=== PATIENT | female | born 1940 | race Asian ===

== ENCOUNTER 2024-04-13 18:06 | Inpatient (IN) | payer MEDICARE, MEDICAID, OTHER, SELFPAY ==
--- NOTE | 2024-04-13 15:10 | PC.SS ---
This SSD spoke with patient son Rashel, he said patient is DNR with selective treatment, send out for treatment. No spiritual care visits, he will be here on Tuesday to meet with this SSD.
--- NOTE | 2024-04-13 16:45 | EKG_ITS ---
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
[2024-04-13 18:00] VITALS: BP 124/56; PULSE 77; RESP 26; TEMP 36.6; O2SAT 98
--- NOTE | 2024-04-13 19:00 | XR_ITS ---
Examination: AP chest single view Technique: AP portable semiupright chest single view Exam date and time: April 13, 2024 at 0724 hrs. Indications: Status post tracheostomy tube placement Findings: Significant opacity left lung with volume loss Moderate right mild vascular congestion Tracheostomy tube tip 6.2 cm above segundo Impression: Interval significant atelectasis and possible pneumonia left lung, consider mucus plugging left mainstem bronchus, clinical correlation advised and follow-up recommended
[2024-04-13 19:10] VITALS: PULSE 73; RESP 18; O2SAT 95
[2024-04-13 19:26] LABS: Basophils # (Auto) 0.1 Thou/mm3 (0.0-0.2); Basophils % (Auto) 0 % (0-2.5); Eosinophils # (Auto) 0.1 Thou/mm3 (0.0-0.5); Eosinophils % (Auto) 1 % (0-10); Hematocrit 26.8 % (36.0-46.0); Hemoglobin 8.5 g/dL (12.0-16.0); Immature Granulocytes % (Auto) 1 % (0-0); Immature Granulocytes Auto 0.06 Thou/mm3 (0.00-0.00); Lymphocytes # (Auto) 1.3 Thou/mm3 (1.0-4.8); Lymphocytes % (Auto) 11 % (10-50); Mean Corpuscular HGB Conc 31.7 g/dl (31.0-37.0); Mean Corpuscular Hemoglobin 29.4 pg (25.0-35.0); Mean Corpuscular Volume 93 fL (80-100); Monocytes # (Auto) 0.8 Thou/mm3 (0.0-0.8); Monocytes % (Auto) 6 % (0-12); Neutrophils # (Auto) 10.1 Thou/mm3 (1.8-7.7); Neutrophils % (Auto) 81 % (37-80); Nucleated Red Blood Cell % 0 /100 WBC (0); Platelet Count 384 Thou/mm3 (140-440); RDW Standard Deviation 54.6 fL (36.4-46.3); Red Blood Count 2.89 Miln/mm3 (4.00-5.20); White Blood Count 12.4 Thou/mm3 (3.6-11.0)
--- NOTE | 2024-04-13 19:40 | PC.ADMIT ---
REsident was admitted to this unit under the care of Dr. Hernandez resident arrived from [facility] via gurney accompanied by Ambulance crew and RT. Resident awake upon arrival able to track, does not follow verbal commands. trach in place on blow by mist with 8L 30% fio2. No respiratory distress noted upon arrival. complete body assessment done. Skin dry and scaly throughout, Pressure injury (deep tissue injury noted to sacral area, pictures taken, initiated treatment, trace edema noted to feet elevated extremities, repositioned on her side, Hector catheter will be considered due to wound issue. Carried out most of new orders hand off report given to Shanel MONROY.
--- NOTE | 2024-04-13 19:44 | PC.NURSE ---
Resident admit from [facility] at 1804, awake and does not appear to be in any distress. Patient has oxygen in place, Blow-by. 11/24. moving all extremities. patient has two pressure area noted, on sacrum and her right side. appear to be in no pain at this time.Vital signs are within normal limits, will continue to monitor.
--- NOTE | 2024-04-13 20:00 | PC.NURSE ---
RESIDENT RESTING WITH EYES CLOSED. RESIDENT AWAKENED/OPENED EYES WHEN CALLED BY NAME. WHEN CALLED BY NAME BY OTHER NURSE, RESIDENT TURNED TO HER. NO DISTRESS/ NO DISCOMFORT NOTED. DAUGHTER ELISEO AT THE BEDSIDE.
[2024-04-13 20:17] LABS: Alanine Aminotransferase 22 U/L (10-49); Albumin, Serum 3.3 gm/dL (3.4-4.8); Albumin/Globulin Ratio 1.1 (1.2-2.2); Alkaline Phosphatase 68 U/L (46-116); Anion Gap 7 (7-16); Aspartate Amino Transferase 32 U/L (0-34); BUN/Creatinine Ratio 40 Ratio (12-20); Bilirubin,Total 0.7 mg/dL (0.3-1.2); Blood Urea Nitrogen 32 mg/dL (9-23); Calcium 8.8 mg/dL (8.3-10.6); Calcium (Corrected) 9.4 mg/dL (8.5-10.1); Chloride 105 mMol/L (98-107); Creatinine (Component) 0.8 mg/dL (0.6-1.3); Globulin 3.1 gm/dL (2.3-3.5); Glucose 172 mg/dL (74-106); Osmolality,Calculated 295 (275-295); Potassium 4.2 mMol/L (3.4-5.1); Sodium 143 mMol/L (136-145); Total Protein 6.4 gm/dL (5.7-8.2); eGFR > 60 See Note
[2024-04-13 20:30] LABS: Base Excess 9 (-3-3); HCO3 33 mEq/L (20-26); Inspired Oxygen, FIO2 30 %; O2 Saturation 92 % (91-98); PCO2 42 mmHg (32.0-48.0); pH, Arterial 7.51 (7.35-7.45)
[2024-04-13 20:31] LABS: Allen Test Not Performed; Puncture Site Left Radial
[2024-04-13 20:38] LABS: PO2 59 mmHg (83-108)
[2024-04-13 20:40] VITALS: BP 119/59; PULSE 78; RESP 22; TEMP 36.8; O2SAT 97
--- NOTE | 2024-04-13 20:45 | PC.NURSE ---
DR. POND NOTIFIED OF LAB RESULTS. ABG(METABOLIC ALKALOSIS PER MD) ORDERED ABG F/U IN ONE WEEK. REVIEWED CBC AND CMP WITH DR. POND. NEW ORDERS RECEIVED TO F/U LABS IN 4 DAYS.
[2024-04-13 21:28] VITALS: BP 119/59; PULSE 78
--- NOTE | 2024-04-13 23:05 | PD.SAHP ---
Physical exam Physical Exam Vital signs: Temp Pulse Resp BP Pulse Ox O2 Del Method O2 Flow Rate 98.4 F 72 19 112/54 L 94 L Blow-by 8 04/15/24 11:46 04/15/24 11:46 04/15/24 11:46 04/15/24 11:46 04/15/24 09:00 04/14/24 17:05 04/15/24 09:00 FiO2 30 04/15/24 09:00 Narrative: Elderly female, bed bound and not moving her extremities. Comfortable and in no distress and occasionally operns her eyes and some eye tracking but no evident response to verbal commands. Constitutional Comments: VSS HEENT Exam Head: Present normocephalic and atraumatic Eye: Present PERRL ENT: Present mucous membranes moist and nares patent Neck Exam Neck: Present supple Comments: Tracheostomy in place, site clean Chest/Breast/Axilla Exam Comments: NAD Respiratory Exam Respiratory: Present chest non-tender, lungs clear, normal breath sounds and no resp distress Cardiovascular Exam Comments: Irregularly irregular pulse, S2 +, no evident murmurs or rubs Abdominal Exam Abdominal: Present soft and normoactive bowel sounds Comments: Feeding G tube in place, site clean Rectal Exam Comments: deferred Exam Comments: deferred Extremities Exam Extremities: Present edema and pulses intact Back/Spine/Pelvis Exam Comments: NAD Skin Exam Skin: Present intact Comments: Decubitus over coccyx/sacrum Neurological Exam Comments: Altered mental status secondary to h/o multiple strokes and other comorbidities. Occasional eye tracking, no cognizant response, general weakness and not mocing any of her extremities. Incontinent of B and B Rehabilitation potential Diagnosis (1) CVA (cerebrovascular accident): Status: Chronic (2) Altered mental status: Status: Chronic (3) Deep venous thrombosis: Status: Chronic (4) Decubital ulcer: Status: Chronic (5) Tracheostomy in place: Status: Chronic (6) G tube feedings: Status: Chronic Assessment & Plan Assessment: Pt bed bound with all above etilologies, chronic, and fully dependent for all care . Current medications reviewed and continued as ongoing from the previous facility and reassess Prognosis Prognosis: Poor for recovery towards any kind of independent living Goals Full support and ensure comfort HPI History of Present Illness HPI: Pt is a 83 yrs of age female being admitted to long term acute care registered nurse care at [facility] at [facility], [place], [place]. with the diagnosis of: Altered mental status, chronic and multifactorial; Multiple vascular territory strokes; h/o SVT; Chronic A-Fibrillation / DVT on anticoagulants, and bed bound with Tracheostomy and feeding G tube
[2024-04-13 23:54] VITALS: BP 142/66; PULSE 79; RESP 17; TEMP 36.2; O2SAT 98
[2024-04-14] VITALS (9 sets, daily range): BP systolic 115–136; BP diastolic 56–63; PULSE 68–85; RESP 17–21; TEMP 36.6–37; O2SAT 92–99
[2024-04-14] MEDS: IPRATROPIUM/ALBUTEROL 3 ML AMPUL.NEB INH ×2 (01:07→18:38)
[2024-04-14] MEDS: INSULIN REGULAR, HUMAN 100 UNIT/ML VIAL SC ×2 (05:30→17:26)
[2024-04-14] MEDS: AMLODIPINE 10 MG TABLET GT (09:10)
[2024-04-14] MEDS: APIXABAN 2.5 MG TABLET GT ×2 (09:10→20:27)
[2024-04-14] MEDS: VIT D3 GT (09:10)
[2024-04-14] MEDS: CALCIUM GT (09:10)
[2024-04-14] MEDS: AMIODARONE 200 MG TABLET GT (09:10)
[2024-04-14] MEDS: METOPROLOL 25 MG TABLET GT ×2 (09:10→20:27)
[2024-04-14] MEDS: SENNOSIDES 8.6 MG TABLET GT ×2 (09:10→20:28)
--- NOTE | 2024-04-14 12:49 | PC.NURSE ---
Called Dr Hernandez and verbally reported resident's EKG result, no new orders made. Verbally reported chest x-ray result with order received for mucomyst BID x 3 days, re-eval. RT Bianka made aware. Resident stable at this time. No s/s of respiratory distress noted.
[2024-04-14] MEDS: ATORVASTATIN 40 MG TABLET 80 MG GT (20:27)
[2024-04-15] VITALS (14 sets, daily range): BP systolic 112–131; BP diastolic 51–65; PULSE 55–88; RESP 16–24; TEMP 36.6–37.6; O2SAT 94–100
[2024-04-15] MEDS: INSULIN REGULAR, HUMAN 100 UNIT/ML VIAL SC ×3 (00:10→18:45)
[2024-04-15] MEDS: ACETYLCYSTEINE 10% 3 ML VIAL INH ×2 (01:06→12:46)
[2024-04-15] MEDS: IPRATROPIUM/ALBUTEROL 3 ML AMPUL.NEB INH ×4 (01:06→18:47)
[2024-04-15] MEDS: AMIODARONE 200 MG TABLET GT (09:25)
[2024-04-15] MEDS: APIXABAN 2.5 MG TABLET GT ×2 (09:26→21:02)
[2024-04-15] MEDS: AMLODIPINE 10 MG TABLET GT (09:26)
[2024-04-15] MEDS: VIT D3 GT (09:27)
[2024-04-15] MEDS: CALCIUM GT (09:27)
[2024-04-15] MEDS: METOPROLOL 25 MG TABLET GT ×2 (09:27→21:03)
[2024-04-15] MEDS: SENNOSIDES 8.6 MG TABLET GT ×2 (09:28→21:03)
[2024-04-15] MEDS: ATORVASTATIN 40 MG TABLET 80 MG GT (21:03)
[2024-04-16] VITALS (11 sets, daily range): BP systolic 114–143; BP diastolic 53–65; PULSE 62–78; RESP 16–20; TEMP 36.6–36.9; O2SAT 90–100; BMI 19.3
[2024-04-16] MEDS: IPRATROPIUM/ALBUTEROL 3 ML AMPUL.NEB INH ×4 (00:33→18:29)
[2024-04-16] MEDS: ACETYLCYSTEINE 10% 3 ML VIAL INH ×2 (00:33→12:49)
[2024-04-16] MEDS: INSULIN REGULAR, HUMAN 100 UNIT/ML VIAL SC ×3 (00:43→11:55)
[2024-04-16] MEDS: AMIODARONE 200 MG TABLET GT (08:49)
[2024-04-16] MEDS: AMLODIPINE 10 MG TABLET GT (08:49)
[2024-04-16] MEDS: VIT D3 GT (08:52)
[2024-04-16] MEDS: CALCIUM GT (08:52)
[2024-04-16] MEDS: METOPROLOL 25 MG TABLET GT ×2 (08:52→20:52)
[2024-04-16] MEDS: APIXABAN 2.5 MG TABLET GT (08:52)
[2024-04-16] MEDS: SENNOSIDES 8.6 MG TABLET GT ×2 (08:53→20:53)
--- NOTE | 2024-04-16 16:20 | PD.SAPROG ---
Progress Note - SubAcute DIAGNOSIS (1) CVA (cerebrovascular accident): Status: Chronic (2) Altered mental status: Status: Chronic (3) Deep venous thrombosis: Status: Chronic (4) Decubital ulcer: Status: Chronic (5) Tracheostomy in place: Status: Chronic (6) G tube feedings: Status: Chronic SUBJECTIVE Fever:: none GI:: unchanged Shortness of Breath:: none Pain:: none OBJECTIVE Most recent vital signs: Last Vital Signs Temp 96.8 F 04/20/24 17:22 Pulse 84 04/20/24 17:22 Resp 18 04/20/24 17:22 BP 118/52 L 04/20/24 17:22 Pulse Ox 100 04/20/24 17:22 O2 Del Method Blow-by 04/20/24 17:22 O2 Flow Rate 10 04/20/24 12:20 FiO2 40 04/20/24 12:20 Neurological:: eye tracking (sometimes) Answers questions:: no Respiratory:: lungs clear and shallow breathing Cardiovascular: RRR Abdomen: soft and nontender Tracheostomy:: to blow by Feeding per:: G tube ASSESSMENT & PLAN Assessment: Pt bed bound with all above etilologies, chronic, and fully dependent for all care . Current medications reviewed and continued as ongoing from the previous facility and reassessed. Prognosis for meaningful recovery towards independent status is very poor Plan: Current treatment reviewed and continued.
[2024-04-16] MEDS: ATORVASTATIN 40 MG TABLET 80 MG GT (20:52)
[2024-04-17] VITALS (11 sets, daily range): BP systolic 101–131; BP diastolic 55–88; PULSE 60–88; RESP 16–20; TEMP 36.4–37; O2SAT 94–100
[2024-04-17] MEDS: INSULIN REGULAR, HUMAN 100 UNIT/ML VIAL SC ×4 (00:43→16:55)
[2024-04-17] MEDS: IPRATROPIUM/ALBUTEROL 3 ML AMPUL.NEB INH ×4 (00:49→19:07)
[2024-04-17] MEDS: ACETYLCYSTEINE 10% 3 ML VIAL INH (00:49)
[2024-04-17 07:49] LABS: Basophils % (Auto) 0 % (0-2.5); Eosinophils % (Auto) 0 % (0-10); Hematocrit 23.8 % (36.0-46.0); Immature Granulocytes % (Auto) 0 % (0-0); Immature Granulocytes Auto 0.07 Thou/mm3 (0.00-0.00); Lymphocytes # (Auto) 0.9 Thou/mm3 (1.0-4.8); Lymphocytes % (Auto) 5 % (10-50); Mean Corpuscular HGB Conc 32.8 g/dl (31.0-37.0); Mean Corpuscular Hemoglobin 29.8 pg (25.0-35.0); Mean Corpuscular Volume 91 fL (80-100); Monocytes % (Auto) 6 % (0-12); Neutrophils # (Auto) 14.6 Thou/mm3 (1.8-7.7); Neutrophils % (Auto) 88 % (37-80); Nucleated Red Blood Cell % 0 /100 WBC (0); Platelet Count 366 Thou/mm3 (140-440); RDW Standard Deviation 51.4 fL (36.4-46.3); Red Blood Count 2.62 Miln/mm3 (4.00-5.20); White Blood Count 16.6 Thou/mm3 (3.6-11.0)
[2024-04-17 07:56] LABS: Hemoglobin 7.8 g/dL (12.0-16.0)
[2024-04-17] MEDS: AMLODIPINE 10 MG TABLET GT (08:08)
[2024-04-17] MEDS: AMIODARONE 200 MG TABLET GT (08:08)
[2024-04-17] MEDS: VIT D3 GT (08:09)
[2024-04-17] MEDS: METOPROLOL 25 MG TABLET GT ×2 (08:09→20:30)
[2024-04-17] MEDS: CALCIUM GT (08:09)
[2024-04-17] MEDS: SENNOSIDES 8.6 MG TABLET GT ×2 (08:10→20:30)
[2024-04-17 08:17] LABS: Alanine Aminotransferase 18 U/L (10-49); Albumin, Serum 3.2 gm/dL (3.4-4.8); Alkaline Phosphatase 63 U/L (46-116); Anion Gap 7 (7-16); Aspartate Amino Transferase 16 U/L (0-34); BUN/Creatinine Ratio 31 Ratio (12-20); Bilirubin,Total 0.5 mg/dL (0.3-1.2); Blood Urea Nitrogen 25 mg/dL (9-23); Calcium 8.4 mg/dL (8.3-10.6); Chloride 100 mMol/L (98-107); Creatinine (Component) 0.8 mg/dL (0.6-1.3); Estimated Creatinine Clearance 39.1 mL/min (>60); Globulin 3.1 gm/dL (2.3-3.5); Glucose 235 mg/dL (74-106); Osmolality,Calculated 282 (275-295); Potassium 4.7 mMol/L (3.4-5.1); Sodium 135 mMol/L (136-145); Total Protein 6.3 gm/dL (5.7-8.2); eGFR > 60 See Note
[2024-04-17] MEDS: APIXABAN 2.5 MG TABLET GT ×2 (09:12→20:30)
--- NOTE | 2024-04-17 12:55 | PC.SS ---
This SSD met with resident RP son Pepe and his , resident was asleep for most of the visit. Family denies history of anxiety and depression no trauma. Family stated they are unsure if they will bring her any clothing, Family declines to have spiritual care visits from sales account executive. They are aware if they do it will be labeled and added to inventory. This SSF will continue to make daily contact with resident and will monitor for changes in mood and behavior.
--- NOTE | 2024-04-17 15:42 | PC.DIETICIAN ---
Dietitian note: IDT agrees to increase TF formula for wound care and wt maintenance/gain. Glucerna 1.2 @ 55ml/hr x 22hrs via Gtube by pump to provide: 1210ml total vol, 1452kcal, 72g protein. Thank you
[2024-04-17] MEDS: ATORVASTATIN 40 MG TABLET 80 MG GT (20:30)
[2024-04-18] VITALS (12 sets, daily range): BP systolic 118–133; BP diastolic 54–62; PULSE 72–94; RESP 18–26; TEMP 36.2–36.9; O2SAT 92–100
[2024-04-18] MEDS: INSULIN REGULAR, HUMAN 100 UNIT/ML VIAL SC ×4 (05:15→17:15)
[2024-04-18] MEDS: IPRATROPIUM/ALBUTEROL 3 ML AMPUL.NEB INH ×4 (06:49→18:40)
[2024-04-18] MEDS: AMLODIPINE 10 MG TABLET GT (08:21)
[2024-04-18] MEDS: CALCIUM GT (08:24)
[2024-04-18] MEDS: APIXABAN 2.5 MG TABLET GT ×2 (08:24→20:27)
[2024-04-18] MEDS: VIT D3 GT (08:24)
[2024-04-18] MEDS: METOPROLOL 25 MG TABLET GT ×2 (08:24→20:27)
[2024-04-18] MEDS: SENNOSIDES 8.6 MG TABLET GT ×2 (08:25→20:28)
[2024-04-18] MEDS: MULTIVITAMIN W MINERALS 1 EACH TABLET GT (08:25)
--- NOTE | 2024-04-18 15:07 | PC.NURSE ---
Resident's latest WBC 16.6, stable , afebrile at this time. Called Dr Hernandez and made aware with order received to repeat CBC in 4 days.
--- NOTE | 2024-04-18 15:15 | PC.IP ---
Spoke with son regarding Pneumococcal vaccine and defers until he is able to read the CDC VIS. Agreed to leave copy in resident room. Will call again to confirm receipt of information after this weekend.
[2024-04-18] MEDS: ATORVASTATIN 40 MG TABLET 80 MG GT (20:27)
[2024-04-19] VITALS (11 sets, daily range): BP systolic 111–135; BP diastolic 52–64; PULSE 74–97; RESP 17–24; TEMP 36.6–36.9; O2SAT 92–100
[2024-04-19] MEDS: IPRATROPIUM/ALBUTEROL 3 ML AMPUL.NEB INH ×4 (00:20→18:35)
[2024-04-19] MEDS: INSULIN REGULAR, HUMAN 100 UNIT/ML VIAL SC ×3 (05:36→17:07)
[2024-04-19] MEDS: APIXABAN 2.5 MG TABLET GT ×2 (09:19→20:27)
[2024-04-19] MEDS: AMLODIPINE 10 MG TABLET GT (09:19)
[2024-04-19] MEDS: AMIODARONE 200 MG TABLET GT (09:19)
[2024-04-19] MEDS: SENNOSIDES 8.6 MG TABLET GT ×2 (09:20→20:28)
[2024-04-19] MEDS: VIT D3 GT (09:20)
[2024-04-19] MEDS: METOPROLOL 25 MG TABLET GT ×2 (09:20→20:28)
[2024-04-19] MEDS: CALCIUM GT (09:20)
[2024-04-19] MEDS: MULTIVITAMIN W MINERALS 1 EACH TABLET GT (09:20)
[2024-04-19] MEDS: ATORVASTATIN 40 MG TABLET 80 MG GT (20:27)
[2024-04-19 22:45] LABS: Basophils # (Auto) 0.1 Thou/mm3 (0.0-0.2); Basophils % (Auto) 0 % (0-2.5); Eosinophils % (Auto) 0 % (0-10); Immature Granulocytes % (Auto) 1 % (0-0); Immature Granulocytes Auto 0.17 Thou/mm3 (0.00-0.00); Lymphocytes % (Auto) 5 % (10-50); Mean Corpuscular HGB Conc 33.6 g/dl (31.0-37.0); Mean Corpuscular Hemoglobin 29.8 pg (25.0-35.0); Mean Corpuscular Volume 89 fL (80-100); Monocytes # (Auto) 1.6 Thou/mm3 (0.0-0.8); Monocytes % (Auto) 7 % (0-12); Neutrophils # (Auto) 19.3 Thou/mm3 (1.8-7.7); Neutrophils % (Auto) 87 % (37-80); Nucleated Red Blood Cell % 0 /100 WBC (0); Platelet Count 407 Thou/mm3 (140-440); RDW Standard Deviation 48.8 fL (36.4-46.3); Red Blood Count 2.82 Miln/mm3 (4.00-5.20); White Blood Count 22.2 Thou/mm3 (3.6-11.0)
[2024-04-19 22:48] LABS: Collection Type, Urine Catheter
[2024-04-19 22:54] LABS: Hemoglobin 8.4 g/dL (12.0-16.0)
[2024-04-19 23:13] LABS: Procalcitonin 0.45 ng/ml (0.0-0.49)
[2024-04-19 23:13] LABS: Bilirubin,Urine Negative (Negative); Blood,Urine 1+ (Negative); Clarity,Urine Clear (Clear/Hazy); Color,Urine Lt-Yellow (Lt Yel-Yel); Culture Indicated,Urine Not Indicated; Glucose, Urine Negative (Negative); Ketones,Urine Negative (Negative); Leukocyte Esterase,Urine Positive (Negative); Nitrite,Urine Negative (Negative); PH,Urine 8.5 (5.0-7.0); Protein,Urine 3+ (Neg - Trace); RBC,Urine 22 /hpf (0-3); Specific Gravity,Urine 1.014 (1.001-1.035); Squamous Epithelial Cell,Urine < 1 /hpf (0-5); WBC,Urine 8 /hpf (0-5)
[2024-04-19 23:37] LABS: COVID-19 Antigen (In-House) Negative (Negative); Influenza A Ag Negative; Influenza B Ag Negative
[2024-04-20] VITALS (11 sets, daily range): BP systolic 109–126; BP diastolic 52–78; PULSE 75–94; RESP 16–20; TEMP 36–38.4; O2SAT 92–100
[2024-04-20] MEDS: IPRATROPIUM/ALBUTEROL 3 ML AMPUL.NEB INH ×4 (00:20→18:45)
[2024-04-20] MEDS: CEFTRIAXONE 1 GM VIAL.PORT IVP ×2 (00:32→20:47)
[2024-04-20] MEDS: INSULIN REGULAR, HUMAN 100 UNIT/ML VIAL SC ×4 (00:36→17:12)
--- NOTE | 2024-04-20 00:56 | PC.NURSE ---
Was notified by staff that resident had rectal temp of 102.3 at 2100, cooling measures initiated after one hour rectal temp was 101.5. Temp protocol initiated, notified Dr Hernandez of lab results and recent chest x-ray, episodes of desaturation and elevated temps, new order to start resident on Rocephin IV daily for PNA x 5 days or until culture results are back.
[2024-04-20 08:11] LABS: Base Excess 6 (-3-3); HCO3 29 mEq/L (20-26); Inspired Oxygen, FIO2 35 %; O2 Saturation 95 % (91-98); PCO2 36 mmHg (32.0-48.0); PO2 64 mmHg (83-108); pH, Arterial 7.51 (7.35-7.45)
[2024-04-20 08:12] LABS: Allen Test Performed/OK; Puncture Site Right Radial
[2024-04-20] MEDS: AMIODARONE 200 MG TABLET GT (08:52)
[2024-04-20] MEDS: SENNOSIDES 8.6 MG TABLET GT ×2 (08:53→21:13)
[2024-04-20] MEDS: CALCIUM GT (08:53)
[2024-04-20] MEDS: APIXABAN 2.5 MG TABLET GT ×2 (08:53→21:11)
[2024-04-20] MEDS: AMLODIPINE 10 MG TABLET GT (08:53)
[2024-04-20] MEDS: VIT D3 GT (08:53)
[2024-04-20] MEDS: METOPROLOL 25 MG TABLET GT ×2 (08:53→21:14)
[2024-04-20] MEDS: MULTIVITAMIN W MINERALS 1 EACH TABLET GT (08:53)
--- NOTE | 2024-04-20 13:30 | PC.PT ---
PT eval completed. Patient is referred to RNA/OPHTHALMIC LENS INSPECTOR program.
--- NOTE | 2024-04-20 17:21 | PC.NURSE ---
Seen by Dr Hernandez,no new orders made.
--- NOTE | 2024-04-20 19:21 | PC.NURSE ---
No adverse reaction noted from Rocephin for PNA. Not in any form of distress. No s/s of pain or discomfort. GT feeding tolerated well. Afebrile.
--- NOTE | 2024-04-20 19:22 | PC.NURSE ---
Resident's son Jemal came in to visit today and LEAVE SPECIALIST in charge gave update and made aware of the antibiotic.
--- NOTE | 2024-04-20 20:44 | PD.SAPROG ---
Progress Note - SubAcute DIAGNOSIS (1) CVA (cerebrovascular accident): Status: Chronic (2) Altered mental status: Status: Chronic (3) Deep venous thrombosis: Status: Chronic (4) Decubital ulcer: Status: Chronic (5) Tracheostomy in place: Status: Chronic (6) G tube feedings: Status: Chronic SUBJECTIVE Fever:: none GI:: unchanged Shortness of Breath:: none Pain:: none OBJECTIVE Most recent vital signs: Last Vital Signs Temp 96.8 F 04/20/24 17:22 Pulse 84 04/20/24 17:22 Resp 18 04/20/24 17:22 BP 118/52 L 04/20/24 17:22 Pulse Ox 100 04/20/24 17:22 O2 Del Method Blow-by 04/20/24 17:22 O2 Flow Rate 10 04/20/24 12:20 FiO2 40 04/20/24 12:20 Neurological:: eye tracking (sometimes) Answers questions:: no Respiratory:: lungs clear and shallow breathing Cardiovascular: RRR Abdomen: soft and nontender Tracheostomy:: to blow by Feeding per:: G tube ASSESSMENT & PLAN Assessment: Pt bed bound with all above etilologies, chronic, and fully dependent for all care . Current medications reviewed and continued as ongoing from the previous facility and reassessed. Prognosis for meaningful recovery towards independent status is very poor. No new issues Plan: Current treatment reviewed and continued.
[2024-04-20] MEDS: ATORVASTATIN 40 MG TABLET 80 MG GT (21:14)
[2024-04-21] VITALS: BP 114/53; PULSE 77; RESP 20; TEMP 37.6; O2SAT 100
[2024-04-21] MEDS: INSULIN REGULAR, HUMAN 100 UNIT/ML VIAL SC ×2 (00:03→05:43)
[2024-04-21] MEDS: IPRATROPIUM/ALBUTEROL 3 ML AMPUL.NEB INH (00:20)
[2024-04-21 00:25] VITALS: PULSE 78; PULSE 84; RESP 18; RESP 20; O2SAT 99
[2024-04-21 05:52] VITALS: BP 116/54; PULSE 83; RESP 18; TEMP 38.9; O2SAT 92
--- NOTE | 2024-04-21 06:43 | PC.NURSE ---
made aware of gram positive cocci to both aerobic bottles for blood cultures, resident had a temp. of 102F rectally at 0528, tyl. 650mg administered and temp. came down to 100.7F, new order to send resident to ER for evaluation and treatment if indicated for possible sepsis, report given to ER charge nurse, this nurse left a voicemail to next of kin to call back facility, RT, nurse and CALL MANAGER took resident to ER via bed at 0715, report given to day shift nurse.
--- NOTE | 2024-04-21 08:06 | PC.NURSE ---
Called Rashel Prince. for resident to notified Resident had been sent out for further tx evaluation. Full report also given to Kiarra charge nurse at ED.
[2024-04-27 13:30] VITALS: BP 134/69; PULSE 65; RESP 20; TEMP 36
--- NOTE | 2024-04-27 14:13 | PC.NURSE ---
Resident came back from Tele at 13:09 via bed with RT, RN, CERTIFIED OPTICIAN . Resident awake and non verbal. No s/s of respiratory distress noted. Resident with discharge orders to start on Augmentin BID x 7 days, CBC in one week. With order of Eliquis on hold and to ask PCP when to resume the medicine. As per RN report, resident doesn't have any episode of bleeding, medicine was on hold due to hemoglobin of 6.7 previously. Order received from Dr Hernandez to give it x 3 months and evaluate it after. With discharge recommendation to do echocardiogarm, no need to do at this time as per Dr Hernandez. Called resident's son Rashel and made aware that resident is back in subacute and made him aware of the order of antibiotic.
--- NOTE | 2024-04-27 16:51 | PD.SAPROG ---
Progress Note - SubAcute DIAGNOSIS (1) CVA (cerebrovascular accident): Status: Chronic (2) Altered mental status: Status: Chronic (3) Deep venous thrombosis: Status: Chronic (4) Decubital ulcer: Status: Chronic (5) Tracheostomy in place: Status: Chronic (6) G tube feedings: Status: Chronic SUBJECTIVE Fever:: none GI:: unchanged Shortness of Breath:: none Pain:: none OBJECTIVE Most recent vital signs: Last Vital Signs Temp 102.0 F H 04/21/24 05:52 Pulse 83 04/21/24 05:52 Resp 18 04/21/24 05:52 BP 116/54 L 04/21/24 05:52 Pulse Ox 92 L 04/21/24 05:52 O2 Del Method Blow-by 04/21/24 05:52 O2 Flow Rate 10 04/21/24 05:52 FiO2 40 04/21/24 05:52 Neurological:: eye tracking (sometimes) Answers questions:: no Respiratory:: lungs clear and shallow breathing Cardiovascular: RRR Abdomen: soft and nontender Tracheostomy:: to blow by Feeding per:: G tube ASSESSMENT & PLAN Assessment: Pt bed bound with all above etilologies, chronic, and fully dependent for all care . Current medications reviewed and continued as ongoing from the previous facility and reassessed. Prognosis for meaningful recovery towards independent status is very poor. Received back from acute care on antibiotics. Now afebrile. Will disciss Hospice care with family. Plan: Current treatment reviewed and continued.
--- NOTE | 2024-04-27 17:11 | PC.NURSE ---
Seen by Dr Hernandez today, no new orders made
[2024-04-27] MEDS: INSULIN REGULAR, HUMAN 100 UNIT/ML VIAL SC (17:48)
[2024-04-27 18:00] VITALS: BP 152/78; PULSE 66; RESP 20; TEMP 36.4; O2SAT 97
[2024-04-27 19:40] VITALS: PULSE 64; PULSE 68; RESP 18; O2SAT 99
[2024-04-27] MEDS: IPRATROPIUM/ALBUTEROL 3 ML AMPUL.NEB INH (19:40)
[2024-04-27] MEDS: ATORVASTATIN 40 MG TABLET 80 MG GT (21:44)
[2024-04-27] MEDS: APIXABAN 2.5 MG TABLET GT (21:44)
[2024-04-27] MEDS: AMOX/CLAV POT 875 MG 1 EACH TABLET GT (21:44)
[2024-04-27 21:45] VITALS: BP 140/61; PULSE 67
[2024-04-27] MEDS: SENNOSIDES 8.6 MG TABLET GT (21:45)
[2024-04-27] MEDS: METOPROLOL 25 MG TABLET GT (21:45)
[2024-04-27 23:49] VITALS: BP 145/71; PULSE 64; RESP 17; TEMP 36.1
[2024-04-28] VITALS (12 sets, daily range): BP systolic 114–159; BP diastolic 55–72; PULSE 58–80; RESP 16–24; TEMP 36.1–36.7; O2SAT 98–100
[2024-04-28] MEDS: IPRATROPIUM/ALBUTEROL 3 ML AMPUL.NEB INH ×4 (01:32→19:20)
[2024-04-28] MEDS: INSULIN REGULAR, HUMAN 100 UNIT/ML VIAL SC ×4 (05:51→23:22)
--- NOTE | 2024-04-28 06:49 | PC.NURSE ---
resident laying in bed resting at this time. no s/s of distress and discomfort. started atb for PNA with no adverse reaction noted.
[2024-04-28 07:44] LABS: Basophils # (Auto) 0.1 Thou/mm3 (0.0-0.2); Basophils % (Auto) 0 % (0-2.5); Eosinophils # (Auto) 0.2 Thou/mm3 (0.0-0.5); Eosinophils % (Auto) 2 % (0-10); Hematocrit 29.6 % (36.0-46.0); Hemoglobin 9.6 g/dL (12.0-16.0); Immature Granulocytes % (Auto) 1 % (0-0); Immature Granulocytes Auto 0.11 Thou/mm3 (0.00-0.00); Lymphocytes # (Auto) 1.2 Thou/mm3 (1.0-4.8); Lymphocytes % (Auto) 9 % (10-50); Mean Corpuscular HGB Conc 32.4 g/dl (31.0-37.0); Mean Corpuscular Hemoglobin 29.2 pg (25.0-35.0); Mean Corpuscular Volume 90 fL (80-100); Monocytes # (Auto) 0.7 Thou/mm3 (0.0-0.8); Monocytes % (Auto) 5 % (0-12); Neutrophils % (Auto) 84 % (37-80); Nucleated Red Blood Cell % 0 /100 WBC (0); Platelet Count 451 Thou/mm3 (140-440); RDW Standard Deviation 48.5 fL (36.4-46.3); Red Blood Count 3.29 Miln/mm3 (4.00-5.20); White Blood Count 14.4 Thou/mm3 (3.6-11.0)
[2024-04-28 08:15] LABS: Alanine Aminotransferase 37 U/L (10-49); Albumin, Serum 2.7 gm/dL (3.4-4.8); Albumin/Globulin Ratio 0.9 (1.2-2.2); Alkaline Phosphatase 75 U/L (46-116); Anion Gap 7 (7-16); Aspartate Amino Transferase 26 U/L (0-34); BUN/Creatinine Ratio 33 Ratio (12-20); Bilirubin,Total 0.4 mg/dL (0.3-1.2); Blood Urea Nitrogen 20 mg/dL (9-23); Calcium 8.3 mg/dL (8.3-10.6); Calcium (Corrected) 9.3 mg/dL (8.5-10.1); Chloride 99 mMol/L (98-107); Creatinine (Component) 0.6 mg/dL (0.6-1.3); Estimated Creatinine Clearance 53.6 mL/min (>60); Globulin 2.9 gm/dL (2.3-3.5); Glucose 196 mg/dL (74-106); Osmolality,Calculated 277 (275-295); Potassium 4.7 mMol/L (3.4-5.1); Sodium 135 mMol/L (136-145); Total Protein 5.6 gm/dL (5.7-8.2); eGFR > 60 See Note
[2024-04-28] MEDS: AMIODARONE 200 MG TABLET GT (08:33)
[2024-04-28] MEDS: AMLODIPINE 10 MG TABLET GT (08:34)
[2024-04-28] MEDS: AMOX/CLAV POT 875 MG 1 EACH TABLET GT ×2 (08:35→21:07)
[2024-04-28] MEDS: VIT D3 GT (08:36)
[2024-04-28] MEDS: MULTIVITAMIN W MINERALS 1 EACH TABLET GT (08:36)
[2024-04-28] MEDS: CALCIUM GT (08:36)
[2024-04-28] MEDS: METOPROLOL 25 MG TABLET GT ×2 (08:36→21:07)
[2024-04-28] MEDS: APIXABAN 2.5 MG TABLET GT ×2 (08:36→21:07)
[2024-04-28] MEDS: SENNOSIDES 8.6 MG TABLET GT ×2 (08:37→21:08)
[2024-04-28] MEDS: ATORVASTATIN 40 MG TABLET 80 MG GT (21:07)
[2024-04-29] VITALS (11 sets, daily range): BP systolic 105–144; BP diastolic 57–69; PULSE 58–78; RESP 16–20; TEMP 36.1–36.4; O2SAT 95–100
[2024-04-29] MEDS: IPRATROPIUM/ALBUTEROL 3 ML AMPUL.NEB INH ×4 (01:02→19:26)
--- NOTE | 2024-04-29 03:42 | PC.NURSE ---
Resident currently on Augmentin for PNA, no side effects or adverse reaction noted, water given via GTube, resident aferile, resident in room sleeping with eyes closed, respirations even and unlabored, HOB elevated.
[2024-04-29] MEDS: INSULIN REGULAR, HUMAN 100 UNIT/ML VIAL SC ×3 (05:38→17:21)
[2024-04-29] MEDS: SENNOSIDES 8.6 MG TABLET GT ×2 (08:33→20:35)
[2024-04-29] MEDS: MULTIVITAMIN W MINERALS 1 EACH TABLET GT (08:33)
[2024-04-29] MEDS: VIT D3 GT (08:34)
[2024-04-29] MEDS: AMIODARONE 200 MG TABLET GT (08:34)
[2024-04-29] MEDS: AMOX/CLAV POT 875 MG 1 EACH TABLET GT ×2 (08:34→20:35)
[2024-04-29] MEDS: CALCIUM GT (08:34)
[2024-04-29] MEDS: APIXABAN 2.5 MG TABLET GT ×2 (08:34→20:35)
--- NOTE | 2024-04-29 17:51 | PC.NURSE ---
Resident continues on Augmentin per GT for PNA, no adverse reactions noted, resting quietly in bed, family visiting, continue to monitor
[2024-04-29] MEDS: METOPROLOL 25 MG TABLET GT (20:35)
[2024-04-29] MEDS: ATORVASTATIN 40 MG TABLET 80 MG GT (20:35)
[2024-04-30] VITALS (13 sets, daily range): BP systolic 123–155; BP diastolic 61–78; PULSE 64–86; RESP 16–20; TEMP 36.3–36.9; O2SAT 93–98; BMI 19.5
[2024-04-30] MEDS: INSULIN REGULAR, HUMAN 100 UNIT/ML VIAL SC ×3 (00:01→11:57)
[2024-04-30] MEDS: IPRATROPIUM/ALBUTEROL 3 ML AMPUL.NEB INH (01:35)
--- NOTE | 2024-04-30 05:31 | PC.NURSE ---
resident laying in bed and resting at this time. no s/s of distress and discomfort noted. remained on atb for PNA with no adverse reaction noted. will continue to monitor.
[2024-04-30] MEDS: AMLODIPINE 10 MG TABLET GT (08:38)
[2024-04-30] MEDS: AMIODARONE 200 MG TABLET GT (08:38)
[2024-04-30] MEDS: AMOX/CLAV POT 875 MG 1 EACH TABLET GT ×2 (08:41→21:00)
[2024-04-30] MEDS: APIXABAN 2.5 MG TABLET GT ×2 (08:41→21:01)
[2024-04-30] MEDS: VIT D3 GT (08:41)
[2024-04-30] MEDS: CALCIUM GT (08:41)
[2024-04-30] MEDS: METOPROLOL 25 MG TABLET GT ×2 (08:42→21:01)
[2024-04-30] MEDS: SENNOSIDES 8.6 MG TABLET GT ×2 (08:43→21:01)
[2024-04-30] MEDS: MULTIVITAMIN W MINERALS 1 EACH TABLET GT (08:43)
[2024-04-30] MEDS: ATORVASTATIN 40 MG TABLET 80 MG GT (21:01)
[2024-05-01] VITALS (11 sets, daily range): BP systolic 107–142; BP diastolic 63–70; PULSE 65–94; RESP 17–18; TEMP 36.2–36.4; O2SAT 96–100
[2024-05-01] MEDS: INSULIN REGULAR, HUMAN 100 UNIT/ML VIAL SC ×4 (00:28→17:19)
--- NOTE | 2024-05-01 06:07 | PC.NURSE ---
Resident continues on antibiotics for pneumonia. No adverse reaction noted. Fluids tolerated well via g-tube. SpOO2 @ 98% on 8L 30% FiO2. Bilateral lung sounds with noted wheezes. Suctioned as needed via trach with noted clear secretions, no s/s of pain or discomfort.
[2024-05-01] MEDS: IPRATROPIUM/ALBUTEROL 3 ML AMPUL.NEB INH ×3 (06:30→18:11)
[2024-05-01] MEDS: AMIODARONE 200 MG TABLET GT (08:46)
[2024-05-01] MEDS: AMLODIPINE 10 MG TABLET GT (08:46)
[2024-05-01] MEDS: AMOX/CLAV POT 875 MG 1 EACH TABLET GT ×2 (08:47→20:14)
[2024-05-01] MEDS: APIXABAN 2.5 MG TABLET GT ×2 (08:48→20:14)
[2024-05-01] MEDS: MULTIVITAMIN W MINERALS 1 EACH TABLET GT (08:49)
[2024-05-01] MEDS: CALCIUM GT (08:49)
[2024-05-01] MEDS: VIT D3 GT (08:49)
[2024-05-01] MEDS: METOPROLOL 25 MG TABLET GT (08:49)
[2024-05-01] MEDS: SENNOSIDES 8.6 MG TABLET GT ×2 (08:50→20:16)
--- NOTE | 2024-05-01 12:45 | PD.SAPROG ---
Progress Note - SubAcute DIAGNOSIS (1) CVA (cerebrovascular accident): Status: Chronic (2) Altered mental status: Status: Chronic (3) Deep venous thrombosis: Status: Chronic (4) Decubital ulcer: Status: Chronic (5) Tracheostomy in place: Status: Chronic (6) G tube feedings: Status: Chronic SUBJECTIVE Fever:: none GI:: unchanged Shortness of Breath:: none Pain:: none OBJECTIVE Most recent vital signs: Last Vital Signs Temp 96.8 F 05/04/24 05:29 Pulse 74 05/04/24 08:07 Resp 18 05/04/24 05:29 BP 134/65 H 05/04/24 08:07 Pulse Ox 98 05/04/24 05:29 O2 Del Method Blow-by 05/03/24 17:41 O2 Flow Rate 8 05/04/24 00:30 FiO2 30 05/04/24 00:30 Neurological:: eye tracking (sometimes) Answers questions:: no Respiratory:: lungs clear and shallow breathing Cardiovascular: RRR Abdomen: soft and nontender Tracheostomy:: to blow by Feeding per:: G tube ASSESSMENT & PLAN Assessment: Pt bed bound with all above etilologies, chronic, and fully dependent for all care . Current medications reviewed and continued as ongoing from the previous facility and reassessed. Prognosis for meaningful recovery towards independent status is very poor. Received back from acute care on antibiotics. Now afebrile. Will disciss Hospice care with family. No decisions yet. Plan: Current treatment reviewed and continued.
[2024-05-01] MEDS: ATORVASTATIN 40 MG TABLET 80 MG GT (20:14)
[2024-05-02] VITALS (13 sets, daily range): BP systolic 104–129; BP diastolic 55–64; PULSE 66–90; RESP 18–24; TEMP 36.4–36.6; O2SAT 97–100
[2024-05-02] MEDS: IPRATROPIUM/ALBUTEROL 3 ML AMPUL.NEB INH ×4 (00:15→18:55)
[2024-05-02] MEDS: INSULIN REGULAR, HUMAN 100 UNIT/ML VIAL SC ×2 (00:36→12:25)
[2024-05-02] MEDS: AMIODARONE 200 MG TABLET GT (08:07)
[2024-05-02] MEDS: AMLODIPINE 10 MG TABLET GT (08:08)
[2024-05-02] MEDS: AMOX/CLAV POT 875 MG 1 EACH TABLET GT ×2 (08:09→20:51)
[2024-05-02] MEDS: VIT D3 GT (08:14)
[2024-05-02] MEDS: APIXABAN 2.5 MG TABLET GT ×2 (08:14→21:30)
[2024-05-02] MEDS: CALCIUM GT (08:14)
[2024-05-02] MEDS: SENNOSIDES 8.6 MG TABLET GT ×2 (08:15→20:53)
[2024-05-02] MEDS: MULTIVITAMIN W MINERALS 1 EACH TABLET GT (08:15)
[2024-05-02] MEDS: METOPROLOL 25 MG TABLET GT (08:15)
--- NOTE | 2024-05-02 11:17 | PC.SS ---
Room visit: Resident is laying in bed with head of the bed elevated with call light properly placed with no signs of distress. Resident has no changes in care or condition, remains on blow by with trach in place and GT for medication and nutrition. Resident son is her decision maker as she is unable to make needs known. Resident will remain in current care and will continue to have all subacute care needs met by staff.
--- NOTE | 2024-05-02 19:12 | PC.NURSE ---
Resident is awake and alert, in no apparent distress. Vital signs are stable, no temperature. 97.7-86-22. Remains on Augmentin for pneumonia, will continue to monitor.
[2024-05-02] MEDS: ATORVASTATIN 40 MG TABLET 80 MG GT (20:52)
[2024-05-03] VITALS (11 sets, daily range): BP systolic 118–144; BP diastolic 58–71; PULSE 66–90; RESP 16–20; TEMP 36.6–36.8; O2SAT 95–100
[2024-05-03] MEDS: IPRATROPIUM/ALBUTEROL 3 ML AMPUL.NEB INH ×4 (00:05→16:46)
[2024-05-03] MEDS: INSULIN REGULAR, HUMAN 100 UNIT/ML VIAL SC ×4 (00:05→17:10)
[2024-05-03] MEDS: SENNOSIDES 8.6 MG TABLET GT ×2 (08:27→21:18)
[2024-05-03] MEDS: CALCIUM GT (08:28)
[2024-05-03] MEDS: METOPROLOL 25 MG TABLET GT ×2 (08:28→21:19)
[2024-05-03] MEDS: MULTIVITAMIN W MINERALS 1 EACH TABLET GT (08:28)
[2024-05-03] MEDS: VIT D3 GT (08:28)
[2024-05-03] MEDS: APIXABAN 2.5 MG TABLET GT ×2 (08:28→21:19)
[2024-05-03] MEDS: AMOX/CLAV POT 875 MG 1 EACH TABLET GT ×2 (08:28→21:20)
[2024-05-03] MEDS: AMLODIPINE 10 MG TABLET GT (08:28)
[2024-05-03] MEDS: AMIODARONE 200 MG TABLET GT (08:29)
--- NOTE | 2024-05-03 18:18 | PC.NURSE ---
Resident continues on Augmentin for PNA via Gtube, no adverse reactions noted, afebrile, resting quietly, continue to monitor
[2024-05-03] MEDS: ATORVASTATIN 40 MG TABLET 80 MG GT (21:19)
[2024-05-04] VITALS (13 sets, daily range): BP systolic 112–144; BP diastolic 60–72; PULSE 55–78; RESP 16–20; TEMP 36–36.6; O2SAT 95–99
[2024-05-04] MEDS: IPRATROPIUM/ALBUTEROL 3 ML AMPUL.NEB INH ×4 (00:30→18:45)
[2024-05-04] MEDS: INSULIN REGULAR, HUMAN 100 UNIT/ML VIAL SC ×3 (00:47→17:05)
[2024-05-04] MEDS: AMIODARONE 200 MG TABLET GT (08:05)
[2024-05-04] MEDS: AMOX/CLAV POT 875 MG 1 EACH TABLET GT (08:06)
[2024-05-04] MEDS: AMLODIPINE 10 MG TABLET GT (08:06)
[2024-05-04] MEDS: SENNOSIDES 8.6 MG TABLET GT ×2 (08:07→20:32)
[2024-05-04] MEDS: VIT D3 GT (08:07)
[2024-05-04] MEDS: MULTIVITAMIN W MINERALS 1 EACH TABLET GT (08:07)
[2024-05-04] MEDS: CALCIUM GT (08:07)
[2024-05-04] MEDS: METOPROLOL 25 MG TABLET GT ×2 (08:07→20:32)
[2024-05-04] MEDS: APIXABAN 2.5 MG TABLET GT ×2 (08:08→20:31)
[2024-05-04 13:15] LABS: Basophils # (Auto) 0.1 Thou/mm3 (0.0-0.2); Basophils % (Auto) 0 % (0-2.5); Eosinophils # (Auto) 0.1 Thou/mm3 (0.0-0.5); Eosinophils % (Auto) 1 % (0-10); Hematocrit 28.4 % (36.0-46.0); Hemoglobin 9.5 g/dL (12.0-16.0); Immature Granulocytes % (Auto) 0 % (0-0); Immature Granulocytes Auto 0.04 Thou/mm3 (0.00-0.00); Lymphocytes % (Auto) 8 % (10-50); Mean Corpuscular HGB Conc 33.5 g/dl (31.0-37.0); Mean Corpuscular Hemoglobin 29.6 pg (25.0-35.0); Mean Corpuscular Volume 89 fL (80-100); Monocytes # (Auto) 0.5 Thou/mm3 (0.0-0.8); Monocytes % (Auto) 4 % (0-12); Neutrophils # (Auto) 10.5 Thou/mm3 (1.8-7.7); Neutrophils % (Auto) 86 % (37-80); Nucleated Red Blood Cell % 0 /100 WBC (0); Platelet Count 277 Thou/mm3 (140-440); RDW Standard Deviation 47.5 fL (36.4-46.3); Red Blood Count 3.21 Miln/mm3 (4.00-5.20); White Blood Count 12.2 Thou/mm3 (3.6-11.0)
--- NOTE | 2024-05-04 14:50 | PC.NURSE ---
Resident completed the Augmentin BID x 7 days for PNA. nO adverse reaction noted. Remains afebrile. F/U CBC with WBC of 12.2, called Dr Hernandez and made aware , no new orders made
--- NOTE | 2024-05-04 18:11 | PC.NURSE ---
Resident received last dose of antibiotic for PNA, no adverse reactions noted, afebrile, O2 sat 98%, resting quietly, continue to monitor
[2024-05-04] MEDS: ATORVASTATIN 40 MG TABLET 80 MG GT (20:31)
[2024-05-04] MEDS: MAGNESIUM HYDROXIDE 30 ML ORAL SUSP ML GT (22:48)
[2024-05-05] VITALS (11 sets, daily range): BP systolic 108–143; BP diastolic 52–66; PULSE 62–72; RESP 18–23; TEMP 36–36.5; O2SAT 95–99
[2024-05-05] MEDS: INSULIN REGULAR, HUMAN 100 UNIT/ML VIAL SC ×4 (00:22→17:42)
[2024-05-05] MEDS: IPRATROPIUM/ALBUTEROL 3 ML AMPUL.NEB INH ×4 (00:35→18:35)
--- NOTE | 2024-05-05 00:37 | PC.NURSE ---
Resident is S/P x1 antibiotics for pneumonia. No delayed adverse reactions noted. Respirations even and unlabored on 8L 30% FiO2. Left lung sounds clear to auscultation, right lungs with noted expiratory wheezes to upper base. breathing treatments administered by RT as ordered. No s/s of distress noted, no cough noted. Tracheal secretions suctioned, noted clear in color. HOB elevated to facilitate O2 exchange. All fluids administered via g-tube and tolerated well.
[2024-05-05] MEDS: AMLODIPINE 10 MG TABLET GT (08:41)
[2024-05-05] MEDS: AMIODARONE 200 MG TABLET GT (08:41)
[2024-05-05] MEDS: SENNOSIDES 8.6 MG TABLET GT ×2 (08:42→20:42)
[2024-05-05] MEDS: CALCIUM GT (08:42)
[2024-05-05] MEDS: APIXABAN 2.5 MG TABLET GT ×2 (08:42→20:41)
[2024-05-05] MEDS: VIT D3 GT (08:42)
[2024-05-05] MEDS: METOPROLOL 25 MG TABLET GT ×2 (08:42→20:41)
[2024-05-05] MEDS: MULTIVITAMIN W MINERALS 1 EACH TABLET GT (08:42)
[2024-05-05] MEDS: ACETAMINOPHEN 325 MG TABLET 650 MG GT (12:00)
[2024-05-05] MEDS: ATORVASTATIN 40 MG TABLET 80 MG GT (20:41)
--- NOTE | 2024-05-05 20:48 | PD.SAPROG ---
Progress Note - SubAcute DIAGNOSIS (1) CVA (cerebrovascular accident): Status: Chronic (2) Altered mental status: Status: Chronic (3) Deep venous thrombosis: Status: Chronic (4) Decubital ulcer: Status: Chronic (5) Tracheostomy in place: Status: Chronic (6) G tube feedings: Status: Chronic SUBJECTIVE Fever:: none GI:: unchanged Shortness of Breath:: none Pain:: none OBJECTIVE Most recent vital signs: Last Vital Signs Temp 97.2 F 05/05/24 17:11 Pulse 69 05/05/24 20:41 Resp 20 05/05/24 17:11 BP 136/66 H 05/05/24 20:41 Pulse Ox 95 05/05/24 17:11 O2 Del Method Blow-by 05/05/24 06:00 O2 Flow Rate 8 05/05/24 12:40 FiO2 30 05/05/24 12:40 Neurological:: eye tracking (sometimes) Answers questions:: no Respiratory:: lungs clear and shallow breathing Cardiovascular: RRR Abdomen: soft and nontender Tracheostomy:: to blow by Feeding per:: G tube ASSESSMENT & PLAN Assessment: Pt bed bound with all above etilologies, chronic, and fully dependent for all care . Current medications reviewed and continued as ongoing from the previous facility and reassessed. Prognosis for meaningful recovery towards independent status is very poor. Received back from acute care on antibiotics. Now afebrile. Will discuss Hospice care with family. No decisions yet. Plan: Current treatment reviewed and continued.
[2024-05-06] VITALS (11 sets, daily range): BP systolic 121–131; BP diastolic 59–65; PULSE 62–77; RESP 16–20; TEMP 36.2–36.6; O2SAT 96–99
[2024-05-06] MEDS: INSULIN REGULAR, HUMAN 100 UNIT/ML VIAL SC ×4 (00:10→17:31)
[2024-05-06] MEDS: IPRATROPIUM/ALBUTEROL 3 ML AMPUL.NEB INH ×4 (00:50→18:19)
[2024-05-06] MEDS: AMIODARONE 200 MG TABLET GT (08:09)
[2024-05-06] MEDS: AMLODIPINE 10 MG TABLET GT (08:10)
[2024-05-06] MEDS: APIXABAN 2.5 MG TABLET GT ×2 (08:11→20:33)
[2024-05-06] MEDS: VIT D3 GT (08:11)
[2024-05-06] MEDS: CALCIUM GT (08:11)
[2024-05-06] MEDS: METOPROLOL 25 MG TABLET GT ×2 (08:12→20:34)
[2024-05-06] MEDS: MULTIVITAMIN W MINERALS 1 EACH TABLET GT (08:13)
[2024-05-06] MEDS: SENNOSIDES 8.6 MG TABLET GT ×2 (08:13→20:35)
[2024-05-06] MEDS: ATORVASTATIN 40 MG TABLET 80 MG GT (20:34)
[2024-05-07] VITALS (12 sets, daily range): BP systolic 110–141; BP diastolic 54–70; PULSE 61–93; RESP 18–22; TEMP 35.9–36.7; O2SAT 98–100
[2024-05-07] MEDS: IPRATROPIUM/ALBUTEROL 3 ML AMPUL.NEB INH ×4 (00:20→18:15)
[2024-05-07] MEDS: INSULIN REGULAR, HUMAN 100 UNIT/ML VIAL SC ×2 (05:50→17:31)
[2024-05-07] MEDS: METOPROLOL 25 MG TABLET GT ×2 (08:33→20:52)
[2024-05-07] MEDS: APIXABAN 2.5 MG TABLET GT ×2 (08:33→20:51)
[2024-05-07] MEDS: SENNOSIDES 8.6 MG TABLET GT ×2 (08:33→20:52)
[2024-05-07] MEDS: CALCIUM GT (08:33)
[2024-05-07] MEDS: AMLODIPINE 10 MG TABLET GT (08:33)
[2024-05-07] MEDS: VIT D3 GT (08:33)
[2024-05-07] MEDS: MULTIVITAMIN W MINERALS 1 EACH TABLET GT (08:33)
[2024-05-07] MEDS: AMIODARONE 200 MG TABLET GT (08:34)
[2024-05-07] MEDS: ATORVASTATIN 40 MG TABLET 80 MG GT (20:51)
[2024-05-07] MEDS: MAGNESIUM HYDROXIDE 30 ML ORAL SUSP ML GT (20:53)
[2024-05-08] VITALS (10 sets, daily range): BP systolic 107–133; BP diastolic 56–66; PULSE 62–82; RESP 18–19; TEMP 36.2–37.2; O2SAT 94–100
[2024-05-08] MEDS: IPRATROPIUM/ALBUTEROL 3 ML AMPUL.NEB INH ×4 (00:05→18:40)
[2024-05-08] MEDS: INSULIN REGULAR, HUMAN 100 UNIT/ML VIAL SC ×3 (00:26→17:08)
[2024-05-08] MEDS: AMIODARONE 200 MG TABLET GT (08:51)
[2024-05-08] MEDS: METOPROLOL 25 MG TABLET GT (08:52)
[2024-05-08] MEDS: MULTIVITAMIN W MINERALS 1 EACH TABLET GT (08:52)
[2024-05-08] MEDS: CALCIUM GT (08:52)
[2024-05-08] MEDS: VIT D3 GT (08:52)
[2024-05-08] MEDS: AMLODIPINE 10 MG TABLET GT (08:52)
[2024-05-08] MEDS: APIXABAN 2.5 MG TABLET GT ×2 (08:52→20:20)
[2024-05-08] MEDS: SENNOSIDES 8.6 MG TABLET GT ×2 (08:53→20:22)
[2024-05-08] MEDS: ATORVASTATIN 40 MG TABLET 80 MG GT (20:21)
[2024-05-09] VITALS (11 sets, daily range): BP systolic 118–138; BP diastolic 59–66; PULSE 64–97; RESP 16–24; TEMP 36.1–36.5; O2SAT 96–99
[2024-05-09] MEDS: INSULIN REGULAR, HUMAN 100 UNIT/ML VIAL SC ×4 (00:19→17:12)
[2024-05-09] MEDS: IPRATROPIUM/ALBUTEROL 3 ML AMPUL.NEB INH ×3 (00:25→13:45)
[2024-05-09] MEDS: SENNOSIDES 8.6 MG TABLET GT ×2 (08:51→20:02)
[2024-05-09] MEDS: MULTIVITAMIN W MINERALS 1 EACH TABLET GT (08:52)
[2024-05-09] MEDS: CALCIUM GT (08:52)
[2024-05-09] MEDS: METOPROLOL 25 MG TABLET GT ×2 (08:52→20:01)
[2024-05-09] MEDS: AMLODIPINE 10 MG TABLET GT (08:52)
[2024-05-09] MEDS: APIXABAN 2.5 MG TABLET GT ×2 (08:52→20:01)
[2024-05-09] MEDS: VIT D3 GT (08:52)
[2024-05-09] MEDS: AMIODARONE 200 MG TABLET GT (08:53)
--- NOTE | 2024-05-09 12:45 | PD.SAPROG ---
Progress Note - SubAcute DIAGNOSIS (1) CVA (cerebrovascular accident): Status: Chronic (2) Altered mental status: Status: Chronic (3) Deep venous thrombosis: Status: Chronic (4) Decubital ulcer: Status: Chronic (5) Tracheostomy in place: Status: Chronic (6) G tube feedings: Status: Chronic SUBJECTIVE Fever:: none GI:: unchanged Shortness of Breath:: none Pain:: none OBJECTIVE Most recent vital signs: Last Vital Signs Temp 98.2 F 05/12/24 06:00 Pulse 67 05/12/24 06:00 Resp 17 05/12/24 06:00 BP 126/61 05/12/24 06:00 Pulse Ox 98 05/12/24 06:00 O2 Del Method Blow-by 05/12/24 06:00 O2 Flow Rate 6 05/12/24 00:19 FiO2 28 05/12/24 00:19 Neurological:: eye tracking (sometimes) Answers questions:: no Respiratory:: lungs clear and shallow breathing Cardiovascular: RRR Abdomen: soft and nontender Tracheostomy:: to blow by Feeding per:: G tube ASSESSMENT & PLAN Assessment: Pt bed bound with all above etilologies, chronic, and fully dependent for all care . Current medications reviewed and continued as ongoing from the previous facility and reassessed. Prognosis for meaningful recovery towards independent status is very poor. Received back from acute care on antibiotics. Now afebrile. Will discuss Hospice care with family. No decisions yet. Plan: Current treatment reviewed and continued.
[2024-05-09] MEDS: ATORVASTATIN 40 MG TABLET 80 MG GT (20:01)
[2024-05-10] VITALS (11 sets, daily range): BP systolic 122–145; BP diastolic 51–66; PULSE 64–82; RESP 16–22; TEMP 36.6–36.8; O2SAT 96–99
[2024-05-10] MEDS: INSULIN REGULAR, HUMAN 100 UNIT/ML VIAL SC ×3 (00:10→12:04)
[2024-05-10] MEDS: IPRATROPIUM/ALBUTEROL 3 ML AMPUL.NEB INH ×4 (00:55→18:12)
[2024-05-10] MEDS: AMIODARONE 200 MG TABLET GT (08:39)
[2024-05-10] MEDS: SENNOSIDES 8.6 MG TABLET GT ×2 (08:40→20:28)
[2024-05-10] MEDS: CALCIUM GT (08:40)
[2024-05-10] MEDS: APIXABAN 2.5 MG TABLET GT ×2 (08:40→20:27)
[2024-05-10] MEDS: METOPROLOL 25 MG TABLET GT ×2 (08:40→20:27)
[2024-05-10] MEDS: VIT D3 GT (08:40)
[2024-05-10] MEDS: AMLODIPINE 10 MG TABLET GT (08:40)
[2024-05-10] MEDS: MULTIVITAMIN W MINERALS 1 EACH TABLET GT (08:40)
[2024-05-10] MEDS: ATORVASTATIN 40 MG TABLET 80 MG GT (20:27)
[2024-05-10] MEDS: ACETAMINOPHEN 325 MG TABLET 650 MG GT (20:28)
[2024-05-11] VITALS (12 sets, daily range): BP systolic 112–146; BP diastolic 58–69; PULSE 59–71; RESP 18–22; TEMP 35.9–36.7; O2SAT 97–100
[2024-05-11] MEDS: INSULIN REGULAR, HUMAN 100 UNIT/ML VIAL SC ×3 (00:12→17:02)
[2024-05-11] MEDS: IPRATROPIUM/ALBUTEROL 3 ML AMPUL.NEB INH ×4 (00:21→19:50)
[2024-05-11] MEDS: APIXABAN 2.5 MG TABLET GT ×2 (08:39→20:37)
[2024-05-11] MEDS: AMIODARONE 200 MG TABLET GT (08:39)
[2024-05-11] MEDS: AMLODIPINE 10 MG TABLET GT (08:39)
[2024-05-11] MEDS: METOPROLOL 25 MG TABLET GT ×2 (08:40→20:38)
[2024-05-11] MEDS: CALCIUM GT (08:40)
[2024-05-11] MEDS: VIT D3 GT (08:40)
[2024-05-11] MEDS: SENNOSIDES 8.6 MG TABLET GT ×2 (08:41→20:38)
[2024-05-11] MEDS: MULTIVITAMIN W MINERALS 1 EACH TABLET GT (08:41)
--- NOTE | 2024-05-11 12:16 | PC.SS ---
Room visit: Resident is laying in bed with head of the bed elevated with call light properly placed with no signs of distress. Resident has no changes in care or condition, she remains on blow by with trach in place and GT for medication and nutrition. Resident is unable to make needs known, she is total care. Resident will remain in current care and will continue to have all subacute care needs met by staff. This SSD will continue to monitor for changes in mood and behavior.
[2024-05-11] MEDS: ATORVASTATIN 40 MG TABLET 80 MG GT (20:37)
[2024-05-12] VITALS (11 sets, daily range): BP systolic 113–140; BP diastolic 51–72; PULSE 54–86; RESP 16–20; TEMP 36–36.8; O2SAT 93–99
[2024-05-12] MEDS: INSULIN REGULAR, HUMAN 100 UNIT/ML VIAL SC ×3 (00:12→17:28)
[2024-05-12] MEDS: IPRATROPIUM/ALBUTEROL 3 ML AMPUL.NEB INH ×4 (00:19→19:51)
[2024-05-12] MEDS: MAGNESIUM HYDROXIDE 30 ML ORAL SUSP ML GT (05:51)
[2024-05-12] MEDS: AMLODIPINE 10 MG TABLET GT (08:40)
[2024-05-12] MEDS: AMIODARONE 200 MG TABLET GT (08:40)
[2024-05-12] MEDS: APIXABAN 2.5 MG TABLET GT ×2 (08:41→20:26)
[2024-05-12] MEDS: VIT D3 GT (08:41)
[2024-05-12] MEDS: METOPROLOL 25 MG TABLET GT ×2 (08:41→20:26)
[2024-05-12] MEDS: CALCIUM GT (08:41)
[2024-05-12] MEDS: SENNOSIDES 8.6 MG TABLET GT ×2 (08:42→20:27)
[2024-05-12] MEDS: MULTIVITAMIN W MINERALS 1 EACH TABLET GT (08:42)
[2024-05-12] MEDS: ACETAMINOPHEN 325 MG TABLET 650 MG GT (08:43)
[2024-05-12] MEDS: ATORVASTATIN 40 MG TABLET 80 MG GT (20:26)
[2024-05-13] VITALS (13 sets, daily range): BP systolic 103–133; BP diastolic 58–65; PULSE 60–78; RESP 18–19; TEMP 36.1–36.6; O2SAT 94–100
[2024-05-13] MEDS: INSULIN REGULAR, HUMAN 100 UNIT/ML VIAL SC ×2 (00:21→12:15)
[2024-05-13] MEDS: IPRATROPIUM/ALBUTEROL 3 ML AMPUL.NEB INH ×4 (01:54→19:09)
[2024-05-13] MEDS: AMIODARONE 200 MG TABLET GT (08:20)
[2024-05-13] MEDS: AMLODIPINE 10 MG TABLET GT (08:21)
[2024-05-13] MEDS: APIXABAN 2.5 MG TABLET GT ×2 (08:22→20:38)
[2024-05-13] MEDS: CALCIUM GT (08:22)
[2024-05-13] MEDS: VIT D3 GT (08:22)
[2024-05-13] MEDS: MULTIVITAMIN W MINERALS 1 EACH TABLET GT (08:23)
[2024-05-13] MEDS: METOPROLOL 25 MG TABLET GT (08:23)
[2024-05-13] MEDS: SENNOSIDES 8.6 MG TABLET GT ×2 (08:24→20:39)
--- NOTE | 2024-05-13 10:50 | PD.SAPROG ---
Progress Note - SubAcute DIAGNOSIS (1) CVA (cerebrovascular accident): Status: Chronic (2) Altered mental status: Status: Chronic (3) Deep venous thrombosis: Status: Chronic (4) Decubital ulcer: Status: Chronic (5) Tracheostomy in place: Status: Chronic (6) G tube feedings: Status: Chronic SUBJECTIVE Fever:: none GI:: unchanged Shortness of Breath:: none Pain:: none OBJECTIVE Most recent vital signs: Last Vital Signs Temp 96.9 F 05/13/24 05:52 Pulse 78 05/13/24 08:23 Resp 18 05/13/24 06:47 BP 133/61 H 05/13/24 08:23 Pulse Ox 99 05/13/24 06:47 O2 Del Method Blow-by 05/13/24 05:52 O2 Flow Rate 6 05/13/24 06:47 FiO2 28 05/13/24 06:47 Neurological:: eye tracking (sometimes) Answers questions:: no Respiratory:: lungs clear and shallow breathing Cardiovascular: RRR Abdomen: soft and nontender Tracheostomy:: to blow by Feeding per:: G tube ASSESSMENT & PLAN Assessment: Pt bed bound with all above etilologies, chronic, and fully dependent for all care . Current medications reviewed and continued as ongoing from the previous facility and reassessed. Prognosis for meaningful recovery towards independent status is very poor. Received back from acute care on antibiotics. Now afebrile. Will discuss Hospice care with family. No decisions yet. Plan: Current treatment reviewed and continued.
[2024-05-13] MEDS: ATORVASTATIN 40 MG TABLET 80 MG GT (20:38)
[2024-05-14] VITALS (12 sets, daily range): BP systolic 117–140; BP diastolic 56–72; PULSE 61–85; RESP 17–20; TEMP 36–36.5; O2SAT 96–99
[2024-05-14] MEDS: INSULIN REGULAR, HUMAN 100 UNIT/ML VIAL SC ×3 (00:20→23:14)
[2024-05-14] MEDS: IPRATROPIUM/ALBUTEROL 3 ML AMPUL.NEB INH ×4 (00:30→20:02)
[2024-05-14] MEDS: AMIODARONE 200 MG TABLET GT (08:30)
[2024-05-14] MEDS: APIXABAN 2.5 MG TABLET GT ×2 (08:31→21:02)
[2024-05-14] MEDS: METOPROLOL 25 MG TABLET GT ×2 (08:31→21:03)
[2024-05-14] MEDS: AMLODIPINE 10 MG TABLET GT (08:31)
[2024-05-14] MEDS: MULTIVITAMIN W MINERALS 1 EACH TABLET GT (08:32)
[2024-05-14] MEDS: VIT D3 GT (08:32)
[2024-05-14] MEDS: CALCIUM GT (08:32)
[2024-05-14] MEDS: SENNOSIDES 8.6 MG TABLET GT ×2 (08:32→21:03)
[2024-05-14 12:06] LABS: Basophils % (Auto) 0 % (0-2.5); Eosinophils # (Auto) 0.1 Thou/mm3 (0.0-0.5); Eosinophils % (Auto) 1 % (0-10); Hematocrit 27.9 % (36.0-46.0); Hemoglobin 9.2 g/dL (12.0-16.0); Immature Granulocytes % (Auto) 0 % (0-0); Immature Granulocytes Auto 0.03 Thou/mm3 (0.00-0.00); Lymphocytes # (Auto) 0.8 Thou/mm3 (1.0-4.8); Lymphocytes % (Auto) 8 % (10-50); Mean Corpuscular Hemoglobin 29.2 pg (25.0-35.0); Mean Corpuscular Volume 89 fL (80-100); Monocytes # (Auto) 0.8 Thou/mm3 (0.0-0.8); Monocytes % (Auto) 8 % (0-12); Neutrophils # (Auto) 8.3 Thou/mm3 (1.8-7.7); Neutrophils % (Auto) 83 % (37-80); Nucleated Red Blood Cell % 0 /100 WBC (0); Platelet Count 356 Thou/mm3 (140-440); RDW Standard Deviation 47.8 fL (36.4-46.3); Red Blood Count 3.15 Miln/mm3 (4.00-5.20)
[2024-05-14] MEDS: ATORVASTATIN 40 MG TABLET 80 MG GT (21:02)
[2024-05-15] VITALS (11 sets, daily range): BP systolic 121–147; BP diastolic 57–69; PULSE 64–88; RESP 16–19; TEMP 36.3–36.6; O2SAT 97–99
[2024-05-15] MEDS: IPRATROPIUM/ALBUTEROL 3 ML AMPUL.NEB INH ×4 (01:13→20:40)
[2024-05-15] MEDS: AMIODARONE 200 MG TABLET GT (08:56)
[2024-05-15] MEDS: CALCIUM GT (08:59)
[2024-05-15] MEDS: VIT D3 GT (08:59)
[2024-05-15] MEDS: APIXABAN 2.5 MG TABLET GT ×2 (08:59→21:15)
[2024-05-15] MEDS: METOPROLOL 25 MG TABLET GT ×2 (08:59→21:16)
[2024-05-15] MEDS: AMLODIPINE 10 MG TABLET GT (08:59)
[2024-05-15] MEDS: SENNOSIDES 8.6 MG TABLET GT ×2 (09:00→21:16)
[2024-05-15] MEDS: MULTIVITAMIN W MINERALS 1 EACH TABLET GT (09:00)
[2024-05-15] MEDS: INSULIN REGULAR, HUMAN 100 UNIT/ML VIAL SC ×2 (11:34→17:02)
[2024-05-15] MEDS: ATORVASTATIN 40 MG TABLET 80 MG GT (21:16)
[2024-05-16] VITALS (11 sets, daily range): BP systolic 128–153; BP diastolic 59–70; PULSE 66–85; RESP 18–20; TEMP 36.7–36.9; O2SAT 95–99
[2024-05-16] MEDS: INSULIN REGULAR, HUMAN 100 UNIT/ML VIAL SC ×4 (00:15→17:07)
[2024-05-16] MEDS: IPRATROPIUM/ALBUTEROL 3 ML AMPUL.NEB INH ×4 (00:46→19:55)
[2024-05-16] MEDS: AMIODARONE 200 MG TABLET GT (09:04)
[2024-05-16] MEDS: AMLODIPINE 10 MG TABLET GT (09:05)
[2024-05-16] MEDS: VIT D3 GT (09:05)
[2024-05-16] MEDS: METOPROLOL 25 MG TABLET GT ×2 (09:05→20:26)
[2024-05-16] MEDS: APIXABAN 2.5 MG TABLET GT ×2 (09:05→20:26)
[2024-05-16] MEDS: CALCIUM GT (09:05)
[2024-05-16] MEDS: SENNOSIDES 8.6 MG TABLET GT ×2 (09:06→20:27)
[2024-05-16] MEDS: MULTIVITAMIN W MINERALS 1 EACH TABLET GT (09:06)
[2024-05-16] MEDS: ATORVASTATIN 40 MG TABLET 80 MG GT (20:26)
[2024-05-17] VITALS (12 sets, daily range): BP systolic 115–142; BP diastolic 59–69; PULSE 62–90; RESP 16–20; TEMP 36.6–37.2; O2SAT 92–98; BMI 19.9
[2024-05-17] MEDS: INSULIN REGULAR, HUMAN 100 UNIT/ML VIAL SC (00:02)
[2024-05-17] MEDS: IPRATROPIUM/ALBUTEROL 3 ML AMPUL.NEB INH ×4 (00:16→19:05)
[2024-05-17] MEDS: AMLODIPINE 10 MG TABLET GT (08:56)
[2024-05-17] MEDS: AMIODARONE 200 MG TABLET GT (08:56)
[2024-05-17] MEDS: SENNOSIDES 8.6 MG TABLET GT ×2 (08:57→21:58)
[2024-05-17] MEDS: VIT D3 GT (08:57)
[2024-05-17] MEDS: CALCIUM GT (08:57)
[2024-05-17] MEDS: METOPROLOL 25 MG TABLET GT ×2 (08:57→21:58)
[2024-05-17] MEDS: APIXABAN 2.5 MG TABLET GT ×2 (08:57→21:58)
[2024-05-17] MEDS: MULTIVITAMIN W MINERALS 1 EACH TABLET GT (08:57)
[2024-05-17] MEDS: ACETAMINOPHEN 325 MG TABLET 650 MG GT (08:58)
--- NOTE | 2024-05-17 15:56 | PD.SAPROG ---
Progress Note - SubAcute DIAGNOSIS (1) CVA (cerebrovascular accident): Status: Chronic (2) Altered mental status: Status: Chronic (3) Deep venous thrombosis: Status: Chronic (4) Decubital ulcer: Status: Chronic (5) Tracheostomy in place: Status: Chronic (6) G tube feedings: Status: Chronic SUBJECTIVE Fever:: none GI:: unchanged Shortness of Breath:: none Pain:: none OBJECTIVE Most recent vital signs: Last Vital Signs Temp 97.9 F 05/17/24 12:00 Pulse 70 05/17/24 13:20 Resp 16 05/17/24 13:20 BP 115/59 L 05/17/24 12:00 Pulse Ox 98 05/17/24 13:20 O2 Del Method Blow-by 05/17/24 05:21 O2 Flow Rate 6 05/17/24 13:20 FiO2 28 05/17/24 13:20 Neurological:: eye tracking (sometimes) Answers questions:: no Respiratory:: lungs clear and shallow breathing Cardiovascular: RRR Abdomen: soft and nontender Tracheostomy:: to blow by Feeding per:: G tube ASSESSMENT & PLAN Assessment: Pt bed bound with all above etilologies, chronic, and fully dependent for all care . Current medications reviewed and continued as ongoing from the previous facility and reassessed. Prognosis for meaningful recovery towards independent status is very poor. Received back from acute care on antibiotics. Now afebrile. Will discuss Hospice care with family. No decisions yet. VSS Plan: Current treatment reviewed and continued.
[2024-05-17] MEDS: ATORVASTATIN 40 MG TABLET 80 MG GT (21:58)
[2024-05-17] MEDS: MAGNESIUM HYDROXIDE 30 ML ORAL SUSP ML GT (22:05)
[2024-05-18] VITALS (11 sets, daily range): BP systolic 100–137; BP diastolic 57–64; PULSE 67–92; RESP 16–20; TEMP 38.1–38.6; O2SAT 94–99
[2024-05-18] MEDS: INSULIN REGULAR, HUMAN 100 UNIT/ML VIAL SC ×2 (00:27→11:29)
[2024-05-18] MEDS: IPRATROPIUM/ALBUTEROL 3 ML AMPUL.NEB INH ×4 (01:58→18:25)
--- NOTE | 2024-05-18 04:05 | PC.NURSE ---
RESIDENT FEBRILE WITH RECTAL TEMP OF 101.5. COOLING MEASURES. FEVER PROTOCOL INITIATED. RESIDENT AWAKE, NO S/S DISTRESS/DISCOMFORT.
[2024-05-18] MEDS: ACETAMINOPHEN 325 MG TABLET 650 MG GT ×2 (04:25→11:05)
[2024-05-18 05:09] LABS: Collection Type, Urine Catheter
[2024-05-18 05:15] LABS: Basophils % (Auto) 0 % (0-2.5); Eosinophils % (Auto) 0 % (0-10); Hematocrit 26.9 % (36.0-46.0); Hemoglobin 9.2 g/dL (12.0-16.0); Immature Granulocytes % (Auto) 1 % (0-0); Immature Granulocytes Auto 0.09 Thou/mm3 (0.00-0.00); Lymphocytes # (Auto) 0.6 Thou/mm3 (1.0-4.8); Lymphocytes % (Auto) 4 % (10-50); Mean Corpuscular HGB Conc 34.2 g/dl (31.0-37.0); Mean Corpuscular Hemoglobin 29.3 pg (25.0-35.0); Mean Corpuscular Volume 86 fL (80-100); Monocytes # (Auto) 1.4 Thou/mm3 (0.0-0.8); Monocytes % (Auto) 8 % (0-12); Neutrophils % (Auto) 88 % (37-80); Nucleated Red Blood Cell % 0 /100 WBC (0); Platelet Count 397 Thou/mm3 (140-440); Red Blood Count 3.14 Miln/mm3 (4.00-5.20); White Blood Count 18.2 Thou/mm3 (3.6-11.0)
[2024-05-18 05:19] LABS: RBC,Urine 23 /hpf (0-3); Squamous Epithelial Cell,Urine 1 /hpf (0-5); WBC,Urine 5 /hpf (0-5)
[2024-05-18 05:21] LABS: Bilirubin,Urine Negative (Negative); Blood,Urine 2+ (Negative); COVID-19 Antigen (In-House) Negative (Negative); Clarity,Urine Clear (Clear/Hazy); Color,Urine Lt Yellow (Lt Yel-Yel); Glucose, Urine Negative (Negative); Ketones,Urine Negative (Negative); Leukocyte Esterase,Urine Negative (Negative); Nitrite,Urine Negative (Negative); PH,Urine 8.5 (5.0-7.0); Protein,Urine 3+ (Neg - Trace); Specific Gravity,Urine 1.015 (1.001-1.035); Urobilinogen,Urine 0.2 mg/dL (0.0-1.0)
[2024-05-18 05:47] LABS: Influenza A Ag Negative; Influenza B Ag Negative
[2024-05-18 06:13] LABS: Procalcitonin 0.33 ng/ml (0.0-0.49)
--- NOTE | 2024-05-18 06:30 | PC.NURSE ---
REVIEWED LABS WITH DR. POND. NEW ORDERS RECEIVED FOR ROCEPHIN IV DAILY 1 GM UNTIL CULTURES ARE AVAILABLE.
--- NOTE | 2024-05-18 07:04 | PC.NURSE ---
Around 0405 resident temp 101.5 rectally, notified RN and applied cooling measures and gave Tylenol around 0425 for her temperature. Temp protocol was done and DR was called by the RN and the RN received orders and orders where carried out.Also around 0525 temp was recheck and temp was 100.5 rectally, RN aware and cooling measures still applied. An hour later temp was rechecked and temp went down to 98.7, made in coming OCCUPATIONAL PSYCHOLOGIST know about temp of 98.7. No s\s of discomfort or respiratory distress. Call light within reach.
[2024-05-18] MEDS: cefTRIAXone 1,000 MG in SODIUM CHLORIDE 0.9% (Popper) 50 ML 100 MG IV (08:03)
[2024-05-18] MEDS: SENNOSIDES 8.6 MG TABLET GT ×2 (08:15→21:13)
[2024-05-18] MEDS: AMIODARONE 200 MG TABLET GT (08:16)
[2024-05-18] MEDS: VIT D3 GT (08:16)
[2024-05-18] MEDS: APIXABAN 2.5 MG TABLET GT ×2 (08:16→21:11)
[2024-05-18] MEDS: AMLODIPINE 10 MG TABLET GT (08:16)
[2024-05-18] MEDS: CALCIUM GT (08:16)
[2024-05-18] MEDS: MULTIVITAMIN W MINERALS 1 EACH TABLET GT (08:16)
[2024-05-18] MEDS: METOPROLOL 25 MG TABLET GT (08:16)
--- NOTE | 2024-05-18 10:11 | PC.NURSE ---
Tried to call resident's son Jemal to update him about the resident and the new order for antibiotic but unable to get hold of him . left message on his voicemail to call us back.
--- NOTE | 2024-05-18 12:42 | PC.SS ---
Room visit: Resident is laying in bed with head of the bed elevated with call light properly placed with no signs of distress. Resident is alert and non verbal unable to make needs known, her son is her decision maker. Resident has no changes in care or condition, she will remain in current care and will continue to have all subacute care needs met by staff as she remains on blow by with trach in place and GT for medication and nutrition.
--- NOTE | 2024-05-18 13:18 | XR_ITS ---
Examination: AP chest single view Technique one AP portable upright chest single view Exam date and time: May 18, 2024 1342 hours Comparison April 25, 2024 INDICATIONS: Fever shortness of breath today. FINDINGS: Mild prominence left ventricle Large left pleural effusion Accentuation bronchovascular markings. Tracheostomy tube tip 7.3 cm above segundo IMPRESSION: Large left pleural effusion Bronchitis pattern
--- NOTE | 2024-05-18 13:20 | PC.NURSE ---
Resident with history of pleural fluid . Resident was started on Rocephin 1 gm today due to fever, no adverse reaction noted. No s/s of respiratory distress noted on BB at 28% at 6L , O2 saturation 100%. No s/s of pain or discomfort. Order received from Dr Hernandez to obtain Chest xray.
--- NOTE | 2024-05-18 15:17 | PC.NURSE ---
Resident's chest x-ray result with large left pleural effusion with rectal temp of 101.1, O2 saturation 94% at 6L 28% BB, RR 22. Called Dr Hernandez and made aware and verbally reported resident's chest x-ray result with order received to transfer resident to ER for further evaluation . Called ER and gave a report. Called resident's son Jemal and updated him about the resident and the order to transfer resident to ER. Resident was sent out to ER via bed with OPEN CUT EXAMINER and ELECTRONICS PARTS SALES REPRESENTATIVE at 15:05.
--- NOTE | 2024-05-18 18:20 | PC.NURSE ---
Received a call from the ER doctor notifying this newspaper writer that they will send back the resident . As per ER doctor, resident looks stable at this time and not in distress and doesn't need an emergency thoracentesis at this time. ER doctor had added that thoracentecis can wait until Tuesday when Dr hou comes. And resident will just have to continue the antibiotic. Asked ER doctor to discuss it with Dr Hernandez. Called Dr hernandez and asked him if ER doctor had contacted him about the resident and he said he has a missed call and a message from the ER doctor. Notified Dr hernandez what ER had mentioned and he said to call ER and tell them that it's okay for them to send back the resident to the unit. Order received to repeat chest x-ray on tuesday and he'll decide for the thoracentesis base on the chest x-ray result.
--- NOTE | 2024-05-18 20:30 | PC.NURSE ---
Resident's family, Kristyi, called to inform Resident is back in SubAcute. No questions at this time.
--- NOTE | 2024-05-18 21:00 | PC.NURSE ---
Dr. Hernandez updated that resident if back in the unit. Resident on 30% fIo2 with o2 sat 93-94% , no distress noted, sleeping and easily awakens. May increase fio2 as needed per Dr. Hernandez.
[2024-05-18] MEDS: ATORVASTATIN 40 MG TABLET 80 MG GT (21:12)
--- NOTE | 2024-05-18 22:17 | PC.NURSE ---
patient return from ER around 193,resting in bed,blow by attach by RT,feeding connected to gtube,b/p 100/57,pulse 87,hr 20/02 sat at 95%,charge nurse aware.
--- NOTE | 2024-05-18 22:29 | PC.NURSE ---
Resident sleeping, no discomfort noted, on continuos pulse oximetry. Oxygen saturation at this time 96% on 30% fiO2. Resident sleeping. Continue to monitor.
[2024-05-19] VITALS: BP 122/59; PULSE 68; RESP 20; TEMP 36.8
[2024-05-19] MEDS: INSULIN REGULAR, HUMAN 100 UNIT/ML VIAL SC (00:28)
[2024-05-19 00:58] VITALS: PULSE 70; RESP 18; O2SAT 99
[2024-05-19] MEDS: IPRATROPIUM/ALBUTEROL 3 ML AMPUL.NEB INH ×2 (00:58→07:08)
[2024-05-19 06:00] VITALS: BP 122/67; PULSE 81; RESP 20; TEMP 36.4
[2024-05-19 07:08] VITALS: PULSE 114; PULSE 122; RESP 28; RESP 30; O2SAT 92; O2SAT 93
--- NOTE | 2024-05-19 07:40 | PC.NURSE ---
Resident having labored breathing, saturation rate was 85-90% in 10L and 50% Fi02, HR - 10-120, MD. made aware and order to transfer to E.R, order noted and carried out, family made aware.
--- NOTE | 2024-05-31 16:04 | PC.IP ---
At 1500 today TST placed RUE with good wheal appreciated. Notified [facility], of placement. 0.1 ml Aplisol Lot [id number] Exp 06/26/25. Resident did not respond in any way. Is positioned on Lt. side, seemingly comfortable and clean.
--- NOTE | 2024-06-18 10:40 | ESDS_ITS ---
RE: DAJUAN PAZ : 1940 DATE OF ADMISSION: 04/13/2024 DATE OF DISCHARGE: 05/26/2024 ADMITTING DIAGNOSES: Multiple cerebrovascular accident with occlusive stroke in 2023 with severe altered mental status; seizure disorder; essential hypertension; diabetes mellitus; with a tracheostomy and a feeding percutaneous endoscopic gastrostomy tube; and history of deep vein thrombosis with atrial fibrillation, on Eliquis. DISCHARGE DIAGNOSES: Multiple cerebrovascular accident with occlusive stroke in 2023 with severe altered mental status; seizure disorder; essential hypertension; diabetes mellitus; with a tracheostomy and a feeding percutaneous endoscopic gastrostomy tube; history of deep vein thrombosis with atrial fibrillation, on Eliquis; and fever/oxygen desaturation/respiratory discomfort with possible sepsis. HOSPITAL COURSE AND RELEVANT DATA: The patient is an 83-year-old female admitted to the [facility] for long-term care on 04/13/2024 with the above- stated diagnoses. The patient's general condition included multiple organ compromise with poor prognostic outlook for any meaningful independent recovery. Family kept apprised. The patient was a DNR with current treatment as needed. The patient had one previous transfer to the emergency room for fever. Subsequently stabilized, but no general improvement in her mental status. On 05/18/2024, the patient again was noted to be tachypneic with moderate fever with oxygen desaturation and respiratory discomfort, at which point, the patient was transferred to the emergency room as per protocol. In the ER, she was found to have recurrence of a large pleural effusion and admitted to acute care for further workup and management. (Pt's bed hold in [facility] ended on 05-26-24) DT: 16:59:27 TT: 17:42:00 Ref: [id number] - TID: [id number] [facility]
== END 2024-05-26 00:01 | disposition admitted as inpatient to this hospital (09) | DRG 189 ==
PROVIDERS: Admitting Provider Specialist; Visit Provider Specialist
DX: J96.10 Chronic respiratory failure, unspecified whether with hypoxia or hypercapnia (principal); L89.154 Pressure ulcer of sacral region, stage 4; A41.9 Sepsis, unspecified organism; I48.20 Chronic atrial fibrillation, unspecified; E87.0 Hyperosmolality and hypernatremia; J90 Pleural effusion, not elsewhere classified; E11.9 Type 2 diabetes mellitus without complications; G40.909 Epilepsy, unspecified, not intractable, without status epilepticus; I10 Essential (primary) hypertension; E78.5 Hyperlipidemia, unspecified; I69.398 Other sequelae of cerebral infarction; R41.82 Altered mental status, unspecified; R53.1 Weakness; Z66 Do not resuscitate; Z93.1 Gastrostomy status; Z93.0 Tracheostomy status; Z86.718 Personal history of other venous thrombosis and embolism; Z74.01 Bed confinement status; Z79.01 Long term (current) use of anticoagulants
CPT/HCPCS: 36415; 36600; 71045; 80053; 81001; 82803; 84145; 85025; 87040; 87077; 87086; 87106; 87186; 87205; 87502; 87811; 92523; 93005; 94640; 94762; J0696; J7050

== ENCOUNTER 2024-04-21 07:21 | Inpatient (IN) | payer MEDICARE, OTHER, SELFPAY ==
[2024-04-21] VITALS (11 sets, daily range): BP systolic 116–144; BP diastolic 54–68; PULSE 71–87; RESP 16–34; TEMP 36.3–37.6; O2SAT 92–99
--- NOTE | 2024-04-21 07:30 | PC.NURSE ---
Pt. brought here from [facility] for a fever and gram positive cocci blood culture, pt. has been on Rocephin since 04/20/24 in sub acute, per staff today Dr. Hernandez wanted to rule out sepsis so pt. was brought to ER room 3. Pt. has 3 Allevyn on pt., 1 to coccyx, pt. has a wound to coccyx that is hard black/brown in color, not draining any fluid, has some open skin that is red and has minimal bleeding, new Allevyn place on coccyx, pt. has 1 Allevyn to each hip for prevention. Pt. has a G tube with feeding infusing. Pt. came with a 22 G IV to left hand. Pt. opens her eyes but no verbal communication. Pt. cleaned pt. had a small soft brown BM. Pt. has a peace draining to peace bag that is hanging below. Pt. has a trach with blow by and tolerating well.
--- NOTE | 2024-04-21 07:43 | XR_ITS ---
Examination: AP chest single view Technique one AP portable supine chest single view Exam date and time: April 21, 2024 0921 hrs. Comparison April 13, 2024 Indications: Significant opacity left lung including layering left pleural fluid Tracheostomy tube tip 6 cm above segundo Prominent vascular congestion Prominent osteopenia Impression: Mild heart failure Prominent left lung pneumonia Significant layering left pleural fluid, consider ultrasound left hemithorax follow-up
--- NOTE | 2024-04-21 07:43 | EKG_ITS ---
[facility] Test Date: 2024-04-21 Pat Name: DAJUAN PAZ Department: Room: - Gender: Female Manager Acute: : 1940 Requested By: Mike Navarro Order Number: [id number] Reading MD: Mike Navarro Measurements Intervals [place] Rate: 73 P: 10 ID: [id number] QRS: -20 QRSD: 94 T: 33 QT: 441 QTc: 489 Interpretive Statements SINUS RHYTHM Compared to ECG 04/14/2024 10:51:47 Atrial fibrillation no longer present T-wave abnormality no longer present /store/S0/[id number]
--- NOTE | 2024-04-21 07:43 | XR_ITS ---
Examination: CT brain head without contrast. 2-D sagittal coronal reconstructions Date and time of exam:April 21, 2024 at 0812 hours INDICATIONS: Onset fever loss of consciousness episode this morning followed by altered mental status CTDI: vol (mGy):47.9 DLP: (mGycm):968 Technique: Multiple CT axial sections of the brain have been obtained, 5 mm slice thickness. Contrast has not been administered. 2-D sagittal, coronal reconstructions have been obtained Low dose protocols were performed. One or more of the following dose reduction techniques were used; automated exposure control, adjustment of the mA and/or KV according to patient size, use of iterative reconstruction technique. Findings: No significant ventricular enlargement. Small old bilateral cerebellar hemisphere infarcts Low density 38 mm in the left temporal lobe suspicious for acute infarct Intra-axial or extra-axial hemorrhage density is not seen. No mass effect or midline shift Basal cisterns are not remarkable. Fourth ventricle is midline. Cranial vault intact. Impression: Negative for acute hemorrhage, mass effect or midline shift Low-density in the left temporal lobe, axial image 28, suspicious for acute infarct, clinical correlation is advised Consider brain MRI follow-up
--- NOTE | 2024-04-21 07:46 | PD.EDFEVER ---
ED Fever RME/HPI General Chief Complaint: Fever Stated Complaint: FEVER Time Seen by Provider: 04/21/24 07:35 Arrival date/time: 04/21/24 07:21 RME / HPI RME / HPI Narrative: DR. NAVARRO MAIN ED EVALUATION: Patient is an 83-year-old trach patient coming from subacute who has a fever sent here for septic evaluation from the subacute area of the hospital. And evidently his feeding tube and tracheostomy/ventilator dependent. No other information is available there is no family present patient was reported to have a fever of 102 prior to coming over here. Evidently patient is already on ceftriaxone for uncertain reasons. Related Data Allergies Allergy/AdvReac Type Severity Reaction Status Date / Time No Known Allergies Allergy Verified 04/13/24 19:30 Review of Systems Review of Systems ROS Unobtainable: unobtainable due to medical condition (Patient evidently is nonverbal gives eye contact only is the best response.) Past Medical History Past Medical History NEUROLOGIC: Positive Neurological Disorders and Cerebrovascular Accident CARDIAC: Positive Cardiac Disorders, Atrial Fibrillation, Hypercholesterolemia, Edema and Hypertension ENDOCRINE: Positive Endocrine Disorders and Diabetes Mellitus Type 2 Surgical History SURGICAL: Positive Tracheostomy and Gastrostomy Social History SMOKING STATUS: Unknown if ever smoked SECOND HAND EXPOSURE: No SUBSTANCE USE: does not use ALCOHOL: Never Physical Exam Narrative Physical exam: Physical Exam: General: The vital signs were reviewed. Patient is on a ventilator his trached t he has minimal interaction with eyes nonverbal for obvious reasons Head & Scalp: Normocephalic, atraumatic. Face: Appears normal and is without lesions, deformity. Ears: Left external pinna appears normal. Right external pinna appears normal. Eyes: The sclera is anicteric. No obvious photophobia. The Left and Right Orbit/Lid/Conjunctiva appears normal without swelling, discoloration or injection. Nose: The nose is without deformity, discharge or tenderness; Throat: Appears normal. The mucous membranes are pink and moist without exudates, redness or mass seen. The tongue appears normal. Neck: The neck is supple and no apparent mass or adenopathy. Chest: The chest wall is normal in size and symmetry and has no chest wall tenderness or crepitus. The patient displays normal ventilator effort without retractions, accessory muscle use and has adequate air movement bilaterally with no wheezes and no rales. Cardiovascular: Regular rate and rhythm; No murmurs, rubs, or gallops; Gastrointestinal: The abdomen appears normal. No obvious hernias or mass. The abdomen is soft and benign, non-distended, with no pain, no guarding and no rebound tenderness. Bowel sounds are present and normal sounding. No CVA tenderness. Genitourinary: Back/Spine: Appears clean Extremities/Musculoskeletal/lymphatic: Padding on bilateral hips to prevent decubiti and a dressing on the sacral stage I decubitus Skin: The skin is warm, dry and intact. No rashes. No petechia. No purpura. No abnormal bruising. The color is appropriate with no cyanosis. Mental status/Psychiatric: Mental status is baseline noninteractive eye contact only Neurological: The patient is not interactive eye contact nonverbal does not follow commands. ED Exam Narrative Physical exam: Physical Exam:? General:?? ? Patient is ventilator dependent with a tracheostomy in place. The vital signs were reviewed. Fever was present with a temperature 102 in subacute before bringing over here. Evidently given Tylenol as the temperature is now normalized The patient is arousable with verbal and painful stimuli but immediately falls back to sleep and becomes inattentive. Patient had a respirations per ventilator but with coarse breath sounds and. O2 sats are adequate at the present time. Head & Scalp:?? ? Normocephalic, atraumatic. Face:?? ? Appears normal and is without lesions, deformity. No apparent trauma Ears:??? Left external pinna appears normal. Right external pinna appears normal. Eyes:?? ? The sclera is anicteric. The Left and Right Orbit/Lid/Conjunctiva appears normal without swelling, discoloration or injection. Nose: ? ? The nose is without deformity, discharge or tenderness; Throat: ? ? Appears normal.? The mucous membranes are pink and moist without exudates, redness or mass seen.? The tongue appears normal. Neck: The neck is supple and no apparent mass or adenopathy. Chest: The chest wall is normal in size and symmetry and has no chest wall tenderness or crepitus. The patient displays adequate ventilator effort without retractions, accessory muscle use. Patient has adequate air movement bilaterally with no wheezes and no rales. ? Cardiovascular: Regular rate and rhythm; No murmurs, rubs, or gallops; Gastrointestinal: The abdomen appears normal.? No obvious hernias or mass. The abdomen is soft and benign, non-distended, with no pain, no guarding and no rebound tenderness.? Bowel sounds are present and normal sounding.? No CVA tenderness. Genitourinary: No apparent injury or trauma. Back/Spine: No apparent injury or trauma Extremities/Musculoskeletal/lymphatic:? ? ? The bilateral upper and lower extremities are warm. There is no evidence of arterial? insufficiency. There is no evidence of venous insufficiency/edema. The patient is obtunded but displays no obvious focal deficits and spontaneously moves bilateral upper and lower extremities with painful or verbal stimuli There is no apparent, injury or trauma. Skin:??? Patient was rolled and looked the whole back and hips were looked at both hips have protective padding in place there is a grade 1 to decubitus in the sacral area again with a there is no drainage or discharge. There is a large area of eschar present which is dry. The skin is warm, dry and intact.? No rashes. No petechia. No purpura. No abnormal bruising.? The color is appropriate with no cyanosis. Mental status/Psychiatric: Mental status is obtunded no further evaluation can be made Neurological:? The patient is her usual baseline mental status with eye contact otherwise no other response. Course Course Course Narrative: 0730: Sepsis alert initiated. Orders made at this time are congruent with ED Adult Sepsis Order List. Re-evaluation is to be completed. 0846: Fluids started. 0916: Sepsis reassessment performed consisting of lab review, vitals, physical exam including auscultation of heart, lungs, and visual evaluation of capillary refills, mucosal membranes and extremities. Quality Measures none Orders Category Date Time Status Bedside Blood Glucose NOW Care 04/21/24 07:43 Active EKG (ED ONLY) *Do not use* NOW Care 04/21/24 07:[address] head/brain wo con Stat Exams 04/21/24 07:43 Completed EKG (ED Only) Stat Exams 04/21/24 07:43 Draft XR chest 1V portable Stat Exams 04/21/24 07:43 Completed Alcohol, Blood Medical Stat Lab 04/21/24 07:50 Completed Ammonia Stat Lab 04/21/24 07:50 Completed B-Type Natriuretic Peptide Stat Lab 04/21/24 07:50 Completed Blood Culture (Lab) Stat Lab 04/21/24 07:50 Received CBC Stat Lab 04/21/24 07:50 Completed Comprehensive Metabolic Panel Stat Lab 04/21/24 07:50 Completed Drug Screen,Urine Stat Lab 04/21/24 08:53 Completed Lactate (Lactic Acid) Stat Lab 04/21/24 07:50 Completed Procalcitonin Stat Lab 04/21/24 07:50 Completed Prothrombin Time with INR Stat Lab 04/21/24 07:50 Completed Troponin I Stat Lab 04/21/24 07:50 Completed Type and Screen Stat Lab 04/21/24 07:50 Completed Urinalysis Stat Lab 04/21/24 08:53 Completed Urinalysis, C/S if Indicated Stat Lab 04/21/24 08:53 Completed Venous Blood Gas Stat Lab 04/21/24 07:50 Completed Piper/Tazo 3.375 gm [Zosyn] Med 04/21/24 07:42 Discontinued 3.375 gm in 50 ml IV X1 Sodium Chloride 0.9% 1000 ml [Ns] 1,000 ml Med 04/21/24 07:42 Discontinued IV 2,000 mls/hr Vancomycin Inj 1,000 mg Med 04/21/24 07:43 Discontinued Sodium Chloride 0.9% 250 ml [Ns] 250 ml IV X1 Vital Signs Vital signs: Vital Signs Temperature 99.6 F 04/21/24 07:27 Pulse Rate 75 04/21/24 07:27 Respiratory Rate 16 04/21/24 07:27 Blood Pressure 125/60 04/21/24 07:27 Pulse Oximetry (%) 92 L 04/21/24 07:27 Oxygen Delivery Method Blow-by 04/21/24 07:27 Oxygen Flow Rate 10 04/21/24 07:27 Fever MDM Narrative MDM Narrative:: Patient 83-year-old that has a fever from the subacute already on antibiotics and obviously debilitated. Medical workup was initiated. Because of the fever and debilitated state go ahead and start on broad-spectrum antibiotics as already on ceftriaxone and still has a breakthrough fever. White count came back elevated 14.3 hemoglobin is low at 8.7 but is at baseline. Venous blood gas pH is 7.51 sodium 130 potassium 4.4 chloride 96 CO2 27 BUN is 37 creatinine is 0.8 and note the BUN is normally in this range. Lactic acid came back at 1.3 BNP was elevated at 823 troponin was negative. Urinalysis came back with 11 red cells and 3 white cells urine drug screen came back negative alcohol level was negative Chest x-ray was read by myself reveals obvious pneumonia CT of the head was unremarkable and no acute seen. Patient is at the subacute spiking fevers concern for sepsis was sent here and started on broad-spectrum antibiotics and be admitted to confirm stabilization before can go back to subacute. Hospitalist was called and they will be admitting. Eliza Strickland, am scribing for and in the presence of Dr. Navarro. Patient data External records reviewed:: [facility] previous records (Reviewed subacute note by Dr. Hernandez, dated 04/20/24.) Clinical information provided by:: none (subacute nurse) Social determinants that could affect healthcare access:: housing (subacute) Patient has the following chronic illnesses:: CVA, atrial fibrillation, hypercholesterolemia, hypertension, diabetes, tracheostomy and gastrostomy. How is presenting disease/condition affected by chronic disease/condition?: exacerbated by Evaluation data The following diagnostics were reviewed and interpreted by me:: lab results, radiology exam(s) and EKG tracing(s) (EKG#1: Dated 04/21/2024 at 1047 hours. Interpreted by me: sinus rhythm, rate 73, no STEMI) Lab and/or radiology exams considered but not ordered:: none Interpretation Summary: See above under MDM narrative. RADIOLOGY Procedure(s): XR chest 1V portable Accession Number(s): [id number] cc: Mike Navarro MD; Prem Dowd MD; Misha Hernandez MD~ Examination: AP chest single view Technique one AP portable supine chest single view Exam date and time: April 21, 2024 0921 hrs. Comparison April 13, 2024 Indications: Significant opacity left lung including layering left pleural fluid Tracheostomy tube tip 6 cm above segundo Prominent vascular congestion Prominent osteopenia Impression: Mild heart failure Prominent left lung pneumonia Significant layering left pleural fluid, consider ultrasound left hemithorax follow-up Dictated By: Prem Dowd MD Procedure(s): CT head/brain wo con Accession Number(s): [id number] cc: Mike Navarro MD; Prem Dowd MD; Misha Hernandez MD~ Examination: CT brain head without contrast. 2-D sagittal coronal reconstructions Date and time of exam:April 21, 2024 at 0812 hours INDICATIONS: Onset fever loss of consciousness episode this morning followed by altered mental status CTDI: vol (mGy):47.9 DLP: (mGycm):968 Technique: Multiple CT axial sections of the brain have been obtained, 5 mm slice thickness. Contrast has not been administered. 2-D sagittal, coronal reconstructions have been obtained Low dose protocols were performed. One or more of the following dose reduction techniques were used; automated exposure control, adjustment of the mA and/or KV according to patient size, use of iterative reconstruction technique. Findings: No significant ventricular enlargement. Small old bilateral cerebellar hemisphere infarcts Low density 38 mm in the left temporal lobe suspicious for acute infarct Intra-axial or extra-axial hemorrhage density is not seen. No mass effect or midline shift Basal cisterns are not remarkable. Fourth ventricle is midline. Cranial vault intact. Impression: Negative for acute hemorrhage, mass effect or midline shift Low-density in the left temporal lobe, axial image 28, suspicious for acute infarct, clinical correlation is advised Consider brain MRI follow-up Dictated By: Prem Dowd MD Medications / Prescriptions Medications or Prescriptions considered but not ordered:: none Medication administrations:: Medication Administration History Acetaminophen (Acetaminophen 325 Mg Tablet) 650 mg PO Q6H PRN PRN Reason: PAIN SCALE 1-3 (mild Stop: 05/21/24 16:46 Acetaminophen (Acetaminophen 325 Mg Tablet) 650 mg PO Q6H PRN PRN Reason: Fever >100 Stop: 05/21/24 16:46 Albuterol/Ipratropium (Albuterol/Ipratropium (Duoneb) Rt Viviana 3 Ml Nebu) 3 ml INH Q6HRRT AMARJIT Stop: 05/21/24 18:59 Last Admin: 04/21/24 19:05 Dose: 3 ml Documented By: MOISE Amiodarone HCl (Amiodarone Hcl 200 Mg Tablet) 200 mg GT QDAY AMARJIT Stop: 05/21/24 17:44 Last Admin: 04/21/24 18:29 Dose: 200 mg Documented By: ED Apixaban (Apixaban 2.5 Mg Tablet) 2.5 mg GT BID AMARJIT Stop: 05/21/24 20:59 Dextrose (Dextrose 50%-Water Inj 50 Ml Syringe) 25 ml IV Q15MIN PRN PRN Reason: BG 50-70 responsive npo pt Stop: 05/21/24 17:33 Dextrose (Dextrose 50%-Water Inj 50 Ml Syringe) 50 ml IV Q15MIN PRN PRN Reason: BG <50 OR BG <70 & pt unresponsive Stop: 05/21/24 17:33 Glucagon (Glucagon Inj 1 Mg Vial) 1 mg IM Q15MIN PRN PRN Reason: BG <70, and no IV access Piperacillin/Tazobactam/Dextrose (Zosyn) 3.375 gm in 50 mls @ 12.5 mls/hr IV Q8HR AMARJIT Stop: 04/28/24 21:59 Vancomycin/Sodium Chloride (Vancomycin/Ns 1 Gm Ivpb) 200 mls @ 120 mls/hr IV Q24H AMARJIT Stop: 04/29/24 09:59 Sodium Chloride (Ns) 500 mls @ 60 mls/hr IV .Q8H20M ONE Stop: 04/22/24 02:18 Last Admin: 04/21/24 18:27 Dose: 60 mls/hr Documented By: ED Insulin Human Lispro (Insulin Lispro (Admelog) 1 Unit/0.01 Ml Unit) 0 unit SC ACHS AMARJIT; Protocol Stop: 05/21/24 20:59 Lactulose (Lactulose Syrup 20 Gm/30 Ml Udc) 20 gm GT BID AMARJIT; Protocol Stop: 05/21/24 20:59 Metoprolol Tartrate (Metoprolol Tartrate 25 Mg Tablet) 25 mg GT BID AMARJIT Stop: 05/21/24 20:59 Ondansetron HCl (Ondansetron Inj 2 Mg/Ml Inj 2 Ml) 4 mg IV Q6H PRN; Protocol PRN Reason: NAUSEA OR VOMITING Stop: 05/21/24 16:46 Pantoprazole Sodium (Pantoprazole Inj 40 Mg Vial) 40 mg IVP QDAY [facility] Stop: 05/22/24 08:59 Pharmacy Consult (Vancomycin Pharmacy To Dose 1 Each Each) 1 each IV QDAY PRN PRN Reason: PROTOCOL Stop: 05/22/24 08:59 Sennosides (Senna Tablet) 1 tab GT QDAY PRN; Protocol PRN Reason: Constipation Stop: 05/21/24 17:50 Discontinued Medications Amlodipine Besylate (Amlodipine Besylate 5 Mg Tablet) 10 mg PO QDAY [facility] Stop: 05/22/24 08:59 Piperacillin/Tazobactam/Dextrose (Zosyn) 3.375 gm in 50 mls @ 100 mls/hr IV X1 ONE Stop: 04/21/24 08:11 Last Infusion: 04/21/24 09:14 Dose: Infused Documented By: Admin: 04/21/24 08:44 Dose: 100 mls/hr Documented By: ED Vancomycin HCl 1,000 mg/ (Sodium Chloride) 250 mls @ 150 mls/hr IV X1 ONE Stop: 04/21/24 09:22 Last Infusion: 04/21/24 12:33 Dose: Infused Documented By: Admin: 04/21/24 09:41 Dose: 150 mls/hr Documented By: ED Sodium Chloride (Ns) 1,000 mls @ 2,000 mls/hr IV .Q30M ONE Stop: 04/21/24 08:11 Last Infusion: 04/21/24 12:33 Dose: Infused Documented By: Admin: 04/21/24 08:46 Dose: 2,000 mls/hr Documented By: ED Piperacillin/Tazobactam/Dextrose (Zosyn) 3.375 gm in 50 mls @ 100 mls/hr IV X1 ONE Stop: 04/21/24 17:29 Last Admin: 04/21/24 18:27 Dose: 100 mls/hr Documented By: ED Sodium Chloride (Sodium Chloride Rt 10% 15 Ml Nebu) 5 ml INH X1 ONE Stop: 04/21/24 16:48 Last Admin: 04/21/24 19:06 Dose: Not Given Documented By: MOISE Non-Admin Reason: Not needed for sputum induction see above Consultations Consultation(s) initiated? (list below): Yes Consultation #1 (Physician, Specialty, Details): Discussed test HPI, PMHx, lab, radiology results and/or management with hospitalist. Will admit for further evaluation and management. Accepts patient for admission. Time: 15:43 Diagnosis Fever Differential Diagnosis: community acquired pneumonia, viral infection, sepsis, influenza and other Most likely diagnosis given after review of the tests above:: Left lower lobe pneumonia AMS Tracheostomy in place Admission Indicated Admission indicated?: indicated Admission Request Was there a request for admission?: Yes Admission Attestation Admission request attestation: Discussed case with [] from Hospitalist service regarding admission. Discussed patients ED course, exam findings, labs, and radiology results. The Hospitalist [agrees,declines] to accept the patient for admission. Disposition Plan Disposition Plan: Admit Critical Care Time Critical Care Time Critical Care Time: Yes Total Critical Care Time (min.): 30 Attestation: The high probability of sudden, clinically significant deterioration in the patient?s condition required the highest level of my preparedness to intervene urgently. The services I provided to this patient were to treat and/or prevent clinically significant deterioration. Services included the following: chart data review, reviewing nursing notes and/or old charts, documentation time, design consultant collaboration regarding findings and treatment options, medication orders and management, direct patient care, vital sign assessments and ordering, interpreting and reviewing diagnostic studies and lab tests. Aggregate critical care time includes only time during which I was engaged in work directly related to the patient?s care, as described above, whether at bedside or elsewhere in the Emergency Department. It did not include time spent performing other reported procedures or the services of residents, students, nurses or physician assistants. Discharge Plan Plan Patient Disposition: Admit Acute Care w/in Hospital Disposition Comment: Hospitalist to admit Problem List Clinical Impression: Left lower lobe pneumonia, Altered mental status, Tracheostomy in place
[2024-04-21 08:12] LABS: Base Excess, Venous 5 (-3-3); Lactate (Lactic Acid) 1.3 mMol/L (0.4-2.0); O2 Saturation, Venous 100 % (96-97); PCO2, Venous 36 mmHg (36-56); PO2, Venous 99 mmHg (15-58); pH, Venous 7.51 (7.33-7.66)
[2024-04-21 08:28] LABS: INR 1.2 (0.9-1.3); Prothrombin Time 13.1 Seconds (9.0-12.2)
[2024-04-21 08:35] LABS: Ammonia < 10 uMol/L (11-32)
[2024-04-21 08:36] LABS: Basophils # (Auto) 0.1 Thou/mm3 (0.0-0.2); Basophils % (Auto) 1 % (0-2.5); Eosinophils # (Auto) 0.1 Thou/mm3 (0.0-0.5); Eosinophils % (Auto) 0 % (0-10); Immature Granulocytes % (Auto) 1 % (0-0); Immature Granulocytes Auto 0.07 Thou/mm3 (0.00-0.00); Lymphocytes # (Auto) 0.7 Thou/mm3 (1.0-4.8); Lymphocytes % (Auto) 5 % (10-50); Mean Corpuscular HGB Conc 33.5 g/dl (31.0-37.0); Mean Corpuscular Hemoglobin 29.3 pg (25.0-35.0); Mean Corpuscular Volume 88 fL (80-100); Monocytes # (Auto) 0.9 Thou/mm3 (0.0-0.8); Monocytes % (Auto) 7 % (0-12); Neutrophils # (Auto) 12.5 Thou/mm3 (1.8-7.7); Neutrophils % (Auto) 88 % (37-80); Nucleated Red Blood Cell % 0 /100 WBC (0); Platelet Count 360 Thou/mm3 (140-440); RDW Standard Deviation 48.3 fL (36.4-46.3); Red Blood Count 2.97 Miln/mm3 (4.00-5.20); White Blood Count 14.3 Thou/mm3 (3.6-11.0)
[2024-04-21 08:39] LABS: Hemoglobin 8.7 g/dL (12.0-16.0)
[2024-04-21] MEDS: PIPER/TAZO 3.375 GM 3.375 GM/50 ML BAG IV ×3 (08:44→21:48)
[2024-04-21] MEDS: SODIUM CHLORIDE 0.9% 1000 ML 1,000 ML 2000 ML IV (08:46)
[2024-04-21 08:47] LABS: Alanine Aminotransferase 22 U/L (10-49); Albumin, Serum 3.1 gm/dL (3.4-4.8); Albumin/Globulin Ratio 1.1 (1.2-2.2); Alcohol, Blood Medical < 3.0 mg/dL (0-10.0); Alkaline Phosphatase 64 U/L (46-116); Anion Gap 7 (7-16); Aspartate Amino Transferase 28 U/L (0-34); BUN/Creatinine Ratio 46 Ratio (12-20); Bilirubin,Total 0.2 mg/dL (0.3-1.2); Blood Urea Nitrogen 37 mg/dL (9-23); Calcium 7.9 mg/dL (8.3-10.6); Calcium (Corrected) 8.6 mg/dL (8.5-10.1); Carbon Dioxide 26.6 mMol/L (20.0-31.0); Chloride 96 mMol/L (98-107); Creatinine (Component) 0.8 mg/dL (0.6-1.3); Estimated Creatinine Clearance 40.2 mL/min (>60); Globulin 2.9 gm/dL (2.3-3.5); Glucose 198 mg/dL (74-106); Osmolality,Calculated 275 (275-295); Potassium 4.4 mMol/L (3.4-5.1); Procalcitonin 0.95 ng/ml (0.0-0.49); Sodium 130 mMol/L (136-145); Troponin I 0.045 ng/mL (0.0-0.045); eGFR > 60 See Note
[2024-04-21 08:59] LABS: B-Type Natriuretic Peptide 823 pg/mL (0-100)
[2024-04-21 09:16] LABS: Collection Type, Urine Clean Catch
[2024-04-21 09:31] LABS: Amphetamine/Methamp Scrn,U Negative (Negative); Barbiturate Screen,Urine Negative (Negative); Benzodiazepines Screen,Urine Negative (Negative); Benzoylecgonine Screen, Ur Negative (Negative); Fentanyl Screen,Urine Negative (Negative); Opiate Screen,Urine Negative (Negative); THC Screen,Urine Negative (Negative)
[2024-04-21] MEDS: Vancomycin Inj 1,000 MG in SODIUM CHLORIDE 0.9% 250 ML 250 ML 150 MG IV (09:41)
--- NOTE | 2024-04-21 09:45 | PC.NURSE ---
Pt. has Glucerna 1.2 tasia infusing 55 ml an hour through G tube. Pt. tolerating well.
[2024-04-21 10:12] LABS: Bilirubin,Urine Negative (Negative); Blood,Urine 1+ (Negative); Clarity,Urine Clear (Clear/Hazy); Color,Urine Yellow (Lt Yel-Yel); Culture Indicated,Urine Not Indicated; Glucose, Urine Negative (Negative); Ketones,Urine Negative (Negative); Leukocyte Esterase,Urine Negative (Negative); Nitrite,Urine Negative (Negative); PH,Urine 6.5 (5.0-7.0); Protein,Urine 3+ (Neg - Trace); RBC,Urine 11 /hpf (0-3); Squamous Epithelial Cell,Urine 3 /hpf (0-5); Urobilinogen,Urine Negative mg/dL (0.0-1.0); WBC,Urine 3 /hpf (0-5)
--- NOTE | 2024-04-21 16:58 | ESHP_ITS ---
Documentation for date of: 04/21/24 HPI History of Present Illness History of present illness: This is an 83-year-old female, chronically trach with PEG tube secondary to multiple strokes, seizure disorder, A-fib, HTN, T2DM on INSULIN. She is coming from [facility] with fever of 102. At baseline patient nonverbal, does not follow command, opens eyes spontaneously, thus history is limited. Remainder of history obtained from [facility], who stated patient was recently admitted under their service, roughly a week ago. She has a history of large cerebral occlusion in 2023, which is how she ended up with her current condition. He was started about a day ago. They've ordered cultures which are currently pending and have given 1 dose of CEFTRIAXONE. [facility] does not have a source of infection other than deep tissue sacral ulcer. No stool abnormalities other than soft stools secondary to LACTULOSE which she takes twice daily. Next of kin is Xochitl, son. We have reached out to Xochitl and informed him of the patient's admission. Will admit patient for further workup. ED COURSE: T102.0, HR 80s, BP 125/60, RR 20, satting 92% on 35 blow-by. WBC 22.2, Hgb 8.4, PLT 407, normal coag studies. VBG showed pH 7.51, CO2 36, O2 99. Sodium 130, GLUCOSE 198, BNP 823, Pro-Calc 0.95. Troponin normal, EKG sinus rhythm without acute ST changes. CXR showed mild heart failure, prominent left lung pneumonia, significant left lower fluid concerning for left hemothorax. PMHx: CVA 2023, seizure, HTN, DM, A-fib PSHx: Unclear MEDS: AMIODARONE 200 daily, NORVASC 10 mg daily, ELIQUIS 2.5 BID, LOPRESSOR 25 BID, DuoNebs, ATORVASTATIN 80 HS, LACTULOSE 20 g BID. ALLERGIES: No known allergy SH: Unknown Exam Vital Signs Temp Pulse Resp BP Pulse Ox O2 Del Method O2 Flow Rate 98.1 F 82 34 H 136/66 H 97 Room Air 10 04/21/24 15:04 04/21/24 15:04 04/21/24 15:04 04/21/24 15:04 04/21/24 15:04 04/21/24 15:04 04/21/24 15:04 Narrative Exam GENERAL * Appears comfortable, nonfebrile, no apparent distress. HEENT * NCAT.?BLAISE. Oral mucosa is moist. Patent Nares NECK * Supple, nontender, no thyromegaly, no meningismus, no JVD, no step offs CHEST * RRR, unable to appreciate M/G/R secondary to coarse breath sounds * Severely coarse breath sounds bilaterally. No intercostal subcostal retraction * Atraumatic, nontender, no crepitus, symmetrical expansion. ABDOMEN * Soft, flat, nontender. No guarding/rebound tenderness/masses. * Bowel sounds presents EXTREMITIES * Nontender, no cyanosis, no edema * No edema/cyanosis.? SKIN * Warm and dry, no jaundice/rashes. NEUROMUSCULAR/PSYCH * Limited exam. Does not follow command. Opens eyes spontaneously. Results: Labs 04/23/24 08:18 04/23/24 05:15 Labs: Short CBC 04/21/24 Range/Units 07:50 WBC 14.3 H D (3.6-11.0) Thou/mm3 Hgb 8.7 L (12.0-16.0) g/dL Hct 26.0 L (36.0-46.0) % Plt Count 360 D (140-440) Thou/mm3 BMP 04/21/24 07:50 Sodium 130 L Potassium 4.4 Chloride 96 L Carbon Dioxide 26.6 BUN 37 H Creatinine 0.8 Glucose 198 H Calcium 7.9 L Cardiac Enzymes 04/21/24 Range/Units 07:50 Troponin I 0.045 (0.0-0.045) ng/mL Liver Function 04/21/24 Range/Units 07:50 Total Bilirubin 0.2 L (0.3-1.2) mg/dL AST 28 (0-34) U/L ALT 22 (10-49) U/L Alkaline Phosphatase 64 (46-116) U/L Albumin 3.1 L (3.4-4.8) gm/dL Urine 04/21/24 Range/Units 08:53 Urine Color Yellow (Lt Yel-Yel) Urine Clarity Clear (Clear/Hazy) Urine pH 6.5 (5.0-7.0) Ur Specific [place] 1.020 (1.001-1.035) Urine Protein 3+ A (Neg - Trace) Urine Glucose (UA) Negative (Negative) ABG Interpretation ABG results: 04/21/24 07:50 VBG pH 7.51 VBG pCO2 36 VBG pO2 99 H VBG Base Excess 5 H Quality Measures Quality Measures none Advance care planning discussed with:: patient Medications Home Medications and Allergies Allergies Allergy/AdvReac Type Severity Reaction Status Date / Time No Known Allergies Allergy Verified 04/13/24 19:30 Visit Medications Acetaminophen (Acetaminophen 325 Mg Tablet) 650 mg PO Q6H PRN PRN Reason: PAIN SCALE 1-3 (mild Stop: 05/21/24 16:46 Acetaminophen (Acetaminophen 325 Mg Tablet) 650 mg PO Q6H PRN PRN Reason: Fever >100 Stop: 05/21/24 16:46 Piperacillin/Tazobactam/Dextrose (Zosyn) 3.375 gm in 50 mls @ 12.5 mls/hr IV Q8HR AMARJIT Stop: 04/28/24 21:59 Piperacillin/Tazobactam/Dextrose (Zosyn) 3.375 gm in 50 mls @ 100 mls/hr IV X1 ONE Stop: 04/21/24 17:29 Ondansetron HCl (Ondansetron Inj 2 Mg/Ml Inj 2 Ml) 4 mg IV Q6H PRN; Protocol PRN Reason: NAUSEA OR VOMITING Stop: 05/21/24 16:46 Pantoprazole Sodium (Pantoprazole Inj 40 Mg Vial) 40 mg IVP QDAY AMARJIT Stop: 05/22/24 08:59 Pharmacy Consult (Vancomycin Pharmacy To Dose 1 Each Each) 1 each IV QDAY PRN PRN Reason: PROTOCOL Stop: 05/22/24 08:59 Discontinued Medications Piperacillin/Tazobactam/Dextrose (Zosyn) 3.375 gm in 50 mls @ 100 mls/hr IV X1 ONE Stop: 04/21/24 08:11 Last Infusion: 04/21/24 09:14 Dose: Infused Vancomycin HCl 1,000 mg/ (Sodium Chloride) 250 mls @ 150 mls/hr IV X1 ONE Stop: 04/21/24 09:22 Last Infusion: 04/21/24 12:33 Dose: Infused Sodium Chloride (Ns) 1,000 mls @ 2,000 mls/hr IV .Q30M ONE Stop: 04/21/24 08:11 Last Infusion: 04/21/24 12:33 Dose: Infused Sodium Chloride (Sodium Chloride Rt 10% 15 Ml Nebu) 5 ml INH X1 ONE Stop: 04/21/24 16:48 Assessment & Plan Plan In summary: 83-year-old nonverbal female with 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 Sepsis 2/2 Pneumonia, CAP vs Aspiration vs HAP Significant left lung fluid Acute on Chronic Respiratory Failure Medical history is unclear. Patient was recently accepted at subacute unit. She is chronically pegged and trached. Apparently she has been spiking fevers of 102 over the last few days. Met 3/4 SIRS criteria with fever, tachypnea and leukocytosis. CXR showed prominent left lung pneumonia, significant left lung fluid. Will follow-up with CT She received 1 dose CEFTRIAXONE in subacute. Gentle fluid resuscitation given concern for CHF. ? Admit to telemetry ? Continue DuoNebs ? Continue ZOSYN (04/21 to present) ? Continue VANCOMYCIN (04/21 to present) ? Continue TYLENOL for fever ? Continued by flow ? Pending pancultures ? Pending CT chest to evaluate fluids HTN A-fib, likely paroxysmal HLD BP 136/66, HR 84, EKG shows sinus rhythm. Troponin normal. HASBLED 4 indicates high risk for major bleed. [id number] indicates 17% stroke/TIA/embolism. Will continue with home ELIQUIS based on clinical judgment and history of CVA. ? Continue home AMIODARONE 200 mg daily ? Continue home AMLODIPINE 10 mg daily ? Continue home ATORVASTATIN 80 mg HS ? Continue home ELIQUIS 2.5 mg BID Concern for new onset CHF exacerbation History of CHF per subacute. BNP 823. Coarse breath sounds on exam, unable to distinguish crackles. No lower extremity edema. No previous echo or BNP on record. CXR suggested CHF pattern. ? Holding home METOPROLOL 25 mg BID in settings of CHF exacerbation. ? Pending echocardiogram ? Pending TSH, lipid panel, A1c T2DM, insulin-dependent Admission GLUCOSE 198. A1c pending ? INSULIN sliding scale ? Accu-Cheks Hx of seizure disorder Not on home ANTIEPILEPTICS. No signs of seizures. ? Seizure precaution Deep sacral ulcer ? Wound care ? ANTIBIOTICS as above Mild hyponatremia Likely malnutrition. Admission sodium 130. Anticipate correction with rehydration. ? Daily CMP Chronic constipation Likely secondary to CVA. Patient on chronic LAXATIVES. ? Continue LACTULOSE 20 mg BID ? Continue senna daily Chronic PEG tube PEG tube appears intact without signs of infection. ? Continue PEG tube feed ? Consult dietitian Hx of CVA History of large cerebral vessel occlusion. Chronically trached and pegged. Opens eyes spontaneously. Does not follow command. Health maintenance Diet: PEG tube GI prophylaxis: PROTONIX DVT prophylaxis: ELIQUIS Antibiotics: ZOSYN, VANCOMYCIN CODE STATUS: DNR Disposition: Pending further workup Patient case was discussed with attending, Fahad Bansal MD and senior resident Dr. Andres. 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 We will start the patient on vanc and zosyn and follow up on cultures. I discussed with and supervised the video intern physician involved in the care of this patient. I personally saw and examined the patient and discussed the assessment and plan with the entire medicine team, including my attending. I agree with the assessment and plan as documented above. Benjamin Andres MD PGY2 Internal Medicine Attending Provider Attestation/Addendum I attest that I was physically present for the evaluation, physical examination, lab and imaging review of the patient with the residents. I discussed the case with the residents and agree with the findings and plans of care as documented above. Madeline Bansal MD
--- NOTE | 2024-04-21 17:06 | PC.RT ---
Sputum sent to lab
--- NOTE | 2024-04-21 17:31 | XR_ITS ---
Examination: CT chest, without intravenous contrast. Sagittal and coronal 2-D reconstructions. Exam date and time: April 22, 2024 at 12 0 5:00 PM INDICATIONS: Fever beginning yesterday CTDI:vol (mGy) 12.5 DLP: (mGycm) 397 Technique: Multiple 3.0 mm axial sections of the chest to been obtained. Bone and lung density settings are obtained. Sagittal and coronal 2-D reconstructions have been obtained. Low dose protocols were performed. One or more of the following dose reduction techniques were used; automated exposure control, adjustment of the mA and/or KV according to patient size, use of iterative reconstruction technique. Findings: Significant thyromegaly with bilateral prominent thyroid nodules Tracheal tube 5.3 cm above segundo Heavy thoracic aortic calcification Pulmonary artery segments are not enlarged Diffuse left lung pneumonia, large left moderate right pleural effusions Pneumonia right base Prominent vascular congestion Mild enlargement cardiac contour No focal liver or splenic lesions Kidneys partially visualized no hydronephrosis Prominent osteopenia IMPRESSION: Significant thyromegaly with prominent bilateral thyroid nodules Diffuse left lung pneumonia, right base pneumonia Large left moderate right pleural effusions
[2024-04-21] MEDS: SODIUM CHLORIDE 0.9% 500 ML 500 ML 60 ML IV (18:27)
[2024-04-21] MEDS: AMIODARONE HCL 200 MG TABLET GT (18:29)
[2024-04-21] MEDS: ALBUTEROL/IPRATROPIUM (Duoneb) RT SOL 3 ML NEBU INH (19:05)
--- NOTE | 2024-04-21 19:24 | PC.NURSE ---
Received report from Zeenat MONROY. Awake, no distress noted. Trach inplace and secured. Fio2 35% via T piece.
[2024-04-21] MEDS: LACTULOSE SYRUP 20 GM/30 ML UDC GT (21:45)
[2024-04-21] MEDS: APIXABAN 2.5 MG TABLET GT (21:46)
[2024-04-21] MEDS: METOPROLOL TARTRATE 25 MG TABLET GT (21:46)
[2024-04-21] MEDS: INSULIN LISPRO (AdmeLOG) 1 UNIT/0.01 ML UNIT SC (21:58)
[2024-04-22] VITALS (13 sets, daily range): BP systolic 110–137; BP diastolic 51–68; PULSE 68–86; RESP 19–30; TEMP 36.1–36.4; O2SAT 94–100
--- NOTE | 2024-04-22 00:05 | PC.NURSE ---
0004 per MD Bolivar, start tube feeding at 15mls water flushes 50ml every 2hrs, increase to 30mls at 0600
[2024-04-22] MEDS: ALBUTEROL/IPRATROPIUM (Duoneb) RT SOL 3 ML NEBU INH ×4 (00:37→18:25)
[2024-04-22] MEDS: PIPER/TAZO 3.375 GM 3.375 GM/50 ML BAG IV ×3 (05:49→21:00)
[2024-04-22 06:58] LABS: Glucose Estimated Average 137 mg/dL (80-131); Hemoglobin A1C 6.4 % Hgb (4.8-6.0)
[2024-04-22 07:07] LABS: Alanine Aminotransferase 45 U/L (10-49); Albumin, Serum 3.2 gm/dL (3.4-4.8); Albumin/Globulin Ratio 1.1 (1.2-2.2); Alkaline Phosphatase 64 U/L (46-116); Anion Gap 7 (7-16); Aspartate Amino Transferase 49 U/L (0-34); BUN/Creatinine Ratio 43 Ratio (12-20); Bilirubin,Total 0.3 mg/dL (0.3-1.2); Blood Urea Nitrogen 30 mg/dL (9-23); Calcium 8.2 mg/dL (8.3-10.6); Calcium (Corrected) 8.8 mg/dL (8.5-10.1); Carbon Dioxide 27.6 mMol/L (20.0-31.0); Cardiac Risk Estimate 2.7 RATIO (3.7-5.6); Chloride 101 mMol/L (98-107); Cholesterol 85 mg/dL (132-200); Creatinine (Component) 0.7 mg/dL (0.6-1.3); Free T4 (Free Thyroxine) 2.01 ng/dL (0.89-1.76); Glucose 166 mg/dL (74-106); HDL Cholesterol 31 mg/dL (40-60); LDL Cholesterol,Calculated 39 mg/dL (0-130); Osmolality,Calculated 282 (275-295); Phosphorous 3.9 mg/dL (2.4-5.1); Potassium 4.4 mMol/L (3.4-5.1); Sodium 136 mMol/L (136-145); Thyroid Stimulating Hormone 0.14 uIU/mL (0.55-4.78); Total Protein 6.2 gm/dL (5.7-8.2); Triglycerides 75 mg/dL (30-150); eGFR > 60 See Note
[2024-04-22 07:41] LABS: Basophils # (Auto) 0.1 Thou/mm3 (0.0-0.2); Basophils % (Auto) 0 % (0-2.5); Eosinophils # (Auto) 0.1 Thou/mm3 (0.0-0.5); Eosinophils % (Auto) 0 % (0-10); Hematocrit 22.3 % (36.0-46.0); Immature Granulocytes % (Auto) 1 % (0-0); Immature Granulocytes Auto 0.07 Thou/mm3 (0.00-0.00); Lymphocytes % (Auto) 7 % (10-50); Mean Corpuscular HGB Conc 33.6 g/dl (31.0-37.0); Mean Corpuscular Hemoglobin 29.3 pg (25.0-35.0); Mean Corpuscular Volume 87 fL (80-100); Monocytes # (Auto) 1.4 Thou/mm3 (0.0-0.8); Monocytes % (Auto) 10 % (0-12); Neutrophils % (Auto) 82 % (37-80); Nucleated Red Blood Cell % 0 /100 WBC (0); Platelet Count 401 Thou/mm3 (140-440); Red Blood Count 2.56 Miln/mm3 (4.00-5.20); White Blood Count 14.6 Thou/mm3 (3.6-11.0)
[2024-04-22 07:43] LABS: Hemoglobin 7.5 g/dL (12.0-16.0)
[2024-04-22] MEDS: LACTULOSE SYRUP 20 GM/30 ML UDC GT ×2 (08:07→20:53)
[2024-04-22] MEDS: INSULIN LISPRO (AdmeLOG) 1 UNIT/0.01 ML UNIT SC ×4 (08:07→20:57)
[2024-04-22] MEDS: AMIODARONE HCL 200 MG TABLET GT (08:07)
[2024-04-22] MEDS: APIXABAN 2.5 MG TABLET GT ×2 (08:08→20:53)
[2024-04-22] MEDS: PANTOPRAZOLE INJ 40 MG VIAL IVP (08:08)
--- NOTE | 2024-04-22 09:53 | PC.SS ---
Patient Monisha Guaman is a 83 Year old female admitted for fever. Patient is from [facility]. SS attempted to contact patient's son Rashel however did not answer. SS contacted patient's son, Jemal and he informed SS that Rashel Her is patient's surrogate decision maker [phone]. Patient's son reports patient has been in [facility] subacute for obly 2 Weeks. patient in non verbal and trach. Patient is bed bound. At time of discharge patient will return to Subacute. Discharge plan [facility] Next of Kin: Rashel Her [phone]
--- NOTE | 2024-04-22 10:14 | ESPR_ITS ---
Documentation for date of: 04/22/24 Subjective Subjective Interval history: Patient was examined bedside this morning, Patient was examined bedside this morning, no acute overnight event. Pending CT chest and echo . started her home metoprolol,discontinue the vancomycin. Will continue Zosyn and azithromycin. Exam Vital Signs Temp Pulse Resp BP Pulse Ox O2 Del Method O2 Flow Rate 96.9 F 80 20 134/68 H 100 T-Piece 7 04/22/24 07:51 04/22/24 08:07 04/22/24 07:51 04/22/24 08:07 04/22/24 07:51 04/22/24 07:51 04/22/24 07:51 FiO2 30 04/22/24 07:51 Narrative Exam GENERAL: Comfortable adult seen resting comfortably in hospital bed, no acute distress, chronically trec and pegged HEENT: Normocephalic, atraumatic. Pupils are equal and reactive. NECK: Supple, nontender, no JVD CHEST: Symmetrical, atraumatic and with equal expansion ,Nontender on palpation CARDIOVASCULAR: Heart regular rhythm & rate. S1/S2. no murmur or gallop rub or extra beats. LUNGS: Clear to auscultation bilaterally with symmetrical chest rise. No laboring tachypnea or wheezing. No intercostal subcostal retraction. No rales and no rhonchi. ABDOMEN: Soft, flat, nontender to palpation, no guarding or rebound tenderness. Active and normal bowel sounds.peg tube in place EXTREMITIES:No B/L LE edema. SKIN: Warm and dry, no jaundice or rashes noted. NEURO: could not be obtained PSYCHIATRIC: could not be obtained Objective Labs 04/23/24 05:15 04/23/24 05:15 Labs: Laboratory Results - last 24 hr 04/21/24 04/22/24 08:53 05:27 WBC 14.6 H RBC 2.56 L Hgb 7.5 L Hct 22.3 L MCV 87 MCH 29.3 MCHC 33.6 RDW Std Deviation 48.0 H Plt Count 401 D Neut % (Auto) 82 H Lymph % (Auto) 7 L Gordon % (Auto) 10 Eos % (Auto) 0 Baso % (Auto) 0 Neut # (Auto) 12.0 H Lymph # (Auto) 1.0 Gordon # (Auto) 1.4 H Eos # (Auto) 0.1 Baso # (Auto) 0.1 Immature Gran # (Auto) 0.07 H Absolute Nucleated RBC 0.00 Immature Gran % 1 H Nucleated RBC % 0 Sodium 136 Potassium 4.4 Chloride 101 Carbon Dioxide 27.6 Anion Gap 7 BUN 30 H Creatinine 0.7 Estim Creat Clear Calc 46.0 L eGFR > 60 BUN/Creatinine Ratio 43 H Glucose [address] Glu mg/dL 137 H Hemoglobin A1c 6.4 H Calculated Osmolality 282 Calcium 8.2 L Corrected Calcium 8.8 Phosphorus 3.9 Magnesium 2.0 Total Bilirubin 0.3 AST 49 H ALT 45 Alkaline Phosphatase 64 Total Protein 6.2 Albumin 3.2 L Globulin 3.0 Albumin/Globulin Ratio 1.1 L Triglycerides 75 Cholesterol 85 L LDL Cholesterol, Calc 39 HDL Cholesterol 31 L Cholesterol/HDL Ratio 2.7 L TSH 0.14 L Free T4 2.01 H Ur Collection Type Clean Catch Urine Color Yellow Urine Clarity Clear Urine pH 6.5 Ur Specific [place] 1.020 Urine Protein 3+ A Urine Glucose (UA) Negative Urine Ketones Negative Urine Blood 1+ A Urine Nitrite Negative Urine Bilirubin Negative Urine Urobilinogen (Auto) Negative Ur Leukocyte Esterase Negative Urine RBC 11 H Urine WBC 3 Ur Squamous Epith Cells 3 Urine Bacteria None Ur Culture Indicated? Not Indicated ABG Interpretation ABG results: 04/21/24 07:50 VBG pH 7.51 VBG pCO2 36 VBG pO2 99 H VBG Base Excess 5 H Quality Measures Quality Measures none Advance care planning discussed with:: patient Assessment & Plan Assessment Current Active Medications: Generic Name Dose Route Start Last Admin Trade Name Freq PRN Reason Stop Dose Admin Acetaminophen 650 mg 04/21/24 16:47 Acetaminophen 325 Mg Tablet PO 05/21/24 16:46 Q6H PRN PAIN SCALE 1-3 (mild Acetaminophen 650 mg 04/21/24 16:47 Acetaminophen 325 Mg Tablet PO 05/21/24 16:46 Q6H PRN Fever >100 Albuterol/Ipratropium 3 ml 04/21/24 19:00 04/22/24 07:07 Albuterol/Ipratropium (Duoneb) Rt Viviana 3 Ml Nebu INH 05/21/24 18:59 3 ml Q6HRRT AMARJIT Administration Amiodarone HCl 200 mg 04/21/24 17:45 04/22/24 08:07 Amiodarone Hcl 200 Mg Tablet GT 05/21/24 17:44 200 mg QDAY AMARJIT Administration Apixaban 2.5 mg 04/21/24 21:00 04/22/24 08:08 Apixaban 2.5 Mg Tablet GT 05/21/24 20:59 2.5 mg BID AMARJIT Administration Dextrose 25 ml 04/21/24 17:34 Dextrose 50%-Water Inj 50 Ml Syringe IV 05/21/24 17:33 Q15MIN PRN BG 50-70 responsive npo pt Dextrose 50 ml 04/21/24 17:34 Dextrose 50%-Water Inj 50 Ml Syringe IV 05/21/24 17:33 Q15MIN PRN BG <50 OR BG <70 & pt unresponsive Glucagon 1 mg 04/21/24 17:34 Glucagon Inj 1 Mg Vial IM Q15MIN PRN BG <70, and no IV access Piperacillin/Tazobactam/Dextrose 3.375 gm in 50 mls @ 12.5 mls/hr 04/21/24 22:00 04/22/24 05:49 Zosyn IV 04/28/24 21:59 12.5 mls/hr Q8HR AMARJIT Administration Azithromycin 500 mg/ Sodium 250 mls @ 250 mls/hr 04/22/24 09:59 Chloride IV 04/29/24 09:58 QDAY AMARJIT Insulin Human Lispro 0 unit 04/21/24 21:00 04/22/24 08:07 Insulin Lispro (Admelog) 1 Unit/0.01 Ml Unit SC 05/21/24 20:59 1 unit ACHS AMARJIT Administration Protocol Lactulose 20 gm 04/21/24 21:00 04/22/24 08:07 Lactulose Syrup 20 Gm/30 Ml Udc GT 05/21/24 20:59 20 gm BID AMARJIT Administration Protocol Metoprolol Tartrate 25 mg 04/21/24 21:00 04/21/24 21:46 Metoprolol Tartrate 25 Mg Tablet GT 05/21/24 20:59 25 mg BID AMARJIT Administration Ondansetron HCl 4 mg 04/21/24 16:47 Ondansetron Inj 2 Mg/Ml Inj 2 Ml IV 05/21/24 16:46 Q6H PRN NAUSEA OR VOMITING Protocol Pantoprazole Sodium 40 mg 04/22/24 09:00 04/22/24 08:08 Pantoprazole Inj 40 Mg Vial IVP 05/22/24 08:59 40 mg QDAY AMARJIT Administration Pharmacy Consult 1 each 04/22/24 09:00 Vancomycin Pharmacy To Dose 1 Each Each IV 05/22/24 08:59 QDAY PRN PROTOCOL Sennosides 1 tab 04/21/24 17:51 Senna Tablet GT 05/21/24 17:50 QDAY PRN Constipation Protocol Plan 83-year-old nonverbal female with 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 Sepsis 2/2 Pneumonia, CAP vs Aspiration vs HAP Significant left lung fluid Acute on Chronic Respiratory Failure Medical history is unclear. Patient was recently accepted at subacute unit. She is chronically pegged and trached. Apparently she has been spiking fevers of 102 over the last few days. Met 3/4 SIRS criteria with fever, tachypnea and leukocytosis. CXR showed prominent left lung pneumonia, significant left lung fluid. Will follow-up with CT She received 1 dose CEFTRIAXONE in subacute. Gentle fluid resuscitation given concern for CHF. ? Continue DuoNebs and Azithromycin ? Continue ZOSYN (04/21 to present) ? Discontinue VANCOMYCIN (04/21 to present) ? Continue TYLENOL for fever ? Continued by flow ? Pending pancultures ? Pending CT chest to evaluate fluids HTN A-fib, likely paroxysmal HLD BP 136/66, HR 84, EKG shows sinus rhythm. Troponin normal. HASBLED 4 indicates high risk for major bleed. [id number] indicates 17% stroke/TIA/embolism. Will continue with home ELIQUIS based on clinical judgment and history of CVA. ? Continue home AMIODARONE 200 mg daily ? Continue home AMLODIPINE 10 mg daily ? Continue home ATORVASTATIN 80 mg HS ? Continue home ELIQUIS 2.5 mg BID Concern for new onset CHF exacerbation History of CHF per subacute. BNP 823. Coarse breath sounds on exam, unable to distinguish crackles. No lower extremity edema. No previous echo or BNP on record. CXR suggested CHF pattern. ? Holding home METOPROLOL 25 mg BID in settings of CHF exacerbation. ? Pending echocardiogram ? Pending TSH, lipid panel, - A1c- 6.4 T2DM, insulin-dependent Admission GLUCOSE 198. A1c pending ? INSULIN sliding scale ? Accu-Cheks Hx of seizure disorder Not on home ANTIEPILEPTICS. No signs of seizures. ? Seizure precaution Deep sacral ulcer ? Wound care ? ANTIBIOTICS as above Mild hyponatremia Likely malnutrition. Admission sodium 130. Anticipate correction with rehydration. ? Daily CMP Chronic constipation Likely secondary to CVA. Patient on chronic LAXATIVES. ? Continue LACTULOSE 20 mg BID ? Continue senna daily Chronic PEG tube PEG tube appears intact without signs of infection. ? Continue PEG tube feed ? Consult dietitian Hx of CVA History of large cerebral vessel occlusion. Chronically trached and pegged. Opens eyes spontaneously. Does not follow command. Health maintenance Diet: PEG tube GI prophylaxis: PROTONIX DVT prophylaxis: ELIQUIS CODE STATUS: DNR Disposition: Pending further workup Patient case was discussed with attending Dr Figueroa, Garry Keen MD,PGY-3 Attending Provider Attestation/Addendum I reviewed labs, imaging, EKG, home medications and prior available records. Face to face evaluation was performed by me. I have personally examined the patient and discussed assessment and plan with the IM team. I reviewed the resident note and agree with the plan with exceptions as below. Sepsis likely secondary to left-sided pneumonia Left pleural effusion Atrial fibrillation with controlled ventricular rhythm: History of CVA status post trach and PEG Possible CHF Changed to Zosyn and and azithromycin and discontinued vancomycin. Follow-up MRSA. Follow-up CT chest. If confirmed consult IR for pleurocentesis Continue amiodarone and apixaban Continue oxygen via tracheostomy and tube feeds via PEG tube Follow-up echocardiogram. Hold IV fluids.
[2024-04-22] MEDS: AZITHROMYCIN INJ 500 MG in SODIUM CHLORIDE 0.9% 250 ML 250 ML 250 MG IV (10:47)
--- NOTE | 2024-04-22 11:55 | PC.NURSE ---
Patient transported to CT via gurney per ITZ Sullivan and Idris RT. Patient awake and alert.
--- NOTE | 2024-04-22 12:24 | PC.NURSE ---
Patient returned from CT. No signs of acute distress.
[2024-04-22] MEDS: METOPROLOL TARTRATE 25 MG TABLET GT (20:52)
[2024-04-23] VITALS (19 sets, daily range): BP systolic 118–132; BP diastolic 52–79; PULSE 61–75; RESP 21–39; TEMP 35.7–36.4; O2SAT 95–100; BMI 13.9
[2024-04-23] MEDS: ALBUTEROL/IPRATROPIUM (Duoneb) RT SOL 3 ML NEBU INH ×4 (01:23→19:10)
[2024-04-23] MEDS: PIPER/TAZO 3.375 GM 3.375 GM/50 ML BAG IV ×3 (05:21→21:39)
[2024-04-23 06:27] LABS: Basophils % (Auto) 0 % (0-2.5); Eosinophils # (Auto) 0.1 Thou/mm3 (0.0-0.5); Eosinophils % (Auto) 1 % (0-10); Hematocrit 21.5 % (36.0-46.0); Immature Granulocytes % (Auto) 1 % (0-0); Immature Granulocytes Auto 0.06 Thou/mm3 (0.00-0.00); Lymphocytes # (Auto) 0.9 Thou/mm3 (1.0-4.8); Lymphocytes % (Auto) 9 % (10-50); Mean Corpuscular HGB Conc 32.1 g/dl (31.0-37.0); Mean Corpuscular Volume 90 fL (80-100); Monocytes # (Auto) 1.1 Thou/mm3 (0.0-0.8); Monocytes % (Auto) 10 % (0-12); Neutrophils # (Auto) 8.3 Thou/mm3 (1.8-7.7); Neutrophils % (Auto) 79 % (37-80); Nucleated Red Blood Cell % 0 /100 WBC (0); Platelet Count 391 Thou/mm3 (140-440); RDW Standard Deviation 48.8 fL (36.4-46.3); Red Blood Count 2.38 Miln/mm3 (4.00-5.20); White Blood Count 10.5 Thou/mm3 (3.6-11.0)
[2024-04-23 06:32] LABS: Hemoglobin 6.9 g/dL (12.0-16.0)
--- NOTE | 2024-04-23 06:35 | PC.NURSE ---
[address] Bolivar of pt Hgb of 6.9
[2024-04-23 07:00] LABS: Alanine Aminotransferase 46 U/L (10-49); Albumin, Serum 2.9 gm/dL (3.4-4.8); Albumin/Globulin Ratio 0.9 (1.2-2.2); Alkaline Phosphatase 66 U/L (46-116); Anion Gap 5 (7-16); Aspartate Amino Transferase 38 U/L (0-34); BUN/Creatinine Ratio 36 Ratio (12-20); Bilirubin,Total 0.3 mg/dL (0.3-1.2); Blood Urea Nitrogen 25 mg/dL (9-23); Calcium (Corrected) 8.9 mg/dL (8.5-10.1); Carbon Dioxide 27.2 mMol/L (20.0-31.0); Chloride 103 mMol/L (98-107); Creatinine (Component) 0.7 mg/dL (0.6-1.3); Estimated Creatinine Clearance 32.2 mL/min (>60); Globulin 3.1 gm/dL (2.3-3.5); Glucose 197 mg/dL (74-106); Osmolality,Calculated 279 (275-295); Phosphorous 3.7 mg/dL (2.4-5.1); Sodium 135 mMol/L (136-145); eGFR > 60 See Note
--- NOTE | 2024-04-23 07:48 | ESPR_ITS ---
Documentation for date of: 04/23/24 Subjective Subjective Interval history: No acute overnight events. Non-verbal. Open eyes spontaneously. Able to squeeze my hand when asked, but unsure if it's reflexive or truly following command. No apparent distress. Exam Vital Signs Temp Pulse Resp BP Pulse Ox O2 Del Method O2 Flow Rate 96.5 F L 75 23 H 118/52 L 99 Blow-by 9 04/23/24 07:44 04/23/24 07:44 04/23/24 07:44 04/23/24 07:44 04/23/24 07:44 04/23/24 07:44 04/23/24 07:44 FiO2 30 04/23/24 07:44 Narrative Exam GENERAL * Appears comfortable, nonfebrile, no apparent distress. HEENT * NCAT.?BLAISE. Oral mucosa is moist. Patent Nares NECK * Supple, nontender, no thyromegaly, no meningismus, no JVD, no step offs CHEST * RRR, unable to appreciate M/G/R secondary to coarse breath sounds * Severely coarse breath sounds bilaterally. No intercostal subcostal retraction * Atraumatic, nontender, no crepitus, symmetrical expansion. ABDOMEN * Soft, flat, nontender. No guarding/rebound tenderness/masses. * Bowel sounds presents EXTREMITIES * Nontender, no cyanosis, no edema * No edema/cyanosis.? SKIN * Warm and dry, no jaundice/rashes. NEUROMUSCULAR/PSYCH * Limited exam. Does not follow command. Opens eyes spontaneously. Objective Labs 04/24/24 05:40 04/24/24 05:40 Labs: Laboratory Results - last 24 hr 04/23/24 05:15 WBC 10.5 RBC 2.38 L Hgb 6.9 L* Hct 21.5 L* MCV 90 MCH 29.0 MCHC 32.1 RDW Std Deviation 48.8 H Plt Count 391 Neut % (Auto) 79 Lymph % (Auto) 9 L [place] % (Auto) 10 Eos % (Auto) 1 Baso % (Auto) 0 Neut # (Auto) 8.3 H Lymph # (Auto) 0.9 L [place] # (Auto) 1.1 H Eos # (Auto) 0.1 Baso # (Auto) 0.0 Immature Gran # (Auto) 0.06 H Absolute Nucleated RBC 0.00 Immature Gran % 1 H Nucleated RBC % 0 Sodium 135 L Potassium 4.0 Chloride 103 Carbon Dioxide 27.2 Anion Gap 5 L BUN 25 H Creatinine 0.7 Estim Creat Clear Calc 32.2 L eGFR > 60 BUN/Creatinine Ratio 36 H Glucose 197 H Calculated Osmolality 279 Calcium 8.0 L Corrected Calcium 8.9 Phosphorus 3.7 Magnesium 2.0 Total Bilirubin 0.3 AST 38 H ALT 46 Alkaline Phosphatase 66 Total Protein 6.0 Albumin 2.9 L Globulin 3.1 Albumin/Globulin Ratio 0.9 L ABG Interpretation ABG results: 04/21/24 07:50 VBG pH 7.51 VBG pCO2 36 VBG pO2 99 H VBG Base Excess 5 H Quality Measures Quality Measures none Advance care planning discussed with:: child Assessment & Plan Assessment Current Active Medications: Generic Name Dose Route Start Last Admin Trade Name Freq PRN Reason Stop Dose Admin Acetaminophen 650 mg 04/21/24 16:47 Acetaminophen 325 Mg Tablet PO 05/21/24 16:46 Q6H PRN PAIN SCALE 1-3 (mild Acetaminophen 650 mg 04/21/24 16:47 Acetaminophen 325 Mg Tablet PO 05/21/24 16:46 Q6H PRN Fever >100 Albuterol/Ipratropium 3 ml 04/21/24 19:00 04/23/24 06:21 Albuterol/Ipratropium (Duoneb) Rt Viviana 3 Ml Nebu INH 05/21/24 18:59 3 ml Q6HRRT AMARJIT Administration Amiodarone HCl 200 mg 04/21/24 17:45 04/22/24 08:07 Amiodarone Hcl 200 Mg Tablet GT 05/21/24 17:44 200 mg QDAY AMARJIT Administration Apixaban 2.5 mg 04/21/24 21:00 04/22/24 20:53 Apixaban 2.5 Mg Tablet GT 05/21/24 20:59 2.5 mg BID AMARJIT Administration Dextrose 25 ml 04/21/24 17:34 Dextrose 50%-Water Inj 50 Ml Syringe IV 05/21/24 17:33 Q15MIN PRN BG 50-70 responsive npo pt Dextrose 50 ml 04/21/24 17:34 Dextrose 50%-Water Inj 50 Ml Syringe IV 05/21/24 17:33 Q15MIN PRN BG <50 OR BG <70 & pt unresponsive Glucagon 1 mg 04/21/24 17:34 Glucagon Inj 1 Mg Vial IM Q15MIN PRN BG <70, and no IV access Piperacillin/Tazobactam/Dextrose 3.375 gm in 50 mls @ 12.5 mls/hr 04/21/24 22:00 04/23/24 05:21 Zosyn IV 04/28/24 21:59 12.5 mls/hr Q8HR AMARJIT Administration Azithromycin 500 mg/ Sodium 250 mls @ 250 mls/hr 04/22/24 09:59 04/22/24 10:47 Chloride IV 04/29/24 09:58 250 mls/hr QDAY AMARJIT Administration Insulin Human Lispro 0 unit 04/21/24 21:00 04/22/24 20:57 Insulin Lispro (Admelog) 1 Unit/0.01 Ml Unit SC 05/21/24 20:59 1 unit ACHS AMARJIT Administration Protocol Lactulose 20 gm 04/21/24 21:00 04/22/24 20:53 Lactulose Syrup 20 Gm/30 Ml Udc GT 05/21/24 20:59 20 gm BID AMARJIT Administration Protocol Lansoprazole 30 mg 04/23/24 09:00 Lansoprazole 30 Mg Tab.Rap. GT 05/22/24 08:59 QDAY AMARJIT Metoprolol Tartrate 25 mg 04/21/24 21:00 04/22/24 20:52 Metoprolol Tartrate 25 Mg Tablet GT 05/21/24 20:59 25 mg BID AMARJIT Administration Ondansetron HCl 4 mg 04/21/24 16:47 Ondansetron Inj 2 Mg/Ml Inj 2 Ml IV 05/21/24 16:46 Q6H PRN NAUSEA OR VOMITING Protocol Sennosides 1 tab 04/21/24 17:51 Senna Tablet GT 05/21/24 17:50 QDAY PRN Constipation Protocol Plan 83-year-old nonverbal female with 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 Spoke with son, Rashel, over the phone regarding goals of care. Informed about acute GI bleed anemia. Family does not want to proceed with colonoscopy or EGD at this time. They would like to proceed with blood transfusions and holding ELIQUIS and monitoring. I explained the risk of holding anticoagulations given the patient's history of CVA and A-fib, which are not limited to recurrent stroke. Family understands the risk and would like to proceed with holding ELIQUIS. Rashel said he might be able to come to the hospital today for in person goals of care discussions. Additionally, we discussed thoracentesis, patient wants to proceed with therapeutic thora for now, opted no for cytology and fluid analysis. Vitals okay, blow-by Hgb 6.9 transfuse 1 unit, platelets okay CMP okay NO growth on Cx Sepsis 2/2 Pneumonia, CAP vs Aspiration vs HAP Significant left lung fluid Acute on Chronic Respiratory Failure Medical history is unclear. Patient was recently accepted at subacute unit. She is chronically pegged and trached. Apparently she has been spiking fevers of 102 over the last few days. Met 3/4 SIRS criteria with fever, tachypnea and leukocytosis. CXR showed prominent left lung pneumonia, significant left lung fluid. Will follow-up with CT She received 1 dose CEFTRIAXONE in subacute. Gentle fluid resuscitation given concern for CHF. MRSA screen negative, discontinue VANCOMYCIN. CT Large left moderate right pleural effusions ? Continue DuoNebs ? Continue ZOSYN (04/21 to present) ? Continue AZITHROMYCIN (04/22 to present) ? Continue TYLENOL for fever ? Continue by flow ? Pending therapeutic thoracentesis (no fluid analysis) ? Pending pancultures Acute blood loss anemia Hgb 6.9 this morning. Positive FOBT. Family refused endoscopy as explained above. ? Transfuse 1 unit PRBCs ? HOLDING ELIQUIS ? Posttransfusion H&H ? Transfuse if Hgb <7 HTN A-fib, likely paroxysmal HLD BP 136/66, HR 84, EKG shows sinus rhythm. Troponin normal. HASBLED 4 indicates high risk for major bleed. [id number] indicates 17% stroke/TIA/embolism. Will continue with home ELIQUIS based on clinical judgment and history of CVA. ? Continue home AMIODARONE 200 mg daily ? Continue home AMLODIPINE 10 mg daily ? Continue home ATORVASTATIN 80 mg HS ? HOLD home ELIQUIS 2.5 mg BID 2/2 GI bleed Concern for new onset CHF exacerbation History of CHF per subacute. BNP 823. Coarse breath sounds on exam, unable to distinguish crackles. No lower extremity edema. No previous echo or BNP on record. CXR suggested CHF pattern. TSH 0.14, free T4 2.01, TG 75, cholesterol 85, LDL 39, A1c 6.4 ? Continue home METOPROLOL 25 mg BID in settings of CHF exacerbation. ? Pending echocardiogram T2DM, insulin-dependent Admission GLUCOSE 198. A1c 6.4. GLUCOSE control. ? INSULIN sliding scale ? Accu-Cheks Hx of seizure disorder Not on home ANTIEPILEPTICS. No signs of seizures. ? Seizure precaution Deep sacral ulcer ? Wound care ? ANTIBIOTICS as above Mild hyponatremia Likely malnutrition. Admission sodium 130. Anticipate correction with rehydration. ? Daily CMP Chronic constipation Likely secondary to CVA. Patient on chronic LAXATIVES. ? Continue LACTULOSE 20 mg BID ? Continue senna daily Chronic PEG tube PEG tube appears intact without signs of infection. ? Continue PEG tube feed ? Dietitian consulted ? Restarted tube feed ? Monitor for refeeding syndrome Hx of CVA History of large cerebral vessel occlusion. Chronically trached and pegged. Opens eyes spontaneously. Does not follow command. Mild hyperthyroidism TSH 0.14, free T4 2.01 ? Recommended outpatient follow-up Health maintenance Diet: PEG tube GI prophylaxis: PROTONIX DVT prophylaxis: HOLD ELIQUIS (GI bleed) CODE STATUS: DNR Disposition: Pending further workup Patient case was discussed with attending, Oliver Figueroa MD and senior resident Dr. Keen. Ed Solorio DO PGYI Attending Provider Attestation/Addendum I reviewed labs, imaging, EKG, home medications and prior available records. Face to face evaluation was performed by me. I have personally examined the patient and discussed assessment and plan with the IM team. I reviewed the resident note and agree with the plan with exceptions as below. Sepsis likely secondary to left-sided pneumonia Left pleural effusion Atrial fibrillation with controlled ventricular rhythm: History of CVA status post trach and PEG Possible CHF Acute anemia Changed to Zosyn and and azithromycin and discontinued vancomycin. Follow-up MRSA. Follow-up CT chest: Showed large right-sided effusion. Consulted IR for pleurocentesis Continue amiodarone. Held Eliquis in the setting of acute anemia Hemoglobin was 6.9. FOBT is positive. Ordered 1 PRBC. Stopped Eliquis. Monitor H&H posttransfusion Continue oxygen via tracheostomy and tube feeds via PEG tube Follow-up echocardiogram. Hold IV fluids.
[2024-04-23] MEDS: INSULIN LISPRO (AdmeLOG) 1 UNIT/0.01 ML UNIT SC ×3 (07:57→17:20)
[2024-04-23] MEDS: AMIODARONE HCL 200 MG TABLET GT (08:02)
[2024-04-23] MEDS: METOPROLOL TARTRATE 25 MG TABLET GT ×2 (08:03→21:38)
[2024-04-23] MEDS: LANSOPRAZOLE 30 MG TAB.RAP.DR GT (08:03)
[2024-04-23] MEDS: AZITHROMYCIN INJ 500 MG in SODIUM CHLORIDE 0.9% 250 ML 250 ML 250 MG IV (09:01)
[2024-04-23 09:07] LABS: Hematocrit 21.2 % (36.0-46.0)
[2024-04-23 09:32] LABS: Hemoglobin 6.9 g/dL (12.0-16.0)
--- NOTE | 2024-04-23 10:57 | PC.DIETICIAN ---
Nutrition prescription Glucerna 1.2 at 30 ml/hr via PEG tube by pump. Advance 10 ml every 8 hrs to goal rate of 50 ml/hr x 24 hrs. If no IV fluids, water flushes of 25 ml/hr (or per MD).
--- NOTE | 2024-04-23 14:27 | PC.SS ---
Rounding Note: Plan is to provide patient with blood transfusion. Goals of care discussion planned for tomorrow.
[2024-04-23 16:18] LABS: Hematocrit 26.9 % (36.0-46.0); Hemoglobin 9.1 g/dL (12.0-16.0)
[2024-04-24] VITALS (12 sets, daily range): BP systolic 125–142; BP diastolic 64–84; PULSE 58–73; RESP 21–96; TEMP 35.9–36.4; O2SAT 92–100
[2024-04-24] MEDS: INSULIN LISPRO (AdmeLOG) 1 UNIT/0.01 ML UNIT SC ×3 (00:48→23:50)
[2024-04-24] MEDS: PIPER/TAZO 3.375 GM 3.375 GM/50 ML BAG IV ×3 (05:40→21:13)
[2024-04-24] MEDS: ALBUTEROL/IPRATROPIUM (Duoneb) RT SOL 3 ML NEBU INH ×3 (06:38→18:50)
[2024-04-24 06:39] LABS: Basophils % (Auto) 0 % (0-2.5); Eosinophils # (Auto) 0.1 Thou/mm3 (0.0-0.5); Eosinophils % (Auto) 1 % (0-10); Hematocrit 28.2 % (36.0-46.0); Hemoglobin 9.3 g/dL (12.0-16.0); Immature Granulocytes % (Auto) 1 % (0-0); Immature Granulocytes Auto 0.06 Thou/mm3 (0.00-0.00); Lymphocytes % (Auto) 10 % (10-50); Mean Corpuscular Hemoglobin 29.2 pg (25.0-35.0); Mean Corpuscular Volume 88 fL (80-100); Monocytes # (Auto) 0.9 Thou/mm3 (0.0-0.8); Monocytes % (Auto) 9 % (0-12); Neutrophils # (Auto) 8.1 Thou/mm3 (1.8-7.7); Neutrophils % (Auto) 79 % (37-80); Nucleated Red Blood Cell % 0 /100 WBC (0); Platelet Count 404 Thou/mm3 (140-440); RDW Standard Deviation 47.3 fL (36.4-46.3); Red Blood Count 3.19 Miln/mm3 (4.00-5.20); White Blood Count 10.2 Thou/mm3 (3.6-11.0)
[2024-04-24 07:08] LABS: Alanine Aminotransferase 60 U/L (10-49); Alkaline Phosphatase 75 U/L (46-116); Anion Gap 8 (7-16); Aspartate Amino Transferase 55 U/L (0-34); BUN/Creatinine Ratio 30 Ratio (12-20); Bilirubin,Total 0.4 mg/dL (0.3-1.2); Blood Urea Nitrogen 21 mg/dL (9-23); Calcium 8.1 mg/dL (8.3-10.6); Calcium (Corrected) 8.9 mg/dL (8.5-10.1); Carbon Dioxide 25.9 mMol/L (20.0-31.0); Chloride 101 mMol/L (98-107); Creatinine (Component) 0.7 mg/dL (0.6-1.3); Estimated Creatinine Clearance 32.2 mL/min (>60); Glucose 193 mg/dL (74-106); Osmolality,Calculated 278 (275-295); Phosphorous 3.3 mg/dL (2.4-5.1); Potassium 4.5 mMol/L (3.4-5.1); Sodium 135 mMol/L (136-145); eGFR > 60 See Note
--- NOTE | 2024-04-24 07:38 | ESPR_ITS ---
<Statement entered by Garry Keen MD - 04/24/24 14:44> Pending therapeutic paracentesis, family denied any for the studies of the fluid. Her hemoglobin today is 9 after 1 unit of PRBC. Family does not want to do GI workup . I discussed with and supervised my co-resident involved in the care of this patient. I agree with the assessment and plan as documented above. Garry Keen,PGY-[id number] Disclaimer: Despite multiple revisions, due to the dictation software being used, the document below may not be free of grammatical errors including phonetic/typographic errors. However, this does not deter from our commitment to providing health care in the patient's best interest in mind. Documentation for date of: 04/24/24 Subjective Subjective Interval history: No acute overnight events. Alert, and appears comfortable. No signs of agitations. Opening eyes continuously, but tracks movements. Exam Vital Signs Temp Pulse Resp BP Pulse Ox O2 Del Method O2 Flow Rate 97.5 F 61 23 H 129/64 99 Blow-by 8 04/24/24 00:00 04/24/24 00:52 04/24/24 00:52 04/24/24 00:00 04/24/24 00:52 04/24/24 00:00 04/24/24 00:52 FiO2 30 04/24/24 00:52 Narrative Exam GENERAL * Appears comfortable, nonfebrile, no apparent distress. HEENT * NCAT.?BLAISE. Oral mucosa is moist. Patent Nares NECK * Supple, nontender, no thyromegaly, no meningismus, no JVD, no step offs CHEST * RRR, unable to appreciate M/G/R secondary to coarse breath sounds * Severely coarse breath sounds bilaterally. No intercostal subcostal retraction * Atraumatic, nontender, no crepitus, symmetrical expansion. ABDOMEN * Soft, flat, nontender. No guarding/rebound tenderness/masses. * Bowel sounds presents EXTREMITIES * Nontender, no cyanosis, no edema * No edema/cyanosis.? SKIN * Warm and dry, no jaundice/rashes. NEUROMUSCULAR/PSYCH * Limited exam. Does not follow command. Opens eyes spontaneously. Objective Labs 04/24/24 05:40 04/24/24 05:40 Labs: Laboratory Results - last 24 hr 04/23/24 04/23/2404/24/25 08:18 15:51 05:40 WBC 10.2 RBC 3.19 L Hgb 6.9 L* 9.1 L D 9.3 L Hct 21.2 L* 26.9 L 28.2 L MCV 88 MCH 29.2 MCHC 33.0 RDW Std Deviation 47.3 H Plt Count 404 Neut % (Auto) 79 Lymph % (Auto) 10 [place] % (Auto) 9 Eos % (Auto) 1 Baso % (Auto) 0 Neut # (Auto) 8.1 H Lymph # (Auto) 1.0 [place] # (Auto) 0.9 H Eos # (Auto) 0.1 Baso # (Auto) 0.0 Immature Gran # (Auto) 0.06 H Absolute Nucleated RBC 0.00 Immature Gran % 1 H Nucleated RBC % 0 Sodium 135 L Potassium 4.5 D Chloride 101 Carbon Dioxide 25.9 Anion Gap 8 BUN 21 Creatinine 0.7 Estim Creat Clear Calc 32.2 L eGFR > 60 BUN/Creatinine Ratio 30 H Glucose 193 H Calculated Osmolality 278 Calcium 8.1 L Corrected Calcium 8.9 Phosphorus 3.3 Magnesium 2.0 Total Bilirubin 0.4 AST 55 H ALT 60 H Alkaline Phosphatase 75 Total Protein 6.0 Albumin 3.0 L Globulin 3.0 Albumin/Globulin Ratio 1.0 L Blood Type A Positive Antibody Screen NEGATIVE Crossmatch See Detail Blood Bank Wristband ID Yes ABG Interpretation ABG results: 04/21/24 07:50 VBG pH 7.51 VBG pCO2 36 VBG pO2 99 H VBG Base Excess 5 H Quality Measures Quality Measures none Advance care planning discussed with:: child Assessment & Plan Assessment Current Active Medications: Generic Name Dose Route Start Last Admin Trade Name Freq PRN Reason Stop Dose Admin Acetaminophen 650 mg 04/21/24 16:47 Acetaminophen 325 Mg Tablet PO 05/21/24 16:46 Q6H PRN PAIN SCALE 1-3 (mild Acetaminophen 650 mg 04/21/24 16:47 Acetaminophen 325 Mg Tablet PO 05/21/24 16:46 Q6H PRN Fever >100 Albuterol/Ipratropium 3 ml 04/21/24 19:00 04/23/24 19:10 Albuterol/Ipratropium (Duoneb) Rt Viviana 3 Ml Nebu INH 05/21/24 18:59 3 ml Q6HRRT AMARJIT Administration Amiodarone HCl 200 mg 04/21/24 17:45 04/23/24 08:02 Amiodarone Hcl 200 Mg Tablet GT 05/21/24 17:44 200 mg QDAY AMARJIT Administration Apixaban 2.5 mg 04/21/24 21:00 04/23/24 08:03 Apixaban 2.5 Mg Tablet GT 05/21/24 20:59 Not Given BID AMARJIT Azithromycin 500 mg 04/24/24 09:00 Azithromycin 250 Mg Tablet PO 04/29/24 09:58 QDAY AMARJIT Dextrose 25 ml 04/21/24 17:34 Dextrose 50%-Water Inj 50 Ml Syringe IV 05/21/24 17:33 Q15MIN PRN BG 50-70 responsive npo pt Dextrose 50 ml 04/21/24 17:34 Dextrose 50%-Water Inj 50 Ml Syringe IV 05/21/24 17:33 Q15MIN PRN BG <50 OR BG <70 & pt unresponsive Glucagon 1 mg 04/21/24 17:34 Glucagon Inj 1 Mg Vial IM Q15MIN PRN BG <70, and no IV access Piperacillin/Tazobactam/Dextrose 3.375 gm in 50 mls @ 12.5 mls/hr 04/21/24 22:00 04/23/24 21:39 Zosyn IV 04/28/24 21:59 12.5 mls/hr Q8HR AMARJIT Administration Insulin Human Lispro 0 unit 04/23/24 12:00 04/24/24 00:48 Insulin Lispro (Admelog) 1 Unit/0.01 Ml Unit SC 05/23/24 11:59 1 unit Q6HR AMARJIT Administration Protocol Lactulose 20 gm 04/21/24 21:00 04/23/24 21:40 Lactulose Syrup 20 Gm/30 Ml Udc GT 05/21/24 20:59 Not Given BID AMARJIT Protocol Lansoprazole 30 mg 04/23/24 09:00 04/23/24 08:03 Lansoprazole 30 Mg Tab. 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 Spoke with son, Rashel, over the phone regarding goals of care. Informed about acute GI bleed anemia. Family does not want to proceed with colonoscopy or EGD at this time. They would like to proceed with blood transfusions and holding ELIQUIS and monitoring. I explained the risk of holding anticoagulations given the patient's history of CVA and A-fib, which are not limited to recurrent stroke. Family understands the risk and would like to proceed with holding ELIQUIS. Rashel said he might be able to come to the hospital today for in person goals of care discussions. Additionally, we discussed thoracentesis, patient wants to proceed with therapeutic thora for now, opted no for cytology and fluid analysis. Disposition: Pending therapeutic thoracentesis, final ET culture. Sepsis 2/2 Pneumonia, CAP vs Aspiration vs HAP Significant left lung fluid Acute on Chronic Respiratory Failure Medical history is unclear. Patient was recently accepted at subacute unit. She is chronically pegged and trached. Apparently she has been spiking fevers of 102 over the last few days. Met 3/4 SIRS criteria with fever, tachypnea and leukocytosis. CXR showed prominent left lung pneumonia, significant left lung fluid. Will follow-up with CT CT Large left moderate right pleural effusions 48H blood culture negative. ET secretion grew yeast. Pending confirmation. Patient overall improving. ? Continue DuoNebs ? Continue ZOSYN (04/21 to present) ? Continue AZITHROMYCIN (04/22 to present) ? Continue TYLENOL for fever ? Continue by flow ? Pending therapeutic thoracentesis (no fluid analysis) ? Pending final ET culture Acute blood loss anemia Hgb 6.9 this morning. Positive FOBT. Family refused endoscopy as explained above. ? Transfuse 1 unit PRBCs ? HOLDING ELIQUIS ? Posttransfusion H&H ? Transfuse if Hgb <7 Mild transaminitis Likely ischemic hepatopathy secondary to blood loss. S/p transfusions, anticipate improvement. ? Daily CMP HTN A-fib, likely paroxysmal HLD BP 136/66, HR 84, EKG shows sinus rhythm. Troponin normal. HASBLED 4 indicates high risk for major bleed. [id number] indicates 17% stroke/TIA/embolism. Will continue with home ELIQUIS based on clinical judgment and history of CVA. ? Continue home AMIODARONE 200 mg daily ? Continue home AMLODIPINE 10 mg daily ? Continue home ATORVASTATIN 80 mg HS ? HOLD home ELIQUIS 2.5 mg BID 2/2 GI bleed Concern for new onset CHF exacerbation History of CHF per subacute. BNP 823. Coarse breath sounds on exam, unable to distinguish crackles. No lower extremity edema. No previous echo or BNP on record. CXR suggested CHF pattern. TSH 0.14, free T4 2.01, TG 75, cholesterol 85, LDL 39, A1c 6.4 ? Continue home METOPROLOL 25 mg BID in settings of CHF exacerbation. ? Pending echocardiogram T2DM, insulin-dependent Admission GLUCOSE 198. A1c 6.4. GLUCOSE control. ? INSULIN sliding scale ? Accu-Cheks Hx of seizure disorder Not on home ANTIEPILEPTICS. No signs of seizures. ? Seizure precaution Deep sacral ulcer ? Wound care ? ANTIBIOTICS as above Mild hyponatremia Likely malnutrition. Admission sodium 130. Anticipate correction with rehydration. ? Daily CMP Chronic constipation Likely secondary to CVA. Patient on chronic LAXATIVES. ? Continue LACTULOSE 20 mg BID ? Continue senna daily Chronic PEG tube PEG tube appears intact without signs of infection. ? Continue PEG tube feed ? Dietitian consulted ? Restarted tube feed ? Monitor for refeeding syndrome * Glucerna 1.2 at 30 ml/hr via PEG tube by pump. * Advance 10 ml every 8 hrs to goal rate of 50 ml/hr x 24 hrs. * If no IV fluids, water flushes of 25 ml/hr (or per MD). Hx of CVA History of large cerebral vessel occlusion. Chronically trached and pegged. Opens eyes spontaneously. Does not follow command. Mild hyperthyroidism TSH 0.14, free T4 2.01 ? Recommended outpatient follow-up Health maintenance Diet: PEG tube GI prophylaxis: PROTONIX DVT prophylaxis: HOLD ELIQUIS (GI bleed) CODE STATUS: DNR Disposition: Pending thoracentesis and final ET culture Patient case was discussed with attending, Oliver Figueroa MD and senior residents Dr. Keen and Dr. Andres. Ed Solorio DO PGYI Attending Provider Attestation/Addendum I reviewed labs, imaging, EKG, home medications and prior available records. Face to face evaluation was performed by me. I have personally examined the patient and discussed assessment and plan with the IM team. I reviewed the resident note and agree with the plan with exceptions as below. Sepsis likely secondary to left-sided pneumonia Left pleural effusion Atrial fibrillation with controlled ventricular rhythm: History of CVA status post trach and PEG Possible CHF Acute anemia Changed to Zosyn and and azithromycin and discontinued vancomycin. Follow-up MRSA: Negative Follow-up CT chest: Showed large right-sided effusion. Consulted IR for pleurocentesis Continue amiodarone. Held Eliquis in the setting of acute anemia Hemoglobin improved to 9.3 after 1 PRBC transfusion. Stopped Eliquis. Monitor H&H posttransfusion Continue oxygen via tracheostomy and tube feeds via PEG tube Follow-up echocardiogram. Hold IV fluids.
--- NOTE | 2024-04-24 09:21 | PC.NURSE ---
[facility] downtime occurred on 04-24-24 from 0100 to 0700
[2024-04-24] MEDS: AMIODARONE HCL 200 MG TABLET GT (09:44)
[2024-04-24] MEDS: AZITHROMYCIN 250 MG TABLET 500 MG PO (09:44)
[2024-04-24] MEDS: LANSOPRAZOLE 30 MG TAB.RAP.DR GT (09:44)
[2024-04-24] MEDS: METOPROLOL TARTRATE 25 MG TABLET GT ×2 (09:45→21:13)
[2024-04-25] VITALS (12 sets, daily range): BP systolic 136–152; BP diastolic 62–73; PULSE 61–82; RESP 18–28; TEMP 36.2–36.7; O2SAT 95–100; BMI 14.0
[2024-04-25] MEDS: ALBUTEROL/IPRATROPIUM (Duoneb) RT SOL 3 ML NEBU INH ×4 (01:40→18:30)
[2024-04-25] MEDS: PIPER/TAZO 3.375 GM 3.375 GM/50 ML BAG IV ×3 (05:49→20:54)
[2024-04-25] MEDS: INSULIN LISPRO (AdmeLOG) 1 UNIT/0.01 ML UNIT SC ×3 (05:51→18:01)
[2024-04-25 06:57] LABS: Basophils % (Auto) 0 % (0-2.5); Eosinophils # (Auto) 0.1 Thou/mm3 (0.0-0.5); Eosinophils % (Auto) 1 % (0-10); Hematocrit 29.1 % (36.0-46.0); Hemoglobin 9.7 g/dL (12.0-16.0); Immature Granulocytes % (Auto) 1 % (0-0); Immature Granulocytes Auto 0.09 Thou/mm3 (0.00-0.00); Lymphocytes # (Auto) 1.1 Thou/mm3 (1.0-4.8); Lymphocytes % (Auto) 8 % (10-50); Mean Corpuscular HGB Conc 33.3 g/dl (31.0-37.0); Mean Corpuscular Hemoglobin 29.2 pg (25.0-35.0); Mean Corpuscular Volume 88 fL (80-100); Monocytes # (Auto) 0.9 Thou/mm3 (0.0-0.8); Monocytes % (Auto) 6 % (0-12); Neutrophils # (Auto) 11.4 Thou/mm3 (1.8-7.7); Neutrophils % (Auto) 84 % (37-80); Nucleated Red Blood Cell % 0 /100 WBC (0); Platelet Count 429 Thou/mm3 (140-440); RDW Standard Deviation 47.8 fL (36.4-46.3); Red Blood Count 3.32 Miln/mm3 (4.00-5.20); White Blood Count 13.6 Thou/mm3 (3.6-11.0)
[2024-04-25 07:19] LABS: Alanine Aminotransferase 57 U/L (10-49); Albumin, Serum 3.1 gm/dL (3.4-4.8); Alkaline Phosphatase 78 U/L (46-116); Anion Gap 10 (7-16); Aspartate Amino Transferase 41 U/L (0-34); BUN/Creatinine Ratio 30 Ratio (12-20); Bilirubin,Total 0.5 mg/dL (0.3-1.2); Blood Urea Nitrogen 18 mg/dL (9-23); Calcium 8.3 mg/dL (8.3-10.6); Carbon Dioxide 24.9 mMol/L (20.0-31.0); Chloride 99 mMol/L (98-107); Creatinine (Component) 0.6 mg/dL (0.6-1.3); Estimated Creatinine Clearance 37.7 mL/min (>60); Glucose 181 mg/dL (74-106); Osmolality,Calculated 275 (275-295); Phosphorous 3.5 mg/dL (2.4-5.1); Potassium 4.1 mMol/L (3.4-5.1); Sodium 134 mMol/L (136-145); Total Protein 6.1 gm/dL (5.7-8.2); eGFR > 60 See Note
[2024-04-25] MEDS: LANSOPRAZOLE 30 MG TAB.RAP.DR GT (10:10)
[2024-04-25] MEDS: LACTULOSE SYRUP 20 GM/30 ML UDC GT ×2 (10:10→20:54)
[2024-04-25] MEDS: METOPROLOL TARTRATE 25 MG TABLET GT ×2 (10:10→20:54)
[2024-04-25] MEDS: AMIODARONE HCL 200 MG TABLET GT (10:10)
[2024-04-25] MEDS: AZITHROMYCIN 250 MG TABLET 500 MG PO (10:11)
[2024-04-25] MEDS: COLLAGENASE OINT 30 GM TUBE TOP (10:14)
--- NOTE | 2024-04-25 11:00 | XR_ITS ---
Examination: Ultrasound-guided left thoracentesis Ultrasound right hemithorax Ultrasound left hemithorax Exam date and time: April 25, 2024 11:48 AM INDICATIONS: Difficulty breathing this week, large pleural effusions on CT chest study April 22, 2024 FINDINGS: Grayscale sonographic images right and left hemithoraces demonstrate large bilateral pleural effusions Informed consent provided. Timeout performed. Skin prepped over the left hemithorax and sterile drape applied hand hygiene ultrasound sterile technique 1% lidocaine administered for local anesthesia Utilizing ultrasonographic guidance successful placement 5 [place]i catheter in the left pleural space 1200 cc pleural fluid removed Estimated blood loss 0 cc IMPRESSION: Successful ultrasound-guided left thoracentesis, 1200 cc pleural fluid removed
--- NOTE | 2024-04-25 13:05 | XR_ITS ---
Examination: AP chest single view Technique one AP portable semiupright chest single view Exam date and time: April 25, 2024 1335 hours INDICATIONS: Postthoracentesis today. FINDINGS: Significant decrease in left pleural fluid compared with April 13, 2024 Masslike area in the left upper lobe is noted on this study, 21 mm, recommend repeating the CT chest at this time as there is no fluid in the left hemithorax on the current study Significant vascular congestion Tracheostomy tube tip 6.2 cm above segundo IMPRESSION: Recommend repeat CT chest without contrast follow-up to confirm 21 mm pulmonary mass left upper lobe
--- NOTE | 2024-04-25 14:20 | ESPR_ITS ---
Documentation for date of: 04/25/24 Subjective Subjective Interval history: No acute overnight events. Again she is looking better, more alert, tracing object. Still does not follow command. Likely she is at baseline. Exam Vital Signs Temp Pulse Resp BP Pulse Ox O2 Del Method O2 Flow Rate 97.5 F 77 20 152/70 H 100 Trach Collar 8 04/25/24 08:00 04/25/24 12:09 04/25/24 12:09 04/25/24 10:10 04/25/24 12:09 04/25/24 08:00 04/25/24 12:09 FiO2 30 04/25/24 12:09 Narrative Exam GENERAL * Appears comfortable, nonfebrile, no apparent distress. HEENT * NCAT.?BLAISE. Oral mucosa is moist. Patent Nares NECK * Supple, nontender, no thyromegaly, no meningismus, no JVD, no step offs CHEST * RRR, unable to appreciate M/G/R secondary to coarse breath sounds * Severely coarse breath sounds bilaterally. No intercostal subcostal retraction * Atraumatic, nontender, no crepitus, symmetrical expansion. ABDOMEN * Soft, flat, nontender. No guarding/rebound tenderness/masses. * Bowel sounds presents EXTREMITIES * Nontender, no cyanosis, no edema * No edema/cyanosis.? SKIN * Warm and dry, no jaundice/rashes. NEUROMUSCULAR/PSYCH * Limited exam. Does not follow command. Opens eyes spontaneously. Objective Labs 04/25/24 06:08 04/25/24 06:08 Labs: Laboratory Results - last 24 hr 04/25/24 06:08 WBC 13.6 H RBC 3.32 L Hgb 9.7 L Hct 29.1 L MCV 88 MCH 29.2 MCHC 33.3 RDW Std Deviation 47.8 H Plt Count 429 Neut % (Auto) 84 H Lymph % (Auto) 8 L [place]verse % (Auto) 6 Eos % (Auto) 1 Baso % (Auto) 0 Neut # (Auto) 11.4 H Lymph # (Auto) 1.1 [place] # (Auto) 0.9 H Eos # (Auto) 0.1 Baso # (Auto) 0.0 Immature Gran # (Auto) 0.09 H Absolute Nucleated RBC 0.00 Immature Gran % 1 H Nucleated RBC % 0 Sodium 134 L Potassium 4.1 Chloride 99 Carbon Dioxide 24.9 Anion Gap 10 BUN 18 Creatinine 0.6 Estim Creat Clear Calc 37.7 L eGFR > 60 BUN/Creatinine Ratio 30 H Glucose 181 H Calculated Osmolality 275 Calcium 8.3 Corrected Calcium 9.0 Phosphorus 3.5 Magnesium 2.0 Total Bilirubin 0.5 AST 41 H ALT 57 H Alkaline Phosphatase 78 Total Protein 6.1 Albumin 3.1 L Globulin 3.0 Albumin/Globulin Ratio 1.0 L ABG Interpretation ABG results: 04/21/24 07:50 VBG pH 7.51 VBG pCO2 36 VBG pO2 99 H VBG Base Excess 5 H Quality Measures Quality Measures none Advance care planning discussed with:: child Assessment & Plan Assessment Current Active Medications: Generic Name Dose Route Start Last Admin Trade Name Freq PRN Reason Stop Dose Admin Acetaminophen 650 mg 04/21/24 16:47 Acetaminophen 325 Mg Tablet PO 05/21/24 16:46 Q6H PRN PAIN SCALE 1-3 (mild Acetaminophen 650 mg 04/21/24 16:47 Acetaminophen 325 Mg Tablet PO 05/21/24 16:46 Q6H PRN Fever >100 Albuterol/Ipratropium 3 ml 04/21/24 19:00 04/25/24 12:08 Albuterol/Ipratropium (Duoneb) Rt Viviana 3 Ml Nebu INH 05/21/24 18:59 3 ml Q6HRRT AMARJIT Administration Amiodarone HCl 200 mg 04/21/24 17:45 04/25/24 10:10 Amiodarone Hcl 200 Mg Tablet GT 05/21/24 17:44 200 mg QDAY AMARJIT Administration Apixaban 2.5 mg 04/21/24 21:00 04/23/24 08:03 Apixaban 2.5 Mg Tablet GT 05/21/24 20:59 Not Given BID AMARJIT Azithromycin 500 mg 04/24/24 09:00 04/25/24 10:11 Azithromycin 250 Mg Tablet PO 04/29/24 09:58 500 mg QDAY AMARJIT Administration Collagenase 0 gm 04/25/24 09:00 04/25/24 10:14 Collagenase Oint 30 Gm Tube TOP 05/25/24 08:59 1 applicatio QDAY AMARJIT Administration Dextrose 25 ml 04/21/24 17:34 Dextrose 50%-Water Inj 50 Ml Syringe IV 05/21/24 17:33 Q15MIN PRN BG 50-70 responsive npo pt Dextrose 50 ml 04/21/24 17:34 Dextrose 50%-Water Inj 50 Ml Syringe IV 05/21/24 17:33 Q15MIN PRN BG <50 OR BG <70 & pt unresponsive Glucagon 1 mg 04/21/24 17:34 Glucagon Inj 1 Mg Vial IM Q15MIN PRN BG <70, and no IV access Piperacillin/Tazobactam/Dextrose 3.375 gm in 50 mls @ 12.5 mls/hr 04/21/24 22:00 04/25/24 05:49 Zosyn IV 04/28/24 21:59 12.5 mls/hr Q8HR AMARJIT Administration Insulin Human Lispro 0 unit 04/23/24 12:00 04/25/24 05:55 Insulin Lispro (Admelog) 1 Unit/0.01 Ml Unit SC 05/23/24 11:59 Not Given Q6HR AMARJIT Protocol Lactulose 20 gm 04/21/24 21:00 04/25/24 10:10 Lactulose Syrup 20 Gm/30 Ml Udc GT 05/21/24 20:59 20 gm BID AMARJIT Administration Protocol Lansoprazole 30 mg 04/23/24 09:00 04/25/24 10:10 Lansoprazole 30 Mg Tab. 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 Spoke with son, Rashel, over the phone regarding goals of care. Informed about acute GI bleed anemia. Family does not want to proceed with colonoscopy or EGD at this time. They would like to proceed with blood transfusions and holding ELIQUIS and monitoring. I explained the risk of holding anticoagulations given the patient's history of CVA and A-fib, which are not limited to recurrent stroke. Family understands the risk and would like to proceed with holding ELIQUIS. Rashel said he might be able to come to the hospital today for in person goals of care discussions. Additionally, we discussed thoracentesis, patient wants to proceed with therapeutic thora for now, opted no for cytology and fluid analysis. Completed successful US guided thoracentesis with 1200 cc pleural fluid removed. Patient stable to be discharged home. Sepsis 2/2 Pneumonia, CAP vs Aspiration vs HAP Significant left lung fluid Acute on Chronic Respiratory Failure Medical history is unclear. Patient was recently accepted at subacute unit. She is chronically pegged and trached. Apparently she has been spiking fevers of 102 over the last few days. Met 3/4 SIRS criteria with fever, tachypnea and leukocytosis. CXR showed prominent left lung pneumonia, significant left lung fluid. Will follow-up with CT CT Large left moderate right pleural effusions 48H blood culture negative. ET secretion grew yeast, likely contaminant. Symptoms overall improved following thoracentesis. ? Continue DuoNebs ? Continue ZOSYN (04/21 to present) ? Continue AZITHROMYCIN (04/22 to present) ? Continue TYLENOL for fever ? Continue by flow Acute blood loss anemia Hgb 6.9 this morning. Positive FOBT. Family refused endoscopy as explained above. ? Transfuse 1 unit PRBCs ? HOLDING ELIQUIS ? Posttransfusion H&H ? Transfuse if Hgb <7 ? Recommended repeat CBC in 1 week Mild transaminitis Likely ischemic hepatopathy secondary to blood loss. S/p transfusions, anticipate improvement. ? Daily CMP HTN A-fib, likely paroxysmal HLD BP 136/66, HR 84, EKG shows sinus rhythm. Troponin normal. HASBLED 4 indicates high risk for major bleed. [id number] indicates 17% stroke/TIA/embolism. Will continue with home ELIQUIS based on clinical judgment and history of CVA. ? Continue home AMIODARONE 200 mg daily ? Continue home AMLODIPINE 10 mg daily ? Continue home ATORVASTATIN 80 mg HS ? HOLD home ELIQUIS 2.5 mg BID 2/2 GI bleed Concern for new onset CHF exacerbation History of CHF per subacute. BNP 823. Coarse breath sounds on exam, unable to distinguish crackles. No lower extremity edema. No previous echo or BNP on record. CXR suggested CHF pattern. TSH 0.14, free T4 2.01, TG 75, cholesterol 85, LDL 39, A1c 6.4 ? Continue home METOPROLOL 25 mg BID in settings of CHF exacerbation. ? Pending echocardiogram T2DM, insulin-dependent Admission GLUCOSE 198. A1c 6.4. GLUCOSE control. ? INSULIN sliding scale ? Accu-Cheks Hx of seizure disorder Not on home ANTIEPILEPTICS. No signs of seizures. ? Seizure precaution Deep sacral ulcer ? Wound care ? ANTIBIOTICS as above Mild hyponatremia Likely malnutrition. Admission sodium 130. Anticipate correction with rehydration. ? Daily CMP Chronic constipation Likely secondary to CVA. Patient on chronic LAXATIVES. ? Continue LACTULOSE 20 mg BID ? Continue senna daily Chronic PEG tube PEG tube appears intact without signs of infection. ? Continue PEG tube feed ? Dietitian consulted ? Restarted tube feed ? Monitor for refeeding syndrome * Glucerna 1.2 at 30 ml/hr via PEG tube by pump. * Advance 10 ml every 8 hrs to goal rate of 50 ml/hr x 24 hrs. * If no IV fluids, water flushes of 25 ml/hr (or per MD). Hx of CVA History of large cerebral vessel occlusion. Chronically trached and pegged. Opens eyes spontaneously. Does not follow command. Mild hyperthyroidism TSH 0.14, free T4 2.01 ? Recommended outpatient follow-up Health maintenance Diet: PEG tube GI prophylaxis: PROTONIX DVT prophylaxis: HOLD ELIQUIS (GI bleed) CODE STATUS: DNR Disposition: Pending thoracentesis and final ET culture Patient case was discussed with attending, Oliver Figueroa MD and senior residents Dr. Keen and Dr. Andres. Ed Solorio, PGYI Senior Resident Attestation: The patient is a 83-year-old nonverbal female with chronic tracheostomy and PEG 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, seizures, A-fib, hypertension, type 2 diabetes mellitus on insulin presented from subacute rehab with chief complaint of fever of 102 degree F is currently being treated for pneumonia with DDx: Community- acquired pneumonia, aspiration versus HAP, and there were significant left lung fluid that was successfully drained 1200 cc. Will continue with current IV antibiotics, and possibly discharge the patient to subacute rehab tomorrow morning. I discussed with and supervised the senior internet sales consultant physician involved in the care of this patient. I personally saw and examined the patient and discussed the assessment and plan with the entire medicine team, including my attending. I agree with the assessment and plan as documented above. Benjamin Andres MD PGY2 Internal Medicine Attending Provider Attestation/Addendum I reviewed labs, imaging, EKG, home medications and prior available records. Face to face evaluation was performed by me. I have personally examined the patient and discussed assessment and plan with the IM team. I reviewed the resident note and agree with the plan with exceptions as below. Sepsis likely secondary to left-sided pneumonia Left pleural effusion Atrial fibrillation with controlled ventricular rhythm: History of CVA status post trach and PEG Possible CHF Acute anemia Changed to Zosyn and and azithromycin and discontinued vancomycin. Follow-up MRSA: Negative Follow-up CT chest: Showed large right-sided effusion. Status post pleurocentesis on 04/25 Continue amiodarone. Held Eliquis in the setting of acute anemia Hemoglobin is a stable. Stopped Eliquis. Monitor H&H posttransfusion Continue oxygen via tracheostomy and tube feeds via PEG tube Pending SNF placement
[2024-04-26] VITALS (13 sets, daily range): BP systolic 115–140; BP diastolic 61–72; PULSE 61–657; RESP 17–26; TEMP 36–36.7; O2SAT 94–100; BMI 13.8
[2024-04-26] MEDS: INSULIN LISPRO (AdmeLOG) 1 UNIT/0.01 ML UNIT SC ×5 (00:09→23:39)
[2024-04-26] MEDS: ALBUTEROL/IPRATROPIUM (Duoneb) RT SOL 3 ML NEBU INH ×4 (01:30→18:20)
[2024-04-26] MEDS: PIPER/TAZO 3.375 GM 3.375 GM/50 ML BAG IV ×3 (05:23→20:24)
[2024-04-26] MEDS: LACTULOSE SYRUP 20 GM/30 ML UDC GT ×2 (08:00→20:24)
[2024-04-26] MEDS: METOPROLOL TARTRATE 25 MG TABLET GT ×2 (08:00→20:24)
[2024-04-26] MEDS: LANSOPRAZOLE 30 MG TAB.RAP.DR GT (08:06)
[2024-04-26] MEDS: AMIODARONE HCL 200 MG TABLET GT (08:06)
[2024-04-26] MEDS: AZITHROMYCIN 250 MG TABLET 500 MG PO (08:06)
[2024-04-26] MEDS: COLLAGENASE OINT 30 GM TUBE TOP (08:08)
--- NOTE | 2024-04-26 10:31 | PC.SS ---
Update: Plan is to discharge patient back to sub-acute. TOURIST CABIN KEEPER informed bedside nurse.
--- NOTE | 2024-04-26 10:37 | PC.SS ---
ADMINISTRATIVE TECHNICIAN confirmed discharge order present. ADMINISTRATIVE TECHNICIAN updated Sub-Acute staff to patient's discharge order. Nurse to provide report to sub-acute nursing staff, patient to be transitioned to sub-acute prior to 02:00 pm today. Bedside nurse made aware of timeframe.
--- NOTE | 2024-04-26 11:00 | PC.SS ---
SWEATBAND DECORATING MACHINE OPERATOR informed by Sub-Acute staff, that patient's elevated WBC and removal of 1200 cc's from pleural effusion are concerns to patient transtioning back to Sub-Acute today. Sub-Acute requesting doctor to doctor discussion. SWEATBAND DECORATING MACHINE OPERATOR contacted medical team and provided update to request.
[2024-04-26 12:38] LABS: Basophils % (Auto) 0 % (0-2.5); Eosinophils # (Auto) 0.2 Thou/mm3 (0.0-0.5); Eosinophils % (Auto) 1 % (0-10); Hematocrit 28.4 % (36.0-46.0); Hemoglobin 9.1 g/dL (12.0-16.0); Immature Granulocytes % (Auto) 1 % (0-0); Immature Granulocytes Auto 0.09 Thou/mm3 (0.00-0.00); Lymphocytes # (Auto) 1.3 Thou/mm3 (1.0-4.8); Lymphocytes % (Auto) 8 % (10-50); Mean Corpuscular Volume 90 fL (80-100); Monocytes # (Auto) 0.9 Thou/mm3 (0.0-0.8); Monocytes % (Auto) 6 % (0-12); Neutrophils # (Auto) 13.7 Thou/mm3 (1.8-7.7); Neutrophils % (Auto) 84 % (37-80); Nucleated Red Blood Cell % 0 /100 WBC (0); Platelet Count 423 Thou/mm3 (140-440); RDW Standard Deviation 49.1 fL (36.4-46.3); Red Blood Count 3.14 Miln/mm3 (4.00-5.20); White Blood Count 16.2 Thou/mm3 (3.6-11.0)
--- NOTE | 2024-04-26 13:09 | PD.RESDS ---
Planned Discharge Date 04/26/24 DS: Providers Provider Date of admission: 04/21/24 16:47 Primary care physician: Misha Hernandez MD Admitting Provider: Madeline Bansal MD Attending Provider on Admission: Oliver Figueroa MD Consults: 04/21/24 17:53 Referral Registered Dietitian Routine Comment: PEG tube feed 04/22/24 03:26 Referral Wound Care Routine Comment: Attending Provider on DC: Benjamin Andres MD Discharging Provider: Benjamin Andres MD Hospital Course Hospital Course Hospital course: The patient is an 83-year-old female with significant past medical history of tracheostomy tube with PEG 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, seizure disorder, A-fib, hypertension, hyper diabetes mellitus on insulin resident of subacute rehab presented with chief complaint of being found to have fever of 102 ?F. She was treated with IV antibiotics, received 1 unit PRBC transfusion. US guided thoracentesis successfully removed around 1200 cc of pleural fluid that was therapeutic only. This morning, patient was evaluated and was clinically safe to be discharged to subacute rehab. Problems: Sepsis 2/2 Pneumonia, CAP vs Aspiration vs HAP Significant left lung fluid Acute on Chronic Respiratory Failure Acute blood loss anemia Mild transaminitis HTN A-fib, likely paroxysmal HLD Concern for new onset CHF exacerbation T2DM, insulin-dependent Hx of seizure disorder Deep sacral ulcer Mild hyponatremia Chronic constipation Chronic PEG tube Hx of CVA Mild hyperthyroidism Plans: Follow-up with PCP within 1-2 weeks of discharge. Return to Emergency Room if symptoms persist, worsen, or new symptoms develop. Repeat CBC within 1 week to check hemoglobin. Recommended outpatient echocardiogram. -Started on augmentin 875-125mg BID for 7 days Continue taking medications as prescribed before. The patient's management plan was discussed with my attending physician MD Benjamin Toscano MD, PGY2 Time Spent with Patient Time attestation: Total time spent providing and/or coordinating discharge services: Exam Vital Signs Temp Pulse Resp BP Pulse Ox O2 Del Method O2 Flow Rate 96.9 F 61 20 132/72 H 99 Trach Collar 8 04/26/24 12:00 04/26/24 12:01 04/26/24 12:01 04/26/24 12:00 04/26/24 12:01 04/26/24 04:00 04/26/24 12:01 FiO2 30 04/26/24 12:01 Discharge Plan Plan Patient Disposition: Xfer Skilled Nsg Fac (SNF) Care Plan Goals: Follow-up with PCP within 1-2 weeks of discharge. Return to Emergency Room if symptoms persist, worsen, or new symptoms develop. Repeat CBC within 1 week to check hemoglobin. Recommended outpatient echocardiogram. -Started on augmentin 875-125mg BID for 7 days Continue taking medications as prescribed before. Prescriptions/Referrals Prescriptions/Med Rec: New amoxicillin-pot clavulanate 875-125 mg tablet 1 tab PO BID Qty: 14 0RF Continued atorvastatin 80 mg tablet 80 mg feeding tube HS acetaminophen 325 mg tablet 325 mg feeding tube Q6H PRN (Reason: fever or pain) ipratropium-albuterol 0.5 mg-3 mg(2.5 mg base)/3 mL solution for nebulization 3 ml INHALATION Q8H PRN (Reason: shortness of breath) amiodarone 200 mg tablet 200 mg feeding tube BID amlodipine 10 mg tablet 10 mg feeding tube QDAY acetylcysteine 100 mg/mL (10 %) solution 2 ml feeding tube Q8H bisacodyl [Gentle Laxative (bisacodyl)] 5 mg tablet,delayed release (DR/EC) 5 mg feeding tube Q6H PRN (Reason: constipation) Novolin R FlexPen 100 unit/mL (3 mL) insulin pen 1 sliding scale dose SUBCUT Q6H metoprolol tartrate 25 mg tablet 25 mg feeding tube Q12H lactulose [Enulose] 10 gram/15 mL solution 10 g feeding tube Q6H Held Eliquis 2.5 mg tablet 2.5 mg feeding tube BID Hold Instructions: In setting of GI bleed , untill you see PCP Discontinued cephalexin 500 mg capsule 500 mg feeding tube Q12H Patient Comments: TAKE 1 CAPSULE (=500MG) BY MOUTH EVERY 8 HOURS FOR URINARY TRACT INFECTION Referrals: Misha Hernandez MD [Primary Care Provider] - Patient/Caregiver Discharge Instructions Education Materials: Thoracentesis Dc Print Language: Hmong Stand Alone Forms: Rani Award Info., Patient Portal Info Letter Discharge Order Discharge Orders: Discharge (Routine); Ordered 04/26/24 Ordered By: Garry Keen
--- NOTE | 2024-04-26 14:15 | ESPR_ITS ---
Documentation for date of: 04/26/24 Subjective Subjective Interval history: No acute overnight events. Again she is looking better, more alert, tracing object. Still does not follow command. Likely she is at baseline. Exam Vital Signs Temp Pulse Resp BP Pulse Ox O2 Del Method O2 Flow Rate 96.9 F 65 20 132/72 H 100 Trach Collar 8 04/26/24 12:00 04/26/24 12:01 04/26/24 12:01 04/26/24 12:00 04/26/24 12:01 04/26/24 04:00 04/26/24 12:01 FiO2 30 04/26/24 12:01 Narrative Exam GENERAL * Appears comfortable, nonfebrile, no apparent distress. HEENT * NCAT.?BLAISE. Oral mucosa is moist. Patent Nares NECK * Supple, nontender, no thyromegaly, no meningismus, no JVD, On blow-by. CHEST * RRR, unable to appreciate M/G/R secondary to coarse breath sounds * Severely coarse breath sounds bilaterally. No intercostal subcostal retraction * Atraumatic, nontender, no crepitus, symmetrical expansion. ABDOMEN * Soft, flat, nontender. No guarding/rebound tenderness/masses. * Bowel sounds presents EXTREMITIES * Nontender, no cyanosis, no edema * No edema/cyanosis.? SKIN * Warm and dry, no jaundice/rashes. NEUROMUSCULAR/PSYCH * Limited exam. Does not follow command. Opens eyes spontaneously. Objective Labs 04/26/24 12:09 04/25/24 06:08 Labs: Laboratory Results - last 24 hr 04/26/24 12:09 WBC 16.2 H RBC 3.14 L Hgb 9.1 L Hct 28.4 L MCV 90 MCH 29.0 MCHC 32.0 RDW Std Deviation 49.1 H Plt Count 423 Neut % (Auto) 84 H Lymph % (Auto) 8 L [place] % (Auto) 6 Eos % (Auto) 1 Baso % (Auto) 0 Neut # (Auto) 13.7 H Lymph # (Auto) 1.3 [place] # (Auto) 0.9 H Eos # (Auto) 0.2 Baso # (Auto) 0.0 Immature Gran # (Auto) 0.09 H Absolute Nucleated RBC 0.00 Immature Gran % 1 H Nucleated RBC % 0 ABG Interpretation ABG results: 04/21/24 07:50 VBG pH 7.51 VBG pCO2 36 VBG pO2 99 H VBG Base Excess 5 H Quality Measures Quality Measures none Advance care planning discussed with:: child Assessment & Plan Assessment Current Active Medications: Generic Name Dose Route Start Last Admin Trade Name Freq PRN Reason Stop Dose Admin Acetaminophen 650 mg 04/21/24 16:47 Acetaminophen 325 Mg Tablet PO 05/21/24 16:46 Q6H PRN PAIN SCALE 1-3 (mild Acetaminophen 650 mg 04/21/24 16:47 Acetaminophen 325 Mg Tablet PO 05/21/24 16:46 Q6H PRN Fever >100 Albuterol/Ipratropium 3 ml 04/21/24 19:00 04/26/24 12:00 Albuterol/Ipratropium (Duoneb) Rt Viviana 3 Ml Nebu INH 05/21/24 18:59 3 ml Q6HRRT AMARJIT Administration Amiodarone HCl 200 mg 04/21/24 17:45 04/26/24 08:06 Amiodarone Hcl 200 Mg Tablet GT 05/21/24 17:44 200 mg QDAY AMARJIT Administration Apixaban 2.5 mg 04/21/24 21:00 04/23/24 08:03 Apixaban 2.5 Mg Tablet GT 05/21/24 20:59 Not Given BID AMARJIT Azithromycin 500 mg 04/24/24 09:00 04/26/24 08:06 Azithromycin 250 Mg Tablet PO 04/29/24 09:58 500 mg QDAY AMARJIT Administration Collagenase 0 gm 04/25/24 09:00 04/26/24 08:08 Collagenase Oint 30 Gm Tube TOP 05/25/24 08:59 1 applicatio QDAY AMARJIT Administration Dextrose 25 ml 04/21/24 17:34 Dextrose 50%-Water Inj 50 Ml Syringe IV 05/21/24 17:33 Q15MIN PRN BG 50-70 responsive npo pt Dextrose 50 ml 04/21/24 17:34 Dextrose 50%-Water Inj 50 Ml Syringe IV 05/21/24 17:33 Q15MIN PRN BG <50 OR BG <70 & pt unresponsive Glucagon 1 mg 04/21/24 17:34 Glucagon Inj 1 Mg Vial IM Q15MIN PRN BG <70, and no IV access Piperacillin/Tazobactam/Dextrose 3.375 gm in 50 mls @ 12.5 mls/hr 04/21/24 22:00 04/26/24 05:23 Zosyn IV 04/28/24 21:59 12.5 mls/hr Q8HR AMARJIT Administration Insulin Human Lispro 0 unit 04/23/24 12:00 04/26/24 12:43 Insulin Lispro (Admelog) 1 Unit/0.01 Ml Unit SC 05/23/24 11:59 2 unit Q6HR AMARJIT Administration Protocol Lactulose 20 gm 04/21/24 21:00 04/26/24 08:00 Lactulose Syrup 20 Gm/30 Ml Udc GT 05/21/24 20:59 20 gm BID AMARJIT Administration Protocol Lansoprazole 30 mg 04/23/24 09:00 04/26/24 08:06 Lansoprazole 30 Mg Tab. 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 Spoke with son, Rashel, over the phone regarding goals of care. Informed about acute GI bleed anemia. Family does not want to proceed with colonoscopy or EGD at this time. They would like to proceed with blood transfusions and holding ELIQUIS and monitoring. I explained the risk of holding anticoagulations given the patient's history of CVA and A-fib, which are not limited to recurrent stroke. Family understands the risk and would like to proceed with holding ELIQUIS. Rashel said he might be able to come to the hospital today for in person goals of care discussions. Additionally, we discussed thoracentesis, patient wants to proceed with therapeutic thora for now, opted no for cytology and fluid analysis. Goals of care discussion The patient's son Rashel was contacted via phone and updated regarding patients present condition. He was reported that the patient prognosis is poor and if we are not going to continue with further invasive interventions, her condition is going to worsen further. He was given different options for further treatment and wished to proceed with Hospice, but final decision will be given by him when he will come to see the patient on upcoming Tuesday. AHRF 2/2 Pneumonia, resolved Pneumonia, CAP vs Aspiration vs HAP, resolving Significant left lung fluid, s/p thoracocentesis Chronic Respiratory Failure Medical history is unclear. Patient was recently accepted at subacute unit. She is chronically pegged and trached. Apparently she has been spiking fevers of 102 over the last few days. Met 3/4 SIRS criteria with fever, tachypnea and leukocytosis. CXR showed prominent left lung pneumonia, significant left lung fluid. Will follow-up with CT CT Large left moderate right pleural effusions 48H blood culture negative. ET secretion grew yeast, likely contaminant. Symptoms overall improved following thoracentesis. ? Continue DuoNebs ? Continue ZOSYN (04/21 to present) ? Continue AZITHROMYCIN (04/22 to 04/26) ? Continue TYLENOL for fever ? Continue blow by Acute blood loss anemia Hgb 6.9 this morning. Positive FOBT. Family refused endoscopy as explained above. S/p Transfusion 1 unit PRBCs ? HOLDING ELIQUIS ? Transfuse if Hgb <7 ? Recommended repeat CBC in 1 week Mild transaminitis Etiology unknown at this time ? Daily CMP HTN A-fib, likely paroxysmal HLD BP 136/66, HR 84, EKG shows sinus rhythm. Troponin normal. HASBLED 4 indicates high risk for major bleed. [id number] indicates 17% stroke/TIA/embolism. Will continue with home ELIQUIS based on clinical judgment and history of CVA. ? Continue home AMIODARONE 200 mg daily ? Continue home AMLODIPINE 10 mg daily ? Continue home ATORVASTATIN 80 mg HS ? HOLD home ELIQUIS 2.5 mg BID 2/2 GI bleed Concern for new onset CHF exacerbation History of CHF per subacute. BNP 823. Coarse breath sounds on exam, unable to distinguish crackles. No lower extremity edema. No previous echo or BNP on record. CXR suggested CHF pattern. TSH 0.14, free T4 2.01, TG 75, cholesterol 85, LDL 39, A1c 6.4 ? Continue home METOPROLOL 25 mg BID in settings of CHF exacerbation. ? Pending echocardiogram T2DM, insulin-dependent Admission GLUCOSE 198. A1c 6.4. GLUCOSE control. ? INSULIN sliding scale ? Accu-Cheks Hx of seizure disorder Not on home ANTIEPILEPTICS. No signs of seizures. ? Seizure precaution Deep sacral ulcer ? Wound care ? ANTIBIOTICS as above Mild hyponatremia Likely malnutrition. Admission sodium 130. Anticipate correction with rehydration. ? Daily CMP Chronic constipation Likely secondary to CVA. Patient on chronic LAXATIVES. ? Continue LACTULOSE 20 mg BID ? Continue senna daily Chronic PEG tube PEG tube appears intact without signs of infection. ? Continue PEG tube feed ? Dietitian consulted ? Restarted tube feed ? Monitor for refeeding syndrome * Glucerna 1.2 at 30 ml/hr via PEG tube by pump. * Advance 10 ml every 8 hrs to goal rate of 50 ml/hr x 24 hrs. * If no IV fluids, water flushes of 25 ml/hr (or per MD). Hx of CVA History of large cerebral vessel occlusion. Chronically trached and pegged. Opens eyes spontaneously. Does not follow command. Mild hyperthyroidism TSH 0.14, free T4 2.01 ? Recommended outpatient follow-up Health maintenance Diet: PEG tube GI prophylaxis: Lansoprazole DVT prophylaxis: HOLD ELIQUIS (GI bleed) CODE STATUS: DNR Disposition: Pending improvement in WBC count and The patient's management plan was discussed with my attending physician MD Benjamin Toscano MD, PGY2 Attending Provider Attestation/Addendum I reviewed labs, imaging, EKG, home medications and prior available records. Face to face evaluation was performed by me. I have personally examined the patient and discussed assessment and plan with the IM team. I reviewed the resident note and agree with the plan with exceptions as below. Sepsis likely secondary to left-sided pneumonia Left pleural effusion status post pleurocentesis Atrial fibrillation with controlled ventricular rhythm History of CVA status post trach and PEG Possible CHF Acute anemia Patient's WBC increased. Cannot discharge the patient. Family refused further workup for both GI bleed as well as the pleural fluid. Concern for worsening infection for which the patient is high risk for readmission. Will discuss goals of care with family. She is a candidate for SNF/hospice given that the family does not want to pursue any further investigation Antibiotics: She is on Zosyn. Follow-up MRSA: Negative Follow-up CT chest: Showed large right-sided effusion. Status post pleurocentesis on 04/25 Continue amiodarone. Held Eliquis in the setting of acute anemia. Hemoglobin is a stable. Stopped Eliquis. Monitor H&H posttransfusion. Per family, declined further GI workup for which we will continue to stop Eliquis upon discharge Continue oxygen via tracheostomy and tube feeds via PEG tube
[2024-04-26] MEDS: FUROSEMIDE INJ 10 MG/ML 4ML VIAL 40 MG IVP (15:41)
--- NOTE | 2024-04-26 16:01 | PC.SS ---
UX VISUAL DESIGNER informed by resident that patient's family will be at patient's bedside on Tuesday to conduct goals of care discussion with medical team.
[2024-04-27] VITALS (9 sets, daily range): BP systolic 136–144; BP diastolic 66–90; PULSE 63–97; RESP 20–24; TEMP 36.3–36.6; O2SAT 95–99; BMI 13.4
[2024-04-27] MEDS: ALBUTEROL/IPRATROPIUM (Duoneb) RT SOL 3 ML NEBU INH ×3 (01:00→12:29)
[2024-04-27] MEDS: INSULIN LISPRO (AdmeLOG) 1 UNIT/0.01 ML UNIT SC ×2 (05:20→12:46)
[2024-04-27] MEDS: PIPER/TAZO 3.375 GM 3.375 GM/50 ML BAG IV (05:21)
[2024-04-27 08:09] LABS: Basophils % (Auto) 0 % (0-2.5); Eosinophils # (Auto) 0.3 Thou/mm3 (0.0-0.5); Eosinophils % (Auto) 2 % (0-10); Hematocrit 29.3 % (36.0-46.0); Hemoglobin 9.5 g/dL (12.0-16.0); Immature Granulocytes % (Auto) 1 % (0-0); Immature Granulocytes Auto 0.11 Thou/mm3 (0.00-0.00); Lymphocytes # (Auto) 1.4 Thou/mm3 (1.0-4.8); Lymphocytes % (Auto) 9 % (10-50); Mean Corpuscular HGB Conc 32.4 g/dl (31.0-37.0); Mean Corpuscular Hemoglobin 29.1 pg (25.0-35.0); Mean Corpuscular Volume 90 fL (80-100); Monocytes # (Auto) 0.8 Thou/mm3 (0.0-0.8); Monocytes % (Auto) 6 % (0-12); Neutrophils % (Auto) 82 % (37-80); Nucleated Red Blood Cell % 0 /100 WBC (0); Platelet Count 423 Thou/mm3 (140-440); Red Blood Count 3.27 Miln/mm3 (4.00-5.20); White Blood Count 14.5 Thou/mm3 (3.6-11.0)
[2024-04-27] MEDS: LACTULOSE SYRUP 20 GM/30 ML UDC GT (08:10)
[2024-04-27] MEDS: METOPROLOL TARTRATE 25 MG TABLET GT (08:10)
[2024-04-27] MEDS: AMIODARONE HCL 200 MG TABLET GT (08:11)
[2024-04-27] MEDS: COLLAGENASE OINT 30 GM TUBE TOP (08:12)
[2024-04-27] MEDS: LANSOPRAZOLE 30 MG TAB.RAP.DR GT (08:12)
[2024-04-27 08:26] LABS: Alanine Aminotransferase 40 U/L (10-49); Albumin/Globulin Ratio 0.9 (1.2-2.2); Alkaline Phosphatase 68 U/L (46-116); Anion Gap 7 (7-16); Aspartate Amino Transferase 30 U/L (0-34); BUN/Creatinine Ratio 27 Ratio (12-20); Bilirubin,Total 0.3 mg/dL (0.3-1.2); Blood Urea Nitrogen 19 mg/dL (9-23); Calcium 8.5 mg/dL (8.3-10.6); Calcium (Corrected) 9.3 mg/dL (8.5-10.1); Carbon Dioxide 29.4 mMol/L (20.0-31.0); Chloride 99 mMol/L (98-107); Creatinine (Component) 0.7 mg/dL (0.6-1.3); Estimated Creatinine Clearance 31.1 mL/min (>60); Globulin 3.3 gm/dL (2.3-3.5); Glucose 166 mg/dL (74-106); Osmolality,Calculated 276 (275-295); Potassium 4.6 mMol/L (3.4-5.1); Sodium 135 mMol/L (136-145); Total Protein 6.3 gm/dL (5.7-8.2); eGFR > 60 See Note
--- NOTE | 2024-04-27 14:15 | ESDS_ITS ---
<Statement entered by Manisha Kerr MD - 05/01/24 15:41> I reviewed above note and agree with findings and plans. I have also personally examined the patient with medicine team and went over assessment and plan with medical team including internal grinder and resident physician. Planned Discharge Date 04/27/24 DS: Providers Provider Date of admission: 04/21/24 16:47 Primary care physician: Misha Hernandez MD Admitting Provider: Madeline Bansal MD Attending Provider on Admission: Oliver Figueroa MD Consults: 04/21/24 17:53 Referral Registered Dietitian Routine Comment: PEG tube feed 04/22/24 03:26 Referral Wound Care Routine Comment: Attending Provider on DC: Leonie Daneilson MD Discharging Provider: Leonie Danielson MD DS: Diagnosis Problem List Completed Was Problem List Reviewed/Reconciled?: Yes Hospital Course Hospital Course Hospital course: The patient is an 83-year-old female with chronic trach tube as well as PEG tube secondary to multiple strokes, seizure disorder, A-fib, hypertension type II DM who presents from the subacute on 04/21/2024 with a fever of 102 degrees. Fever states that started about a day prior to presentation cultures have been ordered, patient had also received 1 dose of ceftriaxone. Per subacute, there was no known source of infection other than deep tissue sacral ulcer. In the ED, patient was febrile and labs were significant for leukocytosis. Chest x-ray showed mild heart failure and prominence left lung pneumonia as well as left lower fluid concerning for left hemothorax. Patient was admitted for management of sepsis secondary to and was treated with IV antibiotics, she also received 1 units of PRBC. For the pleural effusion, ultrasound guided thoracentesis was done on 04/25/2024 and about 1200 cc of clear fluid was removed. All cultures were negative except for exacerbations, positive for Sil albicans. Goals of care discussion was had on 04/26/2024 with son who expressed his wish to proceed with hospice, will continue further discussion with physicians at the subacute who have been made aware. Today, the patient is clinically and hemodynamically stable, back to her basel ine leukocytosis is improving and she is stable for discharge back to subacute. She was started on Augmentin to be continued for 7 days. Recommendations also included to follow-up with PCP within a week of discharge and repeat CBC within 1 week to check hemoglobin. Cariquis is held until her visit with PCP All other medications continued. #Acute hypoxic respiratory failure secondary to pneumonia #Left lung perforation, status post paracentesis #Acute blood loss anemia #Type II DM #History of seizure disorder #Sacral ulcer #Chronic PEG tube Case was discussed with Dr Andres PGY-2 and attending physician, Dr Cirilo Danielson MD PGY-1 Senior Resident Attestation: I discussed with and supervised the internal grinder physician involved in the care of this patient. I personally saw and examined the patient and discussed the assessment and plan with the entire medicine team, including my attending. I agree with the discharge plan as documented above. Benjamin Andres MD PGY2 Internal Medicine Time Spent with Patient Time attestation: Total time spent providing and/or coordinating discharge services: more than 30minutes Exam Vital Signs Temp Pulse Resp BP Pulse Ox O2 Del Method O2 Flow Rate 97.3 F 69 20 136/66 H 99 Trach Collar 8 04/27/24 12:00 04/27/24 12:30 04/27/24 12:30 04/27/24 12:00 04/27/24 12:30 04/27/24 04:00 04/27/24 12:30 FiO2 30 04/27/24 12:30 Narrative Exam GENERAL: Nonverbal at baseline, chronic trach tube visualized NEURO: Unable to follow commands, chronically bedbound s/p CVA with focal neurologic deficits, able to track. HEENT: Moist mucosa. Eyes open, symmetrical, & clear CARDIO: No chest pain on palpation. Heart RRR, no obvious murmurs PULM: Chronic trch tube, come coarse breath sounds on auscultation GI: Abdomen soft, nondistended, PEG tube in-situ SKIN/MSK/EXT: No wounds/rashes/edema/amputations, no pain on palpation. Pedal pulses present B/L Discharge Plan Plan Patient Disposition: Xfer Skilled Nsg Fac (SNF) Care Plan Goals: Follow-up with PCP within 1-2 weeks of discharge. Return to Emergency Room if symptoms persist, worsen, or new symptoms develop. Repeat CBC within 1 week to check hemoglobin. Recommended outpatient echocardiogram. -Started on augmentin 875-125mg BID for 7 days Continue taking medications as prescribed before. Prescriptions/Referrals Prescriptions/Med Rec: New amoxicillin-pot clavulanate 875-125 mg tablet 1 tab PO BID Qty: 14 0RF Continued atorvastatin 80 mg tablet 80 mg feeding tube HS acetaminophen 325 mg tablet 325 mg feeding tube Q6H PRN (Reason: fever or pain) ipratropium-albuterol 0.5 mg-3 mg(2.5 mg base)/3 mL solution for nebulization 3 ml INHALATION Q8H PRN (Reason: shortness of breath) amiodarone 200 mg tablet 200 mg feeding tube BID amlodipine 10 mg tablet 10 mg feeding tube QDAY acetylcysteine 100 mg/mL (10 %) solution 2 ml feeding tube Q8H bisacodyl [Gentle Laxative (bisacodyl)] 5 mg tablet,delayed release (DR/EC) 5 mg feeding tube Q6H PRN (Reason: constipation) Novolin R FlexPen 100 unit/mL (3 mL) insulin pen 1 sliding scale dose SUBCUT Q6H metoprolol tartrate 25 mg tablet 25 mg feeding tube Q12H lactulose [Enulose] 10 gram/15 mL solution 10 g feeding tube Q6H Held Eliquis 2.5 mg tablet 2.5 mg feeding tube BID Hold Instructions: In setting of GI bleed , untill you see PCP Discontinued cephalexin 500 mg capsule 500 mg feeding tube Q12H Patient Comments: TAKE 1 CAPSULE (=500MG) BY MOUTH EVERY 8 HOURS FOR URINARY TRACT INFECTION Referrals: Misha Hernandez MD [Primary Care Provider] - Patient/Caregiver Discharge Instructions Education Materials: Thoracentesis Dc Print Language: Hmong Stand Alone Forms: Rani Award Info., Patient Portal Info Letter Discharge Order Discharge Orders: Discharge (Routine); Ordered 04/27/24 Ordered By: Benjamin Andres Quality Discharge Quality Measures VTE prophylaxis
== END 2024-04-27 13:15 | disposition skilled nursing facility (03) | DRG 871 ==
LOC: SERX 08:03 → SERHOLD 17:15 → S2NX 20:47
PROVIDERS: Student in an Organized Health Care Education/Training Program; Admitting Provider Student in an Organized Health Care Education/Training Program; Emergency Provider Emergency Medicine; PCP Specialist; Visit Provider Student in an Organized Health Care Education/Training Program
DX: A41.9 Sepsis, unspecified organism (principal); J18.9 Pneumonia, unspecified organism; J96.21 Acute and chronic respiratory failure with hypoxia; D62 Acute posthemorrhagic anemia; E46 Unspecified protein-calorie malnutrition; E87.1 Hypo-osmolality and hyponatremia; Z68.1 Body mass index [BMI] 19.9 or less, adult; K92.2 Gastrointestinal hemorrhage, unspecified; J91.8 Pleural effusion in other conditions classified elsewhere; E05.90 Thyrotoxicosis, unspecified without thyrotoxic crisis or storm; L89.156 Pressure-induced deep tissue damage of sacral region; I11.0 Hypertensive heart disease with heart failure; I50.9 Heart failure, unspecified; E11.9 Type 2 diabetes mellitus without complications; E78.00 Pure hypercholesterolemia, unspecified; I48.91 Unspecified atrial fibrillation; R56.9 Unspecified convulsions; K59.09 Other constipation; Z86.73 Personal history of transient ischemic attack (TIA), and cerebral infarction without residual deficits; Z93.0 Tracheostomy status; Z66 Do not resuscitate; Z93.1 Gastrostomy status; Z79.4 Long term (current) use of insulin; Z79.899 Other long term (current) drug therapy; Z79.01 Long term (current) use of anticoagulants
CPT/HCPCS: 36415; 70450; 71045; 71250; 80053; 80061; 80307; 80320; 81001; 82140; 82803; 83036; 83605; 83735; 83880; 84100; 84145; 84439; 84443; 84484; 85014; 85018; 85025; 85610; 86850; 86900; 86901; 86923; 87040; 87081; 87086; 87106; 87205; 87400; 87811; 93005; 94640; 94664; 96365; 96366; 96367; 99291; A9270; C1729; J0456; J1815; J1940; J2470; J2543; J3371; J7030; J7040; J7050; P9016; G0480

== ENCOUNTER 2024-05-18 15:16 | Emergency (ER) | payer MEDICARE, OTHER, SELFPAY ==
[2024-05-18 15:22] VITALS: BMI 19.9
[2024-05-18 15:35] VITALS: BP 122/58; PULSE 77; RESP 20; TEMP 37.9; O2SAT 93
--- NOTE | 2024-05-18 15:45 | PC.NURSE ---
Pt BIB nursing staff from [facility] Subacute department with chief c/o of abnormal chest XR done today that showed large left pleural effusion/ Bronchitis pattern Pt also has been having fevers. On assessment the Pt has a tracheotomy with blowby on 7L O2. there is diminished breath-sound on the left mid/lower lobes with RR 22. Pt is warm to the touch, non verbal. Son at bedside in which he was given an update on plan of care.
[2024-05-18 16:17] VITALS: BP 123/60; PULSE 74; RESP 23; O2SAT 93
--- NOTE | 2024-05-18 16:38 | PD.EDRECHK ---
ED Recheck Abnl Lab Rx-RME/HPI General Chief Complaint: Shortness of Breath/Dyspnea Stated Complaint: Pleural Effusion on Xray Arrival date/time: 05/18/24 15:16 RME / HPI RME / HPI narrative: Patient is a 83-year-old Hmong female with past medical history of CVA s/p chronic trach and PEG, seizure disorder, A-fib, hypertension, type 2 diabetes on insulin who was brought to the ED from [facility] subacute today due to fevers since this morning to 101.5 and abnormal CXR this morning showing large left pleural effusion. Patient opens eyes to stimulation, tracks, and has some weak upper extremity spontaneous movement but unable to meaningfully interact or follow commands. Patient was recently admitted 04/21-04/27 for similar issue and had a thoracentesis of the left side with withdrawal of 1200 ml fluid. Discussed with son Nolan at the bedside. He states that there has been some talk regarding hospice in the family, however his brother is the primary decision maker and he has been wanting to continue with treatment. Spoke with Rashel Her, son and decision-maker for the patient on the phone. He would like to continue treatment, including any antibiotics or procedures, and will further discuss with the family about hospice care at a later point. Per POLST form patient is a DNR with selective treatment. Patient's son and decision-maker Rashel confirms this. Description of abnormal result: CXR - large left pleural effusion, bronchitis pattern Related Data Home Medications ?Medication ?Instructions ?Recorded ?Confirmed acetaminophen 325 mg tablet 325 mg feeding tube Q6H PRN fever 04/25/24 05/20/24 or pain acetylcysteine 100 mg/mL (10 %) 2 ml feeding tube Q8H 04/25/24 05/20/24 solution amiodarone 200 mg tablet 200 mg feeding tube DAILY 04/25/24 05/20/24 amlodipine 10 mg tablet 10 mg feeding tube QDAY 04/25/24 05/20/24 apixaban 2.5 mg tablet (Eliquis) 2.5 mg feeding tube BID 04/25/24 05/20/24 Held on 04/26/24. Instructions: In setting of GI bleed , untill you see PCP atorvastatin 80 mg tablet 80 mg feeding tube HS 04/25/24 05/20/24 bisacodyl 5 mg tablet,delayed 5 mg feeding tube Q6H PRN 04/25/24 05/20/24 release (Gentle Laxative constipation (bisacodyl)) insulin regular human 100 unit/mL 1 sliding scale dose subcut Q6H 04/25/24 05/20/24 (3 mL) subcutaneous pen (Novolin R FlexPen) ipratropium 0.5 mg-albuterol 3 mg 3 ml inhalation Q6H PRN shortness 04/25/24 05/20/24 (2.5 mg base)/3 mL nebulization of breath soln lactulose 10 gram/15 mL oral 10 g feeding tube Q6H 04/25/24 05/20/24 solution (Enulose) metoprolol tartrate 25 mg tablet 25 mg feeding tube Q12H 04/25/24 05/20/24 calcium 600 mg (as 1 cap PO DAILY 05/20/24 05/20/24 carbonate)-vitamin D3 5 mcg (200 unit) capsule (Calcium 600 + D(3)) sennosides 8.6 mg tablet 8.6 mg feeding tube BID 05/20/24 05/20/24 (Black-Draught Lax-Senna) Previous Rx's ?Medication ?Instructions ?Recorded amoxicillin 875 mg-potassium 1 tab PO BID #14 tabs 04/26/24 clavulanate 125 mg tablet Allergies Allergy/AdvReac Type Severity Reaction Status Date / Time No Known Allergies Allergy Verified 05/25/24 08:41 Past Medical History Past Medical History NEUROLOGIC: Positive Neurological Disorders and Cerebrovascular Accident CARDIAC: Positive Cardiac Disorders, Atrial Fibrillation, Hypercholesterolemia, Edema and Hypertension ENDOCRINE: Positive Endocrine Disorders and Diabetes Mellitus Type 2 Surgical History SURGICAL: Positive Tracheostomy and Gastrostomy Social History SMOKING STATUS: Unknown if ever smoked SECOND HAND EXPOSURE: No SUBSTANCE USE: does not use ALCOHOL: Never ED Exam Narrative Physical exam: Physical Exam General: Chronically trached and bedbound. Opens eyes to stimulation, tracks, but unable to demonstrate understanding. HEENT: Normocephalic, atraumatic, mucous membranes moist. Heart: Regular rate and rhythm, no murmurs. Lungs: Reduced breath sounds left lower base. Abdomen: Soft, nondistended, nontender, positive bowel sounds. ?No guarding or rebound tenderness. Neurologic: Unable to assess orientation, spontaneous movement of upper extremities, right side more weak. Extremities: No edema. Skin: No rash or ecchymoses. Course Quality Measures none Orders Category Date Time Status Piper/Tazo Inj [Zosyn Inj] 4.5 gm Med 05/18/24 17:18 Discontinued Sodium Chloride 0.9% (Pop) [NS 0.9% mini bag] 100 ml IV X1 Vital Signs Vital signs: Vital Signs Temperature 100.3 F 05/18/24 15:35 Pulse Rate 77 05/18/24 15:35 Respiratory Rate 20 05/18/24 15:35 Blood Pressure 122/58 L 05/18/24 15:35 Pulse Oximetry (%) 93 L 05/18/24 15:35 Oxygen Delivery Method Blow-by 05/18/24 15:35 Oxygen Flow Rate 6 05/18/24 15:35 Recheck / Abnormal Lab / Rx MDM Narrative MDM Narrative:: Patient was sent by [facility] subacute due to fevers this morning and CXR showing large left recurrent pleural effusion. Labs done this morning showed a WBC 18.2 but negative procal. COVID and influenza were negative. Patient has mild fever of 100.3, is not in respiratory distress, appears comfortable. Patient already started on antibiotics at the subacute. Discussed patient presentation and findings with attending Dr. Rodriguez. As it is late in the day, unfortunately IR services are unavailable for thoracentesis and will not be available over the weekend. It was discussed that with the patient's presentation, emergent thoracentesis is not needed but if the patient develops acute respiratory distress over the weekend the patient may be sent back to the ED. Patient should be scheduled for thoracentesis on Tuesday with IR and pleural studies ordered. Patient data External records reviewed:: [facility] previous records Clinical information provided by:: family Social determinants that could affect healthcare access:: none Patient has the following chronic illnesses:: As above How is presenting disease/condition affected by chronic disease/condition?: caused by Evaluation data The following diagnostics were reviewed and interpreted by me:: lab results and radiology exam(s) Lab and/or radiology exams considered but not ordered:: Chemistry panel, but not needed due to no systemic signs or symptoms of change in status. Interpretation Summary: Chest X-Ray AP chest single view FINDINGS: Mild prominence left ventricle Large left pleural effusion Accentuation bronchovascular markings. Tracheostomy tube tip 7.3 cm above segundo IMPRESSION: Large left pleural effusion Bronchitis pattern Medications / Prescriptions Medications or Prescriptions considered but not ordered:: Considered antibiotics but not necessary given the patient is already on. Medication administrations:: Medication Administration History Discontinued Medications Piperacillin Sod/Tazobactam (Sod 4.5 gm/ Sodium Chloride) 100 mls @ 200 mls/hr IV X1 ONE Stop: 05/18/24 17:47 Last Admin: 05/18/24 18:37 Dose: Not Given Documented By: DB Non-Admin Reason: Cancelled by Provider Medication not given. Patient already getting ceftriaxone. Consultations Consultation(s) initiated? (list below): No Diagnosis Recheck Differential Diagnosis: other Most likely diagnosis given after review of the tests above:: Recurrent left pleural effusion Admission Indicated Admission indicated?: not indicated Explain why admission is indicated or not indicated:: Patient can receive IV antibiotics at subacute. Currently no indication for inpatient treatment. Thoracentesis can be done on Tuesday with IR. Admission Request Was there a request for admission?: No Disposition Plan Disposition Plan: Discharge Discharge Attestation Discharge Attestation: The patient and all family members were given an opportunity to ask questions and understood the discharge instructions. Discharge instructions specifically effects, indications for sooner follow up or return to the emergency department, and the expected course of current diagnosis. Patient condition: Stable Discharge Plan Plan Patient Disposition: Xfer Nursing Home Acute Patient condition on transfer: Stable Prescriptions/Referrals Prescriptions/Med Rec: No Action atorvastatin 80 mg tablet 80 mg feeding tube HS acetaminophen 325 mg tablet 325 mg feeding tube Q6H PRN (Reason: fever or pain) ipratropium-albuterol 0.5 mg-3 mg(2.5 mg base)/3 mL solution for nebulization 3 ml INHALATION Q6H PRN (Reason: shortness of breath) amiodarone 200 mg tablet 200 mg feeding tube DAILY amlodipine 10 mg tablet 10 mg feeding tube QDAY acetylcysteine 100 mg/mL (10 %) solution 2 ml feeding tube Q8H bisacodyl [Gentle Laxative (bisacodyl)] 5 mg tablet,delayed release (DR/EC) 5 mg feeding tube Q6H PRN (Reason: constipation) Novolin R FlexPen 100 unit/mL (3 mL) insulin pen 1 sliding scale dose SUBCUT Q6H metoprolol tartrate 25 mg tablet 25 mg feeding tube Q12H lactulose [Enulose] 10 gram/15 mL solution 10 g feeding tube Q6H Eliquis 2.5 mg tablet 2.5 mg feeding tube BID amoxicillin-pot clavulanate 875-125 mg tablet 1 tab PO BID Qty: 14 0RF sennosides [Black-Draught Lax-Senna] 8.6 mg tablet 8.6 mg feeding tube BID Calcium 600 + D(3) 600 mg-5 mcg (200 unit) capsule 1 cap PO DAILY Rx Instructions: per Peg tube Referrals: No Primary/Family,Physician [Primary Care Provider] - In 1 week Problem List Clinical Impression: Recurrent left pleural effusion Patient/Caregiver Discharge Instructions Additional Instructions: As the patient is not currently seeming to be in respiratory distress, emergent thoracentesis is not needed at this time. Patient may be sent back to subacute and may continue IV antibiotics as already scheduled. Patient may be scheduled for IR guided thoracentesis on Tuesday. Recommend pleural fluid studies as well including glucose, amylase, cell count, protein, LDH, gram stain and culture. If respiratory status worsens and the patient seems in respiratory distress with significantly increased O2 requirements, sent the patient back to the ED for emergent thoracentesis. Print Language: [employer] Stand Alone Forms: Rani Award Info., Patient Portal Info Letter MD Attestation MD Attestation The patient was seen by the PGY 2. I, the supervising physician, also encountered and examined the patient and remained present during the entire ER visit. With the PGY 2 we formulated the encounter, workup, management, treatment, and medical decision making. I agree with the plan and documentation.
[2024-05-18 17:53] VITALS: BP 134/61; PULSE 78; RESP 22; TEMP 37.4; O2SAT 94
== END 2024-05-18 19:23 ==
PROVIDERS: Emergency Provider Emergency Medicine
DX: J90 Pleural effusion, not elsewhere classified (principal); Z93.0 Tracheostomy status; E11.9 Type 2 diabetes mellitus without complications; I10 Essential (primary) hypertension; I48.91 Unspecified atrial fibrillation
CPT/HCPCS: 99281

== ENCOUNTER 2024-05-19 07:42 | Inpatient (IN) | payer MEDICARE, OTHER, SELFPAY ==
[2024-05-19] VITALS (14 sets, daily range): BP systolic 102–141; BP diastolic 50–100; PULSE 64–121; RESP 14–31; TEMP 36–38.3; O2SAT 95–100; BMI 19.8; BMI 13.9; BMI 20.4
--- NOTE | 2024-05-19 07:55 | EKG_ITS ---
[facility] Test Date: 2024-05-19 Pat Name: DAJUAN PAZ Department: Room: - Gender: Female Variety Lathe Operator: : 1940 Requested By: Nick Rodriguez Order Number: [id number] Reading MD: Nick Rodriguez Measurements Intervals [place] Rate: 116 P: 33 TX: 167 QRS: -56 QRSD: 125 T: 80 QT: 346 QTc: 483 Interpretive Statements SINUS TACHYCARDIA MARKED LEFT AXIS DEVIATION [QRS AXIS < -30] RIGHT BUNDLE BRANCH BLOCK [120+ ms QRS DURATION, UPRIGHT V1, 40+ ms S IN I/aVL/V4/V5/V6] SEPTAL MYOCARDIAL INFARCTION , OF INDETERMINATE AGE [40+ ms Q WAVE IN V1/V2] Compared to ECG 04/21/2024 10:47:36 Left-axis deviation now present Right bundle-branch block now present Myocardial infarct finding now present Sinus rhythm no longer present /store/S0/[id number].pdf
--- NOTE | 2024-05-19 08:21 | XR_ITS ---
Examination: AP chest single view Technique one AP portable upright chest single view Exam date and time: May 19, 2024 0911 hrs. Comparison May 18, 2024 Indications: Sepsis alert today Findings: Total opacification left hemithorax with volume loss Prominent right lung vascular congestion Tracheostomy tube tip 7.3 cm Impression: Extensive pneumonia and atelectasis left lung, consider mucous plug in the left mainstem bronchus, consider bronchoscopy follow-up
[2024-05-19] MEDS: SODIUM CHLORIDE 0.9% 1000 ML 1,000 ML 999 ML IV ×2 (08:35→10:35)
[2024-05-19] MEDS: ACETAMINOPHEN SOL 325 MG/10 ML UDC 650 MG GT (08:38)
[2024-05-19] MEDS: IBUPROFEN SUSP 100 MG/5 ML UDC 600 MG GT (08:38)
[2024-05-19 09:42] LABS: Lactate (Lactic Acid) 2.8 mMol/L (0.4-2.0)
[2024-05-19 09:43] LABS: Collection Type, Urine Catheter
[2024-05-19 09:49] LABS: Basophils # (Auto) 0.1 Thou/mm3 (0.0-0.2); Basophils % (Auto) 0 % (0-2.5); Eosinophils % (Auto) 0 % (0-10); Hematocrit 23.9 % (36.0-46.0); Immature Granulocytes % (Auto) 0 % (0-0); Immature Granulocytes Auto 0.07 Thou/mm3 (0.00-0.00); Lymphocytes # (Auto) 0.3 Thou/mm3 (1.0-4.8); Lymphocytes % (Auto) 2 % (10-50); Mean Corpuscular HGB Conc 33.1 g/dl (31.0-37.0); Mean Corpuscular Hemoglobin 28.7 pg (25.0-35.0); Mean Corpuscular Volume 87 fL (80-100); Monocytes % (Auto) 6 % (0-12); Neutrophils # (Auto) 17.2 Thou/mm3 (1.8-7.7); Neutrophils % (Auto) 92 % (37-80); Nucleated Red Blood Cell % 0 /100 WBC (0); Platelet Count 302 Thou/mm3 (140-440); RDW Standard Deviation 46.7 fL (36.4-46.3); Red Blood Count 2.75 Miln/mm3 (4.00-5.20); White Blood Count 18.6 Thou/mm3 (3.6-11.0)
[2024-05-19 09:56] LABS: Hemoglobin 7.9 g/dL (12.0-16.0)
[2024-05-19 10:13] LABS: Alanine Aminotransferase 166 U/L (10-49); Albumin, Serum 2.5 gm/dL (3.4-4.8); Albumin/Globulin Ratio 0.9 (1.2-2.2); Alkaline Phosphatase 106 U/L (46-116); Anion Gap 9 (7-16); Aspartate Amino Transferase 121 U/L (0-34); BUN/Creatinine Ratio 73 Ratio (12-20); Bilirubin,Total 0.4 mg/dL (0.3-1.2); Blood Urea Nitrogen 51 mg/dL (9-23); Calcium 7.7 mg/dL (8.3-10.6); Calcium (Corrected) 8.9 mg/dL (8.5-10.1); Carbon Dioxide 25.8 mMol/L (20.0-31.0); Chloride 97 mMol/L (98-107); Creatinine (Component) 0.7 mg/dL (0.6-1.3); Estimated Creatinine Clearance 45.8 mL/min (>60); Globulin 2.8 gm/dL (2.3-3.5); Glucose 161 mg/dL (74-106); Osmolality,Calculated 281 (275-295); Potassium 4.4 mMol/L (3.4-5.1); Procalcitonin 8.52 ng/ml (0.0-0.49); Sodium 132 mMol/L (136-145); Total Protein 5.3 gm/dL (5.7-8.2); eGFR > 60 See Note
[2024-05-19 10:17] LABS: Troponin I 0.077 ng/mL (0.0-0.045)
[2024-05-19 10:25] LABS: Bilirubin,Urine Negative (Negative); Blood,Urine 2+ (Negative); Clarity,Urine Turbid (Clear/Hazy); Color,Urine Yellow (Lt Yel-Yel); Glucose, Urine Negative (Negative); Ketones,Urine Negative (Negative); Leukocyte Esterase,Urine Positive (Negative); Nitrite,Urine Negative (Negative); Protein,Urine 3+ (Neg - Trace); RBC,Urine 68 /hpf (0-3); Specific Gravity,Urine 1.018 (1.001-1.035); Squamous Epithelial Cell,Urine < 1 /hpf (0-5); Urobilinogen,Urine Negative mg/dL (0.0-1.0); WBC,Urine 22 /hpf (0-5)
--- NOTE | 2024-05-19 10:30 | XR_ITS ---
Examination: CT chest with intravenous contrast 2-D sagittal and coronal reconstructions Exam date and time: May 19, 2024 at 1314 hrs. Indications: Sepsis alert shortness of breath congestion today CTDI:vol (mGy) 13 DLP: (mGycm) 486 Technique: Multiple axial sections of the thorax have been obtained. Sections have been obtained, 3 mm slice thickness. Mediastinal and lung density settings have been obtained. Intravenous contrast administered, 60 cc Isovue-370. 2-D sagittal, coronal images obtained. Low dose protocols were performed. One or more of the following dose reduction techniques were used; automated exposure control, adjustment of the mA and/or KV according to patient size, use of iterative reconstruction technique. Findings: Significant thyromegaly with bilateral thyroid nodules including 3 cm right thyroid nodule as well as isthmus thyroid nodule Tracheostomy tube satisfactory position No thoracic aortic aneurysm dilatation No pulmonary artery emboli on this non-CTA study Large bilateral pleural effusions Atelectasis and pneumonia left lung Mild pneumonia right base Mild vascular congestion No visualized liver or splenic lesion Absent gallbladder Common bile duct 7 mm Minimal left hydronephrosis Heavy abdominal aortic calcification including heavy calcification origin right renal artery Gastrostomy tube satisfactory position Impression: Significant thyromegaly with multiple thyroid nodules Large bilateral pleural effusions Atelectasis and pneumonia left lung especially left lower lobe Mild pneumonia right base
[2024-05-19] MEDS: PIPER/TAZO INJ 3.375 GM in SODIUM CHLORIDE 0.9% (Popper) 50 ML IV ×3 (10:39→21:33)
[2024-05-19] MEDS: Vancomycin Inj 1,000 MG in SODIUM CHLORIDE 0.9% 250 ML 250 ML 150 MG IV (11:35)
--- NOTE | 2024-05-19 11:52 | EDNOTE_ITS ---
<Statement entered by Kaur Taylor MD - 05/19/24 23:41> As co-signing physician, I was present and available for consult prn. I concur with the plan and care as documented by the midlevel provider. ED SOB =RME/HPI General Chief Complaint: Shortness of Breath/Dyspnea Stated Complaint: LOW O2 Time Seen by Provider: 05/19/24 08:03 Arrival date/time: 05/19/24 07:42 RME / HPI RME / HPI Narrative: 83-year-old ong female with past medical history of CVA s/p chronic trach and PEG, seizure disorder, A-fib, hypertension, type 2 diabetes who was brought to the ED from subacute today due to fevers since yesterday. Patient is nonverbal. Was seen here yesterday and was sent back to the facility. Patient was sent back to us today for worsening pleural effusion on the left. No other pertinent information can be extracted at this time. Sepsis alert was initiated right away Related Data Home Medications ?Medication ?Instructions ?Recorded ?Confirmed acetaminophen 325 mg tablet 325 mg feeding tube Q6H WA N fever 04/25/24 04/25/24 or pain acetylcysteine 100 mg/mL (10 %) 2 ml feeding tube Q8H 04/25/24 04/25/24 solution amiodarone 200 mg tablet 200 mg feeding tube BID 03/2904/25/24 amlodipine 10 mg tablet 10 mg feeding tube QDAY 03/2904/25/24 apixaban 2.5 mg tablet (Eliquis) 2.5 mg feeding tube B ID 04/25/24 04/25/24 Held on 04/26/24. Instructions: In setting of GI bleed , untill you see PCP atorvastatin 80 mg tablet 80 mg feeding tube HS 04/25/24 bisacodyl 5 mg tablet,delayed 5 mg feeding tube Q6H WA N 04/25/24 04/25/24 release (Gentle Laxative constipation (bisacodyl)) insulin regular human 100 unit/mL 1 sliding scale dose subcut Q6H 04/25/24 04/25/24 (3 mL) subcutaneous pen (Novolin R FlexPen) ipratropium 0.5 mg-albuterol 3 mg 3 ml inhalation Q8H PRN shortness 04/25/24 04/25/24 (2.5 mg base)/3 mL nebulization of breath soln lactulose 10 gram/15 mL oral 10 g feeding tube Q6H 04/25/24 solution (Enulose) metoprolol tartrate 25 mg tablet 25 mg feeding tube Q1 2H 04/25/24 04/25/24 Previous Rx's ?Medication ?Instructions ?Recorded amoxicillin 875 mg-potassium 1 tab PO BID #14 tabs clavulanate 125 mg tablet Allergies Allergy/AdvReac Type Severity Reaction Status Date / Time No Known Allergies Allergy Verified 04/13/24 19:30 Review of Systems Review of Systems ROS Unobtainable: unobtainable due to mental status and unobtainable due to medical condition ED Exam Narrative Physical exam: VITAL SIGNS: Reviewed. GENERAL APPEARANCE: Open eyes spontaneously, nonverbal no acute distress, HEAD AND FACE: Non-traumatic. ENT: PERRL, pink conjunctivitis, eyelid no trauma, Mucous membrane moist. NECK: Supple, trach intact, attached to ventilator CHEST: Asymmetric, + right lung rales, no wheezing, no ronchi, no stridor, no breath sounds left HEART: Regular rate, regular rhythm, no murmur, no gallops. ABDOMEN: Soft, positive bowel sounds, nondistended, no guarding, PEG tube intact, no rebound, no masses, RECTAL: Deferred. GENITAL: Hector catheter intact NEUROLOGICAL: Spontaneous upper and lower extremity minimal movement MUSCULOSKELETAL: low back nontender, full range of motion. EXTREMITIES: Atrophied, contracted, limited range of motion. SKIN: Color pink, dry, no rash, no lacerations, no abrasions, no contusions. LYMPHATICS: Deferred. Course Quality Measures none Orders Category Date Time Status Bedside COVID-19 Antigen Test NOW Care 05/19/24 08:22 Active Bedside Influenza A&B Antigen Test NOW Care 05/19/24 08:22 Completed COVID-19 Screening Questionnaire NOW Care 05/19/24 13:[address] Screening NOW Care 05/19/24 10:30 Active Decision to Admit X1 Care 05/19/24 13:46 Completed EKG (ED ONLY) *Do not use* NOW Care 05/19/24 07:55 Completed Hector [Urinary Catheter, Remove] ONCE Care 05/19/24 08:58 Active Hector [Urinary Catheter] QS Care 05/19/24 08:[address] chest w con SEPSIS PROTOCOL Stat Exams 05/19/24 10:30 Completed EKG (ED Only) Stat Exams 05/19/24 07:55 Draft XR chest 1V Stat Exams 05/19/24 08:21 Completed Blood Culture (Lab) Stat Lab 05/19/24 09:35 Received CBC Stat Lab 05/19/24 09:35 Completed CMP [Comprehensive Metabolic Panel] Stat Lab 05/19/24 09:35 Completed Lactate (Lactic Acid) Stat Lab 05/19/24 09:35 Completed Lactic Acid, 3 HR Stat Lab 05/19/24 13:31 Completed Partial Thromboplastin Time Stat Lab 05/19/24 09:35 Completed Procalcitonin Stat Lab 05/19/24 09:35 Completed Prothrombin Time with INR Stat Lab 05/19/24 09:35 Completed Troponin I Stat Lab 05/19/24 09:35 Completed Urinalysis Stat Lab 05/19/24 09:32 Completed Acetaminophen Viviana [Tylenol Viviana] Med 05/19/24 08:17 Discontinued 650 mg GT X1 ONE Ibuprofen Susp [Motrin Susp] Med 05/19/24 08:17 Discontinued 600 mg GT X1 ONE Piper/Tazo Inj [Zosyn Inj] 3.375 gm Med 05/19/24 10:26 Discontinued SODIUM CHLORIDE 0.9% (Popper) [NS 0.9% (Popper)] 50 ml IV X1 Sodium Chloride 0.9% 1000 ml [Ns] 1,000 ml Med 05/19/24 08:17 Discontinued IV 999 mls/hr Sodium Chloride 0.9% 1000 ml [Ns] 1,000 ml Med 05/19/24 10:26 Discontinued IV 999 mls/hr Vancomycin Inj 1,000 mg Med 05/19/24 10:27 Discontinued Sodium Chloride 0.9% 250 ml [Ns] 250 ml IV X1 Oxygen Delivery NOW RT 05/19/24 12:08 Active Vital Signs Vital signs: Vital Signs Temperature 101.0 F H 05/19/24 07:51 Pulse Rate 121 H 05/19/24 07:51 Respiratory Rate 31 H 05/19/24 07:51 Blood Pressure 141/100 H 05/19/24 07:51 Pulse Oximetry (%) 95 05/19/24 07:51 Oxygen Delivery Method Blow-by 05/19/24 07:51 Shortness of Breath / Dyspnea [facility] Narrative [facility] Narrative:: 83-year-old Hmong female with past medical history of CVA s/p chronic trach and PEG, seizure disorder, A-fib, hypertension, type 2 diabetes who was brought to the ED from subacute today due to fevers since yesterday. Patient is nonverbal. Was seen here yesterday and was sent back to the facility. Patient was sent back to us today for worsening pleural effusion on the left. No other pertinent information can be extracted at this time. Sepsis alert was initiated right away EKG as interpreted by me showed sinus tachycardia, ventricular rate of 1 1 6 bpm, no ST segment elevation depression noted. Patient WBC count was noted to be 16.6. Pro-Saul was noted to be 8.52, lactic acid was noted initially to be 2.8. CT scan of the chest showed Significant thyromegaly with multiple thyroid nodules Large bilateral pleural effusions Atelectasis and pneumonia left lung especially left lower lobe Mild pneumonia right base Patient was given IV Vanco and IV Zosyn. Case discussed with hospitalist, who admitted the patient. Patient data External records reviewed:: [facility] previous records and None Clinical information provided by:: other (specify) Social determinants that could affect healthcare access:: none Patient has the following chronic illnesses:: CVA, chronic trach, PEG, seizure disorder A-fib, hypertension type 2 diabetes How is presenting disease/condition affected by chronic disease/condition?: exacerbated by Evaluation data The following diagnostics were reviewed and interpreted by me:: lab results, radiology exam(s) and EKG tracing(s) Lab and/or radiology exams considered but not ordered:: None Interpretation Summary: See results in MDM Medications / Prescriptions Medications or Prescriptions considered but not ordered:: None Medication administrations:: Medication Administration History Acetaminophen (Acetaminophen Viviana 325 Mg/10 Ml Udc) 650 mg GT Q6HR PRN PRN Reason: Pain Or Fever > 100.3 Stop: 06/18/24 14:45 Hydrocodone Bitart/Acetaminophen (Hydrocodone/Apap 5/325 Tablet) 1 tab GT Q4HR PRN PRN Reason: PAIN SCALE 4-10(Mod-Sev Stop: 05/24/24 14:28 Acetylcysteine (Acetylcysteine Rt Viviana 10% 4 Ml Nebu) 2 ml GT Q8HR AMARJIT Stop: 06/18/24 16:44 Last Admin: 05/19/24 16:45 Dose: 2 ml Documented By: VELMA Comments: VERIFIED WITH PHARMACY; MED TO BE GIVEN THROUGH PT'S GTUBE. Albuterol/Ipratropium (Albuterol/Ipratropium (Duoneb) Rt Viviana 3 Ml Nebu) 3 ml INH Q6HRRT AMARJIT Stop: 06/18/24 18:59 Last Admin: 05/19/24 19:02 Dose: 3 ml Documented By: SUBHASH Amiodarone HCl (Amiodarone Hcl 200 Mg Tablet) 200 mg GT DAILY AMARJIT Stop: 06/19/24 08:59 Atorvastatin Calcium (Atorvastatin Calcium 20 Mg Tablet) 40 mg GT HS [facility] Stop: 06/18/24 20:59 Dextrose (Dextrose 50%-Water Inj 50 Ml Syringe) 50 ml IV Q15MIN PRN PRN Reason: BG <50 OR BG <70 & pt unresponsive Stop: 06/18/24 14:49 Glucagon (Glucagon Inj 1 Mg Vial) 1 mg IM Q15MIN PRN PRN Reason: BG <70, and no IV access Piperacillin Sod/Tazobactam (Sod 3.375 gm/ Sodium Chloride) 50 mls @ 12.5 mls/hr IV Q8HR AMARJIT Stop: 05/26/24 21:59 Vancomycin/Sodium Chloride (Vancomycin/Ns 750 Mg Ivpb) 750 mg in 150 mls @ 120 mls/hr IV Q12H [facility] Stop: 05/26/24 21:59 Insulin Human Lispro (Insulin Lispro (Admelog) 1 Unit/0.01 Ml Unit) 0 unit SC Q6HR AMARJIT; Protocol Stop: 06/18/24 17:59 Last Admin: 05/19/24 18:28 Dose: Not Given Documented By: MAU Non-Admin Reason: Per Protocol Lactulose (Lactulose Syrup 20 Gm/30 Ml Udc) 10 gm GT DAILY PRN; Protocol PRN Reason: Constipation Stop: 06/19/24 08:59 Metoprolol Tartrate (Metoprolol Tartrate 25 Mg Tablet) 25 mg GT BID [facility] Stop: 06/18/24 20:59 Ondansetron HCl (Ondansetron Inj 2 Mg/Ml Inj 2 Ml) 4 mg IV Q6H PRN; Protocol PRN Reason: NAUSEA OR VOMITING Stop: 06/18/24 14:23 Pantoprazole Sodium (Pantoprazole Inj 40 Mg Vial) 40 mg IVP QDAY AMARJIT Stop: 06/18/24 14:29 Last Admin: 05/19/24 15:11 Dose: 40 mg Documented By: Pharmacy Consult (Vancomycin Pharmacy To Dose 1 Each Each) 1 each IV QDAY PRN PRN Reason: PROTOCOL Stop: 06/19/24 08:59 Sennosides (Senna Tablet) 1 tab GT QDAY AMARJIT; Protocol Stop: 06/19/24 08:59 Discontinued Medications Acetaminophen (Acetaminophen Viviana 325 Mg/10 Ml Udc) 650 mg GT X1 ONE Stop: 05/19/24 08:18 Last Admin: 05/19/24 08:38 Dose: 650 mg Documented By: Acetylcysteine (Acetylcysteine Rt 10% 10 Ml Nebu) 2 ml GT Q8HR AMARJIT Stop: 06/18/24 21:59 Acetylcysteine (Acetylcysteine Rt 10% 10 Ml Nebu) 2 ml GT Q6HRRT AMARJIT Stop: 06/18/24 18:59 Acetylcysteine (Acetylcysteine Rt 10% 10 Ml Nebu) 2 ml GT Q8HR AMARJIT Stop: 06/18/24 15:29 Acetylcysteine (Acetylcysteine Rt 10% 10 Ml Nebu) 2 ml GT Q8HR AMARJIT Stop: 06/18/24 15:29 Last Admin: 05/19/24 16:44 Dose: Not Given Documented By: Non-Admin Reason: Discontinued Sodium Chloride (Ns) 1,000 mls @ 999 mls/hr IV .Q1H1M ONE Stop: 05/19/24 09:17 Last Infusion: 05/19/24 09:38 Dose: Infused Documented By: Admin: 05/19/24 08:35 Dose: 999 mls/hr Documented By: Piperacillin Sod/Tazobactam (Sod 3.375 gm/ Sodium Chloride) 50 mls @ 100 mls/hr IV X1 ONE Stop: 05/19/24 10:55 Last Infusion: 05/19/24 11:27 Dose: Infused Documented By: Admin: 05/19/24 10:39 Dose: 100 mls/hr Documented By: Sodium Chloride (Ns) 1,000 mls @ 999 mls/hr IV .Q1H1M ONE Stop: 05/19/24 11:26 Last Infusion: 05/19/24 12:31 Dose: Infused Documented By: Admin: 05/19/24 10:35 Dose: 999 mls/hr Documented By: GM Vancomycin HCl 1,000 mg/ (Sodium Chloride) 250 mls @ 150 mls/hr IV X1 ONE Stop: 05/19/24 12:06 Last Infusion: 05/19/24 13:30 Dose: Infused Documented By: Admin: 05/19/24 11:35 Dose: 150 mls/hr Documented By: GM Piperacillin Sod/Tazobactam (Sod 3.375 gm/ Sodium Chloride) 50 mls @ 100 mls/hr IV X1 ONE Stop: 05/19/24 15:14 Last Infusion: 05/19/24 16:00 Dose: Infused Documented By: Admin: 05/19/24 15:13 Dose: 100 mls/hr Documented By: Dextrose (D10w 1000 Ml) 1,000 mls @ 100 mls/hr IV .Q10H AMARJIT Stop: 05/20/24 00:59 Last Admin: 05/19/24 15:09 Dose: Not Given Documented By: Non-Admin Reason: Discontinued Ibuprofen (Ibuprofen Susp 100 Mg/5 Ml Udc) 600 mg GT X1 ONE Stop: 05/19/24 08:18 Last Admin: 05/19/24 08:38 Dose: 600 mg Documented By: Sodium Chloride (Sodium Chloride Rt 10% 15 Ml Nebu) 5 ml INH X1 ONE Stop: 05/19/24 16:12 IV Zosyn and IV Vanco Consultations Consultation(s) initiated? (list below): No Diagnosis Shortness of Breath Differential Diagnosis: congestive heart failure, pulmonary embolism and other (Bilateral pleural effusion pneumonia, sepsis) Most likely diagnosis given after review of the tests above:: Sepsis, bilateral pleural effusion pneumonia Admission Indicated Admission indicated?: indicated Admission Request Was there a request for admission?: Yes Admission Attestation Admission request attestation: Discussed case with [Dr Judd] from Hospitalist service regarding admission. Discussed patients ED course, exam findings, labs, and radiology results. The Hospitalist [agrees] to accept the patient for admission. Disposition Plan Disposition Plan: Discharge Discharge Attestation Discharge Attestation: The patient and all family members were given an opportunity to ask questions and understood the discharge instructions. Discharge instructions specifically effects, indications for sooner follow up or return to the emergency department, and the expected course of current diagnosis. Patient condition: Stable Discharge Plan Plan Patient Disposition: Admit Acute Care w/in Hospital Problem List Clinical Impression: Sepsis, Pneumonia, Bilateral pleural effusion
[2024-05-19 12:40] LABS: Reflex Lactate? Y
[2024-05-19 13:35] LABS: Lactic Acid, 3 HR 0.8 mMol/L (0.4-2.0)
[2024-05-19 14:15] LABS: INR 1.3 (0.9-1.3); Partial Thromboplastin Time 38.9 Seconds (22.0-36.0); Prothrombin Time 13.6 Seconds (9.0-12.2)
--- NOTE | 2024-05-19 14:24 | ESHP_ITS ---
<Statement entered by Pelon Judd MD - 05/19/24 17:06> I discussed with and supervised the photography intern physician involved in the care of this patient. Patient assessment and plan was discussed with entire medicine team, including my attending. I agree with the assessment and plan as documented by photography intern doctor. Patient care was discussed with my attending physician Dr. Rei Judd, PGY-2 Documentation for date of: 05/19/24 HPI History of Present Illness Chief complaint: Fever History of present illness: HPI: Patient unable to verbalize. Attempted to contact next of kin listed on file, [facility] but was unsuccessful. Majority of history obtained from chart review. 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 Patient's previously presented to the ED yesterday from the subacute for recurrent fevers. She was treated with 1 dose of Zosyn 4.5 g IV and subsequently discharged back to the subacute. Today patient had persistent fevers, tachycardia and tachypnea and again presented to the emergency department. Of note patient was previously admitted from 04/21 to 04/27 and treated for acute respiratory failure with hypoxia secondary to community-acquired pneumonia. During her hospitalization she had a left lung thorascentesis performed for a large pleural effusion which drained 1200 cc of fluid. Fluid analysis was not done at the time. ED course: BP 127/68, pulse 82, RR 27, temp 96.8, SpO2 97% on 8 L via blow-by Labs significant for Hb 7.9, HCT 23.9, WBC 18.6, PLT 302, LA 2.8??>0.8, Trop 0.077, Pro-Saul 8.52. Chest x-ray significant for extensive pneumonia and atelectasis left lung. Chest CT significant for thyromegaly with multiple thyroid nodules, large bilateral pleural effusions, atelectasis and pneumonia left lung base. Mild pneumonia right lung base In the ED patient received 2 L normal saline IV fluid bolus, acetaminophen 650 Mg GT x 1, ibuprofen 600 Mg GT x 1, Zosyn 3.375 g IV x 1, vancomycin 250 Mg IV x 1. Patient will be admitted for acute respiratory failure with hypoxia secondary to large left-sided pleural effusion in the setting of community-acquired pneumonia. Review of Systems Review of Systems ROS Unobtainable: unobtainable due to medical condition Past Medical History Past Medical History Comments PMH COMMENT: 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 Seizure disorder Atrial fibrillation?paroxysmal Primary hypertension Insulin-dependent diabetes mellitus type 2 Medication list: Atorvastatin 80 Mg gt at bedtime Acetaminophen 325 mg DuoNebs Amiodarone 200 Mg GT twice daily Amlodipine 10 Mg GT daily Acetylcysteine 100 Mg/mL 2ml via feeding tube every 8 Insulin (sliding scale Metoprolol tartrate 25 Mg GT Lactulose 10 g every 6 hourly- Past surgical history: Unknown Allergies: NKFDA Social history: Unable to be obtained unknown Family History: Unknown Exam Vital Signs Temp Pulse Resp BP Pulse Ox O2 Del Method O2 Flow Rate 96.8 F 82 27 H 127/68 97 Blow-by 8 05/19/24 13:36 05/19/24 13:36 05/19/24 13:36 05/19/24 13:36 05/19/24 13:36 05/19/24 13:36 05/19/24 13:36 FiO2 40 05/19/24 13:36 Narrative Exam Constitutional Patient on O2 via trach on blow-by. Responsive to name HEENT Right pupil constricted nonreactive to light, left pupil reactive to light. Respiratory Chest normal on inspection and scattered wheeze, crackles and decreased air entry in all lung alfaro Cardiovascular S1 and S2 audible, RRR. No murmurs carotid bruit. No gross JVD. Abdominal Soft and non tender to palpation in all quadrants. PEG tube noted. Exit site clean BS + Genitourinary No bladder tenderness, no flank pain. Normal to palpation Musculoskeletal Increased tone in lower extremities. No lower extremity swollen Results: Labs 05/20/24 04:57 05/20/24 07:48 Labs: Short CBC 05/19/24 Range/Units 09:35 WBC 18.6 H (3.6-11.0) Thou/mm3 Hgb 7.9 L (12.0-16.0) g/dL Hct 23.9 L (36.0-46.0) % Plt Count 302 D (140-440) Thou/mm3 BMP 05/19/24 09:35 Sodium 132 L Potassium 4.4 Chloride 97 L Carbon Dioxide 25.8 BUN 51 H Creatinine 0.7 Glucose 161 H Calcium 7.7 L Cardiac Enzymes 05/19/24 Range/Units 09:35 Troponin I 0.077 H* (0.0-0.045) ng/mL Liver Function 05/19/24 Range/Units 09:35 Total Bilirubin 0.4 (0.3-1.2) mg/dL AST 121 H (0-34) U/L ALT 166 H (10-49) U/L Alkaline Phosphatase 106 (46-116) U/L Albumin 2.5 L (3.4-4.8) gm/dL Urine 05/19/24 Range/Units 09:32 Urine Color Yellow (Lt Yel-Yel) Urine Clarity Turbid A (Clear/Hazy) Urine pH 7.0 (5.0-7.0) Ur Specific [place] 1.018 (1.001-1.035) Urine Protein 3+ A (Neg - Trace) Urine Glucose (UA) Negative (Negative) Quality Measures Quality Measures VTE prophylaxis Advance care planning discussed with:: other (POLST) Medications Home Medications and Allergies Home Medications ?Medication ?Instructions ?Recorded ?Confirmed ?Type acetaminophen 325 mg tablet 325 mg feeding tube Q6H AR N fever 04/25/24 05/20/24 History or pain acetylcysteine 100 mg/mL (10 %) 2 ml feeding tube Q8H 04/25/24 05/20/24 History solution amiodarone 200 mg tablet 200 mg feeding tube DAILY 05/20/24 History amlodipine 10 mg tablet 10 mg feeding tube QDAY 03/2905/20/24 History apixaban 2.5 mg tablet (Eliquis) 2.5 mg feeding tube B ID 04/25/24 05/20/24 History Held on 04/26/24. Instructions: In setting of GI bleed , untill you see PCP atorvastatin 80 mg tablet 80 mg feeding tube HS 05/20/24 History bisacodyl 5 mg tablet,delayed 5 mg feeding tube Q6H AR N 04/25/24 05/20/24 History release (Gentle Laxative constipation (bisacodyl)) insulin regular human 100 unit/mL 1 sliding scale dose subcut Q6H 04/25/24 05/20/24 History (3 mL) subcutaneous pen (Novolin R FlexPen) ipratropium 0.5 mg-albuterol 3 mg 3 ml inhalation Q6H PRN shortness 04/25/24 05/20/24 History (2.5 mg base)/3 mL nebulization of breath soln lactulose 10 gram/15 mL oral 10 g feeding tube Q6H 05/20/24 History solution (Enulose) metoprolol tartrate 25 mg tablet 25 mg feeding tube Q1 2H 04/25/24 05/20/24 History calcium 600 mg (as 1 cap PO DAILY 05/20/2404/29 History carbonate)-vitamin D3 5 mcg (200 unit) capsule (Calcium 600 + D(3)) sennosides 8.6 mg tablet 8.6 mg feeding tube BID 04/2905/20/24 History (Black-Draught Lax-Senna) Allergies Allergy/AdvReac Type Severity Reaction Status Date / Time No Known Allergies Allergy Verified 04/13/24 19:30 Visit Medications Discontinued Medications Acetaminophen (Acetaminophen Viviana 325 Mg/10 Ml Udc) 650 mg GT X1 ONE Stop: 05/19/24 08:18 Last Admin: 05/19/24 08:38 Dose: 650 mg Sodium Chloride (Ns) 1,000 mls @ 999 mls/hr IV .Q1H1M ONE Stop: 05/19/24 09:17 Last Infusion: 05/19/24 09:38 Dose: Infused Piperacillin Sod/Tazobactam (Sod 3.375 gm/ Sodium Chloride) 50 mls @ 100 mls/hr IV X1 ONE Stop: 05/19/24 10:55 Last Infusion: 05/19/24 11:27 Dose: Infused Sodium Chloride (Ns) 1,000 mls @ 999 mls/hr IV .Q1H1M ONE Stop: 05/19/24 11:26 Last Infusion: 05/19/24 12:31 Dose: Infused Vancomycin HCl 1,000 mg/ (Sodium Chloride) 250 mls @ 150 mls/hr IV X1 ONE Stop: 05/19/24 12:06 Last Infusion: 05/19/24 13:30 Dose: Infused Ibuprofen (Ibuprofen Susp 100 Mg/5 Ml Udc) 600 mg GT X1 ONE Stop: 05/19/24 08:18 Last Admin: 05/19/24 08:38 Dose: 600 mg Assessment & Plan Plan Patient is an 83-year-old [facility] [place] female, 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 Patient will be admitted for acute respiratory failure with hypoxia secondary to large left-sided pleural effusion in the setting of community-acquired pneumonia. Acute respiratory failure with hypoxia Community-acquired versus hospital-acquired versus aspiration pneumonia Large Left sided Pleural effusion SIRS 4/4 Chronic Respiratory Failure Lactic acidosis?resolving Medical history is unclear. Patient was recently accepted at subacute unit. She is chronically pegged and trached. Apparently she has been spiking fevers of 101 over the last few days. Met 4/4 SIRS criteria with fever, tachypnea, tachycardia and leukocytosis. Chest x-ray significant for extensive pneumonia and atelectasis left lung. Chest CT significant for thyromegaly with multiple thyroid nodules, large bilateral pleural effusions, atelectasis and pneumonia left lung base. Mild pneumonia right lung base Lactic acid 2.8 down trended to 0.8 PSI/PORT : 163 points. Risk class V. Hospitalization recommended based on Plan: ? Pending MRSA nares ? Pending blood and urine cultures ? RSV and sputum culture ordered ? DuoNebs Q6 hourly ? Zosyn 4.5 g IV Q6 hourly for possible aspiration pneumonia started on [05/19? ? Vancomycin IV pharmacy to dose for MRSA coverage started on [05/19? ? For possible chest tube versus thoracentesis Primary HTN A-fib, likely paroxysmal NSTEMI type 1 vs type 2 HLD EKG shows sinus tachycardia. Troponin normal. HASBLED 4 indicates high risk for major bleed. [id number] indicates 17% stroke/TIA/embolism. Troponin 0.077 Plan: ? Resumed home medication amiodarone 200 Mg GT daily for rate control ? Resume home medication metoprolol tartrate 25 Mg GT twice daily ? Eliquis on hold for now in anticipation for possible procedure Insulin-dependent diabetes mellitus type 2 [6.4% Home medication insulin sliding scale Plan: ? Insulin sliding scale Hx of seizure disorder Not on home ANTIEPILEPTICS. No signs of seizures. ? Seizure precaution Deep sacral ulcer ? Wound care Chronic constipation Likely secondary to CVA. Patient on chronic LAXATIVES. ? Continue LACTULOSE 10 mg GT prn ? Continue senna daily Chronic PEG tube PEG tube appears intact without signs of infection. Plan: ? Tube feeds ? Registered dietitian referral Hx of CVA History of large cerebral vessel occlusion. Chronically trached and pegged. Opens eyes spontaneously. Does not follow command. Health maintenance: Disposition: IV antibiotics. Nebulizations. Possible thoracentesis versus chest tube Diet: Tube feeds Lines: pIVs GI Prophylaxis: Pantoprazole IV Thrombo Prophylaxis: SCDs Code status: DNR Plan of care discussed with Attending Dr. Minaya and PGY2 Dr. Binta Greene MD PGY 1 Attending Provider Attestation/Addendum I, Marlena Minaya, DO, attest that I was physically present for the tapia portions of the service and evaluated the patient with the resident and I reviewed and discussed the case with the resident and agree with the resident's findings and plans of care as documented above Patient is an 83-year-old female with past medical history of multiple CVAs, failure to thrive requiring trach and PEG, seizure, A-fib on chronic anticoagulation, hypertension, type II IDDM who was brought to the ED from subacute facility due to recurrent fever. Patient was recently seen in the ED yesterday during which she was given IV antibiotics and found to have a large left pleural effusion. Due to lack of IR services, patient was scheduled for thoracentesis for Tuesday. However, patient continued to have fevers. She is currently on blow-by requiring increased O2 settings of 8 L from 6. She is noted to have an elevated lactic acid of 2.8. CT chest was done showing large b/l pleural effusions, mild pneumonia in right base, significant thyromegaly with multiple thyroid nodules. CXR shows prominent heart failure and extensive pneumonia/ edema in left lung alfaro with large layered left pleural effusion. Patient last received eliquis last night. Will hold off anticoagulation. Patient had previously been admitted and AC was discontinued due to possible GIB. Will admit to telemetry for further workup and management of acute hypoxic respiratory failure 2/2 large b/l pleural effusions and pneumonia. Will f/u with fluid studies and start empiric IV abx. Patient has POLST form that shows that patient is DNR with selective treatment. Attempts made to call family, but unsucessful. Possible thorascentesis in AM due to recent eliquis administration. Patient is contracted on exam, able to track with eyes and will grimace to verbal and tactile stimuli. Minimal breath sounds in left lung base. Coarse breath sounds noted at left lung apex and right lung alfaro.
[2024-05-19] MEDS: PANTOPRAZOLE INJ 40 MG VIAL IVP (15:11)
--- NOTE | 2024-05-19 15:43 | PC.DIETICIAN ---
Nutrition prescription: Glucerna 1.2 at 30 ml/hr via PEG tube by pump. Advance 10 ml every 8 hrs to goal rate of 50 ml/hr x 24 hrs. If no IV fluids, water flushes of 25 ml/hr (or per MD).
[2024-05-19] MEDS: ACETYLCYSTEINE RT SOL 10% 4 ML NEBU 2 ML GT (16:45)
[2024-05-19] MEDS: ALBUTEROL/IPRATROPIUM (Duoneb) RT SOL 3 ML NEBU INH (19:02)
[2024-05-19] MEDS: ATORVASTATIN CALCIUM 20 MG TABLET 40 MG GT (20:52)
[2024-05-19] MEDS: METOPROLOL TARTRATE 25 MG TABLET GT (20:52)
[2024-05-19] MEDS: VANCOMYCIN/NS 750 MG IVPB 750 MG/150 ML BAG 120 MG IV (21:35)
[2024-05-20] VITALS (17 sets, daily range): BP systolic 109–141; BP diastolic 60–88; PULSE 64–112; RESP 19–30; TEMP 36.8–38; O2SAT 93–100
[2024-05-20] LABS: Respiratory Syncytial Virus Ag Negative (Negative)
[2024-05-20] MEDS: ACETYLCYSTEINE RT SOL 10% 4 ML NEBU 2 ML GT (00:15)
[2024-05-20] MEDS: INSULIN LISPRO (AdmeLOG) 1 UNIT/0.01 ML UNIT SC ×3 (00:25→17:32)
[2024-05-20] MEDS: ALBUTEROL/IPRATROPIUM (Duoneb) RT SOL 3 ML NEBU INH ×3 (01:19→18:27)
--- NOTE | 2024-05-20 03:55 | PC.RT ---
sod chrl not needed for sputum sample. Sample obtained and taken to lab.
[2024-05-20] MEDS: PIPER/TAZO INJ 3.375 GM in SODIUM CHLORIDE 0.9% (Popper) 50 ML IV ×3 (05:26→21:26)
[2024-05-20 06:14] LABS: Basophils % (Auto) 0 % (0-2.5); Eosinophils % (Auto) 0 % (0-10); Hematocrit 24.9 % (36.0-46.0); Immature Granulocytes % (Auto) 1 % (0-0); Immature Granulocytes Auto 0.08 Thou/mm3 (0.00-0.00); Lymphocytes # (Auto) 0.6 Thou/mm3 (1.0-4.8); Lymphocytes % (Auto) 4 % (10-50); Mean Corpuscular HGB Conc 33.3 g/dl (31.0-37.0); Mean Corpuscular Hemoglobin 29.1 pg (25.0-35.0); Mean Corpuscular Volume 87 fL (80-100); Monocytes # (Auto) 1.4 Thou/mm3 (0.0-0.8); Monocytes % (Auto) 8 % (0-12); Neutrophils # (Auto) 14.3 Thou/mm3 (1.8-7.7); Neutrophils % (Auto) 87 % (37-80); Nucleated Red Blood Cell % 0 /100 WBC (0); Platelet Count 342 Thou/mm3 (140-440); RDW Standard Deviation 47.6 fL (36.4-46.3); Red Blood Count 2.85 Miln/mm3 (4.00-5.20); White Blood Count 16.4 Thou/mm3 (3.6-11.0)
[2024-05-20 06:17] LABS: Hemoglobin 8.3 g/dL (12.0-16.0)
[2024-05-20 06:20] LABS: Alanine Aminotransferase 152 U/L (10-49); Albumin, Serum 2.8 gm/dL (3.4-4.8); Albumin/Globulin Ratio 0.9 (1.2-2.2); Alkaline Phosphatase 115 U/L (46-116); Anion Gap 8 (7-16); Aspartate Amino Transferase 94 U/L (0-34); BUN/Creatinine Ratio 60 Ratio (12-20); Bilirubin,Total 0.3 mg/dL (0.3-1.2); Blood Urea Nitrogen 42 mg/dL (9-23); Calcium 7.9 mg/dL (8.3-10.6); Calcium (Corrected) 8.9 mg/dL (8.5-10.1); Carbon Dioxide 26.8 mMol/L (20.0-31.0); Chloride 100 mMol/L (98-107); Cholesterol 78 mg/dL (132-200); Creatinine (Component) 0.7 mg/dL (0.6-1.3); Glucose 125 mg/dL (74-106); HDL Cholesterol 26 mg/dL (40-60); LDL Cholesterol,Calculated 34 mg/dL (0-130); Magnesium 2.3 mg/dL (1.6-2.6); Osmolality,Calculated 281 (275-295); Phosphorous 3.4 mg/dL (2.4-5.1); Potassium 4.1 mMol/L (3.4-5.1); Sodium 135 mMol/L (136-145); Total Protein 5.8 gm/dL (5.7-8.2); Triglycerides 89 mg/dL (30-150); eGFR > 60 See Note
--- NOTE | 2024-05-20 06:35 | PC.NURSE ---
Called to patients room, oxygen at 80% on 8 L / 40 % Blow by with trach. RR 40, patient struggling with each respiration. Rapid response called. Temp 100.1, BP 142/77. Orders to hold tube feeding. ABG and x ray ordered. Oxygen increased to 10L / 100%, at 94 %. Will monitor patient further.
--- NOTE | 2024-05-20 06:41 | XR_ITS ---
Examination: AP chest single view Technique : AP portable upright chest single view Exam date: May 17, 2024 0659 hrs. Comparison May 19, 2024 Indications: Shortness of breath. Rapid response today Findings: Better aeration in the left lung compared to the May 19, 2004 study Prominent heart failure with enlargement cardiac contour prominent vascular congestion central vascular engorgement and perihilar edema Consider superimposed bilateral pneumonia Large layering left pleural effusion Tracheostomy tube tip 6.6 cm above segundo Impression: Prominent heart failure Extensive pneumonia and/or edema throughout the lung alfaro with large layered left pleural effusion
[2024-05-20 07:07] LABS: Base Excess 3 (-3-3); HCO3 28 mEq/L (20-26); Inspired Oxygen, FIO2 100 %; PCO2 45 mmHg (32.0-48.0)
[2024-05-20 07:08] LABS: Allen Test Performed/OK; O2 Saturation 94 % (91-98); Puncture Site Right Radial
--- NOTE | 2024-05-20 07:08 | PD.RESEVENT ---
Documentation for date of: 05/20/24 Event Note Event Note: Around 6:30 AM, RR was called for patient was found desatting in the 80s. On arrival, she was on blow-by at 40% FiO2, satting 99%. Heart rate was 104. Patient did not appear symptomatic. Lung exam showed coarse breath sounds on the left. Labs from this morning were reviewed and did not show any significant changes. CXR and ABGs were ordered. At the time he left, patient was satting 99%, heart rate was in the 90s. It was stable. Patient case was discussed with attending, Sreedhar Disla MD. Ed Solorio DO PGYI
[2024-05-20 07:10] LABS: PO2 44 mmHg (83-108)
--- NOTE | 2024-05-20 07:22 | PC.NURSE ---
Rapid response ended at 0644. RT in room with patient using BVM. Pt pale, and diaphoretic. Increased work of breathing despite BVM by RT. A second Rapid Response called at 0722. Vitals during Rapid 98.8 temp, 141/79 bp, 108 HR, 33 RR, 100 O2 on 10L at 100%.
--- NOTE | 2024-05-20 07:23 | EKG_ITS ---
[facility] Test Date: 2024-05-20 Pat Name: DAJUAN PAZ [facility] Gender: Female [employer]: ELIANA : 1940 Requested By: Salvador Greene Order Number: [id number] Reading MD: Salvador Greene Measurements Intervals [place] Rate: 107 P: 30 CO: 154 QRS: 28 QRSD: 100 T: 28 QT: 374 QTc: 500 Interpretive Statements SINUS TACHYCARDIA SEPTAL MYOCARDIAL INFARCTION , OF INDETERMINATE AGE Compared to ECG 05/19/2024 08:01:47 Left-axis deviation no longer present Right bundle-branch block no longer present Myocardial infarct finding still present /store/S0/[id number]
--- NOTE | 2024-05-20 07:28 | ESPR_ITS ---
<Statement entered by Jared Baxter MD - 05/21/24 07:11> Agree with plan and examination finding on the note below. Patient seen and examined at bedside today. Labs and imaging reviewed. Patient care discussed with my attending Dr. Minaya and co-resident Dr. Greene. Documentation for date of: 05/20/24 Subjective Subjective Interval history: Patient was seen and examined at bedside this AM. Around 6:30 AM rapid response was called for hypoxia. Patient was saturating in the 70s on blow-by at 10 L, ABG and CXR were ordered. Patient tolerating tube feeds, adequate urine output and mentation is at baseline. Patient responsive to name and tracking with her eyes. ABG: pH 7.4, pCO2 45, pO2 44, HCO3 28 At around 7:30 AM another rapid response was called for diaphoresis and hypoxia. Patient was switched to mechanical ventilation from blow-by, EKG, troponin were ordered. Lasix 40 Mg IV x 1 and morphine 2 Mg IV x 1 were also ordered. Plan for therapeutic/diagnostic left thoracentesis today. Exam Vital Signs Temp Pulse Resp BP Pulse Ox O2 Del Method O2 Flow Rate 99.2 F 112 H 20 109/68 100 Blow-by 10 05/20/24 04:00 05/20/24 07:09 05/20/24 07:09 05/20/24 04:00 05/20/24 07:09 05/19/24 20:00 05/20/24 07:09 FiO2 40 05/20/24 07:09 Narrative Exam Constitutional Patient on O2 via trach on blow-by. Responsive to name HEENT Right pupil constricted nonreactive to light, left pupil reactive to light. Respiratory Chest normal on inspection and scattered wheeze, crackles and decreased air entry in all lung alfaro - improving Cardiovascular S1 and S2 audible, RRR. No murmurs carotid bruit. No gross JVD. Abdominal Soft and non tender to palpation in all quadrants. PEG tube noted. Exit site clean BS + Genitourinary No bladder tenderness, no flank pain. Normal to palpation Musculoskeletal Increased tone in lower extremities. No lower extremity swollen Objective Labs 05/20/24 04:57 05/20/24 07:48 Labs: Laboratory Results - last 24 hr 05/19/24 05/19/24 05/19/24 09:32 09:35 13:31 WBC 18.6 H RBC 2.75 L Hgb 7.9 L Hct 23.9 L MCV 87 MCH 28.7 MCHC 33.1 RDW Std Deviation 46.7 H Plt Count 302 D Neut % (Auto) 92 H Lymph % (Auto) 2 L Motley % (Auto) 6 Eos % (Auto) 0 Baso % (Auto) 0 Neut # (Auto) 17.2 H Lymph # (Auto) 0.3 L Motley # (Auto) 1.0 H Eos # (Auto) 0.0 Baso # (Auto) 0.1 Immature Gran # (Auto) 0.07 H Absolute Nucleated RBC 0.00 Immature Gran % 0 Nucleated RBC % 0 PT 13.6 H INR 1.3 APTT 38.9 H Puncture Site ABG pH ABG pCO2 ABG pO2 ABG HCO3 ABG O2 Saturation ABG Base Excess FiO2 Sodium 132 L Potassium 4.4 Chloride 97 L Carbon Dioxide 25.8 Anion Gap 9 BUN 51 H Creatinine 0.7 Estim Creat Clear Calc 45.8 L eGFR > 60 BUN/Creatinine Ratio 73 H Glucose 161 H Calculated Osmolality 281 Lactic Acid 2.8 H 0.8 Calcium 7.7 L Corrected Calcium 8.9 Phosphorus Magnesium Total Bilirubin 0.4 AST 121 H ALT 166 H Alkaline Phosphatase 106 Troponin I 0.077 H* Total Protein 5.3 L Albumin 2.5 L Globulin 2.8 Albumin/Globulin Ratio 0.9 L Triglycerides Cholesterol LDL Cholesterol, Calc HDL Cholesterol Cholesterol/HDL Ratio Procalcitonin 8.52 H Ur Collection Type Catheter Urine Color Yellow Urine Clarity Turbid A Urine pH 7.0 Ur Specific Central 1.018 Urine Protein 3+ A Urine Glucose (UA) Negative Urine Ketones Negative Urine Blood 2+ A Urine Nitrite Negative Urine Bilirubin Negative Urine Urobilinogen (Auto) Negative Ur Leukocyte Esterase Positive Urine RBC 68 H Urine WBC 22 H Ur Squamous Epith Cells < 1 Urine Bacteria None RSV Rapid 05/19/24 05/20/24 05/20/24 23:05 04:57 07:00 WBC 16.4 H RBC 2.85 L Hgb 8.3 L Hct 24.9 L MCV 87 MCH 29.1 MCHC 33.3 RDW Std Deviation 47.6 H Plt Count 342 D Neut % (Auto) 87 H Lymph % (Auto) 4 L Motley % (Auto) 8 Eos % (Auto) 0 Baso % (Auto) 0 Neut # (Auto) 14.3 H Lymph # (Auto) 0.6 L Motley # (Auto) 1.4 H Eos # (Auto) 0.0 Baso # (Auto) 0.0 Immature Gran # (Auto) 0.08 H Absolute Nucleated RBC 0.00 Immature Gran % 1 H Nucleated RBC % 0 PT INR APTT Puncture Site Right Radial ABG pH 7.40 ABG pCO2 45 ABG pO2 44 L* ABG HCO3 28 H ABG O2 Saturation 94 ABG Base Excess 3 FiO2 100 Sodium 135 L Potassium 4.1 Chloride 100 Carbon Dioxide 26.8 Anion Gap 8 BUN 42 H Creatinine 0.7 Estim Creat Clear Calc 46.0 L eGFR > 60 BUN/Creatinine Ratio 60 H Glucose 125 H Calculated Osmolality 281 Lactic Acid Calcium 7.9 L Corrected Calcium 8.9 Phosphorus 3.4 Magnesium 2.3 Total Bilirubin 0.3 AST 94 H ALT 152 H Alkaline Phosphatase 115 Troponin I Total Protein 5.8 Albumin 2.8 L Globulin 3.0 Albumin/Globulin Ratio 0.9 L Triglycerides 89 Cholesterol 78 L LDL Cholesterol, Calc 34 HDL Cholesterol 26 L Cholesterol/HDL Ratio 3.0 L Procalcitonin Ur Collection Type Urine Color Urine Clarity Urine pH Ur Specific Central Urine Protein Urine Glucose (UA) Urine Ketones Urine Blood Urine Nitrite Urine Bilirubin Urine Urobilinogen (Auto) Ur Leukocyte Esterase Urine RBC Urine WBC Ur Squamous Epith Cells Urine Bacteria RSV Rapid Negative ABG Interpretation ABG results: 05/20/24 07:00 ABG pH 7.40 ABG pCO2 45 ABG pO2 44 L* ABG HCO3 28 H ABG O2 Saturation 94 ABG Base Excess 3 Quality Measures Quality Measures none Advance care planning discussed with:: other (POLST) Assessment & Plan Assessment Current Active Medications: Generic Name Dose Route Start Last Admin Trade Name Freq PRN Reason Stop Dose Admin Acetaminophen 650 mg 05/19/24 14:46 Acetaminophen Viviana 325 Mg/10 Ml Udc GT 06/18/24 14:45 Q6HR PRN Pain Or Fever > 100.3 Hydrocodone Bitart/Acetaminophen 1 tab 05/19/24 14:29 Hydrocodone/Apap 5/325 Tablet GT 05/24/24 14:28 Q4HR PRN PAIN SCALE 4-10(Mod-Sev Acetylcysteine 2 ml 05/19/24 16:45 05/20/24 05:31 Acetylcysteine Rt Viviana 10% 4 Ml Nebu GT 06/18/24 16:44 Not Given Q8HR AMARJIT Albuterol/Ipratropium 3 ml 05/19/24 19:00 05/20/24 07:09 Albuterol/Ipratropium (Duoneb) Rt Viviana 3 Ml Nebu INH 06/18/24 18:59 3 ml Q6HRRT AMARJIT Administration Amiodarone HCl 200 mg 05/20/24 09:00 Amiodarone Hcl 200 Mg Tablet GT 06/19/24 08:59 DAILY AMARJIT Atorvastatin Calcium 40 mg 05/19/24 21:00 05/19/24 20:52 Atorvastatin Calcium 20 Mg Tablet GT 06/18/24 20:59 40 mg HS AMARJIT Administration Collagenase 0 gm 05/20/24 09:00 Collagenase Oint 30 Gm Tube TOP 06/19/24 08:59 BID AMARJIT Dextrose 50 ml 05/19/24 14:50 Dextrose 50%-Water Inj 50 Ml Syringe IV 06/18/24 14:49 Q15MIN PRN BG <50 OR BG <70 & pt unresponsive Glucagon 1 mg 05/19/24 14:50 Glucagon Inj 1 Mg Vial IM Q15MIN PRN BG <70, and no IV access Piperacillin Sod/Tazobactam 50 mls @ 12.5 mls/hr 05/19/24 22:00 05/20/24 05:26 Sod 3.375 gm/ Sodium Chloride IV 05/26/24 21:59 12.5 mls/hr Q8HR AMARJIT Administration Vancomycin/Sodium Chloride 750 mg in 150 mls @ 120 mls/hr 05/19/24 22:00 05/19/24 21:35 Vancomycin/Ns 750 Mg Ivpb IV 05/26/24 21:59 120 mls/hr Q12H AMARJIT Administration Insulin Human Lispro 0 unit 05/19/24 18:00 05/20/24 05:28 Insulin Lispro (Admelog) 1 Unit/0.01 Ml Unit SC 06/18/24 17:59 Not Given Q6HR AMARJIT Protocol Lactulose 10 gm 05/19/24 16:14 Lactulose Syrup 20 Gm/30 Ml Udc GT 06/19/24 08:59 DAILY PRN Constipation Protocol Metoprolol Tartrate 25 mg 05/19/24 21:00 05/19/24 20:52 Metoprolol Tartrate 25 Mg Tablet GT 06/18/24 20:59 25 mg BID AMARJIT Administration Ondansetron HCl 4 mg 05/19/24 14:24 Ondansetron Inj 2 Mg/Ml Inj 2 Ml IV 06/18/24 14:23 Q6H PRN NAUSEA OR VOMITING Protocol Pantoprazole Sodium 40 mg 05/19/24 14:30 05/19/24 15:11 Pantoprazole Inj 40 Mg Vial IVP 06/18/24 14:29 40 mg QDAY AMARJIT Administration Pharmacy Consult 1 each 05/20/24 09:00 Vancomycin Pharmacy To Dose 1 Each Each IV 06/19/24 08:59 QDAY PRN PROTOCOL Sennosides 1 tab 05/20/24 09:00 Senna Tablet GT 06/19/24 08:59 QDAY AMARJIT Protocol Plan Patient is an 83-year-old [facility] [place] female, 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 Patient will be admitted for acute respiratory failure with hypoxia secondary to large left-sided pleural effusion in the setting of community-acquired pneumonia. Acute on chronic respiratory failure with hypoxia Community-acquired versus hospital-acquired versus aspiration pneumonia Large Left sided Pleural effusion SIRS 4/4 - resolving Lactic acidosis?resolving Medical history is unclear. Patient was recently accepted at subacute unit. She is chronically pegged and trached. Apparently she has been spiking fevers of 101 over the last few days. Met 4/4 SIRS criteria with fever, tachypnea, tachycardia and leukocytosis. Chest x-ray significant for extensive pneumonia and atelectasis left lung. Repeat chest x-ray significant for extensive pneumonia/edema throughout all lung alfaro with large layering left pleural effusion. Chest CT significant for thyromegaly with multiple thyroid nodules, large bilateral pleural effusions, atelectasis and pneumonia left lung base. Mild pneumonia right lung base Lactic acid 2.8 down trended to 0.8 RSV negative Blood culture negative x 24 hours preliminary Pending urine culture PSI/PORT : 163 points. Risk class V. Hospitalization recommended based on risk Plan: ? Pending MRSA nares ? Pending urine cultures ? Pending sputum culture ordered ? Pleural fluid analysis ordered including cell count and Gram stain, amylase, protein, LDH, glucose, cell count and cytology. ? Continue DuoNebs Q6 hourly ? D2 Zosyn 4.5 g IV Q6 hourly for possible aspiration pneumonia started on [05/19? ? D2 vancomycin IV pharmacy to dose for MRSA coverage started on [05/19? ? For bedside therapeutic/diagnostic paracentesis today. Primary HTN A-fib, likely paroxysmal NSTEMI type 1 vs type 2 HLD HASBLED 4 indicates high risk for major bleed. [id number] indicates 17% stroke/TIA/embolism. Troponin 0.077 ---> 0.238 EKG significant for sinus tachycardia, rate 107. Q waves in septal leads. No acute ST changes. Increasing troponin likely due to stress from diaphoresis and hypoxia. Plan: ? Continue home medication amiodarone 200 Mg GT daily for rate control ? Continue home medication metoprolol tartrate 25 Mg GT twice daily ? Eliquis on hold for now in anticipation for possible procedure Insulin-dependent diabetes mellitus type 2 [6.4% Home medication insulin sliding scale Plan: ? Insulin sliding scale Hx of seizure disorder Not on home ANTIEPILEPTICS. No signs of seizures. ? Seizure precaution Deep sacral ulcer ? Wound care Chronic constipation Likely secondary to CVA. Patient on chronic LAXATIVES. ? Continue LACTULOSE 10 mg GT prn ? Continue senna daily Chronic PEG tube PEG tube appears intact without signs of infection. Plan: ? Tube feeds ? Registered dietitian referral Hx of CVA History of large cerebral vessel occlusion. Chronically trached and pegged. Opens eyes spontaneously. Does not follow command. Health maintenance: Disposition: IV antibiotics. Nebulizations. For Thoracentesis today Diet: Tube feeds Lines: pIVs GI Prophylaxis: Pantoprazole IV Thrombo Prophylaxis: SCDs Code status: DNR Plan of care discussed with Attending Dr. Minaya and PGY3 Dr. Sahil Greene MD PGY 1 Attending Provider Attestation/Addendum I, Marlena Minaya, DO, attest that I was physically present for the tapia portions of the service and evaluated the patient with the resident and I reviewed and discussed the case with the resident and agree with the resident's findings and plans of care as documented above Patient seen and evaluated this AM. Patient had a rapid response due to hypoxia. ABG shows PaO2 of 44, some improvement of saturation once blow by settings were increased to 7L. However, Patient had a second rapid response again due to hypoxia and patient was diaphoretic. Improved once patient was placed on vent. Patient is at baseline, tracking with eyes. Patient underwent bedside thorascentesis during which 1300cc of pleural fluid was removed. Will f/u fluid studies. Titrate O2 as tolerated following thorascentesis. Family updated following rapid response and is agreeable to thorascentesis and any necessary procedures.
[2024-05-20] MEDS: MORPHINE SULF INJ 10 MG/ML VIAL 2 MG IVP (07:32)
[2024-05-20] MEDS: FUROSEMIDE INJ 10 MG/ML 4ML VIAL 40 MG IVP (07:34)
[2024-05-20 08:55] LABS: Troponin I 0.238 ng/mL (0.0-0.045)
[2024-05-20] MEDS: PANTOPRAZOLE INJ 40 MG VIAL IVP (09:53)
[2024-05-20] MEDS: SENNA TABLET 1 TAB GT (09:53)
[2024-05-20] MEDS: AMIODARONE HCL 200 MG TABLET GT (09:54)
[2024-05-20] MEDS: METOPROLOL TARTRATE 25 MG TABLET GT ×2 (09:56→20:18)
[2024-05-20] MEDS: VANCOMYCIN/NS 750 MG IVPB 750 MG/150 ML BAG 120 MG IV ×2 (10:12→21:27)
[2024-05-20 11:10] LABS: Allen Test Not Performed; Base Excess 3 (-3-3); HCO3 27 mEq/L (20-26); O2 Saturation 100 % (91-98); PCO2 41 mmHg (32.0-48.0); Puncture Site Right Radial; pH, Arterial 7.43 (7.35-7.45)
[2024-05-20 11:12] LABS: Inspired Oxygen, FIO2 60 %; PO2 53 mmHg (83-108)
[2024-05-20 11:35] LABS: Glucose 147 mg/dL (74-106); LDH (Lactate Dehydrogenase) 242 U/L (120-246)
[2024-05-20] MEDS: COLLAGENASE OINT 30 GM TUBE TOP (12:28)
--- NOTE | 2024-05-20 13:20 | PC.NURSE ---
Dr. Greene at bedside. Contacted Pt's son Rashel to get consent over the phone for bedside thoracentesis. Son Consented to the procedure. Thoracentesis started at bedside at 1318 on 05/20. 1300ml removed. Pt tolerated well.
--- NOTE | 2024-05-20 13:53 | XR_ITS ---
Examination: AP chest single view Technique one AP portable upright chest single view Exam date and time: May 20, 2024 1402 hrs. Comparison May 20, 2024 0659 hrs. Indications: Post thoracentesis Findings: Decrease in left pleural fluid Probable skinfold over the left hemithorax but clinical correlation advised Enlarged cardiac contour with significant vascular congestion Moderate right pleural effusion Tracheostomy tube tip 9 cm above segundo Impression: Recommend repeat AP chest to confirm skinfold over the left hemithorax and exclude left pneumothorax
--- NOTE | 2024-05-20 13:55 | ESOP_ITS ---
Procedures Procedure Date / Time 05/20/24 1318 Procedure Narrative Procedure Narrative: Attending Attestation: I was present for entire procedure. Patient tolerated procedure well with no immediate complications. No significant blood loss. Follow up chest xray shows good rexpansion of left lung and removal of fluids with no significant PTX. Thoracentesis Indication(s): symptomatic Pleural Effusion (Left) Informed consent obtained from: surrogate (Son, Xochitl) Time out done, and the following verified: correct patient, side and site, procedure, patient position and implants and/or equipment Ultrasound used: Yes Procedure location: lt. post pleual space Amount pleural fluid removed (ml): 1,300 EBL(ml): 10 Procedure comment: Thoracentesis Procedure Note Indication: Left pleural effusion Procedure longshore equipment operator: Salvador Greene MD Attending Physician: Gokul Douglas MD CONSENT: During the informed consent discussion regarding the procedure, or treatment, I explained the following to the patient and designee: a.Nature of the procedure or treatment and who will perform the procedure or treatment. b.Necessity for the procedure and the possible benefits. c. Risks and complications (most common and serious). d.Alternative treatments and the risks, benefits and side effects of each (including no treatment). e. Likelihood of the patient achieving his/her goals without this procedure and surgery treatment. f. Problems that might occur during the recuperation. g. Conflicts of interest, if any PROCEDURE SUMMARY: A time out was performed and the chest x-ray was reviewed, the appropriate side was confirmed and marked. My hands were washed immediately prior to the procedure. I wore a surgical cap, mask with protective eyewear, sterile gown and sterile gloves throughout the procedure. The patient was prepped and draped in a sterile manner using chlorhexidine scrub after the appropriate level was percussed and confirmed by ultrasound. 1% lidocaine was used to anesthesize the skin, subcutaneous tissue, superior aspect of the rib periosteum and parietal pleura. A finder needle was then introduced over the superior aspect of the rib to locate the pleural fluid; Bloody colored fluid was aspirated at a depth of approximately 6 cm. A 10-blade scalpel was used to brian the skin at the insertion site. The [id number] needle was then introduced through the skin incision into the pleural space using negative aspiration pressure and the red colormetric indicator to confirm appropriate positioning of the needle. The thoracentesis catheter was then th readed without difficulty. 1300 ml of straw/bloody colored fluid was removed without difficulty. The catheter was then removed. No immediate complications were noted during the procedure. A post-procedure chest x-ray is pending at the time of this note. The fluid will be sent for studies. Estimated blood loss is 10ml. Entire procedure was supervised by my Attending Physician Dr. Stella Greene MD PGY1
--- NOTE | 2024-05-20 15:13 | PD.PUCONS ---
[facility] Pulmonology Consult Data of Consult Requesting Physician: Marlena Minaya DO Primary Care Provider: Misha Hernandez MD Consult Narrative History of present illness: Patient is a 83-year-old female status post trach and PEG secondary to multiple strokes and seizure disorder. Significant history also of atrial fibrillation, hypertension, diabetes mellitus who presented from home with fever. Patient noted to be septic with diagnostic evaluation revealing presence of bilateral, left greater than right pleural effusions. Probable superimposed pneumonia as primary source of her infectious etiology of presentation. Patient started on antibiotics with pulmonology consulted for evaluation of potential procedure for thoracentesis to optimize status. Patient notably not requiring ventilatory support and she is normally on room air via her trach. Patient is unable to communicate at baseline and significant history taken from chart review of. cc:: cc: Marlena Minaya DO Review of Systems Review of Systems ROS Unobtainable: due to endotracheal tube (Chronic tracheostomy/nonverbal at baseline) Past Medical History Past Medical History Comments PMH COMMENT: Past medical history/past surgical history, family history, social history obtained from chart review with no significant pertinent findings except as included in HPI above. Meds Home Medications and Allergies Home Medications ?Medication ?Instructions ?Recorded ?Confirmed ?Type acetaminophen 325 mg tablet 325 mg feeding tube Q6H PRN fever 04/25/24 05/20/24 History or pain amiodarone 200 mg tablet 200 mg feeding tube DAILY 04/25/24 05/20/24 History amlodipine 10 mg tablet 10 mg feeding tube QDAY 04/25/24 05/20/24 History apixaban 2.5 mg tablet (Eliquis) 2.5 mg feeding tube BID 04/25/24 05/20/24 History Held on 05/30/24. Instructions: Resume on 06/08/24. Hold until Hgb stable and no evidence of GI bleed atorvastatin 80 mg tablet 80 mg feeding tube HS 04/25/24 05/20/24 History bisacodyl 5 mg tablet,delayed 5 mg feeding tube Q6H PRN 04/25/24 05/20/24 History release (Gentle Laxative constipation (bisacodyl)) insulin regular human 100 unit/mL 1 sliding scale dose subcut Q6H 04/25/24 05/20/24 History (3 mL) subcutaneous pen (Novolin R FlexPen) ipratropium 0.5 mg-albuterol 3 mg 3 ml inhalation Q6H PRN shortness 04/25/24 05/20/24 History (2.5 mg base)/3 mL nebulization of breath soln lactulose 10 gram/15 mL oral 10 g feeding tube Q6H 04/25/24 05/20/24 History solution (Enulose) metoprolol tartrate 25 mg tablet 25 mg feeding tube Q12H 04/25/24 05/20/24 History calcium 600 mg (as 1 cap PO DAILY 05/20/24 05/20/24 History carbonate)-vitamin D3 5 mcg (200 unit) capsule (Calcium 600 + D(3)) sennosides 8.6 mg tablet 8.6 mg feeding tube BID 05/20/24 05/20/24 History (Black-Draught Lax-Senna) Allergies Allergy/AdvReac Type Severity Reaction Status Date / Time No Known Allergies Allergy Verified 05/25/24 08:41 Exam Vital Signs Temp Pulse Resp BP Pulse Ox O2 Del Method O2 Flow Rate 98.4 F 89 20 118/60 100 Mechanical Ventilation 10 05/20/24 12:00 05/20/24 12:46 05/20/24 12:46 05/20/24 12:00 05/20/24 12:46 05/20/24 12:00 05/20/24 12:00 FiO2 80 05/20/24 12:00 Narrative Exam GEN: Mild tachypnea on MV, adequate volumes HEENT: dry mucus membranes Neck: No JVD CVS: S1/S2+ RRR Pulm: absent breath sounds in both bases Abd: soft/ NT/ NDs/ BS+ Ext: contracted extremities, no clubbing or cyanosis Neuro: contractures noted Psych: flat affect, nonverbal at baseline Physical Exam Completion Physical Exam Complete?: Yes Results - Water Purifier Operator Labs 05/30/24 05:20 05/30/24 05:20 Labs: Short CBC 05/20/24 Range/Units 04:57 WBC 16.4 H (3.6-11.0) Thou/mm3 Hgb 8.3 L (12.0-16.0) g/dL Hct 24.9 L (36.0-46.0) % Plt Count 342 D (140-440) Thou/mm3 BMP 05/20/24 05/20/24 04:57 07:48 Sodium 135 L Potassium 4.1 Chloride 100 Carbon Dioxide 26.8 BUN 42 H Creatinine 0.7 Glucose 125 H 147 H Calcium 7.9 L Cardiac Enzymes 05/20/24 Range/Units 07:48 Troponin I 0.238 H* (0.0-0.045) ng/mL Liver Function 05/20/24 Range/Units 04:57 Total Bilirubin 0.3 (0.3-1.2) mg/dL AST 94 H (0-34) U/L ALT 152 H (10-49) U/L Alkaline Phosphatase 115 (46-116) U/L Albumin 2.8 L (3.4-4.8) gm/dL ABG Interpretation ABG results: 05/20/24 05/20/24 07:00 11:00 ABG pH 7.40 7.43 ABG pCO2 45 41 ABG pO2 44 L* 53 L* ABG HCO3 28 H 27 H ABG O2 Saturation 94 100 H ABG Base Excess 3 3 Assessment & Plan Additional Plan Additional Plan: Bilateral pleural effusion Acute on chronic hypoxic respiratory failure Patient adequately off of anticoagulation patient is appropriate candidate for proceeding with thoracentesis Suspect transudative process likely in setting of congestive heart failure/volume overload, follow-up fluid studies Discussed with medicine team ongoing plan for diuresis Care wean off mechanical ventilation as tolerated, remains vent dependent Follow-up chest x-ray shows no significant pneumothorax, likely skinfold leading to suggestion of pleural reflection and not true given presence of pulm markings to the chest wall I remain available should any other further questions arise Provider Notation Provider Notation: Although this document has been carefully reviewed, there may still be some phonetic and other typographical errors. These errors are purely grammatical due to imperfections in the software program and should not be construed in any way to compromise the substance of the patient's medical care during this visit. Thank you for the opportunity and privilege in assisting you with this patient's care and management.
[2024-05-20 15:23] LABS: Pleural Fluid WBC 970 /cmm
[2024-05-20 15:25] LABS: Pleural Fluid Appearance Cloudy; Pleural Fluid Color Red
[2024-05-20 15:26] LABS: Pleural Fluid Mononuclear 32 %; Pleural Fluid Polynuclear 68 %; Pleural Fluid RBC 36000 /cmm
[2024-05-20 15:34] LABS: Amylase,Pleural Fluid 22 IU/L; Glucose,Pleural Fluid 167 mg/dL; LDH,Pleural Fluid 124 IU/L; Protein Total,Pleural Fluid 2.9 g/dL
[2024-05-20] MEDS: ATORVASTATIN CALCIUM 20 MG TABLET 40 MG GT (20:18)
[2024-05-20] MEDS: ACETAMINOPHEN SOL 325 MG/10 ML UDC 650 MG GT (20:18)
[2024-05-21] VITALS (18 sets, daily range): BP systolic 107–133; BP diastolic 58–84; PULSE 63–92; RESP 17–29; TEMP 36.7–38.6; O2SAT 95–100; BMI 20.7
[2024-05-21] MEDS: ALBUTEROL/IPRATROPIUM (Duoneb) RT SOL 3 ML NEBU INH ×4 (00:03→18:28)
[2024-05-21] MEDS: INSULIN LISPRO (AdmeLOG) 1 UNIT/0.01 ML UNIT SC ×5 (00:07→23:26)
[2024-05-21] MEDS: PIPER/TAZO INJ 3.375 GM in SODIUM CHLORIDE 0.9% (Popper) 50 ML IV ×3 (05:44→21:18)
[2024-05-21 05:49] LABS: Basophils # (Auto) 0.1 Thou/mm3 (0.0-0.2); Basophils % (Auto) 0 % (0-2.5); Eosinophils % (Auto) 0 % (0-10); Hematocrit 24.6 % (36.0-46.0); Immature Granulocytes % (Auto) 1 % (0-0); Immature Granulocytes Auto 0.09 Thou/mm3 (0.00-0.00); Lymphocytes # (Auto) 1.1 Thou/mm3 (1.0-4.8); Lymphocytes % (Auto) 6 % (10-50); Mean Corpuscular HGB Conc 32.5 g/dl (31.0-37.0); Mean Corpuscular Hemoglobin 28.7 pg (25.0-35.0); Mean Corpuscular Volume 88 fL (80-100); Monocytes # (Auto) 1.4 Thou/mm3 (0.0-0.8); Monocytes % (Auto) 7 % (0-12); Neutrophils # (Auto) 16.5 Thou/mm3 (1.8-7.7); Neutrophils % (Auto) 86 % (37-80); Nucleated Red Blood Cell % 0 /100 WBC (0); Platelet Count 316 Thou/mm3 (140-440); RDW Standard Deviation 47.6 fL (36.4-46.3); Red Blood Count 2.79 Miln/mm3 (4.00-5.20); White Blood Count 19.1 Thou/mm3 (3.6-11.0)
[2024-05-21 06:12] LABS: Alanine Aminotransferase 100 U/L (10-49); Albumin, Serum 2.8 gm/dL (3.4-4.8); Albumin/Globulin Ratio 0.9 (1.2-2.2); Alkaline Phosphatase 128 U/L (46-116); Anion Gap 9 (7-16); Aspartate Amino Transferase 49 U/L (0-34); BUN/Creatinine Ratio 52 Ratio (12-20); Bilirubin,Total 0.2 mg/dL (0.3-1.2); Blood Urea Nitrogen 47 mg/dL (9-23); Calcium 7.8 mg/dL (8.3-10.6); Calcium (Corrected) 8.8 mg/dL (8.5-10.1); Chloride 100 mMol/L (98-107); Creatinine (Component) 0.9 mg/dL (0.6-1.3); Estimated Creatinine Clearance 35.7 mL/min (>60); Globulin 3.1 gm/dL (2.3-3.5); Glucose 180 mg/dL (74-106); Magnesium 2.4 mg/dL (1.6-2.6); Osmolality,Calculated 289 (275-295); Phosphorous 3.8 mg/dL (2.4-5.1); Potassium 4.2 mMol/L (3.4-5.1); Sodium 136 mMol/L (136-145); Total Protein 5.9 gm/dL (5.7-8.2); eGFR > 60 See Note
--- NOTE | 2024-05-21 07:34 | XR_ITS ---
Examination: AP chest single view Technique one AP portable semiupright chest single view Exam date and time: May 21, 2024 0808 hrs. Comparison May 20, 2024 Indications: Difficulty breathing this week Findings: [id number] heart failure Mild to moderate enlargement cardiac contour Prominent vascular congestion with perihilar basilar edema Moderate bilateral pleural effusions Tracheostomy tube tip 7.6 cm above segundo Prominent osteopenia Impression: [id number] heart failure Moderate bilateral pleural effusions
[2024-05-21] MEDS: SENNA TABLET 1 TAB GT (08:53)
[2024-05-21] MEDS: AMIODARONE HCL 200 MG TABLET GT (08:53)
[2024-05-21] MEDS: PANTOPRAZOLE INJ 40 MG VIAL IVP (08:53)
[2024-05-21] MEDS: METOPROLOL TARTRATE 25 MG TABLET GT ×2 (08:54→21:17)
[2024-05-21] MEDS: FUROSEMIDE INJ 10 MG/ML 4ML VIAL 40 MG IVP ×2 (08:54→18:19)
--- NOTE | 2024-05-21 08:58 | ECHO_ITS ---
Transthoracic Echo Report Ht (in): 61 Wt (lb): 110 Exam Location: Echo Lab Status: Inpatient Supervisor Diagnostic: NESTOR Marie^^^^ Indications: Procedure Performed: BP: 130 / 70 HR: 107 Technical Quality: Fair MEASUREMENTS (Male / Female) Normal Values 2D ECHO LV Diastolic Diameter PLAX 5.3 cm 4.2 - 5.9 / 3.9 - 5.3 cm LV Systolic Diameter PLAX 4.4 cm IVS Diastolic Thickness 0.9 cm 0.6 - 1.0 / 0.6 - 0.9 cm LVPW Diastolic Thickness 0.9 cm 0.6 - 1.0 / 0.6 - 0.9 cm LV Relative Wall Thickness 0.4 LVOT Diameter 1.8 cm Aortic Root Diameter 3.0 cm LA Systolic Diameter LX 3.3 cm 3.0 - 4.0 / 2.7 - 3.8 cm LV Ejection Fraction MOD BP 57.2 % >= 55 % LV Cardiac Index MOD BP 3829.8 cm?/min?m? LV Ejection Fraction MOD 4C 54.9 % LV Cardiac Index MOD 4C 3377.5 cm?/min?m? LV Ejection Fraction 4C AL 56.7 % LV Cardiac Index 4C AL 3992.4 cm?/min?m? LV Ejection Fraction MOD 2C 57.2 % LV Cardiac Index MOD 2C 3574.5 cm?/min?m? LV Ejection Fraction 2C AL 59.0 % LV Cardiac Index 2C AL 3721.1 cm?/min?m? LA Volume Index 35.4 cm?/m? 16 - 28 cm?/m? Ascending Aorta Diameter 3.3 cm DOPPLER AV Peak Velocity 163.0 cm/s AV Peak Gradient 10.6 mmHg AV Mean Gradient 8.0 mmHg AV Velocity Time Integral 40.1 cm AI Peak Velocity 369.0 cm/s AI Peak Gradient 54.5 mmHg AI Pressure Half Time 421.0 ms LVOT Peak Velocity 91.6 cm/s LVOT Peak Gradient 3.4 mmHg LVOT Velocity Time Integral 20.7 cm LVOT Cardiac Index 3842.6 cm?/min?m? AV Area Cont Eq vti 1.3 cm? AV Area Cont Eq pk 1.4 cm? MV Area PHT 3.6 cm? MR Peak Velocity 548.5 cm/s MR Peak Gradient 120.3 mmHg Mitral E Point Velocity 92.6 cm/s Mitral A Point Velocity 80.0 cm/s Mitral E to A Ratio 1.2 LV E' Lateral Velocity 13.6 cm/s Mitral E to LV E' Lateral Ratio 6.8 LV E' Septal Velocity 7.7 cm/s Mitral E to LV E' Septal Ratio 12.0 TR Peak Velocity 334.3 cm/s TR Peak Gradient 44.7 mmHg PV Peak Velocity 87.5 cm/s PV Peak Gradient 3.1 mmHg RVOT Peak Velocity 61.3 cm/s FINDINGS Left Ventricle Normal left ventricular size, wall thickness, systolic function with no obvious regional wall motion abnormalities.there is grade II diastolic dysfunction of the left ventricle (pseudonormal filling pattern). The left ventricular ejection fraction is normal, estimated at 55-60%. Right Ventricle The right ventricle is normal in size and systolic function. Estimated right ventricular systolic pressure is mildly elevated, 45 mmHg. Left Atrium The left atrium is normal by two-dimensional, color flow and Doppler imaging with no structural abnormalities, no thrombus formation present. Right Atrium The right atrium is normal by two-dimensional imaging, color flow and Doppler imaging with no structural abnormalities, no thrombus formation present. Atrial Septum The interatrial septum appears normal with no evidence of a shunt. Aorta The aortic root, ascending aorta, aortic arch and descending thoracic aorta are normal to two-dimensional, color flow and Doppler interrogation. Mitral Valve [id number] mitral regurgitation. Mild mitral annular calcification. Aortic Valve Aortic valve sclerosis. Tricuspid Valve There is mild to moderate tricuspid valve regurgitation. Pulmonic Valve trivial pulmonic valve regurgitation. Vessels The pulmonary artery appears normal. The inferior vena cava pulmonary and hepatic veins appear normal. Pericardium The pericardium is normal by two-dimensional imaging. There is no significant pericardial effusion. CONCLUSIONS indication: Pleural Effusion LV appears normal with EF 55-60%. Diastolic Dysfunction II is present. RV has mildly elevated RVSP of 45 mmHg MV has mod-severe MR. mild MAC AOV looks sclerotic. TV has mild to moderate TR. Large pleural Effusion present. Kavita Billings (Electronically Signed) Final Date: 21 May 2024 13:44
--- NOTE | 2024-05-21 09:21 | ESPR_ITS ---
<Statement entered by Jared Baxter MD - 05/22/24 09:05> Agree with plan and examination finding on the note below. Patient seen and examined at bedside today. Labs and imaging reviewed. Patient care discussed with my attending Dr. Minaya and co-resident Dr. Greene. Documentation for date of: 05/21/24 Subjective Subjective Interval history: Patient was seen and examined at bedside this AM. No acute exents overnight. Patient tolerating tube feeds, adequate urine output and mentation is at baseline. Patient more responsive today, tracking with her eyes and responsive to her name. Patient had diagnostic/therapeutic left thoracentesis on 05/20/2024. Drained 1300 cc of pleural fluid. Fluid analysis revealed a transudative effusion. Will increase Lasix to 40 Mg IV twice daily Transthoracic echocardiogram ordered Updated patient's NOK and decision maker, ANN about current hospital course and treatment measures. All questions and concerns were addressed. Exam Vital Signs Temp Pulse Resp BP Pulse Ox O2 Del Method O2 Flow Rate 98.6 F 83 19 133/84 H 100 Mechanical Ventilation 10 05/21/24 08:00 05/21/24 08:54 05/21/24 08:00 05/21/24 08:54 05/21/24 08:00 05/21/24 08:00 05/20/24 16:00 FiO2 40 05/21/24 06:48 Narrative Exam Constitutional Patient on O2 via ventillator HEENT Both eyes open and moving spontaneously, tracheostomy tube insitu, exit site clean Respiratory Chest normal on inspection and scattered, crackles - improving Cardiovascular S1 and S2 audible, RRR. No murmurs carotid bruit. No gross JVD. Abdominal Soft and non tender to palpation in all quadrants. PEG tube noted. Exit site clean BS + Genitourinary No bladder tenderness, no flank pain. Normal to palpation Musculoskeletal Increased tone in lower extremities. No lower extremity swelling Objective Labs 05/21/24 05:20 05/21/24 05:20 Labs: Laboratory Results - last 24 hr 05/20/24 05/20/24 05/20/24 07:48 11:00 13:45 WBC RBC Hgb Hct MCV MCH MCHC RDW Std Deviation Plt Count Neut % (Auto) Lymph % (Auto) Leon % (Auto) Eos % (Auto) Baso % (Auto) Neut # (Auto) Lymph # (Auto) Leon # (Auto) Eos # (Auto) Baso # (Auto) Immature Gran # (Auto) Absolute Nucleated RBC Immature Gran % Nucleated RBC % Puncture Site Right Radial ABG pH 7.43 ABG pCO2 41 ABG pO2 53 L* ABG HCO3 27 H ABG O2 Saturation 100 H ABG Base Excess 3 FiO2 60 Sodium Potassium Chloride Carbon Dioxide Anion Gap BUN Creatinine Estim Creat Clear Calc eGFR BUN/Creatinine Ratio Glucose 147 H Calculated Osmolality Calcium Corrected Calcium Phosphorus Magnesium Total Bilirubin AST ALT Alkaline Phosphatase Lactate Dehydrogenase 242 Total Protein Albumin Globulin Albumin/Globulin Ratio Pleural Color Red Pleural Appearance Cloudy Pleural WBC 970 Pleural RBC 25523 Pleural Polynuclear WBC 68 Pleural Mononuclear WBC 32 Pleural Total Protein 2.9 Pleural LDH 124 Pleural Glucose 167 Pleural Amylase 22 05/21/24 05:20 WBC 19.1 H RBC 2.79 L Hgb 8.0 L Hct 24.6 L MCV 88 MCH 28.7 MCHC 32.5 RDW Std Deviation 47.6 H Plt Count 316 Neut % (Auto) 86 H Lymph % (Auto) 6 L Leon % (Auto) 7 Eos % (Auto) 0 Baso % (Auto) 0 Neut # (Auto) 16.5 H Lymph # (Auto) 1.1 Leon # (Auto) 1.4 H Eos # (Auto) 0.0 Baso # (Auto) 0.1 Immature Gran # (Auto) 0.09 H Absolute Nucleated RBC 0.00 Immature Gran % 1 H Nucleated RBC % 0 Puncture Site ABG pH ABG pCO2 ABG pO2 ABG HCO3 ABG O2 Saturation ABG Base Excess FiO2 Sodium 136 Potassium 4.2 Chloride 100 Carbon Dioxide 27.0 Anion Gap 9 BUN 47 H Creatinine 0.9 Estim Creat Clear Calc 35.7 L eGFR > 60 BUN/Creatinine Ratio 52 H Glucose 180 H Calculated Osmolality 289 Calcium 7.8 L Corrected Calcium 8.8 Phosphorus 3.8 Magnesium 2.4 Total Bilirubin 0.2 L AST 49 H ALT 100 H Alkaline Phosphatase 128 H Lactate Dehydrogenase Total Protein 5.9 Albumin 2.8 L Globulin 3.1 Albumin/Globulin Ratio 0.9 L Pleural Color Pleural Appearance Pleural WBC Pleural RBC Pleural Polynuclear WBC Pleural Mononuclear WBC Pleural Total Protein Pleural LDH Pleural Glucose Pleural Amylase ABG Interpretation ABG results: 05/20/24 05/20/24 07:00 11:00 ABG pH 7.40 7.43 ABG pCO2 45 41 ABG pO2 44 L* 53 L* ABG HCO3 28 H 27 H ABG O2 Saturation 94 100 H ABG Base Excess 3 3 Quality Measures Quality Measures none Advance care planning discussed with:: other (POLST) Assessment & Plan Assessment Current Active Medications: Generic Name Dose Route Start Last Admin Trade Name Freq PRN Reason Stop Dose Admin Acetaminophen 650 mg 05/20/24 09:38 05/20/24 20:18 Acetaminophen Viviana 325 Mg/10 Ml Udc GT 06/18/24 14:45 650 mg Q6HR PRN Administration Pain(1-3) Or Fever > 100.3 Hydrocodone Bitart/Acetaminophen 1 tab 05/19/24 14:29 Hydrocodone/Apap 5/325 Tablet GT 05/24/24 14:28 Q4HR PRN PAIN SCALE 4-10(Mod-Sev Acetylcysteine 2 ml 05/19/24 16:45 05/21/24 05:45 Acetylcysteine Rt Viviana 10% 4 Ml Nebu GT 06/18/24 16:44 Not Given Q8HR AMARJIT Albuterol/Ipratropium 3 ml 05/19/24 19:00 05/21/24 06:46 Albuterol/Ipratropium (Duoneb) Rt Viviana 3 Ml Nebu INH 06/18/24 18:59 3 ml Q6HRRT AMARJIT Administration Amiodarone HCl 200 mg 05/20/24 09:00 05/21/24 08:53 Amiodarone Hcl 200 Mg Tablet GT 06/19/24 08:59 200 mg DAILY AMARJIT Administration Atorvastatin Calcium 40 mg 05/19/24 21:00 05/20/24 20:18 Atorvastatin Calcium 20 Mg Tablet GT 06/18/24 20:59 40 mg HS AMARJIT Administration Collagenase 0 gm 05/20/24 09:00 05/20/24 21:46 Collagenase Oint 30 Gm Tube TOP 06/19/24 08:59 Not Given BID AMARJIT Dextrose 50 ml 05/19/24 14:50 Dextrose 50%-Water Inj 50 Ml Syringe IV 06/18/24 14:49 Q15MIN PRN BG <50 OR BG <70 & pt unresponsive Furosemide 40 mg 05/21/24 18:00 Furosemide Inj 10 Mg/Ml 4ml Vial IVP 06/20/24 17:59 BIDD AMARJIT Glucagon 1 mg 05/19/24 14:50 Glucagon Inj 1 Mg Vial IM Q15MIN PRN BG <70, and no IV access Piperacillin Sod/Tazobactam 50 mls @ 12.5 mls/hr 05/19/24 22:00 05/21/24 05:44 Sod 3.375 gm/ Sodium Chloride IV 05/26/24 21:59 12.5 mls/hr Q8HR AMARJIT Administration Vancomycin/Sodium Chloride 750 mg in 150 mls @ 120 mls/hr 05/19/24 22:00 05/20/24 21:27 Vancomycin/Ns 750 Mg Ivpb IV 05/26/24 21:59 120 mls/hr Q12H AMARJIT Administration Insulin Human Lispro 0 unit 05/19/24 18:00 05/21/24 05:42 Insulin Lispro (Admelog) 1 Unit/0.01 Ml Unit SC 06/18/24 17:59 2 unit Q6HR AMARJIT Administration Protocol Lactulose 10 gm 05/19/24 16:14 Lactulose Syrup 20 Gm/30 Ml Udc GT 06/19/24 08:59 DAILY PRN Constipation Protocol Metoprolol Tartrate 25 mg 05/19/24 21:00 05/21/24 08:54 Metoprolol Tartrate 25 Mg Tablet GT 06/18/24 20:59 25 mg BID AMARJIT Administration Ondansetron HCl 4 mg 05/19/24 14:24 Ondansetron Inj 2 Mg/Ml Inj 2 Ml IV 06/18/24 14:23 Q6H PRN NAUSEA OR VOMITING Protocol Pantoprazole Sodium 40 mg 05/19/24 14:30 05/21/24 08:53 Pantoprazole Inj 40 Mg Vial IVP 06/18/24 14:29 40 mg QDAY AMARJIT Administration Pharmacy Consult 1 each 05/20/24 09:00 Vancomycin Pharmacy To Dose 1 Each Each IV 06/19/24 08:59 QDAY PRN PROTOCOL Sennosides 1 tab 05/20/24 09:00 05/21/24 08:53 Senna Tablet GT 06/19/24 08:59 1 tab QDAY AMARJIT Administration Protocol Plan Patient is [place] 83[place]year-[place] [facility] [place] [facility] 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 Patient will be admitted for acute respiratory failure with hypoxia secondary to large left-sided pleural effusion in the setting of community-acquired pneumonia. Acute on chronic respiratory failure with hypoxia - improving Community-acquired versus hospital-acquired versus aspiration pneumonia Large Left sided Pleural effusion s/p diagnostic/therapeutic thoracentesis 05/20/2024 SIRS 4/4 - resolving Lactic acidosis?resolving Medical history is unclear. Patient was recently accepted at subacute unit. She is chronically pegged and trached. Apparently she has been spiking fevers of 101 over the last few days. Met 4/4 SIRS criteria with fever, tachypnea, tachycardia and leukocytosis. Chest x-ray significant for extensive pneumonia and atelectasis left lung. Repeat chest x-ray significant for extensive pneumonia/edema throughout all lung alfaro with large layering left pleural effusion. Chest CT significant for thyromegaly with multiple thyroid nodules, large bilateral pleural effusions, atelectasis and pneumonia left lung base. Mild pneumonia right lung base Lactic acid 2.8 down trended to 0.8 RSV negative MRSA nares negative Blood culture negative x 48 hours preliminary Pending urine culture PSI/PORT : 163 points. Risk class V. Hospitalization recommended based on risk Patient had diagnostic/therapeutic left thoracentesis on 05/20/2024. Drained 1300 cc of pleural fluid. Fluid analysis revealed a transudative effusion. Will increase Lasix to 40 Mg IV twice daily Plan: - Will wean off of ventilator today - Transthoracic echocardiogram ordered to assess wall motion abnormalities, ejection fraction and valvular defects ? Pending sputum culture ? Pending pleural fluid analysis including Gram stain, culture and cytology. - Increased Lasix to 40mg IV BID ? Continue DuoNebs Q6 hourly ? D3 Zosyn 4.5 g IV Q6 hourly for possible aspiration pneumonia started on [05/19? ? D3 vancomycin IV pharmacy to dose for MRSA coverage started on [05/19? Primary HTN A-fib, likely paroxysmal NSTEMI type 1 vs type 2 HLD HASBLED 4 indicates high risk for major bleed. [id number] indicates 17% stroke/TIA/embolism. Troponin 0.077 ---> 0.238 EKG significant for sinus tachycardia, rate 107. Q waves in septal leads. No acute ST changes. Increasing troponin likely due to stress from diaphoresis and hypoxia. Plan: ? Continue home medication amiodarone 200 Mg GT daily for rate control ? Continue home medication metoprolol tartrate 25 Mg GT twice daily ? Eliquis on hold for now Insulin-dependent diabetes mellitus type 2 [6.4% Home medication insulin sliding scale Plan: ? Insulin sliding scale Hx of seizure disorder Not on home ANTIEPILEPTICS. No signs of seizures. ? Seizure precaution Deep sacral ulcer ? Wound care Chronic constipation Likely secondary to CVA. Patient on chronic LAXATIVES. ? Continue LACTULOSE 10 mg GT prn ? Continue senna daily Chronic PEG tube PEG tube appears intact without signs of infection. Plan: ? Tube feeds ? Registered dietitian referral Hx of CVA History of large cerebral vessel occlusion. Chronically trached and pegged. Opens eyes spontaneously. Does not follow command. Health maintenance: Disposition: IV antibiotics. Nebulizations. To wean off ventilator today. Anticipate discharge within next 24 to 48 hours Diet: Tube feeds Lines: pIVs GI Prophylaxis: Pantoprazole IV Thrombo Prophylaxis: SCDs Code status: DNR Plan of care discussed with Attending Dr. Minaya and PGY3 Dr. Sahil Greene MD PGY 1 Attending Provider Attestation/Addendum Em, Marlena Minaya, , attest that I was physically present for the tapia portions of the service and evaluated the patient with the resident and I reviewed and discussed the case with the resident and agree with the resident's findings and plans of care as documented above Patient seen and evaluated this AM. Patient appears more alert and tracking with eyes. Patient noted to have a sacral decubitus ulcer. lumbar xr does not show any cortical destruction. Will consult surgeon for possible bedside debridement. Pleural fluid done yesterday noted to have significant RBCs, likely due to recent eliquis use, but likely transudative. Repeat CXR appears improved, no other effusions present safe for thorascentesis. Continue with IV diuresis due to vascular congestion noted on CXR. Patient on Fio2 of 35%, requiring minimal support from vent, will switch back to [place] if tolerated. Patient likely canbe transferred back to subacute in next 24h
[2024-05-21 09:51] LABS: Vancomycin,Trough 32.4 mcg/mL (5.0-10.0)
[2024-05-21] MEDS: COLLAGENASE OINT 30 GM TUBE TOP ×2 (10:00→21:18)
--- NOTE | 2024-05-21 11:03 | XR_ITS ---
Examination: AP lumbar spine single view Technique: AP lumbar spine single view Indications: Assess for osteomyelitis Findings: Gastrostomy tube overlies the stomach Prominent osteopenia No gross bone destruction involving lumbar vertebral bodies on this AP view only Suspicious for 4 mm right renal calculus Impression: No tony cortical bone destruction involving the lumbar spine
--- NOTE | 2024-05-21 13:24 | PC.SS ---
HAMMERSM[facility] HELPER conducted phone contact with the patient?s son, Rashel Oh ; to conduct initial assessment and to discuss discharge plan.? Patient is a resident of sub-acute unit.? Patient has been placed at [facility] for approximately 2 months.? Patient is currently Trach/PEG.? Patient is bedbound.? The patient?s medical surrogate decision maker is Rashel topete.? The patient?s PCP is Dr. Hernandez.? The discharge plan is for the patient to return to sub-[facility] when medically cleared.? No discharge needs identified by the patient.? No further intervention required at this time, secondary social studies teacher will be available to address any further concerns.? Next of Kin: Xochitl Her D/C Plan: Sub-Acute
[2024-05-21] MEDS: ACETAMINOPHEN SOL 325 MG/10 ML UDC 650 MG GT (16:34)
[2024-05-21] MEDS: ATORVASTATIN CALCIUM 20 MG TABLET 40 MG GT (21:17)
[2024-05-21] MEDS: ACETYLCYSTEINE RT SOL 10% 4 ML NEBU 2 ML GT (21:18)
[2024-05-22] VITALS (17 sets, daily range): BP systolic 97–142; BP diastolic 58–89; PULSE 70–89; RESP 17–36; TEMP 36.1–37.3; O2SAT 88–100; BMI 21.9
[2024-05-22] MEDS: ALBUTEROL/IPRATROPIUM (Duoneb) RT SOL 3 ML NEBU INH ×4 (00:54→19:17)
[2024-05-22] MEDS: FUROSEMIDE INJ 10 MG/ML 4ML VIAL 40 MG IVP (05:11)
[2024-05-22] MEDS: ACETYLCYSTEINE RT SOL 10% 4 ML NEBU 2 ML GT (05:11)
[2024-05-22] MEDS: PIPER/TAZO INJ 3.375 GM in SODIUM CHLORIDE 0.9% (Popper) 50 ML IV (05:12)
[2024-05-22] MEDS: INSULIN LISPRO (AdmeLOG) 1 UNIT/0.01 ML UNIT SC ×3 (05:13→17:41)
[2024-05-22 05:32] LABS: Magnesium 2.2 mg/dL (1.6-2.6); Phosphorous 3.7 mg/dL (2.4-5.1); Vancomycin,Random 23.8 mcg/mL
--- NOTE | 2024-05-22 07:26 | XR_ITS ---
Examination: AP chest single view Technique one AP portable upright chest single view Exam date and time: May 22, 2024 at 0753 hrs. Indications: Shortness of breath today Comparison: May 21, 2024 Indications: Difficulty breathing this week. Findings: Heart failure mild to moderate Enlarged cardiac contour with prominent vascular congestion perihilar edema Suspicious for superimposed pneumonia at the lung bases Mild to moderate left pleural effusion Prominent osteopenia Tracheostomy tube tip 7 cm above [place] Impression: [id number] heart failure Consider superimposed pneumonia at the lung bases
[2024-05-22 08:08] LABS: Basophils % (Auto) 0 % (0-2.5); Eosinophils % (Auto) 0 % (0-10); Hematocrit 23.1 % (36.0-46.0); Immature Granulocytes % (Auto) 1 % (0-0); Lymphocytes # (Auto) 1.8 Thou/mm3 (1.0-4.8); Lymphocytes % (Auto) 6 % (10-50); Mean Corpuscular HGB Conc 32.5 g/dl (31.0-37.0); Mean Corpuscular Hemoglobin 28.8 pg (25.0-35.0); Mean Corpuscular Volume 89 fL (80-100); Monocytes # (Auto) 1.8 Thou/mm3 (0.0-0.8); Monocytes % (Auto) 6 % (0-12); Neutrophils # (Auto) 24.1 Thou/mm3 (1.8-7.7); Neutrophils % (Auto) 86 % (37-80); Nucleated Red Blood Cell % 0 /100 WBC (0); Platelet Count 342 Thou/mm3 (140-440); RDW Standard Deviation 49.1 fL (36.4-46.3); White Blood Count 27.9 Thou/mm3 (3.6-11.0)
[2024-05-22 08:14] LABS: Hemoglobin 7.5 g/dL (12.0-16.0)
[2024-05-22] MEDS: COLLAGENASE OINT 30 GM TUBE TOP ×2 (08:18→20:46)
[2024-05-22] MEDS: PANTOPRAZOLE INJ 40 MG VIAL IVP (08:18)
[2024-05-22] MEDS: METOPROLOL TARTRATE 25 MG TABLET GT ×2 (08:18→20:32)
[2024-05-22] MEDS: AMIODARONE HCL 200 MG TABLET GT (08:19)
[2024-05-22 08:28] LABS: Alanine Aminotransferase 78 U/L (10-49); Albumin, Serum 2.6 gm/dL (3.4-4.8); Albumin/Globulin Ratio 0.9 (1.2-2.2); Alkaline Phosphatase 129 U/L (46-116); Anion Gap 10 (7-16); Aspartate Amino Transferase 45 U/L (0-34); BUN/Creatinine Ratio 47 Ratio (12-20); Bilirubin,Total 0.2 mg/dL (0.3-1.2); Blood Urea Nitrogen 47 mg/dL (9-23); Calcium 7.5 mg/dL (8.3-10.6); Calcium (Corrected) 8.6 mg/dL (8.5-10.1); Chloride 99 mMol/L (98-107); Estimated Creatinine Clearance 32.2 mL/min (>60); Globulin 2.9 gm/dL (2.3-3.5); Glucose 179 mg/dL (74-106); Osmolality,Calculated 290 (275-295); Potassium 4.2 mMol/L (3.4-5.1); Sodium 137 mMol/L (136-145); Total Protein 5.5 gm/dL (5.7-8.2); eGFR 56 See Note
[2024-05-22] MEDS: CEFEPIME INJ 2 GM in SODIUM CHLORIDE 0.9% (Popper) 50 ML IV ×2 (10:24→20:32)
--- NOTE | 2024-05-22 11:24 | ESPR_ITS ---
<Statement entered by Pelon Judd MD - 05/23/24 05:54> I discussed with and supervised the video editing intern physician involved in the care of this patient. Patient assessment and plan was discussed with entire medicine team, including my attending. I agree with the assessment and plan as documented by video editing intern doctor. Patient care was discussed with my attending physician Dr. Rei Judd, PGY-2 Documentation for date of: 05/22/24 Subjective Subjective Interval history: Patient was seen and examined at bedside this AM. Yesterday patient had a temperature spike of 101.5 F around 4 PM Patient tolerating tube feeds, adequate urine output and mentation is at baseline. Patient more responsive today, tracking with her eyes and responsive to her name. From telemetry review patient and sinus rhythm overnight with heart rate between 80s?90s. K4.2, Mg 2.2. Will Keep K>4 and Mg >2 at all times to avoid arrhythmias Patient had fluid balance of -700 cc in past 24 hours. Lasix on hold due to suspicion for sepsis. Trans-thoracic echocardiogram completed on 05/21/2024 : LV appears normal with EF 55-60%. Diastolic Dysfunction II is present. RV has mildly elevated RVSP of 45 mmHg MV has mod-severe MR. mild MAC AOV looks sclerotic. WBC up trended to 27.9 from 19.1. Yesterday patient had a temperature spike of 101.5 F around 4 PM Sputum culture from 05/19/24 grew Staphylococcus aureus. With beta-lactamase activity against ampicillin and penicillin. Ordered repeat blood, urine cultures and chest x-ray. Discontinued Zosyn and started on cefepime 2 g IV Twice daily General Surgery, Dr. Garrett consulted. She will do debridement of sacral ulcer tomorrow. Appreciate recommendations. Cardiology, Dr. Guevara consulted for newly diagnosed diastolic heart failure. Appreciate recommendations Exam Vital Signs Temp Pulse Resp BP Pulse Ox O2 Del Method O2 Flow Rate 99.2 F 81 26 H 117/63 99 Mechanical Ventilation 10 05/22/24 07:52 05/22/24 08:19 05/22/24 08:09 05/22/24 08:19 05/22/24 08:09 05/22/24 07:52 05/22/24 08:09 FiO2 40 05/22/24 08:09 Narrative Exam Constitutional Patient on O2 via blow-by HEENT Both eyes open and moving spontaneously, tracheostomy tube insitu, exit site clean Respiratory Chest normal on inspection and scattered crackles worse on right. Cardiovascular S1 and S2 audible, RRR. No murmurs carotid bruit. No gross JVD. Abdominal Soft and non tender to palpation in all quadrants. PEG tube noted. Exit site clean BS + Genitourinary No bladder tenderness, no flank pain. Normal to palpation Musculoskeletal Increased tone in lower extremities. No lower extremity swelling Objective Labs 05/22/24 04:29 05/22/24 04:29 Labs: Laboratory Results - last 24 hr 05/22/24 04:29 WBC 27.9 H D RBC 2.60 L Hgb 7.5 L Hct 23.1 L MCV 89 MCH 28.8 MCHC 32.5 RDW Std Deviation 49.1 H Plt Count 342 Neut % (Auto) 86 H Lymph % (Auto) 6 L [place] % (Auto) 6 Eos % (Auto) 0 Baso % (Auto) 0 Neut # (Auto) 24.1 H Lymph # (Auto) 1.8 [place] # (Auto) 1.8 H Eos # (Auto) 0.0 Baso # (Auto) 0.0 Immature Gran # (Auto) 0.20 H Absolute Nucleated RBC 0.00 Immature Gran % 1 H Nucleated RBC % 0 Sodium 137 Potassium 4.2 Chloride 99 Carbon Dioxide 28.0 Anion Gap 10 BUN 47 H Creatinine 1.0 Estim Creat Clear Calc 32.2 L eGFR 56 L BUN/Creatinine Ratio 47 H Glucose 179 H Calculated Osmolality 290 Calcium 7.5 L Corrected Calcium 8.6 Phosphorus 3.7 Magnesium 2.2 Total Bilirubin 0.2 L AST 45 H ALT 78 H Alkaline Phosphatase 129 H Total Protein 5.5 L Albumin 2.6 L Globulin 2.9 Albumin/Globulin Ratio 0.9 L Random Vancomycin 23.8 ABG Interpretation ABG results: 05/20/24 05/20/24 07:00 11:00 ABG pH 7.40 7.43 ABG pCO2 45 41 ABG pO2 44 L* 53 L* ABG HCO3 28 H 27 H ABG O2 Saturation 94 100 H ABG Base Excess 3 3 Quality Measures Quality Measures none Advance care planning discussed with:: other (POLST) Assessment & Plan Assessment Current Active Medications: Generic Name Dose Route Start Last Admin Trade Name Freq PRN Reason Stop Dose Admin Acetaminophen 650 mg 05/20/24 09:38 05/21/24 16:34 Acetaminophen Viviana 325 Mg/10 Ml Udc GT 06/18/24 14:45 650 mg Q6HR PRN Administration Pain(1-3) Or Fever > 100.3 Hydrocodone Bitart/Acetaminophen 1 tab 05/19/24 14:29 Hydrocodone/Apap 5/325 Tablet GT 05/24/24 14:28 Q4HR PRN PAIN SCALE 4-10(Mod-Sev Acetylcysteine 2 ml 05/19/24 16:45 05/22/24 05:11 Acetylcysteine Rt Viviana 10% 4 Ml Nebu GT 06/18/24 16:44 2 ml Q8HR AMARJIT Administration Albuterol/Ipratropium 3 ml 05/19/24 19:00 05/22/24 06:24 Albuterol/Ipratropium (Duoneb) Rt Viviana 3 Ml Nebu INH 06/18/24 18:59 Not Given Q6HRRT AMARJIT Amiodarone HCl 200 mg 05/20/24 09:00 05/22/24 08:19 Amiodarone Hcl 200 Mg Tablet GT 06/19/24 08:59 200 mg DAILY AMARJIT Administration Atorvastatin Calcium 40 mg 05/19/24 21:00 05/21/24 21:17 Atorvastatin Calcium 20 Mg Tablet GT 06/18/24 20:59 40 mg HS AMARJIT Administration Collagenase 0 gm 05/20/24 09:00 05/22/24 08:18 Collagenase Oint 30 Gm Tube TOP 06/19/24 08:59 1 applicatio BID AMARJIT Administration Dextrose 50 ml 05/19/24 14:50 Dextrose 50%-Water Inj 50 Ml Syringe IV 06/18/24 14:49 Q15MIN PRN BG <50 OR BG <70 & pt unresponsive Furosemide 40 mg 05/21/24 18:00 05/22/24 05:11 Furosemide Inj 10 Mg/Ml 4ml Vial IVP 06/20/24 17:59 40 mg BIDD AMARJIT Administration Glucagon 1 mg 05/19/24 14:50 Glucagon Inj 1 Mg Vial IM Q15MIN PRN BG <70, and no IV access Cefepime HCl 2 gm/ Sodium 50 mls @ 100 mls/hr 05/22/24 09:09 05/22/24 10:24 Chloride IV 05/29/24 09:08 100 mls/hr Q12HR AMARJIT Administration Insulin Human Lispro 0 unit 05/19/24 18:00 05/22/24 05:13 Insulin Lispro (Admelog) 1 Unit/0.01 Ml Unit SC 06/18/24 17:59 3 unit Q6HR AMARJIT Administration Protocol Lactulose 10 gm 05/19/24 16:14 Lactulose Syrup 20 Gm/30 Ml Udc GT 06/19/24 08:59 DAILY PRN Constipation Protocol Metoprolol Tartrate 25 mg 05/19/24 21:00 05/22/24 08:18 Metoprolol Tartrate 25 Mg Tablet GT 06/18/24 20:59 25 mg BID AMARJIT Administration Ondansetron HCl 4 mg 05/19/24 14:24 Ondansetron Inj 2 Mg/Ml Inj 2 Ml IV 06/18/24 14:23 Q6H PRN NAUSEA OR VOMITING Protocol Pantoprazole Sodium 40 mg 05/19/24 14:30 05/22/24 08:18 Pantoprazole Inj 40 Mg Vial IVP 06/18/24 14:29 40 mg QDAY AMARJIT Administration Pharmacy Consult 1 each 05/20/24 09:00 Vancomycin Pharmacy To Dose 1 Each Each IV 06/19/24 08:59 QDAY PRN PROTOCOL Sennosides 1 tab 05/20/24 09:00 05/22/24 08:19 Senna Tablet GT 06/19/24 08:59 Not Given QDAY [facility] Protocol Plan Patient is an 83-year-old [facility] [place], 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 Patient will be admitted for acute respiratory failure with hypoxia secondary to large left-sided pleural effusion in the setting of community-acquired pneumonia. Acute on chronic respiratory failure with hypoxia - improving Community-acquired versus hospital-acquired versus aspiration pneumonia Large Left sided Pleural effusion s/p diagnostic/therapeutic thoracentesis 05/20/2024 SIRS 4/4 - resolving Leukocytosis Lactic acidosis?resolving Medical history is unclear. Patient was recently accepted at subacute unit. She is chronically pegged and trached. Apparently she has been spiking fevers of 101 over the last few days. Met 4/4 SIRS criteria with fever, tachypnea, tachycardia and leukocytosis. Chest x-ray significant for extensive pneumonia and atelectasis left lung. Repeat chest x-ray significant for extensive pneumonia/edema throughout all lung alfaro with large layering left pleural effusion. Chest CT significant for thyromegaly with multiple thyroid nodules, large bilateral pleural effusions, atelectasis and pneumonia left lung base. Mild pneumonia right lung base Lactic acid 2.8 down trended to 0.8 RSV negative MRSA nares negative Blood culture negative x 48 hours preliminary Pending urine culture PSI/PORT : 163 points. Risk class V. Hospitalization recommended based on risk Patient had diagnostic/therapeutic left thoracentesis on 05/20/2024. Drained 1300 cc of pleural fluid. Fluid analysis revealed a transudative effusion. WBC up trended to 27.9 from 19.1. Yesterday patient had a temperature spike of 101.5 F around 4 PM Sputum culture from 05/19/24 grew Staphylococcus aureus. With beta-lactamase activity against ampicillin and penicillin. Ordered repeat blood, urine cultures and chest x-ray. Discontinued Zosyn and started on cefepime 2 g IV twice daily Plan: - Wean from ventilator to blow-by ? Pending pleural fluid analysis including Gram stain, culture and cytology. - Held Lasix to 40mg IV BID ? Continue DuoNebs Q6 hourly ? Discontinued Zosyn 4.5 g IV Q6 hourly for possible aspiration pneumonia started on [05/19?05/22] ? Discontinued vancomycin IV pharmacy to dose for MRSA coverage started on [05/19?05/22] - Started on cefepime 2 g IV every 12 hourly for possible ventilator associated pneumonia on [05/22 Newly diagnosed chronic diastolic congestive heart failure with preserved ejection fraction [EF 55 to 60%] Patient has scattered crackles auscultation bilaterally worse on right CXR shows bilateral pleural effusion worse on the left and consolidation of the right around cardiac silhouette. Trans-thoracic echocardiogram completed on 05/21/2024 : LV appears normal with EF 55-60%. Diastolic Dysfunction II is present. RV has mildly elevated RVSP of 45 mmHg MV has mod-severe MR. mild MAC. AOV looks sclerotic Patient had fluid balance of -700 cc in past 24 hours. Lasix on hold due to concerns of sepsis Plan: ? Strict input output charting ? 2G sodium restricted diet ? 1500 cc/day fluid restriction ? Lasix on hold due to concern of sepsis - Cardiology, Dr. Guevara consulted for newly diagnosed diastolic heart failure. Appreciate recommendations Sacral ulcer stage II/III Patient has sacral ulcer with minimal slough and some purulent drainage Plan: - Wound care as per wound care nurse - General Surgery, Dr. Garrett consulted. She will do debridement of sacral ulcer tomorrow. Appreciate recommendations. Primary HTN A-fib, likely paroxysmal NSTEMI type 1 vs type 2 - resolving HLD HASBLED 4 indicates high risk for major bleed. [id number] indicates 17% stroke/TIA/embolism. Troponin 0.077 ---> 0.238 EKG significant for sinus tachycardia, rate 107. Q waves in septal leads. No acute ST changes. Increasing troponin likely due to stress from diaphoresis and hypoxia. Plan: ? Continue home medication amiodarone 200 Mg GT daily for rate control ? Continue home medication metoprolol tartrate 25 Mg GT twice daily ? Eliquis on hold for now due to concern for bleeding post procedure Insulin-dependent diabetes mellitus type 2 [6.4% Home medication insulin sliding scale Plan: ? Insulin sliding scale Hx of seizure disorder Not on home ANTIEPILEPTICS. No signs of seizures. ? Seizure precaution Chronic constipation Likely secondary to CVA. Patient on chronic LAXATIVES. ? Continue LACTULOSE 10 mg GT prn ? Continue senna daily Chronic PEG tube PEG tube appears intact without signs of infection. Plan: ? Tube feeds ? Registered dietitian referral Hx of CVA History of large cerebral vessel occlusion. Chronically trached and pegged. Opens eyes spontaneously. Does not follow command. Health maintenance: Disposition: IV antibiotics. Nebulizations. Pending repeat blood and urine culture. Cardiology recommendations. General surgery recommendations. Diet: NPO after midnight Lines: pIVs GI Prophylaxis: Pantoprazole IV Thrombo Prophylaxis: SCDs Code status: DNR Plan of care discussed with Attending Dr. Minaya and PGY2 Dr. Binta Greene MD PGY 1 Attending Provider Attestation/Addendum Em, Marlena Minaya DO, attest that I was physically present for the tapia portions of the service and evaluated the patient with the resident and I reviewed and discussed the case with the resident and agree with the resident's findings and plans of care as documented above Patient seen and evaluated this AM. She is back on blow by this morning in no acute distress. However, she is noted to have worsening leukocytosis of 27.9 and fevers of 101.5. Sputum noted to be positive for MSSA. Will place patient on cefepime for added pseudomonal coverage. Will dc vancomycin as she is MRSA negative. Will also blanca-culture to assess for other sources of infection. Will hold lasix as patient is septic. Will also hold tube feeds at midnight as surgeon plans for debridement of sacral decubitus ulcer.
--- NOTE | 2024-05-22 16:33 | ESCONSULT_ITS ---
<Statement entered by Alfa Guevara MD - 05/23/24 08:56> I have personally seen and examined the patient separately on the above date of service and discussed the plan of care with the resident. I reviewed the resident Dr. Leonela Hamilton consultation note and agree with the resident findings and plan in the note above and have also edited the documentation to reflect my findings and plan. A 83-year-old female from the subacute nursing facility with the significant past medical history with multiple comorbidities including chronic respiratory failure status post tracheostomy, multiple CVAs and history of PEG tube placement, diabetes mellitus, hypertension, seizure disorder, paroxysmal atrial fibrillation presented to the hospital for further evaluation of possible infection or sepsis as well as some shortness of breath. Patient admitted to the regular nursing floor and was started on IV antibiotics and also started on diuresis with which the patient diuresed well. Echocardiogram was already completed and showed normal ejection fraction at 55 to 60% and diastolic dysfunction stage II normal RV size and function and RVSP mild to moderately elevated at 45 mmHg along with moderate to severe MR, moderate TR and large pleural effusion was noted. Mild MAC and aortic valve stenosis without stenosis. Initial chest x-ray did show vascular congestion along with significant left- sided pleural effusion and possible underlying pneumonia. Patient had bedside precautions is number with removal of 1.3 L. Patient breathing has been better since then. Patient is already on antibiotics as well as some nebulizations for acute on chronic respiratory failure. 1. Acute on chronic hypoxic respiratory failure status post tracheostomy- Secondary to the large left pleural effusion, pneumonia and possible CHF exacerbation 2. Sepsis secondary to underlying pneumonia and possible sacral ulcer 3. New onset diastolic CHF HFpEF with acute exacerbation 4. Bilateral pneumonia 5. History of A-fib paroxysmal on anticoagulation and rate control 6. Multiple CVAs-bedbound 6. Diabetes mellitus type 2, 7. Hypertension 8. Chronic sacral ulcer- 9. Status post PEG tube 10. Seizure disorder Patient apparently was diuresed with Lasix IV is since admission and patient appears to have improvement but she still has around the 1+ edema mostly noted near the thighs, sacrum which is the most dependent area for the patient at the present point of time. Patient initial x-ray also showed vascular congestion and also had pleural effusions. Patient's initial ALT and AST were elevated and are all trending down indicating possible hepatic congestion versus abnormal LFTs could be also from the sepsis. BUN is improved from 51-47 with the diuresis which also indicates possible cardiorenal syndrome and will need additional diuresis and oral diuretic at the time of discharge. Check BMP for now. Strict input output, daily weights and low-sodium tube feeds Regarding the paroxysmal atrial fibrillation-rate is well-controlled and patient is in sinus rhythm and recommend to continue the beta-alysia as well as amiodarone and Eliquis for anticoagulation. Management of rest of the medical conditions as per primary team and other consultants. Thank you for the consult and allowing me to participate in the care of the patient. Cardiology will continue to follow. Alfa Guevara M.D. Interventional Cardiology HPI Data of Consult Requesting Physician: Marlena Minaya DO Admitting Provider: Marlena Minaya DO Attending Provider: Marlena Minaya DO Primary Care Provider: Misha Hernandez MD Consult Narrative History of present illness: Pt has history of multiple CVA's and chronically non verbal at baseline. Pt is from subacute facility chronically s/p tracheostomy and PEG tube placement. Pt and NOK unable to provide history therefore major of history is taken from chart reviewing and discussing the case with current the pt's primary hospitalist team. Ms. Guaman is an 83 year female with past medical history significant for Hypertension, non-insulin dependent type 2 diabetes, seizure disorder, Hx of a- fib and hx of multiple CVA's. Pt is chronically non verbal since the CVA's and has been tracheostomy with PEG tube placement unsure of when as Pt first arrived at [facility] subacute facility in March 2024. Pt was recently admitted to the hospital in mar 2024 with similar concerns of sepsis secondary to pneumonia and significant pleural effusions for which pt underwent thoracenthesis. Pt was on treatment with antibiotics and was discharged on 04/27/24 back to the facility after improvement of symptoms. Pt was brought back to the ED on 05/19/24 for recurrent fevers and reaccumulation of large left pleural effusions. Current Labs and Images Vitals: Current BP is 131/89, HR 79, RR 20, Pt is on a mechanical ventilation via tracheostomy Labs: Leukocytosis (WBC 27.9), Hgb 7.5, Hct 23.1, BUN 47, Cr 1.0 eGFR 56, Glucose 179, AST 45, ALT 78 Images: EKG Sinus tachycardia, possible old AR CRX- [id number] heart failure, Moderate bilateral pleural effusions, Prominent vascular congestion with perihilar basilar edema Lumbar spine XR- No tony cortical bone destruction involving the lumbar spine Echo done on 05/21/24 LV appears normal with EF 55-60%. Diastolic Dysfunction II is present. RV has mildly elevated RVSP of 45 mmHg MV has mod-severe MR. mild MAC AOV looks sclerotic. TV has mild to moderate TR. Large pleural Effusion present. PMH: Hx. of A-fib, Hx. of CVA, HTN, T2DM, seizures disorder PSH: unclear except tracheostomy and PEG tube placement SH: unknown Home Meds: amiodarone, amlodipine, eliquis, metoprolol tartrate, atorvastatin cc:: cc: Marlena Minaya DO Review of Systems Review of Systems Systems Reviewed: All systems reviewed, normal except as documented Exam Vital Signs Temp Pulse Resp BP Pulse Ox O2 Del Method O2 Flow Rate 97.0 F 79 20 131/89 H 97 Mechanical Ventilation 10 05/22/24 16:00 05/22/24 16:00 05/22/24 16:00 05/22/24 16:00 05/22/24 16:00 05/22/24 16:00 05/22/24 16:00 FiO2 40 05/22/24 16:00 Narrative Exam GENERAL: Elderly frail female, appears pale and chronically ill NEURO: unable to asses as pt is chronically non verbal and bedbound HEENT: Atraumatic, Normocephalic. mucous membranes moist. Eyes open, symmetrical, & clear HEART: Normal Heart Sounds LUNGS: Clear to auscultation with no wheezing or crackles. ABDOMEN: soft, non-distended, non-tender, bowel sounds heard, no guarding or rebound tenderness SKIN: No Rash or ecchymoses, deep sacral ulcer EXTREMITIES: No edema, pedal pulses palpated, unable to move her extremities - contracted LE , dependent edema Results Labs 05/22/24 04:29 05/22/24 04:29 Labs: Short CBC 05/22/24 Range/Units 04:29 WBC 27.9 H D (3.6-11.0) Thou/mm3 Hgb 7.5 L (12.0-16.0) g/dL Hct 23.1 L (36.0-46.0) % Plt Count 342 (140-440) Thou/mm3 BMP 05/22/24 04:29 Sodium 137 Potassium 4.2 Chloride 99 Carbon Dioxide 28.0 BUN 47 H Creatinine 1.0 Glucose 179 H Calcium 7.5 L Liver Function 05/22/24 Range/Units 04:29 Total Bilirubin 0.2 L (0.3-1.2) mg/dL AST 45 H (0-34) U/L ALT 78 H (10-49) U/L Alkaline Phosphatase 129 H (46-116) U/L Albumin 2.6 L (3.4-4.8) gm/dL ABG Interpretation ABG results: 05/20/24 05/20/24 07:00 11:00 ABG pH 7.40 7.43 ABG pCO2 45 41 ABG pO2 44 L* 53 L* ABG HCO3 28 H 27 H ABG O2 Saturation 94 100 H ABG Base Excess 3 3 Quality Measures Quality Measures none Advance care planning discussed with:: other Medications Home Medications and Allergies Home Medications ?Medication ?Instructions ?Recorded ?Confirmed ?Type acetaminophen 325 mg tablet 325 mg feeding tube Q6H SC N fever 04/25/24 05/20/24 History or pain acetylcysteine 100 mg/mL (10 %) 2 ml feeding tube Q8H 04/25/24 05/20/24 History solution amiodarone 200 mg tablet 200 mg feeding tube DAILY 05/20/24 History amlodipine 10 mg tablet 10 mg feeding tube QDAY 03/2905/20/24 History apixaban 2.5 mg tablet (Eliquis) 2.5 mg feeding tube B ID 04/25/24 05/20/24 History Held on 04/26/24. Instructions: In setting of GI bleed , untill you see PCP atorvastatin 80 mg tablet 80 mg feeding tube HS 05/20/24 History bisacodyl 5 mg tablet,delayed 5 mg feeding tube Q6H SC N 04/25/24 05/20/24 History release (Gentle Laxative constipation (bisacodyl)) insulin regular human 100 unit/mL 1 sliding scale dose subcut Q6H 04/25/24 05/20/24 History (3 mL) subcutaneous pen (Novolin R FlexPen) ipratropium 0.5 mg-albuterol 3 mg 3 ml inhalation Q6H PRN shortness 04/25/24 05/20/24 History (2.5 mg base)/3 mL nebulization of breath soln lactulose 10 gram/15 mL oral 10 g feeding tube Q6H 05/20/24 History solution (Enulose) metoprolol tartrate 25 mg tablet 25 mg feeding tube Q1 2H 04/25/24 05/20/24 History calcium 600 mg (as 1 cap PO DAILY 05/20/2404/29 History carbonate)-vitamin D3 5 mcg (200 unit) capsule (Calcium 600 + D(3)) sennosides 8.6 mg tablet 8.6 mg feeding tube BID 04/2905/20/24 History (Black-Draught Lax-Senna) Allergies Allergy/AdvReac Type Severity Reaction Status Date / Time No Known Allergies Allergy Verified 04/13/24 19:30 Visit Medications Acetaminophen (Acetaminophen Viviana 325 Mg/10 Ml Udc) 650 mg GT Q6HR PRN PRN Reason: Pain(1-3) Or Fever > 100.3 Stop: 06/18/24 14:45 Last Admin: 05/21/24 16:34 Dose: 650 mg Hydrocodone Bitart/Acetaminophen (Hydrocodone/Apap 5/325 Tablet) 1 tab GT Q4HR PRN PRN Reason: PAIN SCALE 4-10(Mod-Sev Stop: 05/24/24 14:28 Albuterol/Ipratropium (Albuterol/Ipratropium (Duoneb) Rt Viviana 3 Ml Nebu) 3 ml INH Q6HRRT AMARJIT Stop: 06/18/24 18:59 Last Admin: 05/22/24 13:33 Dose: 3 ml Amiodarone HCl (Amiodarone Hcl 200 Mg Tablet) 200 mg GT DAILY AMARJIT Stop: 06/19/24 08:59 Last Admin: 05/22/24 08:19 Dose: 200 mg Atorvastatin Calcium (Atorvastatin Calcium 20 Mg Tablet) 40 mg GT HS AMARJIT Stop: 06/18/24 20:59 Last Admin: 05/21/24 21:17 Dose: 40 mg Collagenase (Collagenase Oint 30 Gm Tube) 0 gm TOP BID AMARJIT Stop: 06/19/24 08:59 Last Admin: 05/22/24 08:18 Dose: 1 applicatio Dextrose (Dextrose 50%-Water Inj 50 Ml Syringe) 50 ml IV Q15MIN PRN PRN Reason: BG <50 OR BG <70 & pt unresponsive Stop: 06/18/24 14:49 Furosemide (Furosemide Inj 10 Mg/Ml 4ml Vial) 40 mg IVP BIDD [facility] Stop: 06/20/24 17:59 Last Admin: 05/22/24 05:11 Dose: 40 mg Glucagon (Glucagon Inj 1 Mg Vial) 1 mg IM Q15MIN PRN PRN Reason: BG <70, and no IV access Cefepime HCl 2 gm/ Sodium (Chloride) 50 mls @ 100 mls/hr IV Q12HR [facility] Stop: 05/29/24 09:08 Last Infusion: 05/22/24 10:54 Dose: Infused Insulin Human Lispro (Insulin Lispro (Admelog) 1 Unit/0.01 Ml Unit) 0 unit SC Q6HR [facility]; Protocol Stop: 06/18/24 17:59 Last Admin: 05/22/24 11:40 Dose: 2 unit Lactulose (Lactulose Syrup 20 Gm/30 Ml Udc) 10 gm GT DAILY PRN; Protocol PRN Reason: Constipation Stop: 06/19/24 08:59 Metoprolol Tartrate (Metoprolol Tartrate 25 Mg Tablet) 25 mg GT BID [facility] Stop: 06/18/24 20:59 Last Admin: 05/22/24 08:18 Dose: 25 mg Ondansetron HCl (Ondansetron Inj 2 Mg/Ml Inj 2 Ml) 4 mg IV Q6H PRN; Protocol PRN Reason: NAUSEA OR VOMITING Stop: 06/18/24 14:23 Pantoprazole Sodium (Pantoprazole Inj 40 Mg Vial) 40 mg IVP QDAY [facility] Stop: 06/18/24 14:29 Last Admin: 05/22/24 08:18 Dose: 40 mg Pharmacy Consult (Vancomycin Pharmacy To Dose 1 Each Each) 1 each IV QDAY PRN PRN Reason: PROTOCOL Stop: 06/19/24 08:59 Sennosides (Senna Tablet) 1 tab GT QDAY [facility]; Protocol Stop: 06/19/24 08:59 Last Admin: 05/22/24 08:19 Dose: Not Given Discontinued Medications Acetaminophen (Acetaminophen Viviana 325 Mg/10 Ml Udc) 650 mg GT X1 ONE Stop: 05/19/24 08:18 Last Admin: 05/19/24 08:38 Dose: 650 mg Acetaminophen (Acetaminophen Viviana 325 Mg/10 Ml Udc) 650 mg GT Q6HR PRN PRN Reason: Pain Or Fever > 100.3 Stop: 06/18/24 14:45 Acetylcysteine (Acetylcysteine Rt 10% 10 Ml Nebu) 2 ml GT Q8HR AMARJIT Stop: 06/18/24 21:59 Acetylcysteine (Acetylcysteine Rt 10% 10 Ml Nebu) 2 ml GT Q6HRRT AMARJIT Stop: 06/18/24 18:59 Acetylcysteine (Acetylcysteine Rt 10% 10 Ml Nebu) 2 ml GT Q8HR AMARJIT Stop: 06/18/24 15:29 Acetylcysteine (Acetylcysteine Rt 10% 10 Ml Nebu) 2 ml GT Q8HR AMARJIT Stop: 06/18/24 15:29 Last Admin: 05/19/24 16:44 Dose: Not Given Acetylcysteine (Acetylcysteine Rt Viviana 10% 4 Ml Nebu) 2 ml GT Q8HR AMARJIT Stop: 06/18/24 16:44 Last Admin: 05/22/24 15:12 Dose: Not Given Furosemide (Furosemide Inj 10 Mg/Ml 4ml Vial) 40 mg IVP X1 ONE Stop: 05/20/24 07:24 Last Admin: 05/20/24 07:34 Dose: 40 mg Furosemide (Furosemide Inj 10 Mg/Ml 4ml Vial) 40 mg IVP QDAY AMARJIT Stop: 06/20/24 08:59 Last Admin: 05/21/24 08:54 Dose: 40 mg Sodium Chloride (Ns) 1,000 mls @ 999 mls/hr IV .Q1H1M ONE Stop: 05/19/24 09:17 Last Infusion: 05/19/24 09:38 Dose: Infused Piperacillin Sod/Tazobactam (Sod 3.375 gm/ Sodium Chloride) 50 mls @ 100 mls/hr IV X1 ONE Stop: 05/19/24 10:55 Last Infusion: 05/19/24 11:27 Dose: Infused Sodium Chloride (Ns) 1,000 mls @ 999 mls/hr IV .Q1H1M ONE Stop: 05/19/24 11:26 Last Infusion: 05/19/24 12:31 Dose: Infused Vancomycin HCl 1,000 mg/ (Sodium Chloride) 250 mls @ 150 mls/hr IV X1 ONE Stop: 05/19/24 12:06 Last Infusion: 05/19/24 13:30 Dose: Infused Piperacillin Sod/Tazobactam (Sod 3.375 gm/ Sodium Chloride) 50 mls @ 12.5 mls/hr IV Q8HR AMARJIT Stop: 05/26/24 21:59 Last Infusion: 05/22/24 09:12 Dose: Infused Piperacillin Sod/Tazobactam (Sod 3.375 gm/ Sodium Chloride) 50 mls @ 100 mls/hr IV X1 ONE Stop: 05/19/24 15:14 Last Infusion: 05/19/24 16:00 Dose: Infused Vancomycin/Sodium Chloride (Vancomycin/Ns 750 Mg Ivpb) 750 mg in 150 mls @ 120 mls/hr IV Q12H AMARJIT Stop: 05/26/24 21:59 Last Infusion: 05/22/24 07:05 Dose: Infused Dextrose (D10w 1000 Ml) 1,000 mls @ 100 mls/hr IV .Q10H AMARJIT Stop: 05/20/24 00:59 Last Admin: 05/19/24 15:09 Dose: Not Given Ibuprofen (Ibuprofen Susp 100 Mg/5 Ml Udc) 600 mg GT X1 ONE Stop: 05/19/24 08:18 Last Admin: 05/19/24 08:38 Dose: 600 mg Morphine Sulfate (Morphine Sulf Inj 10 Mg/Ml Vial) 2 mg IVP X1 ONE Stop: 05/20/24 07:25 Last Admin: 05/20/24 07:32 Dose: 2 mg Morphine Sulfate (Morphine Sulf Inj 10 Mg/Ml Vial) 1 mg IVP X1 ONE Stop: 05/20/24 07:28 Sodium Chloride (Sodium Chloride Rt 10% 15 Ml Nebu) 5 ml INH X1 ONE Stop: 05/19/24 16:12 Last Admin: 05/20/24 03:54 Dose: Not Given Assessment & Plan Plan Ms. Guaman is an 83 year female with past medical history significant for Hypertension, non-insulin dependent type 2 diabetes, seizure disorder, Hx of a- fib and hx of multiple CVA's. Pt is chronically non verbal since the CVA's and has been tracheostomy with PEG tube placement unsure of when as Pt first arrived at [facility] subacute facility in March 2024. Pt was brought back to the ED on 05/19/24 for recurrent fevers and reaccumulation of large left pleural effusions. #Acute hypoxic respiratory failure in the setting of #Sepsis 2/2 #bilateraly pneumonia #Pleural effusions s/p thoracenthesis -Pt presented from subacute due to recurrent fevers -RSV, influenza A & B and COVID negative -SIRS 06/29 met: leukocytosis, tachycardia, tachyapnea and fever -CRX- [id number] heart failure, Moderate bilateral pleural effusions, Prominent vascular congestion with perihilar basilar edema. Extensive pneumonia and/or edema throughout the lung alfaro with large layered left pleural effusion -left thoracenthesis done on 05/20 drained 1300 cc of pleural fluid sent for cytology. -Pt is on antibiotics and Duonebs #New onset of diastolic CHF- HFpEF #Acute exacerbation of CHF- improved -although pt does appear to be fluid overloaded on physical examination and unable to provide history of symptoms echo done on 05/21/24 LV appears normal with EF 55-60%. Diastolic Dysfunction II is present. RV has mildly elevated RVSP of 45 mmHg MV has mod-severe MR. mild MAC AOV looks sclerotic. TV has mild to moderate TR. Large pleural Effusion present. -Pt is net negative 690 cc -Pt was on lasix however they are on hold due to concerns for sepsis. _recommend resuming lasix with albumin after sepsis has resolved #Hx of A-fib -Pt has history of A-fib which is rate and rhythm controlled with Amiodarone and metoprolol -EKG shows sinus rhythm -CHADsVAS score- 7 -HAS-BLED score 3 -Pt is rate and rhythm controlled with amiodarone and metoprolol and for anticoagulation pt is on eliquis #Primary Hypertension -Pt's home amlodipine is not resumed. Pt BP is well controlled #Insulin dependent type 2 diabetes -A1c 6.4 on 04/22/24 -Pt is on insulin sliding scale #Sacral ulcer -Pt has deep sacral ulcer for which she will undergo debrievement with general surgery on 05/22 #History of seizure disorder -Pt is currently not on antiepileptic meds #Hx of CVA -Pt has history of multiple CVA with residual deficit and non verbal -Pt is s/p tracheostomy and PEG tube placement -Pt is on statin Assessment and plan discussed with my attending physician Dr. Ismael Hamilton (PGY-1)- Internal medicine resident
--- NOTE | 2024-05-22 17:07 | PC.SS ---
Rounding Note: Patient developed a fever overnight. Sepsis workup has been ordered.
[2024-05-22] MEDS: ATORVASTATIN CALCIUM 20 MG TABLET 40 MG GT (20:32)
[2024-05-23] VITALS (16 sets, daily range): BP systolic 122–138; BP diastolic 46–61; PULSE 60–81; RESP 17–27; TEMP 36.7–37.6; O2SAT 92–100; BMI 20.5
[2024-05-23] MEDS: ALBUTEROL/IPRATROPIUM (Duoneb) RT SOL 3 ML NEBU INH ×4 (00:48→19:06)
[2024-05-23 06:09] LABS: Basophils % (Auto) 0 % (0-2.5); Eosinophils # (Auto) 0.1 Thou/mm3 (0.0-0.5); Eosinophils % (Auto) 0 % (0-10); Hematocrit 23.4 % (36.0-46.0); Immature Granulocytes % (Auto) 1 % (0-0); Immature Granulocytes Auto 0.13 Thou/mm3 (0.00-0.00); Lymphocytes # (Auto) 1.3 Thou/mm3 (1.0-4.8); Lymphocytes % (Auto) 6 % (10-50); Mean Corpuscular HGB Conc 32.1 g/dl (31.0-37.0); Mean Corpuscular Hemoglobin 28.7 pg (25.0-35.0); Mean Corpuscular Volume 90 fL (80-100); Monocytes # (Auto) 1.4 Thou/mm3 (0.0-0.8); Monocytes % (Auto) 6 % (0-12); Neutrophils # (Auto) 18.7 Thou/mm3 (1.8-7.7); Neutrophils % (Auto) 86 % (37-80); Nucleated Red Blood Cell % 0 /100 WBC (0); Platelet Count 315 Thou/mm3 (140-440); RDW Standard Deviation 48.2 fL (36.4-46.3); Red Blood Count 2.61 Miln/mm3 (4.00-5.20)
[2024-05-23 06:18] LABS: White Blood Count 21.6 Thou/mm3 (3.6-11.0)
[2024-05-23 06:19] LABS: Hemoglobin 7.5 g/dL (12.0-16.0)
[2024-05-23 06:36] LABS: B-Type Natriuretic Peptide 2371 pg/mL (0-100)
[2024-05-23 06:44] LABS: Alanine Aminotransferase 66 U/L (10-49); Albumin, Serum 2.8 gm/dL (3.4-4.8); Albumin/Globulin Ratio 0.9 (1.2-2.2); Anion Gap 9 (7-16); Aspartate Amino Transferase 31 U/L (0-34); BUN/Creatinine Ratio 39 Ratio (12-20); Bilirubin,Total 0.3 mg/dL (0.3-1.2); Blood Urea Nitrogen 35 mg/dL (9-23); Carbon Dioxide 28.4 mMol/L (20.0-31.0); Chloride 101 mMol/L (98-107); Creatinine (Component) 0.9 mg/dL (0.6-1.3); Estimated Creatinine Clearance 35.7 mL/min (>60); Globulin 3.2 gm/dL (2.3-3.5); Glucose 162 mg/dL (74-106); Magnesium 2.2 mg/dL (1.6-2.6); Osmolality,Calculated 287 (275-295); Phosphorous 3.3 mg/dL (2.4-5.1); Potassium 3.7 mMol/L (3.4-5.1); Sodium 138 mMol/L (136-145); Vancomycin,Random 16.3 mcg/mL; eGFR > 60 See Note
[2024-05-23 06:57] LABS: Alkaline Phosphatase 107 U/L (46-116)
[2024-05-23] MEDS: POTASSIUM CHL 10 mEq IVPB 10 MEQ/100 ML BAG 100 MEQ IV ×4 (08:22→12:00)
[2024-05-23] MEDS: CEFEPIME INJ 2 GM in SODIUM CHLORIDE 0.9% (Popper) 50 ML IV ×2 (08:22→21:00)
[2024-05-23] MEDS: AMIODARONE HCL 200 MG TABLET GT (08:24)
[2024-05-23] MEDS: PANTOPRAZOLE INJ 40 MG VIAL IVP (08:24)
[2024-05-23] MEDS: METOPROLOL TARTRATE 25 MG TABLET GT ×2 (08:24→21:00)
[2024-05-23] MEDS: COLLAGENASE OINT 30 GM TUBE TOP (08:25)
--- NOTE | 2024-05-23 09:22 | ESPR_ITS ---
<Statement entered by Pelon Judd MD - 05/23/24 18:42> I discussed with and supervised the manager of international physician involved in the care of this patient. Patient assessment and plan was discussed with entire medicine team, including my attending. I agree with the assessment and plan as documented by manager of international doctor. Patient care was discussed with my attending physician Dr. Carolina Judd, PGY-2 Documentation for date of: 05/23/24 Subjective Subjective Interval history: Patient was seen and examined at bedside this AM. Overnight patient desaturated and was placed on mechanical ventilation. Tube feeds held since midnight, adequate urine output and mentation is at baseline. Patient responsive today, tracking with her eyes and responsive to her name. From telemetry review patient and sinus rhythm overnight with heart rate between 80s?90s. K 3.7, Mg 2.2. Repleted with KCl 40 mEq IV x 1 will Keep K>4 and Mg >2 at all times to avoid arrhythmias Patient had fluid balance of - 680 cc in past 24 hours. Lasix on hold due to suspicion for sepsis. WBC downtrending to 21.6 from 27.9. Day 2 cefepime 2 g IV twice daily Blood culture no bacterial growth x 24 hours Urine culture pending Patient had debridement of sacral ulcer by general surgeon, Dr. Garrett today. Will restart Eliquis tomorrow once hemoglobin remains stable Exam Vital Signs Temp Pulse Resp BP Pulse Ox O2 Del Method O2 Flow Rate 99.5 F 74 22 H 122/46 L 100 Mechanical Ventilation 10 05/23/24 07:37 05/23/24 08:24 05/23/24 07:37 05/23/24 08:24 05/23/24 07:37 05/23/24 07:37 05/23/24 07:37 FiO2 40 05/23/24 07:37 Narrative Exam Constitutional Patient on mechanical ventilation HEENT Both eyes open and moving spontaneously, tracheostomy tube insitu, exit site clean Respiratory Chest normal on inspection and mechanically ventilated breath sounds Cardiovascular S1 and S2 audible, RRR. No murmurs carotid bruit. No gross JVD. Abdominal Soft and non tender to palpation in all quadrants. PEG tube noted. Exit site clean BS + Genitourinary No bladder tenderness, no flank pain. Normal to palpation Musculoskeletal Increased tone in lower extremities. No lower extremity swelling Objective Labs 05/24/24 05:02 05/24/24 05:02 Labs: Laboratory Results - last 24 hr 05/23/24 05:55 WBC 21.6 H D RBC 2.61 L Hgb 7.5 L Hct 23.4 L MCV 90 MCH 28.7 MCHC 32.1 RDW Std Deviation 48.2 H Plt Count 315 Neut % (Auto) 86 H Lymph % (Auto) 6 L [place] % (Auto) 6 Eos % (Auto) 0 Baso % (Auto) 0 Neut # (Auto) 18.7 H Lymph # (Auto) 1.3 [place] # (Auto) 1.4 H Eos # (Auto) 0.1 Baso # (Auto) 0.0 Immature Gran # (Auto) 0.13 H Absolute Nucleated RBC 0.00 Immature Gran % 1 H Nucleated RBC % 0 Sodium 138 Potassium 3.7 D Chloride 101 Carbon Dioxide 28.4 Anion Gap 9 BUN 35 H Creatinine 0.9 Estim Creat Clear Calc 35.7 L eGFR > 60 BUN/Creatinine Ratio 39 H Glucose 162 H Calculated Osmolality 287 Calcium 8.0 L Corrected Calcium 9.0 Phosphorus 3.3 Magnesium 2.2 Total Bilirubin 0.3 AST 31 ALT 66 H Alkaline Phosphatase 107 D B-Natriuretic Peptide 2371 H* Total Protein 6.0 Albumin 2.8 L Globulin 3.2 Albumin/Globulin Ratio 0.9 L Random Vancomycin 16.3 ABG Interpretation ABG results: 05/20/24 05/20/24 07:00 11:00 ABG pH 7.40 7.43 ABG pCO2 45 41 ABG pO2 44 L* 53 L* ABG HCO3 28 H 27 H ABG O2 Saturation 94 100 H ABG Base Excess 3 3 Quality Measures Quality Measures none Advance care planning discussed with:: other (POLST) Assessment & Plan Assessment Current Active Medications: Generic Name Dose Route Start Last Admin Trade Name Freq PRN Reason Stop Dose Admin Acetaminophen 650 mg 05/20/24 09:38 05/21/24 16:34 Acetaminophen Viviana 325 Mg/10 Ml Udc GT 06/18/24 14:45 650 mg Q6HR PRN Administration Pain(1-3) Or Fever > 100.3 Hydrocodone Bitart/Acetaminophen 1 tab 05/19/24 14:29 Hydrocodone/Apap 5/325 Tablet GT 05/24/24 14:28 Q4HR PRN PAIN SCALE 4-10(Mod-Sev Albuterol/Ipratropium 3 ml 05/19/24 19:00 05/23/24 06:27 Albuterol/Ipratropium (Duoneb) Rt Viviana 3 Ml Nebu INH 06/18/24 18:59 3 ml Q6HRRT AMARJIT Administration Amiodarone HCl 200 mg 05/20/24 09:00 05/23/24 08:24 Amiodarone Hcl 200 Mg Tablet GT 06/19/24 08:59 200 mg DAILY AMARJIT Administration Atorvastatin Calcium 40 mg 05/19/24 21:00 05/22/24 20:32 Atorvastatin Calcium 20 Mg Tablet GT 06/18/24 20:59 40 mg HS AMARJIT Administration Collagenase 0 gm 05/20/24 09:00 05/23/24 08:25 Collagenase Oint 30 Gm Tube TOP 06/19/24 08:59 1 applicatio BID AMARJIT Administration Dextrose 50 ml 05/19/24 14:50 Dextrose 50%-Water Inj 50 Ml Syringe IV 06/18/24 14:49 Q15MIN PRN BG <50 OR BG <70 & pt unresponsive Furosemide 40 mg 05/21/24 18:00 05/22/24 05:11 Furosemide Inj 10 Mg/Ml 4ml Vial IVP 06/20/24 17:59 40 mg BIDD AMARJIT Administration Glucagon 1 mg 05/19/24 14:50 Glucagon Inj 1 Mg Vial IM Q15MIN PRN BG <70, and no IV access Cefepime HCl 2 gm/ Sodium 50 mls @ 100 mls/hr 05/22/24 09:09 05/23/24 08:22 Chloride IV 05/29/24 09:08 100 mls/hr Q12HR AMARJIT Administration Potassium Chloride 10 meq in 100 mls @ 100 mls/hr 05/23/24 07:44 05/23/24 08:22 Kcl Ivpb IV 05/23/24 11:43 100 mls/hr Q1H AMARJIT Administration Insulin Human Lispro 0 unit 05/19/24 18:00 05/23/24 06:09 Insulin Lispro (Admelog) 1 Unit/0.01 Ml Unit SC 06/18/24 17:59 Not Given Q6HR AMARJIT Protocol Lactulose 10 gm 05/19/24 16:14 Lactulose Syrup 20 Gm/30 Ml Udc GT 06/19/24 08:59 DAILY PRN Constipation Protocol Metoprolol Tartrate 25 mg 05/19/24 21:00 05/23/24 08:24 Metoprolol Tartrate 25 Mg Tablet GT 06/18/24 20:59 25 mg BID AMARJIT Administration Ondansetron HCl 4 mg 05/19/24 14:24 Ondansetron Inj 2 Mg/Ml Inj 2 Ml IV 06/18/24 14:23 Q6H PRN NAUSEA OR VOMITING Protocol Pantoprazole Sodium 40 mg 05/19/24 14:30 05/23/24 08:24 Pantoprazole Inj 40 Mg Vial IVP 06/18/24 14:29 40 mg QDAY AMARJIT Administration Pharmacy Consult 1 each 05/20/24 09:00 Vancomycin Pharmacy To Dose 1 Each Each IV 06/19/24 08:59 QDAY PRN PROTOCOL Sennosides 1 tab 05/20/24 09:00 05/23/24 08:25 Senna Tablet GT 06/19/24 08:59 Not Given QDAY [facility] Protocol Plan Patient is an 83-year-old [facility] female, 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 Patient will be admitted for acute respiratory failure with hypoxia secondary to large left-sided pleural effusion in the setting of community-acquired pneumonia. Acute on chronic respiratory failure with hypoxia Community-acquired versus hospital-acquired versus aspiration pneumonia Large Left sided Pleural effusion s/p diagnostic/therapeutic thoracentesis 05/20/2024 SIRS 4/4 - resolving Leukocytosis?improving Lactic acidosis?resolving Medical history is unclear. Patient was recently accepted at subacute unit. She is chronically pegged and trached. Apparently she has been spiking fevers of 101 over the last few days. Met 4/4 SIRS criteria with fever, tachypnea, tachycardia and leukocytosis. Chest x-ray significant for extensive pneumonia and atelectasis left lung. Repeat chest x-ray significant for extensive pneumonia/edema throughout all lung alfaro with large layering left pleural effusion. Chest CT significant for thyromegaly with multiple thyroid nodules, large bilateral pleural effusions, atelectasis and pneumonia left lung base. Mild pneumonia right lung base Lactic acid 2.8 down trended to 0.8 RSV negative MRSA nares negative [05/19] sputum culture grew Staphylococcus aureus. With beta-lactamase activity against ampicillin and penicillin. [05/19] Blood culture negative x 48 hours preliminary [05/22] blood culture negative x 24 hours preliminary Pending urine culture PSI/PORT : 163 points. Risk class V. Hospitalization recommended based on risk Patient had diagnostic/therapeutic left thoracentesis on 05/20/2024. Drained 1300 cc of pleural fluid. Fluid analysis revealed a transudative effusion. Received Zosyn and vancomycin IV for 2 days from [05/19 - 05/21] WBC downtrending to 21.6 from 27.9. Day 2 cefepime 2 g IV twice daily Plan: - Wean from ventilator to blow-by as tolerated ? Pending pleural fluid analysis including Gram stain, culture and cytology. - Continue to hold Lasix due to sepsis ? Continue DuoNebs Q6 hourly - D2 cefepime 2 g IV every 12 hourly for possible ventilator associated pneumonia on [05/22 Newly diagnosed chronic diastolic congestive heart failure with preserved ejection fraction [EF 55 to 60%] Patient has scattered crackles auscultation bilaterally worse on right CXR shows bilateral pleural effusion worse on the left and consolidation of the right around cardiac silhouette. Trans-thoracic echocardiogram completed on 05/21/2024 : LV appears normal with EF 55-60%. Diastolic Dysfunction II is present. RV has mildly elevated RVSP of 45 mmHg MV has mod-severe MR. mild MAC. AOV looks sclerotic Patient had fluid balance of -680 cc in past 24 hours. Lasix on hold due to concerns of sepsis Plan: ? Strict input output charting ? 2G sodium restricted diet ? 1500 cc/day fluid restriction ? Lasix on hold due to concern of sepsis. ? To resume Lasix 40 Mg IV daily with albumin from 05/24 as per cardiology recommendations. - Cardiology, Dr. Guevara consulted for newly diagnosed diastolic heart failure. Appreciate recommendations Sacral ulcer stage II/III Patient has sacral ulcer with minimal slough and some purulent drainage Debridement by general surgeon, Dr. Garrett on 05/23/2024 Plan: - Wound care as per wound care nurse - General Surgery, Dr. Garrett consulted. Appreciate recommendations. Primary HTN A-fib, likely paroxysmal NSTEMI type 1 vs type 2 - resolving HLD HASBLED 4 indicates high risk for major bleed. [id number] indicates 17% stroke/TIA/embolism. Troponin 0.077 ---> 0.238 EKG significant for sinus tachycardia, rate 107. Q waves in septal leads. No acute ST changes. Increasing troponin likely due to stress from diaphoresis and hypoxia. Plan: ? Continue telemetry monitoring ? Continue home medication amiodarone 200 Mg GT daily for rate control ? Continue home medication metoprolol tartrate 25 Mg GT twice daily ? Eliquis on hold for now due to concern for bleeding post procedure. Will resume Eliquis on 05/24 Insulin-dependent diabetes mellitus type 2 [6.4% Home medication insulin sliding scale Plan: ? Insulin sliding scale Hx of seizure disorder Not on home ANTIEPILEPTICS. No signs of seizures. ? Seizure precaution Chronic constipation Likely secondary to CVA. Patient on chronic LAXATIVES. ? Continue LACTULOSE 10 mg GT prn ? Continue senna daily Chronic PEG tube PEG tube appears intact without signs of infection. Plan: ? Tube feeds ? Registered dietitian referral Hx of CVA History of large cerebral vessel occlusion. Chronically trached and pegged. Opens eyes spontaneously. Does not follow command. Health maintenance: Disposition: IV antibiotics. Nebulizations. Wean off ventilator Diet: Tube feeds Lines: pIVs GI Prophylaxis: Pantoprazole IV Thrombo Prophylaxis: SCDs Code status: DNR Plan of care discussed with Attending Dr. Figueroa and PGY2 Dr. Binta Greene MD PGY 1 Attending Provider Attestation/Addendum I reviewed labs, imaging, EKG, home medications and prior available records. Face to face evaluation was performed by me. I have personally examined the patient and discussed assessment and plan with the IM team. I reviewed the resident note and agree with the plan with exceptions as below. Acute on chronic hypoxic respiratory failure Ventilator associated pneumonia Leukocytosis Atrial fibrillation with RVR Chronic sacral wounds Anasarca Pleural effusion Sputum culture showed MSSA. Continue cefepime Trend WBC: Downtrending Continue p.o. amiodarone. Held Eliquis prior to surgical debridement of her chronic wounds Status post pleurocentesis. Examination of the fluid showed transudative pattern She received IV Lasix. That was held prior to surgical debridement Held the tube feeds prior to the surgical
--- NOTE | 2024-05-23 09:26 | PD.RESPRO ---
Documentation for date of: 05/23/24 Subjective Subjective Interval history: No overnight events reported. Patient seen and examined at bedside this morning patient is currently on mechanical ventilation through tracheostomy. Currently sleeping, patient is nonverbal at baseline therefore does not follow commands. Tube feedings are stopped in the morning because patient underwent sacral ulcer debridement today. Telemetry is reviewed patient is in sinus rhythm. Vitals are stable with blood pressure 131/61 and heart rate of 77. Leukocytosis is downtrending, hemoglobin is 7.5 and hematocrit 23.4 and platelet is 315. Potassium is 3.7 and magnesium is 2.2. Keep potassium above 4 and magnesium above 2 at all times. BUN 35, creatinine 0.9, GFR >60, AST 31, ALT 66. BNP 2371. Patient is currently net -461. Lasix is on hold due to concerns for sepsis. Pt will need Lasix upon discharge. Exam Vital Signs Temp Pulse Resp BP Pulse Ox O2 Del Method O2 Flow Rate 99.5 F 74 22 H 122/46 L 100 Mechanical Ventilation 10 05/23/24 07:37 05/23/24 08:24 05/23/24 07:37 05/23/24 08:24 05/23/24 07:37 05/23/24 07:37 05/23/24 07:37 FiO2 40 05/23/24 07:37 Narrative Exam GENERAL: Elderly frail female, appears pale and chronically ill NEURO: unable to asses as pt is chronically non verbal and bedbound HEENT: Atraumatic, Normocephalic. mucous membranes moist. Eyes open, symmetrical, & clear HEART: Normal Heart Sounds LUNGS: Clear to auscultation with no wheezing or crackles. ABDOMEN: soft, non-distended, non-tender, bowel sounds heard, no guarding or rebound tenderness SKIN: No Rash or ecchymoses, deep sacral ulcer EXTREMITIES: No edema, pedal pulses palpated, unable to move her extremities - contracted LE , dependent edema Objective Labs 05/23/24 05:55 05/23/24 05:55 Labs: Laboratory Results - last 24 hr 05/23/24 05:55 WBC 21.6 H D RBC 2.61 L Hgb 7.5 L Hct 23.4 L MCV 90 MCH 28.7 MCHC 32.1 RDW Std Deviation 48.2 H Plt Count 315 Neut % (Auto) 86 H Lymph % (Auto) 6 L [place] % (Auto) 6 Eos % (Auto) 0 Baso % (Auto) 0 Neut # (Auto) 18.7 H Lymph # (Auto) 1.3 [place] # (Auto) 1.4 H Eos # (Auto) 0.1 Baso # (Auto) 0.0 Immature Gran # (Auto) 0.13 H Absolute Nucleated RBC 0.00 Immature Gran % 1 H Nucleated RBC % 0 Sodium 138 Potassium 3.7 D Chloride 101 Carbon Dioxide 28.4 Anion Gap 9 BUN 35 H Creatinine 0.9 Estim Creat Clear Calc 35.7 L eGFR > 60 BUN/Creatinine Ratio 39 H Glucose 162 H Calculated Osmolality 287 Calcium 8.0 L Corrected Calcium 9.0 Phosphorus 3.3 Magnesium 2.2 Total Bilirubin 0.3 AST 31 ALT 66 H Alkaline Phosphatase 107 D B-Natriuretic Peptide 2371 H* Total Protein 6.0 Albumin 2.8 L Globulin 3.2 Albumin/Globulin Ratio 0.9 L Random Vancomycin 16.3 ABG Interpretation ABG results: 05/20/24 05/20/24 07:00 11:00 ABG pH 7.40 7.43 ABG pCO2 45 41 ABG pO2 44 L* 53 L* ABG HCO3 28 H 27 H ABG O2 Saturation 94 100 H ABG Base Excess 3 3 Quality Measures Quality Measures none Advance care planning discussed with:: other Assessment & Plan Assessment Current Active Medications: Generic Name Dose Route Start Last Admin Trade Name Freq PRN Reason Stop Dose Admin Acetaminophen 650 mg 05/20/24 09:38 05/21/24 16:34 Acetaminophen Viviana 325 Mg/10 Ml Udc GT 06/18/24 14:45 650 mg Q6HR PRN Administration Pain(1-3) Or Fever > 100.3 Hydrocodone Bitart/Acetaminophen 1 tab 05/19/24 14:29 Hydrocodone/Apap 5/325 Tablet GT 05/24/24 14:28 Q4HR PRN PAIN SCALE 4-10(Mod-Sev Albuterol/Ipratropium 3 ml 05/19/24 19:00 05/23/24 06:27 Albuterol/Ipratropium (Duoneb) Rt Viviana 3 Ml Nebu INH 06/18/24 18:59 3 ml Q6HRRT AMARJIT Administration Amiodarone HCl 200 mg 05/20/24 09:00 05/23/24 08:24 Amiodarone Hcl 200 Mg Tablet GT 06/19/24 08:59 200 mg DAILY AMARJIT Administration Atorvastatin Calcium 40 mg 05/19/24 21:00 05/22/24 20:32 Atorvastatin Calcium 20 Mg Tablet GT 06/18/24 20:59 40 mg HS AMARJIT Administration Collagenase 0 gm 05/20/24 09:00 05/23/24 08:25 Collagenase Oint 30 Gm Tube TOP 06/19/24 08:59 1 applicatio BID AMARJIT Administration Dextrose 50 ml 05/19/24 14:50 Dextrose 50%-Water Inj 50 Ml Syringe IV 06/18/24 14:49 Q15MIN PRN BG <50 OR BG <70 & pt unresponsive Furosemide 40 mg 05/21/24 18:00 05/22/24 05:11 Furosemide Inj 10 Mg/Ml 4ml Vial IVP 06/20/24 17:59 40 mg BIDD AMARJIT Administration Glucagon 1 mg 05/19/24 14:50 Glucagon Inj 1 Mg Vial IM Q15MIN PRN BG <70, and no IV access Cefepime HCl 2 gm/ Sodium 50 mls @ 100 mls/hr 05/22/24 09:09 05/23/24 08:22 Chloride IV 05/29/24 09:08 100 mls/hr Q12HR AMARJIT Administration Potassium Chloride 10 meq in 100 mls @ 100 mls/hr 05/23/24 07:44 05/23/24 08:22 Kcl Ivpb IV 05/23/24 11:43 100 mls/hr Q1H AMARJIT Administration Insulin Human Lispro 0 unit 05/19/24 18:00 05/23/24 06:09 Insulin Lispro (Admelog) 1 Unit/0.01 Ml Unit SC 06/18/24 17:59 Not Given Q6HR AMARJIT Protocol Lactulose 10 gm 05/19/24 16:14 Lactulose Syrup 20 Gm/30 Ml Udc GT 06/19/24 08:59 DAILY PRN Constipation Protocol Metoprolol Tartrate 25 mg 05/19/24 21:00 05/23/24 08:24 Metoprolol Tartrate 25 Mg Tablet GT 06/18/24 20:59 25 mg BID AMARJIT Administration Ondansetron HCl 4 mg 05/19/24 14:24 Ondansetron Inj 2 Mg/Ml Inj 2 Ml IV 06/18/24 14:23 Q6H PRN NAUSEA OR VOMITING Protocol Pantoprazole Sodium 40 mg 05/19/24 14:30 05/23/24 08:24 Pantoprazole Inj 40 Mg Vial IVP 06/18/24 14:29 40 mg QDAY [facility] Administration Pharmacy Consult 1 each 05/20/24 09:00 Vancomycin Pharmacy To Dose 1 Each Each IV 06/19/24 08:59 QDAY PRN PROTOCOL Sennosides 1 tab 05/20/24 09:00 05/23/24 08:25 Senna Tablet GT 06/19/24 08:59 Not Given QDAY [facility] Protocol Plan Ms. Guaman is an 83 year female with past medical history significant for Hypertension, non-insulin dependent type 2 diabetes, seizure disorder, Hx of a-fib and hx of multiple CVA's. Pt is chronically non verbal since the CVA's and has been tracheostomy with PEG tube placement unsure of when as Pt first arrived at [facility] subacute facility in March 2024. Pt was brought back to the ED on 05/19/24 for recurrent fevers and reaccumulation of large left pleural effusions. #Acute hypoxic respiratory failure in the setting of #Sepsis 2/2 #bilateraly pneumonia #Pleural effusions s/p thoracenthesis -Pt presented from subacute due to recurrent fevers -RSV, influenza A & B and COVID negative -SIRS 4/4 met: leukocytosis, tachycardia, tachyapnea and fever -CRX- Ouvg-[id number] heart failure, Moderate bilateral pleural effusions, Prominent vascular congestion with perihilar basilar edema. Extensive pneumonia and/or edema throughout the lung alfaro with large layered left pleural effusion -left thoracenthesis done on 05/20 drained 1300 cc of pleural fluid sent for cytology. -Pt is on antibiotics and Duonebs #Acute exacerbation of CHF- improved #New onset of diastolic CHF- HFpEF with EF 55-60% -although pt does appear to be fluid overloaded on physical examination with 1+ dependant edema in the upper thigh and unable to provide history of symptoms -CRX- evident of vascular congestion with pleural effusions -BNP 2371 echo done on 05/21/24 LV appears normal with EF 55-60%. Diastolic Dysfunction II is present. RV has mildly elevated RVSP of 45 mmHg MV has mod-severe MR. mild MAC AOV looks sclerotic. TV has mild to moderate TR. Large pleural Effusion present. -Pt is net negative 461cc -Pt was on lasix however they are on hold due to concerns for sepsis. - Strict input output, daily weights and low-sodium tube feeds -recommend resuming lasix with albumin after sepsis has resolved and upon discharge Pt will need Lasix #Hx of A-fib -Pt has history of A-fib which is rate and rhythm controlled with Amiodarone and metoprolol -EKG shows sinus rhythm -CHADsVAS score- 7 -HAS-BLED score 3 -Pt is rate and rhythm controlled with amiodarone and metoprolol and for anticoagulation pt is on eliquis #Primary Hypertension -Pt's home amlodipine is not resumed. Pt BP is well controlled #Insulin dependent type 2 diabetes -A1c 6.4 on 04/22/24 -Pt is on insulin sliding scale #Sacral ulcer -Pt has deep sacral ulcer -Excisional debridement of sacral decubitus ulcer done on 05/22 #History of seizure disorder -Pt is currently not on antiepileptic meds #Hx of CVA -Pt has history of multiple CVA with residual deficit and non verbal -Pt is s/p tracheostomy and PEG tube placement -Pt is on statin Assessment and plan discussed with my attending physician Dr. Ismael Hamilton (PGY-1)- Internal medicine resident Attending Provider Attestation/Addendum I have personally seen and examined the patient separately on the above date of service and discussed the plan of care with the resident. I reviewed the resident Dr. Leonela Hamilton consultation progress note and agree with the resident findings and plan in the note above and have also edited the documentation to reflect my findings and plan. Alfa Guevara M.D. Interventional Cardiology
[2024-05-23] MEDS: SILVER NITRATE 1 APPL EA 3 APPL TOP (09:30)
[2024-05-23] MEDS: MORPHINE SULF INJ 10 MG/ML VIAL 2 MG IVP (09:46)
--- NOTE | 2024-05-23 09:55 | PD.SURCONS ---
HPI Consult details History of present illness: 83F with afib on eliquis, DMII, CVA with trach and PEG in place who was admitted 05/19 with fevers and findings consistent with pneumonia. Pt additionally noted to have a sacral decubitus ulcer Review of Systems Review of Systems ROS Unobtainable: unobtainable due to mental condition Meds Home Medications and Allergies Home Medications ?Medication ?Instructions ?Recorded ?Confirmed ?Type acetaminophen 325 mg tablet 325 mg feeding tube Q6H PRN fever 04/25/24 05/20/24 History or pain acetylcysteine 100 mg/mL (10 %) 2 ml feeding tube Q8H 04/25/24 05/20/24 History solution amiodarone 200 mg tablet 200 mg feeding tube DAILY 04/25/24 05/20/24 History amlodipine 10 mg tablet 10 mg feeding tube QDAY 04/25/24 05/20/24 History apixaban 2.5 mg tablet (Eliquis) 2.5 mg feeding tube BID 04/25/24 05/20/24 History Held on 04/26/24. Instructions: In setting of GI bleed , untill you see PCP atorvastatin 80 mg tablet 80 mg feeding tube HS 04/25/24 05/20/24 History bisacodyl 5 mg tablet,delayed 5 mg feeding tube Q6H PRN 04/25/24 05/20/24 History release (Gentle Laxative constipation (bisacodyl)) insulin regular human 100 unit/mL 1 sliding scale dose subcut Q6H 04/25/24 05/20/24 History (3 mL) subcutaneous pen (Novolin R FlexPen) ipratropium 0.5 mg-albuterol 3 mg 3 ml inhalation Q6H PRN shortness 04/25/24 05/20/24 History (2.5 mg base)/3 mL nebulization of breath soln lactulose 10 gram/15 mL oral 10 g feeding tube Q6H 04/25/24 05/20/24 History solution (Enulose) metoprolol tartrate 25 mg tablet 25 mg feeding tube Q12H 04/25/24 05/20/24 History calcium 600 mg (as 1 cap PO DAILY 05/20/24 05/20/24 History carbonate)-vitamin D3 5 mcg (200 unit) capsule (Calcium 600 + D(3)) sennosides 8.6 mg tablet 8.6 mg feeding tube BID 05/20/24 05/20/24 History (Black-Draught Lax-Senna) Allergies Allergy/AdvReac Type Severity Reaction Status Date / Time No Known Allergies Allergy Verified 04/13/24 19:30 Exam Vital Signs Temp Pulse Resp BP Pulse Ox O2 Del Method O2 Flow Rate 99.5 F 74 22 H 122/46 L 100 Mechanical Ventilation 10 05/23/24 07:37 05/23/24 08:24 05/23/24 07:37 05/23/24 08:24 05/23/24 07:37 05/23/24 07:37 05/23/24 07:37 FiO2 40 05/23/24 07:37 Constitutional Constitutional: no acute distress Routine Respiratory Exam Respiratory: Present no resp distress and patient mechanically ventilated Routine Back/Spine/Pelvis Exam Comments: unstageable sacral decubitus ulcer with necrotic tissue Results Results: Laboratory Laboratory results: results reviewed Assessment & Plan Plan 83F with afib, history of CVAs requiring trach and PEG admitted for pneumonia, with an unstageable sacral decubitus ulcer containing necrotic tissue Tube feeds have been held since midnight, will perform excisional debridement at bedside Informed consent obtained from son
--- NOTE | 2024-05-23 09:57 | PD.SURPROC ---
Procedures - Surgery Procedure Comment Procedure Comment: Excisional debridement of sacral decubitus ulcer Informed consent obtained from son Confirmed that tube feeds were held since last night at midnight Area prepped with Betadine After timeout the necrotic skin was excised with a #11 blade Necrotic tissue was excised to the level of subcutaneous tissue Mild bleeding noted at left lateral aspect of incision which was controlled with direct pressure, silver nitrate cauterization and Surgicel Patient tolerated procedure well Wound packed with alginate and Surgicel and covered with Allevyn No bleeding noted at end of procedure
--- NOTE | 2024-05-23 10:40 | PC.WOUND ---
Assisted Dr. Garrett with bedside excision and debridement of sacrum after consent obtained. Pt tolerated well, morphine IV x 1 given after procedure RR 40's, HR 100's and grimicing. Decreasing to RR 20's, HR 80's appears calm. Placed supine to apply pressure x 1 hour and resumed feedings per Md orders. Nursing to monitor site for bleeding, calcium alginate, surgicel and silver nitrate used. Please call wound RN for any further bleeding. Marzena MONROY aware. Will continue to follow.
[2024-05-23] MEDS: INSULIN LISPRO (AdmeLOG) 1 UNIT/0.01 ML UNIT SC ×2 (11:27→18:05)
--- NOTE | 2024-05-23 12:07 | PC.WOUND ---
Pt seen at bedside obdulio Ivan RN, small dime size strike through on dressing nearest to rectum. Foam dressing lifted no oozing or active bleeding noted. Dressing to be held this evening and I will recheck pt in AM.
--- NOTE | 2024-05-23 14:47 | PC.SS ---
Rounding Note: Patient had debridement procedure conducted today.
[2024-05-23] MEDS: ATORVASTATIN CALCIUM 20 MG TABLET 40 MG GT (21:00)
[2024-05-24] VITALS (14 sets, daily range): BP systolic 111–137; BP diastolic 44–65; PULSE 65–87; RESP 17–36; TEMP 36.2–37.1; O2SAT 90–100; BMI 20.7; BMI 13.9
[2024-05-24] MEDS: ALBUTEROL/IPRATROPIUM (Duoneb) RT SOL 3 ML NEBU INH ×4 (00:50→17:45)
[2024-05-24] MEDS: INSULIN LISPRO (AdmeLOG) 1 UNIT/0.01 ML UNIT SC ×5 (01:17→23:52)
[2024-05-24 05:42] LABS: Basophils # (Auto) 0.1 Thou/mm3 (0.0-0.2); Basophils % (Auto) 0 % (0-2.5); Eosinophils # (Auto) 0.2 Thou/mm3 (0.0-0.5); Eosinophils % (Auto) 1 % (0-10); Hematocrit 22.1 % (36.0-46.0); Immature Granulocytes % (Auto) 1 % (0-0); Immature Granulocytes Auto 0.15 Thou/mm3 (0.00-0.00); Lymphocytes # (Auto) 1.5 Thou/mm3 (1.0-4.8); Lymphocytes % (Auto) 7 % (10-50); Mean Corpuscular HGB Conc 32.6 g/dl (31.0-37.0); Mean Corpuscular Volume 89 fL (80-100); Monocytes # (Auto) 1.5 Thou/mm3 (0.0-0.8); Monocytes % (Auto) 7 % (0-12); Neutrophils # (Auto) 18.1 Thou/mm3 (1.8-7.7); Neutrophils % (Auto) 85 % (37-80); Nucleated Red Blood Cell % 0 /100 WBC (0); Platelet Count 307 Thou/mm3 (140-440); RDW Standard Deviation 48.2 fL (36.4-46.3); Red Blood Count 2.48 Miln/mm3 (4.00-5.20); White Blood Count 21.4 Thou/mm3 (3.6-11.0)
[2024-05-24 05:44] LABS: Hemoglobin 7.2 g/dL (12.0-16.0)
[2024-05-24 06:06] LABS: Alanine Aminotransferase 50 U/L (10-49); Albumin, Serum 2.8 gm/dL (3.4-4.8); Albumin/Globulin Ratio 0.9 (1.2-2.2); Alkaline Phosphatase 105 U/L (46-116); Anion Gap 6 (7-16); Aspartate Amino Transferase 23 U/L (0-34); BUN/Creatinine Ratio 42 Ratio (12-20); Bilirubin,Total 0.4 mg/dL (0.3-1.2); Blood Urea Nitrogen 38 mg/dL (9-23); Calcium 8.1 mg/dL (8.3-10.6); Calcium (Corrected) 9.1 mg/dL (8.5-10.1); Carbon Dioxide 29.2 mMol/L (20.0-31.0); Chloride 103 mMol/L (98-107); Creatinine (Component) 0.9 mg/dL (0.6-1.3); Estimated Creatinine Clearance 35.7 mL/min (>60); Globulin 3.1 gm/dL (2.3-3.5); Glucose 168 mg/dL (74-106); Magnesium 2.3 mg/dL (1.6-2.6); Osmolality,Calculated 288 (275-295); Phosphorous 3.4 mg/dL (2.4-5.1); Potassium 4.6 mMol/L (3.4-5.1); Sodium 138 mMol/L (136-145); Total Protein 5.9 gm/dL (5.7-8.2); Vancomycin,Random 11.1 mcg/mL; eGFR > 60 See Note
--- NOTE | 2024-05-24 08:03 | PC.NURSE ---
Received Call from Dr. Greene. informed to ask RT to switch pt from Ventilator to Blow by. Informed RT Jojo to Switch Pt.
--- NOTE | 2024-05-24 08:17 | PC.NURSE ---
After patient switched to blow by patient dropped to 70's and became diaphoretic. Called RT and switched patient back to mechanical ventilation. Contacted Dr. vizcaino and made aware.
[2024-05-24] MEDS: ALBUMIN HUMAN 25% IVPB 25 GM/100 ML BTL IV (08:59)
[2024-05-24] MEDS: CEFEPIME INJ 2 GM in SODIUM CHLORIDE 0.9% (Popper) 50 ML IV ×2 (09:01→21:25)
[2024-05-24] MEDS: SENNA TABLET 1 TAB GT (09:03)
[2024-05-24] MEDS: PANTOPRAZOLE INJ 40 MG VIAL IVP (09:04)
[2024-05-24] MEDS: AMIODARONE HCL 200 MG TABLET GT (09:05)
[2024-05-24] MEDS: METOPROLOL TARTRATE 25 MG TABLET GT ×2 (09:11→21:26)
[2024-05-24] MEDS: FUROSEMIDE INJ 10 MG/ML 4ML VIAL 40 MG IVP (09:11)
--- NOTE | 2024-05-24 10:13 | ESPR_ITS ---
Documentation for date of: 05/24/24 Subjective Subjective Interval history: No overnight events. Patient seen and examined at bedside. patient remains trached, nonvebal, responds to pain. Patient remains sinus rhythm, heart rate 87, BP 136/65. Afebrile overnight. Labs showed WBC 21.4, Hg 7.2. Recommend further anemia workup including iron studies. Potassium 4.6, Mg 2.3. Keep potassium above 4.0 and magnesium above 2.0. Continue current medical management for afib. Discharge on atleast Lasix 20mg PO daily. Exam Vital Signs Temp Pulse Resp BP Pulse Ox O2 Del Method O2 Flow Rate 98.8 F 87 17 136/65 H 99 Mechanical Ventilation 10 05/24/24 08:00 05/24/24 09:11 05/24/24 08:00 05/24/24 09:11 05/24/24 08:00 05/24/24 08:00 05/24/24 08:00 FiO2 35 05/24/24 08:00 Narrative Exam GENERAL: Elderly frail female, appears pale and chronically ill NEURO: unable to asses as pt is chronically non verbal and bedbound. HEENT: Atraumatic, Normocephalic. mucous membranes moist. Eyes open, symmetrical, & clear HEART: Normal Heart Sounds, regular rate and rhythm. LUNGS: Clear to auscultation with no wheezing or crackles. ABDOMEN: soft, non-distended, non-tender, bowel sounds heard, no guarding or rebound tenderness SKIN: No Rash or ecchymoses, deep sacral ulcer s/p debridement EXTREMITIES: No edema, pedal pulses palpated, unable to move her extremities - contracted LE , minimal dependent edema Objective Labs 05/24/24 05:02 05/24/24 05:02 Labs: Laboratory Results - last 24 hr 05/24/24 05:02 WBC 21.4 H RBC 2.48 L Hgb 7.2 L Hct 22.1 L MCV 89 MCH 29.0 MCHC 32.6 RDW Std Deviation 48.2 H Plt Count 307 Neut % (Auto) 85 H Lymph % (Auto) 7 L [place] % (Auto) 7 Eos % (Auto) 1 Baso % (Auto) 0 Neut # (Auto) 18.1 H Lymph # (Auto) 1.5 [place] # (Auto) 1.5 H Eos # (Auto) 0.2 Baso # (Auto) 0.1 Immature Gran # (Auto) 0.15 H Absolute Nucleated RBC 0.00 Immature Gran % 1 H Nucleated RBC % 0 Sodium 138 Potassium 4.6 D Chloride 103 Carbon Dioxide 29.2 Anion Gap 6 L BUN 38 H Creatinine 0.9 Estim Creat Clear Calc 35.7 L eGFR > 60 BUN/Creatinine Ratio 42 H Glucose 168 H Calculated Osmolality 288 Calcium 8.1 L Corrected Calcium 9.1 Phosphorus 3.4 Magnesium 2.3 Total Bilirubin 0.4 AST 23 ALT 50 H Alkaline Phosphatase 105 Total Protein 5.9 Albumin 2.8 L Globulin 3.1 Albumin/Globulin Ratio 0.9 L Random Vancomycin 11.1 ABG Interpretation ABG results: 05/20/24 05/20/24 07:00 11:00 ABG pH 7.40 7.43 ABG pCO2 45 41 ABG pO2 44 L* 53 L* ABG HCO3 28 H 27 H ABG O2 Saturation 94 100 H ABG Base Excess 3 3 Quality Measures Quality Measures VTE prophylaxis Advance care planning discussed with:: patient Assessment & Plan Assessment Current Active Medications: Generic Name Dose Route Start Last Admin Trade Name Freq PRN Reason Stop Dose Admin Acetaminophen 650 mg 05/20/24 09:38 05/21/24 16:34 Acetaminophen Viviana 325 Mg/10 Ml Udc GT 06/18/24 14:45 650 mg Q6HR PRN Administration Pain(1-3) Or Fever > 100.3 Hydrocodone Bitart/Acetaminophen 1 tab 05/19/24 14:29 Hydrocodone/Apap 5/325 Tablet GT 05/24/24 14:28 Q4HR PRN PAIN SCALE 4-10(Mod-Sev Albuterol/Ipratropium 3 ml 05/19/24 19:00 05/24/24 06:46 Albuterol/Ipratropium (Duoneb) Rt Viviana 3 Ml Nebu INH 06/18/24 18:59 3 ml Q6HRRT AMARJIT Administration Amiodarone HCl 200 mg 05/20/24 09:00 05/24/24 09:05 Amiodarone Hcl 200 Mg Tablet GT 06/19/24 08:59 200 mg DAILY AMARJIT Administration Atorvastatin Calcium 40 mg 05/19/24 21:00 05/23/24 21:00 Atorvastatin Calcium 20 Mg Tablet GT 06/18/24 20:59 40 mg HS AMARJIT Administration Collagenase 0 gm 05/20/24 09:00 05/24/24 09:04 Collagenase Oint 30 Gm Tube TOP 06/19/24 08:59 Not Given BID AMARJIT Dextrose 50 ml 05/19/24 14:50 Dextrose 50%-Water Inj 50 Ml Syringe IV 06/18/24 14:49 Q15MIN PRN BG <50 OR BG <70 & pt unresponsive Fluconazole 200 mg 05/24/24 10:15 Fluconazole Susp 40 Mg/Ml Ml GT 05/31/24 10:14 QDAY AMARJIT Furosemide 40 mg 05/24/24 09:00 05/24/24 09:11 Furosemide Inj 10 Mg/Ml 4ml Vial IVP 06/23/24 08:59 40 mg QDAY AMARJIT Administration Glucagon 1 mg 05/19/24 14:50 Glucagon Inj 1 Mg Vial IM Q15MIN PRN BG <70, and no IV access Cefepime HCl 2 gm/ Sodium 50 mls @ 100 mls/hr 05/22/24 09:09 05/24/24 09:01 Chloride IV 05/29/24 09:08 100 mls/hr Q12HR AMARJIT Administration Insulin Human Lispro 0 unit 05/19/24 18:00 05/24/24 05:24 Insulin Lispro (Admelog) 1 Unit/0.01 Ml Unit SC 06/18/24 17:59 2 unit Q6HR AMARJIT Administration Protocol Lactulose 10 gm 05/19/24 16:14 Lactulose Syrup 20 Gm/30 Ml Udc GT 06/19/24 08:59 DAILY PRN Constipation Protocol Metoprolol Tartrate 25 mg 05/19/24 21:00 05/24/24 09:11 Metoprolol Tartrate 25 Mg Tablet GT 06/18/24 20:59 25 mg BID AMARJIT Administration Ondansetron HCl 4 mg 05/19/24 14:24 Ondansetron Inj 2 Mg/Ml Inj 2 Ml IV 06/18/24 14:23 Q6H PRN NAUSEA OR VOMITING Protocol Pantoprazole Sodium 40 mg 05/19/24 14:30 05/24/24 09:04 Pantoprazole Inj 40 Mg Vial IVP 06/18/24 14:29 40 mg QDAY AMARJIT Administration Sennosides 1 tab 05/20/24 09:00 05/24/24 09:03 Senna Tablet GT 06/19/24 08:59 1 tab QDAY AMARJIT Administration Protocol Plan Ms. Rowena is an 83 year female with past medical history significant for Hypertension, non-insulin dependent type 2 diabetes, seizure disorder, Hx of a- fib and hx of multiple CVA's. Pt is chronically non verbal since the CVA's and has been tracheostomy with PEG tube placement unsure of when as Pt first arrived at [facility] subacute facility in March 2024. Pt was brought back to the ED on 05/19/24 for recurrent fevers and reaccumulation of large left pleural effusions. #Acute hypoxic respiratory failure in the setting of #Sepsis 2/2 #bilateraly pneumonia #Pleural effusions s/p thoracenthesis Pt presented from subacute due to recurrent fevers. RSV, influenza A & B and COVID negative. SIRS 4/4 met: leukocytosis, tachycardia, tachyapnea and fever. CRX- [id number] heart failure, Moderate bilateral pleural effusions, Prominent vascular congestion with perihilar basilar edema. Extensive pneumonia and/or edema throughout the lung alfaro with large layered left pleural effusion. left thoracenthesis done on 05/20 drained 1300 cc of pleural fluid sent for cytology. -Pt is on antibiotics and Duonebs #Acute exacerbation of CHF- improved #New onset of diastolic CHF- HFpEF with EF 55-60% Although pt does appear to be fluid overloaded on physical examination with 1+ dependant edema in the upper thigh and unable to provide history of symptoms CRX- evident of vascular congestion with pleural effusions BNP 2371 Echo done on 05/21/24 LV appears normal with EF 55-60%. Diastolic Dysfunction II is present. RV has mildly elevated RVSP of 45 mmHg MV has mod-severe MR. mild MAC AOV looks sclerotic. TV has mild to moderate TR. Large pleural Effusion present. Pt is net negative 2L for length of stay. Pt was on lasix however they are on hold due to concerns for sepsis. -Strict input output, daily weights and low-sodium tube feeds -recommend discharging on atleast 20mg PO Lasix daily #Hx of A-fib Pt has history of A-fib which is rate and rhythm controlled with Amiodarone and metoprolol. EKG shows sinus rhythm . CHADsVAS score- 7 HAS-BLED score 3 Eliquis held for debridement of sacral ulcer, thoacentesis. -continue current medical management: amiodarone and metoprolol -resume Eliquis per surgery recs #Primary Hypertension -Pt's home amlodipine is not resumed. Pt BP is well controlled #Insulin dependent type 2 diabetes -A1c 6.4 on 04/22/24 -Pt is on insulin sliding scale #Sacral ulcer -Pt has deep sacral ulcer -Excisional debridement of sacral decubitus ulcer done on 05/22 #History of seizure disorder -Pt is currently not on antiepileptic meds #Hx of CVA -Pt has history of multiple CVA with residual deficit and non verbal -Pt is s/p tracheostomy and PEG tube placement -Pt is on statin Diet: Tube feeds Lines: PIVs GI Prophylaxis: Pantoprazole IV Thrombo Prophylaxis: SCDs Code status: DNR Assessment and plan discussed with my attending physician Dr. Guevara. Alonso Ball MD PGY-1 Attending Provider Attestation/Addendum I have personally seen and examined the patient separately on the above date of service and discussed the plan of care with the resident. I reviewed the resident Dr. Dr. Alonso Ball consultation progress note and agree with the resident findings and plan in the note above and have also edited the documentation to reflect my findings and plan. Alfa Guevara M.D. Interventional Cardiology
--- NOTE | 2024-05-24 10:49 | PD.RESPRO ---
Documentation for date of: 05/24/24 Subjective Subjective Interval history: Patient was seen and examined at bedside this AM. No acute events overnight Patient tolerating feeds via G-tube, adequate urine output and mentation is at baseline. Patient responsive today, tracking with her eyes and responsive to her name. From telemetry review patient and sinus rhythm overnight with heart rate between 80s?90s. K 4.6, Mg 2.3. Will Keep K>4 and Mg >2 at all times to avoid arrhythmias Patient had fluid balance of - 380 cc in past 24 hours. Resume Lasix 40 Mg IV daily with albumin WBC downtrending to 21.4 from 21.6. Day 3 cefepime 2 g IV twice daily Blood culture no bacterial growth x 48 hours Urine culture completed on 05/22/2024 grew yeast. ID to follow. Started on fluconazole 200 Mg GT daily Hemoglobin 7.2, HCT 22.1. Anemia workup ordered including iron panel, B12, folate, LDH, reticulocyte count and blood smear. Eliquis continues to be on hold due to anemia Cytology report from 05/19/2024 findings include: Suspicious for malignancy. Malignant cells exist as individual cells with high N; C ratios [in the background of the PI-RADS signet-ring cells]. Differential diagnosis include primary tumor of lung, breast. Colon Unlikely. May also represent a combination of metastases including urogenital tract primary, reactive mesothelial proliferation or mesothelioma. Exam Vital Signs Temp Pulse Resp BP Pulse Ox O2 Del Method O2 Flow Rate 98.8 F 87 17 136/65 H 99 Mechanical Ventilation 10 05/24/24 08:00 05/24/24 09:11 05/24/24 08:00 05/24/24 09:11 05/24/24 08:00 05/24/24 08:00 05/24/24 08:00 FiO2 35 05/24/24 08:00 Narrative Exam Constitutional Patient on mechanical ventilation HEENT Both eyes open and moving spontaneously, tracheostomy tube insitu, exit site clean Respiratory Chest normal on inspection and mechanically ventilated breath sounds Cardiovascular S1 and S2 audible, RRR. No murmurs carotid bruit. No gross JVD. Abdominal Soft and non tender to palpation in all quadrants. PEG tube noted. Exit site clean BS + Genitourinary No bladder tenderness, no flank pain. Normal to palpation Musculoskeletal Increased tone in lower extremities. No lower extremity swelling Objective Labs 05/24/24 05:02 05/24/24 05:02 Labs: Laboratory Results - last 24 hr 05/24/24 05:02 WBC 21.4 H RBC 2.48 L Hgb 7.2 L Hct 22.1 L MCV 89 MCH 29.0 MCHC 32.6 RDW Std Deviation 48.2 H Plt Count 307 Neut % (Auto) 85 H Lymph % (Auto) 7 L [place] % (Auto) 7 Eos % (Auto) 1 Baso % (Auto) 0 Neut # (Auto) 18.1 H Lymph # (Auto) 1.5 [place] # (Auto) 1.5 H Eos # (Auto) 0.2 Baso # (Auto) 0.1 Immature Gran # (Auto) 0.15 H Absolute Nucleated RBC 0.00 Immature Gran % 1 H Nucleated RBC % 0 Sodium 138 Potassium 4.6 D Chloride 103 Carbon Dioxide 29.2 Anion Gap 6 L BUN 38 H Creatinine 0.9 Estim Creat Clear Calc 35.7 L eGFR > 60 BUN/Creatinine Ratio 42 H Glucose 168 H Calculated Osmolality 288 Calcium 8.1 L Corrected Calcium 9.1 Phosphorus 3.4 Magnesium 2.3 Total Bilirubin 0.4 AST 23 ALT 50 H Alkaline Phosphatase 105 Total Protein 5.9 Albumin 2.8 L Globulin 3.1 Albumin/Globulin Ratio 0.9 L Random Vancomycin 11.1 ABG Interpretation ABG results: 05/20/24 05/20/24 07:00 11:00 ABG pH 7.40 7.43 ABG pCO2 45 41 ABG pO2 44 L* 53 L* ABG HCO3 28 H 27 H ABG O2 Saturation 94 100 H ABG Base Excess 3 3 Quality Measures Quality Measures VTE prophylaxis Advance care planning discussed with:: other (POLST) Assessment & Plan Assessment Current Active Medications: Generic Name Dose Route Start Last Admin Trade Name Freq PRN Reason Stop Dose Admin Acetaminophen 650 mg 05/20/24 09:38 05/21/24 16:34 Acetaminophen Viviana 325 Mg/10 Ml Udc GT 06/18/24 14:45 650 mg Q6HR PRN Administration Pain(1-3) Or Fever > 100.3 Hydrocodone Bitart/Acetaminophen 1 tab 05/19/24 14:29 Hydrocodone/Apap 5/325 Tablet GT 05/24/24 14:28 Q4HR PRN PAIN SCALE 4-10(Mod-Sev Albuterol/Ipratropium 3 ml 05/19/24 19:00 05/24/24 06:46 Albuterol/Ipratropium (Duoneb) Rt Viviana 3 Ml Nebu INH 06/18/24 18:59 3 ml Q6HRRT AMARJIT Administration Amiodarone HCl 200 mg 05/20/24 09:00 05/24/24 09:05 Amiodarone Hcl 200 Mg Tablet GT 06/19/24 08:59 200 mg DAILY AMARJIT Administration Atorvastatin Calcium 40 mg 05/19/24 21:00 05/23/24 21:00 Atorvastatin Calcium 20 Mg Tablet GT 06/18/24 20:59 40 mg HS AMARJIT Administration Collagenase 0 gm 05/20/24 09:00 05/24/24 09:04 Collagenase Oint 30 Gm Tube TOP 06/19/24 08:59 Not Given BID AMARJIT Dextrose 50 ml 05/19/24 14:50 Dextrose 50%-Water Inj 50 Ml Syringe IV 06/18/24 14:49 Q15MIN PRN BG <50 OR BG <70 & pt unresponsive Fluconazole 200 mg 05/24/24 10:15 Fluconazole Susp 40 Mg/Ml Ml GT 05/31/24 10:14 QDAY AMARJIT Furosemide 40 mg 05/24/24 09:00 05/24/24 09:11 Furosemide Inj 10 Mg/Ml 4ml Vial IVP 06/23/24 08:59 40 mg QDAY AMARJIT Administration Glucagon 1 mg 05/19/24 14:50 Glucagon Inj 1 Mg Vial IM Q15MIN PRN BG <70, and no IV access Cefepime HCl 2 gm/ Sodium 50 mls @ 100 mls/hr 05/22/24 09:09 05/24/24 09:01 Chloride IV 05/29/24 09:08 100 mls/hr Q12HR AMARJIT Administration Insulin Human Lispro 0 unit 05/19/24 18:00 05/24/24 05:24 Insulin Lispro (Admelog) 1 Unit/0.01 Ml Unit SC 06/18/24 17:59 2 unit Q6HR AMARJIT Administration Protocol Lactulose 10 gm 05/19/24 16:14 Lactulose Syrup 20 Gm/30 Ml Udc GT 06/19/24 08:59 DAILY PRN Constipation Protocol Metoprolol Tartrate 25 mg 05/19/24 21:00 05/24/24 09:11 Metoprolol Tartrate 25 Mg Tablet GT 06/18/24 20:59 25 mg BID AMARJIT Administration Ondansetron HCl 4 mg 05/19/24 14:24 Ondansetron Inj 2 Mg/Ml Inj 2 Ml IV 06/18/24 14:23 Q6H PRN NAUSEA OR VOMITING Protocol Pantoprazole Sodium 40 mg 05/19/24 14:30 05/24/24 09:04 Pantoprazole Inj 40 Mg Vial IVP 06/18/24 14:29 40 mg QDAY AMARJIT Administration Sennosides 1 tab 05/20/24 09:00 05/24/24 09:03 Senna Tablet GT 06/19/24 08:59 1 tab QDAY AMARJIT Administration Protocol Plan Patient is an 83-year-old ong female, 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 Patient will be admitted for acute respiratory failure with hypoxia secondary to large left-sided pleural effusion in the setting of community-acquired pneumonia. Acute on chronic respiratory failure with hypoxia Community-acquired versus hospital-acquired versus aspiration pneumonia Malignant, large Left sided Pleural effusion s/p diagnostic/therapeutic thoracentesis 05/20/2024 SIRS 4/4 - resolving Leukocytosis?improving Lactic acidosis?resolving Medical history is unclear. Patient was recently accepted at subacute unit. She is chronically pegged and trached. Apparently she has been spiking fevers of 101 over the last few days. Met 4/4 SIRS criteria with fever, tachypnea, tachycardia and leukocytosis. Chest x-ray significant for extensive pneumonia and atelectasis left lung. Repeat chest x-ray significant for extensive pneumonia/edema throughout all lung alfaro with large layering left pleural effusion. Chest CT significant for thyromegaly with multiple thyroid nodules, large bilateral pleural effusions, atelectasis and pneumonia left lung base. Mild pneumonia right lung base Lactic acid 2.8 down trended to 0.8 RSV negative MRSA nares negative [05/19] sputum culture grew Staphylococcus aureus. With beta-lactamase activity against ampicillin and penicillin. [05/19] Blood culture negative x 48 hours preliminary [05/22] blood culture negative x 48 hours preliminary PSI/PORT : 163 points. Risk class V. Hospitalization recommended based on risk Patient had diagnostic/therapeutic left thoracentesis on 05/20/2024. Drained 1300 cc of pleural fluid. Fluid analysis revealed a transudative effusion. Cytology report from 05/19/2024 findings include: Suspicious for malignancy. Malignant cells exist as individual cells with high N; C ratios [in the background of the PI-RADS signet-ring cells]. Differential diagnosis include primary tumor of lung, breast. Colon Unlikely. May also represent a combination of metastases including urogenital tract primary, reactive mesothelial proliferation or mesothelioma Received Zosyn and vancomycin IV for 2 days from [05/19 - 05/21] WBC downtrending to 21.4 from 21.6. Day 3 cefepime 2 g IV twice daily Plan: - Wean from ventilator to blow-by as tolerated ? Pending pleural fluid culture ? Continue DuoNebs Q6 hourly - D3 cefepime 2 g IV every 12 hourly for possible ventilator associated pneumonia on [05/22 - To have discussion with IR/pulmonology if patient may benefit from Pleurx catheter. Yeast urinary infection Urine culture completed on 05/22/2024 grew yeast. ID to follow. Plan: ? Started on fluconazole 200 Mg p.o. daily for 2 weeks. Newly diagnosed chronic diastolic congestive heart failure with preserved ejection fraction [EF 55 to 60%] Patient has scattered crackles auscultation bilaterally worse on right CXR shows bilateral pleural effusion worse on the left and consolidation of the right around cardiac silhouette. Trans-thoracic echocardiogram completed on 05/21/2024 : LV appears normal with EF 55-60%. Diastolic Dysfunction II is present. RV has mildly elevated RVSP of 45 mmHg MV has mod-severe MR. mild MAC. AOV looks sclerotic Patient had fluid balance of -380 cc in past 24 hours. Lasix on hold due to concerns of sepsis Plan: ? Strict input output charting ? 2G sodium restricted diet ? 1500 cc/day fluid restriction - Resumed Lasix 40 Mg IV daily with albumin 25g IV daily - Cardiology, Dr. Guevara consulted for newly diagnosed diastolic heart failure. Appreciate recommendations Chronic normocytic anemia for investigation On admission Hb 9.2. From chart review manage Hb between 8?9 Plan: ? Iron panel ordered ? B12, folate, LDH, blood smear and reticulocyte count ordered - Eliquis continues to be on hold due to anemia Sacral ulcer stage II/III Patient has sacral ulcer with minimal slough and some purulent drainage Debridement by general surgeon, Dr. Garrett on 05/23/2024 Plan: - Wound care as per wound care nurse - General Surgery, Dr. Garrett consulted. Appreciate recommendations. Primary HTN A-fib, likely paroxysmal NSTEMI type 1 vs type 2 - resolving HLD HASBLED 4 indicates high risk for major bleed. [id number] indicates 17% stroke/TIA/embolism. Troponin 0.077 ---> 0.238 EKG significant for sinus tachycardia, rate 107. Q waves in septal leads. No acute ST changes. Increasing troponin likely due to stress from diaphoresis and hypoxia. Plan: ? Continue telemetry monitoring ? Continue home medication amiodarone 200 Mg GT daily for rate control ? Continue home medication metoprolol tartrate 25 Mg GT twice daily - Eliquis continues to be on hold due to anemia Insulin-dependent diabetes mellitus type 2 [6.4%] Home medication insulin sliding scale Plan: ? Insulin sliding scale Hx of seizure disorder Not on home ANTIEPILEPTICS. No signs of seizures. ? Seizure precaution Chronic constipation Likely secondary to CVA. Patient on chronic LAXATIVES. ? Continue LACTULOSE 10 mg GT prn ? Continue senna daily Chronic PEG tube PEG tube appears intact without signs of infection. Plan: ? Tube feeds ? Registered dietitian referral Hx of CVA History of large cerebral vessel occlusion. Chronically trached and pegged. Opens eyes spontaneously. Does not follow command. Health maintenance: Disposition: IV antibiotics. Nebulizations. Wean off ventilator. Possible Pleurx catheter insertion tomorrow. Diet: Tube feeds Lines: pIVs GI Prophylaxis: Pantoprazole IV Thrombo Prophylaxis: SCDs Code status: DNR Plan of care discussed with Attending Dr. Figueroa and PGY2 Dr. Binta Greene MD PGY 1 Attending Provider Attestation/Addendum I reviewed labs, imaging, EKG, home medications and prior available records. Face to face evaluation was performed by me. I have personally examined the patient and discussed assessment and plan with the IM team. I reviewed the resident note and agree with the plan with exceptions as below. Acute on chronic hypoxic respiratory failure Ventilator associated pneumonia Leukocytosis Atrial fibrillation with RVR Chronic sacral wounds Anasarca Pleural effusion Status post wound debridement by general surgery on 05/23. Continue wound care Sputum culture showed MSSA. Continue cefepime Trend WBC: Downtrending Ordered urine culture: Showed yeast. Started Diflucan. Follow-up identification and sensitivity Continue p.o. amiodarone. Status post pleurocentesis. Examination of the fluid showed transudative pattern She received IV Lasix. That was held prior to surgical debridement Resume tube feeds
[2024-05-24] MEDS: FLUCONAZOLE SUSP 40 MG/ML ML 200 MG GT (11:18)
--- NOTE | 2024-05-24 16:14 | PC.SS ---
[employer] FIRST OFFICER informed by Sub-Acute staff that if patient is discharged to Sub-Acute on 05-25-24 after 11:59 pm, patient will be a new re-admit to sub-acute. Per sub-acute staff, patient will still be in possession of a bed after this date.
--- NOTE | 2024-05-24 16:16 | PC.SS ---
Rounding Note: Urine cultures are pending. Possible d/c tomorrow to sub-acute unit.
[2024-05-24] MEDS: ATORVASTATIN CALCIUM 20 MG TABLET 40 MG GT (21:26)
[2024-05-25] VITALS (20 sets, daily range): BP systolic 119–160; BP diastolic 53–129; PULSE 60–131; RESP 21–31; TEMP 36.5–37.1; O2SAT 93–100; BMI 20.5
[2024-05-25] MEDS: ALBUTEROL/IPRATROPIUM (Duoneb) RT SOL 3 ML NEBU INH ×4 (01:10→18:30)
--- NOTE | 2024-05-25 05:17 | XR_ITS ---
Examination: AP chest single view Technique one AP portable semiupright chest single view Exam date and time: May 25 2024 0526 hrs. Indications: Tachypnea today Findings: Comparison May 22, 2024 Significant CHF Mild enlargement cardiac contour Prominent vascular congestion with extensive edema and/or pneumonia in the mid and lower lung zones with significant pleural fluid Severe osteopenia Tracheostomy tube tip 7.2 cm above segundo Impression: Prominent CHF Consider superimposed bilateral pneumonia in the mid and lower lung zones Significant bilateral pleural effusions
--- NOTE | 2024-05-25 05:20 | PC.RT ---
Vent increased pressure support to 10 due to increased WOB and RR 45+. MD Montez notified, ok with increase in PS. CXR pending
[2024-05-25] MEDS: INSULIN LISPRO (AdmeLOG) 1 UNIT/0.01 ML UNIT SC ×3 (05:57→17:22)
[2024-05-25 06:16] LABS: Basophils % (Auto) 0 % (0-2.5); Eosinophils # (Auto) 0.2 Thou/mm3 (0.0-0.5); Eosinophils % (Auto) 1 % (0-10); Immature Granulocytes % (Auto) 1 % (0-0); Immature Granulocytes Auto 0.15 Thou/mm3 (0.00-0.00); Immature Reticulocyte Fraction 23.5 % (3.0-15.9); Lymphocytes # (Auto) 1.8 Thou/mm3 (1.0-4.8); Lymphocytes % (Auto) 10 % (10-50); Mean Corpuscular HGB Conc 32.7 g/dl (31.0-37.0); Mean Corpuscular Hemoglobin 28.7 pg (25.0-35.0); Mean Corpuscular Volume 88 fL (80-100); Monocytes # (Auto) 1.2 Thou/mm3 (0.0-0.8); Monocytes % (Auto) 7 % (0-12); Neutrophils # (Auto) 14.4 Thou/mm3 (1.8-7.7); Neutrophils % (Auto) 81 % (37-80); Nucleated Red Blood Cell % 0 /100 WBC (0); Platelet Count 306 Thou/mm3 (140-440); RDW Standard Deviation 47.4 fL (36.4-46.3); Red Blood Count 2.51 Miln/mm3 (4.00-5.20); Reticulocyte % (Auto) 1.3 % (0.5-1.5); Reticulocyte Absolute Auto 33.4 Biln/L (25.0-75.0); Reticulocyte Hgb Content 30.8 pg (28.0-35.0); White Blood Count 17.8 Thou/mm3 (3.6-11.0)
[2024-05-25 06:20] LABS: Alanine Aminotransferase 39 U/L (10-49); Albumin, Serum 3.1 gm/dL (3.4-4.8); Alkaline Phosphatase 93 U/L (46-116); Anion Gap 10 (7-16); Aspartate Amino Transferase 18 U/L (0-34); BUN/Creatinine Ratio 42 Ratio (12-20); Bilirubin,Total 0.5 mg/dL (0.3-1.2); Blood Urea Nitrogen 38 mg/dL (9-23); C-Reactive Protein 6.3 mg/dL (0.0-0.9); Calcium 8.3 mg/dL (8.3-10.6); Carbon Dioxide 27.3 mMol/L (20.0-31.0); Chloride 100 mMol/L (98-107); Creatinine (Component) 0.9 mg/dL (0.6-1.3); Globulin 3.2 gm/dL (2.3-3.5); Glucose 198 mg/dL (74-106); LDH (Lactate Dehydrogenase) 200 U/L (120-246); Osmolality,Calculated 288 (275-295); Potassium 4.5 mMol/L (3.4-5.1); Sodium 137 mMol/L (136-145); Total Protein 6.3 gm/dL (5.7-8.2); eGFR > 60 See Note
[2024-05-25 06:22] LABS: Hemoglobin 7.2 g/dL (12.0-16.0)
[2024-05-25 06:26] LABS: Folate 16.84 ng/mL (>5.38); Vitamin B12 758 pg/mL (211-911)
[2024-05-25 06:33] LABS: Sed Rate (ESR) 60 mm/hr (0-30)
[2024-05-25 06:41] LABS: Ferritin 634 ng/mL (7.3-270.7); Iron 26 mcg/dL (50-170); Percent Iron Saturation 16 % (20-55); Total Iron Binding Capacity 156 mcg/dL (250-425); Unsaturated Iron Binding 130 (225-295)
[2024-05-25] MEDS: FLUCONAZOLE SUSP 40 MG/ML ML 200 MG GT (08:31)
[2024-05-25] MEDS: CEFEPIME INJ 2 GM in SODIUM CHLORIDE 0.9% (Popper) 50 ML IV ×2 (08:31→20:37)
[2024-05-25] MEDS: PANTOPRAZOLE INJ 40 MG VIAL IVP (08:32)
[2024-05-25] MEDS: FUROSEMIDE INJ 10 MG/ML 4ML VIAL 40 MG IVP ×2 (08:32→20:38)
[2024-05-25] MEDS: SENNA TABLET 1 TAB GT (08:33)
[2024-05-25] MEDS: METOPROLOL TARTRATE 25 MG TABLET GT ×2 (08:33→20:38)
[2024-05-25] MEDS: AMIODARONE HCL 200 MG TABLET GT (08:33)
[2024-05-25 09:18] LABS: INR 1.1 (0.9-1.3); Partial Thromboplastin Time 31.3 Seconds (22.0-36.0); Prothrombin Time 12.3 Seconds (9.0-12.2)
--- NOTE | 2024-05-25 09:20 | ESPR_ITS ---
Documentation for date of: 05/25/24 Subjective Subjective Interval history: Overnight patient desatted to 70s and PEEP pressure was increased from 7 to 10 and has remained on mechanical ventilation. Patient is seen and examined at bedside this morning, patient is able to track with her eyes and opens her eyes but unable to communicate and does not follow commands which appears to be her baseline. Vitals are stable with blood pressure 136/61. Labs findings include WBC 17.8 which is improving from 21.4 yesterday. Hemoglobin is 7.2 and hematocrit 22, ESR 60, BUN 38 creatinine 0.9 GFR> 60, glucose 198. Iron panel today showed iron 26, TIBC 156, iron saturation 16%, unsaturated iron 130, ferritin 634 findings are aligned with inflammatory anemia. C-reactive protein 6.3. New chest x-rays show bilateral pleural effusion patient is scheduled to get a Pleurx cath. Her nurse at bedside patient's son does not want any invasive procedures done. Patient is net -1400, potassium 4.5, magnesium not collected for today's lab but yesterday was 2.3. Keep potassium above 4 and magnesium above 2 at all times. Patient's furosemide is resumed today. Exam Vital Signs Temp Pulse Resp BP Pulse Ox O2 Del Method O2 Flow Rate 97.8 F 76 29 H 136/61 H 99 Mechanical Ventilation 10 05/25/24 08:00 05/25/24 08:33 05/25/24 08:00 05/25/24 08:33 05/25/24 08:00 05/25/24 08:00 05/25/24 08:00 FiO2 35 05/25/24 08:00 Narrative Exam GENERAL: Elderly frail female, appears pale and chronically ill on mechanical ventilation NEURO: unable to asses as pt is chronically non verbal and bedbound HEENT: Atraumatic, Normocephalic. mucous membranes moist. Eyes open, symmetrical, & clear HEART: Normal Heart Sounds LUNGS: Clear to auscultation with no wheezing or crackles. ABDOMEN: soft, non-distended, non-tender, bowel sounds heard, no guarding or rebound tenderness SKIN: No Rash or ecchymoses, deep sacral ulcer EXTREMITIES: No edema, pedal pulses palpated, unable to move her extremities - contracted LE , dependent edema Objective Labs 05/25/24 05:34 05/25/24 05:34 Labs: Laboratory Results - last 24 hr 05/25/24 05:34 WBC 17.8 H RBC 2.51 L Hgb 7.2 L Hct 22.0 L MCV 88 MCH 28.7 MCHC 32.7 RDW Std Deviation 47.4 H Plt Count 306 Neut % (Auto) 81 H Lymph % (Auto) 10 Phillips % (Auto) 7 Eos % (Auto) 1 Baso % (Auto) 0 Neut # (Auto) 14.4 H Lymph # (Auto) 1.8 Phillips # (Auto) 1.2 H Eos # (Auto) 0.2 Baso # (Auto) 0.0 Immature Gran # (Auto) 0.15 H Absolute Nucleated RBC 0.00 Immature Gran % 1 H Nucleated RBC % 0 ESR 60 H Retic Count (auto) 1.3 Absolute Retic 33.4 Immature Retic Fraction 23.5 H Retic Hgb Content CHr 30.8 PT 12.3 H INR 1.1 APTT 31.3 Sodium 137 Potassium 4.5 Chloride 100 Carbon Dioxide 27.3 Anion Gap 10 BUN 38 H Creatinine 0.9 Estim Creat Clear Calc 25.0 L eGFR > 60 BUN/Creatinine Ratio 42 H Glucose 198 H Calculated Osmolality 288 Calcium 8.3 Corrected Calcium 9.0 Iron 26 L TIBC 156 L Iron Saturation 16 L Unsat Iron Binding 130 L Ferritin 634 H Total Bilirubin 0.5 AST 18 ALT 39 Alkaline Phosphatase 93 Lactate Dehydrogenase 200 C-Reactive Prot, Quant 6.3 H Total Protein 6.3 Albumin 3.1 L Globulin 3.2 Albumin/Globulin Ratio 1.0 L Vitamin B12 758 Folate 16.84 ABG Interpretation ABG results: 05/20/24 05/20/24 07:00 11:00 ABG pH 7.40 7.43 ABG pCO2 45 41 ABG pO2 44 L* 53 L* ABG HCO3 28 H 27 H ABG O2 Saturation 94 100 H ABG Base Excess 3 3 Quality Measures Quality Measures VTE prophylaxis Advance care planning discussed with:: child Assessment & Plan Assessment Current Active Medications: Generic Name Dose Route Start Last Admin Trade Name Freq PRN Reason Stop Dose Admin Acetaminophen 650 mg 05/20/24 09:38 05/21/24 16:34 Acetaminophen Viviana 325 Mg/10 Ml Udc GT 06/18/24 14:45 650 mg Q6HR PRN Administration Pain(1-3) Or Fever > 100.3 Albuterol/Ipratropium 3 ml 05/19/24 19:00 05/25/24 06:35 Albuterol/Ipratropium (Duoneb) Rt Viviana 3 Ml Nebu INH 06/18/24 18:59 3 ml Q6HRRT AMARJIT Administration Amiodarone HCl 200 mg 05/20/24 09:00 05/25/24 08:33 Amiodarone Hcl 200 Mg Tablet GT 06/19/24 08:59 200 mg DAILY AMARJIT Administration Atorvastatin Calcium 40 mg 05/19/24 21:00 05/24/24 21:26 Atorvastatin Calcium 20 Mg Tablet GT 06/18/24 20:59 40 mg HS AMARJIT Administration Collagenase 0 gm 05/20/24 09:00 05/25/24 08:34 Collagenase Oint 30 Gm Tube TOP 06/19/24 08:59 Not Given BID AMARJIT Dextrose 50 ml 05/19/24 14:50 Dextrose 50%-Water Inj 50 Ml Syringe IV 06/18/24 14:49 Q15MIN PRN BG <50 OR BG <70 & pt unresponsive Fluconazole 200 mg 05/24/24 10:15 05/25/24 08:31 Fluconazole Susp 40 Mg/Ml Ml GT 05/31/24 10:14 200 mg QDAY AMARJIT Administration Furosemide 40 mg 05/25/24 09:00 05/25/24 08:32 Furosemide Inj 10 Mg/Ml 4ml Vial IVP 06/24/24 08:59 40 mg BID AMARJIT Administration Glucagon 1 mg 05/19/24 14:50 Glucagon Inj 1 Mg Vial IM Q15MIN PRN BG <70, and no IV access Cefepime HCl 2 gm/ Sodium 50 mls @ 100 mls/hr 05/22/24 09:09 05/25/24 08:31 Chloride IV 05/29/24 09:08 100 mls/hr Q12HR AMARJIT Administration Insulin Human Lispro 0 unit 05/19/24 18:00 05/25/24 05:57 Insulin Lispro (Admelog) 1 Unit/0.01 Ml Unit SC 06/18/24 17:59 2 unit Q6HR AMARJIT Administration Protocol Lactulose 10 gm 05/19/24 16:14 Lactulose Syrup 20 Gm/30 Ml Udc GT 06/19/24 08:59 DAILY PRN Constipation Protocol Metoprolol Tartrate 25 mg 05/19/24 21:00 05/25/24 08:33 Metoprolol Tartrate 25 Mg Tablet GT 06/18/24 20:59 25 mg BID AMARJIT Administration Ondansetron HCl 4 mg 05/19/24 14:24 Ondansetron Inj 2 Mg/Ml Inj 2 Ml IV 06/18/24 14:23 Q6H PRN NAUSEA OR VOMITING Protocol Pantoprazole Sodium 40 mg 05/19/24 14:30 05/25/24 08:32 Pantoprazole Inj 40 Mg Vial IVP 06/18/24 14:29 40 mg QDAY AMARJIT Administration Sennosides 1 tab 05/20/24 09:00 05/25/24 08:33 Senna Tablet GT 06/19/24 08:59 1 tab QDAY AMARJIT Administration Protocol Plan Ms. Guaman is an 83 year female with past medical history significant for Hypertension, non-insulin dependent type 2 diabetes, seizure disorder, Hx of a- fib and hx of multiple CVA's. Pt is chronically non verbal since the CVA's and has been tracheostomy with PEG tube placement unsure of when as Pt first arrived at [facility] subacute facility in March 2024. Pt was brought back to the ED on 05/19/24 for recurrent fevers and reaccumulation of large left pleural effusions. #Acute hypoxic respiratory failure in the setting of #Sepsis 2/2 #bilateraly pneumonia #Pleural effusions s/p thoracenthesis # Pleural effusions -malignant cells -Pt presented from subacute due to recurrent fevers -RSV, influenza A & B and COVID negative -SIRS 4/4 met: leukocytosis, tachycardia, tachyapnea and fever -CRX- [id number] heart failure, Moderate bilateral pleural effusions, Prominent vascular congestion with perihilar basilar edema. Extensive pneumonia and/or edema throughout the lung alfaro with large layered left pleural effusion -left thoracenthesis done on 05/20 drained 1300 cc of -Will monitor consistent with exudative effusions -pleural fluid cytology is suspicious for malignant cells -Pt is on antibiotics and Duonebs -Chest x-rays from today shows bilateral pleural effusions patient is scheduled to get a Pleurx cath placed #Acute exacerbation of CHF- improved #New onset of diastolic CHF- HFpEF with EF 55-60% -although pt does appear to be fluid overloaded on physical examination with 1+ dependant edema in the upper thigh and unable to provide history of symptoms -CRX- evident of vascular congestion with pleural effusions -BNP 2371 echo done on 05/21/24 LV appears normal with EF 55-60%. Diastolic Dysfunction II is present. RV has mildly elevated RVSP of 45 mmHg MV has mod-severe MR. mild MAC AOV looks sclerotic. TV has mild to moderate TR. Large pleural Effusion present. -Pt is net negative 1400cc -Pt is restarted on Lasix 40 daily -Strict input output, daily weights and low-sodium tube feeds -Chest x-rays from today shows bilateral pleural effusions patient is scheduled to get a Pleurx cath placed #Hx of A-fib -Pt has history of A-fib which is rate and rhythm controlled with Amiodarone and metoprolol -EKG shows sinus rhythm -CHADsVAS score- 7 -HAS-BLED score 3 -Pt is rate and rhythm controlled with amiodarone and metoprolol and for anticoagulation pt is on eliquis #Acute Anemia -Hemoglobin is 7.2, hematocrit 22, MCV 88 -Iron panel today showed iron 26, TIBC 156, iron saturation 16%, unsaturated iron 130, ferritin 634 findings are aligned with inflammatory anemia likely in the setting of sepsis -Transfuse if hemoglobin <7 -Monitor daily CBC #Primary Hypertension -Pt's home amlodipine is not resumed. Pt BP is well controlled #Insulin dependent type 2 diabetes -A1c 6.4 on 04/22/24 -Pt is on insulin sliding scale #Sacral ulcer -Pt has deep sacral ulcer -Status post excisional debridement of sacral decubitus ulcer done on 05/22 #UTI -Urine culture from 05/22/2024 grew yeast -Patient is started on fluconazole and ID is following #History of seizure disorder -Pt is currently not on antiepileptic meds #Hx of CVA -Pt has history of multiple CVA with residual deficit and non verbal -Pt is s/p tracheostomy and PEG tube placement -Pt is on statin Assessment and plan discussed with my attending physician Dr. Ismael Hamilton ([id number])- Internal medicine resident Attending Provider Attestation/Addendum I have personally seen and examined the patient separately on the above date of service and discussed the plan of care with the resident. I reviewed the resident Dr. Leonela Hamilton consultation progress note and agree with the resident findings and plan in the note above and have also edited the documentation to reflect my findings and plan. Alfa Guevara M.D. Interventional Cardiology
--- NOTE | 2024-05-25 10:30 | PD.RESPRO ---
Documentation for date of: 05/25/24 Subjective Subjective Interval history: Patient was seen and examined at bedside this AM. Overnight patient became tachypneic and PEEP had to be increased to 10 from 7 on mechanical ventilator Patient tolerating feeds via G-tube, adequate urine output and mentation is at baseline. Patient responsive today, tracking with her eyes and responsive to her name. From telemetry review patient and sinus rhythm overnight with heart rate between 70s?80 80s. K 4.5, Mg 2.3. Will Keep K>4 and Mg >2 at all times to avoid arrhythmias Patient had fluid balance of - 1400cc in past 24 hours. Increased IV diuresis with Lasix to 40 Mg IV twice daily WBC downtrending to 17.8 from 21.4. Day 4 cefepime 2 g IV twice daily Urine culture completed on 05/22/2024 grew yeast. ID to follow. On fluconazole 200 Mg GT daily Iron 26, TIBC 156, iron saturation 16%, ferritin 634. CRP 6.3, B12 758, folate 16.84. Mixed picture of iron deficiency and anemia of chronic disease. Repeat chest x-ray this a.m. significant for large right-sided pleural effusion. Order placed for right Pleurx catheter by IR Discussed with certified medical assistant of subacute facility, Dr. Hernandez. He is in agreement with the plan for placement of Pleurx catheter and said whenever patient is fit for discharge it can be managed in the subacute facility. Exam Vital Signs Temp Pulse Resp BP Pulse Ox O2 Del Method O2 Flow Rate 97.8 F 76 29 H 136/61 H 99 Mechanical Ventilation 10 05/25/24 08:00 05/25/24 08:33 05/25/24 08:00 05/25/24 08:33 05/25/24 08:00 05/25/24 08:00 05/25/24 08:00 FiO2 35 05/25/24 08:00 Narrative Exam Constitutional Patient on mechanical ventilation HEENT Both eyes open and moving spontaneously, tracheostomy tube insitu, exit site clean Respiratory Chest normal on inspection and mechanically ventilated breath sounds, bilateral crackles on mid to lower zones of lungs Cardiovascular S1 and S2 audible, RRR. No murmurs carotid bruit. No gross JVD. Abdominal Soft and non tender to palpation in all quadrants. PEG tube noted. Exit site clean BS + Genitourinary No bladder tenderness, no flank pain. Normal to palpation Musculoskeletal Increased tone in lower extremities. No lower extremity swelling Objective Labs 05/25/24 05:34 05/25/24 05:34 Labs: Laboratory Results - last 24 hr 05/25/24 05:34 WBC 17.8 H RBC 2.51 L Hgb 7.2 L Hct 22.0 L MCV 88 MCH 28.7 MCHC 32.7 RDW Std Deviation 47.4 H Plt Count 306 Neut % (Auto) 81 H Lymph % (Auto) 10 Falls % (Auto) 7 Eos % (Auto) 1 Baso % (Auto) 0 Neut # (Auto) 14.4 H Lymph # (Auto) 1.8 Falls # (Auto) 1.2 H Eos # (Auto) 0.2 Baso # (Auto) 0.0 Immature Gran # (Auto) 0.15 H Absolute Nucleated RBC 0.00 Immature Gran % 1 H Nucleated RBC % 0 ESR 60 H Retic Count (auto) 1.3 Absolute Retic 33.4 Immature Retic Fraction 23.5 H Retic Hgb Content CHr 30.8 PT 12.3 H INR 1.1 APTT 31.3 Sodium 137 Potassium 4.5 Chloride 100 Carbon Dioxide 27.3 Anion Gap 10 BUN 38 H Creatinine 0.9 Estim Creat Clear Calc 25.0 L eGFR > 60 BUN/Creatinine Ratio 42 H Glucose 198 H Calculated Osmolality 288 Calcium 8.3 Corrected Calcium 9.0 Iron 26 L TIBC 156 L Iron Saturation 16 L Unsat Iron Binding 130 L Ferritin 634 H Total Bilirubin 0.5 AST 18 ALT 39 Alkaline Phosphatase 93 Lactate Dehydrogenase 200 C-Reactive Prot, Quant 6.3 H Total Protein 6.3 Albumin 3.1 L Globulin 3.2 Albumin/Globulin Ratio 1.0 L Vitamin B12 758 Folate 16.84 ABG Interpretation ABG results: 05/20/24 05/20/24 07:00 11:00 ABG pH 7.40 7.43 ABG pCO2 45 41 ABG pO2 44 L* 53 L* ABG HCO3 28 H 27 H ABG O2 Saturation 94 100 H ABG Base Excess 3 3 Quality Measures Quality Measures VTE prophylaxis Advance care planning discussed with:: other (POLST) Assessment & Plan Assessment Current Active Medications: Generic Name Dose Route Start Last Admin Trade Name Freq PRN Reason Stop Dose Admin Acetaminophen 650 mg 05/20/24 09:38 05/21/24 16:34 Acetaminophen Viviana 325 Mg/10 Ml Udc GT 06/18/24 14:45 650 mg Q6HR PRN Administration Pain(1-3) Or Fever > 100.3 Albuterol/Ipratropium 3 ml 05/19/24 19:00 05/25/24 06:35 Albuterol/Ipratropium (Duoneb) Rt Viviana 3 Ml Nebu INH 06/18/24 18:59 3 ml Q6HRRT AMARJIT Administration Amiodarone HCl 200 mg 05/20/24 09:00 05/25/24 08:33 Amiodarone Hcl 200 Mg Tablet GT 06/19/24 08:59 200 mg DAILY AMARJIT Administration Atorvastatin Calcium 40 mg 05/19/24 21:00 05/24/24 21:26 Atorvastatin Calcium 20 Mg Tablet GT 06/18/24 20:59 40 mg HS AMARJIT Administration Collagenase 0 gm 05/20/24 09:00 05/25/24 08:34 Collagenase Oint 30 Gm Tube TOP 06/19/24 08:59 Not Given BID AMARJIT Dextrose 50 ml 05/19/24 14:50 Dextrose 50%-Water Inj 50 Ml Syringe IV 06/18/24 14:49 Q15MIN PRN BG <50 OR BG <70 & pt unresponsive Fluconazole 200 mg 05/24/24 10:15 05/25/24 08:31 Fluconazole Susp 40 Mg/Ml Ml GT 05/31/24 10:14 200 mg QDAY AMARJIT Administration Furosemide 40 mg 05/25/24 09:00 05/25/24 08:32 Furosemide Inj 10 Mg/Ml 4ml Vial IVP 06/24/24 08:59 40 mg BID AMARJIT Administration Glucagon 1 mg 05/19/24 14:50 Glucagon Inj 1 Mg Vial IM Q15MIN PRN BG <70, and no IV access Cefepime HCl 2 gm/ Sodium 50 mls @ 100 mls/hr 05/22/24 09:09 05/25/24 08:31 Chloride IV 05/29/24 09:08 100 mls/hr Q12HR AMARJIT Administration Insulin Human Lispro 0 unit 05/19/24 18:00 05/25/24 05:57 Insulin Lispro (Admelog) 1 Unit/0.01 Ml Unit SC 06/18/24 17:59 2 unit Q6HR AMARJIT Administration Protocol Lactulose 10 gm 05/19/24 16:14 Lactulose Syrup 20 Gm/30 Ml Udc GT 06/19/24 08:59 DAILY PRN Constipation Protocol Metoprolol Tartrate 25 mg 05/19/24 21:00 05/25/24 08:33 Metoprolol Tartrate 25 Mg Tablet GT 06/18/24 20:59 25 mg BID AMARJIT Administration Ondansetron HCl 4 mg 05/19/24 14:24 Ondansetron Inj 2 Mg/Ml Inj 2 Ml IV 06/18/24 14:23 Q6H PRN NAUSEA OR VOMITING Protocol Pantoprazole Sodium 40 mg 05/19/24 14:30 05/25/24 08:32 Pantoprazole Inj 40 Mg Vial IVP 06/18/24 14:29 40 mg QDAY AMARJIT Administration Sennosides 1 tab 05/20/24 09:00 05/25/24 08:33 Senna Tablet GT 06/19/24 08:59 1 tab QDAY AMARJIT Administration Protocol Plan Patient is an 83-year-old [facility] female, 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 Patient will be admitted for acute respiratory failure with hypoxia secondary to large left-sided pleural effusion in the setting of community-acquired pneumonia. Acute on chronic respiratory failure with hypoxia Community-acquired versus hospital-acquired versus aspiration pneumonia Malignant, large Left sided Pleural effusion s/p diagnostic/therapeutic thoracentesis 05/20/2024 SIRS 4/4 - resolving Leukocytosis?improving Lactic acidosis?resolving Medical history is unclear. Patient was recently accepted at subacute unit. She is chronically pegged and trached. Apparently she has been spiking fevers of 101 over the last few days. Met 4/4 SIRS criteria with fever, tachypnea, tachycardia and leukocytosis. Chest x-ray significant for extensive pneumonia and atelectasis left lung. Repeat chest x-ray significant for extensive pneumonia/edema throughout all lung alfaro with large layering left pleural effusion. Chest CT significant for thyromegaly with multiple thyroid nodules, large bilateral pleural effusions, atelectasis and pneumonia left lung base. Mild pneumonia right lung base Lactic acid 2.8 down trended to 0.8 RSV negative MRSA nares negative [05/19] sputum culture grew Staphylococcus aureus. With beta-lactamase activity against ampicillin and penicillin. [05/19] Blood culture negative x 48 hours preliminary [05/22] blood culture negative x 48 hours preliminary PSI/PORT : 163 points. Risk class V. Hospitalization recommended based on risk Patient had diagnostic/therapeutic left thoracentesis on 05/20/2024. Drained 1300 cc of pleural fluid. Fluid analysis revealed a transudative effusion. Cytology report from 05/19/2024 findings include: Suspicious for malignancy. Malignant cells exist as individual cells with high N; C ratios [in the background of the PI-RADS signet-ring cells]. Differential diagnosis include primary tumor of lung, breast. Colon Unlikely. May also represent a combination of metastases including urogenital tract primary, reactive mesothelial proliferation or mesothelioma Received Zosyn and vancomycin IV for 2 days from [05/19 - 05/21] WBC downtrending to 17.8 from 21.4. Day 4 cefepime 2 g IV twice daily Plan: - Wean from ventilator to blow-by as tolerated ? Pending pleural fluid culture ? Continue DuoNebs Q6 hourly - D4 cefepime 2 g IV every 12 hourly for possible ventilator associated pneumonia on [05/22 - Repeat chest x-ray this a.m. significant for large right-sided pleural effusion. Order placed for right Pleurx catheter by IR. - Discussed with certified medical assistant of subacute facility, Dr. Hernandez. He is in agreement with the plan for placement of Pleurx catheter and said whenever patient is fit for discharge it can be managed in the subacute facility. Yeast urinary infection Urine culture completed on 05/22/2024 grew yeast. ID to follow. Plan: ? Started on fluconazole 200 Mg p.o. daily for 2 weeks. Newly diagnosed chronic diastolic congestive heart failure with preserved ejection fraction [EF 55 to 60%] Patient has scattered crackles auscultation bilaterally worse on right CXR shows bilateral pleural effusion worse on the left and consolidation of the right around cardiac silhouette. Trans-thoracic echocardiogram completed on 05/21/2024 : LV appears normal with EF 55-60%. Diastolic Dysfunction II is present. RV has mildly elevated RVSP of 45 mmHg MV has mod-severe MR. mild MAC. AOV looks sclerotic From telemetry review patient and sinus rhythm overnight with heart rate between 70s?80 80s. K 4.5, Mg 2.3. Will Keep K>4 and Mg >2 at all times to avoid arrhythmias Patient had fluid balance of - 1400cc in past 24 hours. Plan: ? Strict input output charting ? 2G sodium restricted diet ? 1500 cc/day fluid restriction - Increased Lasix to 40 Mg IV twice daily - Cardiology, Dr. Guevara consulted for newly diagnosed diastolic heart failure. Appreciate recommendations Chronic normocytic anemia for investigation On admission Hb 9.2. From chart review manage Hb between 8?9 Currently Hb 7.2 Iron 26, TIBC 156, iron saturation 16%, ferritin 634. CRP 6.3, B12 758, folate 16.84. Mixed picture of iron deficiency and anemia of chronic disease. Sacral ulcer stage II/III Patient has sacral ulcer with minimal slough and some purulent drainage Debridement by general surgeon, Dr. Garrett on 05/23/2024 Plan: - Wound care as per wound care nurse - General Surgery, Dr. Garrett consulted. Appreciate recommendations. Primary HTN A-fib, likely paroxysmal NSTEMI type 1 vs type 2 - resolving HLD HASBLED 4 indicates high risk for major bleed. [id number] indicates 17% stroke/TIA/embolism. Troponin 0.077 ---> 0.238 EKG significant for sinus tachycardia, rate 107. Q waves in septal leads. No acute ST changes. Increasing troponin likely due to stress from diaphoresis and hypoxia. Plan: ? Continue telemetry monitoring ? Continue home medication amiodarone 200 Mg GT daily for rate control ? Continue home medication metoprolol tartrate 25 Mg GT twice daily - Eliquis continues to be on hold due to anemia Insulin-dependent diabetes mellitus type 2 [6.4%] Home medication insulin sliding scale Plan: ? Insulin sliding scale Hx of seizure disorder Not on home ANTIEPILEPTICS. No signs of seizures. ? Seizure precaution Chronic constipation Likely secondary to CVA. Patient on chronic LAXATIVES. ? Continue LACTULOSE 10 mg GT prn ? Continue senna daily Chronic PEG tube PEG tube appears intact without signs of infection. Plan: ? Tube feeds ? Registered dietitian referral Hx of CVA History of large cerebral vessel occlusion. Chronically trached and pegged. Opens eyes spontaneously. Does not follow command. Goals of care Updated patient's son and decision-maker JU over the telephone at . Updated him about the findings of her fluid studies which showed malignant pleural effusion of uncertain source. Gave him the options of aggressive management to identify the source or therapeutic management with a Pleurx catheter for comfort. Son does not wish for aggressive measures at this time but is okay with placement of Pleurx catheter for comfort. Health maintenance: Disposition: IV antibiotics. Nebulizations. Wean off ventilator. PleurX catheter insertion today Diet: Tube feeds Lines: pIVs GI Prophylaxis: Pantoprazole IV Thrombo Prophylaxis: SCDs Code status: DNR Plan of care discussed with Attending Dr. Figueroa and PGY2 Dr. Binta Greene MD PGY 1 Attending Provider Attestation/Addendum I reviewed labs, imaging, EKG, home medications and prior available records. Face to face evaluation was performed by me. I have personally examined the patient and discussed assessment and plan with the IM team. I reviewed the resident note and agree with the plan with exceptions as below. Acute on chronic hypoxic respiratory failure Ventilator associated pneumonia Leukocytosis Atrial fibrillation with RVR Chronic sacral wounds Anasarca Pleural effusion Patient had worsening respiratory distress/oxygen requirements. Ordered chest x-ray that showed moderate CHF and significant effusion. Increased Lasix to 40 mg IV twice daily. S/p surgical debridement on 05/23 of the lower back decubitus ulcer. General surgery recommended to continue wound care daily. Sputum culture showed MSSA. Continue cefepime Trend WBC: Downtrending Continue p.o. amiodarone. Resumed Eliquis after surgical debridement Status post pleurocentesis. Examination of the fluid showed transudative pattern. Cytology showed malignant cells. Likely from pulmonary malignancy versus breast malignancy versus metastasis of unknown primary. Discussed with the son who is the POA: Okay with Pleurx for symptomatic management but no further investigation. Discussed with subacute facility: Able to take care of the Pleurx. Consulted IR for the tube placement. She likely can go to the facility after the Pleurx catheter insertion, in case her breathing continues to improve and WBC continues to downtrend. Resumed tube feeds.
--- NOTE | 2024-05-25 10:34 | PC.NURSE ---
Recieved order for pleur x drain catheter insertion, lorie charge nurse consulted with Dr. Baldwin who will do procedure in [place]. Lorie RN also consulted with sub acute staff to make sure they are able to care for post pleur x drian placement patient. Dr. Christianson medical technologist clinical wants to talk to hospitalist Dr. Greene before proceeding with procedure, after both MD consulted each other, decision was made to proceed with pleur x catheter drain insertion procedure. will obtain consent and get bring patient to IR for procedure
--- NOTE | 2024-05-25 10:36 | XR_ITS ---
Exam: Right thorax catheter placement. INDICATION: Right pleural effusion. DATE: 05/25/2024, 11:32 AM COMPARISON: Chest x-ray earlier today. CTDI: 22.42 DLP: 615. PROCEDURE: Consent was obtained by the primary team. Patient was brought to the CT scanner and placed in the left lateral decubitus position. Preliminary noncontrast enhanced CT demonstrated a moderate right pleural effusion. Posterior lateral lower right thoracic space was targeted for drainage catheter placement. The overlying skin was cleaned and draped in normal sterile surgical fashion. 20 cc of 1% lidocaine was used for local anesthesia. Using CT guidance a Yueh needle catheter was advanced into the right pleural space. Cloudy yellow fluid was obtained. 10 cm subcutaneous tunnel was created along the lateral lower thoracic wall. Pleurx catheter was attached to the tunneling device and pulled through the tunnel exiting at the Yueh needle access site. A 0.035 wire was advanced through the Yueh needle and the Yueh was withdrawn. Tract was serially dilated and a 16 Cymraes peel-away sheath was placed over the wire and the wire was removed. Pleurx catheter was advanced through the peel-away sheath and peel-away sheath was removed. Post catheter placement CT was obtained which demonstrated appropriate positioning of the distal pleural catheter within the lower right pleural space. Catheter was sutured in place covered with a sterile dressing. Approximately 900 cc of pleural fluid was obtained at the time of the procedure. Patient was transferred back to the floor without evidence of complication. IMPRESSION: Successful CT-guided right Pleurx drainage catheter placement as above. Catheter is ready for use.
[2024-05-25 11:36] LABS: Path Review Blood Smear Sent to Pathologist
[2024-05-25] MEDS: LIDOCAINE INJ PF 1% 30 ML VIAL 20 ML INFL (11:40)
--- NOTE | 2024-05-25 12:15 | PC.NURSE ---
1215 patient post pleur x drainage catheter placment in CT department, dressing dry with no bleeding, report given to Enid MONROY, patient transferred back to room 263 accompanied by RT Jojo to manage trach and ventilator.
--- NOTE | 2024-05-25 14:23 | PC.SS ---
Addendum entered by ELIZA Singh 05/25/24 14:25: Update: if patient remains in house and d/c over the weekend, Lori at [facility] informs he will need a new PASRR. Original Note: Rounding note: pending pleurx cath and monitoring.
[2024-05-25] MEDS: ATORVASTATIN CALCIUM 20 MG TABLET 40 MG GT (20:38)
[2024-05-26] VITALS (18 sets, daily range): BP systolic 122–140; BP diastolic 55–73; PULSE 60–77; RESP 23–30; TEMP 36.8–37.1; O2SAT 94–100; BMI 21.7
[2024-05-26] MEDS: INSULIN LISPRO (AdmeLOG) 1 UNIT/0.01 ML UNIT SC ×5 (00:20→23:34)
[2024-05-26] MEDS: ALBUTEROL/IPRATROPIUM (Duoneb) RT SOL 3 ML NEBU INH ×4 (00:55→19:16)
[2024-05-26 05:42] LABS: Basophils % (Auto) 0 % (0-2.5); Eosinophils # (Auto) 0.1 Thou/mm3 (0.0-0.5); Eosinophils % (Auto) 1 % (0-10); Hematocrit 21.8 % (36.0-46.0); Immature Granulocytes % (Auto) 1 % (0-0); Immature Granulocytes Auto 0.14 Thou/mm3 (0.00-0.00); Lymphocytes % (Auto) 5 % (10-50); Mean Corpuscular HGB Conc 32.1 g/dl (31.0-37.0); Mean Corpuscular Hemoglobin 28.5 pg (25.0-35.0); Mean Corpuscular Volume 89 fL (80-100); Monocytes # (Auto) 1.2 Thou/mm3 (0.0-0.8); Monocytes % (Auto) 6 % (0-12); Neutrophils # (Auto) 17.1 Thou/mm3 (1.8-7.7); Neutrophils % (Auto) 87 % (37-80); Nucleated Red Blood Cell % 0 /100 WBC (0); Platelet Count 329 Thou/mm3 (140-440); RDW Standard Deviation 48.2 fL (36.4-46.3); Red Blood Count 2.46 Miln/mm3 (4.00-5.20); White Blood Count 19.6 Thou/mm3 (3.6-11.0)
[2024-05-26 06:11] LABS: Alanine Aminotransferase 27 U/L (10-49); Albumin, Serum 2.9 gm/dL (3.4-4.8); Alkaline Phosphatase 81 U/L (46-116); Anion Gap 8 (7-16); Aspartate Amino Transferase 15 U/L (0-34); BUN/Creatinine Ratio 43 Ratio (12-20); Bilirubin,Total 0.3 mg/dL (0.3-1.2); Blood Urea Nitrogen 39 mg/dL (9-23); Calcium (Corrected) 8.9 mg/dL (8.5-10.1); Carbon Dioxide 29.2 mMol/L (20.0-31.0); Chloride 101 mMol/L (98-107); Creatinine (Component) 0.9 mg/dL (0.6-1.3); Estimated Creatinine Clearance 35.7 mL/min (>60); Globulin 2.9 gm/dL (2.3-3.5); Glucose 222 mg/dL (74-106); Magnesium 2.1 mg/dL (1.6-2.6); Osmolality,Calculated 292 (275-295); Phosphorous 3.4 mg/dL (2.4-5.1); Potassium 4.1 mMol/L (3.4-5.1); Sodium 138 mMol/L (136-145); Total Protein 5.8 gm/dL (5.7-8.2); eGFR > 60 See Note
[2024-05-26] MEDS: FLUCONAZOLE SUSP 40 MG/ML ML 200 MG GT (08:38)
[2024-05-26] MEDS: METOPROLOL TARTRATE 25 MG TABLET GT (08:39)
[2024-05-26] MEDS: SENNA TABLET 1 TAB GT (08:39)
[2024-05-26] MEDS: CEFEPIME INJ 2 GM in SODIUM CHLORIDE 0.9% (Popper) 50 ML IV (08:39)
[2024-05-26] MEDS: FUROSEMIDE INJ 10 MG/ML 4ML VIAL 40 MG IVP ×2 (08:40→20:47)
[2024-05-26] MEDS: AMIODARONE HCL 200 MG TABLET GT (08:44)
[2024-05-26] MEDS: PANTOPRAZOLE INJ 40 MG VIAL IVP (08:44)
[2024-05-26] MEDS: COLLAGENASE OINT 30 GM TUBE TOP ×2 (12:10→20:54)
[2024-05-26 13:02] LABS: Hemoglobin 7.2 g/dL (12.0-16.0)
--- NOTE | 2024-05-26 13:21 | ESPR_ITS ---
<Statement entered by Angelina Moreno MD - 05/27/24 02:23> Patient was seen and examined by me personally. I have directly supervised and reviewed the above documentation by the team resident and agree with its findings with any exceptions or additional findings as below. Plan of care was discussed with the attending, Dr. Arzola. Patient is an 83-year-old female with chronic trach and PEG secondary to CVA from the [facility] subacute admitted due to bilateral pleural effusion and hospital- acquired versus ventilator-associated pneumonia. Patient had a pleural tap this admission that showed cells suggestive of malignancy, possibilities including metastases including urogenital tract primary, reactive mesothelial proliferation or mesothelioma. The patient is a DNR with selective treatments, efforts have been made in the past and discussion with family members/decision- maker regarding prognosis and potential for hospice, decision-maker is still considering. The family decided not to pursue further cancer workup but did want a Pleur-X catheter to be placed for symptomatic relief. Right side catheter was placed on 05/25. Antibiotics were de-escalated from cefepime to Augmentin given sputum cultures x2 which showed sensitive Staph aureus. Anticipate discharge to subacute in the next 1-2 days. Angelina Moreno, PGY-2 Documentation for date of: 05/26/24 Subjective Subjective Interval history: Patient seen and examined at the bedside, continues to be afebrile, on mechanical ventilation FiO2 40%, O2 flow rate 10 L. Does not track objects, does not follow commands. In the a.m. hemoglobin was 7.0, repeat H&H at 1 PM showed hemoglobin of 7.2. Antibiotic regimen was changed to Augmentin 05/26/2024, cefepime was discontinued. Will continue to monitor CBC, will anticipate possible discharge to subacute facility in the next 2 days. Exam Vital Signs Temp Pulse Resp BP Pulse Ox O2 Del Method O2 Flow Rate 98.7 F 75 30 H 122/64 96 Mechanical Ventilation 10 05/26/24 12:05/26/24 12:05/26/24 12:05/26/24 12:05/26/24 12:00 05/26/24 12:00 05/26/24 12:00 FiO2 30 05/26/24 12:00 Narrative Exam Physical Exam General: Awake, non-conversational (s/p strokes and tracheostomy) HEENT: Normocephalic, atraumatic, mucous membranes moist. Chronic tracheostomy. Heart: Regular rate and rhythm, no murmurs. Lungs: Clear to auscultation with no wheezing or crackles. Per percussion sound is normal resonance. Abdomen: Soft, nondistended, nontender, positive bowel sounds. ?No guarding or rebound tenderness PEG tube area normal.. Neurologic: Alert and oriented x0, does not follows commands Extremities: No edema. Skin: No rash or ecchymoses. Objective Labs 05/28/24 05:43 05/28/24 05:43 Labs: Laboratory Results - last 24 hr 05/26/24 05/26/24 04:31 12:45 WBC 19.6 H RBC 2.46 L Hgb 7.0 L 7.2 L Hct 21.8 L* 22.0 L MCV 89 MCH 28.5 MCHC 32.1 RDW Std Deviation 48.2 H Plt Count 329 Neut % (Auto) 87 H Lymph % (Auto) 5 L [place] % (Auto) 6 Eos % (Auto) 1 Baso % (Auto) 0 Neut # (Auto) 17.1 H Lymph # (Auto) 1.0 [place] # (Auto) 1.2 H Eos # (Auto) 0.1 Baso # (Auto) 0.0 Immature Gran # (Auto) 0.14 H Absolute Nucleated RBC 0.00 Immature Gran % 1 H Nucleated RBC % 0 Sodium 138 Potassium 4.1 Chloride 101 Carbon Dioxide 29.2 Anion Gap 8 BUN 39 H Creatinine 0.9 Estim Creat Clear Calc 35.7 L eGFR > 60 BUN/Creatinine Ratio 43 H Glucose 222 H Calculated Osmolality 292 Calcium 8.0 L Corrected Calcium 8.9 Phosphorus 3.4 Magnesium 2.1 Total Bilirubin 0.3 AST 15 ALT 27 Alkaline Phosphatase 81 Total Protein 5.8 Albumin 2.9 L Globulin 2.9 Albumin/Globulin Ratio 1.0 L ABG Interpretation ABG results: 05/20/24 05/20/24 07:00 11:00 ABG pH 7.40 7.43 ABG pCO2 45 41 ABG pO2 44 L* 53 L* ABG HCO3 28 H 27 H ABG O2 Saturation 94 100 H ABG Base Excess 3 3 Quality Measures Quality Measures VTE prophylaxis Advance care planning discussed with:: other Assessment & Plan Assessment Current Active Medications: Generic Name Dose Route Start Last Admin Trade Name Freq PRN Reason Stop Dose Admin Acetaminophen 650 mg 05/20/24 09:38 05/21/24 16:34 Acetaminophen Viviana 325 Mg/10 Ml Udc GT 06/18/24 14:45 650 mg Q6HR PRN Administration Pain(1-3) Or Fever > 100.3 Albuterol/Ipratropium 3 ml 05/19/24 19:00 05/26/24 06:21 Albuterol/Ipratropium (Duoneb) Rt Viviana 3 Ml Nebu INH 06/18/24 18:59 3 ml Q6HRRT AMARJIT Administration Amiodarone HCl 200 mg 05/20/24 09:00 05/26/24 08:44 Amiodarone Hcl 200 Mg Tablet GT 06/19/24 08:59 200 mg DAILY AMARJIT Administration Amoxicillin/Clavulanate Potassium 1 tab 05/26/24 21:00 Amoxicillin/Pot Clav 875 Tablet PO 06/02/24 20:59 BID AMARJIT Atorvastatin Calcium 40 mg 05/19/24 21:00 05/25/24 20:38 Atorvastatin Calcium 20 Mg Tablet GT 06/18/24 20:59 40 mg HS AMARJIT Administration Collagenase 0 gm 05/20/24 09:00 05/26/24 12:10 Collagenase Oint 30 Gm Tube TOP 06/19/24 08:59 1 applicatio BID AMARJIT Administration Dextrose 50 ml 05/19/24 14:50 Dextrose 50%-Water Inj 50 Ml Syringe IV 06/18/24 14:49 Q15MIN PRN BG <50 OR BG <70 & pt unresponsive Fluconazole 200 mg 05/24/24 10:15 05/26/24 08:38 Fluconazole Susp 40 Mg/Ml Ml GT 05/31/24 10:14 200 mg QDAY AMARJIT Administration Furosemide 40 mg 05/25/24 09:00 05/26/24 08:40 Furosemide Inj 10 Mg/Ml 4ml Vial IVP 06/24/24 08:59 40 mg BID AMARJIT Administration Glucagon 1 mg 05/19/24 14:50 Glucagon Inj 1 Mg Vial IM Q15MIN PRN BG <70, and no IV access Insulin Human Lispro 0 unit 05/19/24 18:00 05/26/24 12:12 Insulin Lispro (Admelog) 1 Unit/0.01 Ml Unit SC 06/18/24 17:59 4 unit Q6HR AMARJIT Administration Protocol Lactulose 10 gm 05/19/24 16:14 Lactulose Syrup 20 Gm/30 Ml Udc GT 06/19/24 08:59 DAILY PRN Constipation Protocol Metoprolol Tartrate 25 mg 05/19/24 21:00 05/26/24 08:39 Metoprolol Tartrate 25 Mg Tablet GT 06/18/24 20:59 25 mg BID AMARJIT Administration Ondansetron HCl 4 mg 05/19/24 14:24 Ondansetron Inj 2 Mg/Ml Inj 2 Ml IV 06/18/24 14:23 Q6H PRN NAUSEA OR VOMITING Protocol Pantoprazole Sodium 40 mg 05/19/24 14:30 05/26/24 08:44 Pantoprazole Inj 40 Mg Vial IVP 06/18/24 14:29 40 mg QDAY AMARJIT Administration Sennosides 1 tab 05/20/24 09:00 05/26/24 08:39 Senna Tablet GT 06/19/24 08:59 1 tab QDAY AMARJIT Administration Protocol Plan Patient is an 83-year-old [facility] female, 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 Patient will be admitted for acute respiratory failure with hypoxia secondary to large left-sided pleural effusion in the setting of community-acquired pneumonia. Acute on chronic respiratory failure with hypoxia, resolved Community-acquired versus hospital-acquired versus aspiration pneumonia Malignant, large Left sided Pleural effusion s/p diagnostic/therapeutic thoracentesis 05/20/2024 SIRS 4/4 - resolved Leukocytosis, improving Lactic acidosis, resolved Medical history is unclear. Patient was recently accepted at subacute unit. She is chronically pegged and trached. Apparently she has been spiking fevers of 101 over the last few days. Met 4/4 SIRS criteria with fever, tachypnea, tachycardia and leukocytosis. Chest x-ray significant for extensive pneumonia and atelectasis left lung. Repeat chest x-ray significant for extensive pneumonia/edema throughout all lung alfaro with large layering left pleural effusion. Chest CT significant for thyromegaly with multiple thyroid nodules, large bilateral pleural effusions, atelectasis and pneumonia left lung base. Mild pneumonia right lung base RSV negative MRSA nares negative [05/19] sputum culture grew Staphylococcus aureus. With beta-lactamase activity against ampicillin and penicillin. [05/19] Blood culture negative x 48 hours preliminary [05/22] blood culture negative x 48 hours preliminary PSI/PORT : 163 points. Risk class V. Hospitalization recommended based on risk Patient had diagnostic/therapeutic left thoracentesis on 05/20/2024. Patient had Pleurx catheter installed 05/25/2024. Drained 1300 cc of pleural fluid. Fluid analysis revealed a transudative effusion. Cytology report from 05/19/2024 findings include: Suspicious for malignancy. Malignant cells exist as individual cells with high N; C ratios [in the background of the PI-RADS signet-ring cells]. Differential diagnosis include primary tumor of lung, breast. Colon Unlikely. May also represent a combination of metastases including urogenital tract primary, reactive mesothelial proliferation or mesothelioma Received Zosyn and vancomycin IV for 2 days from [05/19 - 05/21] Plan: - Wean from ventilator to blow-by as tolerated ? Pending pleural fluid culture ? Continue DuoNebs Q6 hourly - Discontinued cefepime 2 g IV every 12 hourly for possible ventilator associated pneumonia on (05/22-05/26) -Augmentin 875 twice daily [05/26?currently] -Continue with Pleurx catheter for evacuation of effusion - Discussed with medical office worker of subacute facility, Dr. Hernandez. He is in agreement with the plan for placement of Pleurx catheter and said whenever patient is fit for discharge it can be managed in the subacute facility. Yeast urinary infection Urine culture completed on 05/22/2024 grew yeast. ID to follow. Plan: ?Fluconazole 200 Mg p.o. daily for 2 weeks. Newly diagnosed chronic diastolic congestive heart failure with preserved ejection fraction [EF 55 to 60%] Patient has scattered crackles auscultation bilaterally worse on right CXR shows bilateral pleural effusion worse on the left and consolidation of the right around cardiac silhouette. Trans-thoracic echocardiogram completed on 05/21/2024 : LV appears normal with EF 55-60%. Diastolic Dysfunction II is present. RV has mildly elevated RVSP of 45 mmHg MV has mod-severe MR. mild MAC. AOV looks sclerotic From telemetry review patient and sinus rhythm overnight with heart rate between 70s?80 80s. K 4.5, Mg 2.3. Will Keep K>4 and Mg >2 at all times to avoid arrhythmias Patient had fluid balance of - 1500cc in past 24 hours. Plan: ? Strict input output charting ? 2G sodium restricted diet ? 1500 cc/day fluid restriction - Lasix to 40 Mg IV twice daily - Cardiology, Dr. Guevara consulted for newly diagnosed diastolic heart failure. Appreciate recommendations Chronic normocytic anemia Chronic disease anemia On admission Hb 9.2. From chart review manage Hb between 8?9 Currently Hb 7.2 Iron 26, TIBC 156, iron saturation 16%, ferritin 634. CRP 6.3, B12 758, folate 16.84. Mixed picture of iron deficiency and anemia of chronic disease. 3/1 AM CBC showed hemoglobin 7.0, repeat H&H showed hemoglobin 7.2. Plan: ?Transfuse if hemoglobin less than 7.0 Sacral ulcer stage II/III Patient has sacral ulcer with minimal slough and some purulent drainage Debridement by general surgeon, Dr. Garrett on 05/23/2024 Plan: - Wound care as per wound care nurse - General Surgery, Dr. Garrett consulted. Appreciate recommendations. Primary HTN A-fib, likely paroxysmal NSTEMI type 1 vs type 2 - resolving HLD HASBLED 4 indicates high risk for major bleed. [id number] indicates 17% stroke/TIA/embolism. Troponin 0.077 ---> 0.238 EKG significant for sinus tachycardia, rate 107. Q waves in septal leads. No acute ST changes. Increasing troponin likely due to stress from diaphoresis and hypoxia. Plan: ? Continue telemetry monitoring ? Continue home medication amiodarone 200 Mg GT daily for rate control ? Continue home medication metoprolol tartrate 25 Mg GT twice daily - Eliquis continues to be on hold due to anemia Insulin-dependent diabetes mellitus type 2 [6.4%] Home medication insulin sliding scale Plan: ? Insulin sliding scale Hx of seizure disorder Not on home ANTIEPILEPTICS. No signs of seizures. ? Seizure precaution Chronic constipation Likely secondary to CVA. Patient on chronic LAXATIVES. ? Continue LACTULOSE 10 mg GT prn ? Continue senna daily Chronic PEG tube PEG tube appears intact without signs of infection. Plan: ? Tube feeds ? Registered dietitian referral Hx of CVA History of large cerebral vessel occlusion. Chronically trached and pegged. Opens eyes spontaneously. Does not follow command. Goals of care 05/25: Son does not wish for aggressive measures at this time but is okay with placement of Pleurx catheter for comfort. Health maintenance: Disposition: telemetry Diet: Tube feeds Lines: pIVs GI Prophylaxis: Pantoprazole IV Thrombo Prophylaxis: SCDs Code status: DNR Plan of care discussed with attending Dr. Arzola, PGY-[address] Josh Valdez MD, PGY 1. Attending Provider Attestation/Addendum I have examined the patient, reviewed labs and imaging findings, discussed the case with the resident(s), and reviewed entered orders. I agree with the plan of care as outlined in this note. Dr. Ness MD
--- NOTE | 2024-05-26 19:35 | ESPR_ITS ---
Documentation for date of: 05/26/24 Subjective Subjective Interval history: Patient is evaluated the bedside, nonverbal status, but is visually tracking subjective in the room, currently on mechanical ventilation via trach collar, status post Pleurx cath placement, preliminary diagnosis of metastatic neoplasm, unknown primary, from analysis of pleural fluid. Patient appears to be clinically dry, 2100 mL urine output, continue furosemide 40 mg twice daily for now, will reassess in the a.m. regarding volume status and need for diuresis. Noted moderate to severe MR on echocardiogram, EF was 55 to 60%. A-fib is currently rate controlled with amiodarone and metoprolol. pt was on eliquis at home, not continued inpateint, likely due to acute anemia. Exam Vital Signs Temp Pulse Resp BP Pulse Ox O2 Del Method O2 Flow Rate 98.4 F 64 26 H 135/62 H 99 Mechanical Ventilation 10 05/26/24 15:58 05/26/24 19:19 05/26/24 19:19 05/26/24 15:58 05/26/24 19:19 05/26/24 15:58 05/26/24 15:58 FiO2 30 05/26/24 19:19 Narrative Exam GENERAL: Elderly frail female, appears pale and chronically ill on mechanical ventilation NEURO: unable to asses as pt is chronically non verbal and bedbound HEENT: Atraumatic, Normocephalic. mucous membranes moist. Eyes open, symmetrical, & clear HEART: Normal Heart Sounds LUNGS: Clear to auscultation with no wheezing or crackles. ABDOMEN: soft, non-distended, non-tender, bowel sounds heard, no guarding or rebound tenderness SKIN: No Rash or ecchymoses, deep sacral ulcer EXTREMITIES: No edema, pedal pulses palpated, unable to move her extremities - contracted LE , Objective Labs 05/26/24 12:45 05/26/24 04:31 Labs: Laboratory Results - last 24 hr 05/26/24 05/26/24 04:31 12:45 WBC 19.6 H RBC 2.46 L Hgb 7.0 L 7.2 L Hct 21.8 L* 22.0 L MCV 89 MCH 28.5 MCHC 32.1 RDW Std Deviation 48.2 H Plt Count 329 Neut % (Auto) 87 H Lymph % (Auto) 5 L [place] % (Auto) 6 Eos % (Auto) 1 Baso % (Auto) 0 Neut # (Auto) 17.1 H Lymph # (Auto) 1.0 [place] # (Auto) 1.2 H Eos # (Auto) 0.1 Baso # (Auto) 0.0 Immature Gran # (Auto) 0.14 H Absolute Nucleated RBC 0.00 Immature Gran % 1 H Nucleated RBC % 0 Sodium 138 Potassium 4.1 Chloride 101 Carbon Dioxide 29.2 Anion Gap 8 BUN 39 H Creatinine 0.9 Estim Creat Clear Calc 35.7 L eGFR > 60 BUN/Creatinine Ratio 43 H Glucose 222 H Calculated Osmolality 292 Calcium 8.0 L Corrected Calcium 8.9 Phosphorus 3.4 Magnesium 2.1 Total Bilirubin 0.3 AST 15 ALT 27 Alkaline Phosphatase 81 Total Protein 5.8 Albumin 2.9 L Globulin 2.9 Albumin/Globulin Ratio 1.0 L ABG Interpretation ABG results: 05/20/24 05/20/24 07:00 11:00 ABG pH 7.40 7.43 ABG pCO2 45 41 ABG pO2 44 L* 53 L* ABG HCO3 28 H 27 H ABG O2 Saturation 94 100 H ABG Base Excess 3 3 Quality Measures Quality Measures VTE prophylaxis Advance care planning discussed with:: patient Assessment & Plan Assessment Current Active Medications: Generic Name Dose Route Start Last Admin Trade Name Freq PRN Reason Stop Dose Admin Acetaminophen 650 mg 05/20/24 09:38 05/21/24 16:34 Acetaminophen Viviana 325 Mg/10 Ml Udc GT 06/18/24 14:45 650 mg Q6HR PRN Administration Pain(1-3) Or Fever > 100.3 Albuterol/Ipratropium 3 ml 05/19/24 19:00 05/26/24 19:16 Albuterol/Ipratropium (Duoneb) Rt Viviana 3 Ml Nebu INH 06/18/24 18:59 3 ml Q6HRRT AMARJIT Administration Amiodarone HCl 200 mg 05/20/24 09:00 05/26/24 08:44 Amiodarone Hcl 200 Mg Tablet GT 06/19/24 08:59 200 mg DAILY AMARJIT Administration Amoxicillin/Clavulanate Potassium 1 tab 05/26/24 21:00 Amoxicillin/Pot Clav 875 Tablet PO 06/02/24 20:59 BID AMARJIT Atorvastatin Calcium 40 mg 05/19/24 21:00 05/25/24 20:38 Atorvastatin Calcium 20 Mg Tablet GT 06/18/24 20:59 40 mg HS AMARJIT Administration Collagenase 0 gm 05/20/24 09:00 05/26/24 12:10 Collagenase Oint 30 Gm Tube TOP 06/19/24 08:59 1 applicatio BID AMARJIT Administration Dextrose 50 ml 05/19/24 14:50 Dextrose 50%-Water Inj 50 Ml Syringe IV 06/18/24 14:49 Q15MIN PRN BG <50 OR BG <70 & pt unresponsive Fluconazole 200 mg 05/24/24 10:15 05/26/24 08:38 Fluconazole Susp 40 Mg/Ml Ml GT 05/31/24 10:14 200 mg QDAY AMARJIT Administration Furosemide 40 mg 05/25/24 09:00 05/26/24 08:40 Furosemide Inj 10 Mg/Ml 4ml Vial IVP 06/24/24 08:59 40 mg BID AMARJIT Administration Glucagon 1 mg 05/19/24 14:50 Glucagon Inj 1 Mg Vial IM Q15MIN PRN BG <70, and no IV access Insulin Human Lispro 0 unit 05/19/24 18:00 05/26/24 17:59 Insulin Lispro (Admelog) 1 Unit/0.01 Ml Unit SC 06/18/24 17:59 3 unit Q6HR AMARJIT Administration Protocol Lactulose 10 gm 05/19/24 16:14 Lactulose Syrup 20 Gm/30 Ml Udc GT 06/19/24 08:59 DAILY PRN Constipation Protocol Metoprolol Tartrate 25 mg 05/19/24 21:00 05/26/24 08:39 Metoprolol Tartrate 25 Mg Tablet GT 06/18/24 20:59 25 mg BID AMARJIT Administration Ondansetron HCl 4 mg 05/19/24 14:24 Ondansetron Inj 2 Mg/Ml Inj 2 Ml IV 06/18/24 14:23 Q6H PRN NAUSEA OR VOMITING Protocol Pantoprazole Sodium 40 mg 05/19/24 14:30 05/26/24 08:44 Pantoprazole Inj 40 Mg Vial IVP 06/18/24 14:29 40 mg QDAY AMARJIT Administration Sennosides 1 tab 05/20/24 09:00 05/26/24 08:39 Senna Tablet GT 06/19/24 08:59 1 tab QDAY AMARJIT Administration Protocol Plan Ms. Guaman is an 83 year female with past medical history significant for Hypertension, non-insulin dependent type 2 diabetes, seizure disorder, Hx of a- fib and hx of multiple CVA's. Pt is chronically non verbal since the CVA's and has been tracheostomy with PEG tube placement unsure of when as Pt first arrived at [facility] subacute facility in March 2024. Pt was brought back to the ED on 05/19/24 for recurrent fevers and reaccumulation of large left pleural effusions. #Acute hypoxic respiratory failure in the setting of #Sepsis 2/2 #bilateraly pneumonia #Pleural effusions s/p thoracenthesis # Pleural effusions -malignant cells -Pt presented from subacute due to recurrent fevers -RSV, influenza A & B and COVID negative -SIRS / met: leukocytosis, tachycardia, tachyapnea and fever -CRX- [id number] heart failure, Moderate bilateral pleural effusions, Prominent vascular congestion with perihilar basilar edema. Extensive pneumonia and/or edema throughout the lung alfaro with large layered left pleural effusion -left thoracenthesis done on 05/20 drained 1300 cc of -Will monitor consistent with exudative effusions -pleural fluid cytology is suspicious for malignant cells -Pt is on antibiotics and Duonebs -Chest x-rays from today shows bilateral pleural effusions patient is scheduled to get a Pleurx cath placed #Acute exacerbation of CHF- improved #New onset of diastolic CHF- HFpEF with EF 55-60% -although pt does appear to be fluid overloaded on physical examination with 1+ dependant edema in the upper thigh and unable to provide history of symptoms -CRX- evident of vascular congestion with pleural effusions -BNP 2371 echo done on 05/21/24 LV appears normal with EF 55-60%. Diastolic Dysfunction II is present. RV has mildly elevated RVSP of 45 mmHg MV has mod-severe MR. mild MAC AOV looks sclerotic. TV has mild to moderate TR. Large pleural Effusion present. -Pt is net negative 1400cc -Pt is restarted on Lasix 40 daily -Strict input output, daily weights and low-sodium tube feeds -Chest x-rays from today shows bilateral pleural effusions patient is scheduled to get a Pleurx cath placed #Hx of A-fib -Pt has history of A-fib which is rate and rhythm controlled with Amiodarone and metoprolol -EKG shows sinus rhythm -CHADsVAS score- 7 -HAS-BLED score 3 -Pt is rate and rhythm controlled with amiodarone and metoprolol and for anticoagulation, pt was on eliquis at home, not continued inpateint, likely due to acute anemia #Acute Anemia -Hemoglobin is 7.2, hematocrit 22, MCV 88 -Iron panel today showed iron 26, TIBC 156, iron saturation 16%, unsaturated iron 130, ferritin 634 findings are aligned with inflammatory anemia likely in the setting of sepsis -Transfuse if hemoglobin <7 -Monitor daily CBC #Primary Hypertension -Pt's home amlodipine is not resumed. Pt BP is well controlled #Insulin dependent type 2 diabetes -A1c 6.4 on 04/22/24 -Pt is on insulin sliding scale #Sacral ulcer -Pt has deep sacral ulcer -Status post excisional debridement of sacral decubitus ulcer done on 05/22 #UTI -Urine culture from 05/22/2024 grew yeast -Patient is started on fluconazole and ID is following #History of seizure disorder -Pt is currently not on antiepileptic meds #Hx of CVA -Pt has history of multiple CVA with residual deficit and non verbal -Pt is s/p tracheostomy and PEG tube placement -Pt is on statin Assessment and plan discussed with my attending physician Dr. Ismael Eugene (PGY-2)- Internal medicine resident Attending Provider Attestation/Addendum I have personally seen and examined the patient separately on the above date of service and discussed the plan of care with the resident. I reviewed the resident Dr. Mesha Eugene consultation progress note and agree with the resident findings and plan in the note above and have also edited the documentation to reflect my findings and plan. Alfa Guevara M.D. Interventional Cardiology
[2024-05-26] MEDS: AMOXICILLIN/POT CLAV 875 TABLET 1 TAB PO (20:52)
[2024-05-26] MEDS: ATORVASTATIN CALCIUM 20 MG TABLET 40 MG GT (20:52)
[2024-05-27] VITALS (21 sets, daily range): BP systolic 109–153; BP diastolic 51–71; PULSE 62–77; RESP 20–30; TEMP 36.5–37.7; O2SAT 30–100; BMI 21.2
[2024-05-27] MEDS: ALBUTEROL/IPRATROPIUM (Duoneb) RT SOL 3 ML NEBU INH ×4 (00:01→18:44)
[2024-05-27] MEDS: INSULIN LISPRO (AdmeLOG) 1 UNIT/0.01 ML UNIT SC ×4 (05:33→23:34)
[2024-05-27 05:58] LABS: Alanine Aminotransferase 26 U/L (10-49); Albumin, Serum 2.9 gm/dL (3.4-4.8); Alkaline Phosphatase 77 U/L (46-116); Anion Gap 6 (7-16); Aspartate Amino Transferase 13 U/L (0-34); BUN/Creatinine Ratio 42 Ratio (12-20); Bilirubin,Total 0.3 mg/dL (0.3-1.2); Blood Urea Nitrogen 38 mg/dL (9-23); Calcium (Corrected) 8.9 mg/dL (8.5-10.1); Carbon Dioxide 31.1 mMol/L (20.0-31.0); Chloride 100 mMol/L (98-107); Creatinine (Component) 0.9 mg/dL (0.6-1.3); Estimated Creatinine Clearance 35.7 mL/min (>60); Glucose 194 mg/dL (74-106); Magnesium 1.9 mg/dL (1.6-2.6); Osmolality,Calculated 287 (275-295); Potassium 3.9 mMol/L (3.4-5.1); Sodium 137 mMol/L (136-145); Total Protein 5.9 gm/dL (5.7-8.2); eGFR > 60 See Note
[2024-05-27 06:06] LABS: Basophils % (Auto) 0 % (0-2.5); Eosinophils # (Auto) 0.3 Thou/mm3 (0.0-0.5); Eosinophils % (Auto) 2 % (0-10); Hematocrit 20.9 % (36.0-46.0); Immature Granulocytes % (Auto) 1 % (0-0); Immature Granulocytes Auto 0.11 Thou/mm3 (0.00-0.00); Lymphocytes # (Auto) 1.2 Thou/mm3 (1.0-4.8); Lymphocytes % (Auto) 7 % (10-50); Mean Corpuscular HGB Conc 32.5 g/dl (31.0-37.0); Mean Corpuscular Hemoglobin 28.8 pg (25.0-35.0); Mean Corpuscular Volume 89 fL (80-100); Monocytes # (Auto) 1.3 Thou/mm3 (0.0-0.8); Monocytes % (Auto) 7 % (0-12); Neutrophils # (Auto) 14.9 Thou/mm3 (1.8-7.7); Neutrophils % (Auto) 83 % (37-80); Nucleated Red Blood Cell % 0 /100 WBC (0); Platelet Count 305 Thou/mm3 (140-440); RDW Standard Deviation 48.6 fL (36.4-46.3); Red Blood Count 2.36 Miln/mm3 (4.00-5.20); White Blood Count 17.9 Thou/mm3 (3.6-11.0)
[2024-05-27 06:28] LABS: Hemoglobin 6.8 g/dL (12.0-16.0)
[2024-05-27] MEDS: FUROSEMIDE INJ 10 MG/ML 4ML VIAL 40 MG IVP ×2 (08:07→20:26)
[2024-05-27] MEDS: METOPROLOL TARTRATE 25 MG TABLET GT ×2 (08:08→20:27)
[2024-05-27] MEDS: AMIODARONE HCL 200 MG TABLET GT (08:08)
[2024-05-27] MEDS: AMOXICILLIN/POT CLAV 875 TABLET 1 TAB PO ×2 (08:08→20:27)
[2024-05-27] MEDS: SENNA TABLET 1 TAB GT (08:08)
[2024-05-27] MEDS: PANTOPRAZOLE INJ 40 MG VIAL IVP (08:08)
[2024-05-27] MEDS: FLUCONAZOLE SUSP 40 MG/ML ML 200 MG GT (08:13)
[2024-05-27] MEDS: COLLAGENASE OINT 30 GM TUBE TOP ×2 (08:25→20:31)
--- NOTE | 2024-05-27 09:38 | ESPR_ITS ---
Documentation for date of: 05/27/24 Subjective Subjective Interval history: Patient is evaluated the bedside, nonverbal status, but is visually tracking subjective in the room, currently on mechanical ventilation via trach collar, status post Pleurx cath placement, preliminary diagnosis of metastatic neoplasm, unknown primary, from analysis of pleural fluid. Patient appears to be 1925cc urine output, net -725 cc, continue furosemide 40 mg twice daily for now, will reassess in the a.m. regarding volume status and need for diuresis. Patient noted to be on SBT on mechanical ventilator. Noted moderate to severe MR on echocardiogram, EF was 55 to 60%. A-fib is currently rate controlled with amiodarone and metoprolol. Eliquis being held due to anemia. Exam Vital Signs Temp Pulse Resp BP Pulse Ox O2 Del Method O2 Flow Rate 98.0 F 77 30 H 134/61 H 99 Mechanical Ventilation 10 05/27/24 08:00 05/27/24 08:08 05/27/24 08:00 05/27/24 08:08 05/27/24 08:00 05/27/24 08:00 05/26/24 15:58 FiO2 30 05/27/24 06:29 Narrative Exam GENERAL: Elderly frail female, appears pale and chronically ill on mechanical ventilation NEURO: unable to asses as pt is chronically non verbal and bedbound HEENT: Atraumatic, Normocephalic. mucous membranes moist. Eyes open, symmetrical, & clear HEART: Normal Heart Sounds LUNGS: Clear to auscultation with no wheezing or crackles. ABDOMEN: soft, non-distended, non-tender, bowel sounds heard, no guarding or rebound tenderness SKIN: No Rash or ecchymoses, deep sacral ulcer, sacral edema noted EXTREMITIES: No edema, pedal pulses palpated, unable to move her extremities - contracted LE , Objective Labs 05/27/24 15:42 05/27/24 04:55 Labs: Laboratory Results - last 24 hr 05/26/24 05/27/24 05/27/24 12:45 04:55 08:12 WBC 17.9 H RBC 2.36 L Hgb 7.2 L 6.8 L* Hct 22.0 L 20.9 L* MCV 89 MCH 28.8 MCHC 32.5 RDW Std Deviation 48.6 H Plt Count 305 Neut % (Auto) 83 H Lymph % (Auto) 7 L [place] % (Auto) 7 Eos % (Auto) 2 Baso % (Auto) 0 Neut # (Auto) 14.9 H Lymph # (Auto) 1.2 [place] # (Auto) 1.3 H Eos # (Auto) 0.3 Baso # (Auto) 0.0 Immature Gran # (Auto) 0.11 H Absolute Nucleated RBC 0.00 Immature Gran % 1 H Nucleated RBC % 0 Sodium 137 Potassium 3.9 Chloride 100 Carbon Dioxide 31.1 H Anion Gap 6 L BUN 38 H Creatinine 0.9 Estim Creat Clear Calc 35.7 L eGFR > 60 BUN/Creatinine Ratio 42 H Glucose 194 H Calculated Osmolality 287 Calcium 8.0 L Corrected Calcium 8.9 Phosphorus 3.0 Magnesium 1.9 Total Bilirubin 0.3 AST 13 ALT 26 Alkaline Phosphatase 77 Total Protein 5.9 Albumin 2.9 L Globulin 3.0 Albumin/Globulin Ratio 1.0 L Crossmatch See Detail Blood Bank Wristband ID Yes ABG Interpretation ABG results: 05/20/24 05/20/24 07:00 11:00 ABG pH 7.40 7.43 ABG pCO2 45 41 ABG pO2 44 L* 53 L* ABG HCO3 28 H 27 H ABG O2 Saturation 94 100 H ABG Base Excess 3 3 Quality Measures Quality Measures VTE prophylaxis Advance care planning discussed with:: patient Assessment & Plan Assessment Current Active Medications: Generic Name Dose Route Start Last Admin Trade Name Freq PRN Reason Stop Dose Admin Acetaminophen 650 mg 05/20/24 09:38 05/21/24 16:34 Acetaminophen Viviana 325 Mg/10 Ml Udc GT 06/18/24 14:45 650 mg Q6HR PRN Administration Pain(1-3) Or Fever > 100.3 Albuterol/Ipratropium 3 ml 05/19/24 19:00 05/27/24 06:28 Albuterol/Ipratropium (Duoneb) Rt Viviana 3 Ml Nebu INH 06/18/24 18:59 3 ml Q6HRRT AMARJIT Administration Amiodarone HCl 200 mg 05/20/24 09:00 05/27/24 08:08 Amiodarone Hcl 200 Mg Tablet GT 06/19/24 08:59 200 mg DAILY AMARJIT Administration Amoxicillin/Clavulanate Potassium 1 tab 05/26/24 21:00 05/27/24 08:08 Amoxicillin/Pot Clav 875 Tablet PO 06/02/24 20:59 1 tab BID AMARJIT Administration Atorvastatin Calcium 40 mg 05/19/24 21:00 05/26/24 20:52 Atorvastatin Calcium 20 Mg Tablet GT 06/18/24 20:59 40 mg HS AMARJIT Administration Collagenase 0 gm 05/20/24 09:00 05/27/24 08:25 Collagenase Oint 30 Gm Tube TOP 06/19/24 08:59 1 applicatio BID AMARJIT Administration Dextrose 50 ml 05/19/24 14:50 Dextrose 50%-Water Inj 50 Ml Syringe IV 06/18/24 14:49 Q15MIN PRN BG <50 OR BG <70 & pt unresponsive Fluconazole 200 mg 05/24/24 10:15 05/27/24 08:13 Fluconazole Susp 40 Mg/Ml Ml GT 05/31/24 10:14 200 mg QDAY AMARJIT Administration Furosemide 40 mg 05/25/24 09:00 05/27/24 08:07 Furosemide Inj 10 Mg/Ml 4ml Vial IVP 06/24/24 08:59 40 mg BID AMARJIT Administration Glucagon 1 mg 05/19/24 14:50 Glucagon Inj 1 Mg Vial IM Q15MIN PRN BG <70, and no IV access Insulin Human Lispro 0 unit 05/19/24 18:00 05/27/24 05:33 Insulin Lispro (Admelog) 1 Unit/0.01 Ml Unit SC 06/18/24 17:59 2 unit Q6HR AMARJIT Administration Protocol Lactulose 10 gm 05/19/24 16:14 Lactulose Syrup 20 Gm/30 Ml Udc GT 06/19/24 08:59 DAILY PRN Constipation Protocol Metoprolol Tartrate 25 mg 05/19/24 21:00 05/27/24 08:08 Metoprolol Tartrate 25 Mg Tablet GT 06/18/24 20:59 25 mg BID AMARJIT Administration Ondansetron HCl 4 mg 05/19/24 14:24 Ondansetron Inj 2 Mg/Ml Inj 2 Ml IV 06/18/24 14:23 Q6H PRN NAUSEA OR VOMITING Protocol Pantoprazole Sodium 40 mg 05/19/24 14:30 05/27/24 08:08 Pantoprazole Inj 40 Mg Vial IVP 06/18/24 14:29 40 mg QDAY AMARJIT Administration Sennosides 1 tab 05/20/24 09:00 05/27/24 08:08 Senna Tablet GT 06/19/24 08:59 1 tab QDAY AMARJIT Administration Protocol Plan Ms. Guaman is an 83 year female with past medical history significant for Hypertension, non-insulin dependent type 2 diabetes, seizure disorder, Hx of a- fib and hx of multiple CVA's. Pt is chronically non verbal since the CVA's and has been tracheostomy with PEG tube placement unsure of when as Pt first arrived at [facility] subacute facility in March 2024. Pt was brought back to the ED on 05/19/24 for recurrent fevers and reaccumulation of large left pleural effusions. #Acute hypoxic respiratory failure in the setting of #Sepsis 2/ #bilateraly pneumonia #Pleural effusions s/p thoracenthesis # Pleural effusions -malignant cells -Pt presented from subacute due to recurrent fevers -RSV, influenza A & B and COVID negative -SIRS 06/29 met: leukocytosis, tachycardia, tachyapnea and fever -CXR- [id number]-[id number] heart failure, Moderate bilateral pleural effusions, Prominent vascular congestion with perihilar basilar edema. Extensive pneumonia and/or edema throughout the lung alfaro with large layered left pleural effusion -left thoracenthesis done on 05/20 drained 1300 cc -Will monitor consistent with exudative effusions -pleural fluid cytology is suspicious for malignant cells -Pt is on antibiotics and Duonebs -Chest x-rays from today shows bilateral pleural effusions patient is scheduled to get a Pleurx cath placed #Acute exacerbation of CHF- improved #New onset of diastolic CHF- HFpEF with EF 55-60% -although pt does appear to be fluid overloaded on physical examination with 1+ dependant edema in the upper thigh and unable to provide history of symptoms -CRX- evident of vascular congestion with pleural effusions -BNP 2371 ECHO done on 05/21/24 LV appears normal with EF 55-60%. Diastolic Dysfunction II is present. RV has mildly elevated RVSP of 45 mmHg MV has mod-severe MR. mild MAC AOV looks sclerotic. TV has mild to moderate TR. Large pleural Effusion present. -Pt is net negative 725cc -Pt is on Lasix 40 twice daily -Strict input output, daily weights and low-sodium tube feeds #Hx of A-fib -Pt has history of A-fib which is rate and rhythm controlled with Amiodarone and metoprolol -EKG shows sinus rhythm -CHADsVAS score- 7 -HAS-BLED score 3 -Pt is rate and rhythm controlled with amiodarone and metoprolol and for anticoagulation, pt was on eliquis at home, not continued inpateint, likely due to acute anemia #Acute Anemia -Hemoglobin is 7.2, hematocrit 22, MCV 88 -Iron panel today showed iron 26, TIBC 156, iron saturation 16%, unsaturated iron 130, ferritin 634 findings are aligned with inflammatory anemia likely in the setting of sepsis -Transfuse if hemoglobin <7 -Monitor daily CBC #Primary Hypertension -Pt's home amlodipine is not resumed. Pt BP is well controlled #Insulin dependent type 2 diabetes -A1c 6.4 on 04/22/24 -Pt is on insulin sliding scale #Sacral ulcer -Pt has deep sacral ulcer -Status post excisional debridement of sacral decubitus ulcer done on 05/22 #UTI -Urine culture from 05/22/2024 grew yeast -Patient is started on fluconazole and ID is following #History of seizure disorder -Pt is currently not on antiepileptic meds #Hx of CVA -Pt has history of multiple CVA with residual deficit and non verbal -Pt is s/p tracheostomy and PEG tube placement -Pt is on statin Assessment and plan discussed with my attending physician Dr. Ismael Fitzgerald PGY1 Attending Provider Attestation/Addendum I have personally seen and examined the patient separately on the above date of service and discussed the plan of care with the resident. I reviewed the resident Dr. Carl Fitzgerald consultation progress note and agree with the resident findings and plan in the note above and have also edited the documentation to reflect my findings and plan. Alfa Guevara M.D. Interventional Cardiology
--- NOTE | 2024-05-27 12:13 | PD.RESPRO ---
Documentation for date of: 05/27/24 Subjective Subjective Interval history: 05/27/2024: Overnight patient's HR was in the 60s as such night team held metoprolol tartrate dose. Patient's Hgb was also found to be low at 6.8 and so 1 unit of pRBC was ordered. This morning patient seen and assessed in hospital bed awake, but remains non-verbal. On the ventilator satting well with FiO2 of 30 and PEEP of 7; driving pressures around 10mmHg. Patient's son contacted regarding her need for transfusion and agreed after risk/benefits and alternatives were discussed and he agreed to proceed with transfusion. Will have goals of care discussion with the patient's family tomorrow regarding long-term outlook and guarded prognosis. Exam Vital Signs Temp Pulse Resp BP Pulse Ox O2 Del Method O2 Flow Rate 98.9 F 66 21 H 135/65 H 99 Mechanical Ventilation 10 05/27/24 11:49 05/27/24 11:58 05/27/24 11:58 05/27/24 11:49 05/27/24 11:58 05/27/24 11:49 05/27/24 11:49 FiO2 30 05/27/24 11:58 Narrative Exam Physical Exam General: Awake, non-conversational (s/p strokes and tracheostomy) HEENT: Normocephalic, atraumatic, mucous membranes moist. Chronic tracheostomy. Heart: Regular rate and rhythm, no murmurs. Lungs: Clear to auscultation with no wheezing or crackles. Per percussion sound is normal resonance. Abdomen: Soft, nondistended, nontender, positive bowel sounds. ?No guarding or rebound tenderness PEG tube area normal.. Extremities: No edema. Skin: No rash or ecchymoses. Neurologic: Alert and oriented x0, does not follows commands Objective Labs 05/27/24 04:55 05/27/24 04:55 Labs: Laboratory Results - last 24 hr 05/26/24 05/27/24 05/27/24 12:45 04:55 08:12 WBC 17.9 H RBC 2.36 L Hgb 7.2 L 6.8 L* Hct 22.0 L 20.9 L* MCV 89 MCH 28.8 MCHC 32.5 RDW Std Deviation 48.6 H Plt Count 305 Neut % (Auto) 83 H Lymph % (Auto) 7 L [place] % (Auto) 7 Eos % (Auto) 2 Baso % (Auto) 0 Neut # (Auto) 14.9 H Lymph # (Auto) 1.2 [place] # (Auto) 1.3 H Eos # (Auto) 0.3 Baso # (Auto) 0.0 Immature Gran # (Auto) 0.11 H Absolute Nucleated RBC 0.00 Immature Gran % 1 H Nucleated RBC % 0 Sodium 137 Potassium 3.9 Chloride 100 Carbon Dioxide 31.1 H Anion Gap 6 L BUN 38 H Creatinine 0.9 Estim Creat Clear Calc 35.7 L eGFR > 60 BUN/Creatinine Ratio 42 H Glucose 194 H Calculated Osmolality 287 Calcium 8.0 L Corrected Calcium 8.9 Phosphorus 3.0 Magnesium 1.9 Total Bilirubin 0.3 AST 13 ALT 26 Alkaline Phosphatase 77 Total Protein 5.9 Albumin 2.9 L Globulin 3.0 Albumin/Globulin Ratio 1.0 L Blood Type A Positive Antibody Screen NEGATIVE Crossmatch See Detail Blood Bank Wristband ID Yes ABG Interpretation ABG results: 05/20/24 05/20/24 07:00 11:00 ABG pH 7.40 7.43 ABG pCO2 45 41 ABG pO2 44 L* 53 L* ABG HCO3 28 H 27 H ABG O2 Saturation 94 100 H ABG Base Excess 3 3 Quality Measures Quality Measures VTE prophylaxis Advance care planning discussed with:: child Assessment & Plan Assessment Current Active Medications: Generic Name Dose Route Start Last Admin Trade Name Freq PRN Reason Stop Dose Admin Acetaminophen 650 mg 05/20/24 09:38 05/21/24 16:34 Acetaminophen Viviana 325 Mg/10 Ml Udc GT 06/18/24 14:45 650 mg Q6HR PRN Administration Pain(1-3) Or Fever > 100.3 Albuterol/Ipratropium 3 ml 05/19/24 19:00 05/27/24 11:57 Albuterol/Ipratropium (Duoneb) Rt Viviana 3 Ml Nebu INH 06/18/24 18:59 3 ml Q6HRRT AMARJIT Administration Amiodarone HCl 200 mg 05/20/24 09:00 05/27/24 08:08 Amiodarone Hcl 200 Mg Tablet GT 06/19/24 08:59 200 mg DAILY AMARJIT Administration Amoxicillin/Clavulanate Potassium 1 tab 05/26/24 21:00 05/27/24 08:08 Amoxicillin/Pot Clav 875 Tablet PO 06/02/24 20:59 1 tab BID AMARJIT Administration Atorvastatin Calcium 40 mg 05/19/24 21:00 05/26/24 20:52 Atorvastatin Calcium 20 Mg Tablet GT 06/18/24 20:59 40 mg HS AMARJIT Administration Collagenase 0 gm 05/20/24 09:00 05/27/24 08:25 Collagenase Oint 30 Gm Tube TOP 06/19/24 08:59 1 applicatio BID AMARJIT Administration Dextrose 50 ml 05/19/24 14:50 Dextrose 50%-Water Inj 50 Ml Syringe IV 06/18/24 14:49 Q15MIN PRN BG <50 OR BG <70 & pt unresponsive Fluconazole 200 mg 05/24/24 10:15 05/27/24 08:13 Fluconazole Susp 40 Mg/Ml Ml GT 05/31/24 10:14 200 mg QDAY AMARJIT Administration Furosemide 40 mg 05/25/24 09:00 05/27/24 08:07 Furosemide Inj 10 Mg/Ml 4ml Vial IVP 06/24/24 08:59 40 mg BID AMAJRIT Administration Glucagon 1 mg 05/19/24 14:50 Glucagon Inj 1 Mg Vial IM Q15MIN PRN BG <70, and no IV access Insulin Human Lispro 0 unit 05/19/24 18:00 05/27/24 11:27 Insulin Lispro (Admelog) 1 Unit/0.01 Ml Unit SC 06/18/24 17:59 3 unit Q6HR AMARJIT Administration Protocol Lactulose 10 gm 05/19/24 16:14 Lactulose Syrup 20 Gm/30 Ml Udc GT 06/19/24 08:59 DAILY PRN Constipation Protocol Metoprolol Tartrate 25 mg 05/19/24 21:00 05/27/24 08:08 Metoprolol Tartrate 25 Mg Tablet GT 06/18/24 20:59 25 mg BID AMARJIT Administration Ondansetron HCl 4 mg 05/19/24 14:24 Ondansetron Inj 2 Mg/Ml Inj 2 Ml IV 06/18/24 14:23 Q6H PRN NAUSEA OR VOMITING Protocol Pantoprazole Sodium 40 mg 05/19/24 14:30 05/27/24 08:08 Pantoprazole Inj 40 Mg Vial IVP 06/18/24 14:29 40 mg QDAY AMARJIT Administration Sennosides 1 tab 05/20/24 09:00 05/27/24 08:08 Senna Tablet GT 06/19/24 08:59 1 tab QDAY AMARJIT Administration Protocol Plan Patient is an 83-year-old [place] female, 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 Patient will be admitted for acute respiratory failure with hypoxia secondary to large left-sided pleural effusion in the setting of community-acquired pneumonia. #Acute on chronic respiratory failure with hypoxia, resolved #Community-acquired versus hospital-acquired versus aspiration pneumonia #Malignant, large Left sided Pleural effusion s/p diagnostic/therapeutic thoracentesis 05/20/2024 Medical history is unclear. Patient was recently accepted at subacute unit. She is chronically pegged and trached. Apparently she has been spiking fevers of 101 over the last few days. Met 4/4 SIRS criteria with fever, tachypnea, tachycardia and leukocytosis. Chest x-ray significant for extensive pneumonia and atelectasis left lung. Repeat chest x-ray significant for extensive pneumonia/edema throughout all lung alfaro with large layering left pleural effusion. Chest CT significant for thyromegaly with multiple thyroid nodules, large bilateral pleural effusions, atelectasis and pneumonia left lung base. Mild pneumonia right lung base RSV negative MRSA nares negative [05/19] sputum culture grew Staphylococcus aureus. With beta-lactamase activity against ampicillin and penicillin. [05/19] Blood culture negative x 48 hours preliminary [05/22] blood culture negative x 48 hours preliminary PSI/PORT : 163 points. Risk class V. Hospitalization recommended based on risk Patient had diagnostic/therapeutic left thoracentesis on 05/20/2024. Patient had Pleurx catheter installed 05/25/2024. Drained 1300 cc of pleural fluid. Fluid analysis revealed a transudative effusion. Cytology report from 05/19/2024 findings include: Suspicious for malignancy. Malignant cells exist as individual cells with high N; C ratios [in the background of the PI-RADS signet-ring cells]. Differential diagnosis include primary tumor of lung, breast. Colon Unlikely. May also represent a combination of metastases including urogenital tract primary, reactive mesothelial proliferation or mesothelioma Received Zosyn and vancomycin IV for 2 days from [05/19 - 05/21] Plan: Wean from ventilator to blow-by as tolerated Pending pleural fluid culture Continue DuoNebs Q6 hourly Augmentin 875 twice daily [05/26?currently] Continue with Pleurx catheter for evacuation of effusion Discussed with medical records library professor of subacute facility, Dr. Hernandez. He is in agreement with the plan for placement of PleurX catheter and said whenever patient is fit for discharge it can be managed in the subacute facility #Newly diagnosed chronic diastolic congestive heart failure with preserved ejection fraction [EF 55 to 60%] Patient has scattered crackles auscultation bilaterally worse on right CXR shows bilateral pleural effusion worse on the left and consolidation of the right around cardiac silhouette. Trans-thoracic echocardiogram completed on 05/21/2024: LV appears normal with EF 55-60%. Diastolic Dysfunction II is present. RV has mildly elevated RVSP of 45 mmHg MV has mod-severe MR. mild MAC. AOV looks sclerotic From telemetry review patient and sinus rhythm overnight with heart rate between 70s?80 80s. K 4.5, Mg 2.3. Will Keep K>4 and Mg >2 at all times to avoid arrhythmias Patient had fluid balance of - 1500cc in past 24 hours. Plan: Strict input output charting 2G sodium restricted diet 1500 cc/day fluid restriction Lasix 40 Mg IV twice daily Cardiology, Dr. Guevara consulted for newly diagnosed diastolic heart failure. Appreciate recommendations #Chronic normocytic anemia #Chronic disease anemia On admission Hb 9.2. From chart review manage Hb between 8?9 Currently Hb 7.2 Iron 26, TIBC 156, iron saturation 16%, ferritin 634. CRP 6.3, B12 758, folate 16.84. Mixed picture of iron deficiency and anemia of chronic disease. 05/26 AM CBC showed hemoglobin 7.0, repeat H&H showed hemoglobin 7.2. 05/27 AM CBC showed hemoglogin 6.8; transfused 1u pRBC Plan: Post-transfusion H-H ordered Transfuse if hemoglobin less than 7.0 #Sacral ulcer stage II/III Patient has sacral ulcer with minimal slough and some purulent drainage Debridement by general surgeon, Dr. Garrett on 05/23/2024 Plan: Wound care as per wound care nurse General Surgery, Dr. Garrett consulted. Appreciate recommendationss #Primary Hypertension #A-fib, likely paroxysmal #NSTEMI type 1 vs type 2 - resolving #Hyperlipidemia HASBLED 4 indicates high risk for major bleed. [id number] indicates 17% stroke/TIA/embolism. Troponin 0.077 ---> 0.238 EKG significant for sinus tachycardia, rate 107. Q waves in septal leads. No acute ST changes. Increasing troponin likely due to stress from diaphoresis and hypoxia. Plan: Continue telemetry monitoring Continue home medications amiodarone 200 Mg GT daily for rate control and metoprolol tartrate 25 Mg GT twice daily Eliquis continues to be on hold due to anemia #Insulin-dependent diabetes mellitus type 2 A1c [6.4%] Home medication insulin sliding scale Plan: Insulin sliding scale #Yeast urinary infection Urine culture completed on 05/22/2024 grew yeast. ID to follow. Plan: Fluconazole 200 Mg p.o. daily for 2 weeks. #Hx of seizure disorder Not on home ANTIEPILEPTICS. No signs of seizures. Plan: Seizure precaution #Chronic constipation Likely secondary to CVA. Patient on chronic laxatives Plan: Continue Lactulose 10 mg GT prn Continue senna daily #Chronic PEG tube #Hx of CVA #Goals of care History of large cerebral vessel occlusion. Chronically trached and pegged. Opens eyes spontaneously. Does not follow command. PEG tube appears intact without signs of infection. 05/25: Son does not wish for aggressive measures at this time but is okay with placement of Pleurx catheter for comfort. Plan: Tube feeds Registered dietitian referral Plan on having goals of care discussion with family on 05/28/2024 Hospital Management: Bowel: Senna Diet: Tube feeds Lines: PIV GI Prophylaxis: protonix DVT Prophylaxis: SCDs Dispo: Pending goals of care discussion with family Code status: DNR Patient seen and assessed with attending Dr. Rei Jackson, PGY-1 Attending Provider Attestation/Addendum Marlena Strickland, , attest that I was physically present for the tapia portions of the service and evaluated the patient with the resident and I reviewed and discussed the case with the resident and agree with the resident's findings and plans of care as documented above Patient seen and evaluated this AM. Patient appears to be at baseline and has been tracking with eyes. She has been ventilator dependent. Noted to have some inspiratory wheezing. Patient is in no acute distress. Pleural effusion noted to have malignant cells. However, per documentation, family is aware of cancer dx, but do not want to pursue in any further workup. Will have goals of care meeting tomorrow with family. Patient found to have anemia this AM, likely dilutional with baseline anemia. Eliqubobby has been on hold otherwise
--- NOTE | 2024-05-27 15:49 | PC.SS ---
SS informed by Dr. Eddy a [facility] meeting is needed to be scheduled for 05/28/24. SS contacted alternate decision maker son Xochitl Her [phone] to arrange [facility] meeting. Patient's son Xochitl stated he is available by phone 05/28/24 at 1400 for [facility].
[2024-05-27 16:25] LABS: Hematocrit 25.7 % (36.0-46.0)
[2024-05-27 16:27] LABS: Hemoglobin 8.4 g/dL (12.0-16.0)
[2024-05-27] MEDS: ATORVASTATIN CALCIUM 20 MG TABLET 40 MG GT (20:27)
[2024-05-28] VITALS (16 sets, daily range): BP systolic 112–135; BP diastolic 55–70; PULSE 62–72; RESP 20–28; TEMP 36.2–36.7; O2SAT 94–100; BMI 21.2
[2024-05-28] MEDS: ALBUTEROL/IPRATROPIUM (Duoneb) RT SOL 3 ML NEBU INH ×4 (00:04→18:16)
[2024-05-28] MEDS: INSULIN LISPRO (AdmeLOG) 1 UNIT/0.01 ML UNIT SC ×4 (05:29→23:46)
[2024-05-28 06:20] LABS: Magnesium 1.8 mg/dL (1.6-2.6); Phosphorous 2.7 mg/dL (2.4-5.1)
[2024-05-28 06:25] LABS: Basophils # (Auto) 0.1 Thou/mm3 (0.0-0.2); Basophils % (Auto) 0 % (0-2.5); Eosinophils # (Auto) 0.2 Thou/mm3 (0.0-0.5); Eosinophils % (Auto) 2 % (0-10); Hematocrit 26.4 % (36.0-46.0); Immature Granulocytes % (Auto) 0 % (0-0); Immature Granulocytes Auto 0.07 Thou/mm3 (0.00-0.00); Lymphocytes # (Auto) 1.2 Thou/mm3 (1.0-4.8); Lymphocytes % (Auto) 7 % (10-50); Mean Corpuscular Hemoglobin 28.4 pg (25.0-35.0); Mean Corpuscular Volume 86 fL (80-100); Monocytes # (Auto) 1.4 Thou/mm3 (0.0-0.8); Monocytes % (Auto) 9 % (0-12); Neutrophils # (Auto) 13.3 Thou/mm3 (1.8-7.7); Neutrophils % (Auto) 82 % (37-80); Nucleated Red Blood Cell % 0 /100 WBC (0); Platelet Count 305 Thou/mm3 (140-440); RDW Standard Deviation 51.5 fL (36.4-46.3); Red Blood Count 3.06 Miln/mm3 (4.00-5.20); White Blood Count 16.3 Thou/mm3 (3.6-11.0)
[2024-05-28 06:26] LABS: Hemoglobin 8.7 g/dL (12.0-16.0)
[2024-05-28 07:21] LABS: Alanine Aminotransferase 23 U/L (10-49); Albumin, Serum 3.1 gm/dL (3.4-4.8); Alkaline Phosphatase 84 U/L (46-116); Anion Gap 9 (7-16); Aspartate Amino Transferase 14 U/L (0-34); BUN/Creatinine Ratio 38 Ratio (12-20); Bilirubin,Total 0.4 mg/dL (0.3-1.2); Blood Urea Nitrogen 38 mg/dL (9-23); Calcium 8.3 mg/dL (8.3-10.6); Carbon Dioxide 28.9 mMol/L (20.0-31.0); Chloride 98 mMol/L (98-107); Estimated Creatinine Clearance 32.2 mL/min (>60); Globulin 3.2 gm/dL (2.3-3.5); Glucose 217 mg/dL (74-106); Osmolality,Calculated 287 (275-295); Potassium 4.1 mMol/L (3.4-5.1); Sodium 136 mMol/L (136-145); Total Protein 6.3 gm/dL (5.7-8.2); eGFR 56 See Note
[2024-05-28] MEDS: FUROSEMIDE INJ 10 MG/ML 4ML VIAL 40 MG IVP ×2 (08:18→22:18)
[2024-05-28] MEDS: PANTOPRAZOLE INJ 40 MG VIAL IVP (08:18)
[2024-05-28] MEDS: Magnesium Sulfate 4 GM Ivpb 4 GM/50 ML BAG IV (08:19)
[2024-05-28] MEDS: METOPROLOL TARTRATE 25 MG TABLET GT ×2 (08:19→22:19)
[2024-05-28] MEDS: AMOXICILLIN/POT CLAV 875 TABLET 1 TAB PO ×2 (08:20→22:18)
[2024-05-28] MEDS: AMIODARONE HCL 200 MG TABLET GT (08:20)
[2024-05-28] MEDS: SENNA TABLET 1 TAB GT (08:20)
[2024-05-28] MEDS: FLUCONAZOLE SUSP 40 MG/ML ML 200 MG GT (08:42)
[2024-05-28] MEDS: COLLAGENASE OINT 30 GM TUBE TOP ×2 (08:42→22:19)
--- NOTE | 2024-05-28 09:52 | PD.RESPRO ---
Documentation for date of: 05/28/24 Subjective Subjective Interval history: Patient is evaluated the bedside, nonverbal status, responds to name and is visually tracking subjective in the room, currently on mechanical ventilation via trach collar, status post Pleurx cath placement, preliminary diagnosis of metastatic neoplasm, unknown primary, from analysis of pleural fluid. Patient appears to be 1875 cc urine output, net -389 cc, patient's net hospital negative is about -6 L, sacral edema noted today recommend to continue continue furosemide 40 mg twice daily for now, will reassess in the a.m. regarding volume status and need for diuresis. Patient noted to be on SBT on mechanical ventilator. Noted moderate to severe MR on echocardiogram, EF was 55 to 60%. A-fib is currently rate controlled with amiodarone and metoprolol. Eliquis being held due to anemia. Exam Vital Signs Temp Pulse Resp BP Pulse Ox O2 Del Method O2 Flow Rate 97.9 F 67 22 H 118/62 99 Mechanical Ventilation 30 05/28/24 08:00 05/28/24 08:20 05/28/24 08:00 05/28/24 08:20 05/28/24 08:00 05/28/24 08:00 05/28/24 08:00 FiO2 30 05/28/24 08:00 Narrative Exam Physical Exam General: Awake, non-conversational (s/p tracheostomy) HEENT: Normocephalic, atraumatic, mucous membranes moist. Chronic tracheostomy. Heart: Regular rate and rhythm, no murmurs. Lungs: Clear to auscultation with no wheezing or crackles. Per percussion sound is normal resonance. Abdomen: Soft, nondistended, nontender, positive bowel sounds. ?No guarding or rebound tenderness PEG tube area normal.. Extremities: No edema. Skin: No rash or ecchymoses. Neurologic: Alert and oriented x0, does not follows commands Objective Labs 05/28/24 05:43 05/28/24 05:43 Labs: Laboratory Results - last 24 hr 05/27/24 05/27/24 05/28/24 08:12 15:42 05:43 WBC 16.3 H RBC 3.06 L Hgb 8.4 L D 8.7 L Hct 25.7 L 26.4 L MCV 86 MCH 28.4 MCHC 33.0 RDW Std Deviation 51.5 H Plt Count 305 Neut % (Auto) 82 H Lymph % (Auto) 7 L [place] % (Auto) 9 Eos % (Auto) 2 Baso % (Auto) 0 Neut # (Auto) 13.3 H Lymph # (Auto) 1.2 [place] # (Auto) 1.4 H Eos # (Auto) 0.2 Baso # (Auto) 0.1 Immature Gran # (Auto) 0.07 H Absolute Nucleated RBC 0.00 Immature Gran % 0 Nucleated RBC % 0 Sodium 136 Potassium 4.1 Chloride 98 Carbon Dioxide 28.9 Anion Gap 9 BUN 38 H Creatinine 1.0 Estim Creat Clear Calc 32.2 L eGFR 56 L BUN/Creatinine Ratio 38 H Glucose 217 H Calculated Osmolality 287 Calcium 8.3 Corrected Calcium 9.0 Phosphorus 2.7 Magnesium 1.8 Total Bilirubin 0.4 AST 14 ALT 23 Alkaline Phosphatase 84 Total Protein 6.3 Albumin 3.1 L Globulin 3.2 Albumin/Globulin Ratio 1.0 L Blood Type A Positive Antibody Screen NEGATIVE Crossmatch See Detail Blood Bank Wristband ID Yes ABG Interpretation ABG results: 05/20/24 05/20/24 07:00 11:00 ABG pH 7.40 7.43 ABG pCO2 45 41 ABG pO2 44 L* 53 L* ABG HCO3 28 H 27 H ABG O2 Saturation 94 100 H ABG Base Excess 3 3 Quality Measures Quality Measures VTE prophylaxis Advance care planning discussed with:: patient Assessment & Plan Assessment Current Active Medications: Generic Name Dose Route Start Last Admin Trade Name Freq PRN Reason Stop Dose Admin Acetaminophen 650 mg 05/20/24 09:38 05/21/24 16:34 Acetaminophen Viviana 325 Mg/10 Ml Udc GT 06/18/24 14:45 650 mg Q6HR PRN Administration Pain(1-3) Or Fever > 100.3 Albuterol/Ipratropium 3 ml 05/19/24 19:00 05/28/24 06:23 Albuterol/Ipratropium (Duoneb) Rt Viviana 3 Ml Nebu INH 06/18/24 18:59 3 ml Q6HRRT AMARJIT Administration Amiodarone HCl 200 mg 05/20/24 09:00 05/28/24 08:20 Amiodarone Hcl 200 Mg Tablet GT 06/19/24 08:59 200 mg DAILY AMARJIT Administration Amoxicillin/Clavulanate Potassium 1 tab 05/26/24 21:00 05/28/24 08:20 Amoxicillin/Pot Clav 875 Tablet PO 06/02/24 20:59 1 tab BID AMARJIT Administration Atorvastatin Calcium 40 mg 05/19/24 21:00 05/27/24 20:27 Atorvastatin Calcium 20 Mg Tablet GT 06/18/24 20:59 40 mg HS AMARJIT Administration Collagenase 0 gm 05/20/24 09:00 05/28/24 08:42 Collagenase Oint 30 Gm Tube TOP 06/19/24 08:59 1 applicatio BID AMARJIT Administration Dextrose 50 ml 05/19/24 14:50 Dextrose 50%-Water Inj 50 Ml Syringe IV 06/18/24 14:49 Q15MIN PRN BG <50 OR BG <70 & pt unresponsive Fluconazole 200 mg 05/24/24 10:15 05/28/24 08:42 Fluconazole Susp 40 Mg/Ml Ml GT 05/31/24 10:14 200 mg QDAY AMARJIT Administration Furosemide 40 mg 05/25/24 09:00 05/28/24 08:18 Furosemide Inj 10 Mg/Ml 4ml Vial IVP 06/24/24 08:59 40 mg BID AMARJIT Administration Glucagon 1 mg 05/19/24 14:50 Glucagon Inj 1 Mg Vial IM Q15MIN PRN BG <70, and no IV access Magnesium Sulfate 4 gm in 50 mls @ 12.5 mls/hr 05/28/24 07:34 05/28/24 08:19 Magnesium Sulfate Ivpb IV 05/28/24 11:33 12.5 mls/hr X1 ONE Administration Insulin Glargine 5 unit 05/28/24 21:00 Insulin Glargine (Lantus) 5 Unit/0.05 Ml (Per 5 Units) SC 06/27/24 20:59 HS AMARJIT Insulin Human Lispro 0 unit 05/19/24 18:00 05/28/24 05:29 Insulin Lispro (Admelog) 1 Unit/0.01 Ml Unit SC 06/18/24 17:59 3 unit Q6HR AMARJIT Administration Protocol Lactulose 10 gm 05/19/24 16:14 Lactulose Syrup 20 Gm/30 Ml Udc GT 06/19/24 08:59 DAILY PRN Constipation Protocol Metoprolol Tartrate 25 mg 05/19/24 21:00 05/28/24 08:19 Metoprolol Tartrate 25 Mg Tablet GT 06/18/24 20:59 25 mg BID AMARJIT Administration Ondansetron HCl 4 mg 05/19/24 14:24 Ondansetron Inj 2 Mg/Ml Inj 2 Ml IV 06/18/24 14:23 Q6H PRN NAUSEA OR VOMITING Protocol Pantoprazole Sodium 40 mg 05/19/24 14:30 05/28/24 08:18 Pantoprazole Inj 40 Mg Vial IVP 06/18/24 14:29 40 mg QDAY AMARJIT Administration Sennosides 1 tab 05/20/24 09:00 05/28/24 08:20 Senna Tablet GT 06/19/24 08:59 1 tab QDAY AMARJIT Administration Protocol Plan Ms. Guaman is an 83 year female with past medical history significant for Hypertension, non-insulin dependent type 2 diabetes, seizure disorder, Hx of a-fib and hx of multiple CVA's. Pt is chronically non verbal since the CVA's and has been tracheostomy with PEG tube placement unsure of when as Pt first arrived at [facility] subacute facility in March 2024. Pt was brought back to the ED on 05/19/24 for recurrent fevers and reaccumulation of large left pleural effusions. #Acute hypoxic respiratory failure in the setting of #Sepsis 2/2 #Bilateral pneumonia #Pleural effusions s/p thoracentesis # Pleural effusions -malignant cells #Status post Pleurx catheter placement -Pt presented from subacute due to recurrent fevers -RSV, influenza A & B and COVID negative -SIRS 4/4 met: leukocytosis, tachycardia, tachyapnea and fever -CXR- Semo-[id number]-[id number] heart failure, Moderate bilateral pleural effusions, Prominent vascular congestion with perihilar basilar edema. Extensive pneumonia and/or edema throughout the lung alfaro with large layered left pleural effusion -left thoracenthesis done on 05/20 drained 1300 cc -Will monitor consistent with exudative effusions -pleural fluid cytology is suspicious for malignant cells -Pt is on antibiotics and Duonebs -Pleurx catheter placed 05/25/2024 #Acute exacerbation of CHF- improved #New onset of diastolic CHF- HFpEF with EF 55-60% -although pt does appear to be fluid overloaded on physical examination with 1+ dependant edema in the upper thigh and unable to provide history of symptoms -CXR- evident of vascular congestion with pleural effusions -BNP 2371 ECHO done on 05/21/24 LV appears normal with EF 55-60%. Diastolic Dysfunction II is present. RV has mildly elevated RVSP of 45 mmHg MV has mod-severe MR. mild MAC AOV looks sclerotic. TV has mild to moderate TR. Large pleural Effusion present. 05/28- -Pt is net negative -389 cc -Net hospitalization intake 9 L, output 15 L, net negative for hospitalization 6 L -Pt is on IV Lasix 40 twice daily, continue -Strict input output, daily weights and low-sodium tube feeds #Primary Hypertension -Pt's home amlodipine is not resumed. Pt BP is well controlled #Atrial fibrillation, by history -Pt has history of A-fib which is rate and rhythm controlled with Amiodarone and metoprolol -EKG shows sinus rhythm -CHADsVAS score- 7 -HAS-BLED score 3 -Pt is rate and rhythm controlled with amiodarone and metoprolol and for anticoagulation, pt was on eliquis at home, not continued inpateint, likely due to acute anemia #Acute Anemia #Chronic disease anemia -Hemoglobin is 7.2, hematocrit 22, MCV 88 -Iron panel today showed iron 26, TIBC 156, iron saturation 16%, unsaturated iron 130, ferritin 634 findings are aligned with inflammatory anemia likely in the setting of sepsis -Transfuse if hemoglobin <7 -Monitor daily CBC #Insulin dependent type 2 diabetes -A1c 6.4 on 04/22/24 -Pt is on insulin sliding scale #Sacral ulcer stage II/III -Pt has deep sacral ulcer -Status post excisional debridement of sacral decubitus ulcer done on 05/23/24 #UTI -Urine culture from 05/22/2024 grew yeast -Patient is started on fluconazole and ID is following #History of seizure disorder -Pt is currently not on antiepileptic meds #Hx of CVA #Chronic constipation #Chronic PEG tube -Pt has history of multiple CVA with residual deficit and non verbal -Pt is s/p tracheostomy and PEG tube placement -Pt is on statin -Patient on p.o. senna Assessment and plan discussed with my attending physician Dr. Ismael Fitzgerald PGY1 Internal medicine Attending Provider Attestation/Addendum I have personally seen and examined the patient separately on the above date of service and discussed the plan of care with the resident. I reviewed the resident Dr. Carl Fitzgerald consultation progress note and agree with the resident findings and plan in the note above and have also edited the documentation to reflect my findings and plan. Alfa Guevara M.D. Interventional Cardiology
--- NOTE | 2024-05-28 11:21 | PC.SS ---
Follow up note: Goals of care meeting today at 2pm with patient's son.
--- NOTE | 2024-05-28 13:23 | PC.RT ---
patient placed on blow by per MD order at 9:33 10L/35%
--- NOTE | 2024-05-28 14:40 | ESPR_ITS ---
<Statement entered by Angelina Moreno MD - 05/28/24 17:24> Patient was seen and examined by me personally. I have reviewed the below documentation by the team resident and agree with its findings with any exceptions as below. Discharge plan was discussed with the attending, Dr. Arzola. Patient arousable to tactile stimulus, awake and able to track with eyes. She was transitioned from the vent to blow-by this morning. Goals of care discussion was held with son and decision-maker, Kristyverenice Oh at [address] Jackson. Shared results of the pleural fluid study findings, which include possible malignancy. Per son he does not want to make any changes to the care today and will discuss with the family. Another discussion will be scheduled over the phone around the same time tomorrow to follow up on decision. Angelina Moreno, PGY-2 Documentation for date of: 05/28/24 Subjective Subjective Interval history: 05/28/2024: No acute overnight events to report. Patient seen and examined in hospital bed initially on the same ventilator settings (FiO2 30, PEEP of 7); moreover, past RT to attempt blow-by which she is currently on. Patient remains at her current baseline with no acute changes noted. Goals of care discussion had with the patient's son, decision maker regarding her poor prognosis. Patient's son made aware regarding malignant cells found on pleural effusion. Patient's son is requesting to speak with the rest of his family and has agreed to have another goals of care discussion on 05/29 at roughly 2 PM. Will continue to monitor for any acute changes. Exam Vital Signs Temp Pulse Resp BP Pulse Ox O2 Del Method O2 Flow Rate 97.6 F 68 21 H 112/70 94 L Mechanical Ventilation 10 05/28/24 12:00 05/28/24 13:22 05/28/24 13:22 05/28/24 12:00 05/28/24 13:22 05/28/24 12:00 05/28/24 13:22 FiO2 30 05/28/24 13:22 Narrative Exam Physical Exam General: Awake, non-conversational (s/p strokes and tracheostomy) HEENT: Normocephalic, atraumatic, mucous membranes moist. Chronic tracheostomy. Heart: Regular rate and rhythm, no murmurs. Lungs: Clear to auscultation with no wheezing or crackles. Pleurx catheter site clean Abdomen: Soft, nondistended, nontender, positive bowel sounds. ?No guarding or rebound tenderness PEG tube area normal.. Extremities: No edema. Skin: No rash or ecchymoses. Neurologic: Alert and oriented x0, does not follows commands Objective Labs 05/29/24 05:24 05/29/24 05:24 Labs: Laboratory Results - last 24 hr 05/27/24 05/28/24 15:42 05:43 WBC 16.3 H RBC 3.06 L Hgb 8.4 L D 8.7 L Hct 25.7 L 26.4 L MCV 86 MCH 28.4 MCHC 33.0 RDW Std Deviation 51.5 H Plt Count 305 Neut % (Auto) 82 H Lymph % (Auto) 7 L [place] % (Auto) 9 Eos % (Auto) 2 Baso % (Auto) 0 Neut # (Auto) 13.3 H Lymph # (Auto) 1.2 [place] # (Auto) 1.4 H Eos # (Auto) 0.2 Baso # (Auto) 0.1 Immature Gran # (Auto) 0.07 H Absolute Nucleated RBC 0.00 Immature Gran % 0 Nucleated RBC % 0 Sodium 136 Potassium 4.1 Chloride 98 Carbon Dioxide 28.9 Anion Gap 9 BUN 38 H Creatinine 1.0 Estim Creat Clear Calc 32.2 L eGFR 56 L BUN/Creatinine Ratio 38 H Glucose 217 H Calculated Osmolality 287 Calcium 8.3 Corrected Calcium 9.0 Phosphorus 2.7 Magnesium 1.8 Total Bilirubin 0.4 AST 14 ALT 23 Alkaline Phosphatase 84 Total Protein 6.3 Albumin 3.1 L Globulin 3.2 Albumin/Globulin Ratio 1.0 L ABG Interpretation ABG results: 05/20/24 05/20/24 07:00 11:00 ABG pH 7.40 7.43 ABG pCO2 45 41 ABG pO2 44 L* 53 L* ABG HCO3 28 H 27 H ABG O2 Saturation 94 100 H ABG Base Excess 3 3 Quality Measures Quality Measures VTE prophylaxis Advance care planning discussed with:: child Assessment & Plan Assessment Current Active Medications: Generic Name Dose Route Start Last Admin Trade Name Freq PRN Reason Stop Dose Admin Acetaminophen 650 mg 05/20/24 09:38 05/21/24 16:34 Acetaminophen Viviana 325 Mg/10 Ml Udc GT 06/18/24 14:45 650 mg Q6HR PRN Administration Pain(1-3) Or Fever > 100.3 Albuterol/Ipratropium 3 ml 05/19/24 19:00 05/28/24 13:22 Albuterol/Ipratropium (Duoneb) Rt Viviana 3 Ml Nebu INH 06/18/24 18:59 3 ml Q6HRRT AMARJIT Administration Amiodarone HCl 200 mg 05/20/24 09:00 05/28/24 08:20 Amiodarone Hcl 200 Mg Tablet GT 06/19/24 08:59 200 mg DAILY AMARJIT Administration Amoxicillin/Clavulanate Potassium 1 tab 05/26/24 21:00 05/28/24 08:20 Amoxicillin/Pot Clav 875 Tablet PO 06/02/24 20:59 1 tab BID AMARJIT Administration Atorvastatin Calcium 40 mg 05/19/24 21:00 05/27/24 20:27 Atorvastatin Calcium 20 Mg Tablet GT 06/18/24 20:59 40 mg HS AMARJIT Administration Collagenase 0 gm 05/20/24 09:00 05/28/24 08:42 Collagenase Oint 30 Gm Tube TOP 06/19/24 08:59 1 applicatio BID AMARJIT Administration Dextrose 50 ml 05/19/24 14:50 Dextrose 50%-Water Inj 50 Ml Syringe IV 06/18/24 14:49 Q15MIN PRN BG <50 OR BG <70 & pt unresponsive Fluconazole 200 mg 05/24/24 10:15 05/28/24 08:42 Fluconazole Susp 40 Mg/Ml Ml GT 05/31/24 10:14 200 mg QDAY AMARJIT Administration Furosemide 40 mg 05/25/24 09:00 05/28/24 08:18 Furosemide Inj 10 Mg/Ml 4ml Vial IVP 06/24/24 08:59 40 mg BID AMARJIT Administration Glucagon 1 mg 05/19/24 14:50 Glucagon Inj 1 Mg Vial IM Q15MIN PRN BG <70, and no IV access Insulin Glargine 5 unit 05/28/24 21:00 Insulin Glargine (Lantus) 5 Unit/0.05 Ml (Per 5 Units) SC 06/27/24 20:59 HS AMARJIT Insulin Human Lispro 0 unit 05/19/24 18:00 05/28/24 11:54 Insulin Lispro (Admelog) 1 Unit/0.01 Ml Unit SC 06/18/24 17:59 3 unit Q6HR AMARJIT Administration Protocol Lactulose 10 gm 05/19/24 16:14 Lactulose Syrup 20 Gm/30 Ml Udc GT 06/19/24 08:59 DAILY PRN Constipation Protocol Metoprolol Tartrate 25 mg 05/19/24 21:00 05/28/24 08:19 Metoprolol Tartrate 25 Mg Tablet GT 06/18/24 20:59 25 mg BID AMARJIT Administration Ondansetron HCl 4 mg 05/19/24 14:24 Ondansetron Inj 2 Mg/Ml Inj 2 Ml IV 06/18/24 14:23 Q6H PRN NAUSEA OR VOMITING Protocol Pantoprazole Sodium 40 mg 05/19/24 14:30 05/28/24 08:18 Pantoprazole Inj 40 Mg Vial IVP 06/18/24 14:29 40 mg QDAY AMARJIT Administration Sennosides 1 tab 05/20/24 09:00 05/28/24 08:20 Senna Tablet GT 06/19/24 08:59 1 tab QDAY AMARJIT Administration Protocol Plan Patient is an 83-year-old [facility] female, 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 Patient will be admitted for acute respiratory failure with hypoxia secondary to large left-sided pleural effusion in the setting of community-acquired pneumonia. #Acute on chronic respiratory failure with hypoxia, resolved #Community-acquired versus hospital-acquired versus aspiration pneumonia #Malignant, large Left sided Pleural effusion s/p diagnostic/therapeutic thoracentesis 05/20/2024 Medical history is unclear. Patient was recently accepted at subacute unit. She is chronically pegged and trached. Apparently she has been spiking fevers of 101 over the last few days. Met 4/4 SIRS criteria with fever, tachypnea, tachycardia and leukocytosis. Chest x-ray significant for extensive pneumonia and atelectasis left lung. Repeat chest x-ray significant for extensive pneumonia/edema throughout all lung alfaro with large layering left pleural effusion. Chest CT significant for thyromegaly with multiple thyroid nodules, large bilateral pleural effusions, atelectasis and pneumonia left lung base. Mild pneumonia right lung base RSV negative MRSA nares negative [05/19] sputum culture grew Staphylococcus aureus. With beta-lactamase activity against ampicillin and penicillin. [05/19] Blood culture negative x 48 hours preliminary [05/22] blood culture negative x 48 hours preliminary PSI/PORT : 163 points. Risk class V. Hospitalization recommended based on risk Patient had diagnostic/therapeutic left thoracentesis on 05/20/2024. Patient had Pleurx catheter installed 05/25/2024. Drained 1300 cc of pleural fluid. Fluid analysis revealed a transudative effusion. Cytology report from 05/19/2024 findings include: Suspicious for malignancy. Malignant cells exist as individual cells with high N; C ratios [in the background of the PI-RADS signet-ring cells]. Differential diagnosis include primary tumor of lung, breast. Colon Unlikely. May also represent a combination of metastases including urogenital tract primary, reactive mesothelial proliferation or mesothelioma Received Zosyn and vancomycin IV for 2 days from [05/19 - 05/21] Pleural fluid culture no growth to date Plan: Goals of care discussion discussed with son on 05/28 will repeat phone call on 05/29 once family has made decision Weaned from ventilator to blow-by as tolerated Continue DuoNebs Q6 hourly Augmentin 875 twice daily [05/26?currently] #Newly diagnosed chronic diastolic congestive heart failure with preserved ejection fraction [EF 55 to 60%] Patient has scattered crackles auscultation bilaterally worse on right CXR shows bilateral pleural effusion worse on the left and consolidation of the right around cardiac silhouette. Trans-thoracic echocardiogram completed on 05/21/2024: LV appears normal with EF 55-60%. Diastolic Dysfunction II is present. RV has mildly elevated RVSP of 45 mmHg MV has mod-severe MR. mild MAC. AOV looks sclerotic From telemetry review patient and sinus rhythm overnight with heart rate between 70s?80 80s. K 4.5, Mg 2.3. Will Keep K>4 and Mg >2 at all times to avoid arrhythmias Patient had fluid balance of - 1500cc in past 24 hours. Plan: Strict input output charting 2G sodium restricted diet 1500 cc/day fluid restriction Lasix 40 Mg IV twice daily Cardiology, Dr. Guevara consulted for newly diagnosed diastolic heart failure. Appreciate recommendations #Chronic normocytic anemia #Chronic disease anemia On admission Hb 9.2. From chart review manage Hb between 8?9 Currently Hb 7.2 Iron 26, TIBC 156, iron saturation 16%, ferritin 634. CRP 6.3, B12 758, folate 16.84. Mixed picture of iron deficiency and anemia of chronic disease. Hgb stable Plan: Transfuse if hemoglobin less than 7.0 #Sacral ulcer stage II/III Patient has sacral ulcer with minimal slough and some purulent drainage Debridement by general surgeon, Dr. Garrett on 05/23/2024 Plan: Wound care as per wound care nurse General Surgery, Dr. Garrett consulted. Appreciate recommendationss #Primary Hypertension #A-fib, likely paroxysmal #NSTEMI type 1 vs type 2 - resolving #Hyperlipidemia HASBLED 4 indicates high risk for major bleed. [id number] indicates 17% stroke/TIA/embolism. Troponin 0.077 ---> 0.238 EKG significant for sinus tachycardia, rate 107. Q waves in septal leads. No acute ST changes. Increasing troponin likely due to stress from diaphoresis and hypoxia. Plan: Continue telemetry monitoring Continue home medications amiodarone 200 Mg GT daily for rate control and metoprolol tartrate 25 Mg GT twice daily Eliquis continues to be on hold due to anemia #Insulin-dependent diabetes mellitus type 2 A1c [6.4%] Home medication insulin sliding scale Plan: Insulin sliding scale #Yeast urinary infection Urine culture completed on 05/22/2024 grew yeast. ID to follow. Plan: Fluconazole 200 Mg p.o. daily for 2 weeks. #Hx of seizure disorder Not on home ANTIEPILEPTICS. No signs of seizures. Plan: Seizure precaution #Chronic constipation Likely secondary to CVA. Patient on chronic laxatives Plan: Continue Lactulose 10 mg GT prn Continue senna daily #Chronic PEG tube #Hx of CVA #Goals of care History of large cerebral vessel occlusion. Chronically trached and pegged. Opens eyes spontaneously. Does not follow command. PEG tube appears intact without signs of infection. 05/25: Son does not wish for aggressive measures at this time but is okay with placement of Pleurx catheter for comfort. Plan: Tube feeds Registered dietitian referral Plan on having goals of care discussion with family on 05/29/2024 Hospital Management: Bowel: Senna Diet: Tube feeds Lines: PIV GI Prophylaxis: protonix DVT Prophylaxis: SCDs Dispo: Pending goals of care discussion with family Code status: DNR Patient seen and assessed with attending Dr. Arzola and senior resident Dr. Josh Jackson, PGY-1 Attending Provider Attestation/Addendum I have examined the patient, reviewed labs and imaging findings, discussed the case with the resident(s), and reviewed entered orders. I agree with the plan of care as outlined in this note, with these additional summaries/recommendations: Patient seen at bedside. No acute overnight events. Pending goals of care with patient's medical decision maker this afternoon. Prognosis is guarded. Pleurx catheter site appears clean with no discharge. Pleurx catheter placed for malignant pleural effusion. Primary source remains unknown although family has declined further invasive workup or treatment with chemotherapy/radiation. We will continue antibiotics for superimposed bacterial pneumonia. We will continue aggressive diuresis for heart failure with preserved ejection fraction. Patient has underlying anemia of chronic disease and required blood transfusion yesterday with appropriate hemoglobin of 8.7 today. Continue wound care for sacral decubitus ulcer. Continue amiodarone and metoprolol for history of paroxysmal A-fib. Continue insulin sliding scale for diabetes mellitus type 2. Continue home antiepileptics and no seizure activity noted while hospitalized. Continue tube feeds and free water flushes via PEG. Overall prognosis is guarded and we will follow-up with family today. Dr. Ness MD
[2024-05-28] MEDS: ATORVASTATIN CALCIUM 20 MG TABLET 40 MG GT (22:18)
[2024-05-28] MEDS: INSULIN GLARGINE (Lantus) 5 UNIT/0.05 ML (PER 5 UNITS) SC (22:21)
[2024-05-29] VITALS (16 sets, daily range): BP systolic 115–144; BP diastolic 51–79; PULSE 56–676; RESP 20–29; TEMP 36.2–36.9; O2SAT 92–100; BMI 21.2
[2024-05-29] MEDS: ALBUTEROL/IPRATROPIUM (Duoneb) RT SOL 3 ML NEBU INH ×4 (00:10→17:52)
[2024-05-29] MEDS: INSULIN LISPRO (AdmeLOG) 1 UNIT/0.01 ML UNIT SC ×3 (05:28→17:46)
[2024-05-29 06:26] LABS: Magnesium 2.2 mg/dL (1.6-2.6); Phosphorous 2.7 mg/dL (2.4-5.1)
--- NOTE | 2024-05-29 07:51 | PD.RESPRO ---
Documentation for date of: 05/29/24 Subjective Subjective Interval history: Patient seen and examined at bedside, had 2.8 L urine output overnight, patient is on blow-by oxygen delivery currently, SpO2 93, patient response to name, tracks with eyes. Overall patient is net -7.7 L for this hospitalization, significant improvement of dependent edema noted, still has some edema. Primary team to have goals of care discussion with family today. Exam Vital Signs Temp Pulse Resp BP Pulse Ox O2 Del Method O2 Flow Rate 98.4 F 69 24 H 139/65 H 98 Blow-by 8 05/29/24 03:59 05/29/24 06:54 05/29/24 06:54 05/29/24 03:59 05/29/24 06:54 05/29/24 03:59 05/29/24 06:54 FiO2 30 05/29/24 06:54 Narrative Exam Physical Exam General: Awake, non-conversational (s/p tracheostomy) HEENT: Normocephalic, atraumatic, mucous membranes moist. Chronic tracheostomy. Heart: Regular rate and rhythm, no murmurs. Lungs: Clear to auscultation with no wheezing or crackles. Pleurx catheter noted. Abdomen: Soft, nondistended, nontender, positive bowel sounds. ?No guarding or rebound tenderness PEG tube area normal.. Extremities: No edema. Skin: No rash or ecchymoses. Neurologic: Alert and oriented x0, does not follows commands Objective Labs 05/30/24 05:20 05/30/24 05:20 Labs: Laboratory Results - last 24 hr 05/29/24 05:24 Phosphorus 2.7 Magnesium 2.2 ABG Interpretation ABG results: 05/20/24 05/20/24 07:00 11:00 ABG pH 7.40 7.43 ABG pCO2 45 41 ABG pO2 44 L* 53 L* ABG HCO3 28 H 27 H ABG O2 Saturation 94 100 H ABG Base Excess 3 3 Quality Measures Quality Measures VTE prophylaxis Advance care planning discussed with:: patient Assessment & Plan Assessment Current Active Medications: Generic Name Dose Route Start Last Admin Trade Name Freq PRN Reason Stop Dose Admin Acetaminophen 650 mg 05/20/24 09:38 05/21/24 16:34 Acetaminophen Viviana 325 Mg/10 Ml Udc GT 06/18/24 14:45 650 mg Q6HR PRN Administration Pain(1-3) Or Fever > 100.3 Albuterol/Ipratropium 3 ml 05/19/24 19:00 05/29/24 06:53 Albuterol/Ipratropium (Duoneb) Rt Viviana 3 Ml Nebu INH 06/18/24 18:59 3 ml Q6HRRT MAARJIT Administration Amiodarone HCl 200 mg 05/20/24 09:00 05/28/24 08:20 Amiodarone Hcl 200 Mg Tablet GT 06/19/24 08:59 200 mg DAILY AMARJIT Administration Amoxicillin/Clavulanate Potassium 1 tab 05/26/24 21:00 05/28/24 22:18 Amoxicillin/Pot Clav 875 Tablet PO 06/02/24 20:59 1 tab BID AMARJIT Administration Atorvastatin Calcium 40 mg 05/19/24 21:00 05/28/24 22:18 Atorvastatin Calcium 20 Mg Tablet GT 06/18/24 20:59 40 mg HS AMARJIT Administration Collagenase 0 gm 05/20/24 09:00 05/28/24 22:19 Collagenase Oint 30 Gm Tube TOP 06/19/24 08:59 1 applicatio BID AMARJIT Administration Dextrose 50 ml 05/19/24 14:50 Dextrose 50%-Water Inj 50 Ml Syringe IV 06/18/24 14:49 Q15MIN PRN BG <50 OR BG <70 & pt unresponsive Fluconazole 200 mg 05/24/24 10:15 05/28/24 08:42 Fluconazole Susp 40 Mg/Ml Ml GT 05/31/24 10:14 200 mg QDAY AMARJIT Administration Furosemide 40 mg 05/25/24 09:00 05/28/24 22:18 Furosemide Inj 10 Mg/Ml 4ml Vial IVP 06/24/24 08:59 40 mg BID AMARJIT Administration Glucagon 1 mg 05/19/24 14:50 Glucagon Inj 1 Mg Vial IM Q15MIN PRN BG <70, and no IV access Insulin Glargine 5 unit 05/28/24 21:00 05/28/24 22:21 Insulin Glargine (Lantus) 5 Unit/0.05 Ml (Per 5 Units) SC 06/27/24 20:59 5 unit HS AMARJIT Administration Insulin Human Lispro 0 unit 05/19/24 18:00 05/29/24 05:28 Insulin Lispro (Admelog) 1 Unit/0.01 Ml Unit SC 06/18/24 17:59 2 unit Q6HR AMARJIT Administration Protocol Lactulose 10 gm 05/19/24 16:14 Lactulose Syrup 20 Gm/30 Ml Udc GT 06/19/24 08:59 DAILY PRN Constipation Protocol Metoprolol Tartrate 25 mg 05/19/24 21:00 05/28/24 22:19 Metoprolol Tartrate 25 Mg Tablet GT 06/18/24 20:59 25 mg BID AMARJIT Administration Ondansetron HCl 4 mg 05/19/24 14:24 Ondansetron Inj 2 Mg/Ml Inj 2 Ml IV 06/18/24 14:23 Q6H PRN NAUSEA OR VOMITING Protocol Pantoprazole Sodium 40 mg 05/19/24 14:30 05/28/24 08:18 Pantoprazole Inj 40 Mg Vial IVP 06/18/24 14:29 40 mg QDAY AMARJIT Administration Sennosides 1 tab 05/20/24 09:00 05/28/24 08:20 Senna Tablet GT 06/19/24 08:59 1 tab QDAY AMARJIT Administration Protocol Plan Ms. Guaman is an 83 year female with past medical history significant for Hypertension, non-insulin dependent type 2 diabetes, seizure disorder, Hx of a-fib and hx of multiple CVA's. Pt is chronically non verbal since the CVA's and has been tracheostomy with PEG tube placement unsure of when as Pt first arrived at [facility] subacute facility in March 2024. Pt was brought back to the ED on 05/19/24 for recurrent fevers and reaccumulation of large left pleural effusions. #Acute hypoxic respiratory failure in the setting of #Sepsis 2/2 #Bilateral pneumonia #Pleural effusions s/p thoracentesis # Pleural effusions -malignant cells #Status post Pleurx catheter placement -Pt presented from subacute due to recurrent fevers -RSV, influenza A & B and COVID negative -SIRS 4/4 met: leukocytosis, tachycardia, tachyapnea and fever -CXR- [id number] heart failure, Moderate bilateral pleural effusions, Prominent vascular congestion with perihilar basilar edema. Extensive pneumonia and/or edema throughout the lung alfaro with large layered left pleural effusion -left thoracenthesis done on 05/20 drained 1300 cc -Will monitor consistent with exudative effusions -pleural fluid cytology is suspicious for malignant cells -Pt is on antibiotics and Duonebs -Pleurx catheter placed 05/25/2024 #Acute exacerbation of CHF- improved #New onset of diastolic CHF- HFpEF with EF 55-60% -although pt does appear to be fluid overloaded on physical examination with 1+ dependant edema in the upper thigh and unable to provide history of symptoms -CXR- evident of vascular congestion with pleural effusions -BNP 2371 ECHO done on 05/21/24 LV appears normal with EF 55-60%. Diastolic Dysfunction II is present. RV has mildly elevated RVSP of 45 mmHg MV has mod-severe MR. mild MAC AOV looks sclerotic. TV has mild to moderate TR. Large pleural Effusion present. 05/28- -Pt is net negative -1.7 L -Net negative for hospitalization -7.7 L -Pt is on IV Lasix 40 twice daily, continue -Strict input output, daily weights and low-sodium tube feeds #Primary Hypertension -Pt's home amlodipine is not resumed. Pt BP is well controlled #Atrial fibrillation, by history -Pt has history of A-fib which is rate and rhythm controlled with Amiodarone and metoprolol -EKG shows sinus rhythm -CHADsVAS score- 7 -HAS-BLED score 3 -Pt is rate and rhythm controlled with amiodarone and metoprolol and for anticoagulation, pt was on eliquis at home, not continued inpateint, likely due to acute anemia #Acute Anemia #Chronic disease anemia -Hemoglobin is 7.2, hematocrit 22, MCV 88 -Iron panel today showed iron 26, TIBC 156, iron saturation 16%, unsaturated iron 130, ferritin 634 findings are aligned with inflammatory anemia likely in the setting of sepsis -Transfuse if hemoglobin <7 -Monitor daily CBC #Insulin dependent type 2 diabetes -A1c 6.4 on 04/22/24 -Pt is on insulin sliding scale #Sacral ulcer stage II/III -Pt has deep sacral ulcer -Status post excisional debridement of sacral decubitus ulcer done on 05/23/24 #UTI -Urine culture from 05/22/2024 grew yeast -Patient is started on fluconazole and ID is following #History of seizure disorder -Pt is currently not on antiepileptic meds #Hx of CVA #Chronic constipation #Chronic PEG tube -Pt has history of multiple CVA with residual deficit and non verbal -Pt is s/p tracheostomy and PEG tube placement -Pt is on statin -Patient on p.o. senna Assessment and plan discussed with my attending physician Dr. Ismael Fitzgerald PGY1 Internal medicine Attending Provider Attestation/Addendum I have personally seen and examined the patient separately on the above date of service and discussed the plan of care with the resident. I reviewed the resident Dr. Carl Fitzgerald consultation progress note and agree with the resident findings and plan in the note above and have also edited the documentation to reflect my findings and plan. Alfa Guevara M.D. Interventional Cardiology
[2024-05-29 08:00] LABS: Basophils % (Auto) 0 % (0-2.5); Eosinophils # (Auto) 0.2 Thou/mm3 (0.0-0.5); Eosinophils % (Auto) 1 % (0-10); Hematocrit 27.4 % (36.0-46.0); Immature Granulocytes % (Auto) 1 % (0-0); Immature Granulocytes Auto 0.08 Thou/mm3 (0.00-0.00); Lymphocytes # (Auto) 1.1 Thou/mm3 (1.0-4.8); Lymphocytes % (Auto) 7 % (10-50); Mean Corpuscular HGB Conc 32.8 g/dl (31.0-37.0); Mean Corpuscular Hemoglobin 28.1 pg (25.0-35.0); Mean Corpuscular Volume 86 fL (80-100); Monocytes # (Auto) 1.3 Thou/mm3 (0.0-0.8); Monocytes % (Auto) 8 % (0-12); Neutrophils # (Auto) 13.8 Thou/mm3 (1.8-7.7); Neutrophils % (Auto) 84 % (37-80); Nucleated Red Blood Cell % 0 /100 WBC (0); Platelet Count 353 Thou/mm3 (140-440); RDW Standard Deviation 49.6 fL (36.4-46.3); White Blood Count 16.5 Thou/mm3 (3.6-11.0)
[2024-05-29 08:13] LABS: Alanine Aminotransferase 21 U/L (10-49); Albumin, Serum 2.9 gm/dL (3.4-4.8); Alkaline Phosphatase 82 U/L (46-116); Anion Gap 8 (7-16); Aspartate Amino Transferase 17 U/L (0-34); BUN/Creatinine Ratio 42 Ratio (12-20); Bilirubin,Total 0.4 mg/dL (0.3-1.2); Blood Urea Nitrogen 38 mg/dL (9-23); Calcium (Corrected) 8.9 mg/dL (8.5-10.1); Carbon Dioxide 30.8 mMol/L (20.0-31.0); Chloride 96 mMol/L (98-107); Creatinine (Component) 0.9 mg/dL (0.6-1.3); Estimated Creatinine Clearance 35.7 mL/min (>60); Globulin 2.8 gm/dL (2.3-3.5); Glucose 167 mg/dL (74-106); Osmolality,Calculated 283 (275-295); Potassium 4.2 mMol/L (3.4-5.1); Sodium 135 mMol/L (136-145); Total Protein 5.7 gm/dL (5.7-8.2); eGFR > 60 See Note
[2024-05-29] MEDS: PANTOPRAZOLE INJ 40 MG VIAL IVP (09:19)
[2024-05-29] MEDS: COLLAGENASE OINT 30 GM TUBE TOP ×2 (09:20→20:23)
[2024-05-29] MEDS: AMIODARONE HCL 200 MG TABLET GT (09:20)
[2024-05-29] MEDS: FUROSEMIDE INJ 10 MG/ML 4ML VIAL 40 MG IVP ×2 (09:25→20:22)
[2024-05-29] MEDS: AMOXICILLIN/POT CLAV 875 TABLET 1 TAB PO ×2 (09:25→20:25)
[2024-05-29] MEDS: METOPROLOL TARTRATE 25 MG TABLET GT ×2 (09:25→20:23)
[2024-05-29] MEDS: SENNA TABLET 1 TAB GT (09:25)
[2024-05-29] MEDS: FLUCONAZOLE SUSP 40 MG/ML ML 200 MG GT (09:30)
--- NOTE | 2024-05-29 11:36 | PC.SS ---
Update: Goals of care meeting scheduled for 02:00 pm today.
--- NOTE | 2024-05-29 11:54 | PC.SS ---
PASSR completed. Patient meets Level I criteria. No follow up required.
--- NOTE | 2024-05-29 13:01 | PC.RT ---
Patients Blow by was changed and dated along with collar/dresssing change.
--- NOTE | 2024-05-29 15:06 | PC.SS ---
HORSERADISH MAKER confirmed with sub-acute that patient can return under comfort care, patient cannot return under hospice. HORSERADISH MAKER updated attending.
--- NOTE | 2024-05-29 15:07 | PC.SS ---
Rounding Note: Plan is for goals of care meeting today. Family to decide transitioning patient to comfort care.
--- NOTE | 2024-05-29 16:12 | ESPR_ITS ---
<Statement entered by Angelina Moreno MD - 05/29/24 23:45> Patient was seen and examined by me personally. I have directly supervised and reviewed the above documentation by the team resident and agree with its findings with any exceptions or additional findings as below. Plan of care was discussed with the attending, Dr. Arzola. Spoke over telephone with son and decision-maker, Rashel Oh, to follow up goals of care and the decision family has made regarding the patient's care. The family has decided to not pursue further aggressive measures or investigative diagnostics for the possible malignancy. They are agreeable to hospice, but want it to be at a facility in [place] where most family is located. Relayed decision to case management team, who stated that getting the patient transferred to a subacute with a hospice bed will be challenging. Additionally, should the patient remain on the inpatient floor for attempted transfer, her bed spot in the [facility] subacute will be given up. Discussed case also with Dr. Hernandez, who states that if the patient comes back to [facility] and requests a lateral transfer for subacute hospice bed in [place], ambulance transport will additionally likely need to be paid [id number] and may cost tens of thousands for the family. The other option is for the patient to be started on comfort care in the [facility]. All the above was relayed to decision-maker, Rashel. Ultimately, it was decided that the patient will be discharged back to [facility] subacute tomorrow morning, to continue the current management for pneumonia. The referral for [facility] has been initiated by case management team and per Irineo Salinas and Gloria will be continued at the subacute level with their SW team. Son Rashel is aware of the fact that transfer may be difficult or impossible, with the additional caveat of transport cost. Currently, he does not want to start comfort measures yet, but will continue to deliberate with family. Angelina Moreno, PGY-2 Documentation for date of: 05/29/24 Subjective Subjective Interval history: 05/30/2024: No acute overnight events to report. Patient seen and examined in hospital bed, remains on blow-by saturating in the 90s. Goals of care discussion completed with the patient's son and upon speaking with the rest of his family, he would like to pursue hospice level of care. Explained to the patient's son what hospice entails, answered all his questions and he is understanding of the process. Will speak with case management about their request and proceed as applicable. Exam Vital Signs Temp Pulse Resp BP Pulse Ox O2 Del Method O2 Flow Rate 97.2 F 68 20 121/55 L 98 Blow-by 8 05/29/24 11:53 05/29/24 13:01 05/29/24 13:01 05/29/24 11:53 05/29/24 13:01 05/29/24 11:53 05/29/24 13:01 FiO2 30 05/29/24 13:01 Narrative Exam Physical Exam General: Awake, non-conversational (s/p strokes and tracheostomy) HEENT: Normocephalic, atraumatic, mucous membranes moist. Chronic tracheostomy. Heart: Regular rate and rhythm, no murmurs. Lungs: Clear to auscultation with no wheezing or crackles. Pleurx catheter site clean Abdomen: Soft, nondistended, nontender, positive bowel sounds. ?No guarding or rebound tenderness PEG tube area normal.. Extremities: No edema. Skin: No rash or ecchymoses. Neurologic: Alert and oriented x0, does not follows commands Objective Labs 05/29/24 05:24 05/29/24 05:24 Labs: Laboratory Results - last 24 hr 05/29/24 05:24 WBC 16.5 H RBC 3.20 L Hgb 9.0 L Hct 27.4 L MCV 86 MCH 28.1 MCHC 32.8 RDW Std Deviation 49.6 H Plt Count 353 D Neut % (Auto) 84 H Lymph % (Auto) 7 L Alcorn % (Auto) 8 Eos % (Auto) 1 Baso % (Auto) 0 Neut # (Auto) 13.8 H Lymph # (Auto) 1.1 Alcorn # (Auto) 1.3 H Eos # (Auto) 0.2 Baso # (Auto) 0.0 Immature Gran # (Auto) 0.08 H Absolute Nucleated RBC 0.00 Immature Gran % 1 H Nucleated RBC % 0 Sodium 135 L Potassium 4.2 Chloride 96 L Carbon Dioxide 30.8 Anion Gap 8 BUN 38 H Creatinine 0.9 Estim Creat Clear Calc 35.7 L eGFR > 60 BUN/Creatinine Ratio 42 H Glucose 167 H D Calculated Osmolality 283 Calcium 8.0 L Corrected Calcium 8.9 Phosphorus 2.7 Magnesium 2.2 Total Bilirubin 0.4 AST 17 ALT 21 Alkaline Phosphatase 82 Total Protein 5.7 Albumin 2.9 L Globulin 2.8 Albumin/Globulin Ratio 1.0 L ABG Interpretation ABG results: 05/20/24 05/20/24 07:00 11:00 ABG pH 7.40 7.43 ABG pCO2 45 41 ABG pO2 44 L* 53 L* ABG HCO3 28 H 27 H ABG O2 Saturation 94 100 H ABG Base Excess 3 3 Quality Measures Quality Measures VTE prophylaxis Advance care planning discussed with:: child (Son, Rashel Her) Assessment & Plan Assessment Current Active Medications: Generic Name Dose Route Start Last Admin Trade Name Freq PRN Reason Stop Dose Admin Acetaminophen 650 mg 05/20/24 09:38 05/21/24 16:34 Acetaminophen Viviana 325 Mg/10 Ml Udc GT 06/18/24 14:45 650 mg Q6HR PRN Administration Pain(1-3) Or Fever > 100.3 Albuterol/Ipratropium 3 ml 05/19/24 19:00 05/29/24 12:55 Albuterol/Ipratropium (Duoneb) Rt Viviana 3 Ml Nebu INH 06/18/24 18:59 3 ml Q6HRRT AMARJIT Administration Amiodarone HCl 200 mg 05/20/24 09:00 05/29/24 09:20 Amiodarone Hcl 200 Mg Tablet GT 06/19/24 08:59 200 mg DAILY AMARJIT Administration Amoxicillin/Clavulanate Potassium 1 tab 05/26/24 21:00 05/29/24 09:25 Amoxicillin/Pot Clav 875 Tablet PO 06/02/24 20:59 1 tab BID AMARJIT Administration Atorvastatin Calcium 40 mg 05/19/24 21:00 05/28/24 22:18 Atorvastatin Calcium 20 Mg Tablet GT 06/18/24 20:59 40 mg HS AMARJIT Administration Collagenase 0 gm 05/20/24 09:00 05/29/24 09:20 Collagenase Oint 30 Gm Tube TOP 06/19/24 08:59 1 applicatio BID AMARJIT Administration Dextrose 50 ml 05/19/24 14:50 Dextrose 50%-Water Inj 50 Ml Syringe IV 06/18/24 14:49 Q15MIN PRN BG <50 OR BG <70 & pt unresponsive Fluconazole 200 mg 05/24/24 10:15 05/29/24 09:30 Fluconazole Susp 40 Mg/Ml Ml GT 05/31/24 10:14 200 mg QDAY AMARJIT Administration Furosemide 40 mg 05/25/24 09:00 05/29/24 09:25 Furosemide Inj 10 Mg/Ml 4ml Vial IVP 06/24/24 08:59 40 mg BID AMARJIT Administration Glucagon 1 mg 05/19/24 14:50 Glucagon Inj 1 Mg Vial IM Q15MIN PRN BG <70, and no IV access Insulin Glargine 5 unit 05/28/24 21:00 05/28/24 22:21 Insulin Glargine (Lantus) 5 Unit/0.05 Ml (Per 5 Units) SC 06/27/24 20:59 5 unit HS AMARJIT Administration Insulin Human Lispro 0 unit 05/19/24 18:00 05/29/24 11:58 Insulin Lispro (Admelog) 1 Unit/0.01 Ml Unit SC 06/18/24 17:59 2 unit Q6HR AMARJIT Administration Protocol Lactulose 10 gm 05/19/24 16:14 Lactulose Syrup 20 Gm/30 Ml Udc GT 06/19/24 08:59 DAILY PRN Constipation Protocol Metoprolol Tartrate 25 mg 05/19/24 21:00 05/29/24 09:25 Metoprolol Tartrate 25 Mg Tablet GT 06/18/24 20:59 25 mg BID AMARJIT Administration Ondansetron HCl 4 mg 05/19/24 14:24 Ondansetron Inj 2 Mg/Ml Inj 2 Ml IV 06/18/24 14:23 Q6H PRN NAUSEA OR VOMITING Protocol Pantoprazole Sodium 40 mg 05/19/24 14:30 05/29/24 09:19 Pantoprazole Inj 40 Mg Vial IVP 06/18/24 14:29 40 mg QDAY AMARJIT Administration Sennosides 1 tab 05/20/24 09:00 05/29/24 09:25 Senna Tablet GT 06/19/24 08:59 1 tab QDAY AMARJIT Administration Protocol Plan Patient is an 83-year-old ong female, 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 Patient will be admitted for acute respiratory failure with hypoxia secondary to large left-sided pleural effusion in the setting of community-acquired pneumonia. #Acute on chronic respiratory failure with hypoxia, resolved #Community-acquired versus hospital-acquired versus aspiration pneumonia #Malignant, large Left sided Pleural effusion s/p diagnostic/therapeutic thoracentesis 05/20/2024 Medical history is unclear. Patient was recently accepted at subacute unit. She is chronically pegged and trached. Apparently she has been spiking fevers of 101 over the last few days. Met 4/ SIRS criteria with fever, tachypnea, tachycardia and leukocytosis. Chest x-ray significant for extensive pneumonia and atelectasis left lung. Repeat chest x-ray significant for extensive pneumonia/edema throughout all lung alfaro with large layering left pleural effusion. Chest CT significant for thyromegaly with multiple thyroid nodules, large bilateral pleural effusions, atelectasis and pneumonia left lung base. Mild pneumonia right lung base RSV negative MRSA nares negative [05/19] sputum culture grew Staphylococcus aureus. With beta-lactamase activity against ampicillin and penicillin. [05/19] Blood culture negative x 48 hours preliminary [05/22] blood culture negative x 48 hours preliminary PSI/PORT : 163 points. Risk class V. Hospitalization recommended based on risk Patient had diagnostic/therapeutic left thoracentesis on 05/20/2024. Patient had Pleurx catheter installed 05/25/2024. Drained 1300 cc of pleural fluid. Fluid analysis revealed a transudative effusion. Cytology report from 05/19/2024 findings include: Suspicious for malignancy. Malignant cells exist as individual cells with high N; C ratios [in the background of the PI-RADS signet-ring cells]. Differential diagnosis include primary tumor of lung, breast. Colon Unlikely. May also represent a combination of metastases including urogenital tract primary, reactive mesothelial proliferation or mesothelioma Received Zosyn and vancomycin IV for 2 days from [05/19 - 05/21] Pleural fluid culture no growth to date Plan: Goals of care discussion discussed with son on 05/29; after thorough explanation of what hospice entails, he is in agreement to pursue it On blow-by as tolerated Continue DuoNebs Q6 hourly Augmentin 875 twice daily [05/26?currently] #Newly diagnosed chronic diastolic congestive heart failure with preserved ejection fraction [EF 55 to 60%] Patient has scattered crackles auscultation bilaterally worse on right CXR shows bilateral pleural effusion worse on the left and consolidation of the right around cardiac silhouette. Trans-thoracic echocardiogram completed on 05/21/2024: LV appears normal with EF 55-60%. Diastolic Dysfunction II is present. RV has mildly elevated RVSP of 45 mmHg MV has mod-severe MR. mild MAC. AOV looks sclerotic From telemetry review patient and sinus rhythm overnight with heart rate between 70s?80 80s. K 4.5, Mg 2.3. Will Keep K>4 and Mg >2 at all times to avoid arrhythmias Patient had fluid balance of - 1500cc in past 24 hours. Plan: Strict input output charting 2G sodium restricted diet 1500 cc/day fluid restriction Lasix 40 Mg IV twice daily Cardiology, Dr. Guevara consulted for newly diagnosed diastolic heart failure. Appreciate recommendations #Chronic normocytic anemia #Chronic disease anemia On admission Hb 9.2. From chart review manage Hb between 8?9 Currently Hb 7.2 Iron 26, TIBC 156, iron saturation 16%, ferritin 634. CRP 6.3, B12 758, folate 16.84. Mixed picture of iron deficiency and anemia of chronic disease. Hgb stable Plan: Transfuse if hemoglobin less than 7.0 #Sacral ulcer stage II/III Patient has sacral ulcer with minimal slough and some purulent drainage Debridement by general surgeon, Dr. Garrett on 05/23/2024 Plan: Wound care as per wound care nurse General Surgery, Dr. Garrett consulted. Appreciate recommendationss #Primary Hypertension #A-fib, likely paroxysmal #NSTEMI type 1 vs type 2 - resolving #Hyperlipidemia HASBLED 4 indicates high risk for major bleed. [id number] indicates 17% stroke/TIA/embolism. Troponin 0.077 ---> 0.238 EKG significant for sinus tachycardia, rate 107. Q waves in septal leads. No acute ST changes. Increasing troponin likely due to stress from diaphoresis and hypoxia. Plan: Continue telemetry monitoring Continue home medications amiodarone 200 Mg GT daily for rate control and metoprolol tartrate 25 Mg GT twice daily Eliquis continues to be on hold due to anemia #Insulin-dependent diabetes mellitus type 2 A1c [6.4%] Home medication insulin sliding scale Plan: Insulin sliding scale #Yeast urinary infection Urine culture completed on 05/22/2024 grew yeast. ID to follow. Plan: Fluconazole 200 Mg p.o. daily for 2 weeks. #Hx of seizure disorder Not on home ANTIEPILEPTICS. No signs of seizures. Plan: Seizure precaution #Chronic constipation Likely secondary to CVA. Patient on chronic laxatives Plan: Continue Lactulose 10 mg GT prn Continue senna daily #Chronic PEG tube #Hx of CVA #Goals of care History of large cerebral vessel occlusion. Chronically trached and pegged. Opens eyes spontaneously. Does not follow command. PEG tube appears intact without signs of infection. 05/25: Son does not wish for aggressive measures at this time but is okay with placement of Pleurx catheter for comfort. Plan: Tube feeds Registered dietitian referral Plan on having goals of care discussion with family on 05/29/2024 Hospital Management: Bowel: Senna Diet: Tube feeds Lines: PIV GI Prophylaxis: protonix DVT Prophylaxis: SCDs Dispo: Pending goals of care discussion with family Code status: DNR Patient seen and assessed with attending Dr. Arzola and senior resident Dr. Josh Jackson, PGY-1 Attending Provider Attestation/Addendum I have examined the patient, reviewed labs and imaging findings, discussed the case with the resident(s), and reviewed entered orders. I agree with the plan of care as outlined in this note, with these additional summaries/recommendations: Patient seen at bedside. No acute overnight events. Goals of care was held between medical team and patients medical decision maker. Patients poor prognosis was discussed at length. All treatment options and hospice were discussed. Medical decision maker reported he would like to discuss with family and pending repeat goals of care with patients family today. Pleurx catheter site appears clean with no discharge. Pleurx catheter placed for malignant pleural effusion. Primary source remains unknown although family has declined further invasive workup or treatment with chemotherapy/radiation. We will continue antibiotics for superimposed bacterial pneumonia. We will continue aggressive diuresis for heart failure with preserved ejection fraction. Patient has underlying anemia of chronic disease and required blood transfusion yesterday with appropriate hemoglobin of 8.7 today. Continue wound care for sacral decubitus ulcer. Continue amiodarone and metoprolol for history of paroxysmal A-fib. Continue insulin sliding scale for diabetes mellitus type 2. Continue home antiepileptics and no seizure activity noted while hospitalized. Continue tube feeds and free water flushes via PEG. Dr. Ness MD
--- NOTE | 2024-05-29 17:14 | PC.SS ---
BARREL CHARRER informed by resident that patient's son has agreed to transition the patient to hospice services. BARREL CHARRER relayed to resident that sub-acute does not possess hospice beds on the unit patient will have to transition to comfort care. BARREL CHARRER informed by resident that patient's son requesting transition to [facility] sub-acute. BARREL CHARRER informed resident that follow up with social group worker engine repair supervisor pending to determine if request to be generated by inpatient social group worker or sub-acute team.
--- NOTE | 2024-05-29 17:30 | PC.SS ---
LEATHER CARVER confirmed with S.S. heel room supervisor request to initiate sub-acute referrals on [facility] to [facility] facilities on behalf of the patient as requested by patient's family. Plan is for the patient to transition to [place] sub-acute unit once medically cleared. If placement not secured prior to patient's transition sub-acute unit to continue search for [facility] sub-acute placement. Patient's son informed by resident team challenge of securing sub-acute placement another facility with comfort care measures in place.
[2024-05-29] MEDS: INSULIN GLARGINE (Lantus) 5 UNIT/0.05 ML (PER 5 UNITS) SC (20:22)
[2024-05-29] MEDS: ATORVASTATIN CALCIUM 20 MG TABLET 40 MG GT (20:23)
[2024-05-30] VITALS (12 sets, daily range): BP systolic 131–145; BP diastolic 61–73; PULSE 54–81; RESP 18–28; TEMP 36.1–36.8; O2SAT 95–99; BMI 20.7
[2024-05-30] MEDS: INSULIN LISPRO (AdmeLOG) 1 UNIT/0.01 ML UNIT SC ×3 (00:31→11:40)
[2024-05-30] MEDS: ALBUTEROL/IPRATROPIUM (Duoneb) RT SOL 3 ML NEBU INH ×3 (01:07→12:22)
--- NOTE | 2024-05-30 04:39 | PC.NURSE ---
[facility] 0200 [facility] 0320.
[2024-05-30 05:55] LABS: Basophils # (Auto) 0.1 Thou/mm3 (0.0-0.2); Basophils % (Auto) 0 % (0-2.5); Eosinophils # (Auto) 0.2 Thou/mm3 (0.0-0.5); Eosinophils % (Auto) 1 % (0-10); Hematocrit 28.5 % (36.0-46.0); Hemoglobin 9.4 g/dL (12.0-16.0); Immature Granulocytes % (Auto) 0 % (0-0); Immature Granulocytes Auto 0.06 Thou/mm3 (0.00-0.00); Lymphocytes # (Auto) 1.3 Thou/mm3 (1.0-4.8); Lymphocytes % (Auto) 9 % (10-50); Mean Corpuscular Hemoglobin 27.8 pg (25.0-35.0); Mean Corpuscular Volume 84 fL (80-100); Monocytes # (Auto) 1.2 Thou/mm3 (0.0-0.8); Monocytes % (Auto) 8 % (0-12); Neutrophils # (Auto) 12.4 Thou/mm3 (1.8-7.7); Neutrophils % (Auto) 81 % (37-80); Nucleated Red Blood Cell % 0 /100 WBC (0); Platelet Count 359 Thou/mm3 (140-440); RDW Standard Deviation 47.4 fL (36.4-46.3); Red Blood Count 3.38 Miln/mm3 (4.00-5.20); White Blood Count 15.2 Thou/mm3 (3.6-11.0)
[2024-05-30 06:24] LABS: Alanine Aminotransferase 16 U/L (10-49); Albumin/Globulin Ratio 0.9 (1.2-2.2); Alkaline Phosphatase 79 U/L (46-116); Anion Gap 5 (7-16); Aspartate Amino Transferase 14 U/L (0-34); BUN/Creatinine Ratio 45 Ratio (12-20); Bilirubin,Total 0.3 mg/dL (0.3-1.2); Blood Urea Nitrogen 36 mg/dL (9-23); Calcium 8.2 mg/dL (8.3-10.6); Carbon Dioxide 31.6 mMol/L (20.0-31.0); Chloride 95 mMol/L (98-107); Creatinine (Component) 0.8 mg/dL (0.6-1.3); Estimated Creatinine Clearance 40.2 mL/min (>60); Globulin 3.2 gm/dL (2.3-3.5); Glucose 153 mg/dL (74-106); Osmolality,Calculated 275 (275-295); Phosphorous 3.3 mg/dL (2.4-5.1); Potassium 4.1 mMol/L (3.4-5.1); Sodium 132 mMol/L (136-145); Total Protein 6.2 gm/dL (5.7-8.2); eGFR > 60 See Note
[2024-05-30] MEDS: FUROSEMIDE INJ 10 MG/ML 4ML VIAL 40 MG IVP (08:01)
[2024-05-30] MEDS: PANTOPRAZOLE INJ 40 MG VIAL IVP (08:01)
[2024-05-30] MEDS: SENNA TABLET 1 TAB GT (08:02)
[2024-05-30] MEDS: AMOXICILLIN/POT CLAV 875 TABLET 1 TAB PO (08:02)
[2024-05-30] MEDS: FLUCONAZOLE SUSP 40 MG/ML ML 200 MG GT (08:02)
[2024-05-30] MEDS: AMIODARONE HCL 200 MG TABLET GT (08:03)
[2024-05-30] MEDS: METOPROLOL TARTRATE 25 MG TABLET GT (08:03)
--- NOTE | 2024-05-30 08:03 | PC.SS ---
Referrals to [facility] sub-acute facilities submitted on [facility]. Responses pending.
--- NOTE | 2024-05-30 08:47 | ESPR_ITS ---
Documentation for date of: 05/30/24 Subjective Subjective Interval history: Patient seen and examined at bedside, patient is -676 cc, had about 2.35 L urine output in the last 24 hours. Patient is tolerating blow-by well, primary team had goals of care discussion with patient's family yesterday, it was eventually decided to discharge patient to subacute later today. Recommend Bumex 1 mg p.o. daily, resume Eliquis if no significant bleeding or bleeding risk for underlying paroxysmal atrial fibrillation, continue home medications amiodarone 200 mg daily and metoprolol tartrate 25 mg p.o. twice daily. Exam Vital Signs Temp Pulse Resp BP Pulse Ox O2 Del Method O2 Flow Rate 98.3 F 61 23 H 131/61 H 98 Blow-by 6 05/30/24 04:00 05/30/24 08:03 05/30/24 06:37 05/30/24 08:03 05/30/24 06:37 05/30/24 04:00 05/30/24 06:37 FiO2 28 05/30/24 06:37 Narrative Exam Physical Exam General: Awake, non-conversational (s/p tracheostomy) HEENT: Normocephalic, atraumatic, mucous membranes moist. Chronic tracheostomy on blow-by. Heart: Regular rate and rhythm, no murmurs. Lungs: Clear to auscultation with no wheezing or crackles. Pleurx catheter noted. Abdomen: Soft, nondistended, nontender, positive bowel sounds. ?No guarding or rebound tenderness PEG tube area normal.. Extremities: No edema. Skin: No rash or ecchymoses. Neurologic: Alert and oriented x0, nonverbal, does not follows commands Objective Labs 05/30/24 05:20 05/30/24 05:20 Labs: Laboratory Results - last 24 hr 05/30/24 05:20 WBC 15.2 H RBC 3.38 L Hgb 9.4 L Hct 28.5 L MCV 84 MCH 27.8 MCHC 33.0 RDW Std Deviation 47.4 H Plt Count 359 Neut % (Auto) 81 H Lymph % (Auto) 9 L Williamson % (Auto) 8 Eos % (Auto) 1 Baso % (Auto) 0 Neut # (Auto) 12.4 H Lymph # (Auto) 1.3 Williamson # (Auto) 1.2 H Eos # (Auto) 0.2 Baso # (Auto) 0.1 Immature Gran # (Auto) 0.06 H Absolute Nucleated RBC 0.00 Immature Gran % 0 Nucleated RBC % 0 Sodium 132 L Potassium 4.1 Chloride 95 L Carbon Dioxide 31.6 H Anion Gap 5 L BUN 36 H Creatinine 0.8 Estim Creat Clear Calc 40.2 L eGFR > 60 BUN/Creatinine Ratio 45 H Glucose 153 H Calculated Osmolality 275 Calcium 8.2 L Corrected Calcium 9.0 Phosphorus 3.3 Total Bilirubin 0.3 AST 14 ALT 16 Alkaline Phosphatase 79 Total Protein 6.2 Albumin 3.0 L Globulin 3.2 Albumin/Globulin Ratio 0.9 L ABG Interpretation ABG results: 05/20/24 05/20/24 07:00 11:00 ABG pH 7.40 7.43 ABG pCO2 45 41 ABG pO2 44 L* 53 L* ABG HCO3 28 H 27 H ABG O2 Saturation 94 100 H ABG Base Excess 3 3 Quality Measures Quality Measures VTE prophylaxis Advance care planning discussed with:: patient Assessment & Plan Assessment Current Active Medications: Generic Name Dose Route Start Last Admin Trade Name Freq PRN Reason Stop Dose Admin Acetaminophen 650 mg 05/20/24 09:38 05/21/24 16:34 Acetaminophen Viviana 325 Mg/10 Ml Udc GT 06/18/24 14:45 650 mg Q6HR PRN Administration Pain(1-3) Or Fever > 100.3 Albuterol/Ipratropium 3 ml 05/19/24 19:00 05/30/24 06:36 Albuterol/Ipratropium (Duoneb) Rt Viviana 3 Ml Nebu INH 06/18/24 18:59 3 ml Q6HRRT AMARJIT Administration Amiodarone HCl 200 mg 05/20/24 09:00 05/30/24 08:03 Amiodarone Hcl 200 Mg Tablet GT 06/19/24 08:59 200 mg DAILY AMARJIT Administration Amoxicillin/Clavulanate Potassium 1 tab 05/26/24 21:00 05/30/24 08:02 Amoxicillin/Pot Clav 875 Tablet PO 06/02/24 20:59 1 tab BID AMARJIT Administration Atorvastatin Calcium 40 mg 05/19/24 21:00 05/29/24 20:23 Atorvastatin Calcium 20 Mg Tablet GT 06/18/24 20:59 40 mg HS AMARJIT Administration Collagenase 0 gm 05/20/24 09:00 05/29/24 20:23 Collagenase Oint 30 Gm Tube TOP 06/19/24 08:59 1 applicatio BID AMARJIT Administration Dextrose 50 ml 05/19/24 14:50 Dextrose 50%-Water Inj 50 Ml Syringe IV 06/18/24 14:49 Q15MIN PRN BG <50 OR BG <70 & pt unresponsive Fluconazole 200 mg 05/24/24 10:15 05/30/24 08:02 Fluconazole Susp 40 Mg/Ml Ml GT 05/31/24 10:14 200 mg QDAY AMARJIT Administration Furosemide 40 mg 05/25/24 09:00 05/30/24 08:01 Furosemide Inj 10 Mg/Ml 4ml Vial IVP 06/24/24 08:59 40 mg BID AMARJIT Administration Glucagon 1 mg 05/19/24 14:50 Glucagon Inj 1 Mg Vial IM Q15MIN PRN BG <70, and no IV access Insulin Glargine 5 unit 05/28/24 21:00 05/29/24 20:22 Insulin Glargine (Lantus) 5 Unit/0.05 Ml (Per 5 Units) SC 06/27/24 20:59 5 unit HS AMARJIT Administration Insulin Human Lispro 0 unit 05/19/24 18:00 05/30/24 05:11 Insulin Lispro (Admelog) 1 Unit/0.01 Ml Unit SC 06/18/24 17:59 2 unit Q6HR AMARJIT Administration Protocol Lactulose 10 gm 05/19/24 16:14 Lactulose Syrup 20 Gm/30 Ml Udc GT 06/19/24 08:59 DAILY PRN Constipation Protocol Metoprolol Tartrate 25 mg 05/19/24 21:00 05/30/24 08:03 Metoprolol Tartrate 25 Mg Tablet GT 06/18/24 20:59 25 mg BID AMARJIT Administration Ondansetron HCl 4 mg 05/19/24 14:24 Ondansetron Inj 2 Mg/Ml Inj 2 Ml IV 06/18/24 14:23 Q6H PRN NAUSEA OR VOMITING Protocol Pantoprazole Sodium 40 mg 05/19/24 14:30 05/30/24 08:01 Pantoprazole Inj 40 Mg Vial IVP 06/18/24 14:29 40 mg QDAY AMARJIT Administration Sennosides 1 tab 05/20/24 09:00 05/30/24 08:02 Senna Tablet GT 06/19/24 08:59 1 tab QDAY AMARJIT Administration Protocol Plan Ms. Guaman is an 83 year female with past medical history significant for Hypertension, non-insulin dependent type 2 diabetes, seizure disorder, Hx of a- fib and hx of multiple CVA's. Pt is chronically non verbal since the CVA's and has been tracheostomy with PEG tube placement unsure of when as Pt first arrived at [facility] subacute facility in March 2024. Pt was brought back to the ED on 05/19/24 for recurrent fevers and reaccumulation of large left pleural effusions. #Acute hypoxic respiratory failure in the setting of #Sepsis 2/ #Bilateral pneumonia #Pleural effusions s/p thoracentesis # Pleural effusions -malignant cells #Status post Pleurx catheter placement -Pt presented from subacute due to recurrent fevers -RSV, influenza A & B and COVID negative -SIRS 4/4 met: leukocytosis, tachycardia, tachyapnea and fever -CXR- [id number] heart failure, Moderate bilateral pleural effusions, Prominent vascular congestion with perihilar basilar edema. Extensive pneumonia and/or edema throughout the lung alfaro with large layered left pleural effusion -left thoracenthesis done on 05/20 drained 1300 cc -Will monitor consistent with exudative effusions -pleural fluid cytology is suspicious for malignant cells -Pt is on antibiotics and Duonebs -Pleurx catheter placed 05/25/2024 #Acute exacerbation of CHF- improved #New onset of diastolic CHF- HFpEF with EF 55-60% -although pt does appear to be fluid overloaded on physical examination with 1+ dependant edema in the upper thigh and unable to provide history of symptoms -CXR- evident of vascular congestion with pleural effusions -BNP 2371 ECHO done on 05/21/24 LV appears normal with EF 55-60%. Diastolic Dysfunction II is present. RV has mildly elevated RVSP of 45 mmHg MV has mod-severe MR. mild MAC AOV looks sclerotic. TV has mild to moderate TR. Large pleural Effusion present. 05/28- -Pt is net negative -676cc -Net negative for hospitalization around 8 L -Patient was on IV Lasix 40 mg twice daily, recommended discharge on Bumex 1 mg p.o. daily. -Strict input output, daily weights and low-sodium tube feeds #Primary Hypertension -Pt's home amlodipine is not resumed. Pt BP is well controlled #Atrial fibrillation, by history -Pt has history of A-fib which is rate and rhythm controlled with Amiodarone and metoprolol -EKG shows sinus rhythm -CHADsVAS score- 7 -HAS-BLED score 3 -Pt is rate and rhythm controlled with amiodarone and metoprolol and for anticoagulation, pt was on eliquis at home, not continued inpateint, likely due to acute anemia -Can resume Eliquis as patient's hemoglobin has been stable. #Acute Anemia #Chronic disease anemia -Hemoglobin is 7.2, hematocrit 22, MCV 88 -Iron panel today showed iron 26, TIBC 156, iron saturation 16%, unsaturated iron 130, ferritin 634 findings are aligned with inflammatory anemia likely in the setting of sepsis -Transfuse if hemoglobin <7 -Monitor daily CBC #Insulin dependent type 2 diabetes -A1c 6.4 on 04/22/24 -Pt is on insulin sliding scale #Sacral ulcer stage II/III -Pt has deep sacral ulcer -Status post excisional debridement of sacral decubitus ulcer done on 05/23/24 #UTI -Urine culture from 05/22/2024 grew yeast -Patient is started on fluconazole and ID is following #History of seizure disorder -Pt is currently not on antiepileptic meds #Hx of CVA #Chronic constipation #Chronic PEG tube -Pt has history of multiple CVA with residual deficit and non verbal -Pt is s/p tracheostomy and PEG tube placement -Pt is on statin -Patient on p.o. senna Assessment and plan discussed with my attending physician Dr. Ismael Fitzgerald PGY1 Internal medicine Attending Provider Attestation/Addendum I have personally seen and examined the patient separately on the above date of service and discussed the plan of care with the resident. I reviewed the resident Dr. Carl Fitzgerald consultation progress note and agree with the resident findings and plan in the note above and have also edited the documentation to reflect my findings and plan. Alfa Guevara M.D. Interventional Cardiology
--- NOTE | 2024-05-30 08:53 | PC.SS ---
REQUIREMENTS ENGINEER confirmed with resident that patient's son does not want to transition the patient to comfort care at this time. Plan is for the patient to transition to [facility] sub-acute unit without comfort care measures in place. REQUIREMENTS ENGINEER updated sub-acute staff.
--- NOTE | 2024-05-30 09:39 | ESDS_ITS ---
<Statement entered by Angelina Moreno MD - 05/30/24 15:45> Patient was seen and examined by me personally. I have reviewed the below documentation by the team resident and agree with its findings with any exceptions as below. Discharge plan was discussed with the attending, Dr. Arzola. Patient is stable for discharge back to subacute today, continue selective treatment. Per discussion with son, Rashel Oh, patient will not start comfort care at this time but they are interested in hospice. He wants to wait and see if a transfer to [facility] is possible. He is understanding that it will be difficult and require [id number] transit costs. conference services director started a referral to [facility], no accepting facility at this time. Process will be continued at subacute level. Antibiotic course completed inpatient so no further need for antibiotics at this point. Patient does have a right-sided Pleur-X catheter that may be used for symptomatic drainage as needed for recurrent pleural effusion. Angelina Moreno, PGY-2 Planned Discharge Date 05/30/24 DS: Providers Provider Date of admission: 05/19/24 14:24 Primary care physician: Misha Hernandez MD Admitting Provider: Marlena Minaya DO Attending Provider on Admission: Michel Arzola MD Consults: 05/19/24 14:55 Referral Registered Dietitian Routine Comment: Instructions: For tube feeds please 05/19/24 16:25 Referral Wound Care Routine Comment: 05/21/24 11:03 Consult to General Surgery Routine Comment: Sacral ulcer Consulting Provider: Radha Garrett 05/22/24 14:30 Consult to Cardiology Routine Comment: Newly diagnosed diastolic heart failure Consulting Provider: Alfa Guevara Attending Provider on DC: Marc Jackson MD Discharging Provider: Marc Jackson MD DS: Diagnosis Problem List Completed Was Problem List Reviewed/Reconciled?: Yes Hospital Course Hospital Course Hospital course: 83-year-old female with past medical history of chronically trach with PEG secondary to multiple strokes, seizure disorder, atrial fibrillation, primary hypertension, insulin-dependent type 2 diabetes presenting for recurrent fevers from the subacute facility at [facility]. In the ED, patient was satting 97% on 8 L via blow-by; moreover, labs were significant for WBC of 18.6, lactic acid initially 2.8, Pro-Saul 8.52 with imaging finding showing chest x-ray significant for extensive pneumonia and atelectasis of the left lung, chest CT showing thyromegaly with multiple thyroid nodules, large bilateral pleural effusions, pneumonia in the left lung base and atelectasis. Patient was admitted for acute respiratory failure with hypoxia secondary to large left- sided pleural effusion in the setting of aspiration pneumonia. Rapid response was called second day of admission with the patient desaturating; chest x-ray and ABGs were ordered and upon reassessment patient was stable. Decision was made to complete a thoracentesis on the left side which was completed and pleural fluid analysis was sent out. 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 Echocardiogram ordered during admission also showed newly diagnosed congestive heart failure with preserved ejection fraction; moreover, cardiology was consulted and the recommendation was to begin IV diuretics for the patient. Cardiology also recommended management of the atrial fibrillation and Eliquis was held secondary to anemia. Surgery was also consulted secondary to sacral ulcers which required debridement bedside and wound care. Patient's pleural effusion reaccumulated as a result, decision was made alongside family to have Pleurx catheter placed for symptomatic relief. Patient's son, decision maker, was updated throughout patient's hospitalization and has agreed for her to be discharged back to the subacute for further goals of care discussions. Please continue to work on subacute transfer for hospice bed at [facility] per family's request Please take Bumex 1 mg once daily Hold Eliquis until Hgb stable and no further evidence of GI bleeding in 2 weeks Continue rest of medications as previously prescribed Return to the ED or call EMS if symptoms return and/or worsen. 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 Skin prep to wound edges and allow to dry than secure with allyeven dressing daily and PRN for falling off. Side to side repositioning every 2 hours on pressure redistribution/low air loss surface, negative heel pressure bilaterally Hospital Diagnosis: #Acute on chronic respiratory failure with hypoxia, resolved #Aspiration pneumonia #Malignant, large Left sided Pleural effusion s/p diagnostic/therapeutic thoracentesis 05/20/2024 #Newly diagnosed chronic diastolic congestive heart failure with preserved ejection fraction [EF 55 to 60%] #Anemia of chronic disease #Sacral ulcer stage II/III #Primary Hypertension #A-fib, likely paroxysmal #NSTEMI type 2 #Hyperlipidemia #Insulin-dependent diabetes mellitus type 2 #Yeast urinary infection #Hx of seizure disorder #Chronic constipation #Chronic PEG tube #Hx of CVA Marc Jackson, PGY-1 Status at Discharge Overall status at discharge: patient is progressing back to baseline Time Spent with Patient Time attestation: Total time spent providing and/or coordinating discharge services: 45 minutes Time spent: Greater than 30 minutes Exam Vital Signs Temp Pulse Resp BP Pulse Ox O2 Del Method O2 Flow Rate 98.3 F 61 23 H 131/61 H 98 Blow-by 6 05/30/24 04:00 05/30/24 08:03 05/30/24 06:37 05/30/24 08:03 05/30/24 06:37 05/30/24 04:00 05/30/24 06:37 FiO2 28 05/30/24 06:37 Narrative Exam Physical Exam General: Awake, non-conversational (s/p strokes and tracheostomy) HEENT: Normocephalic, atraumatic, mucous membranes moist. Chronic tracheostomy. Heart: Regular rate and rhythm, no murmurs. Lungs: Clear to auscultation with no wheezing or crackles. Pleurx catheter site clean Abdomen: Soft, nondistended, nontender, positive bowel sounds. ?No guarding or rebound tenderness PEG tube area normal.. Extremities: No edema. Skin: No rash or ecchymoses. Neurologic: Alert and oriented x0, does not follows commands Discharge Plan Plan Patient Disposition: Xfer Dry Room Attendant Acute Disposition Comment: Return to [facility] subacute Patient condition on transfer: Stable Care Plan Goals: Discharge Recommendations: -The patient received a total course of 12 days of antibiotics and will not require any additional antibiotics for now: Zosyn and vancomycin IV for 3 days from [05/19-05/21] Cefepime for 4 days from [05/22-05/25] Augmentin for 5 days from [05/26-05/30] -Please continue to work on subacute transfer for hospice bed at [facility] per family's request -Please take Bumex 1 mg once daily -Hold Eliquis until Hgb stable and no further evidence of GI bleeding in 2 weeks -Continue rest of medications as previously prescribed -Return to the ED or call EMS if symptoms return and/or worsen. 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 Skin prep to wound edges and allow to dry than secure with allyeven dressing daily and PRN for falling off. Side to side repositioning every 2 hours on pressure redistribution/low air loss surface, negative heel pressure bilaterally Prescriptions/Referrals Prescriptions/Med Rec: New bumetanide 1 mg tablet 1 mg PO QDAY 30 Days Qty: 30 0RF Continued atorvastatin 80 mg tablet 80 mg feeding tube HS acetaminophen 325 mg tablet 325 mg feeding tube Q6H PRN (Reason: fever or pain) ipratropium-albuterol 0.5 mg-3 mg(2.5 mg base)/3 mL solution for nebulization 3 ml INHALATION Q6H PRN (Reason: shortness of breath) amiodarone 200 mg tablet 200 mg feeding tube DAILY amlodipine 10 mg tablet 10 mg feeding tube QDAY bisacodyl [Gentle Laxative (bisacodyl)] 5 mg tablet,delayed release (DR/EC) 5 mg feeding tube Q6H PRN (Reason: constipation) Novolin R FlexPen 100 unit/mL (3 mL) insulin pen 1 sliding scale dose SUBCUT Q6H metoprolol tartrate 25 mg tablet 25 mg feeding tube Q12H lactulose [Enulose] 10 gram/15 mL solution 10 g feeding tube Q6H sennosides [Black-Draught Lax-Senna] 8.6 mg tablet 8.6 mg feeding tube BID Calcium 600 + D(3) 600 mg-5 mcg (200 unit) capsule 1 cap PO DAILY Rx Instructions: per Peg tube Held Eliquis 2.5 mg tablet 2.5 mg feeding tube BID Hold Instructions: Resume on 06/08/24. 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 Skin prep to wound edges and secure with allyven dressing daily x 28 days and re-eval. (May use triad hydrophilic paste if santyl not available) -Side to side repositioning q2h with wedges/pillows. Education Materials: What Is Hospice?, Hospice Dyspnea Care, Hospice: As Nears, Life Support Print Language: Hmong Stand Alone Forms: [facility]ani Award Info., Patient Portal Info Letter Discharge Order Discharge Orders: Discharge (Routine); Ordered 05/30/24 Ordered By: Angelina Moreno Quality Discharge Quality Measures VTE prophylaxis Attestestation MD Attestation I have examined the patient, reviewed labs and imaging findings, discussed the case with the resident(s), and reviewed entered orders. I agree with the plan of care as outlined in this note. Dr. Ness MD
[2024-05-30] MEDS: COLLAGENASE OINT 30 GM TUBE TOP (09:48)
--- NOTE | 2024-05-30 14:16 | PC.SS ---
Rounding Note: Plan is for the patient to transition to sub-acute unit.
--- NOTE | 2024-05-30 15:49 | PC.SS ---
SS sent [facility] through file exchange on [facility].
== END 2024-05-30 16:30 | DRG 871 ==
LOC: SERX 08:18 → SERHOLD 14:44 → S2NX 17:09
PROVIDERS: Student in an Organized Health Care Education/Training Program; Admitting Provider Internal Medicine; Emergency Provider Emergency Medicine; PCP Specialist; Visit Provider Student in an Organized Health Care Education/Training Program
DX: A41.9 Sepsis, unspecified organism (principal); J15.9 Unspecified bacterial pneumonia; L89.153 Pressure ulcer of sacral region, stage 3; J96.21 Acute and chronic respiratory failure with hypoxia; J69.0 Pneumonitis due to inhalation of food and vomit; J91.0 Malignant pleural effusion; I50.32 Chronic diastolic (congestive) heart failure; B37.49 Other urogenital candidiasis; E87.20 Acidosis, unspecified; J95.851 Ventilator associated pneumonia; Z99.11 Dependence on respirator [ventilator] status; C45.7 Mesothelioma of other sites; C57.9 Malignant neoplasm of female genital organ, unspecified; I11.0 Hypertensive heart disease with heart failure; E78.5 Hyperlipidemia, unspecified; I48.0 Paroxysmal atrial fibrillation; K59.09 Other constipation; D63.8 Anemia in other chronic diseases classified elsewhere; G40.909 Epilepsy, unspecified, not intractable, without status epilepticus; E11.9 Type 2 diabetes mellitus without complications; D50.9 Iron deficiency anemia, unspecified; R62.7 Adult failure to thrive; E04.2 Nontoxic multinodular goiter; I69.30 Unspecified sequelae of cerebral infarction; Z93.1 Gastrostomy status; Z93.0 Tracheostomy status; Z79.899 Other long term (current) drug therapy; Z79.84 Long term (current) use of oral hypoglycemic drugs; Z79.4 Long term (current) use of insulin; Z66 Do not resuscitate; Z79.01 Long term (current) use of anticoagulants; Y84.8 Other medical procedures as the cause of abnormal reaction of the patient, or of later complication, without mention of misadventure at the time of the procedure
CPT/HCPCS: 36415; 36600; 71045; 71260; 72020; 77012; 80053; 80061; 80202; 81001; 82150; 82607; 82728; 82746; 82803; 82945; 82947; 83540; 83550; 83605; 83615; 83735; 83880; 84100; 84145; 84157; 84484; 85014; 85018; 85025; 85046; 85610; 85652; 85730; 86140; 86850; 86900; 86901; 86923; 87040; 87070; 87075; 87077; 87081; 87086; 87106; 87186; 87205; 87400; 87634; 87811; 89051; 93005; 93306; 94002; 94003; 94640; 94664; 96361; 96365; 96366; 96367; 96375; 99285; A4649; A7048; A9270; J0692; J1815; J1940; J2270; J2470; J2543; J3370; J3371; J3475; J3480; J3490; J7030; J7050; P9016; P9047; Q9967

== ENCOUNTER 2024-05-30 16:45 | Inpatient (IN) | payer MEDICARE, OTHER, MEDICAID, SELFPAY ==
[2024-05-30 18:00] VITALS: BP 156/74; PULSE 69; RESP 17; TEMP 36.8; O2SAT 98
--- NOTE | 2024-05-30 18:25 | PD.SAHP ---
Physical exam Physical Exam Vital signs: Temp Pulse Resp BP Pulse Ox O2 Del Method O2 Flow Rate 97.7 F 56 L 19 121/71 94 L Blow-by 6 06/02/24 18:00 06/02/24 18:00 06/02/24 18:00 06/02/24 18:00 06/02/24 18:00 06/02/24 06:00 06/02/24 07:30 FiO2 28 06/02/24 07:30 Narrative: Elderly female, bed bound and not moving her extremities. Comfortable and in no distress and occasionally operns her eyes and some eye tracking but no evident response to verbal commands. Constitutional Comments: VSS HEENT Exam Head: Present normocephalic and atraumatic Eye: Present PERRL ENT: Present mucous membranes moist and nares patent Neck Exam Neck: Present supple Comments: Tracheostomy in place, site clean Chest/Breast/Axilla Exam Comments: NAD Respiratory Exam Respiratory: Present chest non-tender, lungs clear, normal breath sounds and no resp distress Comments: Pleurex drainage catheter in place Right side Cardiovascular Exam Comments: Irregularly irregular pulse, S2 +, no evident murmurs or rubs Abdominal Exam Abdominal: Present soft and normoactive bowel sounds Comments: Feeding G tube in place, site clean Rectal Exam Comments: deferred Exam Comments: deferred Extremities Exam Extremities: Present edema and pulses intact Back/Spine/Pelvis Exam Comments: NAD Skin Exam Skin: Present intact Comments: Decubitus over coccyx/sacrum Neurological Exam Comments: Altered mental status secondary to h/o multiple strokes and other comorbidities. Occasional eye tracking, no cognizant response, general weakness and not mocing any of her extremities. Incontinent of B and B Rehabilitation potential Diagnosis (1) Malignant pleural effusion: Status: Chronic (2) Altered mental status: Status: Chronic (3) CVA (cerebrovascular accident): Status: Chronic (4) Pneumonia: Status: Acute Assessment & Plan: Responding well to antibiotics 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 (7) Decubital ulcer: Status: Chronic (8) Deep venous thrombosis: Status: Chronic Qualifiers: Affected thrombotic vein of extremity: unspecified lower extremity proximal vein Chronicity: chronic DVT location: lower extremity Laterality: unspecified laterality Qualified Code(s): I82.5Y9 - Chronic embolism and thrombosis of unspecified deep veins of unspecified proximal lower extremity (9) Diastolic CHF: Status: Chronic Qualifiers: Heart failure chronicity: chronic Qualified Code(s): I50.32 - Chronic diastolic (congestive) heart failure Assessment & Plan Assessment: Pt bed bound with all above etilologies, chronic, and fully dependent for all care . Prognosis very poor. Family considering Hospice care and possible transfer closer to home at [place] if possible. 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 with the diagnosis of: Malignant Pleural Effusion; CHF diastolic; Altered mental status, chronic and multifactorial; Multiple vascular territory strokes; h/o SVT; Chronic A-Fibrillation / DVT on anticoagulants, and bed bound with Tracheostomy and feeding G tube
--- NOTE | 2024-05-30 19:10 | PC.ADMIT ---
Resident arrived to [facility] at 1645. Resident was accompanied by RT and CERAMIC CHEMIST. Resident is a&o x1. Resident is not able to make needs known. PERRLA. Ears are clear of devbris. Mouth and nose are pink and moist. No teeth noted. Gums are free from lesions, brusing or bleeding. No deviated septum noted. No JVD noted. Size 7 trache. 6, 28% for blow-by settings. No infection noted to tracheostomy. Resident is noted to have drainage system to back. 3 sutures are noted . Resident is noted to having allergic reaction to tape securing drainage system. Bony prominesces noted to both shoulders and hips. Resident is NPO, fed by GT tube. 50ml/hr of glucerna. No infection noted to GT site. Resident upper and lower extremities are impaired. 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 lesion to left forearm noted. Resident has stage 4 ulcer to sacrum. ulcer is noted to be 8cm long, 8cm wide, and 2.5cm deep. Hector catheter in place, 16fr. Shins are intact. No lower edema noted. Feet and heels are intact. Grossly normal.
[2024-05-30 20:49] VITALS: PULSE 66; RESP 18; O2SAT 98
[2024-05-30] MEDS: ATORVASTATIN 40 MG TABLET 80 MG GT (21:05)
[2024-05-30 21:06] VITALS: BP 133/67; PULSE 64
[2024-05-30] MEDS: SENNOSIDES 8.6 MG TABLET GT (21:06)
[2024-05-30] MEDS: METOPROLOL 25 MG TABLET GT (21:06)
[2024-05-31] VITALS (10 sets, daily range): BP systolic 117–150; BP diastolic 55–70; PULSE 58–75; RESP 18–24; TEMP 36.1–36.3; O2SAT 93–96; BMI 18.7
[2024-05-31] MEDS: INSULIN REGULAR, HUMAN 100 UNIT/ML VIAL SC ×3 (00:44→18:05)
[2024-05-31] MEDS: APIXABAN 2.5 MG TABLET GT (08:56)
[2024-05-31] MEDS: LACTULOSE 10 GM/15 ML SOLUTION GT (08:57)
[2024-05-31] MEDS: CALCIUM GT (08:57)
[2024-05-31] MEDS: VIT D3 GT (08:57)
[2024-05-31] MEDS: FUROSEMIDE 20 MG TABLET GT (08:57)
[2024-05-31] MEDS: SENNOSIDES 8.6 MG TABLET GT ×2 (08:57→20:44)
--- NOTE | 2024-05-31 09:29 | PC.SS ---
Resident admitted from acute care on blow by with trach in place and GT for medication and nutrition. This SSD spoke with resident son Rashel Her who is her decision maker, he stated resident is DNR with selective treatment, send out for further observation. Rashel stated he and his family had a greed to put her on resident on hospice in [place] but were unable to secure a bed at a subacute. Family agreed to bring her back down to this subacute until family can meet again and discuss comfort care. Rashel will be available for telephone conference to speak with MD about comfort care. As of now she remains DNR with selective treatment send out for further observation. Resident will not have spiritual cre visits per request of family. Resident does not have glasses or hearing device, she has absence of speech unable to make needs known. Admission packet has been reviewed and complete by BRANDON Kiser.
[2024-05-31] MEDS: ATORVASTATIN 40 MG TABLET 80 MG GT (20:44)
[2024-05-31] MEDS: METOPROLOL 25 MG TABLET GT (20:44)
[2024-06-01] VITALS (11 sets, daily range): BP systolic 107–152; BP diastolic 43–73; PULSE 59–73; RESP 16–22; TEMP 36.1–37; O2SAT 94–95
[2024-06-01] MEDS: INSULIN REGULAR, HUMAN 100 UNIT/ML VIAL SC ×2 (05:30→12:04)
[2024-06-01] MEDS: AMIODARONE 200 MG TABLET GT (08:39)
[2024-06-01] MEDS: AMLODIPINE 10 MG TABLET GT (08:39)
[2024-06-01] MEDS: VIT D3 GT (08:40)
[2024-06-01] MEDS: CALCIUM GT (08:40)
[2024-06-01] MEDS: FUROSEMIDE 20 MG TABLET GT (08:41)
[2024-06-01] MEDS: LACTULOSE 10 GM/15 ML SOLUTION GT (08:41)
[2024-06-01] MEDS: SENNOSIDES 8.6 MG TABLET GT ×2 (08:42→20:48)
[2024-06-01] MEDS: METOPROLOL 25 MG TABLET GT (08:42)
--- NOTE | 2024-06-01 12:06 | PC.SS ---
Room visit: Resident is laying in bed with head of the bed elevated with call light properly placed. Resident has no changes in care or condition, she remains on blow by with trach in place and GT for medication and nutrition. She remains DNR with selective treatment, send out for evaluation if needed until family decides to move forward with comfort care. Resident is unable to make needs known with no speech, her son Rashel is her decision maker. Resident will remain in current care and will have all subacute care needs met by staff. This SSD will continue to make contact and monitor for changes in mood and behavior.
--- NOTE | 2024-06-01 14:19 | PC.NURSE ---
Spoke with Dr levy regarding resident's discharge order for Bumex and on Lasix 20 mg. Both meds are the same but Bumex is more stronger per MD. . Continue the Lasix 2mg and not on Bumex as per .
[2024-06-01] MEDS: ATORVASTATIN 40 MG TABLET 80 MG GT (20:47)
[2024-06-02] VITALS (8 sets, daily range): BP systolic 116–125; BP diastolic 61–72; PULSE 56–71; RESP 18–19; TEMP 35.9–36.5; O2SAT 94–95
[2024-06-02] MEDS: INSULIN REGULAR, HUMAN 100 UNIT/ML VIAL SC ×3 (00:51→17:26)
[2024-06-02] MEDS: AMIODARONE 200 MG TABLET GT (08:43)
[2024-06-02] MEDS: LACTULOSE 10 GM/15 ML SOLUTION GT (08:44)
[2024-06-02] MEDS: FUROSEMIDE 20 MG TABLET GT (08:44)
[2024-06-02] MEDS: VIT D3 GT (08:44)
[2024-06-02] MEDS: AMLODIPINE 10 MG TABLET GT (08:44)
[2024-06-02] MEDS: CALCIUM GT (08:44)
[2024-06-02] MEDS: SENNOSIDES 8.6 MG TABLET GT ×2 (08:45→20:27)
[2024-06-02] MEDS: METOPROLOL 25 MG TABLET GT ×2 (08:45→20:26)
--- NOTE | 2024-06-02 20:12 | ESPR_ITS ---
Progress Note - SubAcute DIAGNOSIS (1) Malignant pleural effusion: Status: Chronic Assessment & Plan: Pleur-X drainage catheter in place to prevent reaccumulation and atelectasis with shortness of breath and discomfort. (2) Altered mental status: Status: Chronic (3) CVA (cerebrovascular accident): Status: Chronic (4) Pneumonia: Status: Acute Assessment & Plan: Treated with multiple antibiotics with good results in acute care and continued in [facility]. 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 (7) Decubital ulcer: Status: Chronic Assessment & Plan: Recently debridement done (8) Deep venous thrombosis: Status: Chronic Qualifiers: DVT location: lower extremity Affected thrombotic vein of extremity: unspecified lower extremity proximal vein Chronicity: chronic Laterality: unspecified laterality Qualified Code(s): I82.5Y9 - Chronic embolism and thrombosis of unspecified deep veins of unspecified proximal lower extremity (9) Diastolic CHF: Status: Chronic Qualifiers: Heart failure chronicity: chronic Qualified Code(s): I50.32 - Chronic diastolic (congestive) heart failure Assessment & Plan: Current treatment reviewed and continued OBJECTIVE Most recent vital signs: Last Vital Signs Temp 97.7 F 06/02/24 18:00 Pulse 56 L 06/02/24 18:00 Resp 19 06/02/24 18:00 BP 121/71 06/02/24 18:00 Pulse Ox 94 L 06/02/24 18:00 O2 Del Method Blow-by 06/02/24 06:00 O2 Flow Rate 6 06/02/24 07:30 FiO2 28 06/02/24 07:30 Neurological:: PVS (spontaneous eye opening but no cognizant response to simple commands) Speech:: none Answers questions:: no Respiratory:: shallow breathing Cardiovascular: irregular Abdomen: soft Extremities:: deformities Decubitus:: unchanged Tracheostomy:: to blow by Complaints:: none ASSESSMENT & PLAN Assessment: Pt bed bound with all above etilologies, chronic, and fully dependent for all care . Prognosis very poor. Family considering Hospice care and possible transfer closer to home at [place] if possible. Current medications reviewed and continued as ongoing from the previous facility and reassess
[2024-06-02] MEDS: ATORVASTATIN 40 MG TABLET 80 MG GT (20:26)
[2024-06-03] VITALS (7 sets, daily range): BP systolic 108–148; BP diastolic 52–65; PULSE 65–74; RESP 18–21; TEMP 37–37.2; O2SAT 94–96
[2024-06-03] MEDS: INSULIN REGULAR, HUMAN 100 UNIT/ML VIAL SC ×3 (00:19→17:38)
[2024-06-03] MEDS: AMIODARONE 200 MG TABLET GT (08:26)
[2024-06-03] MEDS: AMLODIPINE 10 MG TABLET GT (08:26)
[2024-06-03] MEDS: CALCIUM GT (08:27)
[2024-06-03] MEDS: FUROSEMIDE 20 MG TABLET GT (08:27)
[2024-06-03] MEDS: LACTULOSE 10 GM/15 ML SOLUTION GT (08:27)
[2024-06-03] MEDS: VIT D3 GT (08:27)
[2024-06-03] MEDS: SENNOSIDES 8.6 MG TABLET GT ×2 (08:28→20:46)
[2024-06-03] MEDS: METOPROLOL 25 MG TABLET GT (08:28)
[2024-06-03] MEDS: ATORVASTATIN 40 MG TABLET 80 MG GT (20:46)
[2024-06-04] VITALS (11 sets, daily range): BP systolic 119–137; BP diastolic 59–70; PULSE 65–84; RESP 16–20; TEMP 35.9–36.8; O2SAT 95–98
[2024-06-04] MEDS: INSULIN REGULAR, HUMAN 100 UNIT/ML VIAL SC ×3 (00:38→11:52)
[2024-06-04] MEDS: AMIODARONE 200 MG TABLET GT (08:49)
[2024-06-04] MEDS: AMLODIPINE 10 MG TABLET GT (08:50)
[2024-06-04] MEDS: CALCIUM GT (08:50)
[2024-06-04] MEDS: FUROSEMIDE 20 MG TABLET GT (08:50)
[2024-06-04] MEDS: VIT D3 GT (08:50)
[2024-06-04] MEDS: LACTULOSE 10 GM/15 ML SOLUTION GT (08:50)
[2024-06-04] MEDS: SENNOSIDES 8.6 MG TABLET GT ×2 (08:51→21:50)
[2024-06-04] MEDS: METOPROLOL 25 MG TABLET GT ×2 (08:51→21:50)
[2024-06-04] MEDS: ATORVASTATIN 40 MG TABLET 80 MG GT (21:50)
[2024-06-05] VITALS (11 sets, daily range): BP systolic 101–137; BP diastolic 53–66; PULSE 61–93; RESP 16–20; TEMP 36.3–36.6; O2SAT 95–98
[2024-06-05] MEDS: INSULIN REGULAR, HUMAN 100 UNIT/ML VIAL SC ×3 (00:06→23:33)
[2024-06-05] MEDS: AMIODARONE 200 MG TABLET GT (08:33)
[2024-06-05] MEDS: VIT D3 GT (08:35)
[2024-06-05] MEDS: CALCIUM GT (08:35)
[2024-06-05] MEDS: FUROSEMIDE 20 MG TABLET GT (08:35)
[2024-06-05] MEDS: LACTULOSE 10 GM/15 ML SOLUTION GT (08:36)
[2024-06-05] MEDS: SENNOSIDES 8.6 MG TABLET GT ×2 (08:37→20:51)
--- NOTE | 2024-06-05 16:08 | PC.IP ---
At 1550 spoke with Rashel, son of resident and RP. He expressed that he does not want the resident to have any further vaccines at this time. Physicians in acute care stay have spoken with family regarding this resident's condition and progmosis.
[2024-06-05] MEDS: IPRATROPIUM/ALBUTEROL 3 ML AMPUL.NEB INH (20:42)
[2024-06-05] MEDS: METOPROLOL 25 MG TABLET GT (20:50)
[2024-06-05] MEDS: ASCORBIC ACID 500 MG TABLET GT (20:50)
[2024-06-05] MEDS: ATORVASTATIN 40 MG TABLET 80 MG GT (20:50)
[2024-06-06] VITALS (9 sets, daily range): BP systolic 115–132; BP diastolic 50–77; PULSE 64–77; RESP 16–20; TEMP 36.1–36.9; O2SAT 96–100
[2024-06-06] MEDS: INSULIN REGULAR, HUMAN 100 UNIT/ML VIAL SC ×4 (05:32→23:33)
[2024-06-06] MEDS: AMIODARONE 200 MG TABLET GT (08:48)
[2024-06-06] MEDS: AMLODIPINE 10 MG TABLET GT (08:48)
[2024-06-06] MEDS: VIT D3 GT (08:49)
[2024-06-06] MEDS: CALCIUM GT (08:49)
[2024-06-06] MEDS: FUROSEMIDE 20 MG TABLET GT (08:49)
[2024-06-06] MEDS: ASCORBIC ACID 500 MG TABLET GT ×2 (08:49→20:48)
[2024-06-06] MEDS: METOPROLOL 25 MG TABLET GT ×2 (08:50→20:48)
[2024-06-06] MEDS: SENNOSIDES 8.6 MG TABLET GT ×2 (08:51→20:48)
[2024-06-06] MEDS: MULTIVITAMIN 1 TAB TABLET GT (08:51)
[2024-06-06] MEDS: ZINC SULFATE 50 MG CAPSULE GT (08:56)
--- NOTE | 2024-06-06 13:10 | ESPR_ITS ---
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 (7) Decubital ulcer: Status: Chronic (8) Deep venous thrombosis: Status: Chronic Qualifiers: Affected thrombotic vein of extremity: unspecified lower extremity proximal vein Chronicity: chronic DVT location: lower extremity Laterality: unspecified laterality Qualified Code(s): I82.5Y9 - Chronic embolism and thrombosis of unspecified deep veins of unspecified proximal lower extremity (9) Diastolic CHF: Status: Chronic Qualifiers: Heart failure chronicity: chronic Qualified Code(s): I50.32 - Chronic diastolic (congestive) heart failure OBJECTIVE Most recent vital signs: Last Vital Signs Temp 103.5 F H 06/08/24 21:03 Pulse 118 H 06/08/24 21:03 Resp 33 H 06/08/24 20:16 BP 122/72 06/08/24 21:03 Pulse Ox 96 06/08/24 20:16 O2 Del Method Blow-by 06/08/24 16:52 O2 Flow Rate 12 06/08/24 20:16 FiO2 50 06/08/24 20:16 Neurological:: PVS (spontaneous eye opening but no cognizant response to simple commands) Speech:: none Answers questions:: no Respiratory:: shallow breathing Cardiovascular: irregular Abdomen: soft Extremities:: deformities Decubitus:: unchanged Tracheostomy:: to blow by Complaints:: none ASSESSMENT & PLAN Assessment: Pt bed bound with all above etilologies, chronic, and fully dependent for all care . Prognosis very poor. Family considering Hospice care and possible transfer closer to home at [place] if possible. Current medications reviewed and continued as ongoing from the previous facility and reassess . VSS Plan: Maintain all support with objective of ensuring comfort.
[2024-06-06] MEDS: ATORVASTATIN 40 MG TABLET 80 MG GT (20:48)
[2024-06-07] VITALS (9 sets, daily range): BP systolic 102–122; BP diastolic 57–67; PULSE 71–88; RESP 18–22; TEMP 36.2–36.4; O2SAT 92–96; BMI 19.4
[2024-06-07] MEDS: INSULIN REGULAR, HUMAN 100 UNIT/ML VIAL SC ×3 (05:34→17:38)
[2024-06-07 07:32] LABS: Basophils # (Auto) 0.1 Thou/mm3 (0.0-0.2); Basophils % (Auto) 0 % (0-2.5); Eosinophils # (Auto) 0.2 Thou/mm3 (0.0-0.5); Eosinophils % (Auto) 1 % (0-10); Hematocrit 29.2 % (36.0-46.0); Hemoglobin 9.6 g/dL (12.0-16.0); Immature Granulocytes Auto 0.09 Thou/mm3 (0.00-0.00); Lymphocytes # (Auto) 1.7 Thou/mm3 (1.0-4.8); Lymphocytes % (Auto) 9 % (10-50); Mean Corpuscular HGB Conc 32.9 g/dl (31.0-37.0); Mean Corpuscular Hemoglobin 27.8 pg (25.0-35.0); Mean Corpuscular Volume 85 fL (80-100); Monocytes # (Auto) 1.5 Thou/mm3 (0.0-0.8); Monocytes % (Auto) 8 % (0-12); Neutrophils # (Auto) 15.0 Thou/mm3 (1.8-7.7); Neutrophils % (Auto) 81 % (37-80); Nucleated Red Blood Cell # 0.00 Thou/mm3 (0.00-0.00); Nucleated Red Blood Cell % 0 /100 WBC (0); Platelet Count 440 Thou/mm3 (140-440); RDW Standard Deviation 46.3 fL (36.4-46.3); Red Blood Count 3.45 Miln/mm3 (4.00-5.20); White Blood Count 18.5 Thou/mm3 (3.6-11.0)
[2024-06-07 07:50] LABS: Alanine Aminotransferase 21 U/L (10-49); Albumin, Serum 3.1 gm/dL (3.4-4.8); Albumin/Globulin Ratio 0.9 (1.2-2.2); Alkaline Phosphatase 81 U/L (46-116); Anion Gap 8 (7-16); Aspartate Amino Transferase 22 U/L (0-34); BUN/Creatinine Ratio 41 Ratio (12-20); Bilirubin,Total 0.4 mg/dL (0.3-1.2); Blood Urea Nitrogen 37 mg/dL (9-23); Calcium 8.4 mg/dL (8.3-10.6); Calcium (Corrected) 9.1 mg/dL (8.5-10.1); Carbon Dioxide 32.8 mMol/L (20.0-31.0); Chloride 89 mMol/L (98-107); Creatinine (Component) 0.9 mg/dL (0.6-1.3); Estimated Creatinine Clearance 33.7 mL/min (>60); Globulin 3.3 gm/dL (2.3-3.5); Glucose 153 mg/dL (74-106); Osmolality,Calculated 272 (275-295); Potassium 4.6 mMol/L (3.4-5.1); Sodium 130 mMol/L (136-145); Total Protein 6.4 gm/dL (5.7-8.2); eGFR > 60 See Note
[2024-06-07] MEDS: AMIODARONE 200 MG TABLET GT (08:47)
[2024-06-07] MEDS: AMLODIPINE 10 MG TABLET GT (08:48)
[2024-06-07] MEDS: CALCIUM GT (08:49)
[2024-06-07] MEDS: ASCORBIC ACID 500 MG TABLET GT ×2 (08:49→21:39)
[2024-06-07] MEDS: VIT D3 GT (08:49)
[2024-06-07] MEDS: LACTULOSE 10 GM/15 ML SOLUTION GT (08:51)
[2024-06-07] MEDS: MULTIVITAMIN 1 TAB TABLET GT (08:52)
[2024-06-07] MEDS: METOPROLOL 25 MG TABLET GT (08:52)
[2024-06-07] MEDS: SENNOSIDES 8.6 MG TABLET GT ×2 (08:53→21:39)
[2024-06-07] MEDS: ZINC SULFATE 50 MG CAPSULE GT (08:57)
[2024-06-07] MEDS: FUROSEMIDE 20 MG TABLET GT (09:02)
--- NOTE | 2024-06-07 19:54 | PC.NURSE ---
made aware of Hgb results, new order to DC Eliquis due to the complications outweighing the benefits of the medication, resident representative phlebotomy services Kristyverenice Her made aware and all questions answered, son aware of side effects of medication, resident in room resting, HOB elevated, no s/s of distress at this time.
[2024-06-07] MEDS: ATORVASTATIN 40 MG TABLET 80 MG GT (21:39)
[2024-06-08] VITALS (8 sets, daily range): BP systolic 104–144; BP diastolic 53–73; PULSE 72–118; RESP 17–33; TEMP 36.4–39.7; O2SAT 95–99
[2024-06-08] MEDS: INSULIN REGULAR, HUMAN 100 UNIT/ML VIAL SC ×4 (00:17→17:01)
[2024-06-08] MEDS: AMIODARONE 200 MG TABLET GT (08:36)
[2024-06-08] MEDS: CALCIUM GT (08:37)
[2024-06-08] MEDS: VIT D3 GT (08:37)
[2024-06-08] MEDS: ASCORBIC ACID 500 MG TABLET GT ×2 (08:37→21:03)
[2024-06-08] MEDS: AMLODIPINE 10 MG TABLET GT (08:37)
[2024-06-08] MEDS: LACTULOSE 10 GM/15 ML SOLUTION GT (08:37)
[2024-06-08] MEDS: FUROSEMIDE 20 MG TABLET GT (08:37)
[2024-06-08] MEDS: METOPROLOL 25 MG TABLET GT ×2 (08:37→21:03)
[2024-06-08] MEDS: SENNOSIDES 8.6 MG TABLET GT ×2 (08:38→21:03)
[2024-06-08] MEDS: MULTIVITAMIN 1 TAB TABLET GT (08:38)
[2024-06-08] MEDS: ACETAMINOPHEN 325 MG TABLET GT ×2 (08:40→21:03)
[2024-06-08] MEDS: ZINC SULFATE 50 MG CAPSULE GT (08:40)
[2024-06-08] MEDS: SODIUM CHLORIDE TAB 1,000 MG TABLET.SOL 1000 MG GT (08:40)
--- NOTE | 2024-06-08 14:35 | PC.SS ---
Room visit: Resident is laying in bed with head of the bed elevated with call light properly placed with no signs of distress. Resident has no changes in condition, remains on blow by with trach in place and GT for medication and nutrition. Resident is unable to make needs known, her decision maker is her son. Resident will remain in current care and will continue to have all subacute care needs met by staff. This SSD will make daily contact with resident and will monitor for changes in mood and behavior
[2024-06-08] MEDS: IPRATROPIUM/ALBUTEROL 3 ML AMPUL.NEB INH (20:16)
[2024-06-08] MEDS: ATORVASTATIN 40 MG TABLET 80 MG GT (21:03)
--- NOTE | 2024-06-08 22:30 | PC.NURSE ---
DR. POND WAS NOTIFIED OF RESIDENT TEMP RECTALLY 103.5, DESATURATION 80S WITH LABORED BREATHING, INCREASED FI02 TO 50%. ORDERED TO SEND RESIDENT TO ER FOR FURTHER EVALUATION. SENT ER VIA BED WITH RT @ [id number]. GIVEN REPORT TO HUMBERTO.
--- NOTE | 2024-06-14 19:20 | ESPR_ITS ---
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 (7) Decubital ulcer: Status: Chronic (8) Deep venous thrombosis: Status: Chronic Qualifiers: DVT location: lower extremity Affected thrombotic vein of extremity: unspecified lower extremity proximal vein Chronicity: chronic Laterality: unspecified laterality Qualified Code(s): I82.5Y9 - Chronic embolism and thrombosis of unspecified deep veins of unspecified proximal lower extremity (9) Diastolic CHF: Status: Chronic Qualifiers: Heart failure chronicity: chronic Qualified Code(s): I50.32 - Chronic diastolic (congestive) heart failure OBJECTIVE Most recent vital signs: Last Vital Signs Temp 103.5 F H 06/08/24 21:03 Pulse 118 H 06/08/24 21:03 Resp 33 H 06/08/24 20:16 BP 122/72 06/08/24 21:03 Pulse Ox 96 06/08/24 20:16 O2 Del Method Blow-by 06/08/24 16:52 O2 Flow Rate 12 06/08/24 20:16 FiO2 50 06/08/24 20:16 Neurological:: PVS (spontaneous eye opening but no cognizant response to simple commands) Speech:: none Answers questions:: no Respiratory:: shallow breathing Cardiovascular: irregular Abdomen: soft Extremities:: deformities Decubitus:: unchanged Tracheostomy:: to blow by Complaints:: none ASSESSMENT & PLAN Assessment: Pt bed bound with all above etilologies, chronic, and fully dependent for all care . Prognosis very poor. Family considering Hospice care and possible transfer closer to home at [place] if possible. Current medications reviewed and continued as ongoing from the previous facility and reassess . VSS Plan: Maintain all support with objective of ensuring comfort.
--- NOTE | 2024-06-15 16:30 | ESDS_ITS ---
<Statement entered by Marlena Minaya DO - 06/16/24 08:36> I, Marlena Minaya DO, attest that I was physically present for the tapia portions of the service and evaluated the patient with the resident and I reviewed and discussed the case with the resident and agree with the resident's findings and plans of care as documented above Planned Discharge Date 06/15/24 DS: Providers Provider Date of admission: 05/30/24 16:45 Primary care physician: Physician No Primary/Family Admitting Provider: Misha Hernandez MD Attending Provider on Admission: Misha Hernandez MD Consults: 06/05/24 15:45 Referral Nutritional Services Routine Comment: 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 Due to patient being nonverbal, most of the history was gathered through the chart review. In the ED she was septic, febrile, tachycardic, tachypneic, saturation 90% on 40% FiO2 blow-by. Labs showed leukocytosis 16.4, hemoglobin 8.8, troponin 0.190. UA was negative for UTI. Patient was admitted for treatment and management sepsis secondary to pneumonia. She was started on antibiotics, CT showed significant bilateral pleural effusion. Patient had a Pleurx catheter placed during her previous admission on the right side, 1 L of yellow fluid was drained on 06/10/2024. Repeat chest x-ray showed significant improvement in the right-sided pleural effusion, negative for pneumothorax. IR guided left-sided Pleurx catheter placement was ordered, was unsuccessful after 2 attempts. Patient's oxygen requirements has gone down, she was afebrile. Had a discussion with the family member, decision made maker Her Xai regarding poor prognosis and overall serious condition that could lead to the demise in the nearby future, explained about the option of comfort care, decision maker said that he needs to talk to the family regarding that decision. Patient has finished antibiotics course, was seen and examined at the bedside and was medically cleared for discharge back to the subacute facility with recommendations. Discharge recommendations: Patient is stable to discharged back to subacute. If there is a change in her respiratory status patient can be sent to the ER and we recommend drainage of PleurX catheters as she has a recurrent malignant effusions. For Pleurx drainage instructions: [email or web address]- [email or web address]/documents/ [email or web address]% 20-%20Peri tX%20wall%[email or web address]%28English% 29.pdf Wound care: 1) Right flank surgical incision: cleanse with wound cleanser, pat dry, apply skin prep and cover with rectangle single layer foam allevyn dressing cut with split for tubing. Ensure remaining tubing padded to not cause skin breakdown. Change q3d/PRN for soiling or falling off. 2) Sacral stage 4: irrigate with normal saline, pat dry, fill wound with iodosorb gel. Skin prep to wound edges and secure with allyven dressing. Change q2d and PRN for falling off or soiling Side to side repositioning as tolerated. Pleurx catheter draining: * Set up a clean area to open supplies. * Wash your hands and put on gloves. * Clamp the rolling clamp on the catheter to close it. * Remove the old cap on the catheter and throw it out. * Hold the catheter with one hand and clean the end of it with an alcohol swab with the other hand. * Insert this drainage line into the cleaned end of the PleurX? catheter. * Push the white plunger into the bottle top. Undo the clamp on the PleurX? catheter line. * You can slow down the flow by rolling the clamp on the catheter line. * Do not drain more than 1L of fluid. * Once you are done draining, clamp the roller closed on the catheter. * Remove the drainage line that is connected to the bottle. * Clean the end of the catheter again with an alcohol swab. * Place a new cap on the end of the catheter. -Take the rest of the medications as prescribed Hospital diagnoses: #Acute hypoxic respiratory failure 2/2 #Sepsis secondary to pneumonia #Bilateral pleural effusions #VAP Pneumonia #Chronic tracheostomy #Suspected malignancy #Essential hypertension #Atrial fibrillation #NSTEMI likely type II #Hyperlipidemia #IDDM type II #Deep sacral ulcer #Chronic constipation #Chronic PEG tube Plan of care discussed with attending Dr. Minaya and PGY-[address] Farah. Amarilys Valdez MD, PGY 1. Time Spent with Patient Time attestation: Total time spent providing and/or coordinating discharge services: Time spent: Greater than 30 minutes Exam Vital Signs Temp Pulse Resp BP Pulse Ox O2 Del Method O2 Flow Rate 103.5 F H 118 H 33 H 122/72 96 Blow-by 12 06/08/24 21:03 06/08/24 21:03 06/08/24 20:16 06/08/24 21:03 06/08/24 20:16 06/08/24 16:52 06/08/24 20:16 FiO2 50 06/08/24 20:16 Narrative Exam Physical Exam General: Awake and in no acute distress. Nonverbal (tracheostomy). HEENT: Normocephalic, atraumatic, mucous membranes moist. Heart: Regular rate and rhythm, no murmurs. Lungs: Diffuse rhonchi. Respiratory sounds are decreased in the lower chest area, more on the left. Pleurx cath site unremarkable. Abdomen: Soft, nondistended, nontender, positive bowel sounds. ?No guarding or rebound tenderness. Neurologic: Alert and oriented x0, no gross neurological deficit, does not follow commands. Extremities: No edema. Skin: No rash or ecchymoses. Discharge Plan Plan Patient Disposition: Xfer [facility] Prescriptions/Referrals Prescriptions/Med Rec: No Action magnesium hydroxide [Milk of Magnesia] 400 mg/5 mL suspension 30 ml PO QDAY PRN (Reason: constipation) polyethylene glycol 3350 [Miralax] 17 gram/dose powder 17 g feeding tube QDAY furosemide 20 mg tablet 20 mg feeding tube QDAY ascorbic acid (vitamin C) [Vitamin C] 500 mg tablet 500 mg feeding tube BID multivitamin [Daily Multi-Vitamin] Tablet 1 tab feeding tube QAM zinc sulfate 50 mg zinc (220 mg) capsule 50 mg feeding tube QDAY sodium chloride 1,000 mg tablet,soluble 1,000 mg feeding tube QDAY carbamide peroxide 6.5 % drops 5 drp otic (ear) .Q61 atorvastatin 80 mg tablet 80 mg feeding tube HS acetaminophen 325 mg tablet 325 mg feeding tube Q6H PRN (Reason: fever or pain) ipratropium-albuterol 0.5 mg-3 mg(2.5 mg base)/3 mL solution for nebulization 3 ml INHALATION Q6H PRN (Reason: shortness of breath) amiodarone 200 mg tablet 200 mg feeding tube DAILY amlodipine 10 mg tablet 10 mg feeding tube QDAY bisacodyl [Gentle Laxative (bisacodyl)] 5 mg tablet,delayed release (DR/EC) 10 mg feeding tube Q6H PRN (Reason: constipation) Novolin R FlexPen 100 unit/mL (3 mL) insulin pen 1 sliding scale dose SUBCUT Q6H metoprolol tartrate 25 mg tablet 25 mg feeding tube Q12H lactulose [Enulose] 10 gram/15 mL solution 10 g feeding tube Q6H sennosides [Black-Draught Lax-Senna] 8.6 mg tablet 8.6 mg feeding tube BID Calcium 600 + D(3) 600 mg-5 mcg (200 unit) capsule 1 cap PO DAILY Rx Instructions: per Peg tube Referrals: No Primary/Family,Physician [Primary Care Provider] - Patient/Caregiver Discharge Instructions Print Language: Mark Stand Alone Forms: Rani Award Info., Patient Portal Info Letter Quality Discharge Quality Measures VTE prophylaxis
--- NOTE | 2024-06-15 18:09 | PC.NURSE ---
Resident came back at around 15:23, awake, no s/s of respiratory distress noted.No s/s of pain or discomfort . Resident was supposed to have left pleurex catheter placement but wasn't able to place it because it is close to her heart per report. Resident with right pleurex in place which will be used if needed. Resident is on fluid restriction of 1500 ml/day. Spoke with RD and jacques to give 750 ml maximum each shift and continue the previous tube feeding order of glucerna at 55 ml/hr x 22.Tried to call resident efrem Joaquin but unable to get hold of him. Left message on his voicemail.
--- NOTE | 2024-06-15 20:00 | PD.SAPROG ---
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 (7) Decubital ulcer: Status: Chronic (8) Deep venous thrombosis: Status: Chronic Qualifiers: DVT location: lower extremity Affected thrombotic vein of extremity: unspecified lower extremity proximal vein Chronicity: chronic Laterality: unspecified laterality Qualified Code(s): I82.5Y9 - Chronic embolism and thrombosis of unspecified deep veins of unspecified proximal lower extremity (9) Diastolic CHF: Status: Chronic Qualifiers: Heart failure chronicity: chronic Qualified Code(s): I50.32 - Chronic diastolic (congestive) heart failure OBJECTIVE Most recent vital signs: Last Vital Signs Temp 97.7 F 06/17/24 16:48 Pulse 18 L 06/17/24 16:48 Resp 18 06/17/24 16:48 BP 147/69 H 06/17/24 16:48 Pulse Ox 98 06/17/24 06:30 O2 Del Method Blow-by 06/08/24 16:52 O2 Flow Rate 6 06/17/24 06:30 FiO2 28 06/17/24 06:30 Neurological:: PVS (spontaneous eye opening but no cognizant response to simple commands) Speech:: none Answers questions:: no Respiratory:: shallow breathing Cardiovascular: irregular Abdomen: soft Extremities:: deformities Decubitus:: unchanged Tracheostomy:: to blow by Complaints:: none ASSESSMENT & PLAN Assessment: Pt bed bound with all above etilologies, chronic, and fully dependent for all care . Prognosis very poor. Family considering Hospice care and possible transfer closer to home at [place] if possible. From 06-08-24 to 06-15-24 pt was in Acute Hospital for re-accumulation of Malignant Pleural effusion and requiring drainage for comfort. Current medications reviewed and continued as ongoing. VSS Plan: Maintain all support with objective of ensuring comfort.
[2024-06-15 20:17] VITALS: BP 138/81; PULSE 83
[2024-06-15] MEDS: METOPROLOL 25 MG TABLET GT (20:17)
[2024-06-15] MEDS: SENNOSIDES 8.6 MG TABLET GT (20:18)
[2024-06-15] MEDS: ATORVASTATIN 40 MG TABLET 80 MG GT (20:18)
[2024-06-16] MEDS: INSULIN REGULAR, HUMAN 100 UNIT/ML VIAL SC ×3 (00:34→17:18)
[2024-06-16 03:07] VITALS: PULSE 70; RESP 16; O2SAT 96
[2024-06-16 06:32] VITALS: PULSE 76; RESP 18; O2SAT 97
[2024-06-16 08:25] VITALS: BP 99/62; PULSE 81
[2024-06-16] MEDS: AMIODARONE 200 MG TABLET GT (08:25)
[2024-06-16 08:26] VITALS: BP 99/62; PULSE 81
[2024-06-16] MEDS: FUROSEMIDE 20 MG TABLET GT (08:27)
[2024-06-16] MEDS: VIT D3 GT (08:27)
[2024-06-16] MEDS: ASCORBIC ACID 500 MG TABLET GT ×2 (08:27→20:25)
[2024-06-16] MEDS: CALCIUM GT (08:27)
[2024-06-16 08:28] VITALS: BP 99/62; PULSE 81
[2024-06-16] MEDS: LACTULOSE 10 GM/15 ML SOLUTION GT (08:28)
[2024-06-16] MEDS: ZINC SULFATE 50 MG CAPSULE GT (08:29)
[2024-06-16] MEDS: SENNOSIDES 8.6 MG TABLET GT ×2 (08:29→20:27)
[2024-06-16] MEDS: MULTIVITAMIN 1 TAB TABLET GT (08:29)
[2024-06-16] MEDS: SODIUM CHLORIDE TAB 1,000 MG TABLET.SOL 1000 MG GT (08:30)
[2024-06-16] MEDS: ACETAMINOPHEN 325 MG TABLET GT (20:20)
[2024-06-16 20:27] VITALS: BP 128/59; PULSE 75
[2024-06-16] MEDS: METOPROLOL 25 MG TABLET GT (20:27)
[2024-06-16] MEDS: ATORVASTATIN 40 MG TABLET 80 MG GT (20:27)
[2024-06-17] VITALS (8 sets, daily range): BP systolic 107–147; BP diastolic 64–69; PULSE 18–74; RESP 16–18; TEMP 36.3–36.5; O2SAT 96–98
[2024-06-17] MEDS: INSULIN REGULAR, HUMAN 100 UNIT/ML VIAL SC ×5 (00:15→23:45)
[2024-06-17] MEDS: AMIODARONE 200 MG TABLET GT (08:17)
[2024-06-17] MEDS: VIT D3 GT (08:18)
[2024-06-17] MEDS: CALCIUM GT (08:18)
[2024-06-17] MEDS: ASCORBIC ACID 500 MG TABLET GT ×2 (08:18→21:20)
[2024-06-17] MEDS: FUROSEMIDE 20 MG TABLET GT (08:19)
[2024-06-17] MEDS: LACTULOSE 10 GM/15 ML SOLUTION GT (08:19)
[2024-06-17] MEDS: SENNOSIDES 8.6 MG TABLET GT ×2 (08:22→21:21)
[2024-06-17] MEDS: ZINC SULFATE 50 MG CAPSULE GT (08:22)
[2024-06-17] MEDS: MULTIVITAMIN 1 TAB TABLET GT (08:22)
[2024-06-17] MEDS: SODIUM CHLORIDE TAB 1,000 MG TABLET.SOL 1000 MG GT (08:25)
[2024-06-17] MEDS: METOPROLOL 25 MG TABLET GT (21:20)
[2024-06-17] MEDS: ATORVASTATIN 40 MG TABLET 80 MG GT (21:21)
[2024-06-18] VITALS (9 sets, daily range): BP systolic 99–161; BP diastolic 54–75; PULSE 64–90; RESP 16–26; TEMP 35.9–36.3; O2SAT 94–99; BMI 19.1
[2024-06-18] MEDS: INSULIN REGULAR, HUMAN 100 UNIT/ML VIAL SC ×4 (05:57→23:37)
[2024-06-18] MEDS: AMIODARONE 200 MG TABLET GT (08:34)
[2024-06-18] MEDS: VIT D3 GT (08:35)
[2024-06-18] MEDS: ASCORBIC ACID 500 MG TABLET GT ×2 (08:35→20:51)
[2024-06-18] MEDS: CALCIUM GT (08:35)
[2024-06-18] MEDS: FUROSEMIDE 20 MG TABLET GT (08:36)
[2024-06-18] MEDS: LACTULOSE 10 GM/15 ML SOLUTION GT (08:36)
[2024-06-18] MEDS: ZINC SULFATE 50 MG CAPSULE GT (08:38)
[2024-06-18] MEDS: MULTIVITAMIN 1 TAB TABLET GT (08:38)
[2024-06-18] MEDS: SENNOSIDES 8.6 MG TABLET GT ×2 (08:38→20:51)
[2024-06-18] MEDS: SODIUM CHLORIDE TAB 1,000 MG TABLET.SOL 1000 MG GT (08:39)
[2024-06-18 09:06] LABS: Basophils # (Auto) 0.0 Thou/mm3 (0.0-0.2); Basophils % (Auto) 0 % (0-2.5); Eosinophils # (Auto) 0.3 Thou/mm3 (0.0-0.5); Eosinophils % (Auto) 2 % (0-10); Hematocrit 25.8 % (36.0-46.0); Immature Granulocytes Auto 0.15 Thou/mm3 (0.00-0.00); Lymphocytes # (Auto) 1.8 Thou/mm3 (1.0-4.8); Lymphocytes % (Auto) 10 % (10-50); Mean Corpuscular HGB Conc 32.2 g/dl (31.0-37.0); Mean Corpuscular Hemoglobin 27.4 pg (25.0-35.0); Mean Corpuscular Volume 85 fL (80-100); Monocytes # (Auto) 1.0 Thou/mm3 (0.0-0.8); Monocytes % (Auto) 6 % (0-12); Neutrophils # (Auto) 14.3 Thou/mm3 (1.8-7.7); Neutrophils % (Auto) 81 % (37-80); Nucleated Red Blood Cell # 0.00 Thou/mm3 (0.00-0.00); Nucleated Red Blood Cell % 0 /100 WBC (0); Platelet Count 428 Thou/mm3 (140-440); RDW Standard Deviation 46.9 fL (36.4-46.3); Red Blood Count 3.03 Miln/mm3 (4.00-5.20); White Blood Count 17.6 Thou/mm3 (3.6-11.0)
[2024-06-18 09:09] LABS: Hemoglobin 8.3 g/dL (12.0-16.0)
[2024-06-18 09:24] LABS: Alanine Aminotransferase 32 U/L (10-49); Albumin, Serum 3.1 gm/dL (3.4-4.8); Albumin/Globulin Ratio 0.9 (1.2-2.2); Alkaline Phosphatase 68 U/L (46-116); Anion Gap 7 (7-16); Aspartate Amino Transferase 19 U/L (0-34); BUN/Creatinine Ratio 48 Ratio (12-20); Bilirubin,Total 0.3 mg/dL (0.3-1.2); Blood Urea Nitrogen 38 mg/dL (9-23); Calcium 9.0 mg/dL (8.3-10.6); Calcium (Corrected) 9.7 mg/dL (8.5-10.1); Carbon Dioxide 33.3 mMol/L (20.0-31.0); Chloride 96 mMol/L (98-107); Creatinine (Component) 0.8 mg/dL (0.6-1.3); Estimated Creatinine Clearance 39.3 mL/min (>60); Globulin 3.5 gm/dL (2.3-3.5); Glucose 208 mg/dL (74-106); Osmolality,Calculated 286 (275-295); Potassium 4.6 mMol/L (3.4-5.1); Sodium 136 mMol/L (136-145); Total Protein 6.6 gm/dL (5.7-8.2); eGFR > 60 See Note
--- NOTE | 2024-06-18 14:58 | PC.NURSE ---
Resident has pleural clear tubing to rt side of torso. Resident was sent to our unit with this tubing capped used in acute care during her time up there. Notified MD Hernandez if there was an specific order to monitor this tubing. Stated only if resident becomes SOB or any respiratory distress , he will order chest Xray and transfer resident out to acute care if needed. Resident remains stable at this time no SOB noted. Respirations even and unlabored. Will continue to monitor.
--- NOTE | 2024-06-18 19:32 | PD.SAPROG ---
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 (7) Decubital ulcer: Status: Chronic (8) Deep venous thrombosis: Status: Chronic Qualifiers: DVT location: lower extremity Affected thrombotic vein of extremity: unspecified lower extremity proximal vein Chronicity: chronic Laterality: unspecified laterality Qualified Code(s): I82.5Y9 - Chronic embolism and thrombosis of unspecified deep veins of unspecified proximal lower extremity (9) Diastolic CHF: Status: Chronic Qualifiers: Heart failure chronicity: chronic Qualified Code(s): I50.32 - Chronic diastolic (congestive) heart failure OBJECTIVE Most recent vital signs: Last Vital Signs Temp 97.4 F 06/18/24 18:00 Pulse 72 06/18/24 18:00 Resp 26 H 06/18/24 18:00 BP 161/75 H 06/18/24 18:00 Pulse Ox 97 06/18/24 18:00 O2 Del Method Blow-by 06/18/24 05:53 O2 Flow Rate 6 06/18/24 07:45 FiO2 28 06/18/24 07:45 Neurological:: PVS (spontaneous eye opening but no cognizant response to simple commands) Speech:: none Answers questions:: no Respiratory:: shallow breathing Cardiovascular: irregular Abdomen: soft Extremities:: deformities Decubitus:: unchanged Tracheostomy:: to blow by Complaints:: none ASSESSMENT & PLAN Assessment: Pt bed bound with all above etilologies, chronic, and fully dependent for all care . Prognosis very poor. Family considering Hospice care and possible transfer closer to home at [place] if possible. From 06-08-24 to 06-15-24 pt was in Acute Hospital for re-accumulation of Malignant Pleural effusion and requiring drainage for comfort. Current medications reviewed and continued as ongoing. VSS. No distress Plan: Maintain all support with objective of ensuring comfort.
[2024-06-18] MEDS: ATORVASTATIN 40 MG TABLET 80 MG GT (20:51)
[2024-06-18] MEDS: METOPROLOL 25 MG TABLET GT (20:51)
[2024-06-19] VITALS (7 sets, daily range): BP systolic 111–153; BP diastolic 62–76; PULSE 65–73; RESP 17–18; TEMP 35.9–36.1; O2SAT 98
[2024-06-19] MEDS: INSULIN REGULAR, HUMAN 100 UNIT/ML VIAL SC ×4 (05:46→23:57)
[2024-06-19] MEDS: AMIODARONE 200 MG TABLET GT (08:36)
[2024-06-19] MEDS: ASCORBIC ACID 500 MG TABLET GT ×2 (08:38→20:27)
[2024-06-19] MEDS: VIT D3 GT (08:39)
[2024-06-19] MEDS: METOPROLOL 25 MG TABLET GT ×2 (08:39→20:27)
[2024-06-19] MEDS: CALCIUM GT (08:39)
[2024-06-19] MEDS: FUROSEMIDE 20 MG TABLET GT (08:39)
[2024-06-19] MEDS: AMLODIPINE 10 MG TABLET GT (08:39)
[2024-06-19] MEDS: LACTULOSE 10 GM/15 ML SOLUTION GT (08:39)
[2024-06-19] MEDS: MULTIVITAMIN 1 TAB TABLET GT (08:40)
[2024-06-19] MEDS: SENNOSIDES 8.6 MG TABLET GT ×2 (08:41→20:29)
[2024-06-19] MEDS: ZINC SULFATE 50 MG CAPSULE GT (08:41)
[2024-06-19] MEDS: SODIUM CHLORIDE TAB 1,000 MG TABLET.SOL 1000 MG GT (08:47)
[2024-06-19] MEDS: ACETAMINOPHEN 325 MG TABLET GT (20:20)
[2024-06-19] MEDS: ATORVASTATIN 40 MG TABLET 80 MG GT (20:29)
[2024-06-20] VITALS (10 sets, daily range): BP systolic 116–130; BP diastolic 41–70; PULSE 61–86; RESP 18–24; TEMP 36–36.6; O2SAT 88–97
[2024-06-20] MEDS: INSULIN REGULAR, HUMAN 100 UNIT/ML VIAL SC ×4 (06:02→23:31)
[2024-06-20] MEDS: IPRATROPIUM/ALBUTEROL 3 ML AMPUL.NEB INH (07:48)
[2024-06-20] MEDS: AMIODARONE 200 MG TABLET GT (08:31)
[2024-06-20] MEDS: ASCORBIC ACID 500 MG TABLET GT ×2 (08:32→20:50)
[2024-06-20] MEDS: AMLODIPINE 10 MG TABLET GT (08:32)
[2024-06-20] MEDS: LACTULOSE 10 GM/15 ML SOLUTION GT (08:33)
[2024-06-20] MEDS: CALCIUM GT (08:33)
[2024-06-20] MEDS: FUROSEMIDE 20 MG TABLET GT (08:33)
[2024-06-20] MEDS: VIT D3 GT (08:33)
[2024-06-20] MEDS: SENNOSIDES 8.6 MG TABLET GT ×2 (08:34→20:50)
[2024-06-20] MEDS: MULTIVITAMIN 1 TAB TABLET GT (08:34)
[2024-06-20] MEDS: METOPROLOL 25 MG TABLET GT ×2 (08:34→20:50)
[2024-06-20] MEDS: ACETAMINOPHEN 325 MG TABLET GT (20:45)
[2024-06-20] MEDS: ATORVASTATIN 40 MG TABLET 80 MG GT (20:51)
[2024-06-21] VITALS (8 sets, daily range): BP systolic 117–138; BP diastolic 56–69; PULSE 64–81; RESP 18–20; TEMP 36.2–36.5; O2SAT 97–100
[2024-06-21] MEDS: INSULIN REGULAR, HUMAN 100 UNIT/ML VIAL SC ×2 (05:09→17:09)
--- NOTE | 2024-06-21 07:35 | PC.SS ---
Room visit: Resident is laying in bed with head of the bed elevated with call light properly placed with no signs of distress. Resident is non verbal, unable to make needs known. Resident is represented by her son. Resident will remain in current care as she has no changes in care or condition. She remains on blow by with trach in place and GT for medication and nutrition. This SSD will continue to make daily contact with resident and will monitor for changes in mood and behavior.
[2024-06-21] MEDS: AMIODARONE 200 MG TABLET GT (08:13)
[2024-06-21] MEDS: AMLODIPINE 10 MG TABLET GT (08:13)
[2024-06-21] MEDS: VIT D3 GT (08:14)
[2024-06-21] MEDS: CALCIUM GT (08:14)
[2024-06-21] MEDS: ASCORBIC ACID 500 MG TABLET GT ×2 (08:14→20:24)
[2024-06-21] MEDS: SODIUM CHLORIDE TAB 1,000 MG TABLET.SOL 1000 MG GT (08:15)
[2024-06-21] MEDS: MULTIVITAMIN 1 TAB TABLET GT (08:15)
[2024-06-21] MEDS: METOPROLOL 25 MG TABLET GT ×2 (08:15→20:25)
[2024-06-21] MEDS: SENNOSIDES 8.6 MG TABLET GT ×2 (08:15→20:26)
[2024-06-21] MEDS: FUROSEMIDE 20 MG TABLET GT (08:15)
[2024-06-21] MEDS: LACTULOSE 10 GM/15 ML SOLUTION GT (08:15)
[2024-06-21] MEDS: ACETAMINOPHEN 325 MG TABLET GT (20:15)
[2024-06-21] MEDS: ATORVASTATIN 40 MG TABLET 80 MG GT (20:26)
[2024-06-22] VITALS (9 sets, daily range): BP systolic 112–145; BP diastolic 58–73; PULSE 70–86; RESP 17–22; TEMP 36.1–36.3; O2SAT 95–97
[2024-06-22] MEDS: INSULIN REGULAR, HUMAN 100 UNIT/ML VIAL SC ×5 (00:32→23:49)
[2024-06-22] MEDS: AMLODIPINE 10 MG TABLET GT (08:18)
[2024-06-22] MEDS: CALCIUM GT (08:18)
[2024-06-22] MEDS: AMIODARONE 200 MG TABLET GT (08:18)
[2024-06-22] MEDS: VIT D3 GT (08:18)
[2024-06-22] MEDS: ASCORBIC ACID 500 MG TABLET GT ×2 (08:18→21:15)
[2024-06-22] MEDS: METOPROLOL 25 MG TABLET GT ×2 (08:19→21:15)
[2024-06-22] MEDS: MULTIVITAMIN 1 TAB TABLET GT (08:19)
[2024-06-22] MEDS: FUROSEMIDE 20 MG TABLET GT (08:19)
[2024-06-22] MEDS: SENNOSIDES 8.6 MG TABLET GT ×2 (08:19→21:15)
[2024-06-22] MEDS: SODIUM CHLORIDE TAB 1,000 MG TABLET.SOL 1000 MG GT (08:20)
[2024-06-22] MEDS: ACETAMINOPHEN 325 MG TABLET GT (12:32)
[2024-06-22] MEDS: ATORVASTATIN 40 MG TABLET 80 MG GT (21:13)
--- NOTE | 2024-06-22 22:00 | PC.NURSE ---
RESIDENT AWAKE, ALERT. NOTED IV SITE, WARM AND RED. NEW IV STARTED TO RIGHT FOREARM 22G, X2 ATTEMPT. TOLERATED WELL, GOOD BLOOD RETURN. PREVIOUS IV REMOVED, CATHETER INTACT.
[2024-06-23] VITALS (15 sets, daily range): BP systolic 103–161; BP diastolic 50–81; PULSE 68–110; RESP 16–37; TEMP 36.3–38.5; O2SAT 93–100
[2024-06-23] MEDS: INSULIN REGULAR, HUMAN 100 UNIT/ML VIAL SC ×2 (06:13→12:25)
[2024-06-23] MEDS: AMLODIPINE 10 MG TABLET GT (08:21)
[2024-06-23] MEDS: AMIODARONE 200 MG TABLET GT (08:21)
[2024-06-23] MEDS: CALCIUM GT (08:21)
[2024-06-23] MEDS: FUROSEMIDE 20 MG TABLET GT (08:21)
[2024-06-23] MEDS: VIT D3 GT (08:21)
[2024-06-23] MEDS: ASCORBIC ACID 500 MG TABLET GT ×2 (08:21→21:20)
[2024-06-23] MEDS: SODIUM CHLORIDE TAB 1,000 MG TABLET.SOL 1000 MG GT ×2 (08:22→21:21)
[2024-06-23] MEDS: SENNOSIDES 8.6 MG TABLET GT ×2 (08:22→21:21)
[2024-06-23] MEDS: MULTIVITAMIN 1 TAB TABLET GT (08:22)
[2024-06-23] MEDS: METOPROLOL 25 MG TABLET GT ×2 (08:22→21:20)
--- NOTE | 2024-06-23 11:27 | XR_ITS ---
Examination: AP chest single view TECHNIQUE: AP portable semiupright chest single view Exam date and time: 2024, 1159 hours Comparison June 10, 2024 INDICATIONS: Respiratory distress today, history esophageal carcinoma FINDINGS: The film is severely underpenetrated Bilateral lung opacity consistent with pneumonia Layering left pleural fluid Esophageal tube again noted Tracheostomy tube tip is 7.6 cm above Melanie. IMPRESSION: Bilateral pneumonia,
--- NOTE | 2024-06-23 12:02 | PC.NURSE ---
Addendum entered by Domitila Rosario RN 06/23/24 14:22: ER nurse Evelia returned phone call regarding transferring resident to to ED. for further evaluation. Ave a brief report. resident will be transported to room #8. Report Will be given to Elmer MONROY. Will notify family. Original Note: Summary of events happening since 0800. Nurse Krupa reported pt increased temperature to 101.1 rectally, at 0900. temperature 100.8 HR 77, RR increased to 37BPM, BB/P 155/68, O2 saturation fluctuating 87% to 94% respiratory therapist called for breathing treatment. at 1000 temperature 10.3 rectally. respirations remaining between 36/37 BPM. At this time pt was turned and repositioned . Charge nurse assessed pleural chest tube (rt side). Tube appears to be in place. skin around it had redened and a blackened area size of a soteol, dry brownish discharge noted to dressing. Resident O2 saturation continues to fluctuate between low 80s and 94%. Chest x ray stat were ordered as per Dr. Hernandez orders on previous occasion due to resident Hx of pleural effusion events. At this time Dr. Willingham covering for Dr. Hernandez Notified him of events. order to send pt to ED for further evaluation. Will carry out orders. will notified Family.
[2024-06-23] MEDS: ACETAMINOPHEN 325 MG TABLET 650 MG GT (14:16)
--- NOTE | 2024-06-23 14:53 | PC.NURSE ---
Report given to Elmer in ER regarding resident current condition. Resident transported via gurney. VS 100.9, 75, 26, 122/62. Notified family upon resident's departure.
--- NOTE | 2024-06-23 19:21 | PC.NURSE ---
This morning when obtaining vital signs for medication administration this nurse Krupa valentino LVN noticed resident to be warm to the touch & diaphoretic. Vital signs @ 0800 101.1 Rectally, 92, 28, 144/68 Spo2 96% on blow- by 8L 30%. Charge nurse made aware and ordered to recheck vital signs within 1 hr. cooling measures applied at this time. At 0900 F/U vital signs 100.8 rectally, 77, 37, 155/68 Spo2 94 %. Charge nurse informed and recommended to have RT come assess and administer a PRN respiratory TX. Nurse called RT to inform her regarding status of the patient. Having ^ RR 37 BPM with some retracting. RT replied I'll be there . RT here at 1015 to assess and administer PRN respiratory TX. At 1100 Charge nurse Andreina Rosario and Krupa Valentino LVN went to asses pt and noticed Plueral X site to right flank reddened with a foul smell. Transparent dressing and gauze with some small brown drainage. At 1200 radiologist here for Chest X- ray report pending. At 1505 pt was transfered to ER via [facility] with feeding pump. Report given to ER nurse Elmer RN by Andreina Rosario RN. Brief update given To Elmer RN by Krupa Valentino LVN who was the nurse assigned to the pt.
--- NOTE | 2024-06-23 19:53 | ESPR_ITS ---
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 (7) Decubital ulcer: Status: Chronic (8) Deep venous thrombosis: Status: Chronic Qualifiers: DVT location: lower extremity Affected thrombotic vein of extremity: unspecified lower extremity proximal vein Chronicity: chronic Laterality: unspecified laterality Qualified Code(s): I82.5Y9 - Chronic embolism and thrombosis of unspecified deep veins of unspecified proximal lower extremity (9) Diastolic CHF: Status: Chronic Qualifiers: Heart failure chronicity: chronic Qualified Code(s): I50.32 - Chronic diastolic (congestive) heart failure OBJECTIVE Most recent vital signs: Last Vital Signs Temp 101 F H 06/23/24 14:16 Pulse 75 06/23/24 14:00 Resp 26 H 06/23/24 14:00 BP 122/62 06/23/24 14:00 Pulse Ox 96 06/23/24 14:00 O2 Del Method Blow-by 06/23/24 14:00 O2 Flow Rate 8 06/23/24 14:00 FiO2 30 06/23/24 14:00 Neurological:: PVS (spontaneous eye opening but no cognizant response to simple commands) Speech:: none Answers questions:: no Respiratory:: shallow breathing Cardiovascular: irregular Abdomen: soft Extremities:: deformities Decubitus:: unchanged Tracheostomy:: to blow by Complaints:: none ASSESSMENT & PLAN Assessment: Pt bed bound with all above etilologies, chronic, and fully dependent for all care . Prognosis very poor. Family considering Hospice care and possible transfer closer to home at [place] if possible. From 06-08-24 to 06-15-24 pt was in Acute Hospital for re-accumulation of Malignant Pleural effusion and requiring drainage for comfort. Current medications reviewed and continued as ongoing. VSS. No distress Plan: Maintain all support with objective of ensuring comfort. referred to the ER for evaluation
[2024-06-23] MEDS: ATORVASTATIN 40 MG TABLET 80 MG GT (21:21)
[2024-06-23] MEDS: LACTULOSE 10 GM/15 ML SOLUTION GT (21:21)
--- NOTE | 2024-06-23 21:24 | PC.NURSE ---
Received report from Ernesto MONROY from ER regarding resident having UTI and received Rocephin 1 gram IV in ER. BNP is 1037 and Na+ 125. Resident back at 2044 via gurney, accompanied by RT, ELECTRICIAN SUBSTATION SUPERVISOR and 2 CNAs. Vitals: 161/75, 106, 34, 96.9, 96% on 8L at 30%, increased breathing at this time. Notified Dr Willingham of resident being back to unit, diagnosis of UTI with new order for Rocephin 1 gram IV daily x 5 days. New order to continue Rocephin as ordered, Sodium Chloride tab 1 gram increased to twice a day and repeat Renal panel on Tuesday06/25/24 for follow up Na+ level and further orders. Nurse to give resident's PM meds, will recheck vitals in 1 hour.
[2024-06-23] MEDS: IPRATROPIUM/ALBUTEROL 3 ML AMPUL.NEB INH (22:21)
[2024-06-24] VITALS (12 sets, daily range): BP systolic 92–133; BP diastolic 52–67; PULSE 78–98; RESP 20–34; TEMP 36.2–37.2; O2SAT 91–100
[2024-06-24] MEDS: INSULIN REGULAR, HUMAN 100 UNIT/ML VIAL SC ×4 (00:38→17:09)
[2024-06-24] MEDS: ASCORBIC ACID 500 MG TABLET GT ×2 (08:42→20:32)
[2024-06-24] MEDS: AMIODARONE 200 MG TABLET GT (08:43)
[2024-06-24] MEDS: AMLODIPINE 10 MG TABLET GT (08:44)
[2024-06-24] MEDS: VIT D3 GT (08:45)
[2024-06-24] MEDS: CALCIUM GT (08:45)
[2024-06-24] MEDS: FUROSEMIDE 20 MG TABLET GT (08:45)
[2024-06-24] MEDS: SENNOSIDES 8.6 MG TABLET GT ×2 (08:46→20:33)
[2024-06-24] MEDS: MULTIVITAMIN 1 TAB TABLET GT (08:46)
[2024-06-24] MEDS: METOPROLOL 25 MG TABLET GT ×2 (08:46→20:33)
[2024-06-24] MEDS: SODIUM CHLORIDE TAB 1,000 MG TABLET.SOL 1000 MG GT ×2 (08:47→20:33)
[2024-06-24] MEDS: CEFTRIAXONE 1 GM VIAL.PORT IV (09:15)
[2024-06-24] MEDS: IPRATROPIUM/ALBUTEROL 3 ML AMPUL.NEB INH ×2 (09:19→18:31)
[2024-06-24] MEDS: ATORVASTATIN 40 MG TABLET 80 MG GT (20:33)
[2024-06-24] MEDS: ACETAMINOPHEN 325 MG TABLET GT (20:35)
[2024-06-25] VITALS (12 sets, daily range): BP systolic 94–128; BP diastolic 50–74; PULSE 75–122; RESP 18–31; TEMP 36.1–36.5; O2SAT 92–100
[2024-06-25] MEDS: INSULIN REGULAR, HUMAN 100 UNIT/ML VIAL SC ×4 (00:19→17:10)
[2024-06-25] MEDS: IPRATROPIUM/ALBUTEROL 3 ML AMPUL.NEB INH ×4 (01:19→17:17)
--- NOTE | 2024-06-25 01:26 | PC.NURSE ---
ON Rocephin 1 gm IV daily for UTI, no adverse reactyion noted. With F/C patent and intact, draining via gravity bag, no hematuria noted. No s/s of pain or discomfort noted at this time. No s/s of respiratory distress noted. GT feedeing tolerated well. Turned and repositioned.
[2024-06-25] MEDS: AMLODIPINE 10 MG TABLET GT (08:28)
[2024-06-25] MEDS: ASCORBIC ACID 500 MG TABLET GT ×2 (08:28→21:14)
[2024-06-25] MEDS: AMIODARONE 200 MG TABLET GT (08:28)
[2024-06-25] MEDS: CALCIUM GT (08:29)
[2024-06-25] MEDS: MULTIVITAMIN 1 TAB TABLET GT (08:29)
[2024-06-25] MEDS: FUROSEMIDE 20 MG TABLET GT (08:29)
[2024-06-25] MEDS: VIT D3 GT (08:29)
[2024-06-25] MEDS: SENNOSIDES 8.6 MG TABLET GT ×2 (08:30→21:16)
[2024-06-25] MEDS: SODIUM CHLORIDE TAB 1,000 MG TABLET.SOL 1000 MG GT (08:31)
[2024-06-25] MEDS: MAGNESIUM HYDROXIDE 30 ML ORAL SUSP ML GT (08:31)
[2024-06-25] MEDS: ACETAMINOPHEN 325 MG TABLET 650 MG GT (08:31)
[2024-06-25] MEDS: METOPROLOL 25 MG TABLET GT ×2 (08:34→21:16)
[2024-06-25] MEDS: CEFTRIAXONE 1 GM VIAL.PORT IV (08:42)
--- NOTE | 2024-06-25 09:05 | XR_ITS ---
Examination: AP chest single view Technique one AP upright portable chest single view Exam date and time: June 25, 2024 0923 hours Comparison June 23, 2024 INDICATIONS: Hypoxia today, esophageal carcinoma diagnosis FINDINGS: Normal heart size Extensive bilateral lung opacity with layered significant pleural fluid Esophageal tube partially visualized Tracheostomy tube tip 7.5 cm above segundo Gastrostomy tube overlies the stomach IMPRESSION: Extensive bilateral lung opacity consistent with pneumonia ARDS with significant bilateral layered pleural fluid
[2024-06-25 10:54] LABS: Platelet Count 362 Thou/mm3 (140-440)
[2024-06-25 11:15] LABS: INR 1.1 (0.9-1.3); Partial Thromboplastin Time 35.3 Seconds (22.0-36.0); Prothrombin Time 11.7 Seconds (9.0-12.2)
--- NOTE | 2024-06-25 19:18 | PC.NURSE ---
At 0730 when this nurse was obtaining vital signs for medication administration she noticed resident having increased respiratory rate of 28- 32 BPM with some retraction ^ HR of 114-116 BPM and Sp02 85%. Pt was suctioned but no improvement already on Blow-by 10L 35% . RT on unit at this time was notified and went to assess and administer respiratory TX. AT 0830 when this nurse went to reassess and administer medication she noticed resident with HR 114-116 and SpO2 saturation 85%. Charge nurse Veronica MONROY informed and ordered this nurse to call RT. RT informed and came to administer PRN Respiratory TX. SpO2 saturation 85-88 % and tachycardia ^ HR 116 no improvement from PRN TX. RT attempted to place pt on 15 L trache mask SpO2 saturation 88-90%. RT attempted to place pt back on blow-by and noticed SpO2 of 69%. RT immediately started to ambu- bag resident with 100% wall O2 and called for 2nd RT Onofre to come assess and assist. Charge nurse was informed and ordered RT to place pt on ventilator. At 0915 Ventilator connected to pt with settings AC 18, TV 300 Peep 5, FIO2 100% RT remained with pt until stable and changed FIO2 to 70%. Pt tolerating vent settings SpO2 99% HR 95 RR 30 BPM. Pt appears comfortable no further distress noticed. At 0920 Radiologist here for chest X-Ray. Report pending
[2024-06-25] MEDS: ATORVASTATIN 40 MG TABLET 80 MG GT (21:15)
[2024-06-25] MEDS: LACTULOSE 10 GM/15 ML SOLUTION GT (21:16)
[2024-06-26] VITALS (11 sets, daily range): BP systolic 91–143; BP diastolic 52–62; PULSE 55–81; RESP 20–36; TEMP 36–37.1; O2SAT 98–100
[2024-06-26] MEDS: IPRATROPIUM/ALBUTEROL 3 ML AMPUL.NEB INH ×4 (00:25→16:45)
[2024-06-26] MEDS: INSULIN REGULAR, HUMAN 100 UNIT/ML VIAL SC ×4 (00:26→17:04)
[2024-06-26] MEDS: BISACODYL 10 MG SUPP.RECT PR (01:15)
[2024-06-26 07:53] LABS: B-Type Natriuretic Peptide 371 pg/mL (0-100)
[2024-06-26 07:57] LABS: Albumin, Serum 2.5 gm/dL (3.4-4.8); Anion Gap 7 (7-16); BUN/Creatinine Ratio 44 Ratio (12-20); Blood Urea Nitrogen 53 mg/dL (9-23); Calcium 7.6 mg/dL (8.3-10.6); Calcium (Corrected) 8.8 mg/dL (8.5-10.1); Carbon Dioxide 29.5 mMol/L (20.0-31.0); Chloride 90 mMol/L (98-107); Creatinine (Component) 1.2 mg/dL (0.6-1.3); Estimated Creatinine Clearance 25.8 mL/min (>60); Glucose 188 mg/dL (74-106); Osmolality,Calculated 272 (275-295); Phosphorous 3.9 mg/dL (2.4-5.1); Potassium 5.2 mMol/L (3.4-5.1); Sodium 126 mMol/L (136-145); eGFR 45 See Note
[2024-06-26] MEDS: AMIODARONE 200 MG TABLET GT (08:00)
[2024-06-26] MEDS: CALCIUM GT (08:01)
[2024-06-26] MEDS: MULTIVITAMIN 1 TAB TABLET GT (08:01)
[2024-06-26] MEDS: VIT D3 GT (08:01)
[2024-06-26] MEDS: ASCORBIC ACID 500 MG TABLET GT ×2 (08:01→20:39)
[2024-06-26] MEDS: FUROSEMIDE 20 MG TABLET GT (08:01)
[2024-06-26] MEDS: SENNOSIDES 8.6 MG TABLET GT ×2 (08:02→20:39)
[2024-06-26] MEDS: ACETAMINOPHEN 325 MG TABLET GT ×2 (11:15→16:45)
[2024-06-26] MEDS: METOPROLOL 25 MG TABLET GT (20:39)
[2024-06-26] MEDS: ATORVASTATIN 40 MG TABLET 80 MG GT (20:39)
[2024-06-26] MEDS: ACETAMINOPHEN 325 MG TABLET 650 MG GT (23:00)
[2024-06-27] VITALS (12 sets, daily range): BP systolic 95–125; BP diastolic 47–68; PULSE 50–73; RESP 19–34; TEMP 36.1–36.7; O2SAT 97–100
[2024-06-27] MEDS: INSULIN REGULAR, HUMAN 100 UNIT/ML VIAL SC ×5 (00:28→23:22)
[2024-06-27] MEDS: IPRATROPIUM/ALBUTEROL 3 ML AMPUL.NEB INH ×4 (00:41→19:45)
[2024-06-27] MEDS: ACETAMINOPHEN 325 MG TABLET GT ×3 (07:50→20:20)
[2024-06-27] MEDS: AMIODARONE 200 MG TABLET GT (08:05)
[2024-06-27] MEDS: ASCORBIC ACID 500 MG TABLET GT ×2 (08:06→20:18)
[2024-06-27] MEDS: CALCIUM GT (08:07)
[2024-06-27] MEDS: VIT D3 GT (08:07)
[2024-06-27] MEDS: MULTIVITAMIN 1 TAB TABLET GT (08:07)
[2024-06-27] MEDS: FUROSEMIDE 20 MG TABLET GT (08:07)
[2024-06-27] MEDS: SENNOSIDES 8.6 MG TABLET GT ×2 (08:08→20:20)
--- NOTE | 2024-06-27 11:41 | PC.NURSE ---
1137-Resident transported by RT and 2 SETTLEMENT WORKER's to radiology dept. for ultrasound appointment.
--- NOTE | 2024-06-27 13:23 | PC.NURSE ---
Late entry for event at 1137. Resident was taken to Radiology via bed for Thoracentesis procedure done by Dr. Gross. RAD nurse reported 950ml of fluid was drained out of left lung. Resident returned at 1225 in stable condition. VS stable.
--- NOTE | 2024-06-27 18:04 | PC.NURSE ---
1800- IV discontinued to left hand. Tolerated well, dressing applied, no complications noted.
[2024-06-27] MEDS: LACTULOSE 10 GM/15 ML SOLUTION GT (20:19)
[2024-06-27] MEDS: ATORVASTATIN 40 MG TABLET 80 MG GT (20:19)
[2024-06-27] MEDS: METOPROLOL 25 MG TABLET GT (20:19)
--- NOTE | 2024-06-27 20:45 | ESPR_ITS ---
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 (7) Decubital ulcer: Status: Chronic (8) Deep venous thrombosis: Status: Chronic Qualifiers: DVT location: lower extremity Affected thrombotic vein of extremity: unspecified lower extremity proximal vein Chronicity: chronic Laterality: unspecified laterality Qualified Code(s): I82.5Y9 - Chronic embolism and thrombosis of unspecified deep veins of unspecified proximal lower extremity (9) Diastolic CHF: Status: Chronic Qualifiers: Heart failure chronicity: chronic Qualified Code(s): I50.32 - Chronic diastolic (congestive) heart failure OBJECTIVE Most recent vital signs: Last Vital Signs Temp 97.0 F 06/27/24 17:00 Pulse 72 06/27/24 20:19 Resp 19 06/27/24 19:46 BP 125/68 06/27/24 20:19 Pulse Ox 99 06/27/24 19:46 O2 Del Method Mechanical Ventilation 06/27/24 10:53 O2 Flow Rate 10 06/27/24 10:53 FiO2 30 06/27/24 19:46 Neurological:: PVS (spontaneous eye opening but no cognizant response to simple commands) Speech:: none Answers questions:: no Respiratory:: shallow breathing Cardiovascular: irregular Abdomen: soft Extremities:: deformities Decubitus:: unchanged Tracheostomy:: to blow by Complaints:: none ASSESSMENT & PLAN Assessment: Pt bed bound with all above etilologies, chronic, and fully dependent for all care . Prognosis very poor. Family considering Hospice care and possible transfer closer to home at [place] if possible. From 06-08-24 to 06-15-24 pt was in Acute Hospital for re-accumulation of Malignant Pleural effusion and requiring drainage for comfort. Current medications reviewed and continued as ongoing. VSS. No distress Plan: Maintain all support with objective of ensuring comfort. referred to the ER for evaluation, thoracentesis was ordered due to pleural effusion.
[2024-06-28] VITALS (11 sets, daily range): BP systolic 98–127; BP diastolic 52–66; PULSE 48–76; RESP 20–39; TEMP 36–36.2; O2SAT 98–100
[2024-06-28] MEDS: IPRATROPIUM/ALBUTEROL 3 ML AMPUL.NEB INH ×4 (01:26→19:10)
[2024-06-28] MEDS: INSULIN REGULAR, HUMAN 100 UNIT/ML VIAL SC ×2 (05:05→17:28)
[2024-06-28] MEDS: VIT D3 GT (08:29)
[2024-06-28] MEDS: CALCIUM GT (08:29)
[2024-06-28] MEDS: ASCORBIC ACID 500 MG TABLET GT ×2 (08:29→20:28)
[2024-06-28] MEDS: FUROSEMIDE 20 MG TABLET GT (08:29)
[2024-06-28] MEDS: AMLODIPINE 10 MG TABLET GT (08:29)
[2024-06-28] MEDS: AMIODARONE 200 MG TABLET GT (08:29)
[2024-06-28] MEDS: METOPROLOL 25 MG TABLET GT ×2 (08:29→20:28)
[2024-06-28] MEDS: SENNOSIDES 8.6 MG TABLET GT ×2 (08:30→20:29)
[2024-06-28] MEDS: MULTIVITAMIN 1 TAB TABLET GT (08:30)
[2024-06-28] MEDS: MAGNESIUM HYDROXIDE 30 ML ORAL SUSP ML GT (10:15)
--- NOTE | 2024-06-28 14:29 | PC.SS ---
Room visit: Resident is laying in bed with head of the bed elevated with call light properly placed with no signs of distress. Resident is unable to make needs known, she is represented by her son. Resident will remain in current care as she has no changes in care or condition. She remains on ventilator with trach in place and GT for medication and nutrition. This SSD will continue to make daily contact with resident and will offer support as needed.
[2024-06-28] MEDS: ACETAMINOPHEN 325 MG TABLET GT (16:18)
--- NOTE | 2024-06-28 16:20 | XR_ITS ---
Examination: AP chest single view TECHNIQUE: AP portable sitting chest single view Exam date and time: June 28, 2024 at 1638 hours Comparison June 27, 2024 INDICATIONS: Difficulty breathing this week FINDINGS: Mild prominence left ventricle Extensive pleural-parenchymal disease bilaterally Tube overlying the central mediastinum again noted Tracheostomy tube tip 7.8 cm above segundo Left apical and inferior pneumothorax estimated 10% Gastrostomy tube IMPRESSION: Left apical and inferior pneumothorax estimated 10%
[2024-06-28] MEDS: ATORVASTATIN 40 MG TABLET 80 MG GT (20:28)
[2024-06-29] VITALS (10 sets, daily range): BP systolic 103–129; BP diastolic 55–68; PULSE 44–66; RESP 20–32; TEMP 35.8–36.3; O2SAT 98–100
[2024-06-29] MEDS: INSULIN REGULAR, HUMAN 100 UNIT/ML VIAL SC ×4 (00:19→17:54)
[2024-06-29] MEDS: IPRATROPIUM/ALBUTEROL 3 ML AMPUL.NEB INH ×4 (00:48→18:53)
--- NOTE | 2024-06-29 08:38 | PC.NURSE ---
Dr Willingham reviewed resident's chest x-ray 06/28/24 result, no new orders made.
[2024-06-29] MEDS: VIT D3 GT (09:27)
[2024-06-29] MEDS: AMLODIPINE 10 MG TABLET GT (09:27)
[2024-06-29] MEDS: CALCIUM GT (09:27)
[2024-06-29] MEDS: ASCORBIC ACID 500 MG TABLET GT ×2 (09:27→20:27)
[2024-06-29] MEDS: AMIODARONE 200 MG TABLET GT (09:27)
[2024-06-29] MEDS: FUROSEMIDE 20 MG TABLET GT (09:28)
[2024-06-29] MEDS: METOPROLOL 25 MG TABLET GT (09:29)
[2024-06-29] MEDS: MULTIVITAMIN 1 TAB TABLET GT (09:30)
[2024-06-29] MEDS: SENNOSIDES 8.6 MG TABLET GT ×2 (09:31→20:29)
[2024-06-29] MEDS: MAGNESIUM HYDROXIDE 30 ML ORAL SUSP ML GT (09:39)
[2024-06-29] MEDS: ACETAMINOPHEN 325 MG TABLET GT (17:33)
--- NOTE | 2024-06-29 19:17 | PC.NURSE ---
At 1615 resident SPO2 monitor starting alarming. When this nurse enter room to assess pt she noticed Pulse of 48, RR 30-37 and SpO2 99%. Tylenol 325 mg x2 tablet administered PRN via g-tube @1634. Resident was suctioned, repositioned and warm blanket provided but ineffective. Residents SpO2 continued to alarm continuously through out the evening. This nurse entered room frequently through out he shift to check on resident. HR low 38-44 BPM. Charge nurse informed and Noc nurse informed at shift change.
[2024-06-29] MEDS: ATORVASTATIN 40 MG TABLET 80 MG GT (20:27)
[2024-06-29] MEDS: LACTULOSE 10 GM/15 ML SOLUTION GT (20:28)
--- NOTE | 2024-06-29 23:05 | PC.NURSE ---
At 2099 made aware of resident low HR, HR has been noted in the low 40's and high 30's, resident has a continuous pulse ox., new order to send resident to ER for evaluation and treatment if indicated for low HR, ER called at 2105 to notified of send out, no bed were available at that time, at 2139 this nurse received a call back from ER to send patient to room 4, resident transported via bed by FLANGING OPERATOR, APPLICATION DBA and RT at 2149, FLANGING OPERATOR gave report at bedside, resident order entry representative Rashel made aware.
[2024-07-06 17:00] VITALS: BP 155/74; PULSE 81; RESP 26; TEMP 36.7; O2SAT 100
[2024-07-06] MEDS: INSULIN REGULAR, HUMAN 100 UNIT/ML VIAL SC (17:28)
[2024-07-06] MEDS: ACETAMINOPHEN 325 MG TABLET GT (17:35)
--- NOTE | 2024-07-06 17:50 | PC.NURSE ---
RESIDENT RETURNED FROM TELEMETRY AT 1720. PREVIOUS AND NEW ORDERS WILL BE CARRIED OUT. MD AND FAMILY AWARE OF RESIDENT'S RETURN. RESIDENT HAS F/C IN PLACE WELL RECTAL TUBE. REMAINS ON MECHANICAL VENTILATOR. CHEST TUBE TO RT CHEST SECURED WITH TEGADERM DRG NOT INTACT. wILL CONTINUE TO MONITOR.
[2024-07-06 18:40] VITALS: PULSE 63; PULSE 64; RESP 22; RESP 29; O2SAT 100
[2024-07-06] MEDS: ATORVASTATIN 40 MG TABLET 80 MG GT (20:59)
[2024-07-06] MEDS: SENNOSIDES 8.6 MG TABLET GT (21:00)
[2024-07-06] MEDS: ASCORBIC ACID 500 MG TABLET GT (21:00)
[2024-07-07] VITALS (10 sets, daily range): BP systolic 109–147; BP diastolic 56–69; PULSE 63–90; RESP 18–32; TEMP 35.8–37; O2SAT 98–100
[2024-07-07] MEDS: IPRATROPIUM/ALBUTEROL 3 ML AMPUL.NEB INH ×4 (00:09→18:34)
[2024-07-07] MEDS: INSULIN REGULAR, HUMAN 100 UNIT/ML VIAL SC ×3 (00:45→12:09)
[2024-07-07] MEDS: AMIODARONE 200 MG TABLET GT (08:16)
[2024-07-07] MEDS: FUROSEMIDE 20 MG TABLET GT (08:17)
[2024-07-07] MEDS: ASCORBIC ACID 500 MG TABLET GT ×2 (08:17→21:06)
[2024-07-07] MEDS: MULTIVITAMIN 1 TAB TABLET GT (08:17)
[2024-07-07] MEDS: AMLODIPINE 10 MG TABLET GT (08:17)
[2024-07-07] MEDS: SENNOSIDES 8.6 MG TABLET GT ×2 (08:17→21:06)
[2024-07-07] MEDS: CALCIUM GT (08:17)
[2024-07-07] MEDS: VIT D3 GT (08:17)
--- NOTE | 2024-07-07 12:50 | PD.SAPROG ---
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 (7) Decubital ulcer: Status: Chronic (8) Deep venous thrombosis: Status: Chronic Qualifiers: DVT location: lower extremity Affected thrombotic vein of extremity: unspecified lower extremity proximal vein Chronicity: chronic Laterality: unspecified laterality Qualified Code(s): I82.5Y9 - Chronic embolism and thrombosis of unspecified deep veins of unspecified proximal lower extremity (9) Diastolic CHF: Status: Chronic Qualifiers: Heart failure chronicity: chronic Qualified Code(s): I50.32 - Chronic diastolic (congestive) heart failure OBJECTIVE Most recent vital signs: Last Vital Signs Temp 97.2 F 07/08/24 06:00 Pulse 76 07/08/24 08:55 Resp 20 07/08/24 06:27 BP 134/58 H 07/08/24 08:55 Pulse Ox 100 07/08/24 06:27 O2 Del Method Mechanical Ventilation 07/08/24 06:00 O2 Flow Rate 10 06/29/24 12:00 FiO2 35 07/08/24 06:27 Neurological:: PVS (spontaneous eye opening but no cognizant response to simple commands) Speech:: none Answers questions:: no Respiratory:: shallow breathing Cardiovascular: irregular Abdomen: soft Extremities:: deformities Decubitus:: unchanged Tracheostomy:: to blow by Complaints:: none ASSESSMENT & PLAN Assessment: Pt bed bound with all above etilologies, chronic, and fully dependent for all care . Prognosis very poor. Family considering Hospice care and possible transfer closer to home at [place] if possible. From 06-08-24 to 06-15-24 pt was in Acute [facility] for re-accumulation of Malignant Pleural effusion and requiring drainage for comfort. Returned from acute care on 07/06 and now on treatment for pn. on Levaquin. Current medications reviewed and continued as ongoing. VSS. No distress Plan: Maintain all support with objective of ensuring comfort. referred to the ER for evaluation, thoracentesis was ordered due to pleural effusion.
[2024-07-07] MEDS: ACETAMINOPHEN 325 MG TABLET GT (20:45)
[2024-07-07] MEDS: ATORVASTATIN 40 MG TABLET 80 MG GT (21:06)
[2024-07-08] VITALS (10 sets, daily range): BP systolic 108–135; BP diastolic 51–72; PULSE 64–82; RESP 17–34; TEMP 36.2–36.9; O2SAT 93–100
[2024-07-08] MEDS: IPRATROPIUM/ALBUTEROL 3 ML AMPUL.NEB INH ×4 (00:14→16:30)
[2024-07-08] MEDS: INSULIN REGULAR, HUMAN 100 UNIT/ML VIAL SC ×3 (00:51→17:04)
[2024-07-08] MEDS: MULTIVITAMIN 1 TAB TABLET GT (08:52)
[2024-07-08] MEDS: FUROSEMIDE 20 MG TABLET GT (08:52)
[2024-07-08] MEDS: CALCIUM GT (08:52)
[2024-07-08] MEDS: VIT D3 GT (08:52)
[2024-07-08] MEDS: ASCORBIC ACID 500 MG TABLET GT ×2 (08:52→21:04)
[2024-07-08] MEDS: AMIODARONE 200 MG TABLET GT (08:53)
[2024-07-08] MEDS: SENNOSIDES 8.6 MG TABLET GT ×2 (08:53→21:04)
[2024-07-08] MEDS: AMLODIPINE 10 MG TABLET GT (08:55)
[2024-07-08] MEDS: ACETAMINOPHEN 325 MG TABLET GT (21:00)
[2024-07-08] MEDS: ATORVASTATIN 40 MG TABLET 80 MG GT (21:05)
[2024-07-09] VITALS (9 sets, daily range): BP systolic 97–145; BP diastolic 56–69; PULSE 66–73; RESP 21–30; TEMP 36.1; O2SAT 98–100
[2024-07-09] MEDS: INSULIN REGULAR, HUMAN 100 UNIT/ML VIAL SC ×2 (00:42→17:06)
[2024-07-09] MEDS: IPRATROPIUM/ALBUTEROL 3 ML AMPUL.NEB INH ×4 (01:43→19:30)
[2024-07-09] MEDS: ACETAMINOPHEN 325 MG TABLET GT (05:00)
[2024-07-09] MEDS: AMIODARONE 200 MG TABLET GT (08:31)
[2024-07-09] MEDS: VIT D3 GT (08:33)
[2024-07-09] MEDS: ASCORBIC ACID 500 MG TABLET GT ×2 (08:33→20:25)
[2024-07-09] MEDS: FUROSEMIDE 20 MG TABLET GT (08:33)
[2024-07-09] MEDS: MULTIVITAMIN 1 TAB TABLET GT (08:33)
[2024-07-09] MEDS: CALCIUM GT (08:33)
[2024-07-09] MEDS: SENNOSIDES 8.6 MG TABLET GT ×2 (08:34→20:25)
[2024-07-09] MEDS: ATORVASTATIN 40 MG TABLET 80 MG GT (20:25)
[2024-07-10] VITALS (9 sets, daily range): BP systolic 119–147; BP diastolic 61–78; PULSE 68–115; RESP 17–33; TEMP 36.1–36.6; O2SAT 97–100
[2024-07-10] MEDS: IPRATROPIUM/ALBUTEROL 3 ML AMPUL.NEB INH ×4 (01:06→19:35)
[2024-07-10] MEDS: AMIODARONE 200 MG TABLET GT (08:03)
[2024-07-10] MEDS: CALCIUM GT (08:03)
[2024-07-10] MEDS: VIT D3 GT (08:03)
[2024-07-10] MEDS: ASCORBIC ACID 500 MG TABLET GT ×2 (08:03→20:21)
[2024-07-10] MEDS: AMLODIPINE 10 MG TABLET GT (08:03)
[2024-07-10] MEDS: FUROSEMIDE 20 MG TABLET GT (08:04)
[2024-07-10] MEDS: SENNOSIDES 8.6 MG TABLET GT ×2 (08:04→20:23)
[2024-07-10] MEDS: MULTIVITAMIN 1 TAB TABLET GT (08:04)
--- NOTE | 2024-07-10 12:34 | PC.SS ---
Resident seen by DDS for routine dental care, no new orders or recommendations at this time to continue current care.
--- NOTE | 2024-07-10 13:25 | PC.SS ---
Resident was seen by phlebotomy program coordinator for routine follow consultation. No changes resident to continue current care.
[2024-07-10] MEDS: ATORVASTATIN 40 MG TABLET 80 MG GT (20:23)
[2024-07-10] MEDS: ACETAMINOPHEN 325 MG TABLET GT (20:25)
[2024-07-11] VITALS (10 sets, daily range): BP systolic 100–144; BP diastolic 55–67; PULSE 73–80; RESP 19–34; TEMP 36.3–36.5; O2SAT 98–100
[2024-07-11] MEDS: IPRATROPIUM/ALBUTEROL 3 ML AMPUL.NEB INH ×4 (00:41→18:37)
[2024-07-11] MEDS: INSULIN REGULAR, HUMAN 100 UNIT/ML VIAL SC (05:20)
[2024-07-11] MEDS: AMIODARONE 200 MG TABLET GT (08:46)
[2024-07-11] MEDS: AMLODIPINE 10 MG TABLET GT (08:47)
[2024-07-11] MEDS: FUROSEMIDE 20 MG TABLET GT (08:48)
[2024-07-11] MEDS: CALCIUM GT (08:48)
[2024-07-11] MEDS: MULTIVITAMIN 1 TAB TABLET GT (08:48)
[2024-07-11] MEDS: SENNOSIDES 8.6 MG TABLET GT ×2 (08:48→21:09)
[2024-07-11] MEDS: VIT D3 GT (08:48)
[2024-07-11] MEDS: ASCORBIC ACID 500 MG TABLET GT ×2 (08:48→21:09)
--- NOTE | 2024-07-11 15:14 | PC.NURSE ---
Pt no longer has IV or picc access, but continues on Levaquin for pneumonia pgt. No s/s of side or adverse affects. Pt appears to be resting comfortably at this time.
--- NOTE | 2024-07-11 17:35 | PD.SAPROG ---
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 (7) Decubital ulcer: Status: Chronic (8) Deep venous thrombosis: Status: Chronic Qualifiers: Affected thrombotic vein of extremity: unspecified lower extremity proximal vein Chronicity: chronic DVT location: lower extremity Laterality: unspecified laterality Qualified Code(s): I82.5Y9 - Chronic embolism and thrombosis of unspecified deep veins of unspecified proximal lower extremity (9) Diastolic CHF: Status: Chronic Qualifiers: Heart failure chronicity: chronic Qualified Code(s): I50.32 - Chronic diastolic (congestive) heart failure OBJECTIVE Most recent vital signs: Last Vital Signs Temp 97.6 F 07/11/24 12:00 Pulse 73 07/11/24 13:49 Resp 30 H 07/11/24 13:31 BP 100/60 07/11/24 12:00 Pulse Ox 100 07/11/24 13:49 O2 Del Method Mechanical Ventilation 07/11/24 06:00 O2 Flow Rate 10 07/09/24 11:07 FiO2 30 07/11/24 13:49 Neurological:: PVS (spontaneous eye opening but no cognizant response to simple commands) Speech:: none Answers questions:: no Respiratory:: shallow breathing Cardiovascular: irregular Abdomen: soft Extremities:: deformities Decubitus:: unchanged Tracheostomy:: to blow by Complaints:: none ASSESSMENT & PLAN Assessment: Pt bed bound with all above etilologies, chronic, and fully dependent for all care . Prognosis very poor. Family considering Hospice care and possible transfer closer to home at [place] if possible. From 06-08-24 to 06-15-24 pt was in Acute Hospital for re-accumulation of Malignant Pleural effusion and requiring drainage for comfort. Returned from acute care on 07/06 and now on treatment for pn. on Levaquin. Current medications reviewed and continued as ongoing. VSS. No distress Plan: Maintain all support with objective of ensuring comfort. referred to the ER for evaluation, thoracentesis was ordered due to pleural effusion.
[2024-07-11] MEDS: ACETAMINOPHEN 325 MG TABLET GT (21:10)
[2024-07-11] MEDS: ATORVASTATIN 40 MG TABLET 80 MG GT (21:10)
[2024-07-12] VITALS (10 sets, daily range): BP systolic 115–134; BP diastolic 63–82; PULSE 68–84; RESP 18–31; TEMP 36–36.6; O2SAT 98–100
[2024-07-12] MEDS: IPRATROPIUM/ALBUTEROL 3 ML AMPUL.NEB INH ×4 (00:58→19:29)
[2024-07-12] MEDS: INSULIN REGULAR, HUMAN 100 UNIT/ML VIAL SC (05:21)
[2024-07-12] MEDS: AMIODARONE 200 MG TABLET GT (09:21)
[2024-07-12] MEDS: AMLODIPINE 10 MG TABLET GT (09:22)
[2024-07-12] MEDS: ASCORBIC ACID 500 MG TABLET GT ×2 (09:23→20:59)
[2024-07-12] MEDS: VIT D3 GT (09:23)
[2024-07-12] MEDS: CALCIUM GT (09:23)
[2024-07-12] MEDS: FUROSEMIDE 20 MG TABLET GT (09:24)
[2024-07-12] MEDS: MULTIVITAMIN 1 TAB TABLET GT (09:24)
[2024-07-12] MEDS: SENNOSIDES 8.6 MG TABLET GT ×2 (09:25→21:00)
[2024-07-12] MEDS: ACETAMINOPHEN 325 MG TABLET GT (21:00)
[2024-07-12] MEDS: ATORVASTATIN 40 MG TABLET 80 MG GT (21:01)
[2024-07-13] VITALS (10 sets, daily range): BP systolic 105–138; BP diastolic 55–63; PULSE 7–80; RESP 21–33; TEMP 36.2–36.4; O2SAT 99–100
[2024-07-13] MEDS: IPRATROPIUM/ALBUTEROL 3 ML AMPUL.NEB INH ×4 (01:10→20:08)
[2024-07-13] MEDS: AMLODIPINE 10 MG TABLET GT (08:07)
[2024-07-13] MEDS: AMIODARONE 200 MG TABLET GT (08:07)
[2024-07-13] MEDS: ASCORBIC ACID 500 MG TABLET GT ×2 (08:08→21:02)
[2024-07-13] MEDS: CALCIUM GT (08:08)
[2024-07-13] MEDS: VIT D3 GT (08:08)
[2024-07-13] MEDS: FUROSEMIDE 20 MG TABLET GT (08:08)
[2024-07-13] MEDS: SENNOSIDES 8.6 MG TABLET GT ×2 (08:09→21:03)
[2024-07-13] MEDS: MULTIVITAMIN 1 TAB TABLET GT (08:09)
--- NOTE | 2024-07-13 14:36 | PC.SS ---
Resident is laying in bed with head of the bed elevated with call light properly placed with no signs of distress. Resident has trach in place and GT for medication and nutrition. Resident is non verbal unable to make decisions for self. Resident will remain in current care and will continue to have all subacute care needs met by staff. This SSD will make daily contact with resident and will monitor for changes in mood and behavior.
[2024-07-13] MEDS: ACETAMINOPHEN 325 MG TABLET GT (15:13)
[2024-07-13] MEDS: INSULIN REGULAR, HUMAN 100 UNIT/ML VIAL SC (17:18)
[2024-07-13] MEDS: ATORVASTATIN 40 MG TABLET 80 MG GT (21:03)
[2024-07-14] VITALS (8 sets, daily range): BP systolic 98–145; BP diastolic 50–70; PULSE 67–84; RESP 21–33; TEMP 35.9–36.6; O2SAT 96–100
[2024-07-14] MEDS: IPRATROPIUM/ALBUTEROL 3 ML AMPUL.NEB INH ×4 (00:37→19:08)
[2024-07-14] MEDS: AMLODIPINE 10 MG TABLET GT (08:00)
[2024-07-14] MEDS: ASCORBIC ACID 500 MG TABLET GT ×2 (08:00→20:24)
[2024-07-14] MEDS: AMIODARONE 200 MG TABLET GT (08:00)
[2024-07-14] MEDS: ACETAMINOPHEN 325 MG TABLET GT (08:01)
[2024-07-14] MEDS: FUROSEMIDE 20 MG TABLET GT (08:01)
[2024-07-14] MEDS: CALCIUM GT (08:01)
[2024-07-14] MEDS: MULTIVITAMIN 1 TAB TABLET GT (08:01)
[2024-07-14] MEDS: VIT D3 GT (08:01)
[2024-07-14] MEDS: SENNOSIDES 8.6 MG TABLET GT ×2 (08:01→20:24)
[2024-07-14] MEDS: INSULIN REGULAR, HUMAN 100 UNIT/ML VIAL SC (17:08)
[2024-07-14] MEDS: ATORVASTATIN 40 MG TABLET 80 MG GT (20:24)
[2024-07-15] VITALS (9 sets, daily range): BP systolic 98–125; BP diastolic 50–65; PULSE 82–91; RESP 22–32; TEMP 36.9–37.1; O2SAT 97–100
[2024-07-15] MEDS: IPRATROPIUM/ALBUTEROL 3 ML AMPUL.NEB INH ×4 (00:57→18:50)
[2024-07-15] MEDS: AMIODARONE 200 MG TABLET GT (08:11)
[2024-07-15] MEDS: AMLODIPINE 10 MG TABLET GT (08:13)
[2024-07-15] MEDS: CALCIUM GT (08:14)
[2024-07-15] MEDS: MULTIVITAMIN 1 TAB TABLET GT (08:14)
[2024-07-15] MEDS: VIT D3 GT (08:14)
[2024-07-15] MEDS: ASCORBIC ACID 500 MG TABLET GT ×2 (08:14→20:25)
[2024-07-15] MEDS: FUROSEMIDE 20 MG TABLET GT (08:14)
[2024-07-15] MEDS: SENNOSIDES 8.6 MG TABLET GT ×2 (08:15→20:32)
[2024-07-15] MEDS: CARBAMIDE PEROXIDE OTIC SOL 15 ML BTL 5 DROP BOTH EARS ×2 (09:30→20:35)
--- NOTE | 2024-07-15 10:19 | PD.SAPROG ---
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 (7) Decubital ulcer: Status: Chronic (8) Deep venous thrombosis: Status: Chronic Qualifiers: DVT location: lower extremity Affected thrombotic vein of extremity: unspecified lower extremity proximal vein Chronicity: chronic Laterality: unspecified laterality Qualified Code(s): I82.5Y9 - Chronic embolism and thrombosis of unspecified deep veins of unspecified proximal lower extremity (9) Diastolic CHF: Status: Chronic Qualifiers: Heart failure chronicity: chronic Qualified Code(s): I50.32 - Chronic diastolic (congestive) heart failure OBJECTIVE Most recent vital signs: Last Vital Signs Temp 97.7 F 07/14/24 17:47 Pulse 87 07/15/24 08:13 Resp 25 H 07/15/24 06:48 BP 123/50 L 07/15/24 08:13 Pulse Ox 100 07/15/24 06:48 O2 Del Method Mechanical Ventilation 07/14/24 17:47 O2 Flow Rate 10 07/09/24 11:07 FiO2 30 07/15/24 06:48 Neurological:: PVS (spontaneous eye opening but no cognizant response to simple commands) Speech:: none Answers questions:: no Respiratory:: shallow breathing Cardiovascular: irregular Abdomen: soft Extremities:: deformities Decubitus:: unchanged Tracheostomy:: to blow by Complaints:: none ASSESSMENT & PLAN Assessment: Pt bed bound with all above etilologies, chronic, and fully dependent for all care . Prognosis very poor. Family considering Hospice care and possible transfer closer to home at [place] if possible. From 06-08-24 to 06-15-24 pt was in Acute Hospital for re-accumulation of Malignant Pleural effusion and requiring drainage for comfort. Returned from acute care on 07/06 and now on treatment for pn. on Levaquin. Current medications reviewed and continued as ongoing. VSS. No distress Plan: Maintain all support with objective of ensuring comfort. referred to the ER for evaluation, thoracentesis was ordered due to pleural effusion.
[2024-07-15] MEDS: ATORVASTATIN 40 MG TABLET 80 MG GT (20:32)
[2024-07-15] MEDS: ACETAMINOPHEN 325 MG TABLET GT (20:36)
[2024-07-16] VITALS (10 sets, daily range): BP systolic 84–134; BP diastolic 58–68; PULSE 74–88; RESP 17–30; TEMP 36.3–37; O2SAT 97–99
[2024-07-16] MEDS: IPRATROPIUM/ALBUTEROL 3 ML AMPUL.NEB INH ×4 (01:46→18:50)
[2024-07-16] MEDS: AMIODARONE 200 MG TABLET GT (09:06)
[2024-07-16] MEDS: VIT D3 GT (09:07)
[2024-07-16] MEDS: ASCORBIC ACID 500 MG TABLET GT ×2 (09:07→20:34)
[2024-07-16] MEDS: CALCIUM GT (09:07)
[2024-07-16] MEDS: AMLODIPINE 10 MG TABLET GT (09:07)
[2024-07-16] MEDS: CARBAMIDE PEROXIDE OTIC SOL 15 ML BTL 5 DROP BOTH EARS ×2 (09:08→20:37)
[2024-07-16] MEDS: SENNOSIDES 8.6 MG TABLET GT ×2 (09:08→20:37)
[2024-07-16] MEDS: FUROSEMIDE 20 MG TABLET GT (09:08)
[2024-07-16] MEDS: MULTIVITAMIN 1 TAB TABLET GT (09:08)
[2024-07-16] MEDS: INSULIN REGULAR, HUMAN 100 UNIT/ML VIAL SC ×2 (11:33→17:33)
[2024-07-16] MEDS: ATORVASTATIN 40 MG TABLET 80 MG GT (20:35)
[2024-07-17] VITALS (10 sets, daily range): BP systolic 81–138; BP diastolic 46–69; PULSE 80–93; RESP 21–36; TEMP 36.2–37.1; O2SAT 96–100
[2024-07-17] MEDS: IPRATROPIUM/ALBUTEROL 3 ML AMPUL.NEB INH ×4 (00:46→19:50)
[2024-07-17] MEDS: AMIODARONE 200 MG TABLET GT (08:20)
[2024-07-17] MEDS: ASCORBIC ACID 500 MG TABLET GT ×2 (08:21→21:20)
[2024-07-17] MEDS: AMLODIPINE 10 MG TABLET GT (08:21)
[2024-07-17] MEDS: CALCIUM GT (08:23)
[2024-07-17] MEDS: VIT D3 GT (08:23)
[2024-07-17] MEDS: SENNOSIDES 8.6 MG TABLET GT ×2 (08:24→21:22)
[2024-07-17] MEDS: CARBAMIDE PEROXIDE OTIC SOL 15 ML BTL 5 DROP BOTH EARS (08:24)
[2024-07-17] MEDS: FUROSEMIDE 20 MG TABLET GT (08:24)
[2024-07-17] MEDS: MULTIVITAMIN 1 TAB TABLET GT (08:24)
[2024-07-17] MEDS: INSULIN REGULAR, HUMAN 100 UNIT/ML VIAL SC (17:10)
[2024-07-17] MEDS: ATORVASTATIN 40 MG TABLET 80 MG GT (21:21)
[2024-07-17] MEDS: ACETAMINOPHEN 325 MG TABLET GT (21:24)
--- NOTE | 2024-07-17 22:19 | PC.NURSE ---
New order from to DC rectal tube, resident has not had a BM since 07/14/24, re-eval with on 07/16/24.
[2024-07-17] MEDS: MAGNESIUM HYDROXIDE 30 ML ORAL SUSP ML GT (22:55)
[2024-07-18] VITALS (9 sets, daily range): BP systolic 117–128; BP diastolic 53–73; PULSE 74–85; RESP 20–31; TEMP 35.9–36.6; O2SAT 97–100
[2024-07-18] MEDS: IPRATROPIUM/ALBUTEROL 3 ML AMPUL.NEB INH ×4 (01:11→19:42)
[2024-07-18] MEDS: AMIODARONE 200 MG TABLET GT (08:12)
[2024-07-18] MEDS: AMLODIPINE 10 MG TABLET GT (08:13)
[2024-07-18] MEDS: ASCORBIC ACID 500 MG TABLET GT ×2 (08:13→20:37)
[2024-07-18] MEDS: VIT D3 GT (08:14)
[2024-07-18] MEDS: CALCIUM GT (08:14)
[2024-07-18] MEDS: FUROSEMIDE 20 MG TABLET GT (08:14)
[2024-07-18] MEDS: SENNOSIDES 8.6 MG TABLET GT ×2 (08:15→20:36)
[2024-07-18] MEDS: MULTIVITAMIN 1 TAB TABLET GT (08:15)
[2024-07-18] MEDS: CARBAMIDE PEROXIDE OTIC SOL 15 ML BTL 5 DROP BOTH EARS (20:21)
[2024-07-18] MEDS: ATORVASTATIN 40 MG TABLET 80 MG GT (20:37)
[2024-07-19] VITALS (9 sets, daily range): BP systolic 115–136; BP diastolic 55–80; PULSE 61–87; RESP 19–30; TEMP 36.3–36.8; O2SAT 100
[2024-07-19] MEDS: IPRATROPIUM/ALBUTEROL 3 ML AMPUL.NEB INH ×4 (00:42→18:43)
[2024-07-19] MEDS: AMIODARONE 200 MG TABLET GT (08:15)
[2024-07-19] MEDS: AMLODIPINE 10 MG TABLET GT (08:15)
[2024-07-19] MEDS: CALCIUM GT (08:16)
[2024-07-19] MEDS: MULTIVITAMIN 1 TAB TABLET GT (08:16)
[2024-07-19] MEDS: VIT D3 GT (08:16)
[2024-07-19] MEDS: FUROSEMIDE 20 MG TABLET GT (08:16)
[2024-07-19] MEDS: ASCORBIC ACID 500 MG TABLET GT ×2 (08:16→20:22)
[2024-07-19] MEDS: SENNOSIDES 8.6 MG TABLET GT ×2 (08:17→20:22)
[2024-07-19] MEDS: ATORVASTATIN 40 MG TABLET 80 MG GT (20:22)
--- NOTE | 2024-07-19 22:54 | ESPR_ITS ---
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 (7) Decubital ulcer: Status: Chronic (8) Deep venous thrombosis: Status: Chronic Qualifiers: DVT location: lower extremity Affected thrombotic vein of extremity: unspecified lower extremity proximal vein Chronicity: chronic Laterality: unspecified laterality Qualified Code(s): I82.5Y9 - Chronic embolism and thrombosis of unspecified deep veins of unspecified proximal lower extremity (9) Diastolic CHF: Status: Chronic Qualifiers: Heart failure chronicity: chronic Qualified Code(s): I50.32 - Chronic diastolic (congestive) heart failure OBJECTIVE Most recent vital signs: Last Vital Signs Temp 97.3 F 07/19/24 18:00 Pulse 84 07/19/24 18:43 Resp 25 H 07/19/24 18:43 BP 131/56 H 07/19/24 18:00 Pulse Ox 100 07/19/24 18:43 O2 Del Method Mechanical Ventilation 07/18/24 17:54 O2 Flow Rate 10 07/09/24 11:07 FiO2 30 07/19/24 18:43 Neurological:: PVS (spontaneous eye opening but no cognizant response to simple commands) Speech:: none Answers questions:: no Respiratory:: shallow breathing Cardiovascular: irregular Abdomen: soft Extremities:: deformities Decubitus:: unchanged Tracheostomy:: to blow by Complaints:: none ASSESSMENT & PLAN Assessment: Pt bed bound with all above etilologies, chronic, and fully dependent for all care . Prognosis very poor. Family considering Hospice care and possible transfer closer to home at [place] if possible. From 06-08-24 to 06-15-24 pt was in Acute Hospital for re-accumulation of Malignant Pleural effusion and requiring drainage for comfort. Returned from acute care on 07/06 and completed treatment for pn. on Levaquin. Current medications reviewed and continued as ongoing. VSS. No distress Plan: Maintain all support with objective of ensuring comfort. referred to the ER for evaluation, thoracentesis was ordered due to pleural effusion, malignant.
[2024-07-20] VITALS (8 sets, daily range): BP systolic 90–132; BP diastolic 54–70; PULSE 74–94; RESP 20–30; TEMP 36.3–36.7; O2SAT 97–100
[2024-07-20] MEDS: IPRATROPIUM/ALBUTEROL 3 ML AMPUL.NEB INH ×4 (00:17→16:23)
[2024-07-20] MEDS: AMIODARONE 200 MG TABLET GT (09:40)
[2024-07-20] MEDS: AMLODIPINE 10 MG TABLET GT (09:40)
[2024-07-20] MEDS: ASCORBIC ACID 500 MG TABLET GT ×2 (09:40→20:22)
[2024-07-20] MEDS: SENNOSIDES 8.6 MG TABLET GT ×2 (09:41→20:23)
[2024-07-20] MEDS: MULTIVITAMIN 1 TAB TABLET GT (09:41)
[2024-07-20] MEDS: FUROSEMIDE 20 MG TABLET GT (09:41)
[2024-07-20] MEDS: VIT D3 GT (09:41)
[2024-07-20] MEDS: CALCIUM GT (09:41)
[2024-07-20] MEDS: INSULIN REGULAR, HUMAN 100 UNIT/ML VIAL SC (11:39)
[2024-07-20] MEDS: ATORVASTATIN 40 MG TABLET 80 MG GT (20:22)
[2024-07-21] VITALS (7 sets, daily range): BP systolic 92–105; BP diastolic 54–58; PULSE 71–84; RESP 20–28; TEMP 36.6–36.7; O2SAT 99–100
[2024-07-21] MEDS: IPRATROPIUM/ALBUTEROL 3 ML AMPUL.NEB INH ×4 (00:53→20:12)
[2024-07-21] MEDS: INSULIN REGULAR, HUMAN 100 UNIT/ML VIAL SC ×2 (00:55→11:30)
[2024-07-21] MEDS: AMIODARONE 200 MG TABLET GT (08:03)
[2024-07-21] MEDS: VIT D3 GT (08:04)
[2024-07-21] MEDS: CALCIUM GT (08:04)
[2024-07-21] MEDS: FUROSEMIDE 20 MG TABLET GT (08:04)
[2024-07-21] MEDS: SENNOSIDES 8.6 MG TABLET GT ×2 (08:04→20:14)
[2024-07-21] MEDS: MULTIVITAMIN 1 TAB TABLET GT (08:04)
[2024-07-21] MEDS: ASCORBIC ACID 500 MG TABLET GT ×2 (08:04→20:13)
[2024-07-21] MEDS: ACETAMINOPHEN 325 MG TABLET GT (20:14)
[2024-07-21] MEDS: ATORVASTATIN 40 MG TABLET 80 MG GT (20:14)
[2024-07-22] VITALS (9 sets, daily range): BP systolic 116–136; BP diastolic 62–75; PULSE 74–85; RESP 19–31; TEMP 36.1–36.6; O2SAT 98–100
[2024-07-22] MEDS: IPRATROPIUM/ALBUTEROL 3 ML AMPUL.NEB INH ×4 (00:42→18:55)
[2024-07-22] MEDS: INSULIN REGULAR, HUMAN 100 UNIT/ML VIAL SC ×3 (00:50→17:29)
[2024-07-22] MEDS: AMIODARONE 200 MG TABLET GT (08:33)
[2024-07-22] MEDS: ASCORBIC ACID 500 MG TABLET GT ×2 (08:34→20:20)
[2024-07-22] MEDS: VIT D3 GT (08:34)
[2024-07-22] MEDS: AMLODIPINE 10 MG TABLET GT (08:34)
[2024-07-22] MEDS: CALCIUM GT (08:34)
[2024-07-22] MEDS: SENNOSIDES 8.6 MG TABLET GT ×2 (08:35→20:21)
[2024-07-22] MEDS: MULTIVITAMIN 1 TAB TABLET GT (08:35)
[2024-07-22] MEDS: FUROSEMIDE 20 MG TABLET GT (08:35)
[2024-07-22] MEDS: ATORVASTATIN 40 MG TABLET 80 MG GT (20:21)
[2024-07-23] VITALS (9 sets, daily range): BP systolic 110–141; BP diastolic 53–74; PULSE 73–93; RESP 17–31; TEMP 36–36.3; O2SAT 99–100
[2024-07-23] MEDS: IPRATROPIUM/ALBUTEROL 3 ML AMPUL.NEB INH ×4 (01:14→19:23)
[2024-07-23] MEDS: INSULIN REGULAR, HUMAN 100 UNIT/ML VIAL SC (05:59)
[2024-07-23] MEDS: AMIODARONE 200 MG TABLET GT (08:38)
[2024-07-23] MEDS: AMLODIPINE 10 MG TABLET GT (08:38)
[2024-07-23] MEDS: ASCORBIC ACID 500 MG TABLET GT ×2 (08:39→20:31)
[2024-07-23] MEDS: MULTIVITAMIN 1 TAB TABLET GT (08:39)
[2024-07-23] MEDS: SENNOSIDES 8.6 MG TABLET GT ×2 (08:39→20:34)
[2024-07-23] MEDS: FUROSEMIDE 20 MG TABLET GT (08:39)
[2024-07-23] MEDS: CALCIUM GT (08:39)
[2024-07-23] MEDS: VIT D3 GT (08:39)
[2024-07-23] MEDS: ATORVASTATIN 40 MG TABLET 80 MG GT (20:32)
--- NOTE | 2024-07-23 21:46 | ESPR_ITS ---
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 (7) Decubital ulcer: Status: Chronic (8) Deep venous thrombosis: Status: Chronic Qualifiers: DVT location: lower extremity Affected thrombotic vein of extremity: unspecified lower extremity proximal vein Chronicity: chronic Laterality: unspecified laterality Qualified Code(s): I82.5Y9 - Chronic embolism and thrombosis of unspecified deep veins of unspecified proximal lower extremity (9) Diastolic CHF: Status: Chronic Qualifiers: Heart failure chronicity: chronic Qualified Code(s): I50.32 - Chronic diastolic (congestive) heart failure OBJECTIVE Most recent vital signs: Last Vital Signs Temp 97.1 F 07/23/24 17:59 Pulse 74 07/23/24 19:24 Resp 24 H 07/23/24 19:24 BP 110/53 L 07/23/24 17:59 Pulse Ox 100 07/23/24 19:24 O2 Del Method Mechanical Ventilation 07/23/24 17:59 O2 Flow Rate 10 07/09/24 11:07 FiO2 30 07/23/24 19:24 Neurological:: PVS (spontaneous eye opening but no cognizant response to simple commands) Speech:: none Answers questions:: no Respiratory:: shallow breathing Cardiovascular: irregular Abdomen: soft Extremities:: deformities Decubitus:: unchanged Tracheostomy:: to blow by Complaints:: none ASSESSMENT & PLAN Assessment: Pt bed bound with all above etilologies, chronic, and fully dependent for all care . Prognosis very poor. Family considering Hospice care and possible transfer closer to home at [place] if possible. From 06-08-24 to 06-15-24 pt was in Acute Hospital for re-accumulation of Malignant Pleural effusion and requiring drainage for comfort. Returned from acute care on 07/06 and completed treatment for pn. on Levaquin. Current medications reviewed and continued as ongoing. VSS. No distress Plan: Maintain all support with objective of ensuring comfort. referred to the ER for evaluation, thoracentesis was ordered due to pleural effusion, malignant.
[2024-07-24] VITALS (10 sets, daily range): BP systolic 105–116; BP diastolic 50–67; PULSE 67–79; RESP 18–27; TEMP 36.1–36.3; O2SAT 96–100
[2024-07-24] MEDS: IPRATROPIUM/ALBUTEROL 3 ML AMPUL.NEB INH ×3 (00:39→19:23)
[2024-07-24] MEDS: AMLODIPINE 10 MG TABLET GT (08:09)
[2024-07-24] MEDS: AMIODARONE 200 MG TABLET GT (08:09)
[2024-07-24] MEDS: CALCIUM GT (08:10)
[2024-07-24] MEDS: VIT D3 GT (08:10)
[2024-07-24] MEDS: ASCORBIC ACID 500 MG TABLET GT ×2 (08:10→20:29)
[2024-07-24] MEDS: FUROSEMIDE 20 MG TABLET GT (08:11)
[2024-07-24] MEDS: MULTIVITAMIN 1 TAB TABLET GT (08:11)
[2024-07-24] MEDS: SENNOSIDES 8.6 MG TABLET GT ×2 (08:11→20:29)
[2024-07-24] MEDS: INSULIN REGULAR, HUMAN 100 UNIT/ML VIAL SC ×2 (11:31→17:06)
[2024-07-24] MEDS: ATORVASTATIN 40 MG TABLET 80 MG GT (20:29)
[2024-07-25] VITALS (8 sets, daily range): BP systolic 115–124; BP diastolic 64–69; PULSE 75–86; RESP 18–27; TEMP 36.4; O2SAT 99–109
[2024-07-25] MEDS: IPRATROPIUM/ALBUTEROL 3 ML AMPUL.NEB INH ×3 (01:51→18:03)
[2024-07-25] MEDS: INSULIN REGULAR, HUMAN 100 UNIT/ML VIAL SC ×2 (05:58→17:32)
[2024-07-25] MEDS: AMIODARONE 200 MG TABLET GT (09:29)
[2024-07-25] MEDS: AMLODIPINE 10 MG TABLET GT (09:30)
[2024-07-25] MEDS: VIT D3 GT (09:31)
[2024-07-25] MEDS: CALCIUM GT (09:31)
[2024-07-25] MEDS: FUROSEMIDE 20 MG TABLET GT (09:31)
[2024-07-25] MEDS: SENNOSIDES 8.6 MG TABLET GT ×2 (09:31→20:17)
[2024-07-25] MEDS: MULTIVITAMIN 1 TAB TABLET GT (09:31)
[2024-07-25] MEDS: ASCORBIC ACID 500 MG TABLET GT ×2 (09:31→20:16)
[2024-07-25] MEDS: ATORVASTATIN 40 MG TABLET 80 MG GT (20:16)
--- NOTE | 2024-07-25 23:04 | PD.SAPROG ---
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 (7) Decubital ulcer: Status: Chronic (8) Deep venous thrombosis: Status: Chronic Qualifiers: Affected thrombotic vein of extremity: unspecified lower extremity proximal vein Chronicity: chronic DVT location: lower extremity Laterality: unspecified laterality Qualified Code(s): I82.5Y9 - Chronic embolism and thrombosis of unspecified deep veins of unspecified proximal lower extremity (9) Diastolic CHF: Status: Chronic Qualifiers: Heart failure chronicity: chronic Qualified Code(s): I50.32 - Chronic diastolic (congestive) heart failure OBJECTIVE Most recent vital signs: Last Vital Signs Temp 97.6 F 07/25/24 05:44 Pulse 75 07/25/24 18:03 Resp 23 H 07/25/24 18:03 BP 120/69 07/25/24 09:30 Pulse Ox 99 07/25/24 18:03 O2 Del Method Mechanical Ventilation 07/25/24 05:44 O2 Flow Rate 10 07/25/24 05:44 FiO2 30 07/25/24 18:03 Neurological:: PVS (spontaneous eye opening but no cognizant response to simple commands) Speech:: none Answers questions:: no Respiratory:: shallow breathing Cardiovascular: irregular Abdomen: soft Extremities:: deformities Decubitus:: unchanged Tracheostomy:: to blow by Complaints:: none ASSESSMENT & PLAN Assessment: Pt bed bound with all above etilologies, chronic, and fully dependent for all care . Prognosis very poor. Family considering Hospice care and possible transfer closer to home at [place] if possible. From 06-08-24 to 06-15-24 pt was in Acute Hospital for re-accumulation of Malignant Pleural effusion and requiring drainage for comfort. Returned from acute care on 07/06 and completed treatment for pn. on Levaquin. Current medications reviewed and continued as ongoing. VSS. No distress Plan: Maintain all support with objective of ensuring comfort. referred to the ER for evaluation, thoracentesis was ordered due to pleural effusion, malignant.
[2024-07-26] VITALS (14 sets, daily range): BP systolic 93–145; BP diastolic 56–74; PULSE 74–84; RESP 21–32; TEMP 36.1–37; O2SAT 97–100
[2024-07-26] MEDS: IPRATROPIUM/ALBUTEROL 3 ML AMPUL.NEB INH ×4 (00:57→19:54)
[2024-07-26] MEDS: AMIODARONE 200 MG TABLET GT (07:42)
[2024-07-26] MEDS: MULTIVITAMIN 1 TAB TABLET GT (07:43)
[2024-07-26] MEDS: FUROSEMIDE 20 MG TABLET GT (07:43)
[2024-07-26] MEDS: SENNOSIDES 8.6 MG TABLET GT ×2 (07:43→20:21)
[2024-07-26] MEDS: ASCORBIC ACID 500 MG TABLET GT ×2 (07:43→20:21)
[2024-07-26] MEDS: CALCIUM GT (07:43)
[2024-07-26] MEDS: VIT D3 GT (07:43)
[2024-07-26 08:13] LABS: Basophils # (Auto) 0.0 Thou/mm3 (0.0-0.2); Basophils % (Auto) 0 % (0-2.5); Eosinophils # (Auto) 0.5 Thou/mm3 (0.0-0.5); Eosinophils % (Auto) 3 % (0-10); Hematocrit 20.2 % (36.0-46.0); Immature Granulocytes Auto 0.10 Thou/mm3 (0.00-0.00); Lymphocytes # (Auto) 1.1 Thou/mm3 (1.0-4.8); Lymphocytes % (Auto) 7 % (10-50); Mean Corpuscular HGB Conc 33.2 g/dl (31.0-37.0); Mean Corpuscular Hemoglobin 28.0 pg (25.0-35.0); Mean Corpuscular Volume 85 fL (80-100); Monocytes # (Auto) 1.3 Thou/mm3 (0.0-0.8); Monocytes % (Auto) 9 % (0-12); Neutrophils # (Auto) 11.5 Thou/mm3 (1.8-7.7); Neutrophils % (Auto) 80 % (37-80); Nucleated Red Blood Cell # 0.00 Thou/mm3 (0.00-0.00); Nucleated Red Blood Cell % 0 /100 WBC (0); Platelet Count 491 Thou/mm3 (140-440); RDW Standard Deviation 53.8 fL (36.4-46.3); Red Blood Count 2.39 Miln/mm3 (4.00-5.20); White Blood Count 14.4 Thou/mm3 (3.6-11.0)
[2024-07-26 08:29] LABS: Alanine Aminotransferase 35 U/L (10-49); Albumin, Serum 2.7 gm/dL (3.4-4.8); Albumin/Globulin Ratio 0.9 (1.2-2.2); Alkaline Phosphatase 68 U/L (46-116); Anion Gap 6 (7-16); Aspartate Amino Transferase 42 U/L (0-34); BUN/Creatinine Ratio 38 Ratio (12-20); Bilirubin,Total 0.4 mg/dL (0.3-1.2); Blood Urea Nitrogen 30 mg/dL (9-23); Calcium 7.9 mg/dL (8.3-10.6); Calcium (Corrected) 8.9 mg/dL (8.5-10.1); Carbon Dioxide 30.9 mMol/L (20.0-31.0); Chloride 95 mMol/L (98-107); Creatinine (Component) 0.8 mg/dL (0.6-1.3); Estimated Creatinine Clearance 40.2 mL/min (>60); Globulin 3.0 gm/dL (2.3-3.5); Glucose 154 mg/dL (74-106); Hemoglobin 6.7 g/dL (12.0-16.0); Osmolality,Calculated 273 (275-295); Potassium 4.7 mMol/L (3.4-5.1); Sodium 132 mMol/L (136-145); Total Protein 5.7 gm/dL (5.7-8.2); eGFR > 60 See Note
--- NOTE | 2024-07-26 10:17 | PC.NURSE ---
Routine labs drawn today. Hgb noted to be 6.7 order received to gibe 1 unit PRBC and repeat CBC tomorrow. Na+ is 132 on water flush max 750 ml q shift. Called Dr levy and made aware with order received to change the flush to NS. Tried to call resident's son Jemal but unable to get hold of him. Left message on his voicemail to call us back.
[2024-07-26] MEDS: INSULIN REGULAR, HUMAN 100 UNIT/ML VIAL SC (11:30)
--- NOTE | 2024-07-26 12:57 | PC.NURSE ---
Called resident's son Rashel , made aware of the order for blood transfusion and gave consent.
--- NOTE | 2024-07-26 13:52 | PC.NURSE ---
No type and screen result noted in [place] at this time. Called blood bank and spoke with Dante and asked about it, made him aware that order was put in since this morning, he said it wasn't drawn yet and he'll let them know about it.
--- NOTE | 2024-07-26 14:56 | PC.SS ---
Resident is laying in bed with head of the bed elevated with call light placed with no signs of distress. Resident remains on vent with trach in place and GT for medication and nutrition. Resident is non verbal unable to make needs known, her son is her decision maker. Resident has no changes in care or condition and will remain in current care and will have all subacute care needs met by staff. This SSD will continue make daily contact and will monitor for changes in mood and behavior.
--- NOTE | 2024-07-26 16:08 | PC.NURSE ---
Resident's temperature before blood transfusion 98.0F
[2024-07-26 17:49] LABS: Path Review Blood Smear Sent to Pathologist
--- NOTE | 2024-07-26 18:23 | PC.NURSE ---
1 unit PRBC 321 ml completed at 18:16, no adverse reaction noted. Tolerated well.
[2024-07-26] MEDS: ATORVASTATIN 40 MG TABLET 80 MG GT (20:21)
[2024-07-27] VITALS (10 sets, daily range): BP systolic 117–151; BP diastolic 60–67; PULSE 73–87; RESP 17–30; TEMP 36.1–36.6; O2SAT 97–100
[2024-07-27] MEDS: IPRATROPIUM/ALBUTEROL 3 ML AMPUL.NEB INH ×4 (00:34→16:35)
[2024-07-27] MEDS: INSULIN REGULAR, HUMAN 100 UNIT/ML VIAL SC ×2 (05:53→17:04)
[2024-07-27] MEDS: AMLODIPINE 10 MG TABLET GT (08:04)
[2024-07-27] MEDS: AMIODARONE 200 MG TABLET GT (08:04)
[2024-07-27] MEDS: ASCORBIC ACID 500 MG TABLET GT ×2 (08:05→21:13)
[2024-07-27] MEDS: VIT D3 GT (08:05)
[2024-07-27] MEDS: CALCIUM GT (08:05)
[2024-07-27] MEDS: FUROSEMIDE 20 MG TABLET GT (08:05)
[2024-07-27] MEDS: MULTIVITAMIN 1 TAB TABLET GT (08:05)
[2024-07-27] MEDS: SENNOSIDES 8.6 MG TABLET GT ×2 (08:05→21:16)
[2024-07-27 08:17] LABS: Basophils # (Auto) 0.1 Thou/mm3 (0.0-0.2); Basophils % (Auto) 0 % (0-2.5); Eosinophils # (Auto) 0.4 Thou/mm3 (0.0-0.5); Eosinophils % (Auto) 2 % (0-10); Hematocrit 26.1 % (36.0-46.0); Hemoglobin 8.9 g/dL (12.0-16.0); Immature Granulocytes Auto 0.08 Thou/mm3 (0.00-0.00); Lymphocytes # (Auto) 0.9 Thou/mm3 (1.0-4.8); Lymphocytes % (Auto) 5 % (10-50); Mean Corpuscular HGB Conc 34.1 g/dl (31.0-37.0); Mean Corpuscular Hemoglobin 28.6 pg (25.0-35.0); Mean Corpuscular Volume 84 fL (80-100); Monocytes # (Auto) 1.4 Thou/mm3 (0.0-0.8); Monocytes % (Auto) 8 % (0-12); Neutrophils # (Auto) 15.3 Thou/mm3 (1.8-7.7); Neutrophils % (Auto) 84 % (37-80); Nucleated Red Blood Cell # 0.00 Thou/mm3 (0.00-0.00); Nucleated Red Blood Cell % 0 /100 WBC (0); Platelet Count 439 Thou/mm3 (140-440); RDW Standard Deviation 50.3 fL (36.4-46.3); Red Blood Count 3.11 Miln/mm3 (4.00-5.20); White Blood Count 18.1 Thou/mm3 (3.6-11.0)
--- NOTE | 2024-07-27 11:43 | PC.NURSE ---
CBC was drawn today s/p blood transfusion from yesterday. Hgb 8.9 with WBC of 18.1, afebrile at this time. Called Dr Hernandez and made aware with order received to repeat CBC in 3 days.
[2024-07-27] MEDS: ACETAMINOPHEN 325 MG TABLET GT (21:16)
[2024-07-27] MEDS: ATORVASTATIN 40 MG TABLET 80 MG GT (21:16)
[2024-07-28] VITALS (10 sets, daily range): BP systolic 124–138; BP diastolic 63–73; PULSE 69–79; RESP 18–30; TEMP 35.9–36.4; O2SAT 98–100
[2024-07-28] MEDS: IPRATROPIUM/ALBUTEROL 3 ML AMPUL.NEB INH ×4 (00:25→18:38)
[2024-07-28] MEDS: AMIODARONE 200 MG TABLET GT (09:23)
[2024-07-28] MEDS: AMLODIPINE 10 MG TABLET GT (09:24)
[2024-07-28] MEDS: VIT D3 GT (09:25)
[2024-07-28] MEDS: FUROSEMIDE 20 MG TABLET GT (09:25)
[2024-07-28] MEDS: SENNOSIDES 8.6 MG TABLET GT ×2 (09:25→20:49)
[2024-07-28] MEDS: ASCORBIC ACID 500 MG TABLET GT ×2 (09:25→20:48)
[2024-07-28] MEDS: MULTIVITAMIN 1 TAB TABLET GT (09:25)
[2024-07-28] MEDS: CALCIUM GT (09:25)
[2024-07-28] MEDS: INSULIN REGULAR, HUMAN 100 UNIT/ML VIAL SC (11:15)
[2024-07-28] MEDS: ATORVASTATIN 40 MG TABLET 80 MG GT (20:48)
[2024-07-29] VITALS (10 sets, daily range): BP systolic 122–145; BP diastolic 57–69; PULSE 70–86; RESP 21–28; TEMP 36.1–36.6; O2SAT 100
[2024-07-29] MEDS: IPRATROPIUM/ALBUTEROL 3 ML AMPUL.NEB INH ×4 (00:35→18:23)
[2024-07-29] MEDS: AMIODARONE 200 MG TABLET GT (08:27)
[2024-07-29] MEDS: AMLODIPINE 10 MG TABLET GT (08:28)
[2024-07-29] MEDS: VIT D3 GT (08:28)
[2024-07-29] MEDS: CALCIUM GT (08:28)
[2024-07-29] MEDS: ASCORBIC ACID 500 MG TABLET GT ×2 (08:28→21:10)
[2024-07-29] MEDS: SENNOSIDES 8.6 MG TABLET GT ×2 (08:29→21:10)
[2024-07-29] MEDS: MULTIVITAMIN 1 TAB TABLET GT (08:29)
[2024-07-29] MEDS: FUROSEMIDE 20 MG TABLET GT (08:29)
[2024-07-29] MEDS: INSULIN REGULAR, HUMAN 100 UNIT/ML VIAL SC (12:10)
--- NOTE | 2024-07-29 12:50 | PD.SAPROG ---
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 (7) Decubital ulcer: Status: Chronic (8) Deep venous thrombosis: Status: Chronic Qualifiers: Affected thrombotic vein of extremity: unspecified lower extremity proximal vein Chronicity: chronic DVT location: lower extremity Laterality: unspecified laterality Qualified Code(s): I82.5Y9 - Chronic embolism and thrombosis of unspecified deep veins of unspecified proximal lower extremity (9) Diastolic CHF: Status: Chronic Qualifiers: Heart failure chronicity: chronic Qualified Code(s): I50.32 - Chronic diastolic (congestive) heart failure OBJECTIVE Most recent vital signs: Last Vital Signs Temp 97.0 F 08/02/24 17:21 Pulse 80 08/02/24 18:43 Resp 22 H 08/02/24 18:43 BP 142/70 H 08/02/24 17:21 Pulse Ox 100 08/02/24 18:43 O2 Del Method Mechanical Ventilation 08/02/24 05:05 O2 Flow Rate 100 07/29/24 00:36 FiO2 30 08/02/24 18:43 Neurological:: PVS (spontaneous eye opening but no cognizant response to simple commands) Speech:: none Answers questions:: no Respiratory:: shallow breathing Cardiovascular: irregular Abdomen: soft Extremities:: deformities Decubitus:: unchanged Tracheostomy:: to blow by Complaints:: none ASSESSMENT & PLAN Assessment: Pt bed bound with all above etilologies, chronic, and fully dependent for all care . Prognosis very poor. Family considering Hospice care and possible transfer closer to home at [place] if possible. From 06-08-24 to 06-15-24 pt was in Acute Hospital for re-accumulation of Malignant Pleural effusion and requiring drainage for comfort. Returned from acute care on 07/06 and completed treatment for pn. on Levaquin. Current medications reviewed and continued as ongoing. VSS. No distress. Objective achievable is comfort Plan: Maintain all support with objective of ensuring comfort. referred to the ER for evaluation, thoracentesis was ordered due to pleural effusion, malignant.
[2024-07-29] MEDS: ATORVASTATIN 40 MG TABLET 80 MG GT (21:10)
[2024-07-30] VITALS (9 sets, daily range): BP systolic 126–147; BP diastolic 58–68; PULSE 72–89; RESP 19–27; TEMP 36.3; O2SAT 98–100
[2024-07-30] MEDS: IPRATROPIUM/ALBUTEROL 3 ML AMPUL.NEB INH ×4 (00:47→18:15)
[2024-07-30 07:00] LABS: Basophils # (Auto) 0.1 Thou/mm3 (0.0-0.2); Basophils % (Auto) 0 % (0-2.5); Eosinophils # (Auto) 0.3 Thou/mm3 (0.0-0.5); Eosinophils % (Auto) 1 % (0-10); Hematocrit 27.2 % (36.0-46.0); Immature Granulocytes Auto 0.11 Thou/mm3 (0.00-0.00); Lymphocytes # (Auto) 0.8 Thou/mm3 (1.0-4.8); Lymphocytes % (Auto) 4 % (10-50); Mean Corpuscular HGB Conc 32.0 g/dl (31.0-37.0); Mean Corpuscular Hemoglobin 29.2 pg (25.0-35.0); Mean Corpuscular Volume 91 fL (80-100); Monocytes # (Auto) 1.3 Thou/mm3 (0.0-0.8); Monocytes % (Auto) 7 % (0-12); Neutrophils # (Auto) 16.8 Thou/mm3 (1.8-7.7); Neutrophils % (Auto) 87 % (37-80); Nucleated Red Blood Cell # 0.00 Thou/mm3 (0.00-0.00); Nucleated Red Blood Cell % 0 /100 WBC (0); Platelet Count 374 Thou/mm3 (140-440); RDW Standard Deviation 58.2 fL (36.4-46.3); Red Blood Count 2.98 Miln/mm3 (4.00-5.20); White Blood Count 19.3 Thou/mm3 (3.6-11.0)
[2024-07-30 07:15] LABS: Hemoglobin 8.7 g/dL (12.0-16.0)
[2024-07-30] MEDS: AMLODIPINE 10 MG TABLET GT (08:38)
[2024-07-30] MEDS: AMIODARONE 200 MG TABLET GT (08:38)
[2024-07-30] MEDS: FUROSEMIDE 20 MG TABLET GT (08:38)
[2024-07-30] MEDS: ASCORBIC ACID 500 MG TABLET GT ×2 (08:38→20:23)
[2024-07-30] MEDS: VIT D3 GT (08:38)
[2024-07-30] MEDS: CALCIUM GT (08:38)
[2024-07-30] MEDS: MULTIVITAMIN 1 TAB TABLET GT (08:39)
[2024-07-30] MEDS: SENNOSIDES 8.6 MG TABLET GT ×2 (08:39→20:23)
[2024-07-30] MEDS: INSULIN REGULAR, HUMAN 100 UNIT/ML VIAL SC (11:47)
--- NOTE | 2024-07-30 16:33 | PC.NURSE ---
Dr. Hernandez was notified of that CBC results collected on 07/30/2024 WBC 19.3 H (3.6-11.0), he stated due to her condition she will have elevated WBC, no concerns at this time.
[2024-07-30] MEDS: ATORVASTATIN 40 MG TABLET 80 MG GT (20:23)
[2024-07-31] VITALS (9 sets, daily range): BP systolic 96–130; BP diastolic 54–66; PULSE 72–92; RESP 18–30; TEMP 36.4–37.1; O2SAT 100
[2024-07-31] MEDS: IPRATROPIUM/ALBUTEROL 3 ML AMPUL.NEB INH ×4 (00:10→19:17)
[2024-07-31] MEDS: AMLODIPINE 10 MG TABLET GT (08:03)
[2024-07-31] MEDS: ASCORBIC ACID 500 MG TABLET GT ×2 (08:03→20:24)
[2024-07-31] MEDS: CALCIUM GT (08:03)
[2024-07-31] MEDS: VIT D3 GT (08:03)
[2024-07-31] MEDS: AMIODARONE 200 MG TABLET GT (08:03)
[2024-07-31] MEDS: FUROSEMIDE 20 MG TABLET GT (08:04)
[2024-07-31] MEDS: SENNOSIDES 8.6 MG TABLET GT ×2 (08:04→20:25)
[2024-07-31] MEDS: MULTIVITAMIN 1 TAB TABLET GT (08:04)
[2024-07-31] MEDS: ACETAMINOPHEN 325 MG TABLET GT ×2 (08:04→18:38)
[2024-07-31] MEDS: INSULIN REGULAR, HUMAN 100 UNIT/ML VIAL SC ×2 (12:41→17:25)
[2024-07-31] MEDS: ATORVASTATIN 40 MG TABLET 80 MG GT (20:25)
[2024-08-01] VITALS (10 sets, daily range): BP systolic 116–134; BP diastolic 56–74; PULSE 63–82; RESP 18–32; TEMP 36.3–36.8; O2SAT 100
[2024-08-01] MEDS: IPRATROPIUM/ALBUTEROL 3 ML AMPUL.NEB INH ×4 (00:39→19:37)
[2024-08-01] MEDS: ACETAMINOPHEN 325 MG TABLET GT (00:40)
[2024-08-01] MEDS: AMIODARONE 200 MG TABLET GT (09:12)
[2024-08-01] MEDS: VIT D3 GT (09:14)
[2024-08-01] MEDS: AMLODIPINE 10 MG TABLET GT (09:14)
[2024-08-01] MEDS: ASCORBIC ACID 500 MG TABLET GT ×2 (09:14→20:43)
[2024-08-01] MEDS: FUROSEMIDE 20 MG TABLET GT (09:14)
[2024-08-01] MEDS: CALCIUM GT (09:14)
[2024-08-01] MEDS: MULTIVITAMIN 1 TAB TABLET GT (09:14)
[2024-08-01] MEDS: SENNOSIDES 8.6 MG TABLET GT ×2 (09:15→20:43)
[2024-08-01] MEDS: INSULIN REGULAR, HUMAN 100 UNIT/ML VIAL SC (11:23)
[2024-08-01] MEDS: ATORVASTATIN 40 MG TABLET 80 MG GT (20:43)
[2024-08-02] VITALS (9 sets, daily range): BP systolic 96–144; BP diastolic 59–74; PULSE 72–88; RESP 18–29; TEMP 36.1–36.5; O2SAT 97–100
[2024-08-02] MEDS: IPRATROPIUM/ALBUTEROL 3 ML AMPUL.NEB INH ×4 (02:11→18:43)
[2024-08-02] MEDS: ASCORBIC ACID 500 MG TABLET GT ×2 (08:05→21:18)
[2024-08-02] MEDS: AMIODARONE 200 MG TABLET GT (08:05)
[2024-08-02] MEDS: AMLODIPINE 10 MG TABLET GT (08:05)
[2024-08-02] MEDS: VIT D3 GT (08:06)
[2024-08-02] MEDS: CALCIUM GT (08:06)
[2024-08-02] MEDS: FUROSEMIDE 20 MG TABLET GT (08:06)
[2024-08-02] MEDS: SENNOSIDES 8.6 MG TABLET GT ×2 (08:06→21:19)
[2024-08-02] MEDS: MULTIVITAMIN 1 TAB TABLET GT (08:06)
[2024-08-02] MEDS: INSULIN REGULAR, HUMAN 100 UNIT/ML VIAL SC ×2 (11:55→17:16)
[2024-08-02] MEDS: ACETAMINOPHEN 325 MG TABLET GT (21:18)
[2024-08-02] MEDS: ATORVASTATIN 40 MG TABLET 80 MG GT (21:19)
[2024-08-02] MEDS: MAGNESIUM HYDROXIDE 30 ML ORAL SUSP ML GT (21:33)
--- NOTE | 2024-08-02 22:16 | PD.SAPROG ---
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 (7) Decubital ulcer: Status: Chronic (8) Deep venous thrombosis: Status: Chronic Qualifiers: DVT location: lower extremity Affected thrombotic vein of extremity: unspecified lower extremity proximal vein Chronicity: chronic Laterality: unspecified laterality Qualified Code(s): I82.5Y9 - Chronic embolism and thrombosis of unspecified deep veins of unspecified proximal lower extremity (9) Diastolic CHF: Status: Chronic Qualifiers: Heart failure chronicity: chronic Qualified Code(s): I50.32 - Chronic diastolic (congestive) heart failure OBJECTIVE Most recent vital signs: Last Vital Signs Temp 97.0 F 08/02/24 17:21 Pulse 80 08/02/24 18:43 Resp 22 H 08/02/24 18:43 BP 142/70 H 08/02/24 17:21 Pulse Ox 100 08/02/24 18:43 O2 Del Method Mechanical Ventilation 08/02/24 05:05 O2 Flow Rate 100 07/29/24 00:36 FiO2 30 08/02/24 18:43 Neurological:: PVS (spontaneous eye opening but no cognizant response to simple commands) Speech:: none Answers questions:: no Respiratory:: shallow breathing Cardiovascular: irregular Abdomen: soft Extremities:: deformities Decubitus:: unchanged Tracheostomy:: to blow by Complaints:: none ASSESSMENT & PLAN Assessment: Pt bed bound with all above etilologies, chronic, and fully dependent for all care . Prognosis very poor. Family considering Hospice care and possible transfer closer to home at [place] if possible. From 06-08-24 to 06-15-24 pt was in Acute Hospital for re-accumulation of Malignant Pleural effusion and requiring drainage for comfort. Returned from acute care on 07/06 and completed treatment for pn. on Levaquin. Current medications reviewed and continued as ongoing. VSS. No distress. Objective achievable is comfort Plan: Maintain all support with objective of ensuring comfort. referred to the ER for evaluation, thoracentesis was ordered due to pleural effusion, malignant.
[2024-08-03] VITALS (7 sets, daily range): BP systolic 141–151; BP diastolic 70–79; PULSE 78–93; RESP 23–30; TEMP 36.2–36.4; O2SAT 96–100
[2024-08-03] MEDS: IPRATROPIUM/ALBUTEROL 3 ML AMPUL.NEB INH ×3 (00:09→11:19)
[2024-08-03] MEDS: INSULIN REGULAR, HUMAN 100 UNIT/ML VIAL SC (05:21)
[2024-08-03] MEDS: AMIODARONE 200 MG TABLET GT (08:46)
[2024-08-03] MEDS: AMLODIPINE 10 MG TABLET GT (08:48)
[2024-08-03] MEDS: MULTIVITAMIN 1 TAB TABLET GT (08:49)
[2024-08-03] MEDS: ASCORBIC ACID 500 MG TABLET GT (08:49)
[2024-08-03] MEDS: CALCIUM GT (08:49)
[2024-08-03] MEDS: FUROSEMIDE 20 MG TABLET GT (08:49)
[2024-08-03] MEDS: SENNOSIDES 8.6 MG TABLET GT (08:49)
[2024-08-03] MEDS: VIT D3 GT (08:49)
[2024-08-03] MEDS: ACETAMINOPHEN 325 MG TABLET GT (08:50)
--- NOTE | 2024-08-03 11:22 | PC.NURSE ---
Addendum entered by Domitila Rosario RN 08/03/24 15:26: Late entry in addition of early note. Resident's family was notified immediately after departing from [facility]. spoke to [facility] resident's son. Original Note: Resident having respiratory distress with visual retractions, resident has hx pleural effusion. Called [facility] for evaluation. Breathing treatment is being offered at this time. RR42, with saturation 98/99% BP 147/70, 98, remains afebrile. resident was assessed after breathing tx. No change has been noted. Called MD order to send her out for further evaluation. Will carry on all new orders. Called ED for a bed spoke to Marina charge nurse. resident will be transferred to ED for further eval.
[2024-08-09 18:00] VITALS: BP 138/63; RESP 27; TEMP 36.6; O2SAT 98
[2024-08-09 18:32] VITALS: PULSE 88; RESP 25; O2SAT 98
[2024-08-09 19:44] VITALS: PULSE 88; RESP 20; O2SAT 99
[2024-08-09] MEDS: IPRATROPIUM/ALBUTEROL 3 ML AMPUL.NEB INH (19:44)
--- NOTE | 2024-08-09 20:06 | PC.NURSE ---
Ms. Link Guaman was transferred from [facility] acute area on 08/09/2024 at 1450, via hospital bed with one RN, one HONING MACHINE OPERATOR PRODUCTION, and one CHROME PLATER. She remains on mechanical vent with normal settings (PS 16, TV 400, Peep 5, FIO2 30%. Per RN report; she was admitted for myxedema coma, failure to thrive, hypertensive, pneumonia, ESBL Klebsiella and MRSA in urine, MRSA on chest tube tip, blood culture with Staph hominis; chest x-ray recurrent plural effusion. Last blood glucose 157, given 1 unit of insulin, Bandage to right mid-back due to s/p tube removal; remains with Stage III to coccyx dressing last changed on 08/09/2024. Hector last output 350ml, Generalized pitting edema throughout. Last BM 08/09/2024. Currently on Glucerna 1.2 and H2O flushes at 60ml/hr. IV: 20g to RT FA and 22g LT FA. New order for Zosyn 3.75ml Q8H x30 days, currently flowing, started at 1318 is scheduled to run for 4 hours; Eliquis 2.5mg BID [id number]; Vancomycin 500mg Q12H x30 days. Lung sounds course, unlabored; abdomen soft and non-tender; bowel sounds (+) x4Q, skin intact except for Stage III to coccyx. No family present upon transfer.
[2024-08-09] MEDS: ASCORBIC ACID 500 MG TABLET GT (20:20)
[2024-08-09] MEDS: SENNOSIDES 8.6 MG TABLET GT (20:21)
[2024-08-09] MEDS: ATORVASTATIN 40 MG TABLET 80 MG GT (20:21)
[2024-08-09] MEDS: APIXABAN 2.5 MG TABLET GT (21:31)
[2024-08-09] MEDS: PIPERACILLIN SODIUM/TAZOBACTAM 3.375 GM VIAL IV ×2 (22:00→22:13)
--- NOTE | 2024-08-09 22:15 | PC.NURSE ---
new orders for Eliquis 2.5mg BID for 7 days then re-eval., CBC (follow-up Hgb) and CMP to be done on 08/16/24, made aware of Vanco dose for tonight is not available, first dose will be given tomorrow at 0900.
[2024-08-10] VITALS (7 sets, daily range): BP systolic 127–145; BP diastolic 69–76; PULSE 62–84; RESP 18–27; TEMP 36.4–36.5; O2SAT 95–100
[2024-08-10] MEDS: IPRATROPIUM/ALBUTEROL 3 ML AMPUL.NEB INH ×4 (01:04→18:21)
[2024-08-10] MEDS: PIPERACILLIN SODIUM/TAZOBACTAM 3.375 GM VIAL IV ×4 (05:15→21:34)
[2024-08-10] MEDS: INSULIN REGULAR, HUMAN 100 UNIT/ML VIAL SC ×3 (05:26→16:52)
--- NOTE | 2024-08-10 05:44 | PC.NURSE ---
First dose of Zosyn pulled from cubix and administered, no adverse reaction or side effects noted, 24G IV to RT wrist and 22G IV to LT wrist, no s/s of infection or infiltration, aferible, HOB elevated, call light within reach, no s/s of distress noted at this time.
--- NOTE | 2024-08-10 07:13 | PC.NURSE ---
No adverse reaction noted fro Zosyn for UTI. With F/C patent and intact draining via gravity bag, no hematuria noted. No s/s of pain or discomfort. GT feeding tolerated well. No s/s of hypoglycemia/hyperglycemia noted.
[2024-08-10] MEDS: ASCORBIC ACID 500 MG TABLET GT ×2 (08:19→20:46)
[2024-08-10] MEDS: SENNOSIDES 8.6 MG TABLET GT ×2 (08:20→20:49)
[2024-08-10] MEDS: MULTIVITAMIN 1 TAB TABLET GT (08:21)
[2024-08-10] MEDS: APIXABAN 2.5 MG TABLET GT ×2 (08:21→20:50)
[2024-08-10] MEDS: AMIODARONE 200 MG TABLET GT (08:21)
[2024-08-10] MEDS: AMLODIPINE 10 MG TABLET GT (08:21)
[2024-08-10] MEDS: FUROSEMIDE 20 MG TABLET GT (08:21)
[2024-08-10] MEDS: VIT D3 GT (08:21)
[2024-08-10] MEDS: CALCIUM GT (08:21)
[2024-08-10] MEDS: NON-FORMULARY *SEE COMMENTS* 1 EA EA 500 EA IV ×2 (08:22→20:36)
--- NOTE | 2024-08-10 12:50 | PD.SAPROG ---
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 (7) Decubital ulcer: Status: Chronic (8) Deep venous thrombosis: Status: Chronic Qualifiers: Affected thrombotic vein of extremity: unspecified lower extremity proximal vein Chronicity: chronic DVT location: lower extremity Laterality: unspecified laterality Qualified Code(s): I82.5Y9 - Chronic embolism and thrombosis of unspecified deep veins of unspecified proximal lower extremity (9) Diastolic CHF: Status: Chronic Qualifiers: Heart failure chronicity: chronic Qualified Code(s): I50.32 - Chronic diastolic (congestive) heart failure OBJECTIVE Most recent vital signs: Last Vital Signs Temp 97.8 F 08/12/24 05:21 Pulse 70 08/12/24 12:48 Resp 22 H 08/12/24 12:48 BP 128/60 08/12/24 07:45 Pulse Ox 100 08/12/24 12:48 O2 Del Method Mechanical Ventilation 08/03/24 06:00 O2 Flow Rate 100 07/29/24 00:36 FiO2 30 08/12/24 12:48 Neurological:: PVS (spontaneous eye opening but no cognizant response to simple commands) Speech:: none Answers questions:: no Respiratory:: shallow breathing Cardiovascular: irregular Abdomen: soft Extremities:: deformities Decubitus:: unchanged Tracheostomy:: to blow by Complaints:: none ASSESSMENT & PLAN Assessment: Pt bed bound with all above etilologies, chronic, and fully dependent for all care . Prognosis very poor. Family considering Hospice care and possible transfer closer to home at [place] if possible. From 06-08-24 to 06-15-24 pt was in Acute Hospital for re-accumulation of Malignant Pleural effusion and requiring drainage for comfort. Returned from acute care on 08-10-24. Current medications reviewed and continued as ongoing. VSS. No distress. Objective achievable is comfort Plan: Maintain all support with objective of ensuring comfort. referred to the ER for evaluation, thoracentesis was ordered due to pleural effusion, malignant.
[2024-08-10] MEDS: ATORVASTATIN 40 MG TABLET 80 MG GT (20:49)
[2024-08-10] MEDS: ACETAMINOPHEN 325 MG TABLET GT (20:50)
[2024-08-11] VITALS (10 sets, daily range): BP systolic 124–138; BP diastolic 52–83; PULSE 64–77; RESP 21–27; TEMP 36.2–36.4; O2SAT 99–100
[2024-08-11] MEDS: IPRATROPIUM/ALBUTEROL 3 ML AMPUL.NEB INH ×4 (00:13→19:13)
[2024-08-11] MEDS: PIPERACILLIN SODIUM/TAZOBACTAM 3.375 GM VIAL IV ×3 (05:05→22:30)
[2024-08-11] MEDS: SENNOSIDES 8.6 MG TABLET GT ×2 (08:41→20:26)
[2024-08-11] MEDS: ASCORBIC ACID 500 MG TABLET GT ×2 (08:41→20:25)
[2024-08-11] MEDS: AMIODARONE 200 MG TABLET GT (08:41)
[2024-08-11] MEDS: FUROSEMIDE 20 MG TABLET GT (08:43)
[2024-08-11] MEDS: VIT D3 GT (08:43)
[2024-08-11] MEDS: MULTIVITAMIN 1 TAB TABLET GT (08:43)
[2024-08-11] MEDS: AMLODIPINE 10 MG TABLET GT (08:43)
[2024-08-11] MEDS: CALCIUM GT (08:43)
[2024-08-11] MEDS: APIXABAN 2.5 MG TABLET GT ×2 (08:44→20:27)
[2024-08-11] MEDS: MAGNESIUM HYDROXIDE 30 ML ORAL SUSP ML GT (08:47)
[2024-08-11] MEDS: NON-FORMULARY *SEE COMMENTS* 1 EA EA 500 EA IV ×2 (08:47→21:14)
[2024-08-11] MEDS: INSULIN REGULAR, HUMAN 100 UNIT/ML VIAL SC (17:16)
[2024-08-11] MEDS: ATORVASTATIN 40 MG TABLET 80 MG GT (20:26)
[2024-08-11] MEDS: BISACODYL 10 MG SUPP.RECT PR (20:27)
[2024-08-12] VITALS (8 sets, daily range): BP systolic 128–134; BP diastolic 60–73; PULSE 65–83; RESP 21–28; TEMP 36.3–36.6; O2SAT 99–100
[2024-08-12] MEDS: IPRATROPIUM/ALBUTEROL 3 ML AMPUL.NEB INH ×4 (01:48→18:15)
--- NOTE | 2024-08-12 01:58 | PC.NURSE ---
Resident on Vanco IV and Zosyn IV, no adverse reaction or side effects noted, 22G IV to left hand, no s/s of infection or infiltration, new orders placed for Vanco trough and renal panel on 08/12/24 at 0830 per [facility] recommendation, resident in room resting with eyes closed, call ligh within reach, no s/s of distress noted at this time.
[2024-08-12] MEDS: PIPERACILLIN SODIUM/TAZOBACTAM 3.375 GM VIAL IV ×2 (05:15→21:15)
[2024-08-12] MEDS: AMIODARONE 200 MG TABLET GT (07:43)
[2024-08-12] MEDS: SENNOSIDES 8.6 MG TABLET GT ×2 (07:43→20:49)
[2024-08-12] MEDS: ASCORBIC ACID 500 MG TABLET GT ×2 (07:43→20:48)
[2024-08-12] MEDS: AMLODIPINE 10 MG TABLET GT (07:45)
[2024-08-12] MEDS: VIT D3 GT (07:45)
[2024-08-12] MEDS: CALCIUM GT (07:45)
[2024-08-12] MEDS: FUROSEMIDE 20 MG TABLET GT (07:46)
[2024-08-12] MEDS: MULTIVITAMIN 1 TAB TABLET GT (07:46)
[2024-08-12] MEDS: APIXABAN 2.5 MG TABLET GT ×2 (08:10→20:49)
[2024-08-12 08:50] LABS: Albumin, Serum 2.7 gm/dL (3.4-4.8); Anion Gap 9 (7-16); BUN/Creatinine Ratio 53 Ratio (12-20); Blood Urea Nitrogen 48 mg/dL (9-23); Calcium 7.6 mg/dL (8.3-10.6); Calcium (Corrected) 8.6 mg/dL (8.5-10.1); Carbon Dioxide 28.4 mMol/L (20.0-31.0); Chloride 110 mMol/L (98-107); Creatinine (Component) 0.9 mg/dL (0.6-1.3); Estimated Creatinine Clearance 35.7 mL/min (>60); Glucose 154 mg/dL (74-106); Osmolality,Calculated 308 (275-295); Phosphorous 3.2 mg/dL (2.4-5.1); Potassium 5.0 mMol/L (3.4-5.1); Sodium 147 mMol/L (136-145); Vancomycin,Trough 25.8 mcg/mL (5.0-10.0); eGFR > 60 See Note
--- NOTE | 2024-08-12 16:41 | PC.NURSE ---
Late entry today at 08:58- Vancomycin trough was drawn this morning 25.8 and resident is on Vancomycin 500 mg every 12 hours. Called Pharmacy and made aware of it. Recommended to hold the dose at 09:00 and 21:00 and to do vanco trough and renal panel tomorrow at 08:30.
--- NOTE | 2024-08-12 17:40 | PC.NURSE ---
Resident noted to be more swollen. On Lasix 20 mg daily and maximum NS flush of 750 ml q shift. Called Dr Hernandez and made aware of it and verbally reported resident's Renal panel result. With order received to change flush to water 500 ml max q shift.
[2024-08-12] MEDS: INSULIN REGULAR, HUMAN 100 UNIT/ML VIAL SC (18:19)
[2024-08-12] MEDS: ATORVASTATIN 40 MG TABLET 80 MG GT (20:48)
--- NOTE | 2024-08-12 22:52 | PC.NURSE ---
Per day shift charge nurse, vanco IV to be held on 08/12/24 due to vanco trough results/[facility] recommendation, repeat renal and vanco trough on 08/13/24 at 0830.
--- NOTE | 2024-08-12 22:56 | PC.NURSE ---
Resident on Vanco IV and Zosyn IV, Vanco IV dose held today per [facility] recommendation, no adverse reaction or side effects noted, afebrile, 22G IV to left hand, no s/s of infection or infiltration, increased swelling noted today,, resident in room resting with eyes closed, respirations even and unlabored, call light within reach, no s/s of distress noted at this time.
[2024-08-13] VITALS (10 sets, daily range): BP systolic 105–140; BP diastolic 60–73; PULSE 72–91; RESP 22–36; TEMP 36.4–36.8; O2SAT 98–100
[2024-08-13] MEDS: IPRATROPIUM/ALBUTEROL 3 ML AMPUL.NEB INH ×4 (00:05→18:00)
[2024-08-13] MEDS: PIPERACILLIN SODIUM/TAZOBACTAM 3.375 GM VIAL IV ×3 (05:10→21:26)
[2024-08-13] MEDS: AMIODARONE 200 MG TABLET GT (08:12)
[2024-08-13] MEDS: FUROSEMIDE 20 MG TABLET GT (08:13)
[2024-08-13] MEDS: MULTIVITAMIN 1 TAB TABLET GT (08:13)
[2024-08-13] MEDS: SENNOSIDES 8.6 MG TABLET GT ×2 (08:13→20:27)
[2024-08-13] MEDS: ASCORBIC ACID 500 MG TABLET GT ×2 (08:13→20:26)
[2024-08-13] MEDS: VIT D3 GT (08:13)
[2024-08-13] MEDS: CALCIUM GT (08:13)
[2024-08-13] MEDS: APIXABAN 2.5 MG TABLET GT ×2 (08:13→20:28)
[2024-08-13 08:56] LABS: Albumin, Serum 2.7 gm/dL (3.4-4.8); Anion Gap 8 (7-16); BUN/Creatinine Ratio 44 Ratio (12-20); Blood Urea Nitrogen 40 mg/dL (9-23); Calcium 7.8 mg/dL (8.3-10.6); Calcium (Corrected) 8.8 mg/dL (8.5-10.1); Carbon Dioxide 28.5 mMol/L (20.0-31.0); Chloride 110 mMol/L (98-107); Creatinine (Component) 0.9 mg/dL (0.6-1.3); Estimated Creatinine Clearance 35.7 mL/min (>60); Glucose 161 mg/dL (74-106); Osmolality,Calculated 303 (275-295); Phosphorous 3.5 mg/dL (2.4-5.1); Potassium 4.7 mMol/L (3.4-5.1); Sodium 146 mMol/L (136-145); Vancomycin,Trough 18.4 mcg/mL (5.0-10.0); eGFR > 60 See Note
--- NOTE | 2024-08-13 09:57 | PC.NURSE ---
Vanco trough 18.4, vancomycin 500 mg still on hold. Called pharmacist and spoke with Jaimee and recommended to continue to hold the Vancomycin and repeat the labs tomorrow.
[2024-08-13] MEDS: ACETAMINOPHEN 325 MG TABLET GT ×2 (11:25→23:39)
--- NOTE | 2024-08-13 15:05 | PC.SS ---
Resident seen by online project manager/ Dr. Castellon had routine toe nail trim with no new orders or recommendations. Resident will continue current care.
--- NOTE | 2024-08-13 16:19 | PC.NURSE ---
Vancomycin still on hold. Currently on Zosyn as ordered for UTI. No adverse reaction noted. With episode of labored breathing, tylenol PGT was given , suctioned PRN. HOB elevated and repositioned noted to be effective. With F/c patent and intact draining via gravity bag.
[2024-08-13] MEDS: INSULIN REGULAR, HUMAN 100 UNIT/ML VIAL SC (17:06)
[2024-08-13] MEDS: ATORVASTATIN 40 MG TABLET 80 MG GT (20:27)
[2024-08-14] VITALS (10 sets, daily range): BP systolic 123–146; BP diastolic 53–78; PULSE 70–96; RESP 18–34; TEMP 36.4–36.7; O2SAT 97–99
[2024-08-14] MEDS: IPRATROPIUM/ALBUTEROL 3 ML AMPUL.NEB INH ×4 (00:05→18:36)
[2024-08-14] MEDS: PIPERACILLIN SODIUM/TAZOBACTAM 3.375 GM VIAL IV ×2 (05:15→14:07)
[2024-08-14] MEDS: AMIODARONE 200 MG TABLET GT (08:29)
[2024-08-14] MEDS: AMLODIPINE 10 MG TABLET GT (08:30)
[2024-08-14] MEDS: MULTIVITAMIN 1 TAB TABLET GT (08:31)
[2024-08-14] MEDS: ASCORBIC ACID 500 MG TABLET GT ×2 (08:31→20:58)
[2024-08-14] MEDS: SENNOSIDES 8.6 MG TABLET GT ×2 (08:31→20:58)
[2024-08-14] MEDS: FUROSEMIDE 20 MG TABLET GT (08:31)
[2024-08-14] MEDS: VIT D3 GT (08:31)
[2024-08-14] MEDS: CALCIUM GT (08:31)
[2024-08-14] MEDS: APIXABAN 2.5 MG TABLET GT ×2 (09:35→20:59)
[2024-08-14 09:55] LABS: Albumin, Serum 2.6 gm/dL (3.4-4.8); Anion Gap 7 (7-16); BUN/Creatinine Ratio 46 Ratio (12-20); Blood Urea Nitrogen 41 mg/dL (9-23); Calcium 7.6 mg/dL (8.3-10.6); Calcium (Corrected) 8.7 mg/dL (8.5-10.1); Carbon Dioxide 28.1 mMol/L (20.0-31.0); Chloride 112 mMol/L (98-107); Creatinine (Component) 0.9 mg/dL (0.6-1.3); Estimated Creatinine Clearance 35.7 mL/min (>60); Glucose 168 mg/dL (74-106); Osmolality,Calculated 306 (275-295); Phosphorous 3.6 mg/dL (2.4-5.1); Potassium 4.8 mMol/L (3.4-5.1); Sodium 147 mMol/L (136-145); Vancomycin,Trough 14.2 mcg/mL (5.0-10.0); eGFR > 60 See Note
[2024-08-14] MEDS: INSULIN REGULAR, HUMAN 100 UNIT/ML VIAL SC (11:36)
--- NOTE | 2024-08-14 12:50 | PD.SAPROG ---
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 (7) Decubital ulcer: Status: Chronic (8) Deep venous thrombosis: Status: Chronic Qualifiers: DVT location: lower extremity Affected thrombotic vein of extremity: unspecified lower extremity proximal vein Chronicity: chronic Laterality: unspecified laterality Qualified Code(s): I82.5Y9 - Chronic embolism and thrombosis of unspecified deep veins of unspecified proximal lower extremity (9) Diastolic CHF: Status: Chronic Qualifiers: Heart failure chronicity: chronic Qualified Code(s): I50.32 - Chronic diastolic (congestive) heart failure OBJECTIVE Most recent vital signs: Last Vital Signs Temp 97.8 F 08/19/24 17:46 Pulse 69 08/19/24 18:45 Resp 25 H 08/19/24 18:45 BP 132/68 H 08/19/24 17:46 Pulse Ox 100 08/19/24 18:45 O2 Del Method Mechanical Ventilation 08/19/24 06:00 O2 Flow Rate 100 07/29/24 00:36 FiO2 35 08/19/24 22:00 Neurological:: PVS (spontaneous eye opening but no cognizant response to simple commands) Speech:: none Answers questions:: no Respiratory:: shallow breathing Cardiovascular: irregular Abdomen: soft Extremities:: deformities Decubitus:: unchanged Tracheostomy:: to blow by Complaints:: none ASSESSMENT & PLAN Assessment: Pt bed bound with all above etilologies, chronic, and fully dependent for all care . Prognosis very poor. Family considering Hospice care and possible transfer closer to home at [place] if possible. From 06-08-24 to 06-15-24 pt was in Acute Hospital for re-accumulation of Malignant Pleural effusion and requiring drainage for comfort. Returned from acute care on 08-10-24. Current medications reviewed and continued as ongoing. VSS. No distress. Objective achievable is comfort. Plan: Maintain all support with objective of ensuring comfort.Pt code status changed to comfort measures only and no transfers to acute care
--- NOTE | 2024-08-14 16:09 | PC.NURSE ---
Received renal panel and vanco trough result received faxed to pharmacy and received recommendation to start the vancomycin 500mg BID tonight at 2100 then repeat renal panel and vanco trough on 08-16-24 at 0830 before am dose, . made aware and ok with recommendation, order noted and carried out we will contir.
[2024-08-14] MEDS: ATORVASTATIN 40 MG TABLET 80 MG GT (20:58)
[2024-08-14] MEDS: NON-FORMULARY *SEE COMMENTS* 1 EA EA 500 EA IV (21:00)
[2024-08-15] VITALS (7 sets, daily range): BP systolic 107–129; BP diastolic 67–93; PULSE 71–96; RESP 20–30; TEMP 36.2–36.5; O2SAT 99–100
[2024-08-15] MEDS: IPRATROPIUM/ALBUTEROL 3 ML AMPUL.NEB INH ×4 (01:48→18:49)
[2024-08-15] MEDS: PIPERACILLIN SODIUM/TAZOBACTAM 3.375 GM VIAL IV ×3 (06:30→22:16)
[2024-08-15] MEDS: AMIODARONE 200 MG TABLET GT (08:26)
[2024-08-15] MEDS: AMLODIPINE 10 MG TABLET GT (08:26)
[2024-08-15] MEDS: VIT D3 GT (08:27)
[2024-08-15] MEDS: FUROSEMIDE 20 MG TABLET GT (08:27)
[2024-08-15] MEDS: SENNOSIDES 8.6 MG TABLET GT ×2 (08:27→20:44)
[2024-08-15] MEDS: CALCIUM GT (08:27)
[2024-08-15] MEDS: MULTIVITAMIN 1 TAB TABLET GT (08:27)
[2024-08-15] MEDS: ASCORBIC ACID 500 MG TABLET GT ×2 (08:27→20:43)
[2024-08-15] MEDS: APIXABAN 2.5 MG TABLET GT ×2 (08:28→20:44)
[2024-08-15] MEDS: NON-FORMULARY *SEE COMMENTS* 1 EA EA 500 EA IV ×2 (09:34→21:00)
[2024-08-15] MEDS: INSULIN REGULAR, HUMAN 100 UNIT/ML VIAL SC (11:44)
[2024-08-15] MEDS: ACETAMINOPHEN 325 MG TABLET GT ×2 (14:20→20:45)
--- NOTE | 2024-08-15 15:13 | PC.NURSE ---
Remains on IV antibiotic therapy. No side effects noted. Tolerating it well. Will continue to monitor.
[2024-08-15] MEDS: ATORVASTATIN 40 MG TABLET 80 MG GT (20:44)
[2024-08-16] VITALS (8 sets, daily range): BP systolic 112–154; BP diastolic 64–97; PULSE 70–87; RESP 20–25; TEMP 36.2–36.4; O2SAT 99–100; BMI 25.7
[2024-08-16] MEDS: IPRATROPIUM/ALBUTEROL 3 ML AMPUL.NEB INH ×4 (02:00→18:00)
[2024-08-16] MEDS: PIPERACILLIN SODIUM/TAZOBACTAM 3.375 GM VIAL IV ×2 (06:17→22:26)
[2024-08-16 06:54] LABS: Basophils # (Auto) 0.0 Thou/mm3 (0.0-0.2); Basophils % (Auto) 0 % (0-2.5); Eosinophils # (Auto) 0.4 Thou/mm3 (0.0-0.5); Eosinophils % (Auto) 3 % (0-10); Immature Granulocytes Auto 0.06 Thou/mm3 (0.00-0.00); Lymphocytes # (Auto) 0.8 Thou/mm3 (1.0-4.8); Lymphocytes % (Auto) 6 % (10-50); Mean Corpuscular HGB Conc 32.3 g/dl (31.0-37.0); Mean Corpuscular Hemoglobin 29.5 pg (25.0-35.0); Mean Corpuscular Volume 91 fL (80-100); Monocytes # (Auto) 0.9 Thou/mm3 (0.0-0.8); Monocytes % (Auto) 6 % (0-12); Neutrophils # (Auto) 11.6 Thou/mm3 (1.8-7.7); Neutrophils % (Auto) 84 % (37-80); Nucleated Red Blood Cell # 0.00 Thou/mm3 (0.00-0.00); Nucleated Red Blood Cell % 0 /100 WBC (0); Platelet Count 290 Thou/mm3 (140-440); RDW Standard Deviation 60.6 fL (36.4-46.3); Red Blood Count 2.17 Miln/mm3 (4.00-5.20); White Blood Count 13.8 Thou/mm3 (3.6-11.0)
[2024-08-16 07:00] LABS: Hematocrit 19.8 % (36.0-46.0); Hemoglobin 6.4 g/dL (12.0-16.0)
[2024-08-16 07:02] LABS: Alanine Aminotransferase 15 U/L (10-49); Albumin, Serum 2.6 gm/dL (3.4-4.8); Albumin/Globulin Ratio 0.8 (1.2-2.2); Alkaline Phosphatase 78 U/L (46-116); Anion Gap 9 (7-16); Aspartate Amino Transferase 16 U/L (0-34); BUN/Creatinine Ratio 49 Ratio (12-20); Bilirubin,Total 0.2 mg/dL (0.3-1.2); Blood Urea Nitrogen 49 mg/dL (9-23); Calcium 7.7 mg/dL (8.3-10.6); Calcium (Corrected) 8.8 mg/dL (8.5-10.1); Carbon Dioxide 27.5 mMol/L (20.0-31.0); Chloride 111 mMol/L (98-107); Creatinine (Component) 1.0 mg/dL (0.6-1.3); Estimated Creatinine Clearance 32.2 mL/min (>60); Globulin 3.1 gm/dL (2.3-3.5); Glucose 156 mg/dL (74-106); Osmolality,Calculated 308 (275-295); Potassium 4.9 mMol/L (3.4-5.1); Sodium 147 mMol/L (136-145); Total Protein 5.7 gm/dL (5.7-8.2); eGFR 56 See Note
[2024-08-16] MEDS: APIXABAN 2.5 MG TABLET GT ×2 (08:30→20:10)
[2024-08-16] MEDS: AMIODARONE 200 MG TABLET GT (08:44)
[2024-08-16] MEDS: ASCORBIC ACID 500 MG TABLET GT ×2 (08:45→20:10)
[2024-08-16] MEDS: AMLODIPINE 10 MG TABLET GT (08:45)
[2024-08-16] MEDS: CALCIUM GT (08:45)
[2024-08-16] MEDS: VIT D3 GT (08:45)
[2024-08-16] MEDS: SENNOSIDES 8.6 MG TABLET GT ×2 (08:47→20:10)
[2024-08-16] MEDS: FUROSEMIDE 20 MG TABLET GT (08:47)
[2024-08-16] MEDS: MULTIVITAMIN 1 TAB TABLET GT (08:47)
[2024-08-16 09:19] LABS: Albumin, Serum 2.8 gm/dL (3.4-4.8); Anion Gap 10 (7-16); BUN/Creatinine Ratio 49 Ratio (12-20); Blood Urea Nitrogen 49 mg/dL (9-23); Calcium 7.9 mg/dL (8.3-10.6); Calcium (Corrected) 8.9 mg/dL (8.5-10.1); Carbon Dioxide 27.4 mMol/L (20.0-31.0); Chloride 110 mMol/L (98-107); Creatinine (Component) 1.0 mg/dL (0.6-1.3); Estimated Creatinine Clearance 32.2 mL/min (>60); Glucose 163 mg/dL (74-106); Osmolality,Calculated 309 (275-295); Phosphorous 4.2 mg/dL (2.4-5.1); Potassium 4.9 mMol/L (3.4-5.1); Sodium 147 mMol/L (136-145); Vancomycin,Trough 20.9 mcg/mL (5.0-10.0); eGFR 56 See Note
[2024-08-16] MEDS: INSULIN REGULAR, HUMAN 100 UNIT/ML VIAL SC (11:44)
--- NOTE | 2024-08-16 11:58 | PC.NURSE ---
Informed MD of critical value: Hct 6.4 and Hct 19.8, received new order for x2 PRBC and repeat labs on 08/17/2024. Xai Her (Son) informed and he gave consent. He had no questions at this time.
[2024-08-16] MEDS: ATORVASTATIN 40 MG TABLET 80 MG GT (20:10)
--- NOTE | 2024-08-16 20:56 | PC.RT ---
PT family decided to proceed with comfort care per ELIANA Gamboa. Dr. Hernandez called by ELIANA Gamboa, and stated that from a respiratory perspective all respiratory care including treatments and vent settings to remain the same.
--- NOTE | 2024-08-16 21:36 | PC.NURSE ---
At 2020, this nurse noted resident to have increased respiratory rate, suction was provided with no positive results, vital signs taken 153/64, 97.8,86,35, 95%, made aware and new order to send resident to ER for evaluation and treatment if indicated for respiratory distress, this nurse called next of kin Rashel Her to informed of transfer, Per Rashel Her resident is on comfort care, this nurse explained to Rashel that there is no POLST stating that she is comfort care, per Rashel he had an over the phone conversation with and social service, this nurse and Mary LESLIE obtained via phone an undated POLST for comfort care with no transfers and yes to labs by Rashel Her, this nurse explained to Rashel that the resident will not be going out to ER and we will keep her comfortable here until she passes away, Rashel undetstood, Mary LESLIE conformed, made aware of change of POSL to comfort care, new order obtained for Ativan 0.5mg via Gtube [id number] PRN for end of life care MB respiratory care, this nurse called Rashel again for verbal consent and Mary LESLIE conformed verbal consent, RT called to room, FiO increased to 50%, resident respirations are down to the 20's and 02sat is 100%, HOB elevated call light within reach.
[2024-08-17] VITALS (9 sets, daily range): BP systolic 131–147; BP diastolic 78–85; PULSE 70–78; RESP 20–24; TEMP 36.3–36.4; O2SAT 97–100
[2024-08-17] MEDS: IPRATROPIUM/ALBUTEROL 3 ML AMPUL.NEB INH ×4 (00:05→16:42)
[2024-08-17] MEDS: INSULIN REGULAR, HUMAN 100 UNIT/ML VIAL SC ×2 (05:22→11:39)
[2024-08-17] MEDS: PIPERACILLIN SODIUM/TAZOBACTAM 3.375 GM VIAL IV ×3 (06:00→21:30)
--- NOTE | 2024-08-17 06:01 | PC.NURSE ---
Resident on Vanco IV and Zosyn IV, no adverse reaction or side effects noted, 22G IV to left hand, no s/s of infection or infiltration, new orders placed for Vanco 750mg IV daily per day shift charge nurse, Vanco trough and renal panel on 08/20/24 at 0830 per [facility] recommendation, resident in room resting with eyes closed, call ligh within reach, no s/s of distress noted at this time.
[2024-08-17 06:47] LABS: Basophils # (Auto) 0.1 Thou/mm3 (0.0-0.2); Basophils % (Auto) 1 % (0-2.5); Eosinophils # (Auto) 0.4 Thou/mm3 (0.0-0.5); Eosinophils % (Auto) 3 % (0-10); Hematocrit 29.1 % (36.0-46.0); Hemoglobin 10.0 g/dL (12.0-16.0); Immature Granulocytes Auto 0.04 Thou/mm3 (0.00-0.00); Lymphocytes # (Auto) 0.8 Thou/mm3 (1.0-4.8); Lymphocytes % (Auto) 7 % (10-50); Mean Corpuscular HGB Conc 34.4 g/dl (31.0-37.0); Mean Corpuscular Hemoglobin 29.3 pg (25.0-35.0); Mean Corpuscular Volume 85 fL (80-100); Monocytes # (Auto) 0.8 Thou/mm3 (0.0-0.8); Monocytes % (Auto) 6 % (0-12); Neutrophils # (Auto) 10.0 Thou/mm3 (1.8-7.7); Neutrophils % (Auto) 83 % (37-80); Nucleated Red Blood Cell # 0.00 Thou/mm3 (0.00-0.00); Nucleated Red Blood Cell % 0 /100 WBC (0); Platelet Count 275 Thou/mm3 (140-440); RDW Standard Deviation 54.9 fL (36.4-46.3); Red Blood Count 3.41 Miln/mm3 (4.00-5.20); White Blood Count 12.0 Thou/mm3 (3.6-11.0)
[2024-08-17] MEDS: AMIODARONE 200 MG TABLET GT (08:06)
[2024-08-17] MEDS: AMLODIPINE 10 MG TABLET GT (08:07)
[2024-08-17] MEDS: FUROSEMIDE 20 MG TABLET GT (08:08)
[2024-08-17] MEDS: CALCIUM GT (08:08)
[2024-08-17] MEDS: ASCORBIC ACID 500 MG TABLET GT ×2 (08:08→21:03)
[2024-08-17] MEDS: VIT D3 GT (08:08)
[2024-08-17] MEDS: MULTIVITAMIN 1 TAB TABLET GT (08:09)
[2024-08-17] MEDS: SENNOSIDES 8.6 MG TABLET GT ×2 (08:09→21:04)
[2024-08-17] MEDS: SODIUM CHLORIDE 0.9% IV (08:56)
[2024-08-17] MEDS: VANCOMYCIN IV (08:56)
[2024-08-17] MEDS: ACETAMINOPHEN 325 MG TABLET GT ×2 (11:05→21:00)
[2024-08-17] MEDS: ATORVASTATIN 40 MG TABLET 80 MG GT (21:04)
[2024-08-18] VITALS (10 sets, daily range): BP systolic 98–138; BP diastolic 65–83; PULSE 65–84; RESP 19–40; TEMP 36.3–36.8; O2SAT 94–100
[2024-08-18] MEDS: IPRATROPIUM/ALBUTEROL 3 ML AMPUL.NEB INH ×4 (00:26→18:37)
[2024-08-18] MEDS: PIPERACILLIN SODIUM/TAZOBACTAM 3.375 GM VIAL IV ×3 (05:03→22:30)
[2024-08-18] MEDS: AMIODARONE 200 MG TABLET GT (08:40)
[2024-08-18] MEDS: FUROSEMIDE 20 MG TABLET GT (08:41)
[2024-08-18] MEDS: CALCIUM GT (08:41)
[2024-08-18] MEDS: MULTIVITAMIN 1 TAB TABLET GT (08:41)
[2024-08-18] MEDS: SENNOSIDES 8.6 MG TABLET GT ×2 (08:41→20:28)
[2024-08-18] MEDS: ASCORBIC ACID 500 MG TABLET GT ×2 (08:41→20:26)
[2024-08-18] MEDS: VIT D3 GT (08:41)
[2024-08-18] MEDS: AMLODIPINE 10 MG TABLET GT (08:41)
[2024-08-18] MEDS: VANCOMYCIN IV (09:24)
[2024-08-18] MEDS: SODIUM CHLORIDE 0.9% IV (09:24)
[2024-08-18] MEDS: ACETAMINOPHEN 325 MG TABLET GT ×2 (13:45→19:16)
[2024-08-18] MEDS: ATORVASTATIN 40 MG TABLET 80 MG GT (20:28)
--- NOTE | 2024-08-18 23:10 | ESPR_ITS ---
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 (7) Decubital ulcer: Status: Chronic (8) Deep venous thrombosis: Status: Chronic Qualifiers: DVT location: lower extremity Affected thrombotic vein of extremity: unspecified lower extremity proximal vein Chronicity: chronic Laterality: unspecified laterality Qualified Code(s): I82.5Y9 - Chronic embolism and thrombosis of unspecified deep veins of unspecified proximal lower extremity (9) Diastolic CHF: Status: Chronic Qualifiers: Heart failure chronicity: chronic Qualified Code(s): I50.32 - Chronic diastolic (congestive) heart failure OBJECTIVE Most recent vital signs: Last Vital Signs Temp 98 F 08/18/24 17:42 Pulse 84 08/18/24 18:37 Resp 39 H 08/18/24 18:37 BP 130/72 08/18/24 17:42 Pulse Ox 100 08/18/24 18:37 O2 Del Method Mechanical Ventilation 08/16/24 06:00 O2 Flow Rate 100 07/29/24 00:36 FiO2 40 08/18/24 18:37 Neurological:: PVS (spontaneous eye opening but no cognizant response to simple commands) Speech:: none Answers questions:: no Respiratory:: shallow breathing Cardiovascular: irregular Abdomen: soft Extremities:: deformities Decubitus:: unchanged Tracheostomy:: to blow by Complaints:: none ASSESSMENT & PLAN Assessment: Pt bed bound with all above etilologies, chronic, and fully dependent for all care . Prognosis very poor. Family considering Hospice care and possible transfer closer to home at [place] if possible. From 06-08-24 to 06-15-24 pt was in Acute Hospital for re-accumulation of Malignant Pleural effusion and requiring drainage for comfort. Returned from acute care on 08-10-24. Current medications reviewed and continued as ongoing. VSS. No distress. Objective achievable is comfort. Plan: Maintain all support with objective of ensuring comfort.Pt code status changed to comfort measures only and no transfers to acute care
[2024-08-19] VITALS (10 sets, daily range): BP systolic 129–140; BP diastolic 65–77; PULSE 63–79; RESP 21–31; TEMP 36.1–36.8; O2SAT 98–100
[2024-08-19] MEDS: IPRATROPIUM/ALBUTEROL 3 ML AMPUL.NEB INH ×4 (00:38→18:45)
[2024-08-19] MEDS: PIPERACILLIN SODIUM/TAZOBACTAM 3.375 GM VIAL IV ×3 (05:46→21:48)
--- NOTE | 2024-08-19 05:48 | PC.NURSE ---
Resident remains on IV antibiotics Vanco daily and Zosyn every 8 hours, no side effects noted, 22 g IV to left FA remains patent
[2024-08-19] MEDS: AMIODARONE 200 MG TABLET GT (08:14)
[2024-08-19] MEDS: CALCIUM GT (08:15)
[2024-08-19] MEDS: ASCORBIC ACID 500 MG TABLET GT ×2 (08:15→20:11)
[2024-08-19] MEDS: AMLODIPINE 10 MG TABLET GT (08:15)
[2024-08-19] MEDS: VIT D3 GT (08:15)
[2024-08-19] MEDS: SENNOSIDES 8.6 MG TABLET GT ×2 (08:16→20:11)
[2024-08-19] MEDS: FUROSEMIDE 20 MG TABLET GT (08:16)
[2024-08-19] MEDS: MULTIVITAMIN 1 TAB TABLET GT (08:16)
[2024-08-19] MEDS: SODIUM CHLORIDE 0.9% IV (10:00)
[2024-08-19] MEDS: VANCOMYCIN IV (10:00)
[2024-08-19] MEDS: ACETAMINOPHEN 325 MG TABLET 650 MG GT ×2 (11:42→18:20)
[2024-08-19] MEDS: ATORVASTATIN 40 MG TABLET 80 MG GT (20:11)
[2024-08-20] VITALS (8 sets, daily range): BP systolic 98–168; BP diastolic 63–71; PULSE 64–78; RESP 20–38; TEMP 35.9–36.3; O2SAT 99–100
[2024-08-20] MEDS: IPRATROPIUM/ALBUTEROL 3 ML AMPUL.NEB INH ×4 (00:08→18:55)
[2024-08-20] MEDS: PIPERACILLIN SODIUM/TAZOBACTAM 3.375 GM VIAL IV ×3 (05:10→21:31)
--- NOTE | 2024-08-20 05:59 | PC.NURSE ---
Resident remains on IV antibiotics Zosyn and Vanco, no side effects noted. Vanco trough and renal panel ordered for 0830 today prior to 0900 dose.
[2024-08-20] MEDS: AMIODARONE 200 MG TABLET GT (08:09)
[2024-08-20] MEDS: AMLODIPINE 10 MG TABLET GT (08:10)
[2024-08-20] MEDS: ASCORBIC ACID 500 MG TABLET GT ×2 (08:10→20:10)
[2024-08-20] MEDS: VIT D3 GT (08:10)
[2024-08-20] MEDS: MULTIVITAMIN 1 TAB TABLET GT (08:10)
[2024-08-20] MEDS: FUROSEMIDE 20 MG TABLET GT (08:10)
[2024-08-20] MEDS: CALCIUM GT (08:10)
[2024-08-20] MEDS: SENNOSIDES 8.6 MG TABLET GT ×2 (08:11→20:11)
--- NOTE | 2024-08-20 09:02 | PC.NURSE ---
Last vanco trough on the noted to be 20.9 and on Vancomycin 750 mg daily. Resident was scheduled to have Vanco trough and renal panel at 08:30, no lab was drawn at this time. Called lab to follow up.
[2024-08-20 09:40] LABS: Albumin, Serum 2.8 gm/dL (3.4-4.8); Anion Gap 7 (7-16); BUN/Creatinine Ratio 51 Ratio (12-20); Blood Urea Nitrogen 46 mg/dL (9-23); Calcium 7.9 mg/dL (8.3-10.6); Calcium (Corrected) 8.9 mg/dL (8.5-10.1); Carbon Dioxide 27.6 mMol/L (20.0-31.0); Chloride 109 mMol/L (98-107); Creatinine (Component) 0.9 mg/dL (0.6-1.3); Estimated Creatinine Clearance 39.9 mL/min (>60); Glucose 153 mg/dL (74-106); Osmolality,Calculated 301 (275-295); Phosphorous 4.1 mg/dL (2.4-5.1); Potassium 4.7 mMol/L (3.4-5.1); Sodium 144 mMol/L (136-145); Vancomycin,Trough 22.9 mcg/mL (5.0-10.0); eGFR > 60 See Note
--- NOTE | 2024-08-20 09:52 | PC.NURSE ---
Vanco trough result 22.9, BUN 46 and creatinine 0.9. Faxed results to [facility] for recommendations , called and spoke with Onofre the pharmacist , verbally mentioned about the results. Recommended not to give the dose and they will fax/call for more recommendations.
--- NOTE | 2024-08-20 12:44 | PC.LAC ---
Received a call from Onofre pharmacist from [facility] . Hold vancomycin dose today and tomorrow and do Vanco trough and renal panel tomorrow at 08:30.
[2024-08-20] MEDS: ATORVASTATIN 40 MG TABLET 80 MG GT (20:11)
[2024-08-21] VITALS (11 sets, daily range): BP systolic 112–144; BP diastolic 67–82; PULSE 67–82; RESP 22–28; TEMP 36.2–36.9; O2SAT 98–100
[2024-08-21] MEDS: IPRATROPIUM/ALBUTEROL 3 ML AMPUL.NEB INH ×4 (01:40→19:14)
[2024-08-21] MEDS: AMIODARONE 200 MG TABLET GT (08:00)
[2024-08-21] MEDS: AMLODIPINE 10 MG TABLET GT (08:01)
[2024-08-21] MEDS: CALCIUM GT (08:02)
[2024-08-21] MEDS: ASCORBIC ACID 500 MG TABLET GT ×2 (08:02→20:23)
[2024-08-21] MEDS: VIT D3 GT (08:02)
[2024-08-21] MEDS: FUROSEMIDE 20 MG TABLET GT (08:03)
[2024-08-21] MEDS: SENNOSIDES 8.6 MG TABLET GT ×2 (08:03→20:27)
[2024-08-21] MEDS: MULTIVITAMIN 1 TAB TABLET GT (08:03)
[2024-08-21 09:02] LABS: Albumin, Serum 2.7 gm/dL (3.4-4.8); Anion Gap 6 (7-16); BUN/Creatinine Ratio 42 Ratio (12-20); Blood Urea Nitrogen 38 mg/dL (9-23); Calcium 7.7 mg/dL (8.3-10.6); Calcium (Corrected) 8.7 mg/dL (8.5-10.1); Carbon Dioxide 27.7 mMol/L (20.0-31.0); Chloride 109 mMol/L (98-107); Creatinine (Component) 0.9 mg/dL (0.6-1.3); Estimated Creatinine Clearance 39.9 mL/min (>60); Glucose 151 mg/dL (74-106); Osmolality,Calculated 296 (275-295); Phosphorous 3.7 mg/dL (2.4-5.1); Potassium 4.5 mMol/L (3.4-5.1); Sodium 143 mMol/L (136-145); Vancomycin,Trough 15.8 mcg/mL (5.0-10.0); eGFR > 60 See Note
--- NOTE | 2024-08-21 12:36 | PC.NURSE ---
Katie reviewed resident's Vanco trough and renal panel results, recommended to decrease the dose of vanco to 500 mg daily and do the vanco trough and renal panel tomorrow at 08:30. Received faxed recommendation from pharmacy to do a vanco trough and renal panel on 08/24 at 08:30. Called [facility], spoke with Jaimee and clarified. Labs to be done tomorrow too before the 09:00 dose, no need to wait for the results and do another lab draw on the per Jaimee.
[2024-08-21] MEDS: PIPERACILLIN SODIUM/TAZOBACTAM 3.375 GM VIAL IV ×2 (13:22→21:58)
[2024-08-21] MEDS: ATORVASTATIN 40 MG TABLET 80 MG GT (20:27)
[2024-08-22] VITALS (9 sets, daily range): BP systolic 114–146; BP diastolic 67–76; PULSE 61–97; RESP 18–33; TEMP 36.2–36.7; O2SAT 97–100
[2024-08-22] MEDS: IPRATROPIUM/ALBUTEROL 3 ML AMPUL.NEB INH ×4 (01:06→19:34)
[2024-08-22] MEDS: PIPERACILLIN SODIUM/TAZOBACTAM 3.375 GM VIAL IV ×3 (05:13→21:33)
[2024-08-22 08:43] LABS: Albumin, Serum 2.7 gm/dL (3.4-4.8); Anion Gap 10 (7-16); BUN/Creatinine Ratio 40 Ratio (12-20); Blood Urea Nitrogen 36 mg/dL (9-23); Calcium 7.8 mg/dL (8.3-10.6); Calcium (Corrected) 8.8 mg/dL (8.5-10.1); Carbon Dioxide 26.4 mMol/L (20.0-31.0); Chloride 108 mMol/L (98-107); Creatinine (Component) 0.9 mg/dL (0.6-1.3); Estimated Creatinine Clearance 40.0 mL/min (>60); Glucose 139 mg/dL (74-106); Osmolality,Calculated 297 (275-295); Phosphorous 3.9 mg/dL (2.4-5.1); Potassium 4.6 mMol/L (3.4-5.1); Sodium 144 mMol/L (136-145); Vancomycin,Trough 12.0 mcg/mL (5.0-10.0); eGFR > 60 See Note
[2024-08-22] MEDS: AMIODARONE 200 MG TABLET GT (08:47)
[2024-08-22] MEDS: AMLODIPINE 10 MG TABLET GT (08:47)
[2024-08-22] MEDS: MULTIVITAMIN 1 TAB TABLET GT (08:48)
[2024-08-22] MEDS: SENNOSIDES 8.6 MG TABLET GT ×2 (08:48→20:25)
[2024-08-22] MEDS: ASCORBIC ACID 500 MG TABLET GT ×2 (08:48→20:24)
[2024-08-22] MEDS: CALCIUM GT (08:48)
[2024-08-22] MEDS: VIT D3 GT (08:48)
[2024-08-22] MEDS: FUROSEMIDE 20 MG TABLET GT (08:48)
[2024-08-22] MEDS: SODIUM CHLORIDE 0.9% IV (09:30)
[2024-08-22] MEDS: VANCOMYCIN IV (09:30)
--- NOTE | 2024-08-22 12:20 | PC.SS ---
Resident is laying in bed with head of the bed elevated with call light properly placed with no signs of distress. Resident is has no changes in care or condition, she remains on vent with trach in place and GT for medication and nutrition. She will continue to have all subacute care needs met by staff. This SSD will continue to make contact with resident and will offer support as needed.
[2024-08-22] MEDS: ATORVASTATIN 40 MG TABLET 80 MG GT (20:25)
[2024-08-22] MEDS: ACETAMINOPHEN 325 MG TABLET 650 MG GT (20:26)
--- NOTE | 2024-08-22 22:43 | ESPR_ITS ---
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 (7) Decubital ulcer: Status: Chronic (8) Deep venous thrombosis: Status: Chronic Qualifiers: DVT location: lower extremity Affected thrombotic vein of extremity: unspecified lower extremity proximal vein Chronicity: chronic Laterality: unspecified laterality Qualified Code(s): I82.5Y9 - Chronic embolism and thrombosis of unspecified deep veins of unspecified proximal lower extremity (9) Diastolic CHF: Status: Chronic Qualifiers: Heart failure chronicity: chronic Qualified Code(s): I50.32 - Chronic diastolic (congestive) heart failure OBJECTIVE Most recent vital signs: Last Vital Signs Temp 97.2 F 08/22/24 17:38 Pulse 61 08/22/24 17:38 Resp 29 H 08/22/24 17:38 BP 114/67 08/22/24 17:38 Pulse Ox 97 08/22/24 17:38 O2 Del Method Mechanical Ventilation 08/21/24 17:04 O2 Flow Rate 99 08/20/24 12:37 FiO2 30 08/22/24 22:00 Neurological:: PVS (spontaneous eye opening but no cognizant response to simple commands) Speech:: none Answers questions:: no Respiratory:: shallow breathing Cardiovascular: irregular Abdomen: soft Extremities:: deformities Decubitus:: unchanged Tracheostomy:: to blow by Complaints:: none ASSESSMENT & PLAN Assessment: Pt bed bound with all above etilologies, chronic, and fully dependent for all care . Prognosis very poor. Family considering Hospice care and possible transfer closer to home at [place] if possible. From 06-08-24 to 06-15-24 pt was in Acute Hospital for re-accumulation of Malignant Pleural effusion and requiring drainage for comfort. Returned from acute care on 08-10-24. Current medications reviewed and continued as ongoing. VSS. No distress. Objective achievable is comfort. No distress noted. Pt gained lot of weight with fluid overload during stay in acute care Plan: Maintain all support with objective of ensuring comfort.Pt code status changed to comfort measures only and no transfers to acute care
[2024-08-23] VITALS (10 sets, daily range): BP systolic 136–150; BP diastolic 71–77; PULSE 73–83; RESP 22–35; TEMP 36.3–36.8; O2SAT 96–100
[2024-08-23] MEDS: IPRATROPIUM/ALBUTEROL 3 ML AMPUL.NEB INH ×4 (00:21→19:04)
[2024-08-23] MEDS: PIPERACILLIN SODIUM/TAZOBACTAM 3.375 GM VIAL IV ×3 (05:31→21:27)
--- NOTE | 2024-08-23 05:56 | PC.NURSE ---
Reasaf remains on IV antibiotics Zosyn and Vanco, no side effects noted. Vanco trough and renal panel on 08/24/24 at 0830.
[2024-08-23] MEDS: VANCOMYCIN IV (08:44)
[2024-08-23] MEDS: SODIUM CHLORIDE 0.9% IV (08:44)
--- NOTE | 2024-08-23 08:49 | PC.NURSE ---
Resident remains on IV antibiotics. no A/R from medication noted. Will continue to monitor.
[2024-08-23] MEDS: AMIODARONE 200 MG TABLET GT (09:52)
[2024-08-23] MEDS: AMLODIPINE 10 MG TABLET GT (09:53)
[2024-08-23] MEDS: ASCORBIC ACID 500 MG TABLET GT ×2 (09:54→21:20)
[2024-08-23] MEDS: CALCIUM GT (09:54)
[2024-08-23] MEDS: FUROSEMIDE 20 MG TABLET GT (09:54)
[2024-08-23] MEDS: VIT D3 GT (09:54)
[2024-08-23] MEDS: SENNOSIDES 8.6 MG TABLET GT ×2 (09:55→21:21)
[2024-08-23] MEDS: MULTIVITAMIN 1 TAB TABLET GT (09:55)
[2024-08-23] MEDS: ATORVASTATIN 40 MG TABLET 80 MG GT (21:20)
[2024-08-23] MEDS: ACETAMINOPHEN 325 MG TABLET 650 MG GT (21:23)
[2024-08-24] VITALS (9 sets, daily range): BP systolic 98–137; BP diastolic 71–83; PULSE 74–85; RESP 20–28; TEMP 36.3–37; O2SAT 98–100
[2024-08-24] MEDS: IPRATROPIUM/ALBUTEROL 3 ML AMPUL.NEB INH ×4 (00:59→18:40)
--- NOTE | 2024-08-24 03:14 | PC.RT ---
per nurse pt ventilator alarming high pressure, came to assess pt pip 50s, suction pt a moderate amount of yellow sputum, pip pressures improved to 32, spo2 1100%, hr 85 Rr 18.
[2024-08-24] MEDS: PIPERACILLIN SODIUM/TAZOBACTAM 3.375 GM VIAL IV ×3 (05:47→21:16)
[2024-08-24] MEDS: AMIODARONE 200 MG TABLET GT (08:10)
[2024-08-24] MEDS: AMLODIPINE 10 MG TABLET GT (08:11)
[2024-08-24] MEDS: VIT D3 GT (08:11)
[2024-08-24] MEDS: CALCIUM GT (08:11)
[2024-08-24] MEDS: ASCORBIC ACID 500 MG TABLET GT ×2 (08:11→20:38)
[2024-08-24] MEDS: FUROSEMIDE 20 MG TABLET GT (08:12)
[2024-08-24] MEDS: SENNOSIDES 8.6 MG TABLET GT ×2 (08:13→20:39)
[2024-08-24] MEDS: MULTIVITAMIN 1 TAB TABLET GT (08:13)
[2024-08-24 09:10] LABS: Albumin, Serum 2.8 gm/dL (3.4-4.8); Anion Gap 10 (7-16); BUN/Creatinine Ratio 41 Ratio (12-20); Blood Urea Nitrogen 37 mg/dL (9-23); Calcium 8.0 mg/dL (8.3-10.6); Calcium (Corrected) 9.0 mg/dL (8.5-10.1); Carbon Dioxide 26.8 mMol/L (20.0-31.0); Chloride 109 mMol/L (98-107); Creatinine (Component) 0.9 mg/dL (0.6-1.3); Estimated Creatinine Clearance 40.0 mL/min (>60); Glucose 139 mg/dL (74-106); Osmolality,Calculated 301 (275-295); Phosphorous 3.6 mg/dL (2.4-5.1); Potassium 4.9 mMol/L (3.4-5.1); Sodium 146 mMol/L (136-145); Vancomycin,Trough 14.8 mcg/mL (5.0-10.0); eGFR > 60 See Note
--- NOTE | 2024-08-24 09:48 | ESPR_ITS ---
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 (7) Decubital ulcer: Status: Chronic (8) Deep venous thrombosis: Status: Chronic Qualifiers: DVT location: lower extremity Affected thrombotic vein of extremity: unspecified lower extremity proximal vein Chronicity: chronic Laterality: unspecified laterality Qualified Code(s): I82.5Y9 - Chronic embolism and thrombosis of unspecified deep veins of unspecified proximal lower extremity (9) Diastolic CHF: Status: Chronic Qualifiers: Heart failure chronicity: chronic Qualified Code(s): I50.32 - Chronic diastolic (congestive) heart failure OBJECTIVE Most recent vital signs: Last Vital Signs Temp 97.4 F 08/24/24 06:00 Pulse 81 08/24/24 08:11 Resp 28 H 08/24/24 07:49 BP 135/78 H 08/24/24 08:11 Pulse Ox 100 08/24/24 07:49 O2 Del Method Mechanical Ventilation 08/21/24 17:04 O2 Flow Rate 99 08/20/24 12:37 FiO2 30 08/24/24 07:49 Neurological:: PVS (spontaneous eye opening but no cognizant response to simple commands) Speech:: none Answers questions:: no Respiratory:: shallow breathing Cardiovascular: irregular Abdomen: soft Extremities:: deformities Decubitus:: unchanged Tracheostomy:: to blow by Complaints:: none ASSESSMENT & PLAN Assessment: Pt bed bound with all above etilologies, chronic, and fully dependent for all care . Prognosis very poor. Family considering Hospice care and possible transfer closer to home at [place] if possible. From 06-08-24 to 06-15-24 pt was in Acute Hospital for re-accumulation of Malignant Pleural effusion and requiring drainage for comfort. Returned from acute care on 08-10-24. Current medications reviewed and continued as ongoing. VSS. No distress. Objective achievable is comfort. No distress noted. Pt gained lot of weight with fluid overload during stay in acute care. Diuresis continued for comfort. Plan: Maintain all support with objective of ensuring comfort.Pt code status changed to comfort measures only and no transfers to acute care
[2024-08-24] MEDS: ATORVASTATIN 40 MG TABLET 80 MG GT (20:39)
[2024-08-25] VITALS (10 sets, daily range): BP systolic 92–135; BP diastolic 65–78; PULSE 73–90; RESP 21–29; TEMP 36.3–36.9; O2SAT 97–99
[2024-08-25] MEDS: IPRATROPIUM/ALBUTEROL 3 ML AMPUL.NEB INH ×4 (00:21→18:22)
[2024-08-25] MEDS: PIPERACILLIN SODIUM/TAZOBACTAM 3.375 GM VIAL IV ×3 (06:06→21:05)
[2024-08-25] MEDS: AMIODARONE 200 MG TABLET GT (08:36)
[2024-08-25] MEDS: AMLODIPINE 10 MG TABLET GT (08:37)
[2024-08-25] MEDS: ASCORBIC ACID 500 MG TABLET GT ×2 (08:38→21:34)
[2024-08-25] MEDS: FUROSEMIDE 20 MG TABLET GT (08:39)
[2024-08-25] MEDS: VIT D3 GT (08:39)
[2024-08-25] MEDS: CALCIUM GT (08:39)
[2024-08-25] MEDS: MULTIVITAMIN 1 TAB TABLET GT (08:40)
[2024-08-25] MEDS: SODIUM CHLORIDE 0.9% IV ×2 (09:44→10:47)
[2024-08-25] MEDS: VANCOMYCIN IV ×2 (09:44→10:47)
[2024-08-25] MEDS: ATORVASTATIN 40 MG TABLET 80 MG GT (21:34)
[2024-08-25] MEDS: SENNOSIDES 8.6 MG TABLET GT (21:35)
[2024-08-26] VITALS (10 sets, daily range): BP systolic 100–163; BP diastolic 63–82; PULSE 60–96; RESP 15–28; TEMP 36.2–36.4; O2SAT 95–100
[2024-08-26] MEDS: IPRATROPIUM/ALBUTEROL 3 ML AMPUL.NEB INH ×4 (00:13→18:39)
[2024-08-26] MEDS: INSULIN REGULAR, HUMAN 100 UNIT/ML VIAL SC (01:00)
[2024-08-26] MEDS: PIPERACILLIN SODIUM/TAZOBACTAM 3.375 GM VIAL IV ×3 (05:58→22:02)
[2024-08-26 07:22] LABS: Basophils # (Auto) 0.1 Thou/mm3 (0.0-0.2); Basophils % (Auto) 0 % (0-2.5); Eosinophils # (Auto) 0.6 Thou/mm3 (0.0-0.5); Eosinophils % (Auto) 5 % (0-10); Hematocrit 27.7 % (36.0-46.0); Hemoglobin 9.0 g/dL (12.0-16.0); Immature Granulocytes Auto 0.04 Thou/mm3 (0.00-0.00); Lymphocytes # (Auto) 0.7 Thou/mm3 (1.0-4.8); Lymphocytes % (Auto) 6 % (10-50); Mean Corpuscular HGB Conc 32.5 g/dl (31.0-37.0); Mean Corpuscular Hemoglobin 29.3 pg (25.0-35.0); Mean Corpuscular Volume 90 fL (80-100); Monocytes # (Auto) 1.0 Thou/mm3 (0.0-0.8); Monocytes % (Auto) 9 % (0-12); Neutrophils # (Auto) 9.0 Thou/mm3 (1.8-7.7); Neutrophils % (Auto) 79 % (37-80); Nucleated Red Blood Cell # 0.00 Thou/mm3 (0.00-0.00); Nucleated Red Blood Cell % 0 /100 WBC (0); Platelet Count 225 Thou/mm3 (140-440); RDW Standard Deviation 57.1 fL (36.4-46.3); Red Blood Count 3.07 Miln/mm3 (4.00-5.20); White Blood Count 11.4 Thou/mm3 (3.6-11.0)
[2024-08-26 07:44] LABS: Alanine Aminotransferase 20 U/L (10-49); Albumin, Serum 2.3 gm/dL (3.4-4.8); Albumin/Globulin Ratio 0.9 (1.2-2.2); Alkaline Phosphatase 163 U/L (46-116); Anion Gap 10 (7-16); Aspartate Amino Transferase 24 U/L (0-34); BUN/Creatinine Ratio 51 Ratio (12-20); Bilirubin,Total 0.3 mg/dL (0.3-1.2); Blood Urea Nitrogen 51 mg/dL (9-23); Calcium 7.6 mg/dL (8.3-10.6); Calcium (Corrected) 9.0 mg/dL (8.5-10.1); Carbon Dioxide 27.4 mMol/L (20.0-31.0); Chloride 110 mMol/L (98-107); Creatinine (Component) 1.0 mg/dL (0.6-1.3); Estimated Creatinine Clearance 36.0 mL/min (>60); Globulin 2.7 gm/dL (2.3-3.5); Glucose 136 mg/dL (74-106); Osmolality,Calculated 308 (275-295); Potassium 4.7 mMol/L (3.4-5.1); Sodium 147 mMol/L (136-145); Total Protein 5.0 gm/dL (5.7-8.2); eGFR 56 See Note
[2024-08-26] MEDS: AMIODARONE 200 MG TABLET GT (08:07)
[2024-08-26] MEDS: MULTIVITAMIN 1 TAB TABLET GT (08:08)
[2024-08-26] MEDS: ASCORBIC ACID 500 MG TABLET GT ×2 (08:08→21:20)
[2024-08-26] MEDS: VIT D3 GT (08:08)
[2024-08-26] MEDS: CALCIUM GT (08:08)
[2024-08-26] MEDS: FUROSEMIDE 20 MG TABLET GT (08:08)
[2024-08-26] MEDS: SENNOSIDES 8.6 MG TABLET GT ×2 (08:08→21:20)
[2024-08-26] MEDS: AMLODIPINE 10 MG TABLET GT (08:08)
[2024-08-26] MEDS: VANCOMYCIN IV (09:06)
[2024-08-26] MEDS: SODIUM CHLORIDE 0.9% IV (09:06)
--- NOTE | 2024-08-26 16:58 | PC.NURSE ---
Received CBC and CMP result received, . made aware no new order received.
[2024-08-26] MEDS: ATORVASTATIN 40 MG TABLET 80 MG GT (21:20)
[2024-08-27] VITALS (10 sets, daily range): BP systolic 123–166; BP diastolic 50–66; PULSE 71–86; RESP 18–27; TEMP 36.2–36.6; O2SAT 95–100
[2024-08-27] MEDS: IPRATROPIUM/ALBUTEROL 3 ML AMPUL.NEB INH ×4 (00:30→19:11)
[2024-08-27] MEDS: INSULIN REGULAR, HUMAN 100 UNIT/ML VIAL SC ×2 (05:10→11:59)
[2024-08-27] MEDS: PIPERACILLIN SODIUM/TAZOBACTAM 3.375 GM VIAL IV ×3 (05:35→21:51)
[2024-08-27] MEDS: AMIODARONE 200 MG TABLET GT (08:24)
[2024-08-27] MEDS: AMLODIPINE 10 MG TABLET GT (08:24)
[2024-08-27] MEDS: ASCORBIC ACID 500 MG TABLET GT ×2 (08:25→20:56)
[2024-08-27] MEDS: MULTIVITAMIN 1 TAB TABLET GT (08:26)
[2024-08-27] MEDS: CALCIUM GT (08:26)
[2024-08-27] MEDS: SENNOSIDES 8.6 MG TABLET GT ×2 (08:26→20:57)
[2024-08-27] MEDS: VIT D3 GT (08:26)
[2024-08-27] MEDS: FUROSEMIDE 20 MG TABLET GT (08:26)
[2024-08-27] MEDS: VANCOMYCIN IV (08:49)
[2024-08-27] MEDS: SODIUM CHLORIDE 0.9% IV (08:49)
[2024-08-27] MEDS: ATORVASTATIN 40 MG TABLET 80 MG GT (20:57)
[2024-08-28] VITALS (8 sets, daily range): BP systolic 104–146; BP diastolic 65–75; PULSE 68–99; RESP 22–37; TEMP 36.4–36.6; O2SAT 94–99
[2024-08-28] MEDS: IPRATROPIUM/ALBUTEROL 3 ML AMPUL.NEB INH ×4 (00:42→18:49)
[2024-08-28] MEDS: PIPERACILLIN SODIUM/TAZOBACTAM 3.375 GM VIAL IV ×2 (06:14→22:11)
[2024-08-28] MEDS: VIT D3 GT (08:05)
[2024-08-28] MEDS: ASCORBIC ACID 500 MG TABLET GT ×2 (08:05→20:20)
[2024-08-28] MEDS: CALCIUM GT (08:05)
[2024-08-28] MEDS: AMLODIPINE 10 MG TABLET GT (08:05)
[2024-08-28] MEDS: AMIODARONE 200 MG TABLET GT (08:05)
[2024-08-28] MEDS: MULTIVITAMIN 1 TAB TABLET GT (08:06)
[2024-08-28] MEDS: FUROSEMIDE 20 MG TABLET GT (08:06)
[2024-08-28] MEDS: SENNOSIDES 8.6 MG TABLET GT ×2 (08:07→20:20)
--- NOTE | 2024-08-28 09:00 | PC.NURSE ---
Addendum entered by Brandi Gudino RN 08/28/24 09:13: Dose to be given 30 minutes after vanco trough was drawn per pharmacy Original Note: Resident on vancomycin 500 mg at 09:00, vanco trough and renal was ordered today at 08:30, 30 minutes before the dose. No results or pending results in [facility] noted. Called lab and spoke with Lala London
[2024-08-28 09:44] LABS: Albumin, Serum 2.7 gm/dL (3.4-4.8); Anion Gap 9 (7-16); BUN/Creatinine Ratio 46 Ratio (12-20); Blood Urea Nitrogen 46 mg/dL (9-23); Calcium 7.8 mg/dL (8.3-10.6); Calcium (Corrected) 8.8 mg/dL (8.5-10.1); Carbon Dioxide 27.6 mMol/L (20.0-31.0); Chloride 110 mMol/L (98-107); Creatinine (Component) 1.0 mg/dL (0.6-1.3); Estimated Creatinine Clearance 36.0 mL/min (>60); Glucose 160 mg/dL (74-106); Osmolality,Calculated 307 (275-295); Phosphorous 3.5 mg/dL (2.4-5.1); Potassium 4.6 mMol/L (3.4-5.1); Sodium 147 mMol/L (136-145); Vancomycin,Trough 16.7 mcg/mL (5.0-10.0); eGFR 56 See Note
[2024-08-28] MEDS: SODIUM CHLORIDE 0.9% IV (09:58)
[2024-08-28] MEDS: VANCOMYCIN IV (09:58)
--- NOTE | 2024-08-28 10:15 | PC.NURSE ---
resident on vancomycin 500 mg daily, with vanco trough result of 16.7. Called [facility] pharmacist and spoke with Hansa, continue on current dose and to do labs again on Tuesday. As per Hansa, therapeutic range for Vanco trough is 10-20 for MRSA
[2024-08-28] MEDS: INSULIN REGULAR, HUMAN 100 UNIT/ML VIAL SC (11:33)
[2024-08-28] MEDS: ATORVASTATIN 40 MG TABLET 80 MG GT (20:20)
[2024-08-29] VITALS (9 sets, daily range): BP systolic 135–147; BP diastolic 66–76; PULSE 62–92; RESP 19–33; TEMP 36.3–36.8; O2SAT 96–99
[2024-08-29] MEDS: IPRATROPIUM/ALBUTEROL 3 ML AMPUL.NEB INH ×4 (01:06→18:17)
[2024-08-29] MEDS: AMIODARONE 200 MG TABLET GT (08:14)
[2024-08-29] MEDS: ASCORBIC ACID 500 MG TABLET GT ×2 (08:14→20:19)
[2024-08-29] MEDS: AMLODIPINE 10 MG TABLET GT (08:14)
[2024-08-29] MEDS: FUROSEMIDE 20 MG TABLET GT (08:15)
[2024-08-29] MEDS: SENNOSIDES 8.6 MG TABLET GT ×2 (08:15→20:19)
[2024-08-29] MEDS: VIT D3 GT (08:15)
[2024-08-29] MEDS: MULTIVITAMIN 1 TAB TABLET GT (08:15)
[2024-08-29] MEDS: CALCIUM GT (08:15)
[2024-08-29] MEDS: VANCOMYCIN IV (08:29)
[2024-08-29] MEDS: SODIUM CHLORIDE 0.9% IV (08:29)
[2024-08-29] MEDS: PIPERACILLIN SODIUM/TAZOBACTAM 3.375 GM VIAL IV ×2 (14:00→22:00)
--- NOTE | 2024-08-29 15:50 | PD.SAPROG ---
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 (7) Decubital ulcer: Status: Chronic (8) Deep venous thrombosis: Status: Chronic Qualifiers: DVT location: lower extremity Affected thrombotic vein of extremity: unspecified lower extremity proximal vein Chronicity: chronic Laterality: unspecified laterality Qualified Code(s): I82.5Y9 - Chronic embolism and thrombosis of unspecified deep veins of unspecified proximal lower extremity (9) Diastolic CHF: Status: Chronic Qualifiers: Heart failure chronicity: chronic Qualified Code(s): I50.32 - Chronic diastolic (congestive) heart failure OBJECTIVE Most recent vital signs: Last Vital Signs Temp 97.8 F 09/02/24 05:43 Pulse 68 09/02/24 07:08 Resp 26 H 09/02/24 07:08 BP 144/75 H 09/02/24 05:43 Pulse Ox 100 09/02/24 07:08 O2 Del Method Mechanical Ventilation 09/02/24 05:43 O2 Flow Rate 99 08/20/24 12:37 FiO2 30 09/02/24 07:08 Neurological:: PVS (spontaneous eye opening but no cognizant response to simple commands) Speech:: none Answers questions:: no Respiratory:: shallow breathing Cardiovascular: irregular Abdomen: soft Extremities:: deformities Decubitus:: unchanged Tracheostomy:: to blow by Complaints:: none ASSESSMENT & PLAN Assessment: Pt bed bound with all above etilologies, chronic, and fully dependent for all care . Prognosis very poor. Family considering Hospice care and possible transfer closer to home at [place] if possible. From 06-08-24 to 06-15-24 pt was in Acute Hospital for re-accumulation of Malignant Pleural effusion and requiring drainage for comfort. Returned from acute care on 08-10-24. Current medications reviewed and continued as ongoing. VSS. No distress. Objective achievable is comfort. No distress noted. Pt gained lot of weight with fluid overload during stay in acute care. Diuresis continued for comfort. Plan: Maintain all support with objective of ensuring comfort.Pt code status changed to comfort measures only and no transfers to acute care
[2024-08-29] MEDS: INSULIN REGULAR, HUMAN 100 UNIT/ML VIAL SC (17:13)
[2024-08-29] MEDS: ATORVASTATIN 40 MG TABLET 80 MG GT (20:19)
[2024-08-30] VITALS (10 sets, daily range): BP systolic 123–140; BP diastolic 60–79; PULSE 72–83; RESP 20–27; TEMP 36.6–36.8; O2SAT 96–100
[2024-08-30] MEDS: IPRATROPIUM/ALBUTEROL 3 ML AMPUL.NEB INH ×3 (00:46→18:24)
[2024-08-30] MEDS: PIPERACILLIN SODIUM/TAZOBACTAM 3.375 GM VIAL IV ×3 (05:00→21:30)
--- NOTE | 2024-08-30 06:00 | PC.NURSE ---
Resident on Vanco daily and Zosyn [id number] IV, new 24G IV to left AC, no s/s of infection or infiltration, no adverse reaction or side effects, no s/s of pain or distress, resident in room resting, call light within reach, HOB elevated, resident afebrile.
[2024-08-30] MEDS: AMIODARONE 200 MG TABLET GT (08:22)
[2024-08-30] MEDS: AMLODIPINE 10 MG TABLET GT (08:23)
[2024-08-30] MEDS: ASCORBIC ACID 500 MG TABLET GT ×2 (08:24→20:38)
[2024-08-30] MEDS: MULTIVITAMIN 1 TAB TABLET GT (08:27)
[2024-08-30] MEDS: FUROSEMIDE 20 MG TABLET GT (08:27)
[2024-08-30] MEDS: CALCIUM GT (08:27)
[2024-08-30] MEDS: VIT D3 GT (08:27)
[2024-08-30] MEDS: SENNOSIDES 8.6 MG TABLET GT ×2 (08:28→20:37)
[2024-08-30] MEDS: SODIUM CHLORIDE 0.9% IV (09:27)
[2024-08-30] MEDS: VANCOMYCIN IV (09:27)
[2024-08-30] MEDS: INSULIN REGULAR, HUMAN 100 UNIT/ML VIAL SC (12:09)
[2024-08-30] MEDS: ATORVASTATIN 40 MG TABLET 80 MG GT (20:38)
[2024-08-31] VITALS (10 sets, daily range): BP systolic 124–145; BP diastolic 68–72; PULSE 73–83; RESP 18–33; TEMP 36.3–37.2; O2SAT 96–99
[2024-08-31] MEDS: IPRATROPIUM/ALBUTEROL 3 ML AMPUL.NEB INH ×4 (01:13→16:00)
[2024-08-31] MEDS: AMIODARONE 200 MG TABLET GT (09:04)
[2024-08-31] MEDS: FUROSEMIDE 20 MG TABLET GT (09:05)
[2024-08-31] MEDS: AMLODIPINE 10 MG TABLET GT (09:05)
[2024-08-31] MEDS: VIT D3 GT (09:05)
[2024-08-31] MEDS: CALCIUM GT (09:05)
[2024-08-31] MEDS: ASCORBIC ACID 500 MG TABLET GT ×2 (09:05→20:10)
[2024-08-31] MEDS: MULTIVITAMIN 1 TAB TABLET GT (09:05)
[2024-08-31] MEDS: SENNOSIDES 8.6 MG TABLET GT ×2 (09:05→20:10)
[2024-08-31] MEDS: SODIUM CHLORIDE 0.9% IV (09:25)
[2024-08-31] MEDS: VANCOMYCIN IV (09:25)
[2024-08-31 09:33] LABS: Albumin, Serum 2.9 gm/dL (3.4-4.8); Anion Gap 10 (7-16); BUN/Creatinine Ratio 36 Ratio (12-20); Blood Urea Nitrogen 32 mg/dL (9-23); Calcium 7.8 mg/dL (8.3-10.6); Calcium (Corrected) 8.7 mg/dL (8.5-10.1); Carbon Dioxide 28.0 mMol/L (20.0-31.0); Chloride 110 mMol/L (98-107); Creatinine (Component) 0.9 mg/dL (0.6-1.3); Estimated Creatinine Clearance 39.3 mL/min (>60); Glucose 151 mg/dL (74-106); Osmolality,Calculated 304 (275-295); Phosphorous 3.7 mg/dL (2.4-5.1); Potassium 4.5 mMol/L (3.4-5.1); Sodium 148 mMol/L (136-145); Vancomycin,Trough 15.9 mcg/mL (5.0-10.0); eGFR > 60 See Note
[2024-08-31] MEDS: INSULIN REGULAR, HUMAN 100 UNIT/ML VIAL SC (11:20)
--- NOTE | 2024-08-31 12:45 | PC.NURSE ---
Per [facility] Pharmist, continue with current dose, no more vanco trough needed.
--- NOTE | 2024-08-31 15:43 | PC.NURSE ---
Ms. Guaman continues on Vanco daily and Zosyn Q8H IV, Placed 08/31/2024 with 24G IV to left AC, no s/s of infection or infiltration, no adverse reaction or side effects, no s/s of pain or distress, resident in room resting, call light within reach, HOB elevated, resident afebrile.
[2024-08-31] MEDS: ATORVASTATIN 40 MG TABLET 80 MG GT (20:10)
[2024-08-31] MEDS: PIPERACILLIN SODIUM/TAZOBACTAM 3.375 GM VIAL IV (22:09)
[2024-09-01] VITALS (11 sets, daily range): BP systolic 121–145; BP diastolic 67–75; PULSE 69–76; RESP 18–29; TEMP 36.2–36.9; O2SAT 98–100
[2024-09-01] MEDS: IPRATROPIUM/ALBUTEROL 3 ML AMPUL.NEB INH ×4 (01:08→19:35)
[2024-09-01] MEDS: PIPERACILLIN SODIUM/TAZOBACTAM 3.375 GM VIAL IV ×3 (06:37→21:38)
[2024-09-01] MEDS: AMIODARONE 200 MG TABLET GT (08:08)
[2024-09-01] MEDS: SENNOSIDES 8.6 MG TABLET GT ×2 (08:09→20:31)
[2024-09-01] MEDS: MULTIVITAMIN 1 TAB TABLET GT (08:09)
[2024-09-01] MEDS: CALCIUM GT (08:09)
[2024-09-01] MEDS: FUROSEMIDE 20 MG TABLET GT (08:09)
[2024-09-01] MEDS: VIT D3 GT (08:09)
[2024-09-01] MEDS: ASCORBIC ACID 500 MG TABLET GT ×2 (08:09→20:31)
[2024-09-01] MEDS: AMLODIPINE 10 MG TABLET GT (08:09)
[2024-09-01] MEDS: SODIUM CHLORIDE 0.9% IV (09:29)
[2024-09-01] MEDS: VANCOMYCIN IV (09:29)
--- NOTE | 2024-09-01 11:24 | PC.NURSE ---
inserted 24 g iv to right forearm 2 attempts,iv for abx infusion
[2024-09-01] MEDS: INSULIN REGULAR, HUMAN 100 UNIT/ML VIAL SC ×2 (11:48→17:36)
--- NOTE | 2024-09-01 15:35 | PC.NURSE ---
Resident remains on antibiotic IV therapy No noted adverse reactions noted from ABT. Tolerating it well.
[2024-09-01] MEDS: ATORVASTATIN 40 MG TABLET 80 MG GT (20:31)
[2024-09-02] VITALS (11 sets, daily range): BP systolic 130–152; BP diastolic 72–75; PULSE 66–88; RESP 18–27; TEMP 36.4–36.6; O2SAT 97–100
[2024-09-02] MEDS: IPRATROPIUM/ALBUTEROL 3 ML AMPUL.NEB INH ×3 (00:30→19:17)
[2024-09-02] MEDS: PIPERACILLIN SODIUM/TAZOBACTAM 3.375 GM VIAL IV ×3 (05:39→22:20)
[2024-09-02] MEDS: AMIODARONE 200 MG TABLET GT (08:17)
[2024-09-02] MEDS: AMLODIPINE 10 MG TABLET GT (08:18)
[2024-09-02] MEDS: ASCORBIC ACID 500 MG TABLET GT ×2 (08:20→20:28)
[2024-09-02] MEDS: CALCIUM GT (08:21)
[2024-09-02] MEDS: MULTIVITAMIN 1 TAB TABLET GT (08:21)
[2024-09-02] MEDS: VIT D3 GT (08:21)
[2024-09-02] MEDS: SENNOSIDES 8.6 MG TABLET GT ×2 (08:21→20:27)
[2024-09-02] MEDS: FUROSEMIDE 20 MG TABLET GT (08:21)
[2024-09-02] MEDS: VANCOMYCIN IV (08:38)
[2024-09-02] MEDS: SODIUM CHLORIDE 0.9% IV (08:38)
--- NOTE | 2024-09-02 11:00 | PC.LAC ---
Resident completed IV Vancomycin regimen. No S/E noted throughout the course of therapy (30 days) . Remains on Zosyn IV Q8H for a few more days. Will continue to monitor. VS remain stable. Notified
[2024-09-02] MEDS: INSULIN REGULAR, HUMAN 100 UNIT/ML VIAL SC (11:34)
[2024-09-02] MEDS: ATORVASTATIN 40 MG TABLET 80 MG GT (20:28)
[2024-09-03] VITALS (9 sets, daily range): BP systolic 123–147; BP diastolic 53–72; PULSE 73–86; RESP 18–29; TEMP 36.4–36.8; O2SAT 97–100; BMI 26.4
[2024-09-03] MEDS: IPRATROPIUM/ALBUTEROL 3 ML AMPUL.NEB INH ×4 (01:13→19:00)
[2024-09-03] MEDS: PIPERACILLIN SODIUM/TAZOBACTAM 3.375 GM VIAL IV ×3 (06:30→21:41)
[2024-09-03] MEDS: AMLODIPINE 10 MG TABLET GT (08:26)
[2024-09-03] MEDS: AMIODARONE 200 MG TABLET GT (08:26)
[2024-09-03] MEDS: CALCIUM GT (08:27)
[2024-09-03] MEDS: VIT D3 GT (08:27)
[2024-09-03] MEDS: ASCORBIC ACID 500 MG TABLET GT ×2 (08:27→20:54)
[2024-09-03] MEDS: MULTIVITAMIN 1 TAB TABLET GT (08:28)
[2024-09-03] MEDS: FUROSEMIDE 20 MG TABLET GT (08:28)
[2024-09-03] MEDS: SENNOSIDES 8.6 MG TABLET GT ×2 (08:28→20:54)
--- NOTE | 2024-09-03 16:02 | PC.SS ---
RP informed of advanced directive offered in house, resident is unable to participate due to cognitive impairment and absence of speech. Family made aware of conservatorship options through court system. Family does not feel this to be necessary for now.
--- NOTE | 2024-09-03 17:03 | PC.NURSE ---
Ms. Guaman continues on Zosyn Q8H IV for Klebsiella pneumoniae in urine, placed 22G IV to right forearm, no s/s of infection or infiltration, no adverse reaction or side effects, no s/s of pain or distress, resident in room resting, call light within reach, HOB elevated, resident afebrile.
[2024-09-03] MEDS: ACETAMINOPHEN 325 MG TABLET 650 MG GT (20:54)
[2024-09-03] MEDS: ATORVASTATIN 40 MG TABLET 80 MG GT (20:54)
[2024-09-04] VITALS (11 sets, daily range): BP systolic 107–152; BP diastolic 58–79; PULSE 64–88; RESP 18–35; TEMP 36.1–36.3; O2SAT 98–100
[2024-09-04] MEDS: IPRATROPIUM/ALBUTEROL 3 ML AMPUL.NEB INH ×4 (00:29→18:59)
[2024-09-04] MEDS: PIPERACILLIN SODIUM/TAZOBACTAM 3.375 GM VIAL IV ×3 (05:32→21:21)
[2024-09-04] MEDS: AMIODARONE 200 MG TABLET GT (08:26)
[2024-09-04] MEDS: ASCORBIC ACID 500 MG TABLET GT ×2 (08:28→20:43)
[2024-09-04] MEDS: CALCIUM GT (08:29)
[2024-09-04] MEDS: VIT D3 GT (08:29)
[2024-09-04] MEDS: SENNOSIDES 8.6 MG TABLET GT ×2 (08:30→20:43)
[2024-09-04] MEDS: FUROSEMIDE 20 MG TABLET GT (08:30)
[2024-09-04] MEDS: MULTIVITAMIN 1 TAB TABLET GT (08:30)
[2024-09-04] MEDS: ATORVASTATIN 40 MG TABLET 80 MG GT (20:43)
[2024-09-05] VITALS (10 sets, daily range): BP systolic 119–141; BP diastolic 49–78; PULSE 71–99; RESP 20–32; TEMP 36.3–36.8; O2SAT 97–100
[2024-09-05] MEDS: IPRATROPIUM/ALBUTEROL 3 ML AMPUL.NEB INH ×4 (01:05→19:00)
[2024-09-05] MEDS: AMIODARONE 200 MG TABLET GT (08:12)
[2024-09-05] MEDS: AMLODIPINE 10 MG TABLET GT (08:14)
[2024-09-05] MEDS: ASCORBIC ACID 500 MG TABLET GT ×2 (08:16→20:20)
[2024-09-05] MEDS: VIT D3 GT (08:17)
[2024-09-05] MEDS: CALCIUM GT (08:17)
[2024-09-05] MEDS: MULTIVITAMIN 1 TAB TABLET GT (08:18)
[2024-09-05] MEDS: FUROSEMIDE 20 MG TABLET GT (08:18)
[2024-09-05] MEDS: SENNOSIDES 8.6 MG TABLET GT ×2 (08:19→20:20)
[2024-09-05] MEDS: PIPERACILLIN SODIUM/TAZOBACTAM 3.375 GM VIAL IV ×2 (13:47→21:00)
[2024-09-05] MEDS: ATORVASTATIN 40 MG TABLET 80 MG GT (20:20)
[2024-09-06] VITALS (10 sets, daily range): BP systolic 99–149; BP diastolic 51–73; PULSE 75–88; RESP 23–34; TEMP 36.3–37.1; O2SAT 98–99
[2024-09-06] MEDS: IPRATROPIUM/ALBUTEROL 3 ML AMPUL.NEB INH ×4 (01:27→18:27)
[2024-09-06] MEDS: PIPERACILLIN SODIUM/TAZOBACTAM 3.375 GM VIAL IV ×2 (06:36→13:30)
[2024-09-06] MEDS: AMIODARONE 200 MG TABLET GT (08:06)
[2024-09-06] MEDS: VIT D3 GT (08:07)
[2024-09-06] MEDS: ASCORBIC ACID 500 MG TABLET GT ×2 (08:07→20:34)
[2024-09-06] MEDS: SENNOSIDES 8.6 MG TABLET GT ×2 (08:07→20:33)
[2024-09-06] MEDS: AMLODIPINE 10 MG TABLET GT (08:07)
[2024-09-06] MEDS: MULTIVITAMIN 1 TAB TABLET GT (08:07)
[2024-09-06] MEDS: CALCIUM GT (08:07)
[2024-09-06] MEDS: FUROSEMIDE 20 MG TABLET GT (08:07)
[2024-09-06] MEDS: INSULIN REGULAR, HUMAN 100 UNIT/ML VIAL SC ×2 (12:06→18:04)
--- NOTE | 2024-09-06 15:57 | PD.SAPROG ---
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 (7) Decubital ulcer: Status: Chronic (8) Deep venous thrombosis: Status: Chronic Qualifiers: DVT location: lower extremity Affected thrombotic vein of extremity: unspecified lower extremity proximal vein Chronicity: chronic Laterality: unspecified laterality Qualified Code(s): I82.5Y9 - Chronic embolism and thrombosis of unspecified deep veins of unspecified proximal lower extremity (9) Diastolic CHF: Status: Chronic Qualifiers: Heart failure chronicity: chronic Qualified Code(s): I50.32 - Chronic diastolic (congestive) heart failure OBJECTIVE Most recent vital signs: Last Vital Signs Temp 98.1 F 09/06/24 12:00 Pulse 82 09/06/24 12:59 Resp 29 H 09/06/24 12:59 BP 143/70 H 09/06/24 12:00 Pulse Ox 99 09/06/24 12:59 O2 Del Method Mechanical Ventilation 09/06/24 06:00 O2 Flow Rate 99 08/20/24 12:37 FiO2 30 09/06/24 12:59 Neurological:: PVS (spontaneous eye opening but no cognizant response to simple commands) Speech:: none Answers questions:: no Respiratory:: shallow breathing Cardiovascular: irregular Abdomen: soft Extremities:: deformities Decubitus:: unchanged Tracheostomy:: to blow by Complaints:: none ASSESSMENT & PLAN Assessment: Pt bed bound with all above etilologies, chronic, and fully dependent for all care . Prognosis very poor. Family considering Hospice care and possible transfer closer to home at [place] if possible. From 06-08-24 to 06-15-24 pt was in Acute Hospital for re-accumulation of Malignant Pleural effusion and requiring drainage for comfort. Returned from acute care on 08-10-24. Current medications reviewed and continued as ongoing. VSS. No distress. Objective achievable is comfort. No distress noted. Pt gained lot of weight with fluid overload during stay in acute care. Diuresis continued for comfort. i's & O's monitored. Plan: Maintain all support with objective of ensuring comfort.Pt code status changed to comfort measures only and no transfers to acute care
[2024-09-06] MEDS: ATORVASTATIN 40 MG TABLET 80 MG GT (20:34)
[2024-09-07] VITALS (9 sets, daily range): BP systolic 126–150; BP diastolic 61–82; PULSE 79–86; RESP 20–33; TEMP 36.4–36.6; O2SAT 97–100
[2024-09-07] MEDS: IPRATROPIUM/ALBUTEROL 3 ML AMPUL.NEB INH ×4 (00:16→18:29)
[2024-09-07] MEDS: ASCORBIC ACID 500 MG TABLET GT ×2 (08:06→20:10)
[2024-09-07] MEDS: AMLODIPINE 10 MG TABLET GT (08:06)
[2024-09-07] MEDS: AMIODARONE 200 MG TABLET GT (08:06)
[2024-09-07] MEDS: CALCIUM GT (08:06)
[2024-09-07] MEDS: VIT D3 GT (08:06)
[2024-09-07] MEDS: SENNOSIDES 8.6 MG TABLET GT ×2 (08:07→20:10)
[2024-09-07] MEDS: FUROSEMIDE 20 MG TABLET GT (08:07)
[2024-09-07] MEDS: MULTIVITAMIN 1 TAB TABLET GT (08:07)
--- NOTE | 2024-09-07 13:56 | PC.SS ---
Resident remains on ventilator with trach in place. She is awake unable to make needs known, her decision maker is her son Rashel. Resident will remain in current care as she has no changes in care or condition, she will continue to have all subacute care needs met by staff. This SSD will continue to make daily contact with resident and will monitor for changes in mood and behavior.
[2024-09-07] MEDS: PIPERACILLIN SODIUM/TAZOBACTAM 3.375 GM VIAL IV ×2 (14:03→21:00)
[2024-09-07] MEDS: ATORVASTATIN 40 MG TABLET 80 MG GT (20:10)
[2024-09-08] VITALS (9 sets, daily range): BP systolic 125–148; BP diastolic 60–73; PULSE 74–83; RESP 21–30; TEMP 36.5–36.7; O2SAT 97–100
[2024-09-08] MEDS: IPRATROPIUM/ALBUTEROL 3 ML AMPUL.NEB INH ×4 (00:49→19:06)
[2024-09-08] MEDS: PIPERACILLIN SODIUM/TAZOBACTAM 3.375 GM VIAL IV ×2 (05:00→14:24)
[2024-09-08] MEDS: ASCORBIC ACID 500 MG TABLET GT ×2 (10:00→21:20)
[2024-09-08] MEDS: AMLODIPINE 10 MG TABLET GT (10:00)
[2024-09-08] MEDS: MULTIVITAMIN 1 TAB TABLET GT (10:00)
[2024-09-08] MEDS: AMIODARONE 200 MG TABLET GT (10:00)
[2024-09-08] MEDS: FUROSEMIDE 20 MG TABLET GT (10:00)
[2024-09-08] MEDS: CALCIUM GT (10:00)
[2024-09-08] MEDS: VIT D3 GT (10:00)
[2024-09-08] MEDS: SENNOSIDES 8.6 MG TABLET GT ×2 (10:00→21:21)
[2024-09-08] MEDS: ATORVASTATIN 40 MG TABLET 80 MG GT (21:21)
[2024-09-09] VITALS (9 sets, daily range): BP systolic 126–137; BP diastolic 56–71; PULSE 74–83; RESP 18–80; TEMP 36.2–36.6; O2SAT 97–100
[2024-09-09] MEDS: IPRATROPIUM/ALBUTEROL 3 ML AMPUL.NEB INH ×4 (01:12→19:43)
[2024-09-09] MEDS: AMLODIPINE 10 MG TABLET GT (09:23)
[2024-09-09] MEDS: AMIODARONE 200 MG TABLET GT (09:23)
[2024-09-09] MEDS: SENNOSIDES 8.6 MG TABLET GT ×2 (09:23→20:13)
[2024-09-09] MEDS: CALCIUM GT (09:23)
[2024-09-09] MEDS: VIT D3 GT (09:23)
[2024-09-09] MEDS: ASCORBIC ACID 500 MG TABLET GT ×2 (09:23→20:13)
[2024-09-09] MEDS: FUROSEMIDE 20 MG TABLET GT (09:23)
[2024-09-09] MEDS: MULTIVITAMIN 1 TAB TABLET GT (09:23)
[2024-09-09] MEDS: ATORVASTATIN 40 MG TABLET 80 MG GT (20:13)
[2024-09-09] MEDS: INSULIN REGULAR, HUMAN 100 UNIT/ML VIAL SC (23:43)
[2024-09-10] VITALS (10 sets, daily range): BP systolic 116–132; BP diastolic 56–68; PULSE 69–84; RESP 18–35; TEMP 36.7–36.8; O2SAT 98–100
[2024-09-10] MEDS: IPRATROPIUM/ALBUTEROL 3 ML AMPUL.NEB INH ×3 (05:25→19:11)
[2024-09-10] MEDS: VIT D3 GT (08:05)
[2024-09-10] MEDS: FUROSEMIDE 20 MG TABLET GT (08:05)
[2024-09-10] MEDS: AMLODIPINE 10 MG TABLET GT (08:05)
[2024-09-10] MEDS: CALCIUM GT (08:05)
[2024-09-10] MEDS: AMIODARONE 200 MG TABLET GT (08:05)
[2024-09-10] MEDS: ASCORBIC ACID 500 MG TABLET GT ×2 (08:05→20:21)
[2024-09-10] MEDS: MULTIVITAMIN 1 TAB TABLET GT (08:06)
[2024-09-10] MEDS: SENNOSIDES 8.6 MG TABLET GT ×2 (08:06→20:20)
[2024-09-10] MEDS: ATORVASTATIN 40 MG TABLET 80 MG GT (20:21)
[2024-09-11] VITALS (7 sets, daily range): BP systolic 117–136; BP diastolic 63–70; PULSE 70–84; RESP 18–25; TEMP 36.6–36.7; O2SAT 99–100
[2024-09-11] MEDS: IPRATROPIUM/ALBUTEROL 3 ML AMPUL.NEB INH ×4 (00:41→19:22)
[2024-09-11 06:34] LABS: Albumin, Serum 2.8 gm/dL (3.4-4.8); Anion Gap 10 (7-16); BUN/Creatinine Ratio 53 Ratio (12-20); Blood Urea Nitrogen 58 mg/dL (9-23); Calcium 8.2 mg/dL (8.3-10.6); Calcium (Corrected) 9.2 mg/dL (8.5-10.1); Carbon Dioxide 29.1 mMol/L (20.0-31.0); Chloride 114 mMol/L (98-107); Creatinine (Component) 1.1 mg/dL (0.6-1.3); Estimated Creatinine Clearance 32.5 mL/min (>60); Glucose 165 mg/dL (74-106); Osmolality,Calculated 323 (275-295); Phosphorous 4.0 mg/dL (2.4-5.1); Potassium 5.0 mMol/L (3.4-5.1); Sodium 153 mMol/L (136-145); eGFR 50 See Note
[2024-09-11] MEDS: AMLODIPINE 10 MG TABLET GT (08:34)
[2024-09-11] MEDS: AMIODARONE 200 MG TABLET GT (08:34)
[2024-09-11] MEDS: CALCIUM GT (08:35)
[2024-09-11] MEDS: VIT D3 GT (08:35)
[2024-09-11] MEDS: ASCORBIC ACID 500 MG TABLET GT ×2 (08:35→20:43)
[2024-09-11] MEDS: SENNOSIDES 8.6 MG TABLET GT ×2 (08:36→20:42)
[2024-09-11] MEDS: FUROSEMIDE 20 MG TABLET GT (08:36)
[2024-09-11] MEDS: MULTIVITAMIN 1 TAB TABLET GT (08:36)
--- NOTE | 2024-09-11 16:23 | PC.NURSE ---
Received renal panel result sodium was 153 MD. aware and order to repeat renal panel in one week, to follow-up sodium, order noted and carried out.
[2024-09-11] MEDS: ATORVASTATIN 40 MG TABLET 80 MG GT (20:43)
[2024-09-12] VITALS (11 sets, daily range): BP systolic 117–150; BP diastolic 62–73; PULSE 71–81; RESP 20–26; TEMP 36.2–37.1; O2SAT 97–100
[2024-09-12] MEDS: IPRATROPIUM/ALBUTEROL 3 ML AMPUL.NEB INH ×4 (00:33→16:50)
[2024-09-12] MEDS: AMIODARONE 200 MG TABLET GT (08:32)
[2024-09-12] MEDS: AMLODIPINE 10 MG TABLET GT (08:33)
[2024-09-12] MEDS: CALCIUM GT (08:34)
[2024-09-12] MEDS: VIT D3 GT (08:34)
[2024-09-12] MEDS: ASCORBIC ACID 500 MG TABLET GT ×2 (08:34→20:26)
[2024-09-12] MEDS: SENNOSIDES 8.6 MG TABLET GT ×2 (08:34→20:26)
[2024-09-12] MEDS: MULTIVITAMIN 1 TAB TABLET GT (08:34)
[2024-09-12] MEDS: FUROSEMIDE 20 MG TABLET GT (08:34)
[2024-09-12] MEDS: INSULIN REGULAR, HUMAN 100 UNIT/ML VIAL SC (11:41)
[2024-09-12] MEDS: ATORVASTATIN 40 MG TABLET 80 MG GT (20:26)
[2024-09-13] VITALS (9 sets, daily range): BP systolic 101–122; BP diastolic 52–73; PULSE 71–90; RESP 22–28; TEMP 36.4–36.8; O2SAT 95–100
[2024-09-13] MEDS: IPRATROPIUM/ALBUTEROL 3 ML AMPUL.NEB INH ×4 (00:43→19:16)
[2024-09-13] MEDS: AMIODARONE 200 MG TABLET GT (08:33)
[2024-09-13] MEDS: AMLODIPINE 10 MG TABLET GT (08:33)
[2024-09-13] MEDS: CALCIUM GT (08:34)
[2024-09-13] MEDS: VIT D3 GT (08:34)
[2024-09-13] MEDS: FUROSEMIDE 20 MG TABLET GT (08:34)
[2024-09-13] MEDS: MULTIVITAMIN 1 TAB TABLET GT (08:34)
[2024-09-13] MEDS: ASCORBIC ACID 500 MG TABLET GT ×2 (08:34→20:28)
[2024-09-13] MEDS: SENNOSIDES 8.6 MG TABLET GT ×2 (08:35→20:28)
[2024-09-13] MEDS: INSULIN REGULAR, HUMAN 100 UNIT/ML VIAL SC (17:05)
[2024-09-13] MEDS: ATORVASTATIN 40 MG TABLET 80 MG GT (20:28)
[2024-09-14] VITALS (9 sets, daily range): BP systolic 121–138; BP diastolic 57–70; PULSE 69–84; RESP 22–32; TEMP 36.4–36.6; O2SAT 96–100
[2024-09-14] MEDS: IPRATROPIUM/ALBUTEROL 3 ML AMPUL.NEB INH ×4 (00:26→18:42)
[2024-09-14] MEDS: INSULIN REGULAR, HUMAN 100 UNIT/ML VIAL SC ×2 (05:19→17:23)
[2024-09-14] MEDS: AMIODARONE 200 MG TABLET GT (08:42)
[2024-09-14] MEDS: VIT D3 GT (08:43)
[2024-09-14] MEDS: ASCORBIC ACID 500 MG TABLET GT ×2 (08:43→20:27)
[2024-09-14] MEDS: CALCIUM GT (08:43)
[2024-09-14] MEDS: AMLODIPINE 10 MG TABLET GT (08:43)
[2024-09-14] MEDS: FUROSEMIDE 20 MG TABLET GT (08:45)
[2024-09-14] MEDS: CARBAMIDE PEROXIDE OTIC SOL 15 ML BTL 5 DROP BOTH EARS ×2 (08:45→20:31)
[2024-09-14] MEDS: SENNOSIDES 8.6 MG TABLET GT ×2 (08:46→20:31)
[2024-09-14] MEDS: MULTIVITAMIN 1 TAB TABLET GT (08:46)
[2024-09-14] MEDS: ACETAMINOPHEN 325 MG TABLET 650 MG GT (11:00)
[2024-09-14] MEDS: ATORVASTATIN 40 MG TABLET 80 MG GT (20:27)
--- NOTE | 2024-09-14 21:31 | PD.SAPROG ---
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 (7) Decubital ulcer: Status: Chronic (8) Deep venous thrombosis: Status: Chronic Qualifiers: DVT location: lower extremity Affected thrombotic vein of extremity: unspecified lower extremity proximal vein Chronicity: chronic Laterality: unspecified laterality Qualified Code(s): I82.5Y9 - Chronic embolism and thrombosis of unspecified deep veins of unspecified proximal lower extremity (9) Diastolic CHF: Status: Chronic Qualifiers: Heart failure chronicity: chronic Qualified Code(s): I50.32 - Chronic diastolic (congestive) heart failure OBJECTIVE Most recent vital signs: Last Vital Signs Temp 97.9 F 09/14/24 17:39 Pulse 81 09/14/24 18:42 Resp 22 H 09/14/24 18:42 BP 127/57 L 09/14/24 17:39 Pulse Ox 100 09/14/24 18:42 O2 Del Method Mechanical Ventilation 09/14/24 17:39 O2 Flow Rate 99 08/20/24 12:37 FiO2 30 09/14/24 18:42 Neurological:: PVS (spontaneous eye opening but no cognizant response to simple commands) Speech:: none Answers questions:: no Respiratory:: shallow breathing Cardiovascular: irregular Abdomen: soft Extremities:: deformities Decubitus:: unchanged Tracheostomy:: to blow by Complaints:: none ASSESSMENT & PLAN Assessment: Pt bed bound with all above etilologies, chronic, and fully dependent for all care . Prognosis very poor. Family considering Hospice care and possible transfer closer to home at [place] if possible. From 06-08-24 to 06-15-24 pt was in Acute Hospital for re-accumulation of Malignant Pleural effusion and requiring drainage for comfort. Returned from acute care on 08-10-24. Current medications reviewed and continued as ongoing. VSS. No distress. Objective achievable is comfort. No distress noted. Pt gained lot of weight with fluid overload during stay in acute care. Diuresis continued for comfort. i's & O's monitored. Plan: Maintain all support with objective of ensuring comfort.Pt code status changed to comfort measures only and no transfers to acute care
[2024-09-15] VITALS (9 sets, daily range): BP systolic 100–133; BP diastolic 53–68; PULSE 73–81; RESP 18–29; TEMP 36.2–36.5; O2SAT 97–100
[2024-09-15] MEDS: IPRATROPIUM/ALBUTEROL 3 ML AMPUL.NEB INH ×5 (00:24→18:41)
[2024-09-15] MEDS: AMIODARONE 200 MG TABLET GT (08:07)
[2024-09-15] MEDS: AMLODIPINE 10 MG TABLET GT (08:07)
[2024-09-15] MEDS: ASCORBIC ACID 500 MG TABLET GT ×2 (08:07→20:34)
[2024-09-15] MEDS: VIT D3 GT (08:09)
[2024-09-15] MEDS: SENNOSIDES 8.6 MG TABLET GT ×2 (08:09→20:34)
[2024-09-15] MEDS: FUROSEMIDE 20 MG TABLET GT (08:09)
[2024-09-15] MEDS: CARBAMIDE PEROXIDE OTIC SOL 15 ML BTL 5 DROP BOTH EARS ×2 (08:09→21:40)
[2024-09-15] MEDS: MULTIVITAMIN 1 TAB TABLET GT (08:09)
[2024-09-15] MEDS: CALCIUM GT (08:09)
[2024-09-15] MEDS: INSULIN REGULAR, HUMAN 100 UNIT/ML VIAL SC ×2 (17:33→23:40)
[2024-09-15] MEDS: ATORVASTATIN 40 MG TABLET 80 MG GT (20:34)
[2024-09-16] VITALS (9 sets, daily range): BP systolic 111–141; BP diastolic 50–86; PULSE 69–84; RESP 19–31; TEMP 36.5–36.7; O2SAT 98–100
[2024-09-16] MEDS: IPRATROPIUM/ALBUTEROL 3 ML AMPUL.NEB INH ×3 (06:24→19:07)
[2024-09-16] MEDS: AMIODARONE 200 MG TABLET GT (08:24)
[2024-09-16] MEDS: AMLODIPINE 10 MG TABLET GT (08:24)
[2024-09-16] MEDS: VIT D3 GT (08:25)
[2024-09-16] MEDS: ASCORBIC ACID 500 MG TABLET GT ×2 (08:25→20:14)
[2024-09-16] MEDS: CALCIUM GT (08:25)
[2024-09-16] MEDS: FUROSEMIDE 20 MG TABLET GT (08:26)
[2024-09-16] MEDS: SENNOSIDES 8.6 MG TABLET GT ×2 (08:27→20:14)
[2024-09-16] MEDS: MULTIVITAMIN 1 TAB TABLET GT (08:27)
[2024-09-16] MEDS: ACETAMINOPHEN 325 MG TABLET 650 MG GT (08:27)
[2024-09-16] MEDS: CARBAMIDE PEROXIDE OTIC SOL 15 ML BTL 5 DROP BOTH EARS ×2 (10:30→21:43)
[2024-09-16] MEDS: INSULIN REGULAR, HUMAN 100 UNIT/ML VIAL SC (12:37)
[2024-09-16] MEDS: ATORVASTATIN 40 MG TABLET 80 MG GT (20:14)
[2024-09-16] MEDS: MAGNESIUM HYDROXIDE 30 ML ORAL SUSP ML GT (20:15)
[2024-09-17] VITALS (11 sets, daily range): BP systolic 114–127; BP diastolic 45–86; PULSE 68–84; RESP 20–28; TEMP 36.2–36.6; O2SAT 99–100
[2024-09-17] MEDS: IPRATROPIUM/ALBUTEROL 3 ML AMPUL.NEB INH ×4 (00:50→19:01)
[2024-09-17] MEDS: INSULIN REGULAR, HUMAN 100 UNIT/ML VIAL SC ×2 (05:42→11:35)
[2024-09-17] MEDS: AMIODARONE 200 MG TABLET GT (08:30)
[2024-09-17] MEDS: AMLODIPINE 10 MG TABLET GT (08:31)
[2024-09-17] MEDS: ASCORBIC ACID 500 MG TABLET GT ×2 (08:32→20:18)
[2024-09-17] MEDS: CALCIUM GT (08:33)
[2024-09-17] MEDS: VIT D3 GT (08:33)
[2024-09-17] MEDS: CARBAMIDE PEROXIDE OTIC SOL 15 ML BTL 5 DROP BOTH EARS ×2 (08:33→20:18)
[2024-09-17] MEDS: MULTIVITAMIN 1 TAB TABLET GT (08:37)
[2024-09-17] MEDS: FUROSEMIDE 20 MG TABLET GT (08:37)
[2024-09-17] MEDS: SENNOSIDES 8.6 MG TABLET GT ×2 (08:37→20:18)
[2024-09-17] MEDS: ATORVASTATIN 40 MG TABLET 80 MG GT (20:18)
[2024-09-18] VITALS (9 sets, daily range): BP systolic 100–133; BP diastolic 57–77; PULSE 67–84; RESP 18–30; TEMP 36.2–36.6; O2SAT 98–100
[2024-09-18] MEDS: IPRATROPIUM/ALBUTEROL 3 ML AMPUL.NEB INH ×4 (00:56→18:50)
[2024-09-18] MEDS: INSULIN REGULAR, HUMAN 100 UNIT/ML VIAL SC ×3 (05:15→17:17)
[2024-09-18] MEDS: AMLODIPINE 10 MG TABLET GT (08:03)
[2024-09-18] MEDS: AMIODARONE 200 MG TABLET GT (08:03)
[2024-09-18] MEDS: MULTIVITAMIN 1 TAB TABLET GT (08:04)
[2024-09-18] MEDS: CALCIUM GT (08:04)
[2024-09-18] MEDS: ASCORBIC ACID 500 MG TABLET GT ×2 (08:04→20:15)
[2024-09-18] MEDS: VIT D3 GT (08:04)
[2024-09-18] MEDS: SENNOSIDES 8.6 MG TABLET GT ×2 (08:04→20:15)
[2024-09-18] MEDS: FUROSEMIDE 20 MG TABLET GT (08:04)
--- NOTE | 2024-09-18 15:19 | PC.NURSE ---
. made aware and check on the resident peace catheter with blood on it, . said to monitor and flush the peace every shift.
[2024-09-18] MEDS: ATORVASTATIN 40 MG TABLET 80 MG GT (20:15)
--- NOTE | 2024-09-18 20:57 | PD.SAPROG ---
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 (7) Decubital ulcer: Status: Chronic (8) Deep venous thrombosis: Status: Chronic Qualifiers: DVT location: lower extremity Affected thrombotic vein of extremity: unspecified lower extremity proximal vein Chronicity: chronic Laterality: unspecified laterality Qualified Code(s): I82.5Y9 - Chronic embolism and thrombosis of unspecified deep veins of unspecified proximal lower extremity (9) Diastolic CHF: Status: Chronic Qualifiers: Heart failure chronicity: chronic Qualified Code(s): I50.32 - Chronic diastolic (congestive) heart failure OBJECTIVE Most recent vital signs: Last Vital Signs Temp 97.2 F 09/18/24 17:38 Pulse 78 09/18/24 18:50 Resp 20 09/18/24 18:50 BP 113/57 L 09/18/24 17:38 Pulse Ox 100 09/18/24 18:50 O2 Del Method Mechanical Ventilation 09/18/24 17:38 O2 Flow Rate 99 08/20/24 12:37 FiO2 30 09/18/24 18:50 Neurological:: PVS (spontaneous eye opening but no cognizant response to simple commands) Speech:: none Answers questions:: no Respiratory:: shallow breathing Cardiovascular: irregular Abdomen: soft Extremities:: deformities Decubitus:: unchanged Tracheostomy:: to blow by Complaints:: none ASSESSMENT & PLAN Assessment: Pt bed bound with all above etilologies, chronic, and fully dependent for all care . Prognosis very poor. Family considering Hospice care and possible transfer closer to home at [place] if possible. From 06-08-24 to 06-15-24 pt was in Acute Hospital for re-accumulation of Malignant Pleural effusion and requiring drainage for comfort. Returned from acute care on 08-10-24. Current medications reviewed and continued as ongoing. VSS. No distress. Objective achievable is comfort. No distress noted. Pt gained lot of weight with fluid overload during stay in acute care. Diuresis continued for comfort. i's & O's monitored. Mild blood noted in Urine but no discomfort noted Plan: Maintain all support with objective of ensuring comfort.Pt code status changed to comfort measures only and no transfers to acute care
[2024-09-19] VITALS (9 sets, daily range): BP systolic 102–124; BP diastolic 54–71; PULSE 67–81; RESP 17–37; TEMP 36.2–36.7; O2SAT 98–100
[2024-09-19] MEDS: IPRATROPIUM/ALBUTEROL 3 ML AMPUL.NEB INH ×4 (00:20→19:08)
[2024-09-19] MEDS: AMIODARONE 200 MG TABLET GT (08:10)
[2024-09-19] MEDS: AMLODIPINE 10 MG TABLET GT (08:10)
[2024-09-19] MEDS: SENNOSIDES 8.6 MG TABLET GT ×2 (08:11→20:24)
[2024-09-19] MEDS: VIT D3 GT (08:11)
[2024-09-19] MEDS: ASCORBIC ACID 500 MG TABLET GT ×2 (08:11→20:25)
[2024-09-19] MEDS: CALCIUM GT (08:11)
[2024-09-19] MEDS: MULTIVITAMIN 1 TAB TABLET GT (08:11)
[2024-09-19] MEDS: FUROSEMIDE 20 MG TABLET GT (08:11)
[2024-09-19] MEDS: INSULIN REGULAR, HUMAN 100 UNIT/ML VIAL SC (17:24)
[2024-09-19] MEDS: MAGNESIUM HYDROXIDE 30 ML ORAL SUSP ML GT (20:25)
[2024-09-19] MEDS: ATORVASTATIN 40 MG TABLET 80 MG GT (20:25)
[2024-09-20] VITALS (10 sets, daily range): BP systolic 105–128; BP diastolic 52–68; PULSE 70–79; RESP 20–30; TEMP 36.2–36.9; O2SAT 98–100
[2024-09-20] MEDS: IPRATROPIUM/ALBUTEROL 3 ML AMPUL.NEB INH ×4 (00:28→16:37)
[2024-09-20] MEDS: AMIODARONE 200 MG TABLET GT (08:33)
[2024-09-20] MEDS: ASCORBIC ACID 500 MG TABLET GT ×2 (08:36→21:39)
[2024-09-20] MEDS: CALCIUM GT (08:37)
[2024-09-20] MEDS: VIT D3 GT (08:37)
[2024-09-20] MEDS: FUROSEMIDE 20 MG TABLET GT (08:37)
[2024-09-20] MEDS: SENNOSIDES 8.6 MG TABLET GT ×2 (08:38→21:41)
[2024-09-20] MEDS: MULTIVITAMIN 1 TAB TABLET GT (08:38)
[2024-09-20] MEDS: ATORVASTATIN 40 MG TABLET 80 MG GT (21:40)
[2024-09-20] MEDS: ACETAMINOPHEN 325 MG TABLET 650 MG GT (21:41)
[2024-09-21] VITALS (9 sets, daily range): BP systolic 112–127; BP diastolic 49–69; PULSE 71–81; RESP 18–32; TEMP 36.6–37.1; O2SAT 98–100
[2024-09-21] MEDS: IPRATROPIUM/ALBUTEROL 3 ML AMPUL.NEB INH ×4 (00:35→18:38)
[2024-09-21] MEDS: AMLODIPINE 10 MG TABLET GT (09:15)
[2024-09-21] MEDS: AMIODARONE 200 MG TABLET GT (09:15)
[2024-09-21] MEDS: FUROSEMIDE 20 MG TABLET GT (09:16)
[2024-09-21] MEDS: CALCIUM GT (09:16)
[2024-09-21] MEDS: VIT D3 GT (09:16)
[2024-09-21] MEDS: ASCORBIC ACID 500 MG TABLET GT ×2 (09:16→21:03)
[2024-09-21] MEDS: MULTIVITAMIN 1 TAB TABLET GT (09:17)
[2024-09-21] MEDS: SENNOSIDES 8.6 MG TABLET GT ×2 (09:17→21:03)
[2024-09-21] MEDS: ATORVASTATIN 40 MG TABLET 80 MG GT (21:03)
[2024-09-22] VITALS (10 sets, daily range): BP systolic 101–124; BP diastolic 61–66; PULSE 69–82; RESP 18–26; TEMP 36.3–36.6; O2SAT 99–100
[2024-09-22] MEDS: IPRATROPIUM/ALBUTEROL 3 ML AMPUL.NEB INH ×4 (00:21→19:05)
[2024-09-22] MEDS: AMIODARONE 200 MG TABLET GT (08:52)
[2024-09-22] MEDS: AMLODIPINE 10 MG TABLET GT (08:53)
[2024-09-22] MEDS: FUROSEMIDE 20 MG TABLET GT (08:53)
[2024-09-22] MEDS: CALCIUM GT (08:54)
[2024-09-22] MEDS: VIT D3 GT (08:54)
[2024-09-22] MEDS: ASCORBIC ACID 500 MG TABLET GT ×2 (08:55→20:12)
[2024-09-22] MEDS: SENNOSIDES 8.6 MG TABLET GT ×2 (08:55→20:12)
[2024-09-22] MEDS: MULTIVITAMIN 1 TAB TABLET GT (08:55)
[2024-09-22] MEDS: INSULIN REGULAR, HUMAN 100 UNIT/ML VIAL SC (12:09)
--- NOTE | 2024-09-22 14:16 | PD.SAPROG ---
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 (7) Decubital ulcer: Status: Chronic (8) Deep venous thrombosis: Status: Chronic Qualifiers: DVT location: lower extremity Affected thrombotic vein of extremity: unspecified lower extremity proximal vein Chronicity: chronic Laterality: unspecified laterality Qualified Code(s): I82.5Y9 - Chronic embolism and thrombosis of unspecified deep veins of unspecified proximal lower extremity (9) Diastolic CHF: Status: Chronic Qualifiers: Heart failure chronicity: chronic Qualified Code(s): I50.32 - Chronic diastolic (congestive) heart failure OBJECTIVE Most recent vital signs: Last Vital Signs Temp 97.8 F 09/22/24 12:00 Pulse 75 09/22/24 12:22 Resp 21 H 09/22/24 12:22 BP 112/62 09/22/24 12:00 Pulse Ox 100 09/22/24 12:22 O2 Del Method Mechanical Ventilation 09/21/24 17:31 O2 Flow Rate 99 08/20/24 12:37 FiO2 30 09/22/24 12:22 Neurological:: PVS (spontaneous eye opening but no cognizant response to simple commands) Speech:: none Answers questions:: no Respiratory:: shallow breathing Cardiovascular: irregular Abdomen: soft Extremities:: deformities Decubitus:: unchanged Tracheostomy:: to blow by Complaints:: none ASSESSMENT & PLAN Assessment: Pt bed bound with all above etilologies, chronic, and fully dependent for all care . Prognosis very poor. Family considering Hospice care and possible transfer closer to home at [place] if possible. From 06-08-24 to 06-15-24 pt was in Acute Hospital for re-accumulation of Malignant Pleural effusion and requiring drainage for comfort. Returned from acute care on 08-10-24. Current medications reviewed and continued as ongoing. VSS. No distress. Objective achievable is comfort. No distress noted. Pt gained lot of weight with fluid overload during stay in acute care. Diuresis continued for comfort. i's & O's monitored. Mild blood noted in Urine but no discomfort noted Plan: Maintain all support with objective of ensuring comfort.Pt code status changed to comfort measures only and no transfers to acute care
[2024-09-22] MEDS: ATORVASTATIN 40 MG TABLET 80 MG GT (20:12)
[2024-09-23] VITALS (10 sets, daily range): BP systolic 116–138; BP diastolic 54–66; PULSE 67–80; RESP 18–24; TEMP 36.1–36.4; O2SAT 98–100
[2024-09-23] MEDS: IPRATROPIUM/ALBUTEROL 3 ML AMPUL.NEB INH ×4 (01:14→19:16)
[2024-09-23] MEDS: AMIODARONE 200 MG TABLET GT (08:30)
[2024-09-23] MEDS: ASCORBIC ACID 500 MG TABLET GT ×2 (08:31→21:19)
[2024-09-23] MEDS: VIT D3 GT (08:31)
[2024-09-23] MEDS: FUROSEMIDE 20 MG TABLET GT (08:31)
[2024-09-23] MEDS: AMLODIPINE 10 MG TABLET GT (08:31)
[2024-09-23] MEDS: SENNOSIDES 8.6 MG TABLET GT ×2 (08:31→21:20)
[2024-09-23] MEDS: CALCIUM GT (08:31)
[2024-09-23] MEDS: MULTIVITAMIN 1 TAB TABLET GT (08:31)
[2024-09-23] MEDS: INSULIN REGULAR, HUMAN 100 UNIT/ML VIAL SC (12:03)
[2024-09-23] MEDS: ATORVASTATIN 40 MG TABLET 80 MG GT (21:19)
[2024-09-24] VITALS (10 sets, daily range): BP systolic 104–122; BP diastolic 50–75; PULSE 67–72; RESP 18–25; TEMP 35.9–36.3; O2SAT 97–100
[2024-09-24] MEDS: IPRATROPIUM/ALBUTEROL 3 ML AMPUL.NEB INH ×4 (00:29→19:38)
[2024-09-24] MEDS: AMIODARONE 200 MG TABLET GT (08:52)
[2024-09-24] MEDS: CALCIUM GT (08:53)
[2024-09-24] MEDS: AMLODIPINE 10 MG TABLET GT (08:53)
[2024-09-24] MEDS: VIT D3 GT (08:53)
[2024-09-24] MEDS: ASCORBIC ACID 500 MG TABLET GT ×2 (08:53→20:17)
[2024-09-24] MEDS: FUROSEMIDE 20 MG TABLET GT (08:54)
[2024-09-24] MEDS: MULTIVITAMIN 1 TAB TABLET GT (08:54)
[2024-09-24] MEDS: SENNOSIDES 8.6 MG TABLET GT ×2 (08:54→20:17)
--- NOTE | 2024-09-24 12:50 | PD.SAPROG ---
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 (7) Decubital ulcer: Status: Chronic (8) Deep venous thrombosis: Status: Chronic Qualifiers: DVT location: lower extremity Affected thrombotic vein of extremity: unspecified lower extremity proximal vein Chronicity: chronic Laterality: unspecified laterality Qualified Code(s): I82.5Y9 - Chronic embolism and thrombosis of unspecified deep veins of unspecified proximal lower extremity (9) Diastolic CHF: Status: Chronic Qualifiers: Heart failure chronicity: chronic Qualified Code(s): I50.32 - Chronic diastolic (congestive) heart failure OBJECTIVE Most recent vital signs: Last Vital Signs Temp 97.7 F 09/27/24 18:00 Pulse 78 09/27/24 18:51 Resp 21 H 09/27/24 18:51 BP 95/70 09/27/24 18:00 Pulse Ox 100 09/27/24 18:51 O2 Del Method Mechanical Ventilation 09/27/24 05:55 O2 Flow Rate 97 09/27/24 05:55 FiO2 30 09/27/24 18:51 Neurological:: PVS (spontaneous eye opening but no cognizant response to simple commands) Speech:: none Answers questions:: no Respiratory:: shallow breathing Cardiovascular: irregular Abdomen: soft Extremities:: deformities Decubitus:: unchanged Tracheostomy:: to blow by Complaints:: none ASSESSMENT & PLAN Assessment: Pt bed bound with all above etilologies, chronic, and fully dependent for all care . Prognosis very poor. Family considering Hospice care and possible transfer closer to home at [place] if possible. From 06-08-24 to 06-15-24 pt was in Acute Hospital for re-accumulation of Malignant Pleural effusion and requiring drainage for comfort. Returned from acute care on 08-10-24. Current medications reviewed and continued as ongoing. VSS. No distress. Objective achievable is comfort. No distress noted. Pt gained lot of weight with fluid overload during stay in acute care. Diuresis continued for comfort. i's & O's monitored. Mild blood noted in Urine but no discomfort noted Plan: Maintain all support with objective of ensuring comfort.Pt code status changed to comfort measures only and no transfers to acute care
[2024-09-24] MEDS: INSULIN REGULAR, HUMAN 100 UNIT/ML VIAL SC (17:30)
[2024-09-24] MEDS: ATORVASTATIN 40 MG TABLET 80 MG GT (20:17)
[2024-09-25] VITALS (10 sets, daily range): BP systolic 101–135; BP diastolic 50–70; PULSE 68–78; RESP 18–26; TEMP 36.1–36.3; O2SAT 97–100
[2024-09-25] MEDS: IPRATROPIUM/ALBUTEROL 3 ML AMPUL.NEB INH ×4 (00:19→18:27)
[2024-09-25] MEDS: MAGNESIUM HYDROXIDE 30 ML ORAL SUSP ML GT (02:00)
[2024-09-25 07:27] LABS: Basophils # (Auto) 0.0 Thou/mm3 (0.0-0.2); Basophils % (Auto) 0 % (0-2.5); Eosinophils # (Auto) 0.7 Thou/mm3 (0.0-0.5); Eosinophils % (Auto) 6 % (0-10); Hematocrit 28.7 % (36.0-46.0); Hemoglobin 9.0 g/dL (12.0-16.0); Immature Granulocytes Auto 0.05 Thou/mm3 (0.00-0.00); Lymphocytes # (Auto) 1.1 Thou/mm3 (1.0-4.8); Lymphocytes % (Auto) 10 % (10-50); Mean Corpuscular HGB Conc 31.4 g/dl (31.0-37.0); Mean Corpuscular Hemoglobin 29.9 pg (25.0-35.0); Mean Corpuscular Volume 95 fL (80-100); Monocytes # (Auto) 0.9 Thou/mm3 (0.0-0.8); Monocytes % (Auto) 8 % (0-12); Neutrophils # (Auto) 8.7 Thou/mm3 (1.8-7.7); Neutrophils % (Auto) 76 % (37-80); Nucleated Red Blood Cell # 0.00 Thou/mm3 (0.00-0.00); Nucleated Red Blood Cell % 0 /100 WBC (0); Platelet Count 229 Thou/mm3 (140-440); RDW Standard Deviation 61.1 fL (36.4-46.3); Red Blood Count 3.01 Miln/mm3 (4.00-5.20); White Blood Count 11.4 Thou/mm3 (3.6-11.0)
[2024-09-25 07:56] LABS: Alanine Aminotransferase 112 U/L (10-49); Albumin, Serum 3.0 gm/dL (3.4-4.8); Albumin/Globulin Ratio 0.8 (1.2-2.2); Alkaline Phosphatase 240 U/L (46-116); Anion Gap 6 (7-16); Aspartate Amino Transferase 114 U/L (0-34); BUN/Creatinine Ratio 43 Ratio (12-20); Bilirubin,Total 0.4 mg/dL (0.3-1.2); Blood Urea Nitrogen 51 mg/dL (9-23); Calcium 8.3 mg/dL (8.3-10.6); Calcium (Corrected) 9.1 mg/dL (8.5-10.1); Carbon Dioxide 30.3 mMol/L (20.0-31.0); Chloride 110 mMol/L (98-107); Creatinine (Component) 1.2 mg/dL (0.6-1.3); Estimated Creatinine Clearance 29.8 mL/min (>60); Globulin 3.7 gm/dL (2.3-3.5); Glucose 158 mg/dL (74-106); Osmolality,Calculated 307 (275-295); Potassium 5.0 mMol/L (3.4-5.1); Sodium 146 mMol/L (136-145); Total Protein 6.7 gm/dL (5.7-8.2); eGFR 45 See Note
[2024-09-25] MEDS: AMIODARONE 200 MG TABLET GT (08:32)
[2024-09-25] MEDS: FUROSEMIDE 20 MG TABLET GT (08:34)
[2024-09-25] MEDS: ASCORBIC ACID 500 MG TABLET GT ×2 (08:34→20:45)
[2024-09-25] MEDS: VIT D3 GT (08:34)
[2024-09-25] MEDS: MULTIVITAMIN 1 TAB TABLET GT (08:34)
[2024-09-25] MEDS: CALCIUM GT (08:34)
[2024-09-25] MEDS: SENNOSIDES 8.6 MG TABLET GT ×2 (08:35→20:45)
--- NOTE | 2024-09-25 16:38 | PC.NURSE ---
Resident on CBC and CMP monthly, Dr Hernandez reviewed results today, with order received to do the labs q 3 months.
[2024-09-25] MEDS: INSULIN REGULAR, HUMAN 100 UNIT/ML VIAL SC (17:03)
[2024-09-25] MEDS: ATORVASTATIN 40 MG TABLET 80 MG GT (20:45)
[2024-09-26] VITALS (9 sets, daily range): BP systolic 110–114; BP diastolic 50–62; PULSE 71–79; RESP 18–26; TEMP 36.1–36.3; O2SAT 100
[2024-09-26] MEDS: IPRATROPIUM/ALBUTEROL 3 ML AMPUL.NEB INH ×4 (00:23→18:28)
[2024-09-26] MEDS: AMLODIPINE 10 MG TABLET GT (08:10)
[2024-09-26] MEDS: AMIODARONE 200 MG TABLET GT (08:10)
[2024-09-26] MEDS: ASCORBIC ACID 500 MG TABLET GT ×2 (08:11→20:17)
[2024-09-26] MEDS: SENNOSIDES 8.6 MG TABLET GT ×2 (08:12→20:17)
[2024-09-26] MEDS: CALCIUM GT (08:12)
[2024-09-26] MEDS: MULTIVITAMIN 1 TAB TABLET GT (08:12)
[2024-09-26] MEDS: VIT D3 GT (08:12)
[2024-09-26] MEDS: FUROSEMIDE 20 MG TABLET GT (08:12)
[2024-09-26] MEDS: INSULIN REGULAR, HUMAN 100 UNIT/ML VIAL SC (17:56)
[2024-09-26] MEDS: ATORVASTATIN 40 MG TABLET 80 MG GT (20:17)
[2024-09-27] VITALS (9 sets, daily range): BP systolic 85–122; BP diastolic 53–70; PULSE 72–83; RESP 18–27; TEMP 36.1–36.5; O2SAT 98–100
[2024-09-27] MEDS: IPRATROPIUM/ALBUTEROL 3 ML AMPUL.NEB INH ×4 (01:28→18:51)
[2024-09-27] MEDS: AMLODIPINE 10 MG TABLET GT (08:41)
[2024-09-27] MEDS: AMIODARONE 200 MG TABLET GT (08:41)
[2024-09-27] MEDS: CALCIUM GT (08:42)
[2024-09-27] MEDS: SENNOSIDES 8.6 MG TABLET GT ×2 (08:42→20:14)
[2024-09-27] MEDS: MULTIVITAMIN 1 TAB TABLET GT (08:42)
[2024-09-27] MEDS: VIT D3 GT (08:42)
[2024-09-27] MEDS: ASCORBIC ACID 500 MG TABLET GT ×2 (08:42→20:13)
[2024-09-27] MEDS: FUROSEMIDE 20 MG TABLET GT (08:42)
[2024-09-27] MEDS: INSULIN REGULAR, HUMAN 100 UNIT/ML VIAL SC (17:17)
[2024-09-27] MEDS: ATORVASTATIN 40 MG TABLET 80 MG GT (20:14)
[2024-09-28] VITALS (11 sets, daily range): BP systolic 92–117; BP diastolic 49–56; PULSE 55–84; RESP 19–26; TEMP 36.3–36.6; O2SAT 97–100
[2024-09-28] MEDS: IPRATROPIUM/ALBUTEROL 3 ML AMPUL.NEB INH ×5 (00:10→23:51)
[2024-09-28] MEDS: FUROSEMIDE 20 MG TABLET GT (08:22)
[2024-09-28] MEDS: ASCORBIC ACID 500 MG TABLET GT ×2 (08:22→20:26)
[2024-09-28] MEDS: CALCIUM GT (08:22)
[2024-09-28] MEDS: VIT D3 GT (08:22)
[2024-09-28] MEDS: MULTIVITAMIN 1 TAB TABLET GT (08:23)
[2024-09-28] MEDS: SENNOSIDES 8.6 MG TABLET GT ×2 (08:23→20:26)
[2024-09-28] MEDS: ATORVASTATIN 40 MG TABLET 80 MG GT (20:26)
--- NOTE | 2024-09-28 22:17 | PD.SAPROG ---
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 (7) Decubital ulcer: Status: Chronic (8) Deep venous thrombosis: Status: Chronic Qualifiers: DVT location: lower extremity Affected thrombotic vein of extremity: unspecified lower extremity proximal vein Chronicity: chronic Laterality: unspecified laterality Qualified Code(s): I82.5Y9 - Chronic embolism and thrombosis of unspecified deep veins of unspecified proximal lower extremity (9) Diastolic CHF: Status: Chronic Qualifiers: Heart failure chronicity: chronic Qualified Code(s): I50.32 - Chronic diastolic (congestive) heart failure OBJECTIVE Most recent vital signs: Last Vital Signs Temp 97.6 F 09/28/24 16:54 Pulse 84 09/28/24 18:47 Resp 24 H 09/28/24 18:47 BP 111/50 L 09/28/24 16:54 Pulse Ox 99 09/28/24 18:47 O2 Del Method Mechanical Ventilation 09/28/24 16:54 O2 Flow Rate 97 09/28/24 05:52 FiO2 30 09/28/24 18:47 Neurological:: PVS (spontaneous eye opening but no cognizant response to simple commands) Speech:: none Answers questions:: no Respiratory:: shallow breathing Cardiovascular: irregular Abdomen: soft Extremities:: deformities Decubitus:: unchanged Tracheostomy:: to blow by Complaints:: none ASSESSMENT & PLAN Assessment: Pt bed bound with all above etilologies, chronic, and fully dependent for all care . Prognosis very poor. Family considering Hospice care and possible transfer closer to home at [place] if possible. From 06-08-24 to 06-15-24 pt was in Acute Hospital for re-accumulation of Malignant Pleural effusion and requiring drainage for comfort. Returned from acute care on 08-10-24. Current medications reviewed and continued as ongoing. VSS. No distress. Objective achievable is comfort. No distress noted. Pt gained lot of weight with fluid overload during stay in acute care. Diuresis continued for comfort. i's & O's monitored. Mild blood noted in Urine but no discomfort noted Plan: Maintain all support with objective of ensuring comfort.Pt code status changed to comfort measures only and no transfers to acute care
[2024-09-29] VITALS (8 sets, daily range): BP systolic 82–118; BP diastolic 54–66; PULSE 70–82; RESP 18–27; TEMP 36.2–36.6; O2SAT 93–100
[2024-09-29] MEDS: IPRATROPIUM/ALBUTEROL 3 ML AMPUL.NEB INH ×3 (06:17→19:51)
[2024-09-29] MEDS: MULTIVITAMIN 1 TAB TABLET GT (08:23)
[2024-09-29] MEDS: SENNOSIDES 8.6 MG TABLET GT ×2 (08:23→20:47)
[2024-09-29] MEDS: AMLODIPINE 10 MG TABLET GT (08:23)
[2024-09-29] MEDS: FUROSEMIDE 20 MG TABLET GT (08:23)
[2024-09-29] MEDS: MAGNESIUM HYDROXIDE 30 ML ORAL SUSP ML GT (08:23)
[2024-09-29] MEDS: AMIODARONE 200 MG TABLET GT (08:23)
[2024-09-29] MEDS: ASCORBIC ACID 500 MG TABLET GT ×2 (08:23→20:47)
[2024-09-29] MEDS: VIT D3 GT (08:23)
[2024-09-29] MEDS: CALCIUM GT (08:23)
[2024-09-29] MEDS: INSULIN REGULAR, HUMAN 100 UNIT/ML VIAL SC (11:20)
[2024-09-29] MEDS: ATORVASTATIN 40 MG TABLET 80 MG GT (20:47)
[2024-09-29] MEDS: BISACODYL 10 MG SUPP.RECT PR (22:30)
[2024-09-30] VITALS (9 sets, daily range): BP systolic 104–125; BP diastolic 48–86; PULSE 74–88; RESP 20–30; TEMP 36.2–36.6; O2SAT 98–100
[2024-09-30] MEDS: INSULIN REGULAR, HUMAN 100 UNIT/ML VIAL SC ×2 (00:26→11:49)
[2024-09-30] MEDS: IPRATROPIUM/ALBUTEROL 3 ML AMPUL.NEB INH ×4 (01:32→19:35)
[2024-09-30] MEDS: AMIODARONE 200 MG TABLET GT (08:18)
[2024-09-30] MEDS: AMLODIPINE 10 MG TABLET GT (08:18)
[2024-09-30] MEDS: CALCIUM GT (08:19)
[2024-09-30] MEDS: VIT D3 GT (08:19)
[2024-09-30] MEDS: ASCORBIC ACID 500 MG TABLET GT ×2 (08:19→20:38)
[2024-09-30] MEDS: FUROSEMIDE 20 MG TABLET GT (08:20)
[2024-09-30] MEDS: MULTIVITAMIN 1 TAB TABLET GT (08:20)
[2024-09-30] MEDS: SENNOSIDES 8.6 MG TABLET GT ×2 (08:20→20:38)
[2024-09-30] MEDS: ATORVASTATIN 40 MG TABLET 80 MG GT (20:38)
[2024-10-01] VITALS (9 sets, daily range): BP systolic 94–119; BP diastolic 48–67; PULSE 72–80; RESP 17–27; TEMP 36.3–36.7; O2SAT 98–100
[2024-10-01] MEDS: IPRATROPIUM/ALBUTEROL 3 ML AMPUL.NEB INH ×4 (00:37→19:04)
[2024-10-01] MEDS: AMLODIPINE 10 MG TABLET GT (08:46)
[2024-10-01] MEDS: AMIODARONE 200 MG TABLET GT (08:46)
[2024-10-01] MEDS: ASCORBIC ACID 500 MG TABLET GT ×2 (08:47→20:26)
[2024-10-01] MEDS: VIT D3 GT (08:47)
[2024-10-01] MEDS: CALCIUM GT (08:47)
[2024-10-01] MEDS: MULTIVITAMIN 1 TAB TABLET GT (08:48)
[2024-10-01] MEDS: SENNOSIDES 8.6 MG TABLET GT ×2 (08:48→20:26)
[2024-10-01] MEDS: FUROSEMIDE 20 MG TABLET GT (08:48)
[2024-10-01] MEDS: INSULIN REGULAR, HUMAN 100 UNIT/ML VIAL SC (11:49)
[2024-10-01] MEDS: ATORVASTATIN 40 MG TABLET 80 MG GT (20:26)
[2024-10-02] VITALS (11 sets, daily range): BP systolic 101–118; BP diastolic 50–64; PULSE 70–80; RESP 18–25; TEMP 36.1–36.4; O2SAT 98–100; BMI 23.8
[2024-10-02] MEDS: IPRATROPIUM/ALBUTEROL 3 ML AMPUL.NEB INH ×4 (01:33→18:54)
[2024-10-02] MEDS: INSULIN REGULAR, HUMAN 100 UNIT/ML VIAL SC ×2 (05:30→12:29)
[2024-10-02] MEDS: AMIODARONE 200 MG TABLET GT (08:32)
[2024-10-02] MEDS: AMLODIPINE 10 MG TABLET GT (08:33)
[2024-10-02] MEDS: ASCORBIC ACID 500 MG TABLET GT ×2 (08:33→20:25)
[2024-10-02] MEDS: CALCIUM GT (08:34)
[2024-10-02] MEDS: FUROSEMIDE 20 MG TABLET GT (08:34)
[2024-10-02] MEDS: MULTIVITAMIN 1 TAB TABLET GT (08:34)
[2024-10-02] MEDS: VIT D3 GT (08:34)
[2024-10-02] MEDS: SENNOSIDES 8.6 MG TABLET GT ×2 (08:35→20:25)
--- NOTE | 2024-10-02 08:43 | PC.NURSE ---
I weighed Monisha Guaman yesterday on 10/01/24 with the interventional radiologist, we weighed her twice just to make sure we came out with the same weight which was 126.2. We notified the nurse on the muse and I let the Charge nurse know about the weight loss. She was more swollen the last month i weighed her.
--- NOTE | 2024-10-02 17:18 | ESPR_ITS ---
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 (7) Decubital ulcer: Status: Chronic (8) Deep venous thrombosis: Status: Chronic Qualifiers: DVT location: lower extremity Affected thrombotic vein of extremity: unspecified lower extremity proximal vein Chronicity: chronic Laterality: unspecified laterality Qualified Code(s): I82.5Y9 - Chronic embolism and thrombosis of unspecified deep veins of unspecified proximal lower extremity (9) Diastolic CHF: Status: Chronic Qualifiers: Heart failure chronicity: chronic Qualified Code(s): I50.32 - Chronic diastolic (congestive) heart failure OBJECTIVE Most recent vital signs: Last Vital Signs Temp 97.6 F 10/02/24 12:00 Pulse 74 10/02/24 12:42 Resp 22 H 10/02/24 12:42 BP 118/54 L 10/02/24 12:00 Pulse Ox 100 10/02/24 14:35 O2 Del Method Mechanical Ventilation 10/01/24 17:20 O2 Flow Rate 97 09/28/24 05:52 FiO2 30 10/02/24 14:35 Neurological:: PVS (spontaneous eye opening but no cognizant response to simple commands) Speech:: none Answers questions:: no Respiratory:: shallow breathing Cardiovascular: irregular Abdomen: soft Extremities:: deformities Decubitus:: unchanged Tracheostomy:: to blow by Complaints:: none ASSESSMENT & PLAN Assessment: Pt bed bound with all above etilologies, chronic, and fully dependent for all care . Prognosis very poor. Family considering Hospice care and possible transfer closer to home at [place] if possible. From 06-08-24 to 06-15-24 pt was in Acute Hospital for re-accumulation of Malignant Pleural effusion and requiring drainage for comfort. Returned from acute care on 08-10-24. Current medications reviewed and continued as ongoing. VSS. No distress. Objective achievable is comfort. No distress noted. Pt gained lot of weight with fluid overload during stay in acute care. Diuresis continued for comfort. i's & O's monitored. Mild blood noted in Urine but no discomfort noted. Plan: Maintain all support with objective of ensuring comfort.Pt code status changed to comfort measures only and no transfers to acute care
[2024-10-02] MEDS: ATORVASTATIN 40 MG TABLET 80 MG GT (20:25)
[2024-10-03] VITALS (9 sets, daily range): BP systolic 114–129; BP diastolic 53–83; PULSE 73–84; RESP 18–26; TEMP 36.1–36.4; O2SAT 97–100
[2024-10-03] MEDS: IPRATROPIUM/ALBUTEROL 3 ML AMPUL.NEB INH ×4 (00:36→18:43)
[2024-10-03] MEDS: INSULIN REGULAR, HUMAN 100 UNIT/ML VIAL SC ×3 (05:25→23:16)
[2024-10-03] MEDS: AMIODARONE 200 MG TABLET GT (08:25)
[2024-10-03] MEDS: AMLODIPINE 10 MG TABLET GT (08:25)
[2024-10-03] MEDS: CALCIUM GT (08:26)
[2024-10-03] MEDS: FUROSEMIDE 20 MG TABLET GT (08:26)
[2024-10-03] MEDS: VIT D3 GT (08:26)
[2024-10-03] MEDS: ASCORBIC ACID 500 MG TABLET GT ×2 (08:26→20:54)
[2024-10-03] MEDS: SENNOSIDES 8.6 MG TABLET GT ×2 (08:26→20:54)
[2024-10-03] MEDS: MULTIVITAMIN 1 TAB TABLET GT (08:26)
--- NOTE | 2024-10-03 11:31 | PC.SS ---
Resident remains on ventilator with trach in place and GT for medication and nutrition. Resident son is her decision maker, she is unable to make needs known. Resident will remain in current care and will continue to have all subacute care needs met by staff. This SSD will continue to make daily contact with resident and will monitor for changes in mood and behavior.
[2024-10-03] MEDS: ATORVASTATIN 40 MG TABLET 80 MG GT (20:54)
[2024-10-04] VITALS (10 sets, daily range): BP systolic 103–124; BP diastolic 49–63; PULSE 72–84; RESP 18–32; TEMP 36–36.6; O2SAT 98–100
[2024-10-04] MEDS: IPRATROPIUM/ALBUTEROL 3 ML AMPUL.NEB INH ×4 (01:15→17:50)
[2024-10-04] MEDS: AMIODARONE 200 MG TABLET GT (08:12)
[2024-10-04] MEDS: VIT D3 GT (08:13)
[2024-10-04] MEDS: SENNOSIDES 8.6 MG TABLET GT ×2 (08:13→21:12)
[2024-10-04] MEDS: CALCIUM GT (08:13)
[2024-10-04] MEDS: FUROSEMIDE 20 MG TABLET GT (08:13)
[2024-10-04] MEDS: MULTIVITAMIN 1 TAB TABLET GT (08:13)
[2024-10-04] MEDS: ASCORBIC ACID 500 MG TABLET GT ×2 (08:13→21:12)
[2024-10-04] MEDS: AMLODIPINE 10 MG TABLET GT (08:13)
[2024-10-04] MEDS: INSULIN REGULAR, HUMAN 100 UNIT/ML VIAL SC (11:34)
[2024-10-04] MEDS: ATORVASTATIN 40 MG TABLET 80 MG GT (21:12)
[2024-10-05] VITALS (10 sets, daily range): BP systolic 88–119; BP diastolic 50–82; PULSE 72–85; RESP 18–30; TEMP 36.1–36.8; O2SAT 99–100
[2024-10-05] MEDS: IPRATROPIUM/ALBUTEROL 3 ML AMPUL.NEB INH ×4 (00:05→18:15)
[2024-10-05] MEDS: AMIODARONE 200 MG TABLET GT (08:24)
[2024-10-05] MEDS: FUROSEMIDE 20 MG TABLET GT (08:25)
[2024-10-05] MEDS: CALCIUM GT (08:25)
[2024-10-05] MEDS: AMLODIPINE 10 MG TABLET GT (08:25)
[2024-10-05] MEDS: SENNOSIDES 8.6 MG TABLET GT ×2 (08:25→20:26)
[2024-10-05] MEDS: VIT D3 GT (08:25)
[2024-10-05] MEDS: ASCORBIC ACID 500 MG TABLET GT ×2 (08:25→20:26)
[2024-10-05] MEDS: MULTIVITAMIN 1 TAB TABLET GT (08:25)
[2024-10-05] MEDS: INSULIN REGULAR, HUMAN 100 UNIT/ML VIAL SC (11:53)
[2024-10-05] MEDS: ATORVASTATIN 40 MG TABLET 80 MG GT (20:26)
[2024-10-06] VITALS (10 sets, daily range): BP systolic 85–117; BP diastolic 54–65; PULSE 72–85; RESP 18–27; TEMP 36.2–36.5; O2SAT 97–100
[2024-10-06] MEDS: IPRATROPIUM/ALBUTEROL 3 ML AMPUL.NEB INH ×4 (00:05→19:18)
[2024-10-06] MEDS: INSULIN REGULAR, HUMAN 100 UNIT/ML VIAL SC ×2 (05:40→12:01)
[2024-10-06] MEDS: AMIODARONE 200 MG TABLET GT (09:02)
[2024-10-06] MEDS: FUROSEMIDE 20 MG TABLET GT (09:04)
[2024-10-06] MEDS: VIT D3 GT (09:04)
[2024-10-06] MEDS: ASCORBIC ACID 500 MG TABLET GT ×2 (09:04→20:26)
[2024-10-06] MEDS: CALCIUM GT (09:04)
[2024-10-06] MEDS: MULTIVITAMIN 1 TAB TABLET GT (09:05)
[2024-10-06] MEDS: SENNOSIDES 8.6 MG TABLET GT ×2 (09:05→20:26)
[2024-10-06] MEDS: MAGNESIUM HYDROXIDE 30 ML ORAL SUSP ML GT (09:09)
--- NOTE | 2024-10-06 11:21 | ESPR_ITS ---
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 (7) Decubital ulcer: Status: Chronic (8) Deep venous thrombosis: Status: Chronic Qualifiers: DVT location: lower extremity Affected thrombotic vein of extremity: unspecified lower extremity proximal vein Chronicity: chronic Laterality: unspecified laterality Qualified Code(s): I82.5Y9 - Chronic embolism and thrombosis of unspecified deep veins of unspecified proximal lower extremity (9) Diastolic CHF: Status: Chronic Qualifiers: Heart failure chronicity: chronic Qualified Code(s): I50.32 - Chronic diastolic (congestive) heart failure OBJECTIVE Most recent vital signs: Last Vital Signs Temp 97.7 F 10/06/24 05:50 Pulse 72 10/06/24 09:03 Resp 23 H 10/06/24 07:16 BP 107/54 L 10/06/24 09:03 Pulse Ox 99 10/06/24 07:16 O2 Del Method Mechanical Ventilation 10/06/24 05:50 O2 Flow Rate 97 09/28/24 05:52 FiO2 30 10/06/24 07:16 Neurological:: PVS (spontaneous eye opening but no cognizant response to simple commands) Speech:: none Answers questions:: no Respiratory:: shallow breathing Cardiovascular: irregular Abdomen: soft Extremities:: deformities Decubitus:: unchanged Tracheostomy:: to blow by Complaints:: none ASSESSMENT & PLAN Assessment: Pt bed bound with all above etilologies, chronic, and fully dependent for all care . Prognosis very poor. Family considering Hospice care and possible transfer closer to home at [place] if possible. From 06-08-24 to 06-15-24 pt was in Acute Hospital for re-accumulation of Malignant Pleural effusion and requiring drainage for comfort. Returned from acute care on 08-10-24. Current medications reviewed and continued as ongoing. VSS. No distress. Objective achievable is comfort. No distress noted. Pt gained lot of weight with fluid overload during stay in acute care. Diuresis continued for comfort. i's & O's monitored. Mild blood noted in Urine but no discomfort noted. Cleared subsequently Plan: Maintain all support with objective of ensuring comfort.Pt code status changed to comfort measures only and no transfers to acute care
[2024-10-06] MEDS: BISACODYL 10 MG SUPP.RECT PR (16:00)
[2024-10-06] MEDS: ATORVASTATIN 40 MG TABLET 80 MG GT (20:26)
[2024-10-07] VITALS (10 sets, daily range): BP systolic 96–136; BP diastolic 47–63; PULSE 66–83; RESP 18–30; TEMP 36.1–36.3; O2SAT 97–100
[2024-10-07] MEDS: IPRATROPIUM/ALBUTEROL 3 ML AMPUL.NEB INH ×4 (00:29→18:52)
[2024-10-07] MEDS: AMIODARONE 200 MG TABLET GT (08:40)
[2024-10-07] MEDS: VIT D3 GT (08:41)
[2024-10-07] MEDS: AMLODIPINE 10 MG TABLET GT (08:41)
[2024-10-07] MEDS: ASCORBIC ACID 500 MG TABLET GT ×2 (08:41→20:41)
[2024-10-07] MEDS: CALCIUM GT (08:41)
[2024-10-07] MEDS: MULTIVITAMIN 1 TAB TABLET GT (08:42)
[2024-10-07] MEDS: SENNOSIDES 8.6 MG TABLET GT ×2 (08:42→20:42)
[2024-10-07] MEDS: FUROSEMIDE 20 MG TABLET GT (08:42)
[2024-10-07] MEDS: INSULIN REGULAR, HUMAN 100 UNIT/ML VIAL SC (11:46)
[2024-10-07] MEDS: ATORVASTATIN 40 MG TABLET 80 MG GT (20:42)
[2024-10-08] VITALS (9 sets, daily range): BP systolic 105–112; BP diastolic 47–62; PULSE 69–85; RESP 19–33; TEMP 36.2–36.4; O2SAT 95–100
[2024-10-08] MEDS: IPRATROPIUM/ALBUTEROL 3 ML AMPUL.NEB INH ×4 (01:16→19:36)
[2024-10-08] MEDS: MULTIVITAMIN 1 TAB TABLET GT (08:45)
[2024-10-08] MEDS: AMIODARONE 200 MG TABLET GT (08:45)
[2024-10-08] MEDS: ASCORBIC ACID 500 MG TABLET GT ×2 (08:45→21:10)
[2024-10-08] MEDS: AMLODIPINE 10 MG TABLET GT (08:45)
[2024-10-08] MEDS: VIT D3 GT (08:45)
[2024-10-08] MEDS: FUROSEMIDE 20 MG TABLET GT (08:45)
[2024-10-08] MEDS: SENNOSIDES 8.6 MG TABLET GT ×2 (08:45→21:11)
[2024-10-08] MEDS: CALCIUM GT (08:45)
[2024-10-08] MEDS: INSULIN REGULAR, HUMAN 100 UNIT/ML VIAL SC (11:43)
[2024-10-08] MEDS: ACETAMINOPHEN 325 MG TABLET 650 MG GT ×2 (13:40→21:21)
[2024-10-08] MEDS: ATORVASTATIN 40 MG TABLET 80 MG GT (21:11)
[2024-10-09] VITALS (10 sets, daily range): BP systolic 106–118; BP diastolic 46–57; PULSE 65–78; RESP 18–26; TEMP 36.3–36.6; O2SAT 98–100
[2024-10-09] MEDS: IPRATROPIUM/ALBUTEROL 3 ML AMPUL.NEB INH ×4 (01:03→19:15)
[2024-10-09] MEDS: AMIODARONE 200 MG TABLET GT (08:27)
[2024-10-09] MEDS: AMLODIPINE 10 MG TABLET GT (08:28)
[2024-10-09] MEDS: ASCORBIC ACID 500 MG TABLET GT ×2 (08:28→20:38)
[2024-10-09] MEDS: CALCIUM GT (08:28)
[2024-10-09] MEDS: VIT D3 GT (08:28)
[2024-10-09] MEDS: MULTIVITAMIN 1 TAB TABLET GT (08:29)
[2024-10-09] MEDS: FUROSEMIDE 20 MG TABLET GT (08:29)
[2024-10-09] MEDS: SENNOSIDES 8.6 MG TABLET GT ×2 (08:30→20:39)
[2024-10-09] MEDS: INSULIN REGULAR, HUMAN 100 UNIT/ML VIAL SC (11:16)
[2024-10-09] MEDS: ACETAMINOPHEN 325 MG TABLET 650 MG GT (14:45)
[2024-10-09] MEDS: ATORVASTATIN 40 MG TABLET 80 MG GT (20:39)
[2024-10-10] VITALS (9 sets, daily range): BP systolic 102–114; BP diastolic 47–59; PULSE 73–82; RESP 18–27; TEMP 36.4–36.6; O2SAT 92–100
[2024-10-10] MEDS: IPRATROPIUM/ALBUTEROL 3 ML AMPUL.NEB INH ×4 (00:45→21:21)
[2024-10-10] MEDS: INSULIN REGULAR, HUMAN 100 UNIT/ML VIAL SC (05:31)
[2024-10-10] MEDS: CALCIUM GT (08:40)
[2024-10-10] MEDS: ASCORBIC ACID 500 MG TABLET GT ×2 (08:40→20:31)
[2024-10-10] MEDS: VIT D3 GT (08:40)
[2024-10-10] MEDS: FUROSEMIDE 20 MG TABLET GT (08:40)
[2024-10-10] MEDS: SENNOSIDES 8.6 MG TABLET GT ×2 (08:41→20:31)
[2024-10-10] MEDS: MULTIVITAMIN 1 TAB TABLET GT (08:41)
[2024-10-10] MEDS: AMIODARONE 200 MG TABLET GT (08:43)
[2024-10-10] MEDS: ATORVASTATIN 40 MG TABLET 80 MG GT (20:31)
[2024-10-10] MEDS: ACETAMINOPHEN 325 MG TABLET 650 MG GT (20:32)
--- NOTE | 2024-10-10 21:48 | ESPR_ITS ---
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 (7) Decubital ulcer: Status: Chronic (8) Deep venous thrombosis: Status: Chronic Qualifiers: DVT location: lower extremity Affected thrombotic vein of extremity: unspecified lower extremity proximal vein Chronicity: chronic Laterality: unspecified laterality Qualified Code(s): I82.5Y9 - Chronic embolism and thrombosis of unspecified deep veins of unspecified proximal lower extremity (9) Diastolic CHF: Status: Chronic Qualifiers: Heart failure chronicity: chronic Qualified Code(s): I50.32 - Chronic diastolic (congestive) heart failure OBJECTIVE Most recent vital signs: Last Vital Signs Temp 97.5 F 10/10/24 17:18 Pulse 80 10/10/24 21:29 Resp 18 10/10/24 21:29 BP 102/59 L 10/10/24 17:18 Pulse Ox 99 10/10/24 21:29 O2 Del Method Mechanical Ventilation 10/08/24 05:51 O2 Flow Rate 97 09/28/24 05:52 FiO2 30 10/10/24 21:29 Neurological:: PVS (spontaneous eye opening but no cognizant response to simple commands) Speech:: none Answers questions:: no Respiratory:: shallow breathing Cardiovascular: irregular Abdomen: soft Extremities:: deformities Decubitus:: unchanged Tracheostomy:: to blow by Complaints:: none ASSESSMENT & PLAN Assessment: Pt bed bound with all above etilologies, chronic, and fully dependent for all care . Prognosis very poor. Family considering Hospice care and possible transfer closer to home at [place] if possible. From 06-08-24 to 06-15-24 pt was in Acute Hospital for re-accumulation of Malignant Pleural effusion and requiring drainage for comfort. Returned from acute care on 08-10-24. Current medications reviewed and continued as ongoing. VSS. No distress. Objective achievable is comfort. No distress noted. Pt gained lot of weight with fluid overload during stay in acute care. Diuresis continued for comfort. i's & O's monitored. Mild blood noted in Urine but no discomfort noted. Cleared subsequently. Objective of comfort being achieved. Plan: Maintain all support with objective of ensuring comfort.Pt code status changed to comfort measures only and no transfers to acute care
[2024-10-11] VITALS (9 sets, daily range): BP systolic 108–130; BP diastolic 60–65; PULSE 68–81; RESP 18–28; TEMP 36.1–36.3; O2SAT 97–100
[2024-10-11] MEDS: IPRATROPIUM/ALBUTEROL 3 ML AMPUL.NEB INH ×4 (00:22→18:14)
[2024-10-11] MEDS: INSULIN REGULAR, HUMAN 100 UNIT/ML VIAL SC (05:26)
[2024-10-11] MEDS: AMIODARONE 200 MG TABLET GT (08:17)
[2024-10-11] MEDS: AMLODIPINE 10 MG TABLET GT (08:17)
[2024-10-11] MEDS: ASCORBIC ACID 500 MG TABLET GT ×2 (08:18→20:33)
[2024-10-11] MEDS: MULTIVITAMIN 1 TAB TABLET GT (08:19)
[2024-10-11] MEDS: CALCIUM GT (08:19)
[2024-10-11] MEDS: FUROSEMIDE 20 MG TABLET GT (08:19)
[2024-10-11] MEDS: VIT D3 GT (08:19)
[2024-10-11] MEDS: SENNOSIDES 8.6 MG TABLET GT ×2 (08:20→20:44)
[2024-10-11] MEDS: ATORVASTATIN 40 MG TABLET 80 MG GT (20:44)
[2024-10-12] VITALS (9 sets, daily range): BP systolic 97–124; BP diastolic 54–65; PULSE 73–87; RESP 18–26; TEMP 36.2–36.5; O2SAT 97–100
[2024-10-12] MEDS: IPRATROPIUM/ALBUTEROL 3 ML AMPUL.NEB INH ×4 (00:26→14:57)
[2024-10-12] MEDS: AMIODARONE 200 MG TABLET GT (08:20)
[2024-10-12] MEDS: CALCIUM GT (08:22)
[2024-10-12] MEDS: FUROSEMIDE 20 MG TABLET GT (08:22)
[2024-10-12] MEDS: VIT D3 GT (08:22)
[2024-10-12] MEDS: ASCORBIC ACID 500 MG TABLET GT ×2 (08:22→21:25)
[2024-10-12] MEDS: SENNOSIDES 8.6 MG TABLET GT ×2 (08:23→21:26)
[2024-10-12] MEDS: MULTIVITAMIN 1 TAB TABLET GT (08:23)
--- NOTE | 2024-10-12 11:02 | PC.SS ---
Resident remains on vent with trach in place and GT for medication and nutrition. Resident is unable to make decisions for self as she has absence of speech, her decision maker is her son Rashel. Resident will remain in current care and will continue to have all subacute care needs met by staff. This SSD will make daily contact with resident and will offer support as needed.
[2024-10-12] MEDS: ACETAMINOPHEN 325 MG TABLET 650 MG GT (11:10)
[2024-10-12] MEDS: MAGNESIUM HYDROXIDE 30 ML ORAL SUSP ML GT (11:11)
[2024-10-12] MEDS: INSULIN REGULAR, HUMAN 100 UNIT/ML VIAL SC (11:26)
[2024-10-12] MEDS: ATORVASTATIN 40 MG TABLET 80 MG GT (21:26)
[2024-10-13] VITALS (10 sets, daily range): BP systolic 105–126; BP diastolic 48–57; PULSE 72–86; RESP 18–27; TEMP 36.1–36.8; O2SAT 97–100
[2024-10-13] MEDS: INSULIN REGULAR, HUMAN 100 UNIT/ML VIAL SC ×2 (00:21→23:11)
[2024-10-13] MEDS: IPRATROPIUM/ALBUTEROL 3 ML AMPUL.NEB INH ×4 (00:32→18:42)
[2024-10-13] MEDS: MULTIVITAMIN 1 TAB TABLET GT (08:45)
[2024-10-13] MEDS: SENNOSIDES 8.6 MG TABLET GT ×2 (08:45→20:32)
[2024-10-13] MEDS: FUROSEMIDE 20 MG TABLET GT (08:45)
[2024-10-13] MEDS: VIT D3 GT (08:45)
[2024-10-13] MEDS: CALCIUM GT (08:45)
[2024-10-13] MEDS: ASCORBIC ACID 500 MG TABLET GT ×2 (08:45→20:32)
[2024-10-13] MEDS: AMIODARONE 200 MG TABLET GT (08:46)
[2024-10-13] MEDS: ACETAMINOPHEN 325 MG TABLET 650 MG GT (16:20)
[2024-10-13] MEDS: ATORVASTATIN 40 MG TABLET 80 MG GT (20:32)
[2024-10-14] VITALS (9 sets, daily range): BP systolic 99–124; BP diastolic 51–76; PULSE 68–80; RESP 21–26; TEMP 36–36.6; O2SAT 97–100
[2024-10-14] MEDS: IPRATROPIUM/ALBUTEROL 3 ML AMPUL.NEB INH ×4 (01:30→18:50)
[2024-10-14] MEDS: AMLODIPINE 10 MG TABLET GT (08:37)
[2024-10-14] MEDS: FUROSEMIDE 20 MG TABLET GT (08:37)
[2024-10-14] MEDS: AMIODARONE 200 MG TABLET GT (08:37)
[2024-10-14] MEDS: VIT D3 GT (08:37)
[2024-10-14] MEDS: ASCORBIC ACID 500 MG TABLET GT ×2 (08:37→20:50)
[2024-10-14] MEDS: SENNOSIDES 8.6 MG TABLET GT ×2 (08:37→20:51)
[2024-10-14] MEDS: MULTIVITAMIN 1 TAB TABLET GT (08:37)
[2024-10-14] MEDS: CALCIUM GT (08:37)
[2024-10-14] MEDS: ATORVASTATIN 40 MG TABLET 80 MG GT (20:50)
--- NOTE | 2024-10-14 22:20 | PD.SAPROG ---
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 (7) Decubital ulcer: Status: Chronic (8) Deep venous thrombosis: Status: Chronic Qualifiers: DVT location: lower extremity Affected thrombotic vein of extremity: unspecified lower extremity proximal vein Chronicity: chronic Laterality: unspecified laterality Qualified Code(s): I82.5Y9 - Chronic embolism and thrombosis of unspecified deep veins of unspecified proximal lower extremity (9) Diastolic CHF: Status: Chronic Qualifiers: Heart failure chronicity: chronic Qualified Code(s): I50.32 - Chronic diastolic (congestive) heart failure OBJECTIVE Most recent vital signs: Last Vital Signs Temp 97.9 F 10/14/24 17:20 Pulse 79 10/14/24 17:20 Resp 25 H 10/14/24 17:20 BP 124/56 L 10/14/24 17:20 Pulse Ox 99 10/14/24 17:20 O2 Del Method Mechanical Ventilation 10/14/24 17:20 O2 Flow Rate 97 09/28/24 05:52 FiO2 30 10/14/24 12:15 Neurological:: PVS (spontaneous eye opening but no cognizant response to simple commands) Speech:: none Answers questions:: no Respiratory:: shallow breathing Cardiovascular: irregular Abdomen: soft Extremities:: deformities Decubitus:: unchanged Tracheostomy:: to blow by Complaints:: none ASSESSMENT & PLAN Assessment: Pt bed bound with all above etilologies, chronic, and fully dependent for all care . Prognosis very poor. Family considering Hospice care and possible transfer closer to home at [place] if possible. From 06-08-24 to 06-15-24 pt was in Acute [facility] for re-accumulation of Malignant Pleural effusion and requiring drainage for comfort. Returned from acute care on 08-10-24. Current medications reviewed and continued as ongoing. VSS. No distress. Objective achievable is comfort. No distress noted. Pt gained lot of weight with fluid overload during stay in acute care. Diuresis continued for comfort. i's & O's monitored. Mild blood noted in Urine but no discomfort noted. Cleared subsequently. Objective of comfort being achieved. Plan: Maintain all support with objective of ensuring comfort.Pt code status changed to comfort measures only and no transfers to acute care
[2024-10-15] VITALS (9 sets, daily range): BP systolic 107–121; BP diastolic 58–63; PULSE 69–82; RESP 19–27; TEMP 35.9–37; O2SAT 97–99
[2024-10-15] MEDS: IPRATROPIUM/ALBUTEROL 3 ML AMPUL.NEB INH ×4 (00:27→18:57)
[2024-10-15] MEDS: INSULIN REGULAR, HUMAN 100 UNIT/ML VIAL SC (05:35)
[2024-10-15] MEDS: AMIODARONE 200 MG TABLET GT (09:38)
[2024-10-15] MEDS: AMLODIPINE 10 MG TABLET GT (09:38)
[2024-10-15] MEDS: FUROSEMIDE 20 MG TABLET GT (09:39)
[2024-10-15] MEDS: VIT D3 GT (09:39)
[2024-10-15] MEDS: MULTIVITAMIN 1 TAB TABLET GT (09:39)
[2024-10-15] MEDS: SENNOSIDES 8.6 MG TABLET GT ×2 (09:39→20:52)
[2024-10-15] MEDS: ASCORBIC ACID 500 MG TABLET GT ×2 (09:39→20:50)
[2024-10-15] MEDS: CALCIUM GT (09:39)
[2024-10-15] MEDS: ATORVASTATIN 40 MG TABLET 80 MG GT (20:51)
[2024-10-16] VITALS (9 sets, daily range): BP systolic 103–126; BP diastolic 51–57; PULSE 64–86; RESP 21–28; TEMP 36.2–36.4; O2SAT 98–99
[2024-10-16] MEDS: IPRATROPIUM/ALBUTEROL 3 ML AMPUL.NEB INH ×4 (00:56→19:19)
[2024-10-16] MEDS: INSULIN REGULAR, HUMAN 100 UNIT/ML VIAL SC ×2 (05:46→17:49)
[2024-10-16] MEDS: AMIODARONE 200 MG TABLET GT (08:07)
[2024-10-16] MEDS: AMLODIPINE 10 MG TABLET GT (08:07)
[2024-10-16] MEDS: ASCORBIC ACID 500 MG TABLET GT ×2 (08:08→20:17)
[2024-10-16] MEDS: CALCIUM GT (08:08)
[2024-10-16] MEDS: FUROSEMIDE 20 MG TABLET GT (08:08)
[2024-10-16] MEDS: VIT D3 GT (08:08)
[2024-10-16] MEDS: SENNOSIDES 8.6 MG TABLET GT ×2 (08:09→20:17)
[2024-10-16] MEDS: MULTIVITAMIN 1 TAB TABLET GT (08:09)
[2024-10-16] MEDS: MAGNESIUM HYDROXIDE 30 ML ORAL SUSP ML GT (09:39)
[2024-10-16] MEDS: ACETAMINOPHEN 325 MG TABLET 650 MG GT (12:04)
[2024-10-16] MEDS: ATORVASTATIN 40 MG TABLET 80 MG GT (20:17)
[2024-10-17] VITALS (10 sets, daily range): BP systolic 107–122; BP diastolic 50–58; PULSE 77–94; RESP 18–33; TEMP 36.4–37.6; O2SAT 98–99
[2024-10-17] MEDS: IPRATROPIUM/ALBUTEROL 3 ML AMPUL.NEB INH ×4 (01:26→18:57)
[2024-10-17] MEDS: AMIODARONE 200 MG TABLET GT (08:35)
[2024-10-17] MEDS: AMLODIPINE 10 MG TABLET GT (08:36)
[2024-10-17] MEDS: ASCORBIC ACID 500 MG TABLET GT ×2 (08:36→20:45)
[2024-10-17] MEDS: VIT D3 GT (08:37)
[2024-10-17] MEDS: CALCIUM GT (08:37)
[2024-10-17] MEDS: FUROSEMIDE 20 MG TABLET GT (08:37)
[2024-10-17] MEDS: MULTIVITAMIN 1 TAB TABLET GT (08:37)
[2024-10-17] MEDS: ACETAMINOPHEN 325 MG TABLET 650 MG GT (08:38)
[2024-10-17] MEDS: SENNOSIDES 8.6 MG TABLET GT ×2 (08:38→20:45)
[2024-10-17] MEDS: INSULIN REGULAR, HUMAN 100 UNIT/ML VIAL SC (11:05)
[2024-10-17] MEDS: ATORVASTATIN 40 MG TABLET 80 MG GT (20:45)
[2024-10-18] VITALS (9 sets, daily range): BP systolic 94–117; BP diastolic 50–57; PULSE 74–83; RESP 20–81; TEMP 36.1–36.4; O2SAT 98–99
[2024-10-18] MEDS: INSULIN REGULAR, HUMAN 100 UNIT/ML VIAL SC ×2 (00:14→11:51)
[2024-10-18] MEDS: IPRATROPIUM/ALBUTEROL 3 ML AMPUL.NEB INH ×4 (00:14→19:03)
[2024-10-18] MEDS: ASCORBIC ACID 500 MG TABLET GT ×2 (08:21→20:57)
[2024-10-18] MEDS: FUROSEMIDE 20 MG TABLET GT (08:21)
[2024-10-18] MEDS: AMIODARONE 200 MG TABLET GT (08:21)
[2024-10-18] MEDS: VIT D3 GT (08:21)
[2024-10-18] MEDS: SENNOSIDES 8.6 MG TABLET GT ×2 (08:21→20:58)
[2024-10-18] MEDS: CALCIUM GT (08:21)
[2024-10-18] MEDS: MULTIVITAMIN 1 TAB TABLET GT (08:21)
[2024-10-18] MEDS: AMLODIPINE 10 MG TABLET GT (08:21)
--- NOTE | 2024-10-18 15:23 | ESPR_ITS ---
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 (7) Decubital ulcer: Status: Chronic (8) Deep venous thrombosis: Status: Chronic Qualifiers: DVT location: lower extremity Affected thrombotic vein of extremity: unspecified lower extremity proximal vein Chronicity: chronic Laterality: unspecified laterality Qualified Code(s): I82.5Y9 - Chronic embolism and thrombosis of unspecified deep veins of unspecified proximal lower extremity (9) Diastolic CHF: Status: Chronic Qualifiers: Heart failure chronicity: chronic Qualified Code(s): I50.32 - Chronic diastolic (congestive) heart failure OBJECTIVE Most recent vital signs: Last Vital Signs Temp 96.9 F 10/18/24 12:00 Pulse 74 10/18/24 12:19 Resp 22 H 10/18/24 12:19 BP 94/57 L 10/18/24 12:00 Pulse Ox 99 10/18/24 12:19 O2 Del Method Mechanical Ventilation 10/18/24 06:00 O2 Flow Rate 97 09/28/24 05:52 FiO2 30 10/18/24 12:19 Neurological:: PVS (spontaneous eye opening but no cognizant response to simple commands) Speech:: none Answers questions:: no Respiratory:: shallow breathing Cardiovascular: irregular Abdomen: soft Extremities:: deformities Decubitus:: unchanged Tracheostomy:: to blow by Complaints:: none ASSESSMENT & PLAN Assessment: Pt bed bound with all above etilologies, chronic, and fully dependent for all care . Prognosis very poor. Family considering Hospice care and possible transfer closer to home at [place] if possible. From 06-08-24 to 06-15-24 pt was in Acute Hospital for re-accumulation of Malignant Pleural effusion and requiring drainage for comfort. Returned from acute care on 08-10-24. Current medications reviewed and continued as ongoing. VSS. No distress. Objective achievable is comfort. No distress noted. Pt gained lot of weight with fluid overload during stay in acute care. Diuresis continued for comfort. i's & O's monitored. Mild blood noted in Urine but no discomfort noted. Cleared subsequently. Objective of comfort being achieved.VSS Plan: Maintain all support with objective of ensuring comfort.Pt code status changed to comfort measures only and no transfers to acute care
[2024-10-18] MEDS: ACETAMINOPHEN 325 MG TABLET 650 MG GT (15:55)
[2024-10-18] MEDS: ATORVASTATIN 40 MG TABLET 80 MG GT (20:57)
[2024-10-19] VITALS (10 sets, daily range): BP systolic 97–113; BP diastolic 53–62; PULSE 65–78; RESP 20–30; TEMP 36–36.4; O2SAT 97–100
[2024-10-19] MEDS: INSULIN REGULAR, HUMAN 100 UNIT/ML VIAL SC ×2 (00:11→05:21)
[2024-10-19] MEDS: IPRATROPIUM/ALBUTEROL 3 ML AMPUL.NEB INH ×4 (01:02→18:39)
[2024-10-19] MEDS: ASCORBIC ACID 500 MG TABLET GT ×2 (08:52→21:17)
[2024-10-19] MEDS: AMIODARONE 200 MG TABLET GT (08:52)
[2024-10-19] MEDS: CALCIUM GT (08:52)
[2024-10-19] MEDS: MULTIVITAMIN 1 TAB TABLET GT (08:52)
[2024-10-19] MEDS: SENNOSIDES 8.6 MG TABLET GT ×2 (08:52→21:18)
[2024-10-19] MEDS: FUROSEMIDE 20 MG TABLET GT (08:52)
[2024-10-19] MEDS: AMLODIPINE 10 MG TABLET GT (08:52)
[2024-10-19] MEDS: VIT D3 GT (08:52)
[2024-10-19] MEDS: ACETAMINOPHEN 325 MG TABLET 650 MG GT ×2 (08:54→21:19)
--- NOTE | 2024-10-19 14:51 | PC.SS ---
Resident remains on vent with trach in place and GT for medication and nutrition. She does not have POA in place, family aware this services is offered in facility but resident is unable to participate in this services. She is represented by her son Rashel as she is unable to make needs known. Resident will remain in current care and will continue to have all subacute care needs met by staff. This SSD will continue to make daily contact with resident and will offer support as needed.
[2024-10-19] MEDS: ATORVASTATIN 40 MG TABLET 80 MG GT (21:18)
[2024-10-20] VITALS (9 sets, daily range): BP systolic 104–125; BP diastolic 50–58; PULSE 72–77; RESP 20–31; TEMP 36.1–36.8; O2SAT 96–100
[2024-10-20] MEDS: IPRATROPIUM/ALBUTEROL 3 ML AMPUL.NEB INH ×4 (00:13→18:24)
[2024-10-20] MEDS: INSULIN REGULAR, HUMAN 100 UNIT/ML VIAL SC ×2 (00:17→17:26)
[2024-10-20] MEDS: AMIODARONE 200 MG TABLET GT (08:19)
[2024-10-20] MEDS: AMLODIPINE 10 MG TABLET GT (08:21)
[2024-10-20] MEDS: ASCORBIC ACID 500 MG TABLET GT ×2 (08:21→20:56)
[2024-10-20] MEDS: CALCIUM GT (08:22)
[2024-10-20] MEDS: VIT D3 GT (08:22)
[2024-10-20] MEDS: MULTIVITAMIN 1 TAB TABLET GT (08:23)
[2024-10-20] MEDS: SENNOSIDES 8.6 MG TABLET GT ×2 (08:23→20:56)
[2024-10-20] MEDS: FUROSEMIDE 20 MG TABLET GT (08:23)
[2024-10-20] MEDS: ACETAMINOPHEN 325 MG TABLET 650 MG GT (16:56)
[2024-10-20] MEDS: ATORVASTATIN 40 MG TABLET 80 MG GT (20:56)
[2024-10-21] VITALS (16 sets, daily range): BP systolic 89–129; BP diastolic 47–72; PULSE 67–96; RESP 22–41; TEMP 36.1–39.4; O2SAT 90–100
[2024-10-21] MEDS: IPRATROPIUM/ALBUTEROL 3 ML AMPUL.NEB INH (00:22)
[2024-10-21] MEDS: AMIODARONE 200 MG TABLET GT (08:38)
[2024-10-21] MEDS: AMLODIPINE 10 MG TABLET GT (08:39)
[2024-10-21] MEDS: ASCORBIC ACID 500 MG TABLET GT ×2 (08:39→20:31)
[2024-10-21] MEDS: FUROSEMIDE 20 MG TABLET GT (08:40)
[2024-10-21] MEDS: MULTIVITAMIN 1 TAB TABLET GT (08:40)
[2024-10-21] MEDS: SENNOSIDES 8.6 MG TABLET GT ×2 (08:40→20:34)
[2024-10-21] MEDS: VIT D3 GT (08:40)
[2024-10-21] MEDS: CALCIUM GT (08:40)
[2024-10-21] MEDS: ACETAMINOPHEN 325 MG TABLET 650 MG GT ×3 (09:40→20:31)
--- NOTE | 2024-10-21 09:47 | PC.NURSE ---
pt temp is 103 rectally, tylenol 650 mg given and cooling measures applied, charge nurse is aware
[2024-10-21] MEDS: INSULIN REGULAR, HUMAN 100 UNIT/ML VIAL SC (11:10)
--- NOTE | 2024-10-21 11:32 | PC.NURSE ---
at 1130, temp was 100.8 rectally, continue cooling measures and charge nurse is aware
--- NOTE | 2024-10-21 12:15 | XR_ITS ---
Examination: AP chest single view Technique one AP upright portable chest single view Date and time: October 21, 2024, 12:26 PM Comparison August 07, 2024 Indications: Difficulty breathing this week. Findings: [id number] heart failure Moderate enlargement left ventricle with prominent vascular congestion and perihilar edema Prominent pneumonia left base Mild right moderate left pleural fluid Tracheostomy tube tip 7.2 cm above segundo Severe osteopenia Impression: [id number] heart failure Prominent pneumonia left base, consider aspiration pneumonia
--- NOTE | 2024-10-21 12:49 | PC.NURSE ---
Addendum entered by Enedina Bettencourt RN 10/21/24 19:59: 10/21/24@1800: Pt continues with a temp 100.6, RR21, bp 89/42, HR 69 and stable. Family aware. Addendum entered by Enedina Bettencourt RN 10/21/24 19:53: Late entry for 10/21/24@1731: Eldest Son returned call to unit after seeing he had a missed call. This functional tester typewriters went over current code status of DNR and asked if he wanted re-evaluate and make changes to code status. Mr. Oh could not bring himself to make any changes himself. Mr. Oh requested this functional tester typewriters call younger sibling, Rashel Oh to decide whether to make any changes. Upon calling Rashel Oh, son stated firmly that he did not wish to changes DNR code status. Addendum entered by Enedina Bettencourt RN 10/21/24 13:31: 10/21/24@1221: Pt's (Shemar Oh) son called to notify about mothers condition and he didn't answer so message was left on his voicemail. Addendum entered by Enedina Bettencourt RN 10/21/24 13:29: Late Entry 10/21/24@0925: Vital signs Pt's temp checked and is now at 103., RR42, HR 120, Sats 90. Chest xray ordered to r/o apiration resulting from previous emesis. Cooling measures started. Will continue to monitor condition. Original Note: Late Entry 10/21/24@0900: This functional tester typewriters was called to pt's bedside to see about the vent. Upon arrive to bedside pt had vomited a large about onto her gown. This functional tester typewriters immediately suctioned pt to check for aspiration and no residuals were noted in the tubing. Pt was experiencing some tachypnea. Respiratory was called to bedside to evaluate pt. FI02 was increased from 30 to 45% and resp. tx was given.
--- NOTE | 2024-10-21 15:27 | PC.NURSE ---
10/21/24@1527: Dr. Hernandez called and made aware of pt's change in condition. Keep comfortable and add 250ml of H20 extra q shift x24 hrs. If temp goes continues to go up, call him back to order broad spectrum IV antibiotics. No fever protocol at this time.
--- NOTE | 2024-10-21 15:28 | PC.NURSE ---
re-check temp at 1500 with the charge nurse, it went down to 100.4 rectally, continue cooling measures and monitor
--- NOTE | 2024-10-21 17:44 | PC.NURSE ---
continue monitoring pt, charge nurse is very aware
[2024-10-21] MEDS: ATORVASTATIN 40 MG TABLET 80 MG GT (20:34)
--- NOTE | 2024-10-21 20:36 | PC.NURSE ---
DR. POND MADE AWARE OF RESIDENT'S VITALS, TEMPERATURE 100.5 RECTALLY BP 99/47 HR 71 RR 27. CHEST XRAY RESULT READ TO MD AND REVIEWED POLST( COMFORT MEASURES, WITH YES TO LABS). NO ORDERS FOR LABS AT THIS TIME RECOMMEDED BY DR. POND @ 1999. PLAN OF CARE REVIEWED WITH FAMILY, SON, JU, AT BEDSIDE. EXPLAINED TYLENOL WILL BE GIVEN FOR TYLENOL AND EXTRA FLUIDS FOR FEVER. NO LABS WILL BE TAKEN AT THIS TIME. ZOFRAN IS ORDERED NEEDED FOR NAUSEA/VOMITTING. JU HAD NO QUESTIONS AT THIS TIME.
[2024-10-22] VITALS (12 sets, daily range): BP systolic 94–114; BP diastolic 49–60; PULSE 64–90; RESP 22–36; TEMP 36.6–38.9; O2SAT 98–100
[2024-10-22] MEDS: INSULIN REGULAR, HUMAN 100 UNIT/ML VIAL SC ×3 (00:15→17:21)
[2024-10-22] MEDS: ACETAMINOPHEN 325 MG TABLET 650 MG GT ×3 (00:31→20:35)
[2024-10-22] MEDS: AMLODIPINE 10 MG TABLET GT (09:14)
[2024-10-22] MEDS: MULTIVITAMIN 1 TAB TABLET GT (09:14)
[2024-10-22] MEDS: AMIODARONE 200 MG TABLET GT (09:14)
[2024-10-22] MEDS: FUROSEMIDE 20 MG TABLET GT (09:14)
[2024-10-22] MEDS: CALCIUM GT (09:14)
[2024-10-22] MEDS: VIT D3 GT (09:14)
[2024-10-22] MEDS: ASCORBIC ACID 500 MG TABLET GT ×2 (09:14→20:41)
[2024-10-22] MEDS: SENNOSIDES 8.6 MG TABLET GT ×2 (09:14→20:42)
[2024-10-22] MEDS: IBUPROFEN 100 MG/5 ML ORAL.SUSP 600 MG GT (11:45)
[2024-10-22] MEDS: IPRATROPIUM/ALBUTEROL 3 ML AMPUL.NEB INH ×2 (11:50→19:32)
[2024-10-22] MEDS: ATORVASTATIN 40 MG TABLET 80 MG GT (20:42)
--- NOTE | 2024-10-22 22:49 | ESPR_ITS ---
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 (7) Decubital ulcer: Status: Chronic (8) Deep venous thrombosis: Status: Chronic Qualifiers: DVT location: lower extremity Affected thrombotic vein of extremity: unspecified lower extremity proximal vein Chronicity: chronic Laterality: unspecified laterality Qualified Code(s): I82.5Y9 - Chronic embolism and thrombosis of unspecified deep veins of unspecified proximal lower extremity (9) Diastolic CHF: Status: Chronic Qualifiers: Heart failure chronicity: chronic Qualified Code(s): I50.32 - Chronic diastolic (congestive) heart failure OBJECTIVE Most recent vital signs: Last Vital Signs Temp 98 F 10/22/24 18:00 Pulse 64 10/22/24 20:24 Resp 36 H 10/22/24 20:24 BP 94/50 L 10/22/24 18:00 Pulse Ox 99 10/22/24 20:24 O2 Del Method Mechanical Ventilation 10/22/24 06:00 O2 Flow Rate 97 09/28/24 05:52 FiO2 30 10/22/24 22:00 Neurological:: PVS (spontaneous eye opening but no cognizant response to simple commands) Speech:: none Answers questions:: no Respiratory:: shallow breathing Cardiovascular: irregular Abdomen: soft Extremities:: deformities Decubitus:: unchanged Tracheostomy:: to blow by Complaints:: none ASSESSMENT & PLAN Assessment: Pt bed bound with all above etilologies, chronic, and fully dependent for all care . Prognosis very poor. Family considering Hospice care and possible transfer closer to home at [place] if possible. From 06-08-24 to 06-15-24 pt was in Acute Hospital for re-accumulation of Malignant Pleural effusion and requiring drainage for comfort. Returned from acute care on 08-10-24. Current medications reviewed and continued as ongoing. VSS. No distress. Objective achievable is comfort. No distress noted. Pt gained lot of weight with fluid overload during stay in acute care. Diuresis continued for comfort. i's & O's monitored. Mild blood noted in Urine but no discomfort noted. Cleared subsequently. Objective of comfort being achieved. For two days spiking fever and some emesis controlled with medication. Possible aspiration. Symptomatic treatment effective. Plan: Maintain all support with objective of ensuring comfort.Pt code status changed to comfort measures only and no transfers to acute care
[2024-10-23] VITALS (9 sets, daily range): BP systolic 83–103; BP diastolic 32–57; PULSE 55–88; RESP 23–40; TEMP 36.2–38.7; O2SAT 98–99
[2024-10-23] MEDS: IPRATROPIUM/ALBUTEROL 3 ML AMPUL.NEB INH ×4 (01:19→18:16)
[2024-10-23] MEDS: IBUPROFEN 100 MG/5 ML ORAL.SUSP 600 MG GT (04:27)
--- NOTE | 2024-10-23 04:34 | PC.NURSE ---
Dr. Hernandez made aware @ 0418 that resident has temperature 101.6 rectally BP 84/48 HR 55 RR 43, 98% O2 sat on vent, lethargic. Ordered Clindamycin at this time and keep resident comfortable. Son, Rashel, updated @ 042 on resident's condition, lethargic, blood pressure is low, has fever, that MD ordered antibiotic. Son had no questions.
--- NOTE | 2024-10-23 04:49 | PC.NURSE ---
Called to residents room by TRACK REPAIRER stating she was unable to obtain a blood pressure via electric vital sign monitor. This nurse obtained a manual blood pressure of 84/48, HR 55, RR 43 and rectal temp. of 101.6. Cooling measures initiated and charge nurse notified. PRN ibuprofen administered as ordered. Resident suctioned and repositioned for comfort.
[2024-10-23] MEDS: CLINDAMYCIN 300 MG 300 EA GT ×3 (05:03→17:01)
[2024-10-23] MEDS: AMIODARONE 200 MG TABLET GT (08:17)
[2024-10-23] MEDS: VIT D3 GT (08:18)
[2024-10-23] MEDS: CALCIUM GT (08:18)
[2024-10-23] MEDS: SENNOSIDES 8.6 MG TABLET GT ×2 (08:18→20:49)
[2024-10-23] MEDS: FUROSEMIDE 20 MG TABLET GT (08:18)
[2024-10-23] MEDS: MULTIVITAMIN 1 TAB TABLET GT (08:18)
[2024-10-23] MEDS: ASCORBIC ACID 500 MG TABLET GT ×2 (08:18→20:46)
--- NOTE | 2024-10-23 11:22 | PC.IP ---
Noted resident has been having elevated temperature and BP low. MD ordered Clindamycin 300mg IV every 6 hours, for broad coverage. Has history of multiple issues with chronic lung/pleural effusions and history of MRSA positive at Pleurix drain site; that device removed and site evaluation done for redness and exudate. Staff continue to monitor as ordered. Resident is ordered for comfort measures with labs as needed for symptoms.
[2024-10-23] MEDS: INSULIN REGULAR, HUMAN 100 UNIT/ML VIAL SC ×2 (11:39→17:28)
[2024-10-23] MEDS: ATORVASTATIN 40 MG TABLET 80 MG GT (20:48)
--- NOTE | 2024-10-23 21:32 | PC.RT ---
hme changed at 21:08 pt tolerating vent settings no changes made at this time.
[2024-10-24] VITALS (10 sets, daily range): BP systolic 83–96; BP diastolic 43–54; PULSE 68–80; RESP 22–34; TEMP 35.9–36.3; O2SAT 92–100
[2024-10-24] MEDS: IPRATROPIUM/ALBUTEROL 3 ML AMPUL.NEB INH ×4 (00:24→17:47)
[2024-10-24] MEDS: INSULIN REGULAR, HUMAN 100 UNIT/ML VIAL SC ×2 (00:38→11:12)
[2024-10-24] MEDS: CLINDAMYCIN 300 MG 300 EA GT ×4 (00:38→17:44)
[2024-10-24] MEDS: AMIODARONE 200 MG TABLET GT (09:13)
[2024-10-24] MEDS: FUROSEMIDE 20 MG TABLET GT (09:15)
[2024-10-24] MEDS: ASCORBIC ACID 500 MG TABLET GT ×2 (09:16→21:36)
[2024-10-24] MEDS: MULTIVITAMIN 1 TAB TABLET GT (09:17)
[2024-10-24] MEDS: VIT D3 GT (09:17)
[2024-10-24] MEDS: CALCIUM GT (09:17)
[2024-10-24] MEDS: SENNOSIDES 8.6 MG TABLET GT ×2 (09:18→21:36)
[2024-10-24] MEDS: ACETAMINOPHEN 325 MG TABLET 650 MG GT (10:12)
--- NOTE | 2024-10-24 13:05 | ESPR_ITS ---
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 (7) Decubital ulcer: Status: Chronic (8) Deep venous thrombosis: Status: Chronic Qualifiers: DVT location: lower extremity Affected thrombotic vein of extremity: unspecified lower extremity proximal vein Chronicity: chronic Laterality: unspecified laterality Qualified Code(s): I82.5Y9 - Chronic embolism and thrombosis of unspecified deep veins of unspecified proximal lower extremity (9) Diastolic CHF: Status: Chronic Qualifiers: Heart failure chronicity: chronic Qualified Code(s): I50.32 - Chronic diastolic (congestive) heart failure OBJECTIVE Most recent vital signs: Last Vital Signs Temp 104.4 F H 10/27/24 17:33 Pulse 83 10/27/24 17:33 Resp 30 H 10/27/24 17:33 BP 90/54 L 10/27/24 17:33 Pulse Ox 97 10/27/24 17:33 O2 Del Method Mechanical Ventilation 10/26/24 17:23 O2 Flow Rate 97 10/25/24 05:57 FiO2 40 10/27/24 17:15 Neurological:: PVS (spontaneous eye opening but no cognizant response to simple commands) Speech:: none Answers questions:: no Respiratory:: shallow breathing Cardiovascular: irregular Abdomen: soft Extremities:: deformities Decubitus:: unchanged Tracheostomy:: to blow by Complaints:: none ASSESSMENT & PLAN Assessment: Pt bed bound with all above etilologies, chronic, and fully dependent for all care . Prognosis very poor. Family considering Hospice care and possible transfer closer to home at [place] if possible. From 06-08-24 to 06-15-24 pt was in Acute Hospital for re-accumulation of Malignant Pleural effusion and requiring drainage for comfort. Returned from acute care on 08-10-24. Current medications reviewed and continued as ongoing. VSS. No distress. Objective achievable is comfort. No distress noted. Pt gained lot of weight with fluid overload during stay in acute care. Diuresis continued for comfort. i's & O's monitored. Mild blood noted in Urine but no discomfort noted. Cleared subsequently. Objective of comfort being achieved. For two days spiking fever and some emesis controlled with medication. Possible aspiration. Symptomatic treatment effective. Fever recurred. Given empirical trial of Clindamycin for aspiration pn. Plan: Maintain all support with objective of ensuring comfort.Pt code status changed to comfort measures only and no transfers to acute care
[2024-10-24] MEDS: ATORVASTATIN 40 MG TABLET 80 MG GT (21:36)
[2024-10-25] VITALS (11 sets, daily range): BP systolic 97–116; BP diastolic 50–65; PULSE 72–90; RESP 20–33; TEMP 36.3–38.6; O2SAT 90–100
[2024-10-25] MEDS: INSULIN REGULAR, HUMAN 100 UNIT/ML VIAL SC ×3 (00:21→17:16)
[2024-10-25] MEDS: CLINDAMYCIN 300 MG 300 EA GT ×4 (00:26→17:16)
[2024-10-25] MEDS: IPRATROPIUM/ALBUTEROL 3 ML AMPUL.NEB INH ×4 (00:48→18:23)
[2024-10-25] MEDS: ACETAMINOPHEN 325 MG TABLET 650 MG GT ×2 (02:10→20:22)
[2024-10-25] MEDS: AMIODARONE 200 MG TABLET GT (08:00)
[2024-10-25] MEDS: ASCORBIC ACID 500 MG TABLET GT ×2 (08:01→20:19)
[2024-10-25] MEDS: MULTIVITAMIN 1 TAB TABLET GT (08:02)
[2024-10-25] MEDS: VIT D3 GT (08:02)
[2024-10-25] MEDS: FUROSEMIDE 20 MG TABLET GT (08:02)
[2024-10-25] MEDS: CALCIUM GT (08:02)
[2024-10-25] MEDS: SENNOSIDES 8.6 MG TABLET GT ×2 (08:03→20:19)
[2024-10-25] MEDS: ATORVASTATIN 40 MG TABLET 80 MG GT (20:19)
[2024-10-26] VITALS (11 sets, daily range): BP systolic 97–116; BP diastolic 52–60; PULSE 65–85; RESP 22–28; TEMP 36.1–36.4; O2SAT 97–99
[2024-10-26] MEDS: CLINDAMYCIN 300 MG 300 EA GT ×4 (00:37→17:33)
[2024-10-26] MEDS: INSULIN REGULAR, HUMAN 100 UNIT/ML VIAL SC ×3 (00:38→17:36)
[2024-10-26] MEDS: IPRATROPIUM/ALBUTEROL 3 ML AMPUL.NEB INH ×4 (00:46→16:47)
[2024-10-26] MEDS: AMIODARONE 200 MG TABLET GT (08:25)
[2024-10-26] MEDS: CALCIUM GT (08:26)
[2024-10-26] MEDS: VIT D3 GT (08:26)
[2024-10-26] MEDS: ASCORBIC ACID 500 MG TABLET GT ×2 (08:26→20:21)
[2024-10-26] MEDS: FUROSEMIDE 20 MG TABLET GT (08:27)
[2024-10-26] MEDS: MULTIVITAMIN 1 TAB TABLET GT (08:27)
[2024-10-26] MEDS: SENNOSIDES 8.6 MG TABLET GT ×2 (08:27→20:22)
[2024-10-26] MEDS: ATORVASTATIN 40 MG TABLET 80 MG GT (20:22)
[2024-10-27] VITALS (13 sets, daily range): BP systolic 90–125; BP diastolic 53–66; PULSE 62–95; RESP 20–34; TEMP 36.3–40.2; O2SAT 24–99
[2024-10-27] MEDS: INSULIN REGULAR, HUMAN 100 UNIT/ML VIAL SC ×2 (00:13→05:27)
[2024-10-27] MEDS: CLINDAMYCIN 300 MG 300 EA GT ×4 (00:13→17:43)
[2024-10-27] MEDS: IPRATROPIUM/ALBUTEROL 3 ML AMPUL.NEB INH ×4 (01:18→16:42)
[2024-10-27] MEDS: SENNOSIDES 8.6 MG TABLET GT ×2 (08:47→21:01)
[2024-10-27] MEDS: AMLODIPINE 10 MG TABLET GT (08:48)
[2024-10-27] MEDS: CALCIUM GT (08:48)
[2024-10-27] MEDS: MULTIVITAMIN 1 TAB TABLET GT (08:48)
[2024-10-27] MEDS: VIT D3 GT (08:48)
[2024-10-27] MEDS: AMIODARONE 200 MG TABLET GT (08:48)
[2024-10-27] MEDS: FUROSEMIDE 20 MG TABLET GT (08:48)
[2024-10-27] MEDS: ASCORBIC ACID 500 MG TABLET GT ×2 (08:48→21:01)
[2024-10-27] MEDS: ACETAMINOPHEN 325 MG TABLET 650 MG GT ×2 (16:35→22:38)
[2024-10-27] MEDS: IBUPROFEN 100 MG/5 ML ORAL.SUSP 600 MG GT (18:30)
--- NOTE | 2024-10-27 18:43 | PC.NURSE ---
Resident remains on clindamycin 300mg q6hr via gtube, GREEN BUILDING ENERGY ENGINEER reported rectal temp 104.4, cooling measures initiated, tylenol 650mg given, reaccess rectal temp @1830 100.9, Ibuprofen 30ml given, RN aware
[2024-10-27] MEDS: ATORVASTATIN 40 MG TABLET 80 MG GT (21:01)
[2024-10-27] MEDS: MAGNESIUM HYDROXIDE 30 ML ORAL SUSP ML GT (21:30)
[2024-10-28] VITALS (9 sets, daily range): BP systolic 91–104; BP diastolic 49–57; PULSE 59–88; RESP 22–28; TEMP 36–36.1; O2SAT 97–100
[2024-10-28] MEDS: CLINDAMYCIN 300 MG 300 EA GT ×4 (00:39→17:20)
[2024-10-28] MEDS: INSULIN REGULAR, HUMAN 100 UNIT/ML VIAL SC ×4 (00:39→17:20)
[2024-10-28] MEDS: IPRATROPIUM/ALBUTEROL 3 ML AMPUL.NEB INH ×4 (01:03→16:42)
[2024-10-28] MEDS: SENNOSIDES 8.6 MG TABLET GT ×2 (08:13→20:34)
[2024-10-28] MEDS: MULTIVITAMIN 1 TAB TABLET GT (08:14)
[2024-10-28] MEDS: FUROSEMIDE 20 MG TABLET GT (08:14)
[2024-10-28] MEDS: VIT D3 GT (08:14)
[2024-10-28] MEDS: CALCIUM GT (08:14)
[2024-10-28] MEDS: ASCORBIC ACID 500 MG TABLET GT ×2 (08:14→20:34)
[2024-10-28] MEDS: AMIODARONE 200 MG TABLET GT (08:14)
--- NOTE | 2024-10-28 18:27 | PC.NURSE ---
Resident continues on clindamycin 300mg per gtube q 6 hrs, VS stable , afebrile, no adverse reactions noted, bed in low position, call light within reach
[2024-10-28] MEDS: ATORVASTATIN 40 MG TABLET 80 MG GT (20:34)
[2024-10-29] VITALS (10 sets, daily range): BP systolic 94–125; BP diastolic 50–65; PULSE 66–81; RESP 20–25; TEMP 35.9–36.1; O2SAT 98–100
[2024-10-29] MEDS: INSULIN REGULAR, HUMAN 100 UNIT/ML VIAL SC ×4 (00:05→23:50)
[2024-10-29] MEDS: CLINDAMYCIN 300 MG 300 EA GT ×5 (00:05→23:40)
[2024-10-29] MEDS: IPRATROPIUM/ALBUTEROL 3 ML AMPUL.NEB INH ×4 (00:42→16:45)
[2024-10-29] MEDS: AMIODARONE 200 MG TABLET GT (08:09)
[2024-10-29] MEDS: AMLODIPINE 10 MG TABLET GT (08:11)
[2024-10-29] MEDS: CALCIUM GT (08:11)
[2024-10-29] MEDS: ASCORBIC ACID 500 MG TABLET GT ×2 (08:11→20:24)
[2024-10-29] MEDS: VIT D3 GT (08:11)
[2024-10-29] MEDS: SENNOSIDES 8.6 MG TABLET GT ×2 (08:12→20:24)
[2024-10-29] MEDS: MULTIVITAMIN 1 TAB TABLET GT (08:12)
[2024-10-29] MEDS: FUROSEMIDE 20 MG TABLET GT (08:12)
--- NOTE | 2024-10-29 18:31 | ESPR_ITS ---
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 (7) Decubital ulcer: Status: Chronic (8) Deep venous thrombosis: Status: Chronic Qualifiers: DVT location: lower extremity Affected thrombotic vein of extremity: unspecified lower extremity proximal vein Chronicity: chronic Laterality: unspecified laterality Qualified Code(s): I82.5Y9 - Chronic embolism and thrombosis of unspecified deep veins of unspecified proximal lower extremity (9) Diastolic CHF: Status: Chronic Qualifiers: Heart failure chronicity: chronic Qualified Code(s): I50.32 - Chronic diastolic (congestive) heart failure OBJECTIVE Most recent vital signs: Last Vital Signs Temp 97 F 10/29/24 17:24 Pulse 71 10/29/24 17:24 Resp 23 H 10/29/24 17:24 BP 108/59 L 10/29/24 17:24 Pulse Ox 100 10/29/24 17:24 O2 Del Method Mechanical Ventilation 10/29/24 06:00 O2 Flow Rate 97 10/25/24 05:57 FiO2 40 10/29/24 16:45 Neurological:: PVS (spontaneous eye opening but no cognizant response to simple commands) Speech:: none Answers questions:: no Respiratory:: shallow breathing Cardiovascular: irregular Abdomen: soft Extremities:: deformities Decubitus:: unchanged Tracheostomy:: to blow by Complaints:: none ASSESSMENT & PLAN Assessment: Pt bed bound with all above etilologies, chronic, and fully dependent for all care . Prognosis very poor. Family considering Hospice care and possible transfer closer to home at [place] if possible. From 06-08-24 to 06-15-24 pt was in Acute Hospital for re-accumulation of Malignant Pleural effusion and requiring drainage for comfort. Returned from acute care on 08-10-24. Current medications reviewed and continued as ongoing. VSS. No distress. Objective achievable is comfort. No distress noted. Pt gained lot of weight with fluid overload during stay in acute care. Diuresis continued for comfort. i's & O's monitored. Mild blood noted in Urine but no discomfort noted. Cleared subsequently. Objective of comfort being achieved. For two days spiking fever and some emesis controlled with medication. Possible aspiration. Symptomatic treatment effective. Fever recurred. Given empirical trial of Clindamycin for aspiration pn. Plan: Maintain all support with objective of ensuring comfort.Pt code status changed to comfort measures only and no transfers to acute care
[2024-10-29] MEDS: ATORVASTATIN 40 MG TABLET 80 MG GT (20:24)
[2024-10-30] VITALS (9 sets, daily range): BP systolic 99–106; BP diastolic 53–56; PULSE 72–92; RESP 20–34; TEMP 36–36.3; O2SAT 98–100
[2024-10-30] MEDS: IPRATROPIUM/ALBUTEROL 3 ML AMPUL.NEB INH ×4 (00:59→16:23)
[2024-10-30] MEDS: INSULIN REGULAR, HUMAN 100 UNIT/ML VIAL SC ×3 (05:36→17:38)
--- NOTE | 2024-10-30 06:37 | PC.NURSE ---
last dose of atb given for respiration PNA with no adverse reaction noted. will cobntibu
--- NOTE | 2024-10-30 06:42 | PC.NURSE ---
last dose of atb given for respiration PNA with no adverse reaction noted. will continue to monitor.
[2024-10-30] MEDS: ACETAMINOPHEN 325 MG TABLET 650 MG GT ×2 (08:12→16:45)
[2024-10-30] MEDS: AMIODARONE 200 MG TABLET GT (08:12)
[2024-10-30] MEDS: ASCORBIC ACID 500 MG TABLET GT ×2 (08:13→20:14)
[2024-10-30] MEDS: CALCIUM GT (08:14)
[2024-10-30] MEDS: VIT D3 GT (08:14)
[2024-10-30] MEDS: FUROSEMIDE 20 MG TABLET GT (08:14)
[2024-10-30] MEDS: SENNOSIDES 8.6 MG TABLET GT ×2 (08:15→20:15)
[2024-10-30] MEDS: MULTIVITAMIN 1 TAB TABLET GT (08:15)
[2024-10-30] MEDS: ATORVASTATIN 40 MG TABLET 80 MG GT (20:15)
[2024-10-31] VITALS (10 sets, daily range): BP systolic 101–112; BP diastolic 53–60; PULSE 64–83; RESP 20–34; TEMP 35.9–36.8; O2SAT 97–100
[2024-10-31] MEDS: INSULIN REGULAR, HUMAN 100 UNIT/ML VIAL SC ×5 (00:16→23:48)
[2024-10-31] MEDS: IPRATROPIUM/ALBUTEROL 3 ML AMPUL.NEB INH ×4 (00:54→19:19)
[2024-10-31] MEDS: AMIODARONE 200 MG TABLET GT (09:20)
[2024-10-31] MEDS: AMLODIPINE 10 MG TABLET GT (09:21)
[2024-10-31] MEDS: ASCORBIC ACID 500 MG TABLET GT ×2 (09:22→20:29)
[2024-10-31] MEDS: CALCIUM GT (09:23)
[2024-10-31] MEDS: MULTIVITAMIN 1 TAB TABLET GT (09:23)
[2024-10-31] MEDS: VIT D3 GT (09:23)
[2024-10-31] MEDS: FUROSEMIDE 20 MG TABLET GT (09:23)
[2024-10-31] MEDS: SENNOSIDES 8.6 MG TABLET GT ×2 (09:24→20:30)
[2024-10-31] MEDS: ATORVASTATIN 40 MG TABLET 80 MG GT (20:30)
[2024-11-01] VITALS (10 sets, daily range): BP systolic 105–114; BP diastolic 56–62; PULSE 66–79; RESP 21–29; TEMP 36.1–36.5; O2SAT 98–100
[2024-11-01] MEDS: IPRATROPIUM/ALBUTEROL 3 ML AMPUL.NEB INH ×4 (00:26→18:40)
[2024-11-01] MEDS: INSULIN REGULAR, HUMAN 100 UNIT/ML VIAL SC ×3 (05:21→17:06)
[2024-11-01] MEDS: AMIODARONE 200 MG TABLET GT (08:34)
[2024-11-01] MEDS: ASCORBIC ACID 500 MG TABLET GT ×2 (08:35→20:48)
[2024-11-01] MEDS: FUROSEMIDE 20 MG TABLET GT (08:36)
[2024-11-01] MEDS: CALCIUM GT (08:36)
[2024-11-01] MEDS: MULTIVITAMIN 1 TAB TABLET GT (08:36)
[2024-11-01] MEDS: VIT D3 GT (08:36)
[2024-11-01] MEDS: SENNOSIDES 8.6 MG TABLET GT ×2 (08:36→20:48)
[2024-11-01] MEDS: ATORVASTATIN 40 MG TABLET 80 MG GT (20:48)
[2024-11-02] VITALS (10 sets, daily range): BP systolic 103–111; BP diastolic 51–61; PULSE 65–84; RESP 18–28; TEMP 36.1–36.3; O2SAT 96–99
[2024-11-02] MEDS: IPRATROPIUM/ALBUTEROL 3 ML AMPUL.NEB INH ×4 (00:40→18:59)
[2024-11-02] MEDS: INSULIN REGULAR, HUMAN 100 UNIT/ML VIAL SC ×3 (05:31→23:35)
[2024-11-02] MEDS: AMIODARONE 200 MG TABLET GT (08:35)
[2024-11-02] MEDS: FUROSEMIDE 20 MG TABLET GT (08:37)
[2024-11-02] MEDS: CALCIUM GT (08:38)
[2024-11-02] MEDS: VIT D3 GT (08:38)
[2024-11-02] MEDS: ASCORBIC ACID 500 MG TABLET GT ×2 (08:38→20:44)
[2024-11-02] MEDS: MULTIVITAMIN 1 TAB TABLET GT (08:39)
[2024-11-02] MEDS: SENNOSIDES 8.6 MG TABLET GT ×2 (08:39→20:45)
--- NOTE | 2024-11-02 14:11 | PC.SS ---
Resident remains on ventilator with trach in place and GT for medication and nutrition. Resident is represented by her son, she is unable to make needs known or make decisions for self due to absence of speech. Resident does not have POA in place, RP aware this service is provided in facility, resident is unable to participate in the process. Resident will remain in current care and will continue to have all subacute care needs met by staff. This SSD will make daily contact with resident and will monitor for changes in mood and behavior.
--- NOTE | 2024-11-02 18:04 | ESPR_ITS ---
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 (7) Decubital ulcer: Status: Chronic (8) Deep venous thrombosis: Status: Chronic Qualifiers: DVT location: lower extremity Affected thrombotic vein of extremity: unspecified lower extremity proximal vein Chronicity: chronic Laterality: unspecified laterality Qualified Code(s): I82.5Y9 - Chronic embolism and thrombosis of unspecified deep veins of unspecified proximal lower extremity (9) Diastolic CHF: Status: Chronic Qualifiers: Heart failure chronicity: chronic Qualified Code(s): I50.32 - Chronic diastolic (congestive) heart failure OBJECTIVE Most recent vital signs: Last Vital Signs Temp 97.3 F 11/02/24 16:51 Pulse 81 11/02/24 16:51 Resp 23 H 11/02/24 16:51 BP 110/61 11/02/24 16:51 Pulse Ox 98 11/02/24 16:51 O2 Del Method Mechanical Ventilation 11/02/24 16:51 O2 Flow Rate 97 10/25/24 05:57 FiO2 40 11/02/24 13:03 Neurological:: PVS (spontaneous eye opening but no cognizant response to simple commands) Speech:: none Answers questions:: no Respiratory:: shallow breathing Cardiovascular: irregular Abdomen: soft Extremities:: deformities Decubitus:: unchanged Tracheostomy:: to blow by Complaints:: none ASSESSMENT & PLAN Assessment: Pt bed bound with all above etilologies, chronic, and fully dependent for all care . Prognosis very poor. Family considering Hospice care and possible transfer closer to home at [place] if possible. From 06-08-24 to 06-15-24 pt was in Acute Hospital for re-accumulation of Malignant Pleural effusion and requiring drainage for comfort. Returned from acute care on 08-10-24. Current medications reviewed and continued as ongoing. VSS. No distress. Objective achievable is comfort. No distress noted. Pt gained lot of weight with fluid overload during stay in acute care. Diuresis continued for comfort. i's & O's monitored. Mild blood noted in Urine but no discomfort noted. Cleared subsequently. Objective of comfort being achieved. For two days spiking fever and some emesis controlled with medication. Possible aspiration. Symptomatic treatment effective. Fever recurred. Given empirical trial of Clindamycin for aspiration pn. Pt now settled down better and is comfortable. Plan: Maintain all support with objective of ensuring comfort.Pt code status changed to comfort measures only and no transfers to acute care
[2024-11-02] MEDS: ATORVASTATIN 40 MG TABLET 80 MG GT (20:44)
[2024-11-02] MEDS: ACETAMINOPHEN 325 MG TABLET 650 MG GT (21:40)
[2024-11-03] VITALS (11 sets, daily range): BP systolic 96–124; BP diastolic 52–69; PULSE 54–81; RESP 23–41; TEMP 36.5–38.1; O2SAT 96–99
[2024-11-03] MEDS: IPRATROPIUM/ALBUTEROL 3 ML AMPUL.NEB INH ×4 (00:33→18:45)
[2024-11-03] MEDS: INSULIN REGULAR, HUMAN 100 UNIT/ML VIAL SC ×4 (05:33→23:25)
[2024-11-03] MEDS: FUROSEMIDE 20 MG TABLET GT (08:05)
[2024-11-03] MEDS: VIT D3 GT (08:05)
[2024-11-03] MEDS: SENNOSIDES 8.6 MG TABLET GT ×2 (08:05→20:34)
[2024-11-03] MEDS: ACETAMINOPHEN 325 MG TABLET 650 MG GT ×2 (08:05→20:35)
[2024-11-03] MEDS: MULTIVITAMIN 1 TAB TABLET GT (08:05)
[2024-11-03] MEDS: CALCIUM GT (08:05)
[2024-11-03] MEDS: AMLODIPINE 10 MG TABLET GT (08:05)
[2024-11-03] MEDS: ASCORBIC ACID 500 MG TABLET GT ×2 (08:05→20:34)
[2024-11-03] MEDS: AMIODARONE 200 MG TABLET GT (08:05)
[2024-11-03] MEDS: IBUPROFEN 100 MG/5 ML ORAL.SUSP 600 MG GT (11:10)
[2024-11-03] MEDS: ATORVASTATIN 40 MG TABLET 80 MG GT (20:34)
[2024-11-04] VITALS (10 sets, daily range): BP systolic 90–109; BP diastolic 49–56; PULSE 59–80; RESP 19–43; TEMP 35.9–36.1; O2SAT 99–100
[2024-11-04] MEDS: IPRATROPIUM/ALBUTEROL 3 ML AMPUL.NEB INH ×4 (00:58→19:17)
[2024-11-04] MEDS: INSULIN REGULAR, HUMAN 100 UNIT/ML VIAL SC ×3 (05:33→17:39)
[2024-11-04] MEDS: AMIODARONE 200 MG TABLET GT (08:24)
[2024-11-04] MEDS: CALCIUM GT (08:25)
[2024-11-04] MEDS: ASCORBIC ACID 500 MG TABLET GT ×2 (08:25→20:58)
[2024-11-04] MEDS: VIT D3 GT (08:25)
[2024-11-04] MEDS: MULTIVITAMIN 1 TAB TABLET GT (08:26)
[2024-11-04] MEDS: FUROSEMIDE 20 MG TABLET GT (08:26)
[2024-11-04] MEDS: SENNOSIDES 8.6 MG TABLET GT ×2 (08:26→20:58)
[2024-11-04] MEDS: ACETAMINOPHEN 325 MG TABLET 650 MG GT ×2 (15:00→21:00)
[2024-11-04] MEDS: ATORVASTATIN 40 MG TABLET 80 MG GT (20:58)
[2024-11-04] MEDS: MAGNESIUM HYDROXIDE 30 ML ORAL SUSP ML GT (21:05)
[2024-11-05] VITALS (7 sets, daily range): BP systolic 100–111; BP diastolic 51–56; PULSE 56–70; RESP 18–26; TEMP 36.1; O2SAT 98–99
[2024-11-05] MEDS: IPRATROPIUM/ALBUTEROL 3 ML AMPUL.NEB INH ×4 (00:54→18:29)
[2024-11-05] MEDS: ACETAMINOPHEN 325 MG TABLET 650 MG GT ×2 (03:06→18:10)
[2024-11-05] MEDS: INSULIN REGULAR, HUMAN 100 UNIT/ML VIAL SC ×2 (05:39→17:25)
[2024-11-05] MEDS: MULTIVITAMIN 1 TAB TABLET GT (08:13)
[2024-11-05] MEDS: SENNOSIDES 8.6 MG TABLET GT ×2 (08:13→21:17)
[2024-11-05] MEDS: VIT D3 GT (08:13)
[2024-11-05] MEDS: CALCIUM GT (08:13)
[2024-11-05] MEDS: FUROSEMIDE 20 MG TABLET GT (08:13)
[2024-11-05] MEDS: ASCORBIC ACID 500 MG TABLET GT ×2 (08:14→21:15)
[2024-11-05] MEDS: BISACODYL 10 MG SUPP.RECT PR (17:00)
[2024-11-05] MEDS: ATORVASTATIN 40 MG TABLET 80 MG GT (21:17)
[2024-11-06] VITALS (9 sets, daily range): BP systolic 90–110; BP diastolic 46–53; PULSE 52–79; RESP 18–33; TEMP 36–36.9; O2SAT 98–100
[2024-11-06] MEDS: INSULIN REGULAR, HUMAN 100 UNIT/ML VIAL SC ×4 (00:17→17:43)
[2024-11-06] MEDS: IPRATROPIUM/ALBUTEROL 3 ML AMPUL.NEB INH ×4 (00:31→18:44)
[2024-11-06] MEDS: SENNOSIDES 8.6 MG TABLET GT ×2 (08:12→20:20)
[2024-11-06] MEDS: FUROSEMIDE 20 MG TABLET GT (08:13)
[2024-11-06] MEDS: CALCIUM GT (08:13)
[2024-11-06] MEDS: ASCORBIC ACID 500 MG TABLET GT ×2 (08:13→20:20)
[2024-11-06] MEDS: VIT D3 GT (08:13)
[2024-11-06] MEDS: AMIODARONE 200 MG TABLET GT (08:13)
[2024-11-06] MEDS: MULTIVITAMIN 1 TAB TABLET GT (08:13)
[2024-11-06] MEDS: ATORVASTATIN 40 MG TABLET 80 MG GT (20:20)
--- NOTE | 2024-11-06 20:58 | PD.SAPROG ---
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 (7) Decubital ulcer: Status: Chronic (8) Deep venous thrombosis: Status: Chronic Qualifiers: DVT location: lower extremity Affected thrombotic vein of extremity: unspecified lower extremity proximal vein Chronicity: chronic Laterality: unspecified laterality Qualified Code(s): I82.5Y9 - Chronic embolism and thrombosis of unspecified deep veins of unspecified proximal lower extremity (9) Diastolic CHF: Status: Chronic Qualifiers: Heart failure chronicity: chronic Qualified Code(s): I50.32 - Chronic diastolic (congestive) heart failure OBJECTIVE Most recent vital signs: Last Vital Signs Temp 96.8 F 11/06/24 17:26 Pulse 66 11/06/24 17:26 Resp 24 H 11/06/24 17:26 BP 98/47 L 11/06/24 17:26 Pulse Ox 98 11/06/24 17:26 O2 Del Method Mechanical Ventilation 11/04/24 17:50 O2 Flow Rate 97 10/25/24 05:57 FiO2 40 11/06/24 12:50 Neurological:: PVS (spontaneous eye opening but no cognizant response to simple commands) Speech:: none Answers questions:: no Respiratory:: shallow breathing Cardiovascular: irregular Abdomen: soft Extremities:: deformities Decubitus:: unchanged Tracheostomy:: to blow by Complaints:: none ASSESSMENT & PLAN Assessment: Pt bed bound with all above etilologies, chronic, and fully dependent for all care . Prognosis very poor. Family considering Hospice care and possible transfer closer to home at [place] if possible. From 06-08-24 to 06-15-24 pt was in Acute Hospital for re-accumulation of Malignant Pleural effusion and requiring drainage for comfort. Returned from acute care on 08-10-24. Current medications reviewed and continued as ongoing. VSS. No distress. Objective achievable is comfort. No distress noted. Pt gained lot of weight with fluid overload during stay in acute care. Diuresis continued for comfort. i's & O's monitored. Mild blood noted in Urine but no discomfort noted. Cleared subsequently. Objective of comfort being achieved. For two days spiking fever and some emesis controlled with medication. Possible aspiration. Symptomatic treatment effective. Fever recurred. Given empirical trial of Clindamycin for aspiration pn. Pt now settled down better and is comfortable. Plan: Maintain all support with objective of ensuring comfort.Pt code status changed to comfort measures only and no transfers to acute care
[2024-11-07] VITALS (10 sets, daily range): BP systolic 104–122; BP diastolic 52–75; PULSE 59–83; RESP 18–29; TEMP 35.9–36.1; O2SAT 97–100
[2024-11-07] MEDS: INSULIN REGULAR, HUMAN 100 UNIT/ML VIAL SC ×5 (00:53→23:20)
[2024-11-07] MEDS: IPRATROPIUM/ALBUTEROL 3 ML AMPUL.NEB INH ×4 (02:16→18:47)
[2024-11-07] MEDS: AMIODARONE 200 MG TABLET GT (08:43)
[2024-11-07] MEDS: AMLODIPINE 10 MG TABLET GT (08:44)
[2024-11-07] MEDS: ASCORBIC ACID 500 MG TABLET GT ×2 (08:44→20:20)
[2024-11-07] MEDS: SENNOSIDES 8.6 MG TABLET GT ×2 (08:47→20:20)
[2024-11-07] MEDS: MULTIVITAMIN 1 TAB TABLET GT (08:47)
[2024-11-07] MEDS: FUROSEMIDE 20 MG TABLET GT (08:47)
[2024-11-07] MEDS: VIT D3 GT (08:47)
[2024-11-07] MEDS: CALCIUM GT (08:47)
[2024-11-07] MEDS: ACETAMINOPHEN 325 MG TABLET 650 MG GT (20:20)
[2024-11-07] MEDS: ATORVASTATIN 40 MG TABLET 80 MG GT (20:20)
[2024-11-08] VITALS (9 sets, daily range): BP systolic 107–120; BP diastolic 58–65; PULSE 61–82; RESP 18–35; TEMP 36.2–36.4; O2SAT 99–100
[2024-11-08] MEDS: IPRATROPIUM/ALBUTEROL 3 ML AMPUL.NEB INH ×4 (00:39→18:56)
[2024-11-08] MEDS: INSULIN REGULAR, HUMAN 100 UNIT/ML VIAL SC ×3 (05:32→17:14)
[2024-11-08] MEDS: AMIODARONE 200 MG TABLET GT (08:01)
[2024-11-08] MEDS: AMLODIPINE 10 MG TABLET GT (08:02)
[2024-11-08] MEDS: CALCIUM GT (08:03)
[2024-11-08] MEDS: VIT D3 GT (08:03)
[2024-11-08] MEDS: ASCORBIC ACID 500 MG TABLET GT ×2 (08:03→20:06)
[2024-11-08] MEDS: FUROSEMIDE 20 MG TABLET GT (08:04)
[2024-11-08] MEDS: MULTIVITAMIN 1 TAB TABLET GT (08:04)
[2024-11-08] MEDS: SENNOSIDES 8.6 MG TABLET GT ×2 (08:05→20:07)
[2024-11-08] MEDS: ACETAMINOPHEN 325 MG TABLET 650 MG GT (20:06)
[2024-11-08] MEDS: ATORVASTATIN 40 MG TABLET 80 MG GT (20:07)
[2024-11-09] VITALS (10 sets, daily range): BP systolic 106–116; BP diastolic 56–69; PULSE 61–73; RESP 20–28; TEMP 36.1–36.2; O2SAT 98–100
[2024-11-09] MEDS: IPRATROPIUM/ALBUTEROL 3 ML AMPUL.NEB INH ×4 (01:17→18:41)
[2024-11-09] MEDS: INSULIN REGULAR, HUMAN 100 UNIT/ML VIAL SC ×2 (05:43→12:20)
[2024-11-09] MEDS: AMIODARONE 200 MG TABLET GT (08:09)
[2024-11-09] MEDS: ASCORBIC ACID 500 MG TABLET GT ×2 (08:11→20:34)
[2024-11-09] MEDS: MULTIVITAMIN 1 TAB TABLET GT (08:12)
[2024-11-09] MEDS: CALCIUM GT (08:12)
[2024-11-09] MEDS: VIT D3 GT (08:12)
[2024-11-09] MEDS: FUROSEMIDE 20 MG TABLET GT (08:12)
[2024-11-09] MEDS: SENNOSIDES 8.6 MG TABLET GT ×2 (08:12→20:35)
--- NOTE | 2024-11-09 16:21 | PC.SS ---
Resident remains on vent with trach in place and GT for medication and nutrition. She is awake unable to make needs known, her son Rashel is her software support representative. She does not have POA in place and unable to participate in this process. Resident will remain in current care as she has no changes in care or condition, she will continue to have all subacute care needs met by staff. This SSD will continue to make daily contact with resident and will monitor for changes in mood and behavior.
[2024-11-09] MEDS: ATORVASTATIN 40 MG TABLET 80 MG GT (20:34)
[2024-11-09] MEDS: ACETAMINOPHEN 325 MG TABLET 650 MG GT (20:35)
[2024-11-10] VITALS (9 sets, daily range): BP systolic 99–112; BP diastolic 50–65; PULSE 57–78; RESP 19–30; TEMP 35.9–36.6; O2SAT 97–100
[2024-11-10] MEDS: INSULIN REGULAR, HUMAN 100 UNIT/ML VIAL SC ×3 (00:26→17:18)
[2024-11-10] MEDS: IPRATROPIUM/ALBUTEROL 3 ML AMPUL.NEB INH ×4 (00:40→19:25)
[2024-11-10] MEDS: FUROSEMIDE 20 MG TABLET GT (09:07)
[2024-11-10] MEDS: MULTIVITAMIN 1 TAB TABLET GT (09:07)
[2024-11-10] MEDS: CALCIUM GT (09:07)
[2024-11-10] MEDS: ASCORBIC ACID 500 MG TABLET GT ×2 (09:07→20:37)
[2024-11-10] MEDS: SENNOSIDES 8.6 MG TABLET GT ×2 (09:07→20:38)
[2024-11-10] MEDS: VIT D3 GT (09:07)
[2024-11-10] MEDS: ATORVASTATIN 40 MG TABLET 80 MG GT (20:38)
[2024-11-10] MEDS: ACETAMINOPHEN 325 MG TABLET 650 MG GT (20:40)
--- NOTE | 2024-11-10 21:32 | PD.SAPROG ---
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 (7) Decubital ulcer: Status: Chronic (8) Deep venous thrombosis: Status: Chronic Qualifiers: DVT location: lower extremity Affected thrombotic vein of extremity: unspecified lower extremity proximal vein Chronicity: chronic Laterality: unspecified laterality Qualified Code(s): I82.5Y9 - Chronic embolism and thrombosis of unspecified deep veins of unspecified proximal lower extremity (9) Diastolic CHF: Status: Chronic Qualifiers: Heart failure chronicity: chronic Qualified Code(s): I50.32 - Chronic diastolic (congestive) heart failure OBJECTIVE Most recent vital signs: Last Vital Signs Temp 97.4 F 11/10/24 17:06 Pulse 75 11/10/24 19:26 Resp 28 H 11/10/24 19:26 BP 99/65 11/10/24 17:06 Pulse Ox 98 11/10/24 19:26 O2 Del Method Mechanical Ventilation 11/09/24 17:34 O2 Flow Rate 97 10/25/24 05:57 FiO2 40 11/10/24 19:26 Neurological:: PVS (spontaneous eye opening but no cognizant response to simple commands) Speech:: none Answers questions:: no Respiratory:: shallow breathing Cardiovascular: irregular Abdomen: soft Extremities:: deformities Decubitus:: unchanged Tracheostomy:: to blow by Complaints:: none ASSESSMENT & PLAN Assessment: Pt bed bound with all above etilologies, chronic, and fully dependent for all care . Prognosis very poor. Family considering Hospice care and possible transfer closer to home at [place] if possible. From 06-08-24 to 06-15-24 pt was in Acute Hospital for re-accumulation of Malignant Pleural effusion and requiring drainage for comfort. Returned from acute care on 08-10-24. Current medications reviewed and continued as ongoing. VSS. No distress. Objective achievable is comfort. No distress noted. Pt gained lot of weight with fluid overload during stay in acute care. Diuresis continued for comfort. i's & O's monitored. Mild blood noted in Urine but no discomfort noted. Cleared subsequently. Objective of comfort being achieved. For two days spiking fever and some emesis controlled with medication. Possible aspiration. Symptomatic treatment effective. Fever recurred. Given empirical trial of Clindamycin for aspiration pn. Pt now settled down better and is comfortable. Objective of no pain being achieved Plan: Maintain all support with objective of ensuring comfort.Pt code status changed to comfort measures only and no transfers to acute care
[2024-11-11] VITALS (11 sets, daily range): BP systolic 102–116; BP diastolic 54–61; PULSE 56–74; RESP 18–32; TEMP 35.9–36.4; O2SAT 97–99
[2024-11-11] MEDS: IPRATROPIUM/ALBUTEROL 3 ML AMPUL.NEB INH ×4 (00:07→19:41)
[2024-11-11] MEDS: INSULIN REGULAR, HUMAN 100 UNIT/ML VIAL SC ×4 (05:24→23:45)
[2024-11-11] MEDS: SENNOSIDES 8.6 MG TABLET GT ×2 (08:18→20:54)
[2024-11-11] MEDS: ASCORBIC ACID 500 MG TABLET GT ×2 (08:18→20:53)
[2024-11-11] MEDS: MULTIVITAMIN 1 TAB TABLET GT (08:18)
[2024-11-11] MEDS: VIT D3 GT (08:18)
[2024-11-11] MEDS: CALCIUM GT (08:18)
[2024-11-11] MEDS: FUROSEMIDE 20 MG TABLET GT (08:18)
[2024-11-11] MEDS: AMIODARONE 200 MG TABLET GT (08:19)
[2024-11-11] MEDS: ATORVASTATIN 40 MG TABLET 80 MG GT (20:54)
[2024-11-11] MEDS: ACETAMINOPHEN 325 MG TABLET 650 MG GT (20:55)
[2024-11-12] VITALS (10 sets, daily range): BP systolic 109–128; BP diastolic 54–65; PULSE 60–77; RESP 20–26; TEMP 36.1–36.5; O2SAT 98–99
[2024-11-12] MEDS: IPRATROPIUM/ALBUTEROL 3 ML AMPUL.NEB INH ×4 (01:48→18:59)
[2024-11-12] MEDS: INSULIN REGULAR, HUMAN 100 UNIT/ML VIAL SC ×3 (05:24→17:13)
[2024-11-12] MEDS: AMIODARONE 200 MG TABLET GT (08:36)
[2024-11-12] MEDS: AMLODIPINE 10 MG TABLET GT (08:37)
[2024-11-12] MEDS: ASCORBIC ACID 500 MG TABLET GT ×2 (08:38→20:41)
[2024-11-12] MEDS: CALCIUM GT (08:38)
[2024-11-12] MEDS: VIT D3 GT (08:38)
[2024-11-12] MEDS: FUROSEMIDE 20 MG TABLET GT (08:39)
[2024-11-12] MEDS: MULTIVITAMIN 1 TAB TABLET GT (08:39)
[2024-11-12] MEDS: SENNOSIDES 8.6 MG TABLET GT ×2 (08:39→20:41)
[2024-11-12] MEDS: ACETAMINOPHEN 325 MG TABLET 650 MG GT (12:14)
[2024-11-12] MEDS: ATORVASTATIN 40 MG TABLET 80 MG GT (20:41)
[2024-11-13] VITALS (10 sets, daily range): BP systolic 110–122; BP diastolic 55–62; PULSE 63–71; RESP 18–33; TEMP 36–36.4; O2SAT 97–100
[2024-11-13] MEDS: IPRATROPIUM/ALBUTEROL 3 ML AMPUL.NEB INH ×4 (00:40→19:34)
[2024-11-13] MEDS: INSULIN REGULAR, HUMAN 100 UNIT/ML VIAL SC ×3 (05:30→23:22)
[2024-11-13] MEDS: AMLODIPINE 10 MG TABLET GT (08:39)
[2024-11-13] MEDS: AMIODARONE 200 MG TABLET GT (08:39)
[2024-11-13] MEDS: CALCIUM GT (08:40)
[2024-11-13] MEDS: ASCORBIC ACID 500 MG TABLET GT ×2 (08:40→20:48)
[2024-11-13] MEDS: VIT D3 GT (08:40)
[2024-11-13] MEDS: SENNOSIDES 8.6 MG TABLET GT ×2 (08:41→20:48)
[2024-11-13] MEDS: MULTIVITAMIN 1 TAB TABLET GT (08:41)
[2024-11-13] MEDS: FUROSEMIDE 20 MG TABLET GT (08:41)
[2024-11-13] MEDS: ATORVASTATIN 40 MG TABLET 80 MG GT (20:48)
[2024-11-14] VITALS (10 sets, daily range): BP systolic 99–115; BP diastolic 49–62; PULSE 58–73; RESP 18–27; TEMP 36–36.2; O2SAT 98–99
[2024-11-14] MEDS: IPRATROPIUM/ALBUTEROL 3 ML AMPUL.NEB INH ×4 (00:24→19:12)
[2024-11-14] MEDS: INSULIN REGULAR, HUMAN 100 UNIT/ML VIAL SC ×4 (05:19→23:24)
[2024-11-14] MEDS: AMIODARONE 200 MG TABLET GT (08:51)
[2024-11-14] MEDS: FUROSEMIDE 20 MG TABLET GT (08:52)
[2024-11-14] MEDS: AMLODIPINE 10 MG TABLET GT (08:52)
[2024-11-14] MEDS: MULTIVITAMIN 1 TAB TABLET GT (08:52)
[2024-11-14] MEDS: CALCIUM GT (08:52)
[2024-11-14] MEDS: VIT D3 GT (08:52)
[2024-11-14] MEDS: ASCORBIC ACID 500 MG TABLET GT ×2 (08:52→20:52)
[2024-11-14] MEDS: SENNOSIDES 8.6 MG TABLET GT ×2 (08:52→20:53)
[2024-11-14] MEDS: ATORVASTATIN 40 MG TABLET 80 MG GT (20:53)
[2024-11-14] MEDS: ACETAMINOPHEN 325 MG TABLET 650 MG GT (20:54)
--- NOTE | 2024-11-14 22:32 | PD.SAPROG ---
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 (7) Decubital ulcer: Status: Chronic (8) Deep venous thrombosis: Status: Chronic Qualifiers: DVT location: lower extremity Affected thrombotic vein of extremity: unspecified lower extremity proximal vein Chronicity: chronic Laterality: unspecified laterality Qualified Code(s): I82.5Y9 - Chronic embolism and thrombosis of unspecified deep veins of unspecified proximal lower extremity (9) Diastolic CHF: Status: Chronic Qualifiers: Heart failure chronicity: chronic Qualified Code(s): I50.32 - Chronic diastolic (congestive) heart failure OBJECTIVE Most recent vital signs: Last Vital Signs Temp 97.2 F 11/14/24 17:30 Pulse 67 11/14/24 19:12 Resp 27 H 11/14/24 19:12 BP 110/62 11/14/24 17:30 Pulse Ox 99 11/14/24 19:12 O2 Del Method Mechanical Ventilation 11/14/24 17:30 O2 Flow Rate 97 10/25/24 05:57 FiO2 40 11/14/24 19:12 Neurological:: PVS (spontaneous eye opening but no cognizant response to simple commands) Speech:: none Answers questions:: no Respiratory:: shallow breathing Cardiovascular: irregular Abdomen: soft Extremities:: deformities Decubitus:: unchanged Tracheostomy:: to blow by Complaints:: none ASSESSMENT & PLAN Assessment: Pt bed bound with all above etilologies, chronic, and fully dependent for all care . Prognosis very poor. Family considering Hospice care and possible transfer closer to home at [place] if possible. From 06-08-24 to 06-15-24 pt was in Acute Hospital for re-accumulation of Malignant Pleural effusion and requiring drainage for comfort. Returned from acute care on 08-10-24. Current medications reviewed and continued as ongoing. VSS. No distress. Objective achievable is comfort. No distress noted. Pt gained lot of weight with fluid overload during stay in acute care. Diuresis continued for comfort. i's & O's monitored. Mild blood noted in Urine but no discomfort noted. Cleared subsequently. Objective of comfort being achieved. For two days spiking fever and some emesis controlled with medication. Possible aspiration. Symptomatic treatment effective. Fever recurred. Given empirical trial of Clindamycin for aspiration pn. Pt now settled down better and is comfortable. Objective of no pain being achieved Plan: Maintain all support with objective of ensuring comfort.Pt code status changed to comfort measures only and no transfers to acute care
[2024-11-15] VITALS (10 sets, daily range): BP systolic 102–121; BP diastolic 52–60; PULSE 54–69; RESP 20–33; TEMP 36.2–36.6; O2SAT 96–99
[2024-11-15] MEDS: IPRATROPIUM/ALBUTEROL 3 ML AMPUL.NEB INH ×3 (00:11→19:19)
[2024-11-15] MEDS: INSULIN REGULAR, HUMAN 100 UNIT/ML VIAL SC ×3 (05:56→17:18)
[2024-11-15] MEDS: AMIODARONE 200 MG TABLET GT (09:25)
[2024-11-15] MEDS: AMLODIPINE 10 MG TABLET GT (09:26)
[2024-11-15] MEDS: ASCORBIC ACID 500 MG TABLET GT ×2 (09:26→20:15)
[2024-11-15] MEDS: VIT D3 GT (09:27)
[2024-11-15] MEDS: CALCIUM GT (09:27)
[2024-11-15] MEDS: FUROSEMIDE 20 MG TABLET GT (09:27)
[2024-11-15] MEDS: MULTIVITAMIN 1 TAB TABLET GT (09:27)
[2024-11-15] MEDS: SENNOSIDES 8.6 MG TABLET GT ×2 (09:27→20:15)
--- NOTE | 2024-11-15 10:18 | PC.SS ---
Resident remains in current care on blow by with trach in place and GT for medication and nutrition. Resident is unable to make needs known, her son Rashel is her decision maker. Resident does not have POA in place nor is she able to participate in this process. Resident will continue to have all subacute care needs met by staff and will continue to have daily room visits.
[2024-11-15] MEDS: ATORVASTATIN 40 MG TABLET 80 MG GT (20:15)
[2024-11-16] VITALS (10 sets, daily range): BP systolic 106–125; BP diastolic 53–60; PULSE 60–78; RESP 21–29; TEMP 36.1–36.3; O2SAT 96–100
[2024-11-16] MEDS: IPRATROPIUM/ALBUTEROL 3 ML AMPUL.NEB INH ×4 (00:05→18:06)
[2024-11-16] MEDS: INSULIN REGULAR, HUMAN 100 UNIT/ML VIAL SC ×4 (00:45→17:59)
[2024-11-16] MEDS: AMIODARONE 200 MG TABLET GT (08:37)
[2024-11-16] MEDS: SENNOSIDES 8.6 MG TABLET GT ×2 (08:38→20:49)
[2024-11-16] MEDS: CALCIUM GT (08:38)
[2024-11-16] MEDS: AMLODIPINE 10 MG TABLET GT (08:38)
[2024-11-16] MEDS: FUROSEMIDE 20 MG TABLET GT (08:38)
[2024-11-16] MEDS: VIT D3 GT (08:38)
[2024-11-16] MEDS: MAGNESIUM HYDROXIDE 30 ML ORAL SUSP ML GT (08:38)
[2024-11-16] MEDS: MULTIVITAMIN 1 TAB TABLET GT (08:38)
[2024-11-16] MEDS: ASCORBIC ACID 500 MG TABLET GT ×2 (08:38→20:49)
[2024-11-16] MEDS: ATORVASTATIN 40 MG TABLET 80 MG GT (20:49)
[2024-11-16] MEDS: BISACODYL 10 MG SUPP.RECT PR (22:00)
[2024-11-17] VITALS (10 sets, daily range): BP systolic 103–121; BP diastolic 53–77; PULSE 59–86; RESP 18–28; TEMP 36.3–36.9; O2SAT 87–99
[2024-11-17] MEDS: INSULIN REGULAR, HUMAN 100 UNIT/ML VIAL SC ×2 (00:15→17:05)
[2024-11-17] MEDS: IPRATROPIUM/ALBUTEROL 3 ML AMPUL.NEB INH ×4 (01:09→18:49)
[2024-11-17] MEDS: AMIODARONE 200 MG TABLET GT (08:33)
[2024-11-17] MEDS: AMLODIPINE 10 MG TABLET GT (08:34)
[2024-11-17] MEDS: ASCORBIC ACID 500 MG TABLET GT ×2 (08:34→20:29)
[2024-11-17] MEDS: VIT D3 GT (08:37)
[2024-11-17] MEDS: CALCIUM GT (08:37)
[2024-11-17] MEDS: SENNOSIDES 8.6 MG TABLET GT ×2 (08:38→20:30)
[2024-11-17] MEDS: MULTIVITAMIN 1 TAB TABLET GT (08:38)
[2024-11-17] MEDS: FUROSEMIDE 20 MG TABLET GT (08:38)
[2024-11-17] MEDS: ACETAMINOPHEN 325 MG TABLET 650 MG GT (19:49)
--- NOTE | 2024-11-17 20:02 | PC.NURSE ---
Nurse summoned to resident room, resident noted to have increased respiratory rate of 30, delayed capillary refill, eyes noted to be fixed, vital signs taken, VS:70/50,97.4,30,65, O2sat 94%, made aware of change in condition, new order obtained for to administer 250mL of Normal Saline now via Gtube and another 250mL in an hour, resident insurance sales representative Rashel Oh made aware of change in condition.
[2024-11-17] MEDS: ATORVASTATIN 40 MG TABLET 80 MG GT (20:30)
[2024-11-18] VITALS (7 sets, daily range): BP systolic 96–110; BP diastolic 39–58; PULSE 53–67; RESP 18–41; TEMP 36.2; O2SAT 96–100
[2024-11-18] MEDS: IPRATROPIUM/ALBUTEROL 3 ML AMPUL.NEB INH ×4 (00:02→18:48)
[2024-11-18] MEDS: INSULIN REGULAR, HUMAN 100 UNIT/ML VIAL SC ×3 (05:31→23:28)
[2024-11-18] MEDS: MULTIVITAMIN 1 TAB TABLET GT (08:23)
[2024-11-18] MEDS: ASCORBIC ACID 500 MG TABLET GT ×2 (08:23→20:37)
[2024-11-18] MEDS: CALCIUM GT (08:23)
[2024-11-18] MEDS: FUROSEMIDE 20 MG TABLET GT (08:23)
[2024-11-18] MEDS: VIT D3 GT (08:23)
[2024-11-18] MEDS: AMIODARONE 200 MG TABLET GT (08:23)
[2024-11-18] MEDS: SENNOSIDES 8.6 MG TABLET GT ×2 (08:23→20:37)
[2024-11-18] MEDS: AMLODIPINE 10 MG TABLET GT (08:23)
--- NOTE | 2024-11-18 17:56 | PD.SAPROG ---
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 (7) Decubital ulcer: Status: Chronic (8) Deep venous thrombosis: Status: Chronic Qualifiers: DVT location: lower extremity Affected thrombotic vein of extremity: unspecified lower extremity proximal vein Chronicity: chronic Laterality: unspecified laterality Qualified Code(s): I82.5Y9 - Chronic embolism and thrombosis of unspecified deep veins of unspecified proximal lower extremity (9) Diastolic CHF: Status: Chronic Qualifiers: Heart failure chronicity: chronic Qualified Code(s): I50.32 - Chronic diastolic (congestive) heart failure OBJECTIVE Most recent vital signs: Last Vital Signs Temp 97.2 F 11/18/24 06:00 Pulse 64 11/18/24 12:55 Resp 26 H 11/18/24 12:55 BP 110/55 L 11/18/24 08:23 Pulse Ox 98 11/18/24 12:55 O2 Del Method Mechanical Ventilation 11/17/24 16:39 O2 Flow Rate 97 11/17/24 16:39 FiO2 40 11/18/24 12:55 Neurological:: PVS (spontaneous eye opening but no cognizant response to simple commands) Speech:: none Answers questions:: no Respiratory:: shallow breathing Cardiovascular: irregular Abdomen: soft Extremities:: deformities Decubitus:: unchanged Tracheostomy:: to blow by Complaints:: none ASSESSMENT & PLAN Assessment: Pt bed bound with all above etilologies, chronic, and fully dependent for all care . Prognosis very poor. Family considering Hospice care and possible transfer closer to home at [place] if possible. From 06-08-24 to 06-15-24 pt was in Acute Hospital for re-accumulation of Malignant Pleural effusion and requiring drainage for comfort. Returned from acute care on 08-10-24. Current medications reviewed and continued as ongoing. VSS. No distress. Objective achievable is comfort. No distress noted. Pt gained lot of weight with fluid overload during stay in acute care. Diuresis continued for comfort. i's & O's monitored. Mild blood noted in Urine but no discomfort noted. Cleared subsequently. Objective of comfort being achieved. For two days spiking fever and some emesis controlled with medication. Possible aspiration. Symptomatic treatment effective. Fever recurred. Given empirical trial of Clindamycin for aspiration pn. Pt now settled down better and is comfortable. Objective of no pain being achieved. Progressive deterioration expected Plan: Maintain all support with objective of ensuring comfort.Pt code status changed to comfort measures only and no transfers to acute care
[2024-11-18] MEDS: ATORVASTATIN 40 MG TABLET 80 MG GT (20:37)
[2024-11-19] VITALS (10 sets, daily range): BP systolic 100–112; BP diastolic 50–65; PULSE 60–71; RESP 18–36; TEMP 36.1–36.7; O2SAT 99–100
[2024-11-19] MEDS: IPRATROPIUM/ALBUTEROL 3 ML AMPUL.NEB INH ×4 (00:37→19:53)
[2024-11-19] MEDS: INSULIN REGULAR, HUMAN 100 UNIT/ML VIAL SC ×3 (05:27→17:18)
[2024-11-19] MEDS: AMIODARONE 200 MG TABLET GT (08:29)
[2024-11-19] MEDS: VIT D3 GT (08:30)
[2024-11-19] MEDS: CALCIUM GT (08:30)
[2024-11-19] MEDS: SENNOSIDES 8.6 MG TABLET GT ×2 (08:30→20:57)
[2024-11-19] MEDS: FUROSEMIDE 20 MG TABLET GT (08:30)
[2024-11-19] MEDS: AMLODIPINE 10 MG TABLET GT (08:30)
[2024-11-19] MEDS: MULTIVITAMIN 1 TAB TABLET GT (08:30)
[2024-11-19] MEDS: ASCORBIC ACID 500 MG TABLET GT ×2 (08:30→20:55)
[2024-11-19] MEDS: ACETAMINOPHEN 325 MG TABLET 650 MG GT (17:15)
[2024-11-19] MEDS: ATORVASTATIN 40 MG TABLET 80 MG GT (20:57)
[2024-11-20] VITALS (10 sets, daily range): BP systolic 99–121; BP diastolic 46–67; PULSE 54–89; RESP 18–32; TEMP 36.1–36.4; O2SAT 98–100
[2024-11-20] MEDS: INSULIN REGULAR, HUMAN 100 UNIT/ML VIAL SC ×5 (00:26→23:37)
[2024-11-20] MEDS: IPRATROPIUM/ALBUTEROL 3 ML AMPUL.NEB INH ×4 (00:38→19:09)
[2024-11-20] MEDS: AMIODARONE 200 MG TABLET GT (08:08)
[2024-11-20] MEDS: VIT D3 GT (08:09)
[2024-11-20] MEDS: MULTIVITAMIN 1 TAB TABLET GT (08:09)
[2024-11-20] MEDS: SENNOSIDES 8.6 MG TABLET GT ×2 (08:09→20:44)
[2024-11-20] MEDS: CALCIUM GT (08:09)
[2024-11-20] MEDS: ASCORBIC ACID 500 MG TABLET GT ×2 (08:09→20:43)
[2024-11-20] MEDS: FUROSEMIDE 20 MG TABLET GT (08:09)
[2024-11-20] MEDS: ATORVASTATIN 40 MG TABLET 80 MG GT (20:44)
[2024-11-21] VITALS (9 sets, daily range): BP systolic 101–123; BP diastolic 54–78; PULSE 63–79; RESP 18–30; TEMP 36.2–36.4; O2SAT 96–100
[2024-11-21] MEDS: IPRATROPIUM/ALBUTEROL 3 ML AMPUL.NEB INH ×4 (00:41→20:08)
[2024-11-21] MEDS: INSULIN REGULAR, HUMAN 100 UNIT/ML VIAL SC ×3 (05:08→23:39)
[2024-11-21] MEDS: AMIODARONE 200 MG TABLET GT (08:14)
[2024-11-21] MEDS: SENNOSIDES 8.6 MG TABLET GT ×2 (08:15→21:25)
[2024-11-21] MEDS: AMLODIPINE 10 MG TABLET GT (08:15)
[2024-11-21] MEDS: MULTIVITAMIN 1 TAB TABLET GT (08:15)
[2024-11-21] MEDS: CALCIUM GT (08:15)
[2024-11-21] MEDS: ASCORBIC ACID 500 MG TABLET GT ×2 (08:15→21:25)
[2024-11-21] MEDS: FUROSEMIDE 20 MG TABLET GT (08:15)
[2024-11-21] MEDS: VIT D3 GT (08:15)
[2024-11-21] MEDS: ACETAMINOPHEN 325 MG TABLET 650 MG GT (21:25)
[2024-11-21] MEDS: ATORVASTATIN 40 MG TABLET 80 MG GT (21:25)
[2024-11-22] VITALS (9 sets, daily range): BP systolic 107–118; BP diastolic 55–69; PULSE 60–76; RESP 18–30; TEMP 36.2–36.9; O2SAT 97–100
[2024-11-22] MEDS: IPRATROPIUM/ALBUTEROL 3 ML AMPUL.NEB INH ×4 (01:16→19:55)
[2024-11-22] MEDS: INSULIN REGULAR, HUMAN 100 UNIT/ML VIAL SC ×2 (05:39→17:26)
[2024-11-22] MEDS: AMLODIPINE 10 MG TABLET GT (08:19)
[2024-11-22] MEDS: AMIODARONE 200 MG TABLET GT (08:19)
[2024-11-22] MEDS: ASCORBIC ACID 500 MG TABLET GT ×2 (08:20→20:48)
[2024-11-22] MEDS: FUROSEMIDE 20 MG TABLET GT (08:21)
[2024-11-22] MEDS: MULTIVITAMIN 1 TAB TABLET GT (08:21)
[2024-11-22] MEDS: SENNOSIDES 8.6 MG TABLET GT ×2 (08:21→20:50)
[2024-11-22] MEDS: VIT D3 GT (08:21)
[2024-11-22] MEDS: CALCIUM GT (08:21)
--- NOTE | 2024-11-22 14:56 | PC.SS ---
Resident remains on vent with trach in place and GT for medication and nutrition. Resident is unable to make needs known, telecommunications sales representative will continue to make all medical decisions for resident. Resident will remain in current care as resident is not ready to DC to lower level of care, she will continue to have all subacute care needs met by staff.
[2024-11-22] MEDS: ATORVASTATIN 40 MG TABLET 80 MG GT (20:49)
--- NOTE | 2024-11-22 22:01 | PD.SAPROG ---
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 (7) Decubital ulcer: Status: Chronic (8) Deep venous thrombosis: Status: Chronic Qualifiers: DVT location: lower extremity Affected thrombotic vein of extremity: unspecified lower extremity proximal vein Chronicity: chronic Laterality: unspecified laterality Qualified Code(s): I82.5Y9 - Chronic embolism and thrombosis of unspecified deep veins of unspecified proximal lower extremity (9) Diastolic CHF: Status: Chronic Qualifiers: Heart failure chronicity: chronic Qualified Code(s): I50.32 - Chronic diastolic (congestive) heart failure OBJECTIVE Most recent vital signs: Last Vital Signs Temp 97.7 F 11/22/24 17:32 Pulse 65 11/22/24 17:32 Resp 19 11/22/24 17:32 BP 107/59 L 11/22/24 17:32 Pulse Ox 97 11/22/24 17:32 O2 Del Method Mechanical Ventilation 11/22/24 05:35 O2 Flow Rate 97 11/17/24 16:39 FiO2 40 11/22/24 13:09 Neurological:: PVS (spontaneous eye opening but no cognizant response to simple commands) Speech:: none Answers questions:: no Respiratory:: shallow breathing Cardiovascular: irregular Abdomen: soft Extremities:: deformities Decubitus:: unchanged Tracheostomy:: to blow by Complaints:: none ASSESSMENT & PLAN Assessment: Pt bed bound with all above etilologies, chronic, and fully dependent for all care . Prognosis very poor. Family considering Hospice care and possible transfer closer to home at [place] if possible. From 06-08-24 to 06-15-24 pt was in Acute Hospital for re-accumulation of Malignant Pleural effusion and requiring drainage for comfort. Returned from acute care on 08-10-24. Current medications reviewed and continued as ongoing. VSS. No distress. Objective achievable is comfort. No distress noted. Pt gained lot of weight with fluid overload during stay in acute care. Diuresis continued for comfort. i's & O's monitored. Mild blood noted in Urine but no discomfort noted. Cleared subsequently. Objective of comfort being achieved. For two days spiking fever and some emesis controlled with medication. Possible aspiration. Symptomatic treatment effective. Fever recurred. Given empirical trial of Clindamycin for aspiration pn. Pt now settled down better and is comfortable. Objective of no pain being achieved. Progressive deterioration expected Plan: Maintain all support with objective of ensuring comfort.Pt code status changed to comfort measures only and no transfers to acute care
[2024-11-23] VITALS (9 sets, daily range): BP systolic 106–145; BP diastolic 56–63; PULSE 23–74; RESP 20–32; TEMP 36.2–36.4; O2SAT 97–100
[2024-11-23] MEDS: IPRATROPIUM/ALBUTEROL 3 ML AMPUL.NEB INH ×4 (00:23→18:32)
[2024-11-23] MEDS: AMIODARONE 200 MG TABLET GT (08:10)
[2024-11-23] MEDS: AMLODIPINE 10 MG TABLET GT (08:11)
[2024-11-23] MEDS: ASCORBIC ACID 500 MG TABLET GT ×2 (08:12→20:23)
[2024-11-23] MEDS: FUROSEMIDE 20 MG TABLET GT (08:13)
[2024-11-23] MEDS: MULTIVITAMIN 1 TAB TABLET GT (08:13)
[2024-11-23] MEDS: CALCIUM GT (08:13)
[2024-11-23] MEDS: SENNOSIDES 8.6 MG TABLET GT ×2 (08:13→20:24)
[2024-11-23] MEDS: VIT D3 GT (08:13)
[2024-11-23] MEDS: INSULIN REGULAR, HUMAN 100 UNIT/ML VIAL SC ×2 (11:45→23:47)
[2024-11-23] MEDS: ACETAMINOPHEN 325 MG TABLET 650 MG GT (20:20)
[2024-11-23] MEDS: ATORVASTATIN 40 MG TABLET 80 MG GT (20:24)
[2024-11-24] VITALS (10 sets, daily range): BP systolic 103–125; BP diastolic 49–63; PULSE 53–67; RESP 18–33; TEMP 36.1–36.6; O2SAT 98–100
[2024-11-24] MEDS: INSULIN REGULAR, HUMAN 100 UNIT/ML VIAL SC ×4 (05:54→23:24)
[2024-11-24] MEDS: IPRATROPIUM/ALBUTEROL 3 ML AMPUL.NEB INH ×3 (06:29→19:36)
[2024-11-24] MEDS: AMIODARONE 200 MG TABLET GT (08:23)
[2024-11-24] MEDS: ASCORBIC ACID 500 MG TABLET GT ×2 (08:24→20:47)
[2024-11-24] MEDS: AMLODIPINE 10 MG TABLET GT (08:24)
[2024-11-24] MEDS: VIT D3 GT (08:24)
[2024-11-24] MEDS: CALCIUM GT (08:24)
[2024-11-24] MEDS: FUROSEMIDE 20 MG TABLET GT (08:25)
[2024-11-24] MEDS: ACETAMINOPHEN 325 MG TABLET 650 MG GT ×2 (08:26→20:45)
[2024-11-24] MEDS: SENNOSIDES 8.6 MG TABLET GT ×2 (08:26→20:47)
[2024-11-24] MEDS: MULTIVITAMIN 1 TAB TABLET GT (08:26)
--- NOTE | 2024-11-24 12:40 | ESPR_ITS ---
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 (7) Decubital ulcer: Status: Chronic (8) Deep venous thrombosis: Status: Chronic Qualifiers: DVT location: lower extremity Affected thrombotic vein of extremity: unspecified lower extremity proximal vein Chronicity: chronic Laterality: unspecified laterality Qualified Code(s): I82.5Y9 - Chronic embolism and thrombosis of unspecified deep veins of unspecified proximal lower extremity (9) Diastolic CHF: Status: Chronic Qualifiers: Heart failure chronicity: chronic Qualified Code(s): I50.32 - Chronic diastolic (congestive) heart failure OBJECTIVE Most recent vital signs: Last Vital Signs Temp 97.8 F 11/24/24 06:00 Pulse 63 11/24/24 08:24 Resp 21 H 11/24/24 06:29 BP 125/63 11/24/24 08:24 Pulse Ox 100 11/24/24 06:29 O2 Del Method Mechanical Ventilation 11/23/24 06:00 O2 Flow Rate 97 11/23/24 06:00 FiO2 40 11/24/24 06:29 Neurological:: PVS (spontaneous eye opening but no cognizant response to simple commands) Speech:: none Answers questions:: no Respiratory:: shallow breathing Cardiovascular: irregular Abdomen: soft Extremities:: deformities Decubitus:: unchanged Tracheostomy:: to blow by Complaints:: none ASSESSMENT & PLAN Assessment: Pt bed bound with all above etilologies, chronic, and fully dependent for all care . Prognosis very poor. Family considering Hospice care and possible transfer closer to home at [place] if possible. From 06-08-24 to 06-15-24 pt was in Acute Hospital for re-accumulation of Malignant Pleural effusion and requiring drainage for comfort. Returned from acute care on 08-10-24. Current medications reviewed and continued as ongoing. VSS. No distress. Objective achievable is comfort. No distress noted. Pt gained lot of weight with fluid overload during stay in acute care. Diuresis continued for comfort. i's & O's monitored. Mild blood noted in Urine but no discomfort noted. Cleared subsequently. Objective of comfort being achieved. For two days spiking fever and some emesis controlled with medication. Possible aspiration. Symptomatic treatment effective. Fever recurred. Given empirical trial of Clindamycin for aspiration pn. Pt now settled down better and is comfortable. Objective of no pain being achieved. Progressive deterioration expected Plan: Maintain all support with objective of ensuring comfort.Pt code status changed to comfort measures only and no transfers to acute care
[2024-11-24] MEDS: ATORVASTATIN 40 MG TABLET 80 MG GT (20:47)
[2024-11-25] VITALS (8 sets, daily range): BP systolic 100–106; BP diastolic 47–61; PULSE 55–69; RESP 19–29; TEMP 36.3–36.6; O2SAT 98–100
[2024-11-25] MEDS: IPRATROPIUM/ALBUTEROL 3 ML AMPUL.NEB INH ×4 (01:17→18:53)
[2024-11-25] MEDS: AMIODARONE 200 MG TABLET GT (08:31)
[2024-11-25] MEDS: VIT D3 GT (08:33)
[2024-11-25] MEDS: FUROSEMIDE 20 MG TABLET GT (08:33)
[2024-11-25] MEDS: ASCORBIC ACID 500 MG TABLET GT ×2 (08:33→20:15)
[2024-11-25] MEDS: CALCIUM GT (08:33)
[2024-11-25] MEDS: MULTIVITAMIN 1 TAB TABLET GT (08:34)
[2024-11-25] MEDS: SENNOSIDES 8.6 MG TABLET GT ×2 (08:34→20:16)
[2024-11-25] MEDS: INSULIN REGULAR, HUMAN 100 UNIT/ML VIAL SC (12:00)
[2024-11-25] MEDS: ACETAMINOPHEN 325 MG TABLET 650 MG GT (20:15)
[2024-11-25] MEDS: ATORVASTATIN 40 MG TABLET 80 MG GT (20:16)
[2024-11-25] MEDS: MAGNESIUM HYDROXIDE 30 ML ORAL SUSP ML GT (21:26)
[2024-11-26] VITALS (10 sets, daily range): BP systolic 112–129; BP diastolic 56–73; PULSE 54–569; RESP 22–35; TEMP 36.1–36.5; O2SAT 98–100
[2024-11-26] MEDS: INSULIN REGULAR, HUMAN 100 UNIT/ML VIAL SC ×3 (00:04→17:23)
[2024-11-26] MEDS: IPRATROPIUM/ALBUTEROL 3 ML AMPUL.NEB INH ×4 (00:57→19:08)
[2024-11-26] MEDS: AMIODARONE 200 MG TABLET GT (08:01)
[2024-11-26] MEDS: ASCORBIC ACID 500 MG TABLET GT ×2 (08:03→20:40)
[2024-11-26] MEDS: FUROSEMIDE 20 MG TABLET GT (08:03)
[2024-11-26] MEDS: VIT D3 GT (08:03)
[2024-11-26] MEDS: SENNOSIDES 8.6 MG TABLET GT ×2 (08:03→20:42)
[2024-11-26] MEDS: MULTIVITAMIN 1 TAB TABLET GT (08:03)
[2024-11-26] MEDS: CALCIUM GT (08:03)
[2024-11-26] MEDS: AMLODIPINE 10 MG TABLET GT (08:03)
[2024-11-26] MEDS: ATORVASTATIN 40 MG TABLET 80 MG GT (20:42)
[2024-11-26] MEDS: ACETAMINOPHEN 325 MG TABLET 650 MG GT (20:43)
[2024-11-27] VITALS (9 sets, daily range): BP systolic 92–125; BP diastolic 44–72; PULSE 46–76; RESP 18–39; TEMP 36.1–36.2; O2SAT 95–100
[2024-11-27] MEDS: IPRATROPIUM/ALBUTEROL 3 ML AMPUL.NEB INH ×4 (00:24→18:30)
[2024-11-27] MEDS: INSULIN REGULAR, HUMAN 100 UNIT/ML VIAL SC ×4 (00:41→17:04)
[2024-11-27] MEDS: ASCORBIC ACID 500 MG TABLET GT ×2 (08:20→20:47)
[2024-11-27] MEDS: VIT D3 GT (08:21)
[2024-11-27] MEDS: CALCIUM GT (08:21)
[2024-11-27] MEDS: FUROSEMIDE 20 MG TABLET GT (08:21)
[2024-11-27] MEDS: MULTIVITAMIN 1 TAB TABLET GT (08:21)
[2024-11-27] MEDS: SENNOSIDES 8.6 MG TABLET GT ×2 (08:22→20:47)
[2024-11-27] MEDS: ACETAMINOPHEN 325 MG TABLET 650 MG GT ×2 (08:23→15:10)
--- NOTE | 2024-11-27 17:33 | PC.RT ---
Dr. Hernandez called due to constant ventilator alarm for increased peak pressure.RT requested to make ventilator changes which Dr. Hernandez denied. Per Md Hernandez Give a breathing tx, if it does not work give another in 30 minutes. The patient is in end of life stages and there is nothing to do. No changes at this time. MARIAMA Gentile and RN Brandi mora.
--- NOTE | 2024-11-27 18:18 | PC.NURSE ---
Resident's mechanical ventilator keeps on alarming, with high peak pressure. Resident was repositioned and suctioned as needed . Resident was given ativan at 1619 for increased respiration and noted to be effective, resident looks calm after. Called day shift RT to check on resident's ventilator and she called Dr Hernandez. No new orders made as per report received.
[2024-11-27] MEDS: ATORVASTATIN 40 MG TABLET 80 MG GT (20:47)
[2024-11-28] VITALS: BP 98/48; PULSE 43; RESP 32; TEMP 35.7
[2024-11-28 00:19] VITALS: PULSE 54; PULSE 58; RESP 35; RESP 36; O2SAT 98; O2SAT 99
[2024-11-28] MEDS: IPRATROPIUM/ALBUTEROL 3 ML AMPUL.NEB INH ×2 (00:19→05:55)
[2024-11-28] MEDS: INSULIN REGULAR, HUMAN 100 UNIT/ML VIAL SC ×2 (00:23→05:43)
[2024-11-28] MEDS: ACETAMINOPHEN 325 MG TABLET 650 MG GT (02:39)
[2024-11-28 05:55] VITALS: PULSE 49; PULSE 62; RESP 26; O2SAT 100; O2SAT 99
[2024-11-28 08:15] VITALS: BP 112/55; PULSE 44
[2024-11-28 08:16] VITALS: BP 112/55; PULSE 44
[2024-11-28] MEDS: CALCIUM GT (08:17)
[2024-11-28] MEDS: VIT D3 GT (08:17)
[2024-11-28] MEDS: ASCORBIC ACID 500 MG TABLET GT (08:17)
[2024-11-28] MEDS: FUROSEMIDE 20 MG TABLET GT (08:18)
[2024-11-28] MEDS: MULTIVITAMIN 1 TAB TABLET GT (08:18)
[2024-11-28] MEDS: SENNOSIDES 8.6 MG TABLET GT (08:18)
--- NOTE | 2024-11-28 11:08 | PC.NURSE ---
The nurse called my attention to look the resident, and when I checked the resident, resident was pale, no pulse and not breathing, called the RT and Veronica or clinical business excellence manager, and around 1007 they prounounced her , by MD Veronica, made aware,family was notified, and around 1022 I called the Donor referral spoke to Billy Ricketts, and give me a referral no. [id number].
--- NOTE | 2024-11-28 14:55 | PC.NURSE ---
The remain was shrimp picker by [facility] around 1423.
--- NOTE | 2024-11-28 16:43 | PC.SS ---
Resident @[address] mora, pronounced by Veronica Peterson RN. Family notified and were able to see her before the Mortuary took her remains. Son-Xai Her, and Daughter were here to sign the inventory list and all belongings were taken by family but told staff to throw away all the blankets. [facility]- [facility] took remains at [phone].
--- NOTE | 2024-12-10 11:08 | ESDS_ITS ---
RE: DAJUAN PAZ : 1940 DATE OF ADMISSION: 05/30/2024 DATE OF DISCHARGE: 11/28/2024 DISCHARGE/ SUMMARY DATE OF DISCHARGE/: 11/28/2024 ADMITTING DIAGNOSES: Cerebrovascular accidents, seizure disorder, atrial fibrillation, essential hypertension, type 2 diabetes mellitus, chronic respiratory failure with tracheostomy and a feeding gastrostomy tube, recurrent pleural effusions. Altered mental status. Nonverbal. DISCHARGE DIAGNOSES: Cerebrovascular accidents, seizure disorder, atrial fibrillation, essential hypertension, type 2 diabetes mellitus, chronic respiratory failure with tracheostomy and a feeding gastrostomy tube, recurrent pleural effusions. Altered mental status. Nonverbal. Malignant pleural effusion; recurrent aspirations; acute on chronic respiratory failure. HOSPITAL COURSE AND RELEVANT DATA: The patient was an elderly female 83 years of age with the above-stated multiple organ compromise, admitted for long-term care. Once the diagnosis of malignant pleural effusion was made, family decided to change the patient's status to hospice care for comfort measures, which was accordingly complied with. The patient slowly deteriorated over time, but remained comfortable and on 11/28/2024 peacefully and was pronounced as per protocol. DT: 08:31:36 TT: 08:58:00 Ref: [id number] - TID: [id number] MTDD
== END 2024-11-28 10:07 | disposition expired | DRG 207 ==
PROVIDERS: Family Medicine; Admitting Provider Specialist; Visit Provider Specialist
DX: J96.20 Acute and chronic respiratory failure, unspecified whether with hypoxia or hypercapnia (principal); J18.9 Pneumonia, unspecified organism; I63.9 Cerebral infarction, unspecified; J91.0 Malignant pleural effusion; I48.20 Chronic atrial fibrillation, unspecified; I50.32 Chronic diastolic (congestive) heart failure; I82.5Y9 Chronic embolism and thrombosis of unspecified deep veins of unspecified proximal lower extremity; Z93.1 Gastrostomy status; Z93.0 Tracheostomy status; Z74.01 Bed confinement status; E11.9 Type 2 diabetes mellitus without complications; I11.0 Hypertensive heart disease with heart failure; Z51.5 Encounter for palliative care; Z66 Do not resuscitate
CPT/HCPCS: 36415; 36430; 71045; 80053; 80069; 80202; 83880; 84100; 85025; 85049; 85610; 85730; 86850; 86900; 86901; 86923; 87070; 87205; 94002; 94004; 94640; 94762; P9016

== ENCOUNTER 2024-06-08 21:25 | Inpatient (IN) | payer MEDICARE, OTHER, SELFPAY ==
--- NOTE | 2024-06-08 21:35 | PD.EDSOB ---
ED SOB =RME/HPI General Chief Complaint: Shortness of Breath/Dyspnea Stated Complaint: SHORTNESS OF BREATH Time Seen by Provider: 06/08/24 21:37 Source: RN notes reviewed Arrival date/time: 06/08/24 21:25 Mode of arrival: other (gurney from this facility's subacute) Limitations: physical limitation and other (nonverbal) RME / HPI RME / HPI Narrative: Dr. Penny?s Main ED Evaluation: 83[place]year[place] [facility] [place] complex medical history, including 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 Related Data Home Medications ?Medication ?Instructions ?Recorded ?Confirmed acetaminophen 325 mg tablet 325 mg feeding tube Q6H PRN fever 04/25/24 05/20/24 or pain amiodarone 200 mg tablet 200 mg feeding tube DAILY 04/25/24 05/20/24 amlodipine 10 mg tablet 10 mg feeding tube QDAY 04/25/24 05/20/24 apixaban 2.5 mg tablet (Eliquis) 2.5 mg feeding tube BID 04/25/24 05/20/24 Held on 05/30/24. Instructions: Resume on 06/08/24. Hold until Hgb stable and no evidence of GI bleed atorvastatin 80 mg tablet 80 mg feeding tube HS 04/25/24 05/20/24 bisacodyl 5 mg tablet,delayed 5 mg feeding tube Q6H PRN 04/25/24 05/20/24 release (Gentle Laxative constipation (bisacodyl)) insulin regular human 100 unit/mL 1 sliding scale dose subcut Q6H 04/25/24 05/20/24 (3 mL) subcutaneous pen (Novolin R FlexPen) ipratropium 0.5 mg-albuterol 3 mg 3 ml inhalation Q6H PRN shortness 04/25/24 05/20/24 (2.5 mg base)/3 mL nebulization of breath soln lactulose 10 gram/15 mL oral 10 g feeding tube Q6H 04/25/24 05/20/24 solution (Enulose) metoprolol tartrate 25 mg tablet 25 mg feeding tube Q12H 04/25/24 05/20/24 calcium 600 mg (as 1 cap PO DAILY 05/20/24 05/20/24 carbonate)-vitamin D3 5 mcg (200 unit) capsule (Calcium 600 + D(3)) sennosides 8.6 mg tablet 8.6 mg feeding tube BID 05/20/24 05/20/24 (Black-Draught Lax-Senna) Previous Rx's ?Medication ?Instructions ?Recorded bumetanide 1 mg tablet 1 mg PO QDAY 1 month #30 tabs 05/30/24 Allergies Allergy/AdvReac Type Severity Reaction Status Date / Time No Known Allergies Allergy Verified 05/25/24 08:41 Review of Systems Review of Systems ROS Unobtainable: due to endotracheal tube Past Medical History Past Medical History NEUROLOGIC: Positive Neurological Disorders and Cerebrovascular Accident; Negative Seizures or Traumatic Brain Injury CARDIAC: Positive Atrial Fibrillation, Hypercholesterolemia, Edema and Hypertension; Negative Cardiac Disorders or Congestive Heart Failure RESPIRATORY: Negative Chronic Obstructive Pulmonary Disease (COPD) or Asthma GASTROINTESTINAL: Negative Gastrointestinal Disorders or Hepatitis GENITOURINARY: Negative Genitourinary Disorders or Renal Disease REPRODUCTIVE: Negative Pelvic Inflammatory Disease ENDOCRINE: Positive Endocrine Disorders and Diabetes Mellitus Type 2; Negative Diabetes Mellitus Type 1 or Hypoglycemia HEMATOLOGIC: Negative Blood Disorders or Sickle Cell Disease PSYCHO/SOCIAL: Negative Eating Disorder OTHER HISTORY: Positive Blood Transfusions; Negative Autoimmune Disease, Blood Transfusion Reaction, Anesthesia Reactions, Clostridium Difficile or Cancer Family History FAMILY HISTORY: Negative Family Psychiatric Problems, Family Respiratory Disorders, Family Cardiac Disorders, Family Gastrointestinal Problems, Family Cancer, Family Surgery or Family Anesthesia Reaction Surgical History SURGICAL: Positive Tracheostomy and Gastrostomy; Negative Cardiac Surgery, Nephrectomy, Joint Replacement, Neurologic Surgery or Mastectomy Social History SMOKING STATUS: Unknown if ever smoked SECOND HAND EXPOSURE: No SUBSTANCE USE: does not use ED Exam Narrative Physical exam: General: Thin, chronically ill-appearing, flat affect, nonverbal but opens eyes spontaneously, not in acute distress. HEENT: No signs of acute infection, no oropharyngeal lesions, mucous membranes moist. Neck: No JVD, no lymphadenopathy, tracheostomy in place without signs of infection. Cardiovascular: Regular rhythm, no murmurs/rubs/gallops, no peripheral edema. Respiratory: Not using accessory muscles, not in respiratory distress. Abdomen: Soft, non-tender, non-distended, G-tube in place with site clean and intact. Extremities: No cyanosis, clubbing, or edema, spontaneous minimal movement of upper and lower extremities. Neurological: Nonverbal, opens eyes spontaneously, no focal deficits, spontaneous minimal movement of extremities. Skin: No acute rashes, sacral wound present but nontender, clean, no redness, no discharge. Genitourinary: Hector catheter intact, no signs of infection or leakage. General Limitations: Present physical limitation and other (nonverbal) Course Course Course Narrative: 2140 Sepsis alert initiated. Orders made at this time are congruent with ED Adult Sepsis Order List. Re-evaluation is to be completed. 0 Sepsis reassessment performed consisting of lab review, vitals, physical exam including auscultation of heart, lungs, and visual evaluation of capillary refills, mucosal membranes and extremities. Patient is in CHF, so patient cannot receive 30mL/kg IVF. 1L ordered. Quality Measures Current suspected stage: sepsis Possible source: pulmonary, GI tract/intra-abdominal, genitourinary and skin/soft tissue Blood cultures ordered: completed in ED Antibiotic ordered: Yes Pertinent labs: 06/08/24 21:55 Lactic Acid 2.0 mMol/L (0.4-2.0) Procalcitonin 0.40 ng/ml (0.0-0.49) sepsis Orders Category Date Time Status CT Screening NOW Care 06/08/24 22:57 Active Fur Weigher STAT Care 06/08/24 21:42 Active Continuous Pulse Oximetry STAT Care 06/08/24 21:42 Completed EKG (ED ONLY) *Do not use* NOW Care 06/08/24 21:42 Completed Insert IV NOW Care 06/08/24 21:42 Active Insert IV NOW Care 06/08/24 21:44 Completed NPO STAT Care 06/08/24 21:42 Active Strict Intake and Output Routine Care 06/08/24 21:[address] chest abdomen pelvis w con SEPSIS PROTOCOL Stat Exams 06/09/24 00:59 Taken EKG (ED Only) Stat Exams 06/08/24 21:42 Draft XR chest 1V SEPSIS PROTOCOL Stat Exams 06/08/24 21:43 Completed B-Type Natriuretic Peptide Stat Lab 06/08/24 21:55 Completed Blood Culture (Lab) Stat Lab 06/08/24 21:55 Received CBC Stat Lab 06/08/24 21:55 Completed Comprehensive Metabolic Panel Stat Lab 06/08/24 21:55 Completed LDH (Lactate Dehydrogenase) Stat Lab 06/08/24 21:55 Completed Lactate (Lactic Acid) Stat Lab 06/08/24 21:55 Completed Lipase Stat Lab 06/08/24 21:55 Completed Magnesium Stat Lab 06/08/24 21:55 Completed Partial Thromboplastin Time Stat Lab 06/08/24 21:55 Completed Phosphorous Stat Lab 06/08/24 21:55 Completed Procalcitonin Stat Lab 06/08/24 21:55 Completed Prothrombin Time with INR Stat Lab 06/08/24 21:55 Completed Troponin I Stat Lab 06/08/24 21:55 Completed Urinalysis Stat Lab 06/08/24 22:01 Completed Urine Culture Stat Lab 06/08/24 22:01 Received Piper/Tazo 3.375 gm Premix [Zosyn] Med 06/08/24 21:42 Discontinued 3.375 gm in 50 ml IV X1 Sodium Chloride 0.9% 1000 ml [Ns] 1,401 ml Med 06/09/24 00:14 Discontinued IV 1,401 mls/hr Oxygen Delivery NOW RT 06/08/24 21:42 Active Vital Signs Vital signs: Vital Signs Temperature 102.7 F H 06/08/24 21:38 Pulse Rate 76 06/08/24 21:38 Respiratory Rate 24 H 06/08/24 21:38 Blood Pressure 109/49 L 06/08/24 21:38 Pulse Oximetry (%) 90 L 06/08/24 21:38 Oxygen Delivery Method Blow-by 06/08/24 21:38 Fraction of Inspired Oxygen 40 06/08/24 21:38 Shortness of Breath / Dyspnea MDM Narrative MDM Narrative:: 83-year-old [place] female with a complex medical history, including 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 Notably, the patient was recently admitted from April 21 to April 27 for acute respiratory failure with hypoxia secondary to community-acquired pneumonia. During that hospitalization, she underwent a left lung thoracentesis, which drained 1,200 cc of pleural fluid. More recently, she was admitted from May 19 to May 30 for acute respiratory failure with hypoxia secondary to a large left-sided pleural effusion in the setting of aspiration pneumonia. In the ED at that time, imaging revealing extensive pneumonia and left lung atelectasis on chest X-ray. Chest CT demonstrated thyromegaly with multiple thyroid nodules, large bilateral pleural effusions, pneumonia in the left lung base, and atelectasis. 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 Additionally, newly diagnosed congestive heart failure with ejection fraction (HFpEF) was see on echocardiogram, leading to cardiology consultation, which recommended IV diuretics for volume management. Surgical consultation was also obtained for sacral ulcers, which were debrided bedside with subsequent wound care. Due to reaccumulation of the pleural effusion, a PleurX catheter was placed for symptomatic relief. Now, the patient presents to the ED with worsening respiratory distress, hypoxia, and fever, raising concern for recurrent pneumonia, worsening malignant pleural effusion, or progression of underlying cardiopulmonary pathology. 0059: Repeat rectal temp is down to 100.1. Scribe Attestation: Lowell Strickland, am scribing for and in the presence of Dr. Penny. Provider Notation: Although this document has been carefully reviewed, there may still be some phonetic and other typographical errors. These errors are purely grammatical due to imperfections in the software program and should not be construed in any way to compromise the substance of the patient's medical care during this visit. Patient data External records reviewed:: [facility] previous records and Other (specify) (subacute records) Clinical information provided by:: other (specify) (subacute staff) Social determinants that could affect healthcare access:: none Patient has the following chronic illnesses:: see PMH How is presenting disease/condition affected by chronic disease/condition?: uneffected by Evaluation data The following diagnostics were reviewed and interpreted by me:: lab results, radiology exam(s) and EKG tracing(s) Lab and/or radiology exams considered but not ordered:: na Interpretation Summary: [facility] Report Signed Patient: DAJUAN PAZ Record#: [id number] Birthdate: 1940 Age/Sex: 83 / F Location: [facility] Attending Dr: Ordering Physician: Andreina Penny MD Date of Service: 06/08/24 Procedure(s): XR chest 1V SEPSIS PROTOCOL Accession Number(s): [id number] cc: Prem Dowd MD; Andreina Penny MD~ Examination: AP chest single view Technique one AP portable semiupright chest single view Date and time: June 08, 2024, 2045 hrs. Comparison May 17, 2024 Indications: Sepsis protocol Findings: Heart failure with enlargement cardiac contour and prominent vascular congestion Bilateral significant pleural effusions Consider superimposed bilateral Tracheostomy tube tip 7.8 cm above segundo Impression: Significant heart failure Consider superimposed bilateral pneumonia Dictated By: Prem Dowd MD Signed By: <Electronically signed by Prem Dowd MD in OV> 06/08/24 1188 [place] Preliminary Report Draft Patient: DAJUAN PAZ Record#: [id number] Birthdate: 1940 Age/Sex: 83 / F Location: [facility] Attending Dr: Ordering Physician: Date of Service: Procedure(s): Accession Number(s): cc: ~ CT scan of the chest, abdomen and pelvis with intravenous contrast (axial sections with sagittal and coronal reformats) June 09, 2024 0154 hours Clinical History: 83 yo chronic effusion, stage 4 decub ulcer Comparison: No prior study is available for comparison. Findings: There is right upper lobe patchy consolidation. There is bilateral moderate to marked pleural effusion with compression atelectasis of underlying lung lobes. There is right chest tube with tip seen at anterior mediastinum. There is no pneumothorax. Tracheostomy tube is seen in place There is atheromatous calcification of thoracic aorta without evidence of dissection or aneurysm. There is mild mediastinal lymphadenopathy.There is no pericardial effusion. There is mild the cardiomegaly. Coronary calcification is present. Large heterogenous thyroid gland lobes more at right side; it demonstrates multiple hypodense nodules and calcification suggestive of nodular goiter for ultrasound evaluation. Percutaneous gastrostomy tube is noted. There is moderate hepatomegaly with fatty infiltration. Gallbladder is surgically absent The spleen, pancreas, adrenals and kidneys are unremarkable. No evidence of bowel obstruction. The appendix is not visualized. There is wall thickening of the rectum and sigmoid colon with surrounding fat stranding suggestive of proctocolitis. A moderate amount of fecal material is present in the colon. There is moderate to severe atheromatous calcification of aorta and its branches. A Hector catheter is seen in the urinary bladder. The uterus and adnexa are unremarkable. There is no free fluid or air. There is sacral decubitus ulcer with related skin thickening and subcutaneous fat stranding. Bony erosive changes at the distal coccygeal segment suggestive of acute osteomyelitis Degenerative changes are identified in the spine. Impression: Right upper lobe patchy consolidation. Suspicious of pneumonia recommend clinical correlation. Bilateral moderate to marked pleural effusion Wall thickening of the rectum and sigmoid colon with surrounding fat stranding suggestive of proctocolitis Sacral decubitus ulcer with related bony erosive changes of the distal coccygeal segment suggestive of acute osteomyelitis Other findings as described above. Report Electronically Signed By: Shawn Burns 06/09/2024 3:04:48 AM [EST] Medications / Prescriptions Medications or Prescriptions considered but not ordered:: na Medication administrations:: Medication Administration History Acetaminophen (Acetaminophen 325 Mg Tablet) 650 mg PO Q6H PRN; Protocol PRN Reason: Fever >101.5 Stop: 07/09/24 03:51 Acetaminophen (Acetaminophen Supp 650 Mg Supp) 650 mg [place] Q6HR PRN; Protocol PRN Reason: Fever > 100.5 Stop: 07/09/24 03:51 Albuterol/Ipratropium (Albuterol/Ipratropium (Duoneb) Rt Viviana 3 Ml Nebu) 3 ml INH Q6HRRT PRN PRN Reason: Wheeze Stop: 07/09/24 06:59 Amiodarone HCl (Amiodarone Hcl 200 Mg Tablet) 200 mg GT QDAY AMARJIT Stop: 07/09/24 08:59 Heparin Sodium (Porcine) (Heparin Sod Inj 5000 Unit/Ml Vial) 5,000 unit SC Q12HR AMARJIT Stop: 06/23/24 08:59 Piperacillin Sod/Tazobactam (Sod 3.375 gm/ Sodium Chloride) 50 mls @ 12.5 mls/hr IV Q8HR AMARJIT; Protocol Stop: 06/16/24 05:59 Lactulose (Lactulose Syrup 20 Gm/30 Ml Udc) 10 gm PO QDAY PRN; Protocol PRN Reason: constipation Stop: 07/09/24 08:59 Discontinued Medications Atorvastatin Calcium (Atorvastatin Calcium 20 Mg Tablet) 80 mg GT X1 ONE Stop: 06/09/24 05:01 Piperacillin/Tazobactam/Dextrose (Zosyn) 3.375 gm in 50 mls @ 100 mls/hr IV X1 ONE Stop: 06/08/24 22:11 Last Infusion: 06/08/24 22:25 Dose: Infused Documented By: Admin: 06/08/24 21:55 Dose: 100 mls/hr Documented By: EF Sodium Chloride (Ns) 1,401 mls @ 1,401 mls/hr 30 ml/kg infuse over 60 min (1401 ml) IV .Q1H ONE; Protocol Stop: 06/09/24 01:13 Last Admin: 06/09/24 01:48 Dose: 1,401 mls/hr Documented By: EF as above, if any Consultations Consultation(s) initiated? (list below): Yes Consultation #1 (Physician, Specialty, Details): Discussed case with [the resident physician, attending Dr. Davis] from Hospitalist service regarding admission. Discussed patients ED course, exam findings, labs, and radiology results. The Hospitalist states the patient is on comfort measures. Time: 03:19 Consultation #2 (Physician, Specialty, Details): Spoke with Dr. Hernandez regarding disposition. States to admit the patient for her to get IV antibiotics. Time: 04:15 Consultation #3 (Physician, Specialty, Details): Discussed case with [the resident physician, attending Dr. Davis] from Hospitalist service regarding admission. Discussed patients ED course, exam findings, labs, and radiology results. The Hospitalist [agrees] to accept the patient for admission. Time: 04:20 Diagnosis Shortness of Breath Differential Diagnosis: other (Infected Pleural Effusion, Worsening of Underlying Malignant Pleural Effusion, UTI, Urosepsis, Viral Syndrome) Most likely diagnosis given after review of the tests above:: see clinical impression below Admission Indicated Admission indicated?: indicated Admission Request Was there a request for admission?: Yes Admission Attestation Admission request attestation: Discussed case with [] from Hospitalist service regarding admission. Discussed patients ED course, exam findings, labs, and radiology results. The Hospitalist [agrees,declines] to accept the patient for admission. Disposition Plan Disposition Plan: Admit Critical Care Time Critical Care Time Critical Care Time: Yes Total Critical Care Time (min.): 45 Attestation: The high probability of sudden, clinically significant deterioration in the patient?s condition required the highest level of my preparedness to intervene urgently. ? The services I provided to this patient were to treat and/or prevent clinically significant deterioration. Services included the following: chart data review, reviewing nursing notes and/or old charts, documentation time, wealth management consultant collaboration regarding findings and treatment options, medication orders and management, direct patient care, vital sign assessments and ordering, interpreting and reviewing diagnostic studies and lab tests. ? Aggregate critical care time includes only time during which I was engaged in work directly related to the patient?s care, as described above, whether at bedside or elsewhere in the Emergency Department. It did not include time spent performing other reported procedures or the services of residents, students, nurses or physician assistants. Discharge Plan Plan Patient Disposition: Admit Acute Care w/in Hospital Patient condition on transfer: Stable Problem List Clinical Impression: Sepsis, Bilateral pleural effusion, Elevated troponin, Worsening pneumonia
[2024-06-08 21:38] VITALS: BP 109/49; PULSE 76; RESP 24; TEMP 39.3; O2SAT 90
[2024-06-08 21:42] VITALS: PULSE 77
--- NOTE | 2024-06-08 21:42 | EKG_ITS ---
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
--- NOTE | 2024-06-08 21:43 | XR_ITS ---
Examination: AP chest single view Technique one AP portable semiupright chest single view Date and time: June 08, at 2024, 2045 hrs. Comparison May 17, 2024 Indications: Sepsis protocol Findings: Heart failure with enlargement cardiac contour and prominent vascular congestion Bilateral significant pleural effusions Consider superimposed bilateral Tracheostomy tube tip 7.8 cm above segundo Impression: Significant heart failure Consider superimposed bilateral pneumonia
[2024-06-08] MEDS: PIPER/TAZO 3.375 GM PREMIX 3.375 GM/50 ML BAG IV (21:55)
[2024-06-08 22:16] LABS: Basophils # (Auto) 0.1 Thou/mm3 (0.0-0.2); Basophils % (Auto) 1 % (0-2.5); Eosinophils % (Auto) 0 % (0-10); Hematocrit 26.9 % (36.0-46.0); Immature Granulocytes % (Auto) 1 % (0-0); Immature Granulocytes Auto 0.08 Thou/mm3 (0.00-0.00); Lymphocytes # (Auto) 0.3 Thou/mm3 (1.0-4.8); Lymphocytes % (Auto) 2 % (10-50); Mean Corpuscular HGB Conc 32.7 g/dl (31.0-37.0); Mean Corpuscular Hemoglobin 27.5 pg (25.0-35.0); Mean Corpuscular Volume 84 fL (80-100); Monocytes # (Auto) 0.8 Thou/mm3 (0.0-0.8); Monocytes % (Auto) 5 % (0-12); Neutrophils # (Auto) 15.1 Thou/mm3 (1.8-7.7); Neutrophils % (Auto) 92 % (37-80); Nucleated Red Blood Cell % 0 /100 WBC (0); Platelet Count 454 Thou/mm3 (140-440); RDW Standard Deviation 45.4 fL (36.4-46.3); White Blood Count 16.4 Thou/mm3 (3.6-11.0)
[2024-06-08 22:18] LABS: Hemoglobin 8.8 g/dL (12.0-16.0)
[2024-06-08 22:23] LABS: INR 1.1 (0.9-1.3); Partial Thromboplastin Time 31.7 Seconds (22.0-36.0); Prothrombin Time 11.9 Seconds (9.0-12.2)
[2024-06-08 22:28] LABS: Collection Type, Urine Clean Catch
[2024-06-08 22:41] LABS: Alanine Aminotransferase 26 U/L (10-49); Albumin, Serum 3.1 gm/dL (3.4-4.8); Albumin/Globulin Ratio 0.8 (1.2-2.2); Alkaline Phosphatase 82 U/L (46-116); Anion Gap 8 (7-16); Aspartate Amino Transferase 33 U/L (0-34); B-Type Natriuretic Peptide 816 pg/mL (0-100); BUN/Creatinine Ratio 46 Ratio (12-20); Bilirubin,Total 0.4 mg/dL (0.3-1.2); Blood Urea Nitrogen 41 mg/dL (9-23); Calcium 8.7 mg/dL (8.3-10.6); Calcium (Corrected) 9.4 mg/dL (8.5-10.1); Carbon Dioxide 29.6 mMol/L (20.0-31.0); Chloride 97 mMol/L (98-107); Creatinine (Component) 0.9 mg/dL (0.6-1.3); Globulin 3.7 gm/dL (2.3-3.5); Glucose 117 mg/dL (74-106); LDH (Lactate Dehydrogenase) 222 U/L (120-246); Lipase 63 U/L (12-53); Magnesium 2.1 mg/dL (1.6-2.6); Osmolality,Calculated 281 (275-295); Phosphorous 4.1 mg/dL (2.4-5.1); Potassium 4.8 mMol/L (3.4-5.1); Sodium 135 mMol/L (136-145); Total Protein 6.8 gm/dL (5.7-8.2); eGFR > 60 See Note
[2024-06-08 22:43] LABS: Bilirubin,Urine Negative (Negative); Blood,Urine 1+ (Negative); Clarity,Urine Clear (Clear/Hazy); Color,Urine Yellow (Lt Yel-Yel); Glucose, Urine Negative (Negative); Ketones,Urine Negative (Negative); Leukocyte Esterase,Urine Negative (Negative); Nitrite,Urine Negative (Negative); PH,Urine 7.5 (5.0-7.0); Protein,Urine 3+ (Neg - Trace); RBC,Urine 35 /hpf (0-3); Specific Gravity,Urine 1.017 (1.001-1.035); Squamous Epithelial Cell,Urine < 1 /hpf (0-5); WBC,Urine 3 /hpf (0-5)
[2024-06-09] VITALS (12 sets, daily range): BP systolic 106–138; BP diastolic 50–71; PULSE 75–93; RESP 14–40; TEMP 36.2–37.8; O2SAT 91–97; BMI 18.7
--- NOTE | 2024-06-09 00:59 | XR_ITS ---
Examination: CT chest with intravenous contrast CT abdomen with intravenous contrast CT pelvis with intravenous contrast 2-D coronal and sagittal reconstructions Time of exam: 06/09/2024 0211 hrs. Indications: Sepsis today, stage IV decubitus ulcer CTDI: vol (mGy) : 9.09 DLP: (mGycm): 619 Technique: Multiple axial images of the chest, abdomen and pelvis with intravenous contrast, 3.0 mm slice thickness. Images obtained post intravenous injection Isovue 370 60 cc. 2-D sagittal and coronal reconstructions. Low dose protocols were performed. One or more of the following dose reduction techniques were used; automated exposure control, adjustment of the mA and/or KV according to patient size, use of iterative reconstruction technique. Findings: Significant thyromegaly with multiple nodules, the largest in the right lobe 27 mm Large bilateral pleural effusions No pulmonary artery filling defects Tracheal tube above the segundo Right upper lobe and bibasilar pneumonia Right chest tube with no pneumothorax No focal liver or splenic lesions Gastrostomy tube satisfactory position Mild renal scarring Heavy abdominal aortic calcification No bowel obstruction Atrophic uterus Urinary bladder contracted around a Hector catheter Large soft tissue ulcer posterior to the distal sacrum and coccyx with erosions of the distal sacral segments and all of the coccygeal segments Prominent osteopenia Impression: Significant thyromegaly with multiple nodules Large bilateral pleural effusions Pneumonia in the right upper lobe and both bases Large soft tissue ulcer posterior to the distal sacrum and coccyx with osteomyelitis distal sacral and coccygeal segments
[2024-06-09] MEDS: SODIUM CHLORIDE 0.9% 1401 ML IV (01:48)
--- NOTE | 2024-06-09 03:06 | PRELIM_ITS ---
CT scan of the chest, abdomen and pelvis with intravenous contrast (axial sections with sagittal and coronal reformats) June 09, 2024 0154 hours Clinical History: 83 yo chronic effusion, stage 4 decub ulcer Comparison: No prior study is available for comparison. Findings: There is right upper lobe patchy consolidation. There is bilateral moderate to marked pleural effusion with compression atelectasis of underlying lung lobes. There is right chest tube with tip seen at anterior mediastinum. There is no pneumothorax. Tracheostomy tube is seen in place There is atheromatous calcification of thoracic aorta without evidence of dissection or aneurysm. There is mild mediastinal lymphadenopathy.There is no pericardial effusion. There is mild the cardiomegaly. Coronary calcification is present. Large heterogenous thyroid gland lobes more at right side; it demonstrates multiple hypodense nodules and calcification suggestive of nodular goiter for ultrasound evaluation. Percutaneous gastrostomy tube is noted. There is moderate hepatomegaly with fatty infiltration. Gallbladder is surgically absent The spleen, pancreas, adrenals and kidneys are unremarkable. No evidence of bowel obstruction. The appendix is not visualized. There is wall thickening of the rectum and sigmoid colon with surrounding fat stranding suggestive of proctocolitis. A moderate amount of fecal material is present in the colon. There is moderate to severe atheromatous calcification of aorta and its branches. A Hector catheter is seen in the urinary bladder. The uterus and adnexa are unremarkable. There is no free fluid or air. There is sacral decubitus ulcer with related skin thickening and subcutaneous fat stranding. Bony erosive changes at the distal coccygeal segment suggestive of acute osteomyelitis Degenerative changes are identified in the spine. Impression: Right upper lobe patchy consolidation. Suspicious of pneumonia recommend clinical correlation. Bilateral moderate to marked pleural effusion Wall thickening of the rectum and sigmoid colon with surrounding fat stranding suggestive of proctocolitis Sacral decubitus ulcer with related bony erosive changes of the distal coccygeal segment suggestive of acute osteomyelitis Other findings as described above. Report Electronically Signed By: Shawn Burns 06/09/2024 3:04:48 AM [EST]
--- NOTE | 2024-06-09 03:45 | PD.RESHP ---
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 The patient is nonverbal at baseline, and was recently discharged from [facility] last week. History was obtained from chart review. In the ED her vitals were significant for temperature 103.5, pulse rate 118, RR 24, saturating 90% on FiO2 40% by blow-by. Labs were significant for white count 16.4, hemoglobin 8.8, sodium 135, chloride 97, BUN 41, creatinine 0.9, troponin 0.190, BNP 816, albumin 3.1, and lipase 63. UA revealed protein 3+, blood 1+, RBC 35, and was negative for UTI. The patient met 4/4 SIRS criteria, with source of infection as pneumonia, troponin elevating to 0.190 and was admitted to telemetry unit for further management of sepsis secondary to pneumonia. 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 Seizure disorder Atrial fibrillation?paroxysmal Primary hypertension Insulin-dependent diabetes mellitus type 2 Medication list: Atorvastatin 80 Mg gt at bedtime Acetaminophen 325 mg DuoNebs Amiodarone 200 Mg GT twice daily Amlodipine 10 Mg GT daily Acetylcysteine 100 Mg/mL 2ml via feeding tube every 8 Insulin (sliding scale Metoprolol tartrate 25 Mg GT Lactulose 10 g every 6 hourly- Past surgical history: Unknown Allergies: NKFDA Social history: Unable to be obtained unknown Family History: Unknown Exam Vital Signs Temp Pulse Resp BP Pulse Ox O2 Del Method O2 Flow Rate 100.1 F 75 24 H 106/50 L 92 L Trach Collar 9 06/09/24 00:58 06/09/24 00:58 06/09/24 00:58 06/09/24 00:58 06/09/24 00:58 06/09/24 00:58 06/09/24 00:58 FiO2 40 06/08/24 21:38 Narrative Exam General: Elderly female, no acute distress, Alert and Oriented x 0 HEENT: Moist mucous membranes, oropharynx clear Neck: Supple, No masses, No JVD CVS: S1S2 Regular rate and rhythm, No murmurs, rubs or gallops Lungs: Clear to auscultation with no accessory use, no wheeze, coarse rhonchi appreciated throughout the lung field Abd: Soft, NT/ND, +BS, no organomegaly, sacral ulcer present Ext: No edema, warm and well perfused Skin: No rash Psych: Unobtainable Results: Labs 06/09/24 04:24 06/09/24 04:24 Labs: Short CBC 06/08/24 Range/Units 21:55 WBC 16.4 H (3.6-11.0) Thou/mm3 Hgb 8.8 L (12.0-16.0) g/dL Hct 26.9 L (36.0-46.0) % Plt Count 454 H (140-440) Thou/mm3 BMP 06/08/24 21:55 Sodium 135 L Potassium 4.8 Chloride 97 L Carbon Dioxide 29.6 BUN 41 H Creatinine 0.9 Glucose 117 H Calcium 8.7 Cardiac Enzymes 06/08/24 Range/Units 21:55 Troponin I 0.190 H* (0.0-0.045) ng/mL Liver Function 06/08/24 Range/Units 21:55 Total Bilirubin 0.4 (0.3-1.2) mg/dL AST 33 (0-34) U/L ALT 26 (10-49) U/L Alkaline Phosphatase 82 (46-116) U/L Albumin 3.1 L (3.4-4.8) gm/dL Urine 06/08/24 Range/Units 22:01 Urine Color Yellow (Lt Yel-Yel) Urine Clarity Clear (Clear/Hazy) Urine pH 7.5 H (5.0-7.0) Ur Specific [place] 1.017 (1.001-1.035) Urine Protein 3+ A (Neg - Trace) Urine Glucose (UA) Negative (Negative) Quality Measures Quality Measures sepsis Current suspected stage: sepsis Possible source: pulmonary Blood cultures ordered: yes Antibiotic ordered: Yes Advance care planning discussed with:: other Medications Home Medications and Allergies Home Medications ?Medication ?Instructions ?Recorded ?Confirmed ?Type acetaminophen 325 mg tablet 325 mg feeding tube Q6H PRN fever 04/25/24 05/20/24 History or pain amiodarone 200 mg tablet 200 mg feeding tube DAILY 04/25/24 05/20/24 History amlodipine 10 mg tablet 10 mg feeding tube QDAY 04/25/24 05/20/24 History apixaban 2.5 mg tablet (Eliquis) 2.5 mg feeding tube BID 04/25/24 05/20/24 History Held on 05/30/24. Instructions: Resume on 06/08/24. Hold until Hgb stable and no evidence of GI bleed atorvastatin 80 mg tablet 80 mg feeding tube HS 04/25/24 05/20/24 History bisacodyl 5 mg tablet,delayed 5 mg feeding tube Q6H PRN 04/25/24 05/20/24 History release (Gentle Laxative constipation (bisacodyl)) insulin regular human 100 unit/mL 1 sliding scale dose subcut Q6H 04/25/24 05/20/24 History (3 mL) subcutaneous pen (Novolin R FlexPen) ipratropium 0.5 mg-albuterol 3 mg 3 ml inhalation Q6H PRN shortness 04/25/24 05/20/24 History (2.5 mg base)/3 mL nebulization of breath soln lactulose 10 gram/15 mL oral 10 g feeding tube Q6H 04/25/24 05/20/24 History solution (Enulose) metoprolol tartrate 25 mg tablet 25 mg feeding tube Q12H 04/25/24 05/20/24 History calcium 600 mg (as 1 cap PO DAILY 05/20/24 05/20/24 History carbonate)-vitamin D3 5 mcg (200 unit) capsule (Calcium 600 + D(3)) sennosides 8.6 mg tablet 8.6 mg feeding tube BID 05/20/24 05/20/24 History (Black-Draught Lax-Senna) Allergies Allergy/AdvReac Type Severity Reaction Status Date / Time No Known Allergies Allergy Verified 05/25/24 08:41 Visit Medications Discontinued Medications Piperacillin/Tazobactam/Dextrose (Zosyn) 3.375 gm in 50 mls @ 100 mls/hr IV X1 ONE Stop: 06/08/24 22:11 Last Infusion: 06/08/24 22:25 Dose: Infused Sodium Chloride (Ns) 1,401 mls @ 1,401 mls/hr 30 ml/kg infuse over 60 min (1401 ml) IV .Q1H ONE; Protocol Stop: 06/09/24 01:13 Last Admin: 06/09/24 01:48 Dose: 1,401 mls/hr Assessment & Plan Plan The patient is a 83-year-old female with significant past medical history of 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 The patient met 4/4 SIRS criteria, with source of infection as pneumonia, troponin elevating to 0.190 and was admitted to telemetry unit for further management of sepsis secondary to pneumonia. #Acute hypoxic respiratory failure 2/2 #Sepsis secondary to pneumonia #HCA Pneumonia The pt was brought in to the ED from subacute rehab for fever of 103 degree F, was found to have 4/4 SIRS positive with temperature 103.5, pulse rate 118, RR 24, saturating 90% on FiO2 40% by blow-by. Labs were significant for white count 16.4, troponin 0.190, BNP 816. CXR significant for pneumonia -Started on Zosyn 3.375 Q6h -BCx and Urine Cx ordered -30cc/kg NS bolus was given -O2 as needed through blow-by -CT chest/abd/pel sepsis protocol ordered by ED physician -Tylenol as needed for fever -Duoneb Q6H as needed for wheezing -Daily labs for CBC, CMP and electrolytes #Essential hypertension #Atrial fibrillation #NSTEMI likely type II #Hyperlipidemia -Holding antihypertensive in the setting of sepsis -Started on amiodarone 200 Mg daily -Trend troponin until delta is received -Started on atorvastatin 80 Mg daily #IDDM type II -Monitor BMP for now, may start on SSI if needed #Deep sacral ulcer -Wound care consulted #Chronic constipation -Lactulose 10 g daily as needed Health maintenance: Dispo: Patient admitted to telemetry unit for further management of acute hypoxic respiratory failure 2/2 sepsis secondary to Pneumonia DVT prophylaxis: Subcu heparin Diet: We will resume PEG tube feeding in the morning CODE STATUS: DNR The patient's management plan was discussed with my attending physician MD Benjamin Bryson MD, PGY2 Attending Provider Attestation/Addendum 83-year-old female with chronic atrial fibrillation, 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 The patient has HCAP. She will be started on antibiotic treatment. Follow culture results. Blood pressure stable. She will continue on amiodarone for A-fib. Discussed with housestaff
[2024-06-09 05:16] LABS: Basophils # (Auto) 0.1 Thou/mm3 (0.0-0.2); Basophils % (Auto) 1 % (0-2.5); Eosinophils # (Auto) 0.1 Thou/mm3 (0.0-0.5); Eosinophils % (Auto) 0 % (0-10); Hematocrit 27.5 % (36.0-46.0); Hemoglobin 8.9 g/dL (12.0-16.0); Immature Granulocytes % (Auto) 0 % (0-0); Immature Granulocytes Auto 0.06 Thou/mm3 (0.00-0.00); Lymphocytes # (Auto) 1.3 Thou/mm3 (1.0-4.8); Lymphocytes % (Auto) 8 % (10-50); Mean Corpuscular HGB Conc 32.4 g/dl (31.0-37.0); Mean Corpuscular Hemoglobin 27.7 pg (25.0-35.0); Mean Corpuscular Volume 86 fL (80-100); Monocytes # (Auto) 1.5 Thou/mm3 (0.0-0.8); Monocytes % (Auto) 10 % (0-12); Neutrophils # (Auto) 12.1 Thou/mm3 (1.8-7.7); Neutrophils % (Auto) 81 % (37-80); Nucleated Red Blood Cell % 0 /100 WBC (0); Platelet Count 426 Thou/mm3 (140-440); RDW Standard Deviation 46.2 fL (36.4-46.3); Red Blood Count 3.21 Miln/mm3 (4.00-5.20); White Blood Count 15.1 Thou/mm3 (3.6-11.0)
[2024-06-09 05:51] LABS: Alanine Aminotransferase 23 U/L (10-49); Albumin, Serum 2.9 gm/dL (3.4-4.8); Albumin/Globulin Ratio 0.9 (1.2-2.2); Alkaline Phosphatase 76 U/L (46-116); Anion Gap 10 (7-16); Aspartate Amino Transferase 22 U/L (0-34); BUN/Creatinine Ratio 40 Ratio (12-20); Bilirubin,Total 0.4 mg/dL (0.3-1.2); Blood Urea Nitrogen 36 mg/dL (9-23); Calcium (Corrected) 8.9 mg/dL (8.5-10.1); Carbon Dioxide 28.2 mMol/L (20.0-31.0); Chloride 96 mMol/L (98-107); Creatinine (Component) 0.9 mg/dL (0.6-1.3); Globulin 3.4 gm/dL (2.3-3.5); Glucose 118 mg/dL (74-106); Magnesium 2.2 mg/dL (1.6-2.6); Osmolality,Calculated 277 (275-295); Potassium 4.6 mMol/L (3.4-5.1); Sodium 134 mMol/L (136-145); Thyroid Stimulating Hormone 0.41 uIU/mL (0.55-4.78); Total Protein 6.3 gm/dL (5.7-8.2); eGFR > 60 See Note
[2024-06-09 05:57] LABS: Troponin I 0.524 ng/mL (0.0-0.045)
[2024-06-09] MEDS: ATORVASTATIN CALCIUM 20 MG TABLET 80 MG GT (05:58)
[2024-06-09] MEDS: PIPER/TAZO INJ 3.375 GM in SODIUM CHLORIDE 0.9% (Popper) 50 ML IV (05:58)
[2024-06-09] MEDS: ALBUTEROL/IPRATROPIUM (Duoneb) RT SOL 3 ML NEBU INH (07:22)
[2024-06-09 11:30] LABS: Troponin I 0.518 ng/mL (0.0-0.045)
[2024-06-09] MEDS: AMIODARONE HCL 200 MG TABLET GT (11:32)
[2024-06-09] MEDS: HEPARIN SOD INJ 5000 UNIT/ML VIAL SC ×2 (11:32→21:41)
--- NOTE | 2024-06-09 11:51 | PC.NURSE ---
Patient was assessed, pt is alert but does not follow commands, which is her baseline. Pt is from subacute and was recently discharged from [place]. Pt is on chronic trache and peg tube. Currently trache is on blow-by 10L 40%.
--- NOTE | 2024-06-09 14:01 | ESPR_ITS ---
Documentation for date of: 06/09/24 Subjective Subjective Interval history: Patient was seen and examined by the bedside. No acute overnight events. Patient is afebrile, saturates well on blow-by. Does not follow commands. CT report showed significant bilateral pleural effusion. US guided thoracocentesis is pending. Will continue with antibiotics. Exam Vital Signs Temp Pulse Resp BP Pulse Ox O2 Del Method O2 Flow Rate 99.7 F 81 26 H 138/63 H 95 Trach Collar 12 06/09/24 12:59 06/09/24 12:59 06/09/24 12:59 06/09/24 12:59 06/09/24 12:59 06/09/24 12:59 06/09/24 12:59 FiO2 40 06/09/24 12:59 Narrative Exam Physical Exam General: Awake and in no acute distress. Nonverbal (tracheostomy). HEENT: Normocephalic, atraumatic, mucous membranes moist. Heart: Regular rate and rhythm, no murmurs. Lungs: Diffuse rhonchi. Respiratory sounds are decreased in the lower chest area. Pleurx cath site unremarkable. Abdomen: Soft, nondistended, nontender, positive bowel sounds. ?No guarding or rebound tenderness. Neurologic: Alert and oriented x0, no gross neurological deficit, does not follow commands. Extremities: No edema. Skin: No rash or ecchymoses. Objective Labs 06/10/24 05:22 06/10/24 05:22 Labs: Laboratory Results - last 24 hr 06/08/24 06/08/24 06/09/24 21:55 22:01 04:24 WBC 16.4 H 15.1 H RBC 3.20 L 3.21 L Hgb 8.8 L 8.9 L Hct 26.9 L 27.5 L MCV 84 86 MCH 27.5 27.7 MCHC 32.7 32.4 RDW Std Deviation 45.4 46.2 Plt Count 454 H 426 Neut % (Auto) 92 H 81 H Lymph % (Auto) 2 L 8 L [place] % (Auto) 5 10 Eos % (Auto) 0 0 Baso % (Auto) 1 1 Neut # (Auto) 15.1 H 12.1 H Lymph # (Auto) 0.3 L 1.3 [place] # (Auto) 0.8 1.5 H Eos # (Auto) 0.0 0.1 Baso # (Auto) 0.1 0.1 Immature Gran # (Auto) 0.08 H 0.06 H Absolute Nucleated RBC 0.00 0.00 Immature Gran % 1 H 0 Nucleated RBC % 0 0 PT 11.9 INR 1.1 APTT 31.7 Sodium 135 L 134 L Potassium 4.8 4.6 Chloride 97 L 96 L Carbon Dioxide 29.6 28.2 Anion Gap 8 10 BUN 41 H 36 H Creatinine 0.9 0.9 Estim Creat Clear Calc 34.0 L 34.0 L eGFR > 60 > 60 BUN/Creatinine Ratio 46 H 40 H Glucose 117 H 118 H Calculated Osmolality 281 277 Lactic Acid 2.0 Calcium 8.7 8.0 L Corrected Calcium 9.4 8.9 Phosphorus 4.1 Magnesium 2.1 2.2 Total Bilirubin 0.4 0.4 AST 33 22 ALT 26 23 Alkaline Phosphatase 82 76 Lactate Dehydrogenase 222 Troponin I 0.190 H* 0.524 H* D B-Natriuretic Peptide 816 H* Total Protein 6.8 6.3 Albumin 3.1 L 2.9 L Globulin 3.7 H 3.4 Albumin/Globulin Ratio 0.8 L 0.9 L Lipase 63 H Procalcitonin 0.40 TSH 0.41 L Ur Collection Type Clean Catch Urine Color Yellow Urine Clarity Clear Urine pH 7.5 H Ur Specific [place] 1.017 Urine Protein 3+ A Urine Glucose (UA) Negative Urine Ketones Negative Urine Blood 1+ A Urine Nitrite Negative Urine Bilirubin Negative Urine Urobilinogen (Auto) 2.0 Ur Leukocyte Esterase Negative Urine RBC 35 H Urine WBC 3 Ur Squamous Epith Cells < 1 Urine Bacteria None 06/09/24 10:47 WBC RBC Hgb Hct MCV MCH MCHC RDW Std Deviation Plt Count Neut % (Auto) Lymph % (Auto) [place] % (Auto) Eos % (Auto) Baso % (Auto) Neut # (Auto) Lymph # (Auto) [place] # (Auto) Eos # (Auto) Baso # (Auto) Immature Gran # (Auto) Absolute Nucleated RBC Immature Gran % Nucleated RBC % PT INR APTT Sodium Potassium Chloride Carbon Dioxide Anion Gap BUN Creatinine Estim Creat Clear Calc eGFR BUN/Creatinine Ratio Glucose Calculated Osmolality Lactic Acid Calcium Corrected Calcium Phosphorus Magnesium Total Bilirubin AST ALT Alkaline Phosphatase Lactate Dehydrogenase Troponin I 0.518 H* B-Natriuretic Peptide Total Protein Albumin Globulin Albumin/Globulin Ratio Lipase Procalcitonin TSH Ur Collection Type Urine Color Urine Clarity Urine pH Ur Specific [place] Urine Protein Urine Glucose (UA) Urine Ketones Urine Blood Urine Nitrite Urine Bilirubin Urine Urobilinogen (Auto) Ur Leukocyte Esterase Urine RBC Urine WBC Ur Squamous Epith Cells Urine Bacteria Quality Measures Quality Measures sepsis Current suspected stage: sepsis Possible source: pulmonary, GI tract/intra-abdominal, genitourinary and skin/soft tissue Blood cultures ordered: completed in ED Antibiotic ordered: Yes Advance care planning discussed with:: other Assessment & Plan Assessment Current Active Medications: Generic Name Dose Route Start Last Admin Trade Name Freq PRN Reason Stop Dose Admin Acetaminophen 650 mg 06/09/24 03:52 Acetaminophen 325 Mg Tablet PO 07/09/24 03:51 Q6H PRN Fever >101.5 Protocol Acetaminophen 650 mg 06/09/24 03:52 Acetaminophen Supp 650 Mg Supp MT 07/09/24 03:51 Q6HR PRN Fever > 100.5 Protocol Albuterol/Ipratropium 3 ml 06/09/24 03:46 06/09/24 07:22 Albuterol/Ipratropium (Duoneb) Rt Viviana 3 Ml Nebu INH 07/09/24 06:59 3 ml Q6HRRT PRN Administration Wheeze Amiodarone HCl 200 mg 06/09/24 09:00 06/09/24 11:32 Amiodarone Hcl 200 Mg Tablet GT 07/09/24 08:59 200 mg QDAY AMARJIT Administration Furosemide 40 mg 06/09/24 18:00 Furosemide Inj 10 Mg/Ml 4ml Vial IVP 07/09/24 17:59 BIDD AMARJIT Heparin Sodium (Porcine) 5,000 unit 06/09/24 09:00 06/09/24 11:32 Heparin Sod Inj 5000 Unit/Ml Vial SC 06/23/24 08:59 5,000 unit Q12HR AMARJIT Administration Piperacillin Sod/Tazobactam 50 mls @ 12.5 mls/hr 06/09/24 06:00 06/09/24 11:57 Sod 3.375 gm/ Sodium Chloride IV 06/16/24 05:59 Infused Q8HR AMARJIT Infusion Protocol Lactulose 10 gm 06/09/24 04:43 Lactulose Syrup 20 Gm/30 Ml Udc PO 07/09/24 08:59 QDAY PRN constipation Protocol Plan The patient is a 83-year-old female with significant past medical history of 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 The patient met 4/4 SIRS criteria, with source of infection as pneumonia, troponin elevating to 0.190 and was admitted to telemetry unit for further management of sepsis secondary to pneumonia. #Acute hypoxic respiratory failure 2/2 #Sepsis secondary to pneumonia #Bilateral pleural effusions #VAP Pneumonia The pt was brought in to the ED from subacute rehab for fever of 103 degree F, was found to have 4/4 SIRS positive with temperature 103.5, pulse rate 118, RR 24, saturating 90% on FiO2 40% by blow-by. Labs were significant for white count 16.4, troponin 0.190, BNP 816. CXR significant for pneumonia. 06/10/23: CT chest/abd/pel:Significant thyromegaly with multiple nodules. Large bilateral pleural effusions. Pneumonia in the right upper lobe and both bases. Large soft tissue ulcer posterior to the distal sacrum and coccyx with osteomyelitis distal sacral and coccygeal segments. IR guided thoracocentesis ordered. Plan: -Zosyn 3.375 Q6h 06/09-current -Blood cultures and urine cultures pending -O2 as needed through blow-by -Tylenol as needed for fever -Duoneb Q6H as needed for wheezing #Essential hypertension #Atrial fibrillation #NSTEMI likely type II #Hyperlipidemia Troponin elevation most likely due to demand ischemia due to sepsis. Plan: -Holding antihypertensives for now due to normal blood pressure -Amiodarone 200 Mg daily -Troponin I peaked at 0.524, will stop trending. -Atorvastatin 80 Mg daily - Fluid restriction 1500 day #IDDM type II -ISS -Hypoglycemia protocol #Deep sacral ulcer -Wound care consulted #Chronic constipation -Lactulose 10 g daily as needed Health maintenance: Dispo:telemetry DVT prophylaxis: heparin sc Diet: tube feeds, fluid restriction 1500 cc/day CODE STATUS: DNR Plan of care discussed with attending Dr. Figueroa and PGY-[address] Farah. Amarilys Valdez MD, PGY 1. Attending Provider Attestation/Addendum I reviewed labs, imaging, EKG, home medications and prior available records. Face to face evaluation was performed by me. I have personally examined the patient and discussed assessment and plan with the IM team. I reviewed the resident note and agree with the plan with exceptions as below. Acute on chronic hypoxic respiratory failure Bilateral pleural effusions Status post tracheostomy Acute febrile illness Healthcare associated pneumonia CHF exacerbation Non-STEMI Started IV diuresis Started IV Zosyn Trend WBC Follow-up cultures Consulted IR for pleurocentesis Trend troponin Discussed with family: Wants SNF with hospice services, preferred at [place]
--- NOTE | 2024-06-09 15:08 | PC.NURSE ---
Handoff report given to Felix MONROY, pt is currently in stable condition, VSS.
--- NOTE | 2024-06-09 15:51 | PC.DIETICIAN ---
Nutrition Prescription: 1. Glucerna 1.2 at 30 ml/hr via PEG tube by pump. Advance 10 ml every 12 hrs to goal rate of 50 ml/hr x 22 hrs. If no IV fluids, water flushes of 25 ml/hr (or per MD). 2. Recommend Js 1 pkt once daily mixed with 6-8 oz water via G tube (unflavored).
[2024-06-09] MEDS: PIPER/TAZO 3.375 GM PREMIX 3.375 GM/50 ML BAG IV ×2 (17:51→22:13)
[2024-06-09] MEDS: FUROSEMIDE INJ 10 MG/ML 4ML VIAL 40 MG IVP (18:00)
[2024-06-10] VITALS (16 sets, daily range): BP systolic 102–140; BP diastolic 58–80; PULSE 81–102; RESP 20–33; TEMP 36.3–37.3; O2SAT 94–100
[2024-06-10] MEDS: INSULIN LISPRO (AdmeLOG) 1 UNIT/0.01 ML UNIT SC ×5 (00:38→23:19)
[2024-06-10] MEDS: PIPER/TAZO 3.375 GM PREMIX 3.375 GM/50 ML BAG IV ×3 (05:44→20:59)
[2024-06-10] MEDS: FUROSEMIDE INJ 10 MG/ML 4ML VIAL 40 MG IVP ×2 (05:44→17:59)
[2024-06-10 05:50] LABS: Basophils # (Auto) 0.1 Thou/mm3 (0.0-0.2); Basophils % (Auto) 1 % (0-2.5); Eosinophils % (Auto) 0 % (0-10); Hematocrit 27.2 % (36.0-46.0); Hemoglobin 8.9 g/dL (12.0-16.0); Immature Granulocytes % (Auto) 0 % (0-0); Immature Granulocytes Auto 0.04 Thou/mm3 (0.00-0.00); Lymphocytes # (Auto) 0.8 Thou/mm3 (1.0-4.8); Lymphocytes % (Auto) 6 % (10-50); Mean Corpuscular HGB Conc 32.7 g/dl (31.0-37.0); Mean Corpuscular Hemoglobin 27.7 pg (25.0-35.0); Mean Corpuscular Volume 85 fL (80-100); Monocytes # (Auto) 1.2 Thou/mm3 (0.0-0.8); Monocytes % (Auto) 10 % (0-12); Neutrophils # (Auto) 10.7 Thou/mm3 (1.8-7.7); Neutrophils % (Auto) 84 % (37-80); Nucleated Red Blood Cell % 0 /100 WBC (0); Platelet Count 429 Thou/mm3 (140-440); RDW Standard Deviation 46.2 fL (36.4-46.3); Red Blood Count 3.21 Miln/mm3 (4.00-5.20); White Blood Count 12.8 Thou/mm3 (3.6-11.0)
[2024-06-10 06:20] LABS: Alanine Aminotransferase 25 U/L (10-49); Albumin/Globulin Ratio 0.9 (1.2-2.2); Alkaline Phosphatase 84 U/L (46-116); Anion Gap 10 (7-16); Aspartate Amino Transferase 26 U/L (0-34); BUN/Creatinine Ratio 34 Ratio (12-20); Bilirubin,Total 0.4 mg/dL (0.3-1.2); Blood Urea Nitrogen 34 mg/dL (9-23); Calcium 8.2 mg/dL (8.3-10.6); Carbon Dioxide 28.1 mMol/L (20.0-31.0); Chloride 97 mMol/L (98-107); Estimated Creatinine Clearance 31.8 mL/min (>60); Globulin 3.4 gm/dL (2.3-3.5); Glucose 193 mg/dL (74-106); Magnesium 2.1 mg/dL (1.6-2.6); Osmolality,Calculated 282 (275-295); Phosphorous 3.9 mg/dL (2.4-5.1); Potassium 4.3 mMol/L (3.4-5.1); Sodium 135 mMol/L (136-145); Total Protein 6.4 gm/dL (5.7-8.2); eGFR 56 See Note
--- NOTE | 2024-06-10 09:52 | PC.SS ---
Rounding note: ultrasound pending for 06/11/24, patient is currently diuresing and will have thoracentesis. Dr. Farshad Farah informed SS patient may need Sub Acute in [place].
[2024-06-10] MEDS: AMIODARONE HCL 200 MG TABLET GT (10:00)
[2024-06-10] MEDS: HEPARIN SOD INJ 5000 UNIT/ML VIAL SC ×2 (10:00→20:59)
--- NOTE | 2024-06-10 11:40 | PC.NURSE ---
Dr. Valdez at bedside, performing bedside thoracentesis via pleurx, approx 1 lilter removed, pt tolerated well.
--- NOTE | 2024-06-10 13:03 | XR_ITS ---
Examination: AP chest single view Technique one AP portable semiupright chest single view Exam date and time: 04/12/2024 12:40 PM Comparison June 08, 2024 Indications: Difficulty breathing this week. Findings: Severe opacification left hemithorax Stable position tracheostomy tube tip Atelectasis in the left lung Moderate right lung vascular congestion Prominent osteopenia Impression: Atelectasis and/or pneumonia left lung with pleural disease, recommend ultrasound left hemithorax follow-up
--- NOTE | 2024-06-10 16:25 | ESPR_ITS ---
<Statement entered by Angelina Moreno MD - 06/11/24 07:44> Patient was seen and examined by me personally. I have directly supervised and reviewed documentation by the team resident and agree with its findings with any exceptions or additional findings as below. Plan of care was discussed with the attending, Dr. Figueroa. Patient had 1L of opaque fluid output via Pleur-X right sided catheter done by resident team at bedside. Follow up CXR showed good result. Plan for L sided Pleur-X catheter placement tomorrow via IR. Angelina Moreno, PGY-2 Documentation for date of: 06/10/24 Subjective Subjective Interval history: Patient was seen and examined by the bedside. No acute overnight events. Patient is opening eyes to the voice. Saturated well on trach collar 10 L. PleurX cathether on the left side was drained using PleurX kit, 1 L was removed. Fluid was purulent. Patient tolerated the procedure well, post draining chest Xray was negative for pneumothorax, showed significant improvement in fluid level and lung expansion. IR guided right sided PleurX catheter placement ordered for tomorrow. Exam Vital Signs Temp Pulse Resp BP Pulse Ox O2 Del Method O2 Flow Rate 99.2 F 90 21 H 131/62 H 94 L Blow-by 10 06/10/24 12:00 06/10/24 12:00 06/10/24 12:00 06/10/24 12:00 06/10/24 12:00 06/10/24 12:00 06/10/24 08:00 FiO2 40 06/10/24 08:00 Narrative Exam Physical Exam General: Awake and in no acute distress. Nonverbal (tracheostomy). HEENT: Normocephalic, atraumatic, mucous membranes moist. Heart: Regular rate and rhythm, no murmurs. Lungs: Diffuse rhonchi. Respiratory sounds are decreased in the lower chest area. Pleurx cath site unremarkable. Abdomen: Soft, nondistended, nontender, positive bowel sounds. ?No guarding or rebound tenderness. Neurologic: Alert and oriented x0, no gross neurological deficit, does not follow commands. Extremities: No edema. Skin: No rash or ecchymoses. Objective Labs 06/11/24 04:30 06/11/24 04:30 Labs: Laboratory Results - last 24 hr 06/10/24 05:22 WBC 12.8 H RBC 3.21 L Hgb 8.9 L Hct 27.2 L MCV 85 MCH 27.7 MCHC 32.7 RDW Std Deviation 46.2 Plt Count 429 Neut % (Auto) 84 H Lymph % (Auto) 6 L [place] % (Auto) 10 Eos % (Auto) 0 Baso % (Auto) 1 Neut # (Auto) 10.7 H Lymph # (Auto) 0.8 L [place] # (Auto) 1.2 H Eos # (Auto) 0.0 Baso # (Auto) 0.1 Immature Gran # (Auto) 0.04 H Absolute Nucleated RBC 0.00 Immature Gran % 0 Nucleated RBC % 0 Sodium 135 L Potassium 4.3 Chloride 97 L Carbon Dioxide 28.1 Anion Gap 10 BUN 34 H Creatinine 1.0 Estim Creat Clear Calc 31.8 L eGFR 56 L BUN/Creatinine Ratio 34 H Glucose 193 H D Calculated Osmolality 282 Calcium 8.2 L Corrected Calcium 9.0 Phosphorus 3.9 Magnesium 2.1 Total Bilirubin 0.4 AST 26 ALT 25 Alkaline Phosphatase 84 Total Protein 6.4 Albumin 3.0 L Globulin 3.4 Albumin/Globulin Ratio 0.9 L Quality Measures Quality Measures sepsis Current suspected stage: sepsis Possible source: pulmonary, GI tract/intra-abdominal, genitourinary and skin/soft tissue Blood cultures ordered: completed in ED Antibiotic ordered: Yes Advance care planning discussed with:: other Assessment & Plan Assessment Current Active Medications: Generic Name Dose Route Start Last Admin Trade Name Freq PRN Reason Stop Dose Admin Acetaminophen 650 mg 06/09/24 03:52 Acetaminophen 325 Mg Tablet PO 07/09/24 03:51 Q6H PRN Fever >101.5 Acetaminophen 650 mg 06/09/24 03:52 Acetaminophen Supp 650 Mg Supp MS 07/09/24 03:51 Q6HR PRN Fever > 100.5 Protocol Albuterol/Ipratropium 3 ml 06/09/24 03:46 06/09/24 07:22 Albuterol/Ipratropium (Duoneb) Rt Viviana 3 Ml Nebu INH 07/09/24 06:59 3 ml Q6HRRT PRN Administration Wheeze Amiodarone HCl 200 mg 06/09/24 09:00 06/10/24 10:00 Amiodarone Hcl 200 Mg Tablet GT 07/09/24 08:59 200 mg QDAY AMARJIT Administration Dextrose 25 ml 06/09/24 15:22 Dextrose 50%-Water Inj 50 Ml Syringe IV 07/09/24 15:21 Q15MIN PRN BG 50-70 responsive npo pt Dextrose 50 ml 06/09/24 15:22 Dextrose 50%-Water Inj 50 Ml Syringe IV 07/09/24 15:21 Q15MIN PRN BG <50 OR BG <70 & pt unresponsive Furosemide 40 mg 06/09/24 18:00 06/10/24 05:44 Furosemide Inj 10 Mg/Ml 4ml Vial IVP 07/09/24 17:59 40 mg BIDD AMARJIT Administration Glucagon 1 mg 06/09/24 15:22 Glucagon Inj 1 Mg Vial IM Q15MIN PRN BG <70, and no IV access Heparin Sodium (Porcine) 5,000 unit 06/09/24 09:00 06/10/24 10:00 Heparin Sod Inj 5000 Unit/Ml Vial SC 06/23/24 08:59 5,000 unit Q12HR AMARJIT Administration Piperacillin/Tazobactam/Dextrose 3.375 gm in 50 mls @ 12.5 mls/hr 06/09/24 15:30 06/10/24 13:25 Zosyn IV 06/16/24 05:59 12.5 mls/hr Q8HR AMARJIT Administration Insulin Human Lispro 0 unit 06/09/24 18:00 06/10/24 13:25 Insulin Lispro (Admelog) 1 Unit/0.01 Ml Unit SC 07/09/24 17:59 2 unit Q6HR AMARJIT Administration Protocol Lactulose 10 gm 06/09/24 04:43 Lactulose Syrup 20 Gm/30 Ml Udc PO 07/09/24 08:59 QDAY PRN constipation Protocol Plan The patient is a 83-year-old female with significant past medical history of 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 The patient met 4/4 SIRS criteria, with source of infection as pneumonia, troponin elevating to 0.190 and was admitted to telemetry unit for further management of sepsis secondary to pneumonia. #Acute hypoxic respiratory failure 2/2 #Sepsis secondary to pneumonia #Bilateral pleural effusions #VAP Pneumonia The pt was brought in to the ED from subacute rehab for fever of 103 degree F, was found to have 4/4 SIRS positive with temperature 103.5, pulse rate 118, RR 24, saturating 90% on FiO2 40% by blow-by. Labs were significant for white count 16.4, troponin 0.190, BNP 816. CXR significant for pneumonia. 06/10/23: CT chest/abd/pel:Significant thyromegaly with multiple nodules. Large bilateral pleural effusions. Pneumonia in the right upper lobe and both bases. Large soft tissue ulcer posterior to the distal sacrum and coccyx with osteomyelitis distal sacral and coccygeal segments. 06/11/23: Left pleural effusion was drained through PleurX, drined 1000 ml. IR guided thoracocentesis ordered for 06/10/2024. Plan: -Zosyn 3.375 Q6h 06/09-current -Blood cultures and urine cultures pending -O2 as needed through blow-by -Tylenol as needed for fever -Duoneb Q6H as needed for wheezing #Essential hypertension #Atrial fibrillation #NSTEMI likely type II #Hyperlipidemia Troponin elevation most likely due to demand ischemia due to sepsis. Plan: -Holding antihypertensives for now due to normal blood pressure -Amiodarone 200 Mg daily -Troponin I peaked at 0.524, will stop trending. -Atorvastatin 80 Mg daily - Fluid restriction 1500 day #IDDM type II -ISS -Hypoglycemia protocol #Deep sacral ulcer -Wound care consulted #Chronic constipation -Lactulose 10 g daily as needed Health maintenance: Dispo:telemetry DVT prophylaxis: heparin sc Diet: tube feeds, fluid restriction 1500 cc/day CODE STATUS: DNR Plan of care discussed with attending Dr. Figueroa and PGY-[address] Farah. Amarilys Valdez MD, PGY 1. Attending Provider Attestation/Addendum I reviewed labs, imaging, EKG, home medications and prior available records. Face to face evaluation was performed by me. I have personally examined the patient and discussed assessment and plan with the IM team. I reviewed the resident note and agree with the plan with exceptions as below. Acute on chronic hypoxic respiratory failure Bilateral pleural effusions Status post tracheostomy Acute febrile illness Healthcare associated pneumonia CHF exacerbation Non-STEMI She is on oxygen via trach collar Started IV diuresis Started IV Zosyn Trend WBC Follow-up cultures Status post drainage of the right pleural fluid via the Pleurx catheter Consulted IR for pleurocentesis on the left and possible insertion of Pleurx catheter Trend troponin: Peaked Discussed with family: Wants SNF with hospice services, preferred at [place]
[2024-06-11] VITALS (11 sets, daily range): BP systolic 99–127; BP diastolic 58–71; PULSE 80–90; RESP 16–21; TEMP 36.1–36.7; O2SAT 95–100
[2024-06-11] MEDS: PIPER/TAZO 3.375 GM PREMIX 3.375 GM/50 ML BAG IV ×3 (05:20→20:59)
[2024-06-11] MEDS: INSULIN LISPRO (AdmeLOG) 1 UNIT/0.01 ML UNIT SC ×3 (05:21→17:45)
[2024-06-11] MEDS: FUROSEMIDE INJ 10 MG/ML 4ML VIAL 40 MG IVP (05:24)
[2024-06-11 06:26] LABS: Basophils # (Auto) 0.1 Thou/mm3 (0.0-0.2); Basophils % (Auto) 1 % (0-2.5); Eosinophils # (Auto) 0.1 Thou/mm3 (0.0-0.5); Eosinophils % (Auto) 1 % (0-10); Hematocrit 29.7 % (36.0-46.0); Hemoglobin 9.5 g/dL (12.0-16.0); Immature Granulocytes % (Auto) 1 % (0-0); Immature Granulocytes Auto 0.07 Thou/mm3 (0.00-0.00); Lymphocytes # (Auto) 1.6 Thou/mm3 (1.0-4.8); Lymphocytes % (Auto) 10 % (10-50); Mean Corpuscular Hemoglobin 27.5 pg (25.0-35.0); Mean Corpuscular Volume 86 fL (80-100); Monocytes % (Auto) 13 % (0-12); Neutrophils # (Auto) 11.2 Thou/mm3 (1.8-7.7); Neutrophils % (Auto) 75 % (37-80); Nucleated Red Blood Cell % 0 /100 WBC (0); Platelet Count 444 Thou/mm3 (140-440); RDW Standard Deviation 47.6 fL (36.4-46.3); Red Blood Count 3.45 Miln/mm3 (4.00-5.20)
[2024-06-11 07:02] LABS: Alanine Aminotransferase 23 U/L (10-49); Albumin/Globulin Ratio 0.8 (1.2-2.2); Alkaline Phosphatase 86 U/L (46-116); Anion Gap 11 (7-16); Aspartate Amino Transferase 25 U/L (0-34); BUN/Creatinine Ratio 35 Ratio (12-20); Bilirubin,Total 0.4 mg/dL (0.3-1.2); Blood Urea Nitrogen 38 mg/dL (9-23); Calcium 8.4 mg/dL (8.3-10.6); Calcium (Corrected) 9.2 mg/dL (8.5-10.1); Chloride 95 mMol/L (98-107); Creatinine (Component) 1.1 mg/dL (0.6-1.3); Estimated Creatinine Clearance 27.2 mL/min (>60); Globulin 3.7 gm/dL (2.3-3.5); Glucose 179 mg/dL (74-106); Osmolality,Calculated 284 (275-295); Potassium 4.1 mMol/L (3.4-5.1); Sodium 136 mMol/L (136-145); Total Protein 6.7 gm/dL (5.7-8.2); eGFR 50 See Note
[2024-06-11 08:33] LABS: INR 1.1 (0.9-1.3); Prothrombin Time 11.9 Seconds (9.0-12.2)
[2024-06-11] MEDS: HEPARIN SOD INJ 5000 UNIT/ML VIAL SC ×2 (09:03→20:54)
[2024-06-11] MEDS: AMIODARONE HCL 200 MG TABLET GT (09:03)
--- NOTE | 2024-06-11 09:04 | PC.NURSE ---
Discussed case with Dr. Dowd (pleurx drain). Per Dr. Dowd recommending a CT scan of the chest to confirm the patient continues to have fluid. Adelita Carrero made aware.
--- NOTE | 2024-06-11 10:48 | XR_ITS ---
Examination: CT chest, without intravenous contrast. Sagittal and coronal 2-D reconstructions. Exam date and time: June 11 at 1703 hrs. Indications: Congestion difficulty breathing today, history sepsis stage IV decubitus ulcers distal sacrum CTDI:vol (mGy) 11.6 DLP: (mGycm) 117 Technique: Multiple 3.0 mm axial sections of the chest to been obtained. Bone and lung density settings are obtained. Sagittal and coronal 2-D reconstructions have been obtained. Low dose protocols were performed. One or more of the following dose reduction techniques were used; automated exposure control, adjustment of the mA and/or KV according to patient size, use of iterative reconstruction technique. Findings: Thyromegaly with bilateral thyroid nodules Transverse dimension ascending thoracic aorta 3.9 cm Pulmonary artery segments are not enlarged Significant calcification left anterior descending coronary artery Bilateral pneumonia the lung bases Suspicious for 22 mm cavitary lesion anterior right upper lobe axial image 87 Small right pleural effusion Moderate left pleural effusion Moderate enlargement cardiac contour Right Pleurx catheter Liver irregular in contour Gastrostomy tube in the stomach Subcentimeter renal calculi Impression: Bilateral pneumonia Thyromegaly with bilateral thyroid nodules Suspicious for cavitary lesion, 22 mm, anterior right upper lobe Moderate left pleural effusion
--- NOTE | 2024-06-11 11:20 | PC.SS ---
SS recieved information from Team that pt family is requesting Subacute care in the [place]. SS submitted referral via [facility]. Pending responses.
--- NOTE | 2024-06-11 15:24 | PD.RESPRO ---
Documentation for date of: 06/11/24 Subjective Subjective Interval history: No acute events overnight.?Patient seen and examined at bedside this AM.?She is awake but non-interactive. Patient planned for left sided Pleur-X catheter placement with IR today. However, radiology requested CT chest prior to placement. Order placed. Labs and vitals were reviewed.?Normalized, no fevers overnight. WBC remains elevated chronically. According to family welfare social work professor there is not an active transfer process for [facility] lateral transfer, application re-initiated today, no accepting facilities thus far. Review of systems otherwise negative except what is mentioned above. Exam Vital Signs Temp Pulse Resp BP Pulse Ox O2 Del Method O2 Flow Rate 97.5 F 85 18 122/60 98 Trach Collar 10 06/11/24 12:00 06/11/24 12:00 06/11/24 12:00 06/11/24 12:00 06/11/24 12:00 06/11/24 12:00 06/11/24 12:00 FiO2 35 06/11/24 10:43 Narrative Exam Physical Exam General: Awake and in no acute distress. Nonverbal (tracheostomy). HEENT: Normocephalic, atraumatic, mucous membranes moist. Heart: Regular rate and rhythm, no murmurs. Lungs: Diffuse rhonchi. Respiratory sounds are decreased in the lower chest area. Pleurx cath site unremarkable. Abdomen: Soft, nondistended, nontender, positive bowel sounds. ?No guarding or rebound tenderness. Neurologic: Alert and oriented x0, no gross neurological deficit, does not follow commands. Extremities: No edema. Skin: No rash or ecchymoses. Objective Labs 06/12/24 03:53 06/12/24 04:10 Labs: Laboratory Results - last 24 hr 06/11/24 04:30 WBC 15.0 H RBC 3.45 L Hgb 9.5 L Hct 29.7 L MCV 86 MCH 27.5 MCHC 32.0 RDW Std Deviation 47.6 H Plt Count 444 H Neut % (Auto) 75 Lymph % (Auto) 10 [place] % (Auto) 13 H Eos % (Auto) 1 Baso % (Auto) 1 Neut # (Auto) 11.2 H Lymph # (Auto) 1.6 [place] # (Auto) 2.0 H Eos # (Auto) 0.1 Baso # (Auto) 0.1 Immature Gran # (Auto) 0.07 H Absolute Nucleated RBC 0.00 Immature Gran % 1 H Nucleated RBC % 0 PT 11.9 INR 1.1 APTT 40.0 H Sodium 136 Potassium 4.1 Chloride 95 L Carbon Dioxide 30.0 Anion Gap 11 BUN 38 H Creatinine 1.1 Estim Creat Clear Calc 27.2 L eGFR 50 L BUN/Creatinine Ratio 35 H Glucose 179 H Calculated Osmolality 284 Calcium 8.4 Corrected Calcium 9.2 Phosphorus 4.0 Magnesium 2.0 Total Bilirubin 0.4 AST 25 ALT 23 Alkaline Phosphatase 86 Total Protein 6.7 Albumin 3.0 L Globulin 3.7 H Albumin/Globulin Ratio 0.8 L Quality Measures Quality Measures sepsis Current suspected stage: ruled out Possible source: pulmonary, GI tract/intra-abdominal, genitourinary and skin/soft tissue Blood cultures ordered: completed in ED Antibiotic ordered: Yes Advance care planning discussed with:: patient Assessment & Plan Assessment Current Active Medications: Generic Name Dose Route Start Last Admin Trade Name Freq PRN Reason Stop Dose Admin Acetaminophen 650 mg 06/09/24 03:52 Acetaminophen 325 Mg Tablet PO 07/09/24 03:51 Q6H PRN Fever >101.5 Acetaminophen 650 mg 06/09/24 03:52 Acetaminophen Supp 650 Mg Supp MO 07/09/24 03:51 Q6HR PRN Fever > 100.5 Protocol Albuterol/Ipratropium 3 ml 06/09/24 03:46 06/09/24 07:22 Albuterol/Ipratropium (Duoneb) Rt Viviana 3 Ml Nebu INH 07/09/24 06:59 3 ml Q6HRRT PRN Administration Wheeze Amiodarone HCl 200 mg 06/09/24 09:00 06/11/24 09:03 Amiodarone Hcl 200 Mg Tablet GT 07/09/24 08:59 200 mg QDAY AMARJIT Administration Dextrose 25 ml 06/09/24 15:22 Dextrose 50%-Water Inj 50 Ml Syringe IV 07/09/24 15:21 Q15MIN PRN BG 50-70 responsive npo pt Dextrose 50 ml 06/09/24 15:22 Dextrose 50%-Water Inj 50 Ml Syringe IV 07/09/24 15:21 Q15MIN PRN BG <50 OR BG <70 & pt unresponsive Furosemide 40 mg 06/12/24 09:00 Furosemide Inj 10 Mg/Ml 4ml Vial IVP 07/12/24 08:59 QDAY AMARJIT Glucagon 1 mg 06/09/24 15:22 Glucagon Inj 1 Mg Vial IM Q15MIN PRN BG <70, and no IV access Heparin Sodium (Porcine) 5,000 unit 06/09/24 09:00 06/11/24 09:03 Heparin Sod Inj 5000 Unit/Ml Vial SC 06/23/24 08:59 5,000 unit Q12HR AMARJIT Administration Piperacillin/Tazobactam/Dextrose 3.375 gm in 50 mls @ 12.5 mls/hr 06/09/24 15:30 06/11/24 15:00 Zosyn IV 06/16/24 05:59 12.5 mls/hr Q8HR AMARJIT Administration Insulin Human Lispro 0 unit 06/09/24 18:00 06/11/24 13:05 Insulin Lispro (Admelog) 1 Unit/0.01 Ml Unit SC 07/09/24 17:59 2 unit Q6HR AMARJIT Administration Protocol Lactulose 10 gm 06/09/24 04:43 Lactulose Syrup 20 Gm/30 Ml Udc PO 07/09/24 08:59 QDAY PRN constipation Protocol Plan The patient is a 83-year-old female with significant past medical history of 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 The patient met 4/4 SIRS criteria, with source of infection as pneumonia, troponin elevating to 0.190 and was admitted to telemetry unit for further management of sepsis secondary to pneumonia. #Acute hypoxic respiratory failure 2/2 #Sepsis secondary to pneumonia #Bilateral pleural effusions #VAP Pneumonia #Chronic tracheostomy #Suspected malignancy The pt was brought in to the ED from subacute rehab for fever of 103 degree F, was found to have 4/4 SIRS positive with temperature 103.5, pulse rate 118, RR 24, saturating 90% on FiO2 40% by blow-by. Labs were significant for white count 16.4, troponin 0.190, BNP 816. CXR significant for pneumonia. Last admission pleural fluid had shown findings that were suspicious for malignancy. Family had decided to not pursue further aggressive treatments or workup for cancer. 06/09/2024: CT chest/abd/pel: Significant thyromegaly with multiple nodules. Large bilateral pleural effusions. Pneumonia in the right upper lobe and both bases. Large soft tissue ulcer posterior to the distal sacrum and coccyx with osteomyelitis distal sacral and coccygeal segments. 06/10/2024: Right pleural effusion was drained through PleurX, drined 1000 ml. IR guided thoracocentesis and Pleur-X left side ordered for 06/10/2024. Plan: -Zosyn 3.375 Q6h 06/09-current -Blood cultures and urine cultures pending -O2 as needed through blow-by -Tylenol as needed for fever -Duoneb Q6H as needed for wheezing #Essential hypertension #Atrial fibrillation #NSTEMI likely type II #Hyperlipidemia Troponin elevation most likely due to demand ischemia due to sepsis. Plan: -Holding antihypertensives for now due to normal blood pressure -Amiodarone 200 Mg daily -Troponin I peaked at 0.524, will stop trending. -Atorvastatin 80 Mg daily -Fluid restriction 1500 qday #IDDM type II -ISS -Hypoglycemia protocol #Deep sacral ulcer -Wound care consulted #Chronic constipation -Lactulose 10 g daily as needed #Chronic PEG tube -Continue feeds with Glucerna(carbsteady) 1.2 tasia at 55 ml/hr 22 hr a day -Free water flushes at 25 ml/hr -Fluid restriction 1500 ml/day Health maintenance: Dispo:telemetry DVT prophylaxis: heparin sc Diet: tube feeds, fluid restriction 1500 cc/day CODE STATUS: DNR Patient plan of care was discussed with the attending physician, Dr. Figueroa. Angelina Moreno, PGY-2 Attending Provider Attestation/Addendum I reviewed labs, imaging, EKG, home medications and prior available records. Face to face evaluation was performed by me. I have personally examined the patient and discussed assessment and plan with the IM team. I reviewed the resident note and agree with the plan with exceptions as below. Acute on chronic hypoxic respiratory failure Bilateral pleural effusions Status post tracheostomy Acute febrile illness Healthcare associated pneumonia CHF exacerbation Non-STEMI She is on oxygen via trach collar Continue IV diuresis Started IV Zosyn Trend WBC Follow-up cultures Status post drainage of the right pleural fluid via the Pleurx catheter Consulted IR for pleurocentesis on the left and possible insertion of Pleurx catheter: Recommended CT of the chest follow-up and if there is still fluid they will put a Pleurx catheter on the left Trend troponin: Peaked Discussed with family: Wants SNF with hospice services, preferred at [place] however the facilities there are rejected for that she will likely stay in the area upon discharge
--- NOTE | 2024-06-11 15:40 | PC.LAC ---
notified nel that procedure will be postponed until tomorrow due to imaging from ct chest images and interpretation not completed. will follow up tomorrow.
[2024-06-11] MEDS: CADEXOMER IODINE GEL 40 GM TUBE TOP (20:55)
[2024-06-12] VITALS (25 sets, daily range): BP systolic 101–142; BP diastolic 42–89; PULSE 69–89; RESP 18–24; TEMP 36.2–36.9; O2SAT 90–100; BMI 19.6
[2024-06-12] MEDS: INSULIN LISPRO (AdmeLOG) 1 UNIT/0.01 ML UNIT SC ×3 (00:05→12:48)
[2024-06-12] MEDS: PIPER/TAZO 3.375 GM PREMIX 3.375 GM/50 ML BAG IV ×3 (05:34→21:55)
[2024-06-12 06:02] LABS: Anion Gap 10 (7-16); BUN/Creatinine Ratio 39 Ratio (12-20); Blood Urea Nitrogen 39 mg/dL (9-23); Calcium 8.4 mg/dL (8.3-10.6); Carbon Dioxide 32.4 mMol/L (20.0-31.0); Chloride 95 mMol/L (98-107); Glucose 192 mg/dL (74-106); Osmolality,Calculated 288 (275-295); Phosphorous 3.5 mg/dL (2.4-5.1); Potassium 3.8 mMol/L (3.4-5.1); Sodium 137 mMol/L (136-145); eGFR 56 See Note
[2024-06-12 06:14] LABS: Basophils # (Auto) 0.1 Thou/mm3 (0.0-0.2); Basophils % (Auto) 1 % (0-2.5); Eosinophils # (Auto) 0.2 Thou/mm3 (0.0-0.5); Eosinophils % (Auto) 2 % (0-10); Hematocrit 26.9 % (36.0-46.0); Immature Granulocytes % (Auto) 1 % (0-0); Immature Granulocytes Auto 0.08 Thou/mm3 (0.00-0.00); Lymphocytes # (Auto) 1.4 Thou/mm3 (1.0-4.8); Lymphocytes % (Auto) 11 % (10-50); Mean Corpuscular HGB Conc 31.6 g/dl (31.0-37.0); Mean Corpuscular Hemoglobin 27.2 pg (25.0-35.0); Mean Corpuscular Volume 86 fL (80-100); Monocytes # (Auto) 1.4 Thou/mm3 (0.0-0.8); Monocytes % (Auto) 11 % (0-12); Neutrophils % (Auto) 76 % (37-80); Nucleated Red Blood Cell % 0 /100 WBC (0); Platelet Count 423 Thou/mm3 (140-440); RDW Standard Deviation 47.1 fL (36.4-46.3); Red Blood Count 3.12 Miln/mm3 (4.00-5.20); White Blood Count 13.2 Thou/mm3 (3.6-11.0)
[2024-06-12 06:20] LABS: Hemoglobin 8.5 g/dL (12.0-16.0)
--- NOTE | 2024-06-12 09:00 | XR_ITS ---
Examination: Attempted left hemithorax Pleurx catheter placement Fluoroscopy AP chest single view Exam date and time: June 12, 2024 at 0956 hours INDICATIONS: Shortness of breath recurrent left pleural effusions on chest imaging this month TECHNIQUE AND FINDINGS: Ultrasound utilized for identification of pleural fluid left hemithorax Ultrasound-guided needle placement into the left hemithorax However, no free fluid could be obtained through the needle for safe passage of the wire guide and placement of a Pleurx catheter, estimated blood loss 2 cc IMPRESSION: Unsuccessful attempt at left Pleurx catheter placement
[2024-06-12] MEDS: FUROSEMIDE INJ 10 MG/ML 4ML VIAL 40 MG IVP (09:22)
[2024-06-12] MEDS: AMIODARONE HCL 200 MG TABLET GT (09:25)
[2024-06-12] MEDS: HEPARIN SOD INJ 5000 UNIT/ML VIAL SC ×2 (09:25→21:55)
--- NOTE | 2024-06-12 09:38 | PC.SS ---
Addendum entered by Maricruz Olivas 06/12/24 15:56: Updated rounding note: Left sided Pleur-X failed. Radiology to be consulted. Addendum entered by Maricruz Olivas 06/12/24 11:28: Rounding note: left sided Pleur-X catheter placement, diuresing. Possible discharge if she tolerates. SS received call from RN Elle;inquiring about patient's discharge plan with hospice, code status, and level of wound care needed. SS consulted Dr. Burnham and informed her of RN level of care. Per Dr. Moreno, she will be contacting patient's son. SS informed Dr. Moreno there are no accepting subacute facilities at this time and patient's son is aware. Addendum entered by Maricruz Olivas 06/12/24 09:42: SS contacted patient's son Rashel Her [phone] to inform him there are no accepting [facility] bases on [facility] referrals. SS confirmed discharge plan with patient's son Rashel due to patient possibly discharging today. Patient's son Kristyi requested patient to return to [facility] if placement in [facility] is not acquired. Original Note: SS contacted patient's son Rashel Her to complete initial assessment. Patient's son confirmed demographic information. Patient's son Rashel explained patient is a resident of [facility]. Xai further explained patient is max assist with ADL completion and ambulation; she is assisted by staff. Patient's son Xai stated patient is non-ambulatory. Patient's son Kristyi [phone] confirmed he is the patient's Medical Surrogate Decisionmaker. Xai informed SS he is interested in having patient placed in [facility]. SS explained referrals have already been submitted and there are currently no accepting subacute facilities. Patient's son Kristyi in agreement to have patient discharge to [facility] if patient is not accepted to any [facility] facilities. Discharge plan: Subacute in [place] preferred. Second choice, return to [facility]. Alt. Decisionmaker: Gregory Oh [phone]
--- NOTE | 2024-06-12 10:15 | XR_ITS ---
Examination: Ultrasound-guided needle placement left hemithorax Ultrasound left chest Date and Time: June 12, 2024 1034 hours INDICATIONS: Recurrent large left pleural effusions, shortness of breath. Technique: Ultrasound utilized for needle placement in the left hemithorax Ultrasound images stored and recorded Utilizing ultrasonographic guidance 18-gauge needle placed in the left hemithorax, however no free fluid could be obtained IMPRESSION: Unsuccessful ultrasound-guided needle placement left hemithorax
[2024-06-12] MEDS: fentaNYL CIT INJ 50 mCg/ML AMP 2ML 25 MCG IVP (11:03)
[2024-06-12] MEDS: LIDOCAINE INJ PF 1% 30 ML VIAL 7 ML INFL (11:04)
--- NOTE | 2024-06-12 11:27 | XR_ITS ---
Examination: Ultrasound left hemithorax TECHNIQUE: Grayscale sonographic images left hemithorax Exam date and time: June 12, 2024 1139 hours INDICATIONS: Localization pleural fluid for Pleurx catheter placement FINDINGS: Moderate left pleural fluid IMPRESSION: Moderate left pleural fluid
--- NOTE | 2024-06-12 12:27 | PC.NURSE ---
1209 patient s/p attempted left pleur x drain insertion, dressing dry with no active bleeding, report given to nel RN, patient transferred back to room 362 with tele box on hospital bed. pt has rt pleur x drain, peg tube and peace catheter.
--- NOTE | 2024-06-12 14:59 | PD.ADDPROG ---
Addendum Progress Note Addendum Date of report being addended: 06/12/24 Narrative: I reviewed labs, imaging, EKG, home medications and prior available records. Face to face evaluation was performed by me. I have personally examined the patient and discussed assessment and plan with the IM team. I reviewed the resident note and agree with the plan with exceptions as below. Acute on chronic hypoxic respiratory failure Bilateral pleural effusions, likely malignant in the setting of pulmonary malignancy Status post tracheostomy Acute febrile illness Healthcare associated pneumonia CHF exacerbation Non-STEMI She is on oxygen via trach collar Continue IV diuresis Started IV Zosyn Trend WBC: Downtrending Follow-up cultures: Negative to date Status post drainage of the right pleural fluid via the Pleurx catheter Consulted IR for pleurocentesis on the left and possible insertion of Pleurx catheter: Unsuccessful. Tried to touch base with radiology however could not reach them Trend troponin: Peaked Discussed with family: Wants SNF with hospice services, preferred at [place] however [place] facilities declined for which she will go back to the same facility. Discussed with long term care social worker who recommended notifying the facility as early as possible in the morning in case we decided to discharge her tomorrow 06/13 Possible discharge tomorrow if stable respiratory hess. Plan to go back to the same facility she came from
[2024-06-12] MEDS: CADEXOMER IODINE GEL 40 GM TUBE TOP (15:40)
--- NOTE | 2024-06-12 17:00 | ESPR_ITS ---
<Statement entered by Angelina Moreno MD - 06/13/24 08:27> Patient was seen and examined by me personally. I have directly supervised and reviewed documentation by the team resident and agree with its findings with any exceptions or additional findings as below. Plan of care was discussed with the attending, Dr. Figueroa. Patient seen this morning, Pleur-X catheter placement on the left side was unsuccessful. Attempted to reach out to radiology. Will most likely plan for subacute discharge tomorrow. Angelina Moreno, PGY-2 Documentation for date of: 06/12/24 Subjective Subjective Interval history: No acute overnight events. IR guided thoracocentesis and pleurx placement was unsuccessful. Was not able to reach radiology for comments. [facility] for placements. Patient is going to be discharged to the same facility, possibly tomorrow. Exam Vital Signs Temp Pulse Resp BP Pulse Ox O2 Del Method O2 Flow Rate 97.4 F 88 18 115/88 H 96 Trach Collar 10 06/12/24 16:00 06/12/24 16:00 06/12/24 16:00 06/12/24 16:00 06/12/24 16:00 06/12/24 16:00 06/12/24 16:00 FiO2 35 06/12/24 11:50 Narrative Exam Physical Exam General: Awake and in no acute distress. Nonverbal (tracheostomy). HEENT: Normocephalic, atraumatic, mucous membranes moist. Heart: Regular rate and rhythm, no murmurs. Lungs: Diffuse rhonchi. Respiratory sounds are decreased in the lower chest area. Pleurx cath site unremarkable. Abdomen: Soft, nondistended, nontender, positive bowel sounds. ?No guarding or rebound tenderness. Neurologic: Alert and oriented x0, no gross neurological deficit, does not follow commands. Extremities: No edema. Skin: No rash or ecchymoses. Objective Labs 06/12/24 03:53 06/12/24 04:10 Labs: Laboratory Results - last 24 hr 06/12/24 06/12/24 03:53 04:10 WBC 13.2 H RBC 3.12 L Hgb 8.5 L Hct 26.9 L MCV 86 MCH 27.2 MCHC 31.6 RDW Std Deviation 47.1 H Plt Count 423 Neut % (Auto) 76 Lymph % (Auto) 11 [place] % (Auto) 11 Eos % (Auto) 2 Baso % (Auto) 1 Neut # (Auto) 10.0 H Lymph # (Auto) 1.4 [place] # (Auto) 1.4 H Eos # (Auto) 0.2 Baso # (Auto) 0.1 Immature Gran # (Auto) 0.08 H Absolute Nucleated RBC 0.00 Immature Gran % 1 H Nucleated RBC % 0 Sodium 137 Potassium 3.8 Chloride 95 L Carbon Dioxide 32.4 H Anion Gap 10 BUN 39 H Creatinine 1.0 Estim Creat Clear Calc 30.0 L eGFR 56 L BUN/Creatinine Ratio 39 H Glucose 192 H Calculated Osmolality 288 Calcium 8.4 Phosphorus 3.5 Quality Measures Quality Measures sepsis Current suspected stage: sepsis Possible source: pulmonary, GI tract/intra-abdominal, genitourinary and skin/soft tissue Blood cultures ordered: completed in ED Antibiotic ordered: Yes Advance care planning discussed with:: other Assessment & Plan Assessment Current Active Medications: Generic Name Dose Route Start Last Admin Trade Name Freq PRN Reason Stop Dose Admin Acetaminophen 650 mg 06/09/24 03:52 Acetaminophen 325 Mg Tablet PO 07/09/24 03:51 Q6H PRN Fever >101.5 Acetaminophen 650 mg 06/09/24 03:52 Acetaminophen Supp 650 Mg Supp MD 07/09/24 03:51 Q6HR PRN Fever > 100.5 Protocol Albuterol/Ipratropium 3 ml 06/09/24 03:46 06/09/24 07:22 Albuterol/Ipratropium (Duoneb) Rt Viviana 3 Ml Nebu INH 07/09/24 06:59 3 ml Q6HRRT PRN Administration Wheeze Amiodarone HCl 200 mg 06/09/24 09:00 06/12/24 09:25 Amiodarone Hcl 200 Mg Tablet GT 07/09/24 08:59 200 mg QDAY AMARJIT Administration Cadexomer Iodine 0 gm 06/11/24 21:00 06/12/24 15:40 Cadexomer Iodine Gel 40 Gm Tube TOP 06/18/24 20:59 1 applic HS AMARJIT Administration Dextrose 25 ml 06/09/24 15:22 Dextrose 50%-Water Inj 50 Ml Syringe IV 07/09/24 15:21 Q15MIN PRN BG 50-70 responsive npo pt Dextrose 50 ml 06/09/24 15:22 Dextrose 50%-Water Inj 50 Ml Syringe IV 07/09/24 15:21 Q15MIN PRN BG <50 OR BG <70 & pt unresponsive Furosemide 40 mg 06/12/24 09:00 06/12/24 09:22 Furosemide Inj 10 Mg/Ml 4ml Vial IVP 07/12/24 08:59 40 mg QDAY AMARJIT Administration Glucagon 1 mg 06/09/24 15:22 Glucagon Inj 1 Mg Vial IM Q15MIN PRN BG <70, and no IV access Heparin Sodium (Porcine) 5,000 unit 06/09/24 09:00 06/12/24 09:25 Heparin Sod Inj 5000 Unit/Ml Vial SC 06/23/24 08:59 5,000 unit Q12HR AMARJIT Administration Piperacillin/Tazobactam/Dextrose 3.375 gm in 50 mls @ 12.5 mls/hr 06/09/24 15:30 06/12/24 14:07 Zosyn IV 06/16/24 05:59 12.5 mls/hr Q8HR AMARJIT Administration Insulin Human Lispro 0 unit 06/09/24 18:00 06/12/24 12:48 Insulin Lispro (Admelog) 1 Unit/0.01 Ml Unit SC 07/09/24 17:59 1 unit Q6HR AMARJIT Administration Protocol Lactulose 10 gm 06/09/24 04:43 Lactulose Syrup 20 Gm/30 Ml Udc PO 07/09/24 08:59 QDAY PRN constipation Protocol Plan The patient is a 83-year-old female with significant past medical history of 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 The patient met 4/4 SIRS criteria, with source of infection as pneumonia, troponin elevating to 0.190 and was admitted to telemetry unit for further management of sepsis secondary to pneumonia. #Acute hypoxic respiratory failure 2/2 #Sepsis secondary to pneumonia #Bilateral pleural effusions #VAP Pneumonia #Chronic tracheostomy #Suspected malignancy The pt was brought in to the ED from subacute rehab for fever of 103 degree F, was found to have 4/4 SIRS positive with temperature 103.5, pulse rate 118, RR 24, saturating 90% on FiO2 40% by blow-by. Labs were significant for white count 16.4, troponin 0.190, BNP 816. CXR significant for pneumonia. Last admission pleural fluid had shown findings that were suspicious for malignancy. Family had decided to not pursue further aggressive treatments or workup for cancer. 06/09/2024: CT chest/abd/pel: Significant thyromegaly with multiple nodules. Large bilateral pleural effusions. Pneumonia in the right upper lobe and both bases. Large soft tissue ulcer posterior to the distal sacrum and coccyx with osteomyelitis distal sacral and coccygeal segments. 06/10/2024: Right pleural effusion was drained through PleurX, drined 1000 ml. IR guided thoracocentesis and Pleur-X left side ordered for 06/10/2024. 06/12/24 IR guided thoracocentesis and pleurx placement was unsuccessful. Was not able to reach radiology for comments. Plan: -Zosyn 3.375 Q6h 06/09-current -Blood cultures and urine cultures negative -O2 as needed through blow-by -Tylenol as needed for fever -Duoneb Q6H as needed for wheezing #Essential hypertension #Atrial fibrillation #NSTEMI likely type II #Hyperlipidemia Troponin elevation most likely due to demand ischemia due to sepsis. Plan: -Holding antihypertensives for now due to normal blood pressure -Amiodarone 200 Mg daily -Troponin I peaked at 0.524, will stop trending. -Atorvastatin 80 Mg daily -Fluid restriction 1500 qday #IDDM type II -ISS -Hypoglycemia protocol #Deep sacral ulcer -Wound care consulted #Chronic constipation -Lactulose 10 g daily as needed #Chronic PEG tube -Continue feeds with Glucerna(carbsteady) 1.2 tasia at 55 ml/hr 22 hr a day -Free water flushes at 25 ml/hr -Fluid restriction 1500 ml/day Health maintenance: Dispo:telemetry DVT prophylaxis: heparin sc Diet: tube feeds, fluid restriction 1500 cc/day CODE STATUS: DNR Plan of care discussed with attending Dr. Figueroa, PGY-[address] Moreno and PGY-[address] Farah. Amarilys Valdez MD, PGY 1. Attending Provider Attestation/Addendum I reviewed labs, imaging, EKG, home medications and prior available records. Face to face evaluation was performed by me. I have personally examined the patient and discussed assessment and plan with the IM team. I reviewed the resident note and agree with the plan with exceptions as below. Please refer to my addendum note for the same date
[2024-06-13] VITALS (10 sets, daily range): BP systolic 117–144; BP diastolic 60–72; PULSE 70–86; RESP 17–20; TEMP 36.1–36.4; O2SAT 96–100; BMI 19.6
[2024-06-13 06:04] LABS: Basophils # (Auto) 0.1 Thou/mm3 (0.0-0.2); Basophils % (Auto) 1 % (0-2.5); Eosinophils # (Auto) 0.2 Thou/mm3 (0.0-0.5); Eosinophils % (Auto) 2 % (0-10); Hematocrit 27.3 % (36.0-46.0); Immature Granulocytes % (Auto) 1 % (0-0); Immature Granulocytes Auto 0.06 Thou/mm3 (0.00-0.00); Lymphocytes # (Auto) 1.4 Thou/mm3 (1.0-4.8); Lymphocytes % (Auto) 13 % (10-50); Mean Corpuscular HGB Conc 31.9 g/dl (31.0-37.0); Mean Corpuscular Hemoglobin 27.6 pg (25.0-35.0); Mean Corpuscular Volume 87 fL (80-100); Monocytes # (Auto) 1.2 Thou/mm3 (0.0-0.8); Monocytes % (Auto) 11 % (0-12); Neutrophils # (Auto) 8.1 Thou/mm3 (1.8-7.7); Neutrophils % (Auto) 74 % (37-80); Nucleated Red Blood Cell % 0 /100 WBC (0); Platelet Count 430 Thou/mm3 (140-440); RDW Standard Deviation 46.9 fL (36.4-46.3); Red Blood Count 3.15 Miln/mm3 (4.00-5.20)
[2024-06-13] MEDS: INSULIN LISPRO (AdmeLOG) 1 UNIT/0.01 ML UNIT SC ×3 (06:08→17:58)
[2024-06-13] MEDS: PIPER/TAZO 3.375 GM PREMIX 3.375 GM/50 ML BAG IV ×3 (06:08→21:15)
[2024-06-13 06:12] LABS: Hemoglobin 8.7 g/dL (12.0-16.0)
[2024-06-13 06:44] LABS: Anion Gap 11 (7-16); BUN/Creatinine Ratio 37 Ratio (12-20); Blood Urea Nitrogen 37 mg/dL (9-23); Calcium 8.6 mg/dL (8.3-10.6); Carbon Dioxide 31.3 mMol/L (20.0-31.0); Chloride 95 mMol/L (98-107); Estimated Creatinine Clearance 31.8 mL/min (>60); Glucose 204 mg/dL (74-106); Osmolality,Calculated 288 (275-295); Potassium 3.9 mMol/L (3.4-5.1); Sodium 137 mMol/L (136-145); eGFR 56 See Note
[2024-06-13] MEDS: AMIODARONE HCL 200 MG TABLET GT (09:10)
[2024-06-13] MEDS: HEPARIN SOD INJ 5000 UNIT/ML VIAL SC ×2 (09:10→21:15)
[2024-06-13] MEDS: FUROSEMIDE INJ 10 MG/ML 4ML VIAL 40 MG IVP (09:10)
--- NOTE | 2024-06-13 10:21 | PC.SS ---
SS update: patient not ready for d/c today as pending pleurx cath per Dr. Moreno, heavenly Plunkett at [facility] Sub-Acute.
--- NOTE | 2024-06-13 15:50 | ESPR_ITS ---
<Statement entered by Angelina Moreno MD - 06/14/24 10:51> Patient was seen and examined by me personally. I have directly supervised and reviewed documentation by the team resident and agree with its findings with any exceptions or additional findings as below. Plan of care was discussed with the attending, Dr. Minaya. Patient was unable to have Pleur-X catheter placed today due to full IR schedule. Will be rescheduled for tomorrow. Meanwhile patient's son and decision-maker, Rashel Her was contacted regarding patient's hospital course, plan of care, and prognosis. He is aware of the poor prognosis, and is still interested in hospice for the patient. Informed Kristyi that there are unfortunately no accepting facilities in [place] for subacute to subacute transfer. Due to patient's poor prognosis comfort measures were again presented as an option here at [facility] subacute. He will deliberate with family members and is open to telephone meeting tomorrow. Angelina Moreno, PGY-2 Documentation for date of: 06/13/24 Subjective Subjective Interval history: Patient was seen and examined by the bedside. No acute overnight events. Patient will have another attempt to place Pleurx catheter. Talked to the patient's decision-maker, Her Xai, gave him an update regarding the plan of care and the condition, explained that at this point accumulation of the fluid in the chest cavity will continue to happen and the patient would require repeat draining. Considering overall condition of the patient and overall poor prognosis he was given information regarding the comfort care measures that can help alleviate the pain and suffering for the patient. He said that he will speak to the family and requested to talk again after the weekend. At this point of time he wants to proceed with current plan of care and confirmed that the patient is DNR. Will have another discussion tomorrow regarding the plan of care. Exam Vital Signs Temp Pulse Resp BP Pulse Ox O2 Del Method O2 Flow Rate 97.6 F 85 17 132/70 H 98 Trach Collar 10 06/13/24 12:00 06/13/24 12:00 06/13/24 12:00 06/13/24 12:00 06/13/24 12:00 06/13/24 08:00 06/13/24 08:00 FiO2 35 06/13/24 01:47 Narrative Exam Physical Exam General: Awake and in no acute distress. Nonverbal (tracheostomy). HEENT: Normocephalic, atraumatic, mucous membranes moist. Heart: Regular rate and rhythm, no murmurs. Lungs: Diffuse rhonchi. Respiratory sounds are decreased in the lower chest area. Pleurx cath site unremarkable. Abdomen: Soft, nondistended, nontender, positive bowel sounds. ?No guarding or rebound tenderness. Neurologic: Alert and oriented x0, no gross neurological deficit, does not follow commands. Extremities: No edema. Skin: No rash or ecchymoses. Objective Labs 06/14/24 04:15 06/14/24 04:15 Labs: Laboratory Results - last 24 hr 06/13/24 04:31 WBC 11.0 RBC 3.15 L Hgb 8.7 L Hct 27.3 L MCV 87 MCH 27.6 MCHC 31.9 RDW Std Deviation 46.9 H Plt Count 430 Neut % (Auto) 74 Lymph % (Auto) 13 [place] % (Auto) 11 Eos % (Auto) 2 Baso % (Auto) 1 Neut # (Auto) 8.1 H Lymph # (Auto) 1.4 [place] # (Auto) 1.2 H Eos # (Auto) 0.2 Baso # (Auto) 0.1 Immature Gran # (Auto) 0.06 H Absolute Nucleated RBC 0.00 Immature Gran % 1 H Nucleated RBC % 0 Sodium 137 Potassium 3.9 Chloride 95 L Carbon Dioxide 31.3 H Anion Gap 11 BUN 37 H Creatinine 1.0 Estim Creat Clear Calc 31.8 L eGFR 56 L BUN/Creatinine Ratio 37 H Glucose 204 H Calculated Osmolality 288 Calcium 8.6 Quality Measures Quality Measures sepsis Current suspected stage: sepsis (resolved) Possible source: pulmonary, GI tract/intra-abdominal, genitourinary and skin/soft tissue Blood cultures ordered: completed in ED Antibiotic ordered: Yes Advance care planning discussed with:: child Assessment & Plan Assessment Current Active Medications: Generic Name Dose Route Start Last Admin Trade Name Freq PRN Reason Stop Dose Admin Acetaminophen 650 mg 06/09/24 03:52 Acetaminophen 325 Mg Tablet PO 07/09/24 03:51 Q6H PRN Fever >101.5 Acetaminophen 650 mg 06/09/24 03:52 Acetaminophen Supp 650 Mg Supp VT 07/09/24 03:51 Q6HR PRN Fever > 100.5 Protocol Albuterol/Ipratropium 3 ml 06/09/24 03:46 06/09/24 07:22 Albuterol/Ipratropium (Duoneb) Rt Viviana 3 Ml Nebu INH 07/09/24 06:59 3 ml Q6HRRT PRN Administration Wheeze Amiodarone HCl 200 mg 06/09/24 09:00 06/13/24 09:10 Amiodarone Hcl 200 Mg Tablet GT 07/09/24 08:59 200 mg QDAY AMARJIT Administration Cadexomer Iodine 0 gm 06/11/24 21:00 06/12/24 15:40 Cadexomer Iodine Gel 40 Gm Tube TOP 06/18/24 20:59 1 applic HS AMARJIT Administration Dextrose 25 ml 06/09/24 15:22 Dextrose 50%-Water Inj 50 Ml Syringe IV 07/09/24 15:21 Q15MIN PRN BG 50-70 responsive npo pt Dextrose 50 ml 06/09/24 15:22 Dextrose 50%-Water Inj 50 Ml Syringe IV 07/09/24 15:21 Q15MIN PRN BG <50 OR BG <70 & pt unresponsive Furosemide 40 mg 06/12/24 09:00 06/13/24 09:10 Furosemide Inj 10 Mg/Ml 4ml Vial IVP 07/12/24 08:59 40 mg QDAY AMARJIT Administration Glucagon 1 mg 06/09/24 15:22 Glucagon Inj 1 Mg Vial IM Q15MIN PRN BG <70, and no IV access Heparin Sodium (Porcine) 5,000 unit 06/09/24 09:00 06/13/24 09:10 Heparin Sod Inj 5000 Unit/Ml Vial SC 06/23/24 08:59 5,000 unit Q12HR AMARJIT Administration Piperacillin/Tazobactam/Dextrose 3.375 gm in 50 mls @ 12.5 mls/hr 06/09/24 15:30 06/13/24 13:16 Zosyn IV 06/16/24 05:59 12.5 mls/hr Q8HR AMARJIT Administration Insulin Human Lispro 0 unit 06/09/24 18:00 06/13/24 11:37 Insulin Lispro (Admelog) 1 Unit/0.01 Ml Unit SC 07/09/24 17:59 2 unit Q6HR AMARJIT Administration Protocol Lactulose 10 gm 06/09/24 04:43 Lactulose Syrup 20 Gm/30 Ml Udc PO 07/09/24 08:59 QDAY PRN constipation Protocol Plan The patient is a 83-year-old female with significant past medical history of 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 The patient met 4/4 SIRS criteria, with source of infection as pneumonia, troponin elevating to 0.190 and was admitted to telemetry unit for further management of sepsis secondary to pneumonia. #Acute hypoxic respiratory failure 2/2 #Sepsis secondary to pneumonia #Bilateral pleural effusions #VAP Pneumonia #Chronic tracheostomy #Suspected malignancy The pt was brought in to the ED from subacute rehab for fever of 103 degree F, was found to have 4/4 SIRS positive with temperature 103.5, pulse rate 118, RR 24, saturating 90% on FiO2 40% by blow-by. Labs were significant for white count 16.4, troponin 0.190, BNP 816. CXR significant for pneumonia. Last admission pleural fluid had shown findings that were suspicious for malignancy. Family had decided to not pursue further aggressive treatments or workup for cancer. 06/09/2024: CT chest/abd/pel: Significant thyromegaly with multiple nodules. Large bilateral pleural effusions. Pneumonia in the right upper lobe and both bases. Large soft tissue ulcer posterior to the distal sacrum and coccyx with osteomyelitis distal sacral and coccygeal segments. 06/10/2024: Right pleural effusion was drained through PleurX, drained 1000 ml. IR guided thoracocentesis and Pleur-X left side ordered for 06/10/2024. 06/12/24 IR guided thoracocentesis and pleurx placement was unsuccessful. Was not able to reach radiology for comments. 06/13/2024: Repeat IR guided thoracocentesis and pleurx placement planned. Plan: -Zosyn 3.375 Q6h 06/09-current -Blood cultures and urine cultures negative -O2 as needed through blow-by -Tylenol as needed for fever -Duoneb Q6H as needed for wheezing #Essential hypertension #Atrial fibrillation #NSTEMI likely type II #Hyperlipidemia Troponin elevation most likely due to demand ischemia due to sepsis. Plan: -Holding antihypertensives for now due to normal blood pressure -Amiodarone 200 Mg daily -Troponin I peaked at 0.524, will stop trending. -Atorvastatin 80 Mg daily -Fluid restriction 1500 qday #IDDM type II -ISS -Hypoglycemia protocol #Deep sacral ulcer -Wound care consulted #Chronic constipation -Lactulose 10 g daily as needed #Chronic PEG tube -Continue feeds with Glucerna(carbsteady) 1.2 tasia at 50 ml/hr 22 hr a day -Free water flushes at 25 ml/hr -Fluid restriction 1500 ml/day Health maintenance: Dispo:telemetry DVT prophylaxis: heparin sc Diet: tube feeds, fluid restriction 1500 cc/day CODE STATUS: DNR Plan of care discussed with attending Dr. Minaya, PGY-[address] Moreno and PGY-[address] Farah. Amarilys Valdez MD, PGY 1. Attending Provider Attestation/Addendum Em, Marlena Minaya DO, attest that I was physically present for the tapia portions of the service and evaluated the patient with the resident and I reviewed and discussed the case with the resident and agree with the resident's findings and plans of care as documented above Patient seen and evaltued this AM. She remains at baseline mental status. She continues to have diminished breath sounds in the left lung alfaro. Son was called and would like to continue with current treatment, as well as Pleurex catheter. Patient remains on Blowby, no respiratory distress. She is able to track with eyes and nod her head. Plan for Pleurex catheter placement in AM and will obtain PT/INR in AM.
[2024-06-13] MEDS: CADEXOMER IODINE GEL 40 GM TUBE TOP (21:16)
[2024-06-14] VITALS (11 sets, daily range): BP systolic 126–149; BP diastolic 61–74; PULSE 74–87; RESP 17–24; TEMP 36.1–37; O2SAT 97–98
[2024-06-14] MEDS: INSULIN LISPRO (AdmeLOG) 1 UNIT/0.01 ML UNIT SC ×5 (00:28→23:05)
[2024-06-14] MEDS: PIPER/TAZO 3.375 GM PREMIX 3.375 GM/50 ML BAG IV ×3 (05:13→22:13)
[2024-06-14 05:59] LABS: Basophils % (Auto) 0 % (0-2.5); Eosinophils # (Auto) 0.2 Thou/mm3 (0.0-0.5); Eosinophils % (Auto) 2 % (0-10); Hematocrit 25.8 % (36.0-46.0); Immature Granulocytes % (Auto) 1 % (0-0); Immature Granulocytes Auto 0.08 Thou/mm3 (0.00-0.00); Lymphocytes # (Auto) 1.2 Thou/mm3 (1.0-4.8); Lymphocytes % (Auto) 11 % (10-50); Mean Corpuscular HGB Conc 31.4 g/dl (31.0-37.0); Mean Corpuscular Hemoglobin 27.2 pg (25.0-35.0); Mean Corpuscular Volume 87 fL (80-100); Monocytes % (Auto) 8 % (0-12); Neutrophils # (Auto) 9.1 Thou/mm3 (1.8-7.7); Neutrophils % (Auto) 78 % (37-80); Nucleated Red Blood Cell % 0 /100 WBC (0); Platelet Count 413 Thou/mm3 (140-440); RDW Standard Deviation 46.2 fL (36.4-46.3); Red Blood Count 2.98 Miln/mm3 (4.00-5.20); White Blood Count 11.7 Thou/mm3 (3.6-11.0)
[2024-06-14 06:07] LABS: Hemoglobin 8.1 g/dL (12.0-16.0)
[2024-06-14 06:26] LABS: Partial Thromboplastin Time 33.2 Seconds (22.0-36.0)
[2024-06-14 06:32] LABS: Anion Gap 9 (7-16); BUN/Creatinine Ratio 39 Ratio (12-20); Blood Urea Nitrogen 35 mg/dL (9-23); Calcium 8.4 mg/dL (8.3-10.6); Carbon Dioxide 34.3 mMol/L (20.0-31.0); Chloride 95 mMol/L (98-107); Creatinine (Component) 0.9 mg/dL (0.6-1.3); Estimated Creatinine Clearance 35.4 mL/min (>60); Glucose 200 mg/dL (74-106); Osmolality,Calculated 289 (275-295); Potassium 3.7 mMol/L (3.4-5.1); Sodium 138 mMol/L (136-145); eGFR > 60 See Note
[2024-06-14] MEDS: AMIODARONE HCL 200 MG TABLET GT (08:00)
[2024-06-14] MEDS: FUROSEMIDE INJ 10 MG/ML 4ML VIAL 40 MG IVP (08:01)
[2024-06-14] MEDS: HEPARIN SOD INJ 5000 UNIT/ML VIAL SC (08:07)
--- NOTE | 2024-06-14 14:43 | PC.NURSE ---
Per Dr. Dowd pleurx drain for tomorrow due to Heparin Injection given today. Nurse aware to hold heparin injection.
--- NOTE | 2024-06-14 15:33 | ESPR_ITS ---
<Statement entered by Angelina Moreno MD - 06/15/24 07:28> Patient was seen and examined by me personally. I have directly supervised and reviewed documentation by the team resident and agree with its findings with any exceptions or additional findings as below. Plan of care was discussed with the attending, Dr. Minaya. Patient tracking people with eyes per her baseline, however unable to verbalize or meaningfully react. Respiratory status has been stable and the patient has no new fevers. Currently awaiting left-side Pleur-X catheter placement. Contacted IR department who stated that due to add-ons today and due to the fact that the first attempt there did not seem to be enough fluid they did not prioritize the procedure. Informed IR team that Dr. Dowd had advised to attempt L Pleur-X placement again as the first site that was marked was likely not ideal for placement. Order was placed again for 06/15 morning placement. However, if patient is unable to get the procedure, will proceed with discharge back to [facility] subacute, and should it become needed the patient may be scheduled for a L catheter placement from there. Pleur-X evacuation instructions for the R-sided catheter will be included upon discharge. Angelina Moreno, PGY-2 Documentation for date of: 06/14/24 Subjective Subjective Interval history: Patient was seen and examined by the bedside. No acute overnight events. IR guided thoracocentesis with pleurx catheter placement is pending. Exam Vital Signs Temp Pulse Resp BP Pulse Ox O2 Del Method O2 Flow Rate 97.6 F 81 21 H 134/61 H 97 Trach Collar 8 06/14/24 12:00 06/14/24 12:06/14/24 12:06/14/24 12:00 06/14/24 12:06/14/24 12:06/14/24 12:00 FiO2 30 06/14/24 12:00 Narrative Exam Physical Exam General: Awake and in no acute distress. Nonverbal (tracheostomy). HEENT: Normocephalic, atraumatic, mucous membranes moist. Heart: Regular rate and rhythm, no murmurs. Lungs: Diffuse rhonchi. Respiratory sounds are decreased in the lower chest area, more on the left. Pleurx cath site unremarkable. Abdomen: Soft, nondistended, nontender, positive bowel sounds. ?No guarding or rebound tenderness. Neurologic: Alert and oriented x0, no gross neurological deficit, does not follow commands. Extremities: No edema. Skin: No rash or ecchymoses. Objective Labs 06/15/24 05:29 06/15/24 05:29 Labs: Laboratory Results - last 24 hr 06/14/24 04:15 WBC 11.7 H RBC 2.98 L Hgb 8.1 L Hct 25.8 L MCV 87 MCH 27.2 MCHC 31.4 RDW Std Deviation 46.2 Plt Count 413 Neut % (Auto) 78 Lymph % (Auto) 11 [place] % (Auto) 8 Eos % (Auto) 2 Baso % (Auto) 0 Neut # (Auto) 9.1 H Lymph # (Auto) 1.2 [place] # (Auto) 1.0 H Eos # (Auto) 0.2 Baso # (Auto) 0.0 Immature Gran # (Auto) 0.08 H Absolute Nucleated RBC 0.00 Immature Gran % 1 H Nucleated RBC % 0 PT 11.0 INR 1.0 APTT 33.2 Sodium 138 Potassium 3.7 Chloride 95 L Carbon Dioxide 34.3 H Anion Gap 9 BUN 35 H Creatinine 0.9 Estim Creat Clear Calc 35.4 L eGFR > 60 BUN/Creatinine Ratio 39 H Glucose 200 H Calculated Osmolality 289 Calcium 8.4 Quality Measures Quality Measures sepsis Current suspected stage: sepsis Possible source: pulmonary, GI tract/intra-abdominal, genitourinary and skin/soft tissue Blood cultures ordered: completed in ED Antibiotic ordered: Yes Advance care planning discussed with:: other Assessment & Plan Assessment Current Active Medications: Generic Name Dose Route Start Last Admin Trade Name Freq PRN Reason Stop Dose Admin Acetaminophen 650 mg 06/09/24 03:52 Acetaminophen Supp 650 Mg Supp WV 07/09/24 03:51 Q6HR PRN Fever > 100.5 Protocol Acetaminophen 650 mg 06/13/24 16:33 Acetaminophen 325 Mg Tablet PO 07/13/24 16:32 Q6H PRN Fever >100.5 Albuterol/Ipratropium 3 ml 06/09/24 03:46 06/09/24 07:22 Albuterol/Ipratropium (Duoneb) Rt Viviana 3 Ml Nebu INH 07/09/24 06:59 3 ml Q6HRRT PRN Administration Wheeze Amiodarone HCl 200 mg 06/09/24 09:00 06/14/24 08:00 Amiodarone Hcl 200 Mg Tablet GT 07/09/24 08:59 200 mg QDAY AMARJIT Administration Cadexomer Iodine 0 gm 06/11/24 21:00 06/13/24 21:16 Cadexomer Iodine Gel 40 Gm Tube TOP 06/18/24 20:59 1 applic HS AMARJIT Administration Dextrose 25 ml 06/09/24 15:22 Dextrose 50%-Water Inj 50 Ml Syringe IV 07/09/24 15:21 Q15MIN PRN BG 50-70 responsive npo pt Dextrose 50 ml 06/09/24 15:22 Dextrose 50%-Water Inj 50 Ml Syringe IV 07/09/24 15:21 Q15MIN PRN BG <50 OR BG <70 & pt unresponsive Glucagon 1 mg 06/09/24 15:22 Glucagon Inj 1 Mg Vial IM Q15MIN PRN BG <70, and no IV access Heparin Sodium (Porcine) 5,000 unit 06/09/24 09:00 06/14/24 08:07 Heparin Sod Inj 5000 Unit/Ml Vial SC 06/23/24 08:59 5,000 unit Q12HR AMARJIT Administration Piperacillin/Tazobactam/Dextrose 3.375 gm in 50 mls @ 12.5 mls/hr 06/09/24 15:30 06/14/24 13:06 Zosyn IV 06/16/24 05:59 12.5 mls/hr Q8HR AMARJIT Administration Insulin Human Lispro 0 unit 06/09/24 18:00 06/14/24 11:55 Insulin Lispro (Admelog) 1 Unit/0.01 Ml Unit SC 07/09/24 17:59 2 unit Q6HR AMARJIT Administration Protocol Lactulose 10 gm 06/09/24 04:43 Lactulose Syrup 20 Gm/30 Ml Udc PO 07/09/24 08:59 QDAY PRN constipation Protocol Plan The patient is a 83-year-old female with significant past medical history of 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 The patient met 4/4 SIRS criteria, with source of infection as pneumonia, troponin elevating to 0.190 and was admitted to telemetry unit for further management of sepsis secondary to pneumonia. #Acute hypoxic respiratory failure 2/2 #Sepsis secondary to pneumonia #Bilateral pleural effusions #VAP Pneumonia #Chronic tracheostomy #Suspected malignancy The pt was brought in to the ED from subacute rehab for fever of 103 degree F, was found to have 4/4 SIRS positive with temperature 103.5, pulse rate 118, RR 24, saturating 90% on FiO2 40% by blow-by. Labs were significant for white count 16.4, troponin 0.190, BNP 816. CXR significant for pneumonia. Last admission pleural fluid had shown findings that were suspicious for malignancy. Family had decided to not pursue further aggressive treatments or workup for cancer. 06/09/2024: CT chest/abd/pel: Significant thyromegaly with multiple nodules. Large bilateral pleural effusions. Pneumonia in the right upper lobe and both bases. Large soft tissue ulcer posterior to the distal sacrum and coccyx with osteomyelitis distal sacral and coccygeal segments. 06/10/2024: Right pleural effusion was drained through PleurX, drained 1000 ml. IR guided thoracocentesis and Pleur-X left side ordered for 06/10/2024. 06/12/24 IR guided thoracocentesis and pleurx placement was unsuccessful. Was not able to reach radiology for comments. 06/13/2024: Repeat IR guided thoracocentesis and pleurx placement planned, pending. 06/14/2024:Repeat IR guided thoracocentesis and pleurx placement planned, pending. Plan: -Zosyn 3.375 Q6h 06/09-current -Blood cultures and urine cultures negative -O2 as needed through blow-by -Tylenol as needed for fever -Duoneb Q6H as needed for wheezing #Essential hypertension #Atrial fibrillation #NSTEMI likely type II #Hyperlipidemia Troponin elevation most likely due to demand ischemia due to sepsis. Plan: -Holding antihypertensives for now due to normal blood pressure -Amiodarone 200 Mg daily -Troponin I peaked at 0.524, will stop trending. -Atorvastatin 80 Mg daily -Fluid restriction 1500 qday #IDDM type II -ISS -Hypoglycemia protocol #Deep sacral ulcer -Wound care consulted #Chronic constipation -Lactulose 10 g daily as needed #Chronic PEG tube -Continue feeds with Glucerna(carbsteady) 1.2 tasia at 50 ml/hr 22 hr a day -Free water flushes at 25 ml/hr -Fluid restriction 1500 ml/day Health maintenance: Dispo:telemetry DVT prophylaxis: heparin sc Diet: tube feeds, fluid restriction 1500 cc/day CODE STATUS: DNR Plan of care discussed with attending Dr. Minaya, PGY-[address] Moreno and PGY-[address] Farah. Amarilys Valdez MD, PGY 1. Attending Provider Attestation/Addendum Em, Marlena Minaya DO, attest that I was physically present for the tapia portions of the service and evaluated the patient with the resident and I reviewed and discussed the case with the resident and agree with the resident's findings and plans of care as documented above Asaeltent seen and evaluated this AM. Patient appears at baseline and continues to have decreased breath sounds in left lung field. Pending pleurx catheter. Patient can be dsicharged back to Subacute once this is done. No acute events overngiht. No changes with respiratory status and patient remains on Blow-by
--- NOTE | 2024-06-14 16:48 | PC.SS ---
SS update: plan is to d/c the patient to [facility] subacute tomorrow.
[2024-06-14] MEDS: CADEXOMER IODINE GEL 40 GM TUBE TOP (22:14)
[2024-06-14] MEDS: LACTULOSE SYRUP 20 GM/30 ML UDC 10 GM PO (22:36)
[2024-06-15] VITALS (8 sets, daily range): BP systolic 136–159; BP diastolic 66–77; PULSE 74–96; RESP 17–26; TEMP 36.2–36.8; O2SAT 93–98
[2024-06-15] MEDS: PIPER/TAZO 3.375 GM PREMIX 3.375 GM/50 ML BAG IV (05:04)
[2024-06-15] MEDS: INSULIN LISPRO (AdmeLOG) 1 UNIT/0.01 ML UNIT SC ×2 (05:20→11:41)
[2024-06-15 06:03] LABS: Basophils # (Auto) 0.1 Thou/mm3 (0.0-0.2); Basophils % (Auto) 0 % (0-2.5); Eosinophils # (Auto) 0.3 Thou/mm3 (0.0-0.5); Eosinophils % (Auto) 2 % (0-10); Hematocrit 26.5 % (36.0-46.0); Immature Granulocytes % (Auto) 1 % (0-0); Immature Granulocytes Auto 0.14 Thou/mm3 (0.00-0.00); Lymphocytes # (Auto) 1.6 Thou/mm3 (1.0-4.8); Lymphocytes % (Auto) 11 % (10-50); Mean Corpuscular HGB Conc 32.5 g/dl (31.0-37.0); Mean Corpuscular Hemoglobin 27.6 pg (25.0-35.0); Mean Corpuscular Volume 85 fL (80-100); Monocytes # (Auto) 1.1 Thou/mm3 (0.0-0.8); Monocytes % (Auto) 7 % (0-12); Neutrophils # (Auto) 11.5 Thou/mm3 (1.8-7.7); Neutrophils % (Auto) 79 % (37-80); Nucleated Red Blood Cell % 0 /100 WBC (0); Platelet Count 415 Thou/mm3 (140-440); RDW Standard Deviation 45.8 fL (36.4-46.3); Red Blood Count 3.12 Miln/mm3 (4.00-5.20); White Blood Count 14.6 Thou/mm3 (3.6-11.0)
[2024-06-15 06:07] LABS: Hemoglobin 8.6 g/dL (12.0-16.0)
[2024-06-15 06:25] LABS: Anion Gap 9 (7-16); BUN/Creatinine Ratio 33 Ratio (12-20); Blood Urea Nitrogen 33 mg/dL (9-23); Calcium 8.5 mg/dL (8.3-10.6); Carbon Dioxide 32.7 mMol/L (20.0-31.0); Chloride 94 mMol/L (98-107); Estimated Creatinine Clearance 32.2 mL/min (>60); Glucose 218 mg/dL (74-106); Osmolality,Calculated 286 (275-295); Potassium 4.1 mMol/L (3.4-5.1); Sodium 136 mMol/L (136-145); eGFR 56 See Note
--- NOTE | 2024-06-15 07:00 | XR_ITS ---
EXAMINATION: Attempted Pleurx catheter placement Fluoroscopy AP chest single view Exam date and time: June 15, 2024 1451 hours INDICATIONS: Shortness of breath, chronic with recurrent large left pleural effusions TECHNIQUE: Ultrasound multiple images left hemithorax obtained with no safe access site for needle access into the left pleural space Marked enlargement cardiac contour adjacent to the entrance site of the pleural fluid in the left hemithorax IMPRESSION: Multiple ultrasound images left hemithorax demonstrate significantly enlarged cardiac contour with no safe needle access site for placement of a Pleurx catheter
--- NOTE | 2024-06-15 08:05 | XR_ITS ---
Examination: Ultrasound left hemithorax Exam date and time: June 15, 2024 1440 hours INDICATIONS: Ultrasound localization for left pleural fluid, preop Pleurx catheter placement FINDINGS: Multiple sonographic images demonstrate no safe ultrasound-guided needle access to left pleural fluid, marked enlarged cardiac contour adjacent to the pleural fluid on all images IMPRESSION: No safe ultrasound-guided access site for Pleurx catheter placement
[2024-06-15] MEDS: POLYETHYLENE GLYCOL 17 GM PACKET GT (08:26)
[2024-06-15] MEDS: LACTULOSE SYRUP 20 GM/30 ML UDC 10 GM PO (08:26)
[2024-06-15] MEDS: AMIODARONE HCL 200 MG TABLET GT (08:26)
--- NOTE | 2024-06-15 11:40 | PC.SS ---
Patient has d/c orders to return to subacute. SS spoke to subacute charge nurse and they are aware. Dr. Hernandez is agreable. SS updated floor nurse. Report xt. [id number]. SS updated patient's son, Rashel. SS will set up packet for discharge. Subacute prefers patient down early as it is considered a new admit.
[2024-06-15] MEDS: LIDOCAINE INJ PF 1% 30 ML VIAL 8 ML INFL (15:27)
--- NOTE | 2024-06-15 15:47 | PC.NURSE ---
Pleurx drained attempted, unsuccessful.
--- NOTE | 2024-06-20 15:13 | ESDS_ITS ---
Patient Name: DAJUAN PAZ : 1940 <Statement entered by Marlena Minaya DO - 06/16/24 08:36> I, Marlena Minaya DO, attest that I was physically present for the tapia portions of the service and evaluated the patient with the resident and I reviewed and discussed the case with the resident and agree with the resident's findings and plans of care as documented above Planned Discharge Date 06/15/24 DS: Providers Provider Date of admission: 05/30/24 16:45 Primary care physician: Physician No Primary/Family Admitting Provider: Misha Hernandez MD Attending Provider on Admission: Misha Hernandez MD Consults: 06/05/24 15:45 Referral Nutritional Services Routine Comment: 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 Due to patient being nonverbal, most of the history was gathered through the chart review. In the ED she was septic, febrile, tachycardic, tachypneic, saturation 90% on 40% FiO2 blow-by. Labs showed leukocytosis 16.4, hemoglobin 8.8, troponin 0.190. UA was negative for UTI. Patient was admitted for treatment and management sepsis secondary to pneumonia. She was started on antibiotics, CT showed significant bilateral pleural effusion. Patient had a Pleurx catheter placed during her previous admission on the right side, 1 L of yellow fluid was drained on 06/10/2024. Repeat chest x-ray showed significant improvement in the right-sided pleural effusion, negative for pneumothorax. IR guided left-sided Pleurx catheter placement was ordered, was unsuccessful after 2 attempts. Patient's oxygen requirements has gone down, she was afebrile. Had a discussion with the family member, decision made maker Her Rashel regarding poor prognosis and overall serious condition that could lead to the demise in the nearby future, explained about the option of comfort care, decision maker said that he needs to talk to the family regarding that decision. Patient has finished antibiotics course, was seen and examined at the bedside and was medically cleared for discharge back to the subacute facility with recommendations. Discharge recommendations: Patient is stable to discharged back to subacute. If there is a change in her respiratory status patient can be sent to the ER and we recommend drainage of PleurX catheters as she has a recurrent malignant effusions. For Pleurx drainage instructions: https:/ [email or web address]- [email or web address] web- assets/[email or web address]/documents/ [email or web address]% 20- %20PeritX%20wall%20chart%20%28English% 29.pdf Wound care: 1) Right flank surgical incision: cleanse with wound cleanser, pat dry, apply skin prep and cover with rectangle single layer foam allevyn dressing cut with split for tubing. Ensure remaining tubing padded to not cause skin breakdown. Change q3d/PRN for soiling or falling off. 2) Sacral stage 4: irrigate with normal saline, pat dry, fill wound with iodosorb gel. Skin prep to wound edges and secure with allyven dressing. Change q2d and PRN for falling off or soiling Side to side repositioning as tolerated. Pleurx catheter draining: * Set up a clean area to open supplies. * Wash your hands and put on gloves. * Clamp the rolling clamp on the catheter to close it. * Remove the old cap on the catheter and throw it out. * Hold the catheter with one hand and clean the end of it with an alcohol swab with the other hand. * Insert this drainage line into the cleaned end of the PleurX? catheter. * Push the white plunger into the bottle top. Undo the clamp on the PleurX? catheter line. * You can slow down the flow by rolling the clamp on the catheter line. * Do not drain more than 1L of fluid. * Once you are done draining, clamp the roller closed on the catheter. * Remove the drainage line that is connected to the bottle. * Clean the end of the catheter again with an alcohol swab. * Place a new cap on the end of the catheter. -Take the rest of the medications as prescribed Hospital diagnoses: #Acute hypoxic respiratory failure 2/2 #Sepsis secondary to pneumonia #Bilateral pleural effusions #VAP Pneumonia #Chronic tracheostomy #Suspected malignancy #Essential hypertension #Atrial fibrillation #NSTEMI likely type II #Hyperlipidemia #IDDM type II #Deep sacral ulcer #Chronic constipation #Chronic PEG tube Plan of care discussed with attending Dr. Minaya and PGY-[address] Farha. Amarilys Valdez MD, PGY 1. Time Spent with Patient Time attestation: Total time spent providing and/or coordinating discharge services: Time spent: Greater than 30 minutes Exam Vital Signs Temp Pulse Resp BP Pulse Ox O2 Del Method O2 Flow Rate 103.5 F H 118 H 33 H 122/72 96 Blow-by 12 06/08/24 21:03 06/08/24 21:03 06/08/24 20:16 06/08/24 21:03 06/08/24 20:16 06/08/24 16:52 06/08/24 20:16 FiO2 50 06/08/24 20:16 Narrative Exam Physical Exam General: Awake and in no acute distress. Nonverbal (tracheostomy). HEENT: Normocephalic, atraumatic, mucous membranes moist. Heart: Regular rate and rhythm, no murmurs. Lungs: Diffuse rhonchi. Respiratory sounds are decreased in the lower chest area, more on the left. Pleurx cath site unremarkable. Abdomen: Soft, nondistended, nontender, positive bowel sounds. ?No guarding or rebound tenderness. Neurologic: Alert and oriented x0, no gross neurological deficit, does not follow commands. Extremities: No edema. Skin: No rash or ecchymoses. Discharge Plan Plan Patient Disposition: Xfer [facility] Acute Prescriptions/Referrals Prescriptions/Med Rec: No Action magnesium hydroxide [Milk of Magnesia] 400 mg/5 mL suspension 30 ml PO QDAY PRN (Reason: constipation) polyethylene glycol 3350 [Miralax] 17 gram/dose powder 17 g feeding tube QDAY furosemide 20 mg tablet 20 mg feeding tube QDAY ascorbic acid (vitamin C) [Vitamin C] 500 mg tablet 500 mg feeding tube BID multivitamin [Daily Multi-Vitamin] Tablet 1 tab feeding tube QAM zinc sulfate 50 mg zinc (220 mg) capsule 50 mg feeding tube QDAY sodium chloride 1,000 mg tablet,soluble 1,000 mg feeding tube QDAY carbamide peroxide 6.5 % drops 5 drp otic (ear) .Q61 atorvastatin 80 mg tablet 80 mg feeding tube HS acetaminophen 325 mg tablet 325 mg feeding tube Q6H PRN (Reason: fever or pain) ipratropium-albuterol 0.5 mg-3 mg(2.5 mg base)/3 mL solution for nebulization 3 ml INHALATION Q6H PRN (Reason: shortness of breath) amiodarone 200 mg tablet 200 mg feeding tube DAILY amlodipine 10 mg tablet 10 mg feeding tube QDAY bisacodyl [Gentle Laxative (bisacodyl)] 5 mg tablet,delayed release (DR/EC) 10 mg feeding tube Q6H PRN (Reason: constipation) Novolin R FlexPen 100 unit/mL (3 mL) insulin pen 1 sliding scale dose SUBCUT Q6H metoprolol tartrate 25 mg tablet 25 mg feeding tube Q12H lactulose [Enulose] 10 gram/15 mL solution 10 g feeding tube Q6H sennosides [Black-Draught Lax-Senna] 8.6 mg tablet 8.6 mg feeding tube BID Calcium 600 + D(3) 600 mg-5 mcg (200 unit) capsule 1 cap PO DAILY Rx Instructions: per Peg tube Referrals: No Primary/Family,Physician [Primary Care Provider] - Patient/Caregiver Discharge Instructions Print Language: Hmong Stand Alone Forms: Rani Award Info., Patient Portal Info Letter Quality Discharge Quality Measures VTE prophylaxis CC: NO PRIMARY/FAMILY,PHYSICIAN; MTDD
== END 2024-06-15 15:15 | DRG 871 ==
LOC: SERX 06-09 04:27 → SERHOLD 06-09 05:11 → S3NX 06-09 15:30
PROVIDERS: Radiology Diagnostic Radiology; Student in an Organized Health Care Education/Training Program; Admitting Provider Internal Medicine; Emergency Provider Emergency Medicine; PCP Specialist; Visit Provider Internal Medicine
DX: A41.9 Sepsis, unspecified organism (principal); I21.A1 Myocardial infarction type 2; J96.21 Acute and chronic respiratory failure with hypoxia; L89.154 Pressure ulcer of sacral region, stage 4; I48.20 Chronic atrial fibrillation, unspecified; M46.28 Osteomyelitis of vertebra, sacral and sacrococcygeal region; J95.851 Ventilator associated pneumonia; I50.30 Unspecified diastolic (congestive) heart failure; J91.0 Malignant pleural effusion; E11.69 Type 2 diabetes mellitus with other specified complication; I11.0 Hypertensive heart disease with heart failure; E04.2 Nontoxic multinodular goiter; K59.09 Other constipation; G40.909 Epilepsy, unspecified, not intractable, without status epilepticus; I69.391 Dysphagia following cerebral infarction; E78.5 Hyperlipidemia, unspecified; I69.320 Aphasia following cerebral infarction; Z79.4 Long term (current) use of insulin; R13.10 Dysphagia, unspecified; C80.1 Malignant (primary) neoplasm, unspecified; Z93.0 Tracheostomy status; Y95 Nosocomial condition; Z93.1 Gastrostomy status; Z66 Do not resuscitate; Z74.01 Bed confinement status; Z51.5 Encounter for palliative care; Y84.8 Other medical procedures as the cause of abnormal reaction of the patient, or of later complication, without mention of misadventure at the time of the procedure; Z79.899 Other long term (current) drug therapy; Z79.01 Long term (current) use of anticoagulants
CPT/HCPCS: 36415; 71045; 71250; 71260; 74177; 75989; 76998; 76999; 80048; 80053; 81001; 83605; 83615; 83690; 83735; 83880; 84100; 84145; 84443; 84484; 85025; 85610; 85730; 87040; 87081; 87086; 87811; 93005; 93225; 94640; 96361; 96365; 99291; A4300; A4649; A7048; A9270; J1643; J1815; J1940; J2543; J3010; J3490; J7030; J7050; Q9967

== ENCOUNTER 2024-06-23 15:15 | Emergency (ER) | payer MEDICARE, OTHER, SELFPAY ==
[2024-06-23 15:26] VITALS: BP 118/55; PULSE 70; RESP 28; TEMP 37.4; O2SAT 96
[2024-06-23 15:27] VITALS: BMI 19.1
--- NOTE | 2024-06-23 15:41 | EKG_ITS ---
[facility] Test Date: 2024-06-23 Pat Name: DAJUAN PAZ Department: Room: - Gender: Female [employer] Floater: : 1940 Requested By: Kaur Camilo Order Number: [id number] Reading MD: Kaur Camilo Measurements Intervals [place] Rate: 78 P: 4 IN: 164 QRS: -27 QRSD: 91 T: 3 QT: 409 QTc: 467 Interpretive Statements SINUS RHYTHM BORDERLINE LEFT AXIS DEVIATION [QRS AXIS < -20] ST DEVIATION AND MODERATE T-WAVE ABNORMALITY, CONSIDER ANTERIOR ISCHEMIA [-0.1+ mV T-WAVE IN V3/V4] Compared to ECG 06/08/2024 22:06:08 Possible ischemia now present T-wave abnormality still present /store/S0/[id number]/[id number].pdf
--- NOTE | 2024-06-23 15:53 | EDNOTE_ITS ---
ED General RME/HPI General Chief complaint: Fever Stated complaint: FEVER Time Seen by Provider: 06/23/24 15:40 Arrival date/time: 06/23/24 15:15 RME / HPI RME / HPI narrative: DR. TAYLOR MAIN ED EVALUATION: 83 year old female s/p tracheostomy 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, seizure disorder, A-fib on amiodarone, primary hypertension, IDDM type II, PEG tube presents to the Emergency Department from our subacute unit with complaint of fever today. No further history obtainable at this time. No other complaints reported by subacute nurse. Related Data Home Medications ?Medication ?Instructions ?Recorded ?Confirmed acetaminophen 325 mg tablet 325 mg feeding tube Q6H TN N fever 04/25/24 06/09/24 or pain amiodarone 200 mg tablet 200 mg feeding tube DAILY 06/09/24 amlodipine 10 mg tablet 10 mg feeding tube QDAY 03/2906/09/24 atorvastatin 80 mg tablet 80 mg feeding tube HS 06/09/24 bisacodyl 5 mg tablet,delayed 10 mg feeding tube Q6H P RN 04/25/24 06/09/24 release (Gentle Laxative constipation (bisacodyl)) insulin regular human 100 unit/mL 1 sliding scale dose subcut Q6H 04/25/24 06/09/24 (3 mL) subcutaneous pen (Novolin R FlexPen) ipratropium 0.5 mg-albuterol 3 mg 3 ml inhalation Q6H PRN shortness 04/25/24 06/09/24 (2.5 mg base)/3 mL nebulization of breath soln lactulose 10 gram/15 mL oral 10 g feeding tube Q6H 06/09/24 solution (Enulose) metoprolol tartrate 25 mg tablet 25 mg feeding tube Q1 2H 04/25/24 06/09/24 calcium 600 mg (as 1 cap PO DAILY 05/20/2405/26 carbonate)-vitamin D3 5 mcg (200 unit) capsule (Calcium 600 + D(3)) sennosides 8.6 mg tablet 8.6 mg feeding tube BID 04/2906/09/24 (Black-Draught Lax-[place]) ascorbic acid (vitamin C) 500 mg 500 mg feeding tube B ID 06/09/24 06/09/24 tablet (Vitamin C) carbamide peroxide 6.5 % ear drops 5 drp otic (ear) .Q 61 06/09/24 06/09/24 furosemide 20 mg tablet 20 mg feeding tube QDAY 05/2606/09/24 magnesium hydroxide 400 mg/5 mL 30 ml PO QDAY PRN cons tipation 06/09/24 06/09/24 oral suspension (Milk of Magnesia) multivitamin (Daily Multi-Vitamin 1 tab feeding tube Q AM 06/09/24 06/09/24 tablet) polyethylene glycol 3350 17 17 g feeding tube QDAY 06/09/24 gram/dose oral powder (Miralax) sodium chloride 1,000 mg soluble 1,000 mg feeding tube QDAY 06/09/24 06/09/24 tablet zinc sulfate 50 mg zinc (220 mg) 50 mg feeding tube QD AY 06/09/24 06/09/24 capsule Previous Rx's ?Medication ?Instructions ?Recorded ceftriaxone 1 gram solution for 1 g IV QDAY 5 days #5 ea 06/23/24 injection Allergies Allergy/AdvReac Type Severity Reaction Status Date / Time No Known Allergies Allergy Verified 05/25/24 08:41 Review of Systems Review of Systems ROS Unobtainable: unobtainable due to medical condition Past Medical History Past Medical History NEUROLOGIC: Positive Neurological Disorders, Cerebrovascular Accident and Seizures; Negative Traumatic Brain Injury CARDIAC: Positive Cardiac Disorders, Atrial Fibrillation, Hypercholesterolemia, Edema and Hypertension; Negative Congestive Heart Failure RESPIRATORY: Negative Chronic Obstructive Pulmonary Disease (COPD) or Asthma GASTROINTESTINAL: Negative Gastrointestinal Disorders or Hepatitis GENITOURINARY: Negative Genitourinary Disorders or Renal Disease REPRODUCTIVE: Negative Pelvic Inflammatory Disease MUSCULOSKELETAL: Negative Musculoskeletal Disorders ENDOCRINE: Positive Endocrine Disorders and Diabetes Mellitus Type 2; Negative Diabetes Mellitus Type 1 or Hypoglycemia HEMATOLOGIC: Negative Blood Disorders or Sickle Cell Disease OTHER HISTORY: Positive Blood Transfusions Surgical History SURGICAL: Positive Tracheostomy and Gastrostomy Social History SMOKING STATUS: Unknown if ever smoked SECOND HAND EXPOSURE: No SUBSTANCE USE: does not use ALCOHOL: Never ED Exam Narrative Physical exam: GENERAL APPEARANCE: spontaneous eye opening but no cognizant response to simple commands, at baseline bed bound, febrile VITALS: All vitals were reviewed and the pulse ox is 98% on tracheostomy at flow rate 8, FIO2 30. HEENT: Normocephalic, atraumatic; pupils equal, round, reactive to light; EOMI; mucous membranes pink, moist; oropharynx clear NECK: Supple, tracheostomy in place LUNGS: CTABL; no wheezes, no rales, no rhonchi HEART: Regular rate, regular rhythm; normal S1, S2; no murmurs ABDOMEN: non distended; normal BS; soft, no tenderness, no guarding, no rebound; no masses, no organomegaly, no hernia BACK: no CVA tenderness EXTREMITIES: atraumatic; no edema NEUROLOGIC: awake, at baseline PSYCHIATRIC: at baseline SKIN: warm, dry, normal color; no rashes Course Quality Measures none Orders Category Date Time Status Bedside COVID-19 Antigen Test NOW Care 06/23/24 15:41 Completed Bedside Influenza A&B Antigen Test NOW Care 06/23/24 15:41 Completed Stone Carver NOW Care 06/23/24 15:41 Completed EKG (ED ONLY) *Do not use* NOW Care 06/23/24 15:41 Completed EKG (ED Only) Stat Exams 06/23/24 15:41 Draft B-Type Natriuretic Peptide Stat Lab 06/23/24 15:54 Completed Blood Culture (Lab) Stat Lab 06/23/24 15:54 Completed CBC Stat Lab 06/23/24 15:54 Completed Comprehensive Metabolic Panel Stat Lab 06/23/24 15:54 Completed Lactate (Lactic Acid) Stat Lab 06/23/24 15:54 Completed Lipase Stat Lab 06/23/24 15:54 Completed Magnesium Stat Lab 06/23/24 15:54 Completed Partial Thromboplastin Time Stat Lab 06/23/24 15:54 Completed Procalcitonin Stat Lab 06/23/24 15:54 Completed Prothrombin Time with INR Stat Lab 06/23/24 15:54 Completed Troponin I Stat Lab 06/23/24 15:54 Completed Urinalysis Stat Lab 06/23/24 17:08 Completed Urine Culture Stat Lab 06/23/24 17:08 Completed cefTRIAXone/D5w 1gm IV premix [Rocephin/D5w 1gm IV Med 06/23/24 17:57 Discontinued premix] 1 gm in 50 ml IV X1 Vital Signs Vital signs: Vital Signs Temperature 99.4 F 06/23/24 15:26 Pulse Rate 70 06/23/24 15:26 Respiratory Rate 28 H 06/23/24 15:26 Blood Pressure 118/55 L 06/23/24 15:26 Pulse Oximetry (%) 96 06/23/24 15:26 Oxygen Delivery Method Trach Collar 06/23/24 15:26 Oxygen Flow Rate 8 06/23/24 15:26 Fraction of Inspired Oxygen 30 06/23/24 15:26 [facility] Patient data External records reviewed:: [facility] previous records (Reviewed last admission discharge dated 06/20/24, patient admitted for the following: Bilateral pleural effusion) Clinical information provided by:: other (specify) (subacute nurse) Social determinants that could affect healthcare access:: housing (subacute unit) Patient has the following chronic illnesses:: s/p 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 Interpreted by me: sinus rhythm, rate 78, Q waves in lead 3 and V1-V2, diffuse flattening of ST segment, QT prolongation) Lab and/or radiology exams considered but not ordered:: none Interpretation Summary: See above under MDM narrative. Medications Medications considered but not ordered:: none Medication administrations:: Medication Administration History Discontinued Medications Ceftriaxone Sodium/Dextrose (Rocephin/D5w 1gm Iv Premix) 1 gm in 50 mls @ 100 mls/hr IV X1 ONE Stop: 06/23/24 18:26 Last Infusion: 06/23/24 19:12 Dose: Infused Documented By: Admin: 06/23/24 18:48 Dose: 100 mls/hr Documented By: JT see above if any Consultations Consultation(s) initiated? (list below): No Diagnosis Differential Diagnosis ED Complaint MDM: sepsis, viral infection, pneumonia Most likely diagnosis given after review of the tests above:: Acute UTI CHF Admission Indicated Admission indicated?: not indicated Explain why admission is indicated or not indicated:: treatment available in subacute Admission Request Was there a request for admission?: No Disposition Plan Disposition Plan: Discharge Discharge Attestation Discharge Attestation: The patient and all family members were given an opportunity to ask questions and understood the discharge instructions. Discharge instructions specifically effects, indications for sooner follow up or return to the emergency department, and the expected course of current diagnosis. Patient condition: Stable Medical Decision Making MDM Narrative MDM Narrative: I, Eliza Santillan am scribing for and in the presence of Dr. Taylor. Differential Diagnosis Differential Diagnosis: sepsis, viral infection, pneumonia Lab Data 06/23/24 15:54 06/23/24 15:54 Labs: Lab Results 06/23/24 06/23/24 Range/Units 15:54 17:08 WBC 22.8 H D (3.6-11.0) Thou/mm3 RBC 3.14 L (4.00-5.20) Miln/mm3 Hgb 8.6 L (12.0-16.0) g/dL Hct 25.2 L (36.0-46.0) % MCV 80 (80-100) fL MCH 27.4 (25.0-35.0) pg MCHC 34.1 (31.0-37.0) g/dl RDW Std Deviation 46.5 H (36.4-46.3) fL Plt Count 367 D (140-440) Thou/mm3 Neut % (Auto) 89 H (37-80) % Lymph % (Auto) 3 L (10-50) % [place] % (Auto) 7 (0-12) % Eos % (Auto) 0 (0-10) % Baso % (Auto) 0 (0-2.5) % Neut # (Auto) 20.3 H (1.8-7.7) Thou/mm3 Lymph # (Auto) 0.8 L (1.0-4.8) Thou/mm3 [place] # (Auto) 1.5 H (0.0-0.8) Thou/mm3 Eos # (Auto) 0.0 (0.0-0.5) Thou/mm3 Baso # (Auto) 0.1 (0.0-0.2) Thou/mm3 Immature Gran # (Auto) 0.10 H (0.00-0.00) Thou/mm3 Absolute Nucleated RBC 0.00 (0.00-0.00) Thou/mm3 Immature Gran % 0 (0-0) % Nucleated RBC % 0 (0) /100 WBC PT 11.5 (9.0-12.2) Seconds INR 1.1 (0.9-1.3) APTT 34.8 (22.0-36.0) Seconds Sodium 125 L (136-145) mMol/L Potassium 4.5 (3.4-5.1) mMol/L Chloride 92 L (98-107) mMol/L Carbon Dioxide 28.5 (20.0-31.0) mMol/L Anion Gap 5 L (7-16) BUN 35 H (9-23) mg/dL Creatinine 0.9 (0.6-1.3) mg/dL Estim Creat Clear Calc 34.4 L (>60) mL/min eGFR > 60 (60 - ) See Note BUN/Creatinine Ratio 39 H (12-20) Ratio Glucose 184 H (74-106) mg/dL Calculated Osmolality 264 L (275-295) Lactic Acid 1.8 (0.4-2.0) mMol/L Calcium 8.1 L (8.3-10.6) mg/dL Corrected Calcium 9.0 (8.5-10.1) mg/dL Magnesium 2.1 (1.6-2.6) mg/dL Total Bilirubin 0.4 (0.3-1.2) mg/dL AST 24 (0-34) U/L ALT 25 (10-49) U/L Alkaline Phosphatase 78 (46-116) U/L Troponin I 0.020 (0.0-0.045) ng/mL B-Natriuretic Peptide 1037 H* (0-100) pg/mL Total Protein 6.4 (5.7-8.2) gm/dL Albumin 2.9 L (3.4-4.8) gm/dL Globulin 3.5 (2.3-3.5) gm/dL Albumin/Globulin Ratio 0.8 L (1.2-2.2) Lipase 63 H (12-53) U/L Procalcitonin 0.30 (0.0-0.49) ng/ml Ur Collection Type Clean Catch Urine Color Yellow (Lt Yel-Yel) Urine Clarity Turbid A (Clear/Hazy) Urine pH 6.0 (5.0-7.0) Ur Specific [place] 1.017 (1.001-1.035) Urine Protein 3+ A (Neg - Trace) Urine Glucose (UA) Negative (Negative) Urine Ketones Negative (Negative) Urine Blood Trace (Negative) Urine Nitrite Negative (Negative) Urine Bilirubin Negative (Negative) Urine Urobilinogen (Auto) Negative (0.0-1.0) mg/dL Ur Leukocyte Esterase Positive (Negative) Urine RBC 13 H (0-3) /hpf Urine WBC 12 H (0-5) /hpf Ur Squamous Epith Cells < 1 (0-5) /hpf Ur Transition Epith Cell < 1 (0-5) /hpf Amorphous Crystals Present A (Absent) Urine Bacteria Rare (None) Discharge Plan Plan 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/in 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 Prescriptions/Referrals Prescriptions/Med Rec: New ceftriaxone 1 gram recon soln 1 g IV QDAY 5 Days Qty: 5 0RF No Action magnesium hydroxide [Milk of Magnesia] 400 mg/5 mL suspension 30 ml PO QDAY PRN (Reason: constipation) polyethylene glycol 3350 [Miralax] 17 gram/dose powder 17 g feeding tube QDAY furosemide 20 mg tablet 20 mg feeding tube QDAY ascorbic acid (vitamin C) [Vitamin C] 500 mg tablet 500 mg feeding tube BID multivitamin [Daily Multi-Vitamin] Tablet 1 tab feeding tube QAM zinc sulfate 50 mg zinc (220 mg) capsule 50 mg feeding tube QDAY sodium chloride 1,000 mg tablet,soluble 1,000 mg feeding tube QDAY carbamide peroxide 6.5 % drops 5 drp otic (ear) .Q61 atorvastatin 80 mg tablet 80 mg feeding tube HS acetaminophen 325 mg tablet 325 mg feeding tube Q6H PRN (Reason: fever or pain) ipratropium-albuterol 0.5 mg-3 mg(2.5 mg base)/3 mL solution for nebulization 3 ml INHALATION Q6H PRN (Reason: shortness of breath) amiodarone 200 mg tablet 200 mg feeding tube DAILY amlodipine 10 mg tablet 10 mg feeding tube QDAY bisacodyl [Gentle Laxative (bisacodyl)] 5 mg tablet,delayed release (DR/EC) 10 mg feeding tube Q6H PRN (Reason: constipation) Novolin R FlexPen 100 unit/mL (3 mL) insulin pen 1 sliding scale dose SUBCUT Q6H metoprolol tartrate 25 mg tablet 25 mg feeding tube Q12H lactulose [Enulose] 10 gram/15 mL solution 10 g feeding tube Q6H sennosides [Black-Draught Lax-[place]] 8.6 mg tablet 8.6 mg feeding tube BID Calcium 600 + D(3) 600 mg-5 mcg (200 unit) capsule 1 cap PO DAILY Rx Instructions: per Peg tube Problem List Clinical Impression: Acute UTI, CHF (congestive heart failure) Patient/Caregiver Discharge Instructions Education Materials: ED CYSTITIS Female Adult Print Language: Hmong
[2024-06-23 16:02] LABS: Lactate (Lactic Acid) 1.8 mMol/L (0.4-2.0)
[2024-06-23 16:07] LABS: Basophils # (Auto) 0.1 Thou/mm3 (0.0-0.2); Basophils % (Auto) 0 % (0-2.5); Eosinophils % (Auto) 0 % (0-10); Hematocrit 25.2 % (36.0-46.0); Hemoglobin 8.6 g/dL (12.0-16.0); Immature Granulocytes % (Auto) 0 % (0-0); Lymphocytes # (Auto) 0.8 Thou/mm3 (1.0-4.8); Lymphocytes % (Auto) 3 % (10-50); Mean Corpuscular HGB Conc 34.1 g/dl (31.0-37.0); Mean Corpuscular Hemoglobin 27.4 pg (25.0-35.0); Mean Corpuscular Volume 80 fL (80-100); Monocytes # (Auto) 1.5 Thou/mm3 (0.0-0.8); Monocytes % (Auto) 7 % (0-12); Neutrophils # (Auto) 20.3 Thou/mm3 (1.8-7.7); Neutrophils % (Auto) 89 % (37-80); Nucleated Red Blood Cell % 0 /100 WBC (0); Platelet Count 367 Thou/mm3 (140-440); RDW Standard Deviation 46.5 fL (36.4-46.3); Red Blood Count 3.14 Miln/mm3 (4.00-5.20); White Blood Count 22.8 Thou/mm3 (3.6-11.0)
[2024-06-23 16:14] VITALS: BP 105/58; PULSE 69; RESP 26; O2SAT 98
[2024-06-23 16:23] LABS: B-Type Natriuretic Peptide 1037 pg/mL (0-100)
[2024-06-23 16:30] LABS: INR 1.1 (0.9-1.3); Partial Thromboplastin Time 34.8 Seconds (22.0-36.0); Prothrombin Time 11.5 Seconds (9.0-12.2)
[2024-06-23 16:33] LABS: Alanine Aminotransferase 25 U/L (10-49); Albumin, Serum 2.9 gm/dL (3.4-4.8); Albumin/Globulin Ratio 0.8 (1.2-2.2); Alkaline Phosphatase 78 U/L (46-116); Anion Gap 5 (7-16); Aspartate Amino Transferase 24 U/L (0-34); BUN/Creatinine Ratio 39 Ratio (12-20); Bilirubin,Total 0.4 mg/dL (0.3-1.2); Blood Urea Nitrogen 35 mg/dL (9-23); Calcium 8.1 mg/dL (8.3-10.6); Carbon Dioxide 28.5 mMol/L (20.0-31.0); Chloride 92 mMol/L (98-107); Creatinine (Component) 0.9 mg/dL (0.6-1.3); Estimated Creatinine Clearance 34.4 mL/min (>60); Globulin 3.5 gm/dL (2.3-3.5); Glucose 184 mg/dL (74-106); Lipase 63 U/L (12-53); Magnesium 2.1 mg/dL (1.6-2.6); Osmolality,Calculated 264 (275-295); Potassium 4.5 mMol/L (3.4-5.1); Sodium 125 mMol/L (136-145); Total Protein 6.4 gm/dL (5.7-8.2); eGFR > 60 See Note
[2024-06-23 16:48] VITALS: PULSE 81; RESP 20; O2SAT 97
[2024-06-23 17:19] LABS: Collection Type, Urine Clean Catch
[2024-06-23 17:27] LABS: Amorphous Crystals,Urine Present (Absent); Bacteria,Urine Rare; Bilirubin,Urine Negative (Negative); Blood,Urine Trace (Negative); Clarity,Urine Turbid (Clear/Hazy); Color,Urine Yellow (Lt Yel-Yel); Glucose, Urine Negative (Negative); Ketones,Urine Negative (Negative); Leukocyte Esterase,Urine Positive (Negative); Nitrite,Urine Negative (Negative); Protein,Urine 3+ (Neg - Trace); RBC,Urine 13 /hpf (0-3); Specific Gravity,Urine 1.017 (1.001-1.035); Squamous Epithelial Cell,Urine < 1 /hpf (0-5); Transitional Epi Cells,Urine < 1 /hpf (0-5); Urobilinogen,Urine Negative mg/dL (0.0-1.0); WBC,Urine 12 /hpf (0-5)
[2024-06-23 18:33] VITALS: BP 115/56; PULSE 73; PULSE 78; RESP 23; RESP 25; TEMP 37.1; O2SAT 95
[2024-06-23] MEDS: cefTRIAXone/D5w 1gm IV premix 1 GM/50 ML BAG IV (18:48)
--- NOTE | 2024-06-23 19:47 | PC.NURSE ---
Pt resting quietly. Appears in NAD at this time. no fever at this time.
[2024-06-23 19:48] VITALS: BP 129/51; RESP 30; TEMP 37.1; O2SAT 92
[2024-06-23 20:36] VITALS: BP 140/65; PULSE 80; RESP 32; TEMP 37.1; O2SAT 92
== END 2024-06-23 20:42 | disposition skilled nursing facility (03) ==
PROVIDERS: Emergency Medicine; Emergency Provider Emergency Medicine
DX: N39.0 Urinary tract infection, site not specified (principal); I11.0 Hypertensive heart disease with heart failure; I50.9 Heart failure, unspecified; E11.9 Type 2 diabetes mellitus without complications; Z86.73 Personal history of transient ischemic attack (TIA), and cerebral infarction without residual deficits
CPT/HCPCS: 36415; 80053; 81001; 83605; 83690; 83735; 83880; 84145; 84484; 85025; 85610; 85730; 87040; 87077; 87086; 87186; 87400; 87811; 93005; 96365; 99284; J0696

== ENCOUNTER → 2024-06-27 | Outpatient (CLI) | payer MEDICARE, OTHER, SELFPAY ==
--- NOTE | 2024-06-27 12:00 | XR_ITS ---
Examination: Ultrasound guided left thoracentesis Ultrasound right hemithorax Ultrasound left hemithorax Exam date and time: June 27, 2024 1152 hours INDICATIONS: Difficulty breathing this week, history bilateral recurrent pleural effusions TECHNIQUE AND FINDINGS: Grayscale sonographic images hemithoraces demonstrate loculated right and moderate to large left pleural effusions Informed consent provided. Timeout performed. Skin prepped over the left hemithorax and sterile drape applied hand hygiene ultrasound sterile technique 1% lidocaine administered for local anesthesia Utilizing ultrasonographic guidance 5 Vincentian catheter placed in the left pleural space 950 cc pleural fluid removed IMPRESSION: Successful ultrasound-guided left thoracentesis, 950 cc pleural fluid removed Estimated blood loss 1 cc
--- NOTE | 2024-06-27 12:12 | XR_ITS ---
Examination: AP chest single view TECHNIQUE: AP upright portable chest single view Exam date and time: June 27, 2024 at 1300 hours Comparison June 25, 2024 INDICATIONS: Post left thoracentesis FINDINGS: Decrease in left pleural fluid Left apical pneumothorax, 5% Tracheostomy tube 8.9 cm above segundo IMPRESSION: Left apical pneumothorax 5%, recommend 1 hour follow-up chest film
== END | disposition home or self-care (01) ==
PROVIDERS: PCP Family Medicine; Referring Provider Family Medicine; Visit Provider Family Medicine
DX: J90 Pleural effusion, not elsewhere classified (principal); J93.9 Pneumothorax, unspecified
CPT/HCPCS: 32555; C1729

== ENCOUNTER 2024-06-29 21:56 | Inpatient (IN) | payer MEDICARE, OTHER, SELFPAY ==
--- NOTE | 2024-06-29 22:10 | EKG_ITS ---
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: : [id number] Requested By: ED Temporary Provider Order Number: [id number] Reading MD: ED Temporary Provider Measurements Intervals [place] Rate: 50 P: 168 [place]: 163 QRS: 221 QRSD: 158 T: 76 QT: 503 QTc: 459 Interpretive Statements SINUS BRADYCARDIA INTRAVENTRICULAR CONDUCTION DELAY [130+ ms QRS DURATION] LATERAL MYOCARDIAL INFARCTION , OF INDETERMINATE AGE [40+ ms Q WAVE AND/OR ST/T ABNORMALITY IN I/aVL/V5/V6] Compared to ECG 06/23/2024 16:49:48 Intraventricular conduction delay now present Myocardial infarct finding now present Sinus rhythm no longer present T-wave abnormality no longer present Possible ischemia no longer present /store/S0/[id number]/ecg/[id number].pdf
[2024-06-29 22:11] VITALS: BP 134/64; PULSE 46; RESP 32; TEMP 36.7; O2SAT 99
--- NOTE | 2024-06-29 22:20 | PC.NURSE ---
PT CAME FROM [facility]PARTMENT, BROUGHT TO ER VIA [facility]OSP[facility] BED TO ROOM 4 BY RN TRAINING AND DELIVERY AGENT FROM [facility], NURSE IS WORRIED PT HR IS ON 40'S AND [place], PT HAS GT TUBE, MUNOZ, HAS CHEST TUBE DRAIN AT LEFT CHEST AREA, PT WITH TRACH ON VENTILATOR, NO S/S OF PAIN, TEMP 99.1 RECTALLY, DECUBITUS ULCER NOTED AT COCCYX AREA.
--- NOTE | 2024-06-29 22:31 | PD.EDADULT ---
ED General RME/HPI General Chief complaint: General Adult/Misc Complain Stated complaint: LOW HR Time Seen by Provider: 06/29/24 22:17 Arrival date/time: 06/29/24 21:56 RME / HPI RME / HPI narrative: Dr. Eller?s Main ED Evaluation: 83yo female with a history of s/p tracheostomy 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, seizure disorder, A-fib on amiodarone, primary hypertension, IDDM type II, PEG tube brought in from subacute presents to the ED for a chief complaint of bradycardia. Per subacute staff, patient is on antibiotics for UTI. Patient was sent over for evaluation when they found her to be bradycardic in the 40s-50s. Full ROS is unobtainable due to the patient being nonverbal at baseline. Related Data Home Medications ?Medication ?Instructions ?Recorded ?Confirmed acetaminophen 325 mg tablet 325 mg feeding tube Q6H PRN fever 04/25/24 06/09/24 or pain amiodarone 200 mg tablet 200 mg feeding tube DAILY 04/25/24 06/09/24 amlodipine 10 mg tablet 10 mg feeding tube QDAY 04/25/24 06/09/24 atorvastatin 80 mg tablet 80 mg feeding tube HS 04/25/24 06/09/24 bisacodyl 5 mg tablet,delayed 10 mg feeding tube Q6H PRN 04/25/24 06/09/24 release (Gentle Laxative constipation (bisacodyl)) insulin regular human 100 unit/mL 1 sliding scale dose subcut Q6H 04/25/24 06/09/24 (3 mL) subcutaneous pen (Novolin R FlexPen) ipratropium 0.5 mg-albuterol 3 mg 3 ml inhalation Q6H PRN shortness 04/25/24 06/09/24 (2.5 mg base)/3 mL nebulization of breath soln lactulose 10 gram/15 mL oral 10 g feeding tube Q6H 04/25/24 06/09/24 solution (Enulose) metoprolol tartrate 25 mg tablet 25 mg feeding tube Q12H 04/25/24 06/09/24 calcium 600 mg (as 1 cap PO DAILY 05/20/24 06/09/24 carbonate)-vitamin D3 5 mcg (200 unit) capsule (Calcium 600 + D(3)) sennosides 8.6 mg tablet 8.6 mg feeding tube BID 05/20/24 06/09/24 (Black-Draught Lax-Senna) ascorbic acid (vitamin C) 500 mg 500 mg feeding tube BID 06/09/24 06/09/24 tablet (Vitamin C) carbamide peroxide 6.5 % ear drops 5 drp otic (ear) .Q61 06/09/24 06/09/24 furosemide 20 mg tablet 20 mg feeding tube QDAY 06/09/24 06/09/24 magnesium hydroxide 400 mg/5 mL 30 ml PO QDAY PRN constipation 06/09/24 06/09/24 oral suspension (Milk of Magnesia) multivitamin (Daily Multi-Vitamin 1 tab feeding tube QAM 06/09/24 06/09/24 tablet) polyethylene glycol 3350 17 17 g feeding tube QDAY 06/09/24 06/09/24 gram/dose oral powder (Miralax) sodium chloride 1,000 mg soluble 1,000 mg feeding tube QDAY 06/09/24 06/09/24 tablet zinc sulfate 50 mg zinc (220 mg) 50 mg feeding tube QDAY 06/09/24 06/09/24 capsule Previous Rx's ?Medication ?Instructions ?Recorded ceftriaxone 1 gram solution for 1 g IV QDAY 5 days #5 ea 06/23/24 injection Allergies Allergy/AdvReac Type Severity Reaction Status Date / Time No Known Allergies Allergy Verified 05/25/24 08:41 Review of Systems Review of Systems ROS Unobtainable: other (Patient is nonverbal at baseline.) Past Medical History Past Medical History NEUROLOGIC: Positive Neurological Disorders, Cerebrovascular Accident and Seizures; Negative Traumatic Brain Injury CARDIAC: Positive Cardiac Disorders, Atrial Fibrillation, Hypercholesterolemia, Edema and Hypertension; Negative Congestive Heart Failure RESPIRATORY: Negative Chronic Obstructive Pulmonary Disease (COPD) or Asthma GASTROINTESTINAL: Negative Gastrointestinal Disorders or Hepatitis GENITOURINARY: Negative Genitourinary Disorders or Renal Disease REPRODUCTIVE: Negative Pelvic Inflammatory Disease MUSCULOSKELETAL: Negative Musculoskeletal Disorders ENDOCRINE: Positive Endocrine Disorders and Diabetes Mellitus Type 2; Negative Diabetes Mellitus Type 1 or Hypoglycemia HEMATOLOGIC: Negative Blood Disorders or Sickle Cell Disease PSYCHO/SOCIAL: Negative Eating Disorder OTHER HISTORY: Positive Blood Transfusions; Negative Autoimmune Disease, Blood Transfusion Reaction, Anesthesia Reactions, Clostridium Difficile or Cancer Family History FAMILY HISTORY: Negative Family Psychiatric Problems, Family Respiratory Disorders, Family Cardiac Disorders, Family Gastrointestinal Problems, Family Cancer, Family Surgery or Family Anesthesia Reaction Surgical History SURGICAL: Positive Tracheostomy and Gastrostomy; Negative Cardiac Surgery, Nephrectomy, Joint Replacement, Neurologic Surgery or Mastectomy Social History SMOKING STATUS: Unknown if ever smoked SECOND HAND EXPOSURE: No SUBSTANCE USE: does not use ED Exam Narrative Physical exam: GENERAL APPEARANCE: awake, nonverbal at baseline, no acute distress VITALS: All vitals were reviewed and the pulse ox is 99% via mechanical ventilation, which is normal according to my interpretation. HEENT: Normocephalic, atraumatic; pupils equal, round, reactive to light; EOMI; mucous membranes pink, moist; oropharynx clear NECK: Supple LUNGS: CTABL; no wheezes, no rales, no rhonchi HEART: Regular rate, regular rhythm; normal S1, S2; no murmurs ABDOMEN: non distended; normal BS; soft, no tenderness, no guarding, no rebound; no masses, no organomegaly, no hernia; PEG tube BACK: no CVA tenderness EXTREMITIES: atraumatic; no edema; full body spastic contractures NEUROLOGIC: awake; nonverbal at baseline SKIN: warm, dry, normal color; no rashes Course Course Course Narrative: 0041: Labs resulted and show and elevated WBC count of 16.7 with a lactic acid of 2.2. Patient is tachypneic. Sepsis alert initiated. Orders made at this time are congruent with ED Adult Sepsis Order List. Re-evaluation is to be completed. NS IVF ordered. Quality Measures Possible source: pulmonary and genitourinary Blood cultures ordered: yes Antibiotic ordered: Yes Pertinent labs: 06/29/24 06/30/24 22:58 00:03 Lactic Acid 2.2 H mMol/L (0.4-2.0) Procalcitonin 0.96 H ng/ml (0.0-0.49) sepsis Orders Category Date Time Status Admit to Inpatient Status Routine Admission 06/30/24 02:17 Active Patient Condition Routine Admission 06/30/24 02:29 Ordered Bedside COVID-19 Antigen Test NOW Care 06/30/24 02:16 Active COVID-19 Screening Questionnaire NOW Care 06/30/24 02:15 Active Rn Heart STAT Care 06/29/24 22:37 Active Continuous Pulse Oximetry STAT Care 06/29/24 22:37 Completed EKG (ED ONLY) *Do not use* NOW Care 06/29/24 22:10 Completed EKG (ED ONLY) *Do not use* NOW Care 06/29/24 22:31 Completed Insert IV NOW Care 06/29/24 22:37 Active NPO STAT Care 06/29/24 22:37 Active Notify provider NEEDED Care 06/30/24 02:29 Active Obtain weight DAILY Care 06/30/24 02:30 Active Sequential Compression Device QSHIFT Care 06/30/24 02:29 Active Strict Intake and Output Routine Care 06/29/24 22:37 Ordered Transfuse,blood/blood products NOW Care 06/30/24 00:39 Active EKG (ED Only) Stat Exams 06/29/24 22:10 Draft EKG (ED Only) Stat Exams 06/29/24 22:31 Ordered XR chest 1V portable Stat Exams 06/29/24 22:34 Completed Arterial Blood Gas Stat Lab 06/29/24 22:53 Completed B-Type Natriuretic Peptide Stat Lab 06/29/24 22:58 Completed Blood Culture (Lab) Stat Lab 06/29/24 22:54 Received CBC AM DRAW Lab 06/30/24 05:00 Ordered CBC AM DRAW Lab 07/01/24 05:00 Ordered CBC AM DRAW Lab 07/02/24 05:00 Ordered CBC AM DRAW Lab 07/03/24 05:00 Ordered CBC Stat Lab 06/29/24 22:58 Completed Comprehensive Metabolic Panel AM DRAW Lab 06/30/24 05:00 Ordered Comprehensive Metabolic Panel AM DRAW Lab 07/01/24 05:00 Ordered Comprehensive Metabolic Panel AM DRAW Lab 07/02/24 05:00 Ordered Comprehensive Metabolic Panel AM DRAW Lab 07/03/24 05:00 Ordered Comprehensive Metabolic Panel Stat Lab 06/29/24 22:58 Completed LDH (Lactate Dehydrogenase) Stat Lab 06/29/24 22:58 Completed Lactate (Lactic Acid) Stat Lab 06/29/24 22:58 Completed Lactic Acid, 3 HR Stat Lab 06/30/24 02:49 Completed Lipase Stat Lab 06/29/24 22:58 Completed Magnesium Stat Lab 06/29/24 22:58 Completed Partial Thromboplastin Time Stat Lab 06/29/24 22:58 Completed Phosphorous Stat Lab 06/29/24 22:58 Completed Procalcitonin Stat Lab 06/29/24 22:58 Completed Prothrombin Time with INR AM DRAW Lab 06/30/24 05:00 Ordered Prothrombin Time with INR AM DRAW Lab 07/01/24 05:00 Ordered Prothrombin Time with INR Stat Lab 06/29/24 22:58 Completed Troponin I Stat Lab 06/29/24 22:58 Completed Type and Screen Stat Lab 06/30/24 01:01 Results Urinalysis Stat Lab 06/29/24 22:50 Completed Urine Culture Stat Lab 06/29/24 22:50 Received prbc [Red Blood Cells] Stat Lab 06/30/24 01:01 Results Doxycycline Inj [Vibramycin Inj] 100 mg Med 06/30/24 00:40 Discontinued Sodium Chloride 0.9% (Pop) [NS 0.9% mini bag] 100 ml IV X1 Lansoprazole [Prevacid] Med 06/30/24 09:00 Active 30 mg GT QDAY Magnesium Sulfate 2 GM Ivpb [Magnesium Sulfate Ivpb] Med 06/30/24 00:54 Discontinued 2 gm in 50 ml IV X1 Milk Of Magnesia Susp [Mom Susp] Med 06/30/24 02:29 Active 30 ml PO QDAY PRN Pharmacy Renal Dose Adjustment Med 06/30/24 09:00 Ordered 1 each XX QDAY Piper/Tazo Inj [Zosyn Inj] 4.5 gm Med 06/30/24 00:40 Discontinued Sodium Chloride 0.9% (Pop) [NS 0.9% mini bag] 100 ml IV X1 SODIUM CHLORIDE 3%(Hypertonic) [Hypertonic Saline 3%] Med 06/30/24 01:36 Active 500 ml Pre-Mixed [Pre-mixed Bag] 1 bag IV X1 Sodium Chloride 0.9% 1000 ml [Ns] 1,000 ml Med 06/30/24 00:45 Discontinued IV 999 mls/hr Sodium Chloride 0.9% 1000 ml [Ns] 1,000 ml Med 06/30/24 01:28 Discontinued IV 999 mls/hr mg Hyd/Al Hyd/Irlanda Susp [Maalox Susp] Med 06/30/24 02:29 Active 30 ml PO Q4HR PRN Code Status Routine Oth 06/30/24 02:29 Ordered Oxygen Delivery NOW RT 06/29/24 22:37 Active Vital Signs Vital signs: Vital Signs Temperature 98.0 F 06/29/24 22:11 Pulse Rate 46 L 06/29/24 22:11 Respiratory Rate 32 H 06/29/24 22:11 Blood Pressure 134/64 H 06/29/24 22:11 Pulse Oximetry (%) 99 04/04/25 22:11 Oxygen Delivery Method Mechanical Ventilation 06/29/24 22:11 [facility] Patient data External records reviewed:: [facility] previous records (Per chart review, patient was seen here on 06/23/24 for UTI.) and Other (specify) (Per subacute paperwork/POLST, patient is a DNR on selective treatment.) Clinical information provided by:: none (subacute staff) Social determinants that could affect healthcare access:: housing (subacute resident) Patient has the following chronic illnesses:: s/p tracheostomy 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, seizure disorder, A-fib on amiodarone, primary hypertension, IDDM type II, PEG tube How is presenting disease/condition affected by chronic disease/condition?: exacerbated by Evaluation data The following diagnostics were reviewed and interpreted by me:: lab results, radiology exam(s) and EKG tracing(s) Lab and/or radiology exams considered but not ordered:: none Interpretation Summary: WBC count is elevated at 16.7, HnH is low at 6.6/19.6, ABG shows a low pO2 of 54, elevated HCO3 of 34, and pH of 7.51, Lactic Acid is 2.2, BNP is 1037, Sodium is low at 115, Potassium is elevated at 6.5, Chloride is low at 77, Creatinine is elevated at 1.8, Glucose is 177, UA is positive for a UTI, according to my interpretation. EKG done at 2221, ajunctional rhythm, rate of 50, left axis deviation, no ectopy, Q waves in V1, V2, lead I, and avL, QTc: 475, QRSd: 158, no STEMI, according to my interpretation. EKG done at 0047, sinus bradycardia, rate of 40, left axis deviation, no ectopy, inverted T-waves in lead I and avL, no STEMI, QTc: 514, QRSd: 147, according to my interpretation. -------- [place] [facility] Report Signed Patient: DAJUAN PAZ. Record#: [id number] Birthdate: 1940 Age/Sex: 83 / F Location: [facility] Attending Dr: Ordering Physician: Donnie Eller MD Date of Service: 06/29/24 Procedure(s): XR chest 1V portable Accession Number(s): [id number] cc: Prem Dowd MD; NO PRIMARY/FAMILY,PHYSICIAN; Donnie Eller MD~ Examination: AP chest single view TECHNIQUE: AP portable semiupright chest single view Exam date and time: June 29, 2024 1047 pm Comparison June 28, 2024 INDICATIONS: Postthoracentesis June 27, 2024 coughing and shortness of breath today FINDINGS: More complete expansion left lung on the current study, no visualized pneumothorax Extensive pleural and parenchymal disease bilaterally again noted Stable cardiac contour Tracheostomy tube tip 7.6 cm above Melanie Right Pleurx catheter, gastrostomy tube overlies the stomach IMPRESSION: Left lung now fully expanded compared to the prior study Extensive pleural-parenchymal disease again noted Dictated By: Prem Dowd MD Signed By: <Electronically signed by Prem Dowd MD in [place]> 06/29/24 [id number] Medications Medications considered but not ordered:: none Medication administrations:: Medication Administration History Al Hydrox/Mg Hydrox/Simethicone (Mg Hyd/Al Hyd/Irlanda (Maalox Reg) Susp 30 Ml Udc) 30 ml PO Q4HR PRN PRN Reason: Heartburn or Upset Stomach Stop: 07/30/24 02:28 Albuterol/Ipratropium (Albuterol/Ipratropium (Duoneb) Rt Viviana 3 Ml Nebu) 3 ml INH Q2HR PRN PRN Reason: SHORTNESS OF BREATH OR WHEEZE Stop: 07/30/24 02:33 Dextrose (Dextrose 50%-Water Inj 50 Ml Syringe) 50 ml IV X1 ONE Stop: 06/30/24 02:48 Sodium Chloride 500 ml/ IV (Miscellaneous Supplies) 500 mls @ 30 mls/hr IV X1 ONE Stop: 06/30/24 18:15 Piperacillin Sod/Tazobactam (Sod 2.25 gm/ Sodium Chloride) 100 mls @ 200 mls/hr IV Q6HR AMARJIT Stop: 07/07/24 02:45 Doxycycline Hyclate 100 mg/ (Sodium Chloride) 100 mls @ 100 mls/hr IV BID AMARJIT Stop: 07/07/24 08:59 Calcium Gluconate/Sodium Chloride (Calcium Gluc/Ns 1000mg Ivpb) 1,000 mg in 50 mls @ 50 mls/hr IV X1 ONE Stop: 06/30/24 03:47 Insulin Human Regular (Insulin Hum Regular 1 Unit/0.01 Ml (Per Unit)) 10 unit IV X1 ONE Stop: 06/30/24 02:48 Lansoprazole (Lansoprazole 30 Mg Tab.Rap.Dr) 30 mg GT QDAY AMARJIT Stop: 07/30/24 08:59 Magnesium Hydroxide (Milk Of Magnesia Susp 30 Ml Udc) 30 ml PO QDAY PRN PRN Reason: CONSTIPATION Stop: 07/30/24 02:28 Pharmacy Consult (Pharmacy Renal Dose Adjustment 1 Ea) 1 each XX QDAY AMARJIT Stop: 07/30/24 08:59 Sodium Polystyrene Sulfonate (Sod Polystyrene Sulfon Susp 15 Gm/60 Ml Btl) 30 gm GT X1 ONE Stop: 06/30/24 02:48 Discontinued Medications Albuterol (Albuterol Rt 2.5 Mg/3 Ml Nebu) 2.5 mg INH X1 ONE Stop: 06/30/24 02:48 Piperacillin Sod/Tazobactam (Sod 4.5 gm/ Sodium Chloride) 100 mls @ 200 mls/hr IV X1 ONE Stop: 06/30/24 01:09 Last Infusion: 06/30/24 02:35 Dose: Infused Documented By: Admin: 06/30/24 02:04 Dose: 200 mls/hr Documented By: CVL Doxycycline Hyclate 100 mg/ (Sodium Chloride) 100 mls @ 100 mls/hr IV X1 ONE Stop: 06/30/24 01:39 Last Infusion: 06/30/24 02:29 Dose: Infused Documented By: Admin: 06/30/24 01:27 Dose: 100 mls/hr Documented By: CVL Sodium Chloride (Ns) 1,000 mls @ 999 mls/hr IV .Q1H1M ONE Stop: 06/30/24 01:45 Last Infusion: 06/30/24 02:10 Dose: Infused Documented By: Admin: 06/30/24 01:09 Dose: 999 mls/hr Documented By: CVL Magnesium Sulfate (Magnesium Sulfate Ivpb) 2 gm in 50 mls @ 25 mls/hr IV X1 ONE Stop: 06/30/24 02:53 Last Admin: 06/30/24 02:28 Dose: 25 mls/hr Documented By: CVL Sodium Chloride (Ns) 1,000 mls @ 999 mls/hr IV .Q1H1M ONE Stop: 06/30/24 02:28 Last Admin: 06/30/24 02:27 Dose: 999 mls/hr Documented By: CVL see above Consultations Consultation(s) initiated? (list below): Yes Consultation #1 (Physician, Specialty, Details): Discussed case with [Dr. Greene, attending Dr. Bansal] from Hospitalist service regarding admission. Discussed patients ED course, exam findings, labs, and radiology results. The Hospitalist [agrees] to accept the patient for admission. Time: : Diagnosis Differential Diagnosis ED Complaint MDM: sepsis, UTI, pneumonia, dehydration, electrolyte abnormality Most likely diagnosis given after review of the tests above:: see clinical impression below Admission Indicated Admission indicated?: indicated Explain why admission is indicated or not indicated:: Admission criteria met. Admission Request Was there a request for admission?: Yes Admission Attestation Admission request attestation: Discussed case with [] from Hospitalist service regarding admission. Discussed patients ED course, exam findings, labs, and radiology results. The Hospitalist [agrees,declines] to accept the patient for admission. Disposition Plan Disposition Plan: Admit Medical Decision Making MDM Narrative MDM Narrative: Scribe Attestation: 06/29/24 - Lexie Strickland am scribing for and in the presence of Dr. Eller. Differential Diagnosis Differential Diagnosis: sepsis, UTI, pneumonia, dehydration, electrolyte abnormality Lab Data 06/29/24 22:58 06/30/24 00:03 Labs: Lab Results 06/29/24 06/29/24 06/29/24 Range/Units 22:50 22:53 22:58 WBC 16.7 H D (3.6-11.0) Thou/mm3 RBC 2.40 L (4.00-5.20) Miln/mm3 Hgb 6.6 L* D (12.0-16.0) g/dL Hct 19.6 L* (36.0-46.0) % MCV 82 (80-100) fL MCH 27.5 (25.0-35.0) pg MCHC 33.7 (31.0-37.0) g/dl RDW Std Deviation 48.5 H (36.4-46.3) fL Plt Count 440 D (140-440) Thou/mm3 Neut % (Auto) 89 H (37-80) % Lymph % (Auto) 3 L (10-50) % Grimes % (Auto) 6 (0-12) % Eos % (Auto) 0 (0-10) % Baso % (Auto) 0 (0-2.5) % Neut # (Auto) 15.0 H (1.8-7.7) Thou/mm3 Lymph # (Auto) 0.5 L (1.0-4.8) Thou/mm3 Grimes # (Auto) 1.0 H (0.0-0.8) Thou/mm3 Eos # (Auto) 0.1 (0.0-0.5) Thou/mm3 Baso # (Auto) 0.0 (0.0-0.2) Thou/mm3 Immature Gran # (Auto) 0.11 H (0.00-0.00) Thou/mm3 Absolute Nucleated RBC 0.00 (0.00-0.00) Thou/mm3 Immature Gran % 1 H (0-0) % Nucleated RBC % 0 (0) /100 WBC PT 10.9 (9.0-12.2) Seconds INR 1.0 (0.9-1.3) APTT 36.8 H (22.0-36.0) Seconds Puncture Site Right Radial ABG pH 7.51 H (7.35-7.45) ABG pCO2 42 (32.0-48.0) mmHg ABG pO2 54 L* (83-108) mmHg ABG HCO3 34 H (20-26) mEq/L ABG O2 Saturation 91 (91-98) % ABG Base Excess 10 H (-3-3) FiO2 21 % Sodium (136-145) mMol/L Potassium (3.4-5.1) mMol/L Chloride (98-107) mMol/L Carbon Dioxide (20.0-31.0) mMol/L Anion Gap (7-16) BUN (9-23) mg/dL Creatinine (0.6-1.3) mg/dL Estim Creat Clear Calc eGFR (60 - ) See Note BUN/Creatinine Ratio (12-20) Ratio Glucose (74-106) mg/dL Calculated Osmolality (275-295) Lactic Acid 2.2 H (0.4-2.0) mMol/L Calcium (8.3-10.6) mg/dL Corrected Calcium (8.5-10.1) mg/dL Phosphorus (2.4-5.1) mg/dL Magnesium (1.6-2.6) mg/dL Total Bilirubin (0.3-1.2) mg/dL AST (0-34) U/L ALT (10-49) U/L Alkaline Phosphatase (46-116) U/L Lactate Dehydrogenase (120-246) U/L Troponin I (0.0-0.045) ng/mL B-Natriuretic Peptide 1037 H* (0-100) pg/mL Total Protein (5.7-8.2) gm/dL Albumin (3.4-4.8) gm/dL Globulin (2.3-3.5) gm/dL Albumin/Globulin Ratio (1.2-2.2) Lipase (12-53) U/L Procalcitonin (0.0-0.49) ng/ml Ur Collection Type Clean Catch Urine Color Yellow (Lt Yel-Yel) Urine Clarity Turbid A (Clear/Hazy) Urine pH 6.0 (5.0-7.0) Ur Specific [place] 1.022 (1.001-1.035) Urine Protein 3+ A (Neg - Trace) Urine Glucose (UA) Negative (Negative) Urine Ketones Trace (Negative) Urine Blood Trace (Negative) Urine Nitrite Negative (Negative) Urine Bilirubin Negative (Negative) Urine Urobilinogen (Auto) 2.0 (0.0-1.0) mg/dL Ur Leukocyte Esterase Positive (Negative) Urine RBC 16 H (0-3) /hpf Urine WBC 121 H (0-5) /hpf Ur Squamous Epith Cells 7 H (0-5) /hpf Urine Bacteria Rare (None) Blood Type Antibody Screen Crossmatch Blood Bank Wristband ID 06/30/24 06/30/24 Range/Units 00:03 01:01 WBC (3.6-11.0) Thou/mm3 RBC (4.00-5.20) Miln/mm3 Hgb (12.0-16.0) g/dL Hct (36.0-46.0) % MCV (80-100) fL MCH (25.0-35.0) pg MCHC (31.0-37.0) g/dl RDW Std Deviation (36.4-46.3) fL Plt Count (140-440) Thou/mm3 Neut % (Auto) (37-80) % Lymph % (Auto) (10-50) % Grimes % (Auto) (0-12) % Eos % (Auto) (0-10) % Baso % (Auto) (0-2.5) % Neut # (Auto) (1.8-7.7) Thou/mm3 Lymph # (Auto) (1.0-4.8) Thou/mm3 Grimes # (Auto) (0.0-0.8) Thou/mm3 Eos # (Auto) (0.0-0.5) Thou/mm3 Baso # (Auto) (0.0-0.2) Thou/mm3 Immature Gran # (Auto) (0.00-0.00) Thou/mm3 Absolute Nucleated RBC (0.00-0.00) Thou/mm3 Immature Gran % (0-0) % Nucleated RBC % (0) /100 WBC PT (9.0-12.2) Seconds INR (0.9-1.3) APTT (22.0-36.0) Seconds Puncture Site ABG pH (7.35-7.45) ABG pCO2 (32.0-48.0) mmHg ABG pO2 (83-108) mmHg ABG HCO3 (20-26) mEq/L ABG O2 Saturation (91-98) % ABG Base Excess (-3-3) FiO2 % Sodium 115 L* (136-145) mMol/L Potassium 6.5 H* (3.4-5.1) mMol/L Chloride 77 L* (98-107) mMol/L Carbon Dioxide 30.9 (20.0-31.0) mMol/L Anion Gap 7 (7-16) BUN 76 H (9-23) mg/dL Creatinine 1.8 H D (0.6-1.3) mg/dL Estim Creat Clear Calc Not Performed. eGFR 28 L (60 - ) See Note BUN/Creatinine Ratio 42 H (12-20) Ratio Glucose 177 H (74-106) mg/dL Calculated Osmolality 259 L (275-295) Lactic Acid (0.4-2.0) mMol/L Calcium 7.7 L (8.3-10.6) mg/dL Corrected Calcium 8.7 (8.5-10.1) mg/dL Phosphorus 4.6 (2.4-5.1) mg/dL Magnesium 3.0 H (1.6-2.6) mg/dL Total Bilirubin 0.2 L (0.3-1.2) mg/dL AST 32 (0-34) U/L ALT 34 (10-49) U/L Alkaline Phosphatase 115 (46-116) U/L Lactate Dehydrogenase 196 (120-246) U/L Troponin I < 0.020 (0.0-0.045) ng/mL B-Natriuretic Peptide (0-100) pg/mL Total Protein 5.9 (5.7-8.2) gm/dL Albumin 2.8 L (3.4-4.8) gm/dL Globulin 3.1 (2.3-3.5) gm/dL Albumin/Globulin Ratio 0.9 L (1.2-2.2) Lipase 75 H (12-53) U/L Procalcitonin 0.96 H (0.0-0.49) ng/ml Ur Collection Type Urine Color (Lt Yel-Yel) Urine Clarity (Clear/Hazy) Urine pH (5.0-7.0) Ur Specific [place] (1.001-1.035) Urine Protein (Neg - Trace) Urine Glucose (UA) (Negative) Urine Ketones (Negative) Urine Blood (Negative) Urine Nitrite (Negative) Urine Bilirubin (Negative) Urine Urobilinogen (Auto) (0.0-1.0) mg/dL Ur Leukocyte Esterase (Negative) Urine RBC (0-3) /hpf Urine WBC (0-5) /hpf Ur Squamous Epith Cells (0-5) /hpf Urine Bacteria (None) Blood Type A Positive Antibody Screen NEGATIVE Crossmatch See Detail Blood Bank Wristband ID Yes Critical Care Time Critical Care Time Critical Care Time: Yes Total Critical Care Time (min.): 50 Attestation: The high probability of sudden, clinically significant deterioration in the patient?s condition required the highest level of my preparedness to intervene urgently. The services I provided to this patient were to treat and/or prevent clinically significant deterioration. Services included the following: chart data review, reviewing nursing notes and/or old charts, documentation time, farm service consultant collaboration regarding findings and treatment options, medication orders and management, direct patient care, vital sign assessments and ordering, interpreting and reviewing diagnostic studies and lab tests. Aggregate critical care time includes only time during which I was engaged in work directly related to the patient?s care, as described above, whether at bedside or elsewhere in the Emergency Department. It did not include time spent performing other reported procedures or the services of residents, students, nurses or physician assistants. Discharge Plan Plan Patient Disposition: Admit Acute Care w/in Hospital Disposition Comment: Accepted by Dr. Bansal Problem List Clinical Impression: Hyperkalemia, Severe sepsis, CELESTINO (acute kidney injury), UTI (urinary tract infection), Anemia, Hypoxic, Hyponatremia, Dehydration
--- NOTE | 2024-06-29 22:34 | XR_ITS ---
Examination: AP chest single view TECHNIQUE: AP portable semiupright chest single view Exam date and time: June 29, 2024 1047 pm Comparison June 28, 2024 INDICATIONS: Postthoracentesis June 27, 2024 coughing and shortness of breath today FINDINGS: More complete expansion left lung on the current study, no visualized pneumothorax Extensive pleural and parenchymal disease bilaterally again noted Stable cardiac contour Tracheostomy tube tip 7.6 cm above Melanie Right Pleurx catheter, gastrostomy tube overlies the stomach IMPRESSION: Left lung now fully expanded compared to the prior study Extensive pleural-parenchymal disease again noted
[2024-06-29 22:41] VITALS: PULSE 40
[2024-06-29 22:56] LABS: Base Excess 10 (-3-3); HCO3 34 mEq/L (20-26); Inspired Oxygen, FIO2 21 %; O2 Saturation 91 % (91-98); PCO2 42 mmHg (32.0-48.0); pH, Arterial 7.51 (7.35-7.45)
[2024-06-29 22:57] LABS: Allen Test Performed/OK; Puncture Site Right Radial
[2024-06-29 22:58] LABS: PO2 54 mmHg (83-108)
[2024-06-29 23:02] LABS: Collection Type, Urine Clean Catch
[2024-06-29 23:19] LABS: Lactate (Lactic Acid) 2.2 mMol/L (0.4-2.0)
[2024-06-29 23:24] LABS: Basophils % (Auto) 0 % (0-2.5); Eosinophils # (Auto) 0.1 Thou/mm3 (0.0-0.5); Eosinophils % (Auto) 0 % (0-10); Immature Granulocytes % (Auto) 1 % (0-0); Immature Granulocytes Auto 0.11 Thou/mm3 (0.00-0.00); Lymphocytes # (Auto) 0.5 Thou/mm3 (1.0-4.8); Lymphocytes % (Auto) 3 % (10-50); Mean Corpuscular HGB Conc 33.7 g/dl (31.0-37.0); Mean Corpuscular Hemoglobin 27.5 pg (25.0-35.0); Mean Corpuscular Volume 82 fL (80-100); Monocytes % (Auto) 6 % (0-12); Neutrophils % (Auto) 89 % (37-80); Nucleated Red Blood Cell % 0 /100 WBC (0); Platelet Count 440 Thou/mm3 (140-440); RDW Standard Deviation 48.5 fL (36.4-46.3); White Blood Count 16.7 Thou/mm3 (3.6-11.0)
[2024-06-29 23:29] VITALS: BP 132/89; PULSE 41; RESP 19; O2SAT 100
[2024-06-29 23:32] LABS: Bacteria,Urine Rare; Bilirubin,Urine Negative (Negative); Blood,Urine Trace (Negative); Clarity,Urine Turbid (Clear/Hazy); Color,Urine Yellow (Lt Yel-Yel); Glucose, Urine Negative (Negative); Ketones,Urine Trace (Negative); Leukocyte Esterase,Urine Positive (Negative); Nitrite,Urine Negative (Negative); Protein,Urine 3+ (Neg - Trace); RBC,Urine 16 /hpf (0-3); Specific Gravity,Urine 1.022 (1.001-1.035); Squamous Epithelial Cell,Urine 7 /hpf (0-5); WBC,Urine 121 /hpf (0-5)
[2024-06-29 23:36] LABS: Hematocrit 19.6 % (36.0-46.0); Hemoglobin 6.6 g/dL (12.0-16.0)
[2024-06-29 23:42] LABS: Partial Thromboplastin Time 36.8 Seconds (22.0-36.0); Prothrombin Time 10.9 Seconds (9.0-12.2)
[2024-06-29 23:52] LABS: B-Type Natriuretic Peptide 1037 pg/mL (0-100)
[2024-06-30] VITALS (99 sets, daily range): BP systolic 76–178; BP diastolic 30–69; PULSE 40–77; RESP 8–45; TEMP 36.2–36.9; O2SAT 99–100; BMI 19.1
[2024-06-30 00:41] LABS: Alanine Aminotransferase 34 U/L (10-49); Albumin, Serum 2.8 gm/dL (3.4-4.8); Albumin/Globulin Ratio 0.9 (1.2-2.2); Alkaline Phosphatase 115 U/L (46-116); Anion Gap 7 (7-16); Aspartate Amino Transferase 32 U/L (0-34); BUN/Creatinine Ratio 42 Ratio (12-20); Bilirubin,Total 0.2 mg/dL (0.3-1.2); Blood Urea Nitrogen 76 mg/dL (9-23); Calcium 7.7 mg/dL (8.3-10.6); Calcium (Corrected) 8.7 mg/dL (8.5-10.1); Carbon Dioxide 30.9 mMol/L (20.0-31.0); Chloride 77 mMol/L (98-107); Creatinine (Component) 1.8 mg/dL (0.6-1.3); Globulin 3.1 gm/dL (2.3-3.5); Glucose 177 mg/dL (74-106); LDH (Lactate Dehydrogenase) 196 U/L (120-246); Lipase 75 U/L (12-53); Osmolality,Calculated 259 (275-295); Phosphorous 4.6 mg/dL (2.4-5.1); Procalcitonin 0.96 ng/ml (0.0-0.49); Total Protein 5.9 gm/dL (5.7-8.2); Troponin I < 0.020 ng/mL (0.0-0.045); eGFR 28 See Note
[2024-06-30 00:44] LABS: Potassium 6.5 mMol/L (3.4-5.1); Sodium 115 mMol/L (136-145)
[2024-06-30] MEDS: SODIUM CHLORIDE 0.9% 1000 ML 1,000 ML 999 ML IV ×2 (01:09→02:27)
[2024-06-30] MEDS: DOXYCYCLINE INJ 100 MG in SODIUM CHLORIDE 0.9% (POP) 100 ML IV ×3 (01:27→20:38)
[2024-06-30] MEDS: PIPER/TAZO INJ 4.5 GM in SODIUM CHLORIDE 0.9% (POP) 100 ML IV (02:04)
[2024-06-30 02:18] LABS: Reflex Lactate? Y
[2024-06-30] MEDS: Magnesium Sulfate 2 GM Ivpb 2 GM/50 ML BAG IV (02:28)
--- NOTE | 2024-06-30 02:29 | PD.HHHP ---
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 Patient is nonverbal at baseline, HPI completed through chart review. As per ED note, patient was receiving antibiotics for UTI. In the ED, her initial vitals were blood pressure of 134/64, pulse 46, respiratory rate 32, temperature 98.0, saturating well on mechanical ventilator with 43% FiO2 which is her baseline at the subacute. Lab results are significant for WBC of 16.7, hemoglobin/hematocrit of 6.6/19.6, sodium 115, potassium 6.5, chloride 77, BUN/creatinine 76/1.8, glucose 177, osmolality 259, lactic acid 2.2, BNP 1037, procalcitonin 0.96. ABG was obtained which shows pH of 7.51, PO2 of 54, bicarb from CHEM panel was 30.9. Urinalysis shows 121 WBCs, positive leukocyte esterase and rare bacteria. As per patient's RN, the Hector catheter appears recently exchanged. Patient received 2 L normal saline bolus, 2 g magnesium sulfate IV, Zosyn, doxycycline. She was also started on hypertonic saline. 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 Seizure disorder Atrial fibrillation?paroxysmal Primary hypertension Insulin-dependent diabetes mellitus type 2 Past surgical history: Social history: Family History: Unable to be obtained/unknown Review of Systems Review of Systems ROS Unobtainable: unobtainable due to mental status Meds Home Medications and Allergies Home Medications ?Medication ?Instructions ?Recorded ?Confirmed ?Type acetaminophen 325 mg tablet 325 mg feeding tube Q6H PRN fever 04/25/24 06/09/24 History or pain amiodarone 200 mg tablet 200 mg feeding tube DAILY 04/25/24 06/09/24 History amlodipine 10 mg tablet 10 mg feeding tube QDAY 04/25/24 06/09/24 History atorvastatin 80 mg tablet 80 mg feeding tube HS 04/25/24 06/09/24 History bisacodyl 5 mg tablet,delayed 10 mg feeding tube Q6H PRN 04/25/24 06/09/24 History release (Gentle Laxative constipation (bisacodyl)) insulin regular human 100 unit/mL 1 sliding scale dose subcut Q6H 04/25/24 06/09/24 History (3 mL) subcutaneous pen (Novolin R FlexPen) ipratropium 0.5 mg-albuterol 3 mg 3 ml inhalation Q6H PRN shortness 04/25/24 06/09/24 History (2.5 mg base)/3 mL nebulization of breath soln lactulose 10 gram/15 mL oral 10 g feeding tube Q6H 04/25/24 06/09/24 History solution (Enulose) metoprolol tartrate 25 mg tablet 25 mg feeding tube Q12H 04/25/24 06/09/24 History calcium 600 mg (as 1 cap PO DAILY 05/20/24 06/09/24 History carbonate)-vitamin D3 5 mcg (200 unit) capsule (Calcium 600 + D(3)) sennosides 8.6 mg tablet 8.6 mg feeding tube BID 05/20/24 06/09/24 History (Black-Draught Lax-Senna) ascorbic acid (vitamin C) 500 mg 500 mg feeding tube BID 06/09/24 06/09/24 History tablet (Vitamin C) carbamide peroxide 6.5 % ear drops 5 drp otic (ear) .Q61 06/09/24 06/09/24 History furosemide 20 mg tablet 20 mg feeding tube QDAY 06/09/24 06/09/24 History magnesium hydroxide 400 mg/5 mL 30 ml PO QDAY PRN constipation 06/09/24 06/09/24 History oral suspension (Milk of Magnesia) multivitamin (Daily Multi-Vitamin 1 tab feeding tube QAM 06/09/24 06/09/24 History tablet) polyethylene glycol 3350 17 17 g feeding tube QDAY 06/09/24 06/09/24 History gram/dose oral powder (Miralax) sodium chloride 1,000 mg soluble 1,000 mg feeding tube QDAY 06/09/24 06/09/24 History tablet zinc sulfate 50 mg zinc (220 mg) 50 mg feeding tube QDAY 06/09/24 06/09/24 History capsule Allergies Allergy/AdvReac Type Severity Reaction Status Date / Time No Known Allergies Allergy Verified 05/25/24 08:41 Exam Vital Signs Temp Pulse Resp BP Pulse Ox O2 Del Method FiO2 98.0 F 40 L 14 126/38 L 100 Mechanical Ventilation 43 06/29/24 22:11 06/30/24 01:35 06/30/24 01:35 06/30/24 01:35 06/30/24 01:35 06/30/24 01:35 06/30/24 01:35 Narrative General: Appears comfortable on mechanical ventilation HEENT: Moist mucous membranes Neck: Supple, No masses, No JVD CVS: S1S2 Regular rate and rhythm, No murmurs, rubs or gallops Lungs: Clear to auscultation with no accessory use, no wheeze, coarse rhonchi appreciated throughout the lung field Abd: Soft, nondistended, +BS, no organomegaly Ext: No edema, warm and well perfused Skin: Large sacral decubitus ulcer, with some discharge, muscles visible Neuro/Psych: Nonverbal at baseline, contractures noted Results - Hospitalist Labs Diagrams: 06/29/24 22:58 06/30/24 00:03 Labs: Short CBC 06/29/24 Range/Units 22:58 WBC 16.7 H D (3.6-11.0) Thou/mm3 Hgb 6.6 L* D (12.0-16.0) g/dL Hct 19.6 L* (36.0-46.0) % Plt Count 440 D (140-440) Thou/mm3 BMP 06/30/24 00:03 Sodium 115 L* Potassium 6.5 H* Chloride 77 L* Carbon Dioxide 30.9 BUN 76 H Creatinine 1.8 H D Glucose 177 H Calcium 7.7 L Cardiac Enzymes 06/30/24 Range/Units 00:03 Troponin I < 0.020 (0.0-0.045) ng/mL Liver Function 06/30/24 Range/Units 00:03 Total Bilirubin 0.2 L (0.3-1.2) mg/dL AST 32 (0-34) U/L ALT 34 (10-49) U/L Alkaline Phosphatase 115 (46-116) U/L Albumin 2.8 L (3.4-4.8) gm/dL Urine 06/29/24 Range/Units 22:50 Urine Color Yellow (Lt Yel-Yel) Urine Clarity Turbid A (Clear/Hazy) Urine pH 6.0 (5.0-7.0) Ur Specific [place] 1.022 (1.001-1.035) Urine Protein 3+ A (Neg - Trace) Urine Glucose (UA) Negative (Negative) ABG Interpretation ABG results: 06/29/24 22:53 ABG pH 7.51 H ABG pCO2 42 ABG pO2 54 L* ABG HCO3 34 H ABG O2 Saturation 91 ABG Base Excess 10 H Assessment & Plan -Hospitalist Additional Plan Additional Plan: Patient is a 83 years old female, 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 She was found to have severely low sodium level and high potassium level. Was started on hypertonic saline in the ED. Admitted to ICU for further management. 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 multiple strokes #History of seizure disorder Patient nonverbal at baseline We will resume her statin No antiplatelets or antiepileptics noted on home meds list CVS #History of A-fib Patient is bradycardic currently, holding amiodarone Holding anticoagulation in setting of low hemoglobin #Bradycardia EKG shows sinus bradycardia Patient received 2 mg of magnesium in the ED Holding amiodarone, awaiting medication prolonging QT Heart rate started to improve to low 60s #History of hypertension Patient's blood pressure is within normal limits currently Pulm #Bilateral pneumonia Chest x-ray was obtained, shows extensive bilateral parenchymal disease Continues to be on mechanical ventilator ABG shows pH of 7.51, PO2 54, we will obtain follow-up ABG Started on broad-spectrum antibiotics, doxycycline and Zosyn Nasopharyngeal suction as needed Sputum cultures ordered Renal #Hyponatremia Possibly secondary to kidney injury, patient also takes Lasix Patient presented with a sodium level of 115 Sodium level on 06/18/2024 was 136 Patient is nonverbal, unable to communicate any symptoms Patient received 2 L IV normal saline bolus in the ED Started on hypertonic saline We will obtain every 4 hours renal panel Goal sodium level improvement, 6 mEq in 24-hour Nephrology consulted #Hyperkalemia Patient has potassium level of 6.5 Started on albuterol inhalation, IV regular insulin, D50, calcium gluconate Also started on Kayexalate 30 g We will follow-up with renal panel #Acute kidney injury Likely prerenal in setting of low hemoglobin, diuretic use Patient has BUN/creatinine of 76/1.8, baseline appears to be around 0.8-1.0 Patient received 2 L IV fluid in the ED Currently receiving tube feeds Will continue to monitor closely #Lactic acidosis Initial lactate was 2.2, improved after IV hydration Heme #Acute normocytic anemia Unclear if the anemia is from chronic disease, loss from her decubitus ulcer or GI loss We will obtain occult blood 2 units of PRBC are ordered by ED We will follow-up with posttransfusion H&H Consider GI consult if occult blood trace positive #Leukocytosis Could be from UTI/pneumonia/infected decubitus ulcers/osteomyelitis Infectious disease #Sepsis #UTI #Pneumonia #Decubitus ulcer #Concern for osteomyelitis Meds 2/4 SIRS criteria with leukocytosis, tachypnea; has elevated lactate and procalcitonin UA shows 121 WBCs, 16 RBCs, positive leukocyte esterase and rare bacteria Chest x-ray concerning for bilateral pneumonia Has large decubitus ulcer with some discharge, exposed muscles Patient on broad-spectrum antibiotics with IV Zosyn and doxycycline Blood, urine, sputum cultures obtained Patient received 2 L IV fluid bolus in the ED We will obtain CT abdomen/pelvis Wound care ordered Endo Started on insulin sliding scale, hypoglycemia protocol in place GI #Constipation Started on bowel regimen #PEG tube feeding Registered dietitian consulted Lansoprazole for GI prophylaxis Diet: PEG tube feeding CODE STATUS: DNR (discussed on phone with patient's son, stated that patient is DNR but he wished her to be in ICU for medical management, also states that he agrees with external pacemaker if needed but does not want to proceed with any invasive procedure) DVT prophylaxis: SCDs (chemical prophylaxis contraindicated due to low hemoglobin) Disposition: Admitted to ICU for management of severe hyponatremia requiring hypertonic saline Total time spent for critical care management of the patient: 60-minute Madeline Bansal MD Quality Measures Quality Measures sepsis Current suspected stage: severe sepsis Possible source: pulmonary and genitourinary Blood cultures ordered: yes Antibiotic ordered: Yes Advance care planning discussed with:: child
[2024-06-30 02:54] LABS: Lactic Acid, 3 HR 1.4 mMol/L (0.4-2.0)
--- NOTE | 2024-06-30 02:56 | XR_ITS ---
Examination: CT abdomen and pelvis without contrast. Coronal 3-D reconstructions. Sagittal 2-D reconstructions. Date and time of exam:June 30, 2024 0442 hours INDICATIONS: Sepsis today CTDI: vol (mGy): 10.5 DLP: (mGycm): 589 Technique: Axial images of the abdomen have been obtained, 3 mm slice thickness Intravenous contrast material has not been administered. Low dose protocols were performed. One or more of the following dose reduction techniques were used; automated exposure control, adjustment of the mA and/or KV according to patient size, use of iterative reconstruction technique. Findings: Bibasilar pneumonia with moderate bilateral pleural effusions Tiny anterior and lateral pneumothorax Right Pleurx catheter Liver is irregular in contour Absent gallbladder No pancreatic mass No hydronephrosis Anasarca Abdominal aortic calcification Mild free fluid in the abdomen Appendix is mildly thickened No bowel obstruction Urinary Hector catheter Gastrostomy tube satisfactory visualization Degenerative changes lumbar spine IMPRESSION: Bibasilar pneumonia Bilateral pleural effusions Primary hepatocellular disease Anasarca Mild ascites Mild thickening of the appendix, clinical correlation advised
[2024-06-30] MEDS: SODIUM CHLORIDE 3%(Hypertonic) 500 ML in PRE-MIXED 1 BAG 30 ML IV (03:15)
[2024-06-30] MEDS: ALBUTEROL RT 2.5 MG/0.5 ML NEBU 10 MG INH (03:56)
[2024-06-30] MEDS: DEXTROSE 50%-WATER INJ 50 ML SYRINGE IV (04:04)
[2024-06-30] MEDS: INSULIN HUM REGULAR 1 UNIT/0.01 ML (PER UNIT) 10 UNIT IV (04:08)
[2024-06-30] MEDS: SOD POLYSTYRENE SULFON SUSP 15 GM/60 ML BTL 30 GM GT (04:10)
--- NOTE | 2024-06-30 04:44 | PC.NURSE ---
PT WENT TO CT AT [facility] FOR CT OF ABDOMEN AND PELVIS WITH [facility]BULANCE [facility]W AND DILLON MONROY.
--- NOTE | 2024-06-30 05:54 | PRELIM_ITS ---
CT scan of the abdomen and pelvis without intravenous contrast (axial sections with sagittal and coronal reformats) June 30, 2024 0442 hours Clinical History: Sepsis. Comparison: No prior study is available for comparison. Findings: Bilateral pleural effusions. Bilateral basal lung consolidation. Partially imaged left pneumothorax. Percutaneous right chest tube in place. The pancreas, spleen, kidneys and adrenals are unremarkable on this noncontrast study. Mild irregular liver margins. Status post cholecystectomy. No evidence of bowel obstruction. Prominent appendix, no perforation, no collections. There is no mesenteric or retroperitoneal adenopathy. A Hector catheter in place. Air within the urinary bladder. There is no free fluid or free air. The uterus and ovaries are within normal limits. Degenerative changes of the imaged portions of the spine. Chronic multilevel disc disease. No acute fractures. Anasarca. Vascular calcifications. Percutaneous gastric tube in place. Impression: 1. Bilateral pleural effusions. 2. Bilateral basal lung consolidation consistent with pneumonia. 3. Anasarca. 4. Partially imaged left pneumothorax. Correlation with imaging of the chest is recommended. 5. Probable cirrhosis. 6. Prominent appendix, acute appendicitis cannot be excluded. 7. Air within the urinary bladder, consider cystitis in the differential diagnosis. Discussion Details: Results verbally communicated to Gio Fox RN at 08.50 AM ET on 06/30/2024. A call back number is provided to facilitate direct Physician to Physician communication. Report Electronically Signed By: Louis Hansen 06/30/2024 5:53:56 AM [EST]
[2024-06-30] MEDS: CALCIUM GLUC/NS 1000MG IVPB 1,000 MG/50 ML BAG 50 MG IV (06:20)
--- NOTE | 2024-06-30 07:09 | XR_ITS ---
Examination: AP chest single view TECHNIQUE: AP portable semiupright chest single view Exam date and time: June 30, 2024, 0752 hours Comparison June 29, 2024 INDICATIONS: Tracheostomy tube reposition FINDINGS: Tracheostomy tube tip 8.2 cm above Melanie Minimal prominence cardiac contour. Extensive bilateral pleural-parenchymal disease Right Pleurx catheter Lungs are well-expanded IMPRESSION: Tracheostomy tube tip 8.2 cm above Melanie Again noted is extensive bilateral pleural and parenchymal disease
--- NOTE | 2024-06-30 07:19 | EKG_ITS ---
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
[2024-06-30 07:44] LABS: Base Excess, Venous 6 (-3-3); O2 Saturation, Venous 94 % (96-97); PCO2, Venous 34 mmHg (36-56); PO2, Venous 57 mmHg (15-58); pH, Venous 7.54 (7.33-7.66)
[2024-06-30 07:50] LABS: Basophils % (Auto) 0 % (0-2.5); Eosinophils # (Auto) 0.1 Thou/mm3 (0.0-0.5); Eosinophils % (Auto) 1 % (0-10); Hematocrit 24.7 % (36.0-46.0); Immature Granulocytes % (Auto) 1 % (0-0); Immature Granulocytes Auto 0.08 Thou/mm3 (0.00-0.00); Lymphocytes # (Auto) 0.4 Thou/mm3 (1.0-4.8); Lymphocytes % (Auto) 3 % (10-50); Mean Corpuscular HGB Conc 33.2 g/dl (31.0-37.0); Mean Corpuscular Hemoglobin 28.1 pg (25.0-35.0); Mean Corpuscular Volume 85 fL (80-100); Monocytes # (Auto) 1.1 Thou/mm3 (0.0-0.8); Monocytes % (Auto) 8 % (0-12); Neutrophils # (Auto) 12.7 Thou/mm3 (1.8-7.7); Neutrophils % (Auto) 88 % (37-80); Nucleated Red Blood Cell % 0 /100 WBC (0); Platelet Count 397 Thou/mm3 (140-440); RDW Standard Deviation 47.7 fL (36.4-46.3); Red Blood Count 2.92 Miln/mm3 (4.00-5.20); White Blood Count 14.3 Thou/mm3 (3.6-11.0)
[2024-06-30 07:53] LABS: Hemoglobin 8.2 g/dL (12.0-16.0)
[2024-06-30 07:59] LABS: Glucose Estimated Average 134 mg/dL (80-131); Hemoglobin A1C 6.3 % Hgb (4.8-6.0)
[2024-06-30 08:12] LABS: Prothrombin Time 11.1 Seconds (9.0-12.2)
[2024-06-30 08:13] LABS: Alanine Aminotransferase 33 U/L (10-49); Albumin, Serum 2.7 gm/dL (3.4-4.8); Albumin/Globulin Ratio 0.8 (1.2-2.2); Alkaline Phosphatase 110 U/L (46-116); Anion Gap 10 (7-16); Aspartate Amino Transferase 32 U/L (0-34); BUN/Creatinine Ratio 40 Ratio (12-20); Bilirubin,Total 0.3 mg/dL (0.3-1.2); Blood Urea Nitrogen 68 mg/dL (9-23); Carbon Dioxide 27.2 mMol/L (20.0-31.0); Cardiac Risk Estimate 2.2 RATIO (3.7-5.6); Chloride 86 mMol/L (98-107); Cholesterol 63 mg/dL (132-200); Creatinine (Component) 1.7 mg/dL (0.6-1.3); Globulin 3.2 gm/dL (2.3-3.5); Glucose 175 mg/dL (74-106); HDL Cholesterol 29 mg/dL (40-60); LDL Cholesterol,Calculated 31 mg/dL (0-130); Osmolality,Calculated 271 (275-295); Phosphorous 4.3 mg/dL (2.4-5.1); Potassium 5.2 mMol/L (3.4-5.1); Sodium 123 mMol/L (136-145); Thyroid Stimulating Hormone 0.25 uIU/mL (0.55-4.78); Total Protein 5.9 gm/dL (5.7-8.2); Triglycerides < 15 mg/dL (30-150); eGFR 30 See Note
[2024-06-30 08:16] LABS: Sed Rate (ESR) 70 mm/hr (0-30)
[2024-06-30] MEDS: PIPER/TAZO 3.375 GM PREMIX 3.375 GM/50 ML BAG IV ×3 (09:19→21:07)
[2024-06-30] MEDS: LANSOPRAZOLE 30 MG TAB.RAP.DR GT (09:19)
--- NOTE | 2024-06-30 09:58 | PC.DIETICIAN ---
Nutrition prescription: 1) Glucerna 1.2 at 30 ml/hr via PEG tube by pump. Advance 10 ml every 12 hrs to goal rate of 55 ml/hr x 22 hrs. If no IV fluids, water flushes of 25 ml/hr (or per MD). 2) Recommend Js 1 pkt BID mixed with 6-8oz water via g-tube (unflavored) 3) Recommend add Vitamin C 500mg BID daily, zinc 220mg [id number], Multivitamin-Mineral daily Thank you!
--- NOTE | 2024-06-30 10:12 | ESPR_ITS ---
Documentation for date of: 06/30/24 Subjective Subjective Interval history: This is an 83-year-old female with chronic tracheotomy and PEG tube following multiple strokes, seizure disorder, A-fib, HTN, T2DM, 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 Patient nonverbal. HPI collected from chart review. Evidently she was on ANTIBIOTIC for UTI. She presented with BP 134/64, HR 46, RR 32, afebrile, on mechanical ventilation. Labs showed sodium 115, potassium 6.5, serum osmole 259, chloride 77, BUN/CR 76/1.8, GLUCOSE 177, lactic acid 2.2, BNP 1037, H/H 6.9/19.6. ABG showed pH 7.51, PO254, bicarb 30.9. UA showed WBC 129, positive LE and rare bacteria. EKG showed sinus bradycardia without T wave abnormalities. Unable to assess mentation or baseline secondary to AMS which is baseline for her. In the ED, her initial vitals were blood pressure of 134/64, pulse 46, respiratory rate 32, temperature 98.0, saturating well on mechanical ventilator with 43% FiO2 which is her baseline at the subacute. Lab results are significant for WBC of 16.7, hemoglobin/hematocrit of 6.6/19.6, sodium 115, potassium 6.5, chloride 77, BUN/creatinine 76/1.8, glucose 177, osmolality 259, lactic acid 2.2, BNP 1037, procalcitonin 0.96. ABG was obtained which shows pH of 7.51, PO2 of 54, bicarb from CHEM panel was 30.9. Urinalysis shows 121 WBCs, positive leukocyte esterase and rare bacteria. As per patient's RN, the Hector catheter appears recently exchanged. Initially she was given 2 L NS boluses and started on 3% hypertonic. Sodium corrected from 123 to 127. Currently 3% hypertonic was discontinued. Potassium 5.2. Also given KAYEXALATE and, ALBUTEROL and CALCIUM GLUCONATE, potassium improved to 5.2. Patient currently in ICU. Nephrology was consulted for management of CELESTINO. Recommendations as listed below. Exam Vital Signs Temp Pulse Resp BP Pulse Ox O2 Del Method FiO2 97.9 F 61 15 105/59 L 100 Mechanical Ventilation 35 06/30/24 07:01 06/30/24 07:45 06/30/24 07:45 06/30/24 07:45 06/30/24 07:45 06/30/24 07:01 06/30/24 07:01 Narrative Exam GENERAL * Appears comfortable, at baseline, on mechanical ventilation. HEENT * NCAT.?BLAISE. Oral mucosa is moist. Patent Nares NECK * Supple, nontender, no thyromegaly, no meningismus, no JVD, no step offs CHEST * RRR, no m/g/r * Mild crackles bilaterally, no wheezing. Symmetrical chest rise. No intercostal subcostal retraction * Atraumatic, nontender, no crepitus, symmetrical expansion. ABDOMEN * Soft, flat, nontender. No guarding/rebound tenderness/masses. * Bowel sounds presents EXTREMITIES * 2+ pitting edema bilateral extremity SKIN * Warm and dry, no jaundice/rashes. NEUROPSYCH * Alert, nonverbal. Contractures noted * No signs of hallucinations. Objective Labs 07/01/24 04:28 07/01/24 08:25 Labs: Laboratory Results - last 24 hr 06/29/24 06/29/24 06/29/24 22:50 22:53 22:58 WBC 16.7 H D RBC 2.40 L Hgb 6.6 L* D Hct 19.6 L* MCV 82 MCH 27.5 MCHC 33.7 RDW Std Deviation 48.5 H Plt Count 440 D Neut % (Auto) 89 H Lymph % (Auto) 3 L [place] % (Auto) 6 Eos % (Auto) 0 Baso % (Auto) 0 Neut # (Auto) 15.0 H Lymph # (Auto) 0.5 L [place] # (Auto) 1.0 H Eos # (Auto) 0.1 Baso # (Auto) 0.0 Immature Gran # (Auto) 0.11 H Absolute Nucleated RBC 0.00 Immature Gran % 1 H Nucleated RBC % 0 ESR PT 10.9 INR 1.0 APTT 36.8 H Puncture Site Right Radial ABG pH 7.51 H ABG pCO2 42 ABG pO2 54 L* ABG HCO3 34 H ABG O2 Saturation 91 ABG Base Excess 10 H VBG pH VBG pCO2 VBG pO2 VBG O2 Sat ([place]) VBG Base Excess FiO2 21 Sodium Potassium Chloride Carbon Dioxide Anion Gap BUN Creatinine Estim Creat Clear Calc eGFR BUN/Creatinine Ratio Glucose Estimated Ave Glu mg/dL Hemoglobin A1c Calculated Osmolality Lactic Acid 2.2 H Calcium Corrected Calcium Phosphorus Magnesium Total Bilirubin AST ALT Alkaline Phosphatase Lactate Dehydrogenase Troponin I B-Natriuretic Peptide 1037 H* Total Protein Albumin Globulin Albumin/Globulin Ratio Triglycerides Cholesterol LDL Cholesterol, Calc HDL Cholesterol Cholesterol/HDL Ratio Lipase Procalcitonin TSH Ur Collection Type Clean Catch Urine Color Yellow Urine Clarity Turbid A Urine pH 6.0 Ur Specific [place] 1.022 Urine Protein 3+ A Urine Glucose (UA) Negative Urine Ketones Trace Urine Blood Trace Urine Nitrite Negative Urine Bilirubin Negative Urine Urobilinogen (Auto) 2.0 Ur Leukocyte Esterase Positive Urine RBC 16 H Urine WBC 121 H Ur Squamous Epith Cells 7 H Urine Bacteria Rare Blood Type Antibody Screen Crossmatch Blood Bank Wristband ID 06/30/24 06/30/24 06/30/24 00:03 01:01 02:49 WBC RBC Hgb Hct MCV MCH MCHC RDW Std Deviation Plt Count Neut % (Auto) Lymph % (Auto) [place] % (Auto) Eos % (Auto) Baso % (Auto) Neut # (Auto) Lymph # (Auto) [place] # (Auto) Eos # (Auto) Baso # (Auto) Immature Gran # (Auto) Absolute Nucleated RBC Immature Gran % Nucleated RBC % ESR PT INR APTT Puncture Site ABG pH ABG pCO2 ABG pO2 ABG HCO3 ABG O2 Saturation ABG Base Excess VBG pH VBG pCO2 VBG pO2 VBG O2 Sat ([place]) VBG Base Excess FiO2 Sodium 115 L* Potassium 6.5 H* Chloride 77 L* Carbon Dioxide 30.9 Anion Gap 7 BUN 76 H Creatinine 1.8 H D Estim Creat Clear Calc Not Performed. eGFR 28 L BUN/Creatinine Ratio 42 H Glucose [address] Glu mg/dL Hemoglobin A1c Calculated Osmolality 259 L Lactic Acid 1.4 Calcium 7.7 L Corrected Calcium 8.7 Phosphorus 4.6 Magnesium 3.0 H Total Bilirubin 0.2 L AST 32 ALT 34 Alkaline Phosphatase 115 Lactate Dehydrogenase 196 Troponin I < 0.020 B-Natriuretic Peptide Total Protein 5.9 Albumin 2.8 L Globulin 3.1 Albumin/Globulin Ratio 0.9 L Triglycerides Cholesterol LDL Cholesterol, Calc HDL Cholesterol Cholesterol/HDL Ratio Lipase 75 H Procalcitonin 0.96 H TSH Ur Collection Type Urine Color Urine Clarity Urine pH Ur Specific [place] Urine Protein Urine Glucose (UA) Urine Ketones Urine Blood Urine Nitrite Urine Bilirubin Urine Urobilinogen (Auto) Ur Leukocyte Esterase Urine RBC Urine WBC Ur Squamous Epith Cells Urine Bacteria Blood Type A Positive Antibody Screen NEGATIVE Crossmatch See Detail Blood Bank Wristband ID Yes 06/30/24 07:24 WBC 14.3 H RBC 2.92 L Hgb 8.2 L D Hct 24.7 L MCV 85 MCH 28.1 MCHC 33.2 RDW Std Deviation 47.7 H Plt Count 397 D Neut % (Auto) 88 H Lymph % (Auto) 3 L [place] % (Auto) 8 Eos % (Auto) 1 Baso % (Auto) 0 Neut # (Auto) 12.7 H Lymph # (Auto) 0.4 L [place] # (Auto) 1.1 H Eos # (Auto) 0.1 Baso # (Auto) 0.0 Immature Gran # (Auto) 0.08 H Absolute Nucleated RBC 0.00 Immature Gran % 1 H Nucleated RBC % 0 ESR 70 H PT 11.1 INR 1.0 APTT Puncture Site ABG pH ABG pCO2 ABG pO2 ABG HCO3 ABG O2 Saturation ABG Base Excess VBG pH 7.54 VBG pCO2 34 L VBG pO2 57 VBG O2 Sat (Kole) 94 L VBG Base Excess 6 H FiO2 Sodium 123 L Potassium 5.2 H D Chloride 86 L Carbon Dioxide 27.2 Anion Gap 10 BUN 68 H Creatinine 1.7 H Estim Creat Clear Calc Not Performed. eGFR 30 L BUN/Creatinine Ratio 40 H Glucose [address] Glu mg/dL 134 H Hemoglobin A1c 6.3 H Calculated Osmolality 271 L Lactic Acid Calcium 8.0 L Corrected Calcium 9.0 Phosphorus 4.3 Magnesium Total Bilirubin 0.3 AST 32 ALT 33 Alkaline Phosphatase 110 Lactate Dehydrogenase Troponin I B-Natriuretic Peptide Total Protein 5.9 Albumin 2.7 L Globulin 3.2 Albumin/Globulin Ratio 0.8 L Triglycerides < 15 L Cholesterol 63 L LDL Cholesterol, Calc 31 HDL Cholesterol 29 L Cholesterol/HDL Ratio 2.2 L Lipase Procalcitonin TSH 0.25 L Ur Collection Type Urine Color Urine Clarity Urine pH Ur Specific [place] Urine Protein Urine Glucose (UA) Urine Ketones Urine Blood Urine Nitrite Urine Bilirubin Urine Urobilinogen (Auto) Ur Leukocyte Esterase Urine RBC Urine WBC Ur Squamous Epith Cells Urine Bacteria Blood Type Antibody Screen Crossmatch Blood Bank Wristband ID ABG Interpretation ABG results: 06/29/24 06/30/24 22:53 07:24 ABG pH 7.51 H ABG pCO2 42 ABG pO2 54 L* ABG HCO3 34 H ABG O2 Saturation 91 ABG Base Excess 10 H VBG pH 7.54 VBG pCO2 34 L VBG pO2 57 VBG Base Excess 6 H Quality Measures Quality Measures sepsis Current suspected stage: sepsis Possible source: pulmonary and genitourinary Blood cultures ordered: yes Antibiotic ordered: Yes Advance care planning discussed with:: patient Assessment & Plan Assessment Current Active Medications: Generic Name Dose Route Start Last Admin Trade Name Freq PRN Reason Stop Dose Admin Al Hydrox/Mg Hydrox/Simethicone 30 ml 06/30/24 02:29 Mg Hyd/Al Hyd/[place] (Maalox Reg) Susp 30 Ml Udc PO 07/30/24 02:28 Q4HR PRN Heartburn or Upset Stomach Albuterol/Ipratropium 3 ml 06/30/24 02:34 Albuterol/Ipratropium (Duoneb) Rt Viviana 3 Ml Nebu INH 07/30/24 02:33 Q2HR PRN SHORTNESS OF BREATH OR WHEEZE Desmopressin Acetate 2 mcg 06/30/24 09:30 Desmopressin Acetate 4 Mcg/Ml Vial IV 07/30/24 09:29 Q8H AMARJIT Dextrose 25 ml 06/30/24 03:02 Dextrose 50%-Water Inj 50 Ml Syringe IV 07/30/24 03:01 Q15MIN PRN BG 50-70 responsive npo pt Dextrose 50 ml 06/30/24 03:02 Dextrose 50%-Water Inj 50 Ml Syringe IV 07/30/24 03:01 Q15MIN PRN BG <50 OR BG <70 & pt unresponsive Glucagon 1 mg 06/30/24 03:02 Glucagon Inj 1 Mg Vial IM Q15MIN PRN BG <70, and no IV access Doxycycline Hyclate 100 mg/ 100 mls @ 100 mls/hr 06/30/24 09:00 06/30/24 09:19 Sodium Chloride IV 07/07/24 08:59 100 mls/hr BID AMARJIT Administration Piperacillin/Tazobactam/Dextrose 3.375 gm in 50 mls @ 12.5 mls/hr 06/30/24 07:30 06/30/24 09:19 Zosyn IV 07/07/24 07:29 12.5 mls/hr Q8HR AMARJIT Administration Protocol Insulin Human Lispro 0 unit 06/30/24 07:30 06/30/24 09:01 Insulin Lispro (Admelog) 1 Unit/0.01 Ml Unit SC 07/30/24 07:29 Not Given AC AMARJIT Protocol Lactulose 20 gm 06/30/24 03:04 Lactulose Syrup 20 Gm/30 Ml Udc PO 07/30/24 08:59 QDAY PRN Constipation Protocol Lansoprazole 30 mg 06/30/24 09:00 06/30/24 09:19 Lansoprazole 30 Mg Tab.Rap.Dr AKERS 07/30/24 08:59 30 mg QDAY AMARJIT Administration Magnesium Hydroxide 30 ml 06/30/24 02:29 Milk Of Magnesia Susp 30 Ml Udc PO 07/30/24 02:28 QDAY PRN CONSTIPATION Pharmacy Consult 1 each 06/30/24 09:00 Pharmacy Renal Dose Adjustment 1 Ea XX 07/30/24 08:59 QDAY PRN CONSULT Sodium Chloride 3 ml 06/30/24 03:27 Sodium Chloride Rt Viviana 0.9% 3 Ml Nebu INH 07/30/24 03:26 PRN PRN SOLN Plan In summary: 83-year-old female with chronic tracheotomy and PEG tube following multiple strokes, seizure disorder, A-fib, HTN, T2DM, 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 Found to have severe hyponatremia, hyperkalemia and CELESTINO. CELESTINO, likely pre-renal Likely due to hypoperfusion from sepsis, fluid shifts, or renal vasoconstriction Previously normal renal function, presenting with CR 1.8, BUN 66, and EGFR 28. ? Renally dose meds, avoid overdiuresis and NEPHROTOXINS ? Daily CMP Hypotonic, hypervolemic hyponatremia Sodium 115, serum osm 259. Initially on hypertonic saline overnight (dc'd) and 2L NS boluses, currently sodium 127. Appears hypervolemic on exam with 2+ bilateral lower extremity edema. Possible d/t SIADH in settings of urosepsis/UTI/PNA vs CELESTINO. Less likely diuretics use. ? Avoid DESMOPRESSIN for now but will likely worsen hyponatremia given volume overload status. ? Given LASIX 20 mg IV x 1 ? Sodium checks q.2h. Hypochloremic Hyperkalemia Potassium 6.5, without EKG abnormalities, improved to 5.2 with management. No history of THIAZIDE or loop DIURETIC use, no history of vomiting or severe diarrhea. ddx: RTA type I is settings of UTI, vs CELESTINO. ? Trending potassium ? KAYEXALATE, ALBUTEROL, CALCIUM GLUCONATE as indicated. UTI Has been on outpatient ANTIBIOTICS for UTI. UA suggest UTI. ? Continue ANTIBIOTICS per primary team. Bradycardia Sinus bradycardia on EKG. Recurrent bradycardia per chart review. Possibly related to AMIODARONE which is currently on hold. Less likely d/t hyperkalemia, no related EKG abnormalities. ? Managed by primary team Lactic acidosis, type I versus type II (resolved) Possibly in setting of sepsis versus poor clearance. ? Managed by primary team History of multiple strokes History of seizure disorder Patient nonverbal at baseline History of A-fib History of hypertension Bilateral pneumonia Acute normocytic anemia Leukocytosis Sepsis UTI Pneumonia Decubitus ulcer Concern for osteomyelitis Constipation PEG tube feeding ? Managed by primary team. Patient case was discussed with attending, Dr. Babin. Ed Solorio DO PGYI Attending Provider Attestation/Addendum Patient seen and examined with resident physician . Note reviewed, agree with findings and recommendations. Patient currently seen in ICU. Admitted with UTI, sepsis. Did receive 2 L of fluids. Currently seems to be fluid overloaded with 2+ edema. 1 dose of Lasix given. She is from subacute care facility. On ventilator and she has a G-tube. Labs and medications reviewed. Care discussed with ICU team Thank you Dr. Douglas for allowing me to participate in the care of Ms. Bearden
--- NOTE | 2024-06-30 10:59 | PD.NEPHCONS ---
History of Present Illness Data of Consult Consult date: 06/30/24 Requesting Physician: Madeline Bansal MD Primary Care Provider: Physician No Primary/Family Consult Narrative History of present illness: Please see or progress note from today. Supposed to be consult note. cc:: cc: Madeline Bansal MD Meds Home Medications and Allergies Home Medications ?Medication ?Instructions ?Recorded ?Confirmed ?Type acetaminophen 325 mg tablet 325 mg feeding tube Q6H PRN fever 04/25/24 06/09/24 History or pain amiodarone 200 mg tablet 200 mg feeding tube DAILY 04/25/24 06/09/24 History amlodipine 10 mg tablet 10 mg feeding tube QDAY 04/25/24 06/09/24 History atorvastatin 80 mg tablet 80 mg feeding tube HS 04/25/24 06/09/24 History bisacodyl 5 mg tablet,delayed 10 mg feeding tube Q6H PRN 04/25/24 06/09/24 History release (Gentle Laxative constipation (bisacodyl)) insulin regular human 100 unit/mL 1 sliding scale dose subcut Q6H 04/25/24 06/09/24 History (3 mL) subcutaneous pen (Novolin R FlexPen) ipratropium 0.5 mg-albuterol 3 mg 3 ml inhalation Q6H PRN shortness 04/25/24 06/09/24 History (2.5 mg base)/3 mL nebulization of breath soln lactulose 10 gram/15 mL oral 10 g feeding tube Q6H 04/25/24 06/09/24 History solution (Enulose) metoprolol tartrate 25 mg tablet 25 mg feeding tube Q12H 04/25/24 06/09/24 History calcium 600 mg (as 1 cap PO DAILY 05/20/24 06/09/24 History carbonate)-vitamin D3 5 mcg (200 unit) capsule (Calcium 600 + D(3)) sennosides 8.6 mg tablet 8.6 mg feeding tube BID 05/20/24 06/09/24 History (Black-Draught Lax-Senna) ascorbic acid (vitamin C) 500 mg 500 mg feeding tube BID 06/09/24 06/09/24 History tablet (Vitamin C) carbamide peroxide 6.5 % ear drops 5 drp otic (ear) .Q61 06/09/24 06/09/24 History furosemide 20 mg tablet 20 mg feeding tube QDAY 06/09/24 06/09/24 History magnesium hydroxide 400 mg/5 mL 30 ml PO QDAY PRN constipation 06/09/24 06/09/24 History oral suspension (Milk of Magnesia) multivitamin (Daily Multi-Vitamin 1 tab feeding tube QAM 06/09/24 06/09/24 History tablet) polyethylene glycol 3350 17 17 g feeding tube QDAY 06/09/24 06/09/24 History gram/dose oral powder (Miralax) sodium chloride 1,000 mg soluble 1,000 mg feeding tube QDAY 06/09/24 06/09/24 History tablet zinc sulfate 50 mg zinc (220 mg) 50 mg feeding tube QDAY 06/09/24 06/09/24 History capsule Allergies Allergy/AdvReac Type Severity Reaction Status Date / Time No Known Allergies Allergy Verified 05/25/24 08:41 Exam Vital Signs Temp Pulse Resp BP Pulse Ox O2 Del Method FiO2 36.9 C 72 16 133/55 H 100 Mechanical Ventilation 45 07/01/24 07:15 07/01/24 08:30 07/01/24 08:30 07/01/24 08:30 07/01/24 08:30 06/30/24 07:01 07/01/24 08:00 Results Labs 07/01/24 04:28 07/01/24 08:25 Labs: Short CBC 07/01/24 Range/Units 04:28 WBC 12.5 H (3.6-11.0) Thou/mm3 Hgb 7.8 L (12.0-16.0) g/dL Hct 23.2 L (36.0-46.0) % Plt Count 401 (140-440) Thou/mm3 BMP 06/30/24 06/30/24 06/30/24 10:51 12:47 15:25 Sodium 127 L 125 L 125 L Potassium 5.2 H 4.8 4.7 Chloride 88 L 87 L 87 L Carbon Dioxide 27.7 28.8 29.3 BUN 66 H 67 H 67 H Creatinine 1.7 H 1.6 H 1.6 H Glucose 183 H 182 H 182 H Calcium 7.7 L 7.6 L 7.6 L 04/05/25 04/05/25 04/05/25 17:30 20:45 22:20 Sodium 125 L 128 L 126 L Potassium 4.6 4.4 3.9 D Chloride 88 L 89 L 88 L Carbon Dioxide 28.5 28.9 31.3 H BUN 61 H 62 H 60 H Creatinine 1.6 H 1.5 H 1.4 H Glucose 169 H 116 H D 110 H Calcium 7.7 L 8.1 L 7.9 L 07/01/24 07/01/24 07/01/24 00:20 02:12 04:28 Sodium 127 L 127 L 127 L Potassium 3.6 3.6 3.4 Chloride 87 L 89 L 89 L Carbon Dioxide 29.4 29.8 29.8 BUN 58 H 56 H 56 H Creatinine 1.4 H 1.4 H 1.4 H Glucose 107 H 98 94 Calcium 7.7 L 7.9 L 8.0 L 07/01/24 08:25 Sodium 128 L Potassium 3.3 L Chloride 88 L Carbon Dioxide 29.3 BUN 54 H Creatinine 1.3 Glucose 148 H D Calcium 7.7 L Liver Function 06/30/24 06/30/24 06/30/24 Range/Units 12:47 15:25 20:45 Total Bilirubin (0.3-1.2) mg/dL AST (0-34) U/L ALT (10-49) U/L Alkaline Phosphatase (46-116) U/L Albumin 2.5 L 2.6 L 2.7 L (3.4-4.8) gm/dL 07/01/24 Range/Units 04:28 Total Bilirubin 0.4 (0.3-1.2) mg/dL AST 33 (0-34) U/L ALT 34 (10-49) U/L Alkaline Phosphatase 97 (46-116) U/L Albumin 2.6 L (3.4-4.8) gm/dL ABG Interpretation ABG results: 06/29/24 06/30/24 22:53 07:24 ABG pH 7.51 H ABG pCO2 42 ABG pO2 54 L* ABG HCO3 34 H ABG O2 Saturation 91 ABG Base Excess 10 H VBG pH 7.54 VBG pCO2 34 L VBG pO2 57 VBG Base Excess 6 H
[2024-06-30 11:36] LABS: Anion Gap 11 (7-16); BUN/Creatinine Ratio 39 Ratio (12-20); Blood Urea Nitrogen 66 mg/dL (9-23); Calcium 7.7 mg/dL (8.3-10.6); Carbon Dioxide 27.7 mMol/L (20.0-31.0); Chloride 88 mMol/L (98-107); Creatinine (Component) 1.7 mg/dL (0.6-1.3); Estimated Creatinine Clearance 18.2 mL/min (>60); Glucose 183 mg/dL (74-106); Osmolality,Calculated 279 (275-295); Potassium 5.2 mMol/L (3.4-5.1); Sodium 127 mMol/L (136-145); eGFR 30 See Note
[2024-06-30] MEDS: INSULIN LISPRO (AdmeLOG) 1 UNIT/0.01 ML UNIT SC ×2 (11:55→17:33)
[2024-06-30] MEDS: DESMOPRESSIN ACETATE 4 MCG/ML VIAL 2 MCG IV ×2 (12:40→20:37)
--- NOTE | 2024-06-30 13:07 | XR_ITS ---
Examination: Venous duplex upper extremity sonogram, bilateral. Date and time of exam: June 30, 2024 1958 hours INDICATIONS: Bilateral arm swelling and pain this week Technique: Multiple sonographic images of the deep venous system have been obtained. B-mode/2-D grayscale imaging of vascular structures and Doppler spectral analysis (waveforms) and color performed Both legs are examined. Findings: Deep venous systems do not demonstrate abnormal echogenicity. The basilic veins are not visualized All visualized deep veins exhibit compressibility. All visualized deep veins exhibit augmentation. Impression: Negative for deep vein thrombosis
[2024-06-30 13:29] LABS: Albumin, Serum 2.5 gm/dL (3.4-4.8); Anion Gap 9 (7-16); BUN/Creatinine Ratio 42 Ratio (12-20); Blood Urea Nitrogen 67 mg/dL (9-23); Calcium 7.6 mg/dL (8.3-10.6); Calcium (Corrected) 8.8 mg/dL (8.5-10.1); Carbon Dioxide 28.8 mMol/L (20.0-31.0); Chloride 87 mMol/L (98-107); Creatinine (Component) 1.6 mg/dL (0.6-1.3); Estimated Creatinine Clearance 19.3 mL/min (>60); Glucose 182 mg/dL (74-106); Osmolality,Calculated 275 (275-295); Phosphorous 4.6 mg/dL (2.4-5.1); Potassium 4.8 mMol/L (3.4-5.1); Sodium 125 mMol/L (136-145); eGFR 32 See Note
[2024-06-30] MEDS: DEXTROSE 5%-WATER 250 ML 125 ML IV (13:58)
--- NOTE | 2024-06-30 15:17 | ESPR_ITS ---
Documentation for date of: 06/30/24 Subjective Subjective Interval history: Patient is a 83 years old female, 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 Patient is nonverbal at baseline, HPI completed through chart review. As per ED note, patient was receiving antibiotics for UTI. In the ED, her initial vitals were blood pressure of 134/64, pulse 46, respiratory rate 32, temperature 98.0, saturating well on mechanical ventilator with 43% FiO2 which is her baseline at the subacute. Lab results are significant for WBC of 16.7, hemoglobin/hematocrit of 6.6/19.6, sodium 115, potassium 6.5, chloride 77, BUN/creatinine 76/1.8, glucose 177, osmolality 259, lactic acid 2.2, BNP 1037, procalcitonin 0.96. ABG was obtained which shows pH of 7.51, PO2 of 54, bicarb from CHEM panel was 30.9. Urinalysis shows 121 WBCs, positive leukocyte esterase and rare bacteria. As per patient's RN, the Peace catheter appears recently exchanged. Patient received 2 L normal saline bolus, 2 g magnesium sulfate IV, Zosyn, doxycycline. She was also started on hypertonic saline. 06/30/2024: Patient was seen and examined at bedside this morning. Patient is nonverbal at baseline. Patient sodium corrected to 123 at 7:30 AM today from 115 at midnight. At this time patient's hypertonic saline was discontinued and patient was placed on desmopressin. Patient potassium also went down to 4.8 throughout the day. Will plan to give patient 250 mL of desmopressin over 2 hours as repeat sodium checked came back at 127. Goal sodium correction today would be in the 122-123 until midnight. Patient's MAP was below 65, but blood pressure cuff was on legs that patient has bilateral DVTs as per subacute. Patient was fluid responsive on [place] therefore gave some gentle IV fluids at this time as patient's MAP improved without any intervention at this time. Patient has been having multiple bowel movements today therefore rectal tube was placed to decrease risk of infection and patient's decubitus ulcer. Ordered ultrasound of bilateral upper extremities to assess pain thrombosis and ordered lactic acid to see if patient's perfusion at this time. Spoke with patient's son who stated that family would like everything to be done for the patient at this time. Exam Vital Signs Temp Pulse Resp BP Pulse Ox O2 Del Method FiO2 97.5 F 71 19 122/59 L 100 Mechanical Ventilation 45 06/30/24 12:01 06/30/24 15:01 06/30/24 15:01 06/30/24 15:01 06/30/24 15:01 06/30/24 07:01 06/30/24 12:28 Narrative Exam General: Nonverbal, ill-appearing elderly able to move all extremities, but unable to trace or follow commands Eyes: Pupils sluggish, but extraocular muscles are intact. Unable to trace Ears: No visible ear discharge Nose: No visible nasal discharge. Mouth/Throat: Dry mucous membranes, no redness, no lesions. Neck: Neck supple, no cervical lymphadenopathy. Lungs: Clear PEEWEE to auscultation and percussion, No accessory muscle use. Tracheostomy in place Cardio: Normal S1/S2, irregular rhythm, no murmurs, no JVD Abdomen: Soft, non-tender, no palpable masses, peristalsis present, no guarding or rebound. Extremities: Symmetrical, no significant deformities, edema on bilateral feet, non-tender, peripheral pulses presents. Skin: Large decubitus ulcer on sacral region with some purulent discharge. Neuro: Nonverbal at baseline, unable to trace, contractures noted, able to move lower extremities Objective Labs 06/30/24 07:24 06/30/24 12:47 Labs: Laboratory Results - last 24 hr 06/29/24 06/29/24 06/29/24 22:50 22:53 22:58 WBC 16.7 H D RBC 2.40 L Hgb 6.6 L* D Hct 19.6 L* MCV 82 MCH 27.5 MCHC 33.7 RDW Std Deviation 48.5 H Plt Count 440 D Neut % (Auto) 89 H Lymph % (Auto) 3 L [place] % (Auto) 6 Eos % (Auto) 0 Baso % (Auto) 0 Neut # (Auto) 15.0 H Lymph # (Auto) 0.5 L [place] # (Auto) 1.0 H Eos # (Auto) 0.1 Baso # (Auto) 0.0 Immature Gran # (Auto) 0.11 H Absolute Nucleated RBC 0.00 Immature Gran % 1 H Nucleated RBC % 0 ESR PT 10.9 INR 1.0 APTT 36.8 H Puncture Site Right Radial ABG pH 7.51 H ABG pCO2 42 ABG pO2 54 L* ABG HCO3 34 H ABG O2 Saturation 91 ABG Base Excess 10 H VBG pH VBG pCO2 VBG pO2 VBG O2 Sat ([place]) VBG Base Excess FiO2 21 Sodium Potassium Chloride Carbon Dioxide Anion Gap BUN Creatinine Estim Creat Clear Calc eGFR BUN/Creatinine Ratio Glucose Estimated Ave Glu mg/dL Hemoglobin A1c Calculated Osmolality Lactic Acid 2.2 H Calcium Corrected Calcium Phosphorus Magnesium Total Bilirubin AST ALT Alkaline Phosphatase Lactate Dehydrogenase Troponin I B-Natriuretic Peptide 1037 H* Total Protein Albumin Globulin Albumin/Globulin Ratio Triglycerides Cholesterol LDL Cholesterol, Calc HDL Cholesterol Cholesterol/HDL Ratio Lipase Procalcitonin TSH Ur Collection Type Clean Catch Urine Color Yellow Urine Clarity Turbid A Urine pH 6.0 Ur Specific [place] 1.022 Urine Protein 3+ A Urine Glucose (UA) Negative Urine Ketones Trace Urine Blood Trace Urine Nitrite Negative Urine Bilirubin Negative Urine Urobilinogen (Auto) 2.0 Ur Leukocyte Esterase Positive Urine RBC 16 H Urine WBC 121 H Ur Squamous Epith Cells 7 H Urine Bacteria Rare Blood Type Antibody Screen Crossmatch Blood Bank Wristband ID 06/30/24 06/30/24 06/30/24 00:03 01:01 02:49 WBC RBC Hgb Hct MCV MCH MCHC RDW Std Deviation Plt Count Neut % (Auto) Lymph % (Auto) [place] % (Auto) Eos % (Auto) Baso % (Auto) Neut # (Auto) Lymph # (Auto) [place] # (Auto) Eos # (Auto) Baso # (Auto) Immature Gran # (Auto) Absolute Nucleated RBC Immature Gran % Nucleated RBC % ESR PT INR APTT Puncture Site ABG pH ABG pCO2 ABG pO2 ABG HCO3 ABG O2 Saturation ABG Base Excess VBG pH VBG pCO2 VBG pO2 VBG O2 Sat ([place]) VBG Base Excess FiO2 Sodium 115 L* Potassium 6.5 H* Chloride 77 L* Carbon Dioxide 30.9 Anion Gap 7 BUN 76 H Creatinine 1.8 H D Estim Creat Clear Calc Not Performed. eGFR 28 L BUN/Creatinine Ratio 42 H Glucose [address] Glu mg/dL Hemoglobin A1c Calculated Osmolality 259 L Lactic Acid 1.4 Calcium 7.7 L Corrected Calcium 8.7 Phosphorus 4.6 Magnesium 3.0 H Total Bilirubin 0.2 L AST 32 ALT 34 Alkaline Phosphatase 115 Lactate Dehydrogenase 196 Troponin I < 0.020 B-Natriuretic Peptide Total Protein 5.9 Albumin 2.8 L Globulin 3.1 Albumin/Globulin Ratio 0.9 L Triglycerides Cholesterol LDL Cholesterol, Calc HDL Cholesterol Cholesterol/HDL Ratio Lipase 75 H Procalcitonin 0.96 H TSH Ur Collection Type Urine Color Urine Clarity Urine pH Ur Specific [place] Urine Protein Urine Glucose (UA) Urine Ketones Urine Blood Urine Nitrite Urine Bilirubin Urine Urobilinogen (Auto) Ur Leukocyte Esterase Urine RBC Urine WBC Ur Squamous Epith Cells Urine Bacteria Blood Type A Positive Antibody Screen NEGATIVE Crossmatch See Detail Blood Bank Wristband ID Yes 06/30/24 06/30/24 06/30/24 07:24 10:51 12:47 WBC 14.3 H RBC 2.92 L Hgb 8.2 L D Hct 24.7 L MCV 85 MCH 28.1 MCHC 33.2 RDW Std Deviation 47.7 H Plt Count 397 D Neut % (Auto) 88 H Lymph % (Auto) 3 L [place] % (Auto) 8 Eos % (Auto) 1 Baso % (Auto) 0 Neut # (Auto) 12.7 H Lymph # (Auto) 0.4 L [place] # (Auto) 1.1 H Eos # (Auto) 0.1 Baso # (Auto) 0.0 Immature Gran # (Auto) 0.08 H Absolute Nucleated RBC 0.00 Immature Gran % 1 H Nucleated RBC % 0 ESR 70 H PT 11.1 INR 1.0 APTT Puncture Site ABG pH ABG pCO2 ABG pO2 ABG HCO3 ABG O2 Saturation ABG Base Excess VBG pH 7.54 VBG pCO2 34 L VBG pO2 57 VBG O2 Sat ([place]) 94 L VBG Base Excess 6 H FiO2 Sodium 123 L 127 L 125 L Potassium 5.2 H D 5.2 H 4.8 Chloride 86 L 88 L 87 L Carbon Dioxide 27.2 27.7 28.8 Anion Gap 10 11 9 BUN 68 H 66 H 67 H Creatinine 1.7 H 1.7 H 1.6 H Estim Creat Clear Calc Not Performed. 18.2 L 19.3 L eGFR 30 L 30 L 32 L BUN/Creatinine Ratio 40 H 39 H 42 H Glucose 175 H 183 H [address] Glu mg/dL 134 H Hemoglobin A1c 6.3 H Calculated Osmolality 271 L 279 275 Lactic Acid Calcium 8.0 L 7.7 L 7.6 L Corrected Calcium 9.0 8.8 Phosphorus 4.3 4.6 Magnesium Total Bilirubin 0.3 AST 32 ALT 33 Alkaline Phosphatase 110 Lactate Dehydrogenase Troponin I B-Natriuretic Peptide Total Protein 5.9 Albumin 2.7 L 2.5 L Globulin 3.2 Albumin/Globulin Ratio 0.8 L Triglycerides < 15 L Cholesterol 63 L LDL Cholesterol, Calc 31 HDL Cholesterol 29 L Cholesterol/HDL Ratio 2.2 L Lipase Procalcitonin TSH 0.25 L Ur Collection Type Urine Color Urine Clarity Urine pH Ur Specific [place] Urine Protein Urine Glucose (UA) Urine Ketones Urine Blood Urine Nitrite Urine Bilirubin Urine Urobilinogen (Auto) Ur Leukocyte Esterase Urine RBC Urine WBC Ur Squamous Epith Cells Urine Bacteria Blood Type Antibody Screen Crossmatch Blood Bank Wristband ID ABG Interpretation ABG results: 06/29/24 06/30/24 22:53 07:24 ABG pH 7.51 H ABG pCO2 42 ABG pO2 54 L* ABG HCO3 34 H ABG O2 Saturation 91 ABG Base Excess 10 H VBG pH 7.54 VBG pCO2 34 L VBG pO2 57 VBG Base Excess 6 H Quality Measures Quality Measures sepsis Current suspected stage: sepsis Possible source: pulmonary and genitourinary Blood cultures ordered: yes Antibiotic ordered: Yes Advance care planning discussed with:: patient and legal surragate Assessment & Plan Assessment Current Active Medications: Generic Name Dose Route Start Last Admin Trade Name Freq PRN Reason Stop Dose Admin Al Hydrox/Mg Hydrox/Simethicone 30 ml 06/30/24 02:29 Mg Hyd/Al Hyd/[place] (Maalox Reg) Susp 30 Ml Udc PO 07/30/24 02:28 Q4HR PRN Heartburn or Upset Stomach Albuterol/Ipratropium 3 ml 06/30/24 02:34 Albuterol/Ipratropium (Duoneb) Rt Viviana 3 Ml Nebu INH 07/30/24 02:33 Q2HR PRN SHORTNESS OF BREATH OR WHEEZE Desmopressin Acetate 2 mcg 06/30/24 11:55 06/30/24 12:40 Desmopressin Acetate 4 Mcg/Ml Vial IV 07/30/24 11:29 2 mcg Q8H AMARJIT Administration Dextrose 25 ml 06/30/24 03:02 Dextrose 50%-Water Inj 50 Ml Syringe IV 07/30/24 03:01 Q15MIN PRN BG 50-70 responsive npo pt Dextrose 50 ml 06/30/24 03:02 Dextrose 50%-Water Inj 50 Ml Syringe IV 07/30/24 03:01 Q15MIN PRN BG <50 OR BG <70 & pt unresponsive Glucagon 1 mg 06/30/24 03:02 Glucagon Inj 1 Mg Vial IM Q15MIN PRN BG <70, and no IV access Doxycycline Hyclate 100 mg/ 100 mls @ 100 mls/hr 06/30/24 09:00 06/30/24 09:19 Sodium Chloride IV 07/07/24 08:59 100 mls/hr BID AMARJIT Administration Piperacillin/Tazobactam/Dextrose 3.375 gm in 50 mls @ 12.5 mls/hr 06/30/24 07:30 06/30/24 14:59 Zosyn IV 07/07/24 07:29 12.5 mls/hr Q8HR AMARJIT Administration Protocol Dextrose 250 mls @ 125 mls/hr 06/30/24 13:45 06/30/24 13:58 D5w IV 06/30/24 15:44 125 mls/hr .Q2H AMARJIT Administration Insulin Human Lispro 0 unit 06/30/24 07:30 06/30/24 11:55 Insulin Lispro (Admelog) 1 Unit/0.01 Ml Unit SC 07/30/24 07:29 1 unit AC AMARJIT Administration Protocol Lactulose 20 gm 06/30/24 03:04 Lactulose Syrup 20 Gm/30 Ml Udc PO 07/30/24 08:59 QDAY PRN Constipation Protocol Lansoprazole 30 mg 06/30/24 09:00 06/30/24 09:19 Lansoprazole 30 Mg Tab.Rap.Dr AKERS 07/30/24 08:59 30 mg QDAY AMARJIT Administration Magnesium Hydroxide 30 ml 06/30/24 02:29 Milk Of Magnesia Susp 30 Ml Udc PO 07/30/24 02:28 QDAY PRN CONSTIPATION Pharmacy Consult 1 each 06/30/24 09:00 Pharmacy Renal Dose Adjustment 1 Ea XX 07/30/24 08:59 QDAY PRN CONSULT Sodium Chloride 3 ml 06/30/24 03:27 Sodium Chloride Rt Viviana 0.9% 3 Ml Nebu INH 07/30/24 03:26 PRN PRN SOLN Plan 83-year-old female with past medical history of chronic tracheostomy with PEG tube due to multiple strokes, seizure disorder, A-fib, hypertension, type 2 diabetes mellitus, and HFpEF entheses 55 to 60% on 04/2024 was admitted to the ICU on 06/30/2024 due to hyponatremia and sepsis with anticipation of possible shock, patient was bradycardic. 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 Patient appears to have good chronotropic response and blood pressure has been stable Will continue to hold off on amiodarone and other rate control medications We will also start patient on calcium gluconate 600 mg daily as patient was hypocalcemic which could be contributing to bradycardia #History of hypertension Will hold off on blood pressure medications for now given likelihood of sepsis #HFpEF (55 to 60% on 04/2024) Patient's BNP was elevated at 1037 Patient appears to be hypovolemic even though there is some bilateral feet edema which could be due to venous stasis Will not therapies for now given the patient has hyponatremia Respiratory #Bilateral pneumonia Chest x-ray showed some bilateral pleural parenchymal disease Patient had a white blood cell count of 16.7 initially sputum cultures pending will continue with doxycycline and Zosyn for now Renal # Severe hypoosmolar hyponatremia Patient came in initially with a sodium of 115 given patient's current condition it is very difficult to assess patient's mental status Patient was started on hypertonic saline sodium went up to 123 at 7:30 AM today from 115 at midnight. Started patient on desmopressin and stop patient's hypertonic saline. Start patient on D5W 250 mL over 2 hours to keep sodium in the 122-123 range BMP every 2 hours. Nephrology consulted #Hyperkalemia, resolved Patient came in initially with potassium of 6.5, but EKG did not show any peaked T waves. Patient was given albuterol, insulin, calcium gluconate, and Kayexalate overnight Patient's potassium improved to 4.7 #CELESTINO Patient came in with creatinine of 1.8 initially from a baseline of around 0.9- 1.2 Most likely prerenal in the setting of hypovolemia Avoid nephrotoxic agents Renally dose medication Nephrology consulted #Hypocalcemia Patient's calcium was 7.6 today Patient received calcium gluconate 1 g today Start patient on calcium carbonate 600 mg daily #Lactic acidosis, resolved Heme # Normocytic normochromic anemia Patient came in with hemoglobin 6.6 from her baseline of around 8-8.7. Unclear etiology if patient is bleeding, but patient does have a decubitus ulcer which could be the cause. Other etiologies would include anemia of chronic disease Patient got 1 PRBC transfused and hemoglobin went up to 8.2. Will continue to monitor ID #Sepsis #UTI #Pneumonia #Decubitus ulcer Patient initially came in with elevated lactic acid along with leukocytosis and endorgan damage. Patient on chest x-ray does have some pleural and parenchymal disease which could have some superimposed pneumonia. Patient has well had a positive UA and has a sacral decubitus ulcer which seems to be having purulent discharge. These could be contributing to the patient's possible sepsis Blood, urine, and ET secretions cultures ordered Continue Zosyn and doxycycline for now CT abdomen/pelvis ordered to assess if patient's ulcer has invaded the bone which could potentially be causing osteomyelitis. Endo #DM2 Patient's latest A1c was 6.3% ISS GI #Constipation, resolved #PEG tube feeding Lansoprazole for GI prophylaxis Hospital Maintenance: Diet: PEG tube DVT ppx: held in the setting of low Hgb requiring 1 PRBC GI ppx: lansoprazole IV lines: PIV Peace: peace Code status: DNR Dispo: ICU for hyponatremia Case disclosed with Attending Dr. Stella Brunner PGY1
[2024-06-30 15:37] LABS: Lactate (Lactic Acid) 1.4 mMol/L (0.4-2.0)
[2024-06-30 16:01] LABS: Albumin, Serum 2.6 gm/dL (3.4-4.8); Anion Gap 9 (7-16); BUN/Creatinine Ratio 42 Ratio (12-20); Blood Urea Nitrogen 67 mg/dL (9-23); Calcium 7.6 mg/dL (8.3-10.6); Calcium (Corrected) 8.7 mg/dL (8.5-10.1); Carbon Dioxide 29.3 mMol/L (20.0-31.0); Chloride 87 mMol/L (98-107); Creatinine (Component) 1.6 mg/dL (0.6-1.3); Estimated Creatinine Clearance 19.3 mL/min (>60); Glucose 182 mg/dL (74-106); Osmolality,Calculated 275 (275-295); Phosphorous 4.9 mg/dL (2.4-5.1); Potassium 4.7 mMol/L (3.4-5.1); Sodium 125 mMol/L (136-145); eGFR 32 See Note
[2024-06-30] MEDS: CALCIUM CARBONATE 600 MG TABLET GT (17:33)
--- NOTE | 2024-06-30 17:57 | PC.NURSE ---
Report given to ELIAAN Araujo who will assume care of patient
[2024-06-30 18:08] LABS: Anion Gap 9 (7-16); BUN/Creatinine Ratio 38 Ratio (12-20); Blood Urea Nitrogen 61 mg/dL (9-23); Calcium 7.7 mg/dL (8.3-10.6); Carbon Dioxide 28.5 mMol/L (20.0-31.0); Chloride 88 mMol/L (98-107); Creatinine (Component) 1.6 mg/dL (0.6-1.3); Estimated Creatinine Clearance 19.3 mL/min (>60); Glucose 169 mg/dL (74-106); Osmolality,Calculated 272 (275-295); Potassium 4.6 mMol/L (3.4-5.1); Sodium 125 mMol/L (136-145); eGFR 32 See Note
[2024-06-30] MEDS: ATORVASTATIN CALCIUM 20 MG TABLET 80 MG GT (20:37)
[2024-06-30 21:30] LABS: Albumin, Serum 2.7 gm/dL (3.4-4.8); Anion Gap 10 (7-16); BUN/Creatinine Ratio 41 Ratio (12-20); Blood Urea Nitrogen 62 mg/dL (9-23); Calcium 8.1 mg/dL (8.3-10.6); Calcium (Corrected) 9.1 mg/dL (8.5-10.1); Carbon Dioxide 28.9 mMol/L (20.0-31.0); Chloride 89 mMol/L (98-107); Creatinine (Component) 1.5 mg/dL (0.6-1.3); Estimated Creatinine Clearance 20.6 mL/min (>60); Glucose 116 mg/dL (74-106); Osmolality,Calculated 275 (275-295); Phosphorous 4.9 mg/dL (2.4-5.1); Potassium 4.4 mMol/L (3.4-5.1); Sodium 128 mMol/L (136-145); eGFR 34 See Note
[2024-06-30 23:06] LABS: Anion Gap 7 (7-16); BUN/Creatinine Ratio 43 Ratio (12-20); Blood Urea Nitrogen 60 mg/dL (9-23); Calcium 7.9 mg/dL (8.3-10.6); Carbon Dioxide 31.3 mMol/L (20.0-31.0); Chloride 88 mMol/L (98-107); Creatinine (Component) 1.4 mg/dL (0.6-1.3); Estimated Creatinine Clearance 22.1 mL/min (>60); Glucose 110 mg/dL (74-106); Osmolality,Calculated 271 (275-295); Potassium 3.9 mMol/L (3.4-5.1); Sodium 126 mMol/L (136-145); eGFR 37 See Note
[2024-07-01] VITALS (68 sets, daily range): BP systolic 86–175; BP diastolic 52–133; PULSE 69–81; RESP 14–27; TEMP 36.8–36.9; O2SAT 100
[2024-07-01 01:08] LABS: Anion Gap 11 (7-16); BUN/Creatinine Ratio 41 Ratio (12-20); Blood Urea Nitrogen 58 mg/dL (9-23); Calcium 7.7 mg/dL (8.3-10.6); Carbon Dioxide 29.4 mMol/L (20.0-31.0); Chloride 87 mMol/L (98-107); Creatinine (Component) 1.4 mg/dL (0.6-1.3); Estimated Creatinine Clearance 22.1 mL/min (>60); Glucose 107 mg/dL (74-106); Osmolality,Calculated 271 (275-295); Potassium 3.6 mMol/L (3.4-5.1); Sodium 127 mMol/L (136-145); eGFR 37 See Note
[2024-07-01 03:05] LABS: Anion Gap 8 (7-16); BUN/Creatinine Ratio 40 Ratio (12-20); Blood Urea Nitrogen 56 mg/dL (9-23); Calcium 7.9 mg/dL (8.3-10.6); Carbon Dioxide 29.8 mMol/L (20.0-31.0); Chloride 89 mMol/L (98-107); Creatinine (Component) 1.4 mg/dL (0.6-1.3); Estimated Creatinine Clearance 22.1 mL/min (>60); Glucose 98 mg/dL (74-106); Osmolality,Calculated 270 (275-295); Potassium 3.6 mMol/L (3.4-5.1); Sodium 127 mMol/L (136-145); eGFR 37 See Note
[2024-07-01] MEDS: DESMOPRESSIN ACETATE 4 MCG/ML VIAL 2 MCG IV ×3 (04:14→20:12)
[2024-07-01] MEDS: PIPER/TAZO 3.375 GM PREMIX 3.375 GM/50 ML BAG IV ×3 (05:15→21:26)
[2024-07-01 06:17] LABS: Basophils % (Auto) 0 % (0-2.5); Eosinophils # (Auto) 0.3 Thou/mm3 (0.0-0.5); Eosinophils % (Auto) 2 % (0-10); Hematocrit 23.2 % (36.0-46.0); Immature Granulocytes % (Auto) 1 % (0-0); Immature Granulocytes Auto 0.07 Thou/mm3 (0.00-0.00); Lymphocytes # (Auto) 0.4 Thou/mm3 (1.0-4.8); Lymphocytes % (Auto) 3 % (10-50); Mean Corpuscular HGB Conc 33.6 g/dl (31.0-37.0); Mean Corpuscular Hemoglobin 27.8 pg (25.0-35.0); Mean Corpuscular Volume 83 fL (80-100); Monocytes # (Auto) 0.9 Thou/mm3 (0.0-0.8); Monocytes % (Auto) 7 % (0-12); Neutrophils # (Auto) 10.7 Thou/mm3 (1.8-7.7); Neutrophils % (Auto) 86 % (37-80); Nucleated Red Blood Cell % 0 /100 WBC (0); Platelet Count 401 Thou/mm3 (140-440); RDW Standard Deviation 47.1 fL (36.4-46.3); Red Blood Count 2.81 Miln/mm3 (4.00-5.20); White Blood Count 12.5 Thou/mm3 (3.6-11.0)
[2024-07-01 06:31] LABS: Hemoglobin 7.8 g/dL (12.0-16.0)
[2024-07-01 06:34] LABS: INR 1.1 (0.9-1.3); Prothrombin Time 11.6 Seconds (9.0-12.2)
--- NOTE | 2024-07-01 06:56 | XR_ITS ---
Examination: AP chest single view TECHNIQUE: AP portable supine chest single view Exam date 9: July 01, 2024 0712 hours Comparison June 30, 2024 INDICATIONS:: Hypoxic respiratory failure difficulty breathing, pneumonia on earlier chest imaging with recurrent pleural fluid FINDINGS: Mild enlargement cardiac contour Again noted extensive pleural-parenchymal disease bilaterally No current pneumothorax Right Pleurx catheter Tracheostomy tube tip 8.7 cm above Melanie IMPRESSION: No significant change in extensive pneumonia and pleural disease bilaterally
[2024-07-01 06:59] LABS: Alanine Aminotransferase 34 U/L (10-49); Albumin, Serum 2.6 gm/dL (3.4-4.8); Albumin/Globulin Ratio 0.8 (1.2-2.2); Alkaline Phosphatase 97 U/L (46-116); Anion Gap 8 (7-16); Aspartate Amino Transferase 33 U/L (0-34); BUN/Creatinine Ratio 40 Ratio (12-20); Bilirubin,Total 0.4 mg/dL (0.3-1.2); Blood Urea Nitrogen 56 mg/dL (9-23); Calcium (Corrected) 9.1 mg/dL (8.5-10.1); Carbon Dioxide 29.8 mMol/L (20.0-31.0); Chloride 89 mMol/L (98-107); Creatinine (Component) 1.4 mg/dL (0.6-1.3); Globulin 3.2 gm/dL (2.3-3.5); Glucose 94 mg/dL (74-106); Osmolality,Calculated 270 (275-295); Potassium 3.4 mMol/L (3.4-5.1); Sodium 127 mMol/L (136-145); Total Protein 5.8 gm/dL (5.7-8.2); eGFR 37 See Note
[2024-07-01] MEDS: DEXTROSE 5%-WATER 250 ML 125 ML IV (07:32)
[2024-07-01 09:20] LABS: Anion Gap 11 (7-16); BUN/Creatinine Ratio 42 Ratio (12-20); Blood Urea Nitrogen 54 mg/dL (9-23); Calcium 7.7 mg/dL (8.3-10.6); Carbon Dioxide 29.3 mMol/L (20.0-31.0); Chloride 88 mMol/L (98-107); Creatinine (Component) 1.3 mg/dL (0.6-1.3); Estimated Creatinine Clearance 24.7 mL/min (>60); Glucose 148 mg/dL (74-106); Osmolality,Calculated 274 (275-295); Potassium 3.3 mMol/L (3.4-5.1); Sodium 128 mMol/L (136-145); eGFR 41 See Note
[2024-07-01] MEDS: LANSOPRAZOLE 30 MG TAB.RAP.DR GT (09:45)
[2024-07-01] MEDS: DOXYCYCLINE INJ 100 MG in SODIUM CHLORIDE 0.9% (POP) 100 ML IV ×2 (09:45→21:23)
[2024-07-01] MEDS: CALCIUM CARBONATE 600 MG TABLET GT (09:45)
--- NOTE | 2024-07-01 09:47 | PD.RESPRO ---
Documentation for date of: 07/01/24 Subjective Subjective Interval history: Patient is a 83 years old female, 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 Patient is nonverbal at baseline, HPI completed through chart review. As per ED note, patient was receiving antibiotics for UTI. In the ED, her initial vitals were blood pressure of 134/64, pulse 46, respiratory rate 32, temperature 98.0, saturating well on mechanical ventilator with 43% FiO2 which is her baseline at the subacute. Lab results are significant for WBC of 16.7, hemoglobin/hematocrit of 6.6/19.6, sodium 115, potassium 6.5, chloride 77, BUN/creatinine 76/1.8, glucose 177, osmolality 259, lactic acid 2.2, BNP 1037, procalcitonin 0.96. ABG was obtained which shows pH of 7.51, PO2 of 54, bicarb from CHEM panel was 30.9. Urinalysis shows 121 WBCs, positive leukocyte esterase and rare bacteria. As per patient's RN, the Peace catheter appears recently exchanged. Patient received 2 L normal saline bolus, 2 g magnesium sulfate IV, Zosyn, doxycycline. She was also started on hypertonic saline. 06/30/2024: Patient was seen and examined at bedside this morning. Patient is nonverbal at baseline. Patient sodium corrected to 123 at 7:30 AM today from 115 at midnight. At this time patient's hypertonic saline was discontinued and patient was placed on desmopressin. Patient potassium also went down to 4.8 throughout the day. Will plan to give patient 250 mL of desmopressin over 2 hours as repeat sodium checked came back at 127. Goal sodium correction today would be in the 122-123 until midnight. Patient's MAP was below 65, but blood pressure cuff was on legs that patient has bilateral DVTs as per subacute. Patient was fluid responsive on Cheetah therefore gave some gentle IV fluids at this time as patient's MAP improved without any intervention at this time. Patient has been having multiple bowel movements today therefore rectal tube was placed to decrease risk of infection and patient's decubitus ulcer. Ordered ultrasound of bilateral upper extremities to assess pain thrombosis and ordered lactic acid to see if patient's perfusion at this time. Spoke with patient's son who stated that family would like everything to be done for the patient at this time. 07/01/2024: Patient was seen and examined at bedside this morning. No acute overnight events. Patient's mental blood came back negative for DVT in the upper extremities therefore will use upper extremities again. Patient's sodium did go up to the 128 overnight and we would like to keep the sodium levels between 125-127 for today therefore started patient on D5W with around 750 and boluses and will continue running D5W at 125. Patient's WBCs are downtrending. She has not spiked any fevers. Her CELESTINO has improved with IV fluids. Patient has a Pleurx cath which we try to drain today, but seems to be clogged. Patient's skin also appears to be somewhat indurated about the Pleurx cath therefore we will reassess tomorrow and if still clogged will have IR change cath. All cultures have been negative in 24 hours. Will continue with sodium checks Q4. Exam Vital Signs Temp Pulse Resp BP Pulse Ox O2 Del Method FiO2 98.5 F 72 16 133/55 H 100 Mechanical Ventilation 45 07/01/24 07:15 07/01/24 08:30 07/01/24 08:30 07/01/24 08:30 07/01/24 08:30 06/30/24 07:01 07/01/24 08:00 Narrative Exam General: Nonverbal, ill-appearing elderly able to move all extremities, but unable to trace or follow commands Eyes: Pupils sluggish, but extraocular muscles are intact. Unable to trace Ears: No visible ear discharge Nose: No visible nasal discharge. Mouth/Throat: Dry mucous membranes, no redness, no lesions. Neck: Neck supple, no cervical lymphadenopathy. Lungs: Clear PEEWEE to auscultation and percussion, No accessory muscle use. Tracheostomy in place. PleurX cath in place with some indurated skin around. Cardio: Normal S1/S2, irregular rhythm, no murmurs, no JVD Abdomen: Soft, non-tender, no palpable masses, peristalsis present, no guarding or rebound. Extremities: Symmetrical, no significant deformities, edema on bilateral feet, non-tender, peripheral pulses presents. Skin: Large decubitus ulcer on sacral region with some purulent discharge. Neuro: Nonverbal at baseline, unable to trace, contractures noted, able to move lower extremities Objective Labs 07/01/24 04:28 07/01/24 08:25 Labs: Laboratory Results - last 24 hr 06/30/24 06/30/24 06/30/24 10:51 12:47 15:25 WBC RBC Hgb Hct MCV MCH MCHC RDW Std Deviation Plt Count Neut % (Auto) Lymph % (Auto) Foster % (Auto) Eos % (Auto) Baso % (Auto) Neut # (Auto) Lymph # (Auto) Foster # (Auto) Eos # (Auto) Baso # (Auto) Immature Gran # (Auto) Absolute Nucleated RBC Immature Gran % Nucleated RBC % PT INR Sodium 127 L 125 L 125 L Potassium 5.2 H 4.8 4.7 Chloride 88 L 87 L 87 L Carbon Dioxide 27.7 28.8 29.3 Anion Gap 11 9 9 BUN 66 H 67 H 67 H Creatinine 1.7 H 1.6 H 1.6 H Estim Creat Clear Calc 18.2 L 19.3 L 19.3 L eGFR 30 L 32 L 32 L BUN/Creatinine Ratio 39 H 42 H 42 H Glucose 183 H 182 H 182 H Calculated Osmolality 279 275 275 Lactic Acid 1.4 Calcium 7.7 L 7.6 L 7.6 L Corrected Calcium 8.8 8.7 Phosphorus 4.6 4.9 Total Bilirubin AST ALT Alkaline Phosphatase Total Protein Albumin 2.5 L 2.6 L Globulin Albumin/Globulin Ratio 06/30/24 06/30/24 06/30/24 17:30 20:45 22:20 WBC RBC Hgb Hct MCV MCH MCHC RDW Std Deviation Plt Count Neut % (Auto) Lymph % (Auto) Foster % (Auto) Eos % (Auto) Baso % (Auto) Neut # (Auto) Lymph # (Auto) Foster # (Auto) Eos # (Auto) Baso # (Auto) Immature Gran # (Auto) Absolute Nucleated RBC Immature Gran % Nucleated RBC % PT INR Sodium 125 L 128 L 126 L Potassium 4.6 4.4 3.9 D Chloride 88 L 89 L 88 L Carbon Dioxide 28.5 28.9 31.3 H Anion Gap 9 10 7 BUN 61 H 62 H 60 H Creatinine 1.6 H 1.5 H 1.4 H Estim Creat Clear Calc 19.3 L 20.6 L 22.1 L eGFR 32 L 34 L 37 L BUN/Creatinine Ratio 38 H 41 H 43 H Glucose 169 H 116 H D 110 H Calculated Osmolality 272 L 275 271 L Lactic Acid Calcium 7.7 L 8.1 L 7.9 L Corrected Calcium 9.1 Phosphorus 4.9 Total Bilirubin AST ALT Alkaline Phosphatase Total Protein Albumin 2.7 L Globulin Albumin/Globulin Ratio 07/01/24 07/01/24 07/01/24 00:20 02:12 04:28 WBC 12.5 H RBC 2.81 L Hgb 7.8 L Hct 23.2 L MCV 83 MCH 27.8 MCHC 33.6 RDW Std Deviation 47.1 H Plt Count 401 Neut % (Auto) 86 H Lymph % (Auto) 3 L Foster % (Auto) 7 Eos % (Auto) 2 Baso % (Auto) 0 Neut # (Auto) 10.7 H Lymph # (Auto) 0.4 L Foster # (Auto) 0.9 H Eos # (Auto) 0.3 Baso # (Auto) 0.0 Immature Gran # (Auto) 0.07 H Absolute Nucleated RBC 0.00 Immature Gran % 1 H Nucleated RBC % 0 PT 11.6 INR 1.1 Sodium 127 L 127 L 127 L Potassium 3.6 3.6 3.4 Chloride 87 L 89 L 89 L Carbon Dioxide 29.4 29.8 29.8 Anion Gap 11 8 8 BUN 58 H 56 H 56 H Creatinine 1.4 H 1.4 H 1.4 H Estim Creat Clear Calc 22.1 L 22.1 L 23.0 L eGFR 37 L 37 L 37 L BUN/Creatinine Ratio 41 H 40 H 40 H Glucose 107 H 98 94 Calculated Osmolality 271 L 270 L 270 L Lactic Acid Calcium 7.7 L 7.9 L 8.0 L Corrected Calcium 9.1 Phosphorus Total Bilirubin 0.4 AST 33 ALT 34 Alkaline Phosphatase 97 Total Protein 5.8 Albumin 2.6 L Globulin 3.2 Albumin/Globulin Ratio 0.8 L 07/01/24 08:25 WBC RBC Hgb Hct MCV MCH MCHC RDW Std Deviation Plt Count Neut % (Auto) Lymph % (Auto) Foster % (Auto) Eos % (Auto) Baso % (Auto) Neut # (Auto) Lymph # (Auto) Foster # (Auto) Eos # (Auto) Baso # (Auto) Immature Gran # (Auto) Absolute Nucleated RBC Immature Gran % Nucleated RBC % PT INR Sodium 128 L Potassium 3.3 L Chloride 88 L Carbon Dioxide 29.3 Anion Gap 11 BUN 54 H Creatinine 1.3 Estim Creat Clear Calc 24.7 L eGFR 41 L BUN/Creatinine Ratio 42 H Glucose 148 H D Calculated Osmolality 274 L Lactic Acid Calcium 7.7 L Corrected Calcium Phosphorus Total Bilirubin AST ALT Alkaline Phosphatase Total Protein Albumin Globulin Albumin/Globulin Ratio ABG Interpretation ABG results: 06/29/24 06/30/24 22:53 07:24 ABG pH 7.51 H ABG pCO2 42 ABG pO2 54 L* ABG HCO3 34 H ABG O2 Saturation 91 ABG Base Excess 10 H VBG pH 7.54 VBG pCO2 34 L VBG pO2 57 VBG Base Excess 6 H Quality Measures Quality Measures sepsis Current suspected stage: ruled out Possible source: pulmonary and genitourinary Blood cultures ordered: yes Antibiotic ordered: Yes Advance care planning discussed with:: patient Assessment & Plan Assessment Current Active Medications: Generic Name Dose Route Start Last Admin Trade Name Freq PRN Reason Stop Dose Admin Al Hydrox/Mg Hydrox/Simethicone 30 ml 06/30/24 02:29 Mg Hyd/Al Hyd/Irlanda (Maalox Reg) Susp 30 Ml Udc PO 07/30/24 02:28 Q4HR PRN Heartburn or Upset Stomach Albuterol/Ipratropium 3 ml 06/30/24 02:34 Albuterol/Ipratropium (Duoneb) Rt Viviana 3 Ml Nebu INH 07/30/24 02:33 Q2HR PRN SHORTNESS OF BREATH OR WHEEZE Atorvastatin Calcium 80 mg 06/30/24 21:00 06/30/24 20:37 Atorvastatin Calcium 20 Mg Tablet GT 07/30/24 20:59 80 mg HS AMARJIT Administration Calcium Carbonate 600 mg 06/30/24 16:30 07/01/24 09:45 Calcium Carbonate 600 Mg Tablet GT 07/30/24 16:29 600 mg QDAY AMARJIT Administration Desmopressin Acetate 2 mcg 06/30/24 11:55 07/01/24 04:14 Desmopressin Acetate 4 Mcg/Ml Vial IV 07/30/24 11:29 2 mcg Q8H AMARJIT Administration Dextrose 25 ml 06/30/24 03:02 Dextrose 50%-Water Inj 50 Ml Syringe IV 07/30/24 03:01 Q15MIN PRN BG 50-70 responsive npo pt Dextrose 50 ml 06/30/24 03:02 Dextrose 50%-Water Inj 50 Ml Syringe IV 07/30/24 03:01 Q15MIN PRN BG <50 OR BG <70 & pt unresponsive Glucagon 1 mg 06/30/24 03:02 Glucagon Inj 1 Mg Vial IM Q15MIN PRN BG <70, and no IV access Doxycycline Hyclate 100 mg/ 100 mls @ 100 mls/hr 06/30/24 09:00 07/01/24 09:45 Sodium Chloride IV 07/07/24 08:59 100 mls/hr BID AMARJIT Administration Piperacillin/Tazobactam/Dextrose 3.375 gm in 50 mls @ 12.5 mls/hr 06/30/24 07:30 07/01/24 05:15 Zosyn IV 07/07/24 07:29 12.5 mls/hr Q8HR AMARJIT Administration Protocol Dextrose 500 mls @ 125 mls/hr 07/01/24 08:00 D5w IV 07/01/24 11:59 .Q4H AMARJIT Insulin Human Lispro 0 unit 06/30/24 07:30 07/01/24 07:25 Insulin Lispro (Admelog) 1 Unit/0.01 Ml Unit SC 07/30/24 07:29 Not Given AC AMARJIT Protocol Lactulose 20 gm 06/30/24 03:04 Lactulose Syrup 20 Gm/30 Ml Udc PO 07/30/24 08:59 QDAY PRN Constipation Protocol Lansoprazole 30 mg 06/30/24 09:00 07/01/24 09:45 Lansoprazole 30 Mg Tab.Rap.Dr AKERS 07/30/24 08:59 30 mg QDAY AMARJIT Administration Magnesium Hydroxide 30 ml 06/30/24 02:29 Milk Of Magnesia Susp 30 Ml Udc PO 07/30/24 02:28 QDAY PRN CONSTIPATION Protocol Pharmacy Consult 1 each 06/30/24 09:00 Pharmacy Renal Dose Adjustment 1 Ea XX 07/30/24 08:59 QDAY PRN CONSULT Sodium Chloride 3 ml 06/30/24 03:27 Sodium Chloride Rt Viviana 0.9% 3 Ml Nebu INH 07/30/24 03:26 PRN PRN SOLN Plan 83-year-old female with past medical history of chronic tracheostomy with PEG tube due to multiple strokes, seizure disorder, A-fib, hypertension, type 2 diabetes mellitus, and HFpEF entheses 55 to 60% on 04/2024 was admitted to the ICU on 06/30/2024 due to hyponatremia and sepsis with anticipation of possible shock, patient was bradycardic. [employer] #History of multiple strokes #History of seizure disorder Patient nonverbal at baseline Continue atorvastatin for now CVS #History of A-fib [id number] score 7 points indicating 11.2% risk of stroke per year Has-bled score of 2 points indicating moderate risk of major bleeding Patient was on amiodarone at home but given bradycardia will hold off on amiodarone for now #Bradycardia, improving Initial EKG shows sinus bradycardia with a heart rate in the 50s Repeat EKG this morning showed a heart rate in the 60s. Patient appears to have good chronotropic response and blood pressure has been stable and heart rate has been in the 70s today Will continue to hold off on amiodarone and other rate control medications #History of hypertension Will hold off on blood pressure medications for now given likelihood of sepsis #HFpEF (55 to 60% on 04/2024) Patient's BNP was elevated at 1037 Patient appears to be hypovolemic even though there is some bilateral feet edema which could be due to venous stasis Will not therapies for now given the patient has hyponatremia Respiratory #Bilateral pneumonia #Recurrent pleural effusion Chest x-ray showed some bilateral pleural parenchymal disease Patient had a white blood cell count downtrending Has pleurax cath in place, will attempt to drain again tomorrow. Sputum cultures pending will continue with doxycycline and Zosyn for now Renal # Severe hypoosmolar hyponatremia Patient came in initially with a sodium of 115 given patient's current condition it is very difficult to assess patient's mental status Patient was started on hypertonic saline sodium went up to 123 at 7:30 AM today from 115 at midnight. Patient received around 750 mL of D5W bolus and will continue with 125 cc/h of D5W for now Continue desmopressin BMP every 4 hours Goal sodium 125-127 today Nephrology consulted #Hyperkalemia, resolved Patient came in initially with potassium of 6.5, but EKG did not show any peaked T waves. Patient was given albuterol, insulin, calcium gluconate, and Kayexalate overnight Patient's potassium improved to 4.7 #CELESTINO, improving Patient came in with creatinine of 1.8 initially from a baseline of around 0.9-1.2 Most likely prerenal in the setting of hypovolemia IV fluids Avoid nephrotoxic agents Renally dose medication Nephrology consulted #Hypocalcemia, resolved Patient's calcium was 7.7 and corrected 9.1 today Patient received calcium gluconate 1 g today Discontinue patient's calcium carbonate #Lactic acidosis, resolved Heme # Normocytic normochromic anemia Patient came in with hemoglobin 6.6 from her baseline of around 8-8.7. Unclear etiology if patient is bleeding, but patient does have a decubitus ulcer which could be the cause. Other etiologies would include anemia of chronic disease Patient got 1 PRBC transfused and hemoglobin went up to 8.2. Today hemoglobin is 7.8 Will continue to monitor ID #Sepsis #UTI #Pneumonia #Decubitus ulcer Patient initially came in with elevated lactic acid along with leukocytosis and endorgan damage. Patient on chest x-ray does have some pleural and parenchymal disease which could have some superimposed pneumonia. Patient has well had a positive UA and has a sacral decubitus ulcer which seems to be having purulent discharge. These could be contributing to the patient's possible sepsis Blood, urine, and ET secretions cultures pending Blood cultures in the past 24 hours Continue Zosyn and doxycycline for now Endo #DM2 Patient's latest A1c was 6.3% ISS GI #Constipation, resolved Rectal tube in place #PEG tube feeding Lansoprazole for GI prophylaxis Hospital Maintenance: Diet: PEG tube, tube feeds DVT ppx: heparin sc GI ppx: lansoprazole IV lines: PIV Peace: peace Code status: DNR Dispo: ICU for hyponatremia Case disclosed with Attending Dr. Stella Brunner PGY1
[2024-07-01] MEDS: DEXTROSE 5%-WATER 500 ML 125 ML IV (09:50)
--- NOTE | 2024-07-01 11:12 | ESPR_ITS ---
Documentation for date of: 07/01/24 Subjective Subjective Interval history: Ms. 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 Patient nonverbal. HPI collected from chart review. Evidently she was on ANTIBIOTIC for UTI. She presented with BP 134/64, HR 46, RR 32, afebrile, on mechanical ventilation. Labs showed sodium 115, potassium 6.5, serum osmole 259, chloride 77, BUN/CR 76/1.8, GLUCOSE 177, lactic acid 2.2, BNP 1037, H/H 6.9/19.6. ABG showed pH 7.51, PO254, bicarb 30.9. UA showed WBC 129, positive LE and rare bacteria. EKG showed sinus bradycardia without T wave abnormalities. Unable to assess mentation or baseline secondary to AMS which is baseline for her. In the ED, her initial vitals were blood pressure of 134/64, pulse 46, respiratory rate 32, temperature 98.0, saturating well on mechanical ventilator with 43% FiO2 which is her baseline at the subacute. Lab results are significant for WBC of 16.7, hemoglobin/hematocrit of 6.6/19.6, sodium 115, potassium 6.5, chloride 77, BUN/creatinine 76/1.8, glucose 177, osmolality 259, lactic acid 2.2, BNP 1037, procalcitonin 0.96. ABG was obtained which shows pH of 7.51, PO2 of 54, bicarb from CHEM panel was 30.9. Urinalysis shows 121 WBCs, positive leukocyte esterase and rare bacteria. As per patient's RN, the Hector catheter appears recently exchanged. Initially she was given 2 L NS boluses and started on 3% hypertonic. Sodium corrected from 123 to 127. Currently 3% hypertonic was discontinued. Potassium 5.2. Also given KAYEXALATE and, ALBUTEROL and CALCIUM GLUCONATE, potassium improved to 5.2. Patient currently in ICU. Nephrology was consulted for management of CELESTINO. Recommendations as listed below. 07/01/2024 patient currently seen in ICU. Remains nonverbal. Opens her eyes but do not track. Overnight no acute events. Blood pressure 138/60, heart rate 72. WBC 12.5, hemoglobin 7.8, platelets 401.Sodium 126, potassium 3.5, BUN 46, creatinine 1.2, glucose 144, calcium 9.5, LFTs normal, albumin 2.6. Patient currently on desmopressin and D5W. Noted to have good urine output. Review of Systems Review of Systems ROS Unobtainable: unobtainable due to medical condition Exam Vital Signs Temp Pulse Resp BP Pulse Ox O2 Del Method FiO2 36.9 C 72 16 133/55 H 100 Mechanical Ventilation 45 07/01/24 07:15 07/01/24 08:30 07/01/24 08:30 07/01/24 08:30 07/01/24 08:30 06/30/24 07:01 07/01/24 08:00 Narrative Exam GENERAL APPEARANCE: Elderly frail lady currently seen in ICU Status post trach and on vent NECK: Neck supple, no JVD or bruit CARDIOVASCULAR: Heart regular, no murmurs LUNGS/CHEST: Bilateral rhonchi noted ABDOMEN: Soft, nontender, nondistended. No masses. Normal bowel sounds. ++ Feeding tube EXTREMITIES: 2+ edema in the lower extremities SKIN: Dry skin MUSCULOSKELETAL: Patient seems to be in bed with contractures NEUROLOGICAL : Barely arousable Objective Labs 07/01/24 04:28 07/01/24 20:16 Labs: Laboratory Results - last 24 hr 06/30/24 06/30/24 06/30/24 10:51 12:47 15:25 WBC RBC Hgb Hct MCV MCH MCHC RDW Std Deviation Plt Count Neut % (Auto) Lymph % (Auto) Blount % (Auto) Eos % (Auto) Baso % (Auto) Neut # (Auto) Lymph # (Auto) Blount # (Auto) Eos # (Auto) Baso # (Auto) Immature Gran # (Auto) Absolute Nucleated RBC Immature Gran % Nucleated RBC % PT INR Sodium 127 L 125 L 125 L Potassium 5.2 H 4.8 4.7 Chloride 88 L 87 L 87 L Carbon Dioxide 27.7 28.8 29.3 Anion Gap 11 9 9 BUN 66 H 67 H 67 H Creatinine 1.7 H 1.6 H 1.6 H Estim Creat Clear Calc 18.2 L 19.3 L 19.3 L eGFR 30 L 32 L 32 L BUN/Creatinine Ratio 39 H 42 H 42 H Glucose 183 H 182 H 182 H Calculated Osmolality 279 275 275 Lactic Acid 1.4 Calcium 7.7 L 7.6 L 7.6 L Corrected Calcium 8.8 8.7 Phosphorus 4.6 4.9 Total Bilirubin AST ALT Alkaline Phosphatase Total Protein Albumin 2.5 L 2.6 L Globulin Albumin/Globulin Ratio 06/30/24 06/30/24 06/30/24 17:30 20:45 22:20 WBC RBC Hgb Hct MCV MCH MCHC RDW Std Deviation Plt Count Neut % (Auto) Lymph % (Auto) Blount % (Auto) Eos % (Auto) Baso % (Auto) Neut # (Auto) Lymph # (Auto) Blount # (Auto) Eos # (Auto) Baso # (Auto) Immature Gran # (Auto) Absolute Nucleated RBC Immature Gran % Nucleated RBC % PT INR Sodium 125 L 128 L 126 L Potassium 4.6 4.4 3.9 D Chloride 88 L 89 L 88 L Carbon Dioxide 28.5 28.9 31.3 H Anion Gap 9 10 7 BUN 61 H 62 H 60 H Creatinine 1.6 H 1.5 H 1.4 H Estim Creat Clear Calc 19.3 L 20.6 L 22.1 L eGFR 32 L 34 L 37 L BUN/Creatinine Ratio 38 H 41 H 43 H Glucose 169 H 116 H D 110 H Calculated Osmolality 272 L 275 271 L Lactic Acid Calcium 7.7 L 8.1 L 7.9 L Corrected Calcium 9.1 Phosphorus 4.9 Total Bilirubin AST ALT Alkaline Phosphatase Total Protein Albumin 2.7 L Globulin Albumin/Globulin Ratio 07/01/24 07/01/24 07/01/24 00:20 02:12 04:28 WBC 12.5 H RBC 2.81 L Hgb 7.8 L Hct 23.2 L MCV 83 MCH 27.8 MCHC 33.6 RDW Std Deviation 47.1 H Plt Count 401 Neut % (Auto) 86 H Lymph % (Auto) 3 L Blount % (Auto) 7 Eos % (Auto) 2 Baso % (Auto) 0 Neut # (Auto) 10.7 H Lymph # (Auto) 0.4 L Blount # (Auto) 0.9 H Eos # (Auto) 0.3 Baso # (Auto) 0.0 Immature Gran # (Auto) 0.07 H Absolute Nucleated RBC 0.00 Immature Gran % 1 H Nucleated RBC % 0 PT 11.6 INR 1.1 Sodium 127 L 127 L 127 L Potassium 3.6 3.6 3.4 Chloride 87 L 89 L 89 L Carbon Dioxide 29.4 29.8 29.8 Anion Gap 11 8 8 BUN 58 H 56 H 56 H Creatinine 1.4 H 1.4 H 1.4 H Estim Creat Clear Calc 22.1 L 22.1 L 23.0 L eGFR 37 L 37 L 37 L BUN/Creatinine Ratio 41 H 40 H 40 H Glucose 107 H 98 94 Calculated Osmolality 271 L 270 L 270 L Lactic Acid Calcium 7.7 L 7.9 L 8.0 L Corrected Calcium 9.1 Phosphorus Total Bilirubin 0.4 AST 33 ALT 34 Alkaline Phosphatase 97 Total Protein 5.8 Albumin 2.6 L Globulin 3.2 Albumin/Globulin Ratio 0.8 L 07/01/24 08:25 WBC RBC Hgb Hct MCV MCH MCHC RDW Std Deviation Plt Count Neut % (Auto) Lymph % (Auto) Blount % (Auto) Eos % (Auto) Baso % (Auto) Neut # (Auto) Lymph # (Auto) Blount # (Auto) Eos # (Auto) Baso # (Auto) Immature Gran # (Auto) Absolute Nucleated RBC Immature Gran % Nucleated RBC % PT INR Sodium 128 L Potassium 3.3 L Chloride 88 L Carbon Dioxide 29.3 Anion Gap 11 BUN 54 H Creatinine 1.3 Estim Creat Clear Calc 24.7 L eGFR 41 L BUN/Creatinine Ratio 42 H Glucose 148 H D Calculated Osmolality 274 L Lactic Acid Calcium 7.7 L Corrected Calcium Phosphorus Total Bilirubin AST ALT Alkaline Phosphatase Total Protein Albumin Globulin Albumin/Globulin Ratio ABG Interpretation ABG results: 06/29/24 06/30/24 22:53 07:24 ABG pH 7.51 H ABG pCO2 42 ABG pO2 54 L* ABG HCO3 34 H ABG O2 Saturation 91 ABG Base Excess 10 H VBG pH 7.54 VBG pCO2 34 L VBG pO2 57 VBG Base Excess 6 H Assessment & Plan Additional Assessment & Plan Additional Plan: 83-year-old female with chronic tracheotomy and PEG tube following multiple strokes, seizure disorder, A-fib, HTN, T2DM, 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 Found to have severe hyponatremia, hyperkalemia and CELESTINO. CELESTINO, likely pre-renal Likely due to hypoperfusion from sepsis, fluid shifts, or renal vasoconstriction Previously normal renal function, presenting with CR 1.8, BUN 66, and EGFR 28. Creatinine markedly improved with fluids ? Renally dose meds, avoid overdiuresis and NEPHROTOXINS ? Daily CMP Hypotonic, hypervolemic hyponatremia--sodium 126. Currently on desmopressin. Did talk to ICU team to back off on IV D5W. Instead we can try free water flushes with close monitoring of serum sodium. Agree with continuing on desmopressin as patient seems to have good urine output to avoid overcorrection. Hypokalemia replace KCL UTI Has been on outpatient ANTIBIOTICS for UTI. UA suggest UTI. ? Continue ANTIBIOTICS per primary team. Bradycardia Sinus bradycardia on EKG. Recurrent bradycardia per chart review. Possibly related to AMIODARONE which is currently on hold. Less likely d/t hyperkalemia, no related EKG abnormalities. ? Managed by primary team Lactic acidosis, type I versus type II (resolved) Possibly in setting of sepsis versus poor clearance. ? Managed by primary team History of multiple strokes History of seizure disorder Patient nonverbal at baseline History of A-fib History of hypertension Bilateral pneumonia Acute normocytic anemia Leukocytosis Sepsis UTI Pneumonia Decubitus ulcer Concern for osteomyelitis Constipation PEG tube feeding ? Managed by ICU team. Spoke to Dr. Douglas
[2024-07-01 12:34] LABS: Anion Gap 9 (7-16); BUN/Creatinine Ratio 39 Ratio (12-20); Blood Urea Nitrogen 51 mg/dL (9-23); Calcium 7.8 mg/dL (8.3-10.6); Carbon Dioxide 29.2 mMol/L (20.0-31.0); Chloride 88 mMol/L (98-107); Creatinine (Component) 1.3 mg/dL (0.6-1.3); Estimated Creatinine Clearance 24.7 mL/min (>60); Glucose 182 mg/dL (74-106); Osmolality,Calculated 272 (275-295); Potassium 3.2 mMol/L (3.4-5.1); Sodium 126 mMol/L (136-145); eGFR 41 See Note
[2024-07-01] MEDS: HEPARIN SOD INJ 5000 UNIT/ML VIAL SC ×2 (12:42→21:26)
[2024-07-01] MEDS: POTASSIUM CHLORIDE 10% 20 MEQ/15 ML UDC GT (12:42)
[2024-07-01] MEDS: INSULIN LISPRO (AdmeLOG) 1 UNIT/0.01 ML UNIT SC ×2 (12:46→17:20)
[2024-07-01 16:32] LABS: Anion Gap 8 (7-16); BUN/Creatinine Ratio 38 Ratio (12-20); Blood Urea Nitrogen 45 mg/dL (9-23); Carbon Dioxide 28.2 mMol/L (20.0-31.0); Chloride 90 mMol/L (98-107); Creatinine (Component) 1.2 mg/dL (0.6-1.3); Estimated Creatinine Clearance 26.8 mL/min (>60); Glucose 151 mg/dL (74-106); Osmolality,Calculated 267 (275-295); Potassium 3.7 mMol/L (3.4-5.1); Sodium 126 mMol/L (136-145); eGFR 45 See Note
[2024-07-01 21:12] LABS: Anion Gap 8 (7-16); Calcium 7.9 mg/dL (8.3-10.6); Carbon Dioxide 29.7 mMol/L (20.0-31.0); Chloride 89 mMol/L (98-107); Potassium 3.5 mMol/L (3.4-5.1); Sodium 127 mMol/L (136-145)
[2024-07-01 21:16] LABS: BUN/Creatinine Ratio 38 Ratio (12-20); Blood Urea Nitrogen 46 mg/dL (9-23); Creatinine (Component) 1.2 mg/dL (0.6-1.3); Estimated Creatinine Clearance 26.8 mL/min (>60); Glucose 144 mg/dL (74-106); Osmolality,Calculated 270 (275-295); eGFR 45 See Note
[2024-07-01] MEDS: ATORVASTATIN CALCIUM 20 MG TABLET 80 MG GT (21:23)
[2024-07-02] VITALS (23 sets, daily range): BP systolic 121–137; BP diastolic 50–75; PULSE 68–84; RESP 0–32; TEMP 36.7–37.2; O2SAT 99–100; BMI 23.3
[2024-07-02 01:24] LABS: Anion Gap 7 (7-16); BUN/Creatinine Ratio 41 Ratio (12-20); Blood Urea Nitrogen 45 mg/dL (9-23); Calcium 7.8 mg/dL (8.3-10.6); Carbon Dioxide 29.9 mMol/L (20.0-31.0); Chloride 89 mMol/L (98-107); Creatinine (Component) 1.1 mg/dL (0.6-1.3); Estimated Creatinine Clearance 29.2 mL/min (>60); Glucose 150 mg/dL (74-106); Osmolality,Calculated 267 (275-295); Potassium 3.6 mMol/L (3.4-5.1); Sodium 126 mMol/L (136-145); eGFR 50 See Note
[2024-07-02] MEDS: DESMOPRESSIN ACETATE 4 MCG/ML VIAL 2 MCG IV (04:10)
[2024-07-02] MEDS: PIPER/TAZO 3.375 GM PREMIX 3.375 GM/50 ML BAG IV (05:12)
[2024-07-02 06:06] LABS: Basophils % (Auto) 0 % (0-2.5); Eosinophils # (Auto) 0.2 Thou/mm3 (0.0-0.5); Eosinophils % (Auto) 2 % (0-10); Hematocrit 24.2 % (36.0-46.0); Immature Granulocytes % (Auto) 1 % (0-0); Immature Granulocytes Auto 0.09 Thou/mm3 (0.00-0.00); Lymphocytes # (Auto) 0.5 Thou/mm3 (1.0-4.8); Lymphocytes % (Auto) 4 % (10-50); Mean Corpuscular HGB Conc 33.1 g/dl (31.0-37.0); Mean Corpuscular Hemoglobin 28.1 pg (25.0-35.0); Mean Corpuscular Volume 85 fL (80-100); Monocytes # (Auto) 0.7 Thou/mm3 (0.0-0.8); Monocytes % (Auto) 7 % (0-12); Neutrophils # (Auto) 9.2 Thou/mm3 (1.8-7.7); Neutrophils % (Auto) 86 % (37-80); Nucleated Red Blood Cell % 0 /100 WBC (0); Platelet Count 413 Thou/mm3 (140-440); RDW Standard Deviation 47.6 fL (36.4-46.3); Red Blood Count 2.85 Miln/mm3 (4.00-5.20); White Blood Count 10.7 Thou/mm3 (3.6-11.0)
[2024-07-02 06:31] LABS: Alanine Aminotransferase 32 U/L (10-49); Albumin, Serum 2.6 gm/dL (3.4-4.8); Albumin/Globulin Ratio 0.8 (1.2-2.2); Alkaline Phosphatase 101 U/L (46-116); Anion Gap 8 (7-16); Aspartate Amino Transferase 29 U/L (0-34); BUN/Creatinine Ratio 41 Ratio (12-20); Bilirubin,Total 0.5 mg/dL (0.3-1.2); Blood Urea Nitrogen 45 mg/dL (9-23); Calcium 7.7 mg/dL (8.3-10.6); Calcium (Corrected) 8.8 mg/dL (8.5-10.1); Chloride 89 mMol/L (98-107); Creatinine (Component) 1.1 mg/dL (0.6-1.3); Estimated Creatinine Clearance 29.2 mL/min (>60); Globulin 3.1 gm/dL (2.3-3.5); Glucose 145 mg/dL (74-106); Osmolality,Calculated 269 (275-295); Potassium 3.8 mMol/L (3.4-5.1); Sodium 127 mMol/L (136-145); Total Protein 5.7 gm/dL (5.7-8.2); eGFR 50 See Note
--- NOTE | 2024-07-02 06:46 | XR_ITS ---
Examination: AP chest single view Technique one AP portable semiupright chest single view Exam date and time: July 02, 2024 0708 hours Comparison July 01, 2024 INDICATIONS: History hypoxic respiratory failure, chronic recurrent pleural effusions, extensive pleural-parenchymal disease both hemithoraces FINDINGS: Stable position right Pleurx catheter Extensive bilateral parenchymal disease consistent with pneumonia and chronic infiltrate Loculated appearing right pleural disease again noted Mild prominence left ventricle Tracheostomy tube tip 8 cm above Melanie No pneumothoraces Prominent osteopenia IMPRESSION: No change in extensive bilateral pleural-parenchymal disease Tracheostomy tube tip 8 cm above Melanie
--- NOTE | 2024-07-02 07:34 | PC.NURSE ---
SCD's removed from patient per MD Redd
[2024-07-02] MEDS: LANSOPRAZOLE 30 MG TAB.RAP.DR GT (08:40)
[2024-07-02] MEDS: HEPARIN SOD INJ 5000 UNIT/ML VIAL SC ×2 (08:40→20:16)
[2024-07-02] MEDS: DOXYCYCLINE INJ 100 MG in SODIUM CHLORIDE 0.9% (POP) 100 ML IV (08:40)
--- NOTE | 2024-07-02 09:13 | PD.RESPRO ---
Documentation for date of: 07/02/24 Subjective Subjective Interval history: This is an 83-year-old female with chronic tracheotomy and PEG tube following multiple strokes, seizure disorder, A-fib, HTN, T2DM, 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 Patient nonverbal. HPI collected from chart review. Evidently she was on ANTIBIOTIC for UTI. She presented with BP 134/64, HR 46, RR 32, afebrile, on mechanical ventilation. Labs showed sodium 115, potassium 6.5, serum osmole 259, chloride 77, BUN/CR 76/1.8, GLUCOSE 177, lactic acid 2.2, BNP 1037, H/H 6.9/19.6. ABG showed pH 7.51, PO254, bicarb 30.9. UA showed WBC 129, positive LE and rare bacteria. EKG showed sinus bradycardia without T wave abnormalities. Unable to assess mentation or baseline secondary to AMS which is baseline for her. In the ED, her initial vitals were blood pressure of 134/64, pulse 46, respiratory rate 32, temperature 98.0, saturating well on mechanical ventilator with 43% FiO2 which is her baseline at the subacute. Lab results are significant for WBC of 16.7, hemoglobin/hematocrit of 6.6/19.6, sodium 115, potassium 6.5, chloride 77, BUN/creatinine 76/1.8, glucose 177, osmolality 259, lactic acid 2.2, BNP 1037, procalcitonin 0.96. ABG was obtained which shows pH of 7.51, PO2 of 54, bicarb from CHEM panel was 30.9. Urinalysis shows 121 WBCs, positive leukocyte esterase and rare bacteria. As per patient's RN, the Hector catheter appears recently exchanged. Initially she was given 2 L NS boluses and started on 3% hypertonic. Sodium corrected from 123 to 127. Currently 3% hypertonic was discontinued. Potassium 5.2. Also given KAYEXALATE and, ALBUTEROL and CALCIUM GLUCONATE, potassium improved to 5.2. Patient currently in ICU. Nephrology was consulted for management of CELESTINO. Recommendations as listed below. 07/01/2024 patient currently seen in ICU. Remains nonverbal. Opens her eyes but do not track. Overnight no acute events. Blood pressure 138/60, heart rate 72. WBC 12.5, hemoglobin 7.8, platelets 401.Sodium 126, potassium 3.5, BUN 46, creatinine 1.2, glucose 144, calcium 9.5, LFTs normal, albumin 2.6. Patient currently on desmopressin and D5W. Noted to have good urine output. 07/02/2024 examined at bedside in ICU. Remains nonverbal, opens eyes spontaneously, does not track. No overnight events. BP 134/60, HR 72. Leukocytosis resolved. Hgb stable 8.0. CR normal. Sodium 127, stable. Will discontinue DESMOPRESSIN and D5W. Urine output normal. Exam Vital Signs Temp Pulse Resp BP Pulse Ox O2 Del Method FiO2 98.5 F 73 11 L 134/60 H 100 Mechanical Ventilation 45 07/02/24 07:00 07/02/24 07:00 07/02/24 07:00 07/02/24 07:00 07/02/24 07:00 06/30/24 07:01 07/02/24 06:10 Narrative Exam GENERAL APPEARANCE: Elderly frail lady currently seen in ICU Status post trach and on vent NECK: Neck supple, no JVD or bruit CARDIOVASCULAR: Heart regular, no murmurs LUNGS/CHEST: Bilateral rhonchi noted ABDOMEN: Soft, nontender, nondistended. No masses. Normal bowel sounds. ++ Feeding tube EXTREMITIES: 2+ edema in the lower extremities SKIN: Dry skin MUSCULOSKELETAL: Patient seems to be in bed with contractures NEUROLOGICAL : Barely arousable Objective Labs 07/03/24 04:41 07/03/24 04:41 Labs: Laboratory Results - last 24 hr 07/01/24 07/01/24 07/01/24 08:25 11:58 15:52 WBC RBC Hgb Hct MCV MCH MCHC RDW Std Deviation Plt Count Neut % (Auto) Lymph % (Auto) [place] % (Auto) Eos % (Auto) Baso % (Auto) Neut # (Auto) Lymph # (Auto) [place] # (Auto) Eos # (Auto) Baso # (Auto) Immature Gran # (Auto) Absolute Nucleated RBC Immature Gran % Nucleated RBC % Sodium 128 L 126 L 126 L Potassium 3.3 L 3.2 L 3.7 D Chloride 88 L 88 L 90 L Carbon Dioxide 29.3 29.2 28.2 Anion Gap 11 9 8 BUN 54 H 51 H 45 H Creatinine 1.3 1.3 1.2 Estim Creat Clear Calc 24.7 L 24.7 L 26.8 L eGFR 41 L 41 L 45 L BUN/Creatinine Ratio 42 H 39 H 38 H Glucose 148 H D 182 H 151 H Calculated Osmolality 274 L 272 L 267 L Calcium 7.7 L 7.8 L 8.0 L Corrected Calcium Total Bilirubin AST ALT Alkaline Phosphatase Total Protein Albumin Globulin Albumin/Globulin Ratio 07/01/24 07/02/24 07/02/24 20:16 00:25 05:19 WBC 10.7 RBC 2.85 L Hgb 8.0 L Hct 24.2 L MCV 85 MCH 28.1 MCHC 33.1 RDW Std Deviation 47.6 H Plt Count 413 Neut % (Auto) 86 H Lymph % (Auto) 4 L [place] % (Auto) 7 Eos % (Auto) 2 Baso % (Auto) 0 Neut # (Auto) 9.2 H Lymph # (Auto) 0.5 L [place] # (Auto) 0.7 Eos # (Auto) 0.2 Baso # (Auto) 0.0 Immature Gran # (Auto) 0.09 H Absolute Nucleated RBC 0.00 Immature Gran % 1 H Nucleated RBC % 0 Sodium 127 L 126 L 127 L Potassium 3.5 3.6 3.8 Chloride 89 L 89 L 89 L Carbon Dioxide 29.7 29.9 30.0 Anion Gap 8 7 8 BUN 46 H 45 H 45 H Creatinine 1.2 1.1 1.1 Estim Creat Clear Calc 26.8 L 29.2 L 29.2 L eGFR 45 L 50 L 50 L BUN/Creatinine Ratio 38 H 41 H 41 H Glucose 144 H 150 H 145 H Calculated Osmolality 270 L 267 L 269 L Calcium 7.9 L 7.8 L 7.7 L Corrected Calcium 8.8 Total Bilirubin 0.5 AST 29 ALT 32 Alkaline Phosphatase 101 Total Protein 5.7 Albumin 2.6 L Globulin 3.1 Albumin/Globulin Ratio 0.8 L ABG Interpretation ABG results: 06/29/24 06/30/24 22:53 07:24 ABG pH 7.51 H ABG pCO2 42 ABG pO2 54 L* ABG HCO3 34 H ABG O2 Saturation 91 ABG Base Excess 10 H VBG pH 7.54 VBG pCO2 34 L VBG pO2 57 VBG Base Excess 6 H Quality Measures Quality Measures sepsis Current suspected stage: ruled out Possible source: pulmonary and genitourinary Blood cultures ordered: yes Antibiotic ordered: Yes Advance care planning discussed with:: patient Assessment & Plan Assessment Current Active Medications: Generic Name Dose Route Start Last Admin Trade Name Freq PRN Reason Stop Dose Admin Al Hydrox/Mg Hydrox/Simethicone 30 ml 06/30/24 02:29 Mg Hyd/Al Hyd/[place] (Maalox Reg) Susp 30 Ml Udc PO 07/30/24 02:28 Q4HR PRN Heartburn or Upset Stomach Albuterol/Ipratropium 3 ml 06/30/24 02:34 Albuterol/Ipratropium (Duoneb) Rt Viviana 3 Ml Nebu INH 07/30/24 02:33 Q2HR PRN SHORTNESS OF BREATH OR WHEEZE Atorvastatin Calcium 80 mg 06/30/24 21:00 07/01/24 21:23 Atorvastatin Calcium 20 Mg Tablet GT 07/30/24 20:59 80 mg HS AMARJIT Administration Desmopressin Acetate 2 mcg 06/30/24 11:55 07/02/24 04:10 Desmopressin Acetate 4 Mcg/Ml Vial IV 07/30/24 11:29 2 mcg Q8H AMARJIT Administration Dextrose 25 ml 06/30/24 03:02 Dextrose 50%-Water Inj 50 Ml Syringe IV 07/30/24 03:01 Q15MIN PRN BG 50-70 responsive npo pt Dextrose 50 ml 06/30/24 03:02 Dextrose 50%-Water Inj 50 Ml Syringe IV 07/30/24 03:01 Q15MIN PRN BG <50 OR BG <70 & pt unresponsive Glucagon 1 mg 06/30/24 03:02 Glucagon Inj 1 Mg Vial IM Q15MIN PRN BG <70, and no IV access Heparin Sodium (Porcine) 5,000 unit 07/01/24 11:30 07/02/24 08:40 Heparin Sod Inj 5000 Unit/Ml Vial SC 07/15/24 11:29 5,000 unit Q12HR AMARJIT Administration Doxycycline Hyclate 100 mg/ 100 mls @ 100 mls/hr 06/30/24 09:00 07/02/24 08:40 Sodium Chloride IV 07/07/24 08:59 100 mls/hr BID AMARJIT Administration Piperacillin/Tazobactam/Dextrose 3.375 gm in 50 mls @ 12.5 mls/hr 06/30/24 07:30 07/02/24 05:12 Zosyn IV 07/07/24 07:29 12.5 mls/hr Q8HR AMARJIT Administration Protocol Insulin Human Lispro 0 unit 06/30/24 07:30 07/02/24 07:30 Insulin Lispro (Admelog) 1 Unit/0.01 Ml Unit SC 07/30/24 07:29 Not Given AC AMARJIT Protocol Lactulose 20 gm 06/30/24 03:04 Lactulose Syrup 20 Gm/30 Ml Udc PO 07/30/24 08:59 QDAY PRN Constipation Protocol Lansoprazole 30 mg 06/30/24 09:00 07/02/24 08:40 Lansoprazole 30 Mg Tab.Rap.Dr AKERS 07/30/24 08:59 30 mg QDAY AMARJIT Administration Magnesium Hydroxide 30 ml 06/30/24 02:29 Milk Of Magnesia Susp 30 Ml Udc PO 07/30/24 02:28 QDAY PRN CONSTIPATION Protocol Pharmacy Consult 1 each 06/30/24 09:00 Pharmacy Renal Dose Adjustment 1 Ea XX 07/30/24 08:59 QDAY PRN CONSULT Sodium Chloride 3 ml 06/30/24 03:27 Sodium Chloride Rt Viviana 0.9% 3 Ml Nebu INH 07/30/24 03:26 PRN PRN SOLN Plan 83-year-old female with chronic tracheotomy and PEG tube following multiple strokes, seizure disorder, A-fib, HTN, T2DM, 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 Found to have severe hyponatremia, hyperkalemia and CELESTINO. CELESTINO, likely pre-renal (resolved) Likely due to hypoperfusion from sepsis, fluid shifts, or renal vasoconstriction Previously normal renal function, presenting with CR 1.8, BUN 66, and EGFR 28. Creatinine markedly improved with fluids. ? Renally dose meds, avoid overdiuresis and NEPHROTOXINS ? Daily CMP Hypotonic, hypervolemic hyponatremia Sodium stable at 127 today. ? Did talk to ICU team to back off on IV D5W. Instead we can try free water flushes with close monitoring of serum sodium. ? Discontinue DESMOPRESSIN for now. ? Continue soium checks Hypokalemia replace KCL UTI Has been on outpatient ANTIBIOTICS for UTI. UA suggest UTI. ? Continue ANTIBIOTICS per primary team. Bradycardia Sinus bradycardia on EKG. Recurrent bradycardia per chart review. Possibly related to AMIODARONE which is currently on hold. Less likely d/t hyperkalemia, no related EKG abnormalities. ? Managed by primary team Lactic acidosis, type I versus type II (resolved) Possibly in setting of sepsis versus poor clearance. ? Managed by primary team History of multiple strokes History of seizure disorder Patient nonverbal at baseline History of A-fib History of hypertension Bilateral pneumonia Acute normocytic anemia Leukocytosis Sepsis UTI Pneumonia Decubitus ulcer Concern for osteomyelitis Constipation PEG tube feeding ? Managed by ICU team. Spoke to Dr. Douglas Patient case was discussed with attending, Dr. Babin. Ed Solorio, PGYI Attending Provider Attestation/Addendum Patient seen and examined with resident physician Dr. Ward. Note reviewed, agree with findings and recommendations. Sodium seems to be stable. Discontinue desmopressin and D5W. Spoke to ICU team.
--- NOTE | 2024-07-02 09:23 | PC.SS ---
Addendum entered by Mignon Rojas 07/02/24 09:27: rounding note: Patient is not on any pressors. On i.v. antibiotics. Rectal tube in place. Vent/trache/peg Original Note: -Patient is a resident of our subacute facility under the care of Dr. Hernandez. Patient is on vent/trache/peg. Patient's son, Rashel, is the medical decision maker. Patient and family are from [facility]. Per son, patient has only been at our subacute for a few months now. Patient is non verbal and bed bound. Patient was recently admitted and discharged back to subacute end of May. Patient admitted for Bradycardia. Patient's code status recently changed on last admission to DNR. Medical decision maker: Rashel, son, [phone] D/c plan: remains to return to our subacute
--- NOTE | 2024-07-02 10:12 | PC.NURSE ---
Hand off given to ELIANA Acuna at this time
--- NOTE | 2024-07-02 10:23 | PD.RESPRO ---
Documentation for date of: 07/02/24 Subjective Subjective Interval history: Patient is a 83 years old female, 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 Patient is nonverbal at baseline, HPI completed through chart review. As per ED note, patient was receiving antibiotics for UTI. In the ED, her initial vitals were blood pressure of 134/64, pulse 46, respiratory rate 32, temperature 98.0, saturating well on mechanical ventilator with 43% FiO2 which is her baseline at the subacute. Lab results are significant for WBC of 16.7, hemoglobin/hematocrit of 6.6/19.6, sodium 115, potassium 6.5, chloride 77, BUN/creatinine 76/1.8, glucose 177, osmolality 259, lactic acid 2.2, BNP 1037, procalcitonin 0.96. ABG was obtained which shows pH of 7.51, PO2 of 54, bicarb from CHEM panel was 30.9. Urinalysis shows 121 WBCs, positive leukocyte esterase and rare bacteria. As per patient's RN, the Peace catheter appears recently exchanged. Patient received 2 L normal saline bolus, 2 g magnesium sulfate IV, Zosyn, doxycycline. She was also started on hypertonic saline. 06/30/2024: Patient was seen and examined at bedside this morning. Patient is nonverbal at baseline. Patient sodium corrected to 123 at 7:30 AM today from 115 at midnight. At this time patient's hypertonic saline was discontinued and patient was placed on desmopressin. Patient potassium also went down to 4.8 throughout the day. Will plan to give patient 250 mL of desmopressin over 2 hours as repeat sodium checked came back at 127. Goal sodium correction today would be in the 122-123 until midnight. Patient's MAP was below 65, but blood pressure cuff was on legs that patient has bilateral DVTs as per subacute. Patient was fluid responsive on Cheetah therefore gave some gentle IV fluids at this time as patient's MAP improved without any intervention at this time. Patient has been having multiple bowel movements today therefore rectal tube was placed to decrease risk of infection and patient's decubitus ulcer. Ordered ultrasound of bilateral upper extremities to assess pain thrombosis and ordered lactic acid to see if patient's perfusion at this time. Spoke with patient's son who stated that family would like everything to be done for the patient at this time. 07/01/2024: Patient was seen and examined at bedside this morning. No acute overnight events. Patient's mental blood came back negative for DVT in the upper extremities therefore will use upper extremities again. Patient's sodium did go up to the 128 overnight and we would like to keep the sodium levels between 125-127 for today therefore started patient on D5W with around 750 and boluses and will continue running D5W at 125. Patient's WBCs are downtrending. She has not spiked any fevers. Her CELESTINO has improved with IV fluids. Patient has a Pleurx cath which we try to drain today, but seems to be clogged. Patient's skin also appears to be somewhat indurated about the Pleurx cath therefore we will reassess tomorrow and if still clogged will have IR change cath. All cultures have been negative in 24 hours. Will continue with sodium checks Q4. 07/02/2024 patient was seen and evaluated at bedside this morning. No acute overnight events. Patient sodium today in the morning was 127 which is progressing back to her baseline. Try to drain Pleurx catheter again today, but was futile as it likely is clogged. Will order IR ultrasound-guided thoracentesis and removal of Pleurx cath at this time as it seems to be loculated fluid and placing in a Pleurx catheter at this time would not be beneficial. Switch patient's antibiotics from Zosyn and doxycycline to Levaquin. At this time patient is stable enough to be downgraded to a medical floor sign signed to team B. Exam Vital Signs Temp Pulse Resp BP Pulse Ox O2 Del Method FiO2 98.5 F 80 26 H 131/65 H 100 Mechanical Ventilation 45 07/02/24 07:00 07/02/24 10:00 07/02/24 10:00 07/02/24 10:00 07/02/24 10:00 06/30/24 07:01 07/02/24 08:00 Narrative Exam General: Nonverbal, ill-appearing elderly able to move all extremities, but unable to trace or follow commands Eyes: Pupils sluggish, but extraocular muscles are intact. Unable to trace Ears: No visible ear discharge Nose: No visible nasal discharge. Mouth/Throat: Dry mucous membranes, no redness, no lesions. Neck: Neck supple, no cervical lymphadenopathy. Lungs: Clear PEEWEE to auscultation and percussion, No accessory muscle use. Tracheostomy in place. PleurX cath in place with some indurated skin around. Cardio: Normal S1/S2, irregular rhythm, no murmurs, no JVD Abdomen: Soft, non-tender, no palpable masses, peristalsis present, no guarding or rebound. Extremities: Symmetrical, no significant deformities, edema on bilateral feet, non-tender, peripheral pulses presents. Skin: Large decubitus ulcer on sacral region with some purulent discharge. There is a suture in the right mid back which was removed today. Neuro: Nonverbal at baseline, unable to trace, contractures noted, able to move lower extremities Objective Labs 07/05/24 11:00 07/05/24 04:37 Labs: Laboratory Results - last 24 hr 07/01/24 07/01/24 07/01/24 11:58 15:52 20:16 WBC RBC Hgb Hct MCV MCH MCHC RDW Std Deviation Plt Count Neut % (Auto) Lymph % (Auto) [place] % (Auto) Eos % (Auto) Baso % (Auto) Neut # (Auto) Lymph # (Auto) [place] # (Auto) Eos # (Auto) Baso # (Auto) Immature Gran # (Auto) Absolute Nucleated RBC Immature Gran % Nucleated RBC % Sodium 126 L 126 L 127 L Potassium 3.2 L 3.7 D 3.5 Chloride 88 L 90 L 89 L Carbon Dioxide 29.2 28.2 29.7 Anion Gap 9 8 8 BUN 51 H 45 H 46 H Creatinine 1.3 1.2 1.2 Estim Creat Clear Calc 24.7 L 26.8 L 26.8 L eGFR 41 L 45 L 45 L BUN/Creatinine Ratio 39 H 38 H 38 H Glucose 182 H 151 H 144 H Calculated Osmolality 272 L 267 L 270 L Calcium 7.8 L 8.0 L 7.9 L Corrected Calcium Total Bilirubin AST ALT Alkaline Phosphatase Total Protein Albumin Globulin Albumin/Globulin Ratio 07/02/24 07/02/24 00:25 05:19 WBC 10.7 RBC 2.85 L Hgb 8.0 L Hct 24.2 L MCV 85 MCH 28.1 MCHC 33.1 RDW Std Deviation 47.6 H Plt Count 413 Neut % (Auto) 86 H Lymph % (Auto) 4 L [place] % (Auto) 7 Eos % (Auto) 2 Baso % (Auto) 0 Neut # (Auto) 9.2 H Lymph # (Auto) 0.5 L [place] # (Auto) 0.7 Eos # (Auto) 0.2 Baso # (Auto) 0.0 Immature Gran # (Auto) 0.09 H Absolute Nucleated RBC 0.00 Immature Gran % 1 H Nucleated RBC % 0 Sodium 126 L 127 L Potassium 3.6 3.8 Chloride 89 L 89 L Carbon Dioxide 29.9 30.0 Anion Gap 7 8 BUN 45 H 45 H Creatinine 1.1 1.1 Estim Creat Clear Calc 29.2 L 29.2 L eGFR 50 L 50 L BUN/Creatinine Ratio 41 H 41 H Glucose 150 H 145 H Calculated Osmolality 267 L 269 L Calcium 7.8 L 7.7 L Corrected Calcium 8.8 Total Bilirubin 0.5 AST 29 ALT 32 Alkaline Phosphatase 101 Total Protein 5.7 Albumin 2.6 L Globulin 3.1 Albumin/Globulin Ratio 0.8 L ABG Interpretation ABG results: 06/29/24 06/30/24 22:53 07:24 ABG pH 7.51 H ABG pCO2 42 ABG pO2 54 L* ABG HCO3 34 H ABG O2 Saturation 91 ABG Base Excess 10 H VBG pH 7.54 VBG pCO2 34 L VBG pO2 57 VBG Base Excess 6 H Quality Measures Quality Measures sepsis Current suspected stage: ruled out Possible source: pulmonary and genitourinary Blood cultures ordered: yes Antibiotic ordered: Yes Advance care planning discussed with:: patient Assessment & Plan Assessment Current Active Medications: Generic Name Dose Route Start Last Admin Trade Name Freq PRN Reason Stop Dose Admin Al Hydrox/Mg Hydrox/Simethicone 30 ml 06/30/24 02:29 Mg Hyd/Al Hyd/[place] (Maalox Reg) Susp 30 Ml Udc PO 07/30/24 02:28 Q4HR PRN Heartburn or Upset Stomach Albuterol/Ipratropium 3 ml 06/30/24 02:34 Albuterol/Ipratropium (Duoneb) Rt Viviana 3 Ml Nebu INH 07/30/24 02:33 Q2HR PRN SHORTNESS OF BREATH OR WHEEZE Atorvastatin Calcium 80 mg 06/30/24 21:00 07/01/24 21:23 Atorvastatin Calcium 20 Mg Tablet GT 07/30/24 20:59 80 mg HS AMARJIT Administration Dextrose 25 ml 06/30/24 03:02 Dextrose 50%-Water Inj 50 Ml Syringe IV 07/30/24 03:01 Q15MIN PRN BG 50-70 responsive npo pt Dextrose 50 ml 06/30/24 03:02 Dextrose 50%-Water Inj 50 Ml Syringe IV 07/30/24 03:01 Q15MIN PRN BG <50 OR BG <70 & pt unresponsive Glucagon 1 mg 06/30/24 03:02 Glucagon Inj 1 Mg Vial IM Q15MIN PRN BG <70, and no IV access Heparin Sodium (Porcine) 5,000 unit 07/01/24 11:30 07/02/24 08:40 Heparin Sod Inj 5000 Unit/Ml Vial SC 07/15/24 11:29 5,000 unit Q12HR AMARJIT Administration Insulin Human Lispro 0 unit 06/30/24 07:30 07/02/24 07:30 Insulin Lispro (Admelog) 1 Unit/0.01 Ml Unit SC 07/30/24 07:29 Not Given AC AMARJIT Protocol Lactulose 20 gm 06/30/24 03:04 Lactulose Syrup 20 Gm/30 Ml Udc PO 07/30/24 08:59 QDAY PRN Constipation Protocol Lansoprazole 30 mg 06/30/24 09:00 07/02/24 08:40 Lansoprazole 30 Mg Tab.Rap. GT 07/30/24 08:59 30 mg QDAY AMARJIT Administration Levofloxacin 250 mg 07/03/24 09:00 Levofloxacin 250 Mg Tablet GT 07/06/24 08:59 QDAY AMARJIT Magnesium Hydroxide 30 ml 06/30/24 02:29 Milk Of Magnesia Susp 30 Ml Udc PO 07/30/24 02:28 QDAY PRN CONSTIPATION Protocol Pharmacy Consult 1 each 06/30/24 09:00 Pharmacy Renal Dose Adjustment 1 Ea XX 07/30/24 08:59 QDAY PRN CONSULT Sodium Chloride 3 ml 06/30/24 03:27 Sodium Chloride Rt Viviana 0.9% 3 Ml Nebu INH 07/30/24 03:26 PRN PRN SOLN Plan 83-year-old female with past medical history of chronic tracheostomy with PEG tube due to multiple strokes, seizure disorder, A-fib, hypertension, type 2 diabetes mellitus, and HFpEF entheses 55 to 60% on 04/2024 was admitted to the ICU on 06/30/2024 due to hyponatremia and sepsis with anticipation of possible shock, patient was bradycardic. 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 Patient appears to have good chronotropic response and blood pressure has been stable and heart rate has been in the 70s today Will continue to hold off on amiodarone and other rate control medications #History of hypertension Will hold off on blood pressure medications for now given likelihood of sepsis #HFpEF (55 to 60% on 04/2024) Patient's BNP was elevated at 1037 Patient appears to be hypovolemic even though there is some bilateral feet edema which could be due to venous stasis Will not dieurese for now given the patient has hyponatremia and appears euvolemic Respiratory #Bilateral pneumonia #Recurrent pleural effusion Chest x-ray showed some bilateral pleural parenchymal disease Patient had a white blood cell count downtrending Has pleurax cath in place, will attempt to drain again tomorrow. Will have IR ultrasound-guided thoracentesis to drain fluid today and take Pleurx cath out at this time given that it most likely will not be beneficial given that fluid appears to be loculated. Started Levaquin Renal # Severe hypoosmolar hyponatremia Patient came in initially with a sodium of 115 given patient's current condition it is very difficult to assess patient's mental status Disconitnue desmopressin and d5w Nephrology consulted #Hyperkalemia, resolved #CELESTINO, resolved Patient came in with creatinine of 1.8 initially from a baseline of around 0.9-1.2 Most likely prerenal in the setting of hypovolemia Avoid nephrotoxic agents Renally dose medication Nephrology consulted #Hypocalcemia, resolved #Lactic acidosis, resolved Heme # Normocytic normochromic anemia Patient came in with hemoglobin 6.6 from her baseline of around 8-8.7. Unclear etiology if patient is bleeding, but patient does have a decubitus ulcer which could be the cause. Other etiologies would include anemia of chronic disease Patient got 1 PRBC transfused and hemoglobin went up to 8.2. Today hemoglobin is 8 Will continue to monitor ID #Sepsis #UTI #Pneumonia #Decubitus ulcer Patient initially came in with elevated lactic acid along with leukocytosis and endorgan damage. Patient on chest x-ray does have some pleural and parenchymal disease which could have some superimposed pneumonia. Patient has well had a positive UA and has a sacral decubitus ulcer which seems to be having purulent discharge. These could be contributing to the patient's possible sepsis Blood, urine, and ET secretions cultures pending Blood cultures negative Discontinue Zosyn and doxycycline Started Levaquin 500 mg x 1 today and 250 mg daily for 4 days. Endo #DM2 Patient's latest A1c was 6.3% ISS GI #Constipation, resolved Rectal tube in place #PEG tube feeding Lansoprazole for GI prophylaxis Hospital Maintenance: Diet: PEG tube, tube feeds DVT ppx: heparin sc GI ppx: lansoprazole IV lines: PIV Peace: peace Rectal tube Code status: DNR Dispo: ICU for hyponatremia Case disclosed with Attending Dr. Stella Brunner PGY1 Attending Provider Attestation/Addendum Patient seen and examined with above resident, Freddy Brunner MD. I agree with the findings, assessment, and plan of care as documented except for any differences below. Patient back to baseline sodium of 127. Will coordinate with nephrology for further long-term management of her chronic hyponatremia now. Acute phase has been resolved with slow rise to prevent pontine myelinolysis syndrome. Patient appears to be at her baseline neurologic function. Gas exchange remains unchanged. Continues to tolerate tube feeds. Patient will be placed on empiric antibiotics with Levaquin for adequate coverage for potential sources of urinary tract, skin, and pulmonary. She remains on appropriate prophylaxis. No requirement for additional blood products at this point. The Pleurx catheter is not draining despite multiple attempts. Will request IR for removal. She does have effusion that was likely loculated and not partaking in any significant compression of abutting parenchyma leading to reduced gas exchange. I also doubt it is currently infected at this point. Patient's family has not been at bedside for us to discuss ongoing plan of care. However, she remains stable and can be transferred to [facility] for ongoing management prior to returning to her subacute/SNF facility. Total critical care time: I personally spent 35 minutes for review of physiologic parameters, directing plan of care throughout the day, and coordination of care with other subspecialists. This is exclusive of time spent teaching housestaff or performing any separate billable procedures. Patient remains at high risk for further morbidity and mortality warranting close monitoring and care only available in the intensive care unit. Critical care services provided for acute on chronic severe hyponatremia and sepsis secondary to healthcare associated pneumonia.
--- NOTE | 2024-07-02 11:06 | ESPR_ITS ---
Documentation for date of: 07/02/24 Subjective Subjective Interval history: Ms. Guaman is a 83-year-old female patient with past medical history of multiple CVA, seizure disorder, atrial fibrillation, hypertension, type 2 diabetes mellitus, nonverbal status post tracheostomy and PEG tube placement who presented to [facility] emergency department on 06/30/2024 from subacute with chief complaint of bradycardia. Patient's history obtained from chart review, patient is nonverbal at baseline, patient was started on antibiotics for urinary tract infection, patient's sodium was noted to be 115 on presentation, was given hypertonic saline. Patient sodium overcorrected to 123 in the morning and patient was admitted to intensive care unit for further management. Patient was started on D5W, with goal sodium correction of 122?123, patient's mean arterial pressure was below 65, nephrology was consulted.Patient was given D5W and IV desmopressin in ICU to correct overcorrection of sodium, patient was started on IV antibiotics Zosyn and doxycycline which was eventually switched to levofloxacin for patient's underlying pneumonia and UTI. Patient has complicated parapneumonic effusion, does have Pleurx catheter, unable to drain fluid from Pleurx catheter. ICU team ordered ultrasound-guided thoracentesis to be performed by interventional radiology. Patient otherwise is fairly stable, sodium is stable at 127, nephrology is following closely patient is on IV levofloxacin for antibiotic coverage and is scheduled for ultrasound-guided thoracentesis in a.m. Exam Vital Signs Temp Pulse Resp BP Pulse Ox O2 Del Method FiO2 98.5 F 80 26 H 131/65 H 100 Mechanical Ventilation 45 07/02/24 07:00 07/02/24 10:00 07/02/24 10:00 07/02/24 10:00 07/02/24 10:00 06/30/24 07:01 07/02/24 08:00 Narrative Exam General: Nonverbal, ill-appearing elderly able to move all extremities, but unable to trace or follow commands Eyes: Pupils sluggish, but extraocular muscles are intact. Unable to trace Ears: No visible ear discharge Nose: No visible nasal discharge. Mouth/Throat: Dry mucous membranes, no redness, no lesions. Neck: Neck supple, no cervical lymphadenopathy. Lungs: Clear PEEWEE to auscultation and percussion, No accessory muscle use. Tracheostomy in place. PleurX cath in place with some indurated skin around. Cardio: Normal S1/S2, irregular rhythm, no murmurs, no JVD Abdomen: Soft, non-tender, no palpable masses, peristalsis present, no guarding or rebound. Extremities: Symmetrical, no significant deformities, edema on bilateral feet, non-tender, peripheral pulses presents. Skin: Large decubitus ulcer on sacral region with some purulent discharge. There is a suture in the right mid back which was removed today. Neuro: Nonverbal at baseline, unable to trace, contractures noted, able to move lower extremities Objective Labs 07/03/24 04:41 07/03/24 04:41 Labs: Laboratory Results - last 24 hr 07/01/24 07/01/24 07/01/24 11:58 15:52 20:16 WBC RBC Hgb Hct MCV MCH MCHC RDW Std Deviation Plt Count Neut % (Auto) Lymph % (Auto) [place] % (Auto) Eos % (Auto) Baso % (Auto) Neut # (Auto) Lymph # (Auto) [place] # (Auto) Eos # (Auto) Baso # (Auto) Immature Gran # (Auto) Absolute Nucleated RBC Immature Gran % Nucleated RBC % Sodium 126 L 126 L 127 L Potassium 3.2 L 3.7 D 3.5 Chloride 88 L 90 L 89 L Carbon Dioxide 29.2 28.2 29.7 Anion Gap 9 8 8 BUN 51 H 45 H 46 H Creatinine 1.3 1.2 1.2 Estim Creat Clear Calc 24.7 L 26.8 L 26.8 L eGFR 41 L 45 L 45 L BUN/Creatinine Ratio 39 H 38 H 38 H Glucose 182 H 151 H 144 H Calculated Osmolality 272 L 267 L 270 L Calcium 7.8 L 8.0 L 7.9 L Corrected Calcium Total Bilirubin AST ALT Alkaline Phosphatase Total Protein Albumin Globulin Albumin/Globulin Ratio 07/02/24 07/02/24 00:25 05:19 WBC 10.7 RBC 2.85 L Hgb 8.0 L Hct 24.2 L MCV 85 MCH 28.1 MCHC 33.1 RDW Std Deviation 47.6 H Plt Count 413 Neut % (Auto) 86 H Lymph % (Auto) 4 L [place] % (Auto) 7 Eos % (Auto) 2 Baso % (Auto) 0 Neut # (Auto) 9.2 H Lymph # (Auto) 0.5 L [place] # (Auto) 0.7 Eos # (Auto) 0.2 Baso # (Auto) 0.0 Immature Gran # (Auto) 0.09 H Absolute Nucleated RBC 0.00 Immature Gran % 1 H Nucleated RBC % 0 Sodium 126 L 127 L Potassium 3.6 3.8 Chloride 89 L 89 L Carbon Dioxide 29.9 30.0 Anion Gap 7 8 BUN 45 H 45 H Creatinine 1.1 1.1 Estim Creat Clear Calc 29.2 L 29.2 L eGFR 50 L 50 L BUN/Creatinine Ratio 41 H 41 H Glucose 150 H 145 H Calculated Osmolality 267 L 269 L Calcium 7.8 L 7.7 L Corrected Calcium 8.8 Total Bilirubin 0.5 AST 29 ALT 32 Alkaline Phosphatase 101 Total Protein 5.7 Albumin 2.6 L Globulin 3.1 Albumin/Globulin Ratio 0.8 L ABG Interpretation ABG results: 06/29/24 06/30/24 22:53 07:24 ABG pH 7.51 H ABG pCO2 42 ABG pO2 54 L* ABG HCO3 34 H ABG O2 Saturation 91 ABG Base Excess 10 H VBG pH 7.54 VBG pCO2 34 L VBG pO2 57 VBG Base Excess 6 H Quality Measures Quality Measures sepsis Current suspected stage: ruled out Possible source: pulmonary and genitourinary Blood cultures ordered: yes Antibiotic ordered: Yes Advance care planning discussed with:: patient Assessment & Plan Assessment Current Active Medications: Generic Name Dose Route Start Last Admin Trade Name Freq PRN Reason Stop Dose Admin Al Hydrox/Mg Hydrox/Simethicone 30 ml 06/30/24 02:29 Mg Hyd/Al Hyd/[place] (Maalox Reg) Susp 30 Ml Udc PO 07/30/24 02:28 Q4HR PRN Heartburn or Upset Stomach Albuterol/Ipratropium 3 ml 06/30/24 02:34 Albuterol/Ipratropium (Duoneb) Rt Viviana 3 Ml Nebu INH 07/30/24 02:33 Q2HR PRN SHORTNESS OF BREATH OR WHEEZE Atorvastatin Calcium 80 mg 06/30/24 21:00 07/01/24 21:23 Atorvastatin Calcium 20 Mg Tablet GT 07/30/24 20:59 80 mg HS AMARJIT Administration Dextrose 25 ml 06/30/24 03:02 Dextrose 50%-Water Inj 50 Ml Syringe IV 07/30/24 03:01 Q15MIN PRN BG 50-70 responsive npo pt Dextrose 50 ml 06/30/24 03:02 Dextrose 50%-Water Inj 50 Ml Syringe IV 07/30/24 03:01 Q15MIN PRN BG <50 OR BG <70 & pt unresponsive Glucagon 1 mg 06/30/24 03:02 Glucagon Inj 1 Mg Vial IM Q15MIN PRN BG <70, and no IV access Heparin Sodium (Porcine) 5,000 unit 07/01/24 11:30 07/02/24 08:40 Heparin Sod Inj 5000 Unit/Ml Vial SC 07/15/24 11:29 5,000 unit Q12HR AMARJIT Administration Insulin Human Lispro 0 unit 06/30/24 07:30 07/02/24 07:30 Insulin Lispro (Admelog) 1 Unit/0.01 Ml Unit SC 07/30/24 07:29 Not Given AC AMARJIT Protocol Lactulose 20 gm 06/30/24 03:04 Lactulose Syrup 20 Gm/30 Ml Udc PO 07/30/24 08:59 QDAY PRN Constipation Protocol Lansoprazole 30 mg 06/30/24 09:00 07/02/24 08:40 Lansoprazole 30 Mg Tab.Rap. GT 07/30/24 08:59 30 mg QDAY AMARJIT Administration Levofloxacin 250 mg 07/03/24 09:00 Levofloxacin 250 Mg Tablet GT 07/06/24 08:59 QDAY AMARJIT Magnesium Hydroxide 30 ml 06/30/24 02:29 Milk Of Magnesia Susp 30 Ml Udc PO 07/30/24 02:28 QDAY PRN CONSTIPATION Protocol Pharmacy Consult 1 each 06/30/24 09:00 Pharmacy Renal Dose Adjustment 1 Ea XX 07/30/24 08:59 QDAY PRN CONSULT Sodium Chloride 3 ml 06/30/24 03:27 Sodium Chloride Rt Viviana 0.9% 3 Ml Nebu INH 07/30/24 03:26 PRN PRN SOLN Plan Assessment and plan: Summary: Ms. Guaman is a 83-year-old female patient with past medical history of multiple CVA, seizure disorder, atrial fibrillation, hypertension, type 2 diabetes mellitus, nonverbal status post tracheostomy and PEG tube placement who presented to [facility] emergency department on 06/30/2024 from subacute with chief complaint of bradycardia. Patient was found to have severe hypoosmolar hyponatremia, overcorrected with hypertonic saline and patient was admitted to ICU for further management. Patient downgraded on 07/02/2024 to telemetry for further management. #Severe hypoosmolar hyponatremia #Acute kidney injury, resolved #Hyperkalemia, resolved Patient presented initially with sodium 115, was started on hypertonic saline in the emergency department, patient sodium overcorrected and hence nephrology was consulted, patient was started on desmopressin and D5W. Sodium is stable today, sodium level 127 Plan: -Will hold desmopressin and D5W for now -Follow renal panel in a.m. -Continue free water flushes per nephrology - Nephrology consulted, appreciate recommendations #Sepsis secondary to #Urinary tract infection #Pneumonia #Parapneumonic effusion #Sacral decubitus ulcer #Chronic respiratory failure status post tracheostomy Patient on presentation was bradycardic, was found to have urinary tract infection UA significant for rare bacteria, WBC 121, leukocyte esterase positive nitrite negative was started on IV antibiotics in the emergency department. Lactate was positive. Chest x-ray was significant for possible superimposed pneumonia, does have extensive pleural parenchymal disease. Patient was hypotensive at times in the intensive care unit, was never started on pressor support. Patient does also have a sacral decubitus ulcer. Plan: - Patient was started on Zosyn and doxycycline, which was discontinued and therapy was optimized on Levaquin -Follow blood urine and ET cultures -Monitor vitals closely -Patient does have Pleurx cath in place, unable to drain from catheter patient is scheduled for IR ultrasound guided thoracentesis. - Continue mechanical ventilation, SIMV mode #Bradycardia, resolved #Heart failure with preserved ejection fraction EF 55 to 60% #Atrial fibrillation Patient's BNP was elevated at 1037 on presentation, patient was hypovolemic on presentation, and EKG in the emergency department showed sinus bradycardia with heart rate in 50s repeat EKG showed improvement of heart rate. Patient has good chronotropic response and heart rate improved with the progression of hospital course. [id number] score 7 points indicating 11.2% risk of stroke per year Has-bled score of 2 points indicating moderate risk of major bleeding Plan: -Will continue to hold amiodarone -Patient not on any anticoagulation currently -Will consult cardiology, appreciate recommendations #PEG tube Feeding - Patient is currently on tube feeding, continue #Normocytic normochromic anemia Patient came with hemoglobin of 6.6, was given 1 unit PRBC - Follow CBC in a.m. #Diabetes mellitus type 2 - Sliding scale insulin #Constipation Patient has rectal tube intact, constipation resolved #Multiple CVA by history #Seizure disorder by history #Hypokalemia-resolved #Hypocalcemia resolved #Lactic acidosis resolved DVT prophylaxis: Heparin 5000 every 12 hours GI prophylaxis: Lansoprazole Diet: PEG tube feeds Lines: Peripheral IV Code status: DNR/DNI Case discussed with Attending Dr. Figueroa and Dr. Judd PGY2. Carl Fitzgerald PGY1 Disclaimer: This note was dictated by speech recognition. 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 Attending Provider Attestation/Addendum I reviewed labs, imaging, EKG, home medications and prior available records. Face to face evaluation was performed by me. I have personally examined the patient and discussed assessment and plan with the IM team. I reviewed the resident note and agree with the plan with exceptions as below. Acute hypotension Sinus bradycardia Hyponatremia Sepsis Hospital-acquired pneumonia Pleural effusion CELESTINO Status post 3% saline. Sodium improved. Overcorrected status post desmopressin. Monitor sodium level and avoid rapid correction Held metoprolol and amiodarone Consulted cardiology Monitor kidney function: Creatinine improved Avoid nephrotoxins. Renally dosed medications Continue Zosyn/doxycycline Consulted IR for pleurocentesis
[2024-07-02] MEDS: LEVOFLOXACIN 250 MG TABLET 500 MG GT (11:15)
[2024-07-02] MEDS: INSULIN LISPRO (AdmeLOG) 1 UNIT/0.01 ML UNIT SC ×2 (12:05→17:41)
--- NOTE | 2024-07-02 18:12 | PD.RESCONSUL ---
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 Given that patient is nonverbal at baseline, history obtained from chart review. Apparently, patient noted to have heart rate in 40s-50s in subacute and sent to the ED. In the ED, HR was 46, RR 32, afebrile, saturating well on mechanical ventilator at 43% FiO2 (patient's baseline). CBC significant for WBC 16.7, hemoglobin/hematocrit 6.6/19.6. Chem panel significant for Na 115, K 6.5, Cl 77, BUN 76, Cr 1.8, BNP 1037. UA positive for 121 WBC, LE, rare bacteria. Patient subsequently upgraded to the ICU for further management of hyponatremia and UTI and nephrology consulted. Initially Na overcorrected from 115 to 123 and started on D5W and desmopressin for overcorrection and eventually Na stabilized - currently at 127. Antibiotics de-escalated from zosyn and doxycycline to levofloxacin for UTI. Of note, patient also has a Pleurx catheter that was placed in April after being diagnosed with malignant pleural effusion but has not been draining fluid. Bedside ultrasound showed what looked to be loculations and orders placed for Pleurx catheter removel as well as US-guided thoracentesis. Cardiology consulted for bradycardia, HFpEF, and history of atrial fibrillation. 07/02: No acute overnight events noted. Patient seen and examined at bedside. As noted above, she is nonverbal at baseline but is alert and does have spontaneous movement of her upper extremities. Heart rate noted to be in the 70s-80s, normal sinus rhythm. Agree with holding amiodarone and consider restarting eliquis if no signs of active bleeding as hemoglobin has improved. Otherwise, vital signs stable and labs reviewed; Na and renal function improving. cc:: cc: Madelien Bansal MD Review of Systems Review of Systems ROS Unobtainable: unobtainable due to medical condition and due to endotracheal tube Exam Vital Signs Temp Pulse Resp BP Pulse Ox O2 Del Method FiO2 98.8 F 75 20 125/59 L 100 Mechanical Ventilation 45 07/02/24 16:00 07/02/24 16:00 07/02/24 16:00 07/02/24 16:00 07/02/24 16:00 06/30/24 07:01 07/02/24 16:00 Narrative Exam General: alert, nonverbal, chronically ill-appearing, moves upper extremities spontaneously HEENT: tracheostomy in place on mechanical ventilation, NC/AT, mucous membranes moist, bilateral sclera anicteric Cardiovascular: regular rate and rhythm, S1/S2 present, no murmurs appreciated Pulmonary: clear to auscultation, Plerx catheter in place Abdominal: soft, non-tender, non-distended, no rebound/guarding, normal bowel sounds present Musculoskeletal: muscle wasting noted in lower extremities, trace BLE pitting edema Skin: decubitus ulcer in sacrum Neuro: alert, nonverbal at baseline, able to move upper extremities spontaneously Results Labs 07/03/24 04:41 07/03/24 04:41 Labs: Short CBC 07/02/24 Range/Units 05:19 WBC 10.7 (3.6-11.0) Thou/mm3 Hgb 8.0 L (12.0-16.0) g/dL Hct 24.2 L (36.0-46.0) % Plt Count 413 (140-440) Thou/mm3 [facility] 07/01/24 07/02/24 07/02/24 20:16 00:25 05:19 Sodium 127 L 126 L 127 L Potassium 3.5 3.6 3.8 Chloride 89 L 89 L 89 L Carbon Dioxide 29.7 29.9 30.0 BUN 46 H 45 H 45 H Creatinine 1.2 1.1 1.1 Glucose 144 H 150 H 145 H Calcium 7.9 L 7.8 L 7.7 L Liver Function 07/02/24 Range/Units 05:19 Total Bilirubin 0.5 (0.3-1.2) mg/dL AST 29 (0-34) U/L ALT 32 (10-49) U/L Alkaline Phosphatase 101 (46-116) U/L Albumin 2.6 L (3.4-4.8) gm/dL ABG Interpretation ABG results: 06/29/24 06/30/24 22:53 07:24 ABG pH 7.51 H ABG pCO2 42 ABG pO2 54 L* ABG HCO3 34 H ABG O2 Saturation 91 ABG Base Excess 10 H VBG pH 7.54 VBG pCO2 34 L VBG pO2 57 VBG Base Excess 6 H Quality Measures Quality Measures sepsis Current suspected stage: ruled out Possible source: pulmonary and genitourinary Blood cultures ordered: yes Antibiotic ordered: Yes Advance care planning discussed with:: patient Medications Home Medications and Allergies Home Medications ?Medication ?Instructions ?Recorded ?Confirmed ?Type acetaminophen 325 mg tablet 325 mg feeding tube Q6H PRN fever 04/25/24 06/09/24 History or pain amiodarone 200 mg tablet 200 mg feeding tube DAILY 04/25/24 06/09/24 History amlodipine 10 mg tablet 10 mg feeding tube QDAY 04/25/24 06/09/24 History atorvastatin 80 mg tablet 80 mg feeding tube HS 04/25/24 06/09/24 History bisacodyl 5 mg tablet,delayed 10 mg feeding tube Q6H PRN 04/25/24 06/09/24 History release (Gentle Laxative constipation (bisacodyl)) insulin regular human 100 unit/mL 1 sliding scale dose subcut Q6H 04/25/24 06/09/24 History (3 mL) subcutaneous pen (Novolin R FlexPen) ipratropium 0.5 mg-albuterol 3 mg 3 ml inhalation Q6H PRN shortness 04/25/24 06/09/24 History (2.5 mg base)/3 mL nebulization of breath soln lactulose 10 gram/15 mL oral 10 g feeding tube Q6H 04/25/24 06/09/24 History solution (Enulose) metoprolol tartrate 25 mg tablet 25 mg feeding tube Q12H 04/25/24 06/09/24 History calcium 600 mg (as 1 cap PO DAILY 05/20/24 06/09/24 History carbonate)-vitamin D3 5 mcg (200 unit) capsule (Calcium 600 + D(3)) sennosides 8.6 mg tablet 8.6 mg feeding tube BID 05/20/24 06/09/24 History (Black-Draught Lax-Senna) ascorbic acid (vitamin C) 500 mg 500 mg feeding tube BID 06/09/24 06/09/24 History tablet (Vitamin C) carbamide peroxide 6.5 % ear drops 5 drp otic (ear) .Q61 06/09/24 06/09/24 History furosemide 20 mg tablet 20 mg feeding tube QDAY 06/09/24 06/09/24 History magnesium hydroxide 400 mg/5 mL 30 ml PO QDAY PRN constipation 06/09/24 06/09/24 History oral suspension (Milk of Magnesia) multivitamin (Daily Multi-Vitamin 1 tab feeding tube QAM 06/09/24 06/09/24 History tablet) polyethylene glycol 3350 17 17 g feeding tube QDAY 06/09/24 06/09/24 History gram/dose oral powder (Miralax) sodium chloride 1,000 mg soluble 1,000 mg feeding tube QDAY 06/09/24 06/09/24 History tablet zinc sulfate 50 mg zinc (220 mg) 50 mg feeding tube QDAY 06/09/24 06/09/24 History capsule Allergies Allergy/AdvReac Type Severity Reaction Status Date / Time No Known Allergies Allergy Verified 05/25/24 08:41 Visit Medications Al Hydrox/Mg Hydrox/Simethicone (Mg Hyd/Al Hyd/[place] (Maalox Reg) Susp 30 Ml Udc) 30 ml PO Q4HR PRN PRN Reason: Heartburn or Upset Stomach Stop: 07/30/24 02:28 Albuterol/Ipratropium (Albuterol/Ipratropium (Duoneb) Rt Viviana 3 Ml Nebu) 3 ml INH Q2HR PRN PRN Reason: SHORTNESS OF BREATH OR WHEEZE Stop: 07/30/24 02:33 Atorvastatin Calcium (Atorvastatin Calcium 20 Mg Tablet) 80 mg GT HS AMARJIT Stop: 07/30/24 20:59 Last Admin: 07/01/24 21:23 Dose: 80 mg Cadexomer Iodine (Cadexomer Iodine Gel 40 Gm Tube) 0 gm TOP HS AMARJIT Stop: 07/09/24 20:59 Dextrose (Dextrose 50%-Water Inj 50 Ml Syringe) 25 ml IV Q15MIN PRN PRN Reason: BG 50-70 responsive npo pt Stop: 07/30/24 03:01 Dextrose (Dextrose 50%-Water Inj 50 Ml Syringe) 50 ml IV Q15MIN PRN PRN Reason: BG <50 OR BG <70 & pt unresponsive Stop: 07/30/24 03:01 Glucagon (Glucagon Inj 1 Mg Vial) 1 mg IM Q15MIN PRN PRN Reason: BG <70, and no IV access Heparin Sodium (Porcine) (Heparin Sod Inj 5000 Unit/Ml Vial) 5,000 unit SC Q12HR AMARJIT Stop: 07/15/24 11:29 Last Admin: 07/02/24 08:40 Dose: 5,000 unit Insulin Human Lispro (Insulin Lispro (Admelog) 1 Unit/0.01 Ml Unit) 0 unit SC Q6H AMARJIT; Protocol Stop: 08/01/24 11:29 Last Admin: 07/02/24 17:41 Dose: 1 unit Lactulose (Lactulose Syrup 20 Gm/30 Ml Udc) 20 gm PO QDAY PRN; Protocol PRN Reason: Constipation Stop: 07/30/24 08:59 Lansoprazole (Lansoprazole 30 Mg Tab.Rap.Dr) 30 mg GT QDAY AMARJIT Stop: 07/30/24 08:59 Last Admin: 07/02/24 08:40 Dose: 30 mg Levofloxacin (Levofloxacin 250 Mg Tablet) 250 mg GT QDAY AMARJIT Stop: 07/06/24 08:59 Magnesium Hydroxide (Milk Of Magnesia Susp 30 Ml Udc) 30 ml PO QDAY PRN; Protocol PRN Reason: CONSTIPATION Stop: 07/30/24 02:28 Pharmacy Consult (Pharmacy Renal Dose Adjustment 1 Ea) 1 each XX QDAY PRN PRN Reason: CONSULT Stop: 07/30/24 08:59 Sodium Chloride (Sodium Chloride Rt Viviana 0.9% 3 Ml Nebu) 3 ml INH PRN PRN PRN Reason: SOLN Stop: 07/30/24 03:26 Discontinued Medications Albuterol (Albuterol Rt 2.5 Mg/3 Ml Nebu) 2.5 mg INH X1 ONE Stop: 06/30/24 02:48 Last Admin: 06/30/24 03:56 Dose: Not Given Albuterol (Albuterol Rt 2.5 Mg/0.5 Ml Nebu) 10 mg INH X1 ONE Stop: 06/30/24 03:28 Last Admin: 06/30/24 03:56 Dose: 10 mg Atorvastatin Calcium (Atorvastatin Calcium 20 Mg Tablet) 80 mg PO HS [facility] Stop: 07/30/24 20:59 Calcium Carbonate (Calcium Carbonate 600 Mg Tablet) 600 mg GT QDAY AMARJIT Stop: 07/30/24 16:29 Last Admin: 07/01/24 09:45 Dose: 600 mg Desmopressin Acetate (Desmopressin Acetate 4 Mcg/Ml Vial) 2 mcg IV Q8H AMARJIT Stop: 07/30/24 09:29 Last Admin: 06/30/24 10:50 Dose: Not Given Desmopressin Acetate (Desmopressin Acet Inj 4 Mcg/Ml Vial 10ml) 2 mcg IV Q8H AMARJIT Stop: 07/30/24 11:29 Last Admin: 06/30/24 16:39 Dose: Not Given Desmopressin Acetate (Desmopressin Acetate 4 Mcg/Ml Vial) 2 mcg IV Q8H AMARJIT Stop: 07/30/24 11:29 Last Admin: 07/02/24 04:10 Dose: 2 mcg Dextrose (Dextrose 50%-Water Inj 50 Ml Syringe) 50 ml IV X1 ONE Stop: 06/30/24 02:48 Last Admin: 06/30/24 04:04 Dose: 50 ml Furosemide (Furosemide Inj 10 Mg/Ml 4ml Vial) 20 mg IVP X1 ONE Stop: 06/30/24 10:53 Last Admin: 06/30/24 11:02 Dose: Not Given Piperacillin Sod/Tazobactam (Sod 4.5 gm/ Sodium Chloride) 100 mls @ 200 mls/hr IV X1 ONE Stop: 06/30/24 01:09 Last Infusion: 06/30/24 02:35 Dose: Infused Doxycycline Hyclate 100 mg/ (Sodium Chloride) 100 mls @ 100 mls/hr IV X1 ONE Stop: 06/30/24 01:39 Last Infusion: 06/30/24 02:29 Dose: Infused Sodium Chloride (Ns) 1,000 mls @ 999 mls/hr IV .Q1H1M ONE Stop: 06/30/24 01:45 Last Infusion: 06/30/24 02:10 Dose: Infused Magnesium Sulfate (Magnesium Sulfate Ivpb) 2 gm in 50 mls @ 25 mls/hr IV X1 ONE Stop: 06/30/24 02:53 Last Infusion: 06/30/24 04:17 Dose: Infused Sodium Chloride (Ns) 1,000 mls @ 999 mls/hr IV .Q1H1M ONE Stop: 06/30/24 02:28 Last Infusion: 06/30/24 03:14 Dose: Infused Sodium Chloride 500 ml/ IV (Miscellaneous Supplies) 500 mls @ 30 mls/hr IV X1 ONE Stop: 06/30/24 18:15 Last Admin: 06/30/24 03:15 Dose: 30 mls/hr Piperacillin Sod/Tazobactam (Sod 4.5 gm/ Sodium Chloride) 100 mls @ 200 mls/hr IV Q6HR AMARJIT Stop: 07/07/24 02:45 Last Admin: 06/30/24 03:57 Dose: Not Given Doxycycline Hyclate 100 mg/ (Sodium Chloride) 100 mls @ 100 mls/hr IV BID AMARJIT Stop: 07/07/24 08:59 Last Admin: 07/02/24 08:40 Dose: 100 mls/hr Calcium Gluconate/Sodium Chloride (Calcium Gluc/Ns 1000mg Ivpb) 1,000 mg in 50 mls @ 50 mls/hr IV X1 ONE Stop: 06/30/24 03:47 Last Admin: 06/30/24 06:20 Dose: 50 mls/hr Piperacillin/Tazobactam/Dextrose (Zosyn) 3.375 gm in 50 mls @ 12.5 mls/hr IV Q8HR [facility]; Protocol Stop: 07/07/24 07:29 Last Admin: 07/02/24 05:12 Dose: 12.5 mls/hr Dextrose (D5w) 250 mls @ 125 mls/hr IV .Q2H AMARJIT Stop: 06/30/24 15:44 Last Admin: 06/30/24 13:58 Dose: 125 mls/hr Dextrose (D5w) 250 mls @ 125 mls/hr IV .Q2H AMARJIT Stop: 07/01/24 09:14 Last Admin: 07/01/24 13:36 Dose: Not Given Dextrose (D5w) 250 mls @ 125 mls/hr IV .Q2H AMARJIT Stop: 07/01/24 09:14 Last Admin: 07/01/24 07:32 Dose: 125 mls/hr Dextrose (D5w) 250 mls @ 999 mls/hr IV .Q16M AMARJIT Stop: 07/01/24 07:46 Last Admin: 07/01/24 09:16 Dose: Not Given Dextrose (D5w) 500 mls @ 125 mls/hr IV .Q4H [facility] Stop: 07/01/24 11:59 Last Admin: 07/01/24 09:50 Dose: 125 mls/hr Insulin Human Lispro (Insulin Lispro (Admelog) 1 Unit/0.01 Ml Unit) 0 unit SC AC [facility]; Protocol Stop: 07/30/24 07:29 Last Admin: 07/02/24 07:30 Dose: Not Given Insulin Human Regular (Insulin Hum Regular 1 Unit/0.01 Ml (Per Unit)) 10 unit IV X1 ONE Stop: 06/30/24 02:48 Last Admin: 06/30/24 04:08 Dose: 10 unit Levofloxacin (Levofloxacin 250 Mg Tablet) 500 mg GT X1 ONE Stop: 07/02/24 10:18 Last Admin: 07/02/24 11:15 Dose: 500 mg Potassium Chloride (Potassium Chloride 10% 20 Meq/15 Ml Udc) 20 meq GT X1 ONE Stop: 07/01/24 11:17 Last Admin: 07/01/24 12:42 Dose: 20 meq Sodium Polystyrene Sulfonate (Sod Polystyrene Sulfon Susp 15 Gm/60 Ml Btl) 30 gm GT X1 ONE Stop: 06/30/24 02:48 Last Admin: 06/30/24 04:10 Dose: 30 gm Assessment & Plan Plan Monisha Guaman is an 83-year-old female with past medical history of multiple strokes 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 Cardiology consulted for bradycardia, HFpEF, and history of atrial fibrillation. #Bradycardia, resolved #History of A-fib on amiodarone and Eliquis #History of DVT Presented with heart rate in 40s to 50s, currently in 80s and in normal sinus rhythm. Amiodarone and Eliquis noted to be held since admission, given bradycardia and hemoglobin of 6.6, respectively. Patient noted to have Rx for amiodarone and metoprolol, both currently held, in addition to Eliquis. Consider resuming amiodarone given that HR has improved and remained stable. [id number] score: 8, 10.8% % risk of stroke per year HAS-BLED score: 3, high risk of major bleeding ? Given that patient also has metoprolol tartrate rx, consider restarting amiodarone ? Once no more procedures are planned, consider restarting eliquis given that hemoglobin stable, no signs of active bleeding, FOBT negative, and patient's history of DVT #HFpEF (EF 55 to 60% 04/2024) BNP > 1000 upon admission. Echo 04/2024: LV appears normal with EF 55-60%, grade II diastolic dysfunction. RVSP 45 mmHg. Mod-severe MR, mild MAC, mild-moderate TR. Noted to have rx of lasix 20 mg and metoprolol tartrate 25 mg ? If patient takes at subacute, continue to withhold metoprolol and consider restarting amiodarone ? In setting of severe hypoosmolar hyponatremia, continue to withhold lasix #Severe hypoosmolar hyponatremia #Acute kidney injury, resolved #Hyperkalemia, resolved #Urinary tract infection #Pneumonia #Parapneumonic effusion #Sacral decubitus ulcer #Chronic respiratory failure status post tracheostomy #PEG tube Feeding #Normocytic normochromic anemia #Diabetes mellitus type 2 #Constipation #Multiple CVA by history #Seizure disorder by history #Hypokalemia, resolved #Hypocalcemia, resolved #Lactic acidosis, resolved ? Continue management per primary team and other consultants ----- Plan discussed with attending physician Dr. Ismael Trejo MD PGY-1 Internal Medicine Attending Provider Attestation/Addendum I have personally seen and examined the patient separately on the above date of service and discussed the plan of care with the resident. I reviewed the resident Dr. Woo Trejo consultation progress note and agree with the resident findings and plan in the note above and have also edited the documentation to reflect my findings and plan. Patient known to me from previous admission. A 83-year-old female from subacute nursing facility with a significant past medical history and multiple comorbidities including paroxysmal atrial fibrillation, chronic diastolic congestive heart failure or HFpEF, chronic respiratory failure, status post tracheostomy, multiple CVAs, status post PEG tube placement, diabetes mellitus, hypertension, seizure disorder, nonverbal and bedbound at baseline, decubitus ulcers [facility] evaluation of bradycardia. Initial labs and vitals in the emergency department showed patient WBC was elevated at 16.7 and hemoglobin of 6.6 sodium was 115, potassium of 6.5, BUN of 76 and creatinine of 1.8. Chloride of 77 lactic acid 2.2 osmolality 259 glucose 177 BNP 11/04/1936 procalcitonin 0.96. ABG with a pH of 7.51 with a pO2 of 54 and bicarb was 13.9. Blood pressure was 134/64 mmHg heart rate of 46/min respirate rate of 32/min and temperature 98F. EKG showed sinus bradycardia without any acute ST-T changes. Chest x-ray showed extensive bilateral parenchymal disease with possible pneumonia. Patient was admitted to the ICU for severe hyponatremia with a sodium level of 115 on admission along with acute kidney injury and severe anemia. During the admission in early May 2024 patient was admitted for acute on chronic respiratory failure with bilateral pneumonia, pleural effusions which required thoracocentesis and the pleural effusions due to malignant stents and eventually a Pleurx catheter was placed. Patient also had new onset diastolic CHF and was started on Lasix 20 mg once daily after diuresing with IV Lasix which he tolerated very well. For atrial fibrillation patient was started on amiodarone as well as metoprolol tartrate to be given by the G-tube and cannot give metoprolol XL as it could not be crushed. Patient was also restarted on Eliquis. Assessment and plan: 1. Severe bradycardia-mostly secondary to the severe acidosis on admission with hyperkalemia as well as acute kidney injury while on amiodarone and metoprolol tartrate 2. Severe hyponatremia at 115 3. Acute on chronic respiratory failure status post tracheostomy in the setting of bilateral pneumonia 4. Acute on chronic kidney injury 5. Hyperkalemia at 6.7 6. Sepsis secondary to bilateral pneumonia with parapneumonic effusion-. 7. History of paroxysmal atrial fibrillation with RVR 8. Chronic diastolic congestive heart failure or HFpEF 9. History of malignant pleural effusion-previous thoracocentesis showed malignant cells in the effusion 10. Diabetes mellitus 92 11. Hyper tension 12. Multiple CVAs Patient presented with bradycardia with a heart rate in the 40s but at the time of the presentation patient was acidotic with significant hyperkalemia at 6.7 in the setting of acute kidney injury with a BUN of 78 and a creatinine of 1.8. Patient was also on amiodarone as well as metoprolol tartrate. Both amiodarone and metoprolol tartrate were stopped and patient was hydrated after which patient's sinus bradycardia resolved. Patient does have a history of atrial fibrillation with RVR and was started on amiodarone and metoprolol tartrate during last admission and can continue amiodarone 200 mg once daily for now. Hold off on any metoprolol tartrate for now. Patient will be bradycardic every time she has a stress test with severe hypokalemia and hence will only give metoprolol tartrate 12.5 mg twice daily if patient goes back into [facility] with RVR. [place] potassium greater than 4 and magnesium greater than 2.0 at all times. Continue to monitor telemetry Regarding her severe hyponatremia-patient has been mostly hypovolemic hyponatremia. Patient presented with sodium of 115 chloride of 77 BUN 76 and creatinine of 1.8 indicating hypovolemic state mostly from the diuresis from Lasix and also patient was on lactulose and probably oral water flushes were not adequate for the patient. Patient was given 3% normal saline along with normal saline with which sodium is improved and recommend to continue to hold off on Lasix at the present point of time and only give Lasix as needed as needed if patient is significantly fluid overloaded. Patient does have diastolic congestive heart failure previously was diuresed with IV Lasix but recommend to hold for now as noted above. Strict input output Daily weights and 2 g sodium diet Acute on chronic kidney injury BUN is 76 and creatinine is 1.8. Patient was started on Lasix 20 mg once daily and during last admission her BUN continued to increase even during the last 2 admissions in between since I will have the last time which showed slowly rising BUN but also patient's hemoglobin dropped down to 6.6. BUN increased could be secondary to the Lasix use versus also any kind of upper GI bleed and primary team ruling out the same. Hold Lasix for now and continue to monitor renal function. Agree with IV fluids for now. Patient did have a history of malignant cells noted in the previous pleural effusions and Pleurx catheter was placed last time and patient possibly has a malignancy which has not been diagnosed and primary team to continue workup for the same. Alfa Guevara M.D. Interventional Cardiology
[2024-07-02] MEDS: ATORVASTATIN CALCIUM 20 MG TABLET 80 MG GT (20:16)
[2024-07-02] MEDS: CADEXOMER IODINE GEL 40 GM TUBE TOP (20:19)
[2024-07-03] VITALS (15 sets, daily range): BP systolic 131–154; BP diastolic 55–104; PULSE 69–83; RESP 15–35; TEMP 36.1–37.2; O2SAT 100; BMI 22.9
[2024-07-03 05:40] LABS: Basophils % (Auto) 0 % (0-2.5); Eosinophils # (Auto) 0.1 Thou/mm3 (0.0-0.5); Eosinophils % (Auto) 1 % (0-10); Hematocrit 26.1 % (36.0-46.0); Immature Granulocytes % (Auto) 1 % (0-0); Immature Granulocytes Auto 0.09 Thou/mm3 (0.00-0.00); Lymphocytes # (Auto) 0.8 Thou/mm3 (1.0-4.8); Lymphocytes % (Auto) 6 % (10-50); Mean Corpuscular HGB Conc 33.3 g/dl (31.0-37.0); Mean Corpuscular Hemoglobin 27.9 pg (25.0-35.0); Mean Corpuscular Volume 84 fL (80-100); Monocytes # (Auto) 1.1 Thou/mm3 (0.0-0.8); Monocytes % (Auto) 8 % (0-12); Neutrophils # (Auto) 11.7 Thou/mm3 (1.8-7.7); Neutrophils % (Auto) 85 % (37-80); Nucleated Red Blood Cell % 0 /100 WBC (0); Platelet Count 424 Thou/mm3 (140-440); RDW Standard Deviation 47.7 fL (36.4-46.3); Red Blood Count 3.12 Miln/mm3 (4.00-5.20); White Blood Count 13.8 Thou/mm3 (3.6-11.0)
[2024-07-03 05:59] LABS: Alanine Aminotransferase 28 U/L (10-49); Albumin, Serum 2.8 gm/dL (3.4-4.8); Albumin/Globulin Ratio 0.8 (1.2-2.2); Alkaline Phosphatase 106 U/L (46-116); Anion Gap 8 (7-16); Aspartate Amino Transferase 26 U/L (0-34); BUN/Creatinine Ratio 42 Ratio (12-20); Bilirubin,Total 0.5 mg/dL (0.3-1.2); Blood Urea Nitrogen 42 mg/dL (9-23); Calcium 8.1 mg/dL (8.3-10.6); Calcium (Corrected) 9.1 mg/dL (8.5-10.1); Carbon Dioxide 30.5 mMol/L (20.0-31.0); Chloride 89 mMol/L (98-107); Estimated Creatinine Clearance 32.2 mL/min (>60); Globulin 3.3 gm/dL (2.3-3.5); Glucose 146 mg/dL (74-106); Osmolality,Calculated 268 (275-295); Sodium 127 mMol/L (136-145); Total Protein 6.1 gm/dL (5.7-8.2); eGFR 56 See Note
[2024-07-03 06:10] LABS: Hemoglobin 8.7 g/dL (12.0-16.0)
--- NOTE | 2024-07-03 08:41 | PC.NURSE ---
Handoff report given to Kalpana MONROY.
[2024-07-03] MEDS: LANSOPRAZOLE 30 MG TAB.RAP.DR GT (09:52)
[2024-07-03] MEDS: HEPARIN SOD INJ 5000 UNIT/ML VIAL SC ×2 (09:52→20:11)
--- NOTE | 2024-07-03 09:58 | PD.RESPRO ---
Documentation for date of: 07/03/24 Subjective Subjective Interval history: This is an 83-year-old female with chronic tracheotomy and PEG tube following multiple strokes, seizure disorder, A-fib, HTN, T2DM, 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 Patient nonverbal. HPI collected from chart review. Evidently she was on ANTIBIOTIC for UTI. She presented with BP 134/64, HR 46, RR 32, afebrile, on mechanical ventilation. Labs showed sodium 115, potassium 6.5, serum osmole 259, chloride 77, BUN/CR 76/1.8, GLUCOSE 177, lactic acid 2.2, BNP 1037, H/H 6.9/19.6. ABG showed pH 7.51, PO254, bicarb 30.9. UA showed WBC 129, positive LE and rare bacteria. EKG showed sinus bradycardia without T wave abnormalities. Unable to assess mentation or baseline secondary to AMS which is baseline for her. In the ED, her initial vitals were blood pressure of 134/64, pulse 46, respiratory rate 32, temperature 98.0, saturating well on mechanical ventilator with 43% FiO2 which is her baseline at the subacute. Lab results are significant for WBC of 16.7, hemoglobin/hematocrit of 6.6/19.6, sodium 115, potassium 6.5, chloride 77, BUN/creatinine 76/1.8, glucose 177, osmolality 259, lactic acid 2.2, BNP 1037, procalcitonin 0.96. ABG was obtained which shows pH of 7.51, PO2 of 54, bicarb from CHEM panel was 30.9. Urinalysis shows 121 WBCs, positive leukocyte esterase and rare bacteria. As per patient's RN, the Hector catheter appears recently exchanged. Initially she was given 2 L NS boluses and started on 3% hypertonic. Sodium corrected from 123 to 127. Currently 3% hypertonic was discontinued. Potassium 5.2. Also given KAYEXALATE and, ALBUTEROL and CALCIUM GLUCONATE, potassium improved to 5.2. Patient currently in ICU. Nephrology was consulted for management of CELESTINO. Recommendations as listed below. 07/01/2024 patient currently seen in ICU. Remains nonverbal. Opens her eyes but do not track. Overnight no acute events. Blood pressure 138/60, heart rate 72. WBC 12.5, hemoglobin 7.8, platelets 401.Sodium 126, potassium 3.5, BUN 46, creatinine 1.2, glucose 144, calcium 9.5, LFTs normal, albumin 2.6. Patient currently on desmopressin and D5W. Noted to have good urine output. 07/02/2024 examined at bedside in ICU. Remains nonverbal, opens eyes spontaneously, does not track. No overnight events. BP 134/60, HR 72. Leukocytosis resolved. Hgb stable 8.0. CR normal. Sodium 127, stable.will discontinue DESMOPRESSIN. Urine output normal. 07/03/2024 examined at bedside in ICU. Hemodynamically stable. Mental status appears at baseline. Appears comfortable without signs of distress. Plan to downgrade Q2H for today. Sodium remains 127. Will salt tablets BID. Exam Vital Signs Temp Pulse Resp BP Pulse Ox O2 Del Method FiO2 97.2 F 81 20 142/104 H 100 Mechanical Ventilation 45 07/03/24 08:00 07/03/24 08:00 07/03/24 08:00 07/03/24 08:00 07/03/24 08:00 07/03/24 08:00 07/03/24 08:00 Narrative Exam GENERAL APPEARANCE: Elderly frail lady currently seen in ICU Status post trach and on vent NECK: Neck supple, no JVD or bruit CARDIOVASCULAR: Heart regular, no murmurs LUNGS/CHEST: Bilateral rhonchi noted ABDOMEN: Soft, nontender, nondistended. No masses. Normal bowel sounds. ++ Feeding tube EXTREMITIES: 2+ edema in the lower extremities SKIN: Dry skin MUSCULOSKELETAL: Patient seems to be in bed with contractures NEUROLOGICAL : Barely arousable Objective Labs 07/03/24 04:41 07/03/24 04:41 Labs: Laboratory Results - last 24 hr 06/30/24 07/03/24 01:01 04:41 WBC 13.8 H RBC 3.12 L Hgb 8.7 L Hct 26.1 L MCV 84 MCH 27.9 MCHC 33.3 RDW Std Deviation 47.7 H Plt Count 424 Neut % (Auto) 85 H Lymph % (Auto) 6 L [place] % (Auto) 8 Eos % (Auto) 1 Baso % (Auto) 0 Neut # (Auto) 11.7 H Lymph # (Auto) 0.8 L [place] # (Auto) 1.1 H Eos # (Auto) 0.1 Baso # (Auto) 0.0 Immature Gran # (Auto) 0.09 H Absolute Nucleated RBC 0.00 Immature Gran % 1 H Nucleated RBC % 0 Sodium 127 L Potassium 4.0 Chloride 89 L Carbon Dioxide 30.5 Anion Gap 8 BUN 42 H Creatinine 1.0 Estim Creat Clear Calc 32.2 L eGFR 56 L BUN/Creatinine Ratio 42 H Glucose 146 H Calculated Osmolality 268 L Calcium 8.1 L Corrected Calcium 9.1 Total Bilirubin 0.5 AST 26 ALT 28 Alkaline Phosphatase 106 Total Protein 6.1 Albumin 2.8 L Globulin 3.3 Albumin/Globulin Ratio 0.8 L Crossmatch See Detail ABG Interpretation ABG results: 06/29/24 06/30/24 22:53 07:24 ABG pH 7.51 H ABG pCO2 42 ABG pO2 54 L* ABG HCO3 34 H ABG O2 Saturation 91 ABG Base Excess 10 H VBG pH 7.54 VBG pCO2 34 L VBG pO2 57 VBG Base Excess 6 H Quality Measures Quality Measures sepsis Current suspected stage: ruled out Possible source: pulmonary and genitourinary Blood cultures ordered: yes Antibiotic ordered: No Advance care planning discussed with:: patient Assessment & Plan Assessment Current Active Medications: Generic Name Dose Route Start Last Admin Trade Name Freq PRN Reason Stop Dose Admin Al Hydrox/Mg Hydrox/Simethicone 30 ml 06/30/24 02:29 Mg Hyd/Al Hyd/[place] (Maalox Reg) Susp 30 Ml Udc PO 07/30/24 02:28 Q4HR PRN Heartburn or Upset Stomach Albuterol/Ipratropium 3 ml 06/30/24 02:34 Albuterol/Ipratropium (Duoneb) Rt Viviana 3 Ml Nebu INH 07/30/24 02:33 Q2HR PRN SHORTNESS OF BREATH OR WHEEZE Atorvastatin Calcium 80 mg 06/30/24 21:00 07/02/24 20:16 Atorvastatin Calcium 20 Mg Tablet GT 07/30/24 20:59 80 mg HS AMARJIT Administration Cadexomer Iodine 0 gm 07/02/24 21:00 07/02/24 20:19 Cadexomer Iodine Gel 40 Gm Tube TOP 07/09/24 20:59 1 applicatio HS AMARJIT Administration Citric Acid/Sodium Citrate 30 ml 07/03/24 10:00 Citric Acid/Sodium Citr 15 Ml Udc (Bicitra) GT 08/02/24 09:59 BID AMARJIT Dextrose 25 ml 06/30/24 03:02 Dextrose 50%-Water Inj 50 Ml Syringe IV 07/30/24 03:01 Q15MIN PRN BG 50-70 responsive npo pt Dextrose 50 ml 06/30/24 03:02 Dextrose 50%-Water Inj 50 Ml Syringe IV 07/30/24 03:01 Q15MIN PRN BG <50 OR BG <70 & pt unresponsive Glucagon 1 mg 06/30/24 03:02 Glucagon Inj 1 Mg Vial IM Q15MIN PRN BG <70, and no IV access Heparin Sodium (Porcine) 5,000 unit 07/01/24 11:30 07/03/24 09:52 Heparin Sod Inj 5000 Unit/Ml Vial SC 07/15/24 11:29 5,000 unit Q12HR AMARJIT Administration Insulin Human Lispro 0 unit 07/02/24 11:30 07/03/24 05:08 Insulin Lispro (Admelog) 1 Unit/0.01 Ml Unit SC 08/01/24 11:29 Not Given Q6H AMARJIT Protocol Lactulose 20 gm 06/30/24 03:04 Lactulose Syrup 20 Gm/30 Ml Udc PO 07/30/24 08:59 QDAY PRN Constipation Protocol Lansoprazole 30 mg 06/30/24 09:00 07/03/24 09:52 Lansoprazole 30 Mg Tab.Rap. GT 07/30/24 08:59 30 mg QDAY AMARJIT Administration Levofloxacin 250 mg 07/03/24 09:00 Levofloxacin 250 Mg Tablet GT 07/06/24 08:59 QDAY AMARJIT Magnesium Hydroxide 30 ml 06/30/24 02:29 Milk Of Magnesia Susp 30 Ml Udc PO 07/30/24 02:28 QDAY PRN CONSTIPATION Protocol Pharmacy Consult 1 each 06/30/24 09:00 Pharmacy Renal Dose Adjustment 1 Ea XX 07/30/24 08:59 QDAY PRN CONSULT Sodium Chloride 3 ml 06/30/24 03:27 Sodium Chloride Rt Viviana 0.9% 3 Ml Nebu INH 07/30/24 03:26 PRN PRN SOLN Plan 83-year-old female with chronic tracheotomy and PEG tube following multiple strokes, seizure disorder, A-fib, HTN, T2DM, 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 Found to have severe hyponatremia, hyperkalemia and CELESTINO. Sodium steadily around 127, even after discontinuing DESMOPRESSIN. Will start salt tablets BID through PEG tube. Hypotonic, hypervolemic hyponatremia Sodium stable at 127 today. ? Started tablets BID to PEG tube ? Continue sodium checks CELESTINO, likely pre-renal (resolved) Likely due to hypoperfusion from sepsis, fluid shifts, or renal vasoconstriction Previously normal renal function, presenting with CR 1.8, BUN 66, and EGFR 28. Creatinine markedly improved with fluids. ? Renally dose meds, avoid overdiuresis and NEPHROTOXINS ? Daily CMP Hypokalemia replace KCL UTI Has been on outpatient ANTIBIOTICS for UTI. UA suggest UTI. ? Continue ANTIBIOTICS per primary team. Bradycardia Sinus bradycardia on EKG. Recurrent bradycardia per chart review. Possibly related to AMIODARONE which is currently on hold. Less likely d/t hyperkalemia, no related EKG abnormalities. ? Managed by primary team Lactic acidosis, type I versus type II (resolved) Possibly in setting of sepsis versus poor clearance. ? Managed by primary team History of multiple strokes History of seizure disorder Patient nonverbal at baseline History of A-fib History of hypertension Bilateral pneumonia Acute normocytic anemia Leukocytosis Sepsis UTI Pneumonia Decubitus ulcer Concern for osteomyelitis Constipation PEG tube feeding ? Managed by primary team Patient case was discussed with attending, Dr. Babin. Ed Solorio DO PGYI Attending Provider Attestation/Addendum Patient seen and examined with resident physician Dr. Ward. Note reviewed, agree with findings and recommendations. Sodium seems to be stable. Discontinue desmopressin and D5W. Sodium 127. Added salt tablets. Noted to have rectal tube. Will monitor bicarbonate /electrolytes closely.
[2024-07-03] MEDS: LEVOFLOXACIN 250 MG TABLET 500 MG GT (11:00)
[2024-07-03] MEDS: SODIUM CHLORIDE 1 GM TABLET GT ×2 (11:00→20:12)
[2024-07-03] MEDS: AMIODARONE HCL 200 MG TABLET GT (11:00)
--- NOTE | 2024-07-03 11:01 | PD.RESPRO ---
Documentation for date of: 07/03/24 Subjective Subjective Interval history: No acute overnight events noted. Seen and examined at bedside. Patient is nonverbal at baseline but does open eyes to voice. Vital signs stable, she is on mechanical ventilation at 45% FiO2 and saturating 100%. Telemetry reviewed and heart rate remains in 70s and 80s and in normal sinus rhythm. Amiodarone restarted this AM. Labs reviewed, WBC uptrended from 10 to 13, hemoglobin stable at 8.7, Na stable at 127, Cl 89. Order placed to remove PleurX catheter given that it has not been draining and loculations seen on ultrasound. Continue with amiodarone and will hold metoprolol. In the case that heart rate increases, can start metoprolol at lower dose of 12.5 mg via GT twice daily. Additionally, recommend to only use Lasix as needed when patient is fluid overload. Exam Vital Signs Temp Pulse Resp BP Pulse Ox O2 Del Method FiO2 97.2 F 78 20 142/104 H 100 Mechanical Ventilation 45 07/03/24 08:00 07/03/24 11:00 07/03/24 08:00 07/03/24 11:00 07/03/24 10:22 07/03/24 08:00 07/03/24 10:22 Narrative Exam General: alert, nonverbal, chronically ill-appearing, moves upper extremities spontaneously HEENT: tracheostomy in place on mechanical ventilation, NC/AT, mucous membranes moist, bilateral sclera anicteric Cardiovascular: regular rate and rhythm, S1/S2 present, no murmurs appreciated Pulmonary: bronchial breath sounds ausculated bilaterally, Plerx catheter in place Abdominal: soft, non-tender, non-distended, no rebound/guarding, normal bowel sounds present Musculoskeletal: muscle wasting noted in lower extremities, trace BLE pitting edema Skin: decubitus ulcer in sacrum Neuro: alert, nonverbal at baseline, able to move upper extremities spontaneously Objective Labs 07/03/24 04:41 07/03/24 04:41 Labs: Laboratory Results - last 24 hr 06/30/24 07/03/24 01:01 04:41 WBC 13.8 H RBC 3.12 L Hgb 8.7 L Hct 26.1 L MCV 84 MCH 27.9 MCHC 33.3 RDW Std Deviation 47.7 H Plt Count 424 Neut % (Auto) 85 H Lymph % (Auto) 6 L [place] % (Auto) 8 Eos % (Auto) 1 Baso % (Auto) 0 Neut # (Auto) 11.7 H Lymph # (Auto) 0.8 L [place] # (Auto) 1.1 H Eos # (Auto) 0.1 Baso # (Auto) 0.0 Immature Gran # (Auto) 0.09 H Absolute Nucleated RBC 0.00 Immature Gran % 1 H Nucleated RBC % 0 Sodium 127 L Potassium 4.0 Chloride 89 L Carbon Dioxide 30.5 Anion Gap 8 BUN 42 H Creatinine 1.0 Estim Creat Clear Calc 32.2 L eGFR 56 L BUN/Creatinine Ratio 42 H Glucose 146 H Calculated Osmolality 268 L Calcium 8.1 L Corrected Calcium 9.1 Total Bilirubin 0.5 AST 26 ALT 28 Alkaline Phosphatase 106 Total Protein 6.1 Albumin 2.8 L Globulin 3.3 Albumin/Globulin Ratio 0.8 L Crossmatch See Detail ABG Interpretation ABG results: 06/29/24 06/30/24 22:53 07:24 ABG pH 7.51 H ABG pCO2 42 ABG pO2 54 L* ABG HCO3 34 H ABG O2 Saturation 91 ABG Base Excess 10 H VBG pH 7.54 VBG pCO2 34 L VBG pO2 57 VBG Base Excess 6 H Quality Measures Quality Measures sepsis Current suspected stage: ruled out Possible source: pulmonary and genitourinary Blood cultures ordered: yes Antibiotic ordered: Yes Advance care planning discussed with:: patient Assessment & Plan Assessment Current Active Medications: Generic Name Dose Route Start Last Admin Trade Name Freq PRN Reason Stop Dose Admin Al Hydrox/Mg Hydrox/Simethicone 30 ml 06/30/24 02:29 Mg Hyd/Al Hyd/[place] (Maalox Reg) Susp 30 Ml Udc PO 07/30/24 02:28 Q4HR PRN Heartburn or Upset Stomach Albuterol/Ipratropium 3 ml 06/30/24 02:34 Albuterol/Ipratropium (Duoneb) Rt Viviana 3 Ml Nebu INH 07/30/24 02:33 Q2HR PRN SHORTNESS OF BREATH OR WHEEZE Amiodarone HCl 200 mg 07/03/24 10:15 07/03/24 11:00 Amiodarone Hcl 200 Mg Tablet GT 08/02/24 10:14 200 mg QDAY AMARJIT Administration Atorvastatin Calcium 80 mg 06/30/24 21:00 07/02/24 20:16 Atorvastatin Calcium 20 Mg Tablet GT 07/30/24 20:59 80 mg HS AMARJIT Administration Cadexomer Iodine 0 gm 07/02/24 21:00 07/02/24 20:19 Cadexomer Iodine Gel 40 Gm Tube TOP 07/09/24 20:59 1 applicatio HS AMARJIT Administration Dextrose 25 ml 06/30/24 03:02 Dextrose 50%-Water Inj 50 Ml Syringe IV 07/30/24 03:01 Q15MIN PRN BG 50-70 responsive npo pt Dextrose 50 ml 06/30/24 03:02 Dextrose 50%-Water Inj 50 Ml Syringe IV 07/30/24 03:01 Q15MIN PRN BG <50 OR BG <70 & pt unresponsive Glucagon 1 mg 06/30/24 03:02 Glucagon Inj 1 Mg Vial IM Q15MIN PRN BG <70, and no IV access Heparin Sodium (Porcine) 5,000 unit 07/01/24 11:30 07/03/24 09:52 Heparin Sod Inj 5000 Unit/Ml Vial SC 07/15/24 11:29 5,000 unit Q12HR AMARJIT Administration Insulin Human Lispro 0 unit 07/02/24 11:30 07/03/24 05:08 Insulin Lispro (Admelog) 1 Unit/0.01 Ml Unit SC 08/01/24 11:29 Not Given Q6H AMARJIT Protocol Lactulose 20 gm 06/30/24 03:04 Lactulose Syrup 20 Gm/30 Ml Udc PO 07/30/24 08:59 QDAY PRN Constipation Protocol Lansoprazole 30 mg 06/30/24 09:00 07/03/24 09:52 Lansoprazole 30 Mg Tab.Rap. GT 07/30/24 08:59 30 mg QDAY MAARJIT Administration Levofloxacin 500 mg 07/03/24 10:15 07/03/24 11:00 Levofloxacin 250 Mg Tablet GT 07/10/24 10:14 500 mg Q48H AMARJIT Administration Magnesium Hydroxide 30 ml 06/30/24 02:29 Milk Of Magnesia Susp 30 Ml Udc PO 07/30/24 02:28 QDAY PRN CONSTIPATION Protocol Pharmacy Consult 1 each 06/30/24 09:00 Pharmacy Renal Dose Adjustment 1 Ea XX 07/30/24 08:59 QDAY PRN CONSULT Sodium Chloride 3 ml 06/30/24 03:27 Sodium Chloride Rt Viviana 0.9% 3 Ml Nebu INH 07/30/24 03:26 PRN PRN SOLN Sodium Chloride 1 gm 07/03/24 10:30 07/03/24 11:00 Sodium Chloride 1 Gm Tablet GT 08/02/24 10:29 1 gm BID AMARJIT Administration Plan Monisha Guaman is an 83-year-old female with past medical history of multiple strokes leading to chronic trach and PEG and resides at subacute center, seizure disorder, atrial fibrillation on amiodarone and eliquis, HFpEF (EF 55-60% on 04/2024), malignant pleural effusions on Pleurx catheter, DVT, hypertension, and type 2 diabetes mellitus who presented on 06/30 for bradycardia. Cardiology consulted for bradycardia, HFpEF, and history of atrial fibrillation. #Bradycardia, resolved #History of A-fib on amiodarone and Eliquis #History of DVT Initially presented with heart rate in 40s-50s while noted to be on metoprolol and amiodarone. However, also noted to have initial potassium of 6.5 with associated EKG changes, such as prolonged QRS complexes and peaked T waves in leads V3, V4, and II, which may be primary etiology of patient's bradycardia in setting of amiodarone and metoprolol. Lower suspicion that amiodarone and/or metoprolol are cause of bradycardia given that patient has been on these medications since being admitted to [facility] in March. Hyperkalemia itself suspected to be due to prerenal CELESTINO in setting of GI losses (lactulose) and renal losses (lasix). Noted that lasix leads to hypokalemia but renal injury in and of itself may have led to abnormal electrolyte balance, including hyperkalemia, which may have caused sinus bradycardia as mentioned above. At this time, recommend to continue with amiodarone, hold metoprolol, and to give lasix as PRN (see #HFpEF below). [id number] score: 8, 10.8% % risk of stroke per year HAS-BLED score: 3, high risk of major bleeding ? Continue amiodarone 200 mg daily ? Once no more procedures are planned, consider restarting eliquis given that hemoglobin stable, no signs of active bleeding, FOBT negative, and patient's history of DVT #HFpEF (EF 55 to 60% 04/2024) BNP > 1000 upon admission. Echo 04/2024: LV appears normal with EF 55-60%, grade II diastolic dysfunction. RVSP 45 mmHg. Mod-severe MR, mild MAC, mild-moderate TR. Noted to have rx of lasix 20 mg and metoprolol tartrate 25 mg ? Hold metoprolol; if heart rate increases, can start at 12.5 mg via GT BID ? Recommend to change lasix Rx from scheduled to as needed if patient is fluid overloaded #Severe hypoosmolar hyponatremia #Acute kidney injury, resolved #Hyperkalemia, resolved #Urinary tract infection #Pneumonia #Parapneumonic effusion #[place]acral decubitus ulcer #Chronic respiratory failure status post tracheostomy #PEG tube Feeding #Normocytic normochromic anemia #Diabetes mellitus type 2 #Constipation #Multiple CVA by history #Seizure disorder by history #Hypokalemia, resolved #Hypocalcemia, resolved #Lactic acidosis, resolved ? Continue management per primary team and other consultants ----- Plan discussed with attending physician Dr. Ismael Trejo MD PGY-1 Internal Medicine Attending Provider Attestation/Addendum I have personally seen and examined the patient separately on the above date of service and discussed the plan of care with the resident. I reviewed the resident Dr. Woo Trejo consultation progress note and agree with the resident findings and plan in the note above and have also edited the documentation to reflect my findings and plan. Alfa Guevara M.D. Interventional Cardiology
--- NOTE | 2024-07-03 14:44 | PD.RESPRO ---
Documentation for date of: 07/03/24 Subjective Subjective Interval history: Patient seen and examined at bedside. Patient sodium has improved remarkably, started on salt tablets twice daily by nephrology. Patient will be started on amiodarone 200 mg per cardiology recommendations. Will hold Eliquis considering patient has pending ultrasound-guided thoracentesis. Patient is pending ultrasound-guided thoracentesis, scheduled for AM Pending goals of care discussion with patient's family regarding long-term prognosis and treatment options. Patient has no overnight fevers, is on PEG tube feeding and mechanical ventilation. Exam Vital Signs Temp Pulse Resp BP Pulse Ox O2 Del Method FiO2 97.2 F 70 20 153/63 H 100 Mechanical Ventilation 45 07/03/24 08:00 07/03/24 14:21 07/03/24 08:00 07/03/24 14:21 07/03/24 14:21 07/03/24 08:00 07/03/24 14:21 Narrative Exam General: alert, nonverbal, chronically ill-appearing, moves upper extremities spontaneously HEENT: tracheostomy in place on mechanical ventilation, NC/AT, mucous membranes moist, bilateral sclera anicteric Cardiovascular: regular rate and rhythm, S1/S2 present, no murmurs appreciated Pulmonary: bronchial breath sounds ausculated bilaterally, Plerx catheter in place Abdominal: soft, non-tender, non-distended, no rebound/guarding, normal bowel sounds present Musculoskeletal: muscle wasting noted in lower extremities, trace BLE pitting edema Skin: decubitus ulcer in sacrum Neuro: alert, nonverbal at baseline, able to move upper extremities spontaneously Objective Labs 07/04/24 04:27 07/04/24 04:27 Labs: Laboratory Results - last 24 hr 06/30/24 07/03/24 01:01 04:41 WBC 13.8 H RBC 3.12 L Hgb 8.7 L Hct 26.1 L MCV 84 MCH 27.9 MCHC 33.3 RDW Std Deviation 47.7 H Plt Count 424 Neut % (Auto) 85 H Lymph % (Auto) 6 L [place] % (Auto) 8 Eos % (Auto) 1 Baso % (Auto) 0 Neut # (Auto) 11.7 H Lymph # (Auto) 0.8 L Caroline # (Auto) 1.1 H Eos # (Auto) 0.1 Baso # (Auto) 0.0 Immature Gran # (Auto) 0.09 H Absolute Nucleated RBC 0.00 Immature Gran % 1 H Nucleated RBC % 0 Sodium 127 L Potassium 4.0 Chloride 89 L Carbon Dioxide 30.5 Anion Gap 8 BUN 42 H Creatinine 1.0 Estim Creat Clear Calc 32.2 L eGFR 56 L BUN/Creatinine Ratio 42 H Glucose 146 H Calculated Osmolality 268 L Calcium 8.1 L Corrected Calcium 9.1 Total Bilirubin 0.5 AST 26 ALT 28 Alkaline Phosphatase 106 Total Protein 6.1 Albumin 2.8 L Globulin 3.3 Albumin/Globulin Ratio 0.8 L Crossmatch See Detail ABG Interpretation ABG results: 06/29/24 06/30/24 22:53 07:24 ABG pH 7.51 H ABG pCO2 42 ABG pO2 54 L* ABG HCO3 34 H ABG O2 Saturation 91 ABG Base Excess 10 H VBG pH 7.54 VBG pCO2 34 L VBG pO2 57 VBG Base Excess 6 H Quality Measures Quality Measures sepsis Current suspected stage: ruled out Possible source: pulmonary and genitourinary Blood cultures ordered: yes Antibiotic ordered: Yes Advance care planning discussed with:: patient Assessment & Plan Assessment Current Active Medications: Generic Name Dose Route Start Last Admin Trade Name Freq PRN Reason Stop Dose Admin Al Hydrox/Mg Hydrox/Simethicone 30 ml 06/30/24 02:29 Mg Hyd/Al Hyd/[place] (Maalox Reg) Susp 30 Ml Udc PO 07/30/24 02:28 Q4HR PRN Heartburn or Upset Stomach Albuterol/Ipratropium 3 ml 06/30/24 02:34 Albuterol/Ipratropium (Duoneb) Rt Viviana 3 Ml Nebu INH 07/30/24 02:33 Q2HR PRN SHORTNESS OF BREATH OR WHEEZE Amiodarone HCl 200 mg 07/03/24 10:15 07/03/24 11:00 Amiodarone Hcl 200 Mg Tablet GT 08/02/24 10:14 200 mg QDAY AMARJIT Administration Atorvastatin Calcium 80 mg 06/30/24 21:00 07/02/24 20:16 Atorvastatin Calcium 20 Mg Tablet GT 07/30/24 20:59 80 mg HS AMARJIT Administration Cadexomer Iodine 0 gm 07/02/24 21:00 07/02/24 20:19 Cadexomer Iodine Gel 40 Gm Tube TOP 07/09/24 20:59 1 applicatio HS AMARJIT Administration Dextrose 25 ml 06/30/24 03:02 Dextrose 50%-Water Inj 50 Ml Syringe IV 07/30/24 03:01 Q15MIN PRN BG 50-70 responsive npo pt Dextrose 50 ml 06/30/24 03:02 Dextrose 50%-Water Inj 50 Ml Syringe IV 07/30/24 03:01 Q15MIN PRN BG <50 OR BG <70 & pt unresponsive Glucagon 1 mg 06/30/24 03:02 Glucagon Inj 1 Mg Vial IM Q15MIN PRN BG <70, and no IV access Heparin Sodium (Porcine) 5,000 unit 07/01/24 11:30 07/03/24 09:52 Heparin Sod Inj 5000 Unit/Ml Vial SC 07/15/24 11:29 5,000 unit Q12HR AMARJIT Administration Insulin Human Lispro 0 unit 07/02/24 11:30 07/03/24 11:42 Insulin Lispro (Admelog) 1 Unit/0.01 Ml Unit SC 08/01/24 11:29 Not Given Q6H AMARJIT Protocol Lactulose 20 gm 06/30/24 03:04 Lactulose Syrup 20 Gm/30 Ml Udc PO 07/30/24 08:59 QDAY PRN Constipation Protocol Lansoprazole 30 mg 06/30/24 09:00 07/03/24 09:52 Lansoprazole 30 Mg Tab.Rap. GT 07/30/24 08:59 30 mg QDAY AMARJIT Administration Levofloxacin 500 mg 07/03/24 10:15 07/03/24 11:00 Levofloxacin 250 Mg Tablet GT 07/10/24 10:14 500 mg Q48H AMARJIT Administration Magnesium Hydroxide 30 ml 06/30/24 02:29 Milk Of Magnesia Susp 30 Ml Udc PO 07/30/24 02:28 QDAY PRN CONSTIPATION Protocol Pharmacy Consult 1 each 06/30/24 09:00 Pharmacy Renal Dose Adjustment 1 Ea XX 07/30/24 08:59 QDAY PRN CONSULT Sodium Chloride 3 ml 06/30/24 03:27 Sodium Chloride Rt Viviana 0.9% 3 Ml Nebu INH 07/30/24 03:26 PRN PRN SOLN Sodium Chloride 1 gm 07/03/24 10:30 07/03/24 11:00 Sodium Chloride 1 Gm Tablet GT 08/02/24 10:29 1 gm BID AMARJIT Administration Plan Assessment and plan: Summary: Ms. Guaman is a 83-year-old female patient with past medical history of multiple CVA, seizure disorder, atrial fibrillation, hypertension, type 2 diabetes mellitus, nonverbal status post tracheostomy and PEG tube placement who presented to [facility] emergency department on 06/30/2024 from subacute with chief complaint of bradycardia. Patient was found to have severe hypoosmolar hyponatremia, overcorrected with hypertonic saline and patient was admitted to ICU for further management. Patient downgraded on 07/02/2024 to telemetry for further management. #Severe hypoosmolar hyponatremia #Acute kidney injury, resolved #Hyperkalemia, resolved Patient presented initially with sodium 115, was started on hypertonic saline in the emergency department, patient sodium overcorrected and hence nephrology was consulted, patient was started on desmopressin and D5W. Sodium is stable today, sodium level 127 Plan: -Started on salt tablets twice daily through G-tube -Will hold desmopressin and D5W for now -Follow renal panel in a.m. -Continue free water flushes per nephrology - Nephrology consulted, appreciate recommendations #Sepsis secondary to #Urinary tract infection #Pneumonia #Parapneumonic effusion #Sacral decubitus ulcer #Chronic respiratory failure status post tracheostomy Patient on presentation was bradycardic, was found to have urinary tract infection UA significant for rare bacteria, WBC 121, leukocyte esterase positive nitrite negative was started on IV antibiotics in the emergency department. Lactate was positive. Chest x-ray was significant for possible superimposed pneumonia, does have extensive pleural parenchymal disease. Patient was hypotensive at times in the intensive care unit, was never started on pressor support. Patient does also have a sacral decubitus ulcer. Blood culture urine culture negative, sputum culture does show few GPC, high probability of colonization. Plan: -Continue Levaquin -Monitor vitals closely -Patient does have Pleurx cath in place, unable to drain from catheter patient is scheduled for IR ultrasound guided thoracentesis. -N.p.o. after midnight -Scheduled for ultrasound-guided thoracentesis in a.m. -Continue mechanical ventilation, SIMV mode #Bradycardia, resolved #Heart failure with preserved ejection fraction EF 55 to 60% #Atrial fibrillation Patient's BNP was elevated at 1037 on presentation, patient was hypovolemic on presentation, and EKG in the emergency department showed sinus bradycardia with heart rate in 50s repeat EKG showed improvement of heart rate. Patient has good chronotropic response and heart rate improved with the progression of hospital course. [id number] score 7 points indicating 11.2% risk of stroke per year Has-bled score of 2 points indicating moderate risk of major bleeding Plan: -Will continue to hold amiodarone -Patient not on any anticoagulation currently -Will consult cardiology, appreciate recommendations #PEG tube Feeding - Patient is currently on tube feeding, continue - N.p.o. after midnight #Normocytic normochromic anemia Patient came with hemoglobin of 6.6, was given 1 unit PRBC - Follow CBC in a.m. #Diabetes mellitus type 2 - Sliding scale insulin #Constipation Patient has rectal tube intact, constipation resolved #Multiple CVA by history #Seizure disorder by history #Hypokalemia-resolved #Hypocalcemia resolved #Lactic acidosis resolved DVT prophylaxis: Heparin 5000 every 12 hours GI prophylaxis: Lansoprazole Diet: PEG tube feeds Lines: Peripheral IV Code status: DNR/DNI Case discussed with Attending Dr. Figueroa and Dr. Judd PGY2. Carl Fitzgerald PGY1 Disclaimer: This note was dictated by speech recognition. Minor errors in ux ui designer may be present due to voice recognition software. Attending Provider Attestation/Addendum I reviewed labs, imaging, EKG, home medications and prior available records. Face to face evaluation was performed by me. I have personally examined the patient and discussed assessment and plan with the IM team. I reviewed the resident note and agree with the plan with exceptions as below. Acute hypotension, resolved Sinus bradycardia, resolved Hyponatremia, resolved Sepsis Hospital-acquired pneumonia Pleural effusion CELESTINO, resolved Sodium improved. Discussed with nephrology: Started Bicitra Continue to monitor BMP Heart rate is stable. Discussed with cardiology: Resumed amiodarone. Continue to hold metoprolol Monitor kidney function: Creatinine improved and back to baseline Avoid nephrotoxins. Renally dosed medications Continue levofloxacin Consulted IR for pleurocentesis: Plan for pleurocentesis on 07/04 Will discuss goals of care with family
--- NOTE | 2024-07-03 16:23 | PC.SS ---
Update: Patient is Trach/PEG. Patient is not receiving pressor support nor is patient sedated. Patient has been downgraded from ICU to Med/Surg.
--- NOTE | 2024-07-03 20:06 | PC.NURSE ---
VERIFIED WITH DR. PASCUAL COSTELLO TO GIVE HEPARIN SQ TONIGHT SCHEDULED.
[2024-07-03] MEDS: CADEXOMER IODINE GEL 40 GM TUBE TOP (20:12)
[2024-07-03] MEDS: ATORVASTATIN CALCIUM 20 MG TABLET 80 MG GT (20:12)
[2024-07-04] VITALS (10 sets, daily range): BP systolic 106–139; BP diastolic 50–63; PULSE 72–96; RESP 17–31; TEMP 36.1–36.9; O2SAT 98–100; BMI 22.9
[2024-07-04 05:16] LABS: Basophils % (Auto) 0 % (0-2.5); Eosinophils # (Auto) 0.1 Thou/mm3 (0.0-0.5); Eosinophils % (Auto) 1 % (0-10); Hematocrit 23.8 % (36.0-46.0); Immature Granulocytes % (Auto) 1 % (0-0); Immature Granulocytes Auto 0.08 Thou/mm3 (0.00-0.00); Lymphocytes # (Auto) 0.6 Thou/mm3 (1.0-4.8); Lymphocytes % (Auto) 5 % (10-50); Mean Corpuscular HGB Conc 33.2 g/dl (31.0-37.0); Mean Corpuscular Hemoglobin 27.2 pg (25.0-35.0); Mean Corpuscular Volume 82 fL (80-100); Monocytes # (Auto) 0.9 Thou/mm3 (0.0-0.8); Monocytes % (Auto) 7 % (0-12); Neutrophils # (Auto) 10.6 Thou/mm3 (1.8-7.7); Neutrophils % (Auto) 86 % (37-80); Nucleated Red Blood Cell % 0 /100 WBC (0); Platelet Count 460 Thou/mm3 (140-440); RDW Standard Deviation 46.9 fL (36.4-46.3); White Blood Count 12.3 Thou/mm3 (3.6-11.0)
[2024-07-04 05:29] LABS: Hemoglobin 7.9 g/dL (12.0-16.0)
[2024-07-04 05:38] LABS: Alanine Aminotransferase 21 U/L (10-49); Albumin, Serum 2.6 gm/dL (3.4-4.8); Albumin/Globulin Ratio 0.8 (1.2-2.2); Alkaline Phosphatase 82 U/L (46-116); Anion Gap 7 (7-16); Aspartate Amino Transferase 19 U/L (0-34); BUN/Creatinine Ratio 40 Ratio (12-20); Bilirubin,Total 0.5 mg/dL (0.3-1.2); Blood Urea Nitrogen 36 mg/dL (9-23); Calcium 7.9 mg/dL (8.3-10.6); Carbon Dioxide 30.9 mMol/L (20.0-31.0); Chloride 93 mMol/L (98-107); Creatinine (Component) 0.9 mg/dL (0.6-1.3); Estimated Creatinine Clearance 35.7 mL/min (>60); Globulin 3.1 gm/dL (2.3-3.5); Glucose 106 mg/dL (74-106); Osmolality,Calculated 270 (275-295); Potassium 3.9 mMol/L (3.4-5.1); Sodium 131 mMol/L (136-145); Total Protein 5.7 gm/dL (5.7-8.2); eGFR > 60 See Note
--- NOTE | 2024-07-04 06:00 | XR_ITS ---
Examination: Ultrasound right hemithorax Ultrasound left hemithorax Exam date and time: July 04, 2024 0157 hrs. Indications: Difficulty breathing this week, bilateral pleural parenchymal disease on chest x-ray July 02, 2024 Technique And Findings: Sonographic images right and left hemithoraces Loculated moderate right pleural disease Moderate left pleural disease Impression: Complex right pleural fluid, moderate Moderate left pleural disease
--- NOTE | 2024-07-04 06:36 | ESPR_ITS ---
Documentation for date of: 07/04/24 Subjective Subjective Interval history: This is an 83-year-old female with chronic tracheotomy and PEG tube following multiple strokes, seizure disorder, A-fib, HTN, T2DM, 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 Patient nonverbal. HPI collected from chart review. Evidently she was on ANTIBIOTIC for UTI. She presented with BP 134/64, HR 46, RR 32, afebrile, on mechanical ventilation. Labs showed sodium 115, potassium 6.5, serum osmole 259, chloride 77, BUN/CR 76/1.8, GLUCOSE 177, lactic acid 2.2, BNP 1037, H/H 6.9/19.6. ABG showed pH 7.51, PO254, bicarb 30.9. UA showed WBC 129, positive LE and rare bacteria. EKG showed sinus bradycardia without T wave abnormalities. Unable to assess mentation or baseline secondary to AMS which is baseline for her. In the ED, her initial vitals were blood pressure of 134/64, pulse 46, respiratory rate 32, temperature 98.0, saturating well on mechanical ventilator with 43% FiO2 which is her baseline at the subacute. Lab results are significant for WBC of 16.7, hemoglobin/hematocrit of 6.6/19.6, sodium 115, potassium 6.5, chloride 77, BUN/creatinine 76/1.8, glucose 177, osmolality 259, lactic acid 2.2, BNP 1037, procalcitonin 0.96. ABG was obtained which shows pH of 7.51, PO2 of 54, bicarb from CHEM panel was 30.9. Urinalysis shows 121 WBCs, positive leukocyte esterase and rare bacteria. As per patient's RN, the Hector catheter appears recently exchanged. Initially she was given 2 L NS boluses and started on 3% hypertonic. Sodium corrected from 123 to 127. Currently 3% hypertonic was discontinued. Potassium 5.2. Also given KAYEXALATE and, ALBUTEROL and CALCIUM GLUCONATE, potassium improved to 5.2. Patient currently in ICU. Nephrology was consulted for management of CELESTINO. Recommendations as listed below. 07/01/2024 patient currently seen in ICU. Remains nonverbal. Opens her eyes but do not track. Overnight no acute events. Blood pressure 138/60, heart rate 72. WBC 12.5, hemoglobin 7.8, platelets 401.Sodium 126, potassium 3.5, BUN 46, creatinine 1.2, glucose 144, calcium 9.5, LFTs normal, albumin 2.6. Patient currently on desmopressin and D5W. Noted to have good urine output. 07/02/2024 examined at bedside in ICU. Remains nonverbal, opens eyes spontaneously, does not track. No overnight events. BP 134/60, HR 72. Leukocytosis resolved. Hgb stable 8.0. CR normal. Sodium 127, stable.will discontinue DESMOPRESSIN. Urine output normal. 07/03/2024 examined at bedside in ICU. Hemodynamically stable. Mental status appears at baseline. Appears comfortable without signs of distress. Plan to downgrade Q2H for today. Sodium remains 127. Will salt tablets BID. 07/04/2024 exmained at bedside, on tele. Appears at baseline. Sodium 131. WBC 12.3, Hgb 7.9, PLT 460. Urine output was 1250 cc overnight. Has significant edema in all extremities. Appears to have soft/watery stool. Exam Vital Signs Temp Pulse Resp BP Pulse Ox O2 Del Method FiO2 97.0 F 78 26 H 119/50 L 100 Trach Collar 40 07/04/24 04:00 07/04/24 04:00 07/04/24 04:00 07/04/24 04:00 07/04/24 04:00 07/03/24 18:00 07/04/24 04:00 Narrative Exam GENERAL APPEARANCE: Elderly frail lady currently seen in ICU Status post trach and on vent NECK: Neck supple, no JVD or bruit CARDIOVASCULAR: Heart regular, no murmurs LUNGS/CHEST: Bilateral rhonchi noted ABDOMEN: Soft, nontender, nondistended. No masses. Normal bowel sounds. ++ Feeding tube EXTREMITIES: 2+ edema in the lower and upper extremities SKIN: Dry skin MUSCULOSKELETAL: Patient seems to be in bed with contractures NEUROLOGICAL : Barely arousable Objective Labs 07/05/24 14:57 07/05/24 04:37 Labs: Laboratory Results - last 24 hr 07/04/24 04:27 WBC 12.3 H RBC 2.90 L Hgb 7.9 L Hct 23.8 L MCV 82 MCH 27.2 MCHC 33.2 RDW Std Deviation 46.9 H Plt Count 460 H D Neut % (Auto) 86 H Lymph % (Auto) [address] [place] % (Auto) 7 Eos % (Auto) 1 Baso % (Auto) 0 Neut # (Auto) 10.6 H Lymph # (Auto) 0.[address] [place] # (Auto) 0.9 H Eos # (Auto) 0.1 Baso # (Auto) 0.0 Immature Gran # (Auto) 0.08 H Absolute Nucleated RBC 0.00 Immature Gran % 1 H Nucleated RBC % 0 Sodium 131 L Potassium 3.9 Chloride 93 L Carbon Dioxide 30.9 Anion Gap 7 BUN 36 H Creatinine 0.9 Estim Creat Clear Calc 35.7 L eGFR > 60 BUN/Creatinine Ratio 40 H Glucose 106 Calculated Osmolality 270 L Calcium 7.9 L Corrected Calcium 9.0 Total Bilirubin 0.5 AST 19 ALT 21 Alkaline Phosphatase 82 D Total Protein 5.7 Albumin 2.6 L Globulin 3.1 Albumin/Globulin Ratio 0.8 L ABG Interpretation ABG results: 06/29/24 06/30/24 22:53 07:24 ABG pH 7.51 H ABG pCO2 42 ABG pO2 54 L* ABG HCO3 34 H ABG O2 Saturation 91 ABG Base Excess 10 H VBG pH 7.54 VBG pCO2 34 L VBG pO2 57 VBG Base Excess 6 H Quality Measures Quality Measures sepsis Current suspected stage: sepsis Possible source: pulmonary and genitourinary Blood cultures ordered: yes Antibiotic ordered: Yes Advance care planning discussed with:: patient Assessment & Plan Assessment Current Active Medications: Generic Name Dose Route Start Last Admin Trade Name Freq PRN Reason Stop Dose Admin Al Hydrox/Mg Hydrox/Simethicone 30 ml 06/30/24 02:29 Mg Hyd/Al Hyd/[place] (Maalox Reg) Susp 30 Ml Udc PO 07/30/24 02:28 Q4HR PRN Heartburn or Upset Stomach Albuterol/Ipratropium 3 ml 06/30/24 02:34 Albuterol/Ipratropium (Duoneb) Rt Viviana 3 Ml Nebu INH 07/30/24 02:33 Q2HR PRN SHORTNESS OF BREATH OR WHEEZE Amiodarone HCl 200 mg 07/03/24 10:15 07/03/24 11:00 Amiodarone Hcl 200 Mg Tablet GT 08/02/24 10:14 200 mg QDAY AMARJIT Administration Atorvastatin Calcium 80 mg 06/30/24 21:00 07/03/24 20:12 Atorvastatin Calcium 20 Mg Tablet GT 07/30/24 20:59 80 mg HS AMARJIT Administration Cadexomer Iodine 0 gm 07/02/24 21:00 07/03/24 20:12 Cadexomer Iodine Gel 40 Gm Tube TOP 07/09/24 20:59 1 applicatio HS AMARJIT Administration Dextrose 25 ml 06/30/24 03:02 Dextrose 50%-Water Inj 50 Ml Syringe IV 07/30/24 03:01 Q15MIN PRN BG 50-70 responsive npo pt Dextrose 50 ml 06/30/24 03:02 Dextrose 50%-Water Inj 50 Ml Syringe IV 07/30/24 03:01 Q15MIN PRN BG <50 OR BG <70 & pt unresponsive Glucagon 1 mg 06/30/24 03:02 Glucagon Inj 1 Mg Vial IM Q15MIN PRN BG <70, and no IV access Heparin Sodium (Porcine) 5,000 unit 07/01/24 11:30 07/03/24 20:11 Heparin Sod Inj 5000 Unit/Ml Vial SC 07/15/24 11:29 5,000 unit Q12HR AMARJIT Administration Insulin Human Lispro 0 unit 07/02/24 11:30 07/03/24 23:47 Insulin Lispro (Admelog) 1 Unit/0.01 Ml Unit SC 08/01/24 11:29 Not Given Q6H AMARJIT Protocol Lactulose 20 gm 06/30/24 03:04 Lactulose Syrup 20 Gm/30 Ml Udc PO 07/30/24 08:59 QDAY PRN Constipation Protocol Lansoprazole 30 mg 06/30/24 09:00 07/03/24 09:52 Lansoprazole 30 Mg Tab.Rap. GT 07/30/24 08:59 30 mg QDAY AMARJIT Administration Levofloxacin 500 mg 07/03/24 10:15 07/03/24 11:00 Levofloxacin 250 Mg Tablet GT 07/10/24 10:14 500 mg Q48H AMARJIT Administration Magnesium Hydroxide 30 ml 06/30/24 02:29 Milk Of Magnesia Susp 30 Ml Udc PO 07/30/24 02:28 QDAY PRN CONSTIPATION Protocol Pharmacy Consult 1 each 06/30/24 09:00 Pharmacy Renal Dose Adjustment 1 Ea XX 07/30/24 08:59 QDAY PRN CONSULT Sodium Chloride 3 ml 06/30/24 03:27 Sodium Chloride Rt Viviana 0.9% 3 Ml Nebu INH 07/30/24 03:26 PRN PRN SOLN Sodium Chloride 1 gm 07/03/24 10:30 07/03/24 20:12 Sodium Chloride 1 Gm Tablet GT 08/02/24 10:29 1 gm BID AMARJIT Administration Plan 83-year-old female with chronic tracheotomy and PEG tube following multiple strokes, seizure disorder, A-fib, HTN, T2DM, 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 Found to have severe hyponatremia, hyperkalemia and CELESTINO. Sodium 131 today. Will continue with salt tablets BID. Hypotonic, hypervolemic hyponatremia Sodium stable at 131 today. ? Started tablets BID to PEG tube ? Continue sodium checks CELESTINO, likely pre-renal (resolved) Likely due to hypoperfusion from sepsis, fluid shifts, or renal vasoconstriction Previously normal renal function, presenting with CR 1.8, BUN 66, and EGFR 28. Creatinine markedly improved with fluids. ? Renally dose meds, avoid overdiuresis and NEPHROTOXINS ? Daily CMP Hypokalemia (resolved) replace KCL UTI Has been on outpatient ANTIBIOTICS for UTI. UA suggest UTI. ? Continue ANTIBIOTICS per primary team. Bradycardia Sinus bradycardia on EKG. Recurrent bradycardia per chart review. Possibly related to AMIODARONE which is currently on hold. Less likely d/t hyperkalemia, no related EKG abnormalities. ? Managed by primary team Lactic acidosis, type I versus type II (resolved) Possibly in setting of sepsis versus poor clearance. ? Managed by primary team History of multiple strokes History of seizure disorder Patient nonverbal at baseline History of A-fib History of hypertension Bilateral pneumonia Acute normocytic anemia Leukocytosis Sepsis UTI Pneumonia Decubitus ulcer Concern for osteomyelitis Constipation PEG tube feeding ? Managed by primary team Patient case was discussed with attending, Dr. Babin. Ed Solorio DO PGYI Attending Provider Attestation/Addendum Patient seen and examined with resident physician Dr. Ward. Note reviewed, agree with findings and recommendations. Sodium seems to be better with salt tablets. Noted to have rectal tube. Will monitor bicarbonate /electrolytes closely. Noted she might need thoracentesis for bilateral pleural effusions. S/p trach and PEG.
--- NOTE | 2024-07-04 10:24 | PC.SS ---
Follow up note: Dr. Fitzgerald is requesting a goals of care meeting with family in person or by phone. SS has called patient's son, Rashel Her, phone# [phone] who explained he prefers phone discussion anytime before 1pm. has informed Dr. Fitzgerald and provided him with Son's phone#. Per Dr. Berkowitz he will contact son, Rashel.
--- NOTE | 2024-07-04 10:30 | PC.SS ---
Pt is from [facility] and will return upon dc.
--- NOTE | 2024-07-04 10:35 | PD.RESPRO ---
Documentation for date of: 07/04/24 Subjective Subjective Interval history: No acute overnight events noted. Seen and examined at bedside. Patient is nonverbal but is alert and was able to move her RUE when asked to give a thumbs-up. Otherwise, vital signs stable, on mechanical ventilation now at 40% FiO2 saturating 99%. Telemetry reviewed and heart rate in 70s in normal sinus rhythm. Labs show WBC 12.3, hemoglobin 7.9, Na 131, K 3.9. Continue with amiodarone 200 mg daily and if heart rate increases can start metoprolol 12.5 mg BID, and if fluid overloaded can give lasix prn of 20 mg only. Exam Vital Signs Temp Pulse Resp BP Pulse Ox O2 Del Method FiO2 97.7 F 79 17 128/62 99 Mechanical Ventilation 40 07/04/24 08:00 07/04/24 08:00 07/04/24 08:00 07/04/24 08:00 07/04/24 08:00 07/04/24 08:00 07/04/24 08:00 Narrative Exam General: alert, nonverbal, chronically ill-appearing, moves upper extremities spontaneously, can follow some commands HEENT: tracheostomy in place on mechanical ventilation, NC/AT, mucous membranes moist, bilateral sclera anicteric Cardiovascular: regular rate and rhythm, S1/S2 present, no murmurs appreciated Pulmonary: bronchial breath sounds ausculated bilaterally, Pleurx catheter in place Abdominal: soft, non-tender, non-distended, no rebound/guarding, normal bowel sounds present Musculoskeletal: muscle wasting noted in lower extremities, trace BLE pitting edema Skin: decubitus ulcer in sacrum Neuro: alert, opens eyes to voice, nonverbal at baseline, able to move upper extremities spontaneously, follows some commands Objective Labs 07/04/24 04:27 07/04/24 04:27 Labs: Laboratory Results - last 24 hr 07/04/24 04:27 WBC 12.3 H RBC 2.90 L Hgb 7.9 L Hct 23.8 L MCV 82 MCH 27.2 MCHC 33.2 RDW Std Deviation 46.9 H Plt Count 460 H D Neut % (Auto) 86 H Lymph % (Auto) 5 L [place] % (Auto) 7 Eos % (Auto) 1 Baso % (Auto) 0 Neut # (Auto) 10.6 H Lymph # (Auto) 0.6 L [place] # (Auto) 0.9 H Eos # (Auto) 0.1 Baso # (Auto) 0.0 Immature Gran # (Auto) 0.08 H Absolute Nucleated RBC 0.00 Immature Gran % 1 H Nucleated RBC % 0 Sodium 131 L Potassium 3.9 Chloride 93 L Carbon Dioxide 30.9 Anion Gap 7 BUN 36 H Creatinine 0.9 Estim Creat Clear Calc 35.7 L eGFR > 60 BUN/Creatinine Ratio 40 H Glucose 106 Calculated Osmolality 270 L Calcium 7.9 L Corrected Calcium 9.0 Total Bilirubin 0.5 AST 19 ALT 21 Alkaline Phosphatase 82 D Total Protein 5.7 Albumin 2.6 L Globulin 3.1 Albumin/Globulin Ratio 0.8 L ABG Interpretation ABG results: 06/29/24 06/30/24 22:53 07:24 ABG pH 7.51 H ABG pCO2 42 ABG pO2 54 L* ABG HCO3 34 H ABG O2 Saturation 91 ABG Base Excess 10 H VBG pH 7.54 VBG pCO2 34 L VBG pO2 57 VBG Base Excess 6 H Quality Measures Quality Measures sepsis Current suspected stage: ruled out Possible source: pulmonary and genitourinary Blood cultures ordered: yes Antibiotic ordered: Yes Advance care planning discussed with:: patient Assessment & Plan Assessment Current Active Medications: Generic Name Dose Route Start Last Admin Trade Name Freq PRN Reason Stop Dose Admin Al Hydrox/Mg Hydrox/Simethicone 30 ml 06/30/24 02:29 Mg Hyd/Al Hyd/[place] (Maalox Reg) Susp 30 Ml Udc PO 07/30/24 02:28 Q4HR PRN Heartburn or Upset Stomach Albuterol/Ipratropium 3 ml 06/30/24 02:34 Albuterol/Ipratropium (Duoneb) Rt Viviana 3 Ml Nebu INH 07/30/24 02:33 Q2HR PRN SHORTNESS OF BREATH OR WHEEZE Amiodarone HCl 200 mg 07/03/24 10:15 07/04/24 08:40 Amiodarone Hcl 200 Mg Tablet GT 08/02/24 10:14 Not Given QDAY AMARJIT Atorvastatin Calcium 80 mg 06/30/24 21:00 07/03/24 20:12 Atorvastatin Calcium 20 Mg Tablet GT 07/30/24 20:59 80 mg HS AMARJIT Administration Cadexomer Iodine 0 gm 07/02/24 21:00 07/03/24 20:12 Cadexomer Iodine Gel 40 Gm Tube TOP 07/09/24 20:59 1 applicatio HS AMARJIT Administration Dextrose 25 ml 06/30/24 03:02 Dextrose 50%-Water Inj 50 Ml Syringe IV 07/30/24 03:01 Q15MIN PRN BG 50-70 responsive npo pt Dextrose 50 ml 06/30/24 03:02 Dextrose 50%-Water Inj 50 Ml Syringe IV 07/30/24 03:01 Q15MIN PRN BG <50 OR BG <70 & pt unresponsive Glucagon 1 mg 06/30/24 03:02 Glucagon Inj 1 Mg Vial IM Q15MIN PRN BG <70, and no IV access Heparin Sodium (Porcine) 5,000 unit 07/01/24 11:30 07/04/24 08:41 Heparin Sod Inj 5000 Unit/Ml Vial SC 07/15/24 11:29 Not Given Q12HR AMARJIT Insulin Human Lispro 0 unit 07/02/24 11:30 07/04/24 07:28 Insulin Lispro (Admelog) 1 Unit/0.01 Ml Unit SC 08/01/24 11:29 Not Given Q6H AMARJIT Protocol Lactulose 20 gm 06/30/24 03:04 Lactulose Syrup 20 Gm/30 Ml Udc PO 07/30/24 08:59 QDAY PRN Constipation Protocol Lansoprazole 30 mg 06/30/24 09:00 07/04/24 08:40 Lansoprazole 30 Mg Tab. GT 07/30/24 08:59 Not Given QDAY AMARJIT Levofloxacin 500 mg 07/03/24 10:15 07/03/24 11:00 Levofloxacin 250 Mg Tablet GT 07/10/24 10:14 500 mg Q48H AMARJIT Administration Magnesium Hydroxide 30 ml 06/30/24 02:29 Milk Of Magnesia Susp 30 Ml Udc PO 07/30/24 02:28 QDAY PRN CONSTIPATION Protocol Pharmacy Consult 1 each 06/30/24 09:00 Pharmacy Renal Dose Adjustment 1 Ea XX 07/30/24 08:59 QDAY PRN CONSULT Sodium Chloride 3 ml 06/30/24 03:27 Sodium Chloride Rt Viviana 0.9% 3 Ml Nebu INH 07/30/24 03:26 PRN PRN SOLN Sodium Chloride 1 gm 07/03/24 10:30 07/04/24 08:40 Sodium Chloride 1 Gm Tablet GT 08/02/24 10:29 Not Given BID AMARJIT Plan Monisha Guaman is an 83-year-old female with past medical history of 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 Cardiology consulted for bradycardia, HFpEF, and history of atrial fibrillation. #Bradycardia, resolved #History of A-fib on amiodarone and Eliquis #History of DVT Initially presented with heart rate in 40s-50s while noted to be on metoprolol and amiodarone. However, also noted to have initial potassium of 6.5 with associated EKG changes, such as prolonged QRS complexes and peaked T waves in leads V3, V4, and II, which may be primary etiology of patient's bradycardia in setting of amiodarone and metoprolol. Lower suspicion that amiodarone and/or metoprolol are cause of bradycardia given that patient has been on these medications since being admitted to [facility] in March. Hyperkalemia itself suspected to be due to prerenal CELESTINO in setting of GI losses (lactulose) and renal losses (lasix). Noted that lasix leads to hypokalemia but renal injury in and of itself may have led to abnormal electrolyte balance, including hyperkalemia, which may have caused sinus bradycardia as mentioned above. At this time, recommend to continue with amiodarone, hold metoprolol, and to give lasix as PRN (see #HFpEF below). [id number] score: 8, 10.8% % risk of stroke per year HAS-BLED score: 3, high risk of major bleeding ? Continue amiodarone 200 mg daily ? Once no more procedures are planned, consider restarting eliquis given that hemoglobin stable, no signs of active bleeding, FOBT negative, and patient's history of DVT #HFpEF (EF 55 to 60% 04/2024) BNP > 1000 upon admission. Echo 04/2024: LV appears normal with EF 55-60%, grade II diastolic dysfunction. RVSP 45 mmHg. Mod-severe MR, mild MAC, mild-moderate TR. Noted to have rx of lasix 20 mg and metoprolol tartrate 25 mg ? Hold metoprolol; if heart rate increases, can start at 12.5 mg via GT BID ? Recommend to change lasix Rx from scheduled to as needed if patient is fluid overloaded #Severe hypoosmolar hyponatremia #Acute kidney injury, resolved #Hyperkalemia, resolved #Urinary tract infection #Pneumonia #Parapneumonic effusion #Sacral decubitus ulcer #Chronic respiratory failure status post tracheostomy #PEG tube Feeding #Normocytic normochromic anemia #Diabetes mellitus type 2 #Constipation #Multiple CVA by history #Seizure disorder by history #Hypokalemia, resolved #Hypocalcemia, resolved #Lactic acidosis, resolved ? Continue management per primary team and other consultants ----- Plan discussed with attending physician Dr. Ismael Trejo MD PGY-1 Internal Medicine Attending Provider Attestation/Addendum I have personally seen and examined the patient separately on the above date of service and discussed the plan of care with the resident. I reviewed the resident Dr. Woo Trejo consultation progress note and agree with the resident findings and plan in the note above and have also edited the documentation to reflect my findings and plan. Alfa Guevara M.D. Interventional Cardiology
--- NOTE | 2024-07-04 11:20 | ESPR_ITS ---
Documentation for date of: 07/04/24 Subjective Subjective Interval history: Patient seen and examined at bedside. Patient continues to have significant discharge from rectal tube, ordered C. difficile. Improvement in sodium levels noted, patient was started on salt tablets twice daily yesterday. Otherwise patient is stable, n.p.o. currently, tube feeds were held patient scheduled for ultrasound-guided thoracentesis today. Case was discussed with patient's son Mr. Kiser Her and he was updated regarding patient's hospitalization. Goals of care discussed with patient's son considering patient does have underlying malignancy, family would like a referral for hospice. Patient's son will visit facility on Tuesday, informed social insurance administrator, will follow-up. Exam Vital Signs Temp Pulse Resp BP Pulse Ox O2 Del Method FiO2 97.7 F 79 17 128/62 99 Mechanical Ventilation 40 07/04/24 08:00 07/04/24 08:00 07/04/24 08:00 07/04/24 08:00 07/04/24 08:00 07/04/24 08:00 07/04/24 08:00 Narrative Exam General: alert, nonverbal, chronically ill-appearing, moves upper extremities spontaneously HEENT: tracheostomy in place on mechanical ventilation, NC/AT, mucous membranes moist, bilateral sclera anicteric Cardiovascular: regular rate and rhythm, S1/S2 present, no murmurs appreciated Pulmonary: bronchial breath sounds ausculated bilaterally, Plerx catheter in place Abdominal: soft, non-tender, non-distended, no rebound/guarding, normal bowel sounds present Musculoskeletal: muscle wasting noted in lower extremities, trace BLE pitting edema Skin: decubitus ulcer in sacrum Neuro: alert, nonverbal at baseline, able to move upper extremities spontaneously Objective Labs 07/05/24 04:37 07/05/24 04:37 Labs: Laboratory Results - last 24 hr 07/04/24 04:27 WBC 12.3 H RBC 2.90 L Hgb 7.9 L Hct 23.8 L MCV 82 MCH 27.2 MCHC 33.2 RDW Std Deviation 46.9 H Plt Count 460 H D Neut % (Auto) 86 H Lymph % (Auto) 5 L [place] % (Auto) 7 Eos % (Auto) 1 Baso % (Auto) 0 Neut # (Auto) 10.6 H Lymph # (Auto) 0.6 L [place] # (Auto) 0.9 H Eos # (Auto) 0.1 Baso # (Auto) 0.0 Immature Gran # (Auto) 0.08 H Absolute Nucleated RBC 0.00 Immature Gran % 1 H Nucleated RBC % 0 Sodium 131 L Potassium 3.9 Chloride 93 L Carbon Dioxide 30.9 Anion Gap 7 BUN 36 H Creatinine 0.9 Estim Creat Clear Calc 35.7 L eGFR > 60 BUN/Creatinine Ratio 40 H Glucose 106 Calculated Osmolality 270 L Calcium 7.9 L Corrected Calcium 9.0 Total Bilirubin 0.5 AST 19 ALT 21 Alkaline Phosphatase 82 D Total Protein 5.7 Albumin 2.6 L Globulin 3.1 Albumin/Globulin Ratio 0.8 L ABG Interpretation ABG results: 06/29/24 06/30/24 22:53 07:24 ABG pH 7.51 H ABG pCO2 42 ABG pO2 54 L* ABG HCO3 34 H ABG O2 Saturation 91 ABG Base Excess 10 H VBG pH 7.54 VBG pCO2 34 L VBG pO2 57 VBG Base Excess 6 H Quality Measures Quality Measures sepsis Current suspected stage: ruled out Possible source: pulmonary and genitourinary Blood cultures ordered: yes Antibiotic ordered: Yes Advance care planning discussed with:: patient Assessment & Plan Assessment Current Active Medications: Generic Name Dose Route Start Last Admin Trade Name Freq PRN Reason Stop Dose Admin Al Hydrox/Mg Hydrox/Simethicone 30 ml 06/30/24 02:29 Mg Hyd/Al Hyd/[place] (Maalox Reg) Susp 30 Ml Udc PO 07/30/24 02:28 Q4HR PRN Heartburn or Upset Stomach Albuterol/Ipratropium 3 ml 06/30/24 02:34 Albuterol/Ipratropium (Duoneb) Rt Viviana 3 Ml Nebu INH 07/30/24 02:33 Q2HR PRN SHORTNESS OF BREATH OR WHEEZE Amiodarone HCl 200 mg 07/03/24 10:15 07/04/24 08:40 Amiodarone Hcl 200 Mg Tablet GT 08/02/24 10:14 Not Given QDAY AMARJIT Atorvastatin Calcium 80 mg 06/30/24 21:00 07/03/24 20:12 Atorvastatin Calcium 20 Mg Tablet GT 07/30/24 20:59 80 mg HS AMARJIT Administration Cadexomer Iodine 0 gm 07/02/24 21:00 07/03/24 20:12 Cadexomer Iodine Gel 40 Gm Tube TOP 07/09/24 20:59 1 applicatio HS AMARJIT Administration Dextrose 25 ml 06/30/24 03:02 Dextrose 50%-Water Inj 50 Ml Syringe IV 07/30/24 03:01 Q15MIN PRN BG 50-70 responsive npo pt Dextrose 50 ml 06/30/24 03:02 Dextrose 50%-Water Inj 50 Ml Syringe IV 07/30/24 03:01 Q15MIN PRN BG <50 OR BG <70 & pt unresponsive Glucagon 1 mg 06/30/24 03:02 Glucagon Inj 1 Mg Vial IM Q15MIN PRN BG <70, and no IV access Heparin Sodium (Porcine) 5,000 unit 07/01/24 11:30 07/04/24 08:41 Heparin Sod Inj 5000 Unit/Ml Vial SC 07/15/24 11:29 Not Given Q12HR AMARJIT Insulin Human Lispro 0 unit 07/02/24 11:30 07/04/24 07:28 Insulin Lispro (Admelog) 1 Unit/0.01 Ml Unit SC 08/01/24 11:29 Not Given Q6H AMARJIT Protocol Lactulose 20 gm 06/30/24 03:04 Lactulose Syrup 20 Gm/30 Ml Udc PO 07/30/24 08:59 QDAY PRN Constipation Protocol Lansoprazole 30 mg 06/30/24 09:00 07/04/24 08:40 Lansoprazole 30 Mg Tab GT 07/30/24 08:59 Not Given QDAY AMARJIT Levofloxacin 500 mg 07/03/24 10:15 07/03/24 11:00 Levofloxacin 250 Mg Tablet GT 07/10/24 10:14 500 mg Q48H AMARJIT Administration Magnesium Hydroxide 30 ml 06/30/24 02:29 Milk Of Magnesia Susp 30 Ml Udc PO 07/30/24 02:28 QDAY PRN CONSTIPATION Protocol Pharmacy Consult 1 each 06/30/24 09:00 Pharmacy Renal Dose Adjustment 1 Ea XX 07/30/24 08:59 QDAY PRN CONSULT Sodium Chloride 3 ml 06/30/24 03:27 Sodium Chloride Rt Viviana 0.9% 3 Ml Nebu INH 07/30/24 03:26 PRN PRN SOLN Sodium Chloride 1 gm 07/03/24 10:30 07/04/24 08:40 Sodium Chloride 1 Gm Tablet GT 08/02/24 10:29 Not Given BID AMARJIT Plan Assessment and plan: Summary: Ms. Guaman is a 83-year-old female patient with past medical history of multiple CVA, seizure disorder, atrial fibrillation, hypertension, type 2 diabetes mellitus, nonverbal status post tracheostomy and PEG tube placement who presented to [facility] emergency department on 06/30/2024 from subacute with chief complaint of bradycardia. Patient was found to have severe hypoosmolar hyponatremia, overcorrected with hypertonic saline and patient was admitted to ICU for further management. Patient downgraded on 07/02/2024 to telemetry for further management. #Severe hypoosmolar hyponatremia #Acute kidney injury, resolved #Hyperkalemia, resolved Patient presented initially with sodium 115, was started on hypertonic saline in the emergency department, patient sodium overcorrected and hence nephrology was consulted, patient was started on desmopressin and D5W. Sodium is stable today, sodium level 127 Plan: -Started on salt tablets twice daily through G-tube -Follow renal panel in a.m. -Continue free water flushes per nephrology -Nephrology consulted, appreciate recommendations #Sepsis secondary to #Urinary tract infection #Pneumonia #Parapneumonic effusion #Sacral decubitus ulcer #Chronic respiratory failure status post tracheostomy Patient on presentation was bradycardic, was found to have urinary tract infection UA significant for rare bacteria, WBC 121, leukocyte esterase positive nitrite negative was started on IV antibiotics in the emergency department. Lactate was positive. Chest x-ray was significant for possible superimposed pneumonia, does have extensive pleural parenchymal disease. Patient was hypotensive at times in the intensive care unit, was never started on pressor support. Patient does also have a sacral decubitus ulcer. Blood culture urine culture negative, sputum culture does show few GPC, high probability of colonization. Plan: -Continue Levaquin -Monitor vitals closely -Patient does have Pleurx cath in place, unable to drain from catheter patient is scheduled for IR ultrasound guided thoracentesis. -N.p.o. currently, pending procedure -Scheduled for ultrasound-guided thoracentesis in a.m. -Continue mechanical ventilation, SIMV mode #Bradycardia, resolved #Heart failure with preserved ejection fraction EF 55 to 60% #Atrial fibrillation Patient's BNP was elevated at 1037 on presentation, patient was hypovolemic on presentation, and EKG in the emergency department showed sinus bradycardia with heart rate in 50s repeat EKG showed improvement of heart rate. Patient has good chronotropic response and heart rate improved with the progression of hospital course. [id number] score 7 points indicating 11.2% risk of stroke per year Has-bled score of 2 points indicating moderate risk of major bleeding Plan: -Patient's home dose amiodarone resumed, heart rate is stable -Patient not on any anticoagulation currently, being held in anticipation of ultrasound-guided thoracentesis - Consulted cardiology, appreciate recommendations #PEG tube Feeding - Patient is currently on tube feeding, continue - N.p.o. currently, pending procedure #Normocytic normochromic anemia Patient came with hemoglobin of 6.6, was given 1 unit PRBC - Follow CBC in a.m. #Diabetes mellitus type 2 - Sliding scale insulin #Constipation #Rule out C. difficile Patient has rectal tube intact, constipation resolved -Patient has increased output from rectal tube, ordered C. difficile #Multiple CVA by history #Seizure disorder by history #Hypokalemia-resolved #Hypocalcemia resolved #Lactic acidosis resolved #Goals of care Case discussed extensively with patient's son Mr. Kiser Her, would like a referral for hospice. DVT prophylaxis: Heparin 5000 every 12 hours GI prophylaxis: Lansoprazole Diet: PEG tube feeds Lines: Peripheral IV Code status: DNR/DNI Case discussed with Attending Dr. Figueroa. Carl Fitzgerald PGY1 Disclaimer: This note was dictated by speech recognition. Minor errors in oncology radiation physician may be present due to voice recognition software. Attending Provider Attestation/Addendum I reviewed labs, imaging, EKG, home medications and prior available records. Face to face evaluation was performed by me. I have personally examined the patient and discussed assessment and plan with the IM team. I reviewed the resident note and agree with the plan with exceptions as below. Acute hypotension, resolved Sinus bradycardia, resolved Hyponatremia, resolved Sepsis Hospital-acquired pneumonia Pleural effusion CELESTINO, resolved Sodium improved. Discussed with nephrology: Changed Bicitra to salt tablets Continue to monitor BMP Heart rate is stable. Discussed with cardiology: Resumed amiodarone. Continue to hold metoprolol Monitor kidney function: Creatinine improved and back to baseline Avoid nephrotoxins. Renally dosed medications Continue levofloxacin Follow-up C. difficile Consulted IR for pleurocentesis: Plan for pleurocentesis, CT-guided Discussed goals of care with family: Will transition to long term with hospice/comfort care after pleurocentesis
--- NOTE | 2024-07-04 11:40 | PC.NURSE ---
resume pt. care,open eyes.on ventilator.no resp.distress noted.will continue to monitor.
--- NOTE | 2024-07-04 15:24 | PC.SS ---
SS spoke to Margi from [facility] who states they can accept pt back on comfort care not hospice services. Physician residents are aware.
[2024-07-04] MEDS: ATORVASTATIN CALCIUM 20 MG TABLET 80 MG GT (20:23)
[2024-07-04] MEDS: SODIUM CHLORIDE 1 GM TABLET GT (20:23)
[2024-07-04] MEDS: CADEXOMER IODINE GEL 40 GM TUBE TOP (20:24)
[2024-07-04] MEDS: HEPARIN SOD INJ 5000 UNIT/ML VIAL SC (20:24)
[2024-07-05] VITALS (16 sets, daily range): BP systolic 107–154; BP diastolic 57–80; PULSE 65–88; RESP 19–27; TEMP 36.1–36.8; O2SAT 99–100; BMI 22.9
[2024-07-05 05:23] LABS: Basophils % (Auto) 0 % (0-2.5); Eosinophils # (Auto) 0.2 Thou/mm3 (0.0-0.5); Eosinophils % (Auto) 2 % (0-10); Hematocrit 22.6 % (36.0-46.0); Immature Granulocytes % (Auto) 1 % (0-0); Immature Granulocytes Auto 0.07 Thou/mm3 (0.00-0.00); Lymphocytes % (Auto) 8 % (10-50); Mean Corpuscular HGB Conc 32.7 g/dl (31.0-37.0); Mean Corpuscular Hemoglobin 27.2 pg (25.0-35.0); Mean Corpuscular Volume 83 fL (80-100); Monocytes % (Auto) 8 % (0-12); Neutrophils # (Auto) 10.1 Thou/mm3 (1.8-7.7); Neutrophils % (Auto) 82 % (37-80); Nucleated Red Blood Cell % 0 /100 WBC (0); Platelet Count 333 Thou/mm3 (140-440); RDW Standard Deviation 47.9 fL (36.4-46.3); Red Blood Count 2.72 Miln/mm3 (4.00-5.20); White Blood Count 12.3 Thou/mm3 (3.6-11.0)
[2024-07-05 05:30] LABS: Hemoglobin 7.4 g/dL (12.0-16.0)
[2024-07-05 05:52] LABS: Alanine Aminotransferase 15 U/L (10-49); Albumin, Serum 2.5 gm/dL (3.4-4.8); Albumin/Globulin Ratio 0.9 (1.2-2.2); Alkaline Phosphatase 73 U/L (46-116); Anion Gap 4 (7-16); Aspartate Amino Transferase 19 U/L (0-34); BUN/Creatinine Ratio 40 Ratio (12-20); Bilirubin,Total 0.5 mg/dL (0.3-1.2); Blood Urea Nitrogen 32 mg/dL (9-23); Calcium 7.8 mg/dL (8.3-10.6); Carbon Dioxide 31.7 mMol/L (20.0-31.0); Chloride 97 mMol/L (98-107); Creatinine (Component) 0.8 mg/dL (0.6-1.3); Estimated Creatinine Clearance 40.2 mL/min (>60); Globulin 2.9 gm/dL (2.3-3.5); Glucose 84 mg/dL (74-106); Magnesium 2.2 mg/dL (1.6-2.6); Osmolality,Calculated 272 (275-295); Potassium 3.7 mMol/L (3.4-5.1); Sodium 133 mMol/L (136-145); Total Protein 5.4 gm/dL (5.7-8.2); eGFR > 60 See Note
--- NOTE | 2024-07-05 06:00 | XR_ITS ---
Exam: CT-guided right thoracentesis INDICATION: Nonfunctioning right Pleurx catheter with likely loculated pleural effusion. COMPARISON: 04/05/2024. CTDI: 818 DLP: 532. EXAM: After a discussion of risks and benefits informed consent was obtained from the patient's family. Patient was brought to the CT scanner and placed in the left lateral decubitus position. Preliminary noncontrast enhanced CT demonstrated bilateral, right greater than left pleural effusions with a right-sided Pleurx catheter in place. Right posterior pleural space was targeted for thoracentesis. The overlying skin was cleaned and draped in normal sterile surgical fashion. 10 cc 1% lidocaine was used for local anesthesia. Using CT guidance a 5 [place] needle catheter was sequentially advanced into the right posterior pleural space. 10 cc's of thick yellow pleural fluid was obtained. Flow ceased through the catheter. The needle was withdrawn. Hemostasis was achieved. The access site was covered with sterile dressing. Similar procedure was followed at two additional sites in the posterior lateral right thorax. 5 to 10 cc of thick yellow pleural fluid were obtained from each site.. No additional fluid could be obtained. [place] were withdrawn. Hemostasis was achieved. The access sites were covered with sterile dressing. There were immediate complications. IMPRESSION: Limited CT-guided thoracentesis as above. Multiple access sites attempted with limited success. Total of 20 to 30 cc cc of thick yellow pleural fluid obtained.
--- NOTE | 2024-07-05 08:48 | PD.RESPRO ---
Documentation for date of: 07/05/24 Subjective Subjective Interval history: This is an 83-year-old female with chronic tracheotomy and PEG tube following multiple strokes, seizure disorder, A-fib, HTN, T2DM, 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 Patient nonverbal. HPI collected from chart review. Evidently she was on ANTIBIOTIC for UTI. She presented with BP 134/64, HR 46, RR 32, afebrile, on mechanical ventilation. Labs showed sodium 115, potassium 6.5, serum osmole 259, chloride 77, BUN/CR 76/1.8, GLUCOSE 177, lactic acid 2.2, BNP 1037, H/H 6.9/19.6. ABG showed pH 7.51, PO254, bicarb 30.9. UA showed WBC 129, positive LE and rare bacteria. EKG showed sinus bradycardia without T wave abnormalities. Unable to assess mentation or baseline secondary to AMS which is baseline for her. In the ED, her initial vitals were blood pressure of 134/64, pulse 46, respiratory rate 32, temperature 98.0, saturating well on mechanical ventilator with 43% FiO2 which is her baseline at the subacute. Lab results are significant for WBC of 16.7, hemoglobin/hematocrit of 6.6/19.6, sodium 115, potassium 6.5, chloride 77, BUN/creatinine 76/1.8, glucose 177, osmolality 259, lactic acid 2.2, BNP 1037, procalcitonin 0.96. ABG was obtained which shows pH of 7.51, PO2 of 54, bicarb from CHEM panel was 30.9. Urinalysis shows 121 WBCs, positive leukocyte esterase and rare bacteria. As per patient's RN, the Hector catheter appears recently exchanged. Initially she was given 2 L NS boluses and started on 3% hypertonic. Sodium corrected from 123 to 127. Currently 3% hypertonic was discontinued. Potassium 5.2. Also given KAYEXALATE and, ALBUTEROL and CALCIUM GLUCONATE, potassium improved to 5.2. Patient currently in ICU. Nephrology was consulted for management of CELESTINO. Recommendations as listed below. 07/01/2024 patient currently seen in ICU. Remains nonverbal. Opens her eyes but do not track. Overnight no acute events. Blood pressure 138/60, heart rate 72. WBC 12.5, hemoglobin 7.8, platelets 401.Sodium 126, potassium 3.5, BUN 46, creatinine 1.2, glucose 144, calcium 9.5, LFTs normal, albumin 2.6. Patient currently on desmopressin and D5W. Noted to have good urine output. 07/02/2024 examined at bedside in ICU. Remains nonverbal, opens eyes spontaneously, does not track. No overnight events. BP 134/60, HR 72. Leukocytosis resolved. Hgb stable 8.0. CR normal. Sodium 127, stable.will discontinue DESMOPRESSIN. Urine output normal. 07/03/2024 examined at bedside in ICU. Hemodynamically stable. Mental status appears at baseline. Appears comfortable without signs of distress. Plan to downgrade Q2H for today. Sodium remains 127. Will salt tablets BID. 07/04/2024 exmained at bedside, on tele. Appears at baseline. Sodium 131. WBC 12.3, Hgb 7.9, PLT 460. Urine output was 1250 cc overnight. Has significant edema in all extremities. Appears to have soft/watery stool. 07/05/2024 examined at bedside. Appears at baseline. On salt tabs BID, Sodium 133 imporving. Renal function stable, CR 0.8 EGFR >60. Urine output 800 overnight. Edema improving. Exam Vital Signs Temp Pulse Resp BP Pulse Ox O2 Del Method FiO2 97.7 F 72 19 129/59 L 100 Mechanical Ventilation 35 07/05/24 08:00 07/05/24 08:00 07/05/24 08:00 07/05/24 08:00 07/05/24 08:00 07/05/24 08:00 07/05/24 07:25 Objective Labs 07/05/24 14:57 07/05/24 04:37 Labs: Laboratory Results - last 24 hr 07/05/24 04:37 WBC 12.3 H RBC 2.72 L Hgb 7.4 L Hct 22.6 L MCV 83 MCH 27.2 MCHC 32.7 RDW Std Deviation 47.9 H Plt Count 333 D Neut % (Auto) 82 H Lymph % (Auto) 8 L [place] % (Auto) 8 Eos % (Auto) 2 Baso % (Auto) 0 Neut # (Auto) 10.1 H Lymph # (Auto) 1.0 [place] # (Auto) 1.0 H Eos # (Auto) 0.2 Baso # (Auto) 0.0 Immature Gran # (Auto) 0.07 H Absolute Nucleated RBC 0.00 Immature Gran % 1 H Nucleated RBC % 0 Sodium 133 L Potassium 3.7 Chloride 97 L Carbon Dioxide 31.7 H Anion Gap 4 L BUN 32 H Creatinine 0.8 Estim Creat Clear Calc 40.2 L eGFR > 60 BUN/Creatinine Ratio 40 H Glucose 84 Calculated Osmolality 272 L Calcium 7.8 L Corrected Calcium 9.0 Magnesium 2.2 Total Bilirubin 0.5 AST 19 ALT 15 Alkaline Phosphatase 73 Total Protein 5.4 L Albumin 2.5 L Globulin 2.9 Albumin/Globulin Ratio 0.9 L ABG Interpretation ABG results: 06/29/24 06/30/24 22:53 07:24 ABG pH 7.51 H ABG pCO2 42 ABG pO2 54 L* ABG HCO3 34 H ABG O2 Saturation 91 ABG Base Excess 10 H VBG pH 7.54 VBG pCO2 34 L VBG pO2 57 VBG Base Excess 6 H Quality Measures Quality Measures sepsis Current suspected stage: ruled out Possible source: pulmonary and genitourinary Blood cultures ordered: yes Antibiotic ordered: Yes Advance care planning discussed with:: patient Assessment & Plan Assessment Current Active Medications: Generic Name Dose Route Start Last Admin Trade Name Freq PRN Reason Stop Dose Admin Al Hydrox/Mg Hydrox/Simethicone 30 ml 06/30/24 02:29 Mg Hyd/Al Hyd/[place] (Maalox Reg) Susp 30 Ml Udc PO 07/30/24 02:28 Q4HR PRN Heartburn or Upset Stomach Albuterol/Ipratropium 3 ml 06/30/24 02:34 Albuterol/Ipratropium (Duoneb) Rt Viviana 3 Ml Nebu INH 07/30/24 02:33 Q2HR PRN SHORTNESS OF BREATH OR WHEEZE Amiodarone HCl 200 mg 07/03/24 10:15 07/04/24 08:40 Amiodarone Hcl 200 Mg Tablet GT 08/02/24 10:14 Not Given QDAY AMARJIT Atorvastatin Calcium 80 mg 06/30/24 21:00 07/04/24 20:23 Atorvastatin Calcium 20 Mg Tablet GT 07/30/24 20:59 80 mg HS AMARJIT Administration Cadexomer Iodine 0 gm 07/02/24 21:00 07/04/24 20:24 Cadexomer Iodine Gel 40 Gm Tube TOP 07/09/24 20:59 1 applicatio HS AMARJIT Administration Dextrose 25 ml 06/30/24 03:02 Dextrose 50%-Water Inj 50 Ml Syringe IV 07/30/24 03:01 Q15MIN PRN BG 50-70 responsive npo pt Dextrose 50 ml 06/30/24 03:02 Dextrose 50%-Water Inj 50 Ml Syringe IV 07/30/24 03:01 Q15MIN PRN BG <50 OR BG <70 & pt unresponsive Glucagon 1 mg 06/30/24 03:02 Glucagon Inj 1 Mg Vial IM Q15MIN PRN BG <70, and no IV access Heparin Sodium (Porcine) 5,000 unit 07/01/24 11:30 07/04/24 20:24 Heparin Sod Inj 5000 Unit/Ml Vial SC 07/15/24 11:29 5,000 unit Q12HR AMARJIT Administration Insulin Human Lispro 0 unit 07/04/24 18:00 07/05/24 05:03 Insulin Lispro (Admelog) 1 Unit/0.01 Ml Unit SC 08/03/24 17:59 Not Given Q6HR AMARJIT Protocol Lactulose 20 gm 06/30/24 03:04 Lactulose Syrup 20 Gm/30 Ml Udc PO 07/30/24 08:59 QDAY PRN Constipation Protocol Lansoprazole 30 mg 06/30/24 09:00 07/04/24 08:40 Lansoprazole 30 Mg Tab.Charles. GT 07/30/24 08:59 Not Given QDAY AMARJIT Levofloxacin 500 mg 07/03/24 10:15 07/03/24 11:00 Levofloxacin 250 Mg Tablet GT 07/10/24 10:14 500 mg Q48H AMARJIT Administration Magnesium Hydroxide 30 ml 06/30/24 02:29 Milk Of Magnesia Susp 30 Ml Udc PO 07/30/24 02:28 QDAY PRN CONSTIPATION Protocol Pharmacy Consult 1 each 06/30/24 09:00 Pharmacy Renal Dose Adjustment 1 Ea XX 07/30/24 08:59 QDAY PRN CONSULT Sodium Chloride 3 ml 06/30/24 03:27 Sodium Chloride Rt Viviana 0.9% 3 Ml Nebu INH 07/30/24 03:26 PRN PRN SOLN Sodium Chloride 1 gm 07/03/24 10:30 07/04/24 20:23 Sodium Chloride 1 Gm Tablet GT 08/02/24 10:29 1 gm BID AMARJIT Administration Plan 83-year-old female with chronic tracheotomy and PEG tube following multiple strokes, seizure disorder, A-fib, HTN, T2DM, 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 Found to have severe hyponatremia, hyperkalemia and CELESTINO. Sodium 131 today. Will continue with salt tablets BID. Hypotonic, hypervolemic hyponatremia Sodium stable at 133 today. ? Started tablets BID to PEG tube ? Continue sodium checks CELESTINO, likely pre-renal (resolved) Likely due to hypoperfusion from sepsis, fluid shifts, or renal vasoconstriction Previously normal renal function, presenting with CR 1.8, BUN 66, and EGFR 28. Creatinine markedly improved with fluids. ? Renally dose meds, avoid overdiuresis and NEPHROTOXINS ? Daily CMP Hypokalemia (resolved) replace KCL UTI Has been on outpatient ANTIBIOTICS for UTI. UA suggest UTI. ? Continue ANTIBIOTICS per primary team. Bradycardia (resolved) Sinus bradycardia on EKG. Recurrent bradycardia per chart review. Possibly related to AMIODARONE which is currently on hold. Less likely d/t hyperkalemia, no related EKG abnormalities. ? Managed by primary team Lactic acidosis, type I versus type II (resolved) Possibly in setting of sepsis versus poor clearance. ? Managed by primary team History of multiple strokes History of seizure disorder Patient nonverbal at baseline History of A-fib History of hypertension Bilateral pneumonia Acute normocytic anemia Leukocytosis Sepsis UTI Pneumonia Decubitus ulcer Concern for osteomyelitis Constipation PEG tube feeding ? Managed by primary team Patient case was discussed with attending, Dr. Babin. Ed Solorio DO PGYI Attending Provider Attestation/Addendum Patient seen and examined with resident physician Dr. Ward. Note reviewed, agree with findings and recommendations. Sodium seems to be better with salt tablets. Noted to have rectal tube. Will monitor bicarbonate /electrolytes closely. Noted she might need thoracentesis for bilateral pleural effusions. S/p trach and PEG.
[2024-07-05] MEDS: LANSOPRAZOLE 30 MG TAB.RAP.DR GT (09:43)
[2024-07-05] MEDS: AMIODARONE HCL 200 MG TABLET GT (09:43)
[2024-07-05] MEDS: LEVOFLOXACIN 250 MG TABLET 500 MG GT (09:44)
[2024-07-05] MEDS: SODIUM CHLORIDE 1 GM TABLET GT ×2 (09:45→20:16)
--- NOTE | 2024-07-05 10:19 | PD.RESPRO ---
Documentation for date of: 07/05/24 Subjective Subjective Interval history: No acute overnight events noted. Seen and examined at bedside. Patient continues to be alert, wakes up to voice, and follows commands intermittently. Vital signs stable, O2 requirements improving as she is on 35% FiO2. Labs reviewed and hemoglobin 7.4 (slight downtrend), WBC 12.3. Na improving at 133, K 3.7, Mg 2.2, HCO3 31.7. Primary team had goals of care discussion with patient's son, who was updated regarding patient's hospitalization and underlying malignancy and asked for hospice referral. Plan is for son to visit facility on Tuesday and social workers updated. Exam Vital Signs Temp Pulse Resp BP Pulse Ox O2 Del Method FiO2 97.7 F 71 19 120/60 100 Mechanical Ventilation 35 07/05/24 08:00 07/05/24 09:43 07/05/24 08:00 07/05/24 09:43 07/05/24 08:00 07/05/24 08:00 07/05/24 07:25 Narrative Exam General: alert, nonverbal, chronically ill-appearing, moves upper extremities spontaneously, can follow some commands HEENT: tracheostomy in place on mechanical ventilation, NC/AT, mucous membranes moist, bilateral sclera anicteric Cardiovascular: regular rate and rhythm, S1/S2 present, no murmurs appreciated Pulmonary: bronchial breath sounds ausculated bilaterally, Pleurx catheter in place Abdominal: soft, non-tender, non-distended, no rebound/guarding, normal bowel sounds present Musculoskeletal: muscle wasting noted in lower extremities, trace BLE pitting edema Skin: decubitus ulcer in sacrum Neuro: alert, opens eyes to voice, nonverbal at baseline, able to move upper extremities spontaneously, follows some commands Objective Labs 07/05/24 14:57 07/05/24 04:37 Labs: Laboratory Results - last 24 hr 07/05/24 04:37 WBC 12.3 H RBC 2.72 L Hgb 7.4 L Hct 22.6 L MCV 83 MCH 27.2 MCHC 32.7 RDW Std Deviation 47.9 H Plt Count 333 D Neut % (Auto) 82 H Lymph % (Auto) 8 L Sac % (Auto) 8 Eos % (Auto) 2 Baso % (Auto) 0 Neut # (Auto) 10.1 H Lymph # (Auto) 1.0 Sac # (Auto) 1.0 H Eos # (Auto) 0.2 Baso # (Auto) 0.0 Immature Gran # (Auto) 0.07 H Absolute Nucleated RBC 0.00 Immature Gran % 1 H Nucleated RBC % 0 Sodium 133 L Potassium 3.7 Chloride 97 L Carbon Dioxide 31.7 H Anion Gap 4 L BUN 32 H Creatinine 0.8 Estim Creat Clear Calc 40.2 L eGFR > 60 BUN/Creatinine Ratio 40 H Glucose 84 Calculated Osmolality 272 L Calcium 7.8 L Corrected Calcium 9.0 Magnesium 2.2 Total Bilirubin 0.5 AST 19 ALT 15 Alkaline Phosphatase 73 Total Protein 5.4 L Albumin 2.5 L Globulin 2.9 Albumin/Globulin Ratio 0.9 L ABG Interpretation ABG results: 06/29/24 06/30/24 22:53 07:24 ABG pH 7.51 H ABG pCO2 42 ABG pO2 54 L* ABG HCO3 34 H ABG O2 Saturation 91 ABG Base Excess 10 H VBG pH 7.54 VBG pCO2 34 L VBG pO2 57 VBG Base Excess 6 H Quality Measures Quality Measures sepsis Current suspected stage: ruled out Possible source: pulmonary and genitourinary Blood cultures ordered: yes Antibiotic ordered: No Advance care planning discussed with:: patient Assessment & Plan Assessment Current Active Medications: Generic Name Dose Route Start Last Admin Trade Name Freq PRN Reason Stop Dose Admin Al Hydrox/Mg Hydrox/Simethicone 30 ml 06/30/24 02:29 Mg Hyd/Al Hyd/[place] (Maalox Reg) Susp 30 Ml Udc PO 07/30/24 02:28 Q4HR PRN Heartburn or Upset Stomach Albuterol/Ipratropium 3 ml 06/30/24 02:34 Albuterol/Ipratropium (Duoneb) Rt Viviana 3 Ml Nebu INH 07/30/24 02:33 Q2HR PRN SHORTNESS OF BREATH OR WHEEZE Amiodarone HCl 200 mg 07/03/24 10:15 07/05/24 09:43 Amiodarone Hcl 200 Mg Tablet GT 08/02/24 10:14 200 mg QDAY AMARJIT Administration Atorvastatin Calcium 80 mg 06/30/24 21:00 07/04/24 20:23 Atorvastatin Calcium 20 Mg Tablet GT 07/30/24 20:59 80 mg HS AMARJIT Administration Cadexomer Iodine 0 gm 07/02/24 21:00 07/04/24 20:24 Cadexomer Iodine Gel 40 Gm Tube TOP 07/09/24 20:59 1 applicatio HS AMARJIT Administration Dextrose 25 ml 06/30/24 03:02 Dextrose 50%-Water Inj 50 Ml Syringe IV 07/30/24 03:01 Q15MIN PRN BG 50-70 responsive npo pt Dextrose 50 ml 06/30/24 03:02 Dextrose 50%-Water Inj 50 Ml Syringe IV 07/30/24 03:01 Q15MIN PRN BG <50 OR BG <70 & pt unresponsive Glucagon 1 mg 06/30/24 03:02 Glucagon Inj 1 Mg Vial IM Q15MIN PRN BG <70, and no IV access Heparin Sodium (Porcine) 5,000 unit 07/01/24 11:30 07/05/24 09:44 Heparin Sod Inj 5000 Unit/Ml Vial SC 07/15/24 11:29 Not Given Q12HR AMARJIT Insulin Human Lispro 0 unit 07/04/24 18:00 07/05/24 05:03 Insulin Lispro (Admelog) 1 Unit/0.01 Ml Unit SC 08/03/24 17:59 Not Given Q6HR AMARJIT Protocol Lactulose 20 gm 06/30/24 03:04 Lactulose Syrup 20 Gm/30 Ml Udc PO 07/30/24 08:59 QDAY PRN Constipation Protocol Lansoprazole 30 mg 06/30/24 09:00 07/05/24 09:43 Lansoprazole 30 Mg Tab.Rap. GT 07/30/24 08:59 30 mg QDAY AMARJIT Administration Levofloxacin 500 mg 07/03/24 10:15 07/05/24 09:44 Levofloxacin 250 Mg Tablet GT 07/10/24 10:14 500 mg Q48H AMARJIT Administration Magnesium Hydroxide 30 ml 06/30/24 02:29 Milk Of Magnesia Susp 30 Ml Udc PO 07/30/24 02:28 QDAY PRN CONSTIPATION Protocol Pharmacy Consult 1 each 06/30/24 09:00 Pharmacy Renal Dose Adjustment 1 Ea XX 07/30/24 08:59 QDAY PRN CONSULT Sodium Chloride 3 ml 06/30/24 03:27 Sodium Chloride Rt Viviana 0.9% 3 Ml Nebu INH 07/30/24 03:26 PRN PRN SOLN Sodium Chloride 1 gm 07/03/24 10:30 07/05/24 09:45 Sodium Chloride 1 Gm Tablet GT 08/02/24 10:29 1 gm BID AMARJIT Administration Plan Monisha Guaman is an 83-year-old female with past medical history of multiple strokes leading to chronic trach and PEG and resides at [facility], seizure disorder, atrial fibrillation on amiodarone and eliquis, HFpEF (EF 55-60% on 04/2024), malignant pleural effusions on Pleurx catheter, DVT, hypertension, and type 2 diabetes mellitus who presented on 06/30 for bradycardia. Cardiology consulted for bradycardia, HFpEF, and history of atrial fibrillation. #Bradycardia, resolved #History of A-fib on amiodarone and Eliquis #History of DVT Initially presented with heart rate in 40s-50s while noted to be on metoprolol and amiodarone. However, also noted to have initial potassium of 6.5 with associated EKG changes, such as prolonged QRS complexes and peaked T waves in leads V3, V4, and II, which may be primary etiology of patient's bradycardia in setting of amiodarone and metoprolol. Lower suspicion that amiodarone and/or metoprolol are cause of bradycardia given that patient has been on these medications since being admitted to [facility] in March. Hyperkalemia itself suspected to be due to prerenal CELESTINO in setting of GI losses (lactulose) and renal losses (lasix). Noted that lasix leads to hypokalemia but renal injury in and of itself may have led to abnormal electrolyte balance, including hyperkalemia, which may have caused sinus bradycardia as mentioned above. At this time, recommend to continue with amiodarone, hold metoprolol, and to give lasix as PRN (see #HFpEF below). [id number] score: 8, 10.8% % risk of stroke per year HAS-BLED score: 3, high risk of major bleeding ? Continue amiodarone 200 mg daily ? Once no more procedures are planned, consider restarting eliquis given that hemoglobin stable, no signs of active bleeding, FOBT negative, and patient's history of DVT #HFpEF (EF 55 to 60% 04/2024) BNP > 1000 upon admission. Echo 04/2024: LV appears normal with EF 55-60%, grade II diastolic dysfunction. RVSP 45 mmHg. Mod-severe MR, mild MAC, mild-moderate TR. Noted to have rx of lasix 20 mg and metoprolol tartrate 25 mg ? Hold metoprolol; if heart rate increases, can start at 12.5 mg via GT BID ? Recommend to change lasix Rx from scheduled to as needed if patient is fluid overloaded #Severe hypoosmolar hyponatremia #Acute kidney injury, resolved #Hyperkalemia, resolved #Urinary tract infection #Pneumonia #Parapneumonic effusion #Sacral decubitus ulcer #Chronic respiratory failure status post tracheostomy #PEG tube Feeding #Normocytic normochromic anemia #Diabetes mellitus type 2 #Constipation #Multiple CVA by history #Seizure disorder by history #Hypokalemia, resolved #Hypocalcemia, resolved #Lactic acidosis, resolved ? Continue management per primary team and other consultants ----- Plan discussed with attending physician Dr. Ismael Trejo MD PGY-1 Internal Medicine Attending Provider Attestation/Addendum I have personally seen and examined the patient separately on the above date of service and discussed the plan of care with the resident. I reviewed the resident Dr. Woo Trejo consultation progress note and agree with the resident findings and plan in the note above and have also edited the documentation to reflect my findings and plan. Alfa Guevara M.D. Interventional Cardiology
--- NOTE | 2024-07-05 10:26 | XR_ITS ---
Examination: CT brain head without contrast. 2-D sagittal coronal reconstructions Date and time of exam:July 05, 2024 1238 hrs. Indications: Onset facial droop today Vertebral CTDI: vol (mGy):48.2 DLP: (mGycm):975 Technique: Multiple CT axial sections of the brain have been obtained, 5 mm slice thickness. Contrast has not been administered. 2-D sagittal, coronal reconstructions have been obtained Low dose protocols were performed. One or more of the following dose reduction techniques were used; automated exposure control, adjustment of the mA and/or KV according to patient size, use of iterative reconstruction technique. Findings: No significant ventricular enlargement. Old infarct right basal ganglia and left basal ganglia as well as right cerebellar hemisphere Intra-axial or extra-axial hemorrhage density is not seen. No mass effect or midline shift Basal cisterns are not remarkable. Fourth ventricle is midline. Cranial vault intact. Impression: Negative for acute hemorrhage, mass effect or midline shift As clinically warranted, brain MRI follow-up would best assess for acute ischemic change
--- NOTE | 2024-07-05 10:36 | PD.RESPRO ---
Documentation for date of: 07/05/24 Subjective Subjective Interval history: Patient seen and examined at bedside, currently is scheduled for CT-guided thoracentesis today. Currently n.p.o., will resume tube feeds after procedure. Will follow-up with family later today regarding hospice. Will resume Eliquis later today if H&H stable in the afternoon. Patient does have some drooping on the face, right side, will obtain CT scan of the head. Exam Vital Signs Temp Pulse Resp BP Pulse Ox O2 Del Method FiO2 97.7 F 71 19 120/60 100 Mechanical Ventilation 35 07/05/24 08:00 07/05/24 09:43 07/05/24 08:00 07/05/24 09:43 07/05/24 08:00 07/05/24 08:00 07/05/24 08:00 Narrative Exam General: alert, nonverbal, chronically ill-appearing, moves upper extremities spontaneously HEENT: tracheostomy in place on mechanical ventilation, NC/AT, mucous membranes moist, bilateral sclera anicteric Cardiovascular: regular rate and rhythm, S1/S2 present, no murmurs appreciated Pulmonary: bronchial breath sounds ausculated bilaterally, Plerx catheter in place Abdominal: soft, non-tender, non-distended, no rebound/guarding, normal bowel sounds present Musculoskeletal: muscle wasting noted in lower extremities, trace BLE pitting edema Skin: decubitus ulcer in sacrum Neuro: alert, nonverbal at baseline, able to move upper extremities spontaneously drooping noted right-sided face Objective Labs 07/05/24 11:00 07/05/24 04:37 Labs: Laboratory Results - last 24 hr 07/05/24 04:37 WBC 12.3 H RBC 2.72 L Hgb 7.4 L Hct 22.6 L MCV 83 MCH 27.2 MCHC 32.7 RDW Std Deviation 47.9 H Plt Count 333 D Neut % (Auto) 82 H Lymph % (Auto) 8 L [place] % (Auto) 8 Eos % (Auto) 2 Baso % (Auto) 0 Neut # (Auto) 10.1 H Lymph # (Auto) 1.0 [place] # (Auto) 1.0 H Eos # (Auto) 0.2 Baso # (Auto) 0.0 Immature Gran # (Auto) 0.07 H Absolute Nucleated RBC 0.00 Immature Gran % 1 H Nucleated RBC % 0 Sodium 133 L Potassium 3.7 Chloride 97 L Carbon Dioxide 31.7 H Anion Gap 4 L BUN 32 H Creatinine 0.8 Estim Creat Clear Calc 40.2 L eGFR > 60 BUN/Creatinine Ratio 40 H Glucose 84 Calculated Osmolality 272 L Calcium 7.8 L Corrected Calcium 9.0 Magnesium 2.2 Total Bilirubin 0.5 AST 19 ALT 15 Alkaline Phosphatase 73 Total Protein 5.4 L Albumin 2.5 L Globulin 2.9 Albumin/Globulin Ratio 0.9 L ABG Interpretation ABG results: 06/29/24 06/30/24 22:53 07:24 ABG pH 7.51 H ABG pCO2 42 ABG pO2 54 L* ABG HCO3 34 H ABG O2 Saturation 91 ABG Base Excess 10 H VBG pH 7.54 VBG pCO2 34 L VBG pO2 57 VBG Base Excess 6 H Quality Measures Quality Measures sepsis Current suspected stage: ruled out Possible source: pulmonary and genitourinary Blood cultures ordered: yes Antibiotic ordered: Yes Advance care planning discussed with:: patient and child Assessment & Plan Assessment Current Active Medications: Generic Name Dose Route Start Last Admin Trade Name Freq PRN Reason Stop Dose Admin Al Hydrox/Mg Hydrox/Simethicone 30 ml 06/30/24 02:29 Mg Hyd/Al Hyd/[place] (Maalox Reg) Susp 30 Ml Udc PO 07/30/24 02:28 Q4HR PRN Heartburn or Upset Stomach Albuterol/Ipratropium 3 ml 06/30/24 02:34 Albuterol/Ipratropium (Duoneb) Rt Viviana 3 Ml Nebu INH 07/30/24 02:33 Q2HR PRN SHORTNESS OF BREATH OR WHEEZE Amiodarone HCl 200 mg 07/03/24 10:15 07/05/24 09:43 Amiodarone Hcl 200 Mg Tablet GT 08/02/24 10:14 200 mg QDAY AMARJIT Administration Atorvastatin Calcium 80 mg 06/30/24 21:00 07/04/24 20:23 Atorvastatin Calcium 20 Mg Tablet GT 07/30/24 20:59 80 mg HS AMARJIT Administration Cadexomer Iodine 0 gm 07/02/24 21:00 07/04/24 20:24 Cadexomer Iodine Gel 40 Gm Tube TOP 07/09/24 20:59 1 applicatio HS AMARJIT Administration Dextrose 25 ml 06/30/24 03:02 Dextrose 50%-Water Inj 50 Ml Syringe IV 07/30/24 03:01 Q15MIN PRN BG 50-70 responsive npo pt Dextrose 50 ml 06/30/24 03:02 Dextrose 50%-Water Inj 50 Ml Syringe IV 07/30/24 03:01 Q15MIN PRN BG <50 OR BG <70 & pt unresponsive Glucagon 1 mg 06/30/24 03:02 Glucagon Inj 1 Mg Vial IM Q15MIN PRN BG <70, and no IV access Heparin Sodium (Porcine) 5,000 unit 07/01/24 11:30 07/05/24 09:44 Heparin Sod Inj 5000 Unit/Ml Vial SC 07/15/24 11:29 Not Given Q12HR AMARJIT Insulin Human Lispro 0 unit 07/04/24 18:00 07/05/24 05:03 Insulin Lispro (Admelog) 1 Unit/0.01 Ml Unit SC 08/03/24 17:59 Not Given Q6HR AMARJIT Protocol Lactulose 20 gm 06/30/24 03:04 Lactulose Syrup 20 Gm/30 Ml Udc PO 07/30/24 08:59 QDAY PRN Constipation Protocol Lansoprazole 30 mg 06/30/24 09:00 07/05/24 09:43 Lansoprazole 30 Mg Tab.Rap. GT 07/30/24 08:59 30 mg QDAY AMARJIT Administration Levofloxacin 500 mg 07/03/24 10:15 07/05/24 09:44 Levofloxacin 250 Mg Tablet GT 07/10/24 10:14 500 mg Q48H AMARJIT Administration Magnesium Hydroxide 30 ml 06/30/24 02:29 Milk Of Magnesia Susp 30 Ml Udc PO 07/30/24 02:28 QDAY PRN CONSTIPATION Protocol Pharmacy Consult 1 each 06/30/24 09:00 Pharmacy Renal Dose Adjustment 1 Ea XX 07/30/24 08:59 QDAY PRN CONSULT Sodium Chloride 3 ml 06/30/24 03:27 Sodium Chloride Rt Viviana 0.9% 3 Ml Nebu INH 07/30/24 03:26 PRN PRN SOLN Sodium Chloride 1 gm 07/03/24 10:30 07/05/24 09:45 Sodium Chloride 1 Gm Tablet GT 08/02/24 10:29 1 gm BID AMARJIT Administration Plan Assessment and plan: Summary: Ms. Guaman is a 83-year-old female patient with past medical history of multiple CVA, seizure disorder, atrial fibrillation, hypertension, type 2 diabetes mellitus, nonverbal status post tracheostomy and PEG tube placement who presented to [facility] emergency department on 06/30/2024 from subacute with chief complaint of bradycardia. Patient was found to have severe hypoosmolar hyponatremia, overcorrected with hypertonic saline and patient was admitted to ICU for further management. Patient downgraded on 07/02/2024 to telemetry for further management. #Severe hypoosmolar hyponatremia #Acute kidney injury, resolved #Hyperkalemia, resolved Patient presented initially with sodium 115, was started on hypertonic saline in the emergency department, patient sodium overcorrected and hence nephrology was consulted, patient was started on desmopressin and D5W. Sodium is stable today, sodium level 133 Plan: -Started on salt tablets twice daily through G-tube -Follow renal panel in a.m. -Continue free water flushes per nephrology -Nephrology consulted, appreciate recommendations #Sepsis secondary to #Urinary tract infection #Pneumonia #Parapneumonic effusion #Sacral decubitus ulcer #Chronic respiratory failure status post tracheostomy Patient on presentation was bradycardic, was found to have urinary tract infection UA significant for rare bacteria, WBC 121, leukocyte esterase positive nitrite negative was started on IV antibiotics in the emergency department. Lactate was positive. Chest x-ray was significant for possible superimposed pneumonia, does have extensive pleural parenchymal disease. Patient was hypotensive at times in the intensive care unit, was never started on pressor support. Patient does also have a sacral decubitus ulcer. Blood culture urine culture negative, sputum culture does show few GPC, high probability of colonization. Plan: -Continue Levaquin -Monitor vitals closely -Patient does have Pleurx cath in place, unable to drain from catheter patient is scheduled for IR ultrasound guided thoracentesis. -N.p.o. currently, pending procedure -Scheduled for ultrasound-guided thoracentesis in later today -Continue mechanical ventilation, SIMV mode #Bradycardia, resolved #Heart failure with preserved ejection fraction EF 55 to 60% #Atrial fibrillation Patient's BNP was elevated at 1037 on presentation, patient was hypovolemic on presentation, and EKG in the emergency department showed sinus bradycardia with heart rate in 50s repeat EKG showed improvement of heart rate. Patient has good chronotropic response and heart rate improved with the progression of hospital course. [id number] score 7 points indicating 11.2% risk of stroke per year Has-bled score of 2 points indicating moderate risk of major bleeding Plan: -Patient's home dose amiodarone resumed, heart rate is stable -Patient not on any anticoagulation currently, being held in anticipation of ultrasound-guided thoracentesis - Consulted cardiology, appreciate recommendations #PEG tube Feeding - Patient is currently on tube feeding, continue - N.p.o. currently, pending procedure #Normocytic normochromic anemia Patient came with hemoglobin of 6.6, was given 1 unit PRBC Patient's hemoglobin trend shows gradual decrease every day -Will repeat H&H later today - Follow CBC in a.m. #Diabetes mellitus type 2 - Sliding scale insulin #Constipation #Rule out C. difficile Patient has rectal tube intact, constipation resolved -Patient has increased output from rectal tube, ordered C. difficile #Multiple CVA by history #Seizure disorder by history #Hypokalemia-resolved #Hypocalcemia resolved #Lactic acidosis resolved Patient does have a history of multiple CVA in the past, will obtain CT scan of the head. #Goals of care Case discussed extensively with patient's son Mr. Kiser Her, would like a referral for hospice. Will discuss case with son later today DVT prophylaxis: Heparin 5000 every 12 hours GI prophylaxis: Lansoprazole Diet: PEG tube feeds Lines: Peripheral IV Code status: DNR/DNI Case discussed with Attending Dr. Figueroa. Carl Fitzgerald PGY1 Disclaimer: This note was dictated by speech recognition. Minor errors in judge clerk may be present due to voice recognition software.
[2024-07-05 11:26] LABS: Basophils % (Auto) 0 % (0-2.5); Eosinophils # (Auto) 0.3 Thou/mm3 (0.0-0.5); Eosinophils % (Auto) 2 % (0-10); Hematocrit 22.1 % (36.0-46.0); Immature Granulocytes % (Auto) 1 % (0-0); Immature Granulocytes Auto 0.09 Thou/mm3 (0.00-0.00); Lymphocytes % (Auto) 7 % (10-50); Mean Corpuscular Hemoglobin 27.8 pg (25.0-35.0); Mean Corpuscular Volume 84 fL (80-100); Monocytes % (Auto) 8 % (0-12); Neutrophils # (Auto) 10.8 Thou/mm3 (1.8-7.7); Neutrophils % (Auto) 82 % (37-80); Nucleated Red Blood Cell % 0 /100 WBC (0); Platelet Count 323 Thou/mm3 (140-440); RDW Standard Deviation 49.1 fL (36.4-46.3); Red Blood Count 2.63 Miln/mm3 (4.00-5.20); White Blood Count 13.2 Thou/mm3 (3.6-11.0)
[2024-07-05 11:46] LABS: INR 1.1 (0.9-1.3); Partial Thromboplastin Time 35.3 Seconds (22.0-36.0); Prothrombin Time 12.4 Seconds (9.0-12.2)
[2024-07-05 12:01] LABS: Hemoglobin 7.3 g/dL (12.0-16.0)
[2024-07-05] MEDS: LIDOCAINE INJ PF 1% 30 ML VIAL 15 ML EPID (13:05)
--- NOTE | 2024-07-05 14:30 | PC.SS ---
Addendum entered by ELIZA Singh 07/05/24 14:57: SS update: contacted patient's son Rashel along with Dr. Fitzgerald for goals of care discussion, Doctor provided medical update on behalf of the patient and comfort care was discussed. Patient's son would like to be contacted tomorrow morning to discuss the matter as he is currently at work. Addendum entered by ELIZA Singh 07/05/24 14:36: SS update: discussed with patient's son, Rashel regarding comfort care vs hospice. Provided education to Rashel in regards to comfort care being similar care as hospice care. Rashel informs he would like some time to think about the matter and speak with the medical team. Notified Rashel that [facility] subacute would allow patient to return with comfort care if that is what he decided, however would not accept with hospice. Patient's son verbalized understanding and additionally informed he would be coming to visit the patient this weekend. Informed Rashel that the medical team would soon be contacting him for a goals of care discussion that may take place before the weekend and he verbalized understanding, able to be reached via phone call. Original Note: Rounding note: patient having plurex drained. Goals of care discussion requested for the patient.
[2024-07-05 15:37] LABS: Hematocrit 24.1 % (36.0-46.0); Hemoglobin 7.9 g/dL (12.0-16.0)
--- NOTE | 2024-07-05 17:17 | PC.SS ---
Addendum entered and electronically signed by ELIZA Sadler 07/06/24 07:29: PASSR submitted to Sub-Acute via [employer]. Original Note: PASSR completed. Patient meets Level I criteria. No PASSR follow up required.
[2024-07-05] MEDS: DEXTROSE 50%-WATER INJ 50 ML SYRINGE 25 ML IV (17:26)
[2024-07-05] MEDS: DEXTROSE 50%-WATER INJ 50 ML SYRINGE IV (17:59)
[2024-07-05] MEDS: ATORVASTATIN CALCIUM 20 MG TABLET 80 MG GT (20:16)
[2024-07-05] MEDS: APIXABAN 2.5 MG TABLET GT (20:16)
[2024-07-05] MEDS: CADEXOMER IODINE GEL 40 GM TUBE TOP (20:17)
[2024-07-06] VITALS (11 sets, daily range): BP systolic 132–148; BP diastolic 56–74; PULSE 69–83; RESP 19–28; TEMP 36.3–36.4; O2SAT 99–100
[2024-07-06 05:42] LABS: Basophils % (Auto) 0 % (0-2.5); Eosinophils # (Auto) 0.2 Thou/mm3 (0.0-0.5); Eosinophils % (Auto) 1 % (0-10); Hematocrit 23.2 % (36.0-46.0); Immature Granulocytes % (Auto) 1 % (0-0); Immature Granulocytes Auto 0.07 Thou/mm3 (0.00-0.00); Lymphocytes # (Auto) 0.6 Thou/mm3 (1.0-4.8); Lymphocytes % (Auto) 5 % (10-50); Mean Corpuscular HGB Conc 32.3 g/dl (31.0-37.0); Mean Corpuscular Hemoglobin 27.1 pg (25.0-35.0); Mean Corpuscular Volume 84 fL (80-100); Monocytes % (Auto) 7 % (0-12); Neutrophils # (Auto) 12.5 Thou/mm3 (1.8-7.7); Neutrophils % (Auto) 87 % (37-80); Nucleated Red Blood Cell % 0 /100 WBC (0); Platelet Count 308 Thou/mm3 (140-440); RDW Standard Deviation 48.6 fL (36.4-46.3); Red Blood Count 2.77 Miln/mm3 (4.00-5.20); White Blood Count 14.4 Thou/mm3 (3.6-11.0)
[2024-07-06 05:43] LABS: Hemoglobin 7.5 g/dL (12.0-16.0)
[2024-07-06 06:06] LABS: Alanine Aminotransferase 15 U/L (10-49); Albumin, Serum 2.5 gm/dL (3.4-4.8); Albumin/Globulin Ratio 0.8 (1.2-2.2); Alkaline Phosphatase 78 U/L (46-116); Anion Gap 7 (7-16); Aspartate Amino Transferase 20 U/L (0-34); BUN/Creatinine Ratio 33 Ratio (12-20); Bilirubin,Total 0.4 mg/dL (0.3-1.2); Blood Urea Nitrogen 26 mg/dL (9-23); Calcium (Corrected) 9.2 mg/dL (8.5-10.1); Carbon Dioxide 30.9 mMol/L (20.0-31.0); Chloride 98 mMol/L (98-107); Creatinine (Component) 0.8 mg/dL (0.6-1.3); Estimated Creatinine Clearance 40.2 mL/min (>60); Glucose 170 mg/dL (74-106); Osmolality,Calculated 280 (275-295); Potassium 3.8 mMol/L (3.4-5.1); Sodium 136 mMol/L (136-145); Total Protein 5.5 gm/dL (5.7-8.2); eGFR > 60 See Note
--- NOTE | 2024-07-06 07:50 | PC.SS ---
Updated clinicals submitted on [facility] to sub-acute unit.
--- NOTE | 2024-07-06 08:58 | PC.SS ---
Update: Goals of care discussion scheduled for 03:00 pm today with patient's family.
--- NOTE | 2024-07-06 09:18 | ESPR_ITS ---
Documentation for date of: 07/06/24 Subjective Subjective Interval history: No acute overnight events noted. Seen and examined at bedside. Patient continues to be alert, wakes up to voice, and follows commands intermittently. Vital signs stable, telemetry reviewed and showed normal sinus rhythm with heart rate in the 70s. Labs showed WBC 14.4, hgb stable at 7.5, K 3.8, Mg 2.0. Primary team had goals of care discussion with patient's son, who was updated regarding patient's hospitalization and underlying malignancy will follow-up with family's preferences regarding hospice. Exam Vital Signs Temp Pulse Resp BP Pulse Ox O2 Del Method FiO2 97.6 F 71 19 138/74 H 99 Mechanical Ventilation 35 07/06/24 08:00 07/06/24 08:00 07/06/24 08:00 07/06/24 08:00 07/06/24 08:00 07/06/24 08:00 07/06/24 06:31 Narrative Exam General: alert, nonverbal, chronically ill-appearing, moves upper extremities spontaneously, can follow some commands HEENT: tracheostomy in place on mechanical ventilation, NC/AT, mucous membranes moist, bilateral sclera anicteric Cardiovascular: regular rate and rhythm, S1/S2 present, no murmurs appreciated Pulmonary: bronchial breath sounds ausculated bilaterally, Pleurx catheter in place Abdominal: soft, non-tender, non-distended, no rebound/guarding, normal bowel sounds present Musculoskeletal: muscle wasting noted in lower extremities, trace BLE pitting edema Skin: decubitus ulcer in sacrum Neuro: alert, opens eyes to voice, nonverbal at baseline, able to move upper extremities spontaneously, follows some commands Objective Labs 07/06/24 05:23 07/06/24 05:23 Labs: Laboratory Results - last 24 hr 07/05/24 07/05/24 07/06/24 11:00 14:57 05:23 WBC 13.2 H 14.4 H RBC 2.63 L 2.77 L Hgb 7.3 L 7.9 L 7.5 L Hct 22.1 L 24.1 L 23.2 L MCV 84 84 MCH 27.8 27.1 MCHC 33.0 32.3 RDW Std Deviation 49.1 H 48.6 H Plt Count 323 308 Neut % (Auto) 82 H 87 H Lymph % (Auto) 7 L 5 L [place] % (Auto) 8 7 Eos % (Auto) 2 1 Baso % (Auto) 0 0 Neut # (Auto) 10.8 H 12.5 H Lymph # (Auto) 1.0 0.6 L [place] # (Auto) 1.0 H 1.0 H Eos # (Auto) 0.3 0.2 Baso # (Auto) 0.0 0.0 Immature Gran # (Auto) 0.09 H 0.07 H Absolute Nucleated RBC 0.00 0.00 Immature Gran % 1 H 1 H Nucleated RBC % 0 0 PT 12.4 H INR 1.1 APTT 35.3 Sodium 136 Potassium 3.8 Chloride 98 Carbon Dioxide 30.9 Anion Gap 7 BUN 26 H Creatinine 0.8 Estim Creat Clear Calc 40.2 L eGFR > 60 BUN/Creatinine Ratio 33 H Glucose 170 H D Calculated Osmolality 280 Calcium 8.0 L Corrected Calcium 9.2 Magnesium 2.0 Total Bilirubin 0.4 AST 20 ALT 15 Alkaline Phosphatase 78 Total Protein 5.5 L Albumin 2.5 L Globulin 3.0 Albumin/Globulin Ratio 0.8 L ABG Interpretation ABG results: 06/29/24 06/30/24 22:53 07:24 ABG pH 7.51 H ABG pCO2 42 ABG pO2 54 L* ABG HCO3 34 H ABG O2 Saturation 91 ABG Base Excess 10 H VBG pH 7.54 VBG pCO2 34 L VBG pO2 57 VBG Base Excess 6 H Quality Measures Quality Measures sepsis Current suspected stage: ruled out Possible source: pulmonary and genitourinary Blood cultures ordered: yes Antibiotic ordered: No Advance care planning discussed with:: patient Assessment & Plan Assessment Current Active Medications: Generic Name Dose Route Start Last Admin Trade Name Freq PRN Reason Stop Dose Admin Al Hydrox/Mg Hydrox/Simethicone 30 ml 06/30/24 02:29 Mg Hyd/Al Hyd/[place] (Maalox Reg) Susp 30 Ml Udc PO 07/30/24 02:28 Q4HR PRN Heartburn or Upset Stomach Albuterol/Ipratropium 3 ml 06/30/24 02:34 Albuterol/Ipratropium (Duoneb) Rt Viviana 3 Ml Nebu INH 07/30/24 02:33 Q2HR PRN SHORTNESS OF BREATH OR WHEEZE Amiodarone HCl 200 mg 07/03/24 10:15 07/05/24 09:43 Amiodarone Hcl 200 Mg Tablet GT 08/02/24 10:14 200 mg QDAY AMARJIT Administration Apixaban 2.5 mg 07/05/24 21:00 07/05/24 20:16 Apixaban 2.5 Mg Tablet GT 08/04/24 20:59 2.5 mg BID AMARJIT Administration Atorvastatin Calcium 80 mg 06/30/24 21:00 07/05/24 20:16 Atorvastatin Calcium 20 Mg Tablet GT 07/30/24 20:59 80 mg HS AMARJIT Administration Cadexomer Iodine 0 gm 07/02/24 21:00 07/05/24 20:17 Cadexomer Iodine Gel 40 Gm Tube TOP 07/09/24 20:59 1 applicatio HS AMARJIT Administration Dextrose 25 ml 06/30/24 03:02 07/05/24 17:26 Dextrose 50%-Water Inj 50 Ml Syringe IV 07/30/24 03:01 25 ml Q15MIN PRN Administration BG 50-70 responsive npo pt Dextrose 50 ml 06/30/24 03:02 Dextrose 50%-Water Inj 50 Ml Syringe IV 07/30/24 03:01 Q15MIN PRN BG <50 OR BG <70 & pt unresponsive Glucagon 1 mg 06/30/24 03:02 Glucagon Inj 1 Mg Vial IM Q15MIN PRN BG <70, and no IV access Insulin Human Lispro 0 unit 07/04/24 18:00 07/06/24 05:11 Insulin Lispro (Admelog) 1 Unit/0.01 Ml Unit SC 08/03/24 17:59 Not Given Q6HR AMARJIT Protocol Lactulose 20 gm 06/30/24 03:04 Lactulose Syrup 20 Gm/30 Ml Udc PO 07/30/24 08:59 QDAY PRN Constipation Protocol Lansoprazole 30 mg 06/30/24 09:00 07/05/24 09:43 Lansoprazole 30 Mg Tab. GT 07/30/24 08:59 30 mg QDAY AMARJIT Administration Levofloxacin 500 mg 07/03/24 10:15 07/05/24 09:44 Levofloxacin 250 Mg Tablet GT 07/10/24 10:14 500 mg Q48H AMARJIT Administration Magnesium Hydroxide 30 ml 06/30/24 02:29 Milk Of Magnesia Susp 30 Ml Udc PO 07/30/24 02:28 QDAY PRN CONSTIPATION Protocol Pharmacy Consult 1 each 06/30/24 09:00 Pharmacy Renal Dose Adjustment 1 Ea XX 07/30/24 08:59 QDAY PRN CONSULT Sodium Chloride 3 ml 06/30/24 03:27 Sodium Chloride Rt Viviana 0.9% 3 Ml Nebu INH 07/30/24 03:26 PRN PRN SOLN Sodium Chloride 1 gm 07/03/24 10:30 07/05/24 20:16 Sodium Chloride 1 Gm Tablet GT 08/02/24 10:29 1 gm BID AMARJIT Administration Plan Monisha Guaman is an 83-year-old female with past medical history of multiple strokes leading to chronic trach and PEG and resides at subacute center, seizure disorder, atrial fibrillation on amiodarone and eliquis, HFpEF (EF 55-60% on 04/2024), malignant pleural effusions on Pleurx catheter, DVT, hypertension, and type 2 diabetes mellitus who presented on 06/30 for bradycardia. Cardiology consulted for bradycardia, HFpEF, and history of atrial fibrillation. #Bradycardia, resolved #History of A-fib on amiodarone and Eliquis #History of DVT Initially presented with heart rate in 40s-50s while noted to be on metoprolol and amiodarone. However, also noted to have initial potassium of 6.5 with associated EKG changes, such as prolonged QRS complexes and peaked T waves in leads V3, V4, and II, which may be primary etiology of patient's bradycardia in setting of amiodarone and metoprolol. Lower suspicion that amiodarone and/or metoprolol are cause of bradycardia given that patient has been on these medications since being admitted to [facility] in March. Hyperkalemia itself suspected to be due to prerenal CELESTINO in setting of GI losses (lactulose) and renal losses (lasix). Noted that lasix leads to hypokalemia but renal injury in and of itself may have led to abnormal electrolyte balance, including hyperkalemia, which may have caused sinus bradycardia as mentioned above. At this time, recommend to continue with amiodarone, hold metoprolol, and to give lasix as PRN (see #HFpEF below). [id number] score: 8, 10.8% % risk of stroke per year HAS-BLED score: 3, high risk of major bleeding ? Continue amiodarone 200 mg daily ? Once no more procedures are planned, consider restarting eliquis given that hemoglobin stable, no signs of active bleeding, FOBT negative, and patient's history of DVT #HFpEF (EF 55 to 60% 04/2024) BNP > 1000 upon admission. Echo 04/2024: LV appears normal with EF 55-60%, grade II diastolic dysfunction. RVSP 45 mmHg. Mod-severe MR, mild MAC, mild- moderate TR. Noted to have rx of lasix 20 mg and metoprolol tartrate 25 mg ? Hold metoprolol; if heart rate increases, can start at 12.5 mg via GT BID ? Recommend to change lasix Rx from scheduled to as needed if patient is fluid overloaded #Severe hypoosmolar hyponatremia #Acute kidney injury, resolved #Hyperkalemia, resolved #Urinary tract infection #Pneumonia #Parapneumonic effusion #Sacral decubitus ulcer #Chronic respiratory failure status post tracheostomy #PEG tube Feeding #Normocytic normochromic anemia #Diabetes mellitus type 2 #Constipation #Multiple CVA by history #Seizure disorder by history #Hypokalemia, resolved #Hypocalcemia, resolved #Lactic acidosis, resolved ? Continue management per primary team and other consultants ----- Plan discussed with attending physician Dr. Ismael Trejo MD PGY-1 Internal Medicine Attending Provider Attestation/Addendum I have personally seen and examined the patient separately on the above date of service and discussed the plan of care with the resident. I reviewed the resident Dr. Woo Trejo consultation progress note and agree with the resident findings and plan in the note above and have also edited the documentation to reflect my findings and plan. Alfa Guevara M.D. Interventional Cardiology
[2024-07-06] MEDS: AMIODARONE HCL 200 MG TABLET GT (09:20)
[2024-07-06] MEDS: APIXABAN 2.5 MG TABLET GT (09:21)
[2024-07-06] MEDS: SODIUM CHLORIDE 1 GM TABLET GT (09:21)
[2024-07-06] MEDS: LANSOPRAZOLE 30 MG TAB.RAP.DR GT (09:21)
--- NOTE | 2024-07-06 10:39 | PD.RESPRO ---
Documentation for date of: 07/06/24 Subjective Subjective Interval history: This is an 83-year-old female with chronic tracheotomy and PEG tube following multiple strokes, seizure disorder, A-fib, HTN, T2DM, 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 Patient nonverbal. HPI collected from chart review. Evidently she was on ANTIBIOTIC for UTI. She presented with BP 134/64, HR 46, RR 32, afebrile, on mechanical ventilation. Labs showed sodium 115, potassium 6.5, serum osmole 259, chloride 77, BUN/CR 76/1.8, GLUCOSE 177, lactic acid 2.2, BNP 1037, H/H 6.9/19.6. ABG showed pH 7.51, PO254, bicarb 30.9. UA showed WBC 129, positive LE and rare bacteria. EKG showed sinus bradycardia without T wave abnormalities. Unable to assess mentation or baseline secondary to AMS which is baseline for her. In the ED, her initial vitals were blood pressure of 134/64, pulse 46, respiratory rate 32, temperature 98.0, saturating well on mechanical ventilator with 43% FiO2 which is her baseline at the subacute. Lab results are significant for WBC of 16.7, hemoglobin/hematocrit of 6.6/19.6, sodium 115, potassium 6.5, chloride 77, BUN/creatinine 76/1.8, glucose 177, osmolality 259, lactic acid 2.2, BNP 1037, procalcitonin 0.96. ABG was obtained which shows pH of 7.51, PO2 of 54, bicarb from CHEM panel was 30.9. Urinalysis shows 121 WBCs, positive leukocyte esterase and rare bacteria. As per patient's RN, the Hector catheter appears recently exchanged. Initially she was given 2 L NS boluses and started on 3% hypertonic. Sodium corrected from 123 to 127. Currently 3% hypertonic was discontinued. Potassium 5.2. Also given KAYEXALATE and, ALBUTEROL and CALCIUM GLUCONATE, potassium improved to 5.2. Patient currently in ICU. Nephrology was consulted for management of CELESTINO. Recommendations as listed below. 07/01/2024 patient currently seen in ICU. Remains nonverbal. Opens her eyes but do not track. Overnight no acute events. Blood pressure 138/60, heart rate 72. WBC 12.5, hemoglobin 7.8, platelets 401.Sodium 126, potassium 3.5, BUN 46, creatinine 1.2, glucose 144, calcium 9.5, LFTs normal, albumin 2.6. Patient currently on desmopressin and D5W. Noted to have good urine output. 07/02/2024 examined at bedside in ICU. Remains nonverbal, opens eyes spontaneously, does not track. No overnight events. BP 134/60, HR 72. Leukocytosis resolved. Hgb stable 8.0. CR normal. Sodium 127, stable.will discontinue DESMOPRESSIN. Urine output normal. 07/03/2024 examined at bedside in ICU. Hemodynamically stable. Mental status appears at baseline. Appears comfortable without signs of distress. Plan to downgrade Q2H for today. Sodium remains 127. Will salt tablets BID. 07/04/2024 exmained at bedside, on tele. Appears at baseline. Sodium 131. WBC 12.3, Hgb 7.9, PLT 460. Urine output was 1250 cc overnight. Has significant edema in all extremities. Appears to have soft/watery stool. 07/05/2024 examined at bedside. Appears at baseline. On salt tabs BID, Sodium 133 imporving. Renal function stable, CR 0.8 EGFR >60. Urine output 800 overnight. Edema improving. 07/06/2024 examined at bedside. Mentation is at baseline. Sodium 136 today, we discontinued salt tabs. Creatinine function stable and WNL. Nephrology team will sign off. Consult as needed. Exam Vital Signs Temp Pulse Resp BP Pulse Ox O2 Del Method FiO2 97.6 F 71 19 138/74 H 99 Mechanical Ventilation 35 07/06/24 08:00 07/06/24 09:20 07/06/24 08:00 07/06/24 09:20 07/06/24 08:00 07/06/24 08:00 07/06/24 06:31 Narrative Exam GENERAL APPEARANCE: Elderly frail lady currently seen in ICU Status post trach and on vent NECK: Neck supple, no JVD or bruit CARDIOVASCULAR: Heart regular, no murmurs LUNGS/CHEST: Bilateral rhonchi noted ABDOMEN: Soft, nontender, nondistended. No masses. Normal bowel sounds. ++ Feeding tube EXTREMITIES: Trace edema in the lower and upper extremities SKIN: Dry skin MUSCULOSKELETAL: Patient seems to be in bed with contractures NEUROLOGICAL : Barely arousable Objective Labs 07/06/24 05:23 07/06/24 05:23 Labs: Laboratory Results - last 24 hr 07/05/24 07/05/24 07/06/24 11:00 14:57 05:23 WBC 13.2 H 14.4 H RBC 2.63 L 2.77 L Hgb 7.3 L 7.9 L 7.5 L Hct 22.1 L 24.1 L 23.2 L MCV 84 84 MCH 27.8 27.1 MCHC 33.0 32.3 RDW Std Deviation 49.1 H 48.6 H Plt Count 323 308 Neut % (Auto) 82 H 87 H Lymph % (Auto) 7 L 5 L [place] % (Auto) 8 7 Eos % (Auto) 2 1 Baso % (Auto) 0 0 Neut # (Auto) 10.8 H 12.5 H Lymph # (Auto) 1.0 0.6 L [place] # (Auto) 1.0 H 1.0 H Eos # (Auto) 0.3 0.2 Baso # (Auto) 0.0 0.0 Immature Gran # (Auto) 0.09 H 0.07 H Absolute Nucleated RBC 0.00 0.00 Immature Gran % 1 H 1 H Nucleated RBC % 0 0 PT 12.4 H INR 1.1 APTT 35.3 Sodium 136 Potassium 3.8 Chloride 98 Carbon Dioxide 30.9 Anion Gap 7 BUN 26 H Creatinine 0.8 Estim Creat Clear Calc 40.2 L eGFR > 60 BUN/Creatinine Ratio 33 H Glucose 170 H D Calculated Osmolality 280 Calcium 8.0 L Corrected Calcium 9.2 Magnesium 2.0 Total Bilirubin 0.4 AST 20 ALT 15 Alkaline Phosphatase 78 Total Protein 5.5 L Albumin 2.5 L Globulin 3.0 Albumin/Globulin Ratio 0.8 L ABG Interpretation ABG results: 06/29/24 06/30/24 22:53 07:24 ABG pH 7.51 H ABG pCO2 42 ABG pO2 54 L* ABG HCO3 34 H ABG O2 Saturation 91 ABG Base Excess 10 H VBG pH 7.54 VBG pCO2 34 L VBG pO2 57 VBG Base Excess 6 H Quality Measures Quality Measures sepsis Current suspected stage: ruled out Possible source: pulmonary and genitourinary Blood cultures ordered: yes Antibiotic ordered: No Advance care planning discussed with:: patient Assessment & Plan Assessment Current Active Medications: Generic Name Dose Route Start Last Admin Trade Name Freq PRN Reason Stop Dose Admin Al Hydrox/Mg Hydrox/Simethicone 30 ml 06/30/24 02:29 Mg Hyd/Al Hyd/[place] (Maalox Reg) Susp 30 Ml Udc PO 07/30/24 02:28 Q4HR PRN Heartburn or Upset Stomach Albuterol/Ipratropium 3 ml 06/30/24 02:34 Albuterol/Ipratropium (Duoneb) Rt Viviana 3 Ml Nebu INH 07/30/24 02:33 Q2HR PRN SHORTNESS OF BREATH OR WHEEZE Amiodarone HCl 200 mg 07/03/24 10:15 07/06/24 09:20 Amiodarone Hcl 200 Mg Tablet GT 08/02/24 10:14 200 mg QDAY AMARJIT Administration Apixaban 2.5 mg 07/05/24 21:00 07/06/24 09:21 Apixaban 2.5 Mg Tablet GT 08/04/24 20:59 2.5 mg BID AMARJIT Administration Atorvastatin Calcium 80 mg 06/30/24 21:00 07/05/24 20:16 Atorvastatin Calcium 20 Mg Tablet GT 07/30/24 20:59 80 mg HS AMARJIT Administration Cadexomer Iodine 0 gm 07/02/24 21:00 07/05/24 20:17 Cadexomer Iodine Gel 40 Gm Tube TOP 07/09/24 20:59 1 applicatio HS AMARJIT Administration Dextrose 25 ml 06/30/24 03:02 07/05/24 17:26 Dextrose 50%-Water Inj 50 Ml Syringe IV 07/30/24 03:01 25 ml Q15MIN PRN Administration BG 50-70 responsive npo pt Dextrose 50 ml 06/30/24 03:02 Dextrose 50%-Water Inj 50 Ml Syringe IV 07/30/24 03:01 Q15MIN PRN BG <50 OR BG <70 & pt unresponsive Glucagon 1 mg 06/30/24 03:02 Glucagon Inj 1 Mg Vial IM Q15MIN PRN BG <70, and no IV access Insulin Human Lispro 0 unit 07/04/24 18:00 07/06/24 05:11 Insulin Lispro (Admelog) 1 Unit/0.01 Ml Unit SC 08/03/24 17:59 Not Given Q6HR AMARJIT Protocol Lactulose 20 gm 06/30/24 03:04 Lactulose Syrup 20 Gm/30 Ml Udc PO 07/30/24 08:59 QDAY PRN Constipation Protocol Lansoprazole 30 mg 06/30/24 09:00 07/06/24 09:21 Lansoprazole 30 Mg Tab. GT 07/30/24 08:59 30 mg QDAY AMARJIT Administration Levofloxacin 500 mg 07/03/24 10:15 07/05/24 09:44 Levofloxacin 250 Mg Tablet GT 07/10/24 10:14 500 mg Q48H AMARJIT Administration Magnesium Hydroxide 30 ml 06/30/24 02:29 Milk Of Magnesia Susp 30 Ml Udc PO 07/30/24 02:28 QDAY PRN CONSTIPATION Protocol Pharmacy Consult 1 each 06/30/24 09:00 Pharmacy Renal Dose Adjustment 1 Ea XX 07/30/24 08:59 QDAY PRN CONSULT Sodium Chloride 3 ml 06/30/24 03:27 Sodium Chloride Rt Viviana 0.9% 3 Ml Nebu INH 07/30/24 03:26 PRN PRN SOLN Sodium Chloride 1 gm 07/03/24 10:30 07/06/24 09:21 Sodium Chloride 1 Gm Tablet GT 08/02/24 10:29 1 gm BID AMARJIT Administration Plan 83-year-old female with chronic tracheotomy and PEG tube following multiple strokes, seizure disorder, A-fib, HTN, T2DM, 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 Found to have severe hyponatremia, hyperkalemia and CELESTINO. Sodium 136 today. Discontinued salt tablets. Renal function stable. Nephrology will sign off at this time. Please consult as needed Hypotonic, hypervolemic hyponatremia Sodium stable at 136 today. ? Discontinued salt tablets ? Daily labs CELESTINO, likely pre-renal (resolved) Likely due to hypoperfusion from sepsis, fluid shifts, or renal vasoconstriction Previously normal renal function, presenting with CR 1.8, BUN 66, and EGFR 28. Creatinine markedly improved with fluids. ? Renally dose meds, avoid overdiuresis and NEPHROTOXINS ? Daily CMP Hypokalemia (resolved) replace KCL UTI Has been on outpatient ANTIBIOTICS for UTI. UA suggest UTI. ? Continue ANTIBIOTICS per primary team. Bradycardia (resolved) Sinus bradycardia on EKG. Recurrent bradycardia per chart review. Possibly related to AMIODARONE which is currently on hold. Less likely d/t hyperkalemia, no related EKG abnormalities. ? Managed by primary team Lactic acidosis, type I versus type II (resolved) Possibly in setting of sepsis versus poor clearance. ? Managed by primary team History of multiple strokes History of seizure disorder Patient nonverbal at baseline History of A-fib History of hypertension Bilateral pneumonia Acute normocytic anemia Leukocytosis Sepsis UTI Pneumonia Decubitus ulcer Concern for osteomyelitis Constipation PEG tube feeding ? Managed by primary team Appreciate the opportunity to participate in the care of this patient. Please consult as needed. Patient case was discussed with attending, Dr. Babin. Ed Solorio DO PGYI Attending Provider Attestation/Addendum Patient seen and examined with resident physician Dr. Ward. Note reviewed, agree with findings and recommendations. Sodium seems to be better with salt tablets. Noted to have rectal tube. Will monitor bicarbonate /electrolytes closely. s/p thoracentesis for bilateral pleural effusions. S/p trach and PEG.
--- NOTE | 2024-07-06 11:51 | PC.NURSE ---
IR came to drain Pleurix. Pleural fluid of 5mL drained.
--- NOTE | 2024-07-06 11:57 | PD.RESPRO ---
Documentation for date of: 07/06/24 Exam Vital Signs Temp Pulse Resp BP Pulse Ox O2 Del Method FiO2 97.6 F 71 19 138/74 H 99 Mechanical Ventilation 35 07/06/24 08:00 07/06/24 09:20 07/06/24 08:00 07/06/24 09:20 07/06/24 08:00 07/06/24 08:00 07/06/24 06:31 Objective Labs 07/06/24 05:23 07/06/24 05:23 Labs: Laboratory Results - last 24 hr 07/05/24 07/05/24 07/06/24 11:00 14:57 05:23 WBC 13.2 H 14.4 H RBC 2.63 L 2.77 L Hgb 7.3 L 7.9 L 7.5 L Hct 22.1 L 24.1 L 23.2 L MCV 84 84 MCH 27.8 27.1 MCHC 33.0 32.3 RDW Std Deviation 49.1 H 48.6 H Plt Count 323 308 Neut % (Auto) 82 H 87 H Lymph % (Auto) 7 L 5 L [place] % (Auto) 8 7 Eos % (Auto) 2 1 Baso % (Auto) 0 0 Neut # (Auto) 10.8 H 12.5 H Lymph # (Auto) 1.0 0.6 L [place] # (Auto) 1.0 H 1.0 H Eos # (Auto) 0.3 0.2 Baso # (Auto) 0.0 0.0 Immature Gran # (Auto) 0.09 H 0.07 H Absolute Nucleated RBC 0.00 0.00 Immature Gran % 1 H 1 H Nucleated RBC % 0 0 Sodium 136 Potassium 3.8 Chloride 98 Carbon Dioxide 30.9 Anion Gap 7 BUN 26 H Creatinine 0.8 Estim Creat Clear Calc 40.2 L eGFR > 60 BUN/Creatinine Ratio 33 H Glucose 170 H D Calculated Osmolality 280 Calcium 8.0 L Corrected Calcium 9.2 Magnesium 2.0 Total Bilirubin 0.4 AST 20 ALT 15 Alkaline Phosphatase 78 Total Protein 5.5 L Albumin 2.5 L Globulin 3.0 Albumin/Globulin Ratio 0.8 L ABG Interpretation ABG results: 06/29/24 06/30/24 22:53 07:24 ABG pH 7.51 H ABG pCO2 42 ABG pO2 54 L* ABG HCO3 34 H ABG O2 Saturation 91 ABG Base Excess 10 H VBG pH 7.54 VBG pCO2 34 L VBG pO2 57 VBG Base Excess 6 H Quality Measures Quality Measures sepsis Possible source: pulmonary and genitourinary Blood cultures ordered: yes Assessment & Plan Assessment Current Active Medications: Generic Name Dose Route Start Last Admin Trade Name Freq PRN Reason Stop Dose Admin Al Hydrox/Mg Hydrox/Simethicone 30 ml 06/30/24 02:29 Mg Hyd/Al Hyd/[place] (Maalox Reg) Susp 30 Ml Udc PO 07/30/24 02:28 Q4HR PRN Heartburn or Upset Stomach Albuterol/Ipratropium 3 ml 06/30/24 02:34 Albuterol/Ipratropium (Duoneb) Rt Viv[place] 3 Ml Nebu INH 07/30/24 02:33 Q2HR PRN SHORTNESS OF BREATH OR WHEEZE Amiodarone HCl 200 mg 07/03/24 10:15 07/06/24 09:20 Amiodarone Hcl 200 Mg Tablet GT 08/02/24 10:14 200 mg QDAY AMARJIT Administration Apixaban 2.5 mg 07/05/24 21:00 07/06/24 09:21 Apixaban 2.5 Mg Tablet GT 08/04/24 20:59 2.5 mg BID AMARJIT Administration Atorvastatin Calcium 80 mg 06/30/24 21:00 07/05/24 20:16 Atorvastatin Calcium 20 Mg Tablet GT 07/30/24 20:59 80 mg HS AMARJIT Administration Cadexomer Iodine 0 gm 07/02/24 21:00 07/05/24 20:17 Cadexomer Iodine Gel 40 Gm Tube TOP 07/09/24 20:59 1 applicatio HS AMARJIT Administration Dextrose 25 ml 06/30/24 03:02 07/05/24 17:26 Dextrose 50%-Water Inj 50 Ml Syringe IV 07/30/24 03:01 25 ml Q15MIN PRN Administration BG 50-70 responsive npo pt Dextrose 50 ml 06/30/24 03:02 Dextrose 50%-Water Inj 50 Ml Syringe IV 07/30/24 03:01 Q15MIN PRN BG <50 OR BG <70 & pt unresponsive Glucagon 1 mg 06/30/24 03:02 Glucagon Inj 1 Mg Vial IM Q15MIN PRN BG <70, and no IV access Insulin Human Lispro 0 unit 07/04/24 18:00 07/06/24 05:11 Insulin Lispro (Admelog) 1 Unit/0.01 Ml Unit SC 08/03/24 17:59 Not Given Q6HR AMARJIT Protocol Lactulose 20 gm 06/30/24 03:04 Lactulose Syrup 20 Gm/30 Ml Udc PO 07/30/24 08:59 QDAY PRN Constipation Protocol Lansoprazole 30 mg 06/30/24 09:00 07/06/24 09:21 Lansoprazole 30 Mg Tab.Rap. GT 07/30/24 08:59 30 mg QDAY AMARJIT Administration Levofloxacin 500 mg 07/03/24 10:15 07/05/24 09:44 Levofloxacin 250 Mg Tablet GT 07/10/24 10:14 500 mg Q48H AMARJIT Administration Magnesium Hydroxide 30 ml 06/30/24 02:29 Milk Of Magnesia Susp 30 Ml Udc PO 07/30/24 02:28 QDAY PRN CONSTIPATION Protocol Pharmacy Consult 1 each 06/30/24 09:00 Pharmacy Renal Dose Adjustment 1 Ea XX 07/30/24 08:59 QDAY PRN CONSULT Sodium Chloride 3 ml 06/30/24 03:27 Sodium Chloride Rt Viviana 0.9% 3 Ml Nebu INH 07/30/24 03:26 PRN PRN SOLN Attending Provider Attestation/Addendum I reviewed labs, imaging, EKG, home medications and prior available records. Face to face evaluation was performed by me. I have personally examined the patient and discussed assessment and plan with the IM team. I reviewed the resident note and agree with the plan with exceptions as below. Acute hypotension, resolved Sinus bradycardia, resolved Hyponatremia, resolved Sepsis Hospital-acquired pneumonia Pleural effusion CELESTINO, resolved Atrial fibrillation with controlled ventricular response Patient had facial asymmetry. Ordered CT head that showed no acute changes Sodium improved. Discussed with nephrology: Changed Bicitra to salt tablets Continue to monitor BMP Heart rate is stable. Discussed with cardiology: Resumed amiodarone. Continue to hold metoprolol Monitor kidney function: Creatinine improved and back to baseline Avoid nephrotoxins. Renally dosed medications Continue levofloxacin Started Eliquis per cardiology recommendations Follow-up C. difficile Consulted IR for pleurocentesis: Status post CT-guided pleurocentesis with removal of about 30 cc Discussed goals of care with family: Will transition to [facility]pc with hospice/comfort care. Discussed with family
[2024-07-06] MEDS: INSULIN LISPRO (AdmeLOG) 1 UNIT/0.01 ML UNIT SC (12:26)
--- NOTE | 2024-07-06 14:51 | PC.SS ---
Rounding Note: GOC discussion to be conducted upon patient's return to sub-acute.
--- NOTE | 2024-07-06 14:54 | PC.SS ---
SUPERVISOR CD AREA contacted sub-acute staff to provide update that discharge orders are in for the patient. Sub-acute staff to update SUPERVISOR CD [employer]A on latest patient can be transitioned back to sub-acute today.
--- NOTE | 2024-07-06 16:44 | PD.RESDS ---
Planned Discharge Date 07/06/24 DS: Providers Provider Date of admission: 06/30/24 02:30 Primary care physician: Physician No Primary/Family Admitting Provider: Mdaeline Bansal MD Attending Provider on Admission: Oliver Figueroa MD Consults: 06/30/24 03:00 Referral Wound Care Routine Comment: 06/30/24 03:01 Consult to Nephrology Routine Comment: Severe hyponatremia and hyperkalemia Consulting Provider: Bryan Babin 06/30/24 03:08 Referral Registered Dietitian Routine Comment: 07/02/24 17:21 Consult to Cardiology Routine Comment: Bradycardia Consulting Provider: Alfa Guevara 07/04/24 11:34 Referral Hospice Routine Comment: Attending Provider on DC: Oliver Figueroa MD Discharging Provider: Oliver Figueroa MD Anticipated date of discharge: 07/06/24 DS: Diagnosis Problem List Completed Was Problem List Reviewed/Reconciled?: Yes Hospital Course Hospital Course Hospital course: Hospital course: Ms. Guaman is a 83-year-old female patient with past medical history of multiple CVA, seizure disorder, atrial fibrillation, hypertension, type 2 diabetes mellitus, nonverbal status post tracheostomy and PEG tube placement who presented to [facility]formerly [facility] emergency department on 06/30/2024 from subacute with chief complaint of bradycardia. Patient was found to have severe hypoosmolar hyponatremia, overcorrected with hypertonic saline and patient was admitted to ICU for further management. Patient sodium on presentation was 115, was overcorrected patient was given desmopressin and D5W in ICU, patient was downgraded telemetry with improved sodium levels. Patient was also bradycardic, patient on metoprolol tartrate at home, was discontinued patient's heart rate eventually improved and was resumed on amiodarone and Eliquis. Patient did have sepsis secondary to urinary tract infection, pneumonia and the sacral decubitus ulcer, was given IV antibiotics, cultures were not remarkable, patient responded well to Levaquin and was planned to be discharged on it to complete the treatment course. Patient's Pleurx catheter unable to drain the parapneumonic effusion, patient had ultrasound-guided thoracentesis done, had minimal output cytology and culture was ordered. Patient tolerating PEG tube feeding, does have increased rectal output, did have a rectal tube. The case was discussed with patient's son considering patient does have underlying malignancy which the family does not want worked up, the son mentioned transitioning to hospice care. Multiple attempts of goals of care discussion done, family indecisive. The case was discussed with the subacute physician as patient was deemed stable enough to be discharged, subacute physician will do goals of care discussion with patient's family over conference call. Patient is deemed stable to be discharged to subacute, patient responded well to the hospital treatment. Discharge diagnoses #Severe hypoosmolar hyponatremia #Acute kidney injury, resolved #Hyperkalemia, resolved #Sepsis secondary to #Urinary tract infection #Pneumonia #Parapneumonic effusion #Sacral decubitus ulcer #Chronic respiratory failure status post tracheostomy #Bradycardia, resolved #Heart failure with preserved ejection fraction EF 55 to 60% #Atrial fibrillation #PEG tube Feeding #Normocytic normochromic anemia #Diabetes mellitus type 2 #Multiple CVA by history #Seizure disorder by history #Hypokalemia-resolved #Hypocalcemia resolved #Lactic acidosis resolved Case discussed with Attending Dr. Figueroa. Carl Fitzgerald PGY1 Disclaimer: This note was dictated by speech recognition. Minor errors in spray machine tender may be present due to voice recognition software. Time Spent with Patient Time attestation: Total time spent providing and/or coordinating discharge services: Greater than 35 minutes Time spent: Greater than 30 minutes Exam Vital Signs Temp Pulse Resp BP Pulse Ox O2 Del Method FiO2 97.4 F 83 20 143/59 H 100 Mechanical Ventilation 35 07/06/24 12:00 07/06/24 16:00 07/06/24 12:00 07/06/24 12:00 07/06/24 13:41 07/06/24 12:00 07/06/24 16:00 Narrative Exam General: alert, nonverbal, chronically ill-appearing, moves upper extremities spontaneously, can follow some commands HEENT: tracheostomy in place on mechanical ventilation, NC/AT, mucous membranes moist, bilateral sclera anicteric Cardiovascular: regular rate and rhythm, S1/S2 present, no murmurs appreciated Pulmonary: bronchial breath sounds ausculated bilaterally, Pleurx catheter in place Abdominal: soft, non-tender, non-distended, no rebound/guarding, normal bowel sounds present positive PEG tube Musculoskeletal: muscle wasting noted in lower extremities, trace BLE pitting edema Skin: decubitus ulcer in sacrum Neuro: alert, opens eyes to voice, nonverbal at baseline, able to move upper extremities spontaneously, follows some commands Discharge Plan Plan Patient Disposition: Xfer Skilled Nsg Fac (SNF) Patient condition on transfer: Stable Prescriptions/Referrals Prescriptions/Med Rec: New Iodosorb 0.9 % Gel 40 g top HS 30 Days Qty: 40 0RF Eliquis 2.5 mg Tablet 2.5 mg G-tube BID 30 Days Qty: 60 0RF lansoprazole 30 mg Tablet,Disintegrat, Delay Rel 30 mg G-tube QDAY Qty: 30 0RF levofloxacin 250 mg Tablet 500 mg G-tube Q48H 10 Days Qty: 10 0RF Continued magnesium hydroxide [Milk of Magnesia] 400 mg/5 mL suspension 30 ml PO QDAY PRN (Reason: constipation) polyethylene glycol 3350 [Miralax] 17 gram/dose powder 17 g feeding tube QDAY furosemide 20 mg tablet 20 mg feeding tube QDAY ascorbic acid (vitamin C) [Vitamin C] 500 mg tablet 500 mg feeding tube BID multivitamin [Daily Multi-Vitamin] Tablet 1 tab feeding tube QAM zinc sulfate 50 mg zinc (220 mg) capsule 50 mg feeding tube QDAY carbamide peroxide 6.5 % drops 5 drp otic (ear) .Q61 atorvastatin 80 mg tablet 80 mg feeding tube HS acetaminophen 325 mg tablet 325 mg feeding tube Q6H PRN (Reason: fever or pain) ipratropium-albuterol 0.5 mg-3 mg(2.5 mg base)/3 mL solution for nebulization 3 ml INHALATION Q6H PRN (Reason: shortness of breath) amiodarone 200 mg tablet 200 mg feeding tube DAILY bisacodyl [Gentle Laxative (bisacodyl)] 5 mg tablet,delayed release (DR/EC) 10 mg feeding tube Q6H PRN (Reason: constipation) Novolin R FlexPen 100 unit/mL (3 mL) insulin pen 1 sliding scale dose SUBCUT Q6H lactulose [Enulose] 10 gram/15 mL solution 10 g feeding tube Q6H sennosides [Black-Draught Lax-Senna] 8.6 mg tablet 8.6 mg feeding tube BID Calcium 600 + D(3) 600 mg-5 mcg (200 unit) capsule 1 cap PO DAILY Rx Instructions: per Peg tube ceftriaxone 1 gram recon soln 1 g IV QDAY 5 Days Qty: 5 0RF Held amlodipine 10 mg tablet 10 mg feeding tube QDAY Hold Instructions: Resume on 07/13/24. Discontinued sodium chloride 1,000 mg tablet,soluble 1,000 mg feeding tube QDAY metoprolol tartrate 25 mg tablet 25 mg feeding tube Q12H Referrals: Alfa Guevara MD [Physician] - No Primary/Family,Physician [Primary Care Provider] - Patient/Caregiver Discharge Instructions Other Discharge Activity Instructions:: Continue Levaquin for 10 days to complete treatment Stop Metoprolol for bradycardia, follow up with PCP to resume amlodipine. Continue Amiodarone and Eliquis for Atrial Fibrillation Continue Wound Care Continue using Pleurx Catheter to drain as needed, continue catheter care. Follow up with PCP in 1 week. Goals of care discussion by Subacute with family regarding custodial care goals. Education Materials: Thoracentesis Dc Print Language: [employer] Stand Alone Forms: Rani Award Info., Patient Portal Info Letter Discharge Order Discharge Orders: Discharge (Routine); Ordered 07/06/24 Ordered By: Carl Fitzgerald Quality Discharge Quality Measures VTE prophylaxis Attestestation Attestation I reviewed labs, imaging, EKG, home medications and prior available records. Face to face evaluation was performed by me. I have personally examined the patient and discussed assessment and plan with the IM team. I reviewed the resident note and agree with the plan with exceptions as below. See my addendum for the same date of service Time spent is 40 minutes. > 50% of the time was on patient education/coordination of care.
== END 2024-07-06 17:00 | disposition skilled nursing facility (03) | DRG 871 ==
LOC: SERX 06-30 01:30 → SERHOLD 06-30 02:33 → S2SX 06-30 04:57 → S2NX 07-03 18:08
PROVIDERS: Radiology Diagnostic Radiology; Admitting Provider Student in an Organized Health Care Education/Training Program; Emergency Provider Emergency Medicine; Visit Provider Student in an Organized Health Care Education/Training Program
DX: A41.9 Sepsis, unspecified organism (principal); J18.9 Pneumonia, unspecified organism; J96.21 Acute and chronic respiratory failure with hypoxia; I50.32 Chronic diastolic (congestive) heart failure; N39.0 Urinary tract infection, site not specified; E87.1 Hypo-osmolality and hyponatremia; N17.9 Acute kidney failure, unspecified; E87.20 Acidosis, unspecified; J91.8 Pleural effusion in other conditions classified elsewhere; R00.1 Bradycardia, unspecified; G40.909 Epilepsy, unspecified, not intractable, without status epilepticus; I11.0 Hypertensive heart disease with heart failure; K59.00 Constipation, unspecified; E11.9 Type 2 diabetes mellitus without complications; Z93.1 Gastrostomy status; E87.5 Hyperkalemia; D64.9 Anemia, unspecified; E87.6 Hypokalemia; L89.159 Pressure ulcer of sacral region, unspecified stage; E86.1 Hypovolemia; I48.0 Paroxysmal atrial fibrillation; R65.20 Severe sepsis without septic shock; Y95 Nosocomial condition; Z66 Do not resuscitate; E87.8 Other disorders of electrolyte and fluid balance, not elsewhere classified; E83.51 Hypocalcemia; Z86.73 Personal history of transient ischemic attack (TIA), and cerebral infarction without residual deficits; Z51.5 Encounter for palliative care; Z79.4 Long term (current) use of insulin; Z79.899 Other long term (current) drug therapy; Z86.718 Personal history of other venous thrombosis and embolism; Z93.0 Tracheostomy status
CPT/HCPCS: 36415; 36430; 36600; 70450; 71045; 74176; 76999; 80048; 80053; 80061; 80069; 81001; 82150; 82803; 82945; 83036; 83605; 83615; 83690; 83735; 83880; 84100; 84145; 84157; 84443; 84484; 85014; 85018; 85025; 85610; 85652; 85730; 86140; 86850; 86900; 86901; 86923; 87040; 87070; 87075; 87081; 87086; 87205; 87493; 87811; 89051; 93005; 93970; 94003; 94640; 96361; 96365; 96366; 99291; C1729; J0613; J1643; J1815; J1938; J2543; J2597; J3475; J3490; J7030; J7060; J7131; P9016; A9270

== ENCOUNTER 2024-08-03 11:47 | Inpatient (IN) | payer MEDICARE, OTHER, SELFPAY ==
[2024-08-03] VITALS (18 sets, daily range): BP systolic 128–147; BP diastolic 58–86; PULSE 82–103; RESP 17–35; TEMP 36–37.3; O2SAT 92–100
--- NOTE | 2024-08-03 12:17 | PD.EDSOB ---
ED SOB =RME/HPI General Chief Complaint: Shortness of Breath/Dyspnea Stated Complaint: SOB Time Seen by Provider: 08/03/24 12:44 Arrival date/time: 08/03/24 11:47 Limitations: no limitations RME / HPI RME / HPI Narrative: 83 year old female with history of chronically trached with PEG tube due to multiple strokes, seizure disorder, A-fib, hypertension, type 2 diabetes mellitus presents to the ED BIB [facility] for evaluation of shortness of breath today. Per RN, nursing staff at subacute noticed patient appeared to have diffiuclty breathing today. Additionally noted facial droop today that is new for the patient. Patient while in the ED is nonverbal and unable to provide any additional history. Related Data Home Medications ?Medication ?Instructions ?Recorded ?Confirmed acetaminophen 325 mg tablet 325 mg feeding tube Q6H PRN fever 04/25/24 06/09/24 or pain amiodarone 200 mg tablet 200 mg feeding tube DAILY 04/25/24 06/09/24 amlodipine 10 mg tablet 10 mg feeding tube QDAY 04/25/24 06/09/24 Held on 07/06/24. Instructions: Resume on 07/13/24. atorvastatin 80 mg tablet 80 mg feeding tube HS 04/25/24 06/09/24 bisacodyl 5 mg tablet,delayed 10 mg feeding tube Q6H PRN 04/25/24 06/09/24 release (Gentle Laxative constipation (bisacodyl)) insulin regular human 100 unit/mL 1 sliding scale dose subcut Q6H 04/25/24 06/09/24 (3 mL) subcutaneous pen (Novolin R FlexPen) ipratropium 0.5 mg-albuterol 3 mg 3 ml inhalation Q6H PRN shortness 04/25/24 06/09/24 (2.5 mg base)/3 mL nebulization of breath soln lactulose 10 gram/15 mL oral 10 g feeding tube Q6H 04/25/24 06/09/24 solution (Enulose) calcium 600 mg (as 1 cap PO DAILY 05/20/24 06/09/24 carbonate)-vitamin D3 5 mcg (200 unit) capsule (Calcium 600 + D(3)) sennosides 8.6 mg tablet 8.6 mg feeding tube BID 05/20/24 06/09/24 (Black-Draught Lax-Senna) ascorbic acid (vitamin C) 500 mg 500 mg feeding tube BID 06/09/24 06/09/24 tablet (Vitamin C) carbamide peroxide 6.5 % ear drops 5 drp otic (ear) .Q61 06/09/24 06/09/24 furosemide 20 mg tablet 20 mg feeding tube QDAY 06/09/24 06/09/24 magnesium hydroxide 400 mg/5 mL 30 ml PO QDAY PRN constipation 06/09/24 06/09/24 oral suspension (Milk of Magnesia) multivitamin (Daily Multi-Vitamin 1 tab feeding tube QAM 06/09/24 06/09/24 tablet) polyethylene glycol 3350 17 17 g feeding tube QDAY 06/09/24 06/09/24 gram/dose oral powder (Miralax) zinc sulfate 50 mg zinc (220 mg) 50 mg feeding tube QDAY 06/09/24 06/09/24 capsule Previous Rx's ?Medication ?Instructions ?Recorded ceftriaxone 1 gram solution for 1 g IV QDAY 5 days #5 ea 06/23/24 injection apixaban 2.5 mg tablet (Eliquis) 2.5 mg G-tube BID 30 days #60 tabs 07/06/24 cadexomer iodine 0.9 % topical gel 40 g top HS 30 days #40 grams 07/06/24 (Iodosorb) lansoprazole 30 mg delayed 30 mg G-tube QDAY #30 tabs 07/06/24 release,disintegrating tablet levofloxacin 250 mg tablet 500 mg (2 x 250 mg) G-tube Q48H 10 07/06/24 days #10 tabs Allergies Allergy/AdvReac Type Severity Reaction Status Date / Time No Known Allergies Allergy Verified 05/25/24 08:41 Review of Systems Review of Systems ROS Unobtainable: unobtainable due to medical condition ED Exam General Limitations: Present no limitations General appearance: Present other (Patient couldn't cooperate with exam ) Head Head exam: Present normocephalic and other (Facial edema noted on the right, asymmetrical ) Eye Eye exam: Present normal appearance and EOMI ENT ENT exam: Present normal exam, normal oropharynx and mucous membranes moist Neck Neck exam: Present full ROM and other (tracheostomy noted) Chest Chest inspection: Present normal inspection and symmetric chest wall rise Respiratory Respiratory exam: Present other (anterior rhonchi) Cardiovascular Cardiovascular exam: Present regular rate, normal rhythm and normal heart sounds Abdominal Exam Abdominal exam: Present soft and normal bowel sounds Extremities Exam Extremities exam: Present full ROM and pedal edema (2-3+ BLE ) Back Exam Back exam: Present normal inspection and full ROM Neurological Exam Neurological exam: Present other (Patient not cooperative with exam, not able to move legs or arms independently, unable to follow commands, ) Psychiatric Psychiatric exam: Present normal affect and normal mood Skin Skin exam: Present warm, dry, intact and normal color Course Quality Measures none Orders Category Date Time Status COVID-19 Screening Questionnaire NOW Care 08/03/24 18:51 Active COVID-19 Screening Questionnaire NOW Care 08/03/24 18:52 Active Squeegeer And Former NOW Care 08/03/24 13:23 Active Continuous Pulse Oximetry QSHIFT Care 08/03/24 13:18 Completed Decision to Admit X1 Care 08/03/24 18:51 Active Decision to Admit X1 Care 08/03/24 18:52 Active EKG (ED ONLY) *Do not use* NOW Care 08/03/24 13:23 Completed Insert IV NOW Care 08/03/24 13:23 Active Referral Respiratory Therapy Stat Cons 08/03/24 13:[address] head/brain wo con Stat Exams 08/03/24 13:27 Completed EKG (ED Only) Stat Exams 08/03/24 13:18 Draft XR chest 1V portable Stat Exams 08/03/24 13:23 Completed Arterial Blood Gas Stat Lab 08/03/24 14:27 Completed B-Type Natriuretic Peptide Stat Lab 08/03/24 13:40 Completed Blood Culture (Lab) Stat Lab 08/03/24 13:35 Received CBC Stat Lab 08/03/24 13:40 Completed Comprehensive Metabolic Panel Stat Lab 08/03/24 13:40 Completed Drug Screen,Urine Stat Lab 08/03/24 13:59 Completed Lactic Acid [Lactate (Lactic Acid)] Stat Lab 08/03/24 13:40 Completed Magnesium Stat Lab 08/03/24 13:40 Completed Partial Thromboplastin Time Stat Lab 08/03/24 13:40 Completed Procalcitonin Stat Lab 08/03/24 13:40 Completed Prothrombin Time with INR Stat Lab 08/03/24 13:40 Completed Troponin I Stat Lab 08/03/24 13:40 Completed Urinalysis Stat Lab 08/03/24 13:59 Completed Albuterol/Ipratr Rt Viviana [Duoneb Rt Viviana] Med 08/03/24 13:23 Discontinued 3 ml INH X1 ONE Dexamethasone Inj [Decadron Inj] Med 08/03/24 13:47 Discontinued 8 mg IVP X1 ONE Dexamethasone Inj [Decadron Inj] Med 08/03/24 13:23 Discontinued 8 mg PO X1 ONE Doxycycline Inj [Vibramycin Inj] 100 mg Med 08/03/24 18:48 Active Sodium Chloride 0.9% (Pop) [NS 0.9% mini bag] 100 ml IV X1 Furosemide Inj [Lasix Inj] Med 08/03/24 18:49 Discontinued 40 mg IVP X1 ONE Sodium Chloride 0.9% 1000 ml [Ns] 1,000 ml Med 08/03/24 13:23 Active IV 50 mls/hr cefTRIAXone [Rocephin] 2 gm Med 08/03/24 18:48 Active SODIUM CHLORIDE 0.9% (Popper) [Ns 0.9% (P)] 50 ml IV QDAY Vital Signs Vital signs: Vital Signs Temperature 98.8 F 08/03/24 11:57 Respiratory Rate 35 H 08/03/24 11:57 Blood Pressure 147/84 H 08/03/24 11:57 Pulse Oximetry (%) 93 L 08/03/24 11:57 Oxygen Delivery Method Trach Collar 08/03/24 11:57 Pulse ox is 93% on trach collar which is borderline low. Shortness of Breath / Dyspnea MDM Narrative MDM Narrative:: IAlea am scribing for and in the presence of Dr. Florence. 1800: Patient signed out to Dr. Rodriguez pending CXR and final disposition. Patient data External records reviewed:: [facility] previous records (I reviewed subacute progress note from 08/02/2024) Clinical information provided by:: other (specify) (RN) Social determinants that could affect healthcare access:: housing (subacute resident ) Patient has the following chronic illnesses:: chronically trached with PEG tube due to multiple strokes, seizure disorder, A-fib, hypertension, type 2 diabetes mellitus How is presenting disease/condition affected by chronic disease/condition?: exacerbated by Evaluation data The following diagnostics were reviewed and interpreted by me:: lab results, radiology exam(s) (CXR my interpretation: right sided pneumonia ) and EKG tracing(s) (EKG @ 13:46. Sinus rhythm, rate 96, left axis deviation, no STEMI.) Lab and/or radiology exams considered but not ordered:: None Interpretation Summary: Ordering Physician: Collin Florence MD Date of Service: 08/03/24 Procedure(s): CT head/brain wo con Accession Number(s): [id number] cc: Collin Florence MD; Prem Dowd MD; NO PRIMARY/FAMILY,PHYSICIAN~ Examination: CT brain head without contrast. 2-D sagittal coronal reconstructions Date and time of exam:August 03, 2024 1408 hours INDICATIONS: Onset facial droop today CTDI: vol (mGy):51 DLP: (mGycm):1083 Technique: Multiple CT axial sections of the brain have been obtained, 5 mm slice thickness. Contrast has not been administered. 2-D sagittal, coronal reconstructions have been obtained Low dose protocols were performed. One or more of the following dose reduction techniques were used; automated exposure control, adjustment of the mA and/or KV according to patient size, use of iterative reconstruction technique. Findings: No significant ventricular enlargement. Stable old infarct right basal ganglia, old infarct right cerebellar hemisphere compared with July 05, 2024 Intra-axial or extra-axial hemorrhage density is not seen. No mass effect or midline shift Basal cisterns are not remarkable. Fourth ventricle is midline. Cranial vault intact. Impression: Negative for acute hemorrhage, mass effect or midline shift Advise clinical correlation follow-up accordingly Dictated By: Prem Dwod MD Signed By: <Electronically signed by Prem Dowd MD in OV> 08/03/24 1426 Medications / Prescriptions Medications or Prescriptions considered but not ordered:: None Medication administrations:: Medication Administration History Sodium Chloride (Ns) 1,000 mls @ 50 mls/hr IV .Q20H ONE Stop: 08/04/24 09:22 Last Admin: 08/03/24 14:23 Dose: 50 mls/hr Documented By: TRACE Ceftriaxone Sodium 2 gm/ (Sodium Chloride) 50 mls @ 100 mls/hr IV QDAY AMARJIT Stop: 08/10/24 18:47 Doxycycline Hyclate 100 mg/ (Sodium Chloride) 100 mls @ 100 mls/hr IV X1 ONE Stop: 08/03/24 19:47 Discontinued Medications Albuterol/Ipratropium (Albuterol/Ipratropium (Duoneb) Rt Viviana 3 Ml Nebu) 3 ml INH X1 ONE Stop: 08/03/24 13:24 Last Admin: 08/03/24 13:39 Dose: 3 ml Documented By: MARK Dexamethasone Sodium Phosphate (Dexamethasone Sod Phos Inj 10 Mg/Ml Vial) 8 mg PO X1 ONE Stop: 08/03/24 13:24 Last Admin: 08/03/24 13:48 Dose: Not Given Documented By: TRACE Non-Admin Reason: Duplicate Medication on eMAR Dexamethasone Sodium Phosphate (Dexamethasone Sod Phos Inj 4 Mg/Ml Vial) 8 mg IVP X1 ONE; Protocol Stop: 08/03/24 13:48 Last Admin: 08/03/24 14:20 Dose: 8 mg Documented By: TRACE Furosemide (Furosemide Inj 10 Mg/Ml 4ml Vial) 40 mg IVP X1 ONE Stop: 08/03/24 18:50 See above Consultations Consultation(s) initiated? (list below): Yes Consultation #1 (Physician, Specialty, Details): I spoke with hospitalist Dr. Disla regarding admission. Discussed patients PMHx, HPI, ED course, exam findings, labs, and radiology results. The hospitalist agree to accept the patient for admission. Time: 18:54 Diagnosis Shortness of Breath Differential Diagnosis: acute exacerbation of chronic obstructive airways disease, congestive heart failure, community acquired pneumonia, asthma with exacerbation and pulmonary embolism Most likely diagnosis given after review of the tests above:: UTI Leukocytosis Hyperkalemia Dehydration Admission Indicated Admission indicated?: indicated Admission Request Was there a request for admission?: Yes Admission Attestation Admission request attestation: Discussed case with [] from Hospitalist service regarding admission. Discussed patients ED course, exam findings, labs, and radiology results. The Hospitalist [agrees,declines] to accept the patient for admission. Disposition Plan Disposition Plan: Admit Discharge Plan Plan Patient Disposition: Admit Acute Care w/in Hospital Prescriptions/Referrals Prescriptions/Med Rec: No Action magnesium hydroxide [Milk of Magnesia] 400 mg/5 mL suspension 30 ml PO QDAY PRN (Reason: constipation) polyethylene glycol 3350 [Miralax] 17 gram/dose powder 17 g feeding tube QDAY furosemide 20 mg tablet 20 mg feeding tube QDAY ascorbic acid (vitamin C) [Vitamin C] 500 mg tablet 500 mg feeding tube BID multivitamin [Daily Multi-Vitamin] Tablet 1 tab feeding tube QAM zinc sulfate 50 mg zinc (220 mg) capsule 50 mg feeding tube QDAY carbamide peroxide 6.5 % drops 5 drp otic (ear) .Q61 Iodosorb 0.9 % Gel 40 g top HS 30 Days Qty: 40 0RF Eliquis 2.5 mg Tablet 2.5 mg G-tube BID 30 Days Qty: 60 0RF lansoprazole 30 mg Tablet,Disintegrat, Delay Rel 30 mg G-tube QDAY Qty: 30 0RF levofloxacin 250 mg Tablet 500 mg G-tube Q48H 10 Days Qty: 10 0RF atorvastatin 80 mg tablet 80 mg feeding tube HS acetaminophen 325 mg tablet 325 mg feeding tube Q6H PRN (Reason: fever or pain) ipratropium-albuterol 0.5 mg-3 mg(2.5 mg base)/3 mL solution for nebulization 3 ml INHALATION Q6H PRN (Reason: shortness of breath) amiodarone 200 mg tablet 200 mg feeding tube DAILY amlodipine 10 mg tablet 10 mg feeding tube QDAY bisacodyl [Gentle Laxative (bisacodyl)] 5 mg tablet,delayed release (DR/EC) 10 mg feeding tube Q6H PRN (Reason: constipation) Novolin R FlexPen 100 unit/mL (3 mL) insulin pen 1 sliding scale dose SUBCUT Q6H lactulose [Enulose] 10 gram/15 mL solution 10 g feeding tube Q6H sennosides [Black-Draught Lax-Senna] 8.6 mg tablet 8.6 mg feeding tube BID Calcium 600 + D(3) 600 mg-5 mcg (200 unit) capsule 1 cap PO DAILY Rx Instructions: per Peg tube ceftriaxone 1 gram recon soln 1 g IV QDAY 5 Days Qty: 5 0RF Referrals: No Primary/Family,Physician [Primary Care Provider] - In 1 week Problem List Clinical Impression: Acute UTI, Dehydration, Leukocytosis, Acute hyperkalemia, Right middle lobe pneumonia Patient/Caregiver Discharge Instructions Print Language: Mark Stand Alone Forms: Rani Award Info., Patient Portal Info Letter
--- NOTE | 2024-08-03 13:18 | EKG_ITS ---
[facility] Test Date: 2024-08-03 Pat Name: DAJUAN PAZ Department: Room: - Gender: Female Auth Specialist: : 1940 Requested By: Collin Horn Order Number: [id number] Reading MD: Collin Horn Measurements Intervals [place] Rate: 96 P: 49 VT: 171 QRS: -33 QRSD: 92 T: 54 QT: 365 QTc: 462 Interpretive Statements SINUS RHYTHM LEFT AXIS DEVIATION [QRS AXIS < -30] Compared to ECG 06/30/2024 07:39:08 T-wave abnormality no longer present Prolonged QT interval no longer present /store/S0/[id number]/ecg/[id number].pdf
--- NOTE | 2024-08-03 13:23 | XR_ITS ---
Examination: AP chest single view TECHNIQUE: AP portable semiupright chest single view Exam date and time: August 03, 2024 1444 hours Comparison July 02, 2024 INDICATIONS: Shortness of breath weakness beginning today. FINDINGS: No significant cardiac enlargement Prominent vascular congestion Extensive pleural-parenchymal disease bilaterally with right Pleurx catheter Tracheostomy tube stable position IMPRESSION: Again noted extensive pleural-parenchymal disease in the hemithoraces Ultrasound follow-up may be helpful in assessing extent of bilateral pleural fluid
--- NOTE | 2024-08-03 13:27 | XR_ITS ---
Examination: CT brain head without contrast. 2-D sagittal coronal reconstructions Date and time of exam:August 03, 2024 1408 hours INDICATIONS: Onset facial droop today CTDI: vol (mGy):51 DLP: (mGycm):1083 Technique: Multiple CT axial sections of the brain have been obtained, 5 mm slice thickness. Contrast has not been administered. 2-D sagittal, coronal reconstructions have been obtained Low dose protocols were performed. One or more of the following dose reduction techniques were used; automated exposure control, adjustment of the mA and/or KV according to patient size, use of iterative reconstruction technique. Findings: No significant ventricular enlargement. Stable old infarct right basal ganglia, old infarct right cerebellar hemisphere compared with July 05, 2024 Intra-axial or extra-axial hemorrhage density is not seen. No mass effect or midline shift Basal cisterns are not remarkable. Fourth ventricle is midline. Cranial vault intact. Impression: Negative for acute hemorrhage, mass effect or midline shift Advise clinical correlation follow-up accordingly
[2024-08-03] MEDS: ALBUTEROL/IPRATROPIUM (Duoneb) RT SOL 3 ML NEBU INH (13:39)
[2024-08-03 13:49] LABS: Lactate (Lactic Acid) 1.3 mMol/L (0.4-2.0)
[2024-08-03 13:56] LABS: Basophils # (Auto) 0.1 Thou/mm3 (0.0-0.2); Basophils % (Auto) 0 % (0-2.5); Eosinophils # (Auto) 0.2 Thou/mm3 (0.0-0.5); Eosinophils % (Auto) 1 % (0-10); Hematocrit 26.8 % (36.0-46.0); Immature Granulocytes % (Auto) 1 % (0-0); Immature Granulocytes Auto 0.17 Thou/mm3 (0.00-0.00); Lymphocytes # (Auto) 0.7 Thou/mm3 (1.0-4.8); Lymphocytes % (Auto) 3 % (10-50); Mean Corpuscular HGB Conc 31.7 g/dl (31.0-37.0); Mean Corpuscular Hemoglobin 28.9 pg (25.0-35.0); Mean Corpuscular Volume 91 fL (80-100); Monocytes # (Auto) 1.2 Thou/mm3 (0.0-0.8); Monocytes % (Auto) 5 % (0-12); Neutrophils % (Auto) 90 % (37-80); Nucleated Red Blood Cell % 0 /100 WBC (0); Platelet Count 384 Thou/mm3 (140-440); Red Blood Count 2.94 Miln/mm3 (4.00-5.20); White Blood Count 22.3 Thou/mm3 (3.6-11.0)
[2024-08-03 14:00] LABS: Hemoglobin 8.5 g/dL (12.0-16.0)
[2024-08-03 14:10] LABS: INR 1.1 (0.9-1.3); Partial Thromboplastin Time 31.7 Seconds (22.0-36.0); Prothrombin Time 11.9 Seconds (9.0-12.2)
[2024-08-03 14:15] LABS: Alanine Aminotransferase 48 U/L (10-49); Albumin, Serum 3.1 gm/dL (3.4-4.8); Albumin/Globulin Ratio 0.8 (1.2-2.2); Alkaline Phosphatase 87 U/L (46-116); Anion Gap 6 (7-16); Aspartate Amino Transferase 36 U/L (0-34); BUN/Creatinine Ratio 51 Ratio (12-20); Bilirubin,Total 0.4 mg/dL (0.3-1.2); Blood Urea Nitrogen 41 mg/dL (9-23); Calcium 8.2 mg/dL (8.3-10.6); Calcium (Corrected) 8.9 mg/dL (8.5-10.1); Carbon Dioxide 29.2 mMol/L (20.0-31.0); Chloride 112 mMol/L (98-107); Creatinine (Component) 0.8 mg/dL (0.6-1.3); Globulin 3.8 gm/dL (2.3-3.5); Glucose 160 mg/dL (74-106); Osmolality,Calculated 305 (275-295); Potassium 5.5 mMol/L (3.4-5.1); Procalcitonin 0.32 ng/ml (0.0-0.49); Sodium 147 mMol/L (136-145); Total Protein 6.9 gm/dL (5.7-8.2); Troponin I 0.021 ng/mL (0.0-0.045); eGFR > 60 See Note
[2024-08-03] MEDS: DEXAMETHASONE SOD PHOS INJ 4 MG/ML VIAL 8 MG IVP (14:20)
[2024-08-03] MEDS: SODIUM CHLORIDE 0.9% 1000 ML 1,000 ML 50 ML IV (14:23)
[2024-08-03 14:29] LABS: Collection Type, Urine Catheter
[2024-08-03 14:37] LABS: B-Type Natriuretic Peptide 1106 pg/mL (0-100)
[2024-08-03 14:40] LABS: Amphetamine/Methamp Scrn,U Negative (Negative); Barbiturate Screen,Urine Negative (Negative); Benzodiazepines Screen,Urine Negative (Negative); Benzoylecgonine Screen, Ur Negative (Negative); Fentanyl Screen,Urine Negative (Negative); Opiate Screen,Urine Negative (Negative); THC Screen,Urine Negative (Negative)
[2024-08-03 14:40] LABS: Base Excess 5 (-3-3); HCO3 30 mEq/L (20-26); Inspired Oxygen, FIO2 30 %; O2 Saturation 98 % (91-98); PCO2 43 mmHg (32.0-48.0); PO2 87 mmHg (83-108); pH, Arterial 7.44 (7.35-7.45)
[2024-08-03 14:42] LABS: Allen Test Performed/OK; Puncture Site Right Radial
[2024-08-03 14:43] LABS: Bacteria,Urine Rare; Bilirubin,Urine Negative (Negative); Blood,Urine 1+ (Negative); Budding Yeast,Urine Present; Clarity,Urine Turbid (Clear/Hazy); Color,Urine Yellow (Lt Yel-Yel); Glucose, Urine Negative (Negative); Ketones,Urine Negative (Negative); Leukocyte Esterase,Urine Positive (Negative); Nitrite,Urine Negative (Negative); PH,Urine 6.5 (5.0-7.0); Protein,Urine 3+ (Neg - Trace); RBC,Urine 23 /hpf (0-3); Specific Gravity,Urine 1.016 (1.001-1.035); Squamous Epithelial Cell,Urine < 1 /hpf (0-5); Urobilinogen,Urine Negative mg/dL (0.0-1.0); WBC,Urine 56 /hpf (0-5)
--- NOTE | 2024-08-03 19:35 | PD.HHHP ---
Documentation for date of: 08/03/24 HPI - Hospitalist History of Present Illness History of Present Illness: SOB History of present illness: An 83-year-old female presented to the ER with the chief complaint of shortness of breath. The patient is chronically nonverbal and was brought in from a subacute facility due to new-onset shortness of breath noticed earlier today. Nursing staff also observed a new facial droop. The patient is unable to provide further history due to her nonverbal status. Per chart review, patient has a history of recurrent pleural effusions (previously managed with thoracenteses and PleurX catheter placement). A pathology report from 05/19/24 was suspicious for malignancy, and after family discussion, further cancer workup and aggressive treatment were declined. The facility sent her to the ER for further evaluation of the new symptoms. The patient has a history of multiple CVAs, seizure disorder, atrial fibrillation, hypertension, type 2 DM, tracheostomy, PEG tube, and recurrent pleural effusions. Functional status: chronically nonverbal, PEG- and trach-dependent, living in a subacute facility. Code status DNR. In the ER, vital signs recorded as temp 98.8 F, HR 93 bpm, RR 35, BP 147/84 mmHg. Labs revealed WBC 22.3, Hb 8.5, Plt 384, Na 147, K 5.5, BUN 41, Cr 0.8, glucose 160, lactic acid 1.3, BNP 1106, procalcitonin 0.32. ABG: pH 7.44, CO2 43, O2 87 on FiO2 30%. UA showed WBC 56, RBC 23. CT head showed no acute hemorrhage, mass effect, or midline shift. EKG showed sinus rhythm. CXR demonstrated extensive pleural-parenchymal disease in the hemithoraces. Admit for further evaluation and treatment. Review of Systems Review of Systems ROS Unobtainable: unobtainable due to medical condition Past Medical History Past Medical History NEUROLOGIC: Positive Neurological Disorders, Cerebrovascular Accident and Seizures; Negative Traumatic Brain Injury CARDIAC: Positive Cardiac Disorders, Atrial Fibrillation, Hypercholesterolemia, Edema and Hypertension; Negative Congestive Heart Failure RESPIRATORY: Negative Chronic Obstructive Pulmonary Disease (COPD) or Asthma GASTROINTESTINAL: Negative Gastrointestinal Disorders or Hepatitis GENITOURINARY: Negative Genitourinary Disorders or Renal Disease REPRODUCTIVE: Negative Pelvic Inflammatory Disease MUSCULOSKELETAL: Negative Musculoskeletal Disorders ENDOCRINE: Positive Endocrine Disorders and Diabetes Mellitus Type 2; Negative Diabetes Mellitus Type 1 or Hypoglycemia HEMATOLOGIC: Negative Blood Disorders or Sickle Cell Disease PSYCHO/SOCIAL: Negative Eating Disorder OTHER HISTORY: Positive Blood Transfusions; Negative Autoimmune Disease, Blood Transfusion Reaction, Anesthesia Reactions, Clostridium Difficile or Cancer Family History FAMILY HISTORY: Negative Family Psychiatric Problems, Family Respiratory Disorders, Family Cardiac Disorders, Family Gastrointestinal Problems, Family Cancer, Family Surgery or Family Anesthesia Reaction Surgical History SURGICAL: Positive Tracheostomy and Gastrostomy; Negative Cardiac Surgery, Nephrectomy, Joint Replacement, Neurologic Surgery or Mastectomy Social History SMOKING STATUS: Unknown if ever smoked SECOND HAND EXPOSURE: No SUBSTANCE USE: does not use Meds Home Medications and Allergies Home Medications ?Medication ?Instructions ?Recorded ?Confirmed ?Type acetaminophen 325 mg tablet 325 mg feeding tube Q6H PRN fever 04/25/24 06/09/24 History or pain amiodarone 200 mg tablet 200 mg feeding tube DAILY 04/25/24 06/09/24 History amlodipine 10 mg tablet 10 mg feeding tube QDAY 04/25/24 06/09/24 History Held on 07/06/24. Instructions: Resume on 07/13/24. atorvastatin 80 mg tablet 80 mg feeding tube HS 04/25/24 06/09/24 History bisacodyl 5 mg tablet,delayed 10 mg feeding tube Q6H PRN 04/25/24 06/09/24 History release (Gentle Laxative constipation (bisacodyl)) insulin regular human 100 unit/mL 1 sliding scale dose subcut Q6H 04/25/24 06/09/24 History (3 mL) subcutaneous pen (Novolin R FlexPen) ipratropium 0.5 mg-albuterol 3 mg 3 ml inhalation Q6H PRN shortness 04/25/24 06/09/24 History (2.5 mg base)/3 mL nebulization of breath soln lactulose 10 gram/15 mL oral 10 g feeding tube Q6H 04/25/24 06/09/24 History solution (Enulose) calcium 600 mg (as 1 cap PO DAILY 05/20/24 06/09/24 History carbonate)-vitamin D3 5 mcg (200 unit) capsule (Calcium 600 + D(3)) sennosides 8.6 mg tablet 8.6 mg feeding tube BID 05/20/24 06/09/24 History (Black-Draught Lax-Senna) ascorbic acid (vitamin C) 500 mg 500 mg feeding tube BID 06/09/24 06/09/24 History tablet (Vitamin C) carbamide peroxide 6.5 % ear drops 5 drp otic (ear) .Q61 06/09/24 06/09/24 History furosemide 20 mg tablet 20 mg feeding tube QDAY 06/09/24 06/09/24 History magnesium hydroxide 400 mg/5 mL 30 ml PO QDAY PRN constipation 06/09/24 06/09/24 History oral suspension (Milk of Magnesia) multivitamin (Daily Multi-Vitamin 1 tab feeding tube QAM 06/09/24 06/09/24 History tablet) polyethylene glycol 3350 17 17 g feeding tube QDAY 06/09/24 06/09/24 History gram/dose oral powder (Miralax) zinc sulfate 50 mg zinc (220 mg) 50 mg feeding tube QDAY 06/09/24 06/09/24 History capsule Allergies Allergy/AdvReac Type Severity Reaction Status Date / Time No Known Allergies Allergy Verified 05/25/24 08:41 Exam Vital Signs Temp Pulse Resp BP Pulse Ox O2 Del Method FiO2 98.7 F 83 17 135/64 H 100 Mechanical Ventilation 30 08/03/24 18:25 08/03/24 18:30 08/03/24 18:30 08/03/24 18:30 08/03/24 18:30 08/03/24 18:25 08/03/24 17:51 Narrative General: Appears comfortable on mechanical ventilation. HEENT: Moist mucous membranes. Neck: Supple, No masses, No JVD. CVS: S1S2, regular rate and rhythm, no murmurs, rubs or gallops. Lungs: Clear to auscultation with no accessory use, no wheeze, coarse rhonchi appreciated throughout the lung field. Abd: Soft, nondistended, +BS, no organomegaly. Ext: BLE edema, warm and well perfused. Skin: Large sacral decubitus ulcer, with some discharge. Neuro/Psych: Nonverbal at baseline, contractures noted. Results - Hospitalist Labs Diagrams: 08/03/24 13:40 08/03/24 13:40 Labs: Short CBC 08/03/24 Range/Units 13:40 WBC 22.3 H (3.6-11.0) Thou/mm3 Hgb 8.5 L (12.0-16.0) g/dL Hct 26.8 L (36.0-46.0) % Plt Count 384 (140-440) Thou/mm3 BMP 08/03/24 13:40 Sodium 147 H Potassium 5.5 H Chloride 112 H Carbon Dioxide 29.2 BUN 41 H Creatinine 0.8 Glucose 160 H Calcium 8.2 L Cardiac Enzymes 08/03/24 Range/Units 13:40 Troponin I 0.021 (0.0-0.045) ng/mL Liver Function 08/03/24 Range/Units 13:40 Total Bilirubin 0.4 (0.3-1.2) mg/dL AST 36 H (0-34) U/L ALT 48 (10-49) U/L Alkaline Phosphatase 87 (46-116) U/L Albumin 3.1 L (3.4-4.8) gm/dL Urine 08/03/24 Range/Units 13:59 Urine Color Yellow (Lt Yel-Yel) Urine Clarity Turbid A (Clear/Hazy) Urine pH 6.5 (5.0-7.0) Ur Specific [place] 1.016 (1.001-1.035) Urine Protein 3+ A (Neg - Trace) Urine Glucose (UA) Negative (Negative) ABG Interpretation ABG results: 08/03/24 14:27 ABG pH 7.44 ABG pCO2 43 ABG pO2 87 ABG HCO3 30 H ABG O2 Saturation 98 ABG Base Excess 5 H Assessment & Plan -Hospitalist Additional Assessment #Acute Hypoxic Respiratory Failure #Recurrent Pleural Effusions (suspicious for malignancy) Assessment: Dyspnea, RR 35, bilateral pleural-parenchymal disease on CXR, history of recurrent pleural effusions with prior PleurX catheter, elevated BNP (1106), ABG pH 7.44/CO2 43/O2 87, cytology in 05/19/24 suspicious for malignancy, palliative goals of care Plan: - Maintain oxygen supplementation to maintain SpO2 >92% - IR thoracentesis - Monitor respiratory status and oxygen requirements closely #Leukocytosis Assessment: WBC 22.3, UA with pyuria/hematuria, afebrile, procalcitonin 0.32 Plan: - UA concerning for UTI, CXR concerning for pneumonia - Start empiric antibiotics - Pending culture #Hypernatremia Assessment: Na 147 mmol/L, mild; possibly related to insensible losses or inadequate free water intake in PEG-dependent patient Plan: - Initiate enteral free water flushes via PEG for hydration - Hold diuretics now to prevent further volume depletion - Monitor serum sodium daily - Assess fluid balance and adjust maintenance fluids or enteral regimen as needed #Atrial Fibrillation Assessment: Known history, sinus rhythm on EKG, [id number] Score = 6 (CHF, HTN, Age >75, Female, Prior CVA) Plan: - Hold anticoagulation now for possible IR thoracentesis - Continue amiodarone #Hypertension Assessment: BP 147/84 on admission, history of chronic hypertension Plan: - Resume home antihypertensives #Type 2 Diabetes Mellitus Assessment: Glucose 160 on admission, PEG-dependent; no DKA/HHS Plan: - Maintain preprandial glucose <140 mg/dL, random <180 mg/dL - Nutrition support to coordinate with PEG feedings - Insulin sliding scale #Anemia Assessment: Hb 8.5 g/dL, chronic illness, unclear acuity Plan: - Trend Hgb daily #Chronic Tracheostomy and PEG Dependence Assessment: Baseline status, currently stable Plan: - Suction and trach care per protocol Quality Measures Quality Measures none Advance care planning discussed with:: other (no family at bedside)
[2024-08-03] MEDS: FUROSEMIDE INJ 10 MG/ML 4ML VIAL 40 MG IVP (19:43)
[2024-08-03] MEDS: cefTRIAXone 2 GM in SODIUM CHLORIDE 0.9% (Popper) 50 ML IV (19:45)
[2024-08-03] MEDS: DOXYCYCLINE INJ 100 MG in SODIUM CHLORIDE 0.9% (POP) 100 ML IV (19:45)
[2024-08-03] MEDS: ATORVASTATIN CALCIUM 20 MG TABLET 80 MG GT (21:08)
[2024-08-03] MEDS: PIPER/TAZO 3.375 GM PREMIX 3.375 GM/50 ML BAG IV (21:08)
[2024-08-03] MEDS: HEPARIN SOD INJ 5000 UNIT/ML VIAL SC (21:08)
[2024-08-04] VITALS (17 sets, daily range): BP systolic 118–150; BP diastolic 52–85; PULSE 72–82; RESP 12–25; TEMP 36.9–37.2; O2SAT 96–100
[2024-08-04 05:22] LABS: Basophils % (Auto) 0 % (0-2.5); Eosinophils % (Auto) 0 % (0-10); Hematocrit 23.1 % (36.0-46.0); Immature Granulocytes % (Auto) 1 % (0-0); Immature Granulocytes Auto 0.15 Thou/mm3 (0.00-0.00); Lymphocytes # (Auto) 0.5 Thou/mm3 (1.0-4.8); Lymphocytes % (Auto) 3 % (10-50); Mean Corpuscular HGB Conc 31.2 g/dl (31.0-37.0); Mean Corpuscular Hemoglobin 28.8 pg (25.0-35.0); Mean Corpuscular Volume 92 fL (80-100); Monocytes # (Auto) 0.1 Thou/mm3 (0.0-0.8); Monocytes % (Auto) 1 % (0-12); Neutrophils # (Auto) 14.6 Thou/mm3 (1.8-7.7); Neutrophils % (Auto) 95 % (37-80); Nucleated Red Blood Cell % 0 /100 WBC (0); Platelet Count 294 Thou/mm3 (140-440); RDW Standard Deviation 58.3 fL (36.4-46.3); White Blood Count 15.3 Thou/mm3 (3.6-11.0)
[2024-08-04 05:26] LABS: Hemoglobin 7.2 g/dL (12.0-16.0)
[2024-08-04 05:32] LABS: Anion Gap 9 (7-16); BUN/Creatinine Ratio 51 Ratio (12-20); Blood Urea Nitrogen 41 mg/dL (9-23); Calcium 7.8 mg/dL (8.3-10.6); Carbon Dioxide 26.9 mMol/L (20.0-31.0); Chloride 112 mMol/L (98-107); Creatinine (Component) 0.8 mg/dL (0.6-1.3); Glucose 157 mg/dL (74-106); Osmolality,Calculated 307 (275-295); Potassium 4.6 mMol/L (3.4-5.1); Sodium 148 mMol/L (136-145); eGFR > 60 See Note
[2024-08-04] MEDS: HEPARIN SOD INJ 5000 UNIT/ML VIAL SC ×3 (06:08→21:28)
[2024-08-04] MEDS: PIPER/TAZO 3.375 GM PREMIX 3.375 GM/50 ML BAG IV ×3 (06:10→21:28)
--- NOTE | 2024-08-04 08:00 | PC.NURSE ---
PT TURNED AND ADJUSTED IN BED.
[2024-08-04] MEDS: amLODIPine BESYLATE 5 MG TABLET 10 MG GT (09:39)
[2024-08-04] MEDS: AMIODARONE HCL 200 MG TABLET GT (09:40)
[2024-08-04] MEDS: ASCORBIC ACID 250 MG TABLET 500 MG GT ×2 (09:40→21:28)
--- NOTE | 2024-08-04 10:26 | PC.DIETICIAN ---
Nutrition prescription: 1) Glucerna 1.2 at 30 ml/hr via PEG tube by pump. Advance 10 ml every 12 hrs to goal rate of 50 ml/hr x 24 hrs. If no IV fluids, water flushes of 25 ml/hr (or per MD). 2) Recommend Js 1 pkt BID mixed with 6-8oz water via g-tube (unflavored). 3) Recommend add Vitamin C 500mg BID daily, zinc 220mg [id number], Multivitamin-Mineral daily. Thank you! :)
--- NOTE | 2024-08-04 10:45 | ESPR_ITS ---
Documentation for date of: 08/04/24 Subjective Subjective Interval history: Overnight admission, no acute events noted. Seen and examined at bedside in ED and patient is nonverbal so unable to obtain objective. Does not appear to be in respiratory distress, mechanically ventilated on FiO2 30%, VT 400, RR 18, PEEP 5.0, which is not different from her baseline and subacute. Otherwise vital signs stable, no fevers noted. WBC improved from 22-15, hemoglobin dropped from 8.5-7.2 and will monitor closely for signs of bleeding. Sodium 148, consulted RD for tube feedings and will adjust water flushes accordingly. K improved from 5.[address] head negative and no facial droop noted on exam. Exam Vital Signs Temp Pulse Resp BP Pulse Ox O2 Del Method FiO2 98.5 F 77 18 141/71 H 96 Mechanical Ventilation 30 08/04/24 06:38 08/04/24 10:06 08/04/24 09:03 08/04/24 10:06 08/04/24 10:06 08/04/24 09:03 08/04/24 10:06 Narrative Exam General: awake, does not appear alert, no acute distress HEENT: NC/AT, mucous membranes moist, bilateral sclera anicteric Cardiovascular: regular rate and rhythm, S1/S2 present, no murmurs appreciated Pulmonary: coarse lung sounds in upper airways, no crackles or wheezing appreciated Abdominal: soft, non-tender, non-distended, no rebound/guarding, normal bowel sounds present Musculoskeletal: 1+ pitting lower extremity edema Skin: warm and dry, intact, no rashes Objective Labs 08/04/24 04:44 08/04/24 04:44 Labs: Laboratory Results - last 24 hr 08/03/24 08/03/24 08/03/24 13:40 13:59 14:27 WBC 22.3 H RBC 2.94 L Hgb 8.5 L Hct 26.8 L MCV 91 MCH 28.9 MCHC 31.7 RDW Std Deviation 58.0 H Plt Count 384 Neut % (Auto) 90 H Lymph % (Auto) 3 L Divide % (Auto) 5 Eos % (Auto) 1 Baso % (Auto) 0 Neut # (Auto) 20.0 H Lymph # (Auto) 0.7 L Divide # (Auto) 1.2 H Eos # (Auto) 0.2 Baso # (Auto) 0.1 Immature Gran # (Auto) 0.17 H Absolute Nucleated RBC 0.00 Immature Gran % 1 H Nucleated RBC % 0 PT 11.9 INR 1.1 APTT 31.7 Puncture Site Right Radial ABG pH 7.44 ABG pCO2 43 ABG pO2 87 ABG HCO3 30 H ABG O2 Saturation 98 ABG Base Excess 5 H FiO2 30 Sodium 147 H Potassium 5.5 H Chloride 112 H Carbon Dioxide 29.2 Anion Gap 6 L BUN 41 H Creatinine 0.8 Estim Creat Clear Calc Not Performed. eGFR > 60 BUN/Creatinine Ratio 51 H Glucose 160 H Calculated Osmolality 305 H Lactic Acid 1.3 Calcium 8.2 L Corrected Calcium 8.9 Magnesium 2.0 Total Bilirubin 0.4 AST 36 H ALT 48 Alkaline Phosphatase 87 Troponin I 0.021 B-Natriuretic Peptide 1106 H* Total Protein 6.9 Albumin 3.1 L Globulin 3.8 H Albumin/Globulin Ratio 0.8 L Procalcitonin 0.32 Ur Collection Type Catheter Urine Color Yellow Urine Clarity Turbid A Urine pH 6.5 Ur Specific [place] 1.016 Urine Protein 3+ A Urine Glucose (UA) Negative Urine Ketones Negative Urine Blood 1+ A Urine Nitrite Negative Urine Bilirubin Negative Urine Urobilinogen (Auto) Negative Ur Leukocyte Esterase Positive Urine RBC 23 H Urine WBC 56 H Ur Squamous Epith Cells < 1 Urine Bacteria Rare Urine Yeast (Budding) Present A Urine Opiates Screen Negative Urine Fentanyl Screen Negative Ur Barbiturates Screen Negative U Amphetamin/Meth Scrn Negative U Benzodiazepines Scrn Negative U Cocaine Metab Screen Negative U Marijuana (THC) Screen Negative 08/04/24 04:44 WBC 15.3 H D RBC 2.50 L Hgb 7.2 L Hct 23.1 L MCV 92 MCH 28.8 MCHC 31.2 RDW Std Deviation 58.3 H Plt Count 294 D Neut % (Auto) 95 H Lymph % (Auto) 3 L Divide % (Auto) 1 Eos % (Auto) 0 Baso % (Auto) 0 Neut # (Auto) 14.6 H Lymph # (Auto) 0.5 L Divide # (Auto) 0.1 Eos # (Auto) 0.0 Baso # (Auto) 0.0 Immature Gran # (Auto) 0.15 H Absolute Nucleated RBC 0.00 Immature Gran % 1 H Nucleated RBC % 0 PT INR APTT Puncture Site ABG pH ABG pCO2 ABG pO2 ABG HCO3 ABG O2 Saturation ABG Base Excess FiO2 Sodium 148 H Potassium 4.6 D Chloride 112 H Carbon Dioxide 26.9 Anion Gap 9 BUN 41 H Creatinine 0.8 Estim Creat Clear Calc Not Performed. eGFR > 60 BUN/Creatinine Ratio 51 H Glucose 157 H Calculated Osmolality 307 H Lactic Acid Calcium 7.8 L Corrected Calcium Magnesium Total Bilirubin AST ALT Alkaline Phosphatase Troponin I B-Natriuretic Peptide Total Protein Albumin Globulin Albumin/Globulin Ratio Procalcitonin Ur Collection Type Urine Color Urine Clarity Urine pH Ur Specific [place] Urine Protein Urine Glucose (UA) Urine Ketones Urine Blood Urine Nitrite Urine Bilirubin Urine Urobilinogen (Auto) Ur Leukocyte Esterase Urine RBC Urine WBC Ur Squamous Epith Cells Urine Bacteria Urine Yeast (Budding) Urine Opiates Screen Urine Fentanyl Screen Ur Barbiturates Screen U Amphetamin/Meth Scrn U Benzodiazepines Scrn U Cocaine Metab Screen U Marijuana (THC) Screen ABG Interpretation ABG results: 08/03/24 14:27 ABG pH 7.44 ABG pCO2 43 ABG pO2 87 ABG HCO3 30 H ABG O2 Saturation 98 ABG Base Excess 5 H Quality Measures Quality Measures none Advance care planning discussed with:: patient Assessment & Plan Assessment Current Active Medications: Generic Name Dose Route Start Last Admin Trade Name Freq PRN Reason Stop Dose Admin Acetaminophen 650 mg 08/03/24 19:25 Acetaminophen 325 Mg Tablet PO 09/02/24 19:24 Q6H PRN Fever >101.5 Amiodarone HCl 200 mg 08/04/24 09:00 08/04/24 09:40 Amiodarone Hcl 200 Mg Tablet GT 09/03/24 08:59 200 mg DAILY AMARJIT Administration Amlodipine Besylate 10 mg 08/04/24 09:00 08/04/24 09:39 Amlodipine Besylate 5 Mg Tablet GT 09/03/24 08:59 10 mg QDAY AMARJIT Administration Ascorbic Acid 500 mg 08/03/24 21:00 08/04/24 09:40 Ascorbic Acid 250 Mg Tablet GT 09/02/24 20:59 500 mg BID AMARJIT Administration Atorvastatin Calcium 80 mg 08/03/24 21:00 08/03/24 21:08 Atorvastatin Calcium 20 Mg Tablet GT 09/02/24 20:59 80 mg HS AMARJIT Administration Dextrose 25 ml 08/03/24 20:28 Dextrose 50%-Water Inj 50 Ml Syringe IV 09/02/24 20:27 Q15MIN PRN BG 50-70 responsive npo pt Dextrose 50 ml 08/03/24 20:28 Dextrose 50%-Water Inj 50 Ml Syringe IV 09/02/24 20:27 Q15MIN PRN BG <50 OR BG <70 & pt unresponsive Glucagon 1 mg 08/03/24 20:28 Glucagon Inj 1 Mg Vial IM Q15MIN PRN BG <70, and no IV access Heparin Sodium (Porcine) 5,000 unit 08/03/24 22:00 08/04/24 06:08 Heparin Sod Inj 5000 Unit/Ml Vial SC 08/17/24 21:59 5,000 unit Q8HR AMARJIT Administration Piperacillin/Tazobactam/Dextrose 3.375 gm in 50 mls @ 12.5 mls/hr 08/04/24 06:00 08/04/24 10:13 Zosyn IV 08/11/24 05:59 Infused Q8HR [facility] [place] Infusion Protocol Insulin Human Lispro 0 unit 08/04/24 07:30 08/04/24 09:25 Insulin Lispro (Admelog) 1 Unit/0.01 Ml Unit SC 09/03/24 07:29 Not Given AC [facility] Protocol Plan Monisha Guaman is an 83-year-old female with past medical history of multiple strokes leading to chronic trach and PEG and resides at subacute center, seizure disorder, atrial fibrillation on amiodarone and eliquis, HFpEF (EF 55-60% on 04/2024), malignant pleural effusions on Pleurx catheter, DVT, hypertension, and type 2 diabetes mellitus who comes from subacute for facial droop and SOB. #Acute hypoxic respiratory failure #Recurrent pleural effusions (suspicious for malignancy) Presented with RR 35, saturating 93% on 30% FiO2. CXR showed bilateral pleural- parenchymal disease with history of recurrent pleural effusions with prior PleurX catheter. Elevated BNP (1106), ABG pH 7.44/CO2 43/O2 87, cytology in 05/19/24 suspicious for malignancy, palliative goals of care. - Maintain oxygen supplementation to maintain SpO2 >92% - IR thoracentesis ordered - Monitor respiratory status and oxygen requirements closely #Leukocytosis WBC 22.3, UA with pyuria/hematuria, afebrile, procalcitonin 0.32. History of ESBL Klebsiella 05/2024. - UA concerning for UTI, CXR concerning for pneumonia - Zosyn 3.375 g IV q8h (08/04-) - Pending cultures #Hypernatremia Na 148 mmol/L, mild; possibly related to insensible losses or inadequate free water intake in PEG-dependent patient With goal Na of 140, free water deficit of 1.2 L - Water flushes 50 mL/h via PEG tube - Hold diuretics now to prevent further volume depletion - Monitor serum sodium daily - Assess fluid balance and adjust maintenance fluids or enteral regimen as needed #Atrial fibrillation Known history, sinus rhythm on EKG, [id number] Score = 6 (CHF, HTN, Age >75, Female, Prior CVA) - Hold anticoagulation now for possible IR thoracentesis (eliquis 2.5 mg GT BID) - Continue amiodarone #Hypertension BP 147/84 on admission, history of chronic hypertension - Amlodipine 10 mg GT daily #Type 2 Diabetes Mellitus Glucose 160 on admission, PEG-dependent; no DKA/HHS - Maintain preprandial glucose <140 mg/dL, random <180 mg/dL - Nutrition support to coordinate with PEG feedings - Insulin sliding scale #Anemia Hb 8.5 g/dL, chronic illness, unclear acuity - Trend Hgb daily #Chronic Tracheostomy and PEG Dependence Baseline status, currently stable - Suction and trach care per protocol Hospital management: Disposition: Pending clinical course Fluids: none, water flushes Diet: Glucerna 1.2 at 30 mL/h via PEG tube by pump, advance 10 mL every 12 hours to goal rate of 50 mL/h for 24 hours. Water flushes 50 mL/h. Lines: PIV DVT prophylaxis: heparin SC q8h Hector: placed CODE STATUS: DNR ----- Plan discussed with attending physician Dr. Sera Trejo MD PGY-1 Internal Medicine Attending Provider Attestation/Addendum I have discussed and was present for the essential components of the history, physical examination, diagnosis, and treatment plan with the resident. I agree with the patient's care as documented by the resident and amended herein by me. Frandy Zamora DO. Although this document has been carefully reviewed, there may still be some phonetic and other typographical errors. These errors are purely grammatical due to imperfections in the software program and should not be construed in any way to compromise the substance of the patient's medical care during this visit.
--- NOTE | 2024-08-04 18:30 | PC.NURSE ---
SUBACUTE CALLED, TUBE FEEDING AND PUMP REQUESTED. SUBACUTE TO CALL BACK IF AVAILABLE.
[2024-08-04] MEDS: ATORVASTATIN CALCIUM 20 MG TABLET 80 MG GT (21:28)
[2024-08-05] VITALS (12 sets, daily range): BP systolic 116–141; BP diastolic 50–70; PULSE 65–765; RESP 16–24; TEMP 35.9–36.3; O2SAT 100
[2024-08-05] MEDS: HEPARIN SOD INJ 5000 UNIT/ML VIAL SC ×3 (05:27→21:01)
[2024-08-05] MEDS: INSULIN LISPRO (AdmeLOG) 1 UNIT/0.01 ML UNIT SC ×3 (05:27→23:20)
[2024-08-05] MEDS: PIPER/TAZO 3.375 GM PREMIX 3.375 GM/50 ML BAG IV ×3 (05:27→21:01)
[2024-08-05 06:09] LABS: Basophils % (Auto) 0 % (0-2.5); Eosinophils % (Auto) 0 % (0-10); Immature Granulocytes % (Auto) 1 % (0-0); Immature Granulocytes Auto 0.15 Thou/mm3 (0.00-0.00); Lymphocytes # (Auto) 0.8 Thou/mm3 (1.0-4.8); Lymphocytes % (Auto) 5 % (10-50); Mean Corpuscular HGB Conc 31.1 g/dl (31.0-37.0); Mean Corpuscular Volume 93 fL (80-100); Monocytes # (Auto) 0.8 Thou/mm3 (0.0-0.8); Monocytes % (Auto) 4 % (0-12); Neutrophils # (Auto) 15.7 Thou/mm3 (1.8-7.7); Neutrophils % (Auto) 90 % (37-80); Nucleated Red Blood Cell % 0 /100 WBC (0); Platelet Count 306 Thou/mm3 (140-440); RDW Standard Deviation 57.6 fL (36.4-46.3); White Blood Count 17.4 Thou/mm3 (3.6-11.0)
[2024-08-05 06:13] LABS: Hemoglobin 8.4 g/dL (12.0-16.0)
[2024-08-05 06:40] LABS: Anion Gap 11 (7-16); BUN/Creatinine Ratio 59 Ratio (12-20); Blood Urea Nitrogen 47 mg/dL (9-23); Calcium 8.1 mg/dL (8.3-10.6); Carbon Dioxide 26.1 mMol/L (20.0-31.0); Chloride 111 mMol/L (98-107); Creatinine (Component) 0.8 mg/dL (0.6-1.3); Estimated Creatinine Clearance 40.2 mL/min (>60); Glucose 167 mg/dL (74-106); Osmolality,Calculated 310 (275-295); Phosphorous 3.4 mg/dL (2.4-5.1); Potassium 4.5 mMol/L (3.4-5.1); Sodium 148 mMol/L (136-145); eGFR > 60 See Note
[2024-08-05] MEDS: amLODIPine BESYLATE 5 MG TABLET 10 MG GT (09:30)
[2024-08-05] MEDS: AMIODARONE HCL 200 MG TABLET GT (09:30)
[2024-08-05] MEDS: ASCORBIC ACID 250 MG TABLET 500 MG GT ×2 (09:30→21:01)
[2024-08-05] MEDS: MULTIVITAMIN 15 ML UDC GT (09:31)
[2024-08-05] MEDS: ZINC SULFATE 220 MG CAPSULE GT (09:31)
--- NOTE | 2024-08-05 11:52 | ESPR_ITS ---
Documentation for date of: 08/05/24 Subjective Subjective Interval history: No acute overnight events noted. Seen and examined at bedside this morning and noted to have purulent discharge around Pleurx catheter site. Maria Isabel consulted metal die finisher who recommended to take sample from Pleurx catheter and if signs of infection/empyeme, will have to plan to exchange catheter in the future. Otherwise, if no signs of empyema and just local infection, then can treat without exchanging catheter. Able to find Pleurx kit and drained 40-50 cc purulent material, of which sample to be collected and sent to lab for culture and fluid analysis. Exam Vital Signs Temp Pulse Resp BP Pulse Ox O2 Del Method FiO2 96.7 F L 67 17 133/67 H 100 Mechanical Ventilation 30 08/05/24 08:00 08/05/24 09:30 08/05/24 08:00 08/05/24 09:30 08/05/24 08:00 08/05/24 08:00 08/05/24 08:00 Narrative Exam General: awake, does not appear alert, no acute distress HEENT: NC/AT, mucous membranes moist, bilateral sclera anicteric Cardiovascular: regular rate and rhythm, S1/S2 present, no murmurs appreciated Pulmonary: pleurx catheter in place with site erythematous and recently cleaned; coarse lung sounds in upper airways, no crackles or wheezing appreciated Abdominal: soft, non-tender, non-distended, no rebound/guarding, normal bowel sounds present Musculoskeletal: 1+ pitting lower extremity edema Skin: warm and dry, intact, no rashes Objective Labs 08/05/24 04:41 08/05/24 04:41 Labs: Laboratory Results - last 24 hr 08/05/24 04:41 WBC 17.4 H RBC 2.90 L Hgb 8.4 L Hct 27.0 L MCV 93 MCH 29.0 MCHC 31.1 RDW Std Deviation 57.6 H Plt Count 306 Neut % (Auto) 90 H Lymph % (Auto) 5 L [place] % (Auto) 4 Eos % (Auto) 0 Baso % (Auto) 0 Neut # (Auto) 15.7 H Lymph # (Auto) 0.8 L [place] # (Auto) 0.8 Eos # (Auto) 0.0 Baso # (Auto) 0.0 Immature Gran # (Auto) 0.15 H Absolute Nucleated RBC 0.00 Immature Gran % 1 H Nucleated RBC % 0 Sodium 148 H Potassium 4.5 Chloride 111 H Carbon Dioxide 26.1 Anion Gap 11 BUN 47 H Creatinine 0.8 Estim Creat Clear Calc 40.2 L eGFR > 60 BUN/Creatinine Ratio 59 H Glucose 167 H Calculated Osmolality 310 H Calcium 8.1 L Phosphorus 3.4 Magnesium 2.0 ABG Interpretation ABG results: 08/03/24 14:27 ABG pH 7.44 ABG pCO2 43 ABG pO2 87 ABG HCO3 30 H ABG O2 Saturation 98 ABG Base Excess 5 H Quality Measures Quality Measures none Advance care planning discussed with:: patient Assessment & Plan Assessment Current Active Medications: Generic Name Dose Route Start Last Admin Trade Name Freq PRN Reason Stop Dose Admin Acetaminophen 650 mg 08/03/24 19:25 Acetaminophen 325 Mg Tablet PO 09/02/24 19:24 Q6H PRN Fever >101.5 Amiodarone HCl 200 mg 08/04/24 09:00 08/05/24 09:30 Amiodarone Hcl 200 Mg Tablet GT 09/03/24 08:59 200 mg DAILY AMARJIT Administration Amlodipine Besylate 10 mg 08/04/24 09:00 08/05/24 09:30 Amlodipine Besylate 5 Mg Tablet GT 09/03/24 08:59 10 mg QDAY AMARJIT Administration Ascorbic Acid 500 mg 08/03/24 21:00 08/05/24 09:30 Ascorbic Acid 250 Mg Tablet GT 09/02/24 20:59 500 mg BID AMARJIT Administration Atorvastatin Calcium 80 mg 08/03/24 21:00 08/04/24 21:28 Atorvastatin Calcium 20 Mg Tablet GT 09/02/24 20:59 80 mg HS AMARJIT Administration Dextrose 25 ml 08/03/24 20:28 Dextrose 50%-Water Inj 50 Ml Syringe IV 09/02/24 20:27 Q15MIN PRN BG 50-70 responsive npo pt Dextrose 50 ml 08/03/24 20:28 Dextrose 50%-Water Inj 50 Ml Syringe IV 09/02/24 20:27 Q15MIN PRN BG <50 OR BG <70 & pt unresponsive Glucagon 1 mg 08/03/24 20:28 Glucagon Inj 1 Mg Vial IM Q15MIN PRN BG <70, and no IV access Heparin Sodium (Porcine) 5,000 unit 08/03/24 22:00 08/05/24 05:27 Heparin Sod Inj 5000 Unit/Ml Vial SC 08/17/24 21:59 5,000 unit Q8HR AMARJIT Administration Piperacillin/Tazobactam/Dextrose 3.375 gm in 50 mls @ 12.5 mls/hr 08/04/24 06:00 08/05/24 05:27 Zosyn IV 08/11/24 05:59 12.5 mls/hr Q8HR AMARJIT Administration Protocol Insulin Human Lispro 0 unit 08/05/24 00:00 08/05/24 11:51 Insulin Lispro (Admelog) 1 Unit/0.01 Ml Unit SC 09/04/24 00:00 Not Given Q6HR AMARJIT Protocol Multivitamins/Minerals 15 ml 08/05/24 09:00 08/05/24 09:31 Multivitamin 15 Ml Udc GT 09/04/24 08:59 15 ml QDAY AMARJIT Administration Zinc Sulfate 220 mg 08/05/24 09:00 08/05/24 09:31 Zinc Sulfate 220 Mg Capsule GT 09/04/24 08:59 220 mg QDAY AMARJIT Administration Plan Monisha Guaman is an 83-year-old female with past medical history of multiple strokes 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 for facial droop and SOB. #Acute hypoxic respiratory failure #Recurrent pleural effusions (suspicious for malignancy) Presented with RR 35, saturating 93% on 30% FiO2. CXR showed bilateral pleural- parenchymal disease with history of recurrent pleural effusions with prior PleurX catheter. Elevated BNP (1106), ABG pH 7.44/CO2 43/O2 87, cytology in 05/19/24 suspicious for malignancy. - Maintain oxygen supplementation to maintain SpO2 >92% - Monitor respiratory status and oxygen requirements closely #Leukocytosis secondary to UTI vs pleurx catheter site infection vs empyema WBC 22.3, UA with pyuria/hematuria, afebrile, procalcitonin 0.32. History of ESBL Klebsiella 05/2024. This admission, Pleurx catheter noted to have foul-smelling discharge around site and erythematous at base. Sample collected on 08/05 and sent to lab for culture and fluid analysis. - Follow-up pleural fluid culture and analysis (LDH, amylase, protein, glucose, cell count diff) - Per lab, unable to run pleural fluid as it was too viscous and will only be able to do Gram stain and cultures - Zosyn 3.375 g IV q8h (08/04-) - Blood culture 08/03: prelim GPC 1/2 bottles from anaerobic bottle - Urine culture 08/04: pending - Pleurx site culture 08/05: pending - Pleural fluid culture 08/05: ordered #Hypernatremia Na 148 mmol/L, mild; possibly related to insensible losses or inadequate free water intake in PEG-dependent patient With goal Na of 140, free water deficit of 1.2 L - Water flushes increased from 50 to 60 mL/h via PEG tube - Hold diuretics now to prevent further volume depletion - Monitor serum sodium daily - Assess fluid balance and adjust maintenance fluids or enteral regimen as needed #Atrial fibrillation Known history, sinus rhythm on EKG, [id number] Score = 6 (CHF, HTN, Age >75, Female, Prior CVA) - Hold anticoagulation now for possible Pleurx catheter exchange - Continue amiodarone #Hypertension BP 147/84 on admission, history of chronic hypertension - Amlodipine 10 mg GT daily #Type 2 Diabetes Mellitus Glucose 160 on admission, PEG-dependent; no DKA/HHS - Maintain preprandial glucose <140 mg/dL, random <180 mg/dL - Nutrition support to coordinate with PEG feedings - Insulin sliding scale #Anemia Hb 8.5 g/dL, chronic illness, unclear acuity - Trend Hgb daily #Chronic tracheostomy and PEG Dependence Baseline status, currently stable - Suction and trach care per protocol Hospital management: Disposition: Pending cultures, on IV antibiotics Fluids: none, water flushes Diet: Glucerna 1.2 at 30 mL/h via PEG tube by pump, advance 10 mL every 12 hours to goal rate of 50 mL/h for 24 hours. Lines: PIV DVT prophylaxis: heparin SC q8h Hector: placed CODE STATUS: DNR ----- Plan discussed with attending physician Dr. Sera Trejo MD PGY-1 Internal Medicine Attending Provider Attestation/Addendum I have discussed and was present for the essential components of the history, physical examination, diagnosis, and treatment plan with the resident. I agree with the patient's care as documented by the resident and amended herein by me. Frandy Zamora DO. Patient seen and evaluated this AM. No acute events overnight, vital signs stable, patient afebrile. Significant labs including uptrend in WBC to 17, hemoglobin stable 8.4, sodium 148, potassium 4.5, chloride 111. Nurse reported a foul smell around the patient's Pleurx catheter site of insertion however the patient did appear clean and dry without any significant erythema. Will attempt to culture the fluid today. Will also continue broad-spectrum antibiotics, Zosyn for UTI and possible pneumonia. Blood cultures NGTD, urine cultures are still pending. Free water flushes also increased for improved hydration, will continue to monitor closely. Although this document has been carefully reviewed, there may still be some phonetic and other typographical errors. These errors are purely grammatical due to imperfections in the software program and should not be construed in any way to compromise the substance of the patient's medical care during this visit.
--- NOTE | 2024-08-05 15:27 | PC.SS ---
Rounding: UTI/PNA workup, on IV ABX and pending cultures
[2024-08-05] MEDS: ATORVASTATIN CALCIUM 20 MG TABLET 80 MG GT (21:01)
[2024-08-06] VITALS (11 sets, daily range): BP systolic 123–142; BP diastolic 57–74; PULSE 64–71; RESP 16–27; TEMP 36.1–36.5; O2SAT 100
[2024-08-06] MEDS: PIPER/TAZO 3.375 GM PREMIX 3.375 GM/50 ML BAG IV ×3 (05:30→21:17)
[2024-08-06] MEDS: HEPARIN SOD INJ 5000 UNIT/ML VIAL SC ×2 (05:30→14:00)
[2024-08-06] MEDS: INSULIN LISPRO (AdmeLOG) 1 UNIT/0.01 ML UNIT SC ×4 (05:30→23:40)
[2024-08-06 06:40] LABS: Basophils % (Auto) 0 % (0-2.5); Eosinophils # (Auto) 0.1 Thou/mm3 (0.0-0.5); Eosinophils % (Auto) 1 % (0-10); Hematocrit 25.8 % (36.0-46.0); Immature Granulocytes % (Auto) 1 % (0-0); Immature Granulocytes Auto 0.08 Thou/mm3 (0.00-0.00); Lymphocytes # (Auto) 0.9 Thou/mm3 (1.0-4.8); Lymphocytes % (Auto) 7 % (10-50); Mean Corpuscular HGB Conc 32.9 g/dl (31.0-37.0); Mean Corpuscular Volume 88 fL (80-100); Monocytes # (Auto) 0.7 Thou/mm3 (0.0-0.8); Monocytes % (Auto) 5 % (0-12); Neutrophils # (Auto) 11.6 Thou/mm3 (1.8-7.7); Neutrophils % (Auto) 86 % (37-80); Nucleated Red Blood Cell % 0 /100 WBC (0); Platelet Count 266 Thou/mm3 (140-440); RDW Standard Deviation 54.8 fL (36.4-46.3); Red Blood Count 2.93 Miln/mm3 (4.00-5.20); White Blood Count 13.4 Thou/mm3 (3.6-11.0)
[2024-08-06 06:43] LABS: Hemoglobin 8.5 g/dL (12.0-16.0)
[2024-08-06 06:53] LABS: Anion Gap 9 (7-16); BUN/Creatinine Ratio 51 Ratio (12-20); Blood Urea Nitrogen 41 mg/dL (9-23); Calcium 7.8 mg/dL (8.3-10.6); Carbon Dioxide 27.8 mMol/L (20.0-31.0); Chloride 111 mMol/L (98-107); Creatinine (Component) 0.8 mg/dL (0.6-1.3); Estimated Creatinine Clearance 40.2 mL/min (>60); Glucose 184 mg/dL (74-106); Magnesium 1.9 mg/dL (1.6-2.6); Osmolality,Calculated 309 (275-295); Phosphorous 2.9 mg/dL (2.4-5.1); Potassium 4.3 mMol/L (3.4-5.1); Sodium 148 mMol/L (136-145); eGFR > 60 See Note
[2024-08-06] MEDS: AMIODARONE HCL 200 MG TABLET GT (08:30)
[2024-08-06] MEDS: amLODIPine BESYLATE 5 MG TABLET 10 MG GT (08:30)
[2024-08-06] MEDS: ASCORBIC ACID 250 MG TABLET 500 MG GT ×2 (08:30→21:17)
[2024-08-06] MEDS: MULTIVITAMIN 15 ML UDC GT (08:30)
[2024-08-06] MEDS: ZINC SULFATE 220 MG CAPSULE GT (08:30)
--- NOTE | 2024-08-06 10:28 | PC.SS ---
SS follow up note; On IV ABX, pending cultures. Patient will discharge back to [facility] when medically cleared.
[2024-08-06] MEDS: DOXYCYCLINE 100 MG TABLET GT ×2 (14:00→21:17)
--- NOTE | 2024-08-06 14:29 | PD.RESPRO ---
Documentation for date of: 08/06/24 Subjective Subjective Interval history: Patient was seen and examined at bedside this morning. No acute overnight events. Patient has not spiked fevers and WBCs have been downtrending. Patient did grow GPC, many on the catheter tip culture, still pending pleural fluid Gram stain and culture. Spoke with patient's son and decision maker today over the phone to give him updates about patient's current condition and all questions were answered. Exam Vital Signs Temp Pulse Resp BP Pulse Ox O2 Del Method FiO2 97.7 F 69 19 123/61 100 Mechanical Ventilation 30 08/06/24 12:00 08/06/24 12:03 08/06/24 12:00 08/06/24 12:00 08/06/24 12:03 08/06/24 12:08/06/24 12:03 Narrative Exam General: Nonverbal, ill-appearing elderly able to move all extremities, but unable to trace or follow commands Eyes: Pupils sluggish, but extraocular muscles are intact. Unable to trace Ears: No visible ear discharge Nose: No visible nasal discharge. Mouth/Throat: Dry mucous membranes, no redness, no lesions. Neck: Neck supple, no cervical lymphadenopathy. Lungs: Coarse breath sounds, No accessory muscle use. Tracheostomy in place. Cardio: Normal S1/S2, irregular rhythm, no murmurs, no JVD Abdomen: Soft, non-tender, no palpable masses, peristalsis present, no guarding or rebound. Extremities: Symmetrical, no significant deformities, edema on bilateral feet, non-tender, peripheral pulses presents. Skin: Large decubitus ulcer on sacral region with some purulent discharge still present. Erythematous and friable tissue at site of Pleurx catheter. Neuro: Nonverbal at baseline, unable to trace, contractures noted, able to move lower extremities Objective Labs 08/06/24 05:31 08/06/24 05:31 Labs: Laboratory Results - last 24 hr 08/06/24 05:31 WBC 13.4 H RBC 2.93 L Hgb 8.5 L Hct 25.8 L MCV 88 MCH 29.0 MCHC 32.9 RDW Std Deviation 54.8 H Plt Count 266 D Neut % (Auto) 86 H Lymph % (Auto) 7 L [place] % (Auto) 5 Eos % (Auto) 1 Baso % (Auto) 0 Neut # (Auto) 11.6 H Lymph # (Auto) 0.9 L [place] # (Auto) 0.7 Eos # (Auto) 0.1 Baso # (Auto) 0.0 Immature Gran # (Auto) 0.08 H Absolute Nucleated RBC 0.00 Immature Gran % 1 H Nucleated RBC % 0 Sodium 148 H Potassium 4.3 Chloride 111 H Carbon Dioxide 27.8 Anion Gap 9 BUN 41 H Creatinine 0.8 Estim Creat Clear Calc 40.2 L eGFR > 60 BUN/Creatinine Ratio 51 H Glucose 184 H Calculated Osmolality 309 H Calcium 7.8 L Phosphorus 2.9 Magnesium 1.9 ABG Interpretation ABG results: 08/03/24 14:27 ABG pH 7.44 ABG pCO2 43 ABG pO2 87 ABG HCO3 30 H ABG O2 Saturation 98 ABG Base Excess 5 H Quality Measures Quality Measures none Advance care planning discussed with:: patient and legal surragate Assessment & Plan Assessment Current Active Medications: Generic Name Dose Route Start Last Admin Trade Name Freq PRN Reason Stop Dose Admin Acetaminophen 650 mg 08/03/24 19:25 Acetaminophen 325 Mg Tablet PO 09/02/24 19:24 Q6H PRN Fever >101.5 Amiodarone HCl 200 mg 08/04/24 09:00 08/06/24 08:30 Amiodarone Hcl 200 Mg Tablet GT 09/03/24 08:59 200 mg DAILY AMARJIT Administration Amlodipine Besylate 10 mg 08/04/24 09:00 08/06/24 08:30 Amlodipine Besylate 5 Mg Tablet GT 09/03/24 08:59 10 mg QDAY AMARJIT Administration Ascorbic Acid 500 mg 08/03/24 21:00 08/06/24 08:30 Ascorbic Acid 250 Mg Tablet GT 09/02/24 20:59 500 mg BID AMARJIT Administration Atorvastatin Calcium 80 mg 08/03/24 21:00 08/05/24 21:01 Atorvastatin Calcium 20 Mg Tablet GT 09/02/24 20:59 80 mg HS AMARJIT Administration Dextrose 25 ml 08/03/24 20:28 Dextrose 50%-Water Inj 50 Ml Syringe IV 09/02/24 20:27 Q15MIN PRN BG 50-70 responsive npo pt Dextrose 50 ml 08/03/24 20:28 Dextrose 50%-Water Inj 50 Ml Syringe IV 09/02/24 20:27 Q15MIN PRN BG <50 OR BG <70 & pt unresponsive Doxycycline Hyclate 100 mg 08/06/24 13:15 08/06/24 14:00 Doxycycline 100 Mg Tablet GT 08/13/24 13:14 100 mg BID AMARJIT Administration Glucagon 1 mg 08/03/24 20:28 Glucagon Inj 1 Mg Vial IM Q15MIN PRN BG <70, and no IV access Heparin Sodium (Porcine) 5,000 unit 08/03/24 22:00 08/06/24 14:00 Heparin Sod Inj 5000 Unit/Ml Vial SC 08/17/24 21:59 5,000 unit Q8HR AMARJIT Administration Piperacillin/Tazobactam/Dextrose 3.375 gm in 50 mls @ 12.5 mls/hr 08/04/24 06:00 08/06/24 14:00 Zosyn IV 08/11/24 05:59 12.5 mls/hr Q8HR AMARJIT Administration Protocol Insulin Human Lispro 0 unit 08/05/24 00:00 08/06/24 11:37 Insulin Lispro (Admelog) 1 Unit/0.01 Ml Unit SC 09/04/24 00:00 1 unit Q6HR AMARJIT Administration Protocol Multivitamins/Minerals 15 ml 08/05/24 09:00 08/06/24 08:30 Multivitamin 15 Ml Udc GT 09/04/24 08:59 15 ml QDAY AMARJIT Administration Zinc Sulfate 220 mg 08/05/24 09:00 08/06/24 08:30 Zinc Sulfate 220 Mg Capsule GT 09/04/24 08:59 220 mg QDAY AMARJIT Administration Plan 83-year-old female with past medical history of 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 #Acute hypoxic respiratory failure #Recurrent pleural effusions (suspicious for malignancy) Presented with RR 35, saturating 93% on 30% FiO2. CXR showed bilateral pleural-parenchymal disease with history of recurrent pleural effusions with prior PleurX catheter. Elevated BNP (1106), ABG pH 7.44/CO2 43/O2 87, cytology in 05/19/24 suspicious for malignancy. Today saturating well in the 98-99% on 30% FiO2 - Maintain oxygen supplementation to maintain SpO2 >92% - Monitor respiratory status and oxygen requirements closely #Leukocytosis secondary to UTI vs pleurx catheter site infection vs empyema WBC 22.3, UA with pyuria/hematuria, afebrile, procalcitonin 0.32. History of ESBL Klebsiella 05/2024. This admission, Pleurx catheter noted to have foul-smelling discharge around site and erythematous at base. Sample collected on 08/05 and sent to lab for culture and fluid analysis. - Pleurex catheter taken out 08/06/2024 - Follow-up pleural fluid culture and analysis (LDH, amylase, protein, glucose, cell count diff) - Per lab, unable to run pleural fluid as it was too viscous and will only be able to do Gram stain and cultures - Zosyn 3.375 g IV q8h (08/04-) and started Doxycycline 100mg BID (08/06-) - Blood culture 08/03: prelim GPC 1/2 bottles from anaerobic bottle. - Repeat blood culture 08/06: ordered - Urine culture 08/04: grew ESBL E. coli - Pleurx site culture 08/05: grew GPC preliminary - Pleural fluid culture 08/05: pending #Hypernatremia Na still 148 mmol/L, mild; possibly related to insensible losses or inadequate free water intake in PEG-dependent patient With goal Na of 140, free water deficit of 1.2 L - Water flushes 60 mL/h via PEG tube - Hold diuretics now to prevent further volume depletion - Monitor serum sodium daily - Assess fluid balance and adjust maintenance fluids or enteral regimen as needed #Atrial fibrillation Known history, sinus rhythm on EKG, [id number] Score = 6 (CHF, HTN, Age >75, Female, Prior CVA) - Continue amiodarone and restarted Eliquis 2.5 mg BID (age and body weight) #Hypertension BP better controlled today in the 130s over 60s. - Continue Amlodipine 10 mg GT daily #Type 2 Diabetes Mellitus Glucose 160 on admission, PEG-dependent; no DKA/HHS Last A1c 6.3% in 06/2024 - Maintain preprandial glucose <140 mg/dL, random <180 mg/dL - Nutrition support to coordinate with PEG feedings - Insulin sliding scale #Anemia Hgb 8.5 today, baseline 7-8 - Trend Hgb daily - Transfuse if Hgb less 7 #Chronic tracheostomy and PEG Dependence Baseline status, currently stable - Suction and trach care per protocol Disposition: Patient seen in telemetry due to AHRF in the setting of recurrent pleural effusion and UTI. Diet: Tube feeds (glucerna 1.2) GI prophylaxis: not indicated DVT prophylaxis: Eliquis Code: DNR Case disclosed with Attending Dr. Sera Brunner PGY1 Attending Provider Attestation/Addendum I have discussed and was present for the essential components of the history, physical examination, diagnosis, and treatment plan with the resident. I agree with the patient's care as documented by the resident and amended herein by me. Frandy Zamora, DO. Chest tube removed today, will increase free water flushes, continue to follow-up with cultures, and attempt to contact family for possible goals of care. WBC downtrending, hemoglobin stable 8.5, sodium 148, chloride 111, other vital stable today. Although this document has been carefully reviewed, there may still be some phonetic and other typographical errors. These errors are purely grammatical due to imperfections in the software program and should not be construed in any way to compromise the substance of the patient's medical care during this visit.
--- NOTE | 2024-08-06 15:04 | PC.SS ---
SS follow up note; PASSR LVL 1 Completed. Pending Cultures, possible discharge tomorrow.
[2024-08-06] MEDS: APIXABAN 2.5 MG TABLET GT (21:17)
[2024-08-06] MEDS: ATORVASTATIN CALCIUM 20 MG TABLET 80 MG GT (21:17)
[2024-08-06] MEDS: SOD HYPOCHLORITE 1/4 STR 473 ML BTL IRRIG (21:18)
[2024-08-07] VITALS (11 sets, daily range): BP systolic 121–146; BP diastolic 60–89; PULSE 60–75; RESP 16–25; TEMP 36.1–36.5; O2SAT 99–100
[2024-08-07] MEDS: PIPER/TAZO 3.375 GM PREMIX 3.375 GM/50 ML BAG IV ×3 (05:11→22:10)
[2024-08-07 06:25] LABS: Basophils % (Auto) 0 % (0-2.5); Eosinophils # (Auto) 0.2 Thou/mm3 (0.0-0.5); Eosinophils % (Auto) 2 % (0-10); Hematocrit 24.3 % (36.0-46.0); Immature Granulocytes % (Auto) 1 % (0-0); Immature Granulocytes Auto 0.08 Thou/mm3 (0.00-0.00); Lymphocytes % (Auto) 8 % (10-50); Mean Corpuscular HGB Conc 33.3 g/dl (31.0-37.0); Mean Corpuscular Hemoglobin 29.2 pg (25.0-35.0); Mean Corpuscular Volume 88 fL (80-100); Monocytes # (Auto) 0.8 Thou/mm3 (0.0-0.8); Monocytes % (Auto) 7 % (0-12); Neutrophils # (Auto) 9.4 Thou/mm3 (1.8-7.7); Neutrophils % (Auto) 82 % (37-80); Nucleated Red Blood Cell % 0 /100 WBC (0); Platelet Count 284 Thou/mm3 (140-440); RDW Standard Deviation 53.8 fL (36.4-46.3); Red Blood Count 2.77 Miln/mm3 (4.00-5.20); White Blood Count 11.4 Thou/mm3 (3.6-11.0)
[2024-08-07 07:10] LABS: Alanine Aminotransferase 27 U/L (10-49); Albumin, Serum 2.7 gm/dL (3.4-4.8); Albumin/Globulin Ratio 0.8 (1.2-2.2); Alkaline Phosphatase 70 U/L (46-116); Anion Gap 7 (7-16); Aspartate Amino Transferase 19 U/L (0-34); BUN/Creatinine Ratio 44 Ratio (12-20); Bilirubin,Total 0.3 mg/dL (0.3-1.2); Blood Urea Nitrogen 35 mg/dL (9-23); Calcium 7.7 mg/dL (8.3-10.6); Calcium (Corrected) 8.7 mg/dL (8.5-10.1); Carbon Dioxide 29.1 mMol/L (20.0-31.0); Chloride 109 mMol/L (98-107); Creatinine (Component) 0.8 mg/dL (0.6-1.3); Estimated Creatinine Clearance 40.2 mL/min (>60); Globulin 3.3 gm/dL (2.3-3.5); Glucose 156 mg/dL (74-106); Magnesium 1.9 mg/dL (1.6-2.6); Osmolality,Calculated 299 (275-295); Phosphorous 3.1 mg/dL (2.4-5.1); Potassium 4.1 mMol/L (3.4-5.1); Sodium 145 mMol/L (136-145); eGFR > 60 See Note
[2024-08-07 07:24] LABS: Hemoglobin 8.1 g/dL (12.0-16.0)
[2024-08-07] MEDS: ASCORBIC ACID 250 MG TABLET 500 MG GT ×2 (08:47→20:30)
[2024-08-07] MEDS: MULTIVITAMIN 15 ML UDC GT (08:47)
[2024-08-07] MEDS: amLODIPine BESYLATE 5 MG TABLET 10 MG GT (08:48)
[2024-08-07] MEDS: APIXABAN 2.5 MG TABLET GT ×2 (08:48→20:30)
[2024-08-07] MEDS: ZINC SULFATE 220 MG CAPSULE GT (08:48)
[2024-08-07] MEDS: AMIODARONE HCL 200 MG TABLET GT (08:48)
--- NOTE | 2024-08-07 09:54 | XR_ITS ---
Examination: AP chest single view Technique one AP sitting portable chest single view Date and time: August 07, 2024 1005 hours Comparison August 03, 2024 INDICATIONS: Difficulty breathing this week. FINDINGS: Normal heart size Significant bilateral pleural disease Pneumonia at the lung bases Tracheostomy tube tip 7.7 cm above [place] IMPRESSION: Bibasilar pneumonia with significant pleural disease
--- NOTE | 2024-08-07 11:16 | ESPR_ITS ---
<Statement entered by Jenn Ray MD - 08/07/24 17:38> Patient seen and examined at bedside. No acute overnight events reported. Patient's Gram stain from Pleurx catheter insertion site showed MRSA. Patient continues to be on IV vancomycin and Zosyn. Pending further cultures of pleural fluid. Chest x-ray also ordered and pending for further discussion about drainage. Otherwise, patient's labs vitals: Patient appears to be of similar vent settings, with no apparent distress seen on exam. I discussed with and supervised the exercise science internship physician who took care of this patient. I personally saw and examined the patient and discussed the assessment and plan with the entire medicine team, including my attending Dr. Zamora, I agree with most of the assessment and plan as documented below Jenn Ray M.D. PGY-2 Disclaimer: Despite multiple revisions, due to the dictation software being used, the document bellow may not be free of grammatical errors including phonetic/typographic errors. However, this does not deter from our commitment to providing health care in the patient's best interest in mind. Documentation for date of: 08/07/24 Subjective Subjective Interval history: No acute overnight events noted. Seen and examined at bedside and status post removal of Pleurx catheter with site bandaged and without surrounding drainage noted. No recorded fevers overnight and oxygen requirements have remained stable at 30% FiO2. WBC continues to downtrend, hemoglobin stable, hyponatremia resolved at 60 cc/h water flushes, magnesium 1.9 and repleted. Otherwise CHEM panel unremarkable. Repeat CXR after removing Pleurx catheter showed improved opacity in the right lower and middle lobes, though opacities still noted nonetheless. Exam Vital Signs Temp Pulse Resp BP Pulse Ox O2 Del Method FiO2 97.7 F 64 19 143/67 H 100 Mechanical Ventilation 30 08/07/24 08:00 08/07/24 08:48 08/07/24 08:00 08/07/24 08:48 08/07/24 08:00 08/07/24 08:00 08/07/24 06:19 Narrative Exam General: awake, does not appear alert, no acute distress HEENT: NC/AT, mucous membranes moist, bilateral sclera anicteric Cardiovascular: regular rate and rhythm, S1/S2 present, no murmurs appreciated Pulmonary: previous Pleurx catheter site bandaged; coarse lung sounds in upper airways, no crackles or wheezing appreciated Abdominal: soft, non-tender, non-distended, no rebound/guarding, normal bowel sounds present Musculoskeletal: 1+ pitting lower extremity edema Skin: warm and dry, intact, no rashes Objective Labs 08/07/24 05:30 08/07/24 05:30 Labs: Laboratory Results - last 24 hr 08/07/24 05:30 WBC 11.4 H RBC 2.77 L Hgb 8.1 L Hct 24.3 L MCV 88 MCH 29.2 MCHC 33.3 RDW Std Deviation 53.8 H Plt Count 284 Neut % (Auto) 82 H Lymph % (Auto) 8 L Caswell % (Auto) 7 Eos % (Auto) 2 Baso % (Auto) 0 Neut # (Auto) 9.4 H Lymph # (Auto) 1.0 [place]well # (Auto) 0.8 Eos # (Auto) 0.2 Baso # (Auto) 0.0 Immature Gran # (Auto) 0.08 H Absolute Nucleated RBC 0.00 Immature Gran % 1 H Nucleated RBC % 0 Sodium 145 Potassium 4.1 Chloride 109 H Carbon Dioxide 29.1 Anion Gap 7 BUN 35 H Creatinine 0.8 Estim Creat Clear Calc 40.2 L eGFR > 60 BUN/Creatinine Ratio 44 H Glucose 156 H Calculated Osmolality 299 H Calcium 7.7 L Corrected Calcium 8.7 Phosphorus 3.1 Magnesium 1.9 Total Bilirubin 0.3 AST 19 ALT 27 Alkaline Phosphatase 70 Total Protein 6.0 Albumin 2.7 L Globulin 3.3 Albumin/Globulin Ratio 0.8 L ABG Interpretation ABG results: 08/03/24 14:27 ABG pH 7.44 ABG pCO2 43 ABG pO2 87 ABG HCO3 30 H ABG O2 Saturation 98 ABG Base Excess 5 H Quality Measures Quality Measures none Advance care planning discussed with:: patient Assessment & Plan Assessment Current Active Medications: Generic Name Dose Route Start Last Admin Trade Name Freq PRN Reason Stop Dose Admin Acetaminophen 650 mg 08/03/24 19:25 Acetaminophen 325 Mg Tablet PO 09/02/24 19:24 Q6H PRN Fever >101.5 Amiodarone HCl 200 mg 08/04/24 09:00 08/07/24 08:48 Amiodarone Hcl 200 Mg Tablet GT 09/03/24 08:59 200 mg DAILY AMARJIT Administration Amlodipine Besylate 10 mg 08/04/24 09:00 08/07/24 08:48 Amlodipine Besylate 5 Mg Tablet GT 09/03/24 08:59 10 mg QDAY AMARJIT Administration Apixaban 2.5 mg 08/06/24 21:00 08/07/24 08:48 Apixaban 2.5 Mg Tablet GT 09/05/24 20:59 2.5 mg BID AMARJIT Administration Ascorbic Acid 500 mg 08/03/24 21:00 08/07/24 08:47 Ascorbic Acid 250 Mg Tablet GT 09/02/24 20:59 500 mg BID AMARJIT Administration Atorvastatin Calcium 80 mg 08/03/24 21:00 08/06/24 21:17 Atorvastatin Calcium 20 Mg Tablet GT 09/02/24 20:59 80 mg HS AMARJIT Administration Dextrose 25 ml 08/03/24 20:28 Dextrose 50%-Water Inj 50 Ml Syringe IV 09/02/24 20:27 Q15MIN PRN BG 50-70 responsive npo pt Dextrose 50 ml 08/03/24 20:28 Dextrose 50%-Water Inj 50 Ml Syringe IV 09/02/24 20:27 Q15MIN PRN BG <50 OR BG <70 & pt unresponsive Glucagon 1 mg 08/03/24 20:28 Glucagon Inj 1 Mg Vial IM Q15MIN PRN BG <70, and no IV access Piperacillin/Tazobactam/Dextrose 3.375 gm in 50 mls @ 12.5 mls/hr 08/04/24 06:00 08/07/24 05:11 Zosyn IV 08/11/24 05:59 12.5 mls/hr Q8HR [facility] Administration Protocol Vancomycin/Sodium Chloride 100 mls @ 120 mls/hr 08/07/24 10:00 Vancomycin/Ns 500 Mg Ivpb IV 08/14/24 09:59 Q12HR@1000,2200 [facility] Insulin Human Lispro 0 unit 08/05/24 00:00 08/07/24 05:18 Insulin Lispro (Admelog) 1 Unit/0.01 Ml Unit SC 09/04/24 00:00 Not Given Q6HR [facility] Protocol Multivitamins/Minerals 15 ml 08/05/24 09:00 08/07/24 08:47 Multivitamin 15 Ml Udc GT 09/04/24 08:59 15 ml QDAY AMARJIT Administration Pharmacy Consult 1 each 08/07/24 09:00 Vancomycin Pharmacy To Dose 1 Each Each IV 09/06/24 08:59 QDAY PRN CONSULT Sodium Hypochlorite 473 ml 08/06/24 21:00 08/06/24 21:18 Sod Hypochlorite 1/4 Str 473 Ml Btl IRRIG 09/05/24 20:59 473 ml BID AMARJIT Administration Zinc Sulfate 220 mg 08/05/24 09:00 08/07/24 08:48 Zinc Sulfate 220 Mg Capsule GT 09/04/24 08:59 220 mg QDAY AMARJIT Administration Plan 83-year-old female with past medical history of 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 #Leukocytosis secondary to UTI vs pleurx catheter site infection vs empyema WBC 22.3, UA with pyuria/hematuria, afebrile, procalcitonin 0.32. History of ESBL Klebsiella 05/2024. This admission, Pleurx catheter noted to have foul-smelling discharge around site and erythematous at base. Sample collected on 08/05 and sent to lab for culture and fluid analysis. However, pleural fluid too viscous for fluid analysis. Blood culture 08/03: 1/2 bottles GPC, pending speciation Blood culture 08/06: NGTD Urine culture 08/04 positive for MRSA and ESBL Klebsiella pneumonia Catheter insertion site culture: positive for MRSA Pleural fluid culture: GPC on Gram stain Doxycycline (08/06-08/07) - Zosyn 3.375 g IV q8h (08/04-) and vancomycin (08/07-) - Pleurex catheter taken out 08/06/2024 - Follow-up cultures #Acute hypoxic respiratory failure, stable #Recurrent pleural effusions (suspicious for malignancy) Presented with RR 35, saturating 93% on 30% FiO2. CXR showed bilateral pleural- parenchymal disease with history of recurrent pleural effusions with prior PleurX catheter. Elevated BNP (1106), ABG pH 7.44/CO2 43/O2 87, cytology in 05/19/24 suspicious for malignancy. - Maintain oxygen supplementation to maintain SpO2 >92% - Monitor respiratory status and oxygen requirements closely #Hypernatremia, resolved Na still 148 mmol/L, mild; possibly related to insensible losses or inadequate free water intake in PEG-dependent patient With goal Na of 140, free water deficit of 1.2 L - Water flushes 60 mL/h via PEG tube - Hold diuretics now to prevent further volume depletion - Monitor serum sodium daily - Assess fluid balance and adjust maintenance fluids or enteral regimen as needed #Atrial fibrillation Known history, sinus rhythm on EKG, [id number] Score = 6 (CHF, HTN, Age >75, Female, Prior CVA) - Continue amiodarone and restarted Eliquis 2.5 mg BID (age and body weight) #Hypertension BP better controlled today in the 130s over 60s. - Continue Amlodipine 10 mg GT daily #Type 2 Diabetes Mellitus Glucose 160 on admission, PEG-dependent; no DKA/HHS Last A1c 6.3% in 06/2024 - Maintain preprandial glucose <140 mg/dL, random <180 mg/dL - Nutrition support to coordinate with PEG feedings - Insulin sliding scale #Anemia Hgb 8.5 today, baseline 7-8 - Trend Hgb daily - Transfuse if Hgb less 7 #Chronic tracheostomy and PEG Dependence Baseline status, currently stable - Suction and trach care per protocol Hospital management: Disposition: pending cultures and on IV antibiotics Diet: tube feeds (glucerna 1.2) Lines: PIV DVT prophylaxis: on eliquis GI prophylaxis: not indicated Hector: placed CODE STATUS: DNR ----- Plan discussed with attending physician Dr. Zamora and senior resident physician Dr. Cory Trejo MD PGY-1 Internal Medicine Attending Provider Attestation/Addendum I have discussed and was present for the essential components of the history, physical examination, diagnosis, and treatment plan with the resident. I agree with the patient's care as documented by the resident and amended herein by me. Frandy Zamora DO. Patient seen and evaluated this AM. No acute events overnight, vital signs stable, patient afebrile. Significant labs included WBC 11.4, hemoglobin 8.1. Blood cultures demonstrating GPC x 1 yesterday, repeats are pending, the catheter tip is demonstrating gram-positive cocci, pleural fluid also demonstrated GPC's, urine culture pending. Today we will change antibiotics up continuing Zosyn and adding vancomycin for now, chest x-ray also ordered and pending. Patient is stable however we will continue to monitor closely, we did call the son yesterday however he seemed a bit uninterested per my resident. Will continue full measures at this time, treating for possible pneumonia versus empyema versus skin infection from the chest tube that was removed yesterday. Although this document has been carefully reviewed, there may still be some phonetic and other typographical errors. These errors are purely grammatical due to imperfections in the software program and should not be construed in any way to compromise the substance of the patient's medical care during this visit.
[2024-08-07] MEDS: VANCOMYCIN/NS 500 MG IVPB 100 ML 120 MG IV ×2 (11:44→21:02)
[2024-08-07] MEDS: SOD HYPOCHLORITE 1/4 STR 473 ML BTL IRRIG ×2 (11:44→21:02)
[2024-08-07] MEDS: INSULIN LISPRO (AdmeLOG) 1 UNIT/0.01 ML UNIT SC ×3 (11:45→23:36)
[2024-08-07] MEDS: Magnesium Sulfate 2 GM Ivpb 2 GM/50 ML BAG IV (12:23)
[2024-08-07] MEDS: ATORVASTATIN CALCIUM 20 MG TABLET 80 MG GT (20:30)
[2024-08-08] VITALS (14 sets, daily range): BP systolic 116–141; BP diastolic 52–70; PULSE 60–68; RESP 15–22; TEMP 36.2–36.4; O2SAT 99–100
[2024-08-08] MEDS: PIPER/TAZO 3.375 GM PREMIX 3.375 GM/50 ML BAG IV ×3 (05:56→21:30)
[2024-08-08 06:14] LABS: Basophils % (Auto) 0 % (0-2.5); Eosinophils # (Auto) 0.4 Thou/mm3 (0.0-0.5); Eosinophils % (Auto) 3 % (0-10); Hematocrit 25.6 % (36.0-46.0); Immature Granulocytes % (Auto) 1 % (0-0); Lymphocytes % (Auto) 8 % (10-50); Mean Corpuscular HGB Conc 33.2 g/dl (31.0-37.0); Mean Corpuscular Hemoglobin 29.1 pg (25.0-35.0); Mean Corpuscular Volume 88 fL (80-100); Monocytes # (Auto) 0.7 Thou/mm3 (0.0-0.8); Monocytes % (Auto) 6 % (0-12); Neutrophils # (Auto) 9.6 Thou/mm3 (1.8-7.7); Neutrophils % (Auto) 81 % (37-80); Nucleated Red Blood Cell % 0 /100 WBC (0); Platelet Count 240 Thou/mm3 (140-440); RDW Standard Deviation 52.2 fL (36.4-46.3); Red Blood Count 2.92 Miln/mm3 (4.00-5.20); White Blood Count 11.9 Thou/mm3 (3.6-11.0)
[2024-08-08 06:18] LABS: Hemoglobin 8.5 g/dL (12.0-16.0)
[2024-08-08 06:40] LABS: Alanine Aminotransferase 24 U/L (10-49); Albumin, Serum 2.7 gm/dL (3.4-4.8); Albumin/Globulin Ratio 0.8 (1.2-2.2); Alkaline Phosphatase 67 U/L (46-116); Anion Gap 9 (7-16); Aspartate Amino Transferase 23 U/L (0-34); BUN/Creatinine Ratio 41 Ratio (12-20); Bilirubin,Total 0.3 mg/dL (0.3-1.2); Blood Urea Nitrogen 33 mg/dL (9-23); Calcium 7.3 mg/dL (8.3-10.6); Calcium (Corrected) 8.3 mg/dL (8.5-10.1); Carbon Dioxide 28.2 mMol/L (20.0-31.0); Chloride 106 mMol/L (98-107); Creatinine (Component) 0.8 mg/dL (0.6-1.3); Estimated Creatinine Clearance 40.2 mL/min (>60); Globulin 3.3 gm/dL (2.3-3.5); Glucose 160 mg/dL (74-106); Magnesium 2.2 mg/dL (1.6-2.6); Osmolality,Calculated 295 (275-295); Phosphorous 3.3 mg/dL (2.4-5.1); Potassium 4.5 mMol/L (3.4-5.1); Sodium 143 mMol/L (136-145); eGFR > 60 See Note
[2024-08-08] MEDS: amLODIPine BESYLATE 5 MG TABLET 10 MG GT (08:47)
[2024-08-08] MEDS: ZINC SULFATE 220 MG CAPSULE GT (08:48)
[2024-08-08] MEDS: APIXABAN 2.5 MG TABLET GT ×2 (08:48→20:54)
[2024-08-08] MEDS: ASCORBIC ACID 250 MG TABLET 500 MG GT ×2 (08:48→20:54)
[2024-08-08] MEDS: AMIODARONE HCL 200 MG TABLET GT (08:48)
[2024-08-08] MEDS: MULTIVITAMIN 15 ML UDC GT (08:48)
[2024-08-08] MEDS: SOD HYPOCHLORITE 1/4 STR 473 ML BTL IRRIG ×2 (08:49→20:54)
[2024-08-08] MEDS: VANCOMYCIN/NS 500 MG IVPB 100 ML 120 MG IV ×2 (10:04→22:00)
--- NOTE | 2024-08-08 10:07 | ESPR_ITS ---
<Statement entered by Jenn Ray MD - 08/08/24 13:52> I discussed with and supervised the fashion styling intern physician who took care of this patient. I personally saw and examined the patient and discussed the assessment and plan with the entire medicine team, including my attending , I agree with most of the assessment and plan as documented below Jenn Ray M.D. PGY-2 Documentation for date of: 08/08/24 Subjective Subjective Interval history: No acute overnight events noted. Seen and examined at bedside patient remains on same oxygen requirements, vital signs stable. Pleurx catheter site status post removal somewhat indurated but not able to express any purulent material. At this time we will continue with current antibiotic regimen but given patient's prognosis and likelihood of recurrent effusions, we will attempt to reach out to family again and have another goals of care discussion. Exam Vital Signs Temp Pulse Resp BP Pulse Ox O2 Del Method O2 Flow Rate 97.2 F 63 16 130/57 L 100 Mechanical Ventilation 4 08/08/24 08:00 08/08/24 08:48 08/08/24 08:00 08/08/24 08:48 08/08/24 08:00 08/08/24 08:00 08/08/24 04:00 FiO2 30 08/08/24 07:09 Narrative Exam General: awake, does not appear alert, no acute distress HEENT: NC/AT, mucous membranes moist, bilateral sclera anicteric Cardiovascular: regular rate and rhythm, S1/S2 present, no murmurs appreciated Pulmonary: previous Pleurx catheter site bandaged; coarse lung sounds in upper airways, no crackles or wheezing appreciated Abdominal: soft, non-tender, non-distended, no rebound/guarding, normal bowel sounds present Musculoskeletal: 1+ pitting lower extremity edema Skin: warm and dry, intact, no rashes Objective Labs 08/09/24 05:03 08/09/24 05:03 Labs: Laboratory Results - last 24 hr 08/08/24 05:56 WBC 11.9 H RBC 2.92 L Hgb 8.5 L Hct 25.6 L MCV 88 MCH 29.1 MCHC 33.2 RDW Std Deviation 52.2 H Plt Count 240 D Neut % (Auto) 81 H Lymph % (Auto) 8 L Gray % (Auto) 6 Eos % (Auto) 3 Baso % (Auto) 0 Neut # (Auto) 9.6 H Lymph # (Auto) 1.0 Gray # (Auto) 0.7 Eos # (Auto) 0.4 Baso # (Auto) 0.0 Immature Gran # (Auto) 0.10 H Absolute Nucleated RBC 0.00 Immature Gran % 1 H Nucleated RBC % 0 Sodium 143 Potassium 4.5 Chloride 106 Carbon Dioxide 28.2 Anion Gap 9 BUN 33 H Creatinine 0.8 Estim Creat Clear Calc 40.2 L eGFR > 60 BUN/Creatinine Ratio 41 H Glucose 160 H Calculated Osmolality 295 Calcium 7.3 L Corrected Calcium 8.3 L Phosphorus 3.3 Magnesium 2.2 Total Bilirubin 0.3 AST 23 ALT 24 Alkaline Phosphatase 67 Total Protein 6.0 Albumin 2.7 L Globulin 3.3 Albumin/Globulin Ratio 0.8 L ABG Interpretation ABG results: 08/03/24 14:27 ABG pH 7.44 ABG pCO2 43 ABG pO2 87 ABG HCO3 30 H ABG O2 Saturation 98 ABG Base Excess 5 H Quality Measures Quality Measures none Advance care planning discussed with:: patient Assessment & Plan Assessment Current Active Medications: Generic Name Dose Route Start Last Admin Trade Name Freq PRN Reason Stop Dose Admin Acetaminophen 650 mg 08/03/24 19:25 Acetaminophen 325 Mg Tablet PO 09/02/24 19:24 Q6H PRN Fever >101.5 Amiodarone HCl 200 mg 08/04/24 09:00 08/08/24 08:48 Amiodarone Hcl 200 Mg Tablet GT 09/03/24 08:59 200 mg DAILY AMARJIT Administration Amlodipine Besylate 10 mg 08/04/24 09:00 08/08/24 08:47 Amlodipine Besylate 5 Mg Tablet GT 09/03/24 08:59 10 mg QDAY AMARJIT Administration Apixaban 2.5 mg 08/06/24 21:00 08/08/24 08:48 Apixaban 2.5 Mg Tablet GT 09/05/24 20:59 2.5 mg BID AMARJIT Administration Ascorbic Acid 500 mg 08/03/24 21:00 08/08/24 08:48 Ascorbic Acid 250 Mg Tablet GT 09/02/24 20:59 500 mg BID AMARJIT Administration Atorvastatin Calcium 80 mg 08/03/24 21:00 08/07/24 20:30 Atorvastatin Calcium 20 Mg Tablet GT 09/02/24 20:59 80 mg HS AMARJIT Administration Dextrose 25 ml 08/03/24 20:28 Dextrose 50%-Water Inj 50 Ml Syringe IV 09/02/24 20:27 Q15MIN PRN BG 50-70 responsive npo pt Dextrose 50 ml 08/03/24 20:28 Dextrose 50%-Water Inj 50 Ml Syringe IV 09/02/24 20:27 Q15MIN PRN BG <50 OR BG <70 & pt unresponsive Glucagon 1 mg 08/03/24 20:28 Glucagon Inj 1 Mg Vial IM Q15MIN PRN BG <70, and no IV access Piperacillin/Tazobactam/Dextrose 3.375 gm in 50 mls @ 12.5 mls/hr 08/04/24 06:00 08/08/24 05:56 Zosyn IV 08/11/24 05:59 12.5 mls/hr Q8HR AMARJIT Administration Protocol Vancomycin/Sodium Chloride 100 mls @ 120 mls/hr 08/07/24 10:00 08/08/24 10:04 Vancomycin/Ns 500 Mg Ivpb IV 08/14/24 09:59 120 mls/hr Q12HR@1000,2200 AMARJIT Administration Protocol Insulin Human Lispro 0 unit 08/05/24 00:00 08/08/24 05:39 Insulin Lispro (Admelog) 1 Unit/0.01 Ml Unit SC 09/04/24 00:00 Not Given Q6HR AMARJIT Protocol Multivitamins/Minerals 15 ml 08/05/24 09:00 08/08/24 08:48 Multivitamin 15 Ml Udc GT 09/04/24 08:59 15 ml QDAY AMARJIT Administration Pharmacy Consult 1 each 08/07/24 09:00 Vancomycin Pharmacy To Dose 1 Each Each IV 09/06/24 08:59 QDAY PRN CONSULT Sodium Hypochlorite 473 ml 08/06/24 21:00 08/08/24 08:49 Sod Hypochlorite 1/4 Str 473 Ml Btl IRRIG 09/05/24 20:59 473 ml BID AMARJIT Administration Zinc Sulfate 220 mg 08/05/24 09:00 08/08/24 08:48 Zinc Sulfate 220 Mg Capsule GT 09/04/24 08:59 220 mg QDAY AMARJIT Administration Plan 83-year-old female with past medical history of 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 #Leukocytosis secondary to UTI vs pleurx catheter site infection vs empyema WBC 22.3, UA with pyuria/hematuria, afebrile, procalcitonin 0.32. History of ESBL Klebsiella 05/2024. This admission, Pleurx catheter noted to have foul-smelling discharge around site and erythematous at base. Sample collected on 08/05 and sent to lab for culture and fluid analysis. However, pleural fluid too viscous for fluid analysis. Blood culture 08/03: 1/2 bottles Staph hominis Blood culture 08/06: NGTD Urine culture 08/04 positive for MRSA and ESBL Klebsiella pneumonia Catheter insertion site culture: positive for MRSA Pleural fluid culture: MRSA Doxycycline (08/06-08/07) - Zosyn 3.375 g IV q8h (08/04-) and vancomycin (08/07-) - Pleurex catheter taken out 08/06/2024 - Follow-up cultures #Acute hypoxic respiratory failure, stable #Recurrent pleural effusions (suspicious for malignancy) #Chronic tracheostomy and PEG dependence Presented with RR 35, saturating 93% on 30% FiO2. CXR showed bilateral pleural- parenchymal disease with history of recurrent pleural effusions with prior PleurX catheter. Elevated BNP (1106), ABG pH 7.44/CO2 43/O2 87, cytology in 05/19/24 suspicious for malignancy. - Maintain oxygen supplementation to maintain SpO2 >92% - Monitor respiratory status and oxygen requirements closely - Plan for another [facility] discussion - Suction and trach care per protocol #Hypernatremia, resolved Na still 148 mmol/L, mild; possibly related to insensible losses or inadequate free water intake in PEG-dependent patient With goal Na of 140, free water deficit of 1.2 L - Water flushes 60 mL/h via PEG tube - Hold diuretics now to prevent further volume depletion - Monitor serum sodium daily - Assess fluid balance and adjust maintenance fluids or enteral regimen as needed #Atrial fibrillation Known history, sinus rhythm on EKG, [id number] Score = 6 (CHF, HTN, Age >75, Female, Prior CVA) - Continue amiodarone and restarted Eliquis 2.5 mg BID (age and body weight) #Hypertension BP better controlled today in the 130s over 60s. - Continue Amlodipine 10 mg GT daily #Type 2 Diabetes Mellitus Glucose 160 on admission, PEG-dependent; no DKA/HHS Last A1c 6.3% in 06/2024 - Maintain preprandial glucose <140 mg/dL, random <180 mg/dL - Nutrition support to coordinate with PEG feedings - Insulin sliding scale #Anemia Hgb 8.5 today, baseline 7-8 - Trend Hgb daily - Transfuse if Hgb less 7 Hospital management: Disposition: pending cultures and on IV antibiotics Diet: tube feeds (glucerna 1.2) Lines: PIV DVT prophylaxis: on eliquis GI prophylaxis: not indicated Hector: placed CODE STATUS: DNR ----- Plan discussed with attending physician Dr. Figueroa and senior resident physician Dr. Cory Trejo MD PGY-1 Internal Medicine Attending Provider Attestation/Addendum I reviewed labs, imaging, EKG, home medications and prior available records. Face to face evaluation was performed by me. I have personally examined the patient and discussed assessment and plan with the IM team. I reviewed the resident note and agree with the plan with exceptions as below. Bilateral pleural effusions Hospital-acquired pneumonia Pleurx catheter infection by MRSA Chronic hypoxic respiratory failure History of CVA Atrial fibrillation with controlled ventricular rhythm Continue oxygen treatment via tracheostomy through ventilator Continue Zosyn/vancomycin Blood culture 08/03: 1/2 bottles Staph hominis, likely contamination Blood culture 08/06: NGTD Urine culture 08/04 positive for MRSA and ESBL Klebsiella pneumonia Catheter insertion site culture: positive for MRSA Pleural fluid culture: MRSA Pleurx catheter was taken out Patient is high risk of catheter infection however this is anticipated as it was only meant to be a palliative treatment in the hospice patient Since family keeps reversing the hospice status, we will need to arrange for another goals of care discussion
[2024-08-08] MEDS: INSULIN LISPRO (AdmeLOG) 1 UNIT/0.01 ML UNIT SC ×2 (11:36→17:16)
--- NOTE | 2024-08-08 16:26 | PC.SS ---
Rounding Note: Plan is to have goals of care discussion with son. Pleurex cath has been removed.
--- NOTE | 2024-08-08 17:22 | PC.SS ---
[employer] contacted pateint's son, Rashel Oh; to scheduled goals of care discussion. Son available by phone tomorrow between 09:00-11:00 am. [employer] updated residental team.
[2024-08-08] MEDS: ATORVASTATIN CALCIUM 20 MG TABLET 80 MG GT (20:54)
[2024-08-08 21:30] LABS: Vancomycin,Trough 14.9 mcg/mL (5.0-10.0)
[2024-08-09] VITALS (10 sets, daily range): BP systolic 142–143; BP diastolic 67–77; PULSE 62–69; RESP 15–25; TEMP 36.2–36.4; O2SAT 100
[2024-08-09] MEDS: INSULIN LISPRO (AdmeLOG) 1 UNIT/0.01 ML UNIT SC ×2 (05:19→11:51)
[2024-08-09] MEDS: PIPER/TAZO 3.375 GM PREMIX 3.375 GM/50 ML BAG IV ×2 (05:19→13:18)
[2024-08-09 05:51] LABS: Basophils % (Auto) 0 % (0-2.5); Eosinophils # (Auto) 0.6 Thou/mm3 (0.0-0.5); Eosinophils % (Auto) 4 % (0-10); Hematocrit 22.4 % (36.0-46.0); Immature Granulocytes % (Auto) 2 % (0-0); Immature Granulocytes Auto 0.23 Thou/mm3 (0.00-0.00); Lymphocytes # (Auto) 1.3 Thou/mm3 (1.0-4.8); Lymphocytes % (Auto) 9 % (10-50); Mean Corpuscular HGB Conc 32.1 g/dl (31.0-37.0); Mean Corpuscular Hemoglobin 29.1 pg (25.0-35.0); Mean Corpuscular Volume 91 fL (80-100); Monocytes # (Auto) 0.8 Thou/mm3 (0.0-0.8); Monocytes % (Auto) 6 % (0-12); Neutrophils # (Auto) 11.8 Thou/mm3 (1.8-7.7); Neutrophils % (Auto) 80 % (37-80); Nucleated Red Blood Cell % 0 /100 WBC (0); Platelet Count 246 Thou/mm3 (140-440); RDW Standard Deviation 54.4 fL (36.4-46.3); Red Blood Count 2.47 Miln/mm3 (4.00-5.20); White Blood Count 14.8 Thou/mm3 (3.6-11.0)
[2024-08-09 06:01] LABS: Hemoglobin 7.2 g/dL (12.0-16.0)
[2024-08-09 06:10] LABS: Alanine Aminotransferase 20 U/L (10-49); Albumin, Serum 2.5 gm/dL (3.4-4.8); Albumin/Globulin Ratio 0.8 (1.2-2.2); Alkaline Phosphatase 67 U/L (46-116); Anion Gap 10 (7-16); Aspartate Amino Transferase 16 U/L (0-34); BUN/Creatinine Ratio 38 Ratio (12-20); Bilirubin,Total 0.3 mg/dL (0.3-1.2); Blood Urea Nitrogen 30 mg/dL (9-23); Calcium 7.3 mg/dL (8.3-10.6); Calcium (Corrected) 8.5 mg/dL (8.5-10.1); Chloride 103 mMol/L (98-107); Creatinine (Component) 0.8 mg/dL (0.6-1.3); Estimated Creatinine Clearance 40.2 mL/min (>60); Globulin 3.2 gm/dL (2.3-3.5); Glucose 163 mg/dL (74-106); Osmolality,Calculated 291 (275-295); Potassium 4.3 mMol/L (3.4-5.1); Sodium 141 mMol/L (136-145); Total Protein 5.7 gm/dL (5.7-8.2); eGFR > 60 See Note
[2024-08-09] MEDS: ZINC SULFATE 220 MG CAPSULE GT (09:00)
[2024-08-09] MEDS: AMIODARONE HCL 200 MG TABLET GT (09:00)
[2024-08-09] MEDS: MULTIVITAMIN 15 ML UDC GT (09:00)
[2024-08-09] MEDS: APIXABAN 2.5 MG TABLET GT (09:01)
[2024-08-09] MEDS: ASCORBIC ACID 250 MG TABLET 500 MG GT (09:02)
[2024-08-09] MEDS: amLODIPine BESYLATE 5 MG TABLET 10 MG GT (09:02)
[2024-08-09] MEDS: SOD HYPOCHLORITE 1/4 STR 473 ML BTL IRRIG (09:03)
--- NOTE | 2024-08-09 09:13 | PD.RESPRO ---
Documentation for date of: 08/09/24 Subjective Subjective Interval history: No acute overnight events noted. Seen and examined at bedside and patient remains on 30% FiO2. No fevers overnight, WBC uptrending from 12 to 14.8, hemoglobin decreased from 8.5 to 7.2. CHEM panel unremarkable, repeat blood culture from 08/06 no growth to date. Spoke to son, Rashel Oh, over the phone and goals of care discussion took place in morning with social organization professor present. Clinical status, current treatment, and prognosis were discussed at length with son and given options to continue treatment or to transition to comfort care. Decision was made to transition to comfort care and spoke to attending in subacute and will discharge back today with current measures and will be addressed by subacute. Please see discharge summary for details. Exam Vital Signs Temp Pulse Resp BP Pulse Ox O2 Del Method O2 Flow Rate 97.5 F 67 15 143/77 H 100 Mechanical Ventilation 4 08/09/24 07:59 08/09/24 09:02 08/09/24 07:59 08/09/24 09:02 08/09/24 07:59 08/09/24 07:59 08/09/24 07:59 FiO2 30 08/09/24 07:59 Narrative Exam General: wakes up to voice and other stimuli, does not appear alert, no acute distress HEENT: NC/AT, mucous membranes moist, bilateral sclera anicteric Cardiovascular: regular rate and rhythm, S1/S2 present, no murmurs appreciated Pulmonary: previous Pleurx catheter site bandaged; coarse lung sounds in upper airways, no crackles or wheezing appreciated Abdominal: soft, non-tender, non-distended, no rebound/guarding, normal bowel sounds present Musculoskeletal: 1+ pitting lower extremity edema Skin: warm and dry, intact, no rashes Objective Labs 08/09/24 05:03 08/09/24 05:03 Labs: Laboratory Results - last 24 hr 08/08/24 08/09/24 21:04 05:03 WBC 14.8 H RBC 2.47 L Hgb 7.2 L Hct 22.4 L MCV 91 MCH 29.1 MCHC 32.1 RDW Std Deviation 54.4 H Plt Count 246 Neut % (Auto) 80 Lymph % (Auto) 9 L Wolfe % (Auto) 6 Eos % (Auto) 4 Baso % (Auto) 0 Neut # (Auto) 11.8 H Lymph # (Auto) 1.3 Wolfe # (Auto) 0.8 Eos # (Auto) 0.6 H Baso # (Auto) 0.0 Immature Gran # (Auto) 0.23 H Absolute Nucleated RBC 0.00 Immature Gran % 2 H Nucleated RBC % 0 Sodium 141 Potassium 4.3 Chloride 103 Carbon Dioxide 28.0 Anion Gap 10 BUN 30 H Creatinine 0.8 Estim Creat Clear Calc 40.2 L eGFR > 60 BUN/Creatinine Ratio 38 H Glucose 163 H Calculated Osmolality 291 Calcium 7.3 L Corrected Calcium 8.5 Total Bilirubin 0.3 AST 16 ALT 20 Alkaline Phosphatase 67 Total Protein 5.7 Albumin 2.5 L Globulin 3.2 Albumin/Globulin Ratio 0.8 L Vancomycin Trough 14.9 H ABG Interpretation ABG results: 08/03/24 14:27 ABG pH 7.44 ABG pCO2 43 ABG pO2 87 ABG HCO3 30 H ABG O2 Saturation 98 ABG Base Excess 5 H Quality Measures Quality Measures none Advance care planning discussed with:: patient and child Assessment & Plan Assessment Current Active Medications: Generic Name Dose Route Start Last Admin Trade Name Freq PRN Reason Stop Dose Admin Acetaminophen 650 mg 08/03/24 19:25 Acetaminophen 325 Mg Tablet PO 09/02/24 19:24 Q6H PRN Fever >101.5 Amiodarone HCl 200 mg 08/04/24 09:00 08/09/24 09:00 Amiodarone Hcl 200 Mg Tablet GT 09/03/24 08:59 200 mg DAILY AMARJIT Administration Amlodipine Besylate 10 mg 08/04/24 09:00 08/09/24 09:02 Amlodipine Besylate 5 Mg Tablet GT 09/03/24 08:59 10 mg QDAY AMARJIT Administration Apixaban 2.5 mg 08/06/24 21:00 08/09/24 09:01 Apixaban 2.5 Mg Tablet GT 09/05/24 20:59 2.5 mg BID AMARJIT Administration Ascorbic Acid 500 mg 08/03/24 21:00 08/09/24 09:02 Ascorbic Acid 250 Mg Tablet GT 09/02/24 20:59 500 mg BID AMARJIT Administration Atorvastatin Calcium 80 mg 08/03/24 21:00 08/08/24 20:54 Atorvastatin Calcium 20 Mg Tablet GT 09/02/24 20:59 80 mg HS AMARJIT Administration Dextrose 25 ml 08/03/24 20:28 Dextrose 50%-Water Inj 50 Ml Syringe IV 09/02/24 20:27 Q15MIN PRN BG 50-70 responsive npo pt Dextrose 50 ml 08/03/24 20:28 Dextrose 50%-Water Inj 50 Ml Syringe IV 09/02/24 20:27 Q15MIN PRN BG <50 OR BG <70 & pt unresponsive Glucagon 1 mg 08/03/24 20:28 Glucagon Inj 1 Mg Vial IM Q15MIN PRN BG <70, and no IV access Piperacillin/Tazobactam/Dextrose 3.375 gm in 50 mls @ 12.5 mls/hr 08/04/24 06:00 08/09/24 05:19 Zosyn IV 08/11/24 05:59 12.5 mls/hr Q8HR AMARJIT Administration Protocol Vancomycin/Sodium Chloride 100 mls @ 120 mls/hr 08/07/24 10:00 08/08/24 22:00 Vancomycin/Ns 500 Mg Ivpb IV 08/14/24 09:59 120 mls/hr Q12HR@1000,2200 AMARJIT Administration Protocol Insulin Human Lispro 0 unit 08/05/24 00:00 08/09/24 05:19 Insulin Lispro (Admelog) 1 Unit/0.01 Ml Unit SC 09/04/24 00:00 1 unit Q6HR AMARJIT Administration Protocol Multivitamins/Minerals 15 ml 08/05/24 09:00 08/09/24 09:00 Multivitamin 15 Ml Udc GT 09/04/24 08:59 15 ml QDAY COUNTS INCLUDE 234 BEDS AT THE [facility] Administration Pharmacy Consult 1 each 08/07/24 09:00 Vancomycin Pharmacy To Dose 1 Each Each IV 09/06/24 08:59 QDAY PRN CONSULT Sodium Hypochlorite 473 ml 08/06/24 21:00 08/09/24 09:03 Sod Hypochlorite 1/4 Str 473 Ml Btl IRRIG 09/05/24 20:59 1 applicatio BID AMARJIT Administration Zinc Sulfate 220 mg 08/05/24 09:00 08/09/24 09:00 Zinc Sulfate 220 Mg Capsule GT 09/04/24 08:59 220 mg QDAY AMARJIT Administration Plan 83-year-old female with past medical history of multiple strokes 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 #Leukocytosis secondary to UTI vs pleurx catheter site infection vs empyema WBC 22.3, UA with pyuria/hematuria, afebrile, procalcitonin 0.32. History of ESBL Klebsiella 05/2024. This admission, Pleurx catheter noted to have foul-smelling discharge around site and erythematous at base. Sample collected on 08/05 and sent to lab for culture and fluid analysis. However, pleural fluid too viscous for fluid analysis. Blood culture 08/03: 1/2 bottles Staph hominis Blood culture 08/06: NGTD Urine culture 08/04 positive for MRSA and ESBL Klebsiella pneumonia Catheter insertion site culture: positive for MRSA Pleural fluid culture: MRSA Doxycycline (08/06-08/07) - Zosyn 3.375 g IV q8h (08/04-) and vancomycin (08/07-) - Pleurex catheter taken out 08/06/2024 - Follow-up cultures - Goals of care discussion 08/09 with Rashel Her, patient's son, and decision was made to transition to comfort care; spoke to Dr. Hernandez and will discharge back to subacute with current measures per his instructions #Acute hypoxic respiratory failure, stable #Recurrent pleural effusions (suspicious for malignancy) #Chronic tracheostomy and PEG dependence Presented with RR 35, saturating 93% on 30% FiO2. CXR showed bilateral pleural-parenchymal disease with history of recurrent pleural effusions with prior PleurX catheter. Elevated BNP (1106), ABG pH 7.44/CO2 43/O2 87, cytology in 05/19/24 suspicious for malignancy. - Maintain oxygen supplementation to maintain SpO2 >92% - Monitor respiratory status and oxygen requirements closely - Plan for another [facility] discussion - Suction and trach care per protocol #Hypernatremia, resolved Na still 148 mmol/L, mild; possibly related to insensible losses or inadequate free water intake in PEG-dependent patient With goal Na of 140, free water deficit of 1.2 L - Water flushes 60 mL/h via PEG tube - Hold diuretics now to prevent further volume depletion - Monitor serum sodium daily - Assess fluid balance and adjust maintenance fluids or enteral regimen as needed #Atrial fibrillation Known history, sinus rhythm on EKG, [id number] Score = 6 (CHF, HTN, Age >75, Female, Prior CVA) - Continue amiodarone and restarted Eliquis 2.5 mg BID (age and body weight) #Hypertension BP better controlled today in the 130s over 60s. - Continue Amlodipine 10 mg GT daily #Type 2 Diabetes Mellitus Glucose 160 on admission, PEG-dependent; no DKA/HHS Last A1c 6.3% in 06/2024 - Maintain preprandial glucose <140 mg/dL, random <180 mg/dL - Nutrition support to coordinate with PEG feedings - Insulin sliding scale #Anemia Hgb 8.5 today, baseline 7-8 - Trend Hgb daily - Transfuse if Hgb less 7 Hospital management: Disposition: discharging back to subacute Diet: tube feeds (glucerna 1.2) Lines: PIV DVT prophylaxis: on eliquis GI prophylaxis: not indicated Hector: placed CODE STATUS: DNR ----- Plan discussed with attending physician Dr. Carolina Trejo MD PGY-1 Internal Medicine Attending Provider Attestation/Addendum I reviewed labs, imaging, EKG, home medications and prior available records. Face to face evaluation was performed by me. I have personally examined the patient and discussed assessment and plan with the IM team. I reviewed the resident note and agree with the plan with exceptions as below. Bilateral pleural effusions Hospital-acquired pneumonia Pleurx catheter infection by MRSA Chronic hypoxic respiratory failure History of CVA Atrial fibrillation with controlled ventricular rhythm Discussed goals of care with the son over the phone. Explained that putting the pleural catheter in place increases the risk of infection. She has significant effusions with possible empyema on top of possible underlying malignancy. Family is denying invasive treatment and having no pleural catheter in place for increased risk of recurrence of effusion. The son decided on transitioning to comfort care. Case was discussed with Dr. Richards who accepted the patient back to the subacute facility. Time spent is 40 minutes. More than 50% of the time was spent on patient education and coordination of care.
[2024-08-09] MEDS: VANCOMYCIN/NS 500 MG IVPB 100 ML 120 MG IV (09:20)
--- NOTE | 2024-08-09 11:10 | PD.RESDS ---
Planned Discharge Date 08/09/24 DS: Providers Provider Date of admission: 08/03/24 19:25 Primary care physician: Physician No Primary/Family Admitting Provider: Sreedhar Disla MD Attending Provider on Admission: Oliver Figueroa MD Consults: 08/03/24 13:27 Referral Respiratory Therapy Stat Comment: 08/04/24 08:53 Referral Registered Dietitian Routine Comment: Instructions: History of PEG tube, please assess tube feedings and H2O flushes 08/05/24 01:15 Referral Wound Care Routine Comment: WOUND ON SACRUM Attending Provider on DC: Woo Trejo MD Discharging Provider: Woo Trejo MD DS: Diagnosis Problem List Completed Was Problem List Reviewed/Reconciled?: Yes Hospital Course Hospital Course Hospital course: Monisha Guaman is an 83-year-old female with a history of multiple CVAs, seizure disorder, atrial fibrillation, hypertension, type 2 DM, tracheostomy, PEG tube, and recurrent pleural effusions. Patient is chronically nonverbal and was brought in from a subacute facility due to new-onset shortness of breath noticed earlier today. Nursing staff also observed a new facial droop. She is unable to provide further history due to her nonverbal status. Per chart review, history of recurrent pleural effusions (previously managed with thoracenteses and PleurX catheter placement). Pathology report from 05/19/24 was suspicious for malignancy, and after family discussion, further cancer workup and aggressive treatment were declined. Facility sent her to ER for further evaluation of the new symptoms. Monisha Guaman is an 83-year-old female with a history of multiple CVAs, seizure disorder, atrial fibrillation, hypertension, type 2 DM, tracheostomy, PEG tube, and recurrent pleural effusions. Patient is chronically nonverbal and was brought in from a subacute facility due to new-onset shortness of breath noticed earlier today. Nursing staff also observed a new facial droop. She is unable to provide further history due to her nonverbal status. Per chart review, history of recurrent pleural effusions (previously managed with thoracenteses and PleurX catheter placement). Pathology report from 05/19/24 was suspicious for malignancy, and after family discussion, further cancer workup and aggressive treatment were declined. Facility sent her to ER for further evaluation of the new symptoms. Diagnoses during admission: #Leukocytosis secondary to UTI vs pleurx catheter site infection vs empyema #Acute hypoxic respiratory failure, stable #Recurrent pleural effusions (suspicious for malignancy) #Chronic tracheostomy and PEG dependence #Hypernatremia, resolved #Atrial fibrillation #Hypertension #Type 2 Diabetes Mellitus #Anemia Discharge instructions: ? Decision made to transition to comfort care but will discharge to subacute with current measures ? Discharge back to subacute ? Follow instructions per attending, Dr. Hernandez ----- Plan discussed with attending physician Woo Trejo MD PGY-1 Internal Medicine Time Spent with Patient Time attestation: Total time spent providing and/or coordinating discharge services: Time spent: Greater than 30 minutes Exam Vital Signs Temp Pulse Resp BP Pulse Ox O2 Del Method O2 Flow Rate 97.5 F 67 15 143/77 H 100 Mechanical Ventilation 4 08/09/24 07:59 08/09/24 09:02 08/09/24 07:59 08/09/24 09:02 08/09/24 07:59 08/09/24 07:59 08/09/24 07:59 FiO2 30 08/09/24 08:00 Narrative Exam General: wakes up to voice and other stimuli, does not appear alert, no acute distress HEENT: NC/AT, mucous membranes moist, bilateral sclera anicteric Cardiovascular: regular rate and rhythm, S1/S2 present, no murmurs appreciated Pulmonary: previous Pleurx catheter site bandaged; coarse lung sounds in upper airways, no crackles or wheezing appreciated Abdominal: soft, non-tender, non-distended, no rebound/guarding, normal bowel sounds present Musculoskeletal: 1+ pitting lower extremity edema Skin: warm and dry, intact, no rashes Discharge Plan Plan Patient Disposition: er Assisted Acute Care Plan Goals: ? Decision made to transition to comfort care but will discharge to subacute with current measures ? Discharge back to subacute ? Follow instructions per attending, Dr. Hernandez Prescriptions/Referrals Prescriptions/Med Rec: New Zosyn in dextrose (iso-osm) 3.375 gram/50 mL Piggyback 3.375 g IV Q8HR 30 Days Qty: 3.375 0RF Eliquis 2.5 mg Tablet 2.5 mg G-tube BID 30 Days Qty: 60 0RF vancomycin in 0.9 % sodium chl 500 mg/100 mL Piggyback 500 ml IV Q12HR@1000,2200 30 Days Qty: 1 0RF Continued multivitamin Tablet 1 tab G-tube QDAY Label Comments: for supplement. atorvastatin 40 mg Tablet 80 mg G-tube HS Label Comments: hyperlipidemia sennosides [Senna Laxative] 8.6 mg Tablet 8.6 mg G-tube BID Label Comments: for constipation acetaminophen 325 mg Tablet 325 mg G-tube Q6HR PRN (Reason: Pain 1-6 (Mild-Mod) ipratropium-albuterol 0.5 mg-3 mg(2.5 mg base)/3 mL Solution For Nebulization 3 ml INH Q6HRRT polyethylene glycol 3350 17 gram Powder In Packet 17 g G-tube PRN PRN (Reason: No BM Per Bowel Management Protocol) Label Comments: Administer as needed if 2nd round bowel protocol ineffective. Rx Instructions: Mix with 4oz of water before giving. Hold tube feeding for 30 minutes after administration. Notify provider if no results from Miralax. amiodarone 200 mg Tablet 200 mg G-tube DAILY Label Comments: for Atrial Fibrillation (BBW) Rx Instructions: *Hold if HR less than 60. magnesium hydroxide [Milk of Magnesia] 400 mg/5 mL Suspension 30 ml G-tube PRN PRN (Reason: Constipation) Rx Instructions: CONC: 400MG/5ML ascorbic acid (vitamin C) 500 mg Tablet 500 mg G-tube BID Label Comments: for supplement. amlodipine 10 mg Tablet 10 mg G-tube QDAY Label Comments: for HTN Rx Instructions: Hold if SBP<110 or HR<60. bisacodyl [Dulcolax (bisacodyl)] 10 mg Suppository 10 mg SD PRN PRN (Reason: No BM Per Bowel Management Protocol) Rx Instructions: Administer as needed on 6th shift, if MOM ineffective. Novolin R Regular U100 Insulin 100 unit/mL Solution See Rx Instructions SCi Q6HR Label Comments: for DM Rx Instructions: 0-150=0 units, 151-200 =4 units, 201-250=6 units, 251-300= 8 units, 301-350=10 units, 351-400=12 units, >400=14 units then call MD Fleet Enema 19-7 gram/118 mL Enema 133 ml SD PRN PRN (Reason: No BM Per Bowel Management Protocol) Label Comments: If Dulcolax is ineffective on 3rd day / 7th shift, give Fleets enema per Bowel Management Protocol. Notify MD if no results from Enema. Ear Wax Removal Drops 6.5 % Drops 5 drp otic (ear) Q61D Label Comments: 5 drops per ear at first med pass of shift. Then irrigate ears with NS at next med pass of each shift x 4 days for wax build up. *Start on the of the month, every two months. Ear Wax Removal Drops 6.5 % Drops 5 drp otic (ear) Q61D Rx Instructions: 5 drops per ear at first med pass of shift. Then irrigate ears with NS at next med pass of each shift x 4 days for wax build up. *Start on the of the month, every two months. Ear Wax Removal Drops 6.5 % Drops 5 drp otic (ear) Q61D Label Comments: 5 drops per ear at first med pass of shift. Then irrigate ears with NS at next med pass of each shift x 4 days for wax build up. *Start on the of the month, every two months. Ear Wax Removal Drops 6.5 % Drops 5 drp otic (ear) Q61D Rx Instructions: 5 drops per ear at first med pass of shift. Then irrigate ears with NS at next med pass of each shift x 4 days for wax build up. *Start on the of the month, every two months. Ear Wax Removal Drops 6.5 % Drops 5 drp otic (ear) Q61D Label Comments: 5 drops per ear at first med pass of shift. Then irrigate ears with NS at next med pass of each shift x 4 days for wax build up. *Start on the of the month, every two months. Ear Wax Removal Drops 6.5 % Drops 5 drp otic (ear) Q61D Label Comments: 5 drops per ear at first med pass of shift. Then irrigate ears with NS at next med pass of each shift x 4 days for wax build up. *Start on the of the month, every two months. Ear Wax Removal Drops 6.5 % Drops 5 drp otic (ear) Q61D Rx Instructions: 5 drops per ear at first med pass of shift. Then irrigate ears with NS at next med pass of each shift x 4 days for wax build up. *Start on the of the month, every two months. Ear Wax Removal Drops 6.5 % Drops 5 drp otic (ear) Q61D Label Comments: 5 drops per ear at first med pass of shift. Then irrigate ears with NS at next med pass of each shift x 4 days for wax build up. *Start on the of the month, every two months. furosemide 20 mg Tablet 20 mg G-tube QDAY Label Comments: For Edema (BBW) Rx Instructions: Re-eval in 30 days calcium carbonate-vitamin D3 [Oyster Shell Calcium-Vit D3] 500 mg-5 mcg (200 unit) Tablet 1 ea G-tube QDAY Label Comments: for supplement No Action piperacillin-tazobactam 3.375 gram recon soln 3.375 g IV Q8HR 30 Days 0RF Rx Instructions: Every 8 hours for 30 days for Klebsiella pneumoniae in urine Non Formulary Medication 500 ea IV Q12HR 30 Days 0RF Label Comments: MEDICATION NOT ON FORMULARY: DRUG NAME HERE: Vancomycin in 0.9% Sodium Chloride DIRECTIONS FOR USE HERE: 500mg/100mL IV [id number] for 30days for MRSA in pleural fluid, Pleurx cath tip and in urine Eliquis 2.5 mg tablet 2.5 mg G-tube BID 7 Days Qty: 0 0RF Rx Instructions: For 7 days for DVT prophylaxis, re-eval. Referrals: No Primary/Family,Physician [Primary Care Provider] - Patient/Caregiver Discharge Instructions Print Language: [employer] Stand Alone Forms: Rani Award Info., Patient Portal Info Letter Discharge Order Discharge Orders: Discharge (Routine); Ordered 08/09/24 Ordered By: Woo Trejo Quality Discharge Quality Measures VTE prophylaxis and comfort care/end of life MD Attestestation MD Attestation I reviewed labs, imaging, EKG, home medications and prior available records. Face to face evaluation was performed by me. I have personally examined the patient and discussed assessment and plan with the IM team. I reviewed the resident note and agree with the plan with exceptions as below. Bilateral pleural effusions Hospital-acquired pneumonia Pleurx catheter infection by MRSA Chronic hypoxic respiratory failure History of CVA Atrial fibrillation with controlled ventricular rhythm Discussed goals of care with the son over the phone. Explained that putting the pleural catheter in place increases the risk of infection. She has significant effusions with possible empyema on top of possible underlying malignancy. Family is denying invasive treatment and having no pleural catheter in place for increased risk of recurrence of effusion. The son decided on transitioning to comfort care. Case was discussed with Dr. Richards who accepted the patient back to the subacute facility. Time spent is 40 minutes. More than 50% of the time was spent on patient education and coordination of care.
--- NOTE | 2024-08-09 11:20 | PC.SS ---
Goals of care discussion held via phone with patient?s son and surrogate medical decision maker, Rashel Oh .? Discussion facilitated by Dr. Trejo.? In attendance were Mignon Toscano OPERATIONS TEAM LEADER and undersigned.? Medical team provided overview on patient?s condition, treatment plan and prognosis.? Discussed options available: treatment with limited options or comfort care.? Due patient?s current infection, continued fluid buildup and possible malignancy; patient?s son, Rashel Oh; has chosen to initiate comfort care on behalf of the patient.? ASSOCIATE PROGRAMMER confirmed with patient?s son plan to transition the patient back to sub-acute with comfort care measures.? Patient?s verbally acknowledged plan.? ASSOCIATE PROGRAMMER updated sub-acute unit on results of goals of care discussion.? Sub-acute staff requested for medical team to contact Dr. Chapman at .? ASSOCIATE PROGRAMMER updated medical team of request.? ASSOCIATE PROGRAMMER updated bedside nurse and charge nurse.? Plan will be to transition the patient to sub-acute unit with comfort care measures.
--- NOTE | 2024-08-09 13:16 | PC.SS ---
Update: Plan is to d/c the patient to sub-acute today.
== END 2024-08-09 14:40 | DRG 208 ==
LOC: SERX 19:14 → SERHOLD 21:02 → S2NX 08-04 20:59
PROVIDERS: Student in an Organized Health Care Education/Training Program; Admitting Provider Internal Medicine; Emergency Provider Family Medicine; Visit Provider Student in an Organized Health Care Education/Training Program
DX: J96.01 Acute respiratory failure with hypoxia (principal); J18.9 Pneumonia, unspecified organism; I50.32 Chronic diastolic (congestive) heart failure; E87.0 Hyperosmolality and hypernatremia; N39.0 Urinary tract infection, site not specified; E87.1 Hypo-osmolality and hyponatremia; Z16.12 Extended spectrum beta lactamase (ESBL) resistance; G40.909 Epilepsy, unspecified, not intractable, without status epilepticus; E86.0 Dehydration; E87.5 Hyperkalemia; I48.91 Unspecified atrial fibrillation; I11.0 Hypertensive heart disease with heart failure; B96.1 Klebsiella pneumoniae [K. pneumoniae] as the cause of diseases classified elsewhere; D64.9 Anemia, unspecified; E11.9 Type 2 diabetes mellitus without complications; R29.810 Facial weakness; J96.21 Acute and chronic respiratory failure with hypoxia; B95.62 Methicillin resistant Staphylococcus aureus infection as the cause of diseases classified elsewhere; Z86.73 Personal history of transient ischemic attack (TIA), and cerebral infarction without residual deficits; Z93.1 Gastrostomy status; Z66 Do not resuscitate; Y95 Nosocomial condition; Z93.0 Tracheostomy status; Z51.5 Encounter for palliative care; Z79.01 Long term (current) use of anticoagulants; Z86.19 Personal history of other infectious and parasitic diseases; Z79.899 Other long term (current) drug therapy
CPT/HCPCS: 36415; 36600; 70450; 71045; 80048; 80053; 80202; 80307; 81001; 82150; 82803; 82945; 83605; 83615; 83735; 83880; 84100; 84145; 84157; 84484; 85025; 85610; 85730; 87040; 87070; 87075; 87077; 87081; 87086; 87186; 87205; 87811; 89051; 93005; 94003; 94640; 96361; 96365; 96366; 96367; 96372; 96374; 96375; 99285; A9270; J0696; J1100; J1644; J1815; J1938; J2543; J3370; J3475; J3490; J7030